=== PATIENT | female | born 1945 | race Caucasian/White ===

== ENCOUNTER → 2016-11-14 | Outpatient (CLI) | payer MEDICARE, OTHER ==
--- NOTE | 2016-11-14 12:54 | MR ---
EXAMINATION TYPE: MR cervical spine wo con DATE OF EXAM: 11/14/2016 12:01 PM COMPARISON: 05/07/2012 HISTORY: Cervical Spondylosis, pain TECHNIQUE: Multiplanar, multisequence images of the cervical spine were acquired. C2-C3: No evidence for degenerative disc disease. No disc bulge/herniation or protrusion. No Canal stenosis. Foramina are patent bilaterally. C3-C4: No focal disc herniation or significant disc bulge is evident. There is disc space narrowing. No spinal canal stenosis present. Bilateral mild foraminal narrowing is present C4-C5: Mild foraminal narrowing is present. Some endplate changes are present. There is narrowing of the disc space. No spinal canal stenosis present. C5-C6: Disc base narrowing is present. Mild narrowing of the bilateral foramen is present. No AP spin al canal stenosis present. Cord contact is not identified. C6-C7: No focal disc herniation or significant disc bulge is evident. No spinal canal stenosis or nicolas ral foraminal stenosis present. There is loss of disc height at this level. C7-T1: Bilateral severe foraminal narrowing from uncovertebral joint hypertrophy is present. Endplate mild spurring is anterior thecal sac flattening. This comes in close approximation with spinal cord. No cord contact stenosis is evident. There is loss of disc height at this level. There is a slight exaggeration of the cervical lordosis at C5-C6. Anterolisthesis of C6 on C7 which a ppears to be a grade 1 is present. Disc uncovering at C6-7 is present. Findings appear stable from th e comparison study. IMPRESSION: 1. Multilevel degenerative disc changes. 2. Multilevel foraminal narrowing, greatest and severe at bilateral C7-T1. 3. Grade 1 spondylolisthesis of C6 anteriorly on C7.
--- NOTE | 2016-11-14 14:49 | XR ---
EXAMINATION TYPE: XR cervical spine limited DATE OF EXAM: 11/14/2016 12:22 PM COMPARISON: NONE HISTORY: Pain TECHNIQUE: 3 views are submitted. Lateral, extension lateral and flexion lateral views submitted. FINDINGS: The odontoid is intact. There are no compression deformities. The prevertebral soft tissue structur es are within normal limits. There is diffuse severe osteopenia. There are severe degenerative disc disease at levels C3-T1. There is a 4 mm anterolisthesis of C6 on C7 and 2 mm retrolisthesis of C4 on C5 and C5 and C6. Facet arthropathy at all levels. Flexion view demonstrates anterolisthesis remaining 4 mm. Extension view is limited assessment due to technique and soft tissue overlap. IMPRESSION: 1. Severe multilevel degenerative disc disease with anterolisthesis of C6 on C7 of 4 mm which appears stable on flexion. Extension view limited.
== END | disposition home or self-care (01) ==
LOC: RADMRIMAIN 11:13
DX: M50.30 Other cervical disc degeneration, unspecified cervical region (principal); M43.12 Spondylolisthesis, cervical region; M48.03 Spinal stenosis, cervicothoracic region; M47.22 Other spondylosis with radiculopathy, cervical region; M47.21 Other spondylosis with radiculopathy, occipito-atlanto-axial region
CPT/HCPCS: 72040; 72141

== ENCOUNTER → 2017-01-10 | Outpatient (CLI) | payer MEDICARE, OTHER ==
--- NOTE | 2017-01-10 16:51 | XR ---
EXAMINATION TYPE: XR cervical spine limited DATE OF EXAM: 01/10/2017 4:38 PM COMPARISON: 11/14/2016 HISTORY: Fusion surgery TECHNIQUE: 4 views FINDINGS: There are rods and screws fusing posteriorly the occipital bone with the upper cervical spi ne to C4 level. There is 8mm anterior subluxation of C6 in relation to C7. There is multilevel spondy losis. IMPRESSION: Posterior fusion surgery. There is a degenerative second-degree C6-7 spondylolisthesis th at is stable compared to last exam.
== END | disposition home or self-care (01) ==
LOC: RADXRMAIN 16:05
DX: M43.12 Spondylolisthesis, cervical region (principal); Z98.1 Arthrodesis status
CPT/HCPCS: 72040

== ENCOUNTER → 2017-04-14 | Outpatient (CLI) | payer MEDICARE, OTHER ==
--- NOTE | 2017-04-14 12:12 | XR ---
Cervical spine HISTORY: Cervical spondylosis, M 47.22 2 views of the cervical spine correlated prior exam 01/10/2017 Posterior fusion changes in the skull base through C5 again noted. Bone mineralization is reduced. Al ignment is stable. Loss of disc height greatest at C3-4, C4-5 and C5-6 with associated spondylosis as on prior exam. Anterolisthesis grade 1 to grade 2 present at C6-7 as on prior exam. The dens is poor ly localized, difficult to exclude a fracture at the base of the dens, previously identified erosions poorly defined.. C7-T1 shows loss of disc height and spondylosis. There is multilevel facet arthrop athy. Vascular calcifications noted incidentally. Lung apices are unchanged. Prevertebral soft tissue s are stable. Postop change noted to the right shoulder on prior exam. IMPRESSION: No interval change is evident. Limitations as described.
== END | disposition home or self-care (01) ==
LOC: RADXRMAIN 09:21
DX: M48.02 Spinal stenosis, cervical region (principal)
CPT/HCPCS: 72040

== ENCOUNTER → 2017-07-28 | Outpatient (CLI) | payer MEDICARE, OTHER ==
--- NOTE | 2017-07-28 15:43 | XR ---
EXAMINATION TYPE: XR cervical spine limited DATE OF EXAM: 07/28/2017 COMPARISON: 04/14/2017 HISTORY: Postop TECHNIQUE: 3 views submitted FINDINGS: Postsurgical changes suggestive of posterior fusion are stable. Severe multilevel degenerat dao disc disease again noted with diffuse osteopenia. posterior spondylosis at the postsurgical levels noted with retrolisthesis of C4 on C5 which appears stable. Calcifications in the soft tissues are likely related carotid artery. There is a stable anterolisthesis of C6 on C7 measuring approximately 4 mm. Severe degenerative disc disease C7-T1. Overall alignment appears stable from the previous exam. IMPRESSION: 1. Stable postsurgical changes with anterolisthesis of C6 on C7 and multilevel degenerative disc dise ase
== END | disposition home or self-care (01) ==
LOC: RADXRMAIN 13:37
DX: M43.12 Spondylolisthesis, cervical region (principal); M50.13 Cervical disc disorder with radiculopathy, cervicothoracic region; Z98.890 Other specified postprocedural states
CPT/HCPCS: 72040

== ENCOUNTER 2017-09-15 10:16 | Inpatient (IN) | payer MEDICARE, OTHER ==
--- NOTE | 2017-09-15 11:37 | ED ---
General Adult HPI - General Chief complaint: Shortness of Breath Stated complaint: DANIEL Time Seen by Provider: 09/15/17 10:30 Source: patient, RN notes reviewed Mode of arrival: wheelchair Limitations: no limitations - History of Present Illness Initial comments: This is a 72-year-old female presents emergency department stating that she has slight valgus and her shortness of breath has been getting worse over the last 3 weeks but today she found it very difficult to walk from her apartment to her car. Patient states she has no chest pain or palpitations. Patient states she had a transesophageal echo within the last week but has not got the results yet. Patient denies any fever chills but she is complaining of an occasional cough. Patient denies any abdominal pain patient denies nausea vomiting diarrhea. Patient denies any lightheadedness dizziness or near syncopal episode. Patient denies any calf pain or leg swelling - Related Data Home Medications Medication Instructions Recorded Confirmed ALPRAZolam [Xanax] 0.25 mg PO Q8H PRN 01/22/14 09/15/17 Ascorbic Acid [Vitamin C] 500 mg PO DAILY 01/22/14 09/15/17 Cholecalciferol [Vitamin D3] 2,000 units PO DAILY 01/22/14 09/15/17 Furosemide [Lasix] 20 mg PO DAILY 06/18/16 09/15/17 Naproxen [Naprosyn] 500 mg PO Q12HR PRN 07/15/16 09/15/17 Albuterol Sulfate [Proair Hfa] 1 - 2 puff INHALATION RT-Q6H PRN 09/15/17 Fluticasone/Salmeterol [Advair Hfa 1 - 2 puff INHALATION RT-BID 09/15/17 230-21 Mcg Inhaler] HYDROcodone/APAP 10-325MG [[place] 1 tab PO Q6H PRN 09/15/17 09/15/17 10-325] Levothyroxine Sodium [Synthroid] 175 mcg PO DAILY 09/15/17 09/15/17 Allergies Allergy/AdvReac Type Severity Reaction Status Date / Time lisinopril Allergy Unknown Verified 09/15/17 11:06 Review of Systems ROS Statement: Those systems with pertinent positive or pertinent negative responses have been documented in the HPI. ROS Other: All systems not noted in ROS Statement are negative. Past Medical History Past Medical History: COPD, Osteoarthritis (OA), Thyroid Disorder Additional Past Medical History / Comment(s): kidney stones, heart murmur ,hx. diverticulitis. History of Any Multi-Drug Resistant Organisms: None Reported Past Surgical History: Hysterectomy, Joint Replacement, Orthopedic Surgery Additional Past Surgical History / Comment(s): ti knees and lt hip replacements , goiter removed 1963, partial thyroidectomy, cataracts removed, REVERSE TOTAL RIGHT SHOULDER; Rotator cuff R shoulder neck sure Past Anesthesia/Blood Transfusion Reactions: No Reported Reaction Past Psychological History: Anxiety Smoking Status: Former smoker Past Alcohol Use History: Occasional Past Drug Use History: None Reported - Past Family History Father Additional Family Medical History / Comment(s): in his 80's of a mi Mother Additional Family Medical History / Comment(s): age 88 in jail pt not sure what she from. hx smoking. General Exam - General Exam Comments Initial Comments: GENERAL: Patient is well-developed and well-nourished. Patient is nontoxic and well- hydrated and is in mild distress. ENT: Neck is soft and supple. No significant lymphadenopathy is noted. Oropharynx is clear. Moist mucous membranes. Neck has full range of motion without eliciting any pain. EYES: The sclera were anicteric and conjunctiva were pink and moist. Extraocular movements were intact and pupils were equal round and reactive to light. Eyelids were unremarkable. PULMONARY: Unlabored respirations. Good breath sounds bilaterally. No audible rales rhonchi or wheezing was noted. CARDIOVASCULAR: There is a regular rate and rhythm patient has a 3/6 murmur ABDOMEN: Soft and nontender with normal bowel sounds. No palpable organomegaly was noted. There is no palpable pulsatile mass. SKIN: Skin is clear with no lesions or rashes and otherwise unremarkable. NEUROLOGIC: Patient is alert and oriented x3. Cranial nerves II through XII are grossly intact. Motor and sensory are also intact. Normal speech, volume and content. Symmetrical smile MUSCULOSKELETAL: Normal extremities with adequate strength and full range of motion. No lower extremity swelling or edema. No calf tenderness. LYMPHATICS: No significant lymphadenopathy is noted PSYCHIATRIC: Normal psychiatric evaluation. Normal interpersonal interactions appears functionally intact in deals appropriately with others. No signs of depression. No signs of anxiety. Limitations: no limitations Course Vital Signs 09/15/17 09/15/17 09/15/17 10:29 11:30 11:54 Temperature 97.2 F L Pulse Rate 106 H 98 Respiratory 18 16 18 Rate Blood Pressure 133/91 109/60 O2 Sat by Pulse 95 100 Oximetry 09/15/17 12:49 Temperature Pulse Rate 98 Respiratory 20 Rate Blood Pressure 114/58 O2 Sat by Pulse 98 Oximetry Medical Decision Making - Medical Decision Making EKG shows sinus tachycardia with occasional PVC at 102 bpm HI interval is 176 QRS is 86 QT interval 394 QTC is 413. Patient's EKG shows no ST segment elevation or depression or T-wave abnormalities noted Chest x-ray showed pulmonary edema. Gave the patient Lasix and Nitropaste. I spoke with Dr. Olson he agreed to admit the patient admitted the patient I wrote admitting orders. I continue the Lasix Nitropaste on the floor. I consult to cardiology. - Lab Data Result diagrams: 09/15/17 11:40 09/15/17 11:40 Lab Results 09/15/17 09/15/17 09/15/17 Range/Units 11:40 11:40 11:40 WBC 9.8 (3.8-10.6) k/uL RBC 3.77 L (3.80-5.40) m/uL Hgb 10.1 L (11.4-16.0) gm/dL Hct 33.0 L (34.0-46.0) % MCV 87.5 (80.0-100.0) fL MCH 26.8 (25.0-35.0) pg MCHC 30.6 L (31.0-37.0) g/dL RDW 15.9 H (11.5-15.5) % Plt Count 283 (150-450) k/uL Neutrophils % 80 % Lymphocytes % 12 % Monocytes % 4 % Eosinophils % 1 % Basophils % 1 % Neutrophils # 7.8 H (1.3-7.7) k/uL Lymphocytes # 1.2 (1.0-4.8) k/uL Monocytes # 0.4 (0-1.0) k/uL Eosinophils # 0.1 (0-0.7) k/uL Basophils # 0.1 (0-0.2) k/uL Hypochromasia Moderate PT (9.0-12.0) sec INR (<1.2) APTT (22.0-30.0) sec Sodium 140 (137-145) mmol/L Potassium 4.3 (3.5-5.1) mmol/L Chloride 104 (98-107) mmol/L Carbon Dioxide 25 (22-30) mmol/L Anion Gap 11 mmol/L BUN 15 (7-17) mg/dL Creatinine 0.52 (0.52-1.04) mg/dL Est GFR (MDRD) Af Amer >60 (>60 ml/min/1.73 sqM) Est GFR (MDRD) Non-Af >60 (>60 ml/min/1.73 sqM) Glucose 121 H (74-99) mg/dL Calcium 8.9 (8.4-10.2) mg/dL Magnesium 2.0 (1.6-2.3) mg/dL Total Bilirubin 0.6 (0.2-1.3) mg/dL AST 52 H (14-36) U/L ALT 59 H (9-52) U/L Alkaline Phosphatase 99 (38-126) U/L Total Creatine Kinase 57 (30-135) U/L CK-MB (CK-2) 1.4 (0.0-2.4) ng/mL CK-MB (CK-2) Rel Index 2.5 Troponin I 0.033 (0.000-0.034) ng/mL Total Protein 6.4 (6.3-8.2) g/dL Albumin 3.5 (3.5-5.0) g/dL 09/15/17 Range/Units 11:40 WBC (3.8-10.6) k/uL RBC (3.80-5.40) m/uL Hgb (11.4-16.0) gm/dL Hct (34.0-46.0) % MCV (80.0-100.0) fL MCH (25.0-35.0) pg MCHC (31.0-37.0) g/dL RDW (11.5-15.5) % Plt Count (150-450) k/uL Neutrophils % % Lymphocytes % % Monocytes % % Eosinophils % % Basophils % % Neutrophils # (1.3-7.7) k/uL Lymphocytes # (1.0-4.8) k/uL Monocytes # (0-1.0) k/uL Eosinophils # (0-0.7) k/uL Basophils # (0-0.2) k/uL Hypochromasia PT 10.5 (9.0-12.0) sec INR 1.1 (<1.2) APTT 22.6 (22.0-30.0) sec Sodium (137-145) mmol/L Potassium (3.5-5.1) mmol/L Chloride (98-107) mmol/L Carbon Dioxide (22-30) mmol/L Anion Gap mmol/L BUN (7-17) mg/dL Creatinine (0.52-1.04) mg/dL Est GFR (MDRD) Af Amer (>60 ml/min/1.73 sqM) Est GFR (MDRD) Non-Af (>60 ml/min/1.73 sqM) Glucose (74-99) mg/dL Calcium (8.4-10.2) mg/dL Magnesium (1.6-2.3) mg/dL Total Bilirubin (0.2-1.3) mg/dL AST (14-36) U/L ALT (9-52) U/L Alkaline Phosphatase (38-126) U/L Total Creatine Kinase (30-135) U/L CK-MB (CK-2) (0.0-2.4) ng/mL CK-MB (CK-2) Rel Index Troponin I (0.000-0.034) ng/mL Total Protein (6.3-8.2) g/dL Albumin (3.5-5.0) g/dL Critical Care Time Critical Care Time: Yes Total Critical Care Time: 35 Disposition Clinical Impression: Acute pulmonary edema Disposition: ADMITTED IP TO THIS HOSP Referrals: Olya Olson MD [Primary Care Provider] - 1-2 days Time of Disposition: 12:52
[2017-09-15 11:51] LABS: Basophils # (A) 0.1 k/uL (0-0.2); Basophils % (A) 1 %; Eosinophils # (A) 0.1 k/uL (0-0.7); Eosinophils % (A) 1 %; HGB 10.1 gm/dL (11.4-16.0); Hypochromasia Moderate; Lymphocytes # (A) 1.2 k/uL (1.0-4.8); Lymphocytes % (A) 12 %; MCH 26.8 pg (25.0-35.0); MCHC 30.6 g/dL (31.0-37.0); MCV 87.5 fL (80.0-100.0); Mean Platelet Volume 7.8; Monocytes # (A) 0.4 k/uL (0-1.0); Monocytes % (A) 4 %; Neutrophils # (A) 7.8 k/uL (1.3-7.7); Neutrophils % (A) 80 %; Platelet Count 283 k/uL (150-450); RBC 3.77 m/uL (3.80-5.40); RDW 15.9 % (11.5-15.5); WBC 9.8 k/uL (3.8-10.6)
[2017-09-15 12:03] LABS: ALT 59 U/L (9-52); AST 52 U/L (14-36); Albumin 3.5 g/dL (3.5-5.0); Alkaline Phosphatase 99 U/L (38-126); Anion Gap 11 mmol/L; Blood Urea Nitrogen 15 mg/dL (7-17); Calcium 8.9 mg/dL (8.4-10.2); Carbon Dioxide 25 mmol/L (22-30); Chloride 104 mmol/L (98-107); Glucose 121 mg/dL (74-99); Potassium 4.3 mmol/L (3.5-5.1); Sodium 140 mmol/L (137-145); Total Bilirubin 0.6 mg/dL (0.2-1.3); Total Protein 6.4 g/dL (6.3-8.2)
--- NOTE | 2017-09-15 12:14 | XR ---
EXAMINATION TYPE: XR chest 2V DATE OF EXAM: 09/15/2017 COMPARISON: 11/24/2014 HISTORY: Shortness of breath TECHNIQUE: Frontal and lateral views of the chest are obtained. FINDINGS: Scattered senescent parenchymal changes noted. Hyperinflation compatible with COPD. There is pulmonary venous congestion with cardiomegaly. Small pleural effusions noted. Mild scattered interstitial edema. Mediastinal structures are stable and grossly unremarkable. No evidence for hilar prominence. Degenerative changes dorsal spine. IMPRESSION: 1. Findings felt to reflect mild congestive failure.
[2017-09-15 12:25] LABS: INR 1.1 (<1.2); Partial Thromboplastin Time 22.6 sec (22.0-30.0); Prothrombin Time 10.5 sec (9.0-12.0)
[2017-09-15 12:33] LABS: Creatine Kinase MB 1.4 ng/mL (0.0-2.4); Troponin I 0.033 ng/mL (0.000-0.034)
[2017-09-15] MEDS ORDERED: FUROSEMIDE 10 MG/ML 2 ML VIAL IV STA (12:40)
[2017-09-15] MEDS ORDERED: NITROGLYCERIN OINT 1 INCH/GM PACKET TOPICAL STA (13:02)
[2017-09-15] MEDS ORDERED: NAPROXEN 250 MG TAB PO PRN (15:15)
[2017-09-15] MEDS ORDERED: ALPRAZolam 0.25 MG TAB PO PRN (15:15)
[2017-09-15] MEDS ORDERED: ALBUTEROL NEBULIZED 2.5 MG/3 ML INHALATION PRN (15:15)
--- NOTE | 2017-09-15 15:27 | P.HPIM ---
History of Present Illness H&P Date: 09/15/17 Chief Complaint: Worsening shortness of breath This is a 72-year-old female with a known past medical history of rheumatoid arthritis, COPD, hypothyroidism, diverticulosis and leaky heart valves. Patient presents to the emergency room with worsening shortness of breath. Patient reports having shortness of breath for the past 3 weeks and then with the last 2 days the shortness of breath has continued to worsen. She reports for walking from her house to her car she became severely short of breath dizzy and lightheaded said down in the car. Had to call her from the car to help her. Patient reports missing 2 days of her Lasix because of a busy schedule. Also she recently had a MATTHEW done out of [facility] by Dr. Vaughn this past and is unaware of the results. She was told that she has leaky heart valves and that was widely MATTHEW was done. Her brought her into the emergency room for further evaluation. Chest x-ray completed with findings that felt to reflect mild congestive heart failure. BNP was elevated in the 0. Patient started on Lasix 20 mg IV every 8 hours. EKG had shown sinus tachycardia with occasional PVCs heart rate of 102. Cardiology has been consulted. Patient reports a dry cough. She denies any chest pain, nausea or vomiting, fever, sweats, bowel movement changes or urinary symptoms. The patient does report occasional chills. Patient is requiring 2 L nasal cannula. She does not usually use oxygen at home. Patient was seen and examined in the emergency room Review of Systems Please refer to HPI otherwise unremarkable Past Medical History Past Medical History: COPD, Renal Disease, Rheumatoid Arthritis (RA), Thyroid Disorder Additional Past Medical History / Comment(s): Nephrolithiasis, rheumatoid arthritis several joints, cardiac murmur-recent MATTHEW and is to f/u with Dr. Vaughn on 09/17/17 for results, diverticular dx, recent UTI/completed ABX. History of Any Multi-Drug Resistant Organisms: None Reported Past Surgical History: Hysterectomy, Joint Replacement, Orthopedic Surgery Additional Past Surgical History / Comment(s): Recent MATTHEW, ti total knees arthroplasty,lt hip arthroplasty, goiter removed 1962, partial thyroidectomy, cataracts removed with lens implants, REVERSE TOTAL RIGHT SHOULDER; Rotator cuff R shoulder, cervical fusion/injections, colonoscopy. Past Anesthesia/Blood Transfusion Reactions: No Reported Reaction Smoking Status: Former smoker - Past Family History Father Additional Family Medical History / Comment(s): in his 80's of a mi Mother Additional Family Medical History / Comment(s): age 88 in detention pt not sure what she from. hx smoking. Medications and Allergies Home Medications Medication Instructions Recorded Confirmed Type ALPRAZolam [Xanax] 0.25 mg PO Q8H PRN 01/22/14 09/15/17 History Ascorbic Acid [Vitamin C] 500 mg PO DAILY 01/22/14 09/15/17 History Cholecalciferol [Vitamin D3] 2,000 units PO DAILY 01/22/14 09/15/17 History Furosemide [Lasix] 20 mg PO DAILY 06/18/16 09/15/17 History Naproxen [Naprosyn] 500 mg PO Q12HR PRN 07/15/16 09/15/17 History Albuterol Sulfate [Proair Hfa] 1 - 2 puff INHALATION RT-Q6H PRN 09/15/17 History Fluticasone/Salmeterol [Advair Hfa 1 - 2 puff INHALATION RT-BID 09/15/17 History 230-21 Mcg Inhaler] HYDROcodone/APAP 10-325MG [[place] 1 tab PO Q6H PRN 09/15/17 09/15/17 History 10-325] Levothyroxine Sodium [Synthroid] 175 mcg PO DAILY 09/15/17 09/15/17 History Allergies Allergy/AdvReac Type Severity Reaction Status Date / Time lisinopril Allergy Unknown Verified 09/15/17 11:06 Physical Exam Vitals: Vital Signs Temp Pulse Resp BP Pulse Ox 09/15/17 15:14 98.1 F 93 16 114/54 98 09/15/17 14:14 96 20 115/63 100 09/15/17 13:54 98 112/53 09/15/17 12:49 98 20 114/58 98 09/15/17 11:54 18 09/15/17 11:30 98 16 109/60 100 09/15/17 10:29 97.2 F L 106 H 18 133/91 95 Intake and Output 09/15/17 09/15/17 09/15/17 06:59 14:59 22:59 Other: Weight 61.235 kg Patient Weight 09/16/17 06:59 Weight 61.235 kg Head normocephalic Neck supple Lungs crackles at bases bilaterally Heart murmur present regular rate and rhythm S1-S2, no rub or gallop Abdomen is soft nontender nondistended positive bowel sounds no hepatosplenomegaly Extremities edema present bilaterally of the lower extremities Neuro alert and orientated to 3 Results CBC & Chem 7: 09/15/17 11:40 09/15/17 11:40 Labs: Abnormal Lab Results - Last 24 Hours (Table) 09/15/17 09/15/17 Range/Units 11:40 11:40 RBC 3.77 L (3.80-5.40) m/uL Hgb 10.1 L (11.4-16.0) gm/dL Hct 33.0 L (34.0-46.0) % MCHC 30.6 L (31.0-37.0) g/dL RDW 15.9 H (11.5-15.5) % Neutrophils # 7.8 H (1.3-7.7) k/uL Glucose 121 H (74-99) mg/dL AST 52 H (14-36) U/L ALT 59 H (9-52) U/L Thrombosis Risk Factor Assmnt - Choose All That Apply Any of the Below Risk Factors Present?: Yes Each Factor Represents 1 point: Abnormal pulmonary function (COPD), Obesity ( BMI >25) Other Risk Factors: Yes Each Risk Factor Represents 2 Points: Age 61-74 years Other congenital or acquired thrombophilia - If yes, enter type in comment: No Thrombosis Risk Factor Assessment Total Risk Factor Score: 4 Thrombosis Risk Factor Assessment Level: Moderate Risk Assessment and Plan Assessment: 1. Acute CHF exacerbation: Patient started on Lasix 20 mg IV every 8 hours. Cardiology consulted. Elevated BNP and chest x-ray showing mild congestive heart failure 2. Cardiac murmur followed by Dr. Vaughn out of [facility]. Patient had a recent MATTHEW on 3. COPD: Stable continue inhalers. No evidence of exacerbation 4. History of rheumatoid arthritis 5. Hypothyroidism continue Synthroid GI prophylaxis Pepcid and DVT prophylaxis subcu heparin Time with Patient: Greater than 30 (Greater than 50% of the total time spent in counseling and coordination of care.I performed an examination of the patient and discussed their management with the physician Visual Journalist. I have reviewed the Physician Visual Journalist's notes and agree with the documented findings and plan of care)
[2017-09-15] MEDS: NITROGLYCERIN OINT 1 INCH/GM PACKET TOPICAL SCH ×2 (18:00→23:39)
[2017-09-15] MEDS: HYDROcodone/APAP 10-325MG 1 EACH TAB PO PRN (18:48)
[2017-09-15] MEDS: SYMBICORT 160-4.5 MCG INHALER INHALATION SCH (20:25)
[2017-09-15] MEDS: FUROSEMIDE 10 MG/ML 4 ML VIAL IV SCH (21:06)
[2017-09-15] MEDS: HEPARIN SODIUM,PORCINE 5,000 UNIT/ML 1 ML VIAL SQ SCH (21:06)
[2017-09-16] MEDS: HYDROcodone/APAP 10-325MG 1 EACH TAB PO PRN ×4 (03:49→23:41)
[2017-09-16] MEDS: FUROSEMIDE 10 MG/ML 4 ML VIAL IV SCH (05:46)
[2017-09-16] MEDS: LEVOTHYROXINE 100 MCG TAB PO SCH (05:47)
[2017-09-16] MEDS: LEVOTHYROXINE 75 MCG TAB PO SCH (05:47)
[2017-09-16 06:13] LABS: Anisocytosis Slight; Basophils % (A) 1 %; Eosinophils # (A) 0.3 k/uL (0-0.7); Eosinophils % (A) 5 %; HCT 33.1 % (34.0-46.0); HGB 9.9 gm/dL (11.4-16.0); Hypochromasia Moderate; Lymphocytes # (A) 1.7 k/uL (1.0-4.8); Lymphocytes % (A) 25 %; MCH 26.4 pg (25.0-35.0); MCV 87.8 fL (80.0-100.0); Mean Platelet Volume 8.4; Monocytes # (A) 0.4 k/uL (0-1.0); Monocytes % (A) 6 %; Neutrophils # (A) 4.1 k/uL (1.3-7.7); Neutrophils % (A) 60 %; Platelet Count 268 k/uL (150-450); RBC 3.76 m/uL (3.80-5.40); RDW 17.3 % (11.5-15.5); WBC 6.8 k/uL (3.8-10.6)
[2017-09-16 06:39] LABS: ALT 53 U/L (9-52); AST 29 U/L (14-36); Albumin 3.2 g/dL (3.5-5.0); Alkaline Phosphatase 88 U/L (38-126); Anion Gap 9 mmol/L; Blood Urea Nitrogen 18 mg/dL (7-17); Calcium 8.8 mg/dL (8.4-10.2); Carbon Dioxide 29 mmol/L (22-30); Chloride 103 mmol/L (98-107); Glucose 103 mg/dL (74-99); Potassium 3.8 mmol/L (3.5-5.1); Sodium 141 mmol/L (137-145); Total Bilirubin 0.5 mg/dL (0.2-1.3)
[2017-09-16] MEDS: SYMBICORT 160-4.5 MCG INHALER INHALATION SCH ×2 (07:58→21:23)
--- NOTE | 2017-09-16 08:14 | P.CRDCN ---
History of Present Illness Consult date: 09/16/17 Requesting physician: Olya Olson Consult reason: congestive heart failure Chief complaint: Shortness of breath History of present illness: This is a pleasant 72-year-old female with history of COPD, asthma, rheumatoid arthritis, valvular heart disease, she follows with Dr. Vaughn in [place]. She states that on September 02 she had an echocardiogram performed , and on of last week she underwent a transesophageal echocardiographic study by Dr. Vaughn at [facility]. According to the patient she has been getting progressively more and more short of breath, she notices it mostly with exertion. She did have mild increase in peripheral edema recently as well. Patient also states that she has not been taking her Lasix as prescribed at home. She presents to the hospital She states her breathing got so bad she felt like she was going to pass out. At pressure on arrival here 133/90, heart rate 106, 95% on room air. EKG shows a sinus tachycardia with occasional PVC. Chest x-ray reflects mild congestive heart failure. Laboratory data was reviewed, hemoglobin on arrival 10.1, 9.9 this morning. White blood cell count 6.8. Platelet count is 268, sodium 141, potassium 3.8, BUN 18, creatinine 0.6. AST 52 on arrival, 29 this morning, ALT on arrival 59, 53 this morning. Troponin 0.033. BNP 4410. Patient was initiated on IV Lasix in the emergency room, weight it is down 2 kg today. At the time of my examination this morning, patient is sitting up in bed, states that her breathing is stable however just getting up to the commode she is quite short of breath. Past Medical History Past Medical History: COPD, Renal Disease, Rheumatoid Arthritis (RA), Thyroid Disorder Additional Past Medical History / Comment(s): Nephrolithiasis, rheumatoid arthritis several joints, cardiac murmur-recent MATTHEW and is to f/u with Dr. Vaughn on 09/17/17 for results, diverticular dx, recent UTI/completed ABX. History of Any Multi-Drug Resistant Organisms: None Reported Past Surgical History: Hysterectomy, Joint Replacement, Orthopedic Surgery Additional Past Surgical History / Comment(s): Recent MATTHEW, ti total knees arthroplasty,lt hip arthroplasty, goiter removed 1962, partial thyroidectomy, cataracts removed with lens implants, REVERSE TOTAL RIGHT SHOULDER; Rotator cuff R shoulder, cervical fusion/injections, colonoscopy. Past Anesthesia/Blood Transfusion Reactions: No Reported Reaction Smoking Status: Former smoker - Past Family History Father Additional Family Medical History / Comment(s): in his 80's of a mi Mother Additional Family Medical History / Comment(s): age 88 in correction pt not sure what she from. hx smoking. Medications and Allergies Home Medications Medication Instructions Recorded Confirmed Type ALPRAZolam [Xanax] 0.25 mg PO Q8H PRN 01/22/14 09/15/17 History Ascorbic Acid [Vitamin C] 500 mg PO DAILY 01/22/14 09/15/17 History Cholecalciferol [Vitamin D3] 2,000 units PO DAILY 01/22/14 09/15/17 History Furosemide [Lasix] 20 mg PO DAILY 06/18/16 09/15/17 History Naproxen [Naprosyn] 500 mg PO Q12HR PRN 07/15/16 09/15/17 History Albuterol Sulfate [Proair Hfa] 1 - 2 puff INHALATION RT-Q6H PRN 09/15/17 History Fluticasone/Salmeterol [Advair Hfa 1 - 2 puff INHALATION RT-BID 09/15/17 History 230-21 Mcg Inhaler] HYDROcodone/APAP 10-325MG [[place] 1 tab PO Q6H PRN 09/15/17 09/15/17 History 10-325] Levothyroxine Sodium [Synthroid] 175 mcg PO DAILY 09/15/17 09/15/17 History Allergies Allergy/AdvReac Type Severity Reaction Status Date / Time lisinopril Allergy Unknown Verified 09/15/17 11:06 Physical Exam Vitals: Vital Signs Temp Pulse Pulse Resp BP BP Pulse Ox 09/16/17 03:54 97.4 F L 93 16 117/56 98 09/16/17 00:00 94 18 86/54 96 09/15/17 20:00 98.7 F 94 18 102/58 96 09/15/17 18:19 97.1 F L 97 18 122/57 96 09/15/17 17:56 98.6 F 98 18 117/55 98 09/15/17 16:43 103 H 98/52 96 09/15/17 15:14 98.1 F 93 16 114/54 98 09/15/17 14:14 96 20 115/63 100 09/15/17 13:54 98 112/53 09/15/17 12:49 98 20 114/58 98 09/15/17 11:54 18 09/15/17 11:30 98 16 109/60 100 09/15/17 10:29 97.2 F L 106 H 18 133/91 95 Intake and Output 09/15/17 09/16/17 09/16/17 22:59 06:59 14:59 Other: # Voids 0 3 Weight 59.3 kg PHYSICAL EXAMINATION: HEENT: Head is atraumatic, normocephalic. Pupils equal, round. Neck is supple. There is no elevated jugular venous pressure. HEART EXAMINATION: Heart S1 S2 1 systolic ejection murmur is heard. CHEST EXAMINATION: Circumflex clear with mild diminished air entry to bilateral bases. ABDOMEN: Soft, nontender. Bowel sounds are heard. No organomegaly noted. EXTREMITIES:[ 2+ peripheral pulses with trace evidence of peripheral edema NEUROLOGIC patient is awake, alert and oriented -3. . Results 09/16/17 05:44 09/16/17 05:44 Cardiac Enzymes 09/15/17 09/15/17 09/16/17 Range/Units 11:40 11:40 05:44 AST 52 H 29 (14-36) U/L CK-MB (CK-2) 1.4 (0.0-2.4) ng/mL Troponin I 0.033 (0.000-0.034) ng/mL Coagulation 09/15/17 Range/Units 11:40 PT 10.5 (9.0-12.0) sec APTT 22.6 (22.0-30.0) sec CBC 09/15/17 09/16/17 Range/Units 11:40 05:44 WBC 9.8 6.8 (3.8-10.6) k/uL RBC 3.77 L 3.76 L (3.80-5.40) m/uL Hgb 10.1 L 9.9 L (11.4-16.0) gm/dL Hct 33.0 L 33.1 L (34.0-46.0) % Plt Count 283 268 (150-450) k/uL Comprehensive Metabolic Panel 09/15/17 09/16/17 Range/Units 11:40 05:44 Sodium 140 141 (137-145) mmol/L Potassium 4.3 3.8 (3.5-5.1) mmol/L Chloride 104 103 (98-107) mmol/L Carbon Dioxide 25 29 (22-30) mmol/L BUN 15 18 H (7-17) mg/dL Creatinine 0.52 0.60 (0.52-1.04) mg/dL Glucose 121 H 103 H (74-99) mg/dL Calcium 8.9 8.8 (8.4-10.2) mg/dL AST 52 H 29 (14-36) U/L ALT 59 H 53 H (9-52) U/L Alkaline Phosphatase 99 88 (38-126) U/L Total Protein 6.4 6.0 L (6.3-8.2) g/dL Albumin 3.5 3.2 L (3.5-5.0) g/dL Current Medications Generic Name Dose Route Start Last Admin Trade Name Freq PRN Reason Stop Dose Admin Hydrocodone Bitart/Acetaminophen 1 each 09/15/17 15:15 09/16/17 03:49 [place] 10 PO 1 each Q6H PRN Administration Moderate Pain Albuterol Sulfate 2.5 mg 09/15/17 15:15 Ventolin Nebulized INHALATION RT-Q6H PRN Shortness Of Breath Alprazolam 0.25 mg 09/15/17 15:15 Xanax PO Q8H PRN Anxiety Ascorbic Acid 500 mg 09/16/17 09:00 Vitamin C PO DAILY [facility] Budesonide/Formoterol Fumarate 2 puff 09/15/17 20:00 09/16/17 07:58 Symbicort 160-4.5 Mcg Inhaler INHALATION 2 puff RT-BID CARLOS Administration Cholecalciferol 2,000 unit 09/16/17 09:00 Vitamin D3 PO DAILY CARLOS Famotidine 20 mg 09/16/17 09:00 Pepcid PO DAILY CARLOS Furosemide 20 mg 09/15/17 21:00 09/16/17 05:46 Lasix IV 20 mg Q8H CARLOS Administration Heparin Sodium (Porcine) 5,000 unit 09/15/17 21:00 09/15/17 21:06 Heparin SQ 5,000 unit Q12HR CARLOS Administration Levothyroxine Sodium 100 mcg 09/16/17 06:30 09/16/17 05:47 Synthroid PO 100 mcg DAILY@0630 CARLOS Administration Levothyroxine Sodium 75 mcg 09/16/17 06:30 09/16/17 05:47 Synthroid PO 75 mcg DAILY@0630 CARLOS Administration Naproxen 500 mg 09/15/17 15:15 Naprosyn PO Q12HR PRN Mild Pain Nitroglycerin 1 inch 09/15/17 18:00 09/15/17 23:39 Nitro-Bid Oint TOPICAL Not Given QID CARLOS Intake and Output 09/15/17 09/16/17 09/16/17 22:59 06:59 14:59 Other: # Voids 0 3 Weight 59.3 kg 09/16/17 05:44 09/16/17 05:44 EKG Interpretations (text) EKG shows a sinus tachycardia with occasional PVC. Assessment and Plan Plan: Assessment and plan #1 Congestive heart failure, LV function unknown. Patient is currently on IV Lasix. #2 valvular heart disease, patient follows with Dr. Vaughn in [place]. She did have an echocardiogram with Doppler study performed on September 02, patient also states she underwent a MATTHEW on of last week, we will obtain records of both of these. #3 asthma #4 COPD #5 rheumatoid arthritis #6 hypothyroidism status post thyroidectomy Plan We will obtain copy of echocardiogram and MATTHEW which were recently performed by the patient's viscosity inspector at [facility]. Continue current dose of IV Lasix. Further recommendations to follow. DNP note has been reviewed, I agree with a documented findings and plan of care. Patient was seen and examined.
[2017-09-16] MEDS: NITROGLYCERIN OINT 1 INCH/GM PACKET TOPICAL SCH (08:48)
[2017-09-16] MEDS: CHOLECALCIFEROL 1,000 UNIT TAB PO SCH (08:48)
[2017-09-16] MEDS: ASCORBIC ACID 500 MG TAB PO SCH (08:48)
[2017-09-16] MEDS: FAMOTIDINE 20 MG TAB PO SCH (08:48)
[2017-09-16] MEDS: HEPARIN SODIUM,PORCINE 5,000 UNIT/ML 1 ML VIAL SQ SCH ×2 (08:48→20:29)
--- NOTE | 2017-09-16 09:35 | P.PN ---
Progress Note - Text This is an addendum to the dictated cardiology consultation. The patient has a known history of valvular disease who presents with symptoms progressive dyspnea. She underwent a transesophageal echocardiogram recently but the results are pending. She has no history of CAD and has underwent cardiac catheterization about [address] Vaughn and that was unremarkable. Yesterday she became quite dyspneic with minimal activity with dizziness. She has been under a lot of stress recently. Her physical examination showed few crackles in the lungs and she has a diastolic murmur at the aortic site with a holosystolic murmur in the apex and no evidence of peripheral edema. The patient will receive intravenous diuresis for 24 hours, I would add to her regimen a low dose losartan. I will try to obtain the results were prior workup , of note that she has been told in the past that she had a weak muscle of the heart. Depending on her progress further recommendations will be made. Thank you for this consult we will follow with you.
[2017-09-16] MEDS: LOSARTAN 25 MG TAB PO SCH (10:06)
[2017-09-16 10:26] VITALS: BMI 25.5
--- NOTE | 2017-09-16 10:41 | P.PN ---
Subjective Progress Note Date: 09/16/17 This is a 72-year-old female with a known past medical history of rheumatoid arthritis, COPD, hypothyroidism, diverticulosis and leaky heart valves. Patient presents to the emergency room with worsening shortness of breath. Patient reports having shortness of breath for the past 3 weeks and then with the last 2 days the shortness of breath has continued to worsen. She reports for walking from her house to her car she became severely short of breath dizzy and lightheaded said down in the car. Had to call her from the car to help her. Patient reports missing 2 days of her Lasix because of a busy schedule. Also she recently had a MATTHEW done out of [facility] by Dr. Vaughn this past and is unaware of the results. She was told that she has leaky heart valves and that was widely MATTHEW was done. Her brought her into the emergency room for further evaluation. Chest x-ray completed with findings that felt to reflect mild congestive heart failure. BNP was elevated in the 4410. Patient started on Lasix 20 mg IV every 8 hours. EKG had shown sinus tachycardia with occasional PVCs heart rate of 102. Cardiology has been consulted. Patient reports a dry cough. She denies any chest pain, nausea or vomiting, fever, sweats, bowel movement changes or urinary symptoms. The patient does report occasional chills. Patient is requiring 2 L nasal cannula. She does not usually use oxygen at home. Patient was seen and examined in the emergency room 09/16/2017 patient still having some shortness of breath with activity. Reported some improvement with the IV Lasix. She has been seen by cardiology. They're trying to obtain records from [facility]. Patient recently had MATTHEW and echo completed. She denies any chest pain, nausea or vomiting, bowel movement changes or any with urination Objective - Vital Signs Vital signs: Vital Signs Temp 98.2 F 09/16/17 08:00 Pulse 91 09/16/17 08:00 Resp 16 09/16/17 08:00 BP 105/47 09/16/17 08:00 Pulse Ox 98 09/16/17 08:01 Intake & Output 09/15/17 09/16/17 09/16/17 18:59 06:59 18:59 Intake Total 358 Output Total 600 Balance -242 Weight 61.235 kg 59.3 kg 59.3 kg Intake: Oral 358 Output: Urine 600 Other: # Voids 0 3 - Exam Head normocephalic Neck supple Lungs crackles at bases Heart regular rate and rhythm S1-S2, no rub or gallop Abdomen is soft nontender nondistended positive bowel sounds no hepatosplenomegaly Extremities no edema Neuro alert and orientated to 3 - Labs CBC & Chem 7: 09/16/17 05:44 09/16/17 05:44 Labs: Abnormal Lab Results - Last 24 Hours (Table) 09/15/17 09/15/17 09/16/17 Range/Units 11:40 11:40 05:44 RBC 3.77 L 3.76 L (3.80-5.40) m/uL Hgb 10.1 L 9.9 L (11.4-16.0) gm/dL Hct 33.0 L 33.1 L (34.0-46.0) % MCHC 30.6 L 30.0 L (31.0-37.0) g/dL RDW 15.9 H 17.3 H (11.5-15.5) % Neutrophils # 7.8 H (1.3-7.7) k/uL BUN (7-17) mg/dL Glucose 121 H (74-99) mg/dL AST 52 H (14-36) U/L ALT 59 H (9-52) U/L Total Protein (6.3-8.2) g/dL Albumin (3.5-5.0) g/dL 09/16/17 Range/Units 05:44 RBC (3.80-5.40) m/uL Hgb (11.4-16.0) gm/dL Hct (34.0-46.0) % MCHC (31.0-37.0) g/dL RDW (11.5-15.5) % Neutrophils # (1.3-7.7) k/uL BUN 18 H (7-17) mg/dL Glucose 103 H (74-99) mg/dL AST (14-36) U/L ALT 53 H (9-52) U/L Total Protein 6.0 L (6.3-8.2) g/dL Albumin 3.2 L (3.5-5.0) g/dL Assessment and Plan Assessment: 1. Acute CHF exacerbation: Radiology has decreased Lasix 20 mg IV every 12 hours. And they've also added losartan. Patient has an PATRICIO inhibitor ALLERGY. Elevated BNP and chest x-ray showing mild congestive heart failure 2. Valvular heart disease followed by Dr. Vaughn out of [facility]. Awaiting records from [facility] regarding her MATTHEW and echo 3. COPD: Stable continue inhalers. No evidence of exacerbation 4. History of rheumatoid arthritis 5. Hypothyroidism continue Synthroid GI prophylaxis Pepcid and DVT prophylaxis subcu heparin I performed an examination of the patient and discussed their management with the physician Director Metabolism. I have reviewed the Physician Director Metabolism's notes and agree with the documented findings and plan of care
--- NOTE | 2017-09-16 12:10 | P.CNPUL ---
History of Present Illness Consult date: 09/16/17 Requesting physician: Olya Olson Reason for consult: dyspnea Chief complaint: Worsening shortness of breath with exertion History of present illness: This is a very pleasant 72-year-old female patient is a history of osteoarthritis, hypothyroid, diverticulitis, anxiety. 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 She had recently undergone a MATTHEW last week and was due to follow-up with him for the results. She also has a history of chronic obstructive pulmonary disease and follows with Dr. Doyle in our office. Maintained on Advair and pro-air. He is on it here to the emergency room yesterday morning after developing worsening shortness of breath and significant dyspnea on minimal exertion. X- ray revealed evidence of mild congestive heart failure. ProBNP 4410. The negative 1. Hemoglobin 10.1. No leukocytosis. His been afebrile. Maintaining good O2 saturations in the high 90s on 2 L/m per nasal cannula. Hemodynamically stable. She is seen today on the selective care unit in consultation. She is awake and alert in no acute distress. She is breathing easier today as compared to yesterday. Received Lasix 20 mg IV push every 12 hours. She is currently in a negative balance. She is down 2 kg. Review of Systems 14 point review of system was conducted. All negative other than as mentioned in HPI. Past Medical History Past Medical History: COPD, Renal Disease, Rheumatoid Arthritis (RA), Thyroid Disorder Additional Past Medical History / Comment(s): Nephrolithiasis, rheumatoid arthritis several joints, cardiac murmur-recent MATTHEW and is to f/u with Dr. Vaughn on 09/17/17 for results, diverticular dx, recent UTI/completed ABX. History of Any Multi-Drug Resistant Organisms: None Reported Past Surgical History: Hysterectomy, Joint Replacement, Orthopedic Surgery Additional Past Surgical History / Comment(s): Recent MATTHEW, ti total knees arthroplasty,lt hip arthroplasty, goiter removed 1962, partial thyroidectomy, cataracts removed with lens implants, REVERSE TOTAL RIGHT SHOULDER; Rotator cuff R shoulder, cervical fusion/injections, colonoscopy. Past Anesthesia/Blood Transfusion Reactions: No Reported Reaction Smoking Status: Former smoker - Past Family History Father Additional Family Medical History / Comment(s): in his 80's of a mi Mother Additional Family Medical History / Comment(s): age 88 in senior living pt not sure what she from. hx smoking. Medications and Allergies Home Medications Medication Instructions Recorded Confirmed Type ALPRAZolam [Xanax] 0.25 mg PO Q8H PRN 01/22/14 09/15/17 History Ascorbic Acid [Vitamin C] 500 mg PO DAILY 01/22/14 09/15/17 History Cholecalciferol [Vitamin D3] 2,000 units PO DAILY 01/22/14 09/15/17 History Furosemide [Lasix] 20 mg PO DAILY 06/18/16 09/15/17 History Naproxen [Naprosyn] 500 mg PO Q12HR PRN 07/15/16 09/15/17 History Albuterol Sulfate [Proair Hfa] 1 - 2 puff INHALATION RT-Q6H PRN 09/15/17 History Fluticasone/Salmeterol [Advair Hfa 1 - 2 puff INHALATION RT-BID 09/15/17 History 230-21 Mcg Inhaler] HYDROcodone/APAP 10-325MG [[place] 1 tab PO Q6H PRN 09/15/17 09/15/17 History 10-325] Levothyroxine Sodium [Synthroid] 175 mcg PO DAILY 09/15/17 09/15/17 History Allergies Allergy/AdvReac Type Severity Reaction Status Date / Time lisinopril Allergy Unknown Verified 09/15/17 11:06 Physical Exam Vitals: Vital Signs Temp Pulse Pulse Resp BP BP Pulse Ox 09/16/17 08:01 98 09/16/17 08:00 98.2 F 91 16 105/47 98 09/16/17 03:54 97.4 F L 93 16 117/56 98 09/16/17 00:00 94 18 86/54 96 09/15/17 20:00 98.7 F 94 18 102/58 96 09/15/17 18:19 97.1 F L 97 18 122/57 96 09/15/17 17:56 98.6 F 98 18 117/55 98 09/15/17 16:43 103 H 98/52 96 09/15/17 15:14 98.1 F 93 16 114/54 98 09/15/17 14:14 96 20 115/63 100 09/15/17 13:54 98 112/53 09/15/17 12:49 98 20 114/58 98 09/15/17 11:54 18 Intake and Output 09/15/17 09/16/17 09/16/17 22:59 06:59 14:59 Intake Total 358 Output Total 600 Balance -242 Intake: Oral 358 Output: Urine 600 Other: # Voids 0 3 Weight 59.3 kg 59.3 kg Patient Weight 09/17/17 06:59 Weight 59.3 kg GENERAL EXAM: Alert, active, comfortable in no apparent distress. HEAD: Normocephalic. EYES: Normal reaction of pupils, equal size. NOSE: Clear with pink turbinates. THROAT: No erythema or exudates. NECK: No masses, no JVD. CHEST: No chest wall deformity. LUNGS: Equal air entry with faint crackles in the posterior bases. CVS: S1 and S2 normal with an audible murmur, regular rhythm. ABDOMEN: No hepatosplenomegaly, normal bowel sounds, no guarding or rigidity. SPINE: No scoliosis or deformity SKIN: No rashes CENTRAL NERVOUS SYSTEM: No focal deficits, tone is normal in all 4 extremities. EXTREMITIES: There is no peripheral edema. No clubbing, no cyanosis. Peripheral pulses are intact. Results - Laboratory Findings CBC and BMP: 09/16/17 05:44 09/16/17 05:44 PT/INR, D-dimer PT 10.5 sec (9.0-12.0) 09/15/17 11:40 INR 1.1 (<1.2) 09/15/17 11:40 Abnormal lab findings: Abnormal Labs 09/15/17 09/15/17 09/16/17 11:40 11:40 05:44 RBC 3.77 L 3.76 L Hgb 10.1 L 9.9 L Hct 33.0 L 33.1 L MCHC 30.6 L 30.0 L RDW 15.9 H 17.3 H Neutrophils # 7.8 H BUN Glucose 121 H AST 52 H ALT 59 H Total Protein Albumin 09/16/17 05:44 RBC Hgb Hct MCHC RDW Neutrophils # BUN 18 H Glucose 103 H AST ALT 53 H Total Protein 6.0 L Albumin 3.2 L - Diagnostic Findings Chest x-ray: image reviewed Assessment and Plan Assessment: Impression: #1 Acute exacerbation of diastolic congestive heart failure. #2 Acute hypoxic respiratory failure secondary to above. #3 Valvular heart disease. #4 Chronic obstructive pulmonary disease, currently inactive and stable. #5 Hypothyroidism with previous partial thyroidectomy. #6 Arthritis. #7 Anxiety. Plan: The patient was seen and evaluated by Dr. Doyle. Her chest x-ray and labs were reviewed. We'll continue with diuretics. We'll continue with her usual pulmonary medications including Symbicort and albuterol inhalations. Heparin for DVT prophylaxis. Pepcid for GI prophylaxis. We will increase her activity as tolerated. Recent MATTHEW results are being obtained from Dr. Vaughn's office. We'll continue to follow and make further recommendations based on her clinical status. I, the cosigning physician, performed a history & physical examination of the patient. Lungs sounds are faint crackles in the bilateral posterior bases. Maintaining good O2 saturations in the 90s on 2 L/m per nasal cannula. I discussed the assessment and plan of care with my nurse practitioner, Laverne Caal. I attest to the above consultation as dictated by her. Time with Patient: Greater than 30
[2017-09-16] MEDS ORDERED: POTASSIUM CHLORIDE ER 20 MEQ TAB.ER PO SCH (15:00)
[2017-09-16 16:32] LABS: Iron Saturation 7.35 (12.00-45.00)
[2017-09-16] MEDS: FUROSEMIDE 10 MG/ML 2 ML VIAL IV SCH (20:30)
[2017-09-17 06:22] LABS: HCT 31.7 % (34.0-46.0); HGB 9.8 gm/dL (11.4-16.0); Hypochromasia Moderate; MCH 27.2 pg (25.0-35.0); MCHC 30.9 g/dL (31.0-37.0); Mean Platelet Volume 7.5; Platelet Count 284 k/uL (150-450); RDW 15.9 % (11.5-15.5); WBC 5.9 k/uL (3.8-10.6)
[2017-09-17] MEDS: LEVOTHYROXINE 75 MCG TAB PO SCH (06:26)
[2017-09-17] MEDS: LEVOTHYROXINE 100 MCG TAB PO SCH (06:26)
[2017-09-17 06:34] LABS: ALT 46 U/L (9-52); AST 22 U/L (14-36); Albumin 3.2 g/dL (3.5-5.0); Alkaline Phosphatase 81 U/L (38-126); Anion Gap 8 mmol/L; Blood Urea Nitrogen 28 mg/dL (7-17); Calcium 8.9 mg/dL (8.4-10.2); Carbon Dioxide 29 mmol/L (22-30); Chloride 104 mmol/L (98-107); Glucose 97 mg/dL (74-99); Potassium 4.4 mmol/L (3.5-5.1); Sodium 141 mmol/L (137-145); Total Bilirubin 0.4 mg/dL (0.2-1.3)
[2017-09-17] MEDS: SYMBICORT 160-4.5 MCG INHALER INHALATION SCH ×2 (07:38→20:13)
[2017-09-17 08:12] LABS: Basophils # (M) 0.06 k/uL (0-0.2); Eosinophils # (M) 0.35 k/uL (0-0.7); Lymphocytes # (M) 2.12 k/uL (1.0-4.8); Monocytes # (M) 0.71 k/uL (0-1.0); Neutrophils # (M) 2.66 k/uL (1.3-7.7); Neutrophils % (M) 45 %; Nucleated Red Blood Cells 0 /100 WBC (0-0); Total Cells Counted 100
[2017-09-17] MEDS: ASCORBIC ACID 500 MG TAB PO SCH (08:21)
[2017-09-17] MEDS: CHOLECALCIFEROL 1,000 UNIT TAB PO SCH (08:21)
[2017-09-17] MEDS: FAMOTIDINE 20 MG TAB PO SCH (08:22)
[2017-09-17] MEDS: LOSARTAN 25 MG TAB PO SCH (08:22)
[2017-09-17] MEDS: HYDROcodone/APAP 10-325MG 1 EACH TAB PO PRN ×2 (08:22→23:32)
[2017-09-17] MEDS: FUROSEMIDE 10 MG/ML 2 ML VIAL IV SCH (08:23)
[2017-09-17] MEDS: HEPARIN SODIUM,PORCINE 5,000 UNIT/ML 1 ML VIAL SQ SCH ×2 (08:23→20:31)
--- NOTE | 2017-09-17 10:49 | P.PN ---
Subjective Progress Note Date: 09/17/17 This is a 72-year-old female with a known past medical history of rheumatoid arthritis, COPD, hypothyroidism, diverticulosis and leaky heart valves. Patient presents to the emergency room with worsening shortness of breath. Patient reports having shortness of breath for the past 3 weeks and then with the last 2 days the shortness of breath has continued to worsen. She reports for walking from her house to her car she became severely short of breath dizzy and lightheaded said down in the car. Had to call her from the car to help her. Patient reports missing 2 days of her Lasix because of a busy schedule. Also she recently had a MATTHEW done out of [facility] by Dr. Vaughn this past and is unaware of the results. She was told that she has leaky heart valves and that was widely MATTHEW was done. Her brought her into the emergency room for further evaluation. Chest x-ray completed with findings that felt to reflect mild congestive heart failure. BNP was elevated in the 4410. Patient started on Lasix 20 mg IV every 8 hours. EKG had shown sinus tachycardia with occasional PVCs heart rate of 102. Cardiology has been consulted. Patient reports a dry cough. She denies any chest pain, nausea or vomiting, fever, sweats, bowel movement changes or urinary symptoms. The patient does report occasional chills. Patient is requiring 2 L nasal cannula. She does not usually use oxygen at home. Patient was seen and examined in the emergency room 09/16/2017 patient still having some shortness of breath with activity. Reported some improvement with the IV Lasix. She has been seen by cardiology. They're trying to obtain records from [facility]. Patient recently had MATTHEW and echo completed. She denies any chest pain, nausea or vomiting, bowel movement changes or any with urination On 09/17/2017 patient is alert and oriented still complaining of shortness of breath with activity she denies any chest pain no palpitation no shortness of breath at rest no cough no nausea or vomiting no abdominal pain no diarrhea or constipation and no urinary symptoms Objective - Vital Signs Vital signs: Vital Signs Temp 97.7 F 09/17/17 08:00 Pulse 99 09/17/17 08:00 Resp 18 09/17/17 08:00 BP 103/61 09/17/17 08:00 Pulse Ox 94 L 09/17/17 08:00 Intake & Output 09/16/17 09/17/17 09/17/17 18:59 06:59 18:59 Intake Total 538 Output Total 600 Balance -62 Weight 59.3 kg 59.4 kg Intake: Oral 538 Output: Urine 600 Other: # Voids 1 - Exam In general patient is alert and oriented 3 no apparent distress HEENT head normocephalic and atraumatic Neck is supple no JVD no goiter no lymphadenopathy Chest exam reveals a few scattered crackles no wheezing Cardiac exam reveals regular heart sounds no gallops with 2/6 pansystolic murmur best heard in the left sternal border Abdomen is soft nontender no organomegaly Extremity exam reveals minimal edema - Labs CBC & Chem 7: 09/17/17 05:56 09/17/17 05:56 Labs: Abnormal Lab Results - Last 24 Hours (Table) 09/16/17 09/17/17 09/17/17 Range/Units 05:44 05:56 05:56 RBC 3.60 L (3.80-5.40) m/uL Hgb 9.8 L (11.4-16.0) gm/dL Hct 31.7 L (34.0-46.0) % MCHC 30.9 L (31.0-37.0) g/dL RDW 15.9 H (11.5-15.5) % BUN 28 H (7-17) mg/dL Iron 25 L (50-170) ug/dL Iron Saturation 7.35 L (12.00-45.00) Total Protein 6.0 L (6.3-8.2) g/dL Albumin 3.2 L (3.5-5.0) g/dL Microbiology - Last 24 Hours (Table) 09/15/17 11:40 Blood Culture - Preliminary Blood No Growth after 24 hours Assessment and Plan Plan: 1. Acute CHF exacerbation: cardiology has decreased Lasix 20 mg IV every 12 hours. And they've also added losartan. Patient has an PATRICIO inhibitor ALLERGY. Elevated BNP and chest x-ray showing mild congestive heart failure 2. Valvular heart disease followed by Dr. Vaughn out of [facility]. records from [facility] regarding her MATTHEW and echo, are available in chart at this time patient has moderate aortic regurgitation, and moderate to severe mitral regurgitation 3. COPD: Stable continue inhalers. No evidence of exacerbation 4. History of rheumatoid arthritis 5. Hypothyroidism continue Synthroid GI prophylaxis Pepcid and DVT prophylaxis subcu heparin
--- NOTE | 2017-09-17 11:35 | P.PN ---
Subjective Progress Note Date: 09/17/17 Principal diagnosis: This is a very pleasant 72-year-old female patient is a history of osteoarthritis, hypothyroid, diverticulitis, anxiety. Says a history of valvular heart disease and follows with Dr. Rafael Vaughn as her digital specialist. She had recently undergone a MATTHEW last week and was due to follow-up with him for the results. She also has a history of chronic obstructive pulmonary disease and follows with Dr. Doyle in our office. Maintained on Advair and pro-air. He is on it here to the emergency room yesterday morning after developing worsening shortness of breath and significant dyspnea on minimal exertion. X- ray revealed evidence of mild congestive heart failure. ProBNP 4410. The negative 1. Hemoglobin 10.1. No leukocytosis. His been afebrile. Maintaining good O2 saturations in the high 90s on 2 L/m per nasal cannula. Hemodynamically stable. She is seen today on the selective care unit in consultation. She is awake and alert in no acute distress. She is breathing easier today as compared to yesterday. Received Lasix 20 mg IV push every 12 hours. She is currently in a negative balance. She is down 2 kg. Patient is seen again today 09/17/2017 in follow-up on the selective care unit. She is awake and alert in no acute distress. She is breathing quite a bit easier today as compared to yesterday. No significant cough or congestion. No chills or night sweats. She's been up ambulating in the echols without any respiratory distress. He is maintaining O2 saturations in the mid 90s on room air. She's been afebrile. Hemodynamically stable. Blood culture reveals no growth. No leukocytosis. Hemoglobin 9.8. Creatinine 0.72. She continues on Lasix 20 mg IV push every 12 hours. She is diuresing well. Objective - Vital Signs Vital signs: Vital Signs Temp 97.7 F 09/17/17 08:00 Pulse 99 09/17/17 08:00 Resp 18 09/17/17 08:00 BP 103/61 09/17/17 08:00 Pulse Ox 94 L 09/17/17 08:00 Intake & Output 09/16/17 09/17/17 09/17/17 18:59 06:59 18:59 Intake Total 538 180 Output Total 600 Balance -62 180 Weight 59.3 kg 59.4 kg Intake: Oral 538 180 Output: Urine 600 Other: # Voids 1 - Exam GENERAL EXAM: Alert, active, comfortable in no apparent distress. HEAD: Normocephalic. EYES: Normal reaction of pupils, equal size. NOSE: Clear with pink turbinates. THROAT: No erythema or exudates. NECK: No masses, no JVD. CHEST: No chest wall deformity. LUNGS: Equal air entry with faint crackles in the posterior bases. CVS: S1 and S2 normal with an audible murmur, regular rhythm. ABDOMEN: No hepatosplenomegaly, normal bowel sounds, no guarding or rigidity. SPINE: No scoliosis or deformity SKIN: No rashes CENTRAL NERVOUS SYSTEM: No focal deficits, tone is normal in all 4 extremities. EXTREMITIES: There is no peripheral edema. No clubbing, no cyanosis. Peripheral pulses are intact. - Labs CBC & Chem 7: 09/17/17 05:56 09/17/17 05:56 Labs: Abnormal Lab Results - Last 24 Hours (Table) 09/16/17 09/17/17 09/17/17 Range/Units 05:44 05:56 05:56 RBC 3.60 L (3.80-5.40) m/uL Hgb 9.8 L (11.4-16.0) gm/dL Hct 31.7 L (34.0-46.0) % MCHC 30.9 L (31.0-37.0) g/dL RDW 15.9 H (11.5-15.5) % BUN 28 H (7-17) mg/dL Iron 25 L (50-170) ug/dL Iron Saturation 7.35 L (12.00-45.00) Total Protein 6.0 L (6.3-8.2) g/dL Albumin 3.2 L (3.5-5.0) g/dL Microbiology - Last 24 Hours (Table) 09/15/17 11:40 Blood Culture - Preliminary Blood No Growth after 24 hours Assessment and Plan Assessment: Impression: #1 Acute exacerbation of diastolic congestive heart failure. #2 Acute hypoxic respiratory failure secondary to above. #3 Valvular heart disease. #4 Chronic obstructive pulmonary disease, currently inactive and stable. #5 Hypothyroidism with previous partial thyroidectomy. #6 Arthritis. #7 Anxiety. Plan: The patient was seen and evaluated by Dr. Doyle. Patient is stable from the pulmonary standpoint. We'll continue with diuretics. We'll continue with her usual pulmonary medications including Symbicort and albuterol inhalations. Heparin for DVT prophylaxis. Pepcid for GI prophylaxis. We will increase her activity as tolerated. We'll continue to follow and make further recommendations based on her clinical status. I, the cosigning physician, performed a history & physical examination of the patient. Lungs sounds are faint crackles in the bilateral posterior bases. Maintaining good O2 saturations in the 90s on room air. I discussed the assessment and plan of care with my nurse practitioner, Laverne Caal. I attest to the above consultation as dictated by her.
--- NOTE | 2017-09-17 15:19 | P.PN ---
Subjective Progress Note Date: 09/17/17 This is a pleasant 72-year-old female with history of COPD, asthma, rheumatoid arthritis, valvular heart disease, she follows with Dr. Vaughn in [place]. She states that on September 02 she had an echocardiogram performed , and on of last week she underwent a transesophageal echocardiographic study by Dr. Vaughn at [facility]. According to the patient she has been getting progressively more and more short of breath, she notices it mostly with exertion. She did have mild increase in peripheral edema recently as well. Patient also states that she has not been taking her Lasix as prescribed at home. She presents to the hospital She states her breathing got so bad she felt like she was going to pass out. At pressure on arrival here 133/90, heart rate 106, 95% on room air. EKG shows a sinus tachycardia with occasional PVC. Chest x-ray reflects mild congestive heart failure. Laboratory data was reviewed, hemoglobin on arrival 10.1, 9.9 this morning. White blood cell count 6.8. Platelet count is 268, sodium 141, potassium 3.8, BUN 18, creatinine 0.6. AST 52 on arrival, 29 this morning, ALT on arrival 59, 53 this morning. Troponin 0.033. BNP 4410. Patient was initiated on IV Lasix in the emergency room, weight it is down 2 kg today. At the time of my examination this morning, patient is sitting up in bed, states that her breathing is stable however just getting up to the commode she is quite short of breath. 09/17/2017 Patient seen and examined this morning, overall feeling significantly better today. Echocardiogram and transesophageal echocardiographic study were reviewed , patient does have severe AI as well as mitral regurgitation. Hemodynamically stable today. From cardiology's perspective, she may be able to be discharged once cleared by her primary care doctor. She has been advised to follow-up with her environmental protection forester post discharge. Objective - Vital Signs Vital signs: Vital Signs Temp 97.6 F 09/17/17 12:00 Pulse 74 09/17/17 12:00 Resp 16 09/17/17 12:00 BP 101/59 09/17/17 12:00 Pulse Ox 99 09/17/17 12:00 Intake & Output 09/16/17 09/17/17 09/17/17 18:59 06:59 18:59 Intake Total 538 360 Output Total 600 1200 Balance -62 -840 Weight 59.3 kg 59.4 kg Intake: Oral 538 360 Output: Urine 600 1200 Other: # Voids 1 - Exam PHYSICAL EXAMINATION: HEENT: Head is atraumatic, normocephalic. Pupils equal, round. Neck is supple. There is no elevated jugular venous pressure. HEART EXAMINATION: Heart S1 S2 holosystolic murmur is heard. CHEST EXAMINATION: Lungs are clear with mild diminished air entry to bilateral bases. ABDOMEN: Soft, nontender. Bowel sounds are heard. No organomegaly noted. EXTREMITIES: 2+ peripheral pulses with trace evidence of peripheral edema NEUROLOGIC patient is awake, alert and oriented -3. - Labs CBC & Chem 7: 09/17/17 05:56 09/17/17 05:56 Labs: Abnormal Lab Results - Last 24 Hours (Table) 09/16/17 09/17/17 09/17/17 Range/Units 05:44 05:56 05:56 RBC 3.60 L (3.80-5.40) m/uL Hgb 9.8 L (11.4-16.0) gm/dL Hct 31.7 L (34.0-46.0) % MCHC 30.9 L (31.0-37.0) g/dL RDW 15.9 H (11.5-15.5) % BUN 28 H (7-17) mg/dL Iron 25 L (50-170) ug/dL Iron Saturation 7.35 L (12.00-45.00) Total Protein 6.0 L (6.3-8.2) g/dL Albumin 3.2 L (3.5-5.0) g/dL Microbiology - Last 24 Hours (Table) 09/15/17 11:40 Blood Culture - Preliminary Blood No Growth after 48 hours Assessment and Plan Plan: Assessment and plan #1 Congestive heart failure, LV function unknown. Patient is currently on IV Lasix. #2 valvular heart disease, patient follows with Dr. Vaughn in [place]. She did have an echocardiogram with Doppler study performed on September 02, patient also states she underwent a MATTHEW on of last week which reveal sever AI, and MR #3 asthma #4 COPD #5 rheumatoid arthritis #6 hypothyroidism status post thyroidectomy Plan From cardiology's perspective she may be able to be discharged home once cleared by the primary. She's been instructed to follow-up with her environmental protection forester post discharge. DNP note has been reviewed, I agree with a documented findings and plan of care. Patient was seen and examined.
[2017-09-17] MEDS: METOPROLOL TARTRATE 25 MG TAB PO SCH (18:32)
[2017-09-18 04:09] VITALS: TEMP 97
[2017-09-18] MEDS: LEVOTHYROXINE 100 MCG TAB PO SCH (06:00)
[2017-09-18] MEDS: LEVOTHYROXINE 75 MCG TAB PO SCH (06:00)
[2017-09-18 06:28] LABS: ALT 42 U/L (9-52); AST 18 U/L (14-36); Albumin 3.2 g/dL (3.5-5.0); Alkaline Phosphatase 77 U/L (38-126); Anion Gap 8 mmol/L; Blood Urea Nitrogen 15 mg/dL (7-17); Carbon Dioxide 31 mmol/L (22-30); Chloride 102 mmol/L (98-107); Glucose 109 mg/dL (74-99); Potassium 4.3 mmol/L (3.5-5.1); Sodium 141 mmol/L (137-145); Total Bilirubin 0.4 mg/dL (0.2-1.3)
[2017-09-18 06:49] LABS: Anisocytosis Slight; Basophils % (A) 1 %; Eosinophils # (A) 0.4 k/uL (0-0.7); Eosinophils % (A) 6 %; HCT 32.8 % (34.0-46.0); HGB 9.9 gm/dL (11.4-16.0); Hypochromasia Marked; Lymphocytes # (A) 1.6 k/uL (1.0-4.8); Lymphocytes % (A) 28 %; MCH 26.2 pg (25.0-35.0); MCHC 30.2 g/dL (31.0-37.0); MCV 86.7 fL (80.0-100.0); Mean Platelet Volume 8.3; Monocytes # (A) 0.4 k/uL (0-1.0); Monocytes % (A) 6 %; Neutrophils # (A) 3.1 k/uL (1.3-7.7); Neutrophils % (A) 55 %; Platelet Count 279 k/uL (150-450); RBC 3.79 m/uL (3.80-5.40); RDW 16.8 % (11.5-15.5); WBC 5.7 k/uL (3.8-10.6)
[2017-09-18] MEDS: SYMBICORT 160-4.5 MCG INHALER INHALATION SCH (07:33)
[2017-09-18] MEDS ORDERED: LOSARTAN 25 MG TAB PO SCH (09:00)
[2017-09-18] MEDS ORDERED: FUROSEMIDE 20 MG TAB PO SCH (09:00)
[2017-09-18] MEDS ORDERED: FERROUS SULFATE 325 MG TAB PO SCH (09:00)
--- NOTE | 2017-09-18 10:03 | P.PN ---
Subjective Progress Note Date: 09/18/17 Principal diagnosis: Acute exacerbation of diastolic congestive heart failure. This is a very pleasant 72-year-old female patient is a history of osteoarthritis, hypothyroid, diverticulitis, anxiety. Says a history of valvular heart disease and follows with Dr. Rafael Vaughn as her tilt tray driver. She had recently undergone a MATTHEW last week and was due to follow-up with him for the results. She also has a history of chronic obstructive pulmonary disease and follows with Dr. Doyle in our office. Maintained on Advair and pro-air. He is on it here to the emergency room yesterday morning after developing worsening shortness of breath and significant dyspnea on minimal exertion. X- ray revealed evidence of mild congestive heart failure. ProBNP 4410. The negative 1. Hemoglobin 10.1. No leukocytosis. His been afebrile. Maintaining good O2 saturations in the high 90s on 2 L/m per nasal cannula. Hemodynamically stable. She is seen today on the selective care unit in consultation. She is awake and alert in no acute distress. She is breathing easier today as compared to yesterday. Received Lasix 20 mg IV push every 12 hours. She is currently in a negative balance. She is down 2 kg. Patient is seen again today 09/17/2017 in follow-up on the selective care unit. She is awake and alert in no acute distress. She is breathing quite a bit easier today as compared to yesterday. No significant cough or congestion. No chills or night sweats. She's been up ambulating in the echols without any respiratory distress. He is maintaining O2 saturations in the mid 90s on room air. She's been afebrile. Hemodynamically stable. Blood culture reveals no growth. No leukocytosis. Hemoglobin 9.8. Creatinine 0.72. She continues on Lasix 20 mg IV push every 12 hours. She is diuresing well. The patient is seen again today 09/18/2017 in follow-up on the selective care unit. She is up ambulating in the hallway. She denies any shortness of breath , cough or congestion. No worsening shortness of breath. She is maintaining good O2 saturations in the 90s on room air. She did have an episode of ventricular tachycardia this morning. Cardiology is on the case as well. No chest pain, palpitations lightheadedness or dizziness. Objective - Vital Signs Vital signs: Vital Signs Temp 97.0 F L 09/18/17 03:40 Pulse 74 09/18/17 03:40 Resp 18 09/18/17 03:40 BP 106/50 09/18/17 03:40 Pulse Ox 98 09/18/17 07:35 Intake & Output 09/17/17 09/18/17 09/18/17 18:59 06:59 18:59 Intake Total 360 300 Output Total 1200 Balance -840 300 Weight 59.3 kg Intake: Oral 360 300 Output: Urine 1200 Other: Voiding Method Toilet # Voids 2 - Exam GENERAL EXAM: Alert, active, comfortable in no apparent distress. HEAD: Normocephalic. EYES: Normal reaction of pupils, equal size. NOSE: Clear with pink turbinates. THROAT: No erythema or exudates. NECK: No masses, no JVD. CHEST: No chest wall deformity. LUNGS: Equal air entry with faint crackles in the posterior bases. CVS: S1 and S2 normal with an audible murmur, regular rhythm. ABDOMEN: No hepatosplenomegaly, normal bowel sounds, no guarding or rigidity. SPINE: No scoliosis or deformity SKIN: No rashes CENTRAL NERVOUS SYSTEM: No focal deficits, tone is normal in all 4 extremities. EXTREMITIES: There is no peripheral edema. No clubbing, no cyanosis. Peripheral pulses are intact. - Labs CBC & Chem 7: 09/18/17 05:48 09/18/17 05:48 Labs: Abnormal Lab Results - Last 24 Hours (Table) 09/18/17 09/18/17 Range/Units 05:48 05:48 RBC 3.79 L (3.80-5.40) m/uL Hgb 9.9 L (11.4-16.0) gm/dL Hct 32.8 L (34.0-46.0) % MCHC 30.2 L (31.0-37.0) g/dL RDW 16.8 H (11.5-15.5) % Carbon Dioxide 31 H (22-30) mmol/L Glucose 109 H (74-99) mg/dL Total Protein 6.0 L (6.3-8.2) g/dL Albumin 3.2 L (3.5-5.0) g/dL Microbiology - Last 24 Hours (Table) 09/15/17 11:40 Blood Culture - Preliminary Blood No Growth after 48 hours Assessment and Plan Assessment: Impression: #1 Acute exacerbation of diastolic congestive heart failure. #2 Acute hypoxic respiratory failure secondary to above. #3 Valvular heart disease. #4 Chronic obstructive pulmonary disease, currently inactive and stable. #5 Hypothyroidism with previous partial thyroidectomy. #6 Arthritis. #7 Anxiety. Plan: The patient was seen and evaluated by Dr. Doyle. Patient is stable from the pulmonary standpoint. She can be discharged once cleared by cardiology. We'll continue with diuretics. We'll continue with her usual pulmonary medications including Symbicort and albuterol inhalations. Heparin for DVT prophylaxis. Pepcid for GI prophylaxis. We will increase her activity as tolerated. We'll continue to follow and make further recommendations based on her clinical status. I, the cosigning physician, performed a history & physical examination of the patient. Lungs sounds are faint crackles in the bilateral posterior bases. Maintaining good O2 saturations in the 90s on room air. I discussed the assessment and plan of care with my nurse practitioner, Laverne Caal. I attest to the above consultation as dictated by her.
[2017-09-18] MEDS: ASCORBIC ACID 500 MG TAB PO SCH (10:05)
[2017-09-18] MEDS: CHOLECALCIFEROL 1,000 UNIT TAB PO SCH (10:05)
[2017-09-18] MEDS: HEPARIN SODIUM,PORCINE 5,000 UNIT/ML 1 ML VIAL SQ SCH (10:06)
[2017-09-18] MEDS: FAMOTIDINE 20 MG TAB PO SCH (10:06)
[2017-09-18] MEDS: METOPROLOL TARTRATE 25 MG TAB PO SCH (10:07)
--- NOTE | 2017-09-18 10:37 | P.PN ---
Subjective Progress Note Date: 09/18/17 This is a pleasant 72-year-old female with history of COPD, asthma, rheumatoid arthritis, valvular heart disease, she follows with Dr. Vaughn in [place]. She states that on September 02 she had an echocardiogram performed , and on of last week she underwent a transesophageal echocardiographic study by Dr. Vaughn at [facility]. According to the patient she has been getting progressively more and more short of breath, she notices it mostly with exertion. She did have mild increase in peripheral edema recently as well. Patient also states that she has not been taking her Lasix as prescribed at home. She presents to the hospital She states her breathing got so bad she felt like she was going to pass out. At pressure on arrival here 133/90, heart rate 106, 95% on room air. EKG shows a sinus tachycardia with occasional PVC. Chest x-ray reflects mild congestive heart failure. Laboratory data was reviewed, hemoglobin on arrival 10.1, 9.9 this morning. White blood cell count 6.8. Platelet count is 268, sodium 141, potassium 3.8, BUN 18, creatinine 0.6. AST 52 on arrival, 29 this morning, ALT on arrival 59, 53 this morning. Troponin 0.033. BNP 4410. Patient was initiated on IV Lasix in the emergency room, weight it is down 2 kg today. At the time of my examination this morning, patient is sitting up in bed, states that her breathing is stable however just getting up to the commode she is quite short of breath. 09/17/2017 Patient seen and examined this morning, overall feeling significantly better today. Echocardiogram and transesophageal echocardiographic study were reviewed , patient does have severe AI as well as mitral regurgitation. Hemodynamically stable today. From cardiology's perspective, she may be able to be discharged once cleared by her primary care doctor. She has been advised to follow-up with her primary school teacher post discharge. 09/18/2017 Seen and examined this morning, feeling well, denies any chest pain, no difficulty in breathing, no palpitations. Up ambulating without any difficulty Objective - Vital Signs Vital signs: Vital Signs Temp 97.0 F L 09/18/17 03:40 Pulse 74 09/18/17 03:40 Resp 18 09/18/17 03:40 BP 106/50 09/18/17 03:40 Pulse Ox 98 09/18/17 07:35 Intake & Output 09/17/17 09/18/17 09/18/17 18:59 06:59 18:59 Intake Total 360 300 Output Total 1200 Balance -840 300 Weight 59.3 kg Intake: Oral 360 300 Output: Urine 1200 Other: Voiding Method Toilet # Voids 2 - Exam PHYSICAL EXAMINATION: HEENT: Head is atraumatic, normocephalic. Pupils equal, round. Neck is supple. There is no elevated jugular venous pressure. HEART EXAMINATION: Heart S1 S2 holosystolic murmur is heard. CHEST EXAMINATION: Lungs are clear with mild diminished air entry to bilateral bases. ABDOMEN: Soft, nontender. Bowel sounds are heard. No organomegaly noted. EXTREMITIES: 2+ peripheral pulses with trace evidence of peripheral edema NEUROLOGIC patient is awake, alert and oriented -3. - Labs CBC & Chem 7: 09/18/17 05:48 09/18/17 05:48 Labs: Abnormal Lab Results - Last 24 Hours (Table) 09/18/17 09/18/17 Range/Units 05:48 05:48 RBC 3.79 L (3.80-5.40) m/uL Hgb 9.9 L (11.4-16.0) gm/dL Hct 32.8 L (34.0-46.0) % MCHC 30.2 L (31.0-37.0) g/dL RDW 16.8 H (11.5-15.5) % Carbon Dioxide 31 H (22-30) mmol/L Glucose 109 H (74-99) mg/dL Total Protein 6.0 L (6.3-8.2) g/dL Albumin 3.2 L (3.5-5.0) g/dL Microbiology - Last 24 Hours (Table) 09/15/17 11:40 Blood Culture - Preliminary Blood No Growth after 48 hours Assessment and Plan Plan: Assessment and plan #1 Congestive heart failure, LV function unknown. Patient is currently on IV Lasix. #2 valvular heart disease, patient follows with Dr. Vaughn in [place]. She did have an echocardiogram with Doppler study performed on September 02, patient also states she underwent a MATTHEW on of last week which reveal sever AI, and MR #3 asthma #4 COPD #5 rheumatoid arthritis #6 hypothyroidism status post thyroidectomy #7 nonsustained ventricular tachycardia Plan From cardiology's perspective she may be able to be discharged home once cleared by the primary. She's been instructed to follow-up with her primary school teacher, Dr Vaughn post discharge. DNP note has been reviewed, I agree with a documented findings and plan of care. Patient was seen and examined.
[2017-09-18 10:50] VITALS: BP 108/57; PULSE 90; RESP 20
--- NOTE | 2017-09-18 12:04 | P.DS ---
Providers Date of admission: 09/15/17 12:53 Expected date of discharge: 09/18/17 Attending physician: Olya Olson Consults: 09/15/17 12:53 Consult Physician Routine Consulting Provider: [facility] Consult Reason/Comments: Acute pulmonary edema Do you want consulting provider notified?: Yes Primary care physician: Olya [facility] Course: Discharge diagnosis 1. Acute systolic CHF exacerbation: IV Lasix discontinued by cardiology. Restarted on oral Lasix 20 mg daily. And they've also added losartan during this admission. Patient has an PATRICIO inhibitor ALLERGY. Elevated BNP and chest x -ray showing mild congestive heart failure. Echo from [facility] showed an EF of 40-45% 2. Valvular heart disease followed by Dr. Vaughn out of [facility]. records from [facility] regarding her MATTHEW and echo, are available in chart at this time patient has moderate aortic regurgitation, and moderate to severe mitral regurgitation 3. COPD: Stable continue inhalers. No evidence of exacerbation 4. History of rheumatoid arthritis 5. Hypothyroidism continue Synthroid 6. Nonsustained ventricle tachycardia. Cardiology added metoprolol 25 mg daily. 7. Iron deficiency anemia: start ferrous sulfate 325 mg twice a day Hospital course This is a 72-year-old female with a known past medical history of rheumatoid arthritis, COPD, hypothyroidism, diverticulosis and leaky heart valves. Patient presents to the emergency room with worsening shortness of breath. Patient reports having shortness of breath for the past 3 weeks and then with the last 2 days the shortness of breath has continued to worsen. She reports for walking from her house to her car she became severely short of breath dizzy and lightheaded said down in the car. Had to call her from the car to help her. Patient reports missing 2 days of her Lasix because of a busy schedule. Also she recently had a MATTHEW done out of [facility] by Dr. Vaughn this past and is unaware of the results. She was told that she has leaky heart valves and that was widely MATTHEW was done. Her brought her into the emergency room for further evaluation. Chest x-ray completed with findings that felt to reflect mild congestive heart failure. BNP was elevated in the 4410. Patient started on Lasix 20 mg IV every 8 hours. EKG had shown sinus tachycardia with occasional PVCs heart rate of 102. Cardiology has been consulted. Patient reports a dry cough. She denies any chest pain, nausea or vomiting, fever, sweats, bowel movement changes or urinary symptoms. The patient does report occasional chills. Patient is requiring 2 L nasal cannula. She does not usually use oxygen at home. Patient was seen and examined in the emergency room. Patient's shortness of breath has improved with the IV Lasix. Cardiology discontinued the IV Lasix yesterday. Her oral Lasix 20 mg daily was restarted today. Patient has been off of the nasal cannula. She has been up and ambulating without shortness of breath. Cardiology and pulmonary services have cleared her for discharge. Patient was treated for an acute systolic CHF exacerbation. Cardiology did add losartan but cut the dose down to 12.5 mg daily to avoid hypotension due to the addition of the metoprolol. Could not add PATRICIO inhibitor due to ALLERGY. Patient was also placed on metoprolol 25 mg daily for one episode of nonsustained ventricle tachycardia. Cardiology is cleared patient for discharge. Patient needs to follow-up with Dr. Vaughn out of [facility]. Also note that patient had evidence of iron deficiency anemia. Hemoglobin 9.9 at discharge. Iron level low at 25. She'll be placed on ferrous sulfate 325 mg twice a day Patient is medically stable for discharge. Please refer to chart for any further details I performed an examination of the patient and discussed their management with the physician Insurance Adjuster. I have reviewed the Physician Insurance Adjuster's notes and agree with the documented findings and plan of care Patient Condition at Discharge: Stable Plan - Discharge Summary Discharge Rx Participant: No New Discharge Prescriptions: New Ferrous Sulfate [Iron (65 MG Elemental)] 325 mg PO BID #60 tab Losartan [Cozaar] 12.5 mg PO DAILY #30 tab Metoprolol Tartrate [Lopressor] 25 mg PO DAILY #30 tab Continue Cholecalciferol [Vitamin D3] 2,000 units PO DAILY Ascorbic Acid [Vitamin C] 500 mg PO DAILY ALPRAZolam [Xanax] 0.25 mg PO Q8H PRN PRN Reason: Anxiety Furosemide [Lasix] 20 mg PO DAILY Naproxen [Naprosyn] 500 mg PO Q12HR PRN PRN Reason: Pain Fluticasone/Salmeterol [Advair Hfa 230-21 Mcg Inhaler] 1 - 2 puff INHALATION RT-BID Albuterol Sulfate [Proair Hfa] 1 - 2 puff INHALATION RT-Q6H PRN PRN Reason: Shortness Of Breath Levothyroxine Sodium [Synthroid] 175 mcg PO DAILY HYDROcodone/APAP 10-325MG [Macon 10-325] 1 tab PO Q6H PRN PRN Reason: Pain Discharge Medication List ALPRAZolam [Xanax] 0.25 mg PO Q8H PRN 01/22/14 [History] Ascorbic Acid [Vitamin C] 500 mg PO DAILY 01/22/14 [History] Cholecalciferol [Vitamin D3] 2,000 units PO DAILY 01/22/14 [History] Furosemide [Lasix] 20 mg PO DAILY 06/18/16 [History] Naproxen [Naprosyn] 500 mg PO Q12HR PRN 07/15/16 [History] Albuterol Sulfate [Proair Hfa] 1 - 2 puff INHALATION RT-Q6H PRN 09/15/17 [ History] Fluticasone/Salmeterol [Advair Hfa 230-21 Mcg Inhaler] 1 - 2 puff INHALATION RT- BID 09/15/17 [History] HYDROcodone/APAP 10-325MG [Macon 10-325] 1 tab PO Q6H PRN 09/15/17 [History] Levothyroxine Sodium [Synthroid] 175 mcg PO DAILY 09/15/17 [History] Ferrous Sulfate [Iron (65 MG Elemental)] 325 mg PO BID #60 tab 09/18/17 [Rx] Losartan [Cozaar] 12.5 mg PO DAILY #30 tab 09/18/17 [Rx] Metoprolol Tartrate [Lopressor] 25 mg PO DAILY #30 tab 09/18/17 [Rx] Follow up Appointment(s)/Referral(s): Olya Olson MD [Primary Care Provider] - 09/25/17 2:30 pm () Omid Vaughn MD [REFERRING] - 10/08/17 10:15 am (previous scheduled appointment) Patient Instructions/Handouts: Transesophageal Echocardiogram (DC), Pulmonary Edema (DC) Activity/Diet/Wound Care/Special Instructions: Diet: cardiac Activity: as tolerated check CBC in [address] Olson's office Discharge Disposition: HOME SELF-CARE
== END 2017-09-18 13:52 | disposition home or self-care (01) | DRG 291 ==
LOC: EC 10:16 → 6SEL 12:53
PROVIDERS: ADMIT Internal Medicine; ATTEND Internal Medicine
DX: I50.43 Acute on chronic combined systolic (congestive) and diastolic (congestive) heart failure (principal); J96.01 Acute respiratory failure with hypoxia; I47.2 Ventricular tachycardia; J44.9 Chronic obstructive pulmonary disease, unspecified; D50.9 Iron deficiency anemia, unspecified; E89.0 Postprocedural hypothyroidism; F41.9 Anxiety disorder, unspecified; I08.0 Rheumatic disorders of both mitral and aortic valves; I49.3 Ventricular premature depolarization; M06.9 Rheumatoid arthritis, unspecified; M19.90 Unspecified osteoarthritis, unspecified site; K57.90 Diverticulosis of intestine, part unspecified, without perforation or abscess without bleeding; Z79.899 Other long term (current) drug therapy; Z88.8 Allergy status to other drugs, medicaments and biological substances; Z87.442 Personal history of urinary calculi; Z87.891 Personal history of nicotine dependence; Z90.710 Acquired absence of both cervix and uterus; Z96.642 Presence of left artificial hip joint; Z96.653 Presence of artificial knee joint, bilateral
CPT/HCPCS: 36415; 71046; 80053; 82550; 82553; 82728; 83540; 83550; 83735; 83880; 84132; 84443; 84484; 85025; 85610; 85730; 87040; 93005; 94640; 94760; 96374; 99291

== ENCOUNTER 2017-10-07 09:41 | Day surgery (SDC) | payer MEDICARE, OTHER ==
[~2017-10-07 09:41] MED LIST: ALPRAZolam 0.25 MG TAB PO PRN; ALPRAZolam 0.5 MG TAB PO PRN; ASPIRIN 325 MG TAB PO STA; NITROGLYCERIN SL TABS 0.4 MG TAB SUBLINGUAL PRN; SODIUM CHLORIDE 0.9% 1,000 ML in EMPTY BAG 1 BAG IV ONE
[2017-10-07 10:20] VITALS: PULSE 85; RESP 20; TEMP 98.8
[2017-10-07] MEDS ORDERED: fentaNYL (PF) 50 MCG/ML 2 ML AMP ONE (10:25)
[2017-10-07] MEDS ORDERED: HEPARIN SODIUM 1,000 UN/ML (10ML VL) ONE (10:25)
[2017-10-07] MEDS ORDERED: VERAPAMIL 2.5 MG/ML 2 ML AMP ONE (10:25)
[2017-10-07] MEDS ORDERED: LIDOCAINE 2% INJ 20 MG/ML (20 ML MDV) ONE (10:25)
[2017-10-07] MEDS ORDERED: diphenhydrAMINE 50 MG/ML 1 ML VIAL ONE (10:25)
[2017-10-07] MEDS ORDERED: diphenhydrAMINE 50 MG/ML 1 ML VIAL IVP ONE (10:49)
[2017-10-07] MEDS ORDERED: fentaNYL (PF) 50 MCG/ML 2 ML AMP IV ONE (10:50)
[2017-10-07] MEDS ORDERED: IV FLUID CONTINUATION 900 ML IV ONE (10:50)
[2017-10-07] MEDS ORDERED: LIDOCAINE 2% INJ 20 MG/ML SQ ONE (10:54)
[2017-10-07] MEDS ORDERED: VERAPAMIL SYRINGE (5 MG/10 ML) INTRAARTER ONE (10:55)
[2017-10-07] MEDS ORDERED: HEPARIN SODIUM 1,000 UN/ML (10ML VL) IV ONE (10:56)
[2017-10-07] MEDS ORDERED: IOHEXOL 350 MG/ML 125ML BOTTLE INJ ONE (11:06)
[2017-10-07] MEDS ORDERED: RX INFO: IV CONTRAST WAS GIVEN 1 EACH MISC MISCELLANE PRN (11:24)
[2017-10-07] MEDS ORDERED: HYDROcodone/APAP 10-325MG 1 EACH TAB PO PRN (11:25)
[2017-10-07] MEDS ORDERED: ALPRAZolam 0.25 MG TAB PO PRN (11:25)
[2017-10-07] MEDS ORDERED: SODIUM CHLORIDE 0.9% 1,000 ML IV SCH (11:30)
--- NOTE | 2017-10-07 11:50 | CC ---
CARDIAC CATHETERIZATION REPORT Mrs. San is a 72-year-old female who has been followed in the past by Dr. Vaughn at [facility] and has a history of progressive mitral regurgitation and is scheduled to undergo surgical intervention by Dr. Rodriguez. Recommendation was made regarding cardiac catheterization preoperatively. The procedure as well as the risks and complications were discussed with the patient who is in full understanding and agreement. PROCEDURE: Patient was brought to the labor expediter in a fasting, semi sedated state after receiving fentanyl and Benadryl and achieving moderate conscious sedated state. Using Xylocaine anesthesia in the Seldinger technique, a 6-Uzbek sheath was introduced in the right radial artery. Selective right and left coronary angiography performed using of a 5- Uzbek 3.5 bend right and left Hamida catheter. Multiple views of the coronary artery including hemiaxial views were obtained. Following that 5-Uzbek tight pigtail catheter introduced in the left ventricle and a 30-degree NEAL view of the left ventricle was obtained. Following that, catheter and sheath were removed. Hemostasis was obtained with deployment of a TR band. There was no immediate complication. Patient is returned to room in stable condition. Of note, the patient received 3000 units of intravenous heparin as well as intra-arterial verapamil. FINDINGS: FLUOROSCOPY: There was calcification of the mitral anulus. LEFT MAIN: This is a large-sized vessel bifurcating in the left circumflex and left anterior descending artery. Left main coronary artery without any obstructive coronary artery disease. LEFT ANTERIOR DESCENDING ARTERY: This is a large-sized vessel reaching to the apex with a wraparound apex segment giving rise to 2 diagonal branch. The left anterior descending artery as well as branches have no evidence of obstructive coronary artery disease. LEFT CIRCUMFLEX: This is a large nondominant vessel giving rise to a large very proximal obtuse marginal branch. The left circumflex as well as branches have no evidence of obstructive coronary disease. RIGHT CORONARY ARTERY: This is a dominant size vessel moderate in caliber bifurcating to the PDA and PLV. The right coronary artery as well as branches have no evidence of obstructive coronary artery disease. LEFT VENTRICULOGRAM: Left ventriculogram is performed in 30-degree NEAL view and revealed a dilated left ventricle with severe global hypokinesis. Ejection fraction is 25% to 30%. There was 4+ mitral regurgitation. HEMODYNAMICS: There was no gradient across the aortic valve. The ventricular end- diastolic pressure was 24 mmHg. CONCLUSION: 1. Normal coronary arteries. 2. Severely impaired left ventricular systolic function with severe mitral regurgitation. RECOMMENDATION: I have reviewed the findings with the patient and her family. She will be evaluated by Dr. Rodriguez for surgical intervention. Those findings and recommendation were discussed with the patient and her family and are in full understanding and agreement. Duration procedure is 17 minutes. MMVIOLETL / YUMIKON: [id number] /
--- NOTE | 2017-10-07 11:57 | LTR ---
October 07, 2017 Re: Mirella San Dear Dr. Olson: I had the opportunity to perform cardiac catheterization on Mrs. San at [facility] on the 07 of October and a full copy of the procedure note will be forwarded to you. In brief, she was found to have no evidence of significant obstructive coronary artery disease with a severely impaired left ventricular systolic function and evidence of severe mitral regurgitation. She will be further evaluated by Dr. Rodriguez for mitral valve surgery. Thank you again for allowing me the opportunity to participate in her care. Please feel free to call for any questions. Sincerely yours, MD MASTER FisherL / YUMIKON: [id number] /
[2017-10-07] MEDS ORDERED: NON-FORMULARY DRUG (Ipratropium/Albuterol Sulfate [Combivent Respimat Inhaler] 1 PUFF) INHALATION SCH (12:00)
[2017-10-07 17:21] VITALS: BP 115/58
[2017-10-07] MEDS ORDERED: FERROUS SULFATE 325 MG TAB PO SCH (21:00)
[2017-10-08] MEDS ORDERED: ASCORBIC ACID 500 MG TAB PO SCH (09:00)
[2017-10-08] MEDS ORDERED: FUROSEMIDE 20 MG TAB PO SCH (09:00)
[2017-10-08] MEDS ORDERED: NON-FORMULARY DRUG (Levothyroxine Sodium [Synthroid] 150 MCG) PO SCH (09:00)
[2017-10-08] MEDS ORDERED: LOSARTAN 25 MG TAB PO SCH (09:00)
[2017-10-08] MEDS ORDERED: CHOLECALCIFEROL 1,000 UNIT TAB PO SCH (09:00)
[2017-10-08] MEDS ORDERED: METOPROLOL TARTRATE 25 MG TAB PO SCH (09:00)
[2017-10-08] MEDS ORDERED: ASPIRIN 81 MG PO SCH (09:00)
--- NOTE | 2017-10-11 09:14 | P.PN ---
Progress Note - Text Progress Note Date: 10/09/17 5 meter walk test completed: 1. 6.04 sec 2. 7.10 sec 3. 6.89 sec
== END 2017-10-07 16:45 | disposition home or self-care (01) ==
LOC: CATHCVL 09:41
PROVIDERS: ATTEND Internal Medicine Interventional Cardiology
DX: I05.9 Rheumatic mitral valve disease, unspecified (principal); I42.9 Cardiomyopathy, unspecified; I11.0 Hypertensive heart disease with heart failure; I50.9 Heart failure, unspecified; J44.9 Chronic obstructive pulmonary disease, unspecified; Z87.891 Personal history of nicotine dependence; N28.9 Disorder of kidney and ureter, unspecified; M06.9 Rheumatoid arthritis, unspecified; E89.0 Postprocedural hypothyroidism; R01.1 Cardiac murmur, unspecified; Z79.51 Long term (current) use of inhaled steroids; Z79.899 Other long term (current) drug therapy; Z88.8 Allergy status to other drugs, medicaments and biological substances
CPT/HCPCS: 93458; C1894; C1769; J2001; J1200; J3010; J1644; Q9967

== ENCOUNTER → 2017-10-09 | Outpatient (CLI) | payer MEDICARE, OTHER | END | disposition home or self-care (01) | LOC: LABPAT 16:55 | PROVIDERS: ATTEND Thoracic Surgery (Cardiothoracic Vascular Surgery) | DX: Z01.812 Encounter for preprocedural laboratory examination (principal) | CPT/HCPCS: 36415; 80053; 85025; 86850; 86900; 86901; 86920; 93970 ==

== ENCOUNTER 2017-10-13 06:00 | Inpatient (IN) | payer MEDICARE, OTHER ==
[2017-10-09 17:55] LABS: ALT 28 U/L (9-52); AST 19 U/L (14-36); Albumin 3.8 g/dL (3.5-5.0); Alkaline Phosphatase 101 U/L (38-126); Anion Gap 10 mmol/L; Blood Urea Nitrogen 17 mg/dL (7-17); Calcium 9.1 mg/dL (8.4-10.2); Carbon Dioxide 28 mmol/L (22-30); Chloride 102 mmol/L (98-107); Glucose 98 mg/dL (74-99); Potassium 3.9 mmol/L (3.5-5.1); Sodium 140 mmol/L (137-145); Total Bilirubin 0.5 mg/dL (0.2-1.3); Total Protein 6.8 g/dL (6.3-8.2)
[2017-10-09 18:43] LABS: Basophils % (A) 1 %; Eosinophils # (A) 0.3 k/uL (0-0.7); Eosinophils % (A) 4 %; HCT 36.8 % (34.0-46.0); HGB 11.1 gm/dL (11.4-16.0); Hypochromasia Marked; Lymphocytes # (A) 1.7 k/uL (1.0-4.8); Lymphocytes % (A) 25 %; MCH 26.5 pg (25.0-35.0); MCHC 30.2 g/dL (31.0-37.0); MCV 87.7 fL (80.0-100.0); Mean Platelet Volume 7.9; Monocytes # (A) 0.5 k/uL (0-1.0); Monocytes % (A) 7 %; Neutrophils # (A) 3.9 k/uL (1.3-7.7); Neutrophils % (A) 59 %; Platelet Count 256 k/uL (150-450); RDW 15.4 % (11.5-15.5); WBC 6.6 k/uL (3.8-10.6)
[~2017-10-13 06:00] MED LIST changes: +ALBUMIN HUMAN 25% 50 ML IV ONE; +ALBUMIN HUMAN 5% 500 ML IVPB ONE; -ALPRAZolam 0.25 MG TAB PO PRN; -ALPRAZolam 0.5 MG TAB PO PRN; +ASPIRIN 325 MG TAB PO ONE; -ASPIRIN 325 MG TAB PO STA; +ATORVASTATIN 10 MG TAB PO ONE; +CALCIUM CHLORIDE 100 MG/ML 10 ML SYRINGE IV ONE; +CHLORHEXIDINE GLUCONATE 15 ML CUP MUCOUS MEM ONE; +CLEVIDIPINE BUTYRATE 25 MG in EMPTY BAG 1 BAG IV ONE; +DEXTROSE 5% IN WATER 1,000 ML with POTASSIUM CHLORIDE 110 MEQ, MAGNESIUM SULFATE 16 MEQ... IV ONE; +DEXTROSE 5% IN WATER 1,000 ML with POTASSIUM CHLORIDE 25 MEQ, SODIUM CHLORIDE 4MEQ/ML V... IV ONE; +HEPARIN SODIUM 1,000 UN/ML (10ML VL) IV ONE; +HEPARIN SODIUM,PORCINE 5,000 UNIT in SODIUM CHLORIDE 0.9% 500 ML IV ONE; +INSULIN REGULAR 100 UNIT in SODIUM CHLORIDE 0.9% 100 ML IV ONE; +LACTATED RINGERS 1,000 ML IV ONE; +MAGNESIUM SULFATE MG 500 MG/ML VIAL IV ONE; +MANNITOL 25% 12.5 GM/50 ML VIAL IV ONE; +METOPROLOL TARTRATE 12.5 MG TAB PO ONE; +MUPIROCIN 2% OINT 22 GM TUBE NASAL ONE; +NITROGLYCERIN SL TABS 0.4 MG TAB SUBLINGUAL ONE; -NITROGLYCERIN SL TABS 0.4 MG TAB SUBLINGUAL PRN; +NITROGLYCERIN-D5W PMX 25 MG/250 ML BTL IV ONE; +NITROGLYCERIN-D5W PMX 50 MG in DEXTROSE/WATER 1 250ML.BAG IV ONE; +NOREPINEPHRIN 4 MG-0.9% NS PMX 4 MG/250 ML ML IV ONE; +PHENYLEPHRINE 40 MG in SODIUM CHLORIDE 0.9% 250 ML IV ONE; +PHENYLEPHRINE-0.9% NACL SYG 1 MG/10 ML SYRINGE IV ONE; +PROPOFOL 1,000 MG/100 ML VIAL IV ONE; +PROTAMINE SULFATE 10 MG/ML 25 ML VIAL IV ONE; +PROTAMINE SULFATE 250 MG in EMPTY BAG 1 BAG IV ONE; +SODIUM BICARB 8.4% 50 ML SYR (1 MEQ/ML) IV ONE; +SODIUM CHLORIDE 0.9% 1,000 ML IV ONE; -SODIUM CHLORIDE 0.9% 1,000 ML in EMPTY BAG 1 BAG IV ONE; +TRANEXAMIC ACID 2,000 MG in SODIUM CHLORIDE 0.9% 180 ML IV ONE; +ceFAZolin 1,000 MG in SODIUM CHLORIDE 0.9% IRRIGATIO 1,000 ML IRRIGATION ONE; +ceFAZolin 2,000 MG in SODIUM CHLORIDE 0.9% 30 ML IVPB ONE
[2017-10-13] MEDS ORDERED: HEPARIN SODIUM,PORCINE 10,000 UNIT/ML 1 ML VIAL ONE (09:11)
[2017-10-13] MEDS ORDERED: AMIODARONE 50 MG/ML 3 ML VIAL IV ONE (09:11)
[2017-10-13] MEDS ORDERED: SODIUM CHLORIDE 0.9% IRRIG 1,000 ML BTL IRRIGATION ONE (09:11)
[2017-10-13] MEDS ORDERED: SODIUM CHLORIDE 0.9% 250 ML BAG ONE (09:11)
[2017-10-13] MEDS ORDERED: LIDOCAINE 2% SYG (PF) 100 MG/5 ML ONE (09:11)
[2017-10-13] MEDS ORDERED: fentaNYL (PF) 50 MCG/ML 50 ML VIAL ONE (09:11)
[2017-10-13] MEDS ORDERED: TRANEXAMIC ACID 1,000 MG/10 ML VIAL ONE (09:11)
[2017-10-13] MEDS ORDERED: MAGNESIUM SULFATE 4 MEQ/ML 2 ML VIAL ONE (09:11)
[2017-10-13] MEDS ORDERED: fentaNYL (PF) 50 MCG/ML 2 ML AMP ONE (09:11)
[2017-10-13] MEDS ORDERED: ELECTROLYTE-R (PH 7.4) 1,000 ML IV.SOLN IV ONE (09:11)
[2017-10-13] MEDS ORDERED: ALBUMIN HUMAN 5% 500 ML VIAL IVPB ONE (09:11)
[2017-10-13] MEDS ORDERED: VECURONIUM 10 MG VIAL IV ONE (09:11)
[2017-10-13] MEDS ORDERED: MIDAZOLAM 2 MG/2 ML VIAL ONE (09:11)
[2017-10-13] MEDS ORDERED: NOREPINEPHRIN 4 MG-0.9% NS PMX 4 MG/250 ML ML IV SCH (15:30)
[2017-10-13] MEDS ORDERED: CALCIUM GLUCONATE 2,000 MG in SODIUM CHLORIDE 0.9% 100 ML IVPB PRN (15:35)
[2017-10-13] MEDS ORDERED: METOCLOPRAMIDE 5 MG/ML 2 ML VIAL IVP PRN (15:35)
[2017-10-13] MEDS ORDERED: NITROGLYCERIN-D5W PMX 50 MG in DEXTROSE/WATER 1 250ML.BAG IV SCH (15:35)
[2017-10-13] MEDS ORDERED: Phosphorus Replacement Protoco 1 EACH MISC MISCELLANE PRN (15:35)
[2017-10-13] MEDS ORDERED: Potassium Replacement Protocol 1 EACH MISC MISCELLANE PRN (15:35)
[2017-10-13] MEDS ORDERED: Magnesium Replacement Protocol 1 EACH MISC MISCELLANE PRN (15:35)
[2017-10-13] MEDS ORDERED: BENZOCAINE/MENTHOL LOZENG 1 EACH LOZENGE MUCOUS MEM PRN (15:35)
--- NOTE | 2017-10-13 15:37 | OP ---
OPERATIVE REPORT DATE OF THE OPERATION: 10/13/2017 ATTENDING SURGEON: Dr. Moise Rodriguez. COUNT TEAM MEMBER: Dr. Nehemiah Romero. PREOPERATIVE DIAGNOSES: 1. Severe aortic insufficiency. 2. Severe mitral regurgitation. POSTOPERATIVE DIAGNOSES: 1. Severe aortic insufficiency. 2. Severe mitral regurgitation. PROCEDURE: Aortic valve replacement with a #21 mm Magna Ease bioprosthetic aortic valve, mitral valve repair with a #28 mm Carbo [employer]ics annular flex band, clip ligation of left atrial appendage with a #35 mm AtriClip AND intraoperative MATTHEW. ANESTHESIA: General. BLOOD LOSS: 500 mL. SUMMARY: 1. Patient was taken to the operative room and placed in supine position. Following administration of general endotracheal anesthetic, placed in a [place] Elise catheter and an adequate IV access, Villegas catheter, patient carefully prepped and draped in a sterile fashion using Betadine paint and sterile towels. A midline incision in the chest made. Sternum divided. Pericardium was opened. Heart size was normal in caliber. The aorta was soft. Patient was heparinized . The aorta and 2 single stage venous cannulas were placed. Antegrade and retrograde cardioplegic catheters positioned in the ascending aorta and the coronary sinus. Patient is placed on bypass grafts. Cross-clamp placed. Heart arrested with one intervention with a 500 mL retrograde cardioplegia. Retrograde cardioplegia was delivered 300 to 500 mL at the end of each 20 minute interval. First, the base of the left atrial appendage was measured, it measured to a 35 mm AtriClip. The clip was brought into the field, opened, secured at the base, officially obliterating the left atrial appendage. Next, the transverse aortotomy incision was made 2 cm distal to the takeoff of the right coronary artery. A handheld retractor was placed. The aortic valve was trileaflet. The valve leaflets were carefully excised. The anulus debrided and was irrigated out copiously with a liter of cold saline. Next, at this point, the left atrium was entered at the junction of the right superior pulmonary vein. A handheld retractor was placed. The subvalvular apparatus of the mitral valve appeared to be within normal limits. There was extreme calcification on the left-sided trigone and about 30% down under the anulus of the anterolateral trigone. With this point, it was determined that a repair might be somewhat a little bit difficult as this area would not be able to be cinched closer. However, replacing her mitral valve was not a good option, therefore 2-0 Tycron non-pledgeted sutures were placed from trigone to trigone along the posterior annulus. As we get to the anterolateral trigone, the suture was passed around to the piece of the calcifications as well as the first 2 sutures along the anulus were just outside the actual annulus and were not cinching sutures. The remainder of the 5 sutures were all intended to cinch the anulus and the trigone as we got to the posteromedial region. The 28 mm band was brought into the field. All sutures were passed through the band and the sutures were secured and ligated using the core knot ligature system. It tested well, as well as could be tested without the aortic valve in place and the left atrium was then closed using a double-layer, pledgeted 4 Prolene vertical mattress followed by an over-and- over stitch from both sides. At this point, the aortic valve anulus sized to a 21 mm Magna Ease bioprosthetic aortic valve. The valve was prepared in the usual fashion; 2-0 Tycron pledgeted sutures were placed ventricularly based circumferentially. These were then passed through the sewing cuff of the valve, which was brought into the field and seated well. All sutures were then secured using the current ligature system. It also was irrigated out copiously and then the aortotomy incision also closed in a double layered pledgeted 4-0 Prolene, vertical mattress followed by an [id number] stitch on both sides. Patient was placed head down, complete deairing maneuvers were performed 3 times. One L of warm blood retrograde cardioplegia was run. Cross-clamp was then removed. Patient was reperfused for a period of time. Atrial ventricular pacing wires were placed. Patient was paced DDD at 80, ventilated and brought off bypass. Came off bypass uneventfully with good hemodynamics, support being delivered. Patient decannulated. Pacer wires had already been placed. Mediastinal and left pleural chest tubes were placed. At this point, the sternum was closed with seven #6 sternal wires. Skin, subcutaneous tissue, fascia are closed in 3 layers. No complications. Patient tolerated the procedure well. Postoperative MATTHEW showed excellent aortic valve function with no AI and trace mild central mitral regurgitation looked good and the patient was transported to the ICU on a little bid of Primacor and Levophed. MMNEEL / YUMIKON: [id number] /
[2017-10-13] MEDS: MILRINONE-D5W PMX 20 MG in DEXTROSE/WATER 1 100ML.BAG IV SCH (16:00)
[2017-10-13] MEDS: PROPOFOL 1,000 MG in EMPTY BAG 1 BAG IV SCH ×2 (16:00→22:07)
[2017-10-13 16:25] LABS: ABG Base Excess -2.9 mmol/L; ABG HCO3 24 mmol/L (21-25); ABG Oxygen Saturation 99.1 % (94-97); ABG PCO2 55 mmHg (35-45); ABG PH 7.25 (7.35-7.45); ABG PO2 312 mmHg (83-108); ABG TCO2 26 mmol/L (19-24)
[2017-10-13 16:27] LABS: Basophils % (A) 0 %; Eosinophils % (A) 0 %; Hypochromasia Marked; Lymphocytes # (A) 0.9 k/uL (1.0-4.8); Lymphocytes % (A) 6 %; MCH 27.6 pg (25.0-35.0); MCHC 30.9 g/dL (31.0-37.0); MCV 89.4 fL (80.0-100.0); Mean Platelet Volume 8.5; Monocytes # (A) 0.6 k/uL (0-1.0); Monocytes % (A) 4 %; Neutrophils # (A) 14.3 k/uL (1.3-7.7); Neutrophils % (A) 89 %; Poikilocytosis Slight; RBC 3.02 m/uL (3.80-5.40); RDW 15.6 % (11.5-15.5); WBC 16.1 k/uL (3.8-10.6)
[2017-10-13 16:30] LABS: INR 1.4 (<1.2); Partial Thromboplastin Time 30.5 sec (22.0-30.0); Prothrombin Time 13.1 sec (9.0-12.0)
[2017-10-13] MEDS: IPRATROPIUM-ALBUTEROL 3 ML NEB INHALATION SCH ×3 (16:33→22:58)
[2017-10-13 16:35] LABS: HGB 8.3 gm/dL (11.4-16.0)
[2017-10-13 16:36] LABS: Platelet Count 111 k/uL (150-450)
--- NOTE | 2017-10-13 16:40 | XR ---
EXAMINATION TYPE: XR chest 1V portable DATE OF EXAM: 10/13/2017 COMPARISON: 09/29/2017 INDICATION: Post cardiac surgery TECHNIQUE: Single frontal view of the chest is obtained. FINDINGS: The heart size is enlarged. Sternotomy wires are present from the cardiac valve surgery. The pulmonary vasculature is normal. Platelike atelectasis is in the right midlung. There is thickening along the right pleural margin. A small pleural effusion may be present. A chest tube is present on the left. No pneumothorax is eviden t. Right central venous catheter is present. [place]-Elise catheter tip is in the right main pulmonary ar heber. No pneumothorax is evident. Endotracheal tube is present with the tip near the stephie. This cou ld be pulled back approximately 3 cm. Nasogastric tube transverses the thorax. Mediastinal tubes are present. IMPRESSION: 1. Endotracheal tube tip appears to be low lying at nearly the stephie. This could be pulled back appr oximately 3 cm. Report was called to the ICU by Dr. Davila by telephone 1635 hours 10/13/2017 2. Cardiomegaly. 3. Additional lines and catheters discussed above.
[2017-10-13 16:41] LABS: ALT 27 U/L (9-52); AST 60 U/L (14-36); Albumin 3.4 g/dL (3.5-5.0); Alkaline Phosphatase 44 U/L (38-126); Anion Gap 11 mmol/L; Blood Urea Nitrogen 14 mg/dL (7-17); Calcium 8.4 mg/dL (8.4-10.2); Carbon Dioxide 25 mmol/L (22-30); Chloride 106 mmol/L (98-107); Glucose 158 mg/dL (74-99); Magnesium 2.7 mg/dL (1.6-2.3); Potassium 4.4 mmol/L (3.5-5.1); Sodium 142 mmol/L (137-145); Total Bilirubin 1.8 mg/dL (0.2-1.3); Total Protein 5.3 g/dL (6.3-8.2)
[2017-10-13 16:43] LABS: Glucose,Whole Blood 163 mg/dL (75-99)
[2017-10-13 16:43] LABS: Glucose,Whole Blood 172 mg/dL (75-99)
[2017-10-13] MEDS: LACTATED RINGERS 1,000 ML IV SCH (17:09)
[2017-10-13 17:10] LABS: Glucose,Whole Blood 170 mg/dL (75-99)
[2017-10-13] MEDS: ceFAZolin IN SWFI 2 GM/20 ML SYRINGE IVP SCH (17:10)
[2017-10-13] MEDS: ACETAMINOPHEN IV (For NPO) 1,000 MG in EMPTY BAG 1 BAG IVPB SCH (17:11)
[2017-10-13] MEDS: CLEVIDIPINE BUTYRATE 25 MG in EMPTY BAG 1 BAG IV SCH ×2 (17:13→21:30)
[2017-10-13] MEDS: INSULIN REGULAR 100 UNIT in SODIUM CHLORIDE 0.9% 100 ML IV SCH (17:26)
[2017-10-13 18:04] LABS: Glucose,Whole Blood 176 mg/dL (75-99)
[2017-10-13] MEDS: ALBUMIN HUMAN 5% 250 ML in EMPTY BAG 1 BAG IVPB PRN ×2 (18:53→19:02)
[2017-10-13 19:01] LABS: Glucose,Whole Blood 150 mg/dL (75-99)
[2017-10-13 19:25] LABS: Basophils % (A) 0 %; Eosinophils % (A) 0 %; HCT 22.4 % (34.0-46.0); Hypochromasia Marked; Lymphocytes # (A) 0.4 k/uL (1.0-4.8); Lymphocytes % (A) 4 %; MCH 27.7 pg (25.0-35.0); MCHC 31.3 g/dL (31.0-37.0); MCV 88.4 fL (80.0-100.0); Monocytes # (A) 0.4 k/uL (0-1.0); Monocytes % (A) 3 %; Neutrophils # (A) 9.5 k/uL (1.3-7.7); Neutrophils % (A) 92 %; Poikilocytosis Moderate; RBC 2.53 m/uL (3.80-5.40); RDW 15.4 % (11.5-15.5); WBC 10.4 k/uL (3.8-10.6)
[2017-10-13 20:03] LABS: Platelet Count 90 k/uL (150-450)
[2017-10-13 20:06] LABS: Glucose,Whole Blood 123 mg/dL (75-99)
[2017-10-13 21:13] LABS: Glucose,Whole Blood 122 mg/dL (75-99)
[2017-10-13 22:08] LABS: Glucose,Whole Blood 190 mg/dL (75-99)
[2017-10-13] MEDS: MUPIROCIN 2% OINT 22 GM TUBE NASAL SCH (22:30)
[2017-10-13 23:00] LABS: Anisocytosis Slight; Basophils % (A) 0 %; Eosinophils % (A) 0 %; Hypochromasia Marked; Lymphocytes # (A) 0.9 k/uL (1.0-4.8); Lymphocytes % (A) 7 %; MCHC 29.6 g/dL (31.0-37.0); Mean Platelet Volume 8.8; Monocytes # (A) 0.5 k/uL (0-1.0); Monocytes % (A) 4 %; Neutrophils # (A) 11.8 k/uL (1.3-7.7); Neutrophils % (A) 88 %; Platelet Count 91 k/uL (150-450); Poikilocytosis Slight; RBC 2.53 m/uL (3.80-5.40); RDW 16.1 % (11.5-15.5); WBC 13.5 k/uL (3.8-10.6)
[2017-10-13 23:07] LABS: HGB 6.8 gm/dL (11.4-16.0)
[2017-10-13 23:19] LABS: Anion Gap 10 mmol/L; Blood Urea Nitrogen 16 mg/dL (7-17); Calcium 8.3 mg/dL (8.4-10.2); Carbon Dioxide 24 mmol/L (22-30); Chloride 108 mmol/L (98-107); Glucose 162 mg/dL (74-99); Magnesium 2.5 mg/dL (1.6-2.3); Potassium 3.9 mmol/L (3.5-5.1); Sodium 142 mmol/L (137-145)
[2017-10-13 23:21] LABS: Glucose,Whole Blood 148 mg/dL (75-99)
[2017-10-14 00:21] LABS: Glucose,Whole Blood 141 mg/dL (75-99)
[2017-10-14] MEDS: MORPHINE SULFATE 4 MG/ML SYRINGE IVP PRN ×3 (00:36→14:31)
[2017-10-14 01:08] LABS: Glucose,Whole Blood 132 mg/dL (75-99)
[2017-10-14] MEDS: HEPARIN SODIUM,PORCINE 5,000 UNIT/ML 1 ML VIAL SQ SCH ×3 (01:39→15:42)
[2017-10-14] MEDS: ACETAMINOPHEN IV (For NPO) 1,000 MG in EMPTY BAG 1 BAG IVPB SCH ×4 (01:44→17:12)
[2017-10-14 02:12] LABS: Glucose,Whole Blood 115 mg/dL (75-99)
[2017-10-14] MEDS: ceFAZolin IN SWFI 2 GM/20 ML SYRINGE IVP SCH ×2 (02:25→08:33)
[2017-10-14] MEDS: IPRATROPIUM-ALBUTEROL 3 ML NEB INHALATION SCH ×8 (02:53→20:49)
[2017-10-14 03:05] LABS: Glucose,Whole Blood 118 mg/dL (75-99)
[2017-10-14 04:09] LABS: Glucose,Whole Blood 153 mg/dL (75-99)
[2017-10-14 04:52] LABS: ABG Base Excess -2.8 mmol/L; ABG HCO3 22 mmol/L (21-25); ABG Oxygen Saturation 99.2 % (94-97); ABG PCO2 37 mmHg (35-45); ABG PH 7.39 (7.35-7.45); ABG PO2 123 mmHg (83-108); ABG TCO2 23 mmol/L (19-24)
[2017-10-14 05:07] LABS: INR 1.3 (<1.2); Prothrombin Time 12.2 sec (9.0-12.0)
[2017-10-14 05:08] LABS: Partial Thromboplastin Time 37.9 sec (22.0-30.0)
[2017-10-14 05:13] LABS: Basophils % (A) 0 %; Eosinophils % (A) 0 %; Hypochromasia Marked; Ionized Calcium 4.8 mg/dL (4.5-5.3); Lymphocytes # (A) 0.6 k/uL (1.0-4.8); Lymphocytes % (A) 7 %; MCHC 30.1 g/dL (31.0-37.0); MCV 89.6 fL (80.0-100.0); Mean Platelet Volume 8.8; Monocytes # (A) 0.3 k/uL (0-1.0); Monocytes % (A) 3 %; Neutrophils # (A) 7.6 k/uL (1.3-7.7); Neutrophils % (A) 87 %; Poikilocytosis Moderate; RBC 2.23 m/uL (3.80-5.40); RDW 15.7 % (11.5-15.5); WBC 8.7 k/uL (3.8-10.6)
[2017-10-14 05:17] LABS: Platelet Count 79 k/uL (150-450)
[2017-10-14 05:21] LABS: ALT 32 U/L (9-52); AST 69 U/L (14-36); Albumin 2.9 g/dL (3.5-5.0); Alkaline Phosphatase 40 U/L (38-126); Anion Gap 10 mmol/L; Blood Urea Nitrogen 17 mg/dL (7-17); Calcium 8.3 mg/dL (8.4-10.2); Carbon Dioxide 23 mmol/L (22-30); Chloride 108 mmol/L (98-107); Glucose 140 mg/dL (74-99); Magnesium 2.2 mg/dL (1.6-2.3); Potassium 4.1 mmol/L (3.5-5.1); Sodium 141 mmol/L (137-145); Total Bilirubin 2.1 mg/dL (0.2-1.3); Total Protein 4.6 g/dL (6.3-8.2)
[2017-10-14 05:22] LABS: Glucose,Whole Blood 140 mg/dL (75-99)
[2017-10-14] MEDS: PROPOFOL 1,000 MG in EMPTY BAG 1 BAG IV SCH (06:08)
[2017-10-14] MEDS: MILRINONE-D5W PMX 20 MG in DEXTROSE/WATER 1 100ML.BAG IV SCH ×3 (07:24→15:41)
[2017-10-14 07:29] LABS: Glucose,Whole Blood 121 mg/dL (75-99)
[2017-10-14] MEDS: MUPIROCIN 2% OINT 22 GM TUBE NASAL SCH ×2 (07:56→20:42)
[2017-10-14] MEDS: ATORVASTATIN 40 MG TAB PO SCH (07:56)
[2017-10-14] MEDS: METOPROLOL TARTRATE 12.5 MG TAB PO SCH ×2 (07:56→20:43)
[2017-10-14] MEDS: ASPIRIN 81 MG PO SCH (07:58)
[2017-10-14 08:23] LABS: Glucose,Whole Blood 107 mg/dL (75-99)
--- NOTE | 2017-10-14 08:28 | XR ---
EXAMINATION TYPE: XR chest 1V portable DATE OF EXAM: 10/14/2017 COMPARISON: Prior chest x-ray 10/13/2017 HISTORY: Status post cardiac surgery TECHNIQUE: Single frontal view of the chest is obtained. FINDINGS: Patient is rotated. Patient is post median sternotomy and aortic valve replacement. Median sternal drains, endotracheal tube, NG tube, left chest tube, right jugular central venous she and co axial [place]-Elise catheter catheter are again noted, interval repositioning of the endotracheal tube wh ich is overlying appropriate position. Patchy bibasilar increased density persists. Heart is enlarged . No evident pneumothorax. Pleural thickening along the right lateral chest margin is improved. The a mara is dense. Postop change the right shoulder is stable. IMPRESSION: Postop findings, basilar atelectasis, correlate to exclude pneumonia versus edema. Inter delicia endotracheal tube reposition. There may be improving right effusion.
[2017-10-14] MEDS ORDERED: DEXTROSE 5% IN WATER 100 ML with AMIODARONE 150 MG IV ONE (08:44)
[2017-10-14] MEDS ORDERED: FUROSEMIDE 10 MG/ML 2 ML VIAL IV ONE (08:44)
[2017-10-14] MEDS ORDERED: ASPIRIN 325 MG TAB PO SCH (09:00)
[2017-10-14] MEDS ORDERED: PANTOPRAZOLE 40 MG/10 ML VIAL IVP SCH (09:00)
--- NOTE | 2017-10-14 09:05 | P.PN ---
Subjective Progress Note Date: 10/14/17 Principal diagnosis: Severe aortic insufficiency. Severe mitral regurgitation. History of systolic heart failure, COPD, rheumatoid arthritis, hypothyroidism, diverticulitis, recent urinary tract infection, and previous tobacco dependence. POD #1 aortic valve replacement with a #21 mm Magna Ease bioprosthetic aortic valve, mitral valve repair with a #28 mm CarboMedics annular flex band, clip ligation of left atrial appendage with a #35 mm AtriClip and intraoperative transesophageal echocardiogram Postoperative acute blood loss anemia, expected outcome of surgery. Patient is currently lying in bed, sedated on mechanical ventilation. Weaning trial was tried last night, per nursing patient within into A. fib RVR with oxygen desaturation, decision made to return patient to full ventilator support. Remains on Primacor, insulin, and propofol. Hemoglobin was 6.0 this morning, received 1 unit packed red blood cells. Objective - Vital Signs Vital signs: Vital Signs Temp 99.3 F 10/14/17 07:09 Pulse 84 10/14/17 07:35 Resp 24 10/14/17 07:09 BP 123/45 10/14/17 07:09 Pulse Ox 100 10/14/17 06:30 Intake & Output 10/13/17 10/14/17 10/14/17 18:59 06:59 18:59 Intake Total 526.723 5453.450 464 Output Total 1990 1417 Balance -1583.946 -8.550 464 Weight 58.967 kg Intake: IV 151 1133.5 154 0.9 NaCl pressure bag 108 9 CO/CI injectate 360 30 Lactated Ringers 1,000 ml 150 600 50 @ 20 mls/hr IV .Q24H [facility] Rx#:[id number] Milrinone-D5w Pmx 20 mg 45.5 65 In Dextrose/Water 1 100ml .bag @ 0.3 MCG/KG/MIN 5.3 mls/hr IV .[id number] CARLOS Rx#:[id number] ceFAZolin 2,000 mg In 20 Sodium Chloride 0.9% 30 ml @ Per Protocol IVPB ONCE ONE Rx#:[id number] Intake, IV Titration 33.054 274.950 Amount Clevidipine Butyrate 25 5.734 mg In Empty Bag 1 bag @ 1 MG/HR 2 mls/hr IV .Q24H CARLOS Rx#:[id number] Insulin Regular 100 unit 1.708 25.483 In Sodium Chloride 0.9% 100 ml @ Per Protocol IV .Q0M [facility]OS Rx#:[id number] Milrinone-D5w Pmx 20 mg 86.19 In Dextrose/Water 1 100ml .bag @ 0.3 MCG/KG/MIN 5.3 mls/hr IV .[id number] [facility]OS Rx#:[id number] Norepinephrin 4 mg-0.9% 18.746 Ns Pmx 4 mg In 250 ml @ Titrate IV .Q0M [facility] Rx#: [id number] Propofol 1,000 mg In 12.6 157.543 Empty Bag 1 bag @ Titrate IV .Q0M [facility] Rx#: [id number] Blood Product 223 0 310 Ffp 24 Cpda Unit 0 [id number] Ffp 24 Cpda Unit 223 [id number] Platelet Pheresis Acda2 0 Unit [id number] Rc As-1 Unit 0 310 [id number] Rc As-3 Unit 0 [id number] Output: Chest Tube Drainage 286 913 Chest Tube Mediastinal 192 702 Left Pleural 94 211 Urine 705 504 Estimated Blood Loss 1000 Other: Voiding Method Indwelling Catheter Indwelling Catheter # Bowel Movements 0 0 ABP, PAP, CO, CI - Last Documented Arterial Blood Pressure 121/38 Pulmonary Artery Pressure 35/18 Cardiac Output 5.2 Cardiac Index 3.3 - Constitutional General appearance: Present: cooperative, no acute distress - Respiratory Details: Lungs sounds coarse bilaterally. Respirations even, nonlabored on mechanical ventilation. Current settings SIMV mode, FiO2 50%, tidal 350, respiratory rate 20, PEEP 5. Mediastinal chest tubes present to -20 cm wall suction, 410 mL dark red drainage overnight, 1050 mL since surgery. Left pleural chest tube to -20 cm wall suction, 145 mL thin serosanguineous drainage overnight, 250 mL since surgery, no air leak present. - Cardiovascular Details: S1, S2 present. Regular rate and rhythm, sinus rhythm on telemetry. A/V epicardial pacemaker wires present, grounded. Sternum stable. Palpable peripheral pulses bilaterally. No edema present. Right internal jugular Cordis /Hadley, right radial arterial line present. Most recent CO/CI 5.2/3.3 on 0.375 mics of Primacor. Heart hugger, SCDs present. - Gastrointestinal Gastrointestinal Comment(s): Abdomen soft, nontender, nondistended. Hypoactive bowel sounds present 4 quadrants. OG tube present to low intermittent suction with trace amounts of brownish fluid. - Genitourinary Genitourinary Comment(s): Villegas present draining clear, yellow urine. Output 25-40 mL/h overnight. - Integumentary Integumentary Comment(s): Skin is warm and dry with evidence of good perfusion. Anterior chest incision well approximated and covered with dry intact dressing. Arash wraps present to bilateral lower extremities. - Neurologic Neurologic Comment(s): Withdraws to painful stimuli. - Psychiatric Psychiatric Comment(s): Sedated on mechanical ventilation. - Labs CBC & Chem 7: 10/14/17 04:08 10/14/17 04:08 Labs: Abnormal Lab Results - Last 24 Hours (Table) 10/09/17 10/13/17 10/13/17 Range/Units 17:05 16:08 16:18 WBC 16.1 H (3.8-10.6) k/uL RBC 3.02 L (3.80-5.40) m/uL Hgb 8.3 L D (11.4-16.0) gm/dL Hct 27.0 L (34.0-46.0) % MCHC 30.9 L (31.0-37.0) g/dL RDW 15.6 H (11.5-15.5) % Plt Count 111 L D (150-450) k/uL Neutrophils # 14.3 H (1.3-7.7) k/uL Lymphocytes # 0.9 L (1.0-4.8) k/uL PT (9.0-12.0) sec INR (<1.2) APTT (22.0-30.0) sec ABG pH (7.35-7.45) ABG pCO2 (35-45) mmHg ABG pO2 (83-108) mmHg ABG Total CO2 (19-24) mmol/L ABG O2 Saturation (94-97) % Chloride (98-107) mmol/L Creatinine (0.52-1.04) mg/dL Glucose (74-99) mg/dL POC Glucose (mg/dL) 172 H (75-99) mg/dL Calcium (8.4-10.2) mg/dL Magnesium (1.6-2.3) mg/dL Total Bilirubin (0.2-1.3) mg/dL AST (14-36) U/L Total Protein (6.3-8.2) g/dL Albumin (3.5-5.0) g/dL Crossmatch See Detail 10/13/17 10/13/17 10/13/17 Range/Units 16:18 16:18 16:23 WBC (3.8-10.6) k/uL RBC (3.80-5.40) m/uL Hgb (11.4-16.0) gm/dL Hct (34.0-46.0) % MCHC (31.0-37.0) g/dL RDW (11.5-15.5) % Plt Count (150-450) k/uL Neutrophils # (1.3-7.7) k/uL Lymphocytes # (1.0-4.8) k/uL PT 13.1 H (9.0-12.0) sec INR 1.4 H (<1.2) APTT 30.5 H (22.0-30.0) sec ABG pH 7.25 L (7.35-7.45) ABG pCO2 55 H (35-45) mmHg ABG pO2 312 H (83-108) mmHg ABG Total CO2 26 H (19-24) mmol/L ABG O2 Saturation 99.1 H (94-97) % Chloride (98-107) mmol/L Creatinine 0.49 L (0.52-1.04) mg/dL Glucose 158 H (74-99) mg/dL POC Glucose (mg/dL) (75-99) mg/dL Calcium (8.4-10.2) mg/dL Magnesium 2.7 H (1.6-2.3) mg/dL Total Bilirubin 1.8 H (0.2-1.3) mg/dL AST 60 H (14-36) U/L Total Protein 5.3 L (6.3-8.2) g/dL Albumin 3.4 L (3.5-5.0) g/dL Crossmatch 10/13/17 10/13/17 10/13/17 Range/Units 16:40 17:07 18:01 WBC (3.8-10.6) k/uL RBC (3.80-5.40) m/uL Hgb (11.4-16.0) gm/dL Hct (34.0-46.0) % MCHC (31.0-37.0) g/dL RDW (11.5-15.5) % Plt Count (150-450) k/uL Neutrophils # (1.3-7.7) k/uL Lymphocytes # (1.0-4.8) k/uL PT (9.0-12.0) sec INR (<1.2) APTT (22.0-30.0) sec ABG pH (7.35-7.45) ABG pCO2 (35-45) mmHg ABG pO2 (83-108) mmHg ABG Total CO2 (19-24) mmol/L ABG O2 Saturation (94-97) % Chloride (98-107) mmol/L Creatinine (0.52-1.04) mg/dL Glucose (74-99) mg/dL POC Glucose (mg/dL) 163 H 170 H 176 H (75-99) mg/dL Calcium (8.4-10.2) mg/dL Magnesium (1.6-2.3) mg/dL Total Bilirubin (0.2-1.3) mg/dL AST (14-36) U/L Total Protein (6.3-8.2) g/dL Albumin (3.5-5.0) g/dL Crossmatch 10/13/17 10/13/17 10/13/17 Range/Units 18:58 19:00 20:03 WBC (3.8-10.6) k/uL RBC 2.53 L (3.80-5.40) m/uL Hgb 7.0 L* (11.4-16.0) gm/dL Hct 22.4 L (34.0-46.0) % MCHC (31.0-37.0) g/dL RDW (11.5-15.5) % Plt Count 90 L (150-450) k/uL Neutrophils # 9.5 H (1.3-7.7) k/uL Lymphocytes # 0.4 L (1.0-4.8) k/uL PT (9.0-12.0) sec INR (<1.2) APTT (22.0-30.0) sec ABG pH (7.35-7.45) ABG pCO2 (35-45) mmHg ABG pO2 (83-108) mmHg ABG Total CO2 (19-24) mmol/L ABG O2 Saturation (94-97) % Chloride (98-107) mmol/L Creatinine (0.52-1.04) mg/dL Glucose (74-99) mg/dL POC Glucose (mg/dL) 150 H 123 H (75-99) mg/dL Calcium (8.4-10.2) mg/dL Magnesium (1.6-2.3) mg/dL Total Bilirubin (0.2-1.3) mg/dL AST (14-36) U/L Total Protein (6.3-8.2) g/dL Albumin (3.5-5.0) g/dL Crossmatch 10/13/17 10/13/17 10/13/17 Range/Units 21:00 21:50 21:50 WBC 13.5 H (3.8-10.6) k/uL RBC 2.53 L (3.80-5.40) m/uL Hgb 6.8 L* (11.4-16.0) gm/dL Hct 23.0 L (34.0-46.0) % MCHC 29.6 L (31.0-37.0) g/dL RDW 16.1 H (11.5-15.5) % Plt Count 91 L (150-450) k/uL Neutrophils # 11.8 H (1.3-7.7) k/uL Lymphocytes # 0.9 L (1.0-4.8) k/uL PT (9.0-12.0) sec INR (<1.2) APTT (22.0-30.0) sec ABG pH (7.35-7.45) ABG pCO2 (35-45) mmHg ABG pO2 (83-108) mmHg ABG Total CO2 (19-24) mmol/L ABG O2 Saturation (94-97) % Chloride 108 H (98-107) mmol/L Creatinine 0.50 L (0.52-1.04) mg/dL Glucose 162 H (74-99) mg/dL POC Glucose (mg/dL) 122 H (75-99) mg/dL Calcium 8.3 L (8.4-10.2) mg/dL Magnesium 2.5 H (1.6-2.3) mg/dL Total Bilirubin (0.2-1.3) mg/dL AST (14-36) U/L Total Protein (6.3-8.2) g/dL Albumin (3.5-5.0) g/dL Crossmatch 10/13/17 10/13/17 10/14/17 Range/Units 22:05 23:04 00:18 WBC (3.8-10.6) k/uL RBC (3.80-5.40) m/uL Hgb (11.4-16.0) gm/dL Hct (34.0-46.0) % MCHC (31.0-37.0) g/dL RDW (11.5-15.5) % Plt Count (150-450) k/uL Neutrophils # (1.3-7.7) k/uL Lymphocytes # (1.0-4.8) k/uL PT (9.0-12.0) sec INR (<1.2) APTT (22.0-30.0) sec ABG pH (7.35-7.45) ABG pCO2 (35-45) mmHg ABG pO2 (83-108) mmHg ABG Total CO2 (19-24) mmol/L ABG O2 Saturation (94-97) % Chloride (98-107) mmol/L Creatinine (0.52-1.04) mg/dL Glucose (74-99) mg/dL POC Glucose (mg/dL) 190 H 148 H 141 H (75-99) mg/dL Calcium (8.4-10.2) mg/dL Magnesium (1.6-2.3) mg/dL Total Bilirubin (0.2-1.3) mg/dL AST (14-36) U/L Total Protein (6.3-8.2) g/dL Albumin (3.5-5.0) g/dL Crossmatch 10/14/17 10/14/17 10/14/17 Range/Units 01:05 02:10 03:02 WBC (3.8-10.6) k/uL RBC (3.80-5.40) m/uL Hgb (11.4-16.0) gm/dL Hct (34.0-46.0) % MCHC (31.0-37.0) g/dL RDW (11.5-15.5) % Plt Count (150-450) k/uL Neutrophils # (1.3-7.7) k/uL Lymphocytes # (1.0-4.8) k/uL PT (9.0-12.0) sec INR (<1.2) APTT (22.0-30.0) sec ABG pH (7.35-7.45) ABG pCO2 (35-45) mmHg ABG pO2 (83-108) mmHg ABG Total CO2 (19-24) mmol/L ABG O2 Saturation (94-97) % Chloride (98-107) mmol/L Creatinine (0.52-1.04) mg/dL Glucose (74-99) mg/dL POC Glucose (mg/dL) 132 H 115 H 118 H (75-99) mg/dL Calcium (8.4-10.2) mg/dL Magnesium (1.6-2.3) mg/dL Total Bilirubin (0.2-1.3) mg/dL AST (14-36) U/L Total Protein (6.3-8.2) g/dL Albumin (3.5-5.0) g/dL Crossmatch 10/14/17 10/14/17 10/14/17 Range/Units 04:06 04:08 04:08 WBC (3.8-10.6) k/uL RBC 2.23 L (3.80-5.40) m/uL Hgb 6.0 L* (11.4-16.0) gm/dL Hct 20.0 L* (34.0-46.0) % MCHC 30.1 L (31.0-37.0) g/dL RDW 15.7 H (11.5-15.5) % Plt Count 79 L (150-450) k/uL Neutrophils # (1.3-7.7) k/uL Lymphocytes # 0.6 L (1.0-4.8) k/uL PT (9.0-12.0) sec INR (<1.2) APTT (22.0-30.0) sec ABG pH (7.35-7.45) ABG pCO2 (35-45) mmHg ABG pO2 (83-108) mmHg ABG Total CO2 (19-24) mmol/L ABG O2 Saturation (94-97) % Chloride 108 H (98-107) mmol/L Creatinine (0.52-1.04) mg/dL Glucose 140 H (74-99) mg/dL POC Glucose (mg/dL) 153 H (75-99) mg/dL Calcium 8.3 L (8.4-10.2) mg/dL Magnesium (1.6-2.3) mg/dL Total Bilirubin 2.1 H (0.2-1.3) mg/dL AST 69 H (14-36) U/L Total Protein 4.6 L (6.3-8.2) g/dL Albumin 2.9 L (3.5-5.0) g/dL Crossmatch 10/14/17 10/14/17 10/14/17 Range/Units 04:08 04:46 05:15 WBC (3.8-10.6) k/uL RBC (3.80-5.40) m/uL Hgb (11.4-16.0) gm/dL Hct (34.0-46.0) % MCHC (31.0-37.0) g/dL RDW (11.5-15.5) % Plt Count (150-450) k/uL Neutrophils # (1.3-7.7) k/uL Lymphocytes # (1.0-4.8) k/uL PT 12.2 H (9.0-12.0) sec INR 1.3 H (<1.2) APTT 37.9 H (22.0-30.0) sec ABG pH (7.35-7.45) ABG pCO2 (35-45) mmHg ABG pO2 123 H (83-108) mmHg ABG Total CO2 (19-24) mmol/L ABG O2 Saturation 99.2 H (94-97) % Chloride (98-107) mmol/L Creatinine (0.52-1.04) mg/dL Glucose (74-99) mg/dL POC Glucose (mg/dL) 140 H (75-99) mg/dL Calcium (8.4-10.2) mg/dL Magnesium (1.6-2.3) mg/dL Total Bilirubin (0.2-1.3) mg/dL AST (14-36) U/L Total Protein (6.3-8.2) g/dL Albumin (3.5-5.0) g/dL Crossmatch 10/14/17 Range/Units 07:28 WBC (3.8-10.6) k/uL RBC (3.80-5.40) m/uL Hgb (11.4-16.0) gm/dL Hct (34.0-46.0) % MCHC (31.0-37.0) g/dL RDW (11.5-15.5) % Plt Count (150-450) k/uL Neutrophils # (1.3-7.7) k/uL Lymphocytes # (1.0-4.8) k/uL PT (9.0-12.0) sec INR (<1.2) APTT (22.0-30.0) sec ABG pH (7.35-7.45) ABG pCO2 (35-45) mmHg ABG pO2 (83-108) mmHg ABG Total CO2 (19-24) mmol/L ABG O2 Saturation (94-97) % Chloride (98-107) mmol/L Creatinine (0.52-1.04) mg/dL Glucose (74-99) mg/dL POC Glucose (mg/dL) 121 H (75-99) mg/dL Calcium (8.4-10.2) mg/dL Magnesium (1.6-2.3) mg/dL Total Bilirubin (0.2-1.3) mg/dL AST (14-36) U/L Total Protein (6.3-8.2) g/dL Albumin (3.5-5.0) g/dL Crossmatch - Imaging and Cardiology Chest x-ray: report reviewed, image reviewed Assessment and Plan (1) Tobacco dependence in remission Current Visit: No Status: Resolved Code(s): F17.201 - NICOTINE DEPENDENCE, UNSPECIFIED, IN REMISSION SNOMED Code(s): 801861995 (2) Acute blood loss anemia Current Visit: Yes Status: Acute Code(s): D62 - ACUTE POSTHEMORRHAGIC ANEMIA SNOMED Code(s): 899109389 (3) COPD (chronic obstructive pulmonary disease) Current Visit: Yes Status: Chronic Code(s): J44.9 - CHRONIC OBSTRUCTIVE PULMONARY DISEASE, UNSPECIFIED SNOMED Code(s): 11179679 (4) Systolic heart failure Current Visit: Yes Status: Chronic Code(s): I50.20 - UNSPECIFIED SYSTOLIC ( CONGESTIVE) HEART FAILURE SNOMED Code(s): 072435555 (5) Aortic insufficiency Current Visit: Yes Status: Chronic Code(s): I35.1 - NONRHEUMATIC AORTIC ( VALVE) INSUFFICIENCY SNOMED Code(s): 17730528 (6) Hypothyroid Current Visit: Yes Status: Chronic Code(s): E03.9 - HYPOTHYROIDISM, UNSPECIFIED SNOMED Code(s): 63274691 (7) Mitral regurgitation Current Visit: Yes Status: Chronic Code(s): I34.0 - NONRHEUMATIC MITRAL ( VALVE) INSUFFICIENCY SNOMED Code(s): 33213042 (8) Rheumatoid arthritis Current Visit: Yes Status: Chronic Code(s): M06.9 - RHEUMATOID ARTHRITIS, UNSPECIFIED SNOMED Code(s): 87937014 Plan: 1. Continue low-dose aspirin, statin, heparin subcu, beta dion. Will increase beta dion therapy as tolerated. 2. Wean from mechanical ventilation, extubate when able. Pulmonary management per Dr. Doyle. 3. One unit packed red blood cells transfuse, will give 20 mg IV Lasix after unit is finished. 4. Will wean off Primacor and discontinue Hadley once patient is extubated. 5. Once extubated will need aggressive pulmonary management, encourage incentive spirometry 10 times every hour. 6. Will give amiodarone and IV bolus and start oral amiodarone for A. fib prophylaxis. 7. Will order physical and occupational therapy to increase activity once extubated. 8. Insulin/diabetic management per primary care service. 9. Will monitor daily labs and x-rays. 10. GI/DVT prophylaxis. 11. More recommendations to follow. Time with Patient: Greater than 30
[2017-10-14 09:11] LABS: Glucose,Whole Blood 108 mg/dL (75-99)
[2017-10-14] MEDS: AMIODARONE 200 MG TAB PO SCH ×2 (09:13→20:43)
--- NOTE | 2017-10-14 09:36 | P.CNPUL ---
History of Present Illness Consult date: 10/14/17 Reason for consult: other Chief complaint: Status post aortic valve replacement and mitral valve repair History of present illness: Consult dated 10/14/2017 This is a 72-year-old female with a history of kidney stones rheumatoid arthritis COPD aortic stenosis UTI heart failure and hypothyroidism. She sees Dr. Rafael Vaughn at [facility]. He is her awning hanger. The patient was recently evaluated by the surgeons here and she is postop day #1 status post aortic valve replacement and mitral valve repair. The surgery was done by one of the cardiothoracic surgeons here and I did a preop evaluation. Currently, the patient is getting lactated Ringer's at 50 mL now her Primacor, propofol at 45 mics per kilogram per minute and insulin infusion at 3 units an hour. Last night, and attempt to wean her, she developed atrial fibrillation with some mild heart failure and nephrology blood-tinged sputum. She did have weaning parameters. The NIF was -25 rapid shallow breathing index was 77 respiratory was 25 tidal volume 331 vital capacity was 500 and minute volume of 7.1 L/m. The patient's vent settings are the SIMV mode rate of 20 tidal volume 350 FiO2 50% and PEEP of 5. The patient is receiving 2 units of PRBCs. Hopefully, later today she can be weaned. Review of Systems ROS unobtainable: due to endotracheal tube Past Medical History Past Medical History: COPD, GERD/Reflux, Renal Disease, Rheumatoid Arthritis (RA ), Thyroid Disorder Additional Past Medical History / Comment(s): Nephrolithiasis, rheumatoid arthritis several joints, cardiac murmur. diverticular dx, recent UTI/ completed ABX. Episode of nonsustained ventricle tachycardia, SOB w/exertion History of Any Multi-Drug Resistant Organisms: None Reported Past Surgical History: Heart Catheterization, Hysterectomy, Joint Replacement, Orthopedic Surgery Additional Past Surgical History / Comment(s): Recent MATTHEW, ti total knees arthroplasty,lt hip arthroplasty, goiter removed 1962, partial thyroidectomy, cataracts removed with lens implants, REVERSE TOTAL RIGHT SHOULDER; Rotator cuff R shoulder, cervical fusion/injections, colonoscopy. Past Anesthesia/Blood Transfusion Reactions: No Reported Reaction Smoking Status: Former smoker - Past Family History Father Additional Family Medical History / Comment(s): in his 80's of a mi Mother Additional Family Medical History / Comment(s): age 88 in correction pt not sure what she from. hx smoking. Medications and Allergies Home Medications Medication Instructions Recorded Confirmed Type ALPRAZolam [Xanax] 0.25 mg PO Q8H PRN 01/22/14 10/13/17 History Ascorbic Acid [Vitamin C] 500 mg PO DAILY 01/22/14 10/13/17 History Cholecalciferol [Vitamin D3] 2,000 units PO DAILY 01/22/14 10/13/17 History Furosemide [Lasix] 20 mg PO DAILY 06/18/16 10/13/17 History Naproxen [Naprosyn] 500 mg PO Q12HR PRN 07/15/16 10/13/17 History Albuterol Sulfate [Proair Hfa] 1 - 2 puff INHALATION RT-Q6H PRN 09/15/17 History Fluticasone/Salmeterol [Advair Hfa 1 - 2 puff INHALATION RT-BID 09/15/17 History 230-21 Mcg Inhaler] HYDROcodone/APAP 10-325MG [[place] 1 tab PO Q6H PRN 09/15/17 10/13/17 History 10-325] Metoprolol Tartrate [Lopressor] 25 mg PO DAILY #30 tab 09/18/17 10/13/17 Rx Ipratropium/Albuterol Sulfate 1 puff INHALATION RT-QID PRN 09/29/17 10/13/17 History [Combivent Respimat Inhaler] Levothyroxine Sodium [Synthroid] 150 mcg PO DAILY 09/29/17 10/13/17 History Losartan [Cozaar] 12.5 mg PO DAILY 09/29/17 10/13/17 History Ferrous Sulfate [Iron (65 MG 325 mg PO DAILY 10/10/17 10/13/17 History Elemental)] Pantoprazole [Protonix] 40 mg PO DAILY PRN 10/10/17 10/13/17 History Aspirin 324 mg PO ONCE 10/13/17 10/13/17 History Allergies Allergy/AdvReac Type Severity Reaction Status Date / Time lisinopril Allergy Unknown Verified 10/13/17 06:23 Physical Exam Osteopathic Statement: *. No significant issues noted on an osteopathic structural exam other than those noted in the History and Physical/Consult. Vitals: Vital Signs Temp Pulse Pulse Resp BP Pulse Ox 10/14/17 09:00 85 23 100 10/14/17 08:00 85 20 100 10/14/17 07:56 84 10/14/17 07:35 84 10/14/17 07:09 99.3 F 82 24 123/45 10/14/17 07:00 84 20 100 10/14/17 06:59 99.5 F 83 24 127/43 10/14/17 06:30 83 26 H 100 10/14/17 06:00 84 25 H 100 10/14/17 05:30 86 24 100 10/14/17 05:00 90 24 100 10/14/17 04:30 95 32 H 100 10/14/17 04:15 86 21 100 10/14/17 04:00 84 23 100 10/14/17 03:45 85 23 100 10/14/17 03:30 86 24 100 10/14/17 03:15 84 21 100 10/14/17 03:07 77 10/14/17 03:00 75 23 100 10/14/17 02:53 86 10/14/17 02:45 75 22 100 10/14/17 02:30 75 23 100 10/14/17 02:15 75 22 100 10/14/17 02:00 74 24 100 10/14/17 01:45 79 23 100 10/14/17 01:30 77 26 H 100 10/14/17 01:15 77 25 H 100 10/14/17 01:00 78 24 100 10/14/17 00:45 78 26 H 100 10/14/17 00:30 78 24 100 10/14/17 00:15 79 26 H 100 10/14/17 00:00 80 22 100 10/13/17 23:45 82 22 100 10/13/17 23:30 83 20 100 10/13/17 23:15 84 20 100 10/13/17 23:08 83 10/13/17 23:00 81 20 100 10/13/17 22:58 82 10/13/17 22:45 82 18 100 10/13/17 22:30 73 18 100 10/13/17 22:15 81 17 100 10/13/17 22:00 77 38 H 87 L 10/13/17 21:45 85 31 H 90 L 10/13/17 21:30 85 19 100 10/13/17 21:15 85 44 H 100 10/13/17 21:00 81 19 100 10/13/17 20:45 82 19 100 10/13/17 20:30 83 22 100 10/13/17 20:15 82 20 100 10/13/17 20:00 82 108 H 22 100 10/13/17 19:45 82 20 100 10/13/17 19:30 81 20 100 10/13/17 19:24 80 10/13/17 19:16 79 10/13/17 19:15 79 18 100 10/13/17 19:00 80 25 H 100 10/13/17 18:45 81 23 100 10/13/17 18:30 83 18 100 10/13/17 18:15 81 11 L 100 10/13/17 18:00 89 9 L 100 10/13/17 17:45 89 14 100 10/13/17 17:30 89 12 100 10/13/17 17:15 89 12 100 10/13/17 17:00 89 11 L 81/37 100 10/13/17 16:45 89 18 102/46 100 10/13/17 16:44 98 10/13/17 16:34 101 H 10/13/17 16:30 89 20 102/46 100 10/13/17 16:15 89 16 102/46 100 10/13/17 16:02 100 Intake and Output 10/13/17 10/14/17 10/14/17 22:59 06:59 14:59 Intake Total 621.336 970.168 642 Output Total 2516 892 145 Balance -1894.664 78.168 497 Intake: IV 506 777.5 332 0.9 NaCl pressure bag 36 72 27 CO/CI injectate 120 240 90 Lactated Ringers 1,000 ml 350 400 150 @ 20 mls/hr IV .Q24H [facility] Rx#:[id number] Milrinone-D5w Pmx 20 mg 45.5 65 In Dextrose/Water 1 100ml .bag @ 0.3 MCG/KG/MIN 5.3 mls/hr IV .[id number] [facility] Rx#:[id number] ceFAZolin 2,000 mg In 20 Sodium Chloride 0.9% 30 ml @ Per Protocol IVPB ONCE ONE Rx#:[id number] Intake, IV Titration 115.336 192.668 Amount Clevidipine Butyrate 25 5.734 mg In Empty Bag 1 bag @ 1 MG/HR 2 mls/hr IV .Q24H [facility] Rx#:[id number] Insulin Regular 100 unit 14.816 12.375 In Sodium Chloride 0.9% 100 ml @ Per Protocol IV .Q0M [facility] Rx#:[id number] Milrinone-D5w Pmx 20 mg 86.19 In Dextrose/Water 1 100ml .bag @ 0.3 MCG/KG/MIN 5.3 mls/hr IV .[id number] [facility] Rx#:[id number] Norepinephrin 4 mg-0.9% 18.746 Ns Pmx 4 mg In 250 ml @ Titrate IV .Q0M [facility] Rx#: [id number] Propofol 1,000 mg In 76.040 94.103 Empty Bag 1 bag @ Titrate IV .Q0M [facility] Rx#: [id number] Blood Product 0 0 310 Rc As-1 Unit 0 310 [id number] Rc As-3 Unit 0 [id number] Output: Chest Tube Drainage 601 598 80 Chest Tube Mediastinal 460 434 60 Left Pleural 141 164 20 Urine 915 294 65 Estimated Blood Loss 1000 Other: Voiding Method Indwelling Catheter Indwelling Catheter Indwelling Catheter # Bowel Movements 0 0 0 Weight 62.7 kg ABP, PAP, CO, CI - Last 8 Hours Arterial Blood Pressure 114/42 Arterial Blood Pressure 122/48 Arterial Blood Pressure 125/42 Arterial Blood Pressure 121/38 Arterial Blood Pressure 135/37 Arterial Blood Pressure 125/35 Arterial Blood Pressure 122/36 Arterial Blood Pressure 129/42 Arterial Blood Pressure 128/38 Arterial Blood Pressure 122/33 Arterial Blood Pressure 132/39 Arterial Blood Pressure 128/44 Arterial Blood Pressure 120/37 Arterial Blood Pressure 134/40 Arterial Blood Pressure 122/34 Arterial Blood Pressure 117/34 Arterial Blood Pressure 110/39 Arterial Blood Pressure 111/35 Arterial Blood Pressure 126/38 Arterial Blood Pressure 126/41 Pulmonary Artery Pressure 41/21 Pulmonary Artery Pressure 40/22 Pulmonary Artery Pressure 36/19 Pulmonary Artery Pressure 35/18 Pulmonary Artery Pressure 35/15 Pulmonary Artery Pressure 34/16 Pulmonary Artery Pressure 35/16 Pulmonary Artery Pressure 43/21 Pulmonary Artery Pressure 40/18 Pulmonary Artery Pressure 36/18 Pulmonary Artery Pressure 41/20 Pulmonary Artery Pressure 44/20 Pulmonary Artery Pressure 41/19 Pulmonary Artery Pressure 35/18 Pulmonary Artery Pressure 36/17 Pulmonary Artery Pressure 35/18 Pulmonary Artery Pressure 35/17 Pulmonary Artery Pressure 34/17 Pulmonary Artery Pressure 36/18 Pulmonary Artery Pressure 36/17 Cardiac Output 4 Cardiac Output 4 Cardiac Output 5.2 Cardiac Output 5.2 Cardiac Output 6.2 Cardiac Output 6.5 Cardiac Output 4.9 Cardiac Output 4.3 Cardiac Output 4.3 Cardiac Index 2.6 Cardiac Index 3.3 Cardiac Index 4 Cardiac Index 4.2 Cardiac Index 3.2 Cardiac Index 2.8 No acute distress, Sedated, with endotracheal tube and NG tube in place. HEENT examination is grossly unremarkable. Mucous membranes are moist. No oral lesions. Neck supple. Full range of motion. No adenopathy thyromegaly or neck vein distention. Cardiovascular examination reveals regular rhythm rate. S1-S2 normal. No S3 or S4. No discernible murmur noted. Lungs reveal clear breath sounds. Her sounds are equal bilaterally. No adventitious lung sounds including wheezes rhonchi or crackles. Abdomen soft bowel sounds are heard. No masses or tenderness. Extremities are intact. No cyanosis clubbing or edema. Skin is without rash or lesion. Neurologic examination cannot be adequately assessed. Results - Laboratory Findings CBC and BMP: 10/14/17 04:08 10/14/17 04:08 ABG ABG pH 7.39 (7.35-7.45) 10/14/17 04:46 ABG pCO2 37 mmHg (35-45) 10/14/17 04:46 ABG pO2 123 mmHg (83-108) H 10/14/17 04:46 ABG O2 Saturation 99.2 % (94-97) H 10/14/17 04:46 PT/INR, D-dimer PT 12.2 sec (9.0-12.0) H 10/14/17 04:08 INR 1.3 (<1.2) H 10/14/17 04:08 Abnormal lab findings: Abnormal Labs 10/09/17 10/09/17 10/13/17 17:05 17:05 16:08 WBC RBC Hgb 11.1 L Hct MCHC 30.2 L RDW Plt Count Neutrophils # Lymphocytes # PT INR APTT ABG pH ABG pCO2 ABG pO2 ABG Total CO2 ABG O2 Saturation Chloride Creatinine Glucose POC Glucose (mg/dL) 172 H Calcium Magnesium Total Bilirubin AST Total Protein Albumin Crossmatch See Detail 10/13/17 10/13/17 10/13/17 16:18 16:18 16:18 WBC 16.1 H RBC 3.02 L Hgb 8.3 L D Hct 27.0 L MCHC 30.9 L RDW 15.6 H Plt Count 111 L D Neutrophils # 14.3 H Lymphocytes # 0.9 L PT 13.1 H INR 1.4 H APTT 30.5 H ABG pH ABG pCO2 ABG pO2 ABG Total CO2 ABG O2 Saturation Chloride Creatinine 0.49 L Glucose 158 H POC Glucose (mg/dL) Calcium Magnesium 2.7 H Total Bilirubin 1.8 H AST 60 H Total Protein 5.3 L Albumin 3.4 L Crossmatch 10/13/17 10/13/17 10/13/17 16:23 16:40 17:07 WBC RBC Hgb Hct MCHC RDW Plt Count Neutrophils # Lymphocytes # PT INR APTT ABG pH 7.25 L ABG pCO2 55 H ABG pO2 312 H ABG Total CO2 26 H ABG O2 Saturation 99.1 H Chloride Creatinine Glucose POC Glucose (mg/dL) 163 H 170 H Calcium Magnesium Total Bilirubin AST Total Protein Albumin Crossmatch 10/13/17 10/13/17 10/13/17 18:01 18:58 19:00 WBC RBC 2.53 L Hgb 7.0 L* Hct 22.4 L MCHC RDW Plt Count 90 L Neutrophils # 9.5 H Lymphocytes # 0.4 L PT INR APTT ABG pH ABG pCO2 ABG pO2 ABG Total CO2 ABG O2 Saturation Chloride Creatinine Glucose POC Glucose (mg/dL) 176 H 150 H Calcium Magnesium Total Bilirubin AST Total Protein Albumin Crossmatch 10/13/17 10/13/17 10/13/17 20:03 21:00 21:50 WBC 13.5 H RBC 2.53 L Hgb 6.8 L* Hct 23.0 L MCHC 29.6 L RDW 16.1 H Plt Count 91 L Neutrophils # 11.8 H Lymphocytes # 0.9 L PT INR APTT ABG pH ABG pCO2 ABG pO2 ABG Total CO2 ABG O2 Saturation Chloride Creatinine Glucose POC Glucose (mg/dL) 123 H 122 H Calcium Magnesium Total Bilirubin AST Total Protein Albumin Crossmatch 10/13/17 10/13/17 10/13/17 21:50 22:05 23:04 WBC RBC Hgb Hct MCHC RDW Plt Count Neutrophils # Lymphocytes # PT INR APTT ABG pH ABG pCO2 ABG pO2 ABG Total CO2 ABG O2 Saturation Chloride 108 H Creatinine 0.50 L Glucose 162 H POC Glucose (mg/dL) 190 H 148 H Calcium 8.3 L Magnesium 2.5 H Total Bilirubin AST Total Protein Albumin Crossmatch 10/14/17 10/14/17 10/14/17 00:18 01:05 02:10 WBC RBC Hgb Hct MCHC RDW Plt Count Neutrophils # Lymphocytes # PT INR APTT ABG pH ABG pCO2 ABG pO2 ABG Total CO2 ABG O2 Saturation Chloride Creatinine Glucose POC Glucose (mg/dL) 141 H 132 H 115 H Calcium Magnesium Total Bilirubin AST Total Protein Albumin Crossmatch 10/14/17 10/14/17 10/14/17 03:02 04:06 04:08 WBC RBC 2.23 L Hgb 6.0 L* Hct 20.0 L* MCHC 30.1 L RDW 15.7 H Plt Count 79 L Neutrophils # Lymphocytes # 0.6 L PT INR APTT ABG pH ABG pCO2 ABG pO2 ABG Total CO2 ABG O2 Saturation Chloride Creatinine Glucose POC Glucose (mg/dL) 118 H 153 H Calcium Magnesium Total Bilirubin AST Total Protein Albumin Crossmatch 10/14/17 10/14/17 10/14/17 04:08 04:08 04:46 WBC RBC Hgb Hct MCHC RDW Plt Count Neutrophils # Lymphocytes # PT 12.2 H INR 1.3 H APTT 37.9 H ABG pH ABG pCO2 ABG pO2 123 H ABG Total CO2 ABG O2 Saturation 99.2 H Chloride 108 H Creatinine Glucose 140 H POC Glucose (mg/dL) Calcium 8.3 L Magnesium Total Bilirubin 2.1 H AST 69 H Total Protein 4.6 L Albumin 2.9 L Crossmatch 10/14/17 10/14/17 10/14/17 05:15 07:28 08:21 WBC RBC Hgb Hct MCHC RDW Plt Count Neutrophils # Lymphocytes # PT INR APTT ABG pH ABG pCO2 ABG pO2 ABG Total CO2 ABG O2 Saturation Chloride Creatinine Glucose POC Glucose (mg/dL) 140 H 121 H 107 H Calcium Magnesium Total Bilirubin AST Total Protein Albumin Crossmatch 10/14/17 09:08 WBC RBC Hgb Hct MCHC RDW Plt Count Neutrophils # Lymphocytes # PT INR APTT ABG pH ABG pCO2 ABG pO2 ABG Total CO2 ABG O2 Saturation Chloride Creatinine Glucose POC Glucose (mg/dL) 108 H Calcium Magnesium Total Bilirubin AST Total Protein Albumin Crossmatch - Diagnostic Findings Chest x-ray: image reviewed (Labs x-rays a medications are reviewed) Assessment and Plan Assessment: Assessment Postop day #1 status post aortic valve replacement for aortic stenosis and mitral valve repair Postoperative respiratory failure History of rheumatoid arthritis History of CHF History of COPD Hypothyroidism History of diverticular disease History of urinary tract infection Plan: Plan dated 10/14/2017 The patient will hopefully be woken up and weaned later today. I'm waiting for the second unit of PRBCs to be administered. We'll go ahead and if appropriate to pressure support and CPAP when she is fully awake off the propofol. The patient will then have weaning parameters and a cuff leak test. We likely would do a blood gas. Additional recommendations and suggestions are forthcoming. Time with Patient: Greater than 30
[2017-10-14 09:40] LABS: Anisocytosis Slight; HCT 23.3 % (34.0-46.0); HGB 7.1 gm/dL (11.4-16.0); Hypochromasia Marked; MCH 27.7 pg (25.0-35.0); MCHC 30.6 g/dL (31.0-37.0); MCV 90.4 fL (80.0-100.0); Mean Platelet Volume 9.1; Poikilocytosis Slight; RBC 2.57 m/uL (3.80-5.40); RDW 16.1 % (11.5-15.5); WBC 8.8 k/uL (3.8-10.6)
[2017-10-14 09:43] LABS: Platelet Count 68 k/uL (150-450)
[2017-10-14 11:01] LABS: Glucose,Whole Blood 149 mg/dL (75-99)
--- NOTE | 2017-10-14 11:16 | P.CONS ---
History of Present Illness - Reason for Consult Consult date: 10/14/17 Medical management Requesting physician: Moise Rodriguez - Chief Complaint Status post aortic valve replacement and mitral valve repair - History of Present Illness This is a 72-year-old female with a known history aortic of severe aortic valve insufficiency and severe mitral regurgitation, congestive heart failure, rheumatoid arthritis, hypothyroidism, diverticulosis, and COPD. Initially patient underwent aortic valve replacement and mitral valve repair. She is currently intubated. Yesterday during a weaning trial she went into atrial fibrillation with rapid ventricular response. She also had an episode post operatively of A. fib and required cardioversion. Cardiothoracic surgeon has added amiodarone. Cardiology has been consulted. Patient's hemoglobin is 6.0 and platelets are 79. She did receive 1 unit of blood and is scheduled for a second unit today. She is also receiving fresh frozen plasma. Patient remains intubated and sedated. The planning to try another weaning trial today. We've been consulted for medical management. Currently on insulin drip for tight control of blood sugars postoperatively. Patient has no history of diabetes. Review of Systems Unable to obtain patient is intubated and sedated Past Medical History Past Medical History: COPD, GERD/Reflux, Renal Disease, Rheumatoid Arthritis (RA ), Thyroid Disorder Additional Past Medical History / Comment(s): Nephrolithiasis, rheumatoid arthritis several joints, cardiac murmur. diverticular dx, recent UTI/ completed ABX. Episode of nonsustained ventricle tachycardia, SOB w/exertion History of Any Multi-Drug Resistant Organisms: None Reported Past Surgical History: Heart Catheterization, Hysterectomy, Joint Replacement, Orthopedic Surgery Additional Past Surgical History / Comment(s): Recent MATTHEW, ti total knees arthroplasty,lt hip arthroplasty, goiter removed 1962, partial thyroidectomy, cataracts removed with lens implants, REVERSE TOTAL RIGHT SHOULDER; Rotator cuff R shoulder, cervical fusion/injections, colonoscopy. Past Anesthesia/Blood Transfusion Reactions: No Reported Reaction Smoking Status: Former smoker - Past Family History Father Additional Family Medical History / Comment(s): in his 80's of a mi Mother Additional Family Medical History / Comment(s): age 88 in [facility] [place] not sure what she from. hx smoking. Medications and Allergies Home Medications Medication Instructions Recorded Confirmed Type ALPRAZolam [Xanax] 0.25 mg PO Q8H PRN 01/22/14 10/13/17 History Ascorbic Acid [Vitamin C] 500 mg PO DAILY 01/22/14 10/13/17 History Cholecalciferol [Vitamin D3] 2,000 units PO DAILY 01/22/14 10/13/17 History Furosemide [Lasix] 20 mg PO DAILY 06/18/16 10/13/17 History Naproxen [Naprosyn] 500 mg PO Q12HR PRN 07/15/16 10/13/17 History Albuterol Sulfate [Proair Hfa] 1 - 2 puff INHALATION RT-Q6H PRN 09/15/17 History Fluticasone/Salmeterol [Advair Hfa 1 - 2 puff INHALATION RT-BID 09/15/17 History 230-21 Mcg Inhaler] HYDROcodone/APAP 10-325MG [[place] 1 tab PO Q6H PRN 09/15/17 10/13/17 History 10-325] Metoprolol Tartrate [Lopressor] 25 mg PO DAILY #30 tab 09/18/17 10/13/17 Rx Ipratropium/Albuterol Sulfate 1 puff INHALATION RT-QID PRN 09/29/17 10/13/17 History [Combivent Respimat Inhaler] Levothyroxine Sodium [Synthroid] 150 mcg PO DAILY 09/29/17 10/13/17 History Losartan [Cozaar] 12.5 mg PO DAILY 09/29/17 10/13/17 History Ferrous Sulfate [Iron (65 MG 325 mg PO DAILY 10/10/17 10/13/17 History Elemental)] Pantoprazole [Protonix] 40 mg PO DAILY PRN 10/10/17 10/13/17 History Aspirin 324 mg PO ONCE 10/13/17 10/13/17 History Allergies Allergy/AdvReac Type Severity Reaction Status Date / Time lisinopril Allergy Unknown Verified 10/13/17 06:23 Physical Exam Vitals: Vital Signs Temp Pulse Pulse Resp BP Pulse Ox 10/14/17 10:00 74 26 H 100 10/14/17 09:00 85 23 100 10/14/17 08:00 85 20 100 10/14/17 07:56 84 10/14/17 07:35 84 10/14/17 07:09 99.3 F 82 24 123/45 10/14/17 07:00 84 20 100 10/14/17 06:59 99.5 F 83 24 127/43 10/14/17 06:30 83 26 H 100 10/14/17 06:00 84 25 H 100 10/14/17 05:30 86 24 100 10/14/17 05:00 90 24 100 10/14/17 04:30 95 32 H 100 10/14/17 04:15 86 21 100 10/14/17 04:00 84 23 100 10/14/17 03:45 85 23 100 10/14/17 03:30 86 24 100 10/14/17 03:15 84 21 100 10/14/17 03:07 77 10/14/17 03:00 75 23 100 10/14/17 02:53 86 10/14/17 02:45 75 22 100 10/14/17 02:30 75 23 100 10/14/17 02:15 75 22 100 10/14/17 02:00 74 24 100 10/14/17 01:45 79 23 100 10/14/17 01:30 77 26 H 100 10/14/17 01:15 77 25 H 100 10/14/17 01:00 78 24 100 10/14/17 00:45 78 26 H 100 10/14/17 00:30 78 24 100 10/14/17 00:15 79 26 H 100 10/14/17 00:00 80 22 100 10/13/17 23:45 82 22 100 10/13/17 23:30 83 20 100 10/13/17 23:15 84 20 100 10/13/17 23:08 83 10/13/17 23:00 81 20 100 10/13/17 22:58 82 10/13/17 22:45 82 18 100 10/13/17 22:30 73 18 100 10/13/17 22:15 81 17 100 10/13/17 22:00 77 38 H 87 L 10/13/17 21:45 85 31 H 90 L 10/13/17 21:30 85 19 100 10/13/17 21:15 85 44 H 100 10/13/17 21:00 81 19 100 10/13/17 20:45 82 19 100 10/13/17 20:30 83 22 100 10/13/17 20:15 82 20 100 02/12/18 20:00 82 108 H 22 100 02/12/18 19:45 82 20 100 10/13/17 19:30 81 20 100 10/13/17 19:24 80 10/13/17 19:16 79 10/13/17 19:15 79 18 100 10/13/17 19:00 80 25 H 100 10/13/17 18:45 81 23 100 10/13/17 18:30 83 18 100 10/13/17 18:15 81 11 L 100 10/13/17 18:00 89 9 L 100 10/13/17 17:45 89 14 100 10/13/17 17:30 89 12 100 10/13/17 17:15 89 12 100 10/13/17 17:00 89 11 L 81/37 100 10/13/17 16:45 89 18 102/46 100 10/13/17 16:44 98 10/13/17 16:34 101 H 10/13/17 16:30 89 20 102/46 100 10/13/17 16:15 89 16 102/46 100 10/13/17 16:02 100 Intake and Output 10/13/17 10/14/17 10/14/17 22:59 06:59 14:59 Intake Total 621.336 970.168 852.88 Output Total 2516 892 265 Balance -1894.664 78.168 587.88 Intake: IV 506 777.5 421 0.9 NaCl pressure bag 36 72 36 CO/CI injectate 120 240 120 Lactated Ringers 1,000 ml 350 400 200 @ 20 mls/hr IV .Q24H [facility] Rx#:[id number] Milrinone-D5w Pmx 20 mg 45.5 65 In Dextrose/Water 1 100ml .bag @ 0.3 MCG/KG/MIN 5.3 mls/hr IV .[id number] [facility] Rx#:[id number] ceFAZolin 2,000 mg In 20 Sodium Chloride 0.9% 30 ml @ Per Protocol IVPB ONCE ONE Rx#:[id number] Intake, IV Titration 115.336 192.668 121.88 Amount Clevidipine Butyrate 25 5.734 mg In Empty Bag 1 bag @ 1 MG/HR 2 mls/hr IV .Q24H [facility] Rx#:[id number] Insulin Regular 100 unit 14.816 12.375 20.75 In Sodium Chloride 0.9% 100 ml @ Per Protocol IV .Q0M [facility] Rx#:[id number] Milrinone-D5w Pmx 20 mg 86.19 24.2 In Dextrose/Water 1 100ml .bag @ 0.3 MCG/KG/MIN 5.3 mls/hr IV .[id number] [facility] Rx#:[id number] Norepinephrin 4 mg-0.9% 18.746 Ns Pmx 4 mg In 250 ml @ Titrate IV .Q0M [facility] Rx#: [id number] Propofol 1,000 mg In 76.040 94.103 76.93 Empty Bag 1 bag @ Titrate IV .Q0M [facility] Rx#: [id number] Blood Product 0 0 310 Rc As-1 Unit 0 310 [id number] Rc As-3 Unit 0 [id number] Output: Chest Tube Drainage 601 598 140 Chest Tube Mediastinal 460 434 100 Left Pleural 141 164 40 Urine 915 294 125 Estimated Blood Loss 1000 Other: Voiding Method Indwelling Catheter Indwelling Catheter Indwelling Catheter # Bowel Movements 0 0 0 Weight 62.7 kg ABP, PAP, CO, CI - Last 8 Hours Arterial Blood Pressure 98/41 Arterial Blood Pressure 114/42 Arterial Blood Pressure 122/48 Arterial Blood Pressure 125/42 Arterial Blood Pressure 121/38 Arterial Blood Pressure 135/37 Arterial Blood Pressure 125/35 Arterial Blood Pressure 122/36 Arterial Blood Pressure 129/42 Arterial Blood Pressure 128/38 Arterial Blood Pressure 122/33 Arterial Blood Pressure 132/39 Arterial Blood Pressure 128/44 Arterial Blood Pressure 120/37 Pulmonary Artery Pressure 37/15 Pulmonary Artery Pressure 41/21 Pulmonary Artery Pressure 40/22 Pulmonary Artery Pressure 36/19 Pulmonary Artery Pressure 35/18 Pulmonary Artery Pressure 35/15 Pulmonary Artery Pressure 34/16 Pulmonary Artery Pressure 35/16 Pulmonary Artery Pressure 43/21 Pulmonary Artery Pressure 40/18 Pulmonary Artery Pressure 36/18 Pulmonary Artery Pressure 41/20 Pulmonary Artery Pressure 44/20 Pulmonary Artery Pressure 41/19 Cardiac Output 2.7 Cardiac Output 4 Cardiac Output 4 Cardiac Output 5.2 Cardiac Output 5.2 Cardiac Output 6.2 Cardiac Output 6.5 Cardiac Index 1.7 Cardiac Index 2.6 Cardiac Index 3.3 Cardiac Index 4 Cardiac Index 4.2 Head normocephalic Neck supple Lungs wheezing noted bilaterally. [address] Heart regular rate and rhythm S1-S2, no rub or gallop Abdomen is soft nontender nondistended positive bowel sounds no hepatosplenomegaly Extremities no edema Neuro intubated and sedated Results CBC & Chem 7: 10/14/17 09:10 10/14/17 04:08 Labs: Abnormal Lab Results - Last 24 Hours (Table) 10/09/17 10/13/17 10/13/17 Range/Units 17:05 16:08 16:18 WBC 16.1 H (3.8-10.6) k/uL RBC 3.02 L (3.80-5.40) m/uL Hgb 8.3 L D (11.4-16.0) gm/dL Hct 27.0 L (34.0-46.0) % MCHC 30.9 L (31.0-37.0) g/dL RDW 15.6 H (11.5-15.5) % Plt Count 111 L D (150-450) k/uL Neutrophils # 14.3 H (1.3-7.7) k/uL Lymphocytes # 0.9 L (1.0-4.8) k/uL PT (9.0-12.0) sec INR (<1.2) APTT (22.0-30.0) sec ABG pH (7.35-7.45) ABG pCO2 (35-45) mmHg ABG pO2 (83-108) mmHg ABG Total CO2 (19-24) mmol/L ABG O2 Saturation (94-97) % Chloride (98-107) mmol/L Creatinine (0.52-1.04) mg/dL Glucose (74-99) mg/dL POC Glucose (mg/dL) 172 H (75-99) mg/dL Calcium (8.4-10.2) mg/dL Magnesium (1.6-2.3) mg/dL Total Bilirubin (0.2-1.3) mg/dL AST (14-36) U/L Total Protein (6.3-8.2) g/dL Albumin (3.5-5.0) g/dL Crossmatch See Detail 10/13/17 10/13/17 10/13/17 Range/Units 16:18 16:18 16:23 WBC (3.8-10.6) k/uL RBC (3.80-5.40) m/uL Hgb (11.4-16.0) gm/dL Hct (34.0-46.0) % MCHC (31.0-37.0) g/dL RDW (11.5-15.5) % Plt Count (150-450) k/uL Neutrophils # (1.3-7.7) k/uL Lymphocytes # (1.0-4.8) k/uL PT 13.1 H (9.0-12.0) sec INR 1.4 H (<1.2) APTT 30.5 H (22.0-30.0) sec ABG pH 7.25 L (7.35-7.45) ABG pCO2 55 H (35-45) mmHg ABG pO2 312 H (83-108) mmHg ABG Total CO2 26 H (19-24) mmol/L ABG O2 Saturation 99.1 H (94-97) % Chloride (98-107) mmol/L Creatinine 0.49 L (0.52-1.04) mg/dL Glucose 158 H (74-99) mg/dL POC Glucose (mg/dL) (75-99) mg/dL Calcium (8.4-10.2) mg/dL Magnesium 2.7 H (1.6-2.3) mg/dL Total Bilirubin 1.8 H (0.2-1.3) mg/dL AST 60 H (14-36) U/L Total Protein 5.3 L (6.3-8.2) g/dL Albumin 3.4 L (3.5-5.0) g/dL Crossmatch 10/13/17 10/13/17 10/13/17 Range/Units 16:40 17:07 18:01 WBC (3.8-10.6) k/uL RBC (3.80-5.40) m/uL Hgb (11.4-16.0) gm/dL Hct (34.0-46.0) % MCHC (31.0-37.0) g/dL RDW (11.5-15.5) % Plt Count (150-450) k/uL Neutrophils # (1.3-7.7) k/uL Lymphocytes # (1.0-4.8) k/uL PT (9.0-12.0) sec INR (<1.2) APTT (22.0-30.0) sec ABG pH (7.35-7.45) ABG pCO2 (35-45) mmHg ABG pO2 (83-108) mmHg ABG Total CO2 (19-24) mmol/L ABG O2 Saturation (94-97) % Chloride (98-107) mmol/L Creatinine (0.52-1.04) mg/dL Glucose (74-99) mg/dL POC Glucose (mg/dL) 163 H 170 H 176 H (75-99) mg/dL Calcium (8.4-10.2) mg/dL Magnesium (1.6-2.3) mg/dL Total Bilirubin (0.2-1.3) mg/dL AST (14-36) U/L Total Protein (6.3-8.2) g/dL Albumin (3.5-5.0) g/dL Crossmatch 10/13/17 10/13/17 10/13/17 Range/Units 18:58 19:00 20:03 WBC (3.8-10.6) k/uL RBC 2.53 L (3.80-5.40) m/uL Hgb 7.0 L* (11.4-16.0) gm/dL Hct 22.4 L (34.0-46.0) % MCHC (31.0-37.0) g/dL RDW (11.5-15.5) % Plt Count 90 L (150-450) k/uL Neutrophils # 9.5 H (1.3-7.7) k/uL Lymphocytes # 0.4 L (1.0-4.8) k/uL PT (9.0-12.0) sec INR (<1.2) APTT (22.0-30.0) sec ABG pH (7.35-7.45) ABG pCO2 (35-45) mmHg ABG pO2 (83-108) mmHg ABG Total CO2 (19-24) mmol/L ABG O2 Saturation (94-97) % Chloride (98-107) mmol/L Creatinine (0.52-1.04) mg/dL Glucose (74-99) mg/dL POC Glucose (mg/dL) 150 H 123 H (75-99) mg/dL Calcium (8.4-10.2) mg/dL Magnesium (1.6-2.3) mg/dL Total Bilirubin (0.2-1.3) mg/dL AST (14-36) U/L Total Protein (6.3-8.2) g/dL Albumin (3.5-5.0) g/dL Crossmatch 10/13/17 10/13/17 10/13/17 Range/Units 21:00 21:50 21:50 WBC 13.5 H (3.8-10.6) k/uL RBC 2.53 L (3.80-5.40) m/uL Hgb 6.8 L* (11.4-16.0) gm/dL Hct 23.0 L (34.0-46.0) % MCHC 29.6 L (31.0-37.0) g/dL RDW 16.1 H (11.5-15.5) % Plt Count 91 L (150-450) k/uL Neutrophils # 11.8 H (1.3-7.7) k/uL Lymphocytes # 0.9 L (1.0-4.8) k/uL PT (9.0-12.0) sec INR (<1.2) APTT (22.0-30.0) sec ABG pH (7.35-7.45) ABG pCO2 (35-45) mmHg ABG pO2 (83-108) mmHg ABG Total CO2 (19-24) mmol/L ABG O2 Saturation (94-97) % Chloride 108 H (98-107) mmol/L Creatinine 0.50 L (0.52-1.04) mg/dL Glucose 162 H (74-99) mg/dL POC Glucose (mg/dL) 122 H (75-99) mg/dL Calcium 8.3 L (8.4-10.2) mg/dL Magnesium 2.5 H (1.6-2.3) mg/dL Total Bilirubin (0.2-1.3) mg/dL AST (14-36) U/L Total Protein (6.3-8.2) g/dL Albumin (3.5-5.0) g/dL Crossmatch 10/13/17 10/13/17 10/14/17 Range/Units 22:05 23:04 00:18 WBC (3.8-10.6) k/uL RBC (3.80-5.40) m/uL Hgb (11.4-16.0) gm/dL Hct (34.0-46.0) % MCHC (31.0-37.0) g/dL RDW (11.5-15.5) % Plt Count (150-450) k/uL Neutrophils # (1.3-7.7) k/uL Lymphocytes # (1.0-4.8) k/uL PT (9.0-12.0) sec INR (<1.2) APTT (22.0-30.0) sec ABG pH (7.35-7.45) ABG pCO2 (35-45) mmHg ABG pO2 (83-108) mmHg ABG Total CO2 (19-24) mmol/L ABG O2 Saturation (94-97) % Chloride (98-107) mmol/L Creatinine (0.52-1.04) mg/dL Glucose (74-99) mg/dL POC Glucose (mg/dL) 190 H 148 H 141 H (75-99) mg/dL Calcium (8.4-10.2) mg/dL Magnesium (1.6-2.3) mg/dL Total Bilirubin (0.2-1.3) mg/dL AST (14-36) U/L Total Protein (6.3-8.2) g/dL Albumin (3.5-5.0) g/dL Crossmatch 10/14/17 10/14/17 10/14/17 Range/Units 01:05 02:10 03:02 WBC (3.8-10.6) k/uL RBC (3.80-5.40) m/uL Hgb (11.4-16.0) gm/dL Hct (34.0-46.0) % MCHC (31.0-37.0) g/dL RDW (11.5-15.5) % Plt Count (150-450) k/uL Neutrophils # (1.3-7.7) k/uL Lymphocytes # (1.0-4.8) k/uL PT (9.0-12.0) sec INR (<1.2) APTT (22.0-30.0) sec ABG pH (7.35-7.45) ABG pCO2 (35-45) mmHg ABG pO2 (83-108) mmHg ABG Total CO2 (19-24) mmol/L ABG O2 Saturation (94-97) % Chloride (98-107) mmol/L Creatinine (0.52-1.04) mg/dL Glucose (74-99) mg/dL POC Glucose (mg/dL) 132 H 115 H 118 H (75-99) mg/dL Calcium (8.4-10.2) mg/dL Magnesium (1.6-2.3) mg/dL Total Bilirubin (0.2-1.3) mg/dL AST (14-36) U/L Total Protein (6.3-8.2) g/dL Albumin (3.5-5.0) g/dL Crossmatch 10/14/17 10/14/17 10/14/17 Range/Units 04:06 04:08 04:08 WBC (3.8-10.6) k/uL RBC 2.23 L (3.80-5.40) m/uL Hgb 6.0 L* (11.4-16.0) gm/dL Hct 20.0 L* (34.0-46.0) % MCHC 30.1 L (31.0-37.0) g/dL RDW 15.7 H (11.5-15.5) % Plt Count 79 L (150-450) k/uL Neutrophils # (1.3-7.7) k/uL Lymphocytes # 0.6 L (1.0-4.8) k/uL PT (9.0-12.0) sec INR (<1.2) APTT (22.0-30.0) sec ABG pH (7.35-7.45) ABG pCO2 (35-45) mmHg ABG pO2 (83-108) mmHg ABG Total CO2 (19-24) mmol/L ABG O2 Saturation (94-97) % Chloride 108 H (98-107) mmol/L Creatinine (0.52-1.04) mg/dL Glucose 140 H (74-99) mg/dL POC Glucose (mg/dL) 153 H (75-99) mg/dL Calcium 8.3 L (8.4-10.2) mg/dL Magnesium (1.6-2.3) mg/dL Total Bilirubin 2.1 H (0.2-1.3) mg/dL AST 69 H (14-36) U/L Total Protein 4.6 L (6.3-8.2) g/dL Albumin 2.9 L (3.5-5.0) g/dL Crossmatch 10/14/17 10/14/17 10/14/17 Range/Units 04:08 04:46 05:15 WBC (3.8-10.6) k/uL RBC (3.80-5.40) m/uL Hgb (11.4-16.0) gm/dL Hct (34.0-46.0) % MCHC (31.0-37.0) g/dL RDW (11.5-15.5) % Plt Count (150-450) k/uL Neutrophils # (1.3-7.7) k/uL Lymphocytes # (1.0-4.8) k/uL PT 12.2 H (9.0-12.0) sec INR 1.3 H (<1.2) APTT 37.9 H (22.0-30.0) sec ABG pH (7.35-7.45) ABG pCO2 (35-45) mmHg ABG pO2 123 H (83-108) mmHg ABG Total CO2 (19-24) mmol/L ABG O2 Saturation 99.2 H (94-97) % Chloride (98-107) mmol/L Creatinine (0.52-1.04) mg/dL Glucose (74-99) mg/dL POC Glucose (mg/dL) 140 H (75-99) mg/dL Calcium (8.4-10.2) mg/dL Magnesium (1.6-2.3) mg/dL Total Bilirubin (0.2-1.3) mg/dL AST (14-36) U/L Total Protein (6.3-8.2) g/dL Albumin (3.5-5.0) g/dL Crossmatch 10/14/17 10/14/17 10/14/17 Range/Units 07:28 08:21 09:08 WBC (3.8-10.6) k/uL RBC (3.80-5.40) m/uL Hgb (11.4-16.0) gm/dL Hct (34.0-46.0) % MCHC (31.0-37.0) g/dL RDW (11.5-15.5) % Plt Count (150-450) k/uL Neutrophils # (1.3-7.7) k/uL Lymphocytes # (1.0-4.8) k/uL PT (9.0-12.0) sec INR (<1.2) APTT (22.0-30.0) sec ABG pH (7.35-7.45) ABG pCO2 (35-45) mmHg ABG pO2 (83-108) mmHg ABG Total CO2 (19-24) mmol/L ABG O2 Saturation (94-97) % Chloride (98-107) mmol/L Creatinine (0.52-1.04) mg/dL Glucose (74-99) mg/dL POC Glucose (mg/dL) 121 H 107 H 108 H (75-99) mg/dL Calcium (8.4-10.2) mg/dL Magnesium (1.6-2.3) mg/dL Total Bilirubin (0.2-1.3) mg/dL AST (14-36) U/L Total Protein (6.3-8.2) g/dL Albumin (3.5-5.0) g/dL Crossmatch 10/14/17 10/14/17 Range/Units 09:10 10:58 WBC (3.8-10.6) k/uL RBC 2.57 L (3.80-5.40) m/uL Hgb 7.1 L (11.4-16.0) gm/dL Hct 23.3 L (34.0-46.0) % MCHC 30.6 L (31.0-37.0) g/dL RDW 16.1 H (11.5-15.5) % Plt Count 68 L (150-450) k/uL Neutrophils # (1.3-7.7) k/uL Lymphocytes # (1.0-4.8) k/uL PT (9.0-12.0) sec INR (<1.2) APTT (22.0-30.0) sec ABG pH (7.35-7.45) ABG pCO2 (35-45) mmHg ABG pO2 (83-108) mmHg ABG Total CO2 (19-24) mmol/L ABG O2 Saturation (94-97) % Chloride (98-107) mmol/L Creatinine (0.52-1.04) mg/dL Glucose (74-99) mg/dL POC Glucose (mg/dL) 149 H (75-99) mg/dL Calcium (8.4-10.2) mg/dL Magnesium (1.6-2.3) mg/dL Total Bilirubin (0.2-1.3) mg/dL AST (14-36) U/L Total Protein (6.3-8.2) g/dL Albumin (3.5-5.0) g/dL Crossmatch Assessment and Plan Assessment: 1. Postop day #1 status post aortic valve replacement and mitral valve repair for severe aortic valve insufficiency and severe mitral valve stenosis 2. Episodes of paroxysmal atrial fibrillation: Currently in sinus rhythm. Amiodarone started by cardiothoracic surgeon 3. Expected acute blood loss anemia secondary to surgery. Patient receiving 2 units of blood. Hemoglobin is 6.0 4. Thrombocytopenia: Monitor closely while on heparin. Patient receiving fresh frozen plasma 5. Postop respiratory failure requiring mechanical ventilation 6. History of COPD 7. Hypothyroidism 8. Chronic systolic congestive heart failure with an EF of 40-45% 9. Rheumatoid arthritis Thank you for this consultation. We will continue to follow along with you during patient's hospitalization. Time with Patient: Greater than 30 (Greater than 50% of the total time spent in counseling and coordination of care.I performed an examination of the patient and discussed their management with the physician Lacing Presser. I have reviewed the Physician Lacing Presser's notes and agree with the documented findings and plan of care)
--- NOTE | 2017-10-14 11:21 | P.CRDCN ---
History of Present Illness Consult date: 10/14/17 History of present illness: This is a 72-year-old female with history of rheumatoid arthritis, COPD, aortic stenosis and also previous CHF.. Patient underwent aortic valve replacement and mitral valve repair. She was being followed by Dr. Vaughn at [facility]. She had a cardiac catheterization and echocardiogram done at [place]. Patient had issues with cardiac arrhythmia and atrial fibrillation. Patient had a cardioversion yesterday. She received IV amiodarone this morning and became slightly hypotensive requiring vasopressors. Currently she is maintaining sinus rhythm with APCs and first-degree heart block. Her cardiac index is fluctuating between 2.7-1.7. Urine output has been fair. She did receive some Lasix this morning. She required blood transfusion for anemia. Possible weaning efforts will be made later today. He patient does move and respond to touch and painful stimuli. Past Medical History Past Medical History: COPD, GERD/Reflux, Renal Disease, Rheumatoid Arthritis (RA ), Thyroid Disorder Additional Past Medical History / Comment(s): Nephrolithiasis, rheumatoid arthritis several joints, cardiac murmur. diverticular dx, recent UTI/ completed ABX. Episode of nonsustained ventricle tachycardia, SOB w/exertion History of Any Multi-Drug Resistant Organisms: None Reported Past Surgical History: Heart Catheterization, Hysterectomy, Joint Replacement, Orthopedic Surgery Additional Past Surgical History / Comment(s): Recent MATTHEW, ti total knees arthroplasty,lt hip arthroplasty, goiter removed 1962, partial thyroidectomy, cataracts removed with lens implants, REVERSE TOTAL RIGHT SHOULDER; Rotator cuff R shoulder, cervical fusion/injections, colonoscopy. Past Anesthesia/Blood Transfusion Reactions: No Reported Reaction Smoking Status: Former smoker - Past Family History Father Additional Family Medical History / Comment(s): in his 80's of a mi Mother Additional Family Medical History / Comment(s): age 88 in [place] not sure what she from. hx smoking. Medications and Allergies Home Medications Medication Instructions Recorded Confirmed Type ALPRAZolam [Xanax] 0.25 mg PO Q8H PRN 01/22/14 10/13/17 History Ascorbic Acid [Vitamin C] 500 mg PO DAILY 01/22/14 10/13/17 History Cholecalciferol [Vitamin D3] 2,000 units PO DAILY 01/22/14 10/13/17 History Furosemide [Lasix] 20 mg PO DAILY 06/18/16 10/13/17 History Naproxen [Naprosyn] 500 mg PO Q12HR PRN 07/15/16 10/13/17 History Albuterol Sulfate [Proair Hfa] 1 - 2 puff INHALATION RT-Q6H PRN 09/15/17 History Fluticasone/Salmeterol [Advair Hfa 1 - 2 puff INHALATION RT-BID 09/15/17 History 230-21 Mcg Inhaler] HYDROcodone/APAP 10-325MG [[place] 1 tab PO Q6H PRN 09/15/17 10/13/17 History 10-325] Metoprolol Tartrate [Lopressor] 25 mg PO DAILY #30 tab 09/18/17 10/13/17 Rx Ipratropium/Albuterol Sulfate 1 puff INHALATION RT-QID PRN 09/29/17 10/13/17 History [Combivent Respimat Inhaler] Levothyroxine Sodium [Synthroid] 150 mcg PO DAILY 09/29/17 10/13/17 History Losartan [Cozaar] 12.5 mg PO DAILY 09/29/17 10/13/17 History Ferrous Sulfate [Iron (65 MG 325 mg PO DAILY 10/10/17 10/13/17 History Elemental)] Pantoprazole [Protonix] 40 mg PO DAILY PRN 10/10/17 10/13/17 History Aspirin 324 mg PO ONCE 10/13/17 10/13/17 History Allergies Allergy/AdvReac Type Severity Reaction Status Date / Time lisinopril Allergy Unknown Verified 10/13/17 06:23 Physical Exam Vitals: Vital Signs Temp Pulse Pulse Resp BP Pulse Ox 10/14/17 10:00 74 26 H 100 10/14/17 09:00 85 23 100 10/14/17 08:00 85 20 100 10/14/17 07:56 84 10/14/17 07:35 84 10/14/17 07:09 99.3 F 82 24 123/45 10/14/17 07:00 84 20 100 10/14/17 06:59 99.5 F 83 24 127/43 10/14/17 06:30 83 26 H 100 10/14/17 06:00 84 25 H 100 10/14/17 05:30 86 24 100 10/14/17 05:00 90 24 100 10/14/17 04:30 95 32 H 100 10/14/17 04:15 86 21 100 10/14/17 04:00 84 23 100 10/14/17 03:45 85 23 100 10/14/17 03:30 86 24 100 10/14/17 03:15 84 21 100 10/14/17 03:07 77 10/14/17 03:00 75 23 100 10/14/17 02:53 86 10/14/17 02:45 75 22 100 10/14/17 02:30 75 23 100 10/14/17 02:15 75 22 100 10/14/17 02:00 74 24 100 10/14/17 01:45 79 23 100 10/14/17 01:30 77 26 H 100 10/14/17 01:15 77 25 H 100 10/14/17 01:00 78 24 100 10/14/17 00:45 78 26 H 100 10/14/17 00:30 78 24 100 10/14/17 00:15 79 26 H 100 10/14/17 00:00 80 22 100 10/13/17 23:45 82 22 100 10/13/17 23:30 83 20 100 10/13/17 23:15 84 20 100 10/13/17 23:08 83 10/13/17 23:00 81 20 100 10/13/17 22:58 82 10/13/17 22:45 82 18 100 10/13/17 22:30 73 18 100 10/13/17 22:15 81 17 100 10/13/17 22:00 77 38 H 87 L 10/13/17 21:45 85 31 H 90 L 10/13/17 21:30 85 19 100 10/13/17 21:15 85 44 H 100 10/13/17 21:00 81 19 100 10/13/17 20:45 82 19 100 10/13/17 20:30 83 22 100 10/13/17 20:15 82 20 100 10/13/17 20:00 82 108 H 22 100 10/13/17 19:45 82 20 100 10/13/17 19:30 81 20 100 10/13/17 19:24 80 02 19:16 79 10/13/17 19:15 79 18 100 10/13/17 19:00 80 25 H 100 10/13/17 18:45 81 23 100 10/13/17 18:30 83 18 100 10/13/17 18:15 81 11 L 100 10/13/17 18:00 89 9 L 100 10/13/17 17:45 89 14 100 10/13/17 17:30 89 12 100 10/13/17 17:15 89 12 100 10/13/17 17:00 89 11 L 81/37 100 10/13/17 16:45 89 18 102/46 100 10/13/17 16:44 98 10/13/17 16:34 101 H 10/13/17 16:30 89 20 102/46 100 10/13/17 16:15 89 16 102/46 100 10/13/17 16:02 100 Intake and Output 10/13/17 10/14/17 10/14/17 22:59 06:59 14:59 Intake Total 621.336 970.168 852.88 Output Total 2516 892 265 Balance -1894.664 78.168 587.88 Intake: IV 506 777.5 421 0.9 NaCl pressure bag 36 72 36 CO/CI injectate 120 240 120 Lactated Ringers 1,000 ml 350 400 200 @ 20 mls/hr IV .Q24H [facility] Rx#:[id number] Milrinone-D5w Pmx 20 mg 45.5 65 In Dextrose/Water 1 100ml .bag @ 0.3 MCG/KG/MIN 5.3 mls/hr IV .[id number] [facility] Rx#:[id number] ceFAZolin 2,000 mg In 20 Sodium Chloride 0.9% 30 ml @ Per Protocol IVPB ONCE ONE Rx#:[id number] Intake, IV Titration 115.336 192.668 121.88 Amount Clevidipine Butyrate 25 5.734 mg In Empty Bag 1 bag @ 1 MG/HR 2 mls/hr IV .Q24H [facility] Rx#:[id number] Insulin Regular 100 unit 14.816 12.375 20.75 In Sodium Chloride 0.9% 100 ml @ Per Protocol IV .Q0M [facility] Rx#:[id number] Milrinone-D5w Pmx 20 mg 86.19 24.2 In Dextrose/Water 1 100ml .bag @ 0.3 MCG/KG/MIN 5.3 mls/hr IV .[id number] [facility] Rx#:[id number] Norepinephrin 4 mg-0.9% 18.746 Ns Pmx 4 mg In 250 ml @ Titrate IV .Q0M [facility] Rx#: [id number] Propofol 1,000 mg In 76.040 94.103 76.93 Empty Bag 1 bag @ Titrate IV .Q0M [facility] Rx#: [id number] Blood Product 0 0 310 Rc As-1 Unit 0 310 [id number] Rc As-3 Unit 0 [id number] Output: Chest Tube Drainage 601 598 140 Chest Tube Mediastinal 460 434 100 Left Pleural 141 164 40 Urine 915 294 125 Estimated Blood Loss 1000 Other: Voiding Method Indwelling Catheter Indwelling Catheter Indwelling Catheter # Bowel Movements 0 0 0 Weight 62.7 kg ABP, PAP, CO, CI - Last 8 Hours Arterial Blood Pressure 98/41 Arterial Blood Pressure 114/42 Arterial Blood Pressure 122/48 Arterial Blood Pressure 125/42 Arterial Blood Pressure 121/38 Arterial Blood Pressure 135/37 Arterial Blood Pressure 125/35 Arterial Blood Pressure 122/36 Arterial Blood Pressure 129/42 Arterial Blood Pressure 128/38 Arterial Blood Pressure 122/33 Arterial Blood Pressure 132/39 Arterial Blood Pressure 128/44 Pulmonary Artery Pressure 37/15 Pulmonary Artery Pressure 41/21 Pulmonary Artery Pressure 40/22 Pulmonary Artery Pressure 36/19 Pulmonary Artery Pressure 35/18 Pulmonary Artery Pressure 35/15 Pulmonary Artery Pressure 34/16 Pulmonary Artery Pressure 35/16 Pulmonary Artery Pressure 43/21 Pulmonary Artery Pressure 40/18 Pulmonary Artery Pressure 36/18 Pulmonary Artery Pressure 41/20 Pulmonary Artery Pressure 44/20 Cardiac Output 2.7 Cardiac Output 4 Cardiac Output 4 Cardiac Output 5.2 Cardiac Output 5.2 Cardiac Output 6.2 Cardiac Output 6.5 Cardiac Index 1.7 Cardiac Index 2.6 Cardiac Index 3.3 Cardiac Index 4 Cardiac Index 4.2 GENERAL EXAM: Patient is sleepy but easily arousable HEENT: Normocephalic. NECK: No masses, no nuchal rigidity. CHEST: No chest wall deformity. LUNGS: Reduced breath sounds at bases at bases HEART: S1 and S2 normal ABDOMEN: No hepatosplenomegaly, normal bowel sounds, no guarding or rigidity. SKIN: No rashes CENTRAL NERVOUS SYSTEM: Deferred EXTREMITIES: No cyanosis, clubbing or edema. Results 10/14/17 09:10 10/14/17 04:08 Cardiac Enzymes 10/13/17 10/14/17 Range/Units 16:18 04:08 AST 60 H 69 H (14-36) U/L Coagulation 10/13/17 10/14/17 Range/Units 16:18 04:08 PT 13.1 H 12.2 H (9.0-12.0) sec APTT 30.5 H 37.9 H (22.0-30.0) sec CBC 10/13/17 10/13/17 10/13/17 Range/Units 16:18 19:00 21:50 WBC 16.1 H 10.4 13.5 H (3.8-10.6) k/uL RBC 3.02 L 2.53 L 2.53 L (3.80-5.40) m/uL Hgb 8.3 L D 7.0 L* 6.8 L* (11.4-16.0) gm/dL Hct 27.0 L 22.4 L 23.0 L (34.0-46.0) % Plt Count 111 L D 90 L 91 L (150-450) k/uL 10/14/17 10/14/17 Range/Units 04:08 09:10 WBC 8.7 8.8 (3.8-10.6) k/uL RBC 2.23 L 2.57 L (3.80-5.40) m/uL Hgb 6.0 L* 7.1 L (11.4-16.0) gm/dL Hct 20.0 L* 23.3 L (34.0-46.0) % Plt Count 79 L 68 L (150-450) k/uL Comprehensive Metabolic Panel 10/13/17 10/13/17 10/14/17 Range/Units :18 21:50 04:08 Sodium 142 142 141 (137-145) mmol/L Potassium 4.4 3.9 4.1 (3.5-5.1) mmol/L Chloride 106 108 H 108 H (98-107) mmol/L Carbon Dioxide 25 24 23 (22-30) mmol/L BUN 14 16 17 (7-17) mg/dL Creatinine 0.49 L 0.50 L 0.55 (0.52-1.04) mg/dL Glucose 158 H 162 H 140 H (74-99) mg/dL Calcium 8.4 8.3 L 8.3 L (8.4-10.2) mg/dL AST 60 H 69 H (14-36) U/L ALT 27 32 (9-52) U/L Alkaline Phosphatase 44 40 (38-126) U/L Total Protein 5.3 L 4.6 L (6.3-8.2) g/dL Albumin 3.4 L 2.9 L (3.5-5.0) g/dL Current Medications Generic Name Dose Route Start Last Admin Trade Name Freq PRN Reason Stop Dose Admin Hydrocodone Bitart/Acetaminophen 2 each 10/14/17 23:59 [place] 5-325 PO Q4HR PRN Severe Pain Hydrocodone Bitart/Acetaminophen 1 each 10/14/17 23:59 [place] 5-325 PO Q4HR PRN Moderate Pain Albuterol/Ipratropium 3 ml 10/13/17 16:00 10/14/17 07:28 Duoneb 0.5 Mg-3 Mg/3 Ml Soln INHALATION 3 ml RT-Q4H [facility] Administration Albuterol/Ipratropium 3 ml 10/14/17 14:35 Duoneb 0.5 Mg-3 Mg/3 Ml Soln INHALATION RT-Q2H PRN Shortness Of Breath Or Wheezing Albuterol/Ipratropium 3 ml 10/14/17 14:35 Duoneb 0.5 Mg-3 Mg/3 Ml Soln INHALATION RT-QID [facility] Amiodarone HCl 400 mg 10/14/17 09:00 10/14/17 09:13 Cordarone PO 400 mg BID [facility] Administration Aspirin 81 mg 10/14/17 09:00 10/14/17 07:58 Aspirin PO 81 mg DAILY [facility] Administration Atorvastatin Calcium 40 mg 10/14/17 09:00 10/14/17 07:56 Lipitor PO 40 mg DAILY [facility] Administration Benzocaine/Menthol 1 each 10/13/17 15:35 Cepacol Lozenge MUCOUS MEM Q2H PRN Sore Throat Bisacodyl 10 mg 10/14/17 14:35 Dulcolax RECTAL DAILY PRN Constipation Heparin Sodium (Porcine) 5,000 unit 10/13/17 22:35 10/14/17 07:56 Heparin SQ 5,000 unit Q8HR [facility] Administration Milrinone Lactate/Dextrose 20 100 mls @ 5.3 mls/hr 10/13/17 15:30 10/14/17 11 :03 mg/ IV Solution IV 0.3 mcg/kg/min .[id number] [facility] 5.3 mls/hr 0.3 MCG/KG/MIN Administration Norepinephrine Bitartrate 4 mg in 250 mls @ 0 mls/hr 10/13/17 15:30 10/13/17 17:00 Levophed-0.9% Nacl 4 Mg/250ml Pmx IV 0 mcg/min .Q0M [facility] 0 mls/hr Protocol Titration Titrate Acetaminophen 1,000 mg/ IV 100 mls @ 400 mls/hr 10/13/17 18:00 10/14/17 11:04 Solution IVPB 10/14/17 18:01 400 mls/hr Q6HR [facility] Administration Albumin Human 250 ml/ IV 250 mls @ 250 mls/hr 10/13/17 15:35 10/13/17 19:02 Solution IVPB 10/15/17 15:36 250 mls/hr Q1HR PRN Administration For Volume Calcium Gluconate 2,000 mg/ 120 mls @ 100 mls/hr 10/13/17 15:35 Sodium Chloride IVPB 10/14/17 15:36 ONCE PRN Ionized Calcium less than 4.4 Clevidipine 25 mg/ IV Solution 50 mls @ 2 mls/hr 10/13/17 15:35 10/13/17 22: 00 IV 0 mg/hr .Q24H [facility] 0 mls/hr Protocol Titration 1 MG/HR Insulin Human Regular 100 unit 101 mls @ 0 mls/hr 10/13/17 15:35 10/14/17 11: 00 / Sodium Chloride IV 2.5 mls/hr .Q0M [facility] 2.5 mls/hr Protocol Titration Per Protocol Lactated Ringer's 1,000 mls @ 20 mls/hr 10/13/17 15:35 10/13/17 17:09 Lactated Ringers IV 50 mls/hr .Q24H [facility] Administration Propofol 1,000 mg/ IV Solution 100 mls @ 0 mls/hr 10/13/17 15:35 10/14/17 11: 02 IV 25 mcg/kg/min .Q0M [facility] 0 mls/hr Protocol Titration Titrate Magnesium Hydroxide 2,400 mg 10/14/17 14:35 Milk Of Magnesia PO BID PRN Constipation Metoclopramide HCl 10 mg 10/13/17 15:35 Reglan IVP Q4H PRN Nausea And Vomiting Metoprolol Tartrate 12.5 mg 10/14/17 09:00 10/14/17 07:56 Lopressor PO 12.5 mg BID [facility] Administration Miscellaneous Information 1 each 10/13/17 15:35 Magnesium Per Protocol MISCELLANE DAILY PRN Per Protocol Protocol Miscellaneous Information 1 each 10/13/17 15:35 Phosphorus Per Protocol MISCELLANE DAILY PRN Per Protocol Protocol Miscellaneous Information 1 each 10/13/17 15:35 Potassium Per Protocol MISCELLANE DAILY PRN Per Protocol Protocol Morphine Sulfate 2 mg 10/13/17 15:35 10/14/17 04:32 Morphine Sulfate (Inj) IVP 2 mg Q2H PRN Administration Severe Pain Mupirocin 1 applic 10/13/17 21:00 10/14/17 07:56 Bactroban Oint NASAL 10/16/17 21:01 1 applic BID [facility] Administration Ondansetron HCl 4 mg 10/13/17 15:35 Zofran IVP Q6HR PRN Nausea And Vomiting Oxycodone HCl 10 mg 10/13/17 15:35 Oxyir PO 10/14/17 23:59 Q4H PRN Severe Pain Oxycodone HCl 5 mg 10/13/17 15:35 Oxyir PO 10/14/17 23:59 Q4H PRN Moderate Pain Pantoprazole Sodium 40 mg 10/14/17 09:00 10/14/17 07:55 Protonix IVP 40 mg DAILY [facility] Administration Senna/Docusate Sodium 2 each 10/14/17 21:00 Senokot-S PO HS [facility] Sodium Chloride 10 ml 10/13/17 21:00 10/14/17 07:57 Saline Flush IV 10 ml BID [facility] Administration Intake and Output 10/13/17 10/14/17 10/14/17 22:59 06:59 14:59 Intake Total 621.336 970.168 852.88 Output Total 4186 892 265 Balance -1894.664 78.168 587.88 Intake: IV 506 777.5 421 0.9 NaCl pressure bag 36 72 36 CO/CI injectate 120 240 120 Lactated Ringers 1,000 ml 350 400 200 @ 20 mls/hr IV .Q24H [facility] Rx#:[id number] Milrinone-D5w Pmx 20 mg 45.5 65 In Dextrose/Water 1 100ml .bag @ 0.3 MCG/KG/MIN 5.3 mls/hr IV .[id number] [facility] Rx#:[id number] ceFAZolin 2,000 mg In 20 Sodium Chloride 0.9% 30 ml @ Per Protocol IVPB ONCE ONE Rx#:[id number] Intake, IV Titration 115.336 192.668 121.88 Amount Clevidipine Butyrate 25 5.734 mg In Empty Bag 1 bag @ 1 MG/HR 2 mls/hr IV .Q24H [facility] Rx#:[id number] Insulin Regular 100 unit 14.816 12.375 20.75 In Sodium Chloride 0.9% 100 ml @ Per Protocol IV .Q0M [facility] Rx#:[id number] Milrinone-D5w Pmx 20 mg 86.19 24.2 In Dextrose/Water 1 100ml .bag @ 0.3 MCG/KG/MIN 5.3 mls/hr IV .[id number] [facility] Rx#:[id number] Norepinephrin 4 mg-0.9% 18.746 Ns Pmx 4 mg In 250 ml @ Titrate IV .Q0M [facility] Rx#: [id number] Propofol 1,000 mg In 76.040 94.103 76.93 Empty Bag 1 bag @ Titrate IV .Q0M [facility] Rx#: [id number] Blood Product 0 0 310 Rc As-1 Unit 0 310 [id number] Rc As-3 Unit 0 [id number] Output: Chest Tube Drainage 601 598 140 Chest Tube Mediastinal 460 434 100 Left Pleural 141 164 40 Urine 915 294 125 Estimated Blood Loss 1000 Other: Voiding Method Indwelling Catheter Indwelling Catheter Indwelling Catheter # Bowel Movements 0 0 0 Weight 62.7 kg 10/14/17 09:10 10/14/17 04:08 Assessment and Plan (1) Aortic insufficiency Current Visit: Yes Status: Chronic Code(s): I35.1 - NONRHEUMATIC AORTIC ( VALVE) INSUFFICIENCY SNOMED Code(s): 62344510 (2) COPD (chronic obstructive pulmonary disease) Current Visit: Yes Status: Chronic Code(s): J44.9 - CHRONIC OBSTRUCTIVE PULMONARY DISEASE, UNSPECIFIED SNOMED Code(s): 47296234 (3) Mitral regurgitation Current Visit: Yes Status: Chronic Code(s): I34.0 - NONRHEUMATIC MITRAL ( VALVE) INSUFFICIENCY SNOMED Code(s): 00781771 (4) Rheumatoid arthritis Current Visit: Yes Status: Chronic Code(s): M06.9 - RHEUMATOID ARTHRITIS, UNSPECIFIED SNOMED Code(s): 26485762 (5) Systolic heart failure Current Visit: Yes Status: Chronic Code(s): I50.20 - UNSPECIFIED SYSTOLIC ( CONGESTIVE) HEART FAILURE SNOMED Code(s): 870199403 Plan: Continue current management with the blood transfusion as needed and vasopressors. Ventilator being managed with pulmonary. We'll follow her along with you.
[2017-10-14 12:31] LABS: Glucose,Whole Blood 159 mg/dL (75-99)
[2017-10-14 13:50] LABS: ABG Base Excess -0.6 mmol/L; ABG HCO3 23 mmol/L (21-25); ABG Oxygen Saturation 97.9 % (94-97); ABG PCO2 31 mmHg (35-45); ABG PH 7.48 (7.35-7.45); ABG PO2 87 mmHg (83-108); ABG TCO2 24 mmol/L (19-24)
[2017-10-14] MEDS ORDERED: MAGNESIUM HYDROXIDE 2,400 MG/10 ML CUP PO PRN (14:35)
[2017-10-14] MEDS ORDERED: BISACODYL 10 MG SUPP RECTAL PRN (14:35)
[2017-10-14] MEDS ORDERED: CALCIUM GLUCONATE 1,000 MG in SODIUM CHLORIDE 0.9% 100 ML IVPB ONE (14:45)
[2017-10-14 15:02] LABS: Glucose,Whole Blood 115 mg/dL (75-99)
--- NOTE | 2017-10-14 15:03 | CDI ---
Last Revision, August 2017 Documentation Clarification Form Date: 10/14/2017 2:45:00 PM From: Leonarda Sutton Admit Date: 10/13/2017 6:00:00 AM Patient Name: Mirella San Visit Number: [id number] Discharge Date: ATTENTION: The Clinical Documentation Specialists (CDI) and [facility] Coding Staff appreciate your assistance in clarifying documentation. Please respond to the clarification below the line at the bottom and electronically sign. The CDI & [facility] Coding staff will review the response and follow-up if needed. Please note: Queries are made part of the Legal Health Record. If you have any questions, please contact the author of this message via ITS. Dr. Milton Doyle: Postop respiratory failure is documented in the 10/14 pulmonary/critical care consultation. Patients Admitting Diagnosis: Severe aortic insufficiency & Severe mitral valve stenosis Post-Operative Diagnosis: Same Procedure performed: AVR w/bioprosthetic aortic valve, Mitral valve repair, Clip ligation of left atrial appendage & intraoperative MATTHEW under general anesthesia. History/Risk Factors: COPD, Chronic Systolic CHF and Former smoker, Clinical Indicators: "Last night, attempt to wean her, she developed atrial fibrillation with some mild heart failure & blood tinged sputum. Did have weaning parameters." Required cardioverson for paroxysmal atrial fibrillation. VS: Resp rate 31-44, BP 86/32, PO 87 Treatment: Continued on vent postoperatively until 10/14 @ 1403. IV Heparin, IV Insulin, IV Mag Sulf, IV Nitro, IV Cefazolin, IV NaBicarb. Received transfusion of FFP, Platelets & PRBCs. In order to accurately reflect this patients severity of illness, please clarify if the post-operative diagnosis, postoperative respiratory failure is: An expected post-procedural or post-surgical condition; Integral to the procedure; Inherent to the procedure; An unexpected post-procedural or post-surgical condition related to surgical care Other, please specify other cause Unable to determine Please continue to document in your progress notes and discharge summary in order to capture severity of illness and risk of mortality. Include clinical findings that support your diagnosis. MTDD
[2017-10-14] MEDS: LACTATED RINGERS 1,000 ML IV SCH (15:41)
[2017-10-14 17:18] LABS: Glucose,Whole Blood 113 mg/dL (75-99)
[2017-10-14 18:21] LABS: Glucose,Whole Blood 120 mg/dL (75-99)
[2017-10-14 20:04] LABS: Glucose,Whole Blood 122 mg/dL (75-99)
[2017-10-14] MEDS: SENNOSIDES-DOCUSATE SODIUM 1 EACH TAB PO SCH (20:42)
[2017-10-14 21:08] LABS: Glucose,Whole Blood 121 mg/dL (75-99)
[2017-10-14] MEDS: ONDANSETRON 4 MG/2 ML VIAL IVP PRN (22:00)
[2017-10-14 22:06] LABS: Glucose,Whole Blood 112 mg/dL (75-99)
[2017-10-14 23:11] LABS: Glucose,Whole Blood 141 mg/dL (75-99)
[2017-10-15 00:07] LABS: Glucose,Whole Blood 127 mg/dL (75-99)
[2017-10-15] MEDS: HEPARIN SODIUM,PORCINE 5,000 UNIT/ML 1 ML VIAL SQ SCH ×2 (00:53→08:08)
[2017-10-15 01:14] LABS: Glucose,Whole Blood 132 mg/dL (75-99)
[2017-10-15 02:08] LABS: Glucose,Whole Blood 119 mg/dL (75-99)
[2017-10-15] MEDS: HYDROcodone/APAP 5-325MG 1 EACH TAB PO PRN ×4 (02:13→21:36)
[2017-10-15] MEDS: INSULIN REGULAR 100 UNIT in SODIUM CHLORIDE 0.9% 100 ML IV SCH (02:14)
[2017-10-15 03:09] LABS: Glucose,Whole Blood 111 mg/dL (75-99)
[2017-10-15 04:13] LABS: Glucose,Whole Blood 118 mg/dL (75-99)
[2017-10-15 05:16] LABS: Glucose,Whole Blood 132 mg/dL (75-99)
[2017-10-15 05:59] LABS: Glucose,Whole Blood 120 mg/dL (75-99)
[2017-10-15 07:06] LABS: Glucose,Whole Blood 126 mg/dL (75-99)
[2017-10-15 07:08] LABS: Anisocytosis Slight; Basophils % (A) 0 %; Eosinophils % (A) 0 %; HCT 21.6 % (34.0-46.0); Hypochromasia Moderate; Lymphocytes # (A) 0.7 k/uL (1.0-4.8); Lymphocytes % (A) 8 %; MCH 27.7 pg (25.0-35.0); MCHC 31.7 g/dL (31.0-37.0); MCV 87.3 fL (80.0-100.0); Mean Platelet Volume 10.2; Monocytes # (A) 0.3 k/uL (0-1.0); Monocytes % (A) 4 %; Neutrophils # (A) 7.3 k/uL (1.3-7.7); Neutrophils % (A) 87 %; Platelet Count 69 k/uL (150-450); Poikilocytosis Moderate; RBC 2.47 m/uL (3.80-5.40); RDW 16.2 % (11.5-15.5); WBC 8.4 k/uL (3.8-10.6)
[2017-10-15 07:33] LABS: HGB 6.8 gm/dL (11.4-16.0)
[2017-10-15 07:49] LABS: Ionized Calcium 4.9 mg/dL (4.5-5.3)
[2017-10-15 08:03] LABS: ALT 48 U/L (9-52); AST 99 U/L (14-36); Albumin 2.7 g/dL (3.5-5.0); Alkaline Phosphatase 47 U/L (38-126); Anion Gap 11 mmol/L; Blood Urea Nitrogen 28 mg/dL (7-17); Calcium 8.5 mg/dL (8.4-10.2); Carbon Dioxide 23 mmol/L (22-30); Chloride 107 mmol/L (98-107); Glucose 119 mg/dL (74-99); Magnesium 2.3 mg/dL (1.6-2.3); Sodium 141 mmol/L (137-145); Total Bilirubin 1.8 mg/dL (0.2-1.3); Total Protein 4.8 g/dL (6.3-8.2)
[2017-10-15] MEDS: IPRATROPIUM-ALBUTEROL 3 ML NEB INHALATION SCH ×4 (08:07→19:24)
[2017-10-15] MEDS: ASPIRIN 81 MG PO SCH (08:08)
[2017-10-15] MEDS: ATORVASTATIN 40 MG TAB PO SCH (08:08)
[2017-10-15] MEDS: AMIODARONE 200 MG TAB PO SCH ×2 (08:08→21:30)
[2017-10-15] MEDS: METOPROLOL TARTRATE 12.5 MG TAB PO SCH ×2 (08:08→21:31)
[2017-10-15] MEDS: MUPIROCIN 2% OINT 22 GM TUBE NASAL SCH ×2 (08:09→21:31)
[2017-10-15 08:21] LABS: Glucose,Whole Blood 120 mg/dL (75-99)
--- NOTE | 2017-10-15 09:05 | P.PN ---
Subjective Progress Note Date: 10/15/17 Principal diagnosis: Severe aortic insufficiency. Severe mitral regurgitation. History of systolic heart failure, COPD, rheumatoid arthritis, hypothyroidism, diverticulitis, recent urinary tract infection, and previous tobacco dependence. POD #2 aortic valve replacement with a #21 mm Magna Ease bioprosthetic aortic valve, mitral valve repair with a #28 mm CarboMedics annular flex band, clip ligation of left atrial appendage with a #35 mm AtriClip and intraoperative transesophageal echocardiogram Postoperative acute blood loss anemia, expected outcome of surgery. Patient is currently sitting up in a recliner in no acute distress. He was successfully extubated yesterday afternoon at 14:03. Does state that it is painful to cough. She did receive 1 unit PRBCs yesterday with increase in hemoglobin from 6.0 to 7.1. Hemoglobin this morning 6.8, will give another unit today. Objective - Vital Signs Vital signs: Vital Signs Temp 100.4 F H 10/15/17 04:00 Pulse 85 10/15/17 08:00 Resp 25 H 10/15/17 08:00 BP 123/45 10/14/17 07:09 Pulse Ox 96 10/15/17 08:00 Intake & Output 10/14/17 10/15/17 10/15/17 18:59 06:59 18:59 Intake Total 1277.770 390.075 61.084 Output Total 1055 505 135 Balance 222.770 -114.925 -73.916 Weight 62.7 kg 62.7 kg Intake: IV 802 379 58 0.9 NaCl pressure bag 117 99 18 CO/CI injectate 210 60 Lactated Ringers 1,000 ml 410 220 40 @ 20 mls/hr IV .Q24H [facility] Rx#:[id number] Milrinone-D5w Pmx 20 mg 65 In Dextrose/Water 1 100ml .bag @ 0.1 MCG/KG/MIN 1. 76 mls/hr IV .Q24H [facility] Rx #:[id number] Intake, IV Titration 165.770 11.075 3.084 Amount Insulin Regular 100 unit 40.083 11.075 3.084 In Sodium Chloride 0.9% 100 ml @ Per Protocol IV .Q0M [facility] Rx#:[id number] Milrinone-D5w Pmx 20 mg 48.757 In Dextrose/Water 1 100ml .bag @ 0.1 MCG/KG/MIN 1. 76 mls/hr IV .Q24H [facility] Rx #:[id number] Propofol 1,000 mg In 76.93 Empty Bag 1 bag @ Titrate IV .Q0M [facility] Rx#: [id number] Blood Product 310 Rc As-1 Unit 310 [id number] Output: Chest Tube Drainage 330 220 50 Chest Tube Mediastinal 220 160 30 Left Pleural 110 60 20 Urine 725 285 85 Other: Voiding Method Indwelling Catheter Indwelling Catheter # Bowel Movements 0 0 ABP, PAP, CO, CI - Last Documented Arterial Blood Pressure 98/36 Pulmonary Artery Pressure 31/12 Cardiac Output 4.8 Cardiac Index 3.1 - Constitutional General appearance: Present: cooperative, no acute distress - Respiratory Details: Lungs sounds diminished bilaterally with coarse breath sounds in the bases. Respirations even and nonlabored. Currently on 4 L nasal cannula oxygen saturation 99%. Only able to achieve 250 on her incentive spirometry. Weak cough. Mediastinal chest tube to -20 cm wall suction, 100 mL serosanguineous drainage overnight, 450 mL last 24 hours. Left pleural chest tube to -20 cm wall suction, 30 mL serosanguineous drainage overnight, 250 mL last 24 hours. No air leak present. - Cardiovascular Details: S1, S2 present. Regular rate and rhythm, sinus rhythm on telemetry. Sternum stable. A/V epicardial pacemaker wires present, grounded. Palpable peripheral pulses bilaterally. Trace edema to bilateral upper extremities and lower extremities. No calf pain or tenderness noted. Right internal jugular Cordis/ Windsor, right radial arterial line present. Last CO/CI this morning 4.8/3.1 on 0.1 mics of Primacor. Heart hugger in place with patient demonstrating appropriate use, antiembolism stockings, SCDs present. - Gastrointestinal Gastrointestinal Comment(s): Abdomen soft, nontender, nondistended. Hypoactive bowel sounds present 4 quadrants. Tolerating minimal diet. - Genitourinary Genitourinary Comment(s): Villegas present draining clear, yellow urine. Output 25-30 mL/h. - Integumentary Integumentary Comment(s): Skin is warm and dry with evidence of good perfusion. Anterior chest incision well approximated and covered with dry intact dressing. - Neurologic Neurologic: Present: CNII-XII intact - Musculoskeletal Musculoskeletal: Present: strength equal bilaterally - Psychiatric Psychiatric: Present: A&O x's 3, appropriate affect, intact judgment & insight - Allied health notes Allied health notes reviewed: nursing - Labs CBC & Chem 7: 10/15/17 06:50 10/15/17 06:50 Labs: Abnormal Lab Results - Last 24 Hours (Table) 10/09/17 10/14/17 10/14/17 Range/Units 17:05 09:08 09:10 RBC 2.57 L (3.80-5.40) m/uL Hgb 7.1 L (11.4-16.0) gm/dL Hct 23.3 L (34.0-46.0) % MCHC 30.6 L (31.0-37.0) g/dL RDW 16.1 H (11.5-15.5) % Plt Count 68 L (150-450) k/uL Lymphocytes # (1.0-4.8) k/uL ABG pH (7.35-7.45) ABG pCO2 (35-45) mmHg ABG O2 Saturation (94-97) % BUN (7-17) mg/dL Glucose (74-99) mg/dL POC Glucose (mg/dL) 108 H (75-99) mg/dL Total Bilirubin (0.2-1.3) mg/dL AST (14-36) U/L Total Protein (6.3-8.2) g/dL Albumin (3.5-5.0) g/dL Crossmatch See Detail 10/14/17 10/14/17 10/14/17 Range/Units 10:58 12:28 13:47 RBC (3.80-5.40) m/uL Hgb (11.4-16.0) gm/dL Hct (34.0-46.0) % MCHC (31.0-37.0) g/dL RDW (11.5-15.5) % Plt Count (150-450) k/uL Lymphocytes # (1.0-4.8) k/uL ABG pH 7.48 H (7.35-7.45) ABG pCO2 31 L (35-45) mmHg ABG O2 Saturation 97.9 H (94-97) % BUN (7-17) mg/dL Glucose (74-99) mg/dL POC Glucose (mg/dL) 149 H 159 H (75-99) mg/dL Total Bilirubin (0.2-1.3) mg/dL AST (14-36) U/L Total Protein (6.3-8.2) g/dL Albumin (3.5-5.0) g/dL Crossmatch 10/14/17 10/14/17 10/14/17 Range/Units 14:54 17:16 18:19 RBC (3.80-5.40) m/uL Hgb (11.4-16.0) gm/dL Hct (34.0-46.0) % MCHC (31.0-37.0) g/dL RDW (11.5-15.5) % Plt Count (150-450) k/uL Lymphocytes # (1.0-4.8) k/uL ABG pH (7.35-7.45) ABG pCO2 (35-45) mmHg ABG O2 Saturation (94-97) % BUN (7-17) mg/dL Glucose (74-99) mg/dL POC Glucose (mg/dL) 115 H 113 H 120 H (75-99) mg/dL Total Bilirubin (0.2-1.3) mg/dL AST (14-36) U/L Total Protein (6.3-8.2) g/dL Albumin (3.5-5.0) g/dL Crossmatch 10/14/17 10/14/17 10/14/17 Range/Units 20:02 21:06 22:04 RBC (3.80-5.40) m/uL Hgb (11.4-16.0) gm/dL Hct (34.0-46.0) % MCHC (31.0-37.0) g/dL RDW (11.5-15.5) % Plt Count (150-450) k/uL Lymphocytes # (1.0-4.8) k/uL ABG pH (7.35-7.45) ABG pCO2 (35-45) mmHg ABG O2 Saturation (94-97) % BUN (7-17) mg/dL Glucose (74-99) mg/dL POC Glucose (mg/dL) 122 H 121 H 112 H (75-99) mg/dL Total Bilirubin (0.2-1.3) mg/dL AST (14-36) U/L Total Protein (6.3-8.2) g/dL Albumin (3.5-5.0) g/dL Crossmatch 10/14/17 10/15/17 10/15/17 Range/Units 23:08 00:06 01:12 RBC (3.80-5.40) m/uL Hgb (11.4-16.0) gm/dL Hct (34.0-46.0) % MCHC (31.0-37.0) g/dL RDW (11.5-15.5) % Plt Count (150-450) k/uL Lymphocytes # (1.0-4.8) k/uL ABG pH (7.35-7.45) ABG pCO2 (35-45) mmHg ABG O2 Saturation (94-97) % BUN (7-17) mg/dL Glucose (74-99) mg/dL POC Glucose (mg/dL) 141 H 127 H 132 H (75-99) mg/dL Total Bilirubin (0.2-1.3) mg/dL AST (14-36) U/L Total Protein (6.3-8.2) g/dL Albumin (3.5-5.0) g/dL Crossmatch 10/15/17 10/15/17 10/15/17 Range/Units 02:06 03:08 04:10 RBC (3.80-5.40) m/uL Hgb (11.4-16.0) gm/dL Hct (34.0-46.0) % MCHC (31.0-37.0) g/dL RDW (11.5-15.5) % Plt Count (150-450) k/uL Lymphocytes # (1.0-4.8) k/uL ABG pH (7.35-7.45) ABG pCO2 (35-45) mmHg ABG O2 Saturation (94-97) % BUN (7-17) mg/dL Glucose (74-99) mg/dL POC Glucose (mg/dL) 119 H 111 H 118 H (75-99) mg/dL Total Bilirubin (0.2-1.3) mg/dL AST (14-36) U/L Total Protein (6.3-8.2) g/dL Albumin (3.5-5.0) g/dL Crossmatch 10/15/17 10/15/17 10/15/17 Range/Units 05:14 05:58 06:50 RBC (3.80-5.40) m/uL Hgb (11.4-16.0) gm/dL Hct (34.0-46.0) % MCHC (31.0-37.0) g/dL RDW (11.5-15.5) % Plt Count (150-450) k/uL Lymphocytes # (1.0-4.8) k/uL ABG pH (7.35-7.45) ABG pCO2 (35-45) mmHg ABG O2 Saturation (94-97) % BUN 28 H (7-17) mg/dL Glucose 119 H (74-99) mg/dL POC Glucose (mg/dL) 132 H 120 H (75-99) mg/dL Total Bilirubin 1.8 H (0.2-1.3) mg/dL AST 99 H (14-36) U/L Total Protein 4.8 L (6.3-8.2) g/dL Albumin 2.7 L (3.5-5.0) g/dL Crossmatch 10/15/17 10/15/17 10/15/17 Range/Units 06:50 07:05 08:20 RBC 2.47 L (3.80-5.40) m/uL Hgb 6.8 L* (11.4-16.0) gm/dL Hct 21.6 L (34.0-46.0) % MCHC (31.0-37.0) g/dL RDW 16.2 H (11.5-15.5) % Plt Count 69 L (150-450) k/uL Lymphocytes # 0.7 L (1.0-4.8) k/uL ABG pH (7.35-7.45) ABG pCO2 (35-45) mmHg ABG O2 Saturation (94-97) % BUN (7-17) mg/dL Glucose (74-99) mg/dL POC Glucose (mg/dL) 126 H 120 H (75-99) mg/dL Total Bilirubin (0.2-1.3) mg/dL AST (14-36) U/L Total Protein (6.3-8.2) g/dL Albumin (3.5-5.0) g/dL Crossmatch - Imaging and Cardiology Chest x-ray: report reviewed, image reviewed Assessment and Plan (1) Tobacco dependence in remission Current Visit: No Status: Resolved Code(s): F17.201 - NICOTINE DEPENDENCE, UNSPECIFIED, IN REMISSION SNOMED Code(s): 750442220 (2) Acute blood loss anemia Current Visit: Yes Status: Acute Code(s): D62 - ACUTE POSTHEMORRHAGIC ANEMIA SNOMED Code(s): 904517404 (3) COPD (chronic obstructive pulmonary disease) Current Visit: Yes Status: Chronic Code(s): J44.9 - CHRONIC OBSTRUCTIVE PULMONARY DISEASE, UNSPECIFIED SNOMED Code(s): 77145105 (4) Systolic heart failure Current Visit: Yes Status: Chronic Code(s): I50.20 - UNSPECIFIED SYSTOLIC ( CONGESTIVE) HEART FAILURE SNOMED Code(s): 912736334 (5) Aortic insufficiency Current Visit: Yes Status: Chronic Code(s): I35.1 - NONRHEUMATIC AORTIC ( VALVE) INSUFFICIENCY SNOMED Code(s): 23911824 (6) Hypothyroid Current Visit: Yes Status: Chronic Code(s): E03.9 - HYPOTHYROIDISM, UNSPECIFIED SNOMED Code(s): 73565536 (7) Mitral regurgitation Current Visit: Yes Status: Chronic Code(s): I34.0 - NONRHEUMATIC MITRAL ( VALVE) INSUFFICIENCY SNOMED Code(s): 74444507 (8) Rheumatoid arthritis Current Visit: Yes Status: Chronic Code(s): M06.9 - RHEUMATOID ARTHRITIS, UNSPECIFIED SNOMED Code(s): 89705626 Plan: 1. Continue low-dose aspirin, statin, heparin subcu, beta dion. Will increase beta dion therapy as tolerated. 2. Continue amiodarone for A. fib prophylaxis. 3. Transfuse one unit packed red blood cells. 4. Discontinue Primacor. Discontinue Windsor, place Cordis to continuous CVP monitoring. 5. Wean O2 as tolerated, encourage incentive spirometry 10 times every hour. 6. Increase activity, ambulate as able. PT/OT/cardiac rehab following. 7. Will keep chest tubes for 1 more day. 8. Insulin/diabetic management per primary care service. 9. Will monitor daily labs and x-rays. 10. GI/DVT prophylaxis. 11. More recommendations to follow. Time with Patient: Greater than 30
--- NOTE | 2017-10-15 09:26 | XR ---
EXAMINATION TYPE: XR chest 1V portable DATE OF EXAM: 10/15/2017 COMPARISON: Prior chest x-ray 10/14/2017 HISTORY: Post cardiac surgery, chest tube TECHNIQUE: Single frontal view of the chest is obtained. FINDINGS: Endotracheal and NG tube have been removed. Median sternal drains, left chest tube, right jugular central venous sheath with coaxial Austin-Elise catheter remain in place and are overlying appro priate positions. Patient is post median sternotomy and aortic valve placement. Pleural parenchymal c hanges show a similar appearance accounting for differences in rotation. Postop change in the right s houlder is stable. No sizable pneumothorax. Difficult to exclude small effusions. Heart is likely enl arged. Left atrial appendage clipping is noted. IMPRESSION: Interval extubation. Findings are otherwise similar in appearance. There may be basilar atelectasis, small effusion, edema versus pneumonia. Follow-up recommended.
--- NOTE | 2017-10-15 09:59 | P.PN ---
Subjective Progress Note Date: 10/15/17 This is 72-year-old female with history of aortic insufficiency and also mitral insufficiency. Patient had aortic valve replacement and mitral valve repair. Patient operatively patient developed anemia requiring blood transfusion. Her blood pressure has been also running low at times. She had a bout of atrial fibrillation but converted back to sinus rhythm. She is currently being maintained on IV amiodarone. She also received one unit of blood this morning. Chest x-ray showed mild atelectatic changes. Her rhythm has been sinus. Patient is getting somewhat volume through blood pressure support. Her PA pressures of the low side. Patient may need further blood transfusion Objective - Vital Signs Vital signs: Vital Signs Temp 99.9 F H 10/15/17 09:23 Pulse 80 10/15/17 09:23 Resp 20 10/15/17 09:23 BP 99/42 10/15/17 09:23 Pulse Ox 96 10/15/17 09:23 Intake & Output 10/14/17 10/15/17 10/15/17 18:59 06:59 18:59 Intake Total 1277.770 390.075 61.084 Output Total 1055 505 135 Balance 222.770 -114.925 -73.916 Weight 62.7 kg 62.7 kg Intake: IV 802 379 58 0.9 NaCl pressure bag 117 99 18 CO/CI injectate 210 60 Lactated Ringers 1,000 ml 410 220 40 @ 20 mls/hr IV .Q24H [facility] Rx#:[id number] Milrinone-D5w Pmx 20 mg 65 In Dextrose/Water 1 100ml .bag @ 0.1 MCG/KG/MIN 1. 76 mls/hr IV .Q24H [facility] Rx #:[id number] Intake, IV Titration 165.770 11.075 3.084 Amount Insulin Regular 100 unit 40.083 11.075 3.084 In Sodium Chloride 0.9% 100 ml @ Per Protocol IV .Q0M [facility] Rx#:[id number] Milrinone-D5w Pmx 20 mg 48.757 In Dextrose/Water 1 100ml .bag @ 0.1 MCG/KG/MIN 1. 76 mls/hr IV .Q24H [facility] Rx #:[id number] Propofol 1,000 mg In 76.93 Empty Bag 1 bag @ Titrate IV .Q0M [facility] Rx#: [id number] Blood Product 310 0 Rc As-1 Unit 310 [id number] Rc Pheresis As-3 Unit 0 [id number] Output: Chest Tube Drainage 330 220 50 Chest Tube Mediastinal 220 160 30 Left Pleural 110 60 20 Urine 725 285 85 Other: Voiding Method Indwelling Catheter Indwelling Catheter Indwelling Catheter # Bowel Movements 0 0 ABP, PAP, CO, CI - Last Documented Arterial Blood Pressure 98/36 Pulmonary Artery Pressure 31/12 Cardiac Output 4.8 Cardiac Index 3.1 - Exam GENERAL EXAM: Patient is alert and oriented and appears to be in mild to moderate distress and mildly tachypneic HEENT: Normocephalic. NECK: No masses, no nuchal rigidity. CHEST: No chest wall deformity. LUNGS: Diminished air exchange HEART: S1 and S2 normal with no audible mumurs o ABDOMEN: No hepatosplenomegaly, normal bowel sounds, no guarding or rigidity. SKIN: No rashes CENTRAL NERVOUS SYSTEM: No focal deficits. EXTREMITIES: No cyanosis, clubbing or edema. - Labs CBC & Chem 7: 10/15/17 06:50 10/15/17 06:50 Labs: Abnormal Lab Results - Last 24 Hours (Table) 10/09/17 10/14/17 10/14/17 Range/Units 17:05 10:58 12:28 RBC (3.80-5.40) m/uL Hgb (11.4-16.0) gm/dL Hct (34.0-46.0) % RDW (11.5-15.5) % Plt Count (150-450) k/uL Lymphocytes # (1.0-4.8) k/uL ABG pH (7.35-7.45) ABG pCO2 (35-45) mmHg ABG O2 Saturation (94-97) % BUN (7-17) mg/dL Glucose (74-99) mg/dL POC Glucose (mg/dL) 149 H 159 H (75-99) mg/dL Total Bilirubin (0.2-1.3) mg/dL AST (14-36) U/L Total Protein (6.3-8.2) g/dL Albumin (3.5-5.0) g/dL Crossmatch See Detail 10/14/17 10/14/17 10/14/17 Range/Units 13:47 14:54 17:16 RBC (3.80-5.40) m/uL Hgb (11.4-16.0) gm/dL Hct (34.0-46.0) % RDW (11.5-15.5) % Plt Count (150-450) k/uL Lymphocytes # (1.0-4.8) k/uL ABG pH 7.48 H (7.35-7.45) ABG pCO2 31 L (35-45) mmHg ABG O2 Saturation 97.9 H (94-97) % BUN (7-17) mg/dL Glucose (74-99) mg/dL POC Glucose (mg/dL) 115 H 113 H (75-99) mg/dL Total Bilirubin (0.2-1.3) mg/dL AST (14-36) U/L Total Protein (6.3-8.2) g/dL Albumin (3.5-5.0) g/dL Crossmatch 10/14/17 10/14/17 10/14/17 Range/Units 18:19 20:02 21:06 RBC (3.80-5.40) m/uL Hgb (11.4-16.0) gm/dL Hct (34.0-46.0) % RDW (11.5-15.5) % Plt Count (150-450) k/uL Lymphocytes # (1.0-4.8) k/uL ABG pH (7.35-7.45) ABG pCO2 (35-45) mmHg ABG O2 Saturation (94-97) % BUN (7-17) mg/dL Glucose (74-99) mg/dL POC Glucose (mg/dL) 120 H 122 H 121 H (75-99) mg/dL Total Bilirubin (0.2-1.3) mg/dL AST (14-36) U/L Total Protein (6.3-8.2) g/dL Albumin (3.5-5.0) g/dL Crossmatch 10/14/17 10/14/17 10/15/17 Range/Units 22:04 23:08 00:06 RBC (3.80-5.40) m/uL Hgb (11.4-16.0) gm/dL Hct (34.0-46.0) % RDW (11.5-15.5) % Plt Count (150-450) k/uL Lymphocytes # (1.0-4.8) k/uL ABG pH (7.35-7.45) ABG pCO2 (35-45) mmHg ABG O2 Saturation (94-97) % BUN (7-17) mg/dL Glucose (74-99) mg/dL POC Glucose (mg/dL) 112 H 141 H 127 H (75-99) mg/dL Total Bilirubin (0.2-1.3) mg/dL AST (14-36) U/L Total Protein (6.3-8.2) g/dL Albumin (3.5-5.0) g/dL Crossmatch 10/15/17 10/15/17 10/15/17 Range/Units 01:12 02:06 03:08 RBC (3.80-5.40) m/uL Hgb (11.4-16.0) gm/dL Hct (34.0-46.0) % RDW (11.5-15.5) % Plt Count (150-450) k/uL Lymphocytes # (1.0-4.8) k/uL ABG pH (7.35-7.45) ABG pCO2 (35-45) mmHg ABG O2 Saturation (94-97) % BUN (7-17) mg/dL Glucose (74-99) mg/dL POC Glucose (mg/dL) 132 H 119 H 111 H (75-99) mg/dL Total Bilirubin (0.2-1.3) mg/dL AST (14-36) U/L Total Protein (6.3-8.2) g/dL Albumin (3.5-5.0) g/dL Crossmatch 10/15/17 10/15/17 10/15/17 Range/Units 04:10 05:14 05:58 RBC (3.80-5.40) m/uL Hgb (11.4-16.0) gm/dL Hct (34.0-46.0) % RDW (11.5-15.5) % Plt Count (150-450) k/uL Lymphocytes # (1.0-4.8) k/uL ABG pH (7.35-7.45) ABG pCO2 (35-45) mmHg ABG O2 Saturation (94-97) % BUN (7-17) mg/dL Glucose (74-99) mg/dL POC Glucose (mg/dL) 118 H 132 H 120 H (75-99) mg/dL Total Bilirubin (0.2-1.3) mg/dL AST (14-36) U/L Total Protein (6.3-8.2) g/dL Albumin (3.5-5.0) g/dL Crossmatch 10/15/17 10/15/17 10/15/17 Range/Units 06:50 06:50 07:05 RBC 2.47 L (3.80-5.40) m/uL Hgb 6.8 L* (11.4-16.0) gm/dL Hct 21.6 L (34.0-46.0) % RDW 16.2 H (11.5-15.5) % Plt Count 69 L (150-450) k/uL Lymphocytes # 0.7 L (1.0-4.8) k/uL ABG pH (7.35-7.45) ABG pCO2 (35-45) mmHg ABG O2 Saturation (94-97) % BUN 28 H (7-17) mg/dL Glucose 119 H (74-99) mg/dL POC Glucose (mg/dL) 126 H (75-99) mg/dL Total Bilirubin 1.8 H (0.2-1.3) mg/dL AST 99 H (14-36) U/L Total Protein 4.8 L (6.3-8.2) g/dL Albumin 2.7 L (3.5-5.0) g/dL Crossmatch 10/15/17 Range/Units 08:20 RBC (3.80-5.40) m/uL Hgb (11.4-16.0) gm/dL Hct (34.0-46.0) % RDW (11.5-15.5) % Plt Count (150-450) k/uL Lymphocytes # (1.0-4.8) k/uL ABG pH (7.35-7.45) ABG pCO2 (35-45) mmHg ABG O2 Saturation (94-97) % BUN (7-17) mg/dL Glucose (74-99) mg/dL POC Glucose (mg/dL) 120 H (75-99) mg/dL Total Bilirubin (0.2-1.3) mg/dL AST (14-36) U/L Total Protein (6.3-8.2) g/dL Albumin (3.5-5.0) g/dL Crossmatch Assessment and Plan (1) Aortic insufficiency Current Visit: Yes Status: Chronic Code(s): I35.1 - NONRHEUMATIC AORTIC ( VALVE) INSUFFICIENCY SNOMED Code(s): 52295454 (2) COPD (chronic obstructive pulmonary disease) Current Visit: Yes Status: Chronic Code(s): J44.9 - CHRONIC OBSTRUCTIVE PULMONARY DISEASE, UNSPECIFIED SNOMED Code(s): 78539291 (3) Mitral regurgitation Current Visit: Yes Status: Chronic Code(s): I34.0 - NONRHEUMATIC MITRAL ( VALVE) INSUFFICIENCY SNOMED Code(s): 63895392 (4) Rheumatoid arthritis Current Visit: Yes Status: Chronic Code(s): M06.9 - RHEUMATOID ARTHRITIS, UNSPECIFIED SNOMED Code(s): 22256828 (5) Systolic heart failure Current Visit: Yes Status: Chronic Code(s): I50.20 - UNSPECIFIED SYSTOLIC ( CONGESTIVE) HEART FAILURE SNOMED Code(s): 848369671 Plan: Status post aortic valve replacement and mitral valve repair. Patient is anemic , requiring transfusion. Family status is relatively stable. Maintaining sinus rhythm. Her BUN has gone up. Further recommendations will depend upon clinical course
[2017-10-15] MEDS: IPRATROPIUM-ALBUTEROL 3 ML NEB INHALATION PRN (10:05)
[2017-10-15 10:07] LABS: Glucose,Whole Blood 136 mg/dL (75-99)
[2017-10-15 10:23] VITALS: BMI 26.9
[2017-10-15] MEDS: ALBUMIN HUMAN 5% 250 ML in EMPTY BAG 1 BAG IVPB PRN ×2 (10:24→10:26)
[2017-10-15] MEDS: LEVOTHYROXINE 100 MCG TAB PO SCH (10:27)
[2017-10-15] MEDS: ASCORBIC ACID 500 MG TAB PO SCH (10:27)
--- NOTE | 2017-10-15 10:28 | P.PN ---
Subjective Progress Note Date: 10/15/17 Principal diagnosis: Severe aortic insufficiency, severe mitral regurgitation. This is a 72-year-old female with a history of kidney stones rheumatoid arthritis COPD aortic stenosis UTI heart failure and hypothyroidism. She sees Dr. Rafael Vaughn at [place] [facility]. He is her business office technology instructor. The patient was recently evaluated by the surgeons here and she is postop day #1 status post aortic valve replacement and mitral valve repair. The surgery was done by one of the cardiothoracic surgeons here and I did a preop evaluation. Currently, the patient is getting lactated Ringer's at 50 mL now her Primacor, propofol at 45 mics per kilogram per minute and insulin infusion at 3 units an hour. Last night, and attempt to wean her, she developed atrial fibrillation with some mild heart failure and nephrology blood-tinged sputum. She did have weaning parameters. The NIF was -25 rapid shallow breathing index was 77 respiratory was 25 tidal volume 331 vital capacity was 500 and minute volume of 7.1 L/m. The patient's vent settings are the SIMV mode rate of 20 tidal volume 350 FiO2 50% and PEEP of 5. The patient is receiving 2 units of PRBCs. Hopefully, later today she can be weaned. The patient is seen again today in follow-up 10/15/2017 in the intensive care unit. She was successfully extubated. This is postoperative day #2 following aortic valve replacement and a mitral valve repair. She is currently sitting up in a chair at the bedside. She is maintaining O2 saturations in the 90s on 4 L/m per nasal cannula. She is working well with the incentive spirometer. Chest x-ray is revealing a sore atelectasis with small effusions. Stable in comparison. Chest tubes remain in place. She has an IV of lactated Ringer's at 20 miles per hour. She is on insulin drip at 0.5 units per hour. Her hemoglobin was 6.8. She is receiving a unit of packed red blood cells. Current temperature 99.8. No tachycardia, no tachypnea. Hemodynamically stable. White count 8.4. Hemoglobin 6.8. Platelet count 69,000. Creatinine 0.73. Objective - Vital Signs Vital signs: Vital Signs Temp 99.9 F H 10/15/17 09:23 Pulse 69 10/15/17 10:09 Resp 20 10/15/17 09:23 BP 99/42 10/15/17 09:23 Pulse Ox 96 10/15/17 09:23 Intake & Output 10/14/17 10/15/17 10/15/17 18:59 06:59 18:59 Intake Total 1277.770 390.075 61.084 Output Total 1055 505 135 Balance 222.770 -114.925 -73.916 Weight 62.7 kg 62.7 kg Intake: IV 802 379 58 0.9 NaCl pressure bag 117 99 18 CO/CI injectate 210 60 Lactated Ringers 1,000 ml 410 220 40 @ 20 mls/hr IV .Q24H [facility] Rx#:[id number] Milrinone-D5w Pmx 20 mg 65 In Dextrose/Water 1 100ml .bag @ 0.1 MCG/KG/MIN 1. 76 mls/hr IV .Q24H [facility] Rx #:[id number] Intake, IV Titration 165.770 11.075 3.084 Amount Insulin Regular 100 unit 40.083 11.075 3.084 In Sodium Chloride 0.9% 100 ml @ Per Protocol IV .Q0M [facility] Rx#:[id number] Milrinone-D5w Pmx 20 mg 48.757 In Dextrose/Water 1 100ml .bag @ 0.1 MCG/KG/MIN 1. 76 mls/hr IV .Q24H [facility] Rx #:[id number] Propofol 1,000 mg In 76.93 Empty Bag 1 bag @ Titrate IV .Q0M [facility] Rx#: [id number] Blood Product 310 0 Rc As-1 Unit 310 [id number] Rc Pheresis As-3 Unit 0 [id number] Output: Chest Tube Drainage 330 220 50 Chest Tube Mediastinal 220 160 30 Left Pleural 110 60 20 Urine 725 285 85 Other: Voiding Method Indwelling Catheter Indwelling Catheter Indwelling Catheter # Bowel Movements 0 0 ABP, PAP, CO, CI - Last Documented Arterial Blood Pressure 98/36 Pulmonary Artery Pressure 31/12 Cardiac Output 4.8 Cardiac Index 3.1 - Exam GENERAL EXAM: Alert, fairly comfortable in no apparent distress. HEAD: Normocephalic. EYES: Normal reaction of pupils, equal size. NOSE: Clear with pink turbinates. THROAT: No erythema or exudates. NECK: No masses, no JVD. Winthrop-Elise catheter in place. CHEST: Surgical dressing dry and intact. Heart Hugger in place.. LUNGS: Equal air entry with crackles in the posterior bases.. CVS: S1 and S2 normal with no audible murmur, regular rhythm. ABDOMEN: No hepatosplenomegaly, normal bowel sounds, no guarding or rigidity. SPINE: No scoliosis or deformity SKIN: No rashes CENTRAL NERVOUS SYSTEM: No focal deficits, tone is normal in all 4 extremities. EXTREMITIES: Sequential compression devices in place. There is trace peripheral edema. No clubbing, no cyanosis. Peripheral pulses are intact. - Labs CBC & Chem 7: 10/15/17 06:50 10/15/17 06:50 Labs: Abnormal Lab Results - Last 24 Hours (Table) 10/09/17 10/14/17 10/14/17 Range/Units 17:05 10:58 12:28 RBC (3.80-5.40) m/uL Hgb (11.4-16.0) gm/dL Hct (34.0-46.0) % RDW (11.5-15.5) % Plt Count (150-450) k/uL Lymphocytes # (1.0-4.8) k/uL ABG pH (7.35-7.45) ABG pCO2 (35-45) mmHg ABG O2 Saturation (94-97) % BUN (7-17) mg/dL Glucose (74-99) mg/dL POC Glucose (mg/dL) 149 H 159 H (75-99) mg/dL Total Bilirubin (0.2-1.3) mg/dL AST (14-36) U/L Total Protein (6.3-8.2) g/dL Albumin (3.5-5.0) g/dL Crossmatch See Detail 10/14/17 10/14/17 10/14/17 Range/Units 13:47 14:54 17:16 RBC (3.80-5.40) m/uL Hgb (11.4-16.0) gm/dL Hct (34.0-46.0) % RDW (11.5-15.5) % Plt Count (150-450) k/uL Lymphocytes # (1.0-4.8) k/uL ABG pH 7.48 H (7.35-7.45) ABG pCO2 31 L (35-45) mmHg ABG O2 Saturation 97.9 H (94-97) % BUN (7-17) mg/dL Glucose (74-99) mg/dL POC Glucose (mg/dL) 115 H 113 H (75-99) mg/dL Total Bilirubin (0.2-1.3) mg/dL AST (14-36) U/L Total Protein (6.3-8.2) g/dL Albumin (3.5-5.0) g/dL Crossmatch 10/14/17 10/14/17 10/14/17 Range/Units 18:19 20:02 21:06 RBC (3.80-5.40) m/uL Hgb (11.4-16.0) gm/dL Hct (34.0-46.0) % RDW (11.5-15.5) % Plt Count (150-450) k/uL Lymphocytes # (1.0-4.8) k/uL ABG pH (7.35-7.45) ABG pCO2 (35-45) mmHg ABG O2 Saturation (94-97) % BUN (7-17) mg/dL Glucose (74-99) mg/dL POC Glucose (mg/dL) 120 H 122 H 121 H (75-99) mg/dL Total Bilirubin (0.2-1.3) mg/dL AST (14-36) U/L Total Protein (6.3-8.2) g/dL Albumin (3.5-5.0) g/dL Crossmatch 10/14/17 10/14/17 10/15/17 Range/Units 22:04 23:08 00:06 RBC (3.80-5.40) m/uL Hgb (11.4-16.0) gm/dL Hct (34.0-46.0) % RDW (11.5-15.5) % Plt Count (150-450) k/uL Lymphocytes # (1.0-4.8) k/uL ABG pH (7.35-7.45) ABG pCO2 (35-45) mmHg ABG O2 Saturation (94-97) % BUN (7-17) mg/dL Glucose (74-99) mg/dL POC Glucose (mg/dL) 112 H 141 H 127 H (75-99) mg/dL Total Bilirubin (0.2-1.3) mg/dL AST (14-36) U/L Total Protein (6.3-8.2) g/dL Albumin (3.5-5.0) g/dL Crossmatch 10/15/17 10/15/17 10/15/17 Range/Units 01:12 02:06 03:08 RBC (3.80-5.40) m/uL Hgb (11.4-16.0) gm/dL Hct (34.0-46.0) % RDW (11.5-15.5) % Plt Count (150-450) k/uL Lymphocytes # (1.0-4.8) k/uL ABG pH (7.35-7.45) ABG pCO2 (35-45) mmHg ABG O2 Saturation (94-97) % BUN (7-17) mg/dL Glucose (74-99) mg/dL POC Glucose (mg/dL) 132 H 119 H 111 H (75-99) mg/dL Total Bilirubin (0.2-1.3) mg/dL AST (14-36) U/L Total Protein (6.3-8.2) g/dL Albumin (3.5-5.0) g/dL Crossmatch 10/15/17 10/15/17 10/15/17 Range/Units 04:10 05:14 05:58 RBC (3.80-5.40) m/uL Hgb (11.4-16.0) gm/dL Hct (34.0-46.0) % RDW (11.5-15.5) % Plt Count (150-450) k/uL Lymphocytes # (1.0-4.8) k/uL ABG pH (7.35-7.45) ABG pCO2 (35-45) mmHg ABG O2 Saturation (94-97) % BUN (7-17) mg/dL Glucose (74-99) mg/dL POC Glucose (mg/dL) 118 H 132 H 120 H (75-99) mg/dL Total Bilirubin (0.2-1.3) mg/dL AST (14-36) U/L Total Protein (6.3-8.2) g/dL Albumin (3.5-5.0) g/dL Crossmatch 10/15/17 10/15/17 10/15/17 Range/Units 06:50 06:50 07:05 RBC 2.47 L (3.80-5.40) m/uL Hgb 6.8 L* (11.4-16.0) gm/dL Hct 21.6 L (34.0-46.0) % RDW 16.2 H (11.5-15.5) % Plt Count 69 L (150-450) k/uL Lymphocytes # 0.7 L (1.0-4.8) k/uL ABG pH (7.35-7.45) ABG pCO2 (35-45) mmHg ABG O2 Saturation (94-97) % BUN 28 H (7-17) mg/dL Glucose 119 H (74-99) mg/dL POC Glucose (mg/dL) 126 H (75-99) mg/dL Total Bilirubin 1.8 H (0.2-1.3) mg/dL AST 99 H (14-36) U/L Total Protein 4.8 L (6.3-8.2) g/dL Albumin 2.7 L (3.5-5.0) g/dL Crossmatch 10/15/17 10/15/17 Range/Units 08:20 10:04 RBC (3.80-5.40) m/uL Hgb (11.4-16.0) gm/dL Hct (34.0-46.0) % RDW (11.5-15.5) % Plt Count (150-450) k/uL Lymphocytes # (1.0-4.8) k/uL ABG pH (7.35-7.45) ABG pCO2 (35-45) mmHg ABG O2 Saturation (94-97) % BUN (7-17) mg/dL Glucose (74-99) mg/dL POC Glucose (mg/dL) 120 H 136 H (75-99) mg/dL Total Bilirubin (0.2-1.3) mg/dL AST (14-36) U/L Total Protein (6.3-8.2) g/dL Albumin (3.5-5.0) g/dL Crossmatch Assessment and Plan Assessment: Assessment Postop day #2 status post aortic valve replacement for aortic insufficiency and mitral valve repair Postoperative respiratory failure as an expected outcome of postsurgical condition, recovered. History of rheumatoid arthritis History of CHF History of COPD Hypothyroidism History of diverticular disease History of urinary tract infection Anemia requiring a second unit of packed red blood cells. Plan: The patient was seen and evaluated by Dr. Doyle. Her chest x-ray and labs were reviewed. She is again encouraged regarding the increased use of the incentive spirometer. Continue bronchodilators 4 times a day and when necessary. She is receiving another unit of packed red blood cells. Continue to monitor hemoglobin. She is on heparin for DVT prophylaxis. Protonix for GI prophylaxis. We will repeat her chest x-ray and labs in the a.m. Will increase her activity as tolerated. We'll continue to follow. Critical care time 36 minutes. I, the cosigning physician, performed a history & physical examination of the patient. Lungs sounds crackles in the bilateral posterior bases. Maintaining good O2 saturations in the 90s on 4 L/m per nasal cannula. I discussed the assessment and plan of care with my nurse practitioner, Laverne Caal. I attest to the above note as dictated by her.
[2017-10-15] MEDS: MAGNESIUM SULFATE-D5W PMX 1 GM in DEXTROSE/WATER 1 100ML.BAG IVPB SCH ×2 (10:47→12:19)
[2017-10-15] MEDS: PANTOPRAZOLE 40 MG TABLET PO SCH (10:47)
[2017-10-15 11:20] LABS: Hypochromasia Moderate; Lymphocytes % (A) 9 %; MCV 87.4 fL (80.0-100.0); Monocytes # (A) 0.3 k/uL (0-1.0); Monocytes % (A) 3 %; Poikilocytosis Moderate; RBC 2.83 m/uL (3.80-5.40)
[2017-10-15 11:28] LABS: Basophils % (A) 0 %; Eosinophils % (A) 0 %; HCT 24.7 % (34.0-46.0); Lymphocytes # (A) 0.9 k/uL (1.0-4.8); Mean Platelet Volume 9.9; Neutrophils # (A) 8.4 k/uL (1.3-7.7); Neutrophils % (A) 86 %; RDW 15.8 % (11.5-15.5); WBC 9.7 k/uL (3.8-10.6)
[2017-10-15 11:30] LABS: HGB 7.9 gm/dL (11.4-16.0)
[2017-10-15 11:55] LABS: Platelet Count 52 k/uL (150-450)
[2017-10-15 12:27] LABS: Glucose,Whole Blood 229 mg/dL (75-99)
[2017-10-15 13:58] LABS: Glucose,Whole Blood 191 mg/dL (75-99)
[2017-10-15] MEDS: LACTATED RINGERS 1,000 ML IV SCH (16:19)
[2017-10-15] MEDS: CLEVIDIPINE BUTYRATE 25 MG in EMPTY BAG 1 BAG IV SCH (16:19)
[2017-10-15 16:21] LABS: Glucose,Whole Blood 123 mg/dL (75-99)
[2017-10-15] MEDS: ONDANSETRON 4 MG/2 ML VIAL IVP PRN (17:17)
--- NOTE | 2017-10-15 17:45 | P.PN ---
Subjective Progress Note Date: 10/15/17 This is a 72-year-old female with a known history aortic of severe aortic valve insufficiency and severe mitral regurgitation, congestive heart failure, rheumatoid arthritis, hypothyroidism, diverticulosis, and COPD. Initially patient underwent aortic valve replacement and mitral valve repair. She is currently intubated. Yesterday during a weaning trial she went into atrial fibrillation with rapid ventricular response. She also had an episode post operatively of A. fib and required cardioversion. Cardiothoracic surgeon has added amiodarone. Cardiology has been consulted. Patient's hemoglobin is 6.0 and platelets are 79. She did receive 1 unit of blood and is scheduled for a second unit today. She is also receiving fresh frozen plasma. Patient remains intubated and sedated. The planning to try another weaning trial today. We've been consulted for medical management. Currently on insulin drip for tight control of blood sugars postoperatively. Patient has no history of diabetes. On 10/15/2017 patient was seen and examined in the intensive care unit. She was extubated. This is postoperative day #2 following aortic valve replacement and a mitral valve repair. Patient is maintained on O2 4 L nasal cannula, Chest x-ray reveals evidence of atelectasis with small effusions. Chest tubes in place. She is on insulin drip at 0.5 units per hour. She received a unit of packed red blood cells. She denies any chest pain or shortness of breath no fever or chills no cough she had 1 episode of vomiting no abdominal pain and no urinary symptoms Objective - Vital Signs Vital signs: Vital Signs Temp 98.9 F 10/15/17 16:00 Pulse 81 10/15/17 17:00 Resp 26 H 10/15/17 17:00 BP 114/42 10/15/17 10:36 Pulse Ox 97 10/15/17 17:27 Intake & Output 10/14/17 10/15/17 10/15/17 18:59 06:59 18:59 Intake Total 1277.770 390.075 960.284 Output Total 1055 505 425 Balance 222.770 -114.925 535.284 Weight 62.7 kg 62.7 kg Intake: IV 802 379 311 0.9 NaCl pressure bag 117 99 81 CO/CI injectate 210 60 30 Lactated Ringers 1,000 ml 410 220 200 @ 20 mls/hr IV .Q24H [facility] Rx#:[id number] Milrinone-D5w Pmx 20 mg 65 In Dextrose/Water 1 100ml .bag @ 0.1 MCG/KG/MIN 1. 76 mls/hr IV .Q24H [facility] Rx #:[id number] Intake, IV Titration 165.770 11.075 219.284 Amount Insulin Regular 100 unit 40.083 11.075 19.284 In Sodium Chloride 0.9% 100 ml @ Per Protocol IV .Q0M [facility] Rx#:[id number] Magnesium Sulfate-D5w Pmx 200 1 gm In Dextrose/Water 1 100ml.bag @ 100 mls/hr IVPB Q1H [facility] Rx#: [id number] Milrinone-D5w Pmx 20 mg 48.757 In Dextrose/Water 1 100ml .bag @ 0.1 MCG/KG/MIN 1. 76 mls/hr IV .Q24H [facility] Rx #:[id number] Propofol 1,000 mg In 76.93 Empty Bag 1 bag @ Titrate IV .Q0M [facility] Rx#: [id number] Oral 120 Blood Product 310 310 Rc As-1 Unit 310 [id number] Rc Pheresis As-3 Unit 310 [id number] Output: Chest Tube Drainage 330 220 160 Chest Tube Mediastinal 220 160 130 Left Pleural 110 60 30 Urine 725 285 265 Other: Voiding Method Indwelling Catheter Indwelling Catheter Indwelling Catheter # Bowel Movements 0 0 ABP, PAP, CO, CI - Last Documented Arterial Blood Pressure 150/55 Pulmonary Artery Pressure 29/9 Cardiac Output 4.5 Cardiac Index 3.1 - Exam Head normocephalic and atraumatic Neck supple no JVD no goiter no lymphadenopathy Lungs wheezing noted bilaterally. [address] Heart regular rate and rhythm S1-S2, no rub or gallop Abdomen is soft nontender nondistended positive bowel sounds no hepatosplenomegaly Extremities no edema no cyanosis or clubbing Neuro intubated and sedated - Labs CBC & Chem 7: 10/15/17 11:11 10/15/17 06:50 Labs: Abnormal Lab Results - Last 24 Hours (Table) 10/09/17 10/14/17 10/14/17 Range/Units 17:05 18:19 20:02 RBC (3.80-5.40) m/uL Hgb (11.4-16.0) gm/dL Hct (34.0-46.0) % RDW (11.5-15.5) % Plt Count (150-450) k/uL Neutrophils # (1.3-7.7) k/uL Lymphocytes # (1.0-4.8) k/uL BUN (7-17) mg/dL Glucose (74-99) mg/dL POC Glucose (mg/dL) 120 H 122 H (75-99) mg/dL Total Bilirubin (0.2-1.3) mg/dL AST (14-36) U/L Total Protein (6.3-8.2) g/dL Albumin (3.5-5.0) g/dL Crossmatch See Detail 10/14/17 10/14/17 10/14/17 Range/Units 21:06 22:04 23:08 RBC (3.80-5.40) m/uL Hgb (11.4-16.0) gm/dL Hct (34.0-46.0) % RDW (11.5-15.5) % Plt Count (150-450) k/uL Neutrophils # (1.3-7.7) k/uL Lymphocytes # (1.0-4.8) k/uL BUN (7-17) mg/dL Glucose (74-99) mg/dL POC Glucose (mg/dL) 121 H 112 H 141 H (75-99) mg/dL Total Bilirubin (0.2-1.3) mg/dL AST (14-36) U/L Total Protein (6.3-8.2) g/dL Albumin (3.5-5.0) g/dL Crossmatch 10/15/17 10/15/17 10/15/17 Range/Units 00:06 01:12 02:06 RBC (3.80-5.40) m/uL Hgb (11.4-16.0) gm/dL Hct (34.0-46.0) % RDW (11.5-15.5) % Plt Count (150-450) k/uL Neutrophils # (1.3-7.7) k/uL Lymphocytes # (1.0-4.8) k/uL BUN (7-17) mg/dL Glucose (74-99) mg/dL POC Glucose (mg/dL) 127 H 132 H 119 H (75-99) mg/dL Total Bilirubin (0.2-1.3) mg/dL AST (14-36) U/L Total Protein (6.3-8.2) g/dL Albumin (3.5-5.0) g/dL Crossmatch 10/15/17 10/15/17 10/15/17 Range/Units 03:08 04:10 05:14 RBC (3.80-5.40) m/uL Hgb (11.4-16.0) gm/dL Hct (34.0-46.0) % RDW (11.5-15.5) % Plt Count (150-450) k/uL Neutrophils # (1.3-7.7) k/uL Lymphocytes # (1.0-4.8) k/uL BUN (7-17) mg/dL Glucose (74-99) mg/dL POC Glucose (mg/dL) 111 H 118 H 132 H (75-99) mg/dL Total Bilirubin (0.2-1.3) mg/dL AST (14-36) U/L Total Protein (6.3-8.2) g/dL Albumin (3.5-5.0) g/dL Crossmatch 10/15/17 10/15/17 10/15/17 Range/Units 05:58 06:50 06:50 RBC 2.47 L (3.80-5.40) m/uL Hgb 6.8 L* (11.4-16.0) gm/dL Hct 21.6 L (34.0-46.0) % RDW 16.2 H (11.5-15.5) % Plt Count 69 L (150-450) k/uL Neutrophils # (1.3-7.7) k/uL Lymphocytes # 0.7 L (1.0-4.8) k/uL BUN 28 H (7-17) mg/dL Glucose 119 H (74-99) mg/dL POC Glucose (mg/dL) 120 H (75-99) mg/dL Total Bilirubin 1.8 H (0.2-1.3) mg/dL AST 99 H (14-36) U/L Total Protein 4.8 L (6.3-8.2) g/dL Albumin 2.7 L (3.5-5.0) g/dL Crossmatch 10/15/17 10/15/17 10/15/17 Range/Units 07:05 08:20 10:04 RBC (3.80-5.40) m/uL Hgb (11.4-16.0) gm/dL Hct (34.0-46.0) % RDW (11.5-15.5) % Plt Count (150-450) k/uL Neutrophils # (1.3-7.7) k/uL Lymphocytes # (1.0-4.8) k/uL BUN (7-17) mg/dL Glucose (74-99) mg/dL POC Glucose (mg/dL) 126 H 120 H 136 H (75-99) mg/dL Total Bilirubin (0.2-1.3) mg/dL AST (14-36) U/L Total Protein (6.3-8.2) g/dL Albumin (3.5-5.0) g/dL Crossmatch 10/15/17 10/15/17 10/15/17 Range/Units 11:11 12:25 13:56 RBC 2.83 L (3.80-5.40) m/uL Hgb 7.9 L (11.4-16.0) gm/dL Hct 24.7 L (34.0-46.0) % RDW 15.8 H (11.5-15.5) % Plt Count 52 L (150-450) k/uL Neutrophils # 8.4 H (1.3-7.7) k/uL Lymphocytes # 0.9 L (1.0-4.8) k/uL BUN (7-17) mg/dL Glucose (74-99) mg/dL POC Glucose (mg/dL) 229 H 191 H (75-99) mg/dL Total Bilirubin (0.2-1.3) mg/dL AST (14-36) U/L Total Protein (6.3-8.2) g/dL Albumin (3.5-5.0) g/dL Crossmatch 10/15/17 Range/Units 16:18 RBC (3.80-5.40) m/uL Hgb (11.4-16.0) gm/dL Hct (34.0-46.0) % RDW (11.5-15.5) % Plt Count (150-450) k/uL Neutrophils # (1.3-7.7) k/uL Lymphocytes # (1.0-4.8) k/uL BUN (7-17) mg/dL Glucose (74-99) mg/dL POC Glucose (mg/dL) 123 H (75-99) mg/dL Total Bilirubin (0.2-1.3) mg/dL AST (14-36) U/L Total Protein (6.3-8.2) g/dL Albumin (3.5-5.0) g/dL Crossmatch Assessment and Plan Plan: 1. Postop day #2 status post aortic valve replacement and mitral valve repair for severe aortic valve insufficiency and severe mitral valve stenosis 2. Episodes of paroxysmal atrial fibrillation: Currently in sinus rhythm. Amiodarone started by cardiothoracic surgeon 3. Expected acute blood loss anemia secondary to surgery. Patient receiving 2 units of blood. Hemoglobin is 6.0 4. Thrombocytopenia: Monitor closely while on heparin. Patient receiving fresh frozen plasma 5. Postop respiratory failure requiring mechanical ventilation 6. History of COPD 7. Hypothyroidism 8. Chronic systolic congestive heart failure with an EF of 40-45% 9. Underlying history of Rheumatoid arthritis 10. Prediabetes, at this time patient is maintained on insulin drip, we can discontinue and switch to NovoLog sliding scale Otherwise patient is stable will continue was current management she is progressing well post surgery
[2017-10-15] MEDS: FERROUS SULFATE 325 MG TAB PO SCH (19:00)
[2017-10-15 21:00] LABS: Glucose,Whole Blood 145 mg/dL (75-99)
[2017-10-15] MEDS: INSULIN ASPART 100 UNIT/ML 1 ML 10 ML VIAL SQ SCH (21:30)
[2017-10-15] MEDS: SENNOSIDES-DOCUSATE SODIUM 1 EACH TAB PO SCH (21:31)
[2017-10-15] MEDS ORDERED: ALBUMIN HUMAN 5% 500 ML in EMPTY BAG 1 BAG IVPB ONE (22:28)
[2017-10-15] MEDS ORDERED: DEXTROSE 5% IN WATER 100 ML with AMIODARONE 150 MG IV ONE (22:29)
[2017-10-16] MEDS: AMIODARONE 450 MG in DEXTROSE 5% IN WATER 250 ML IV SCH ×6 (00:02→16:07)
[2017-10-16] MEDS: HYDROcodone/APAP 5-325MG 1 EACH TAB PO PRN ×3 (03:13→20:50)
[2017-10-16 04:53] LABS: Anisocytosis Slight; HCT 28.6 % (34.0-46.0); HGB 8.8 gm/dL (11.4-16.0); Hypochromasia Marked; MCH 27.8 pg (25.0-35.0); MCHC 30.8 g/dL (31.0-37.0); MCV 90.2 fL (80.0-100.0); Mean Platelet Volume 10.1; Poikilocytosis Moderate; RBC 3.17 m/uL (3.80-5.40); RDW 16.4 % (11.5-15.5); WBC 11.6 k/uL (3.8-10.6)
[2017-10-16 04:56] LABS: Platelet Count 77 k/uL (150-450)
[2017-10-16 05:02] LABS: Ionized Calcium 4.7 mg/dL (4.5-5.3)
[2017-10-16 05:07] LABS: ALT 359 U/L (9-52); AST 547 U/L (14-36); Albumin 3.2 g/dL (3.5-5.0); Alkaline Phosphatase 78 U/L (38-126); Anion Gap 12 mmol/L; Blood Urea Nitrogen 42 mg/dL (7-17); Calcium 8.4 mg/dL (8.4-10.2); Carbon Dioxide 21 mmol/L (22-30); Chloride 105 mmol/L (98-107); Glucose 152 mg/dL (74-99); Magnesium 2.8 mg/dL (1.6-2.3); Phosphorus 4.1 mg/dL (2.5-4.5); Potassium 5.1 mmol/L (3.5-5.1); Sodium 138 mmol/L (137-145); Total Bilirubin 3.5 mg/dL (0.2-1.3); Total Protein 5.1 g/dL (6.3-8.2)
[2017-10-16] MEDS: LEVOTHYROXINE 100 MCG TAB PO SCH (05:45)
[2017-10-16] MEDS ORDERED: ALBUMIN HUMAN 5% 500 ML in EMPTY BAG 1 BAG IVPB ONE (06:51)
[2017-10-16] MEDS ORDERED: FUROSEMIDE 10 MG/ML 4 ML VIAL IV STA (06:52)
[2017-10-16 07:07] LABS: Glucose,Whole Blood 148 mg/dL (75-99)
[2017-10-16] MEDS: INSULIN ASPART 100 UNIT/ML 1 ML 10 ML VIAL SQ SCH ×4 (07:09→20:41)
[2017-10-16] MEDS: IPRATROPIUM-ALBUTEROL 3 ML NEB INHALATION SCH ×4 (07:24→21:32)
[2017-10-16] MEDS: DEXTROSE/WATER 1 500ML.BAG with DOPamine DRIP 800 MG IV SCH (07:40)
[2017-10-16] MEDS: PANTOPRAZOLE 40 MG TABLET PO SCH (07:42)
[2017-10-16] MEDS: FERROUS SULFATE 325 MG TAB PO SCH ×2 (07:42→16:09)
[2017-10-16] MEDS: ONDANSETRON 4 MG/2 ML VIAL IVP PRN ×2 (07:56→16:11)
[2017-10-16] MEDS: METOPROLOL TARTRATE 12.5 MG TAB PO SCH (08:27)
[2017-10-16] MEDS: FONDAPARINUX 2.5 MG/0.5 ML SYRINGE SQ SCH (08:28)
[2017-10-16] MEDS: MUPIROCIN 2% OINT 22 GM TUBE NASAL SCH ×2 (08:35→20:49)
[2017-10-16] MEDS: ASPIRIN 81 MG PO SCH (08:35)
--- NOTE | 2017-10-16 09:07 | P.PN ---
Subjective Progress Note Date: 10/16/17 Principal diagnosis: Severe aortic insufficiency. Severe mitral regurgitation. History of systolic heart failure, COPD, rheumatoid arthritis, hypothyroidism, diverticulitis, recent urinary tract infection, and previous tobacco dependence. POD #3 aortic valve replacement with a #21 mm Magna Ease bioprosthetic aortic valve, mitral valve repair with a #28 mm CarboMedics annular flex band, clip ligation of left atrial appendage with a #35 mm AtriClip and intraoperative transesophageal echocardiogram Postoperative acute blood loss anemia, expected outcome of surgery. Postoperative paroxysmal atrial fibrillation, an expected outcome of surgery. Patient is currently sitting up in a recliner in no acute distress. Does state that it is painful to cough. She did receive 1 unit PRBCs yesterday with increase in hemoglobin from 6.8 to 8.8. Experienced hypotension and low urine output overnight, was given albumin and Lasix, started on dopamine. Objective - Vital Signs Vital signs: Vital Signs Temp 98.3 F 10/16/17 00:00 Pulse 63 10/16/17 07:34 Resp 18 10/16/17 07:00 BP 94/53 10/16/17 07:00 Pulse Ox 96 10/16/17 07:00 Intake & Output 10/15/17 10/16/17 10/16/17 18:59 06:59 18:59 Intake Total 1038.284 904 278.331 Output Total 530 420 Balance 508.284 484 278.331 Weight 62.7 kg 65.1 kg Intake: IV 389 904 0.9 NaCl pressure bag 99 54 Albumin Human 5% 500 ml 500 In Empty Bag 1 bag @ 250 mls/hr IVPB ONCE ONE Rx#: [id number] CO/CI injectate 30 Dextrose 5% in Water 100 100 ml @ 618 mls/hr IV .Q10M ONE with Amiodarone 150 mg Rx#:[id number] Lactated Ringers 1,000 ml 260 250 @ 20 mls/hr IV .Q24H [facility] Rx#:[id number] Intake, IV Titration 219.284 278.331 Amount Amiodarone 450 mg In 278.331 Dextrose 5% in Water 250 ml @ 1 MG/MIN 33.33 mls/ hr IV .Q7H31M [facility] Rx#: [id number] Insulin Regular 100 unit 19.284 In Sodium Chloride 0.9% 100 ml @ Per Protocol IV .Q0M [facility] Rx#:[id number] Magnesium Sulfate-D5w Pmx 200 1 gm In Dextrose/Water 1 100ml.bag @ 100 mls/hr IVPB Q1H [facility] Rx#: [id number] Oral 120 Blood Product 310 Rc Pheresis As-3 Unit 310 [id number] Output: Chest Tube Drainage 160 80 Chest Tube Mediastinal 130 70 Left Pleural 30 10 Urine 370 340 Other: Voiding Method Indwelling Catheter Indwelling Catheter # Bowel Movements 0 ABP, PAP, CO, CI - Last Documented Arterial Blood Pressure 102/53 Pulmonary Artery Pressure 29/9 Cardiac Output 4.5 Cardiac Index 3.1 - Constitutional General appearance: Present: cooperative, no acute distress - Respiratory Details: Lungs sounds diminished bilaterally with coarse breath sounds in the bases. Respirations even, nonlabored. Currently on 8 L high flow nasal cannula with oxygen saturation 94%. Only able to achieve 250-500 mL on her incentive spirometry. Effective cough. Mediastinal chest tube to -20 cm wall suction, 70 mL thin serosanguineous drainage overnight, 250 mL in the last 24 hours. Left pleural chest tube to -20 cm wall suction, 10 mL thin serosanguineous drainage overnight, 50 mL in the last 24 hours. No air leaks present. - Cardiovascular Details: S1, S2 present. Regular rate and rhythm, sinus rhythm on telemetry. Sternum stable. A/P epicardial pacemaker wires present, grounded. Palpable peripheral pulses bilaterally. No edema present. No calf pain or tenderness noted. Right internal jugular Cordis present. Currently on IV dopamine. Heart hugger , antiembolism stockings, SCDs present. - Gastrointestinal Gastrointestinal Comment(s): Abdomen soft, nontender, nondistended. Active bowel sounds 4 quadrants. Tolerating clear liquids. Positive flatus. - Genitourinary Genitourinary Comment(s): Villegas present draining clear, yellow urine. Output 15-40 mL/h overnight. - Integumentary Integumentary Comment(s): Skin is warm and dry with evidence of good perfusion. Anterior chest incision well approximated and covered with dry intact dressing. - Neurologic Neurologic: Present: CNII-XII intact - Musculoskeletal Musculoskeletal: Present: strength equal bilaterally - Psychiatric Psychiatric: Present: A&O x's 3, appropriate affect, intact judgment & insight - Allied health notes Allied health notes reviewed: nursing - Labs CBC & Chem 7: 10/16/17 04:36 10/16/17 04:36 Labs: Abnormal Lab Results - Last 24 Hours (Table) 10/09/17 10/15/17 10/15/17 Range/Units 17:05 10:04 11:11 WBC (3.8-10.6) k/uL RBC 2.83 L (3.80-5.40) m/uL Hgb 7.9 L (11.4-16.0) gm/dL Hct 24.7 L (34.0-46.0) % MCHC (31.0-37.0) g/dL RDW 15.8 H (11.5-15.5) % Plt Count 52 L (150-450) k/uL Neutrophils # 8.4 H (1.3-7.7) k/uL Lymphocytes # 0.9 L (1.0-4.8) k/uL Carbon Dioxide (22-30) mmol/L BUN (7-17) mg/dL Glucose (74-99) mg/dL POC Glucose (mg/dL) 136 H (75-99) mg/dL Magnesium (1.6-2.3) mg/dL Total Bilirubin (0.2-1.3) mg/dL AST (14-36) U/L ALT (9-52) U/L Total Protein (6.3-8.2) g/dL Albumin (3.5-5.0) g/dL Crossmatch See Detail 10/15/17 10/15/17 10/15/17 Range/Units 12:25 13:56 16:18 WBC (3.8-10.6) k/uL RBC (3.80-5.40) m/uL Hgb (11.4-16.0) gm/dL Hct (34.0-46.0) % MCHC (31.0-37.0) g/dL RDW (11.5-15.5) % Plt Count (150-450) k/uL Neutrophils # (1.3-7.7) k/uL Lymphocytes # (1.0-4.8) k/uL Carbon Dioxide (22-30) mmol/L BUN (7-17) mg/dL Glucose (74-99) mg/dL POC Glucose (mg/dL) 229 H 191 H 123 H (75-99) mg/dL Magnesium (1.6-2.3) mg/dL Total Bilirubin (0.2-1.3) mg/dL AST (14-36) U/L ALT (9-52) U/L Total Protein (6.3-8.2) g/dL Albumin (3.5-5.0) g/dL Crossmatch 10/15/17 10/16/17 10/16/17 Range/Units 20:58 04:36 04:36 WBC 11.6 H (3.8-10.6) k/uL RBC 3.17 L (3.80-5.40) m/uL Hgb 8.8 L (11.4-16.0) gm/dL Hct 28.6 L (34.0-46.0) % MCHC 30.8 L (31.0-37.0) g/dL RDW 16.4 H (11.5-15.5) % Plt Count 77 L (150-450) k/uL Neutrophils # (1.3-7.7) k/uL Lymphocytes # (1.0-4.8) k/uL Carbon Dioxide 21 L (22-30) mmol/L BUN 42 H (7-17) mg/dL Glucose 152 H (74-99) mg/dL POC Glucose (mg/dL) 145 H (75-99) mg/dL Magnesium 2.8 H (1.6-2.3) mg/dL Total Bilirubin 3.5 H (0.2-1.3) mg/dL AST 547 H (14-36) U/L ALT 359 H (9-52) U/L Total Protein 5.1 L (6.3-8.2) g/dL Albumin 3.2 L (3.5-5.0) g/dL Crossmatch 10/16/17 Range/Units 07:05 WBC (3.8-10.6) k/uL RBC (3.80-5.40) m/uL Hgb (11.4-16.0) gm/dL Hct (34.0-46.0) % MCHC (31.0-37.0) g/dL RDW (11.5-15.5) % Plt Count (150-450) k/uL Neutrophils # (1.3-7.7) k/uL Lymphocytes # (1.0-4.8) k/uL Carbon Dioxide (22-30) mmol/L BUN (7-17) mg/dL Glucose (74-99) mg/dL POC Glucose (mg/dL) 148 H (75-99) mg/dL Magnesium (1.6-2.3) mg/dL Total Bilirubin (0.2-1.3) mg/dL AST (14-36) U/L ALT (9-52) U/L Total Protein (6.3-8.2) g/dL Albumin (3.5-5.0) g/dL Crossmatch - Imaging and Cardiology Chest x-ray: image reviewed Assessment and Plan (1) Tobacco dependence in remission Current Visit: No Status: Resolved Code(s): F17.201 - NICOTINE DEPENDENCE, UNSPECIFIED, IN REMISSION SNOMED Code(s): 211586180 (2) Acute blood loss anemia Current Visit: Yes Status: Acute Code(s): D62 - ACUTE POSTHEMORRHAGIC ANEMIA SNOMED Code(s): 596861250 (3) COPD (chronic obstructive pulmonary disease) Current Visit: Yes Status: Chronic Code(s): J44.9 - CHRONIC OBSTRUCTIVE PULMONARY DISEASE, UNSPECIFIED SNOMED Code(s): 33294353 (4) Systolic heart failure Current Visit: Yes Status: Chronic Code(s): I50.20 - UNSPECIFIED SYSTOLIC ( CONGESTIVE) HEART FAILURE SNOMED Code(s): 514491375 (5) Aortic insufficiency Current Visit: Yes Status: Chronic Code(s): I35.1 - NONRHEUMATIC AORTIC ( VALVE) INSUFFICIENCY SNOMED Code(s): 33736146 (6) Hypothyroid Current Visit: Yes Status: Chronic Code(s): E03.9 - HYPOTHYROIDISM, UNSPECIFIED SNOMED Code(s): 36908080 (7) Mitral regurgitation Current Visit: Yes Status: Chronic Code(s): I34.0 - NONRHEUMATIC MITRAL ( VALVE) INSUFFICIENCY SNOMED Code(s): 80461370 (8) Rheumatoid arthritis Current Visit: Yes Status: Chronic Code(s): M06.9 - RHEUMATOID ARTHRITIS, UNSPECIFIED SNOMED Code(s): 18236178 Plan: 1. Continue low-dose aspirin, Arixtra. Beta dion therapy discontinued as patient becomes hypotensive shortly after each dose given. Statin therapy on hold secondary to elevated liver enzymes 2. Continue amiodarone for A. fib prophylaxis. Transition to oral amiodarone. 3. Wean O2 as tolerated, encourage incentive spirometry 10 times every hour. 4. Keep Villegas for 1 more day for strict accurate I and O. 5. Will send HIT panel. 6. Increase activity, ambulate as able. PT/OT/cardiac rehab following. 7. Will keep chest tubes for 1 more day. 8. Insulin/diabetic management per primary care service. 9. Will monitor daily labs and x-rays. 10. GI/DVT prophylaxis. 11. More recommendations to follow. Time with Patient: Greater than 30
--- NOTE | 2017-10-16 09:13 | XR ---
EXAMINATION TYPE: XR chest 1V portable DATE OF EXAM: 10/16/2017 COMPARISON: 10/15/2017 HISTORY: Post cardiac surgery TECHNIQUE: Single frontal view of the chest is obtained. FINDINGS: Postsurgical changes noted involving the right shoulder and mediastinum. Mediastinal drain and left-sided chest tube noted. Prosthetic heart valve. No sizable pneumothorax. Diffuse interstiti al pattern, bilateral infiltrate and small effusion noted. Arthropathy of the shoulders. Degenerative change of the spine. IMPRESSION: 1. Bilateral infiltrate and pleural effusion with findings suggestive of mild central venous congesti on stable. 2. Postoperative changes.
--- NOTE | 2017-10-16 10:17 | P.PN ---
Subjective Progress Note Date: 10/16/17 This is 72-year-old female with history of aortic insufficiency and also mitral insufficiency. Patient had aortic valve replacement and mitral valve repair. Patient operatively patient developed anemia requiring blood transfusion. Her blood pressure has been also running low at times. She had a bout of atrial fibrillation but converted back to sinus rhythm. She is currently being maintained on IV amiodarone. She also received one unit of blood this morning. Chest x-ray showed mild atelectatic changes. Her rhythm has been sinus. Patient is getting somewhat volume through blood pressure support. Her PA pressures of the low side. Patient may need further blood transfusion. Progress note for 10/16/2017: This patient is a sitting in the chair. Patient has episodes of hypotension after beta dion. She was taken of the beta dion. She is on amiodarone for a A. fib prophylaxis. Patient's hemoglobin improved after another unit of blood transfusion yesterday. Her liver enzymes are elevated. Could be from liver congestion or hypotension. Status upheld because of abnormal liver enzymes. Patient is also on dopamine. Renal functions are stable. Maintaining sinus rhythm Objective - Vital Signs Vital signs: Vital Signs Temp 98.4 F 10/16/17 08:00 Pulse 101 H 10/16/17 09:00 Resp 18 10/16/17 09:00 BP 118/53 10/16/17 09:00 Pulse Ox 95 10/16/17 09:00 Intake & Output 10/15/17 10/16/17 10/16/17 18:59 06:59 18:59 Intake Total 1038.284 904 384.331 Output Total 530 420 685 Balance 508.284 484 -300.669 Weight 62.7 kg 65.1 kg 65.1 kg Intake: IV 389 904 46 0.9 NaCl pressure bag 99 54 6 Albumin Human 5% 500 ml 500 In Empty Bag 1 bag @ 250 mls/hr IVPB ONCE ONE Rx#: [id number] CO/CI injectate 30 Dextrose 5% in Water 100 100 ml @ 618 mls/hr IV .Q10M ONE with Amiodarone 150 mg Rx#:[id number] Lactated Ringers 1,000 ml 260 250 40 @ 20 mls/hr IV .Q24H [facility] Rx#:[id number] Intake, IV Titration 219.284 278.331 Amount Amiodarone 450 mg In 278.331 Dextrose 5% in Water 250 ml @ 1 MG/MIN 33.33 mls/ hr IV .Q7H31M [facility] Rx#: [id number] Insulin Regular 100 unit 19.284 In Sodium Chloride 0.9% 100 ml @ Per Protocol IV .Q0M [facility] Rx#:[id number] Magnesium Sulfate-D5w Pmx 200 1 gm In Dextrose/Water 1 100ml.bag @ 100 mls/hr IVPB Q1H [facility] Rx#: [id number] Oral 120 60 Blood Product 310 Rc Pheresis As-3 Unit 310 [id number] Output: Chest Tube Drainage 160 80 30 Chest Tube Mediastinal 130 70 30 Left Pleural 30 10 0 Urine 370 340 655 Other: Voiding Method Indwelling Catheter Indwelling Catheter Indwelling Catheter # Bowel Movements 0 0 ABP, PAP, CO, CI - Last Documented Arterial Blood Pressure 102/53 Pulmonary Artery Pressure 29/9 Cardiac Output 4.5 Cardiac Index 3.1 - Exam GENERAL EXAM: Patient is alert and oriented and appears to be in mild to moderate distress and mildly tachypneic HEENT: Normocephalic. NECK: No masses, no nuchal rigidity. CHEST: No chest wall deformity. LUNGS: Diminished air exchange HEART: S1 and S2 normal with no audible mumurs o ABDOMEN: No hepatosplenomegaly, normal bowel sounds, no guarding or rigidity. SKIN: No rashes CENTRAL NERVOUS SYSTEM: No focal deficits. EXTREMITIES: No cyanosis, clubbing or edema. - Labs CBC & Chem 7: 10/16/17 04:36 10/16/17 04:36 Labs: Abnormal Lab Results - Last 24 Hours (Table) 10/09/17 10/15/17 10/15/17 Range/Units 17:05 11:11 12:25 WBC (3.8-10.6) k/uL RBC 2.83 L (3.80-5.40) m/uL Hgb 7.9 L (11.4-16.0) gm/dL Hct 24.7 L (34.0-46.0) % MCHC (31.0-37.0) g/dL RDW 15.8 H (11.5-15.5) % Plt Count 52 L (150-450) k/uL Neutrophils # 8.4 H (1.3-7.7) k/uL Lymphocytes # 0.9 L (1.0-4.8) k/uL Carbon Dioxide (22-30) mmol/L BUN (7-17) mg/dL Glucose (74-99) mg/dL POC Glucose (mg/dL) 229 H (75-99) mg/dL Magnesium (1.6-2.3) mg/dL Total Bilirubin (0.2-1.3) mg/dL AST (14-36) U/L ALT (9-52) U/L Total Protein (6.3-8.2) g/dL Albumin (3.5-5.0) g/dL Crossmatch See Detail 10/15/17 10/15/17 10/15/17 Range/Units 13:56 16:18 20:58 WBC (3.8-10.6) k/uL RBC (3.80-5.40) m/uL Hgb (11.4-16.0) gm/dL Hct (34.0-46.0) % MCHC (31.0-37.0) g/dL RDW (11.5-15.5) % Plt Count (150-450) k/uL Neutrophils # (1.3-7.7) k/uL Lymphocytes # (1.0-4.8) k/uL Carbon Dioxide (22-30) mmol/L BUN (7-17) mg/dL Glucose (74-99) mg/dL POC Glucose (mg/dL) 191 H 123 H 145 H (75-99) mg/dL Magnesium (1.6-2.3) mg/dL Total Bilirubin (0.2-1.3) mg/dL AST (14-36) U/L ALT (9-52) U/L Total Protein (6.3-8.2) g/dL Albumin (3.5-5.0) g/dL Crossmatch 10/16/17 10/16/17 10/16/17 Range/Units 04:36 04:36 07:05 WBC 11.6 H (3.8-10.6) k/uL RBC 3.17 L (3.80-5.40) m/uL Hgb 8.8 L (11.4-16.0) gm/dL Hct 28.6 L (34.0-46.0) % MCHC 30.8 L (31.0-37.0) g/dL RDW 16.4 H (11.5-15.5) % Plt Count 77 L (150-450) k/uL Neutrophils # (1.3-7.7) k/uL Lymphocytes # (1.0-4.8) k/uL Carbon Dioxide 21 L (22-30) mmol/L BUN 42 H (7-17) mg/dL Glucose 152 H (74-99) mg/dL POC Glucose (mg/dL) 148 H (75-99) mg/dL Magnesium 2.8 H (1.6-2.3) mg/dL Total Bilirubin 3.5 H (0.2-1.3) mg/dL AST 547 H (14-36) U/L ALT 359 H (9-52) U/L Total Protein 5.1 L (6.3-8.2) g/dL Albumin 3.2 L (3.5-5.0) g/dL Crossmatch Assessment and Plan (1) Aortic insufficiency Current Visit: Yes Status: Chronic Code(s): I35.1 - NONRHEUMATIC AORTIC ( VALVE) INSUFFICIENCY SNOMED Code(s): 67062540 (2) COPD (chronic obstructive pulmonary disease) Current Visit: Yes Status: Chronic Code(s): J44.9 - CHRONIC OBSTRUCTIVE PULMONARY DISEASE, UNSPECIFIED SNOMED Code(s): 59706179 (3) Mitral regurgitation Current Visit: Yes Status: Chronic Code(s): I34.0 - NONRHEUMATIC MITRAL ( VALVE) INSUFFICIENCY SNOMED Code(s): 78088656 (4) Rheumatoid arthritis Current Visit: Yes Status: Chronic Code(s): M06.9 - RHEUMATOID ARTHRITIS, UNSPECIFIED SNOMED Code(s): 75957122 (5) Systolic heart failure Current Visit: Yes Status: Chronic Code(s): I50.20 - UNSPECIFIED SYSTOLIC ( CONGESTIVE) HEART FAILURE SNOMED Code(s): 902653713 Plan: Patient is relatively stable. Maintaining sinus rhythm. Liver enzymes are elevated. Required vasopressors for blood pressure support. We'll continue current management. We'll follow her
--- NOTE | 2017-10-16 11:51 | P.PN ---
Subjective Progress Note Date: 10/16/17 Principal diagnosis: Status post aortic valve replacement and mitral valve repair, postoperative day #3 The patient is seen again today in follow-up 10/15/2017 in the intensive care unit. She was successfully extubated. This is postoperative day #2 following aortic valve replacement and a mitral valve repair. She is currently sitting up in a chair at the bedside. She is maintaining O2 saturations in the 90s on 4 L/m per nasal cannula. She is working well with the incentive spirometer. Chest x-ray is revealing a sore atelectasis with small effusions. Stable in comparison. Chest tubes remain in place. She has an IV of lactated Ringer's at 20 miles per hour. She is on insulin drip at 0.5 units per hour. Her hemoglobin was 6.8. She is receiving a unit of packed red blood cells. Current temperature 99.8. No tachycardia, no tachypnea. Hemodynamically stable. White count 8.4. Hemoglobin 6.8. Platelet count 69,000. Creatinine 0.73. Patient was reevaluated today on 10/16/2017, remains off mechanical ventilation, she is postoperative day #3, on nasal cannula, in no distress. Patient is sitting in a bedside chair. Chest x-ray was reviewed and her CBC showed WBC count of 11.6 hemoglobin is 8.8 electrolytes are normal BUN is 42 creatinine is 1.0. Liver enzymes are noted to be elevated with AST of 547 ALT of 359, statin therapy is presently on hold because of elevated liver enzymes, the amiodarone may have to be switched to another form of ventilatory the medications because of the liver enzymes. That will be decided upon by cardiology on the case. Chest x-ray is showing small bilateral pleural effusions, and mild central venous congestion with atelectasis. Objective - Vital Signs Vital signs: Vital Signs Temp 98.4 F 10/16/17 08:00 Pulse 101 H 10/16/17 09:00 Resp 18 10/16/17 09:00 BP 118/53 10/16/17 09:00 Pulse Ox 95 10/16/17 09:00 Intake & Output 10/15/17 10/16/17 10/16/17 18:59 06:59 18:59 Intake Total 1038.284 904 384.331 Output Total 530 420 685 Balance 508.284 484 -300.669 Weight 62.7 kg 65.1 kg 65.1 kg Intake: IV 389 904 46 0.9 NaCl pressure bag 99 54 6 Albumin Human 5% 500 ml 500 In Empty Bag 1 bag @ 250 mls/hr IVPB ONCE ONE Rx#: [id number] CO/CI injectate 30 Dextrose 5% in Water 100 100 ml @ 618 mls/hr IV .Q10M ONE with Amiodarone 150 mg Rx#:[id number] Lactated Ringers 1,000 ml 260 250 40 @ 20 mls/hr IV .Q24H [facility] Rx#:[id number] Intake, IV Titration 219.284 278.331 Amount Amiodarone 450 mg In 278.331 Dextrose 5% in Water 250 ml @ 1 MG/MIN 33.33 mls/ hr IV .Q7H31M [facility] Rx#: [id number] Insulin Regular 100 unit 19.284 In Sodium Chloride 0.9% 100 ml @ Per Protocol IV .Q0M [facility] Rx#:[id number] Magnesium Sulfate-D5w Pmx 200 1 gm In Dextrose/Water 1 100ml.bag @ 100 mls/hr IVPB Q1H [facility] Rx#: [id number] Oral 120 60 Blood Product 310 Rc Pheresis As-3 Unit 310 [id number] Output: Chest Tube Drainage 160 80 30 Chest Tube Mediastinal 130 70 30 Left Pleural 30 10 0 Urine 370 340 655 Other: Voiding Method Indwelling Catheter Indwelling Catheter Indwelling Catheter # Bowel Movements 0 0 ABP, PAP, CO, CI - Last Documented Arterial Blood Pressure 102/53 Pulmonary Artery Pressure 29/9 Cardiac Output 4.5 Cardiac Index 3.1 - Exam GENERAL EXAM: Alert, fairly comfortable in no apparent distress. HEAD: Normocephalic. EYES: Normal reaction of pupils, equal size. NOSE: Clear with pink turbinates. THROAT: No erythema or exudates. NECK: No masses, no JVD. Renfrew-Elise catheter in place. CHEST: Surgical dressing dry and intact. Heart Hugger in place.. LUNGS: Equal air entry with crackles in the posterior bases.. CVS: S1 and S2 normal with no audible murmur, regular rhythm. ABDOMEN: No hepatosplenomegaly, normal bowel sounds, no guarding or rigidity. SPINE: No scoliosis or deformity SKIN: No rashes CENTRAL NERVOUS SYSTEM: No focal deficits, tone is normal in all 4 extremities. EXTREMITIES: Sequential compression devices in place. There is trace peripheral edema. No clubbing, no cyanosis. Peripheral pulses are intact. - Labs CBC & Chem 7: 10/16/17 04:36 10/16/17 04:36 Labs: Abnormal Lab Results - Last 24 Hours (Table) 10/15/17 10/15/17 10/15/17 Range/Units 11:11 12:25 13:56 WBC (3.8-10.6) k/uL RBC 2.83 L (3.80-5.40) m/uL Hgb 7.9 L (11.4-16.0) gm/dL Hct 24.7 L (34.0-46.0) % MCHC (31.0-37.0) g/dL RDW 15.8 H (11.5-15.5) % Plt Count 52 L (150-450) k/uL Neutrophils # 8.4 H (1.3-7.7) k/uL Lymphocytes # 0.9 L (1.0-4.8) k/uL Carbon Dioxide (22-30) mmol/L BUN (7-17) mg/dL Glucose (74-99) mg/dL POC Glucose (mg/dL) 229 H 191 H (75-99) mg/dL Magnesium (1.6-2.3) mg/dL Total Bilirubin (0.2-1.3) mg/dL AST (14-36) U/L ALT (9-52) U/L Total Protein (6.3-8.2) g/dL Albumin (3.5-5.0) g/dL 10/15/17 10/15/17 10/16/17 Range/Units 16:18 20:58 04:36 WBC (3.8-10.6) k/uL RBC (3.80-5.40) m/uL Hgb (11.4-16.0) gm/dL Hct (34.0-46.0) % MCHC (31.0-37.0) g/dL RDW (11.5-15.5) % Plt Count (150-450) k/uL Neutrophils # (1.3-7.7) k/uL Lymphocytes # (1.0-4.8) k/uL Carbon Dioxide 21 L (22-30) mmol/L BUN 42 H (7-17) mg/dL Glucose 152 H (74-99) mg/dL POC Glucose (mg/dL) 123 H 145 H (75-99) mg/dL Magnesium 2.8 H (1.6-2.3) mg/dL Total Bilirubin 3.5 H (0.2-1.3) mg/dL AST 547 H (14-36) U/L ALT 359 H (9-52) U/L Total Protein 5.1 L (6.3-8.2) g/dL Albumin 3.2 L (3.5-5.0) g/dL 10/16/17 10/16/17 Range/Units 04:36 07:05 WBC 11.6 H (3.8-10.6) k/uL RBC 3.17 L (3.80-5.40) m/uL Hgb 8.8 L (11.4-16.0) gm/dL Hct 28.6 L (34.0-46.0) % MCHC 30.8 L (31.0-37.0) g/dL RDW 16.4 H (11.5-15.5) % Plt Count 77 L (150-450) k/uL Neutrophils # (1.3-7.7) k/uL Lymphocytes # (1.0-4.8) k/uL Carbon Dioxide (22-30) mmol/L BUN (7-17) mg/dL Glucose (74-99) mg/dL POC Glucose (mg/dL) 148 H (75-99) mg/dL Magnesium (1.6-2.3) mg/dL Total Bilirubin (0.2-1.3) mg/dL AST (14-36) U/L ALT (9-52) U/L Total Protein (6.3-8.2) g/dL Albumin (3.5-5.0) g/dL Assessment and Plan Assessment: Postop day #3 status post aortic valve replacement for aortic insufficiency and mitral valve repair Postoperative respiratory failure as an expected outcome of postsurgical condition, recovered. History of rheumatoid arthritis History of CHF History of COPD Hypothyroidism History of diverticular disease History of urinary tract infection Anemia requiring a second unit of packed red blood cells. Acute drug-induced hepatitis, could be related to simvastatin could also be related to amiodarone or related to both. Presently the statin is placed on hold, may have to consider changing amiodarone, but that will be decided upon by cardiology on the case. Recommendation: Continue present treatment plan, patient's clinical status is marginal at best, we'll continue to monitor in the ICU. Time with Patient: Less than 30
[2017-10-16] MEDS ORDERED: DEXTROSE 5% IN WATER 100 ML with AMIODARONE 150 MG IV ONE (11:57)
[2017-10-16 12:08] LABS: Glucose,Whole Blood 148 mg/dL (75-99)
--- NOTE | 2017-10-16 12:21 | P.PN ---
Subjective Progress Note Date: 10/16/17 This is a 72-year-old female with a known history aortic of severe aortic valve insufficiency and severe mitral regurgitation, congestive heart failure, rheumatoid arthritis, hypothyroidism, diverticulosis, and COPD. Initially patient underwent aortic valve replacement and mitral valve repair. She is currently intubated. Yesterday during a weaning trial she went into atrial fibrillation with rapid ventricular response. She also had an episode post operatively of A. fib and required cardioversion. Cardiothoracic surgeon has added amiodarone. Cardiology has been consulted. Patient's hemoglobin is 6.0 and platelets are 79. She did receive 1 unit of blood and is scheduled for a second unit today. She is also receiving fresh frozen plasma. Patient remains intubated and sedated. The planning to try another weaning trial today. We've been consulted for medical management. Currently on insulin drip for tight control of blood sugars postoperatively. Patient has no history of diabetes. 10/16/2017 patient sitting up in bedside chair. She is very weak and kind of hunched over. She had low urine outputs and was hypotensive dopamine added. Also was given Lasix and albumin. Urine output has improved. LFTs were noted to be elevated. Statin was discontinued and it also could be related to hypotension. Objective - Vital Signs Vital signs: Vital Signs Temp 98.4 F 10/16/17 08:00 Pulse 101 H 10/16/17 09:00 Resp 18 10/16/17 09:00 BP 118/53 10/16/17 09:00 Pulse Ox 95 10/16/17 09:00 Intake & Output 10/15/17 10/16/17 10/16/17 18:59 06:59 18:59 Intake Total 1038.284 904 384.331 Output Total 530 420 685 Balance 508.284 484 -300.669 Weight 62.7 kg 65.1 kg 65.1 kg Intake: IV 389 904 46 0.9 NaCl pressure bag 99 54 6 Albumin Human 5% 500 ml 500 In Empty Bag 1 bag @ 250 mls/hr IVPB ONCE ONE Rx#: [id number] CO/CI injectate 30 Dextrose 5% in Water 100 100 ml @ 618 mls/hr IV .Q10M ONE with Amiodarone 150 mg Rx#:[id number] Lactated Ringers 1,000 ml 260 250 40 @ 20 mls/hr IV .Q24H CARLOS Rx#:[id number] Intake, IV Titration 219.284 278.331 Amount Amiodarone 450 mg In 278.331 Dextrose 5% in Water 250 ml @ 1 MG/MIN 33.33 mls/ hr IV .Q7H31M CARLOS Rx#: [id number] Insulin Regular 100 unit 19.284 In Sodium Chloride 0.9% 100 ml @ Per Protocol IV .Q0M CARLOS Rx#:[id number] Magnesium Sulfate-D5w Pmx 200 1 gm In Dextrose/Water 1 100ml.bag @ 100 mls/hr IVPB Q1H CARLOS Rx#: [id number] Oral 120 60 Blood Product 310 Rc Pheresis As-3 Unit 310 [id number] Output: Chest Tube Drainage 160 80 30 Chest Tube Mediastinal 130 70 30 Left Pleural 30 10 0 Urine 370 340 655 Other: Voiding Method Indwelling Catheter Indwelling Catheter Indwelling Catheter # Bowel Movements 0 0 ABP, PAP, CO, CI - Last Documented Arterial Blood Pressure 102/53 Pulmonary Artery Pressure 29/9 Cardiac Output 4.5 Cardiac Index 3.1 - Exam Head normocephalic Neck supple Lungs clear to auscultation bilaterally no wheezing or crackles Heart regular rate and rhythm S1-S2, no rub or gallop Abdomen is soft nontender nondistended positive bowel sounds no hepatosplenomegaly Extremities no edema Neuro sleepy but able to answer questions - Labs CBC & Chem 7: 10/16/17 04:36 10/16/17 04:36 Labs: Abnormal Lab Results - Last 24 Hours (Table) 10/15/17 10/15/17 10/15/17 Range/Units 12:25 13:56 16:18 WBC (3.8-10.6) k/uL RBC (3.80-5.40) m/uL Hgb (11.4-16.0) gm/dL Hct (34.0-46.0) % MCHC (31.0-37.0) g/dL RDW (11.5-15.5) % Plt Count (150-450) k/uL Carbon Dioxide (22-30) mmol/L BUN (7-17) mg/dL Glucose (74-99) mg/dL POC Glucose (mg/dL) 229 H 191 H 123 H (75-99) mg/dL Magnesium (1.6-2.3) mg/dL Total Bilirubin (0.2-1.3) mg/dL AST (14-36) U/L ALT (9-52) U/L Total Protein (6.3-8.2) g/dL Albumin (3.5-5.0) g/dL 10/15/17 10/16/17 10/16/17 Range/Units 20:58 04:36 04:36 WBC 11.6 H (3.8-10.6) k/uL RBC 3.17 L (3.80-5.40) m/uL Hgb 8.8 L (11.4-16.0) gm/dL Hct 28.6 L (34.0-46.0) % MCHC 30.8 L (31.0-37.0) g/dL RDW 16.4 H (11.5-15.5) % Plt Count 77 L (150-450) k/uL Carbon Dioxide 21 L (22-30) mmol/L BUN 42 H (7-17) mg/dL Glucose 152 H (74-99) mg/dL POC Glucose (mg/dL) 145 H (75-99) mg/dL Magnesium 2.8 H (1.6-2.3) mg/dL Total Bilirubin 3.5 H (0.2-1.3) mg/dL AST 547 H (14-36) U/L ALT 359 H (9-52) U/L Total Protein 5.1 L (6.3-8.2) g/dL Albumin 3.2 L (3.5-5.0) g/dL 10/16/17 10/16/17 Range/Units 07:05 12:05 WBC (3.8-10.6) k/uL RBC (3.80-5.40) m/uL Hgb (11.4-16.0) gm/dL Hct (34.0-46.0) % MCHC (31.0-37.0) g/dL RDW (11.5-15.5) % Plt Count (150-450) k/uL Carbon Dioxide (22-30) mmol/L BUN (7-17) mg/dL Glucose (74-99) mg/dL POC Glucose (mg/dL) 148 H 148 H (75-99) mg/dL Magnesium (1.6-2.3) mg/dL Total Bilirubin (0.2-1.3) mg/dL AST (14-36) U/L ALT (9-52) U/L Total Protein (6.3-8.2) g/dL Albumin (3.5-5.0) g/dL Assessment and Plan Assessment: 1. status post aortic valve replacement and mitral valve repair for severe aortic valve insufficiency and severe mitral valve stenosis 2. Episodes of paroxysmal atrial fibrillation: Currently on amiodarone 400 mg by mouth every 8 hours 3. Expected acute blood loss anemia secondary to surgery. Patient has received blood transfusions. Hemoglobin is up to 8.8 4. Thrombocytopenia: Patient receiving fresh frozen plasma 5. Postop respiratory failure requiring mechanical ventilation with successful extubation 6. History of COPD 7. Hypothyroidism 8. Chronic systolic congestive heart failure with an EF of 40-45% 9. Rheumatoid arthritis 10. Prediabetic: Off of insulin drip and on Accu-Cheks 11. Low urine output and hypotension patient currently on dopamine drip did receive IV Lasix and albumin with improvement in her urine output 12. Elevated LFTs possibly medication induced or related to hypotension. Statin discontinued. Repeat labs ordered in a.m. DVT prophylaxis Balaxtra I performed an examination of the patient and discussed their management with the physician Lumber Puller. I have reviewed the Physician Lumber Puller's notes and agree with the documented findings and plan of care
[2017-10-16] MEDS: ASCORBIC ACID 500 MG TAB PO SCH (12:40)
[2017-10-16] MEDS: AMIODARONE 200 MG TAB PO SCH (16:09)
[2017-10-16 17:33] LABS: Glucose,Whole Blood 151 mg/dL (75-99)
[2017-10-16] MEDS: LACTATED RINGERS 1,000 ML IV SCH (17:59)
[2017-10-16 20:33] LABS: Glucose,Whole Blood 121 mg/dL (75-99)
[2017-10-16] MEDS: SENNOSIDES-DOCUSATE SODIUM 1 EACH TAB PO SCH (20:50)
[2017-10-16] MEDS: ALPRAZolam 0.25 MG TAB PO PRN (23:11)
[2017-10-17] MEDS: AMIODARONE 450 MG in DEXTROSE 5% IN WATER 250 ML IV SCH ×2 (00:23)
[2017-10-17] MEDS: AMIODARONE 200 MG TAB PO SCH ×4 (00:24→23:43)
[2017-10-17 05:15] LABS: Anisocytosis Slight; HCT 26.3 % (34.0-46.0); HGB 8.1 gm/dL (11.4-16.0); Hypochromasia Slight; MCH 27.7 pg (25.0-35.0); MCHC 30.9 g/dL (31.0-37.0); MCV 89.6 fL (80.0-100.0); Mean Platelet Volume 10.2; Poikilocytosis Slight; RBC 2.94 m/uL (3.80-5.40); RDW 16.7 % (11.5-15.5); WBC 10.4 k/uL (3.8-10.6)
[2017-10-17 05:19] LABS: Platelet Count 57 k/uL (150-450)
[2017-10-17 05:20] LABS: Ionized Calcium 4.6 mg/dL (4.5-5.3)
[2017-10-17 05:27] LABS: Albumin 3.4 g/dL (3.5-5.0); Alkaline Phosphatase 83 U/L (38-126); Anion Gap 9 mmol/L; Blood Urea Nitrogen 41 mg/dL (7-17); Calcium 8.3 mg/dL (8.4-10.2); Carbon Dioxide 28 mmol/L (22-30); Chloride 101 mmol/L (98-107); Glucose 94 mg/dL (74-99); Magnesium 2.5 mg/dL (1.6-2.3); Phosphorus 2.6 mg/dL (2.5-4.5); Sodium 138 mmol/L (137-145); Total Bilirubin 3.2 mg/dL (0.2-1.3); Total Protein 5.4 g/dL (6.3-8.2)
[2017-10-17 05:59] LABS: ALT 1259 U/L (9-52); AST 1811 U/L (14-36)
[2017-10-17] MEDS: LEVOTHYROXINE 100 MCG TAB PO SCH (06:10)
[2017-10-17 07:18] LABS: Glucose,Whole Blood 106 mg/dL (75-99)
--- NOTE | 2017-10-17 07:59 | XR ---
EXAMINATION TYPE: XR chest 1V portable DATE OF EXAM: 10/17/2017 COMPARISON: Prior chest x-ray 10/16/2017 HISTORY: Status post cardiac surgery, chest tube TECHNIQUE: Single frontal view of the chest is obtained. FINDINGS: Patient is rotated and post median sternotomy. Left chest tube remains in place. The heart remains enlarged. Aortic valve replacement is noted. There is been interval development of perihilar airspace disease perhaps greater on the right. No sizable pneumothorax or pleural effusion is eviden t. Median sternal drains have been removed. IMPRESSION: Interval development of airspace disease, correlate for pulmonary edema versus pneumonia
[2017-10-17] MEDS: IPRATROPIUM-ALBUTEROL 3 ML NEB INHALATION SCH ×4 (08:15→20:46)
[2017-10-17] MEDS ORDERED: DIGOXIN 250 MCG/ML 2 ML AMP IVP STA (08:25)
[2017-10-17] MEDS: ALPRAZolam 0.25 MG TAB PO PRN ×2 (08:30→21:37)
[2017-10-17] MEDS: HYDROcodone/APAP 5-325MG 1 EACH TAB PO PRN ×2 (08:30→12:43)
[2017-10-17] MEDS ORDERED: FUROSEMIDE 10 MG/ML 4 ML VIAL IV STA (08:31)
[2017-10-17] MEDS: DEXTROSE/WATER 1 500ML.BAG with DOPamine DRIP 800 MG IV SCH (08:36)
[2017-10-17 09:06] LABS: Amylase 45 U/L (30-110); Lipase 155 U/L (23-300)
[2017-10-17] MEDS: INSULIN ASPART 100 UNIT/ML 1 ML 10 ML VIAL SQ SCH ×4 (09:37→21:35)
[2017-10-17] MEDS: FERROUS SULFATE 325 MG TAB PO SCH ×2 (09:37→18:17)
[2017-10-17] MEDS: PANTOPRAZOLE 40 MG TABLET PO SCH (09:38)
[2017-10-17] MEDS: FONDAPARINUX 2.5 MG/0.5 ML SYRINGE SQ SCH (09:42)
[2017-10-17] MEDS: ASPIRIN 81 MG PO SCH (09:42)
--- NOTE | 2017-10-17 09:51 | P.CONS ---
History of Present Illness - Reason for Consult Consult date: 10/17/17 Elevated liver enzymes Requesting physician: Abel Man - History of Present Illness 72-year-old female with a history of severe aortic insufficiency and mitral regurgitation postoperative day #4 aortic valve replacement with bioprosthetic aortic valve, mitral valve repair and clip ligation of left atrial appendage. Consultation requested for elevated liver enzymes. Patient's blood pressures have been labile and low postoperatively systolically 70-90s. Intravenous amiodarone was discontinued this morning. She's received boluses of albumin, fluids, as well as diuretics. Preoperative liver enzymes within normal limits, hepatitis screen nonreactive. Afebrile. Denies abdominal pain. Postoperatively her total bilirubin 1.8-3.2. AST 60-1811. ALT 28-1259. Alkaline phosphatase 83-101. No history of hepatitis or known liver disorders. No history of alcoholism. Hemoglobin 8.1. White count 10.4. Platelet 57,000; preoperatively within normal limits. BUN creatinine preoperatively within normal limits presently BUN is 41. Creatinine 0.8. Old CT abdomen and pelvis from 2014 reported a liver consistent with diffuse fatty infiltration. Review of Systems Constitutional: Denies fever, chills, sweats, weight gain, or loss. HEENT: Negative for migraines, blurred vision or loss, earaches, drainage, tinnitus, oral mucosal lesions, dysphagia, or odynophagia. CARDIAC: Negative for chest pain, arrhythmias, or palpitation. RESPIRATORY: COPD. Negative for shortness of breath, hemoptysis, cough, or sputum production. GI: See HPI for pertinent findings. : Negative for hematuria, urgency, frequency, polyuria, or dysuria. GYNc: Denies possibility of . Negative vaginal discharge. MUSCULOSKELETAL: History of rheumatoid arthritis. Negative for muscle aches, swelling, arthritis, and arthralgias. NEUROLOGIC: Negative for stroke or TIA. ENDOCRINE: History of partial thyroidectomy. SKIN: Negative for rash or itching. PSYCHIATRIC: Negative history for depression and anxiety Past Medical History Past Medical History: COPD, GERD/Reflux, Renal Disease, Rheumatoid Arthritis (RA ), Thyroid Disorder Additional Past Medical History / Comment(s): Nephrolithiasis, rheumatoid arthritis several joints, cardiac murmur. diverticular dx, recent UTI/ completed ABX. Episode of nonsustained ventricle tachycardia, SOB w/exertion History of Any Multi-Drug Resistant Organisms: None Reported Past Surgical History: Heart Catheterization, Hysterectomy, Joint Replacement, Orthopedic Surgery Additional Past Surgical History / Comment(s): Recent MATTHEW, ti total knees arthroplasty,lt hip arthroplasty, goiter removed 1962, partial thyroidectomy, cataracts removed with lens implants, REVERSE TOTAL RIGHT SHOULDER; Rotator cuff R shoulder, cervical fusion/injections, colonoscopy. Past Anesthesia/Blood Transfusion Reactions: No Reported Reaction Smoking Status: Former smoker - Past Family History Father Additional Family Medical History / Comment(s): in his 80's of a mi Mother Additional Family Medical History / Comment(s): age 88 in [address] pt not sure what she from. hx smoking. Medications and Allergies Home Medications Medication Instructions Recorded Confirmed Type ALPRAZolam [Xanax] 0.25 mg PO Q8H PRN 01/22/14 10/13/17 History Ascorbic Acid [Vitamin C] 500 mg PO DAILY 01/22/14 10/13/17 History Cholecalciferol [Vitamin D3] 2,000 units PO DAILY 01/22/14 10/13/17 History Furosemide [Lasix] 20 mg PO DAILY 06/18/16 10/13/17 History Naproxen [Naprosyn] 500 mg PO Q12HR PRN 07/15/16 10/13/17 History Albuterol Sulfate [Proair Hfa] 1 - 2 puff INHALATION RT-Q6H PRN 09/15/17 History Fluticasone/Salmeterol [Advair Hfa 1 - 2 puff INHALATION RT-BID 09/15/17 History 230-21 Mcg Inhaler] HYDROcodone/APAP 10-325MG [[place] 1 tab PO Q6H PRN 09/15/17 10/13/17 History 10-325] Metoprolol Tartrate [Lopressor] 25 mg PO DAILY #30 tab 09/18/17 10/13/17 Rx Ipratropium/Albuterol Sulfate 1 puff INHALATION RT-QID PRN 09/29/17 10/13/17 History [Combivent Respimat Inhaler] Levothyroxine Sodium [Synthroid] 150 mcg PO DAILY 09/29/17 10/13/17 History Losartan [Cozaar] 12.5 mg PO DAILY 09/29/17 10/13/17 History Ferrous Sulfate [Iron (65 MG 325 mg PO DAILY 10/10/17 10/13/17 History Elemental)] Pantoprazole [Protonix] 40 mg PO DAILY PRN 10/10/17 10/13/17 History Aspirin 324 mg PO ONCE 10/13/17 10/13/17 History Allergies Allergy/AdvReac Type Severity Reaction Status Date / Time lisinopril Allergy Unknown Verified 10/13/17 06:23 Physical Exam Vitals: Vital Signs Temp Pulse Resp BP Pulse Ox 10/17/17 08:34 131 H 10/17/17 08:19 133 H 97 10/17/17 08:00 98.7 F 121 H 19 97/48 97 10/17/17 07:00 124 H 17 88/47 100 10/17/17 06:00 119 H 16 109/62 100 10/17/17 05:00 120 H 15 80/58 98 10/17/17 04:00 99.1 F 102 H 14 93/66 100 10/17/17 03:00 115 H 15 115/62 98 10/17/17 02:24 98 10/17/17 02:00 118 H 14 90/48 100 10/17/17 01:00 102 H 15 95/62 100 10/17/17 00:00 98.1 F 114 H 16 102/56 98 10/16/17 23:14 98 19 114/64 96 10/16/17 23:00 107 H 13 104/58 99 10/16/17 22:00 115 H 15 87/56 99 10/16/17 21:00 110 H 16 88/50 98 10/16/17 20:00 98.4 F 103 H 16 92/49 100 10/16/17 19:00 113 H 15 99/57 99 10/16/17 18:00 105 H 15 79/50 99 10/16/17 17:00 119 H 21 118/55 99 10/16/17 16:00 97.0 F L 112 H 17 99/63 99 10/16/17 15:00 91 17 99/45 99 10/16/17 14:16 97 10/16/17 14:00 105 H 19 114/48 94 L 10/16/17 13:00 114 H 22 127/72 94 L 10/16/17 12:00 98.8 F 130 H 33 H 119/58 94 L 10/16/17 11:00 102 H 21 102/55 95 10/16/17 10:00 93 18 99/47 98 Intake and Output 10/16/17 10/17/17 10/17/17 22:59 06:59 14:59 Intake Total 161 184 46 Output Total 300 365 125 Balance -139 -181 -79 Intake: IV 161 184 46 0.9 NaCl pressure bag 21 24 6 Lactated Ringers 1,000 ml 140 160 40 @ 20 mls/hr IV .Q24H CARLOS Rx#:[id number] Output: Chest Tube Drainage 0 70 60 Chest Tube Mediastinal 0 Left Pleural 0 70 60 Urine 300 295 65 Other: Voiding Method Indwelling Catheter Indwelling Catheter # Bowel Movements 0 Weight 65.1 kg 65.3 kg General appearance: The patient is alert, oriented, in no acute distress. HET: Head is normocephalic and atraumatic. Pupils are equal and reactive. Oropharynx is clear without lesions. Neck: Supple without lymphadenopathy. Trachea midline. Heart: S1 S2. Lungs: Diminished in bases bilaterally. No crackles or wheezes are heard. Abdomen: Soft, nontender, nondistended with bowel sounds. No peritoneal signs. No palpable organomegaly or masses. Extremities: Normal skin color and turgor. No cyanosis, rash, ulceration, clubbing, or edema. Radial and pedal pulses are 2/4 bilaterally.Villegas with clear yellow urine. Neurological: No focal deficits. Strength and sensation are grossly intact. Results CBC & Chem 7: 10/17/17 04:33 10/17/17 04:33 Labs: Abnormal Lab Results - Last 24 Hours (Table) 10/16/17 10/16/17 10/16/17 Range/Units 12:05 17:32 20:30 RBC (3.80-5.40) m/uL Hgb (11.4-16.0) gm/dL Hct (34.0-46.0) % MCHC (31.0-37.0) g/dL RDW (11.5-15.5) % Plt Count (150-450) k/uL BUN (7-17) mg/dL POC Glucose (mg/dL) 148 H 151 H 121 H (75-99) mg/dL Calcium (8.4-10.2) mg/dL Magnesium (1.6-2.3) mg/dL Total Bilirubin (0.2-1.3) mg/dL AST (14-36) U/L ALT (9-52) U/L Total Protein (6.3-8.2) g/dL Albumin (3.5-5.0) g/dL 10/17/17 10/17/17 10/17/17 Range/Units 04:33 04:33 07:17 RBC 2.94 L (3.80-5.40) m/uL Hgb 8.1 L (11.4-16.0) gm/dL Hct 26.3 L (34.0-46.0) % MCHC 30.9 L (31.0-37.0) g/dL RDW 16.7 H (11.5-15.5) % Plt Count 57 L (150-450) k/uL BUN 41 H (7-17) mg/dL POC Glucose (mg/dL) 106 H (75-99) mg/dL Calcium 8.3 L (8.4-10.2) mg/dL Magnesium 2.5 H (1.6-2.3) mg/dL Total Bilirubin 3.2 H (0.2-1.3) mg/dL AST 1811 H (14-36) U/L ALT 1259 H (9-52) U/L Total Protein 5.4 L (6.3-8.2) g/dL Albumin 3.4 L (3.5-5.0) g/dL Assessment and Plan (1) Ischemic hepatitis Narrative/Plan: 72-year-old female history of severe aortic mitral valve insufficiency postop day 4 bioprosthetic aVR with mitral valve repair with postoperative labile hypotensive blood pressures with new onset of elevated BUN and liver enzymes consistent with acute ischemic hepatitis with suspected superimposed drug- induced liver injury secondary to amiodarone. Current Visit: Yes Status: Acute Code(s): K75.9 - INFLAMMATORY LIVER DISEASE , UNSPECIFIED SNOMED Code(s): 222908231 Plan: 1. Daily CMP; amiodarone discontinued. Suspect improvement in LFTs once blood pressures become more regulated. 2. Continue to avoid hepatotoxic medications. 3. Will follow closely with you. Thank you for this kind referral and the opportunity to participate in the care of your patient. This consultation was discussed with Dr. Marcial. The impression and plan of care have been directed as dictated.
--- NOTE | 2017-10-17 10:44 | P.PN ---
Subjective Progress Note Date: 10/17/17 This is a 72-year-old female with a known history aortic of severe aortic valve insufficiency and severe mitral regurgitation, congestive heart failure, rheumatoid arthritis, hypothyroidism, diverticulosis, and COPD. Initially patient underwent aortic valve replacement and mitral valve repair. She is currently intubated. Yesterday during a weaning trial she went into atrial fibrillation with rapid ventricular response. She also had an episode post operatively of A. fib and required cardioversion. Cardiothoracic surgeon has added amiodarone. Cardiology has been consulted. Patient's hemoglobin is 6.0 and platelets are 79. She did receive 1 unit of blood and is scheduled for a second unit today. She is also receiving fresh frozen plasma. Patient remains intubated and sedated. The planning to try another weaning trial today. We've been consulted for medical management. Currently on insulin drip for tight control of blood sugars postoperatively. Patient has no history of diabetes. 10/16/2017 patient sitting up in bedside chair. She is very weak and kind of hunched over. She had low urine outputs and was hypotensive dopamine added. Also was given Lasix and albumin. Urine output has improved. LFTs were noted to be elevated. Statin was discontinued and it also could be related to hypotension. 10/17/2017 patient has some elevation in her LFTs AST 1811 ALT 1259. Total bilirubin 3.5. She has been seen by GI service. They felt related to an ischemic hepatitis due to hypotension and amiodarone. The recommending to discontinue the amiodarone. Case discussed with GI service. Patient statin also discontinued. Patient sitting in bedside chair. Has one chest tube. On high flow 5 L satting at 100%. Hemoglobin 8.1 and platelets 56. Chest x-ray showing interval development of airspace disease correlate for pulmonary edema versus pneumonia. Patient was given 1 dose of IV Lasix per Dr. Man. Patient dopamine was discontinued today. She's been having atrial flutter. Cardiology ordered digoxin. Patient denies any chest pain shortness of breath. Objective - Vital Signs Vital signs: Vital Signs Temp 98.7 F 10/17/17 08:00 Pulse 122 H 10/17/17 09:00 Resp 20 10/17/17 09:00 BP 100/43 10/17/17 09:00 Pulse Ox 97 10/17/17 09:00 Intake & Output 10/16/17 10/17/17 10/17/17 18:59 06:59 18:59 Intake Total 651.331 253 69 Output Total 2060 500 170 Balance -1408.669 -247 -101 Weight 65.1 kg 65.3 kg Intake: IV 253 253 69 0.9 NaCl pressure bag 33 33 9 Lactated Ringers 1,000 ml 220 220 60 @ 20 mls/hr IV .Q24H CARLOS Rx#:[id number] Intake, IV Titration 278.331 Amount Amiodarone 450 mg In 278.331 Dextrose 5% in Water 250 ml @ 1 MG/MIN 33.33 mls/ hr IV .Q7H31M CARLOS Rx#: [id number] Oral 120 Output: Chest Tube Drainage 130 70 70 Chest Tube Mediastinal 80 Left Pleural 50 70 70 Urine 1930 430 100 Other: Voiding Method Indwelling Catheter Indwelling Catheter # Bowel Movements 0 ABP, PAP, CO, CI - Last Documented Arterial Blood Pressure 102/53 Pulmonary Artery Pressure 29/9 Cardiac Output 4.5 Cardiac Index 3.1 - Exam Head normocephalic Neck supple Lungs crackles at bases Heart regular rate and rhythm S1-S2, no rub or gallop Abdomen is soft nontender nondistended positive bowel sounds no hepatosplenomegaly Extremities no edema Neuro sleepy but able to answer questions - Labs CBC & Chem 7: 10/17/17 04:33 10/17/17 04:33 Labs: Abnormal Lab Results - Last 24 Hours (Table) 10/16/17 10/16/17 10/16/17 Range/Units 12:05 17:32 20:30 RBC (3.80-5.40) m/uL Hgb (11.4-16.0) gm/dL Hct (34.0-46.0) % MCHC (31.0-37.0) g/dL RDW (11.5-15.5) % Plt Count (150-450) k/uL BUN (7-17) mg/dL POC Glucose (mg/dL) 148 H 151 H 121 H (75-99) mg/dL Calcium (8.4-10.2) mg/dL Magnesium (1.6-2.3) mg/dL Total Bilirubin (0.2-1.3) mg/dL AST (14-36) U/L ALT (9-52) U/L Total Protein (6.3-8.2) g/dL Albumin (3.5-5.0) g/dL 10/17/17 10/17/17 10/17/17 Range/Units 04:33 04:33 07:17 RBC 2.94 L (3.80-5.40) m/uL Hgb 8.1 L (11.4-16.0) gm/dL Hct 26.3 L (34.0-46.0) % MCHC 30.9 L (31.0-37.0) g/dL RDW 16.7 H (11.5-15.5) % Plt Count 57 L (150-450) k/uL BUN 41 H (7-17) mg/dL POC Glucose (mg/dL) 106 H (75-99) mg/dL Calcium 8.3 L (8.4-10.2) mg/dL Magnesium 2.5 H (1.6-2.3) mg/dL Total Bilirubin 3.2 H (0.2-1.3) mg/dL AST 1811 H (14-36) U/L ALT 1259 H (9-52) U/L Total Protein 5.4 L (6.3-8.2) g/dL Albumin 3.4 L (3.5-5.0) g/dL Assessment and Plan Assessment: 1. status post aortic valve replacement and mitral valve repair for severe aortic valve insufficiency and severe mitral valve stenosis 2. Episodes of paroxysmal atrial fibrillation with rapid ventricular response: Amiodarone hold this morning due to elevated LFTs. Cardiology has ordered digoxin 3. Expected acute blood loss anemia secondary to surgery. Patient has received blood transfusions. Hemoglobin is 8.1 4. Thrombocytopenia: Continue to monitor. Patient did receive FFP during this admission 5. Postop respiratory failure requiring mechanical ventilation with successful extubation 6. History of COPD 7. Hypothyroidism 8. Chronic systolic congestive heart failure with an EF of 40-45% 9. Rheumatoid arthritis 10. Prediabetic: Off of insulin drip and on Accu-Cheks 11. Fluid overload: Patient receiving IV Lasix 12. Ischemic hepatitis: Likely related to hypotension and medications. Statin discontinued. Amiodarone currently on hold. Evaluated by GI service. DVT prophylaxis Ant I performed an examination of the patient and discussed their management with the physician Booth Operator. I have reviewed the Physician Booth Operator's notes and agree with the documented findings and plan of care
--- NOTE | 2017-10-17 10:50 | P.PN ---
Subjective Progress Note Date: 10/17/17 This is 72-year-old female with history of aortic insufficiency and also mitral insufficiency. Patient had aortic valve replacement and mitral valve repair. Patient operatively patient developed anemia requiring blood transfusion. Her blood pressure has been also running low at times. She had a bout of atrial fibrillation but converted back to sinus rhythm. She is currently being maintained on IV amiodarone. She also received one unit of blood this morning. Chest x-ray showed mild atelectatic changes. Her rhythm has been sinus. Patient is getting somewhat volume through blood pressure support. Her PA pressures of the low side. Patient may need further blood transfusion. Progress note for 10/16/2017: This patient is a sitting in the chair. Patient has episodes of hypotension after beta dion. She was taken of the beta dion. She is on amiodarone for a A. fib prophylaxis. Patient's hemoglobin improved after another unit of blood transfusion yesterday. Her liver enzymes are elevated. Could be from liver congestion or hypotension. Status upheld because of abnormal liver enzymes. Patient is also on dopamine. Renal functions are stable. Maintaining sinus rhythm . Progress note for 10/17/2017: This patient is a status post aortic valve replacement and mitral valve repair. Patient is complaining of shortness of breath. A chest x-ray shows some evidence of CHF. She is getting IV Lasix. She is in atrial tachycardia/atrial flutter with 2 to one conduction. She is received IV Lanoxin. Patient may need IV Cardizem necessary. Patient is recovering slowly. Objective - Vital Signs Vital signs: Vital Signs Temp 98.7 F 10/17/17 08:00 Pulse 122 H 10/17/17 09:00 Resp 20 10/17/17 09:00 BP 100/43 10/17/17 09:00 Pulse Ox 97 10/17/17 09:00 Intake & Output 10/16/17 10/17/17 10/17/17 18:59 06:59 18:59 Intake Total 651.331 253 69 Output Total 2060 500 170 Balance -1408.669 -247 -101 Weight 65.1 kg 65.3 kg Intake: IV 253 253 69 0.9 NaCl pressure bag 33 33 9 Lactated Ringers 1,000 ml 220 220 60 @ 20 mls/hr IV .Q24H [facility] Rx#:[id number] Intake, IV Titration 278.331 Amount Amiodarone 450 mg In 278.331 Dextrose 5% in Water 250 ml @ 1 MG/MIN 33.33 mls/ hr IV .Q7H31M [facility] Rx#: [id number] Oral 120 Output: Chest Tube Drainage 130 70 70 Chest Tube Mediastinal 80 Left Pleural 50 70 70 Urine 1930 430 100 Other: Voiding Method Indwelling Catheter Indwelling Catheter # Bowel Movements 0 ABP, PAP, CO, CI - Last Documented Arterial Blood Pressure 102/53 Pulmonary Artery Pressure 29/9 Cardiac Output 4.5 Cardiac Index 3.1 - Exam GENERAL EXAM: Patient is alert and oriented and appears to be in mild to moderate distress and mildly tachypneic HEENT: Normocephalic. NECK: No masses, no nuchal rigidity. CHEST: No chest wall deformity. LUNGS: Diminished air exchange HEART: S1 and S2 normal with no audible mumurs o ABDOMEN: No hepatosplenomegaly, normal bowel sounds, no guarding or rigidity. SKIN: No rashes CENTRAL NERVOUS SYSTEM: No focal deficits. EXTREMITIES: No cyanosis, clubbing or edema. - Labs CBC & Chem 7: 10/17/17 04:33 10/17/17 04:33 Labs: Abnormal Lab Results - Last 24 Hours (Table) 10/16/17 10/16/17 10/16/17 Range/Units 12:05 17:32 20:30 RBC (3.80-5.40) m/uL Hgb (11.4-16.0) gm/dL Hct (34.0-46.0) % MCHC (31.0-37.0) g/dL RDW (11.5-15.5) % Plt Count (150-450) k/uL BUN (7-17) mg/dL POC Glucose (mg/dL) 148 H 151 H 121 H (75-99) mg/dL Calcium (8.4-10.2) mg/dL Magnesium (1.6-2.3) mg/dL Total Bilirubin (0.2-1.3) mg/dL AST (14-36) U/L ALT (9-52) U/L Total Protein (6.3-8.2) g/dL Albumin (3.5-5.0) g/dL 10/17/17 10/17/17 10/17/17 Range/Units 04:33 04:33 07:17 RBC 2.94 L (3.80-5.40) m/uL Hgb 8.1 L (11.4-16.0) gm/dL Hct 26.3 L (34.0-46.0) % MCHC 30.9 L (31.0-37.0) g/dL RDW 16.7 H (11.5-15.5) % Plt Count 57 L (150-450) k/uL BUN 41 H (7-17) mg/dL POC Glucose (mg/dL) 106 H (75-99) mg/dL Calcium 8.3 L (8.4-10.2) mg/dL Magnesium 2.5 H (1.6-2.3) mg/dL Total Bilirubin 3.2 H (0.2-1.3) mg/dL AST 1811 H (14-36) U/L ALT 1259 H (9-52) U/L Total Protein 5.4 L (6.3-8.2) g/dL Albumin 3.4 L (3.5-5.0) g/dL Assessment and Plan (1) Aortic insufficiency Current Visit: Yes Status: Chronic Code(s): I35.1 - NONRHEUMATIC AORTIC ( VALVE) INSUFFICIENCY SNOMED Code(s): 46228945 (2) COPD (chronic obstructive pulmonary disease) Current Visit: Yes Status: Chronic Code(s): J44.9 - CHRONIC OBSTRUCTIVE PULMONARY DISEASE, UNSPECIFIED SNOMED Code(s): 99067186 (3) Mitral regurgitation Current Visit: Yes Status: Chronic Code(s): I34.0 - NONRHEUMATIC MITRAL ( VALVE) INSUFFICIENCY SNOMED Code(s): 58892158 (4) Rheumatoid arthritis Current Visit: Yes Status: Chronic Code(s): M06.9 - RHEUMATOID ARTHRITIS, UNSPECIFIED SNOMED Code(s): 96434638 (5) Systolic heart failure Current Visit: Yes Status: Chronic Code(s): I50.20 - UNSPECIFIED SYSTOLIC ( CONGESTIVE) HEART FAILURE SNOMED Code(s): 032717369 Plan: Patient is in atrial flutter/atrial tachycardia with 2 to 1 conduction. Has received IV digoxin. Complaints of shortness of breath. Chest x-ray shows findings of CHF. She is getting IV Lasix. Patient is making slow progress
[2017-10-17 12:01] LABS: Glucose,Whole Blood 106 mg/dL (75-99)
--- NOTE | 2017-10-17 12:01 | P.PN ---
Subjective Progress Note Date: 10/17/17 Principal diagnosis: Status post aortic valve replacement and mitral valve repair, postoperative day #4 The patient is seen again today in follow-up 10/15/2017 in the intensive care unit. She was successfully extubated. This is postoperative day #2 following aortic valve replacement and a mitral valve repair. She is currently sitting up in a chair at the bedside. She is maintaining O2 saturations in the 90s on 4 L/m per nasal cannula. She is working well with the incentive spirometer. Chest x-ray is revealing a sore atelectasis with small effusions. Stable in comparison. Chest tubes remain in place. She has an IV of lactated Ringer's at 20 miles per hour. She is on insulin drip at 0.5 units per hour. Her hemoglobin was 6.8. She is receiving a unit of packed red blood cells. Current temperature 99.8. No tachycardia, no tachypnea. Hemodynamically stable. White count 8.4. Hemoglobin 6.8. Platelet count 69,000. Creatinine 0.73. Patient was reevaluated today on 10/16/2017, remains off mechanical ventilation, she is postoperative day #3, on nasal cannula, in no distress. Patient is sitting in a bedside chair. Chest x-ray was reviewed and her CBC showed WBC count of 11.6 hemoglobin is 8.8 electrolytes are normal BUN is 42 creatinine is 1.0. Liver enzymes are noted to be elevated with AST of 547 ALT of 359, statin therapy is presently on hold because of elevated liver enzymes, the amiodarone may have to be switched to another form of ventilatory the medications because of the liver enzymes. That will be decided upon by cardiology on the case. Chest x-ray is showing small bilateral pleural effusions, and mild central venous congestion with atelectasis. Patient was reevaluated today on 10/17/2017, patient is now postoperative day # 4. Remains on nasal cannula, however the patient seems to be generally weak, frail, and doing very poorly with incentive spirometry. Her chest x-ray is showing some worsening atelectasis in the right lower lobe, and possibly some component of fluid overload. Her liver enzymes seem to be on the rise, most likely secondary to amiodarone, could also be related to intermittent episodes of hypotension. Or probably both. I think amiodarone is presently on hold by cardiology, the atrial fibrillation could be managed with digoxin and possibly Cardizem. Objective - Vital Signs Vital signs: Vital Signs Temp 98.7 F 10/17/17 08:00 Pulse 95 10/17/17 11:00 Resp 21 10/17/17 11:00 BP 113/61 10/17/17 11:00 Pulse Ox 94 L 10/17/17 11:00 Intake & Output 10/16/17 10/17/17 10/17/17 18:59 06:59 18:59 Intake Total 651.331 253 115 Output Total 2060 500 255 Balance -1408.669 -247 -140 Weight 65.1 kg 65.3 kg Intake: IV 253 253 115 0.9 NaCl pressure bag 33 33 15 Lactated Ringers 1,000 ml 220 220 100 @ 20 mls/hr IV .Q24H [facility] Rx#:[id number] Intake, IV Titration 278.331 Amount Amiodarone 450 mg In 278.331 Dextrose 5% in Water 250 ml @ 1 MG/MIN 33.33 mls/ hr IV .Q7H31M [facility] Rx#: [id number] Oral 120 Output: Chest Tube Drainage 130 70 100 Chest Tube Mediastinal 80 Left Pleural 50 70 100 Urine 1930 430 155 Other: Voiding Method Indwelling Catheter Indwelling Catheter # Bowel Movements 0 ABP, PAP, CO, CI - Last Documented Arterial Blood Pressure 102/53 Pulmonary Artery Pressure 29/9 Cardiac Output 4.5 Cardiac Index 3.1 - Exam GENERAL EXAM: Alert, fairly comfortable in no apparent distress. HEAD: Normocephalic. EYES: Normal reaction of pupils, equal size. NOSE: Clear with pink turbinates. THROAT: No erythema or exudates. NECK: No masses, no JVD. [place]ise catheter in place. CHEST: Surgical dressing dry and intact. Heart Hugger in place.. LUNGS: Equal air entry with crackles in the posterior bases.. CVS: S1 and S2 normal with no audible murmur, regular rhythm. ABDOMEN: No hepatosplenomegaly, normal bowel sounds, no guarding or rigidity. SPINE: No scoliosis or deformity SKIN: No rashes CENTRAL NERVOUS SYSTEM: No focal deficits, tone is normal in all 4 extremities. EXTREMITIES: Sequential compression devices in place. There is trace peripheral edema. No clubbing, no cyanosis. Peripheral pulses are intact. - Labs CBC & Chem 7: 10/17/17 04:33 10/17/17 04:33 Labs: Abnormal Lab Results - Last 24 Hours (Table) 10/16/17 10/16/17 10/16/17 Range/Units 12:05 17:32 20:30 RBC (3.80-5.40) m/uL Hgb (11.4-16.0) gm/dL Hct (34.0-46.0) % MCHC (31.0-37.0) g/dL RDW (11.5-15.5) % Plt Count (150-450) k/uL BUN (7-17) mg/dL POC Glucose (mg/dL) 148 H 151 H 121 H (75-99) mg/dL Calcium (8.4-10.2) mg/dL Magnesium (1.6-2.3) mg/dL Total Bilirubin (0.2-1.3) mg/dL AST (14-36) U/L ALT (9-52) U/L Total Protein (6.3-8.2) g/dL Albumin (3.5-5.0) g/dL 10/17/17 10/17/17 10/17/17 Range/Units 04:33 04:33 07:17 RBC 2.94 L (3.80-5.40) m/uL Hgb 8.1 L (11.4-16.0) gm/dL Hct 26.3 L (34.0-46.0) % MCHC 30.9 L (31.0-37.0) g/dL RDW 16.7 H (11.5-15.5) % Plt Count 57 L (150-450) k/uL BUN 41 H (7-17) mg/dL POC Glucose (mg/dL) 106 H (75-99) mg/dL Calcium 8.3 L (8.4-10.2) mg/dL Magnesium 2.5 H (1.6-2.3) mg/dL Total Bilirubin 3.2 H (0.2-1.3) mg/dL AST 1811 H (14-36) U/L ALT 1259 H (9-52) U/L Total Protein 5.4 L (6.3-8.2) g/dL Albumin 3.4 L (3.5-5.0) g/dL Assessment and Plan Assessment: Postop day #4 status post aortic valve replacement for aortic insufficiency and mitral valve repair Postoperative respiratory failure as an expected outcome of postsurgical condition, recovered. History of rheumatoid arthritis History of CHF History of COPD Hypothyroidism History of diverticular disease History of urinary tract infection Anemia requiring a second unit of packed red blood cells. Acute drug-induced hepatitis, could be related to simvastatin could also be related to amiodarone or related to both. Presently both will be placed on hold , avoid hepatotoxic drugs, continue to monitor hepatic status on a daily basis. Recommendation: Continue present treatment plan, patient's clinical status is marginal at best, we'll continue to monitor in the ICU. Time with Patient: Less than 30
--- NOTE | 2017-10-17 12:17 | P.PN ---
Subjective Progress Note Date: 10/17/17 Principal diagnosis: Severe aortic insufficiency. Severe mitral regurgitation. History of systolic heart failure, COPD, rheumatoid arthritis, hypothyroidism, diverticulitis, recent urinary tract infection, and previous tobacco dependence. POD #4 aortic valve replacement with a #21 mm Magna Ease bioprosthetic aortic valve, mitral valve repair with a #28 mm CarboMedics annular flex band, clip ligation of left atrial appendage with a #35 mm AtriClip and intraoperative transesophageal echocardiogram Postoperative acute blood loss anemia, expected outcome of surgery. Postoperative paroxysmal atrial fibrillation, an expected outcome of surgery. Elevated liver enzymes, likely shock liver as a result of hypotension, and unexpected but potential outcome of surgery. Patient is currently sitting up in a recliner in no acute distress. Does state that it is painful to cough. Patient remains in uncontrolled atrial fibrillation despite bolus doses of amiodarone plus IV continuous. Blood pressure has been waxing and waning, typically systolic pressures in the 90s occasionally low 100s when awake, dropping down into the high 70s systolic when sleeping. Objective - Vital Signs Vital signs: Vital Signs Temp 98.7 F 10/17/17 08:00 Pulse 131 H 10/17/17 08:34 Resp 19 10/17/17 08:00 BP 97/48 10/17/17 08:00 Pulse Ox 97 10/17/17 08:19 Intake & Output 10/16/17 10/17/17 10/17/17 18:59 06:59 18:59 Intake Total 651.331 253 46 Output Total 2060 500 125 Balance -1408.669 -247 -79 Weight 65.1 kg 65.3 kg Intake: IV 253 253 46 0.9 NaCl pressure bag 33 33 6 Lactated Ringers 1,000 ml 220 220 40 @ 20 mls/hr IV .Q24H [facility] Rx#:[id number] Intake, IV Titration 278.331 Amount Amiodarone 450 mg In 278.331 Dextrose 5% in Water 250 ml @ 1 MG/MIN 33.33 mls/ hr IV .Q7H31M [facility] Rx#: [id number] Oral 120 Output: Chest Tube Drainage 130 70 60 Chest Tube Mediastinal 80 Left Pleural 50 70 60 Urine 1930 430 65 Other: Voiding Method Indwelling Catheter Indwelling Catheter # Bowel Movements 0 ABP, PAP, CO, CI - Last Documented Arterial Blood Pressure 102/53 Pulmonary Artery Pressure 29/9 Cardiac Output 4.5 Cardiac Index 3.1 - Constitutional General appearance: Present: cooperative, no acute distress - Respiratory Details: Lungs sounds diminished bilaterally with coarse breath sounds in bases. Respirations even, nonlabored. Currently on 5 L nasal cannula oxygen saturation 97%. Only able to achieve 250 mL on her incentive spirometer. Effective cough. Left pleural chest tube to -20 cm wall suction, 70 mL thin serosanguineous drainage overnight, 200 mL the last 24 hours. No air leak present. - Cardiovascular Details: S1, S2 present. Irregular, tachycardia rate and rhythm, uncontrolled atrial fibrillation on telemetry. Sternum stable. A/V epicardial pacemaker wires present, grounded. Palpable peripheral pulses bilaterally. No edema present. No calf pain or tenderness noted. Right internal jugular Cordis present. Heart hugger in place with patient demonstrating appropriate use. Antiembolism stockings, SCDs present. - Gastrointestinal Gastrointestinal Comment(s): Abdomen soft, nontender, nondistended. Active bowel sounds 4 quadrants. Tolerating clear liquids. Positive flatus, negative bowel movement. - Genitourinary Genitourinary Comment(s): Villegas present draining clear, yellow urine. Output 35-40 mL/h overnight. - Integumentary Integumentary Comment(s): Skin warm and dry with evidence of good perfusion. Anterior chest incision well approximated and covered with dry intact dressing. - Neurologic Neurologic: Present: CNII-XII intact - Musculoskeletal Musculoskeletal: Present: generalized weakness, strength equal bilaterally - Psychiatric Psychiatric: Present: A&O x's 3, appropriate affect, intact judgment & insight - Allied health notes Allied health notes reviewed: nursing - Labs CBC & Chem 7: 10/17/17 04:33 10/17/17 04:33 Labs: Abnormal Lab Results - Last 24 Hours (Table) 10/16/17 10/16/17 10/16/17 Range/Units 12:05 17:32 20:30 RBC (3.80-5.40) m/uL Hgb (11.4-16.0) gm/dL Hct (34.0-46.0) % MCHC (31.0-37.0) g/dL RDW (11.5-15.5) % Plt Count (150-450) k/uL BUN (7-17) mg/dL POC Glucose (mg/dL) 148 H 151 H 121 H (75-99) mg/dL Calcium (8.4-10.2) mg/dL Magnesium (1.6-2.3) mg/dL Total Bilirubin (0.2-1.3) mg/dL AST (14-36) U/L ALT (9-52) U/L Total Protein (6.3-8.2) g/dL Albumin (3.5-5.0) g/dL 10/17/17 10/17/17 10/17/17 Range/Units 04:33 04:33 07:17 RBC 2.94 L (3.80-5.40) m/uL Hgb 8.1 L (11.4-16.0) gm/dL Hct 26.3 L (34.0-46.0) % MCHC 30.9 L (31.0-37.0) g/dL RDW 16.7 H (11.5-15.5) % Plt Count 57 L (150-450) k/uL BUN 41 H (7-17) mg/dL POC Glucose (mg/dL) 106 H (75-99) mg/dL Calcium 8.3 L (8.4-10.2) mg/dL Magnesium 2.5 H (1.6-2.3) mg/dL Total Bilirubin 3.2 H (0.2-1.3) mg/dL AST 1811 H (14-36) U/L ALT 1259 H (9-52) U/L Total Protein 5.4 L (6.3-8.2) g/dL Albumin 3.4 L (3.5-5.0) g/dL - Imaging and Cardiology Chest x-ray: report reviewed, image reviewed Assessment and Plan (1) Tobacco dependence in remission Current Visit: No Status: Resolved Code(s): F17.201 - NICOTINE DEPENDENCE, UNSPECIFIED, IN REMISSION SNOMED Code(s): 951206171 (2) Acute blood loss anemia Current Visit: Yes Status: Acute Code(s): D62 - ACUTE POSTHEMORRHAGIC ANEMIA SNOMED Code(s): 290055989 (3) COPD (chronic obstructive pulmonary disease) Current Visit: Yes Status: Chronic Code(s): J44.9 - CHRONIC OBSTRUCTIVE PULMONARY DISEASE, UNSPECIFIED SNOMED Code(s): 80256329 (4) Systolic heart failure Current Visit: Yes Status: Chronic Code(s): I50.20 - UNSPECIFIED SYSTOLIC ( CONGESTIVE) HEART FAILURE SNOMED Code(s): 979241694 (5) Aortic insufficiency Current Visit: Yes Status: Chronic Code(s): I35.1 - NONRHEUMATIC AORTIC ( VALVE) INSUFFICIENCY SNOMED Code(s): 38731747 (6) Hypothyroid Current Visit: Yes Status: Chronic Code(s): E03.9 - HYPOTHYROIDISM, UNSPECIFIED SNOMED Code(s): 32278197 (7) Mitral regurgitation Current Visit: Yes Status: Chronic Code(s): I34.0 - NONRHEUMATIC MITRAL ( VALVE) INSUFFICIENCY SNOMED Code(s): 28163297 (8) Rheumatoid arthritis Current Visit: Yes Status: Chronic Code(s): M06.9 - RHEUMATOID ARTHRITIS, UNSPECIFIED SNOMED Code(s): 81653811 Plan: 1. Continue low-dose aspirin, Arixtra. Beta dion therapy discontinued as patient becomes hypotensive shortly after each dose given. Statin therapy on hold secondary to elevated liver enzymes 2. Continue amiodarone for A. fib prophylaxis. 3. Digoxin 500 g IV push ordered. Discontinue dopamine. If tachycardia continues will start Cardizem. 4. Lasix IV push ordered per pulmonology. Monitor blood pressure and urine output closely. 5. Wean O2 as tolerated, encourage incentive spirometry 10 times every hour. 6. Keep Villegas for 1 more day for strict accurate I and O. 7. HIT panel sent, results pending. 8. Increase activity, ambulate as able. PT/OT/cardiac rehab following. 9. Will keep chest tubes for 1 more day. 10. Insulin/diabetic management per primary care service. 11. Will monitor daily labs and x-rays. 12. GI/DVT prophylaxis. 13. More recommendations to follow. Time with Patient: Greater than 30
[2017-10-17] MEDS: ASCORBIC ACID 500 MG TAB PO SCH (12:42)
[2017-10-17] MEDS ORDERED: DIGOXIN 250 MCG/ML 2 ML AMP IVP ONE (15:11)
[2017-10-17] MEDS: LACTATED RINGERS 1,000 ML IV SCH (16:46)
[2017-10-17 17:07] LABS: Glucose,Whole Blood 104 mg/dL (75-99)
[2017-10-17 20:02] LABS: Glucose,Whole Blood 120 mg/dL (75-99)
[2017-10-17] MEDS: SENNOSIDES-DOCUSATE SODIUM 1 EACH TAB PO SCH (21:37)
[2017-10-18] MEDS: HYDROcodone/APAP 5-325MG 1 EACH TAB PO PRN ×2 (02:55→23:48)
[2017-10-18 04:58] LABS: Anisocytosis Slight; Basophils % (A) 0 %; Eosinophils # (A) 0.1 k/uL (0-0.7); Eosinophils % (A) 1 %; HCT 24.9 % (34.0-46.0); HGB 7.8 gm/dL (11.4-16.0); Hypochromasia Moderate; Lymphocytes # (A) 1.5 k/uL (1.0-4.8); Lymphocytes % (A) 20 %; MCH 27.8 pg (25.0-35.0); MCHC 31.1 g/dL (31.0-37.0); MCV 89.4 fL (80.0-100.0); Mean Platelet Volume 10.5; Monocytes # (A) 0.4 k/uL (0-1.0); Monocytes % (A) 5 %; Neutrophils # (A) 5.3 k/uL (1.3-7.7); Neutrophils % (A) 71 %; Platelet Count 60 k/uL (150-450); Poikilocytosis Slight; RBC 2.78 m/uL (3.80-5.40); WBC 7.5 k/uL (3.8-10.6)
[2017-10-18 05:13] LABS: Ionized Calcium 4.5 mg/dL (4.5-5.3)
[2017-10-18 05:19] LABS: Albumin 2.8 g/dL (3.5-5.0); Alkaline Phosphatase 93 U/L (38-126); Anion Gap 7 mmol/L; Blood Urea Nitrogen 30 mg/dL (7-17); Calcium 8.1 mg/dL (8.4-10.2); Carbon Dioxide 30 mmol/L (22-30); Chloride 102 mmol/L (98-107); Glucose 104 mg/dL (74-99); Magnesium 2.4 mg/dL (1.6-2.3); Potassium 3.5 mmol/L (3.5-5.1); Sodium 139 mmol/L (137-145); Total Bilirubin 2.6 mg/dL (0.2-1.3); Total Protein 5.1 g/dL (6.3-8.2)
[2017-10-18 05:49] LABS: ALT 1085 U/L (9-52); AST 1176 U/L (14-36)
[2017-10-18] MEDS ORDERED: POTASSIUM CHLORIDE ER 20 MEQ TAB.ER PO SCH (07:00)
[2017-10-18] MEDS: ALPRAZolam 0.25 MG TAB PO PRN ×3 (07:05→23:48)
[2017-10-18] MEDS: LEVOTHYROXINE 100 MCG TAB PO SCH (07:06)
--- NOTE | 2017-10-18 07:10 | XR ---
EXAMINATION TYPE: XR chest 1V portable DATE OF EXAM: 10/18/2017 HISTORY: post cardiac surgery. REFERENCE: Previous study dated 10/17/2017. FINDINGS: There is a right shoulder arthroplasty in place. There has been a midline sternotomy. The heart is enlarged. There is improved aeration of the right lung. There continues to be some left basilar airspace disease. There is blunting of both CP angles. I could not exclude small effusions. IMPRESSION: 1. CARDIOMEGALY. 2. IMPROVED AERATION, RIGHT LUNG BASE. 3. SMALL, BILATERAL EFFUSIONS.
[2017-10-18] MEDS: ASCORBIC ACID 500 MG TAB PO SCH (08:16)
[2017-10-18] MEDS: FONDAPARINUX 2.5 MG/0.5 ML SYRINGE SQ SCH (08:16)
[2017-10-18] MEDS: FERROUS SULFATE 325 MG TAB PO SCH ×2 (08:16→18:01)
[2017-10-18] MEDS: AMIODARONE 200 MG TAB PO SCH ×2 (08:16→20:21)
[2017-10-18] MEDS: PANTOPRAZOLE 40 MG TABLET PO SCH (08:17)
[2017-10-18] MEDS: ASPIRIN 81 MG PO SCH (08:17)
[2017-10-18 08:23] LABS: Glucose,Whole Blood 147 mg/dL (75-99)
[2017-10-18] MEDS: INSULIN ASPART 100 UNIT/ML 1 ML 10 ML VIAL SQ SCH ×4 (08:23→22:03)
[2017-10-18] MEDS: IPRATROPIUM-ALBUTEROL 3 ML NEB INHALATION SCH ×4 (09:29→20:13)
[2017-10-18] MEDS: IPRATROPIUM-ALBUTEROL 3 ML NEB INHALATION PRN (09:31)
[2017-10-18] MEDS ORDERED: FUROSEMIDE 10 MG/ML 2 ML VIAL IV ONE (10:32)
--- NOTE | 2017-10-18 10:53 | P.PN ---
Subjective Progress Note Date: 10/18/17 Principal diagnosis: Severe aortic insufficiency. Severe mitral regurgitation. History of systolic heart failure, COPD, rheumatoid arthritis, hypothyroidism, diverticulitis, recent urinary tract infection, and previous tobacco dependence. POD #5 aortic valve replacement with a #21 mm Magna Ease bioprosthetic aortic valve, mitral valve repair with a #28 mm CarboMedics annular flex band, clip ligation of left atrial appendage with a #35 mm AtriClip and intraoperative transesophageal echocardiogram Postoperative acute blood loss anemia, expected outcome of surgery. Postoperative paroxysmal atrial fibrillation, an expected outcome of surgery. Elevated liver enzymes, likely shock liver as a result of hypotension, and unexpected but potential outcome of surgery. Patient is currently sitting up in a recliner in no acute distress. Does state that it is painful to cough. Patient remains in controlled atrial flutter. Patient requires much encouragement to cough, deep breathe,move. Very resistant to necessary care. Objective - Vital Signs Vital signs: Vital Signs Temp 98.4 F 10/18/17 08:00 Pulse 75 10/18/17 10:00 Resp 18 10/18/17 10:00 BP 99/51 10/18/17 10:00 Pulse Ox 97 10/18/17 10:00 Intake & Output 10/17/17 10/18/17 10/18/17 18:59 06:59 18:59 Intake Total 276 299 189 Output Total 1180 540 100 Balance -904 -241 89 Weight 63.7 kg Intake: IV 276 299 69 0.9 NaCl pressure bag 36 39 9 Lactated Ringers 1,000 ml 240 260 60 @ 20 mls/hr IV .Q24H [facility] Rx#:[id number] Oral 120 Output: Chest Tube Drainage 120 Left Pleural 120 Urine 1060 540 100 Other: Voiding Method Indwelling Catheter Indwelling Catheter Indwelling Catheter ABP, PAP, CO, CI - Last Documented Arterial Blood Pressure 102/53 Pulmonary Artery Pressure 29/9 Cardiac Output 4.5 Cardiac Index 3.1 - Constitutional General appearance: Present: no acute distress - Respiratory Details: Lungs sounds diminished with coarse breath sounds in the bases, faint expiratory wheezes present. Respirations even, nonlabored. Was 92% on room air , patient requesting to keep her oxygen, 95% on 1 L nasal cannula. Only able to achieve 250 mL on her incentive spirometry. Effective cough. - Cardiovascular Details: S1, S2 present. Regular rate and rhythm, atrial flutter on telemetry. Sternum stable. A/V epicardial pacemaker wires present, grounded. Palpable peripheral pulses bilaterally. No edema present. No calf pain or tenderness noted. Right internal jugular Cordis present. Heart hugger in place with patient not using appropriately. SCDs present. - Gastrointestinal Gastrointestinal Comment(s): Abdomen soft, nontender, nondistended. Active bowel sounds 4 quadrants. Tolerating full liquids. - Genitourinary Genitourinary Comment(s): Villegas present draining clear, yellow urine. Output 30-45 mL per hour overnight. - Integumentary Integumentary Comment(s): Skin is warm and dry with evidence of good perfusion. Anterior chest incision well approximated and covered with dry intact dressing. - Neurologic Neurologic: Present: CNII-XII intact - Musculoskeletal Musculoskeletal: Present: generalized weakness, strength equal bilaterally - Psychiatric Psychiatric: Present: A&O x's 3, appropriate affect, intact judgment & insight - Allied health notes Allied health notes reviewed: nursing - Labs CBC & Chem 7: 10/18/17 04:46 10/18/17 04:46 Labs: Abnormal Lab Results - Last 24 Hours (Table) 10/17/17 10/17/17 10/17/17 Range/Units 11:58 17:04 20:00 RBC (3.80-5.40) m/uL Hgb (11.4-16.0) gm/dL Hct (34.0-46.0) % RDW (11.5-15.5) % Plt Count (150-450) k/uL BUN (7-17) mg/dL Creatinine (0.52-1.04) mg/dL Glucose (74-99) mg/dL POC Glucose (mg/dL) 106 H 104 H 120 H (75-99) mg/dL Calcium (8.4-10.2) mg/dL Magnesium (1.6-2.3) mg/dL Total Bilirubin (0.2-1.3) mg/dL AST (14-36) U/L ALT (9-52) U/L Total Protein (6.3-8.2) g/dL Albumin (3.5-5.0) g/dL 02/17/18 02/17/18 02/17/18 Range/Units 04:46 04:46 08:21 RBC 2.78 L (3.80-5.40) m/uL Hgb 7.8 L (11.4-16.0) gm/dL Hct 24.9 L (34.0-46.0) % RDW 17.0 H (11.5-15.5) % Plt Count 60 L (150-450) k/uL BUN 30 H (7-17) mg/dL Creatinine 0.50 L (0.52-1.04) mg/dL Glucose 104 H (74-99) mg/dL POC Glucose (mg/dL) 147 H (75-99) mg/dL Calcium 8.1 L (8.4-10.2) mg/dL Magnesium 2.4 H (1.6-2.3) mg/dL Total Bilirubin 2.6 H (0.2-1.3) mg/dL AST 1176 H (14-36) U/L ALT 1085 H (9-52) U/L Total Protein 5.1 L (6.3-8.2) g/dL Albumin 2.8 L (3.5-5.0) g/dL - Imaging and Cardiology Chest x-ray: report reviewed, image reviewed Assessment and Plan (1) Tobacco dependence in remission Current Visit: No Status: Resolved Code(s): F17.201 - NICOTINE DEPENDENCE, UNSPECIFIED, IN REMISSION SNOMED Code(s): 908210628 (2) Acute blood loss anemia Current Visit: Yes Status: Acute Code(s): D62 - ACUTE POSTHEMORRHAGIC ANEMIA SNOMED Code(s): 845738465 (3) COPD (chronic obstructive pulmonary disease) Current Visit: Yes Status: Chronic Code(s): J44.9 - CHRONIC OBSTRUCTIVE PULMONARY DISEASE, UNSPECIFIED SNOMED Code(s): 95959283 (4) Systolic heart failure Current Visit: Yes Status: Chronic Code(s): I50.20 - UNSPECIFIED SYSTOLIC ( CONGESTIVE) HEART FAILURE SNOMED Code(s): 169565355 (5) Aortic insufficiency Current Visit: Yes Status: Chronic Code(s): I35.1 - NONRHEUMATIC AORTIC ( VALVE) INSUFFICIENCY SNOMED Code(s): 04387276 (6) Hypothyroid Current Visit: Yes Status: Chronic Code(s): E03.9 - HYPOTHYROIDISM, UNSPECIFIED SNOMED Code(s): 14412234 (7) Mitral regurgitation Current Visit: Yes Status: Chronic Code(s): I34.0 - NONRHEUMATIC MITRAL ( VALVE) INSUFFICIENCY SNOMED Code(s): 79134811 (8) Rheumatoid arthritis Current Visit: Yes Status: Chronic Code(s): M06.9 - RHEUMATOID ARTHRITIS, UNSPECIFIED SNOMED Code(s): 07990781 Plan: 1. Continue low-dose aspirin, Arixtra. Beta dion therapy discontinued secondary to hypotension. Statin therapy on hold secondary to elevated liver enzymes. 2. Continue amiodarone for A. fib prophylaxis. Decrease dose to 400 mg by mouth twice a day. 3. Lasix 20 mg IV push ordered. 4. Wean O2 as tolerated, encourage incentive spirometry 10 times every hour. 5. Likely will discontinue Villegas catheter today. 6. HIT panel sent, negative. 7. Increase activity, ambulate as able. PT/OT/cardiac rehab following. 8. Blood sugar management per primary care service. 9. Will monitor daily labs and x-rays. 10. GI/DVT prophylaxis. 11. Likely will transfer to [facility] care later today. More recommendations to follow. Time with Patient: Greater than 30
[2017-10-18 12:24] LABS: Glucose,Whole Blood 183 mg/dL (75-99)
[2017-10-18] MEDS ORDERED: POTASSIUM BICARBONATE/CIT AC 20 MEQ TABLET.EFF PO ONE ×2 (12:24→13:30)
--- NOTE | 2017-10-18 12:39 | P.PN ---
Subjective Progress Note Date: 10/18/17 Principal diagnosis: Status post aortic valve replacement and mitral valve repair, postoperative day #5 The patient is seen again today in follow-up 10/15/2017 in the intensive care unit. She was successfully extubated. This is postoperative day #2 following aortic valve replacement and a mitral valve repair. She is currently sitting up in a chair at the bedside. She is maintaining O2 saturations in the 90s on 4 L/m per nasal cannula. She is working well with the incentive spirometer. Chest x-ray is revealing a sore atelectasis with small effusions. Stable in comparison. Chest tubes remain in place. She has an IV of lactated Ringer's at 20 miles per hour. She is on insulin drip at 0.5 units per hour. Her hemoglobin was 6.8. She is receiving a unit of packed red blood cells. Current temperature 99.8. No tachycardia, no tachypnea. Hemodynamically stable. White count 8.4. Hemoglobin 6.8. Platelet count 69,000. Creatinine 0.73. Patient was reevaluated today on 10/16/2017, remains off mechanical ventilation, she is postoperative day #3, on nasal cannula, in no distress. Patient is sitting in a bedside chair. Chest x-ray was reviewed and her CBC showed WBC count of 11.6 hemoglobin is 8.8 electrolytes are normal BUN is 42 creatinine is 1.0. Liver enzymes are noted to be elevated with AST of 547 ALT of 359, statin therapy is presently on hold because of elevated liver enzymes, the amiodarone may have to be switched to another form of ventilatory the medications because of the liver enzymes. That will be decided upon by cardiology on the case. Chest x-ray is showing small bilateral pleural effusions, and mild central venous congestion with atelectasis. Patient was reevaluated today on 10/17/2017, patient is now postoperative day # 4. Remains on nasal cannula, however the patient seems to be generally weak, frail, and doing very poorly with incentive spirometry. Her chest x-ray is showing some worsening atelectasis in the right lower lobe, and possibly some component of fluid overload. Her liver enzymes seem to be on the rise, most likely secondary to amiodarone, could also be related to intermittent episodes of hypotension. Or probably both. I think amiodarone is presently on hold by cardiology, the atrial fibrillation could be managed with digoxin and possibly Cardizem. Reevaluated today on 08/17/2018, patient is postoperative day #5. Remains on nasal cannula, remained generally weak, patient is extremely frail and fragile. Unable to do much of anything on her own. Her incentive spirometer he is extremely poor. Patient does not even cough unless requested, claims that it is too painful to cough. Patient is in atrial flutter, remains on amiodarone liver enzymes are still elevated but lower. Objective - Vital Signs Vital signs: Vital Signs Temp 98.4 F 10/18/17 08:00 Pulse 84 10/18/17 12:22 Resp 17 10/18/17 11:00 BP 105/42 10/18/17 11:00 Pulse Ox 97 10/18/17 11:00 Intake & Output 10/17/17 10/18/17 10/18/17 18:59 06:59 18:59 Intake Total 276 299 189 Output Total 1180 540 100 Balance -904 -241 89 Weight 63.7 kg Intake: IV 276 299 69 0.9 NaCl pressure bag 36 39 9 Lactated Ringers 1,000 ml 240 260 60 @ 20 mls/hr IV .Q24H [facility] Rx#:[id number] Oral 120 Output: Chest Tube Drainage 120 Left Pleural 120 Urine 1060 540 100 Other: Voiding Method Indwelling Catheter Indwelling Catheter Indwelling Catheter ABP, PAP, CO, CI - Last Documented Arterial Blood Pressure 102/53 Pulmonary Artery Pressure 29/9 Cardiac Output 4.5 Cardiac Index 3.1 - Exam GENERAL EXAM: Alert, fairly comfortable in no apparent distress. HEAD: Normocephalic. EYES: Normal reaction of pupils, equal size. NOSE: Clear with pink turbinates. THROAT: No erythema or exudates. NECK: No masses, no JVD. Hagaman-Elise catheter in place. CHEST: Surgical dressing dry and intact. Heart Hugger in place.. LUNGS: Equal air entry with crackles in the posterior bases.. CVS: S1 and S2 normal with no audible murmur, regular rhythm. ABDOMEN: No hepatosplenomegaly, normal bowel sounds, no guarding or rigidity. SPINE: No scoliosis or deformity SKIN: No rashes CENTRAL NERVOUS SYSTEM: No focal deficits, tone is normal in all 4 extremities. EXTREMITIES: Sequential compression devices in place. There is trace peripheral edema. No clubbing, no cyanosis. Peripheral pulses are intact. - Labs CBC & Chem 7: 10/18/17 04:46 10/18/17 11:16 Labs: Abnormal Lab Results - Last 24 Hours (Table) 10/17/17 10/17/17 10/18/17 Range/Units 17:04 20:00 04:46 RBC 2.78 L (3.80-5.40) m/uL Hgb 7.8 L (11.4-16.0) gm/dL Hct 24.9 L (34.0-46.0) % RDW 17.0 H (11.5-15.5) % Plt Count 60 L (150-450) k/uL BUN (7-17) mg/dL Creatinine (0.52-1.04) mg/dL Glucose (74-99) mg/dL POC Glucose (mg/dL) 104 H 120 H (75-99) mg/dL Calcium (8.4-10.2) mg/dL Magnesium (1.6-2.3) mg/dL Total Bilirubin (0.2-1.3) mg/dL AST (14-36) U/L ALT (9-52) U/L Total Protein (6.3-8.2) g/dL Albumin (3.5-5.0) g/dL 10/18/17 10/18/17 10/18/17 Range/Units 04:46 08:21 12:21 RBC (3.80-5.40) m/uL Hgb (11.4-16.0) gm/dL Hct (34.0-46.0) % RDW (11.5-15.5) % Plt Count (150-450) k/uL BUN 30 H (7-17) mg/dL Creatinine 0.50 L (0.52-1.04) mg/dL Glucose 104 H (74-99) mg/dL POC Glucose (mg/dL) 147 H 183 H (75-99) mg/dL Calcium 8.1 L (8.4-10.2) mg/dL Magnesium 2.4 H (1.6-2.3) mg/dL Total Bilirubin 2.6 H (0.2-1.3) mg/dL AST 1176 H (14-36) U/L ALT 1085 H (9-52) U/L Total Protein 5.1 L (6.3-8.2) g/dL Albumin 2.8 L (3.5-5.0) g/dL Assessment and Plan Assessment: Postop day #5 status post aortic valve replacement for aortic insufficiency and mitral valve repair Postoperative respiratory failure as an expected outcome of postsurgical condition, recovered. History of rheumatoid arthritis History of CHF History of COPD Hypothyroidism History of diverticular disease History of urinary tract infection Anemia requiring a second unit of packed red blood cells. Acute drug-induced hepatitis, could be related to simvastatin could also be related to amiodarone or related to both. Presently both will be placed on hold , avoid hepatotoxic drugs, continue to monitor hepatic status on a daily basis. Recommendation: Continue present treatment plan, patient's clinical status is marginal at best, we'll continue to monitor in the ICU. Time with Patient: Less than 30
--- NOTE | 2017-10-18 15:11 | PN ---
PROGRESS NOTE This is a lady who underwent aortic valve replacement and mitral valve repair performed by Dr. Rodriguez. She is 63 kg. She is on a high dose of amiodarone. Liver functions are abnormal. I am recommending that we decrease the amiodarone from 400 b.i.d. to 200 b.i.d. and add a small dose of Lopressor 25 mg b.i.d. She is hemodynamically stable. She is sitting up, trying to work with incentive spirometry. She remains in atrial flutter at a rate of about 100 beats per minute. JVD is 1 cm. S1, S2 heard normally. A short systolic murmur is audible. Lungs reveal diminished air entry. Abdomen and lower extremity exam is stable. Plan is to continue current medical regimen but decrease amiodarone in view of significant liver function abnormalities, and also add a small dose of beta dion and continue with incentive spirometry and pulmonary toilet. Prognosis remains good. MMODL / IJN: [id number] /
[2017-10-18] MEDS: METOPROLOL TARTRATE 25 MG TAB PO SCH (16:16)
[2017-10-18 17:24] LABS: Glucose,Whole Blood 188 mg/dL (75-99)
[2017-10-18] MEDS: SENNOSIDES-DOCUSATE SODIUM 1 EACH TAB PO SCH (20:21)
[2017-10-18] MEDS ORDERED: AMIODARONE 200 MG TAB PO SCH (21:00)
[2017-10-18 21:07] LABS: Glucose,Whole Blood 290 mg/dL (75-99)
[2017-10-19 02:19] LABS: Glucose,Whole Blood 103 mg/dL (75-99)
[2017-10-19 06:18] LABS: Glucose,Whole Blood 75 mg/dL (75-99)
[2017-10-19 06:53] LABS: Anisocytosis Slight; HCT 26.5 % (34.0-46.0); HGB 8.1 gm/dL (11.4-16.0); Hypochromasia Marked; MCH 27.8 pg (25.0-35.0); MCHC 30.3 g/dL (31.0-37.0); MCV 91.7 fL (80.0-100.0); Mean Platelet Volume 9.7; Poikilocytosis Slight; RBC 2.89 m/uL (3.80-5.40); RDW 16.9 % (11.5-15.5); WBC 9.8 k/uL (3.8-10.6)
[2017-10-19 06:55] LABS: Platelet Count 101 k/uL (150-450)
[2017-10-19] MEDS: FERROUS SULFATE 325 MG TAB PO SCH ×2 (07:01→16:46)
[2017-10-19] MEDS: PANTOPRAZOLE 40 MG TABLET PO SCH (07:01)
[2017-10-19] MEDS: INSULIN ASPART 100 UNIT/ML 1 ML 10 ML VIAL SQ SCH ×4 (07:01→21:03)
[2017-10-19] MEDS: LEVOTHYROXINE 100 MCG TAB PO SCH (07:01)
[2017-10-19 07:03] LABS: Albumin 2.9 g/dL (3.5-5.0); Alkaline Phosphatase 104 U/L (38-126); Blood Urea Nitrogen 27 mg/dL (7-17); Calcium 8.2 mg/dL (8.4-10.2); Carbon Dioxide 28 mmol/L (22-30); Glucose 74 mg/dL (74-99); Magnesium 2.2 mg/dL (1.6-2.3); Potassium 4.4 mmol/L (3.5-5.1); Sodium 140 mmol/L (137-145); Total Bilirubin 2.8 mg/dL (0.2-1.3); Total Protein 5.4 g/dL (6.3-8.2)
[2017-10-19 07:15] LABS: ALT 1092 U/L (9-52); AST 825 U/L (14-36); Anion Gap 11 mmol/L; Chloride 101 mmol/L (98-107)
--- NOTE | 2017-10-19 07:48 | XR ---
EXAMINATION TYPE: XR chest 2V DATE OF EXAM: 10/19/2017 HISTORY: post cardiac surgery. REFERENCE: Previous study dated 10/18/2017. FINDINGS: There is a right shoulder arthroplasty in place. There has been a midline sternotomy. The heart is enlarged. There continues to be atelectatic change in the right midlung. There is also r ight basilar atelectasis. I suspect small, bilateral effusions. IMPRESSION: SLIGHT IMPROVEMENT IN THE AERATION OF THE RIGHT LUNG.
[2017-10-19] MEDS: AMIODARONE 200 MG TAB PO SCH ×2 (08:25→21:08)
[2017-10-19] MEDS: METOPROLOL TARTRATE 25 MG TAB PO SCH ×2 (08:25→21:08)
[2017-10-19] MEDS: ASPIRIN 81 MG PO SCH (08:25)
[2017-10-19] MEDS: FONDAPARINUX 2.5 MG/0.5 ML SYRINGE SQ SCH (08:25)
[2017-10-19] MEDS: HYDROcodone/APAP 5-325MG 1 EACH TAB PO PRN (08:26)
[2017-10-19] MEDS: IPRATROPIUM-ALBUTEROL 3 ML NEB INHALATION SCH ×4 (08:34→19:53)
--- NOTE | 2017-10-19 10:00 | P.PN ---
Subjective Progress Note Date: 10/19/17 Principal diagnosis: Severe aortic insufficiency. Severe mitral regurgitation. History of systolic heart failure, COPD, rheumatoid arthritis, hypothyroidism, diverticulitis, recent urinary tract infection, and previous tobacco dependence. POD #6 aortic valve replacement with a #21 mm Magna Ease bioprosthetic aortic valve, mitral valve repair with a #28 mm CarboMedics annular flex band, clip ligation of left atrial appendage with a #35 mm AtriClip and intraoperative transesophageal echocardiogram Postoperative acute blood loss anemia, expected outcome of surgery. Postoperative paroxysmal atrial fibrillation, an expected outcome of surgery. Elevated liver enzymes, likely shock liver as a result of hypotension, and unexpected but potential outcome of surgery. Patient is currently sitting up in a recliner in no acute distress. Denies pain except when coughing. Requires much encouragement to cough, deep breathe, ambulate. Was transferred out of ICU to [address] [place] [address] last night. Has ambulated to and from the bathroom only. Objective - Vital Signs Vital signs: Vital Signs Temp 98.4 F 10/19/17 08:27 Pulse 80 10/19/17 08:27 Resp 16 10/19/17 08:27 BP 101/69 10/19/17 08:27 Pulse Ox 96 10/19/17 08:27 Intake & Output 10/18/17 10/19/17 10/19/17 18:59 06:59 18:59 Intake Total 401 600 Output Total 490 Balance -89 600 Weight 66.5 kg Intake: IV 161 0.9 NaCl pressure bag 21 Lactated Ringers 1,000 ml 140 @ 20 mls/hr IV .Q24H [facility] Rx#:[id number] Oral 240 600 Output: Urine 490 Other: Voiding Method Indwelling Catheter ABP, PAP, CO, CI - Last Documented Arterial Blood Pressure 102/53 Pulmonary Artery Pressure 29/9 Cardiac Output 4.5 Cardiac Index 3.1 - Constitutional General appearance: Present: cooperative, no acute distress - Respiratory Details: Lungs sounds diminished with coarse breath sounds in bilateral bases. Respirations even, nonlabored. Currently on room air with oxygen saturation 96% . Only able to achieve 250 mL on her incentive spirometry. Strong cough. - Cardiovascular Details: S1, S2 present. Irregular rate and rhythm, controlled atrial flutter on telemetry. Sternum stable. A/V epicardial pacemaker wires present, grounded. Palpable peripheral pulses bilaterally. Trace bilateral lower extremity edema present. No calf pain or tenderness noted. Heart hugger in place with patient demonstrating appropriate use. Antiembolism stockings, SCDs present. - Gastrointestinal Gastrointestinal Comment(s): Abdomen soft, nontender, nondistended. Active bowel sounds 4 quadrants. Tolerating diet. States she had a bowel movement this morning. - Genitourinary Genitourinary Comment(s): Villegas catheter discontinued yesterday. States she has voided. - Integumentary Integumentary Comment(s): Skin warm and dry with evidence of good perfusion. Anterior chest incision well approximated and covered with dry intact dressing. - Neurologic Neurologic: Present: CNII-XII intact - Musculoskeletal Musculoskeletal: Present: generalized weakness, strength equal bilaterally - Psychiatric Psychiatric: Present: A&O x's 3, appropriate affect, intact judgment & insight - Allied health notes Allied health notes reviewed: nursing - Labs CBC & Chem 7: 10/19/17 06:18 10/19/17 06:18 Labs: Abnormal Lab Results - Last 24 Hours (Table) 10/18/17 10/18/17 10/18/17 Range/Units 12:21 17:21 21:06 RBC (3.80-5.40) m/uL Hgb (11.4-16.0) gm/dL Hct (34.0-46.0) % MCHC (31.0-37.0) g/dL RDW (11.5-15.5) % Plt Count (150-450) k/uL BUN (7-17) mg/dL POC Glucose (mg/dL) 183 H 188 H 290 H (75-99) mg/dL Calcium (8.4-10.2) mg/dL Total Bilirubin (0.2-1.3) mg/dL AST (14-36) U/L ALT (9-52) U/L Total Protein (6.3-8.2) g/dL Albumin (3.5-5.0) g/dL 10/19/17 10/19/17 10/19/17 Range/Units 02:07 06:18 06:18 RBC 2.89 L (3.80-5.40) m/uL Hgb 8.1 L (11.4-16.0) gm/dL Hct 26.5 L (34.0-46.0) % MCHC 30.3 L (31.0-37.0) g/dL RDW 16.9 H (11.5-15.5) % Plt Count 101 L D (150-450) k/uL BUN 27 H (7-17) mg/dL POC Glucose (mg/dL) 103 H (75-99) mg/dL Calcium 8.2 L (8.4-10.2) mg/dL Total Bilirubin 2.8 H (0.2-1.3) mg/dL AST 825 H (14-36) U/L ALT 1092 H (9-52) U/L Total Protein 5.4 L (6.3-8.2) g/dL Albumin 2.9 L (3.5-5.0) g/dL - Imaging and Cardiology Chest x-ray: report reviewed, image reviewed Assessment and Plan (1) Tobacco dependence in remission Current Visit: No Status: Resolved Code(s): F17.201 - NICOTINE DEPENDENCE, UNSPECIFIED, IN REMISSION SNOMED Code(s): 544750158 (2) Acute blood loss anemia Current Visit: Yes Status: Acute Code(s): D62 - ACUTE POSTHEMORRHAGIC ANEMIA SNOMED Code(s): 374292998 (3) COPD (chronic obstructive pulmonary disease) Current Visit: Yes Status: Chronic Code(s): J44.9 - CHRONIC OBSTRUCTIVE PULMONARY DISEASE, UNSPECIFIED SNOMED Code(s): 66966853 (4) Systolic heart failure Current Visit: Yes Status: Chronic Code(s): I50.20 - UNSPECIFIED SYSTOLIC ( CONGESTIVE) HEART FAILURE SNOMED Code(s): 526368739 (5) Aortic insufficiency Current Visit: Yes Status: Chronic Code(s): I35.1 - NONRHEUMATIC AORTIC ( VALVE) INSUFFICIENCY SNOMED Code(s): 31488415 (6) Hypothyroid Current Visit: Yes Status: Chronic Code(s): E03.9 - HYPOTHYROIDISM, UNSPECIFIED SNOMED Code(s): 66569638 (7) Mitral regurgitation Current Visit: Yes Status: Chronic Code(s): I34.0 - NONRHEUMATIC MITRAL ( VALVE) INSUFFICIENCY SNOMED Code(s): 48009658 (8) Rheumatoid arthritis Current Visit: Yes Status: Chronic Code(s): M06.9 - RHEUMATOID ARTHRITIS, UNSPECIFIED SNOMED Code(s): 25132194 Plan: 1. Continue low-dose aspirin, Arixtra. Beta dion therapy discontinued secondary to hypotension. Statin therapy on hold secondary to elevated liver enzymes. 2. Continue amiodarone for A. fib prophylaxis. Decrease dose to 200 mg by mouth twice a day. 3. Encourage incentive spirometry 10 times every hour. 4. Likely will give IV Lasix today. 5. HIT panel sent, negative. 6. Increase activity, ambulate as able. PT/OT/cardiac rehab following. 7. Blood sugar management per primary care service. 8. Will monitor daily labs and x-rays. 9. GI/DVT prophylaxis. 10. More recommendations to follow. Patient will need subacute rehab at discharge. Time with Patient: Greater than 30
[2017-10-19] MEDS ORDERED: FUROSEMIDE 10 MG/ML 2 ML VIAL IV ONE (11:49)
[2017-10-19 12:14] LABS: Glucose,Whole Blood 203 mg/dL (75-99)
[2017-10-19] MEDS: ASCORBIC ACID 500 MG TAB PO SCH (12:14)
--- NOTE | 2017-10-19 13:35 | P.PN ---
Subjective Progress Note Date: 10/19/17 Principal diagnosis: Status post aortic valve replacement and mitral valve repair, postoperative day #5 The patient is seen again today in follow-up 10/15/2017 in the intensive care unit. She was successfully extubated. This is postoperative day #2 following aortic valve replacement and a mitral valve repair. She is currently sitting up in a chair at the bedside. She is maintaining O2 saturations in the 90s on 4 L/m per nasal cannula. She is working well with the incentive spirometer. Chest x-ray is revealing a sore atelectasis with small effusions. Stable in comparison. Chest tubes remain in place. She has an IV of lactated Ringer's at 20 miles per hour. She is on insulin drip at 0.5 units per hour. Her hemoglobin was 6.8. She is receiving a unit of packed red blood cells. Current temperature 99.8. No tachycardia, no tachypnea. Hemodynamically stable. White count 8.4. Hemoglobin 6.8. Platelet count 69,000. Creatinine 0.73. Patient was reevaluated today on 10/16/2017, remains off mechanical ventilation, she is postoperative day #3, on nasal cannula, in no distress. Patient is sitting in a bedside chair. Chest x-ray was reviewed and her CBC showed WBC count of 11.6 hemoglobin is 8.8 electrolytes are normal BUN is 42 creatinine is 1.0. Liver enzymes are noted to be elevated with AST of 547 ALT of 359, statin therapy is presently on hold because of elevated liver enzymes, the amiodarone may have to be switched to another form of ventilatory the medications because of the liver enzymes. That will be decided upon by cardiology on the case. Chest x-ray is showing small bilateral pleural effusions, and mild central venous congestion with atelectasis. Patient was reevaluated today on 10/17/2017, patient is now postoperative day # 4. Remains on nasal cannula, however the patient seems to be generally weak, frail, and doing very poorly with incentive spirometry. Her chest x-ray is showing some worsening atelectasis in the right lower lobe, and possibly some component of fluid overload. Her liver enzymes seem to be on the rise, most likely secondary to amiodarone, could also be related to intermittent episodes of hypotension. Or probably both. I think amiodarone is presently on hold by cardiology, the atrial fibrillation could be managed with digoxin and possibly Cardizem. Reevaluated today on 08/17/2018, patient is postoperative day #5. Remains on nasal cannula, remained generally weak, patient is extremely frail and fragile. Unable to do much of anything on her own. Her incentive spirometer he is extremely poor. Patient does not even cough unless requested, claims that it is too painful to cough. Patient is in atrial flutter, remains on amiodarone liver enzymes are still elevated but lower. Reevaluated today on 08/18/2018, patient is postoperative day #6, remains on nasal cannula, remains frail looking weak, exhausted, but not in respiratory distress. Lab work was reviewed hemoglobin is 8.1 basic metabolic profile is normal renal profile is normal liver enzymes seem to be improving slowly but steadily. Objective - Vital Signs Vital signs: Vital Signs Temp 98.4 F 10/19/17 08:27 Pulse 94 10/19/17 11:45 Resp 16 10/19/17 08:27 BP 101/69 10/19/17 08:27 Pulse Ox 96 10/19/17 08:27 Intake & Output 10/18/17 10/19/17 10/19/17 18:59 06:59 18:59 Intake Total 401 600 Output Total 490 Balance -89 600 Weight 66.5 kg Intake: IV 161 0.9 NaCl pressure bag 21 Lactated Ringers 1,000 ml 140 @ 20 mls/hr IV .Q24H [facility] Rx#:[id number] Oral 240 600 Output: Urine 490 Other: Voiding Method Indwelling Catheter ABP, PAP, CO, CI - Last Documented Arterial Blood Pressure 102/53 Pulmonary Artery Pressure 29/9 Cardiac Output 4.5 Cardiac Index 3.1 - Exam GENERAL EXAM: Alert, fairly comfortable in no apparent distress. HEAD: Normocephalic. EYES: Normal reaction of pupils, equal size. NOSE: Clear with pink turbinates. THROAT: No erythema or exudates. NECK: No masses, no JVD. [place]-Elise catheter in place. CHEST: Surgical dressing dry and intact. Heart Hugger in place.. LUNGS: Equal air entry with crackles in the posterior bases.. CVS: S1 and S2 normal with no audible murmur, regular rhythm. ABDOMEN: No hepatosplenomegaly, normal bowel sounds, no guarding or rigidity. SPINE: No scoliosis or deformity SKIN: No rashes CENTRAL NERVOUS SYSTEM: No focal deficits, tone is normal in all 4 extremities. EXTREMITIES: Sequential compression devices in place. There is trace peripheral edema. No clubbing, no cyanosis. Peripheral pulses are intact. - Labs CBC & Chem 7: 10/19/17 06:18 10/19/17 06:18 Labs: Abnormal Lab Results - Last 24 Hours (Table) 10/18/17 10/18/17 10/19/17 Range/Units 17:21 21:06 02:07 RBC (3.80-5.40) m/uL Hgb (11.4-16.0) gm/dL Hct (34.0-46.0) % MCHC (31.0-37.0) g/dL RDW (11.5-15.5) % Plt Count (150-450) k/uL BUN (7-17) mg/dL POC Glucose (mg/dL) 188 H 290 H 103 H (75-99) mg/dL Calcium (8.4-10.2) mg/dL Total Bilirubin (0.2-1.3) mg/dL AST (14-36) U/L ALT (9-52) U/L Total Protein (6.3-8.2) g/dL Albumin (3.5-5.0) g/dL 10/19/17 10/19/17 10/19/17 Range/Units 06:18 06:18 12:11 RBC 2.89 L (3.80-5.40) m/uL Hgb 8.1 L (11.4-16.0) gm/dL Hct 26.5 L (34.0-46.0) % MCHC 30.3 L (31.0-37.0) g/dL RDW 16.9 H (11.5-15.5) % Plt Count 101 L D (150-450) k/uL BUN 27 H (7-17) mg/dL POC Glucose (mg/dL) 203 H (75-99) mg/dL Calcium 8.2 L (8.4-10.2) mg/dL Total Bilirubin 2.8 H (0.2-1.3) mg/dL AST 825 H (14-36) U/L ALT 1092 H (9-52) U/L Total Protein 5.4 L (6.3-8.2) g/dL Albumin 2.9 L (3.5-5.0) g/dL Assessment and Plan Assessment: Postop day #6 status post aortic valve replacement for aortic insufficiency and mitral valve repair Postoperative respiratory failure as an expected outcome of postsurgical condition, recovered. History of rheumatoid arthritis History of CHF History of COPD Hypothyroidism History of diverticular disease History of urinary tract infection Anemia requiring a second unit of packed red blood cells. Acute drug-induced hepatitis, could be related to simvastatin could also be related to amiodarone or related to both. Presently both will be placed on hold , avoid hepatotoxic drugs, continue to monitor hepatic status on a daily basis. Recommendation: Continue present treatment plan, patient's clinical status is marginal at best, we'll continue to follow. Time with Patient: Less than 30
--- NOTE | 2017-10-19 16:52 | PN ---
PROGRESS NOTE This lady is status post aortic valve replacement and mitral valve repair, was in atrial flutter with a rapid rate. The rate is much better today. She is comfortable today. Resting and breathing easier, although she is not as motivated to do incentive spirometry. Her liver functions are also somewhat better. Vital signs stable, S1-S2 are heard normally, short systolic murmur noted. Lungs reveal improved air entry. Abdomen and lower exam unchanged. Plan is to continue incentive spirometry, pulmonary toilet today. MMODL / IJN: [id number] /
[2017-10-19 17:00] LABS: Glucose,Whole Blood 138 mg/dL (75-99)
[2017-10-19 20:48] LABS: Glucose,Whole Blood 161 mg/dL (75-99)
[2017-10-19] MEDS: ALPRAZolam 0.25 MG TAB PO PRN (21:05)
[2017-10-19] MEDS: ACETAMINOPHEN TAB 325 MG TAB PO PRN (21:05)
[2017-10-19] MEDS: SENNOSIDES-DOCUSATE SODIUM 1 EACH TAB PO SCH (21:17)
[2017-10-20 01:50] LABS: Glucose,Whole Blood 114 mg/dL (75-99)
[2017-10-20] MEDS: ACETAMINOPHEN TAB 325 MG TAB PO PRN ×2 (05:38→22:04)
[2017-10-20 05:54] LABS: Glucose,Whole Blood 115 mg/dL (75-99)
[2017-10-20 06:30] LABS: Anisocytosis Slight; HCT 26.7 % (34.0-46.0); Hypochromasia Marked; MCH 27.8 pg (25.0-35.0); MCV 92.8 fL (80.0-100.0); Mean Platelet Volume 9.2; Platelet Count 150 k/uL (150-450); Poikilocytosis Slight; RBC 2.87 m/uL (3.80-5.40); RDW 17.4 % (11.5-15.5); WBC 10.2 k/uL (3.8-10.6)
[2017-10-20 06:36] LABS: ALT 716 U/L (9-52); AST 257 U/L (14-36); Albumin 2.8 g/dL (3.5-5.0); Alkaline Phosphatase 93 U/L (38-126); Anion Gap 7 mmol/L; Blood Urea Nitrogen 26 mg/dL (7-17); Carbon Dioxide 32 mmol/L (22-30); Chloride 98 mmol/L (98-107); Glucose 95 mg/dL (74-99); Magnesium 2.2 mg/dL (1.6-2.3); Potassium 4.1 mmol/L (3.5-5.1); Sodium 137 mmol/L (137-145); Total Bilirubin 2.5 mg/dL (0.2-1.3); Total Protein 5.6 g/dL (6.3-8.2)
[2017-10-20] MEDS: LEVOTHYROXINE 100 MCG TAB PO SCH (06:41)
[2017-10-20] MEDS: FERROUS SULFATE 325 MG TAB PO SCH ×2 (06:41→16:53)
[2017-10-20] MEDS: INSULIN ASPART 100 UNIT/ML 1 ML 10 ML VIAL SQ SCH ×4 (06:42→21:50)
[2017-10-20] MEDS: PANTOPRAZOLE 40 MG TABLET PO SCH (06:42)
[2017-10-20] MEDS ORDERED: FUROSEMIDE 10 MG/ML 2 ML VIAL IV ONE (08:36)
--- NOTE | 2017-10-20 08:52 | P.PN ---
Subjective Progress Note Date: 10/20/17 Principal diagnosis: Severe aortic insufficiency. Severe mitral regurgitation. History of systolic heart failure, COPD, rheumatoid arthritis, hypothyroidism, diverticulitis, recent urinary tract infection, and previous tobacco dependence. POD #7 aortic valve replacement with a #21 mm Magna Ease bioprosthetic aortic valve, mitral valve repair with a #28 mm CarboMedics annular flex band, clip ligation of left atrial appendage with a #35 mm AtriClip and intraoperative transesophageal echocardiogram Postoperative acute blood loss anemia, expected outcome of surgery. Postoperative paroxysmal atrial fibrillation, an expected outcome of surgery. Elevated liver enzymes, likely shock liver as a result of hypotension, and unexpected but potential outcome of surgery. Patient is currently sitting up in bed in no acute distress. Denies pain except when coughing. Requires much encouragement to cough, deep breathe, ambulate. States she would prefer to go home versus rehab, however she is only able to ambulate to and from the bathroom at this point in time. Objective - Vital Signs Vital signs: Vital Signs Temp 97.2 F L 10/20/17 00:00 Pulse 69 10/20/17 04:00 Resp 10 L 10/20/17 04:00 BP 99/50 10/20/17 04:00 Pulse Ox 95 10/20/17 04:00 Intake & Output 10/19/17 10/20/17 10/20/17 18:59 06:59 18:59 Intake Total 236 Output Total 403 3 Balance -167 -3 Weight 66.5 kg Intake: Oral 236 Output: Urine 400 Stool 3 3 Other: Voiding Method Indwelling Catheter Indwelling Catheter # Voids 1 ABP, PAP, CO, CI - Last Documented Arterial Blood Pressure 102/53 Pulmonary Artery Pressure 29/9 Cardiac Output 4.5 Cardiac Index 3.1 - Constitutional General appearance: Present: cooperative, no acute distress - Respiratory Details: Lungs sounds diminished bilaterally. Respirations even, nonlabored. Currently on room air with oxygen saturation 95%. Only able to reach 250 mL on her incentive spirometry. Weak cough. - Cardiovascular Details: S1, S2 present. Regular rate and rhythm, sinus rhythm on telemetry. Sternum stable. A/V epicardial pacemaker wires present, grounded. Palpable peripheral pulses bilaterally. No edema present. No calf pain or tenderness noted. Heart hugger in place with patient occasionally demonstrating appropriate use. Antiembolism stockings, SCDs present. - Gastrointestinal Gastrointestinal Comment(s): Abdomen soft, nontender, nondistended. Active bowel sounds 4 quadrants. Tolerating diet. Positive bowel movement. - Genitourinary Genitourinary Comment(s): Continues to void clear, yellow urine. - Integumentary Integumentary Comment(s): Skin is warm and dry with evidence of good perfusion. Anterior chest incision well approximated and covered with dry intact dressing. - Neurologic Neurologic: Present: CNII-XII intact - Musculoskeletal Musculoskeletal: Present: generalized weakness - Psychiatric Psychiatric: Present: A&O x's 3, appropriate affect, intact judgment & insight - Allied health notes Allied health notes reviewed: nursing - Labs CBC & Chem 7: 10/20/17 05:59 10/20/17 05:59 Labs: Abnormal Lab Results - Last 24 Hours (Table) 10/19/17 10/19/17 10/19/17 Range/Units 12:11 16:57 20:45 RBC (3.80-5.40) m/uL Hgb (11.4-16.0) gm/dL Hct (34.0-46.0) % MCHC (31.0-37.0) g/dL RDW (11.5-15.5) % Carbon Dioxide (22-30) mmol/L BUN (7-17) mg/dL POC Glucose (mg/dL) 203 H 138 H 161 H (75-99) mg/dL Calcium (8.4-10.2) mg/dL Total Bilirubin (0.2-1.3) mg/dL AST (14-36) U/L ALT (9-52) U/L Total Protein (6.3-8.2) g/dL Albumin (3.5-5.0) g/dL 10/20/17 10/20/17 10/20/17 Range/Units 01:49 05:52 05:59 RBC 2.87 L (3.80-5.40) m/uL Hgb 8.0 L (11.4-16.0) gm/dL Hct 26.7 L (34.0-46.0) % MCHC 30.0 L (31.0-37.0) g/dL RDW 17.4 H (11.5-15.5) % Carbon Dioxide (22-30) mmol/L BUN (7-17) mg/dL POC Glucose (mg/dL) 114 H 115 H (75-99) mg/dL Calcium (8.4-10.2) mg/dL Total Bilirubin (0.2-1.3) mg/dL AST (14-36) U/L ALT (9-52) U/L Total Protein (6.3-8.2) g/dL Albumin (3.5-5.0) g/dL 10/20/17 Range/Units 05:59 RBC (3.80-5.40) m/uL Hgb (11.4-16.0) gm/dL Hct (34.0-46.0) % MCHC (31.0-37.0) g/dL RDW (11.5-15.5) % Carbon Dioxide 32 H (22-30) mmol/L BUN 26 H (7-17) mg/dL POC Glucose (mg/dL) (75-99) mg/dL Calcium 8.0 L (8.4-10.2) mg/dL Total Bilirubin 2.5 H (0.2-1.3) mg/dL AST 257 H (14-36) U/L ALT 716 H (9-52) U/L Total Protein 5.6 L (6.3-8.2) g/dL Albumin 2.8 L (3.5-5.0) g/dL - Imaging and Cardiology Chest x-ray: image reviewed Assessment and Plan (1) Tobacco dependence in remission Current Visit: No Status: Resolved Code(s): F17.201 - NICOTINE DEPENDENCE, UNSPECIFIED, IN REMISSION SNOMED Code(s): 093795559 (2) Acute blood loss anemia Current Visit: Yes Status: Acute Code(s): D62 - ACUTE POSTHEMORRHAGIC ANEMIA SNOMED Code(s): 719194306 (3) COPD (chronic obstructive pulmonary disease) Current Visit: Yes Status: Chronic Code(s): J44.9 - CHRONIC OBSTRUCTIVE PULMONARY DISEASE, UNSPECIFIED SNOMED Code(s): 16052987 (4) Systolic heart failure Current Visit: Yes Status: Chronic Code(s): I50.20 - UNSPECIFIED SYSTOLIC ( CONGESTIVE) HEART FAILURE SNOMED Code(s): 764454962 (5) Aortic insufficiency Current Visit: Yes Status: Chronic Code(s): I35.1 - NONRHEUMATIC AORTIC ( VALVE) INSUFFICIENCY SNOMED Code(s): 66655786 (6) Hypothyroid Current Visit: Yes Status: Chronic Code(s): E03.9 - HYPOTHYROIDISM, UNSPECIFIED SNOMED Code(s): 92339103 (7) Mitral regurgitation Current Visit: Yes Status: Chronic Code(s): I34.0 - NONRHEUMATIC MITRAL ( VALVE) INSUFFICIENCY SNOMED Code(s): 96226052 (8) Rheumatoid arthritis Current Visit: Yes Status: Chronic Code(s): M06.9 - RHEUMATOID ARTHRITIS, UNSPECIFIED SNOMED Code(s): 06252579 Plan: 1. Continue low-dose aspirin, Arixtra. Beta dion therapy discontinued secondary to hypotension. Statin therapy on hold secondary to elevated liver enzymes. 2. Continue amiodarone for A. fib prophylaxis. 3. Encourage incentive spirometry 10 times every hour. 4. Will give 20 mg IV Lasix today. 5. HIT panel sent, negative. 6. Increase activity, ambulate as able. PT/OT/cardiac rehab following. 7. Blood sugar management per primary care service. 8. Will monitor daily labs and x-rays. 9. GI/DVT prophylaxis. 10. Will discontinue pacemaker wires today. 10. Will start anticoagulation at discharge. 11. More recommendations to follow. Patient will need subacute rehab at discharge. Anticipate discharge in the next 24-48 hours. Time with Patient: Greater than 30
[2017-10-20] MEDS: IPRATROPIUM-ALBUTEROL 3 ML NEB INHALATION SCH ×4 (09:02→21:50)
--- NOTE | 2017-10-20 09:03 | XR ---
EXAMINATION TYPE: XR chest 2V DATE OF EXAM: 10/20/2017 COMPARISON: 10/19/2017 HISTORY: Post cardiac surgery FINDINGS: There are bilateral pleural effusions with cardiomegaly and bibasilar infiltrate. There is a diffuse interstitial pattern. Postoperative changes are seen. Calcified granuloma suspected. Arthropathy of the shoulders and previ ous right shoulder surgery noted. IMPRESSION: 1. Persistent prominent interstitial changes with bilateral infiltrate and small effusion correlate f or mild venous congestion. Underlying pneumonia not excluded.
[2017-10-20] MEDS: AMIODARONE 200 MG TAB PO SCH ×2 (10:53→21:51)
[2017-10-20] MEDS: FONDAPARINUX 2.5 MG/0.5 ML SYRINGE SQ SCH (10:53)
[2017-10-20] MEDS: METOPROLOL TARTRATE 25 MG TAB PO SCH ×2 (10:53→21:51)
[2017-10-20] MEDS: ASPIRIN 81 MG PO SCH (10:54)
[2017-10-20] MEDS: ASCORBIC ACID 500 MG TAB PO SCH (10:54)
--- NOTE | 2017-10-20 11:25 | P.PN ---
Subjective Progress Note Date: 10/20/17 This is a 72-year-old female with a known history aortic of severe aortic valve insufficiency and severe mitral regurgitation, congestive heart failure, rheumatoid arthritis, hypothyroidism, diverticulosis, and COPD. Initially patient underwent aortic valve replacement and mitral valve repair. She is currently intubated. Yesterday during a weaning trial she went into atrial fibrillation with rapid ventricular response. She also had an episode post operatively of A. fib and required cardioversion. Cardiothoracic surgeon has added amiodarone. Cardiology has been consulted. Patient's hemoglobin is 6.0 and platelets are 79. She did receive 1 unit of blood and is scheduled for a second unit today. She is also receiving fresh frozen plasma. Patient remains intubated and sedated. The planning to try another weaning trial today. We've been consulted for medical management. Currently on insulin drip for tight control of blood sugars postoperatively. Patient has no history of diabetes. 10/16/2017 patient sitting up in bedside chair. She is very weak and kind of hunched over. She had low urine outputs and was hypotensive dopamine added. Also was given Lasix and albumin. Urine output has improved. LFTs were noted to be elevated. Statin was discontinued and it also could be related to hypotension. 10/17/2017 patient has some elevation in her LFTs AST 1811 ALT 1259. Total bilirubin 3.5. She has been seen by GI service. They felt related to an ischemic hepatitis due to hypotension and amiodarone. The recommending to discontinue the amiodarone. Case discussed with GI service. Patient statin also discontinued. Patient sitting in bedside chair. Has one chest tube. On high flow 5 L satting at 100%. Hemoglobin 8.1 and platelets 56. Chest x-ray showing interval development of airspace disease correlate for pulmonary edema versus pneumonia. Patient was given 1 dose of IV Lasix per Dr. Man. Patient dopamine was discontinued today. She's been having atrial flutter. Cardiology ordered digoxin. Patient denies any chest pain shortness of breath. 10/20/2017 patient was transferred out of the ICU over the weekend. She sitting at bedside chair. She is weak. Reports that her pain is controlled. Denies any nausea or vomiting. Reports having bowel movements. Denies any difficulty urinating. She reports no previous history of diabetes. She is currently in sinus rhythm. Objective - Vital Signs Vital signs: Vital Signs Temp 96.9 F L 10/20/17 08:00 Pulse 82 10/20/17 09:20 Resp 18 10/20/17 08:00 BP 96/75 10/20/17 08:00 Pulse Ox 94 L 10/20/17 09:05 Intake & Output 10/19/17 10/20/17 10/20/17 18:59 06:59 18:59 Intake Total 236 200 Output Total 403 3 Balance -167 197 Weight 66.5 kg Intake: Oral 236 200 Output: Urine 400 Stool 3 3 Other: Voiding Method Indwelling Catheter Indwelling Catheter # Voids 1 ABP, PAP, CO, CI - Last Documented Arterial Blood Pressure 102/53 Pulmonary Artery Pressure 29/9 Cardiac Output 4.5 Cardiac Index 3.1 - Exam Head normocephalic Neck supple Lungs crackles at bases Heart regular rate and rhythm S1-S2, no rub or gallop Abdomen is soft nontender nondistended positive bowel sounds no hepatosplenomegaly Extremities no edema Neuro sleepy but able to answer questions - Labs CBC & Chem 7: 10/20/17 05:59 10/20/17 05:59 Labs: Abnormal Lab Results - Last 24 Hours (Table) 10/19/17 10/19/17 10/19/17 Range/Units 12:11 16:57 20:45 RBC (3.80-5.40) m/uL Hgb (11.4-16.0) gm/dL Hct (34.0-46.0) % MCHC (31.0-37.0) g/dL RDW (11.5-15.5) % Carbon Dioxide (22-30) mmol/L BUN (7-17) mg/dL POC Glucose (mg/dL) 203 H 138 H 161 H (75-99) mg/dL Calcium (8.4-10.2) mg/dL Total Bilirubin (0.2-1.3) mg/dL AST (14-36) U/L ALT (9-52) U/L Total Protein (6.3-8.2) g/dL Albumin (3.5-5.0) g/dL 10/20/17 10/20/17 10/20/17 Range/Units 01:49 05:52 05:59 RBC 2.87 L (3.80-5.40) m/uL Hgb 8.0 L (11.4-16.0) gm/dL Hct 26.7 L (34.0-46.0) % MCHC 30.0 L (31.0-37.0) g/dL RDW 17.4 H (11.5-15.5) % Carbon Dioxide (22-30) mmol/L BUN (7-17) mg/dL POC Glucose (mg/dL) 114 H 115 H (75-99) mg/dL Calcium (8.4-10.2) mg/dL Total Bilirubin (0.2-1.3) mg/dL AST (14-36) U/L ALT (9-52) U/L Total Protein (6.3-8.2) g/dL Albumin (3.5-5.0) g/dL 10/20/17 Range/Units 05:59 RBC (3.80-5.40) m/uL Hgb (11.4-16.0) gm/dL Hct (34.0-46.0) % MCHC (31.0-37.0) g/dL RDW (11.5-15.5) % Carbon Dioxide 32 H (22-30) mmol/L BUN 26 H (7-17) mg/dL POC Glucose (mg/dL) (75-99) mg/dL Calcium 8.0 L (8.4-10.2) mg/dL Total Bilirubin 2.5 H (0.2-1.3) mg/dL AST 257 H (14-36) U/L ALT 716 H (9-52) U/L Total Protein 5.6 L (6.3-8.2) g/dL Albumin 2.8 L (3.5-5.0) g/dL Assessment and Plan Assessment: 1. status post aortic valve replacement and mitral valve repair for severe aortic valve insufficiency and severe mitral valve stenosis 2. Episodes of paroxysmal atrial fibrillation with rapid ventricular response: Patient is currently in normal sinus rhythm. Cardiology following. 3. Expected acute blood loss anemia secondary to surgery. Patient has received blood transfusions. Hemoglobin is 8.1 4. Thrombocytopenia: Resolved. Hit screen was negative 5. Postop respiratory failure requiring mechanical ventilation with successful extubation 6. History of COPD 7. Hypothyroidism 8. Chronic systolic congestive heart failure with an EF of 40-45% 9. Rheumatoid arthritis 10. Hyperglycemia after surgery: Off of insulin drip and on Accu-Cheks. Check hemoglobin A1c 11. Acute on chronic systolic CHF exacerbation. Patient receiving another dose of IV Lasix today 12. Ischemic hepatitis: Likely related to hypotension and medications. Statin discontinued. Amiodarone dose was decreased. Evaluated by GI service. LFTs trending down DVT prophylaxis Arixtra Anticipating discharge to ECF for the next 24-48 hours I performed an examination of the patient and discussed their management with the physician [employer]. I have reviewed the Physician [employer] Advisor's notes and agree with the documented findings and plan of care
--- NOTE | 2017-10-20 11:32 | PN ---
PROGRESS NOTE Mrs San is status post aortic valve replacement and mitral valve repair. She has converted to sinus rhythm. She is looking better, but she seems unmotivated. Advised to do more with incentive spirometry with which she is only bringing up to 400 to 500 mL. Advised to work with incentive spirometry, pulmonary toilet. We will continue current medical regimen. S1-S2 heard normally. Short systolic murmur noted. Lungs reveal improved air entry. Abdomen lower exam unchanged. MMODL / IJN: [id number] /
[2017-10-20 11:34] LABS: Glucose,Whole Blood 173 mg/dL (75-99)
--- NOTE | 2017-10-20 12:00 | P.PN ---
Subjective Progress Note Date: 10/20/17 Principal diagnosis: Status post aortic valve replacement and mitral valve repair, postoperative day # 7 The patient is seen again today in follow-up 10/15/2017 in the intensive care unit. She was successfully extubated. This is postoperative day #2 following aortic valve replacement and a mitral valve repair. She is currently sitting up in a chair at the bedside. She is maintaining O2 saturations in the 90s on 4 L/m per nasal cannula. She is working well with the incentive spirometer. Chest x-ray is revealing a sore atelectasis with small effusions. Stable in comparison. Chest tubes remain in place. She has an IV of lactated Ringer's at 20 miles per hour. She is on insulin drip at 0.5 units per hour. Her hemoglobin was 6.8. She is receiving a unit of packed red blood cells. Current temperature 99.8. No tachycardia, no tachypnea. Hemodynamically stable. White count 8.4. Hemoglobin 6.8. Platelet count 69,000. Creatinine 0.73. Patient was reevaluated today on 10/16/2017, remains off mechanical ventilation, she is postoperative day #3, on nasal cannula, in no distress. Patient is sitting in a bedside chair. Chest x-ray was reviewed and her CBC showed WBC count of 11.6 hemoglobin is 8.8 electrolytes are normal BUN is 42 creatinine is 1.0. Liver enzymes are noted to be elevated with AST of 547 ALT of 359, statin therapy is presently on hold because of elevated liver enzymes, the amiodarone may have to be switched to another form of ventilatory the medications because of the liver enzymes. That will be decided upon by cardiology on the case. Chest x-ray is showing small bilateral pleural effusions, and mild central venous congestion with atelectasis. Patient was reevaluated today on 10/17/2017, patient is now postoperative day # 4. Remains on nasal cannula, however the patient seems to be generally weak, frail, and doing very poorly with incentive spirometry. Her chest x-ray is showing some worsening atelectasis in the right lower lobe, and possibly some component of fluid overload. Her liver enzymes seem to be on the rise, most likely secondary to amiodarone, could also be related to intermittent episodes of hypotension. Or probably both. I think amiodarone is presently on hold by cardiology, the atrial fibrillation could be managed with digoxin and possibly Cardizem. Reevaluated today on 08/17/2018, patient is postoperative day #5. Remains on nasal cannula, remained generally weak, patient is extremely frail and fragile. Unable to do much of anything on her own. Her incentive spirometer he is extremely poor. Patient does not even cough unless requested, claims that it is too painful to cough. Patient is in atrial flutter, remains on amiodarone liver enzymes are still elevated but lower. Reevaluated today on 08/18/2018, patient is postoperative day #6, remains on nasal cannula, remains frail looking weak, exhausted, but not in respiratory distress. Lab work was reviewed hemoglobin is 8.1 basic metabolic profile is normal renal profile is normal liver enzymes seem to be improving slowly but steadily. Patient was reevaluated today on 08/19/2018, she is postoperative day #7. Patient remains about the same, generally weak, frail looking, unable to do much on her own. Even noted to do poorly with incentive spirometry less than 200 on the spirometer. Denies any aches and pains, feels generally better today compared to how she felt over the last few days. Has to be encouraged to cough and has to be encouraged to use the incentive spirometer. Chest x-ray showed basilar atelectasis, and slight venous congestion. Objective - Vital Signs Vital signs: Vital Signs Temp 96.9 F L 10/20/17 08:00 Pulse 82 10/20/17 09:20 Resp 18 10/20/17 08:00 BP 96/75 10/20/17 08:00 Pulse Ox 94 L 10/20/17 09:05 Intake & Output 10/19/17 10/20/17 10/20/17 18:59 06:59 18:59 Intake Total 236 200 Output Total 403 3 Balance -167 197 Weight 66.5 kg Intake: Oral 236 200 Output: Urine 400 Stool 3 3 Other: Voiding Method Indwelling Catheter Indwelling Catheter # Voids 1 ABP, PAP, CO, CI - Last Documented Arterial Blood Pressure 102/53 Pulmonary Artery Pressure 29/9 Cardiac Output 4.5 Cardiac Index 3.1 - Exam GENERAL EXAM: Alert, fairly comfortable in no apparent distress. Presently on room air HEAD: Atraumatic, normocephalic. EYES: Normal reaction of pupils, equal size. NOSE: Clear with pink turbinates. THROAT: No erythema or exudates. NECK: No masses, no JVD. Forreston-Elise catheter in place. CHEST: Surgical dressing dry and intact. Heart Hugger in place.. LUNGS: Equal air entry with crackles in the posterior bases.. CVS: S1 and S2 normal with no audible murmur, regular rhythm. ABDOMEN: No hepatosplenomegaly, normal bowel sounds, no guarding or rigidity. SPINE: No scoliosis or deformity SKIN: No rashes CENTRAL NERVOUS SYSTEM: No focal deficits, tone is normal in all 4 extremities. EXTREMITIES: Sequential compression devices in place. There is trace peripheral edema. No clubbing, no cyanosis. Peripheral pulses are intact. - Labs CBC & Chem 7: 10/20/17 05:59 10/20/17 05:59 Labs: Abnormal Lab Results - Last 24 Hours (Table) 10/19/17 10/19/17 10/19/17 Range/Units 12:11 16:57 20:45 RBC (3.80-5.40) m/uL Hgb (11.4-16.0) gm/dL Hct (34.0-46.0) % MCHC (31.0-37.0) g/dL RDW (11.5-15.5) % Carbon Dioxide (22-30) mmol/L BUN (7-17) mg/dL POC Glucose (mg/dL) 203 H 138 H 161 H (75-99) mg/dL Calcium (8.4-10.2) mg/dL Total Bilirubin (0.2-1.3) mg/dL AST (14-36) U/L ALT (9-52) U/L Total Protein (6.3-8.2) g/dL Albumin (3.5-5.0) g/dL 10/20/17 10/20/17 10/20/17 Range/Units 01:49 05:52 05:59 RBC 2.87 L (3.80-5.40) m/uL Hgb 8.0 L (11.4-16.0) gm/dL Hct 26.7 L (34.0-46.0) % MCHC 30.0 L (31.0-37.0) g/dL RDW 17.4 H (11.5-15.5) % Carbon Dioxide (22-30) mmol/L BUN (7-17) mg/dL POC Glucose (mg/dL) 114 H 115 H (75-99) mg/dL Calcium (8.4-10.2) mg/dL Total Bilirubin (0.2-1.3) mg/dL AST (14-36) U/L ALT (9-52) U/L Total Protein (6.3-8.2) g/dL Albumin (3.5-5.0) g/dL 10/20/17 10/20/17 Range/Units 05:59 11:30 RBC (3.80-5.40) m/uL Hgb (11.4-16.0) gm/dL Hct (34.0-46.0) % MCHC (31.0-37.0) g/dL RDW (11.5-15.5) % Carbon Dioxide 32 H (22-30) mmol/L BUN 26 H (7-17) mg/dL POC Glucose (mg/dL) 173 H (75-99) mg/dL Calcium 8.0 L (8.4-10.2) mg/dL Total Bilirubin 2.5 H (0.2-1.3) mg/dL AST 257 H (14-36) U/L ALT 716 H (9-52) U/L Total Protein 5.6 L (6.3-8.2) g/dL Albumin 2.8 L (3.5-5.0) g/dL Assessment and Plan Assessment: Postop day #7 status post aortic valve replacement for aortic insufficiency and mitral valve repair Postoperative respiratory failure as an expected outcome of postsurgical condition, recovered. History of rheumatoid arthritis History of CHF History of COPD Hypothyroidism History of diverticular disease History of urinary tract infection Anemia requiring a second unit of packed red blood cells. Acute drug-induced hepatitis, improving, liver enzymes are significantly improved but remained quite elevated. could be related to simvastatin could also be related to amiodarone or related to both. Presently both will be placed on hold, avoid hepatotoxic drugs, continue to monitor hepatic status on a daily basis. Recommendation: Continue present treatment plan, consider rehab referral, I have a feeling the patient will not do well at home on her own, although she is insisting to go home rather than going to a rehab facility. Time with Patient: Less than 30
[2017-10-20 16:34] LABS: Glucose,Whole Blood 102 mg/dL (75-99)
[2017-10-20 17:32] LABS: Hemoglobin A1C 5.6 % (4.0-6.0)
[2017-10-20 21:30] LABS: Glucose,Whole Blood 116 mg/dL (75-99)
[2017-10-20] MEDS: SENNOSIDES-DOCUSATE SODIUM 1 EACH TAB PO SCH (21:51)
[2017-10-21 02:29] LABS: Glucose,Whole Blood 109 mg/dL (75-99)
[2017-10-21 06:05] LABS: Glucose,Whole Blood 116 mg/dL (75-99)
[2017-10-21 06:19] LABS: Anisocytosis Slight; HCT 27.1 % (34.0-46.0); Hypochromasia Marked; MCH 27.3 pg (25.0-35.0); MCHC 29.4 g/dL (31.0-37.0); MCV 92.8 fL (80.0-100.0); Mean Platelet Volume 8.6; Platelet Count 179 k/uL (150-450); Poikilocytosis Slight; RBC 2.92 m/uL (3.80-5.40); RDW 17.4 % (11.5-15.5); WBC 10.3 k/uL (3.8-10.6)
--- NOTE | 2017-10-21 06:26 | P.CONS ---
History of Present Illness - Chief Complaint Cardiac debility - History of Present Illness I had the opportunity to see patient for inpatient rehab consultation with regard to cardiac debility. She was admitted October 13 for aortic valve replacement and mitral valve repair. Seen in ICU by Dr. Doyle andZeb. Chest x-rays followed for persistent infiltrates and small effusion. PT reports minimal assistance for bed mobility and transfers. OT reports maximal assistance for upper/lower dressing, bathing, toileting. Previous functional history as elicited from patient: 72-year-old right-handed white female who is lives in a first-floor apartment with . Retired. generally does the cooking laundry and driving. Patient independent with sitdown shower and gait without device. History of smoking in the remote past. Occasional glass of wine. Dr. schaffer jar his regular doctor. Family history father with of MD. Review of Systems Review of systems: ENT: Denies sneezes or discharge. Eyes: Denies discharge or photophobia. Cardiac: Denies chest pain or palpitation. Pulmonary: Denies cough or shortness of breath. Breast: Denies discharge or lumps. Gastrointestinal: Denies nausea, emesis, constipation, diarrhea. Genitourinary: Denies discharge or frequency. Musculoskeletal: generalized aches and pains. Neurologic: At least mild generalized weakness. Endocrine: Denies shakes or sweats. Oncology: Denies cancers. Dermatologic: Denies rash, itching, pruritus. ALLERGY/immunology: Denies sneezes, rashes. Past Medical History Past Medical History: COPD, GERD/Reflux, Renal Disease, Rheumatoid Arthritis (RA ), Thyroid Disorder Additional Past Medical History / Comment(s): Nephrolithiasis, rheumatoid arthritis several joints, cardiac murmur. diverticular dx, recent UTI/ completed ABX. Episode of nonsustained ventricle tachycardia, SOB w/exertion History of Any Multi-Drug Resistant Organisms: None Reported Past Surgical History: Heart Catheterization, Hysterectomy, Joint Replacement, Orthopedic Surgery Additional Past Surgical History / Comment(s): Recent MATTHEW, ti total knees arthroplasty,lt hip arthroplasty, goiter removed 1962, partial thyroidectomy, cataracts removed with lens implants, REVERSE TOTAL RIGHT SHOULDER; Rotator cuff R shoulder, cervical fusion/injections, colonoscopy. Past Anesthesia/Blood Transfusion Reactions: No Reported Reaction Smoking Status: Former smoker - Past Family History Father Additional Family Medical History / Comment(s): in his 80's of a mi Mother Additional Family Medical History / Comment(s): age 88 in [facility] pt not sure what she from. hx smoking. Medications and Allergies Home Medications Medication Instructions Recorded Confirmed Type ALPRAZolam [Xanax] 0.25 mg PO Q8H PRN 01/22/14 10/13/17 History Ascorbic Acid [Vitamin C] 500 mg PO DAILY 01/22/14 10/13/17 History Cholecalciferol [Vitamin D3] 2,000 units PO DAILY 01/22/14 10/13/17 History Furosemide [Lasix] 20 mg PO DAILY 06/18/16 10/13/17 History Naproxen [Naprosyn] 500 mg PO Q12HR PRN 07/15/16 10/13/17 History Albuterol Sulfate [Proair Hfa] 1 - 2 puff INHALATION RT-Q6H PRN 09/15/17 History Fluticasone/Salmeterol [Advair Hfa 1 - 2 puff INHALATION RT-BID 09/15/17 History 230-21 Mcg Inhaler] HYDROcodone/APAP 10-325MG [[place] 1 tab PO Q6H PRN 09/15/17 10/13/17 History 10-325] Metoprolol Tartrate [Lopressor] 25 mg PO DAILY #30 tab 09/18/17 10/13/17 Rx Ipratropium/Albuterol Sulfate 1 puff INHALATION RT-QID PRN 09/29/17 10/13/17 History [Combivent Respimat Inhaler] Levothyroxine Sodium [Synthroid] 150 mcg PO DAILY 09/29/17 10/13/17 History Losartan [Cozaar] 12.5 mg PO DAILY 09/29/17 10/13/17 History Ferrous Sulfate [Iron (65 MG 325 mg PO DAILY 10/10/17 10/13/17 History Elemental)] Pantoprazole [Protonix] 40 mg PO DAILY PRN 10/10/17 10/13/17 History Aspirin 324 mg PO ONCE 10/13/17 10/13/17 History Allergies Allergy/AdvReac Type Severity Reaction Status Date / Time lisinopril Allergy Unknown Verified 10/13/17 06:23 Physical Exam Vitals: Vital Signs Temp Pulse Pulse Resp BP Pulse Ox 10/21/17 04:00 96.5 F L 72 16 99/55 93 L 10/21/17 00:00 97.9 F 68 16 90/51 94 L 10/20/17 20:00 98.4 F 68 16 108/57 95 10/20/17 15:39 97.9 F 73 18 96/47 95 10/20/17 13:10 80 10/20/17 12:59 74 10/20/17 11:00 98.1 F 81 18 100/52 96 10/20/17 09:20 82 10/20/17 09:05 76 94 L 10/20/17 08:00 96.9 F L 78 18 96/75 97 Intake and Output 10/20/17 10/20/17 10/21/17 14:59 22:59 06:59 Intake Total 50 118 Output Total 1 300 Balance 50 117 -300 Intake: Oral 50 118 Output: Urine 300 Stool 1 Other: Voiding Method Bedside Commode Bedpan # Voids 1 Skin: Atrophic, intact. General: Medium build and comfortable appearance. Head: Normocephalic, atraumatic. Eyes: Symmetric. Pupils equal round. Ears: Symmetric. Hearing within normal limits. Mouth: Clear. Neck: Supple. Carotid without bruit. Cardiac: Regular rate and rhythm. Clean and dressed. Wearing harness. Lungs: Clear anteriorly and posteriorly. Abdomen: Soft active nontender. Extremities: Normal tone. Neurological: Mental status: Alert, cooperative, pleasant. Cranial nerves: Symmetric facial tone and trapezius. Motor: Normal strength and isolation all 4 limbs. Sensation: Intact throughout. DTRs: Symmetric and equal throughout. Mobility: Sits with maximal assistance. Results CBC & Chem 7: 10/20/17 05:59 10/20/17 05:59 Labs: Abnormal Lab Results - Last 24 Hours (Table) 10/20/17 10/20/17 10/20/17 Range/Units 05:59 05:59 11:30 RBC 2.87 L (3.80-5.40) m/uL Hgb 8.0 L (11.4-16.0) gm/dL Hct 26.7 L (34.0-46.0) % MCHC 30.0 L (31.0-37.0) g/dL RDW 17.4 H (11.5-15.5) % Carbon Dioxide 32 H (22-30) mmol/L BUN 26 H (7-17) mg/dL POC Glucose (mg/dL) 173 H (75-99) mg/dL Calcium 8.0 L (8.4-10.2) mg/dL Total Bilirubin 2.5 H (0.2-1.3) mg/dL AST 257 H (14-36) U/L ALT 716 H (9-52) U/L Total Protein 5.6 L (6.3-8.2) g/dL Albumin 2.8 L (3.5-5.0) g/dL 10/20/17 10/20/17 10/21/17 Range/Units 16:30 21:28 02:27 RBC (3.80-5.40) m/uL Hgb (11.4-16.0) gm/dL Hct (34.0-46.0) % MCHC (31.0-37.0) g/dL RDW (11.5-15.5) % Carbon Dioxide (22-30) mmol/L BUN (7-17) mg/dL POC Glucose (mg/dL) 102 H 116 H 109 H (75-99) mg/dL Calcium (8.4-10.2) mg/dL Total Bilirubin (0.2-1.3) mg/dL AST (14-36) U/L ALT (9-52) U/L Total Protein (6.3-8.2) g/dL Albumin (3.5-5.0) g/dL 10/21/17 Range/Units 05:59 RBC (3.80-5.40) m/uL Hgb (11.4-16.0) gm/dL Hct (34.0-46.0) % MCHC (31.0-37.0) g/dL RDW (11.5-15.5) % Carbon Dioxide (22-30) mmol/L BUN (7-17) mg/dL POC Glucose (mg/dL) 116 H (75-99) mg/dL Calcium (8.4-10.2) mg/dL Total Bilirubin (0.2-1.3) mg/dL AST (14-36) U/L ALT (9-52) U/L Total Protein (6.3-8.2) g/dL Albumin (3.5-5.0) g/dL Chest x-ray: report reviewed (Chest x-rays followed for persistent infiltrate and small effusion.) Assessment and Plan (1) Mitral regurgitation Current Visit: Yes Status: Chronic Code(s): I34.0 - NONRHEUMATIC MITRAL ( VALVE) INSUFFICIENCY SNOMED Code(s): 60911082 Plan: Impression: 1. Cardiac debility. 2. Status post aortic valve replacement for mitral valve repair. 3. Systolic heart failure. 4. COPD. 5. Chronic kidney disease. 6. Rheumatoid arthritis. Comments and plan: At this time PT and OT are ongoing. Endurance issues noted. Unsure patient can handle full 3 hour program for inpatient rehab. Should begin to consider alternative discharge planning. Patient is hopefully at home but will require definite physical assistance on return to home.
[2017-10-21 06:31] LABS: ALT 470 U/L (9-52); AST 99 U/L (14-36); Albumin 2.8 g/dL (3.5-5.0); Alkaline Phosphatase 92 U/L (38-126); Anion Gap 7 mmol/L; Blood Urea Nitrogen 18 mg/dL (7-17); Calcium 8.2 mg/dL (8.4-10.2); Carbon Dioxide 32 mmol/L (22-30); Chloride 100 mmol/L (98-107); Glucose 96 mg/dL (74-99); Magnesium 2.2 mg/dL (1.6-2.3); Potassium 3.7 mmol/L (3.5-5.1); Sodium 139 mmol/L (137-145); Total Bilirubin 2.2 mg/dL (0.2-1.3); Total Protein 5.4 g/dL (6.3-8.2)
[2017-10-21] MEDS: LEVOTHYROXINE 100 MCG TAB PO SCH (06:53)
[2017-10-21] MEDS: PANTOPRAZOLE 40 MG TABLET PO SCH (06:53)
[2017-10-21] MEDS: FERROUS SULFATE 325 MG TAB PO SCH ×2 (06:53→17:12)
[2017-10-21] MEDS: INSULIN ASPART 100 UNIT/ML 1 ML 10 ML VIAL SQ SCH ×4 (06:54→21:27)
--- NOTE | 2017-10-21 08:37 | XR ---
EXAMINATION TYPE: XR chest 2V DATE OF EXAM: 10/21/2017 COMPARISON: Prior chest x-ray 10/20/2017 HISTORY: Post cardiac surgery TECHNIQUE: Frontal and lateral views of the chest are obtained. FINDINGS: Patient is post median sternotomy. The heart remains enlarged. Left atrial appendage clippi ng is noted. Interstitium remains somewhat increased however aeration is thought to be improved. No p neumothorax or sizable effusion. There are overlying cardiac leads. Minimal patchy basilar density pe rsists. IMPRESSION: Some improvement in aeration, volume status is thought likely.
[2017-10-21] MEDS: AMIODARONE 200 MG TAB PO SCH ×2 (08:39→21:27)
[2017-10-21] MEDS: ASPIRIN 81 MG PO SCH (08:40)
[2017-10-21] MEDS: METOPROLOL TARTRATE 25 MG TAB PO SCH ×2 (08:40→20:42)
[2017-10-21] MEDS: FONDAPARINUX 2.5 MG/0.5 ML SYRINGE SQ SCH (08:40)
[2017-10-21 09:20] LABS: ABG Base Excess 1.2 mmol/L; ABG HCO3 28 mmol/L (21-25); ABG PCO2 52 mmHg (35-45); ABG PH 7.34 (7.35-7.45); ABG PO2 249 mmHg (83-108); ABG Potassium Whole Blood 3.6 mmol/L (3.4-4.5); ABG Sodium Whole Blood 138 mmol/L (135-146); ABG TCO2 29 mmol/L (19-24)
[2017-10-21 09:21] LABS: ABG Base Excess 0.9 mmol/L; ABG HCO3 27 mmol/L (21-25); ABG Oxygen Saturation 99.9 % (94-97); ABG PCO2 52 mmHg (35-45); ABG PH 7.33 (7.35-7.45); ABG PO2 245 mmHg (83-108); ABG Potassium Whole Blood 3.6 mmol/L (3.4-4.5); ABG Sodium Whole Blood 138 mmol/L (135-146); ABG TCO2 29 mmol/L (19-24)
[2017-10-21 09:21] LABS: ABG Base Excess -1.4 mmol/L; ABG HCO3 24 mmol/L (21-25); ABG PCO2 40 mmHg (35-45); ABG PH 7.38 (7.35-7.45); ABG Potassium Whole Blood 3.3 mmol/L (3.4-4.5); ABG Sodium Whole Blood 133 mmol/L (135-146); ABG TCO2 25 mmol/L (19-24)
[2017-10-21 09:21] LABS: ABG Base Excess 1.8 mmol/L; ABG HCO3 26 mmol/L (21-25); ABG Oxygen Saturation 98.3 % (94-97); ABG PCO2 37 mmHg (35-45); ABG PH 7.45 (7.35-7.45); ABG PO2 94 mmHg (83-108); ABG Potassium Whole Blood 3.4 mmol/L (3.4-4.5); ABG Sodium Whole Blood 138 mmol/L (135-146); ABG TCO2 27 mmol/L (19-24)
[2017-10-21 09:22] LABS: ABG Base Excess -1.4 mmol/L; ABG HCO3 25 mmol/L (21-25); ABG PCO2 55 mmHg (35-45); ABG PH 7.28 (7.35-7.45); ABG PO2 307 mmHg (83-108); ABG Potassium Whole Blood 4.9 mmol/L (3.4-4.5); ABG Sodium Whole Blood 134 mmol/L (135-146); ABG TCO2 27 mmol/L (19-24)
[2017-10-21 09:22] LABS: ABG Base Excess -5.4 mmol/L; ABG HCO3 21 mmol/L (21-25); ABG Oxygen Saturation 99.9 % (94-97); ABG PCO2 44 mmHg (35-45); ABG PH 7.28 (7.35-7.45); ABG PO2 271 mmHg (83-108); ABG Potassium Whole Blood 4.6 mmol/L (3.4-4.5); ABG Sodium Whole Blood 136 mmol/L (135-146); ABG TCO2 22 mmol/L (19-24)
[2017-10-21 09:22] LABS: ABG Base Excess -1.4 mmol/L; ABG HCO3 24 mmol/L (21-25); ABG PCO2 44 mmHg (35-45); ABG PH 7.35 (7.35-7.45); ABG PO2 302 mmHg (83-108); ABG Potassium Whole Blood 4.7 mmol/L (3.4-4.5); ABG Sodium Whole Blood 135 mmol/L (135-146); ABG TCO2 26 mmol/L (19-24)
[2017-10-21 09:22] LABS: ABG Base Excess -1.1 mmol/L; ABG HCO3 26 mmol/L (21-25); ABG PCO2 52 mmHg (35-45); ABG PO2 322 mmHg (83-108); ABG Potassium Whole Blood 4.3 mmol/L (3.4-4.5); ABG Sodium Whole Blood 134 mmol/L (135-146); ABG TCO2 27 mmol/L (19-24)
[2017-10-21 09:23] LABS: ABG Base Excess -5.6 mmol/L; ABG HCO3 21 mmol/L (21-25); ABG Oxygen Saturation 99.9 % (94-97); ABG PCO2 44 mmHg (35-45); ABG PH 7.28 (7.35-7.45); ABG PO2 255 mmHg (83-108); ABG Potassium Whole Blood 4.6 mmol/L (3.4-4.5); ABG Sodium Whole Blood 137 mmol/L (135-146); ABG TCO2 22 mmol/L (19-24)
[2017-10-21 09:23] LABS: ABG Base Excess -2.3 mmol/L; ABG HCO3 23 mmol/L (21-25); ABG Oxygen Saturation 99.9 % (94-97); ABG PCO2 43 mmHg (35-45); ABG PH 7.34 (7.35-7.45); ABG PO2 197 mmHg (83-108); ABG Sodium Whole Blood 141 mmol/L (135-146); ABG TCO2 25 mmol/L (19-24)
[2017-10-21] MEDS: IPRATROPIUM-ALBUTEROL 3 ML NEB INHALATION SCH ×4 (09:28→18:47)
--- NOTE | 2017-10-21 09:39 | P.PN ---
Subjective Progress Note Date: 10/21/17 This is a 72-year-old female with a known history aortic of severe aortic valve insufficiency and severe mitral regurgitation, congestive heart failure, rheumatoid arthritis, hypothyroidism, diverticulosis, and COPD. Initially patient underwent aortic valve replacement and mitral valve repair. She is currently intubated. Yesterday during a weaning trial she went into atrial fibrillation with rapid ventricular response. She also had an episode post operatively of A. fib and required cardioversion. Cardiothoracic surgeon has added amiodarone. Cardiology has been consulted. Patient's hemoglobin is 6.0 and platelets are 79. She did receive 1 unit of blood and is scheduled for a second unit today. She is also receiving fresh frozen plasma. Patient remains intubated and sedated. The planning to try another weaning trial today. We've been consulted for medical management. Currently on insulin drip for tight control of blood sugars postoperatively. Patient has no history of diabetes. 10/16/2017 patient sitting up in bedside chair. She is very weak and kind of hunched over. She had low urine outputs and was hypotensive dopamine added. Also was given Lasix and albumin. Urine output has improved. LFTs were noted to be elevated. Statin was discontinued and it also could be related to hypotension. 10/17/2017 patient has some elevation in her LFTs AST 1811 ALT 1259. Total bilirubin 3.5. She has been seen by GI service. They felt related to an ischemic hepatitis due to hypotension and amiodarone. The recommending to discontinue the amiodarone. Case discussed with GI service. Patient statin also discontinued. Patient sitting in bedside chair. Has one chest tube. On high flow 5 L satting at 100%. Hemoglobin 8.1 and platelets 56. Chest x-ray showing interval development of airspace disease correlate for pulmonary edema versus pneumonia. Patient was given 1 dose of IV Lasix per Dr. Man. Patient dopamine was discontinued today. She's been having atrial flutter. Cardiology ordered digoxin. Patient denies any chest pain shortness of breath. 10/20/2017 patient was transferred out of the ICU over the weekend. She sitting at bedside chair. She is weak. Reports that her pain is controlled. Denies any nausea or vomiting. Reports having bowel movements. Denies any difficulty urinating. She reports no previous history of diabetes. She is currently in sinus rhythm. 10/21/2017 patient wants to go home. She does not want to go to rehab. Patient is been educated thoroughly that she is very weak and would benefit from rehabilitation. She was evaluated by Dr. Holden and is not candidate for inpatient rehab. Patient reports that her pain is controlled. She was able to ambulate in the echols in her room. Denies any chest pain or shortness of breath. Denies any nausea or vomiting. Reports having bowel movements. Denies any difficulty urinating. Objective - Vital Signs Vital signs: Vital Signs Temp 97 F L 10/21/17 08:00 Pulse 84 10/21/17 09:31 Resp 17 10/21/17 08:00 BP 112/50 10/21/17 08:00 Pulse Ox 94 L 10/21/17 08:00 Intake & Output 10/20/17 10/21/17 10/21/17 18:59 06:59 18:59 Intake Total 168 240 Output Total 301 Balance 168 -301 240 Weight 66 kg Intake: Oral 168 240 Output: Urine 300 Stool 1 Other: Voiding Method Bedpan # Voids 1 2 # Bowel Movements 1 ABP, PAP, CO, CI - Last Documented Arterial Blood Pressure 102/53 Pulmonary Artery Pressure 29/9 Cardiac Output 4.5 Cardiac Index 3.1 - Exam Head normocephalic Neck supple Lungs crackles at bases Heart regular rate and rhythm S1-S2, no rub or gallop Abdomen is soft nontender nondistended positive bowel sounds no hepatosplenomegaly Extremities no edema Neuro alert and orientated to 3. Sitting at bedside chair - Labs CBC & Chem 7: 10/21/17 05:56 10/21/17 05:56 Labs: Abnormal Lab Results - Last 24 Hours (Table) 10/13/17 10/20/17 10/20/17 Range/Units 09:55 11:30 16:30 RBC (3.80-5.40) m/uL Hgb (11.4-16.0) gm/dL Hct (34.0-46.0) % MCHC (31.0-37.0) g/dL RDW (11.5-15.5) % ABG pH 7.34 L (7.35-7.45) ABG pCO2 52 H (35-45) mmHg ABG pO2 249 H (83-108) mmHg ABG HCO3 28 H (21-25) mmol/L ABG Total CO2 29 H (19-24) mmol/L ABG O2 Saturation 100.0 H (94-97) % ABG Hematocrit 30 L (34.0-46.0) % ABG Glucose 126 H (75-99) mg/dL Hemoglobin 9.8 L (11.4-16.0) gm/dL Carbon Dioxide (22-30) mmol/L BUN (7-17) mg/dL POC Glucose (mg/dL) 173 H 102 H (75-99) mg/dL Calcium (8.4-10.2) mg/dL Total Bilirubin (0.2-1.3) mg/dL AST (14-36) U/L ALT (9-52) U/L Total Protein (6.3-8.2) g/dL Albumin (3.5-5.0) g/dL Arterial Blood Glucose 126 H (75-99) mg/dL 10/20/17 10/21/17 10/21/17 Range/Units 21:28 02:27 05:56 RBC 2.92 L (3.80-5.40) m/uL Hgb 8.0 L (11.4-16.0) gm/dL Hct 27.1 L (34.0-46.0) % MCHC 29.4 L (31.0-37.0) g/dL RDW 17.4 H (11.5-15.5) % ABG pH (7.35-7.45) ABG pCO2 (35-45) mmHg ABG pO2 (83-108) mmHg ABG HCO3 (21-25) mmol/L ABG Total CO2 (19-24) mmol/L ABG O2 Saturation (94-97) % ABG Hematocrit (34.0-46.0) % ABG Glucose (75-99) mg/dL Hemoglobin (11.4-16.0) gm/dL Carbon Dioxide (22-30) mmol/L BUN (7-17) mg/dL POC Glucose (mg/dL) 116 H 109 H (75-99) mg/dL Calcium (8.4-10.2) mg/dL Total Bilirubin (0.2-1.3) mg/dL AST (14-36) U/L ALT (9-52) U/L Total Protein (6.3-8.2) g/dL Albumin (3.5-5.0) g/dL Arterial Blood Glucose (75-99) mg/dL 10/21/17 10/21/17 Range/Units 05:56 05:59 RBC (3.80-5.40) m/uL Hgb (11.4-16.0) gm/dL Hct (34.0-46.0) % MCHC (31.0-37.0) g/dL RDW (11.5-15.5) % ABG pH (7.35-7.45) ABG pCO2 (35-45) mmHg ABG pO2 (83-108) mmHg ABG HCO3 (21-25) mmol/L ABG Total CO2 (19-24) mmol/L ABG O2 Saturation (94-97) % ABG Hematocrit (34.0-46.0) % ABG Glucose (75-99) mg/dL Hemoglobin (11.4-16.0) gm/dL Carbon Dioxide 32 H (22-30) mmol/L BUN 18 H (7-17) mg/dL POC Glucose (mg/dL) 116 H (75-99) mg/dL Calcium 8.2 L (8.4-10.2) mg/dL Total Bilirubin 2.2 H (0.2-1.3) mg/dL AST 99 H (14-36) U/L ALT 470 H (9-52) U/L Total Protein 5.4 L (6.3-8.2) g/dL Albumin 2.8 L (3.5-5.0) g/dL Arterial Blood Glucose (75-99) mg/dL Assessment and Plan Assessment: 1. status post aortic valve replacement and mitral valve repair for severe aortic valve insufficiency and severe mitral valve stenosis 2. Episodes of paroxysmal atrial fibrillation with rapid ventricular response: Patient is currently in normal sinus rhythm. Cardiology following. 3. Expected acute blood loss anemia secondary to surgery. Patient has received blood transfusions. Hemoglobin is 8.0 4. Thrombocytopenia: Resolved. Hit screen was negative 5. Postop respiratory failure requiring mechanical ventilation with successful extubation 6. History of COPD 7. Hypothyroidism 8. Chronic systolic congestive heart failure with an EF of 40-45% 9. Rheumatoid arthritis 10. Hyperglycemia after surgery: Off of insulin drip and on Accu-Cheks. Check hemoglobin A1c 11. Acute on chronic systolic CHF exacerbation. Improved with IV Lasix 12. Medication induced hepatitis: Statin discontinued. Amiodarone dose was decreased. Also episodes of hypotension could be contributing to elevated LFTs. Evaluated by GI service. LFTs trending down DVT prophylaxis [employer] Encouraged patient to go to [facility] for rehab. Patient is pretty adamant on going home after discharge. I performed an examination of the patient and discussed their management with the physician [employer]. I have reviewed the Physician [employer]'s notes and agree with the documented findings and plan of care
[2017-10-21 09:57] LABS: ABG PO2 >420 mmHg (83-108)
[2017-10-21] MEDS ORDERED: FUROSEMIDE 10 MG/ML 2 ML VIAL IV ONE (10:08)
[2017-10-21 11:34] LABS: Glucose,Whole Blood 147 mg/dL (75-99)
[2017-10-21 11:42] VITALS: RESP 16
[2017-10-21] MEDS: ASCORBIC ACID 500 MG TAB PO SCH (11:43)
[2017-10-21] MEDS: POTASSIUM CHLORIDE 10 MEQ in SODIUM CHLORIDE 0.9% 100 ML IVPB SCH ×2 (11:43→13:29)
--- NOTE | 2017-10-21 11:48 | P.PN ---
Subjective Progress Note Date: 10/21/17 Principal diagnosis: Severe aortic insufficiency, severe mitral regurgitation. Status post aortic valve replacement with a 21 mm magna ease bioprosthetic aortic valve, mitral valve repair with a #28 [employer] band. This is a 72-year-old female with a history of kidney stones rheumatoid arthritis COPD aortic stenosis UTI heart failure and hypothyroidism. She sees Dr. Rafael Vaughn at [facility]. He is her butcher all round. The patient was recently evaluated by the surgeons here and she is postop day #1 status post aortic valve replacement and mitral valve repair. The surgery was done by one of the cardiothoracic surgeons here and I did a preop evaluation. Currently, the patient is getting lactated Ringer's at 50 mL now her Primacor, propofol at 45 mics per kilogram per minute and insulin infusion at 3 units an hour. Last night, and attempt to wean her, she developed atrial fibrillation with some mild heart failure and nephrology blood-tinged sputum. She did have weaning parameters. The NIF was -25 rapid shallow breathing index was 77 respiratory was 25 tidal volume 331 vital capacity was 500 and minute volume of 7.1 L/m. The patient's vent settings are the SIMV mode rate of 20 tidal volume 350 FiO2 50% and PEEP of 5. The patient is receiving 2 units of PRBCs. Hopefully, later today she can be weaned. The patient is seen again today in follow-up 10/15/2017 in the intensive care unit. She was successfully extubated. This is postoperative day #2 following aortic valve replacement and a mitral valve repair. She is currently sitting up in a chair at the bedside. She is maintaining O2 saturations in the 90s on 4 L/m per nasal cannula. She is working well with the incentive spirometer. Chest x-ray is revealing a sore atelectasis with small effusions. Stable in comparison. Chest tubes remain in place. She has an IV of lactated Ringer's at 20 miles per hour. She is on insulin drip at 0.5 units per hour. Her hemoglobin was 6.8. She is receiving a unit of packed red blood cells. Current temperature 99.8. No tachycardia, no tachypnea. Hemodynamically stable. White count 8.4. Hemoglobin 6.8. Platelet count 69,000. Creatinine 0.73. Patient was reevaluated today on 10/16/2017, remains off mechanical ventilation, she is postoperative day #3, on nasal cannula, in no distress. Patient is sitting in a bedside chair. Chest x-ray was reviewed and her CBC showed WBC count of 11.6 hemoglobin is 8.8 electrolytes are normal BUN is 42 creatinine is 1.0. Liver enzymes are noted to be elevated with AST of 547 ALT of 359, statin therapy is presently on hold because of elevated liver enzymes, the amiodarone may have to be switched to another form of ventilatory the medications because of the liver enzymes. That will be decided upon by cardiology on the case. Chest x-ray is showing small bilateral pleural effusions, and mild central venous congestion with atelectasis. Patient was reevaluated today on 10/17/2017, patient is now postoperative day # 4. Remains on nasal cannula, however the patient seems to be generally weak, frail, and doing very poorly with incentive spirometry. Her chest x-ray is showing some worsening atelectasis in the right lower lobe, and possibly some component of fluid overload. Her liver enzymes seem to be on the rise, most likely secondary to amiodarone, could also be related to intermittent episodes of hypotension. Or probably both. I think amiodarone is presently on hold by cardiology, the atrial fibrillation could be managed with digoxin and possibly Cardizem. Reevaluated today on 10/18/2017, patient is postoperative day #5. Remains on nasal cannula, remained generally weak, patient is extremely frail and fragile. Unable to do much of anything on her own. Her incentive spirometer he is extremely poor. Patient does not even cough unless requested, claims that it is too painful to cough. Patient is in atrial flutter, remains on amiodarone liver enzymes are still elevated but lower. Reevaluated today on 10/19/2017, patient is postoperative day #6, remains on nasal cannula, remains frail looking weak, exhausted, but not in respiratory distress. Lab work was reviewed hemoglobin is 8.1 basic metabolic profile is normal renal profile is normal liver enzymes seem to be improving slowly but steadily. Patient was reevaluated today on 10/20/2017, she is postoperative day #7. Patient remains about the same, generally weak, frail looking, unable to do much on her own. Even noted to do poorly with incentive spirometry less than 200 on the spirometer. Denies any aches and pains, feels generally better today compared to how she felt over the last few days. Has to be encouraged to cough and has to be encouraged to use the incentive spirometer. Chest x-ray showed basilar atelectasis, and slight venous congestion. The patient is seen again today 10/21/2017 in follow-up on the selective care unit. This is postoperative day #8. She is currently sitting up in a chair at the bedside. She is awake and alert in no acute distress. She denies any worsening shortness of breath, cough or congestion. Chest x-ray reveals minimal basilar densities. Improved aeration. She is maintaining O2 saturations in the 90s on room air. No tachycardia, no tachypnea. She is afebrile. White count 10.3. Hemoglobin 8.0. Creatinine 0.54. AST 99, ALT 470. Improved. Objective - Vital Signs Vital signs: Vital Signs Temp 97 F L 10/21/17 08:00 Pulse 82 10/21/17 09:39 Resp 17 10/21/17 08:00 BP 112/50 10/21/17 08:00 Pulse Ox 94 L 10/21/17 08:00 Intake & Output 10/20/17 10/21/17 10/21/17 18:59 06:59 18:59 Intake Total 168 240 Output Total 301 Balance 168 -301 240 Weight 66 kg Intake: Oral 168 240 Output: Urine 300 Stool 1 Other: Voiding Method Bedpan # Voids 1 2 # Bowel Movements 1 ABP, PAP, CO, CI - Last Documented Arterial Blood Pressure 102/53 Pulmonary Artery Pressure 29/9 Cardiac Output 4.5 Cardiac Index 3.1 - Exam GENERAL EXAM: Alert, fairly comfortable in no apparent distress. HEAD: Normocephalic. EYES: Normal reaction of pupils, equal size. NOSE: Clear with pink turbinates. THROAT: No erythema or exudates. NECK: No masses, no JVD. CHEST: Surgical dressing dry and intact. Heart Hugger in place.. LUNGS: Equal air entry with crackles in the posterior bases.. CVS: S1 and S2 normal with no audible murmur, regular rhythm. ABDOMEN: No hepatosplenomegaly, normal bowel sounds, no guarding or rigidity. SPINE: No scoliosis or deformity SKIN: No rashes CENTRAL NERVOUS SYSTEM: No focal deficits, tone is normal in all 4 extremities. EXTREMITIES: Sequential compression devices in place. There is trace peripheral edema. No clubbing, no cyanosis. Peripheral pulses are intact. - Labs CBC & Chem 7: 10/21/17 05:56 10/21/17 05:56 Labs: Abnormal Lab Results - Last 24 Hours (Table) 10/13/17 10/13/17 10/13/17 Range/Units 09:55 09:57 10:34 RBC (3.80-5.40) m/uL Hgb (11.4-16.0) gm/dL Hct (34.0-46.0) % MCHC (31.0-37.0) g/dL RDW (11.5-15.5) % ABG pH 7.34 L 7.33 L (7.35-7.45) ABG pCO2 52 H 52 H (35-45) mmHg ABG pO2 249 H 245 H (83-108) mmHg ABG HCO3 28 H 27 H 26 H (21-25) mmol/L ABG Total CO2 29 H 29 H 27 H (19-24) mmol/L ABG O2 Saturation 100.0 H 99.9 H 98.3 H (94-97) % ABG Hematocrit 30 L 30 L 30 L (34.0-46.0) % ABG Sodium (135-146) mmol/L ABG Potassium (3.4-4.5) mmol/L ABG Ionized Calcium (4.5-5.3) mg/dL ABG Glucose 126 H 125 H 134 H (75-99) mg/dL ABG Lactic Acid (0.5-1.6) mmol/L Hemoglobin 9.8 L 9.8 L 9.7 L (11.4-16.0) gm/dL Carbon Dioxide (22-30) mmol/L BUN (7-17) mg/dL POC Glucose (mg/dL) (75-99) mg/dL Calcium (8.4-10.2) mg/dL Total Bilirubin (0.2-1.3) mg/dL AST (14-36) U/L ALT (9-52) U/L Total Protein (6.3-8.2) g/dL Albumin (3.5-5.0) g/dL Arterial Blood Potassium (3.4-4.5) mmol/L Arterial Blood Glucose 126 H 125 H 134 H (75-99) mg/dL 10/13/17 10/13/17 10/13/17 Range/Units 11:03 11:29 12:30 RBC (3.80-5.40) m/uL Hgb (11.4-16.0) gm/dL Hct (34.0-46.0) % MCHC (31.0-37.0) g/dL RDW (11.5-15.5) % ABG pH 7.30 L 7.28 L (7.35-7.45) ABG pCO2 52 H 55 H (35-45) mmHg ABG pO2 >420 H 322 H 307 H (83-108) mmHg ABG HCO3 26 H (21-25) mmol/L ABG Total CO2 25 H 27 H 27 H (19-24) mmol/L ABG O2 Saturation 100.0 H 100.0 H 100.0 H (94-97) % ABG Hematocrit 22 L 22 L 21 L (34.0-46.0) % ABG Sodium 133 L 134 L 134 L (135-146) mmol/L ABG Potassium 3.3 L 4.9 H (3.4-4.5) mmol/L ABG Ionized Calcium 4.1 L 4.3 L (4.5-5.3) mg/dL ABG Glucose 123 H 231 H 248 H (75-99) mg/dL ABG Lactic Acid (0.5-1.6) mmol/L Hemoglobin 7.2 L 7.2 L 6.9 L* (11.4-16.0) gm/dL Carbon Dioxide (22-30) mmol/L BUN (7-17) mg/dL POC Glucose (mg/dL) (75-99) mg/dL Calcium (8.4-10.2) mg/dL Total Bilirubin (0.2-1.3) mg/dL AST (14-36) U/L ALT (9-52) U/L Total Protein (6.3-8.2) g/dL Albumin (3.5-5.0) g/dL Arterial Blood Potassium 3.3 L 4.9 H (3.4-4.5) mmol/L Arterial Blood Glucose 123 H 231 H 248 H (75-99) mg/dL 10/13/17 10/13/1718 Range/Units 12:53 13:35 13:40 RBC (3.80-5.40) m/uL Hgb (11.4-16.0) gm/dL Hct (34.0-46.0) % MCHC (31.0-37.0) g/dL RDW (11.5-15.5) % ABG pH 7.28 L 7.28 L (7.35-7.45) ABG pCO2 (35-45) mmHg ABG pO2 302 H 271 H 255 H (83-108) mmHg ABG HCO3 (21-25) mmol/L ABG Total CO2 26 H (19-24) mmol/L ABG O2 Saturation 100.0 H 99.9 H 99.9 H (94-97) % ABG Hematocrit 23 L 23 L 23 L (34.0-46.0) % ABG Sodium (135-146) mmol/L ABG Potassium 4.7 H 4.6 H 4.6 H (3.4-4.5) mmol/L ABG Ionized Calcium 4.4 L 4.3 L 4.3 L (4.5-5.3) mg/dL ABG Glucose 216 H 207 H 208 H (75-99) mg/dL ABG Lactic Acid 2.9 H* 3.0 H* (0.5-1.6) mmol/L Hemoglobin 7.4 L 7.6 L 7.6 L (11.4-16.0) gm/dL Carbon Dioxide (22-30) mmol/L BUN (7-17) mg/dL POC Glucose (mg/dL) (75-99) mg/dL Calcium (8.4-10.2) mg/dL Total Bilirubin (0.2-1.3) mg/dL AST (14-36) U/L ALT (9-52) U/L Total Protein (6.3-8.2) g/dL Albumin (3.5-5.0) g/dL Arterial Blood Potassium 4.7 H 4.6 H 4.6 H (3.4-4.5) mmol/L Arterial Blood Glucose 216 H 207 H 208 H (75-99) mg/dL 10/13/17 10/20/17 10/20/17 Range/Units 15:05 16:30 21:28 RBC (3.80-5.40) m/uL Hgb (11.4-16.0) gm/dL Hct (34.0-46.0) % MCHC (31.0-37.0) g/dL RDW (11.5-15.5) % ABG pH 7.34 L (7.35-7.45) ABG pCO2 (35-45) mmHg ABG pO2 197 H (83-108) mmHg ABG HCO3 (21-25) mmol/L ABG Total CO2 25 H (19-24) mmol/L ABG O2 Saturation 99.9 H (94-97) % ABG Hematocrit 21 L (34.0-46.0) % ABG Sodium (135-146) mmol/L ABG Potassium (3.4-4.5) mmol/L ABG Ionized Calcium 3.8 L (4.5-5.3) mg/dL ABG Glucose 181 H (75-99) mg/dL ABG Lactic Acid (0.5-1.6) mmol/L Hemoglobin 6.9 L* (11.4-16.0) gm/dL Carbon Dioxide (22-30) mmol/L BUN (7-17) mg/dL POC Glucose (mg/dL) 102 H 116 H (75-99) mg/dL Calcium (8.4-10.2) mg/dL Total Bilirubin (0.2-1.3) mg/dL AST (14-36) U/L ALT (9-52) U/L Total Protein (6.3-8.2) g/dL Albumin (3.5-5.0) g/dL Arterial Blood Potassium (3.4-4.5) mmol/L Arterial Blood Glucose 181 H (75-99) mg/dL 10/21/17 10/21/17 10/21/17 Range/Units 02:27 05:56 05:56 RBC 2.92 L (3.80-5.40) m/uL Hgb 8.0 L (11.4-16.0) gm/dL Hct 27.1 L (34.0-46.0) % MCHC 29.4 L (31.0-37.0) g/dL RDW 17.4 H (11.5-15.5) % ABG pH (7.35-7.45) ABG pCO2 (35-45) mmHg ABG pO2 (83-108) mmHg ABG HCO3 (21-25) mmol/L ABG Total CO2 (19-24) mmol/L ABG O2 Saturation (94-97) % ABG Hematocrit (34.0-46.0) % ABG Sodium (135-146) mmol/L ABG Potassium (3.4-4.5) mmol/L ABG Ionized Calcium (4.5-5.3) mg/dL ABG Glucose (75-99) mg/dL ABG Lactic Acid (0.5-1.6) mmol/L Hemoglobin (11.4-16.0) gm/dL Carbon Dioxide 32 H (22-30) mmol/L BUN 18 H (7-17) mg/dL POC Glucose (mg/dL) 109 H (75-99) mg/dL Calcium 8.2 L (8.4-10.2) mg/dL Total Bilirubin 2.2 H (0.2-1.3) mg/dL AST 99 H (14-36) U/L ALT 470 H (9-52) U/L Total Protein 5.4 L (6.3-8.2) g/dL Albumin 2.8 L (3.5-5.0) g/dL Arterial Blood Potassium (3.4-4.5) mmol/L Arterial Blood Glucose (75-99) mg/dL 10/21/17 10/21/17 Range/Units 05:59 11:30 RBC (3.80-5.40) m/uL Hgb (11.4-16.0) gm/dL Hct (34.0-46.0) % MCHC (31.0-37.0) g/dL RDW (11.5-15.5) % ABG pH (7.35-7.45) ABG pCO2 (35-45) mmHg ABG pO2 (83-108) mmHg ABG HCO3 (21-25) mmol/L ABG Total CO2 (19-24) mmol/L ABG O2 Saturation (94-97) % ABG Hematocrit (34.0-46.0) % ABG Sodium (135-146) mmol/L ABG Potassium (3.4-4.5) mmol/L ABG Ionized Calcium (4.5-5.3) mg/dL ABG Glucose (75-99) mg/dL ABG Lactic Acid (0.5-1.6) mmol/L Hemoglobin (11.4-16.0) gm/dL Carbon Dioxide (22-30) mmol/L BUN (7-17) mg/dL POC Glucose (mg/dL) 116 H 147 H (75-99) mg/dL Calcium (8.4-10.2) mg/dL Total Bilirubin (0.2-1.3) mg/dL AST (14-36) U/L ALT (9-52) U/L Total Protein (6.3-8.2) g/dL Albumin (3.5-5.0) g/dL Arterial Blood Potassium (3.4-4.5) mmol/L Arterial Blood Glucose (75-99) mg/dL Assessment and Plan Assessment: Assessment Postop day #8 status post aortic valve replacement and mitral valve repair Postoperative respiratory failure as an expected outcome of postsurgical condition, recovered. History of rheumatoid arthritis History of CHF History of COPD Hypothyroidism History of diverticular disease History of urinary tract infection Anemia requiring a second unit of packed red blood cells. Plan: The patient was seen and evaluated by Dr. Man. Her chest x-ray and labs were reviewed. She is again encouraged regarding the increased use of the incentive spirometer. Continue bronchodilators 4 times a day and when necessary. Will increase her activity as tolerated. She has been slow to progress. We'll continue to follow. I, the cosigning physician, performed a history & physical examination of the patient. Lungs sounds crackles in the bilateral posterior bases. Maintaining good O2 saturations in the 90s on room air. I discussed the assessment and plan of care with my nurse practitioner, Laverne Caal. I attest to the above note as dictated by her.
--- NOTE | 2017-10-21 11:56 | P.PN ---
Subjective Progress Note Date: 10/21/17 This is 72-year-old female with history of rheumatoid arthritis, aortic insufficiency severe mitral regurgitation for which she underwent aortic valve replacement and mitral valve repair. In the intensive care unit patient was having atrial flutter and atrial fibrillation, currently not on anticoagulation. She was seen and examined this morning, sitting up in the chair, feeling much better overall. Let pressure 100/50, heart rate in the 70s. Liver function tests continue to improve. We will decrease her dose of amiodarone to 200 mg daily today. Objective - Vital Signs Vital signs: Vital Signs Temp 97 F L 10/21/17 08:00 Pulse 72 10/21/17 11:42 Resp 16 10/21/17 11:42 BP 100/54 10/21/17 11:42 Pulse Ox 94 L 10/21/17 11:42 Intake & Output 10/20/17 10/21/17 10/21/17 18:59 06:59 18:59 Intake Total 168 240 Output Total 301 Balance 168 -301 240 Weight 66 kg Intake: Oral 168 240 Output: Urine 300 Stool 1 Other: Voiding Method Bedpan # Voids 1 2 # Bowel Movements 1 ABP, PAP, CO, CI - Last Documented Arterial Blood Pressure 102/53 Pulmonary Artery Pressure 29/9 Cardiac Output 4.5 Cardiac Index 3.1 - Exam GENERAL EXAM: Alert, fairly comfortable in no apparent distress. HEAD: Normocephalic. EYES: Normal reaction of pupils, equal size. NOSE: Clear with pink turbinates. THROAT: No erythema or exudates. NECK: No masses, no JVD. CHEST: Surgical dressing dry and intact. Heart Hugger in place.. LUNGS: Equal air entry with crackles in the posterior bases.. CVS: S1 and S2 normal with no audible murmur, regular rhythm. ABDOMEN: No hepatosplenomegaly, normal bowel sounds, no guarding or rigidity. SPINE: No scoliosis or deformity SKIN: No rashes CENTRAL NERVOUS SYSTEM: No focal deficits, tone is normal in all 4 extremities. EXTREMITIES: Sequential compression devices in place. There is trace peripheral edema. No clubbing, no cyanosis. Peripheral pulses are intact. - Labs CBC & Chem 7: 10/21/17 05:56 10/21/17 05:56 Labs: Abnormal Lab Results - Last 24 Hours (Table) 10/13/17 10/13/17 10/13/17 Range/Units 09:55 09:57 10:34 RBC (3.80-5.40) m/uL Hgb (11.4-16.0) gm/dL Hct (34.0-46.0) % MCHC (31.0-37.0) g/dL RDW (11.5-15.5) % ABG pH 7.34 L 7.33 L (7.35-7.45) ABG pCO2 52 H 52 H (35-45) mmHg ABG pO2 249 H 245 H (83-108) mmHg ABG HCO3 28 H 27 H 26 H (21-25) mmol/L ABG Total CO2 29 H 29 H 27 H (19-24) mmol/L ABG O2 Saturation 100.0 H 99.9 H 98.3 H (94-97) % ABG Hematocrit 30 L 30 L 30 L (34.0-46.0) % ABG Sodium (135-146) mmol/L ABG Potassium (3.4-4.5) mmol/L ABG Ionized Calcium (4.5-5.3) mg/dL ABG Glucose 126 H 125 H 134 H (75-99) mg/dL ABG Lactic Acid (0.5-1.6) mmol/L Hemoglobin 9.8 L 9.8 L 9.7 L (11.4-16.0) gm/dL Carbon Dioxide (22-30) mmol/L BUN (7-17) mg/dL POC Glucose (mg/dL) (75-99) mg/dL Calcium (8.4-10.2) mg/dL Total Bilirubin (0.2-1.3) mg/dL AST (14-36) U/L ALT (9-52) U/L Total Protein (6.3-8.2) g/dL Albumin (3.5-5.0) g/dL Arterial Blood Potassium (3.4-4.5) mmol/L Arterial Blood Glucose 126 H 125 H 134 H (75-99) mg/dL 10/13/17 10/13/17 10/13/17 Range/Units 11:03 11:29 12:30 RBC (3.80-5.40) m/uL Hgb (11.4-16.0) gm/dL Hct (34.0-46.0) % MCHC (31.0-37.0) g/dL RDW (11.5-15.5) % ABG pH 7.30 L 7.28 L (7.35-7.45) ABG pCO2 52 H 55 H (35-45) mmHg ABG pO2 >420 H 322 H 307 H (83-108) mmHg ABG HCO3 26 H (21-25) mmol/L ABG Total CO2 25 H 27 H 27 H (19-24) mmol/L ABG O2 Saturation 100.0 H 100.0 H 100.0 H (94-97) % ABG Hematocrit 22 L 22 L 21 L (34.0-46.0) % ABG Sodium 133 L 134 L 134 L (135-146) mmol/L ABG Potassium 3.3 L 4.9 H (3.4-4.5) mmol/L ABG Ionized Calcium 4.1 L 4.3 L (4.5-5.3) mg/dL ABG Glucose 123 H 231 H 248 H (75-99) mg/dL ABG Lactic Acid (0.5-1.6) mmol/L Hemoglobin 7.2 L 7.2 L 6.9 L* (11.4-16.0) gm/dL Carbon Dioxide (22-30) mmol/L BUN (7-17) mg/dL POC Glucose (mg/dL) (75-99) mg/dL Calcium (8.4-10.2) mg/dL Total Bilirubin (0.2-1.3) mg/dL AST (14-36) U/L ALT (9-52) U/L Total Protein (6.3-8.2) g/dL Albumin (3.5-5.0) g/dL Arterial Blood Potassium 3.3 L 4.9 H (3.4-4.5) mmol/L Arterial Blood Glucose 123 H 231 H 248 H (75-99) mg/dL 10/13/17 10/13/17 10/13/17 Range/Units 12:53 13:35 13:40 RBC (3.80-5.40) m/uL Hgb (11.4-16.0) gm/dL Hct (34.0-46.0) % MCHC (31.0-37.0) g/dL RDW (11.5-15.5) % ABG pH 7.28 L 7.28 L (7.35-7.45) ABG pCO2 (35-45) mmHg ABG pO2 302 H 271 H 255 H (83-108) mmHg ABG HCO3 (21-25) mmol/L ABG Total CO2 26 H (19-24) mmol/L ABG O2 Saturation 100.0 H 99.9 H 99.9 H (94-97) % ABG Hematocrit 23 L 23 L 23 L (34.0-46.0) % ABG Sodium (135-146) mmol/L ABG Potassium 4.7 H 4.6 H 4.6 H (3.4-4.5) mmol/L ABG Ionized Calcium 4.4 L 4.3 L 4.3 L (4.5-5.3) mg/dL ABG Glucose 216 H 207 H 208 H (75-99) mg/dL ABG Lactic Acid 2.9 H* 3.0 H* (0.5-1.6) mmol/L Hemoglobin 7.4 L 7.6 L 7.6 L (11.4-16.0) gm/dL Carbon Dioxide (22-30) mmol/L BUN (7-17) mg/dL POC Glucose (mg/dL) (75-99) mg/dL Calcium (8.4-10.2) mg/dL Total Bilirubin (0.2-1.3) mg/dL AST (14-36) U/L ALT (9-52) U/L Total Protein (6.3-8.2) g/dL Albumin (3.5-5.0) g/dL Arterial Blood Potassium 4.7 H 4.6 H 4.6 H (3.4-4.5) mmol/L Arterial Blood Glucose 216 H 207 H 208 H (75-99) mg/dL 10/13/17 10/20/17 10/20/17 Range/Units 15:05 16:30 21:28 RBC (3.80-5.40) m/uL Hgb (11.4-16.0) gm/dL Hct (34.0-46.0) % MCHC (31.0-37.0) g/dL RDW (11.5-15.5) % ABG pH 7.34 L (7.35-7.45) ABG pCO2 (35-45) mmHg ABG pO2 197 H (83-108) mmHg ABG HCO3 (21-25) mmol/L ABG Total CO2 25 H (19-24) mmol/L ABG O2 Saturation 99.9 H (94-97) % ABG Hematocrit 21 L (34.0-46.0) % ABG Sodium (135-146) mmol/L ABG Potassium (3.4-4.5) mmol/L ABG Ionized Calcium 3.8 L (4.5-5.3) mg/dL ABG Glucose 181 H (75-99) mg/dL ABG Lactic Acid (0.5-1.6) mmol/L Hemoglobin 6.9 L* (11.4-16.0) gm/dL Carbon Dioxide (22-30) mmol/L BUN (7-17) mg/dL POC Glucose (mg/dL) 102 H 116 H (75-99) mg/dL Calcium (8.4-10.2) mg/dL Total Bilirubin (0.2-1.3) mg/dL AST (14-36) U/L ALT (9-52) U/L Total Protein (6.3-8.2) g/dL Albumin (3.5-5.0) g/dL Arterial Blood Potassium (3.4-4.5) mmol/L Arterial Blood Glucose 181 H (75-99) mg/dL 10/21/17 10/21/17 10/21/17 Range/Units 02:27 05:56 05:56 RBC 2.92 L (3.80-5.40) m/uL Hgb 8.0 L (11.4-16.0) gm/dL Hct 27.1 L (34.0-46.0) % MCHC 29.4 L (31.0-37.0) g/dL RDW 17.4 H (11.5-15.5) % ABG pH (7.35-7.45) ABG pCO2 (35-45) mmHg ABG pO2 (83-108) mmHg ABG HCO3 (21-25) mmol/L ABG Total CO2 (19-24) mmol/L ABG O2 Saturation (94-97) % ABG Hematocrit (34.0-46.0) % ABG Sodium (135-146) mmol/L ABG Potassium (3.4-4.5) mmol/L ABG Ionized Calcium (4.5-5.3) mg/dL ABG Glucose (75-99) mg/dL ABG Lactic Acid (0.5-1.6) mmol/L Hemoglobin (11.4-16.0) gm/dL Carbon Dioxide 32 H (22-30) mmol/L BUN 18 H (7-17) mg/dL POC Glucose (mg/dL) 109 H (75-99) mg/dL Calcium 8.2 L (8.4-10.2) mg/dL Total Bilirubin 2.2 H (0.2-1.3) mg/dL AST 99 H (14-36) U/L ALT 470 H (9-52) U/L Total Protein 5.4 L (6.3-8.2) g/dL Albumin 2.8 L (3.5-5.0) g/dL Arterial Blood Potassium (3.4-4.5) mmol/L Arterial Blood Glucose (75-99) mg/dL 10/21/17 10/21/17 Range/Units 05:59 11:30 RBC (3.80-5.40) m/uL Hgb (11.4-16.0) gm/dL Hct (34.0-46.0) % MCHC (31.0-37.0) g/dL RDW (11.5-15.5) % ABG pH (7.35-7.45) ABG pCO2 (35-45) mmHg ABG pO2 (83-108) mmHg ABG HCO3 (21-25) mmol/L ABG Total CO2 (19-24) mmol/L ABG O2 Saturation (94-97) % ABG Hematocrit (34.0-46.0) % ABG Sodium (135-146) mmol/L ABG Potassium (3.4-4.5) mmol/L ABG Ionized Calcium (4.5-5.3) mg/dL ABG Glucose (75-99) mg/dL ABG Lactic Acid (0.5-1.6) mmol/L Hemoglobin (11.4-16.0) gm/dL Carbon Dioxide (22-30) mmol/L BUN (7-17) mg/dL POC Glucose (mg/dL) 116 H 147 H (75-99) mg/dL Calcium (8.4-10.2) mg/dL Total Bilirubin (0.2-1.3) mg/dL AST (14-36) U/L ALT (9-52) U/L Total Protein (6.3-8.2) g/dL Albumin (3.5-5.0) g/dL Arterial Blood Potassium (3.4-4.5) mmol/L Arterial Blood Glucose (75-99) mg/dL Assessment and Plan Plan: Assessment and plan #1 status post aortic valve replacement and mitral valve repair #2 Postoperative respiratory failure as an expected outcome of postsurgical condition, recovered. #3 History of rheumatoid arthritis #4 History of COPD #5 Hypothyroidism #6 elevated liver enzymes, improving Plan We will decrease the dose of amiodarone to 200 mg daily. Continue other medications. We also spoke with cardiothoracic surgery regarding initiating anticoagulation because of the atrial fibrillation. She is remaining currently in normal sinus rhythm. DNP note has been reviewed, I agree with a documented findings and plan of care. Patient was seen and examined.
--- NOTE | 2017-10-21 12:24 | P.PN ---
<Robson Kumari - Last Filed: 10/21/17 12:12> Subjective Progress Note Date: 10/21/17 Principal diagnosis: Severe aortic valve insufficiency. Severe mitral valve regurgitation. History of systolic heart failure, COPD, rheumatoid arthritis, hypothyroidism, GERD, hypertension, anxiety, diverticulitis, recent urinary tract infection, and previous tobacco dependence. POD #8 aortic valve replacement using a #21 mm Magna Ease bioprosthetic aortic valve, a mitral valve repair using a #28 mm CarboMedics annular flex band, clip ligation of left atrial appendage with a #35 mm AtriClip and intraoperative transesophageal echocardiogram Postoperative acute blood loss anemia, expected outcome of surgery. Postoperative paroxysmal atrial fibrillation, an expected outcome of surgery. Elevated liver enzymes, likely shock liver as a result of hypotension, and unexpected but potential outcome of surgery. Patient is sitting up to the bedside chair. She is in no acute distress. The patient is requesting to go home as her daughter is in [facility]. She denies any complaints of pain or shortness of breath at this time. Her oxygen saturations are 92% on room air, she is achieving 250 mL on her incentive spirometry with much encouragement. Objective - Vital Signs Vital signs: Vital Signs Temp 97 F L 10/21/17 08:00 Pulse 72 10/21/17 11:42 Resp 16 10/21/17 11:42 BP 100/54 10/21/17 11:42 Pulse Ox 94 L 10/21/17 11:42 Intake & Output 10/20/17 10/21/17 10/21/17 18:59 06:59 18:59 Intake Total 168 240 Output Total 301 Balance 168 -301 240 Weight 66 kg Intake: Oral 168 240 Output: Urine 300 Stool 1 Other: Voiding Method Bedpan # Voids 1 2 # Bowel Movements 1 ABP, PAP, CO, CI - Last Documented Arterial Blood Pressure 102/53 Pulmonary Artery Pressure 29/9 Cardiac Output 4.5 Cardiac Index 3.1 - Constitutional General appearance: Present: cooperative, no acute distress - EENT ENT: Present: hearing grossly normal - Neck Details: Neck is supple, no JVD or lymphadenopathy. - Respiratory Details: Lung sounds with few scattered crackles throughout, diminished bilateral bases. Respirations are symmetrical and nonlabored. Oxygen saturation are 92% on room air. She is achieving 250 mL on her incentive spirometry with much encouragement. - Cardiovascular Details: Regular rhythm and rate. S1 and S2 present, negative for S3, gallop or murmur. Sternum is stable. Remote telemetry showing normal sinus rhythm heart rate 79. Trace edema to her bilateral lower extremities. Knee-high VIVIANA hose and sequential compression devices in place to bilateral lower extremity Arash. Heart hugger is in place and she is demonstrating appropriate use. - Gastrointestinal Gastrointestinal Comment(s): Abdomen is soft, nontender nondistended. Hypoactive bowel sounds all 4 abdominal quadrants. She is tolerating oral intake. Bowel movement this a.m. 10/21/2017. - Genitourinary Genitourinary Comment(s): Urine output adequate, clear tom urine. - Integumentary Integumentary Comment(s): Midline sternal incision clean dry and well approximated. No drainage or redness. Dermabond dressing clean and dry. Skin is warm, dry and pink. - Neurologic Neurologic: Present: CNII-XII intact - Musculoskeletal Musculoskeletal: Present: generalized weakness, strength equal bilaterally - Psychiatric Psychiatric: Present: A&O x's 3, appropriate affect, intact judgment & insight - Allied health notes Allied health notes reviewed: nursing - Labs CBC & Chem 7: 10/21/17 05:56 10/21/17 05:56 Labs: Abnormal Lab Results - Last 24 Hours (Table) 10/13/17 10/13/17 10/13/17 Range/Units 09:55 09:57 10:34 RBC (3.80-5.40) m/uL Hgb (11.4-16.0) gm/dL Hct (34.0-46.0) % MCHC (31.0-37.0) g/dL RDW (11.5-15.5) % ABG pH 7.34 L 7.33 L (7.35-7.45) ABG pCO2 52 H 52 H (35-45) mmHg ABG pO2 249 H 245 H (83-108) mmHg ABG HCO3 28 H 27 H 26 H (21-25) mmol/L ABG Total CO2 29 H 29 H 27 H (19-24) mmol/L ABG O2 Saturation 100.0 H 99.9 H 98.3 H (94-97) % ABG Hematocrit 30 L 30 L 30 L (34.0-46.0) % ABG Sodium (135-146) mmol/L ABG Potassium (3.4-4.5) mmol/L ABG Ionized Calcium (4.5-5.3) mg/dL ABG Glucose 126 H 125 H 134 H (75-99) mg/dL ABG Lactic Acid (0.5-1.6) mmol/L Hemoglobin 9.8 L 9.8 L 9.7 L (11.4-16.0) gm/dL Carbon Dioxide (22-30) mmol/L BUN (7-17) mg/dL POC Glucose (mg/dL) (75-99) mg/dL Calcium (8.4-10.2) mg/dL Total Bilirubin (0.2-1.3) mg/dL AST (14-36) U/L ALT (9-52) U/L Total Protein (6.3-8.2) g/dL Albumin (3.5-5.0) g/dL Arterial Blood Potassium (3.4-4.5) mmol/L Arterial Blood Glucose 126 H 125 H 134 H (75-99) mg/dL 10/13/17 10/13/17 10/13/17 Range/Units 11:03 11:29 12:30 RBC (3.80-5.40) m/uL Hgb (11.4-16.0) gm/dL Hct (34.0-46.0) % MCHC (31.0-37.0) g/dL RDW (11.5-15.5) % ABG pH 7.30 L 7.28 L (7.35-7.45) ABG pCO2 52 H 55 H (35-45) mmHg ABG pO2 >420 H 322 H 307 H (83-108) mmHg ABG HCO3 26 H (21-25) mmol/L ABG Total CO2 25 H 27 H 27 H (19-24) mmol/L ABG O2 Saturation 100.0 H 100.0 H 100.0 H (94-97) % ABG Hematocrit 22 L 22 L 21 L (34.0-46.0) % ABG Sodium 133 L 134 L 134 L (135-146) mmol/L ABG Potassium 3.3 L 4.9 H (3.4-4.5) mmol/L ABG Ionized Calcium 4.1 L 4.3 L (4.5-5.3) mg/dL ABG Glucose 123 H 231 H 248 H (75-99) mg/dL ABG Lactic Acid (0.5-1.6) mmol/L Hemoglobin 7.2 L 7.2 L 6.9 L* (11.4-16.0) gm/dL Carbon Dioxide (22-30) mmol/L BUN (7-17) mg/dL POC Glucose (mg/dL) (75-99) mg/dL Calcium (8.4-10.2) mg/dL Total Bilirubin (0.2-1.3) mg/dL AST (14-36) U/L ALT (9-52) U/L Total Protein (6.3-8.2) g/dL Albumin (3.5-5.0) g/dL Arterial Blood Potassium 3.3 L 4.9 H (3.4-4.5) mmol/L Arterial Blood Glucose 123 H 231 H 248 H (75-99) mg/dL 10/13/17 10/13/17 10/13/17 Range/Units 12:53 13:35 13:40 RBC (3.80-5.40) m/uL Hgb (11.4-16.0) gm/dL Hct (34.0-46.0) % MCHC (31.0-37.0) g/dL RDW (11.5-15.5) % ABG pH 7.28 L 7.28 L (7.35-7.45) ABG pCO2 (35-45) mmHg ABG pO2 302 H 271 H 255 H (83-108) mmHg ABG HCO3 (21-25) mmol/L ABG Total CO2 26 H (19-24) mmol/L ABG O2 Saturation 100.0 H 99.9 H 99.9 H (94-97) % ABG Hematocrit 23 L 23 L 23 L (34.0-46.0) % ABG Sodium (135-146) mmol/L ABG Potassium 4.7 H 4.6 H 4.6 H (3.4-4.5) mmol/L ABG Ionized Calcium 4.4 L 4.3 L 4.3 L (4.5-5.3) mg/dL ABG Glucose 216 H 207 H 208 H (75-99) mg/dL ABG Lactic Acid 2.9 H* 3.0 H* (0.5-1.6) mmol/L Hemoglobin 7.4 L 7.6 L 7.6 L (11.4-16.0) gm/dL Carbon Dioxide (22-30) mmol/L BUN (7-17) mg/dL POC Glucose (mg/dL) (75-99) mg/dL Calcium (8.4-10.2) mg/dL Total Bilirubin (0.2-1.3) mg/dL AST (14-36) U/L ALT (9-52) U/L Total Protein (6.3-8.2) g/dL Albumin (3.5-5.0) g/dL Arterial Blood Potassium 4.7 H 4.6 H 4.6 H (3.4-4.5) mmol/L Arterial Blood Glucose 216 H 207 H 208 H (75-99) mg/dL 10/13/17 10/20/17 10/20/17 Range/Units 15:05 16:30 21:28 RBC (3.80-5.40) m/uL Hgb (11.4-16.0) gm/dL Hct (34.0-46.0) % MCHC (31.0-37.0) g/dL RDW (11.5-15.5) % ABG pH 7.34 L (7.35-7.45) ABG pCO2 (35-45) mmHg ABG pO2 197 H (83-108) mmHg ABG HCO3 (21-25) mmol/L ABG Total CO2 25 H (19-24) mmol/L ABG O2 Saturation 99.9 H (94-97) % ABG Hematocrit 21 L (34.0-46.0) % ABG Sodium (135-146) mmol/L ABG Potassium (3.4-4.5) mmol/L ABG Ionized Calcium 3.8 L (4.5-5.3) mg/dL ABG Glucose 181 H (75-99) mg/dL ABG Lactic Acid (0.5-1.6) mmol/L Hemoglobin 6.9 L* (11.4-16.0) gm/dL Carbon Dioxide (22-30) mmol/L BUN (7-17) mg/dL POC Glucose (mg/dL) 102 H 116 H (75-99) mg/dL Calcium (8.4-10.2) mg/dL Total Bilirubin (0.2-1.3) mg/dL AST (14-36) U/L ALT (9-52) U/L Total Protein (6.3-8.2) g/dL Albumin (3.5-5.0) g/dL Arterial Blood Potassium (3.4-4.5) mmol/L Arterial Blood Glucose 181 H (75-99) mg/dL 10/21/17 10/21/17 10/21/17 Range/Units 02:27 05:56 05:56 RBC 2.92 L (3.80-5.40) m/uL Hgb 8.0 L (11.4-16.0) gm/dL Hct 27.1 L (34.0-46.0) % MCHC 29.4 L (31.0-37.0) g/dL RDW 17.4 H (11.5-15.5) % ABG pH (7.35-7.45) ABG pCO2 (35-45) mmHg ABG pO2 (83-108) mmHg ABG HCO3 (21-25) mmol/L ABG Total CO2 (19-24) mmol/L ABG O2 Saturation (94-97) % ABG Hematocrit (34.0-46.0) % ABG Sodium (135-146) mmol/L ABG Potassium (3.4-4.5) mmol/L ABG Ionized Calcium (4.5-5.3) mg/dL ABG Glucose (75-99) mg/dL ABG Lactic Acid (0.5-1.6) mmol/L Hemoglobin (11.4-16.0) gm/dL Carbon Dioxide 32 H (22-30) mmol/L BUN 18 H (7-17) mg/dL POC Glucose (mg/dL) 109 H (75-99) mg/dL Calcium 8.2 L (8.4-10.2) mg/dL Total Bilirubin 2.2 H (0.2-1.3) mg/dL AST 99 H (14-36) U/L ALT 470 H (9-52) U/L Total Protein 5.4 L (6.3-8.2) g/dL Albumin 2.8 L (3.5-5.0) g/dL Arterial Blood Potassium (3.4-4.5) mmol/L Arterial Blood Glucose (75-99) mg/dL 10/21/17 10/21/17 Range/Units 05:59 11:30 RBC (3.80-5.40) m/uL Hgb (11.4-16.0) gm/dL Hct (34.0-46.0) % MCHC (31.0-37.0) g/dL RDW (11.5-15.5) % ABG pH (7.35-7.45) ABG pCO2 (35-45) mmHg ABG pO2 (83-108) mmHg ABG HCO3 (21-25) mmol/L ABG Total CO2 (19-24) mmol/L ABG O2 Saturation (94-97) % ABG Hematocrit (34.0-46.0) % ABG Sodium (135-146) mmol/L ABG Potassium (3.4-4.5) mmol/L ABG Ionized Calcium (4.5-5.3) mg/dL ABG Glucose (75-99) mg/dL ABG Lactic Acid (0.5-1.6) mmol/L Hemoglobin (11.4-16.0) gm/dL Carbon Dioxide (22-30) mmol/L BUN (7-17) mg/dL POC Glucose (mg/dL) 116 H 147 H (75-99) mg/dL Calcium (8.4-10.2) mg/dL Total Bilirubin (0.2-1.3) mg/dL AST (14-36) U/L ALT (9-52) U/L Total Protein (6.3-8.2) g/dL Albumin (3.5-5.0) g/dL Arterial Blood Potassium (3.4-4.5) mmol/L Arterial Blood Glucose (75-99) mg/dL - Imaging and Cardiology Chest x-ray: report reviewed, image reviewed Assessment and Plan (1) Postoperative anemia due to acute blood loss Current Visit: Yes Status: Acute Code(s): D62 - ACUTE POSTHEMORRHAGIC ANEMIA SNOMED Code(s): 69186448634693378 (2) COPD (chronic obstructive pulmonary disease) Current Visit: Yes Status: Chronic Code(s): J44.9 - CHRONIC OBSTRUCTIVE PULMONARY DISEASE, UNSPECIFIED SNOMED Code(s): 07894991 (3) Hypothyroid Current Visit: Yes Status: Chronic Code(s): E03.9 - HYPOTHYROIDISM, UNSPECIFIED SNOMED Code(s): 15617107 (4) Rheumatoid arthritis Current Visit: Yes Status: Chronic Code(s): M06.9 - RHEUMATOID ARTHRITIS, UNSPECIFIED SNOMED Code(s): 82326303 (5) Systolic heart failure Current Visit: Yes Status: Chronic Code(s): I50.20 - UNSPECIFIED SYSTOLIC ( CONGESTIVE) HEART FAILURE SNOMED Code(s): 864809500 (6) Elevated transaminase level Current Visit: No Status: Acute Code(s): R74.0 - NONSPEC ELEV OF LEVELS OF TRANSAMNS & LACTIC ACID DEHYDRGNSE SNOMED Code(s): 542585227 (7) Mitral and aortic valve regurgitation Current Visit: No Status: Acute Code(s): I08.0 - RHEUMATIC DISORDERS OF BOTH MITRAL AND AORTIC VALVES SNOMED Code(s): 315984466 (8) Osteoarthritis Current Visit: No Status: Acute Code(s): M19.90 - UNSPECIFIED OSTEOARTHRITIS , UNSPECIFIED SITE SNOMED Code(s): 264477827 (9) Anxiety Current Visit: No Status: Chronic Code(s): F41.9 - ANXIETY DISORDER, UNSPECIFIED SNOMED Code(s): 39229105 Plan: 1. Continue low-dose aspirin, Arixtra and beta dion. Statin therapy on hold secondary to elevated liver enzymes, we will reassess on a daily basis. 2. Continue amiodarone for A. fib prophylaxis. 3. Encourage incentive spirometry 10 times every hour. 4. Lasix 20 mg IV 1 today. 5. Replace potassium per protocol. 6. Increase activity, ambulate as able. PT/OT/cardiac rehab following. 7. Blood sugar management per primary care service. 8. Will monitor daily labs and x-rays. 9. GI/DVT prophylaxis. 10. Will start anticoagulation at discharge. 11. More recommendations to follow. Patient will need subacute rehab at discharge. Anticipate discharge in the next 24 hours. Time with Patient: Greater than 30 <Nehemiah Romero - Last Filed: 10/21/17 15:28> Objective - Vital Signs Vital signs: Vital Signs Temp 97 F L 10/21/17 08:00 Pulse 80 10/21/17 12:15 Resp 16 10/21/17 11:42 BP 100/54 10/21/17 11:42 Pulse Ox 94 L 10/21/17 11:42 Intake & Output 10/20/17 10/21/17 10/21/17 18:59 06:59 18:59 Intake Total 168 462 Output Total 301 Balance 168 -301 462 Weight 66 kg Intake: Oral 168 462 Output: Urine 300 Stool 1 Other: Voiding Method Bedpan # Voids 1 2 # Bowel Movements 1 ABP, PAP, CO, CI - Last Documented Arterial Blood Pressure 102/53 Pulmonary Artery Pressure 29/9 Cardiac Output 4.5 Cardiac Index 3.1 - Labs CBC & Chem 7: 10/21/17 05:56 10/21/17 05:56 Labs: Abnormal Lab Results - Last 24 Hours (Table) 10/13/17 10/13/17 10/13/17 Range/Units 09:55 09:57 10:34 RBC (3.80-5.40) m/uL Hgb (11.4-16.0) gm/dL Hct (34.0-46.0) % MCHC (31.0-37.0) g/dL RDW (11.5-15.5) % ABG pH 7.34 L 7.33 L (7.35-7.45) ABG pCO2 52 H 52 H (35-45) mmHg ABG pO2 249 H 245 H (83-108) mmHg ABG HCO3 28 H 27 H 26 H (21-25) mmol/L ABG Total CO2 29 H 29 H 27 H (19-24) mmol/L ABG O2 Saturation 100.0 H 99.9 H 98.3 H (94-97) % ABG Hematocrit 30 L 30 L 30 L (34.0-46.0) % ABG Sodium (135-146) mmol/L ABG Potassium (3.4-4.5) mmol/L ABG Ionized Calcium (4.5-5.3) mg/dL ABG Glucose 126 H 125 H 134 H (75-99) mg/dL ABG Lactic Acid (0.5-1.6) mmol/L Hemoglobin 9.8 L 9.8 L 9.7 L (11.4-16.0) gm/dL Carbon Dioxide (22-30) mmol/L BUN (7-17) mg/dL POC Glucose (mg/dL) (75-99) mg/dL Calcium (8.4-10.2) mg/dL Total Bilirubin (0.2-1.3) mg/dL AST (14-36) U/L ALT (9-52) U/L Total Protein (6.3-8.2) g/dL Albumin (3.5-5.0) g/dL Arterial Blood Potassium (3.4-4.5) mmol/L Arterial Blood Glucose 126 H 125 H 134 H (75-99) mg/dL 10/13/17 10/13/17 10/13/17 Range/Units 11:03 11:29 12:30 RBC (3.80-5.40) m/uL Hgb (11.4-16.0) gm/dL Hct (34.0-46.0) % MCHC (31.0-37.0) g/dL RDW (11.5-15.5) % ABG pH 7.30 L 7.28 L (7.35-7.45) ABG pCO2 52 H 55 H (35-45) mmHg ABG pO2 >420 H 322 H 307 H (83-108) mmHg ABG HCO3 26 H (21-25) mmol/L ABG Total CO2 25 H 27 H 27 H (19-24) mmol/L ABG O2 Saturation 100.0 H 100.0 H 100.0 H (94-97) % ABG Hematocrit 22 L 22 L 21 L (34.0-46.0) % ABG Sodium 133 L 134 L 134 L (135-146) mmol/L ABG Potassium 3.3 L 4.9 H (3.4-4.5) mmol/L ABG Ionized Calcium 4.1 L 4.3 L (4.5-5.3) mg/dL ABG Glucose 123 H 231 H 248 H (75-99) mg/dL ABG Lactic Acid (0.5-1.6) mmol/L Hemoglobin 7.2 L 7.2 L 6.9 L* (11.4-16.0) gm/dL Carbon Dioxide (22-30) mmol/L BUN (7-17) mg/dL POC Glucose (mg/dL) (75-99) mg/dL Calcium (8.4-10.2) mg/dL Total Bilirubin (0.2-1.3) mg/dL AST (14-36) U/L ALT (9-52) U/L Total Protein (6.3-8.2) g/dL Albumin (3.5-5.0) g/dL Arterial Blood Potassium 3.3 L 4.9 H (3.4-4.5) mmol/L Arterial Blood Glucose 123 H 231 H 248 H (75-99) mg/dL 10/13/17 10/13/17 10/13/17 Range/Units 12:53 13:35 13:40 RBC (3.80-5.40) m/uL Hgb (11.4-16.0) gm/dL Hct (34.0-46.0) % MCHC (31.0-37.0) g/dL RDW (11.5-15.5) % ABG pH 7.28 L 7.28 L (7.35-7.45) ABG pCO2 (35-45) mmHg ABG pO2 302 H 271 H 255 H (83-108) mmHg ABG HCO3 (21-25) mmol/L ABG Total CO2 26 H (19-24) mmol/L ABG O2 Saturation 100.0 H 99.9 H 99.9 H (94-97) % ABG Hematocrit 23 L 23 L 23 L (34.0-46.0) % ABG Sodium (135-146) mmol/L ABG Potassium 4.7 H 4.6 H 4.6 H (3.4-4.5) mmol/L ABG Ionized Calcium 4.4 L 4.3 L 4.3 L (4.5-5.3) mg/dL ABG Glucose 216 H 207 H 208 H (75-99) mg/dL ABG Lactic Acid 2.9 H* 3.0 H* (0.5-1.6) mmol/L Hemoglobin 7.4 L 7.6 L 7.6 L (11.4-16.0) gm/dL Carbon Dioxide (22-30) mmol/L BUN (7-17) mg/dL POC Glucose (mg/dL) (75-99) mg/dL Calcium (8.4-10.2) mg/dL Total Bilirubin (0.2-1.3) mg/dL AST (14-36) U/L ALT (9-52) U/L Total Protein (6.3-8.2) g/dL Albumin (3.5-5.0) g/dL Arterial Blood Potassium 4.7 H 4.6 H 4.6 H (3.4-4.5) mmol/L Arterial Blood Glucose 216 H 207 H 208 H (75-99) mg/dL 10/13/17 10/20/17 10/20/17 Range/Units 15:05 16:30 21:28 RBC (3.80-5.40) m/uL Hgb (11.4-16.0) gm/dL Hct (34.0-46.0) % MCHC (31.0-37.0) g/dL RDW (11.5-15.5) % ABG pH 7.34 L (7.35-7.45) ABG pCO2 (35-45) mmHg ABG pO2 197 H (83-108) mmHg ABG HCO3 (21-25) mmol/L ABG Total CO2 25 H (19-24) mmol/L ABG O2 Saturation 99.9 H (94-97) % ABG Hematocrit 21 L (34.0-46.0) % ABG Sodium (135-146) mmol/L ABG Potassium (3.4-4.5) mmol/L ABG Ionized Calcium 3.8 L (4.5-5.3) mg/dL ABG Glucose 181 H (75-99) mg/dL ABG Lactic Acid (0.5-1.6) mmol/L Hemoglobin 6.9 L* (11.4-16.0) gm/dL Carbon Dioxide (22-30) mmol/L BUN (7-17) mg/dL POC Glucose (mg/dL) 102 H 116 H (75-99) mg/dL Calcium (8.4-10.2) mg/dL Total Bilirubin (0.2-1.3) mg/dL AST (14-36) U/L ALT (9-52) U/L Total Protein (6.3-8.2) g/dL Albumin (3.5-5.0) g/dL Arterial Blood Potassium (3.4-4.5) mmol/L Arterial Blood Glucose 181 H (75-99) mg/dL 10/21/17 10/21/17 10/21/17 Range/Units 02:27 05:56 05:56 RBC 2.92 L (3.80-5.40) m/uL Hgb 8.0 L (11.4-16.0) gm/dL Hct 27.1 L (34.0-46.0) % MCHC 29.4 L (31.0-37.0) g/dL RDW 17.4 H (11.5-15.5) % ABG pH (7.35-7.45) ABG pCO2 (35-45) mmHg ABG pO2 (83-108) mmHg ABG HCO3 (21-25) mmol/L ABG Total CO2 (19-24) mmol/L ABG O2 Saturation (94-97) % ABG Hematocrit (34.0-46.0) % ABG Sodium (135-146) mmol/L ABG Potassium (3.4-4.5) mmol/L ABG Ionized Calcium (4.5-5.3) mg/dL ABG Glucose (75-99) mg/dL ABG Lactic Acid (0.5-1.6) mmol/L Hemoglobin (11.4-16.0) gm/dL Carbon Dioxide 32 H (22-30) mmol/L BUN 18 H (7-17) mg/dL POC Glucose (mg/dL) 109 H (75-99) mg/dL Calcium 8.2 L (8.4-10.2) mg/dL Total Bilirubin 2.2 H (0.2-1.3) mg/dL AST 99 H (14-36) U/L ALT 470 H (9-52) U/L Total Protein 5.4 L (6.3-8.2) g/dL Albumin 2.8 L (3.5-5.0) g/dL Arterial Blood Potassium (3.4-4.5) mmol/L Arterial Blood Glucose (75-99) mg/dL 10/21/17 10/21/17 Range/Units 05:59 11:30 RBC (3.80-5.40) m/uL Hgb (11.4-16.0) gm/dL Hct (34.0-46.0) % MCHC (31.0-37.0) g/dL RDW (11.5-15.5) % ABG pH (7.35-7.45) ABG pCO2 (35-45) mmHg ABG pO2 (83-108) mmHg ABG HCO3 (21-25) mmol/L ABG Total CO2 (19-24) mmol/L ABG O2 Saturation (94-97) % ABG Hematocrit (34.0-46.0) % ABG Sodium (135-146) mmol/L ABG Potassium (3.4-4.5) mmol/L ABG Ionized Calcium (4.5-5.3) mg/dL ABG Glucose (75-99) mg/dL ABG Lactic Acid (0.5-1.6) mmol/L Hemoglobin (11.4-16.0) gm/dL Carbon Dioxide (22-30) mmol/L BUN (7-17) mg/dL POC Glucose (mg/dL) 116 H 147 H (75-99) mg/dL Calcium (8.4-10.2) mg/dL Total Bilirubin (0.2-1.3) mg/dL AST (14-36) U/L ALT (9-52) U/L Total Protein (6.3-8.2) g/dL Albumin (3.5-5.0) g/dL Arterial Blood Potassium (3.4-4.5) mmol/L Arterial Blood Glucose (75-99) mg/dL Assessment and Plan Plan: The patient was seen and examined. I agree with the above assessment and plan. The patient has been encouraged to ambulate more frequently. She currently has no appetite and I have recommended ensure shakes to help supplement her diet. Her statin is on hold secondary to elevated liver enzymes which are trending down. Her chest x-ray was reviewed. We have given her dose of Lasix. She will likely be discharged to subacute rehab within the next 24 hours.
[2017-10-21 16:27] LABS: Glucose,Whole Blood 147 mg/dL (75-99)
[2017-10-21 21:14] LABS: Glucose,Whole Blood 141 mg/dL (75-99)
[2017-10-21] MEDS: SENNOSIDES-DOCUSATE SODIUM 1 EACH TAB PO SCH (21:27)
[2017-10-21] MEDS: ACETAMINOPHEN TAB 325 MG TAB PO PRN (22:50)
[2017-10-22 02:02] LABS: Glucose,Whole Blood 111 mg/dL (75-99)
[2017-10-22 06:00] LABS: Glucose,Whole Blood 97 mg/dL (75-99)
[2017-10-22] MEDS: INSULIN ASPART 100 UNIT/ML 1 ML 10 ML VIAL SQ SCH ×3 (06:18→16:38)
[2017-10-22] MEDS: LEVOTHYROXINE 100 MCG TAB PO SCH (06:25)
[2017-10-22] MEDS: PANTOPRAZOLE 40 MG TABLET PO SCH (06:25)
[2017-10-22] MEDS: FERROUS SULFATE 325 MG TAB PO SCH ×2 (06:25→16:38)
[2017-10-22 06:59] LABS: Anisocytosis Slight; Basophils % (A) 1 %; Eosinophils # (A) 0.3 k/uL (0-0.7); Eosinophils % (A) 3 %; HCT 27.1 % (34.0-46.0); HGB 8.1 gm/dL (11.4-16.0); Hypochromasia Marked; Lymphocytes # (A) 1.6 k/uL (1.0-4.8); Lymphocytes % (A) 19 %; MCHC 29.9 g/dL (31.0-37.0); MCV 90.2 fL (80.0-100.0); Mean Platelet Volume 8.4; Monocytes # (A) 0.6 k/uL (0-1.0); Monocytes % (A) 7 %; Neutrophils # (A) 5.6 k/uL (1.3-7.7); Neutrophils % (A) 67 %; Platelet Count 220 k/uL (150-450); Poikilocytosis Slight; RBC 3.01 m/uL (3.80-5.40); RDW 17.4 % (11.5-15.5); WBC 8.4 k/uL (3.8-10.6)
[2017-10-22 07:14] LABS: ALT 318 U/L (9-52); AST 56 U/L (14-36); Albumin 2.6 g/dL (3.5-5.0); Alkaline Phosphatase 80 U/L (38-126); Anion Gap 6 mmol/L; Blood Urea Nitrogen 13 mg/dL (7-17); Calcium 8.1 mg/dL (8.4-10.2); Carbon Dioxide 32 mmol/L (22-30); Chloride 99 mmol/L (98-107); Glucose 87 mg/dL (74-99); Magnesium 2.2 mg/dL (1.6-2.3); Potassium 3.6 mmol/L (3.5-5.1); Sodium 137 mmol/L (137-145); Total Protein 5.5 g/dL (6.3-8.2)
[2017-10-22] MEDS: IPRATROPIUM-ALBUTEROL 3 ML NEB INHALATION SCH ×3 (07:19→14:56)
[2017-10-22] MEDS ORDERED: POTASSIUM CHLORIDE ER 20 MEQ TAB.ER PO SCH (08:00)
[2017-10-22] MEDS ORDERED: POTASSIUM CHLORIDE 10 MEQ in SODIUM CHLORIDE 0.9% 100 ML IVPB SCH (08:00)
[2017-10-22] MEDS: AMIODARONE 200 MG TAB PO SCH (08:44)
[2017-10-22] MEDS: METOPROLOL TARTRATE 25 MG TAB PO SCH (08:44)
[2017-10-22] MEDS: ASPIRIN 81 MG PO SCH (08:44)
[2017-10-22] MEDS: FONDAPARINUX 2.5 MG/0.5 ML SYRINGE SQ SCH (08:45)
--- NOTE | 2017-10-22 10:24 | P.PN ---
Subjective Progress Note Date: 10/22/17 This is a 72-year-old female with a known history aortic of severe aortic valve insufficiency and severe mitral regurgitation, congestive heart failure, rheumatoid arthritis, hypothyroidism, diverticulosis, and COPD. Initially patient underwent aortic valve replacement and mitral valve repair. She is currently intubated. Yesterday during a weaning trial she went into atrial fibrillation with rapid ventricular response. She also had an episode post operatively of A. fib and required cardioversion. Cardiothoracic surgeon has added amiodarone. Cardiology has been consulted. Patient's hemoglobin is 6.0 and platelets are 79. She did receive 1 unit of blood and is scheduled for a second unit today. She is also receiving fresh frozen plasma. Patient remains intubated and sedated. The planning to try another weaning trial today. We've been consulted for medical management. Currently on insulin drip for tight control of blood sugars postoperatively. Patient has no history of diabetes. On 10/15/2017 patient was seen and examined in the intensive care unit. She was extubated. This is postoperative day #2 following aortic valve replacement and a mitral valve repair. Patient is maintained on O2 4 L nasal cannula, Chest x-ray reveals evidence of atelectasis with small effusions. Chest tubes in place. She is on insulin drip at 0.5 units per hour. She received a unit of packed red blood cells. She denies any chest pain or shortness of breath no fever or chills no cough she had 1 episode of vomiting no abdominal pain and no urinary symptoms 10/16/2017 patient sitting up in bedside chair. She is very weak and kind of hunched over. She had low urine outputs and was hypotensive dopamine added. Also was given Lasix and albumin. Urine output has improved. LFTs were noted to be elevated. Statin was discontinued and it also could be related to hypotension. 10/17/2017 patient has some elevation in her LFTs AST 1811 ALT 1259. Total bilirubin 3.5. She has been seen by GI service. They felt related to an ischemic hepatitis due to hypotension and amiodarone. The recommending to discontinue the amiodarone. Case discussed with GI service. Patient statin also discontinued. Patient sitting in bedside chair. Has one chest tube. On high flow 5 L satting at 100%. Hemoglobin 8.1 and platelets 56. Chest x-ray showing interval development of airspace disease correlate for pulmonary edema versus pneumonia. Patient was given 1 dose of IV Lasix per Dr. Man. Patient dopamine was discontinued today. She's been having atrial flutter. Cardiology ordered digoxin. Patient denies any chest pain shortness of breath. 10/20/2017 patient was transferred out of the ICU over the weekend. She sitting at bedside chair. She is weak. Reports that her pain is controlled. Denies any nausea or vomiting. Reports having bowel movements. Denies any difficulty urinating. She reports no previous history of diabetes. She is currently in sinus rhythm. 10/21/2017 patient wants to go home. She does not want to go to rehab. Patient is been educated thoroughly that she is very weak and would benefit from rehabilitation. She was evaluated by Dr. Holden and is not candidate for inpatient rehab. Patient reports that her pain is controlled. She was able to ambulate in the echols in her room. Denies any chest pain or shortness of breath. Denies any nausea or vomiting. Reports having bowel movements. Denies any difficulty urinating. On 10/22/2017 patient was evaluated by Dr. Holden and is not candidate for inpatient rehab. Plan is for rehab at [facility]. Patient states that her pain is wellcontrolled. She was able to ambulate in the echols in her room. Denies any chest pain or shortness of breath. Denies any nausea or vomiting, no diarrhea and no abdominal pain. Reports having bowel movements. And no urinary symptoms. Objective - Vital Signs Vital signs: Vital Signs Temp 97.4 F L 10/22/17 08:00 Pulse 64 10/22/17 08:00 Resp 16 10/22/17 08:00 BP 103/55 10/22/17 08:00 Pulse Ox 92 L 10/22/17 08:00 Intake & Output 10/21/17 10/22/17 10/22/17 18:59 06:59 18:59 Intake Total 902 20 360 Balance 902 20 360 Weight 62.5 kg 62.5 kg Intake: IV 20 0.9 20 Intake, IV Titration 200 Amount Potassium Chloride 10 meq 200 In Sodium Chloride 0.9% 100 ml @ 100 mls/hr IVPB Q1H [facility] Rx#:[id number] Oral 702 360 Other: Voiding Method Bedside Commode # Voids 2 # Bowel Movements 1 ABP, PAP, CO, CI - Last Documented Arterial Blood Pressure 102/53 Pulmonary Artery Pressure 29/9 Cardiac Output 4.5 Cardiac Index 3.1 - Exam Head normocephalic and atraumatic Neck supple no JVD no goiter no lymphadenopathy Lungs wheezing noted bilaterally. [address] Heart regular rate and rhythm S1-S2, no rub or gallop Abdomen is soft nontender nondistended positive bowel sounds no hepatosplenomegaly Extremities no edema no cyanosis or clubbing Neuro intubated and sedated - Labs CBC & Chem 7: 10/22/17 06:18 10/22/17 06:18 Labs: Abnormal Lab Results - Last 24 Hours (Table) 10/21/17 10/21/17 10/21/17 Range/Units 11:30 16:25 21:12 RBC (3.80-5.40) m/uL Hgb (11.4-16.0) gm/dL Hct (34.0-46.0) % MCHC (31.0-37.0) g/dL RDW (11.5-15.5) % Carbon Dioxide (22-30) mmol/L POC Glucose (mg/dL) 147 H 147 H 141 H (75-99) mg/dL Calcium (8.4-10.2) mg/dL Total Bilirubin (0.2-1.3) mg/dL AST (14-36) U/L ALT (9-52) U/L Total Protein (6.3-8.2) g/dL Albumin (3.5-5.0) g/dL 10/22/17 10/22/17 10/22/17 Range/Units 02:00 06:18 06:18 RBC 3.01 L (3.80-5.40) m/uL Hgb 8.1 L (11.4-16.0) gm/dL Hct 27.1 L (34.0-46.0) % MCHC 29.9 L (31.0-37.0) g/dL RDW 17.4 H (11.5-15.5) % Carbon Dioxide 32 H (22-30) mmol/L POC Glucose (mg/dL) 111 H (75-99) mg/dL Calcium 8.1 L (8.4-10.2) mg/dL Total Bilirubin 2.0 H (0.2-1.3) mg/dL AST 56 H (14-36) U/L ALT 318 H (9-52) U/L Total Protein 5.5 L (6.3-8.2) g/dL Albumin 2.6 L (3.5-5.0) g/dL Assessment and Plan Plan: 1. status post aortic valve replacement and mitral valve repair for severe aortic valve insufficiency and severe mitral valve stenosis 2. Episodes of paroxysmal atrial fibrillation with rapid ventricular response: Patient is currently in normal sinus rhythm. Cardiology following. 3. Expected acute blood loss anemia secondary to surgery. Patient has received blood transfusions. Hemoglobin is 8.1 today. 4. Thrombocytopenia: Resolved. Hit screen was negative 5. Postop respiratory failure requiring mechanical ventilation with successful extubation 6. History of COPD 7. Hypothyroidism 8. Chronic systolic congestive heart failure with an EF of 40-45% 9. underlying history of Rheumatoid arthritis 10. Hyperglycemia after surgery: Off of insulin drip and on Accu-Cheks. Check hemoglobin A1c 11. Acute on chronic systolic CHF exacerbation. Improved with IV Lasix 12. Medication induced hepatitis: Statin discontinued. Amiodarone dose was decreased. Also episodes of hypotension could be contributing to elevated LFTs. Evaluated by GI service. LFTs trending down DVT prophylaxis Arixtra Encouraged patient to go to [facility] for rehab.
[2017-10-22] MEDS ORDERED: FUROSEMIDE 10 MG/ML 2 ML VIAL IV ONE (11:08)
[2017-10-22 11:31] LABS: Glucose,Whole Blood 136 mg/dL (75-99)
[2017-10-22] MEDS: ASCORBIC ACID 500 MG TAB PO SCH (11:56)
--- NOTE | 2017-10-22 12:14 | P.PN ---
Subjective Progress Note Date: 10/22/17 Principal diagnosis: Severe aortic insufficiency, severe mitral regurgitation. Status post aortic valve replacement with a 21 mm magna ease bioprosthetic aortic valve, mitral valve repair with a #28 [employer] band. This is a 72-year-old female with a history of kidney stones rheumatoid arthritis COPD aortic stenosis UTI heart failure and hypothyroidism. She sees Dr. Rafael Vaughn at [facility]. He is her acquisition analyst. The patient was recently evaluated by the surgeons here and she is postop day #1 status post aortic valve replacement and mitral valve repair. The surgery was done by one of the cardiothoracic surgeons here and I did a preop evaluation. Currently, the patient is getting lactated Ringer's at 50 mL now her Primacor, propofol at 45 mics per kilogram per minute and insulin infusion at 3 units an hour. Last night, and attempt to wean her, she developed atrial fibrillation with some mild heart failure and nephrology blood-tinged sputum. She did have weaning parameters. The NIF was -25 rapid shallow breathing index was 77 respiratory was 25 tidal volume 331 vital capacity was 500 and minute volume of 7.1 L/m. The patient's vent settings are the SIMV mode rate of 20 tidal volume 350 FiO2 50% and PEEP of 5. The patient is receiving 2 units of PRBCs. Hopefully, later today she can be weaned. The patient is seen again today in follow-up 10/15/2017 in the intensive care unit. She was successfully extubated. This is postoperative day #2 following aortic valve replacement and a mitral valve repair. She is currently sitting up in a chair at the bedside. She is maintaining O2 saturations in the 90s on 4 L/m per nasal cannula. She is working well with the incentive spirometer. Chest x-ray is revealing a sore atelectasis with small effusions. Stable in comparison. Chest tubes remain in place. She has an IV of lactated Ringer's at 20 miles per hour. She is on insulin drip at 0.5 units per hour. Her hemoglobin was 6.8. She is receiving a unit of packed red blood cells. Current temperature 99.8. No tachycardia, no tachypnea. Hemodynamically stable. White count 8.4. Hemoglobin 6.8. Platelet count 69,000. Creatinine 0.73. Patient was reevaluated today on 10/16/2017, remains off mechanical ventilation, she is postoperative day #3, on nasal cannula, in no distress. Patient is sitting in a bedside chair. Chest x-ray was reviewed and her CBC showed WBC count of 11.6 hemoglobin is 8.8 electrolytes are normal BUN is 42 creatinine is 1.0. Liver enzymes are noted to be elevated with AST of 547 ALT of 359, statin therapy is presently on hold because of elevated liver enzymes, the amiodarone may have to be switched to another form of ventilatory the medications because of the liver enzymes. That will be decided upon by cardiology on the case. Chest x-ray is showing small bilateral pleural effusions, and mild central venous congestion with atelectasis. Patient was reevaluated today on 10/17/2017, patient is now postoperative day # 4. Remains on nasal cannula, however the patient seems to be generally weak, frail, and doing very poorly with incentive spirometry. Her chest x-ray is showing some worsening atelectasis in the right lower lobe, and possibly some component of fluid overload. Her liver enzymes seem to be on the rise, most likely secondary to amiodarone, could also be related to intermittent episodes of hypotension. Or probably both. I think amiodarone is presently on hold by cardiology, the atrial fibrillation could be managed with digoxin and possibly Cardizem. Reevaluated today on 10/18/2017, patient is postoperative day #5. Remains on nasal cannula, remained generally weak, patient is extremely frail and fragile. Unable to do much of anything on her own. Her incentive spirometer he is extremely poor. Patient does not even cough unless requested, claims that it is too painful to cough. Patient is in atrial flutter, remains on amiodarone liver enzymes are still elevated but lower. Reevaluated today on 10/19/2017, patient is postoperative day #6, remains on nasal cannula, remains frail looking weak, exhausted, but not in respiratory distress. Lab work was reviewed hemoglobin is 8.1 basic metabolic profile is normal renal profile is normal liver enzymes seem to be improving slowly but steadily. Patient was reevaluated today on 10/20/2017, she is postoperative day #7. Patient remains about the same, generally weak, frail looking, unable to do much on her own. Even noted to do poorly with incentive spirometry less than 200 on the spirometer. Denies any aches and pains, feels generally better today compared to how she felt over the last few days. Has to be encouraged to cough and has to be encouraged to use the incentive spirometer. Chest x-ray showed basilar atelectasis, and slight venous congestion. The patient is seen again today 10/21/2017 in follow-up on the selective care unit. This is postoperative day #8. She is currently sitting up in a chair at the bedside. She is awake and alert in no acute distress. She denies any worsening shortness of breath, cough or congestion. Chest x-ray reveals minimal basilar densities. Improved aeration. She is maintaining O2 saturations in the 90s on room air. No tachycardia, no tachypnea. She is afebrile. White count 10.3. Hemoglobin 8.0. Creatinine 0.54. AST 99, ALT 470. Improved. The patient is seen again today 10/22/2017 in follow-up in the selective care unit. This is postoperative day #9. She is currently sitting up in the chair at the bedside. She is more awake and alert today as compared to yesterday. She denies any worsening shortness of breath, cough or congestion. She is maintaining good O2 saturations in the 90s on room air. White count 8.4. Hemoglobin 8.1. Creatinine 0.60. AST 56, ALT 318. Objective - Vital Signs Vital signs: Vital Signs Temp 97.4 F L 10/22/17 08:00 Pulse 76 10/22/17 11:08 Resp 16 10/22/17 08:00 BP 103/55 10/22/17 08:00 Pulse Ox 92 L 10/22/17 08:00 Intake & Output 10/21/17 10/22/17 10/22/17 18:59 06:59 18:59 Intake Total 902 20 360 Balance 902 20 360 Weight 62.5 kg 62.5 kg Intake: IV 20 0.9 20 Intake, IV Titration 200 Amount Potassium Chloride 10 meq 200 In Sodium Chloride 0.9% 100 ml @ 100 mls/hr IVPB Q1H [facility] Rx#:[id number] Oral 702 360 Other: Voiding Method Bedside Commode # Voids 2 # Bowel Movements 1 ABP, PAP, CO, CI - Last Documented Arterial Blood Pressure 102/53 Pulmonary Artery Pressure 29/9 Cardiac Output 4.5 Cardiac Index 3.1 - Exam GENERAL EXAM: Alert, fairly comfortable in no apparent distress. HEAD: Normocephalic. EYES: Normal reaction of pupils, equal size. NOSE: Clear with pink turbinates. THROAT: No erythema or exudates. NECK: No masses, no JVD. CHEST: Surgical dressing dry and intact. Heart Hugger in place.. LUNGS: Equal air entry with crackles in the posterior bases.. CVS: S1 and S2 normal with no audible murmur, regular rhythm. ABDOMEN: No hepatosplenomegaly, normal bowel sounds, no guarding or rigidity. SPINE: No scoliosis or deformity SKIN: No rashes CENTRAL NERVOUS SYSTEM: No focal deficits, tone is normal in all 4 extremities. EXTREMITIES: Sequential compression devices in place. There is trace peripheral edema. No clubbing, no cyanosis. Peripheral pulses are intact. - Labs CBC & Chem 7: 10/22/17 06:18 10/22/17 06:18 Labs: Abnormal Lab Results - Last 24 Hours (Table) 10/21/17 10/21/17 10/22/17 Range/Units 16:25 21:12 02:00 RBC (3.80-5.40) m/uL Hgb (11.4-16.0) gm/dL Hct (34.0-46.0) % MCHC (31.0-37.0) g/dL RDW (11.5-15.5) % Carbon Dioxide (22-30) mmol/L POC Glucose (mg/dL) 147 H 141 H 111 H (75-99) mg/dL Calcium (8.4-10.2) mg/dL Total Bilirubin (0.2-1.3) mg/dL AST (14-36) U/L ALT (9-52) U/L Total Protein (6.3-8.2) g/dL Albumin (3.5-5.0) g/dL 10/22/17 10/22/17 10/22/17 Range/Units 06:18 06:18 11:28 RBC 3.01 L (3.80-5.40) m/uL Hgb 8.1 L (11.4-16.0) gm/dL Hct 27.1 L (34.0-46.0) % MCHC 29.9 L (31.0-37.0) g/dL RDW 17.4 H (11.5-15.5) % Carbon Dioxide 32 H (22-30) mmol/L POC Glucose (mg/dL) 136 H (75-99) mg/dL Calcium 8.1 L (8.4-10.2) mg/dL Total Bilirubin 2.0 H (0.2-1.3) mg/dL AST 56 H (14-36) U/L ALT 318 H (9-52) U/L Total Protein 5.5 L (6.3-8.2) g/dL Albumin 2.6 L (3.5-5.0) g/dL Assessment and Plan Assessment: Assessment Postop day #9 status post aortic valve replacement and mitral valve repair Postoperative respiratory failure as an expected outcome of postsurgical condition, recovered. History of rheumatoid arthritis History of CHF History of COPD Hypothyroidism History of diverticular disease History of urinary tract infection Anemia requiring a second unit of packed red blood cells. Plan: The patient was seen and evaluated by Dr. Man. She is currently stable from the pulmonary standpoint. She is again encouraged regarding the increased use of the incentive spirometer. Continue bronchodilators 4 times a day and when necessary. Will increase her activity as tolerated. She has been slow to progress. We'll continue to follow. The plan is for probable inpatient rehabilitation and extended care facility. I, the cosigning physician, performed a history & physical examination of the patient. Lungs sounds crackles in the bilateral posterior bases. Maintaining good O2 saturations in the 90s on room air. I discussed the assessment and plan of care with my nurse practitioner, Laverne Caal. I attest to the above note as dictated by her.
[2017-10-22] MEDS ORDERED: DEXTROSE 5% IN WATER 100 ML with AMIODARONE 150 MG IV ONE (12:15)
--- NOTE | 2017-10-22 12:27 | P.DS ---
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 Do you want consulting provider notified?: Yes Consult Physician Routine Consulting Provider: Olya Olson Consult Reason/Comments: medical management Do you want consulting provider notified?: Yes Consult Physician Routine Consulting Provider: Alexx Flores Consult Reason/Comments: Production [employer] Consult: post cardiac surgery Do you want consulting provider notified?: Yes 10/20/17 15:17 Consult Physician Routine Consulting Provider: John Serna Consult Reason/Comments: eval for inpatient rehab Do you want consulting provider notified?: Yes Primary care physician: Stated None - Discharge Diagnosis(es) (1) Postoperative anemia due to acute blood loss Current Visit: Yes Status: Acute (2) COPD (chronic obstructive pulmonary disease) Current Visit: Yes Status: Chronic (3) Hypothyroid Current Visit: Yes Status: Chronic (4) Rheumatoid arthritis Current Visit: Yes Status: Chronic (5) Systolic heart failure Current Visit: Yes Status: Chronic (6) Elevated transaminase level Current Visit: No Status: Acute (7) Mitral and aortic valve regurgitation Current Visit: No Status: Acute (8) Osteoarthritis Current Visit: No Status: Acute (9) Anxiety Current Visit: No Status: Chronic Hospital Course: FINAL DIAGNOSIS: 1. Severe aortic valve insufficiency 2. Severe mitral valve regurgitation 3. History of systolic heart failure with a documented ejection fraction of 25- 30%. 4. Chronic obstructive pulmonary disease 5. Rheumatoid arthritis 6. Hypothyroidism 7. GERD 8. Hypertension 9. Anxiety 10. Diverticulitis 11. Previous tobacco dependence 12. History of recent urinary tract infection 13. Postoperative paroxysmal atrial fibrillation, an expected outcome of surgery 14. Postoperative acute blood loss anemia, an expected outcome of surgery 15. Elevated liver enzymes, likely shock liver as a result of hypotension, an unexpected by potential, surgery. PRINCIPAL PROCEDURE: 1. Aortic valve replacement using a #21 Magna Ease bioprosthetic aortic valve, mitral valve repair using a #28 mm Carbomedics annular flex band. 2. Clip ligation of the left atrial appendage with a #35 mm Atriclip. 3. Intraoperative transesophageal echocardiogram. HISTORY OF PRESENT ILLNESS: This is a 72-year-old female patient who is followed by Dr. Olya Olson on an outpatient basis. The patient is also been followed by Dr. Vaughn from cardiology out of [facility]. Patient has a past medical history which includes severe aortic valve insufficiency, severe mitral valve regurgitation, history of systolic heart failure with a documented ejection fraction of 25-30%, COPD, rheumatoid arthritis, hypothyroidism, GERD, hypertension, anxiety, diverticulitis, and previous tobacco dependence. Recently, the patient has had complaints of progressive shortness of breath with exertion. She has had two recent emergency department visits with complaints of shortness of breath. The patient reports that her shortness of breath as really limited her activities of daily living including ambulating to the bathroom. On 09/11/2017 the patient underwent a transesophageal echocardiogram at [facility] which demonstrated moderate to severe aortic insufficiency, moderate to severe mitral regurgitation , and an ejection fraction of 40-45%. Subsequently for further evaluation the patient underwent a cardiac catheterization on 10/07/2017 which demonstrated normal coronary arteries with a severely impaired left ventricular systolic function with severe mitral regurgitation. During heart catheterization a left ventriculogram was also completed which showed her to have an ejection fraction of 25-30%. Due to her complaints of progressive shortness of breath, MATTHEW results and cardiac catheterization results a consult was placed to Dr. Rodriguez from cardiothoracic surgery. Dr. Rodriguez did meet with the patient on an outpatient basis and discussed the findings of the above-mentioned studies with the patient and her and an elective aortic valve replacement and mitral valve repair/replacement was recommended. HOSPITAL COURSE: The patient was admitted to the hospital and after obtaining consent she was taken to the operating room where Dr. Rodriguez performed an elective aortic valve replacement using a #21 Magna Ease bioprosthetic aortic valve, mitral valve repair using a #28 mm Carbomedics annular flex band, clip ligation of the left atrial appendage with a #35 mm Atriclip and in intraoperative transesophageal echocardiogram. Patient was subsequently transferred to the cardiovascular intensive care unit where she was recovered, monitored hemodynamically and where she progressed cardiac rehabilitation phase 1. The patient was extubated, all lines, tubes and drips were discontinued and she was transferred to [address] [place] [address] for further monitoring and rehabilitation. She was weaned off her oxygen and she continued to work with physical therapy and cardiac rehab and was ready for discharge to [facility] for further rehabilitation needs on postoperative day #9. Postoperatively the patient did have some paroxysmal atrial fibrillation which was treated accordingly. The patient has received written and verbal instructions regarding her medications, lab work, activity restrictions, signs and symptoms requiring physician notification and follow-up appointments. COMPLICATIONS: Her postoperative period was complicated by some paroxysmal atrial fibrillation which was treated accordingly. CONSULTATIONS: 1. Dr. Flores for cardiology management 2. Dr. Olson for medical management 3. Dr. Doyle for pulmonary and ventilator management 4. Dr. Perez for elevated liver enzymes management 5. Dr. Serna for rehab management DISCHARGE INSTRUCTIONS: 1. No driving for 4 weeks, or until physician gives their ok. 2. Daily PT and INRs, with daily Coumadin dosing per INR results until therapeutic. 3. The patient will be discharged to [facility] today for further rehabilitation, and PATRICIO inhibitor/ARB will be held at this time due to some episodes of hypotension but will be reevaluated on an outpatient basis. 4. VIVIANA hose are to be worn for 30 days or until physician discontinues. 5. Heart hugger is to be worn 100% of the time until physician discontinues.( except when showering) 6. No lifting, pushing, or pulling more than 10 pounds for 12 weeks. The physician will advise of any restriction changes. 7. The patient is expected to continue the prescribed walking program. 8. Continue pain control per as needed orders. 9. Continue with incentive spirometry and splinting/heart hugger until otherwise directed by the physician. 10. Must shower daily using liquid antibacterial soap and a separate white washcloth for each individual incision. 11. Routine sternal incision care, no ointments, lotions or powders on the incisions. 12. Please notify surgeon/nurse practitioner for temperature greater than 101F or purulent drainage from incisions 13. Prescriptions for first 30 days given per cardiac surgery service. After 30 days, all prescription refills obtained through cardiology/primary care physician. 14. A red arm and has been placed on this patient it should be worn for 30 days post surgery and will be removed by the cardiothoracic surgeons. If an ER visit is necessary, please make sure the number on the red arm band is called. [facility] TO PROVIDE: RN SKILLED HOME CARE SERVICES FOR POST-OP SURGICAL PATIENTS WITH THE FOLLOWING: Coronary Artery Bypass Surgery (CABG), Mitral Valve Replacement/ Repair ( MVR), Aortic Valve Replacement/Repair (AVR) RN TO CONTINUE EDUCATION FROM ``ROAD TO A HEALTH HEART PATIENT EDUCATION MANUAL" (GIVEN TO PATIENT IN THE HOSPITAL) MEDICATION RECONCILIATION WITH EDUCATION NEEDED ON FIRST HOME VISIT EMPHASIZE IMPORTANCE OF WEARING BREAST SUPPORT/HEART HUGGER ENCOURAGE USE OF INCENTIVE SPIROMETER 10 X EVERY HOUR WHILE AWAKE ENCOURAGE UTILIZATION OF LOWER EXTREMITY COMPRESSION STOCKINGS/VIVIANA HOSE and ELEVATE LEGS ABOVE LEVEL OF HEART WHILE AT REST. ENCOURAGE AMBULATION 3-5x/day INCREASING TOLERATES, WHILE AVOID EXTREMES IN TEMPERATURE LABORATORY: CBC, CMP TO BE DRAWN ON THE THIRD DAY HOME, Friday10/25/2017 (RAN STAT ) FAX RESULTS TO [phone]. Continue to monitor liver enzymes. Daily PT and INRs starting on 10/23/2017 until Coumadin is therapeutic. TELEHEALTH PARAMETERS: WEIGHT: NOTIFY MD OF WEIGHT GAIN OF 2 LBS IN 24 HOURS OR 5 LBS IN ONE WEEK HR: NOTIFY MD OF HR <55 BPM OR HR>100 BPM BP: NOTIFY MD IF BP <90/55 OR BP>140/100 O2 SAT: NOTIFY MD IF PO2<93% ON ROOM AIR SEND TELEHEALTH REPORT TO [facility] AND CARDIOVASCULAR SURGEON THE FIRST WEEK OF CARE AND THEN BI-WEEKLY. PLEASE ADDITIONALLY COMMUNICATE ANY ABNORMALS AND NEW FINDINGS TO THE SURGEONS OFFICE. Plan - Discharge Summary Discharge Rx Participant: Yes New Discharge Prescriptions: New Acetaminophen Tab [Tylenol] 650 mg PO Q6HR PRN tab PRN Reason: Fever And/ Or Pain Amiodarone [Cordarone] 200 mg PO BID tab Bisacodyl [Dulcolax] 10 mg RECTAL DAILY PRN supp PRN Reason: Constipation Levothyroxine Sodium [Synthroid] 100 mcg PO DAILY@0630 tab Magnesium Hydroxide [Milk of Magnesia Concentrate] 2,400 mg PO BID PRN ml PRN Reason: Constipation Metoprolol Tartrate [Lopressor] 25 mg PO BID tab Sennosides-Docusate Sodium [Senokot-S] 2 each PO HS tab ALPRAZolam [Xanax] 0.25 mg PO TID PRN #90 tab PRN Reason: Anxiety Aspirin 81 mg PO DAILY chew Warfarin Sodium [Coumadin] 5 mg PO DIRECTED #30 tablet Continue Cholecalciferol [Vitamin D3] 2,000 units PO DAILY Ascorbic Acid [Vitamin C] 500 mg PO DAILY ALPRAZolam [Xanax] 0.25 mg PO Q8H PRN PRN Reason: Anxiety Furosemide [Lasix] 20 mg PO DAILY Fluticasone/Salmeterol [Advair Hfa 230-21 Mcg Inhaler] 1 - 2 puff INHALATION RT-BID Albuterol Sulfate [Proair Hfa] 1 - 2 puff INHALATION RT-Q6H PRN PRN Reason: Shortness Of Breath Ipratropium/Albuterol Sulfate [Combivent Respimat Inhaler] 1 puff INHALATION RT-QID PRN PRN Reason: Dyspnea Ferrous Sulfate [Iron (65 MG Elemental)] 325 mg PO DAILY Pantoprazole [Protonix] 40 mg PO DAILY PRN PRN Reason: Heartburn Discontinued Naproxen [Naprosyn] 500 mg PO Q12HR PRN PRN Reason: Pain HYDROcodone/APAP 10-325MG [[place] 10-325] 1 tab PO Q6H PRN PRN Reason: Pain Metoprolol Tartrate [Lopressor] 25 mg PO DAILY #30 tab Losartan [Cozaar] 12.5 mg PO DAILY Levothyroxine Sodium [Synthroid] 150 mcg PO DAILY Aspirin 324 mg PO ONCE Discharge Medication List ALPRAZolam [Xanax] 0.25 mg PO Q8H PRN 01/22/14 [History] Ascorbic Acid [Vitamin C] 500 mg PO DAILY 01/22/14 [History] Cholecalciferol [Vitamin D3] 2,000 units PO DAILY 01/22/14 [History] Furosemide [Lasix] 20 mg PO DAILY 06/18/16 [History] Albuterol Sulfate [Proair Hfa] 1 - 2 puff INHALATION RT-Q6H PRN 09/15/17 [ History] Fluticasone/Salmeterol [Advair Hfa 230-21 Mcg Inhaler] 1 - 2 puff INHALATION RT- BID 09/15/17 [History] Ipratropium/Albuterol Sulfate [Combivent Respimat Inhaler] 1 puff INHALATION RT- QID PRN 09/29/17 [History] Ferrous Sulfate [Iron (65 MG Elemental)] 325 mg PO DAILY 10/10/17 [History] Pantoprazole [Protonix] 40 mg PO DAILY PRN 10/10/17 [History] ALPRAZolam [Xanax] 0.25 mg PO TID PRN #90 tab 10/22/17 [Rx] Acetaminophen Tab [Tylenol] 650 mg PO Q6HR PRN tab 10/22/17 [Rx] Amiodarone [Cordarone] 200 mg PO BID tab 10/22/17 [Rx] Aspirin 81 mg PO DAILY chew 10/22/17 [Rx] Bisacodyl [Dulcolax] 10 mg RECTAL DAILY PRN supp 10/22/17 [Rx] Levothyroxine Sodium [Synthroid] 100 mcg PO DAILY@0630 tab 10/22/17 [Rx] Magnesium Hydroxide [Milk of Magnesia Concentrate] 2,400 mg PO BID PRN ml 10/22 [Rx] Metoprolol Tartrate [Lopressor] 25 mg PO BID tab 10/22/17 [Rx] Sennosides-Docusate Sodium [Senokot-S] 2 each PO HS tab 10/22/17 [Rx] Warfarin Sodium [Coumadin] 5 mg PO DIRECTED #30 tablet 10/22/17 [Rx] Follow up Appointment(s)/Referral(s): Milton Doyle DO [Doctor of Osteopathic Medicine] - 11/06/17 10:45 am Olya Olson MD [STAFF PHYSICIAN] - 11/04/17 3:15 pm Moise Rodriguez MD [STAFF PHYSICIAN] - 11/26/17 3:00 pm Cristóbal Riggins MD [STAFF PHYSICIAN] - 11/05/17 3:15 pm Ambulatory/Diagnostic Orders: Complete Blood Count w/diff [LAB.AMB] Time Frame: 3 Days, Facility: [facility], Location: Laboratory [facility] Comprehensive Metabolic Panel [LAB.AMB] Time Frame: 3 Days, Facility: [facility], Location: Laboratory [facility] Prothrombin Time INR [LAB.AMB] Time Frame: 10/23/17, Facility: [facility], Location: Laboratory [facility] Discharge Disposition: TRANSFER TO SNF/ECF
[2017-10-22 12:42] LABS: INR 1.3 (<1.2); Prothrombin Time 12.6 sec (9.0-12.0)
[2017-10-22 13:38] VITALS: BP 110/51; TEMP 98.7
[2017-10-22 15:07] VITALS: PULSE 74
[2017-10-22 16:34] LABS: Glucose,Whole Blood 258 mg/dL (75-99)
[2017-10-22] MEDS ORDERED: WARFARIN 5 MG TAB PO ONE (18:00)
--- NOTE | 2017-10-22 18:55 | PN ---
PROGRESS NOTE Mrs. San is in sinus rhythm today. She is doing fairly well. She is not very motivated to do incentive spirometry. However, there is some progress compared to yesterday. Vital signs are good. S1, S2 heard normally. Short systolic murmur noted. Lungs are clear. Abdomen and lower exam is unchanged. PLAN: Continue current medical regimen, incentive spirometry and pulmonary toilet. MMODL / IJN: [id number] /
== END 2017-10-22 17:19 | DRG 219 ==
LOC: 2ORMAIN 06:00 → 6ICU 15:39 → 6SEL 10-18 18:09
PROVIDERS: ADMIT Thoracic Surgery (Cardiothoracic Vascular Surgery); ATTEND Thoracic Surgery (Cardiothoracic Vascular Surgery)
PROC: 5A1221Z Performance of Cardiac Output, Continuous (ICD-10-PCS; 2017-10-13)
PROC: B24BZZ4 Ultrasonography of Heart with Aorta, Transesophageal (ICD-10-PCS; 2017-10-13)
PROC: 302 Administration, Circulatory, Transfusion (ICD-10-PCS; 2017-10-13)
PROC: 30240N1 Transfusion of Nonautologous Red Blood Cells into Central Vein, Open Approach (ICD-10-PCS; 2017-10-13)
PROC: 30240R1 Transfusion of Nonautologous Platelets into Central Vein, Open Approach (ICD-10-PCS; 2017-10-13)
PROC: 02RF08Z Replacement of Aortic Valve with Zooplastic Tissue, Open Approach (ICD-10-PCS; principal; 2017-10-13 08:00)
PROC: 02UG0JZ Supplement Mitral Valve with Synthetic Substitute, Open Approach (ICD-10-PCS; 2017-10-13 08:00)
PROC: 02L70CK Occlusion of Left Atrial Appendage with Extraluminal Device, Open Approach (ICD-10-PCS; 2017-10-13 08:00)
DX: I08.0 Rheumatic disorders of both mitral and aortic valves (principal); I50.23 Acute on chronic systolic (congestive) heart failure; K72.00 Acute and subacute hepatic failure without coma; J96.90 Respiratory failure, unspecified, unspecified whether with hypoxia or hypercapnia; I47.1 Supraventricular tachycardia; I48.92 Unspecified atrial flutter; D69.6 Thrombocytopenia, unspecified; I48.0 Paroxysmal atrial fibrillation; D62 Acute posthemorrhagic anemia; J98.11 Atelectasis; I95.2 Hypotension due to drugs; I11.0 Hypertensive heart disease with heart failure; J44.9 Chronic obstructive pulmonary disease, unspecified; K75.89 Other specified inflammatory liver diseases; M06.9 Rheumatoid arthritis, unspecified; K76.0 Fatty (change of) liver, not elsewhere classified; T44.7X5A Adverse effect of beta-adrenoreceptor antagonists, initial encounter; T46.2X5A Adverse effect of other antidysrhythmic drugs, initial encounter; E03.9 Hypothyroidism, unspecified; F17.201 Nicotine dependence, unspecified, in remission; K21.9 Gastro-esophageal reflux disease without esophagitis; F41.9 Anxiety disorder, unspecified; M19.91 Primary osteoarthritis, unspecified site; K57.90 Diverticulosis of intestine, part unspecified, without perforation or abscess without bleeding; R73.03 Prediabetes; Z79.82 Long term (current) use of aspirin; Z79.51 Long term (current) use of inhaled steroids; Z79.899 Other long term (current) drug therapy; Z90.710 Acquired absence of both cervix and uterus; Z96.653 Presence of artificial knee joint, bilateral; Z96.642 Presence of left artificial hip joint; Z98.42 Cataract extraction status, left eye; Z98.41 Cataract extraction status, right eye; Z96.1 Presence of intraocular lens; Z87.440 Personal history of urinary (tract) infections; Z87.442 Personal history of urinary calculi; Z96.611 Presence of right artificial shoulder joint; Z88.8 Allergy status to other drugs, medicaments and biological substances; Z82.49 Family history of ischemic heart disease and other diseases of the circulatory system
CPT/HCPCS: 36415; 71045; 71046; 80048; 80053; 82150; 82330; 82805; 83036; 83690; 83735; 84100; 84132; 85025; 85027; 85520; 85610; 85730; 86022; 86850; 86891; 86900; 86901; 86920; 88305; 94002; 94003; 94640; 94760

== ENCOUNTER 2017-11-27 21:27 | Inpatient (IN) | payer MEDICARE, OTHER ==
--- NOTE | 2017-11-27 22:01 | ED ---
General Adult HPI - General Chief complaint: Shortness of Breath Stated complaint: SOB Time Seen by Provider: 11/27/17 21:32 Source: patient, EMS, RN notes reviewed, old records reviewed Mode of arrival: EMS Limitations: no limitations - History of Present Illness Initial comments: 72-year-old female presents with 2 days of worsening dyspnea. Patient is 6 weeks postop open-heart surgery for valve repair and replacement. She has been taking her medications as prescribed which includes 20 or 40 mg of Lasix daily. She has had worsening exertional dyspnea. Denies chest pain. Denies cough. Denies fever. Patient has had worsening lower extremity edema over the past several days as well although she has had chronic edema in the bilateral lower extremities. She denies cough or URI symptoms. Denies abdominal pain. Denies nausea vomiting or diarrhea. - Related Data Home Medications Medication Instructions Recorded Confirmed Ascorbic Acid [Vitamin C] 500 mg PO DAILY 01/22/14 11/27/17 Cholecalciferol [Vitamin D3] 2,000 units PO DAILY 01/22/14 11/27/17 Furosemide [Lasix] 20 mg PO DAILY 06/18/16 11/27/17 Albuterol Sulfate [Proair Hfa] 1 - 2 puff INHALATION RT-Q6H PRN 09/15/17 Fluticasone/Salmeterol [Advair Hfa 1 - 2 puff INHALATION RT-BID 09/15/17 230-21 Mcg Inhaler] Ipratropium/Albuterol Sulfate 1 puff INHALATION RT-QID PRN 09/29/17 11/27/17 [Combivent Respimat Inhaler] Ferrous Sulfate [Iron (65 MG 325 mg PO DAILY 10/10/17 11/27/17 Elemental)] ALPRAZolam [Xanax] 0.25 mg PO BID PRN 11/27/17 11/27/17 Amiodarone [Cordarone] 200 mg PO DAILY 11/27/17 11/27/17 HYDROcodone/APAP 10-325MG [[place] 1 tab PO Q6H PRN 11/27/17 11/27/17 10-325] Levothyroxine Sodium [Synthroid] 150 mcg PO DAILY 11/27/17 11/27/17 Metoprolol Tartrate [Lopressor] 25 mg PO DAILY 11/27/17 11/27/17 Warfarin Sodium [Coumadin] 5 mg PO MOWEFRSA 11/27/17 11/27/17 Allergies Allergy/AdvReac Type Severity Reaction Status Date / Time lisinopril Allergy Unknown Verified 11/27/17 22:02 Review of Systems ROS Statement: Those systems with pertinent positive or pertinent negative responses have been documented in the HPI. ROS Other: All systems not noted in ROS Statement are negative. Past Medical History Past Medical History: COPD, GERD/Reflux, Renal Disease, Rheumatoid Arthritis (RA ), Thyroid Disorder Additional Past Medical History / Comment(s): Nephrolithiasis, rheumatoid arthritis several joints, cardiac murmur. diverticular dx, recent UTI/ completed ABX. Episode of nonsustained ventricle tachycardia, SOB w/exertion History of Any Multi-Drug Resistant Organisms: None Reported Past Surgical History: Coronary Bypass/CABG, Heart Catheterization, Hysterectomy , Joint Replacement, Orthopedic Surgery Additional Past Surgical History / Comment(s): Recent MATTHEW, ti total knees arthroplasty,lt hip arthroplasty, goiter removed 1963, partial thyroidectomy, cataracts removed with lens implants, REVERSE TOTAL RIGHT SHOULDER; Rotator cuff R shoulder, cervical fusion/injections, colonoscopy. Past Anesthesia/Blood Transfusion Reactions: No Reported Reaction Past Psychological History: No Psychological Hx Reported Smoking Status: Former smoker Past Alcohol Use History: None Reported Past Drug Use History: None Reported - Past Family History Father Additional Family Medical History / Comment(s): in his 80's of a mi Mother Additional Family Medical History / Comment(s): age 88 in [place] [facility] pt not sure what she from. hx smoking. General Exam Limitations: no limitations General appearance: alert, in no apparent distress Head exam: Present: atraumatic, normocephalic Eye exam: Present: normal appearance, PERRL ENT exam: Present: normal exam Neck exam: Present: normal inspection. Absent: tenderness, meningismus Respiratory exam: Present: rales (Bilateral lower rales), decreased breath sounds (Decreased breath sounds, right lung base). Absent: wheezes Cardiovascular Exam: Present: regular rate, normal rhythm, systolic murmur GI/Abdominal exam: Present: soft. Absent: distended, tenderness Extremities exam: Present: normal capillary refill, pedal edema (2+ pitting edema) Neurological exam: Present: alert, oriented X3, CN II-XII intact. Absent: motor sensory deficit Psychiatric exam: Present: normal affect, normal mood Skin exam: Present: warm, dry, intact. Absent: cyanosis, diaphoretic Course Vital Signs 11/27/17 11/27/17 11/27/17 21:37 21:39 22:30 Temperature 98.3 F Pulse Rate 99 92 Respiratory 24 24 22 Rate Blood Pressure 136/63 105/55 O2 Sat by Pulse 97 96 Oximetry EKG Findings - EKG Comments: EKG Findings:: EKG, sinus rhythm with first-degree AV block, occasional PVC, T- wave abnormality in the lateral precordium, ventricular rate 100, TX interval 248, QRS duration 90, QTC 438 Medical Decision Making - Medical Decision Making 72-year-old female presenting with 2 days worsening dyspnea. On exam patient has decreased lung sounds at the bases with Rales, and significant peripheral edema. Laboratory studies reveal normal white blood skull, hemoglobin is 7.3 and patient had recent blood work which showed hemoglobin of 8.6. INR is supratherapeutic at greater than 10. Chest x-ray shows pleural effusion and pulmonary edema. Troponin negative, BNP is elevated at 4400. Hemoccult is negative, no signs of hemorrhage. INR will be treated with 2.5 mg of oral vitamin K. She is given IV push Lasix and will be continued on this. Repeat laboratory studies will be obtained in the morning. I did discuss case with Dr. Olson will accept admission. - Lab Data Result diagrams: 11/27/17 22:15 11/27/17 22:15 Lab Results 11/27/17 11/27/17 11/27/17 Range/Units 22:15 22:15 22:15 WBC 7.0 (3.8-10.6) k/uL RBC 2.91 L (3.80-5.40) m/uL Hgb 7.3 L (11.4-16.0) gm/dL Hct 23.5 L (34.0-46.0) % MCV 80.9 D (80.0-100.0) fL MCH 25.2 (25.0-35.0) pg MCHC 31.1 (31.0-37.0) g/dL RDW 16.4 H (11.5-15.5) % Plt Count 248 (150-450) k/uL Neutrophils % 71 % Lymphocytes % 18 % Monocytes % 6 % Eosinophils % 2 % Basophils % 0 % Neutrophils # 5.0 (1.3-7.7) k/uL Lymphocytes # 1.3 (1.0-4.8) k/uL Monocytes # 0.4 (0-1.0) k/uL Eosinophils # 0.1 (0-0.7) k/uL Basophils # 0.0 (0-0.2) k/uL Hypochromasia Marked Poikilocytosis Moderate Anisocytosis Slight PT (9.0-12.0) sec INR (<1.2) APTT (22.0-30.0) sec Sodium 139 (137-145) mmol/L Potassium 3.5 (3.5-5.1) mmol/L Chloride 97 L (98-107) mmol/L Carbon Dioxide 30 (22-30) mmol/L Anion Gap 12 mmol/L BUN 19 H (7-17) mg/dL Creatinine 0.58 (0.52-1.04) mg/dL Est GFR (CKD-EPI)AfAm >90 (>60 ml/min/1.73 sqM) Est GFR (CKD-EPI)NonAf >90 (>60 ml/min/1.73 sqM) Glucose 146 H (74-99) mg/dL Calcium 8.9 (8.4-10.2) mg/dL Magnesium 2.0 (1.6-2.3) mg/dL Total Bilirubin 0.8 (0.2-1.3) mg/dL AST 24 (14-36) U/L ALT 21 (9-52) U/L Alkaline Phosphatase 111 (38-126) U/L Total Creatine Kinase 39 (30-135) U/L CK-MB (CK-2) 0.9 (0.0-2.4) ng/mL CK-MB (CK-2) Rel Index 2.3 Troponin I <0.012 (0.000-0.034) ng/mL NT-Pro-B Natriuret Pep pg/mL Total Protein 6.6 (6.3-8.2) g/dL Albumin 3.3 L (3.5-5.0) g/dL Stool Occult Blood (Negative) 11/27/17 11/27/17 11/27/17 Range/Units 22:15 22:15 23:15 WBC (3.8-10.6) k/uL RBC (3.80-5.40) m/uL Hgb (11.4-16.0) gm/dL Hct (34.0-46.0) % MCV (80.0-100.0) fL MCH (25.0-35.0) pg MCHC (31.0-37.0) g/dL RDW (11.5-15.5) % Plt Count (150-450) k/uL Neutrophils % % Lymphocytes % % Monocytes % % Eosinophils % % Basophils % % Neutrophils # (1.3-7.7) k/uL Lymphocytes # (1.0-4.8) k/uL Monocytes # (0-1.0) k/uL Eosinophils # (0-0.7) k/uL Basophils # (0-0.2) k/uL Hypochromasia Poikilocytosis Anisocytosis PT 113.0 H (9.0-12.0) sec INR >10.0 H* (<1.2) APTT 65.3 H (22.0-30.0) sec Sodium (137-145) mmol/L Potassium (3.5-5.1) mmol/L Chloride (98-107) mmol/L Carbon Dioxide (22-30) mmol/L Anion Gap mmol/L BUN (7-17) mg/dL Creatinine (0.52-1.04) mg/dL Est GFR (CKD-EPI)AfAm (>60 ml/min/1.73 sqM) Est GFR (CKD-EPI)NonAf (>60 ml/min/1.73 sqM) Glucose (74-99) mg/dL Calcium (8.4-10.2) mg/dL Magnesium (1.6-2.3) mg/dL Total Bilirubin (0.2-1.3) mg/dL AST (14-36) U/L ALT (9-52) U/L Alkaline Phosphatase (38-126) U/L Total Creatine Kinase (30-135) U/L CK-MB (CK-2) (0.0-2.4) ng/mL CK-MB (CK-2) Rel Index Troponin I (0.000-0.034) ng/mL NT-Pro-B Natriuret Pep 4460 pg/mL Total Protein (6.3-8.2) g/dL Albumin (3.5-5.0) g/dL Stool Occult Blood Negative (Negative) Critical Care Time Critical Care Time: Yes Total Critical Care Time: 35 Disposition Clinical Impression: Congestive heart failure, Supratherapeutic INR Disposition: ADMITTED IP TO THIS [facility] Condition: Serious Referrals: Olya Olson MD [Primary Care Provider] - 1-2 days Decision to Admit Reason: Admit from EC Decision Date: 11/28/17 Decision Time: 00:04
[2017-11-27 22:28] LABS: Anisocytosis Slight; Basophils % (A) 0 %; Eosinophils # (A) 0.1 k/uL (0-0.7); Eosinophils % (A) 2 %; HCT 23.5 % (34.0-46.0); HGB 7.3 gm/dL (11.4-16.0); Hypochromasia Marked; Lymphocytes # (A) 1.3 k/uL (1.0-4.8); Lymphocytes % (A) 18 %; MCH 25.2 pg (25.0-35.0); MCHC 31.1 g/dL (31.0-37.0); Mean Platelet Volume 8.1; Monocytes # (A) 0.4 k/uL (0-1.0); Monocytes % (A) 6 %; Neutrophils % (A) 71 %; Platelet Count 248 k/uL (150-450); Poikilocytosis Moderate; RBC 2.91 m/uL (3.80-5.40); RDW 16.4 % (11.5-15.5)
[2017-11-27 22:31] LABS: MCV 80.9 fL (80.0-100.0)
[2017-11-27 22:43] LABS: INR >10.0 (<1.2)
[2017-11-27 22:46] LABS: Creatine Kinase 39 U/L (30-135)
[2017-11-27 22:47] LABS: Partial Thromboplastin Time 65.3 sec (22.0-30.0)
[2017-11-27 22:49] LABS: Albumin 3.3 g/dL (3.5-5.0); Blood Urea Nitrogen 19 mg/dL (7-17); Carbon Dioxide 30 mmol/L (22-30); Chloride 97 mmol/L (98-107); Glucose 146 mg/dL (74-99); Total Bilirubin 0.8 mg/dL (0.2-1.3); Total Protein 6.6 g/dL (6.3-8.2)
--- NOTE | 2017-11-27 22:52 | XR ---
EXAMINATION: XR chest 2V DATE AND TIME: 11/27/2017 10:21 PM ORDERING PROVIDER: Milton Jeff MD CLINICAL INDICATION: difficulty breathing TECHNIQUE: PA and lateral COMPARISON: 11/14/2017 DESCRIPTION: Sternal sutures and mediastinal clips and valve prosthesis and EKG leads evident. The previously seen prominent left pleural effusion appears highly increased since the prior study. There continues to be silhouetting of the pulmonary vasculature by a fine reticular pattern of increa sed density bilaterally consistent with interstitial phase pulmonary edema, mild in degree and likely cardiogenic etiology given the moderately enlarged cardiac silhouette. No abnormal gas collections. IMPRESSION: Mildly increased left pleural effusion when compared the prior study. Otherwise, similar abnormal findings.
[2017-11-27 22:59] LABS: Creatine Kinase MB 0.9 ng/mL (0.0-2.4); Troponin I <0.012 ng/mL (0.000-0.034)
[2017-11-27 23:06] LABS: ALT 21 U/L (9-52); AST 24 U/L (14-36); Alkaline Phosphatase 111 U/L (38-126); Anion Gap 12 mmol/L; Calcium 8.9 mg/dL (8.4-10.2); Potassium 3.5 mmol/L (3.5-5.1); Sodium 139 mmol/L (137-145)
[2017-11-27] MEDS ORDERED: FUROSEMIDE 10 MG/ML 4 ML VIAL IV STA (23:21)
[2017-11-27] MEDS ORDERED: NALOXONE 0.4 MG/ML 1 ML VIAL IV PRN (23:52)
[2017-11-27] MEDS ORDERED: PHYTONADIONE ORAL 5 MG/5 ML ORAL.SYRG PO STA (23:58)
[2017-11-28] MEDS: LEVOTHYROXINE 75 MCG TAB PO SCH (06:12)
[2017-11-28 07:01] LABS: Prothrombin Time 81.4 sec (9.0-12.0)
[2017-11-28 07:02] LABS: ALT 21 U/L (9-52); AST 16 U/L (14-36); Albumin 2.9 g/dL (3.5-5.0); Alkaline Phosphatase 94 U/L (38-126); Anion Gap 8 mmol/L; Blood Urea Nitrogen 13 mg/dL (7-17); Calcium 8.4 mg/dL (8.4-10.2); Carbon Dioxide 29 mmol/L (22-30); Chloride 101 mmol/L (98-107); Glucose 105 mg/dL (74-99); Potassium 3.3 mmol/L (3.5-5.1); Sodium 138 mmol/L (137-145); Total Bilirubin 0.8 mg/dL (0.2-1.3)
[2017-11-28 07:04] LABS: INR 8.8 (<1.2)
[2017-11-28 07:07] LABS: Anisocytosis Slight; Basophils % (A) 1 %; Eosinophils # (A) 0.1 k/uL (0-0.7); Eosinophils % (A) 2 %; HCT 21.7 % (34.0-46.0); Hypochromasia Marked; Lymphocytes # (A) 1.5 k/uL (1.0-4.8); Lymphocytes % (A) 25 %; MCH 24.1 pg (25.0-35.0); MCHC 29.7 g/dL (31.0-37.0); Monocytes # (A) 0.5 k/uL (0-1.0); Monocytes % (A) 9 %; Neutrophils # (A) 3.5 k/uL (1.3-7.7); Neutrophils % (A) 60 %; Platelet Count 219 k/uL (150-450); Poikilocytosis Slight; RBC 2.68 m/uL (3.80-5.40); RDW 16.9 % (11.5-15.5); WBC 5.9 k/uL (3.8-10.6)
[2017-11-28 07:10] LABS: HGB 6.5 gm/dL (11.4-16.0)
[2017-11-28] MEDS ORDERED: ALPRAZolam 0.25 MG TAB PO PRN (08:19)
[2017-11-28] MEDS ORDERED: ALBUTEROL NEBULIZED 2.5 MG/3 ML INHALATION PRN (08:19)
[2017-11-28] MEDS ORDERED: PHYTONADIONE ORAL 5 MG/5 ML ORAL.SYRG PO STA (08:50)
[2017-11-28] MEDS ORDERED: POTASSIUM CHLORIDE ER 20 MEQ TAB.ER PO STA (08:50)
[2017-11-28] MEDS ORDERED: AMIODARONE 200 MG TAB PO SCH (09:00)
--- NOTE | 2017-11-28 09:52 | CONS ---
MAGDALENA Vu is a 72-year-old lady with history of rheumatoid arthritis, COPD, aortic stenosis, status post aortic valve replacement, mitral regurgitation, status post mitral valve repair and chronic atrial fibrillation. Comes to hospital with progressively worsening shortness of breath and leg edema. Cardiology had been consulted for the same. She denies chest pain. She was severely anemic on her initial presentation and is currently undergoing blood transfusion. Hemoglobin is 6.5. Her INR was more than 10 when she first came, received vitamin K, it has come down to 8.8. She is not actively bleeding from anywhere, does not have melanotic stools and patient has had problems with anemia, even at her last admission in October of 2017. Patient has atrial fibrillation and has had cardioversion. PAST MEDICAL HISTORY: Significant for COPD, rheumatoid arthritis, nephrolithiasis, hysterectomy, joint replacement, status post aortic valve replacement and status post mitral valve repair. MEDICATIONS: Patient is currently on Coumadin, Lopressor 25 mg daily, Synthroid, Combivent, [place], Lasix, Advair, amiodarone, and ProAir. ALLERGIES: Allergic to LISINOPRIL. FAMILY HISTORY: Negative for premature coronary artery disease. SOCIAL HISTORY: Negative for current smoking, EtOH abuse, or drug abuse. REVIEW OF SYSTEMS: HEENT is unremarkable. CARDIAC: As described above. RESPIRATORY: Short of breath. GI: Negative. GENITOURINARY: Negative. ALLERGY/IMMUNOLOGY: Negative. SKIN: Negative. MUSCULOSKELETAL: Negative. ENDOCRINE: Negative. DERM: Negative. CONSTITUTIONAL: Negative. ONCOLOGICAL: Negative. Rest of the system review is not relevant. PHYSICAL EXAM: Patient is comfortable at rest. Afebrile. Vital signs are stable. There is no jugular venous distention. Carotid upstroke is normal. There is no bruit. Chest exam reveals good air entry bilaterally. Heart exam reveals first and second heart sounds. A grade 4 x 6 systolic murmur at the apex. Abdomen is soft. Exam of extremities reveals bilateral pitting edema. LABS: Show a hemoglobin of 6.5, INR is 8.8, potassium is 3.3, creatinine is 0.5. Stool occult blood is negative. EKG shows sinus rhythm, PACs and nonspecific ST-T wave changes. ASSESSMENT: 1. Shortness of breath due to a combination of problems including congestive heart failure, valvular heart disease, and anemia. 2. Severe symptomatic anemia. 3. Coagulopathy. 4. Status post aortic valve replacement and status post mitral valve repair. 5. Chronic atrial fibrillation, status post cardioversion. PLAN: I am going to stop the amiodarone that she is on given the coagulopathy. Continue the Lopressor. Hold the Coumadin. Agree with the blood transfusion. If necessary, we can give another dose of vitamin K. Patient had an echo. I will review the results once they are available. MMVIOLETL / IJN: [id number] /
[2017-11-28] MEDS: FUROSEMIDE 10 MG/ML 4 ML VIAL IV SCH ×2 (09:58→21:10)
[2017-11-28] MEDS: ASCORBIC ACID 500 MG TAB PO SCH (09:58)
[2017-11-28] MEDS: FERROUS SULFATE 325 MG TAB PO SCH (09:58)
[2017-11-28] MEDS: CHOLECALCIFEROL 1,000 UNIT TAB PO SCH (09:59)
[2017-11-28] MEDS: METOPROLOL TARTRATE 25 MG TAB PO SCH (09:59)
--- NOTE | 2017-11-28 11:47 | P.HPIM ---
History of Present Illness H&P Date: 11/28/17 Chief Complaint: Shortness of breath and lower extremity edema This is a 72-year-old female with past medical history of aortic valve replacement and mitral valve repair in 10/13/2017. She also has a history of rheumatoid arthritis, COPD, hypothyroidism, iron deficiency anemia, congestive heart failure, diverticulosis and paroxysmal atrial fibrillation. Patient presents to the hospital with complaining of worsening shortness of breath and bilateral leg edema. She's found have evidence of congestive heart failure with chest x-ray showing mildly increased left pleural effusion. BNP elevated at 4460. Patient started on IV Lasix in the emergency room. Cardiology consulted. Patient reporting improvement in her lower extremity edema. Patient also had significant anemia with a hemoglobin of 7.3 down to 6.5. She' s receiving a unit of blood. Stool for occult blood was negative. INR sniffy elevated at greater than 10. She received a dose of vitamin K 2.5 mg. And then repeated INR is 8.8. She's receiving another dose of vitamin K 2.5 mg by mouth now. Patient denies any blood in her stools. Occasionally she'll have a black stool due to being on iron. But she reports that there is no new changes in her stools. Patient denies chest pain. Denies any nausea or vomiting. Denies any abdominal pain or bowel movement changes. Denies any urinary symptoms. Patient reports her last colonoscopy was about 5 years ago she was told no significant abnormality. She does not think she ever had a EGD. Patient takes Coumadin for her atrial fibrillation. Review of Systems Please refer to HPI otherwise unremarkable Past Medical History Past Medical History: Coronary Artery Disease (CAD), COPD, GERD/Reflux, Osteoarthritis (OA), Renal Disease, Rheumatoid Arthritis (RA), Supraventricular Tachycardia (SVT), Thyroid Disorder Additional Past Medical History / Comment(s): Nephrolithiasis, rheumatoid arthritis several joints, cardiac murmur. diverticular dx, recent UTI/ completed ABX. Episode of nonsustained ventricle tachycardia, SOB w/exertion History of Any Multi-Drug Resistant Organisms: None Reported Past Surgical History: Coronary Bypass/CABG, Heart Catheterization, Hysterectomy , Joint Replacement, Orthopedic Surgery Additional Past Surgical History / Comment(s): Recent MATTHEW, ti total knees arthroplasty,lt hip arthroplasty, goiter removed 1962, partial thyroidectomy, cataracts removed with lens implants, REVERSE TOTAL RIGHT SHOULDER; Rotator cuff R shoulder, cervical fusion/injections, colonoscopy. CABAG at [facility] 10/13/17 Prosthetic Aortic valve and mitral valve repair. Past Anesthesia/Blood Transfusion Reactions: No Reported Reaction Past Psychological History: No Psychological Hx Reported Additional Psychological History / Comment(s): Pt resides with her spouse in an apartment with no stairs. She drives. She uses no assistive devices.HAS A WALKER(IF NEEDED) Smoking Status: Former smoker Past Alcohol Use History: None Reported Additional Past Alcohol Use History / Comment(s): Drinks 2 glasses of wine per week, quit smoking @age of 43, smoked 1ppd for 30 yrs. Past Drug Use History: None Reported - Past Family History Father Additional Family Medical History / Comment(s): in his 80's of a mi Mother Additional Family Medical History / Comment(s): age 88 in long term pt not sure what she from. hx smoking. Medications and Allergies Home Medications Medication Instructions Recorded Confirmed Type Ascorbic Acid [Vitamin C] 500 mg PO DAILY 01/22/14 11/27/17 History Cholecalciferol [Vitamin D3] 2,000 units PO DAILY 01/22/14 11/27/17 History Furosemide [Lasix] 20 mg PO DAILY 06/18/16 11/27/17 History Albuterol Sulfate [Proair Hfa] 1 - 2 puff INHALATION RT-Q6H PRN 09/15/17 History Fluticasone/Salmeterol [Advair Hfa 1 - 2 puff INHALATION RT-BID 09/15/17 History 230-21 Mcg Inhaler] Ipratropium/Albuterol Sulfate 1 puff INHALATION RT-QID PRN 09/29/17 11/27/17 History [Combivent Respimat Inhaler] Ferrous Sulfate [Iron (65 MG 325 mg PO DAILY 10/10/17 11/27/17 History Elemental)] ALPRAZolam [Xanax] 0.25 mg PO BID PRN 11/27/17 11/27/17 History Amiodarone [Cordarone] 200 mg PO DAILY 11/27/17 11/27/17 History HYDROcodone/APAP 10-325MG [[place] 1 tab PO Q6H PRN 11/27/17 11/27/17 History 10-325] Levothyroxine Sodium [Synthroid] 150 mcg PO DAILY 11/27/17 11/27/17 History Metoprolol Tartrate [Lopressor] 25 mg PO DAILY 11/27/17 11/27/17 History Warfarin Sodium [Coumadin] 5 mg PO MOWEFRSA 11/27/17 11/27/17 History Allergies Allergy/AdvReac Type Severity Reaction Status Date / Time lisinopril Allergy Unknown Verified 11/27/17 22:02 Physical Exam Vitals: Vital Signs Temp Pulse Pulse Resp BP BP Pulse Ox 11/28/17 09:26 98.4 F 88 18 112/67 100 11/28/17 03:31 98.6 F 90 18 105/61 97 11/28/17 03:20 90 20 11/28/17 00:56 98.6 F 98 18 105/61 97 11/28/17 00:23 98.3 F 94 18 97/53 100 11/27/17 23:00 92 20 116/55 100 11/27/17 22:30 92 22 105/55 96 11/27/17 21:39 24 11/27/17 21:37 98.3 F 99 24 136/63 97 Intake and Output 11/27/17 11/28/17 11/28/17 22:59 06:59 14:59 Intake Total 125 Output Total 275 Balance -150 Intake: Oral 125 Output: Urine 275 Other: Voiding Method Bedside Commode Weight 57.606 kg 57.1 kg Head normocephalic Neck supple Lungs crackles at the bases bilaterally Heart regular rate and rhythm S1-S2, no rub or gallop positive murmur Abdomen is soft nontender nondistended positive bowel sounds no hepatosplenomegaly Extremities bilateral lower extremity +1 pitting edema Neuro alert and orientated to 3 Results CBC & Chem 7: 11/28/17 06:14 11/28/17 06:14 Labs: Abnormal Lab Results - Last 24 Hours (Table) 11/27/17 11/27/17 11/27/17 Range/Units 22:15 22:15 22:15 RBC 2.91 L (3.80-5.40) m/uL Hgb 7.3 L (11.4-16.0) gm/dL Hct 23.5 L (34.0-46.0) % MCH (25.0-35.0) pg MCHC (31.0-37.0) g/dL RDW 16.4 H (11.5-15.5) % PT 113.0 H (9.0-12.0) sec INR >10.0 H* (<1.2) APTT 65.3 H (22.0-30.0) sec Potassium (3.5-5.1) mmol/L Chloride 97 L (98-107) mmol/L BUN 19 H (7-17) mg/dL Glucose 146 H (74-99) mg/dL Total Protein (6.3-8.2) g/dL Albumin 3.3 L (3.5-5.0) g/dL Crossmatch 11/27/17 11/28/17 11/28/17 Range/Units 22:15 06:14 06:14 RBC 2.68 L (3.80-5.40) m/uL Hgb 6.5 L* (11.4-16.0) gm/dL Hct 21.7 L (34.0-46.0) % MCH 24.1 L (25.0-35.0) pg MCHC 29.7 L (31.0-37.0) g/dL RDW 16.9 H (11.5-15.5) % PT 81.4 H (9.0-12.0) sec INR 8.8 H* (<1.2) APTT (22.0-30.0) sec Potassium (3.5-5.1) mmol/L Chloride (98-107) mmol/L BUN (7-17) mg/dL Glucose (74-99) mg/dL Total Protein (6.3-8.2) g/dL Albumin (3.5-5.0) g/dL Crossmatch See Detail 11/28/17 Range/Units 06:14 RBC (3.80-5.40) m/uL Hgb (11.4-16.0) gm/dL Hct (34.0-46.0) % MCH (25.0-35.0) pg MCHC (31.0-37.0) g/dL RDW (11.5-15.5) % PT (9.0-12.0) sec INR (<1.2) APTT (22.0-30.0) sec Potassium 3.3 L (3.5-5.1) mmol/L Chloride (98-107) mmol/L BUN (7-17) mg/dL Glucose 105 H (74-99) mg/dL Total Protein 6.0 L (6.3-8.2) g/dL Albumin 2.9 L (3.5-5.0) g/dL Crossmatch Thrombosis Risk Factor Assmnt - Choose All That Apply Each Factor Represents 1 point: Swollen legs (current) Other Risk Factors: Yes Each Risk Factor Represents 2 Points: Age 61-74 years Thrombosis Risk Factor Assessment Total Risk Factor Score: 3 Thrombosis Risk Factor Assessment Level: Moderate Risk Assessment and Plan Assessment: 1. Acute on chronic systolic congestive heart failure exacerbation: Continue with IV Lasix. Echo pending. Previous EF was 35-40% in June 2014. Cardiology following. Patient had elevated BNP on admission and chest x-ray showing mildly increased left pleural effusion 2. Dyspnea multifactorial likely related to her CHF exacerbation and anemia 3. Symptomatic anemia with coagulopathy: Hemoglobin down to 6.5. Stool for occult blood negative. Patient is receiving 1 unit of blood. Repeat CBC in a.m. Patient has a known history of iron deficiency anemia. She also had anemia at the time of discharge from her last hospitalization in October with expected postop anemia after her valve replaced 4. Coagulopathy: INR greater than 10 on admission. Patient has received 2.5 mg by mouth of vitamin K in ER. INR still elevated at 8.8 we'll give another dose of vitamin K 2.5 5. Hypokalemia. Will give patient potassium supplement. 6. Status post aortic valve replacement and mitral valve repair 10/13/2017 7. Chronic atrial fibrillation status post cardioversion had been on Coumadin for anticoagulation. Cardiology is discontinuing the amiodarone. Continue metoprolol. Coumadin on hold. 8. History of iron deficiency anemia. Resume her iron supplement. Check iron studies 9. Hypothyroidism continue Synthroid 10. History of COPD stable continue her Symbicort and DuoNeb's GI prophylaxis Protonix Time with Patient: Greater than 30 (Greater than 50% of the total time spent in counseling and coordination of care.I performed an examination of the patient and discussed their management with the physician Doping Supervisor. I have reviewed the Physician Doping Supervisor's notes and agree with the documented findings and plan of care)
[2017-11-28] MEDS: IPRATROPIUM-ALBUTEROL 3 ML NEB INHALATION PRN ×3 (11:55→19:53)
--- NOTE | 2017-11-28 12:02 | ECHOF ---
Referral Reason:chf MEASUREMENTS -------- HEIGHT: 152.4 cm WEIGHT: 56.7 kg BP: 105/61 RVIDd: 3.2 cm (< 3.3) IVSd: 1.3 cm (0.6 - 1.1) LVIDd: 3.7 cm (3.9 - 5.3) LVPWd: 1.2 cm (0.6 - 1.1) IVSs: 1.5 cm LVIDs: 3.4 cm LVPWs: 1.5 cm LAESV Index (A-L): 51.93 ml/m Ao Diam: 2.5 cm (2.0 - 3.7) AV Cusp: 1.3 cm (1.5 - 2.6) LA Diam: 4.1 cm (2.7 - 3.8) MV EXCURSION: 15.271 mm (> 18.000) MV EF SLOPE: 47 mm/s (70 - 150) EPSS: 0.5 cm MV E Nicholas: 1.76 m/s MV DecT: 219 ms MV A Nicholas: 0.37 m/s MV E/A Ratio: 4.77 AV maxP.94 mmHg AV meanP.10 mmHg RAP: 5.00 mmHg RVSP: 33.48 mmHg FINDINGS -------- Sinus rhythm. This was a technically good study. Pt had bioprosthetic aortic valve and mitral valve repair done on 10/14/2017 The left ventricular size is normal. There is mild concentric left ventricular hypertrophy. Overa ll left ventricular systolic function is mild-moderately impaired with, an EF between 40 - 45 %. Th ere is paradoxical/dysynergic septal motion consistent with post-operative status. Inferior basal H ypokinesis The right ventricle is normal in size and function. LA is severely dilated >40 ml/m2 The right atrium is normal in size. Peak/mean gradient across the Aortic Valve is 27.94mmHg / 17.10mmHg. Normally functioning bioprosth etic valve. There is trace mitral regurgitation. MV Repair. Mild tricuspid regurgitation present. The right ventricular systolic pressure, as measured by Doppl er, is 33.48mmHg. Pulmonic valve appears structurally normal. The aortic root size is normal. Normal inferior vena cava with normal inspiratory collapse consistent with estimated right atrial pre ssure of 5 mmHg. Large Pleural Effusion. CONCLUSIONS -------- 1. Sinus rhythm. 2. This was a technically good study. Pt had bioprosthetic aortic valve and mitral valve repair done on 10/14/2017 3. The left ventricular size is normal. 4. There is mild concentric left ventricular hypertrophy. 5. Overall left ventricular systolic function is mild-moderately impaired with, an EF between 40 - 45 %. 6. There is paradoxical/dysynergic septal motion consistent with post-operative status. 7. Inferior basal Hypokinesis 8. The right ventricle is normal in size and function. 9. LA is severely dilated >40 ml/m2 10. The right atrium is normal in size. 11. Peak/mean gradient across the Aortic Valve is 27.94mmHg / 17.10mmHg. 12. Normally functioning bioprosthetic valve. 13. There is trace mitral regurgitation. 14. MV Repair. 15. Mild tricuspid regurgitation present. 16. The right ventricular systolic pressure, as measured by Doppler, is 33.48mmHg. 17. Pulmonic valve appears structurally normal. 18. The aortic root size is normal. 19. Normal inferior vena cava with normal inspiratory collapse consistent with estimated right atrial pressure of 5 mmHg. 20. Large Pleural Effusion. SOLID WASTE DISPOSAL MANAGER: Lorin Bo RDCS
[2017-11-28 14:42] VITALS: BMI 24.5
[2017-11-28 15:38] LABS: Iron Saturation 5.4 (12.00-45.00)
[2017-11-28] MEDS: PANTOPRAZOLE 40 MG TABLET PO SCH (18:23)
[2017-11-28] MEDS: SYMBICORT 160-4.5 MCG INHALER INHALATION SCH (19:53)
[2017-11-28] MEDS: HYDROcodone/APAP 10-325MG 1 EACH TAB PO PRN (21:20)
[2017-11-29] MEDS: HYDROcodone/APAP 10-325MG 1 EACH TAB PO PRN ×3 (03:04→21:52)
[2017-11-29 06:14] LABS: Anisocytosis Slight; Basophils % (A) 0 %; Eosinophils # (A) 0.1 k/uL (0-0.7); Eosinophils % (A) 2 %; HCT 25.2 % (34.0-46.0); HGB 7.7 gm/dL (11.4-16.0); Hypochromasia Marked; Lymphocytes # (A) 1.4 k/uL (1.0-4.8); Lymphocytes % (A) 21 %; MCH 24.8 pg (25.0-35.0); MCHC 30.6 g/dL (31.0-37.0); MCV 81.2 fL (80.0-100.0); Mean Platelet Volume 7.8; Monocytes # (A) 0.4 k/uL (0-1.0); Monocytes % (A) 7 %; Neutrophils # (A) 4.1 k/uL (1.3-7.7); Neutrophils % (A) 65 %; Platelet Count 223 k/uL (150-450); Poikilocytosis Moderate; RBC 3.11 m/uL (3.80-5.40); RDW 17.2 % (11.5-15.5); WBC 6.4 k/uL (3.8-10.6)
[2017-11-29 06:20] LABS: INR 2.1 (<1.2); Prothrombin Time 19.1 sec (9.0-12.0)
[2017-11-29 06:32] LABS: ALT 33 U/L (9-52); AST 18 U/L (14-36); Alkaline Phosphatase 103 U/L (38-126); Anion Gap 11 mmol/L; Blood Urea Nitrogen 11 mg/dL (7-17); Carbon Dioxide 30 mmol/L (22-30); Chloride 99 mmol/L (98-107); Glucose 102 mg/dL (74-99); Potassium 3.5 mmol/L (3.5-5.1); Sodium 140 mmol/L (137-145); Total Bilirubin 1.5 mg/dL (0.2-1.3); Total Protein 6.2 g/dL (6.3-8.2)
[2017-11-29] MEDS: PANTOPRAZOLE 40 MG TABLET PO SCH ×2 (06:33→06:35)
[2017-11-29 06:36] LABS: Calcium 8.5 mg/dL (8.4-10.2)
[2017-11-29] MEDS: SYMBICORT 160-4.5 MCG INHALER INHALATION SCH ×2 (07:16→20:29)
[2017-11-29] MEDS: IPRATROPIUM-ALBUTEROL 3 ML NEB INHALATION PRN ×4 (07:17→20:29)
[2017-11-29] MEDS: FUROSEMIDE 10 MG/ML 4 ML VIAL IV SCH (08:47)
[2017-11-29] MEDS: METOPROLOL TARTRATE 25 MG TAB PO SCH (08:47)
[2017-11-29] MEDS: CHOLECALCIFEROL 1,000 UNIT TAB PO SCH (08:47)
[2017-11-29] MEDS: ASCORBIC ACID 500 MG TAB PO SCH (08:47)
[2017-11-29] MEDS: FERROUS SULFATE 325 MG TAB PO SCH ×2 (08:47→08:58)
[2017-11-29] MEDS: LEVOTHYROXINE 75 MCG TAB PO SCH (08:47)
--- NOTE | 2017-11-29 10:35 | P.PN ---
Subjective Progress Note Date: 11/29/17 Principal diagnosis: Coagulopathy Is a 72-year-old female with history of rheumatoid arthritis, COPD, aortic stenosis status post aortic valve replacement, mitral regurg status post mitral valve repair, chronic persistent atrial fibrillation who presented to the hospital with symptoms of worsening shortness of breath and bilateral edema. Cardiology consult was requested and patient was seen in consult yesterday by Dr. Buckner. Patient also had a significantly elevated INR on admission, and was found to be anemic. She did receive vitamin K as well as a blood transfusion. She was seen and examined this morning sitting up at the bedside. No shortness of breath at the time of my examination, she did state she got short of breath going from the bed to the commode however. Blood pressure 106/56, heart rate 90s, respirations 18, 92% on room air. White blood cell count 6.4, hemoglobin 7.7, platelet count 223. PT 19.1, INR 2.1, sodium 140, potassium 3.5, BUN 11, creatinine 0.5. Patient was initiated on IV Lasix for weight is down 1 kg today. Stool for occult blood was negative. Objective - Vital Signs Vital signs: Vital Signs Temp 97.2 F L 11/29/17 08:40 Pulse 103 H 11/29/17 08:40 Resp 18 11/29/17 08:40 BP 105/55 11/29/17 08:40 Pulse Ox 92 L 11/29/17 08:40 Intake & Output 11/28/17 11/29/17 11/29/17 18:59 06:59 18:59 Intake Total 1270 0 Output Total 400 Balance 870 0 Weight 57.1 kg 56.3 kg Intake: Oral 960 0 Blood Product 310 Rc As-1 Unit 310 [id number] Output: Urine 400 Other: Voiding Method Bedside Commode Bedside Commode # Bowel Movements 1 - Exam PHYSICAL EXAMINATION: HEENT: Head is atraumatic, normocephalic. Pupils equal, round. Neck is supple. There is no elevated jugular venous pressure. HEART EXAMINATION: Heart S1 and S2 systolic murmur is heard. CHEST EXAMINATION: Lungs are clear with diminished air entry to the bases ABDOMEN: Soft, nontender. Bowel sounds are heard. No organomegaly noted. EXTREMITIES: 2+ peripheral pulses with trace evidence of peripheral edema and no calf tenderness noted. NEUROLOGIC patient is awake, alert and oriented -3. . - Labs CBC & Chem 7: 11/29/17 05:47 11/29/17 05:47 Labs: Abnormal Lab Results - Last 24 Hours (Table) 11/27/17 11/28/17 11/29/17 Range/Units 22:15 06:14 05:47 RBC 3.11 L (3.80-5.40) m/uL Hgb 7.7 L (11.4-16.0) gm/dL Hct 25.2 L (34.0-46.0) % MCH 24.8 L (25.0-35.0) pg MCHC 30.6 L (31.0-37.0) g/dL RDW 17.2 H (11.5-15.5) % PT (9.0-12.0) sec INR (<1.2) Glucose (74-99) mg/dL Iron 17 L (50-170) ug/dL Iron Saturation 5.40 L (12.00-45.00) Total Bilirubin (0.2-1.3) mg/dL Total Protein (6.3-8.2) g/dL Albumin (3.5-5.0) g/dL Crossmatch See Detail 11/29/17 11/29/17 Range/Units 05:47 05:47 RBC (3.80-5.40) m/uL Hgb (11.4-16.0) gm/dL Hct (34.0-46.0) % MCH (25.0-35.0) pg MCHC (31.0-37.0) g/dL RDW (11.5-15.5) % PT 19.1 H (9.0-12.0) sec INR 2.1 H (<1.2) Glucose 102 H (74-99) mg/dL Iron (50-170) ug/dL Iron Saturation (12.00-45.00) Total Bilirubin 1.5 H (0.2-1.3) mg/dL Total Protein 6.2 L (6.3-8.2) g/dL Albumin 3.0 L (3.5-5.0) g/dL Crossmatch Microbiology - Last 24 Hours (Table) 11/27/17 22:15 Blood Culture - Preliminary Blood No Growth after 24 hours Assessment and Plan Plan: Assessment and plan #1 dyspnea, likely multifactorial, secondary to anemia and mild congestive heart failure #2 systolic congestive heart failure acute on chronic #3 symptomatic anemia with associated coagulopathy #4 status post aortic valve replacement and mitral valve repair in October of this year # 5 chronic persistent atrial fibrillation Coumadin currently on hold patient was also on amiodarone which was discontinued. #6 hypothyroidism #7 COPD Plan We will give the patient 2-1/2 mg of Coumadin today. Check daily PT/INR. Discontinue IV Lasix and change person to oral diuretics today. Check PT/INR, CBC , lytes BUN and creatinine in the morning. DNP note has been reviewed, I agree with a documented findings and plan of care. Patient was seen and examined.
--- NOTE | 2017-11-29 15:17 | P.PN ---
Subjective Patient is doing fairly well today. She denies any significant shortness of breath. Objective - Vital Signs Vital signs: Vital Signs Temp 97.2 F L 11/29/17 08:40 Pulse 92 11/29/17 12:25 Resp 16 11/29/17 12:25 BP 103/50 11/29/17 12:25 Pulse Ox 95 11/29/17 12:25 Intake & Output 11/28/17 11/29/17 11/29/17 18:59 06:59 18:59 Intake Total 1270 0 Output Total 400 Balance 870 0 Weight 57.1 kg 56.3 kg Intake: Oral 960 0 Blood Product 310 Rc As-1 Unit 310 [id number] Output: Urine 400 Other: Voiding Method Bedside Commode Bedside Commode Bedside Commode # Voids 5 # Bowel Movements 1 - Exam General: The patient is awake and alert, in no distress Eye: there is normal conjunctiva bilaterally. Neck: The neck is supple, there is no JVD. Cardiovascular: Normal S1-S2, no S3-S4, no murmurs. Respiratory: Lungs clear to auscultation bilaterally Gastrointestinal: Abdomen is soft, nontender Musculoskeletal: There is no pedal edema. Neurological:. Speech is normal. Skin: Skin is warm and dry - Labs CBC & Chem 7: 11/29/17 05:47 11/29/17 05:47 Labs: Abnormal Lab Results - Last 24 Hours (Table) 11/27/17 11/28/17 11/29/17 Range/Units 22:15 06:14 05:47 RBC 3.11 L (3.80-5.40) m/uL Hgb 7.7 L (11.4-16.0) gm/dL Hct 25.2 L (34.0-46.0) % MCH 24.8 L (25.0-35.0) pg MCHC 30.6 L (31.0-37.0) g/dL RDW 17.2 H (11.5-15.5) % PT (9.0-12.0) sec INR (<1.2) Glucose (74-99) mg/dL Iron 17 L (50-170) ug/dL Iron Saturation 5.40 L (12.00-45.00) Total Bilirubin (0.2-1.3) mg/dL Total Protein (6.3-8.2) g/dL Albumin (3.5-5.0) g/dL Crossmatch See Detail 11/29/17 11/29/17 Range/Units 05:47 05:47 RBC (3.80-5.40) m/uL Hgb (11.4-16.0) gm/dL Hct (34.0-46.0) % MCH (25.0-35.0) pg MCHC (31.0-37.0) g/dL RDW (11.5-15.5) % PT 19.1 H (9.0-12.0) sec INR 2.1 H (<1.2) Glucose 102 H (74-99) mg/dL Iron (50-170) ug/dL Iron Saturation (12.00-45.00) Total Bilirubin 1.5 H (0.2-1.3) mg/dL Total Protein 6.2 L (6.3-8.2) g/dL Albumin 3.0 L (3.5-5.0) g/dL Crossmatch Microbiology - Last 24 Hours (Table) 11/27/17 22:15 Blood Culture - Preliminary Blood No Growth after 24 hours Assessment and Plan Assessment: 1. Acute on chronic systolic congestive heart failure exacerbation: EF was 35- 40% on echocardiogram. Cardiology following. Lasix push back to oral today. 2. Dyspnea multifactorial likely related to her CHF exacerbation and anemia 3. Symptomatic anemia with coagulopathy: Status post 1 unit of PRBC. Hemoglobin down to 6.5. Stool for occult blood negative. Patient has a known history of iron deficiency anemia. She also had anemia at the time of discharge from her last hospitalization in October with expected postop anemia after her valve replaced 4. Coagulopathy: INR greater than 10 on admission. Patient has received 2.5 mg by mouth of vitamin K in ER. 5. Hypokalemia. Will give patient potassium supplement per protocol. 6. Status post aortic valve replacement and mitral valve repair 10/13/2017 7. Chronic atrial fibrillation status post cardioversion had been on Coumadin for anticoagulation. Cardiology is discontinuing the amiodarone. Continue metoprolol. Coumadin on hold. 8. History of iron deficiency anemia. Resume her iron supplement. Check iron studies 9. Hypothyroidism continue Synthroid 10. History of COPD stable continue her Symbicort and DuoNeb's
[2017-11-29] MEDS ORDERED: WARFARIN 2.5 MG TAB PO ONE (18:00)
[2017-11-29] MEDS: FUROSEMIDE 20 MG TAB PO SCH (18:08)
[2017-11-30 06:34] LABS: Anisocytosis Slight; Basophils % (A) 0 %; Eosinophils # (A) 0.2 k/uL (0-0.7); Eosinophils % (A) 3 %; HCT 26.3 % (34.0-46.0); Hypochromasia Marked; Lymphocytes # (A) 1.7 k/uL (1.0-4.8); Lymphocytes % (A) 26 %; MCH 24.8 pg (25.0-35.0); MCHC 30.5 g/dL (31.0-37.0); MCV 81.5 fL (80.0-100.0); Mean Platelet Volume 8.6; Monocytes # (A) 0.4 k/uL (0-1.0); Monocytes % (A) 7 %; Neutrophils # (A) 3.9 k/uL (1.3-7.7); Neutrophils % (A) 60 %; Platelet Count 233 k/uL (150-450); Poikilocytosis Slight; RBC 3.23 m/uL (3.80-5.40); RDW 17.1 % (11.5-15.5); WBC 6.6 k/uL (3.8-10.6)
[2017-11-30 06:38] LABS: INR 1.6 (<1.2); Prothrombin Time 14.9 sec (9.0-12.0)
[2017-11-30 06:54] LABS: ALT 20 U/L (9-52); AST 16 U/L (14-36); Alkaline Phosphatase 97 U/L (38-126); Anion Gap 9 mmol/L; Blood Urea Nitrogen 12 mg/dL (7-17); Calcium 8.7 mg/dL (8.4-10.2); Carbon Dioxide 32 mmol/L (22-30); Chloride 98 mmol/L (98-107); Glucose 91 mg/dL (74-99); Sodium 139 mmol/L (137-145); Total Bilirubin 1.2 mg/dL (0.2-1.3); Total Protein 6.3 g/dL (6.3-8.2)
[2017-11-30] MEDS: PANTOPRAZOLE 40 MG TABLET PO SCH (06:54)
[2017-11-30] MEDS: LEVOTHYROXINE 75 MCG TAB PO SCH (06:54)
[2017-11-30] MEDS: HYDROcodone/APAP 10-325MG 1 EACH TAB PO PRN (06:54)
[2017-11-30] MEDS: ASCORBIC ACID 500 MG TAB PO SCH (08:25)
[2017-11-30] MEDS: FERROUS SULFATE 325 MG TAB PO SCH (08:26)
[2017-11-30] MEDS: CHOLECALCIFEROL 1,000 UNIT TAB PO SCH (08:26)
[2017-11-30] MEDS: METOPROLOL TARTRATE 25 MG TAB PO SCH ×2 (08:26→21:29)
[2017-11-30] MEDS: FUROSEMIDE 20 MG TAB PO SCH ×2 (08:26→16:28)
[2017-11-30] MEDS: SYMBICORT 160-4.5 MCG INHALER INHALATION SCH ×2 (08:31→19:03)
[2017-11-30] MEDS: IPRATROPIUM-ALBUTEROL 3 ML NEB INHALATION PRN ×4 (08:31→19:03)
--- NOTE | 2017-11-30 09:42 | P.PN ---
Subjective Progress Note Date: 11/30/17 Principal diagnosis: CHF/A. fib this is a pleasant 72-year-old female patient was admitted to the hospital with dyspnea. She was found to be in congestive heart failure exacerbation secondary to systolic dysfunction as well as in severe anemia. The shortness of breath seems to be slightly better. She is on oral diuretics. She is in A. fib with slightly uncontrolled heart rate I am going to increase the dose of metoprolol for better heart rate control. INR is supple therapeutic and I would give the patient 3 mg of Coumadin today and check INR tomorrow morning. The hemoglobin is around 8. Objective - Vital Signs Vital signs: Vital Signs Temp 98.9 F 11/30/17 08:00 Pulse 100 11/30/17 08:45 Resp 18 11/30/17 08:00 BP 107/53 11/30/17 08:00 Pulse Ox 96 11/30/17 08:00 Intake & Output 11/29/17 11/30/17 11/30/17 18:59 06:59 18:59 Other: Voiding Method Bedside Commode Bedside Commode # Voids 2 2 - Constitutional General appearance: Present: no acute distress - Respiratory Respiratory: bilateral: diminished - Cardiovascular Rhythm: irregularly irregular Heart sounds: normal: S1, S2 - Labs CBC & Chem 7: 11/30/17 06:12 11/30/17 06:12 Labs: Abnormal Lab Results - Last 24 Hours (Table) 11/30/17 11/30/17 11/30/17 Range/Units 06:12 06:12 06:12 RBC 3.23 L (3.80-5.40) m/uL Hgb 8.0 L (11.4-16.0) gm/dL Hct 26.3 L (34.0-46.0) % MCH 24.8 L (25.0-35.0) pg MCHC 30.5 L (31.0-37.0) g/dL RDW 17.1 H (11.5-15.5) % PT 14.9 H (9.0-12.0) sec INR 1.6 H (<1.2) Carbon Dioxide 32 H (22-30) mmol/L Albumin 3.0 L (3.5-5.0) g/dL Microbiology - Last 24 Hours (Table) 11/27/17 22:15 Blood Culture - Preliminary Blood No Growth after 48 hours Assessment and Plan Assessment: assessment #1 congestive heart failure exacerbation, systolic, acute on chronic seems to be better #2 atrial fibrillation with uncontrolled heart rate #3 valvular heart disease #4 anemia Plan #1 increase the dose of metoprolol for better heart rate control #2 give the patient Coumadin and check INR tomorrow #3 follow-up with the patient.
--- NOTE | 2017-11-30 14:05 | P.PN ---
Subjective Patient is doing fairly well today. She denies any significant shortness of breath. Objective - Vital Signs Vital signs: Vital Signs Temp 98.6 F 11/30/17 10:59 Pulse 88 11/30/17 11:34 Resp 16 11/30/17 11:33 BP 91/46 11/30/17 10:59 Pulse Ox 95 11/30/17 10:59 Intake & Output 11/29/17 11/30/17 11/30/17 18:59 06:59 18:59 Intake Total 410 Output Total 400 Balance 10 Intake: Oral 410 Output: Urine 400 Other: Voiding Method Bedside Commode Bedside Commode # Voids 2 2 1 - Exam General: The patient is awake and alert, in no distress Eye: there is normal conjunctiva bilaterally. Neck: The neck is supple, there is no JVD. Cardiovascular: Normal S1-S2, no S3-S4, no murmurs. Respiratory: Lungs clear to auscultation bilaterally Gastrointestinal: Abdomen is soft, nontender Musculoskeletal: There is no pedal edema. Neurological:. Speech is normal. Skin: Skin is warm and dry - Labs CBC & Chem 7: 11/30/17 06:12 11/30/17 06:12 Labs: Abnormal Lab Results - Last 24 Hours (Table) 11/30/17 11/30/17 11/30/17 Range/Units 06:12 06:12 06:12 RBC 3.23 L (3.80-5.40) m/uL Hgb 8.0 L (11.4-16.0) gm/dL Hct 26.3 L (34.0-46.0) % MCH 24.8 L (25.0-35.0) pg MCHC 30.5 L (31.0-37.0) g/dL RDW 17.1 H (11.5-15.5) % PT 14.9 H (9.0-12.0) sec INR 1.6 H (<1.2) Carbon Dioxide 32 H (22-30) mmol/L Albumin 3.0 L (3.5-5.0) g/dL Microbiology - Last 24 Hours (Table) 11/27/17 22:15 Blood Culture - Preliminary Blood No Growth after 48 hours Assessment and Plan Assessment: 1. Acute on chronic systolic congestive heart failure exacerbation: EF was 35- 40% on echocardiogram. Cardiology following. Lasix back to oral today. 2. Dyspnea multifactorial likely related to her CHF exacerbation and anemia 3. Symptomatic anemia with coagulopathy: Status post 1 unit of PRBC. Hemoglobin down to 6.5. Stool for occult blood negative. Patient has a known history of iron deficiency anemia. She also had anemia at the time of discharge from her last hospitalization in October with expected postop anemia after her valve replaced 4. Coagulopathy: INR greater than 10 on admission. Patient has received 2.5 mg by mouth of vitamin K in ER. 5. Hypokalemia. Will give patient potassium supplement per protocol. 6. Status post aortic valve replacement and mitral valve repair 10/13/2017 7. Chronic atrial fibrillation status post cardioversion had been on Coumadin for anticoagulation. Cardiology is discontinuing the amiodarone. Continue metoprolol. Coumadin on hold. 8. History of iron deficiency anemia. Resume her iron supplement. Check iron studies 9. Hypothyroidism continue Synthroid 10. History of COPD stable continue her Symbicort and DuoNeb's
[2017-11-30] MEDS ORDERED: WARFARIN 3 MG TAB PO ONE (18:00)
[2017-11-30 21:51] VITALS: RESP 18
[2017-12-01] MEDS: LEVOTHYROXINE 75 MCG TAB PO SCH (05:22)
[2017-12-01 07:18] LABS: Anisocytosis Slight; Basophils % (A) 0 %; Eosinophils # (A) 0.2 k/uL (0-0.7); Eosinophils % (A) 3 %; HCT 26.8 % (34.0-46.0); Hypochromasia Marked; Lymphocytes # (A) 1.2 k/uL (1.0-4.8); Lymphocytes % (A) 18 %; MCH 24.5 pg (25.0-35.0); MCHC 29.8 g/dL (31.0-37.0); MCV 82.1 fL (80.0-100.0); Monocytes # (A) 0.4 k/uL (0-1.0); Monocytes % (A) 6 %; Neutrophils # (A) 4.6 k/uL (1.3-7.7); Neutrophils % (A) 69 %; Platelet Count 240 k/uL (150-450); Poikilocytosis Slight; RBC 3.26 m/uL (3.80-5.40); RDW 17.3 % (11.5-15.5); WBC 6.7 k/uL (3.8-10.6)
[2017-12-01 07:19] LABS: INR 2.1 (<1.2); Prothrombin Time 18.7 sec (9.0-12.0)
[2017-12-01] MEDS: IPRATROPIUM-ALBUTEROL 3 ML NEB INHALATION PRN (07:33)
[2017-12-01] MEDS: SYMBICORT 160-4.5 MCG INHALER INHALATION SCH (07:33)
[2017-12-01 07:43] LABS: ALT 23 U/L (9-52); AST 18 U/L (14-36); Alkaline Phosphatase 111 U/L (38-126); Anion Gap 7 mmol/L; Blood Urea Nitrogen 13 mg/dL (7-17); Calcium 8.5 mg/dL (8.4-10.2); Carbon Dioxide 29 mmol/L (22-30); Chloride 99 mmol/L (98-107); Glucose 114 mg/dL (74-99); Sodium 135 mmol/L (137-145); Total Bilirubin 1.2 mg/dL (0.2-1.3); Total Protein 6.4 g/dL (6.3-8.2)
[2017-12-01] MEDS: HYDROcodone/APAP 10-325MG 1 EACH TAB PO PRN ×2 (08:03→15:05)
[2017-12-01] MEDS: METOPROLOL TARTRATE 25 MG TAB PO SCH (08:04)
[2017-12-01] MEDS: FUROSEMIDE 20 MG TAB PO SCH (08:04)
[2017-12-01] MEDS: PANTOPRAZOLE 40 MG TABLET PO SCH (08:05)
[2017-12-01] MEDS: FERROUS SULFATE 325 MG TAB PO SCH (08:05)
[2017-12-01] MEDS: CHOLECALCIFEROL 1,000 UNIT TAB PO SCH (08:05)
[2017-12-01] MEDS: ASCORBIC ACID 500 MG TAB PO SCH (08:05)
--- NOTE | 2017-12-01 09:15 | PN ---
PROGRESS NOTE This is a 72-year-old female admitted to the hospital shortness of breath. She was found to be severely anemic, with CHF exacerbation. She also has underlying systolic dysfunction. Her hemoglobin is 8.0. Yesterday, she was given Coumadin 3 mg. Today, her INR is 3.1. Her heart rates are reasonably well controlled. Her blood pressure is in the high 80s. She denies any chest discomfort. No dizziness or lightheadedness. Breath sounds are reduced bilaterally with crackles at both bases. She has a mild hepatojugular reflux. No lower extremity edema. Heart sounds are soft. She appeared to be irregular today. Abdomen is soft, nontender. Labs are reviewed. Medications are reviewed. IMPRESSION: 1. Chronic congestive heart failure with systolic dysfunction, acute on chronic at this time, worsened by anemia. Hemoglobin is 8.0. 2. Paroxysmal atrial fibrillation, currently in sinus. 3. Valvular heart disease. 4. Anemia. Hemoglobin is now 8. It was close to 6 before. SUGGEST: Continue current medications without any changes. Continue diuretics. Continue low- dose beta blockers and Coumadin management now per the primary care physician. MMODL / IJN: [id number] /
[2017-12-01 11:04] VITALS: TEMP 98.4
--- NOTE | 2017-12-01 13:51 | P.DS ---
Providers Date of admission: 11/27/17 23:52 Expected date of discharge: 12/01/17 Attending physician: Olya Olson Consults: 11/27/17 23:54 Consult Physician Routine Consulting Provider: Cristóbal Riggins Consult Reason/Comments: CHF Do you want consulting provider notified?: Yes, Notify in am Primary care physician: Olya Olson [facility] Course: Discharge diagnosis 1. Acute on chronic systolic congestive heart failure exacerbation: EF was 40- 45% on echocardiogram. Continue Lasix 20 mg by mouth twice a day 2. Dyspnea multifactorial likely related to her CHF exacerbation and anemia 3. Symptomatic anemia with coagulopathy: Status post 1 unit of PRBC. Hemoglobin down to 6.5. Stool for occult blood negative. Patient has a known history of iron deficiency anemia. She also had anemia at the time of discharge from her last hospitalization in October with expected postop anemia after her valve replaced hemoglobin at discharge is 8 4. Coagulopathy: INR greater than 10 on admission. Treated with vitamin K 5. Hypokalemia. Resolved 6. Status post aortic valve replacement and mitral valve repair 10/13/2017 7. Chronic atrial fibrillation status post cardioversion had been on Coumadin for anticoagulation. Cardiology is discontinuing the amiodarone. Continue metoprolol. Metoprolol dose increased to 25 mg twice a day by cardiology. Coumadin dose adjusted 2.5 mg daily. Check PT/INR on Friday. INR at discharge 2.1 8. History of iron deficiency anemia. Iron level low at 17 iron saturation low at 5.40. Increase ferrous sulfate to 325 mg twice a day 9. Hypothyroidism continue Synthroid 10. History of COPD stable continue her Symbicort and DuoNeb's Hospital course This is a 72-year-old female with past medical history of aortic valve replacement and mitral valve repair in 10/13/2017. She also has a history of rheumatoid arthritis, COPD, hypothyroidism, iron deficiency anemia, congestive heart failure, diverticulosis and paroxysmal atrial fibrillation. Patient presents to the hospital with complaining of worsening shortness of breath and bilateral leg edema. She's found have evidence of congestive heart failure with chest x-ray showing mildly increased left pleural effusion. BNP elevated at 4460. Patient started on IV Lasix in the emergency room. Cardiology consulted. Patient reporting improvement in her lower extremity edema. Patient also had significant anemia with a hemoglobin of 7.3 down to 6.5. She' s receiving a unit of blood. Stool for occult blood was negative. INR sniffy elevated at greater than 10. She received a dose of vitamin K 2.5 mg. And then repeated INR is 8.8. She's receiving another dose of vitamin K 2.5 mg by mouth now. Patient denies any blood in her stools. Occasionally she'll have a black stool due to being on iron. But she reports that there is no new changes in her stools. Patient denies chest pain. Denies any nausea or vomiting. Denies any abdominal pain or bowel movement changes. Denies any urinary symptoms. Patient reports her last colonoscopy was about 5 years ago she was told no significant abnormality. She does not think she ever had a EGD. Patient takes Coumadin for her atrial fibrillation. Patient was seen and evaluated by cardiology. Symptoms did improve with IV Lasix. Her echo from November 28 did show an EF of 40-45%. She was able to be switched over to Lasix 20 mg twice a day. Cardiology has cleared her for discharge. They are aware of her blood pressure ranging in the high 80s and last blood pressure systolic blood pressure was 112. The recommend that she continues with her current regimen of medications that she's receiving in the hospital. Which did include a Lasix 20 mg twice a day and metoprolol 25 twice a day. Coumadin dose has been adjusted since she presented with coagulopathy. Patient's anemia has improved. It's likely combination of coagulopathy, iron deficiency anemia and recent postop anemia. Patient's symptoms have improved she is medically stable for discharge. She'll follow up with Dr. Olson in 1 week. Also needs to have a repeat PT/INR in 1 week. We'll follow-up with cardiology in 1 week. I performed an examination of the patient and discussed their management with the physician Surgical Garment Inspector. I have reviewed the Physician Surgical Garment Inspector's notes and agree with the documented findings and plan of care Patient Condition at Discharge: Stable Plan - Discharge Summary Discharge Rx Participant: No New Discharge Prescriptions: New Furosemide [Lasix] 20 mg PO BID@0900,1600 #60 tab Metoprolol Tartrate [Lopressor] 25 mg PO BID #60 tab Warfarin Sodium [Coumadin] 2.5 mg PO DAILY #30 tablet Continue Cholecalciferol [Vitamin D3] 2,000 units PO DAILY Ascorbic Acid [Vitamin C] 500 mg PO DAILY Fluticasone/Salmeterol [Advair Hfa 230-21 Mcg Inhaler] 1 - 2 puff INHALATION RT-BID Albuterol Sulfate [Proair Hfa] 1 - 2 puff INHALATION RT-Q6H PRN PRN Reason: Shortness Of Breath Ipratropium/Albuterol Sulfate [Combivent Respimat Inhaler] 1 puff INHALATION RT-QID PRN PRN Reason: Dyspnea HYDROcodone/APAP 10-325MG [[place] 10-325] 1 tab PO Q6H PRN PRN Reason: Pain Levothyroxine Sodium [Synthroid] 150 mcg PO DAILY ALPRAZolam [Xanax] 0.25 mg PO BID PRN PRN Reason: Anxiety Changed Ferrous Sulfate [Iron (65 MG Elemental)] 325 mg PO BID #0 Discontinued Furosemide [Lasix] 20 mg PO DAILY Warfarin Sodium [Coumadin] 5 mg PO MOWEFRSA Metoprolol Tartrate [Lopressor] 25 mg PO DAILY Amiodarone [Cordarone] 200 mg PO DAILY Discharge Medication List Ascorbic Acid [Vitamin C] 500 mg PO DAILY 01/22/14 [History] Cholecalciferol [Vitamin D3] 2,000 units PO DAILY 01/22/14 [History] Albuterol Sulfate [Proair Hfa] 1 - 2 puff INHALATION RT-Q6H PRN 09/15/17 [ History] Fluticasone/Salmeterol [Advair Hfa 230-21 Mcg Inhaler] 1 - 2 puff INHALATION RT- BID 09/15/17 [History] Ipratropium/Albuterol Sulfate [Combivent Respimat Inhaler] 1 puff INHALATION RT- QID PRN 09/29/17 [History] ALPRAZolam [Xanax] 0.25 mg PO BID PRN 11/27/17 [History] HYDROcodone/APAP 10-325MG [[place] 10-325] 1 tab PO Q6H PRN 11/27/17 [History] Levothyroxine Sodium [Synthroid] 150 mcg PO DAILY 11/27/17 [History] Ferrous Sulfate [Iron (65 MG Elemental)] 325 mg PO BID #0 12/01/17 [Rx] Furosemide [Lasix] 20 mg PO BID@0900,1600 #60 tab 12/01/17 [Rx] Metoprolol Tartrate [Lopressor] 25 mg PO BID #60 tab 12/01/17 [Rx] Warfarin Sodium [Coumadin] 2.5 mg PO DAILY #30 tablet 12/01/17 [Rx] Follow up Appointment(s)/Referral(s): Olya Olson MD [Primary Care Provider] - 1 Week [facility] Visiting Nurse, [NON-STAFF] - Ambulatory/Diagnostic Orders: Prothrombin Time INR [LAB.AMB] Time Frame: 1 Week, Location: Determined By Patient Activity/Diet/Wound Care/Special Instructions: Diet: cardiac Activity: as tolerated check PT/INR in [address] Olson's office Discharge Disposition: HOME WITH HOME HEALTH SERVICES
[2017-12-01 15:13] VITALS: BP 98/50; PULSE 94
== END 2017-12-01 15:35 | disposition home health service (06) | DRG 292 ==
LOC: EC 21:27 → 6SEL 23:52 → 5MS5E 11-30 15:32
PROVIDERS: ADMIT Internal Medicine; ATTEND Internal Medicine
PROC: 30233N1 Transfusion of Nonautologous Red Blood Cells into Peripheral Vein, Percutaneous Approach (ICD-10-PCS; principal; 2017-11-27)
DX: I50.23 Acute on chronic systolic (congestive) heart failure (principal); I48.1 Persistent atrial fibrillation; I48.0 Paroxysmal atrial fibrillation; J44.9 Chronic obstructive pulmonary disease, unspecified; D50.9 Iron deficiency anemia, unspecified; R79.1 Abnormal coagulation profile; E87.6 Hypokalemia; I25.10 Atherosclerotic heart disease of native coronary artery without angina pectoris; I48.2 Chronic atrial fibrillation; K21.9 Gastro-esophageal reflux disease without esophagitis; M06.9 Rheumatoid arthritis, unspecified; Z79.01 Long term (current) use of anticoagulants; Z87.442 Personal history of urinary calculi; Z87.891 Personal history of nicotine dependence; Z90.710 Acquired absence of both cervix and uterus; Z95.1 Presence of aortocoronary bypass graft; Z95.2 Presence of prosthetic heart valve; Z98.42 Cataract extraction status, left eye; Z98.41 Cataract extraction status, right eye; Z96.1 Presence of intraocular lens; Z96.653 Presence of artificial knee joint, bilateral; Z96.642 Presence of left artificial hip joint; E89.0 Postprocedural hypothyroidism; Z96.611 Presence of right artificial shoulder joint; Z98.1 Arthrodesis status; Z79.899 Other long term (current) drug therapy; Z79.890 Hormone replacement therapy; Z79.891 Long term (current) use of opiate analgesic
CPT/HCPCS: 36415; 71046; 80053; 82272; 82550; 82553; 82728; 83540; 83550; 83735; 83880; 84484; 85025; 85610; 85730; 86850; 86900; 86901; 86920; 87040; 93005; 93306; 94640; 99291

== ENCOUNTER 2018-01-27 05:26 | Inpatient (IN) | payer MEDICARE, OTHER ==
[2018-01-27 06:58] LABS: Anisocytosis Slight; Basophils % (A) 1 %; Eosinophils # (A) 0.2 k/uL (0-0.7); Eosinophils % (A) 3 %; HCT 31.1 % (34.0-46.0); HGB 9.3 gm/dL (11.4-16.0); Hypochromasia Marked; Lymphocytes # (A) 1.2 k/uL (1.0-4.8); Lymphocytes % (A) 17 %; MCH 23.4 pg (25.0-35.0); MCV 78.1 fL (80.0-100.0); Microcytosis Slight; Monocytes # (A) 0.4 k/uL (0-1.0); Monocytes % (A) 6 %; Neutrophils # (A) 4.7 k/uL (1.3-7.7); Neutrophils % (A) 69 %; Platelet Count 256 k/uL (150-450); RBC 3.98 m/uL (3.80-5.40); RDW 16.8 % (11.5-15.5); WBC 6.8 k/uL (3.8-10.6)
[2018-01-27 07:11] LABS: ALT 37 U/L (9-52); AST 30 U/L (14-36); Albumin 3.3 g/dL (3.5-5.0); Alkaline Phosphatase 150 U/L (38-126); Anion Gap 12 mmol/L; Blood Urea Nitrogen 19 mg/dL (7-17); Calcium 8.8 mg/dL (8.4-10.2); Carbon Dioxide 28 mmol/L (22-30); Chloride 98 mmol/L (98-107); Glucose 96 mg/dL (74-99); Sodium 138 mmol/L (137-145); Total Bilirubin 0.6 mg/dL (0.2-1.3); Total Protein 6.6 g/dL (6.3-8.2)
--- NOTE | 2018-01-27 07:15 | ED ---
General Adult HPI - General Chief complaint: Shortness of Breath Stated complaint: DANIEL Time Seen by Provider: 01/27/18 07:03 Source: patient, EMS, RN notes reviewed, old records reviewed Mode of arrival: EMS Limitations: no limitations - History of Present Illness Initial comments: 72-year-old female presenting with worsening dyspnea. Patient has history of recent valve replacement approximately 4 months ago. She has been dealing with some intermittent lower extremity swelling and dyspnea since that time. She is currently on 60 mg total daily of by mouth Lasix. She takes 40mg in the morning and 20mg at noon. Over the past 3 days she is more short of breath with exertion. She denies any chest pain. Denies fever or chills. She's had a mild cough. She has also noted persistent bilateral lower extremity swelling. No abdominal pain. No nausea vomiting or diarrhea. Patient is currently on 2 L of home O2. - Related Data Home Medications Medication Instructions Recorded Confirmed Ascorbic Acid [Vitamin C] 500 mg PO DAILY 01/22/14 01/27/18 Cholecalciferol [Vitamin D3] 2,000 units PO DAILY 01/22/14 01/27/18 Fluticasone/Salmeterol [Advair Hfa 3 puff INHALATION RT-TID 09/15/17 01/27/18 230-21 Mcg Inhaler] ALPRAZolam [Xanax] 0.25 mg PO BID PRN 11/27/17 01/27/18 HYDROcodone/APAP 10-325MG [[place] 1 tab PO Q6H PRN 11/27/17 01/27/18 10-325] Levothyroxine Sodium [Synthroid] 150 mcg PO DAILY 11/27/17 01/27/18 Metoprolol Tartrate [Lopressor] 25 mg PO HS 01/27/18 01/27/18 Previous Rx's Medication Instructions Recorded Furosemide [Lasix] 20 mg PO BID@0900,1600 #60 tab 12/01/17 Warfarin Sodium [Coumadin] 2.5 mg PO DAILY #30 tablet 12/01/17 Allergies Allergy/AdvReac Type Severity Reaction Status Date / Time lisinopril Allergy Unknown Verified 01/27/18 07:42 Review of Systems ROS Statement: Those systems with pertinent positive or pertinent negative responses have been documented in the HPI. ROS Other: All systems not noted in ROS Statement are negative. Past Medical History Past Medical History: Coronary Artery Disease (CAD), COPD, GERD/Reflux, Osteoarthritis (OA), Renal Disease, Rheumatoid Arthritis (RA), Supraventricular Tachycardia (SVT), Thyroid Disorder Additional Past Medical History / Comment(s): Nephrolithiasis, rheumatoid arthritis several joints, cardiac murmur. diverticular dx, recent UTI/ completed ABX. Episode of nonsustained ventricle tachycardia, SOB w/exertion History of Any Multi-Drug Resistant Organisms: None Reported Past Surgical History: Coronary Bypass/CABG, Heart Catheterization, Hysterectomy , Joint Replacement, Orthopedic Surgery Additional Past Surgical History / Comment(s): Recent MATTHEW, ti total knees arthroplasty,lt hip arthroplasty, goiter removed 1963, partial thyroidectomy, cataracts removed with lens implants, REVERSE TOTAL RIGHT SHOULDER; Rotator cuff R shoulder, cervical fusion/injections, colonoscopy. CABAG at [facility] 10/13/17 Prosthetic Aortic valve and mitral valve repair. Past Anesthesia/Blood Transfusion Reactions: No Reported Reaction Past Psychological History: No Psychological Hx Reported Smoking Status: Former smoker Past Alcohol Use History: None Reported Past Drug Use History: None Reported - Past Family History Father Additional Family Medical History / Comment(s): in his 80's of a mi Mother Additional Family Medical History / Comment(s): age 88 in skilled nursing pt not sure what she from. hx smoking. General Exam Limitations: no limitations General appearance: alert, in no apparent distress Head exam: Present: atraumatic, normocephalic Eye exam: Present: normal appearance, PERRL, EOMI ENT exam: Present: normal exam Neck exam: Present: normal inspection. Absent: tenderness, meningismus Respiratory exam: Present: rales, decreased breath sounds. Absent: respiratory distress Cardiovascular Exam: Present: regular rate, normal rhythm, systolic murmur GI/Abdominal exam: Present: soft. Absent: distended, tenderness, guarding Extremities exam: Present: normal inspection, normal capillary refill. Absent: pedal edema Neurological exam: Present: alert, oriented X3, CN II-XII intact. Absent: motor sensory deficit Psychiatric exam: Present: normal affect, normal mood Skin exam: Present: warm, dry, intact. Absent: cyanosis, diaphoretic Course Vital Signs 01/27/18 01/27/18 01/27/18 05:27 06:27 07:00 Temperature 98.9 F Pulse Rate 98 76 Respiratory 18 22 20 Rate Blood Pressure 103/75 102/58 O2 Sat by Pulse 97 97 Oximetry 01/27/18 08:48 Temperature 97.8 F Pulse Rate 80 Respiratory 20 Rate Blood Pressure 101/56 O2 Sat by Pulse 100 Oximetry EKG Findings - EKG Comments: EKG Findings:: EKG shows atrial flutter with [address] segment elevation, rate of 69, QRS duration 76, QTC 473 Medical Decision Making - Medical Decision Making 72-year-old with history of congestive heart failure and valvular disease status post placement presenting with dyspnea. On examination patient does have bilateral Rales, chest x-ray shows pulmonary hypertension with edema. INR is therapeutic. Hemoglobin is 9.3 which is improved from previous. White lites within normal limits. Troponin is negative, BNP is elevated at 4700. EKG shows atrial flutter with 41 AV conduction, patient does have history of atrial fibrillation. She is given IV Lasix. She will be admitted for further IV diuresis. Dr. Olson will accept admission - Lab Data Result diagrams: 01/27/18 06:11 01/27/18 06:11 Lab Results 01/27/18 01/27/18 01/27/18 Range/Units 06:11 06:11 06:11 WBC 6.8 (3.8-10.6) k/uL RBC 3.98 (3.80-5.40) m/uL Hgb 9.3 L (11.4-16.0) gm/dL Hct 31.1 L (34.0-46.0) % MCV 78.1 L (80.0-100.0) fL MCH 23.4 L (25.0-35.0) pg MCHC 30.0 L (31.0-37.0) g/dL RDW 16.8 H (11.5-15.5) % Plt Count 256 (150-450) k/uL Neutrophils % 69 % Lymphocytes % 17 % Monocytes % 6 % Eosinophils % 3 % Basophils % 1 % Neutrophils # 4.7 (1.3-7.7) k/uL Lymphocytes # 1.2 (1.0-4.8) k/uL Monocytes # 0.4 (0-1.0) k/uL Eosinophils # 0.2 (0-0.7) k/uL Basophils # 0.0 (0-0.2) k/uL Hypochromasia Marked Anisocytosis Slight Microcytosis Slight PT (9.0-12.0) sec INR (<1.2) APTT (22.0-30.0) sec Sodium 138 (137-145) mmol/L Potassium 4.0 (3.5-5.1) mmol/L Chloride 98 (98-107) mmol/L Carbon Dioxide 28 (22-30) mmol/L Anion Gap 12 mmol/L BUN 19 H (7-17) mg/dL Creatinine 0.74 (0.52-1.04) mg/dL Est GFR (CKD-EPI)AfAm >90 (>60 ml/min/1.73 sqM) Est GFR (CKD-EPI)NonAf 81 (>60 ml/min/1.73 sqM) Glucose 96 (74-99) mg/dL Calcium 8.8 (8.4-10.2) mg/dL Magnesium 2.0 (1.6-2.3) mg/dL Total Bilirubin 0.6 (0.2-1.3) mg/dL AST 30 (14-36) U/L ALT 37 (9-52) U/L Alkaline Phosphatase 150 H (38-126) U/L Total Creatine Kinase 39 (30-135) U/L CK-MB (CK-2) 0.8 (0.0-2.4) ng/mL CK-MB (CK-2) Rel Index 2.1 Troponin I <0.012 (0.000-0.034) ng/mL NT-Pro-B Natriuret Pep pg/mL Total Protein 6.6 (6.3-8.2) g/dL Albumin 3.3 L (3.5-5.0) g/dL 01/27/18 01/27/18 Range/Units 06:11 07:20 WBC (3.8-10.6) k/uL RBC (3.80-5.40) m/uL Hgb (11.4-16.0) gm/dL Hct (34.0-46.0) % MCV (80.0-100.0) fL MCH (25.0-35.0) pg MCHC (31.0-37.0) g/dL RDW (11.5-15.5) % Plt Count (150-450) k/uL Neutrophils % % Lymphocytes % % Monocytes % % Eosinophils % % Basophils % % Neutrophils # (1.3-7.7) k/uL Lymphocytes # (1.0-4.8) k/uL Monocytes # (0-1.0) k/uL Eosinophils # (0-0.7) k/uL Basophils # (0-0.2) k/uL Hypochromasia Anisocytosis Microcytosis PT 25.6 H (9.0-12.0) sec INR 2.9 H (<1.2) APTT 30.7 H (22.0-30.0) sec Sodium (137-145) mmol/L Potassium (3.5-5.1) mmol/L Chloride (98-107) mmol/L Carbon Dioxide (22-30) mmol/L Anion Gap mmol/L BUN (7-17) mg/dL Creatinine (0.52-1.04) mg/dL Est GFR (CKD-EPI)AfAm (>60 ml/min/1.73 sqM) Est GFR (CKD-EPI)NonAf (>60 ml/min/1.73 sqM) Glucose (74-99) mg/dL Calcium (8.4-10.2) mg/dL Magnesium (1.6-2.3) mg/dL Total Bilirubin (0.2-1.3) mg/dL AST (14-36) U/L ALT (9-52) U/L Alkaline Phosphatase (38-126) U/L Total Creatine Kinase (30-135) U/L CK-MB (CK-2) (0.0-2.4) ng/mL CK-MB (CK-2) Rel Index Troponin I (0.000-0.034) ng/mL NT-Pro-B Natriuret Pep 4770 pg/mL Total Protein (6.3-8.2) g/dL Albumin (3.5-5.0) g/dL Disposition Clinical Impression: Congestive heart failure Dis[facility] Condition: Stable Is patient prescribed a controlled substance at d/c from ED?: No Referrals: Olya Olson MD [Primary Care Provider] - 1-2 days Decision to Admit Reason: Admit from EC Decision Date: 01/27/18 Decision Time: 10:06
[2018-01-27 07:32] LABS: Creatine Kinase 39 U/L (30-135)
[2018-01-27 07:39] LABS: INR 2.9 (<1.2); Partial Thromboplastin Time 30.7 sec (22.0-30.0); Prothrombin Time 25.6 sec (9.0-12.0)
[2018-01-27 07:45] LABS: Creatine Kinase MB 0.8 ng/mL (0.0-2.4); Troponin I <0.012 ng/mL (0.000-0.034)
--- NOTE | 2018-01-27 08:09 | XR ---
EXAMINATION TYPE: XR chest 2V DATE OF EXAM: 01/27/2018 COMPARISON: Prior chest 11/27/2017 HISTORY: Chest pain TECHNIQUE: Frontal and lateral views of the chest are obtained. FINDINGS: Patient is post median sternotomy, aortic valve replacement, atrial appendage clipping. Pa tient is post right shoulder arthroplasty and there are overlying cardiac leads. The heart is enlarge d. Interstitium is increased, central vascularity is prominent. No evident pneumothorax. There is sta ble thickening along the left lateral chest wall with blunting of the costophrenic angle. Pulmonary a rtery appears prominently, there may be underlying pulmonary artery hypertension. IMPRESSION: Correlate for pulmonary venous hypertension and interstitial edema. Additional findings above.
[2018-01-27] MEDS ORDERED: FUROSEMIDE 10 MG/ML 4 ML VIAL IV STA (08:19)
[2018-01-27] MEDS ORDERED: ACETAMINOPHEN TAB 325 MG TAB PO PRN (10:04)
[2018-01-27] MEDS ORDERED: NALOXONE 0.4 MG/ML 1 ML VIAL IV PRN (10:04)
[2018-01-27] MEDS ORDERED: ALPRAZolam 0.25 MG TAB PO PRN (12:56)
--- NOTE | 2018-01-27 13:16 | P.HPIM ---
History of Present Illness H&P Date: 01/27/18 Chief Complaint: Worsening shortness of breath and lower extremity edema for the past 3 days This is a 72-year-old female with a known history of congestive heart failure with an EF of 40-45%, COPD, iron deficiency anemia, hypothyroidism, mitral valve pair and aortic valve replacement in October 2007, paroxysmal atrial fibrillation, rheumatoid arthritis, chronic respiratory failure with home oxygen 2 L, history of coronary artery disease with previous CABG. Patient presents to the emergency room with worsening shortness of breath especially with activity and some lower extremity edema over the last 3 days. She is on Lasix at home. Patient reports that she has been taking it as scheduled. She is also anticoagulated with Coumadin for her physical atrial fibrillation as well as the aortic valve replacement. INR therapeutic at 2.9 on admission. Patient was started on IV Lasix for her congestive heart failure. She did have an elevated BNP 4770. Chest x-ray had shown correlate for pulmonary venous hypertension and interstitial edema. Cardiology will be consulted. She did have a EKG showing atrial flutter with a heart rate of 69. Patient denies any chest pain. Denies any fever or chills or sweats. Did admit to having some cough. Denies any nausea or vomiting. Denies any bowel movement changes or urinary symptoms. Review of Systems Please refer to HPI otherwise unremarkable Past Medical History Past Medical History: Atrial Fibrillation, Heart Failure, COPD, GERD/Reflux, Osteoarthritis (OA), Renal Disease, Rheumatoid Arthritis (RA), Supraventricular Tachycardia (SVT), Thyroid Disorder Additional Past Medical History / Comment(s): Paroxysmal Afib, SVT, nonsustained VT, SOB with exertion, home O2 at 2L/NC usually prn but lately ATC , arthritis, RA several joints, current L elbow pain/swelling-had "injection", nephrolithiasis, hypothyroid, diverticular dx, UTI, iron deficiency anemia. History of Any Multi-Drug Resistant Organisms: None Reported Past Surgical History: Coronary Bypass/CABG, Heart Catheterization, Hysterectomy , Joint Replacement, Orthopedic Surgery Additional Past Surgical History / Comment(s): Geoff total knees arthroplasty,lt hip arthroplasty, goiter removed 1962, partial thyroidectomy, cataracts removed with lens implants, REVERSE TOTAL RIGHT SHOULDER; Rotator cuff R shoulder, cervical fusion/injections, colonoscopy, MATTHEW, valve surgery at [facility] 10/13/17 Prosthetic Aortic valve and mitral valve repair. Past Anesthesia/Blood Transfusion Reactions: No Reported Reaction Past Psychological History: No Psychological Hx Reported Additional Psychological History / Comment(s): Pt resides with her spouse in an apartment with no stairs. She used to drive but not since valve surgery. Her spouse is helpful and able to drive her to appts. She has home oxygen. She uses a walker to ambulate and has a cane. She also has a scale and B/P monitor. She has used VMA in the recent past. Smoking Status: Former smoker Additional Past Alcohol Use History / Comment(s): She used to drink 2 glasses of wine per week but hasn't for months, quit smoking @age of 43, smoked 1ppd for 30 yrs. Past Drug Use History: None Reported - Past Family History Father Additional Family Medical History / Comment(s): in his 80's of a mi Mother Additional Family Medical History / Comment(s): age 88 in retirement pt not sure what she from. hx smoking. Medications and Allergies Home Medications Medication Instructions Recorded Confirmed Type Ascorbic Acid [Vitamin C] 500 mg PO DAILY 01/22/14 01/27/18 History Cholecalciferol [Vitamin D3] 2,000 units PO DAILY 01/22/14 01/27/18 History Fluticasone/Salmeterol [Advair Hfa 3 puff INHALATION RT-TID 09/15/17 01/27/18 History 230-21 Mcg Inhaler] ALPRAZolam [Xanax] 0.25 mg PO BID PRN 11/27/17 01/27/18 History HYDROcodone/APAP 10-325MG [[place] 1 tab PO Q6H PRN 11/27/17 01/27/18 History 10-325] Levothyroxine Sodium [Synthroid] 150 mcg PO DAILY 11/27/17 01/27/18 History Furosemide [Lasix] 20 mg PO BID@0900,1600 #60 tab 12/01/17 01/27/18 Rx Warfarin Sodium [Coumadin] 2.5 mg PO DAILY #30 tablet 12/01/17 01/27/18 Rx Metoprolol Tartrate [Lopressor] 25 mg PO HS 01/27/18 01/27/18 History Allergies Allergy/AdvReac Type Severity Reaction Status Date / Time lisinopril Allergy Unknown Verified 01/27/18 07:42 Physical Exam Vitals: Vital Signs Temp Pulse Resp BP Pulse Ox 01/27/18 12:55 97.8 F 76 18 96/62 97 01/27/18 10:17 97.7 F 89 18 91/59 100 01/27/18 08:48 97.8 F 80 20 101/56 100 01/27/18 07:00 76 20 102/58 97 01/27/18 06:27 22 01/27/18 05:27 98.9 F 98 18 103/75 97 Intake and Output 01/26/18 01/27/18 01/27/18 22:59 06:59 14:59 Other: Weight 55.792 kg Head normocephalic Neck supple Lungs crackles bilaterally right greater than left Heart irregular with murmur at aortic valve Abdomen is soft nontender nondistended positive bowel sounds no hepatosplenomegaly Extremities legs are tight and swollen about a +1 edema bilaterally no tenderness with palpation of the calf Neuro alert and orientated to 3 Results CBC & Chem 7: 01/27/18 06:11 01/27/18 06:11 Labs: Abnormal Lab Results - Last 24 Hours (Table) 01/27/18 01/27/18 01/27/18 Range/Units 06:11 06:11 07:20 Hgb 9.3 L (11.4-16.0) gm/dL Hct 31.1 L (34.0-46.0) % MCV 78.1 L (80.0-100.0) fL MCH 23.4 L (25.0-35.0) pg MCHC 30.0 L (31.0-37.0) g/dL RDW 16.8 H (11.5-15.5) % PT 25.6 H (9.0-12.0) sec INR 2.9 H (<1.2) APTT 30.7 H (22.0-30.0) sec BUN 19 H (7-17) mg/dL Alkaline Phosphatase 150 H (38-126) U/L Albumin 3.3 L (3.5-5.0) g/dL Thrombosis Risk Factor Assmnt - Choose All That Apply Any of the Below Risk Factors Present?: Yes Each Factor Represents 1 point: Abnormal pulmonary function (COPD), Heart failure (<1month) Other Risk Factors: Yes Each Risk Factor Represents 2 Points: Age 61-74 years Other congenital or acquired thrombophilia - If yes, enter type in comment: No Thrombosis Risk Factor Assessment Total Risk Factor Score: 4 Thrombosis Risk Factor Assessment Level: Moderate Risk Assessment and Plan Assessment: 1. Acute on chronic systolic congestive heart failure exacerbation: Patient has been started on IV Lasix 20 mg every 8 hours in the ER. Cardiology will be consulted. BNP elevated on admission. Chest x-ray showing evidence of interstitial edema. Last echo October 2017 shows an EF of 40-45% 2. History of paroxysmal atrial fibrillation with EKG showing evidence of atrial flutter: Continue the metoprolol for rate control and Coumadin for anticoagulation 3. Recent aortic valve replacement and mitral valve repair in October 2017. INR therapeutic at 2.9. Continue current Coumadin dose 4. History of iron deficiency anemia. Hemoglobin 9.3. Check iron studies. Restart ferrous sulfate 325 mg twice a day. Unclear if patient has been taking this at home 5. History of COPD no evidence of exacerbation 6. History of rheumatoid arthritis 7. History of coronary artery disease with previous CABG 8. Hypothyroidism: Secondary to thyroidectomy .Continue Synthroid Prophylaxis Pepcid and DVT prophylaxis Coumadin Time with Patient: Greater than 30 (Greater than 60% of the total time spent in counseling and coordination of care.I performed an examination of the patient and discussed their management with the physician Children'S Service Supervisor. I have reviewed the Physician Children'S Service Supervisor's notes and agree with the documented findings and plan of care)
[2018-01-27 13:20] LABS: Glucose,Whole Blood 96 mg/dL (75-99)
[2018-01-27] MEDS: FERROUS SULFATE 325 MG TAB PO SCH ×2 (16:10→20:30)
[2018-01-27] MEDS: DILTIAZEM 50 MG in SODIUM CHLORIDE 0.9% 40 ML IV SCH (18:45)
[2018-01-27] MEDS: SYMBICORT 160-4.5 MCG INHALER INHALATION SCH (19:24)
[2018-01-27] MEDS: FUROSEMIDE 10 MG/ML 2 ML VIAL IV SCH (20:25)
[2018-01-27 20:36] LABS: Iron Saturation 4.35 (12.00-45.00)
[2018-01-27] MEDS ORDERED: METOPROLOL TARTRATE 25 MG TAB PO SCH (21:00)
[2018-01-28] MEDS: FUROSEMIDE 10 MG/ML 2 ML VIAL IV SCH ×4 (01:35→23:00)
[2018-01-28] MEDS: DILTIAZEM 50 MG in SODIUM CHLORIDE 0.9% 40 ML IV SCH ×2 (01:39→15:36)
[2018-01-28 04:15] LABS: Anisocytosis Slight; Basophils % (A) 1 %; Eosinophils # (A) 0.2 k/uL (0-0.7); Eosinophils % (A) 3 %; HCT 32.8 % (34.0-46.0); HGB 9.8 gm/dL (11.4-16.0); Hypochromasia Marked; Lymphocytes # (A) 1.3 k/uL (1.0-4.8); Lymphocytes % (A) 20 %; MCH 23.3 pg (25.0-35.0); MCHC 29.8 g/dL (31.0-37.0); MCV 78.1 fL (80.0-100.0); Mean Platelet Volume 7.5; Microcytosis Slight; Monocytes # (A) 0.4 k/uL (0-1.0); Monocytes % (A) 6 %; Neutrophils # (A) 4.2 k/uL (1.3-7.7); Neutrophils % (A) 67 %; Platelet Count 276 k/uL (150-450); RDW 16.9 % (11.5-15.5); WBC 6.3 k/uL (3.8-10.6)
[2018-01-28 04:22] LABS: INR 2.3 (<1.2); Prothrombin Time 21.1 sec (9.0-12.0)
[2018-01-28 04:35] LABS: ALT 30 U/L (9-52); AST 27 U/L (14-36); Albumin 3.6 g/dL (3.5-5.0); Alkaline Phosphatase 142 U/L (38-126); Anion Gap 16 mmol/L; Blood Urea Nitrogen 19 mg/dL (7-17); Calcium 8.8 mg/dL (8.4-10.2); Carbon Dioxide 28 mmol/L (22-30); Chloride 97 mmol/L (98-107); Glucose 163 mg/dL (74-99); Potassium 3.2 mmol/L (3.5-5.1); Sodium 141 mmol/L (137-145); Total Bilirubin 0.8 mg/dL (0.2-1.3); Total Protein 6.9 g/dL (6.3-8.2)
[2018-01-28] MEDS: LEVOTHYROXINE 75 MCG TAB PO SCH (05:53)
[2018-01-28] MEDS ORDERED: Potassium Replacement Protocol 1 EACH MISC MISCELLANE PRN (06:39)
--- NOTE | 2018-01-28 08:46 | P.CRDCN ---
History of Present Illness Consult date: 01/28/18 Requesting physician: Olya Olson Consult reason: atrial flutter, shortness of breath Chief complaint: Shortness of breath History of present illness: This is a pleasant 72-year-old female with history of aortic valve replacement with bioprosthetic aortic valve as well as mitral valve repair in October of this year, paroxysmal atrial fibrillation, atrial flutter, typical, iron deficiency anemia, rheumatoid arthritis, nonischemic cardiomyopathy, who presents to the hospital with symptoms of progressively worsening shortness of breath. EKG on arrival here showed atrial flutter with a controlled ventricular response. Chest x-ray showed pulmonary venous hypertension and interstitial edema. Let pressure on arrival 102/76, heart rate in the 90s, 97% on 2 L of oxygen. White blood cell count 6.3, hemoglobin 9.8, platelet count 276. INR 2.3. Sodium 141, potassium 3.2 which is being replaced, BUN 19, creatinine 0.6. Magnesium 2.0, iron 15 TIBC 345, iron saturation 4.3, ferritin 69. AST and ALT are normal. Alk phos 142. Troponin 0.012 and BNP level 4770. Echocardiogram with Doppler study performed in October of this year revealed an ejection fraction of 40-45% normally functioning bioprosthetic valve trace of MR. Patient did have a cardiac catheterization prior to her valve surgery which revealed normal coronary arteries. The patient was initiated on IV Lasix in the emergency room she has been diuresing through the night although her weight is not documented to be down. The patient is currently on a Cardizem drip at 10 mg per hour heart rate in the 60s to 70s, atrial flutter. At the time of my examination, patient does state that her breathing is significantly improved. She did have mild swelling in her lower extremities on presentation here which has also improved significantly. Past Medical History Past Medical History: Atrial Fibrillation, Heart Failure, COPD, GERD/Reflux, Osteoarthritis (OA), Renal Disease, Rheumatoid Arthritis (RA), Supraventricular Tachycardia (SVT), Thyroid Disorder Additional Past Medical History / Comment(s): Paroxysmal Afib, SVT, nonsustained VT, SOB with exertion, home O2 at 2L/NC usually prn but lately ATC , arthritis, RA several joints, current L elbow pain/swelling-had "injection", nephrolithiasis, hypothyroid, diverticular dx, UTI, iron deficiency anemia. History of Any Multi-Drug Resistant Organisms: None Reported Past Surgical History: Coronary Bypass/CABG, Heart Catheterization, Hysterectomy , Joint Replacement, Orthopedic Surgery Additional Past Surgical History / Comment(s): Geoff total knees arthroplasty,lt hip arthroplasty, goiter removed 1963, partial thyroidectomy, cataracts removed with lens implants, REVERSE TOTAL RIGHT SHOULDER; Rotator cuff R shoulder, cervical fusion/injections, colonoscopy, MATTHEW, valve surgery at [facility] 10/13/17 Prosthetic Aortic valve and mitral valve repair. Past Anesthesia/Blood Transfusion Reactions: No Reported Reaction Past Psychological History: No Psychological Hx Reported Additional Psychological History / Comment(s): Pt resides with her spouse in an apartment with no stairs. She used to drive but not since valve surgery. Her spouse is helpful and able to drive her to appts. She has home oxygen. She uses a walker to ambulate and has a cane. She also has a scale and B/P monitor. She has used VMA in the recent past. Smoking Status: Former smoker Additional Past Alcohol Use History / Comment(s): She used to drink 2 glasses of wine per week but hasn't for months, quit smoking @age of 43, smoked 1ppd for 30 yrs. Past Drug Use History: None Reported - Past Family History Father Additional Family Medical History / Comment(s): in his 80's of a mi Mother Additional Family Medical History / Comment(s): age 88 in [facility] pt not sure what she from. hx smoking. Medications and Allergies Home Medications Medication Instructions Recorded Confirmed Type Ascorbic Acid [Vitamin C] 500 mg PO DAILY 01/22/14 01/27/18 History Cholecalciferol [Vitamin D3] 2,000 units PO DAILY 01/22/14 01/27/18 History Fluticasone/Salmeterol [Advair Hfa 3 puff INHALATION RT-TID 09/15/17 01/27/18 History 230-21 Mcg Inhaler] ALPRAZolam [Xanax] 0.25 mg PO BID PRN 11/27/17 01/27/18 History HYDROcodone/APAP 10-325MG [[place] 1 tab PO Q6H PRN 11/27/17 01/27/18 History 10-325] Levothyroxine Sodium [Synthroid] 150 mcg PO DAILY 11/27/17 01/27/18 History Furosemide [Lasix] 20 mg PO BID@0900,1600 #60 tab 12/01/17 01/27/18 Rx Warfarin Sodium [Coumadin] 2.5 mg PO DAILY #30 tablet 12/01/17 01/27/18 Rx Metoprolol Tartrate [Lopressor] 25 mg PO HS 01/27/18 01/27/18 History Allergies Allergy/AdvReac Type Severity Reaction Status Date / Time lisinopril Allergy Unknown Verified 01/27/18 07:42 Physical Exam Vitals: Vital Signs Temp Pulse Pulse Pulse Resp BP BP 01/28/18 04:00 97.8 F 69 15 91/63 01/28/18 01:00 76 21 94/53 01/28/18 00:00 98.1 F 88 20 94/53 01/27/18 22:00 108 H 24 89/56 01/27/18 21:10 144 H 99/51 01/27/18 21:00 150 H 25 H 107/66 01/27/18 20:32 121 H 24 97/65 01/27/18 20:00 98.4 F 111 H 121 H 16 99/52 111/71 01/27/18 18:00 150 H 21 103/56 01/27/18 16:00 98.7 F 131 H 19 102/60 01/27/18 14:00 83 19 107/62 01/27/18 13:23 01/27/18 13:12 97 23 01/27/18 12:55 97.8 F 76 18 96/62 01/27/18 10:17 97.7 F 89 18 91/59 01/27/18 08:48 97.8 F 80 20 101/56 Pulse Ox 01/28/18 04:00 97 01/28/18 01:00 99 01/28/18 00:00 98 01/27/18 22:00 97 01/27/18 21:10 01/27/18 21:00 96 01/27/18 20:32 97 01/27/18 20:00 96 01/27/18 18:00 98 01/27/18 16:00 98 01/27/18 14:00 99 01/27/18 13:23 94 L 01/27/18 13:12 01/27/18 12:55 97 01/27/18 10:17 100 01/27/18 08:48 100 Intake and Output 01/27/18 01/28/18 01/28/18 22:59 06:59 14:59 Intake Total 518.417 277.083 Balance 518.417 277.083 Intake: Intake, IV Titration 18.417 37.083 Amount Diltiazem 50 mg In Sodium 18.417 37.083 Chloride 0.9% 40 ml @ 5 MG/HR 5 mls/hr IV .Q10H [facility] Rx#:[id number] Oral 500 240 Other: Voiding Method Bedside Commode Bedside Commode Bedpan Bedpan # Voids 2 3 Weight 56.8 kg PHYSICAL EXAMINATION: GENERAL: This is a pleasant 72-year-old female in no apparent distress at the time of my examination HEENT: Head is atraumatic, normocephalic. Pupils equal, round. Sclera anicteric. Conjunctiva are clear. Mucous membranes of the mouth are moist. Neck is supple. There is elevated jugular venous pressure.] bruit is heard. HEART EXAMINATION: Heart S1, S2 grade II/IV systolic murmur heard CHEST EXAMINATION: Lungs are diminished bilaterally to the bases, left greater than right ABDOMEN: Soft, nontender. Bowel sounds are heard. No organomegaly noted. EXTREMITIES: 2+ peripheral pulses with trace evidence of peripheral edema and no calf tenderness noted. NEUROLOGIC patient is awake, alert and oriented -3. . Results 01/28/18 03:36 01/28/18 03:36 Cardiac Enzymes 01/28/18 Range/Units 03:36 AST 27 (14-36) U/L Coagulation 01/28/18 Range/Units 03:36 PT 21.1 H (9.0-12.0) sec CBC 01/28/18 Range/Units 03:36 WBC 6.3 (3.8-10.6) k/uL RBC 4.20 (3.80-5.40) m/uL Hgb 9.8 L (11.4-16.0) gm/dL Hct 32.8 L (34.0-46.0) % Plt Count 276 (150-450) k/uL Comprehensive Metabolic Panel 01/28/18 Range/Units 03:36 Sodium 141 (137-145) mmol/L Potassium 3.2 L (3.5-5.1) mmol/L Chloride 97 L (98-107) mmol/L Carbon Dioxide 28 (22-30) mmol/L BUN 19 H (7-17) mg/dL Creatinine 0.65 (0.52-1.04) mg/dL Glucose 163 H (74-99) mg/dL Calcium 8.8 (8.4-10.2) mg/dL AST 27 (14-36) U/L ALT 30 (9-52) U/L Alkaline Phosphatase 142 H (38-126) U/L Total Protein 6.9 (6.3-8.2) g/dL Albumin 3.6 (3.5-5.0) g/dL Current Medications Generic Name Dose Route Start Last Admin Trade Name Freq PRN Reason Stop Dose Admin Acetaminophen 650 mg 01/27/18 10:04 Tylenol Tab PO Q6HR PRN Mild Pain or Fever > 100.5 Hydrocodone Bitart/Acetaminophen 1 each 01/27/18 12:56 [place] 10 PO Q6H PRN MODERATE Pain Alprazolam 0.25 mg 01/27/18 12:56 Xanax PO BID PRN Anxiety Ascorbic Acid 500 mg 01/28/18 09:00 Vitamin C PO DAILY [facility] Budesonide/Formoterol Fumarate 2 puff 01/27/18 20:00 01/27/18 19:24 Symbicort 160-4.5 Mcg Inhaler INHALATION 2 puff RT-BID CARLOS Administration Cholecalciferol 2,000 unit 01/28/18 09:00 Vitamin D3 PO DAILY CARLOS Famotidine 20 mg 01/28/18 09:00 Pepcid PO DAILY [facility] Ferrous Sulfate 325 mg 01/27/18 13:33 01/27/18 20:30 Feosol PO 325 mg BID CARLOS Administration Furosemide 20 mg 01/27/18 16:00 01/28/18 01:35 Lasix IV 20 mg Q8HR CARLOS Administration Diltiazem HCl 50 mg/ Sodium 50 mls @ 5 mls/hr 01/27/18 18:30 01/28/18 05:15 Chloride IV 0 mg/hr .Q10H CARLOS 0 mls/hr Protocol Titration 5 MG/HR Levothyroxine Sodium 150 mcg 01/28/18 06:30 01/28/18 05:53 Synthroid PO 150 mcg DAILY@0630 CARLOS Administration Metoprolol Tartrate 25 mg 01/27/18 21:00 01/27/18 23:29 Lopressor PO 25 mg HS CARLOS Administration Miscellaneous Information 1 each 01/28/18 06:39 Potassium Per Protocol MISCELLANE DAILY PRN Per Protocol Protocol Naloxone HCl 0.2 mg 01/27/18 10:04 Narcan IV Q2M PRN Opioid Reversal Warfarin Sodium 2.5 mg 01/28/18 18:00 Coumadin PO DAILY@1800 CARLOS Intake and Output 01/27/18 01/28/18 01/28/18 22:59 06:59 14:59 Intake Total 518.417 277.083 Balance 518.417 277.083 Intake: Intake, IV Titration 18.417 37.083 Amount Diltiazem 50 mg In Sodium 18.417 37.083 Chloride 0.9% 40 ml @ 5 MG/HR 5 mls/hr IV .Q10H CARLOS Rx#:[id number] Oral 500 240 Other: Voiding Method Bedside Commode Bedside Commode Bedpan Bedpan # Voids 2 3 Weight 56.8 kg 01/28/18 03:36 01/28/18 03:36 EKG Interpretations (text) EKG shows atrial flutter with a controlled ventricular response Assessment and Plan Plan: Assessment and plan #1 systolic congestive heart failure acute on chronic #2 paroxysmal atrial fibrillation #3 paroxsysmal atrial flutter, typical #4 recent aortic valve replacement and mitral valve repair #5 iron deficiency anemia #6 COPD #7 rheumatoid arthritis #8 hypothyroidism Plan We will repeat an echocardiogram with Doppler study to assess the valves and LV function. Continue Coumadin. Replace potassium. Continue IV Lasix. Consider the addition of an antiarrhythmic, patient had been on amiodarone during the admission of her surgery, this was discontinued because of abnormal liver functions. Further recommendations to follow. DNP note has been reviewed, I agree with a documented findings and plan of care. Patient was seen and examined.
[2018-01-28] MEDS: SYMBICORT 160-4.5 MCG INHALER INHALATION SCH ×2 (09:12→20:21)
[2018-01-28] MEDS: CHOLECALCIFEROL 1,000 UNIT TAB PO SCH (09:17)
[2018-01-28] MEDS: ASCORBIC ACID 500 MG TAB PO SCH (09:17)
[2018-01-28] MEDS: FERROUS SULFATE 325 MG TAB PO SCH ×2 (09:18→21:11)
--- NOTE | 2018-01-28 10:05 | ECHOF ---
Referral Reason:recent AVR and mitral valve repair MEASUREMENTS -------- HEIGHT: 152.4 cm WEIGHT: 56.7 kg BP: 91/63 RVIDd: 2.8 cm (< 3.3) IVSd: 1.2 cm (0.6 - 1.1) LVIDd: 3.6 cm (3.9 - 5.3) LVPWd: 1.1 cm (0.6 - 1.1) IVSs: 1.6 cm LVIDs: 3.2 cm LVPWs: 1.4 cm LAESV Index (A-L): 47.16 ml/m Ao Diam: 2.9 cm (2.0 - 3.7) AV Cusp: 1.0 cm (1.5 - 2.6) LA Diam: 5.3 cm (2.7 - 3.8) MV E Nicholas: 2.19 m/s MV DecT: 288 ms MV A Nicholas: 1.48 m/s MV E/A Ratio: 1.47 AV maxP.54 mmHg AV meanP.95 mmHg RAP: 15.00 mmHg RVSP: 49.88 mmHg FINDINGS -------- Atrial fibrillation. This was a technically adequate study. Patient has history of aortic valve replacement and mitral v alve repair, October 2017. The left ventricular size is normal. There is mild concentric left ventricular hypertrophy. There is mild global hypokinesis of LV . Overall left ventricular systolic function is mildly impaired w ith, an EF between 45 - 50 %. The right ventricle is normal in size and function. LA is severely dilated >40 ml/m2 RA appears enlarged. Peak/mean gradient across the Aortic Valve is 37.54mmHg / 19.95mmHg. Normally functioning bioprosth etic valve. There is trace to mild mitral regurgitation. Mitral ring annulloplasty is in place. Mild tricuspid regurgitation present. There is mild pulmonary hypertension. The right ventricular systolic pressure, as measured by Doppler, is 49.88mmHg. The pulmonic valve was not well visualized. Trace/mild (physiologic) pulmonic regurgitation. The aortic root size is normal. The inferior vena cava is dilated with poor inspiratory collapse which is consistent with estimated r ight atrial pressure of 20 mmHg. There is no pericardial effusion. Large Pleural Effusion. CONCLUSIONS -------- 1. Atrial fibrillation. 2. This was a technically adequate study. 3. Patient has history of aortic valve replacement and mitral valve repair, October 2017. 4. The left ventricular size is normal. 5. There is mild concentric left ventricular hypertrophy. 6. There is mild global hypokinesis of LV . 7. Overall left ventricular systolic function is mildly impaired with, an EF between 45 - 50 %. 8. LA is severely dilated >40 ml/m2 9. RA appears enlarged. 10. Peak/mean gradient across the Aortic Valve is 37.54mmHg / 19.95mmHg. 11. Normally functioning bioprosthetic valve. 12. There is trace to mild mitral regurgitation. 13. Mitral ring annulloplasty is in place. 14. Mild tricuspid regurgitation present. 15. There is mild pulmonary hypertension. 16. Trace/mild (physiologic) pulmonic regurgitation. 17. The aortic root size is normal. 18. The inferior vena cava is dilated with poor inspiratory collapse which is consistent with estimat ed right atrial pressure of 20 mmHg. 19. There is no pericardial effusion. 20. Large Pleural Effusion. IOS ARCHITECT: Bang Guajardo RDCS
[2018-01-28] MEDS: POTASSIUM CHLORIDE ER 20 MEQ TAB.ER PO SCH ×2 (10:28→10:44)
[2018-01-28] MEDS: FAMOTIDINE 20 MG TAB PO SCH (10:28)
--- NOTE | 2018-01-28 11:16 | P.PN ---
Subjective Progress Note Date: 01/28/18 This is a 72-year-old female with a known history of congestive heart failure with an EF of 40-45%, COPD, iron deficiency anemia, hypothyroidism, mitral valve pair and aortic valve replacement in October 2007, paroxysmal atrial fibrillation, rheumatoid arthritis, chronic respiratory failure with home oxygen 2 L, history of coronary artery disease with previous CABG. Patient presents to the emergency room with worsening shortness of breath especially with activity and some lower extremity edema over the last 3 days. She is on Lasix at home. Patient reports that she has been taking it as scheduled. She is also anticoagulated with Coumadin for her physical atrial fibrillation as well as the aortic valve replacement. INR therapeutic at 2.9 on admission. Patient was started on IV Lasix for her congestive heart failure. She did have an elevated BNP 4770. Chest x-ray had shown correlate for pulmonary venous hypertension and interstitial edema. Cardiology will be consulted. She did have a EKG showing atrial flutter with a heart rate of 69. Patient denies any chest pain. Denies any fever or chills or sweats. Did admit to having some cough. Denies any nausea or vomiting. Denies any bowel movement changes or urinary symptoms. On 01/28/2018 patient is alert and oriented 3 shortness of breath has improved she denies any other complaints there is no chest pain no palpitation no fever or chills no headache or dizziness she has occasional cough no nausea or vomiting no abdominal pain no diarrhea and no urinary symptoms. She is still in atrial fibrillation heart rate is better controlled around 100. Objective - Vital Signs Vital signs: Vital Signs Temp 98.2 F 01/28/18 08:00 Pulse 88 01/28/18 08:00 Resp 24 01/28/18 08:00 BP 94/53 01/28/18 08:00 Pulse Ox 98 01/28/18 08:00 Intake & Output 01/27/18 01/28/18 01/28/18 18:59 06:59 18:59 Intake Total 600 795.500 Balance 600 795.500 Weight 55.792 kg 56.8 kg 56.8 kg Intake: Intake, IV Titration 55.500 Amount Diltiazem 50 mg In Sodium 55.500 Chloride 0.9% 40 ml @ 5 MG/HR 5 mls/hr IV .Q10H [facility] Rx#:[id number] Oral 600 740 Other: Voiding Method Bedside Commode Bedside Commode Bedside Commode Bedpan Bedpan # Voids 1 3 - Exam Head normocephalic and atraumatic Neck supple no JVD Lungs few scattered crackles bilaterally Heart irregular with murmur at aortic valve Abdomen is soft nontender nondistended positive bowel sounds no hepatosplenomegaly Extremities mild edema improved since yesterday Neuro alert and orientated to 3 - Labs CBC & Chem 7: 01/28/18 03:36 01/28/18 03:36 Labs: Abnormal Lab Results - Last 24 Hours (Table) 01/27/18 01/28/18 01/28/18 Range/Units 06:11 03:36 03:36 Hgb 9.8 L (11.4-16.0) gm/dL Hct 32.8 L (34.0-46.0) % MCV 78.1 L (80.0-100.0) fL MCH 23.3 L (25.0-35.0) pg MCHC 29.8 L (31.0-37.0) g/dL RDW 16.9 H (11.5-15.5) % PT 21.1 H (9.0-12.0) sec INR 2.3 H (<1.2) Potassium (3.5-5.1) mmol/L Chloride (98-107) mmol/L BUN (7-17) mg/dL Glucose (74-99) mg/dL Iron 15 L (50-170) ug/dL Iron Saturation 4.35 L (12.00-45.00) Alkaline Phosphatase (38-126) U/L 01/28/18 Range/Units 03:36 Hgb (11.4-16.0) gm/dL Hct (34.0-46.0) % MCV (80.0-100.0) fL MCH (25.0-35.0) pg MCHC (31.0-37.0) g/dL RDW (11.5-15.5) % PT (9.0-12.0) sec INR (<1.2) Potassium 3.2 L (3.5-5.1) mmol/L Chloride 97 L (98-107) mmol/L BUN 19 H (7-17) mg/dL Glucose 163 H (74-99) mg/dL Iron (50-170) ug/dL Iron Saturation (12.00-45.00) Alkaline Phosphatase 142 H (38-126) U/L Assessment and Plan Plan: 1. Acute on chronic systolic congestive heart failure exacerbation: Patient has been started on IV Lasix 20 mg every 8 hours in the ER. Cardiology will be consulted. BNP elevated on admission. Chest x-ray showing evidence of interstitial edema. Last echo October 2017 shows an EF of 40-45% She improved since yesterday 2. History of paroxysmal atrial fibrillation with EKG showing evidence of atrial flutter: Continue the metoprolol for rate control and Coumadin for anticoagulation 3. Recent aortic valve replacement and mitral valve repair in October 2017. INR therapeutic at 2.9. Continue current Coumadin dose 4. History of iron deficiency anemia. Hemoglobin 9.3. Check iron studies. Restart ferrous sulfate 325 mg twice a day. Unclear if patient has been taking this at home 5. History of COPD no evidence of exacerbation 6. History of rheumatoid arthritis 7. History of coronary artery disease with previous CABG 8. Hypothyroidism: Secondary to thyroidectomy .Continue Synthroid Patient improving possible transfer out of ICU today
[2018-01-28] MEDS: METOPROLOL TARTRATE 25 MG TAB PO SCH (15:40)
[2018-01-28] MEDS ORDERED: WARFARIN 3 MG TAB PO ONE (18:00)
[2018-01-28] MEDS ORDERED: WARFARIN 2.5 MG TAB PO SCH (18:00)
[2018-01-28] MEDS: SOTALOL 80 MG TAB PO SCH (21:13)
[2018-01-29] MEDS: LEVOTHYROXINE 75 MCG TAB PO SCH (05:59)
[2018-01-29 06:18] LABS: Anisocytosis Slight; HCT 29.9 % (34.0-46.0); HGB 9.1 gm/dL (11.4-16.0); Hypochromasia Marked; MCH 23.8 pg (25.0-35.0); MCHC 30.5 g/dL (31.0-37.0); MCV 78.2 fL (80.0-100.0); Mean Platelet Volume 7.3; Microcytosis Slight; Platelet Count 245 k/uL (150-450); RBC 3.83 m/uL (3.80-5.40); RDW 16.7 % (11.5-15.5); WBC 5.5 k/uL (3.8-10.6)
[2018-01-29 06:21] LABS: INR 1.7 (<1.2); Prothrombin Time 15.8 sec (9.0-12.0)
[2018-01-29 06:31] LABS: ALT 30 U/L (9-52); AST 23 U/L (14-36); Albumin 3.1 g/dL (3.5-5.0); Alkaline Phosphatase 119 U/L (38-126); Anion Gap 11 mmol/L; Blood Urea Nitrogen 22 mg/dL (7-17); Calcium 8.8 mg/dL (8.4-10.2); Carbon Dioxide 31 mmol/L (22-30); Chloride 99 mmol/L (98-107); Glucose 98 mg/dL (74-99); Sodium 141 mmol/L (137-145); Total Bilirubin 0.6 mg/dL (0.2-1.3); Total Protein 6.3 g/dL (6.3-8.2)
[2018-01-29] MEDS: FERROUS SULFATE 325 MG TAB PO SCH ×2 (08:14→19:46)
[2018-01-29] MEDS: CHOLECALCIFEROL 1,000 UNIT TAB PO SCH (08:14)
[2018-01-29] MEDS: ASCORBIC ACID 500 MG TAB PO SCH (08:14)
[2018-01-29] MEDS: FUROSEMIDE 10 MG/ML 2 ML VIAL IV SCH ×3 (08:14→23:02)
[2018-01-29] MEDS: FAMOTIDINE 20 MG TAB PO SCH (08:14)
[2018-01-29] MEDS: SOTALOL 80 MG TAB PO SCH ×2 (08:15→19:46)
[2018-01-29 08:20] LABS: Eosinophils # (M) 0.22 k/uL (0-0.7); Lymphocytes # (M) 1.32 k/uL (1.0-4.8); Monocytes # (M) 0.83 k/uL (0-1.0); Neutrophils # (M) 3.14 k/uL (1.3-7.7); Neutrophils % (M) 57 %; Nucleated Red Blood Cells 0 /100 WBC (0-0); Total Cells Counted 100
[2018-01-29 08:21] LABS: Poikilocytosis (M) Present
[2018-01-29] MEDS: SYMBICORT 160-4.5 MCG INHALER INHALATION SCH ×2 (08:31→20:20)
[2018-01-29 09:38] VITALS: BMI 23.5
--- NOTE | 2018-01-29 11:00 | P.PN ---
Subjective Progress Note Date: 01/29/18 This is a 72-year-old female with a known history of congestive heart failure with an EF of 40-45%, COPD, iron deficiency anemia, hypothyroidism, mitral valve pair and aortic valve replacement in October 2007, paroxysmal atrial fibrillation, rheumatoid arthritis, chronic respiratory failure with home oxygen 2 L, history of coronary artery disease with previous CABG. Patient presents to the emergency room with worsening shortness of breath especially with activity and some lower extremity edema over the last 3 days. She is on Lasix at home. Patient reports that she has been taking it as scheduled. She is also anticoagulated with Coumadin for her physical atrial fibrillation as well as the aortic valve replacement. INR therapeutic at 2.9 on admission. Patient was started on IV Lasix for her congestive heart failure. She did have an elevated BNP 4770. Chest x-ray had shown correlate for pulmonary venous hypertension and interstitial edema. Cardiology will be consulted. She did have a EKG showing atrial flutter with a heart rate of 69. Patient denies any chest pain. Denies any fever or chills or sweats. Did admit to having some cough. Denies any nausea or vomiting. Denies any bowel movement changes or urinary symptoms. On 01/28/2018 patient is alert and oriented 3 shortness of breath has improved she denies any other complaints there is no chest pain no palpitation no fever or chills no headache or dizziness she has occasional cough no nausea or vomiting no abdominal pain no diarrhea and no urinary symptoms. She is still in atrial fibrillation heart rate is better controlled around 100. 01/29/2018 shortness of breath is improving. Denies any chest pain. Reports having bowel movements. Denies any difficulty urinating. Heart rate is controlled. Atrial flutter on monitor. INR subtherapeutic at 1.7. She'll be placed on Lovenox until INR is therapeutic. Echo shows an EF of 45-50% with mild pulmonary hypertension mild global hypokinesis of the LV and large pleural effusion Objective - Vital Signs Vital signs: Vital Signs Temp 99.3 F 01/29/18 08:00 Pulse 93 01/29/18 08:00 Resp 18 01/29/18 08:00 BP 112/59 01/29/18 08:00 Pulse Ox 93 L 01/29/18 08:33 Intake & Output 01/28/18 01/29/18 01/29/18 18:59 06:59 18:59 Intake Total 692 360 436 Output Total 100 Balance 592 360 436 Weight 56.8 kg 54.7 kg 54.7 kg Intake: Oral 692 360 436 Output: Urine 100 Other: Voiding Method Bedside Commode Bedside Commode Bedside Commode Bedpan Bedpan Bedpan # Voids 1 2 - Exam Head normocephalic Neck supple Lungs diminished bilaterally more on the left Heart regular rate and rhythm S1-S2, no rub or gallop Abdomen is soft nontender nondistended positive bowel sounds no hepatosplenomegaly Extremities edema bilaterally but improving. Legs are softer Neuro alert and orientated to 3 - Labs CBC & Chem 7: 01/29/18 05:50 01/29/18 05:50 Labs: Abnormal Lab Results - Last 24 Hours (Table) 01/29/18 01/29/18 01/29/18 Range/Units 05:50 05:50 05:50 Hgb 9.1 L (11.4-16.0) gm/dL Hct 29.9 L (34.0-46.0) % MCV 78.2 L (80.0-100.0) fL MCH 23.8 L (25.0-35.0) pg MCHC 30.5 L (31.0-37.0) g/dL RDW 16.7 H (11.5-15.5) % PT 15.8 H (9.0-12.0) sec INR 1.7 H (<1.2) Carbon Dioxide 31 H (22-30) mmol/L BUN 22 H (7-17) mg/dL Albumin 3.1 L (3.5-5.0) g/dL Assessment and Plan Assessment: 1. Acute on chronic systolic congestive heart failure exacerbation: Patient has been started on IV Lasix 20 mg every 8 hours in the ER. Cardiology will be consulted. BNP elevated on admission. Chest x-ray showing evidence of interstitial edema. We'll repeat chest x-ray. Cardiology following 2. History of paroxysmal atrial fibrillation with EKG showing evidence of atrial flutter: Heart rate has improved with the addition of the Betapace 80 mg twice a day. Continue metoprolol 25 daily. 3. Recent aortic valve replacement and mitral valve repair in October 2017. Patient's INR is subtherapeutic at 1.7. She'll give Coumadin 7.5 mg tonight. Start Lovenox 60 mg subcu every 12 hours until INR is therapeutic 4. History of iron deficiency anemia. Continue iron supplement. Iron low at 15 5. History of COPD no evidence of exacerbation 6. History of rheumatoid arthritis 7. Hypothyroidism: Secondary to thyroidectomy .Continue Synthroid Prophylaxis Pepcid and DVT prophylaxis Coumadin and Lovenox I performed an examination of the patient and discussed their management with the physician Physical Therapy Nurse. I have reviewed the Physician Physical Therapy Nurse's notes and agree with the documented findings and plan of care
[2018-01-29] MEDS ORDERED: SODIUM CHLORIDE 0.9% 1,000 ML IV SCH (11:15)
[2018-01-29] MEDS: ENOXAPARIN 60 MG/0.6 ML SYRINGE SQ SCH ×2 (11:41→19:45)
[2018-01-29] MEDS ORDERED: WARFARIN 5 MG TAB PO ONE (12:00)
--- NOTE | 2018-01-29 14:56 | P.PN ---
Subjective Progress Note Date: 01/29/18 This is a pleasant 72-year-old female with history of aortic valve replacement with bioprosthetic aortic valve as well as mitral valve repair in October of this year, paroxysmal atrial fibrillation, atrial flutter, typical, iron deficiency anemia, rheumatoid arthritis, nonischemic cardiomyopathy, who presents to the hospital with symptoms of progressively worsening shortness of breath. EKG on arrival here showed atrial flutter with a controlled ventricular response. Chest x-ray showed pulmonary venous hypertension and interstitial edema. Let pressure on arrival 102/76, heart rate in the 90s, 97% on 2 L of oxygen. White blood cell count 6.3, hemoglobin 9.8, platelet count 276. INR 2.3. Sodium 141, potassium 3.2 which is being replaced, BUN 19, creatinine 0.6. Magnesium 2.0, iron 15 TIBC 345, iron saturation 4.3, ferritin 69. AST and ALT are normal. Alk phos 142. Troponin 0.012 and BNP level 4770. Echocardiogram with Doppler study performed in October of this year revealed an ejection fraction of 40-45% normally functioning bioprosthetic valve trace of MR. Patient did have a cardiac catheterization prior to her valve surgery which revealed normal coronary arteries. The patient was initiated on IV Lasix in the emergency room she has been diuresing through the night although her weight is not documented to be down. The patient is currently on a Cardizem drip at 10 mg per hour heart rate in the 60s to 70s, atrial flutter. At the time of my examination, patient does state that her breathing is significantly improved. She did have mild swelling in her lower extremities on presentation here which has also improved significantly. 01/29/2018 Patient was seen and examined this morning, continues to be in atrial flutter with a controlled ventricular response. At pressure 102/40, heart rate in the 50s, 94% on room air. Hemoglobin 9.1, platelet count 245. INR today 1.7, sodium 141, potassium 4.0, BUN 22, creatinine 0.6. TSH level 2.01. Alberto Esquivel did have a discussion with the patient, the plan is to proceed with cardioversion tomorrow. The be performed by Dr. Flores. We will give the patient 5 mg of Coumadin now. Check PT/INR tool design draftsperson tomorrow. Objective - Vital Signs Vital signs: Vital Signs Temp 99.3 F 01/29/18 14:43 Pulse 58 L 01/29/18 14:46 Resp 16 01/29/18 14:46 BP 102/46 01/29/18 14:43 Pulse Ox 94 L 01/29/18 14:43 Intake & Output 01/28/18 01/29/18 01/29/18 18:59 06:59 18:59 Intake Total 692 360 754 Output Total 100 Balance 592 360 754 Weight 56.8 kg 54.7 kg 54.9 kg Intake: Intake, IV Titration 0 Amount Sodium Chloride 0.9% 1, 0 000 ml @ 20 mls/hr IV . Q24H [facility] Rx#:[id number] Oral 692 360 754 Output: Urine 100 Other: Voiding Method Bedside Commode Bedside Commode Bedside Commode Bedpan Bedpan Bedpan # Voids 1 2 - Exam GENERAL: This is a pleasant 72-year-old female in no apparent distress at the time of my examination HEENT: Head is atraumatic, normocephalic. Pupils equal, round. Sclera anicteric. Conjunctiva are clear. Mucous membranes of the mouth are moist. Neck is supple. There is elevated jugular venous pressure.] bruit is heard. HEART EXAMINATION: Heart S1, S2 irregularly irregular grade II/IV systolic murmur heard CHEST EXAMINATION: Lungs are diminished bilaterally to the bases, left greater than right ABDOMEN: Soft, nontender. Bowel sounds are heard. No organomegaly noted. EXTREMITIES: 2+ peripheral pulses with trace evidence of peripheral edema and no calf tenderness noted. NEUROLOGIC patient is awake, alert and oriented -3. - Labs CBC & Chem 7: 01/29/18 05:50 01/29/18 05:50 Labs: Abnormal Lab Results - Last 24 Hours (Table) 01/29/18 01/29/18 01/29/18 Range/Units 05:50 05:50 05:50 Hgb 9.1 L (11.4-16.0) gm/dL Hct 29.9 L (34.0-46.0) % MCV 78.2 L (80.0-100.0) fL MCH 23.8 L (25.0-35.0) pg MCHC 30.5 L (31.0-37.0) g/dL RDW 16.7 H (11.5-15.5) % PT 15.8 H (9.0-12.0) sec INR 1.7 H (<1.2) Carbon Dioxide 31 H (22-30) mmol/L BUN 22 H (7-17) mg/dL Albumin 3.1 L (3.5-5.0) g/dL Assessment and Plan Plan: Assessment and plan #1 systolic congestive heart failure acute on chronic #2 paroxysmal atrial fibrillation #3 paroxsysmal atrial flutter, typical #4 recent aortic valve replacement and mitral valve repair #5 iron deficiency anemia #6 COPD #7 rheumatoid arthritis #8 hypothyroidism Plan Repeat echocardiogram with Doppler study revealed an ejection fraction of 45-50% . Normally functioning bioprosthetic valve. Mitral ring annuloplasty is in place. Patient continues to be in atrial flutter, she will be given 5 mg of Coumadin today, scheduled for MATTHEW and cardioversion tomorrow with Dr. Flores. DNP note has been reviewed, I agree with a documented findings and plan of care. Patient was seen and examined.
--- NOTE | 2018-01-29 14:58 | XR ---
EXAMINATION TYPE: XR chest 2V DATE OF EXAM: 01/29/2018 COMPARISON: Prior chest 01/27/2018 HISTORY: Congestive heart failure TECHNIQUE: Frontal and lateral views of the chest are obtained. FINDINGS: Patient is post median sternotomy, atrial appendage clipping, aortic valve replacement. Pl eural parenchymal changes are similar. Postop change noted to the right shoulder. No evident pneumoth orax. Interstitium is mildly increased. There are overlying cardiac leads. Thickening along the left lateral chest wall, costophrenic angle is noted may represent effusion, there may be chronic pleural reaction. Pulmonary artery appears prominently, there may be underlying pulmonary artery hypertension . IMPRESSION: Correlate for volume overload, pulmonary venous hypertension and interstitial edema. Cor relate for pulmonary artery hypertension.
[2018-01-29] MEDS ORDERED: WARFARIN 7.5 MG TAB PO ONE (18:00)
[2018-01-29] MEDS: HYDROcodone/APAP 10-325MG 1 EACH TAB PO PRN (23:02)
[2018-01-30] MEDS: LEVOTHYROXINE 75 MCG TAB PO SCH (05:27)
[2018-01-30] MEDS ORDERED: BENZOCAINE SPRAY 1 CAN MUCOUS MEM ONE (07:08)
[2018-01-30] MEDS ORDERED: LACTATED RINGERS 1,000 ML IV ONE (07:10)
[2018-01-30] MEDS ORDERED: LIDOCAINE 1% INJ 10MG/ML (20 ML MDV) ONE (07:10)
[2018-01-30] MEDS ORDERED: PROPOFOL 10 MG/ML 20 ML VIAL IV ONE (07:10)
[2018-01-30] MEDS ORDERED: SODIUM CHLORIDE 0.9% 1,000 ML IV SCH (07:45)
--- NOTE | 2018-01-30 07:48 | ECHOT ---
TRANSESOPHAGEAL ECHOCARDIOGRAM INDICATION: Evaluation of left ventricular systolic function and left atrium. PROCEDURE: After explaining the procedure to the patient, its risks and the complications. Blood pressure, heart rate , O2 saturation was monitored. She received sedation per the anesthesia department. The probe was introduced into the esophagus without difficulty. Images were obtained. Following that, the probe was removed. There was no immediate complication. FINDING: Biatrial enlargement was noted. The left atrial appendage was closed. The left ventricular size was normal. There was evidence of global hypokinesis. Estimated ejection fraction 40%. The aortic valve is a bioprosthetic valve with normal appearance. Mitral annuloplasty was noted. The tricuspid valve is normal. Descending thoracic aorta appears to be normal. No pericardial effusion was noted. Contrast bubble study revealed no shunting across the interatrial septum. Doppler pulse wave and color obtained and revealed mild mitral regurgitation and moderate tricuspid regurgitation. There was no evidence of significant pulmonary hypertension. No shunting was noted by color Doppler study. CONCLUSION: 1. Biatrial enlargement. 2. Sutured left atrial appendage. 3. Normal left ventricular size with moderate global hypokinesis. 4. Bioprosthetic aortic valve with normal functioning. 5. Mitral annuloplasty with mitral valve repair and mild mitral regurgitation. 6. Moderate tricuspid regurgitation with no evidence of pulmonary hypertension. 7. No evidence of shunting across the interatrial septum. MMODL / IJN: [id number] /
--- NOTE | 2018-01-30 08:15 | CE ---
CARDIAC ELECTROPHYSIOLOGY REPORT CARDIOVERSION PROCEDURE NOTE INDICATION: Atrial flutter. PROCEDURE: After explaining the procedure to the patient, its risks and the complications and after performing transesophageal echocardiogram and obtaining a sedated state by the anesthesia department, a synchronized biphasic cardioversion using 200 joules was performed with sikh of normal sinus rhythm. There was no immediate complication. KODI / YUMIKON: [id number] /
[2018-01-30] MEDS: HYDROcodone/APAP 10-325MG 1 EACH TAB PO PRN ×2 (08:49→16:00)
[2018-01-30] MEDS: FAMOTIDINE 20 MG TAB PO SCH (08:51)
[2018-01-30] MEDS: METOPROLOL TARTRATE 25 MG TAB PO SCH (08:51)
[2018-01-30] MEDS: CHOLECALCIFEROL 1,000 UNIT TAB PO SCH (08:51)
[2018-01-30] MEDS: ENOXAPARIN 60 MG/0.6 ML SYRINGE SQ SCH (08:51)
[2018-01-30] MEDS: ASCORBIC ACID 500 MG TAB PO SCH (08:51)
[2018-01-30] MEDS: FUROSEMIDE 10 MG/ML 2 ML VIAL IV SCH (08:51)
[2018-01-30] MEDS: FERROUS SULFATE 325 MG TAB PO SCH (08:51)
[2018-01-30] MEDS: SOTALOL 80 MG TAB PO SCH (08:51)
[2018-01-30] MEDS: SYMBICORT 160-4.5 MCG INHALER INHALATION SCH (08:52)
[2018-01-30 10:51] VITALS: BP 95/62; PULSE 83; RESP 16; TEMP 98
[2018-01-30 11:10] LABS: Anisocytosis Slight; Basophils % (A) 1 %; Eosinophils # (A) 0.2 k/uL (0-0.7); Eosinophils % (A) 3 %; HCT 32.7 % (34.0-46.0); HGB 9.7 gm/dL (11.4-16.0); Hypochromasia Marked; Lymphocytes # (A) 1.4 k/uL (1.0-4.8); Lymphocytes % (A) 23 %; MCH 23.2 pg (25.0-35.0); MCHC 29.7 g/dL (31.0-37.0); MCV 77.9 fL (80.0-100.0); Mean Platelet Volume 7.6; Microcytosis Slight; Monocytes # (A) 0.3 k/uL (0-1.0); Monocytes % (A) 6 %; Neutrophils # (A) 3.9 k/uL (1.3-7.7); Neutrophils % (A) 64 %; Platelet Count 263 k/uL (150-450); RBC 4.19 m/uL (3.80-5.40); RDW 17.1 % (11.5-15.5); WBC 6.1 k/uL (3.8-10.6)
[2018-01-30 11:16] LABS: INR 1.9 (<1.2)
[2018-01-30 11:27] LABS: ALT 31 U/L (9-52); AST 23 U/L (14-36); Albumin 3.4 g/dL (3.5-5.0); Alkaline Phosphatase 120 U/L (38-126); Anion Gap 13 mmol/L; Blood Urea Nitrogen 20 mg/dL (7-17); Calcium 8.8 mg/dL (8.4-10.2); Carbon Dioxide 29 mmol/L (22-30); Chloride 97 mmol/L (98-107); Glucose 99 mg/dL (74-99); Potassium 4.1 mmol/L (3.5-5.1); Sodium 139 mmol/L (137-145); Total Bilirubin 0.8 mg/dL (0.2-1.3); Total Protein 6.6 g/dL (6.3-8.2)
[2018-01-30] MEDS ORDERED: WARFARIN 3 MG TAB PO ONE (12:00)
--- NOTE | 2018-01-30 13:35 | P.PN ---
Subjective Progress Note Date: 01/30/18 This is a 72-year-old female with a known history of congestive heart failure with an EF of 40-45%, COPD, iron deficiency anemia, hypothyroidism, mitral valve pair and aortic valve replacement in October 2007, paroxysmal atrial fibrillation, rheumatoid arthritis, chronic respiratory failure with home oxygen 2 L, history of coronary artery disease with previous CABG. Patient presents to the emergency room with worsening shortness of breath especially with activity and some lower extremity edema over the last 3 days. She is on Lasix at home. Patient reports that she has been taking it as scheduled. She is also anticoagulated with Coumadin for her physical atrial fibrillation as well as the aortic valve replacement. INR therapeutic at 2.9 on admission. Patient was started on IV Lasix for her congestive heart failure. She did have an elevated BNP 4770. Chest x-ray had shown correlate for pulmonary venous hypertension and interstitial edema. Cardiology will be consulted. She did have a EKG showing atrial flutter with a heart rate of 69. Patient denies any chest pain. Denies any fever or chills or sweats. Did admit to having some cough. Denies any nausea or vomiting. Denies any bowel movement changes or urinary symptoms. On 01/28/2018 patient is alert and oriented 3 shortness of breath has improved she denies any other complaints there is no chest pain no palpitation no fever or chills no headache or dizziness she has occasional cough no nausea or vomiting no abdominal pain no diarrhea and no urinary symptoms. She is still in atrial fibrillation heart rate is better controlled around 100. 01/29/2018 shortness of breath is improving. Denies any chest pain. Reports having bowel movements. Denies any difficulty urinating. Heart rate is controlled. Atrial flutter on monitor. INR subtherapeutic at 1.7. She'll be placed on Lovenox until INR is therapeutic. Echo shows an EF of 45-50% with mild pulmonary hypertension mild global hypokinesis of the LV and large pleural effusion On 01/30/2018 patient is alert and oriented 3 in no apparent distress her shortness of breath has improved she denies any chest pain there is no fever or chills no headache or dizziness no nausea or vomiting no abdominal pain and no urinary symptoms INR is still slightly subtherapeutic at 1.9 Objective - Vital Signs Vital signs: Vital Signs Temp 98 F 01/30/18 08:46 Pulse 83 01/30/18 08:46 Resp 16 01/30/18 11:18 BP 95/62 01/30/18 08:46 Pulse Ox 99 01/30/18 08:46 Intake & Output 01/29/18 01/30/18 01/30/18 18:59 06:59 18:59 Intake Total 994 180 240 Output Total 1550 425 Balance 994 -1370 -185 Weight 54.9 kg 55.3 kg Intake: Intake, IV Titration 0 Amount Sodium Chloride 0.9% 1, 0 000 ml @ 20 mls/hr IV . Q24H [facility] Rx#:[id number] Oral 994 180 240 Output: Urine 1550 425 Other: Voiding Method Bedside Commode Bedside Commode Bedside Commode Bedpan # Voids 2 - Exam Head normocephalic and atraumatic Neck supple no JVD Lungs few scattered crackles bilaterally Heart irregular with murmur at aortic valve Abdomen is soft nontender nondistended positive bowel sounds no hepatosplenomegaly Extremities mild edema improved since yesterday Neuro alert and orientated to 3 - Labs CBC & Chem 7: 01/30/18 10:42 01/30/18 10:42 Labs: Abnormal Lab Results - Last 24 Hours (Table) 01/30/18 01/30/18 01/30/18 Range/Units 10:42 10:42 10:42 Hgb 9.7 L (11.4-16.0) gm/dL Hct 32.7 L (34.0-46.0) % MCV 77.9 L (80.0-100.0) fL MCH 23.2 L (25.0-35.0) pg MCHC 29.7 L (31.0-37.0) g/dL RDW 17.1 H (11.5-15.5) % PT 17.0 H (9.0-12.0) sec INR 1.9 H (<1.2) Chloride 97 L (98-107) mmol/L BUN 20 H (7-17) mg/dL Albumin 3.4 L (3.5-5.0) g/dL Assessment and Plan Plan: 1. Acute on chronic systolic congestive heart failure exacerbation: Patient has been started on IV Lasix 20 mg every 8 hours in the ER. Cardiology will be consulted. BNP elevated on admission. Chest x-ray showing evidence of interstitial edema. Last echo October 2017 shows an EF of 40-45% She improved since yesterday 2. History of paroxysmal atrial fibrillation with EKG showing evidence of atrial flutter: Continue the metoprolol for rate control and Coumadin for anticoagulation 3. Recent aortic valve replacement and mitral valve repair in October 2017. INR therapeutic at 2.9. Continue current Coumadin dose 4. History of iron deficiency anemia. Hemoglobin 9.3. Check iron studies. Restart ferrous sulfate 325 mg twice a day. Unclear if patient has been taking this at home 5. History of COPD no evidence of exacerbation 6. History of rheumatoid arthritis 7. History of coronary artery disease with previous CABG 8. Hypothyroidism: Secondary to thyroidectomy .Continue Synthroid Patient improving, she was transferred out of ICU Patient underwent MATTHEW and cardioversion this morning Medication and labs were reviewed, continue current management
--- NOTE | 2018-01-30 15:18 | PN ---
PROGRESS NOTE Mrs. San underwent emergent MATTHEW and electrical cardioversion by Dr. Flores. She is in sinus rhythm. I had used sotalol before, but she is not happy with this medication. I will switch her to Rythmol 150 mg t.i.d. after waiting about 48 hours or more. I discussed this with the patient. She can go home later this evening or preferably tomorrow, but patient seems to insist on going home today. Vital signs are stable. S1-S2 heard normally. INR is 1.6. We will give her 3 mg of Coumadin and then she will take 2.5 mg every day and she will be seen in the office in a week, but will have a pro-time and INR in 48 hours to 72 hours. S1, S2 heard normally. Short systolic murmur noted. Lungs are clear. Abdomen and lower extremity exam unchanged. Mrs. San underwent mitral valve repair a few months ago and she is now back in sinus rhythm, doing well. MMODL / IJN: [id number] /
[2018-01-30] MEDS ORDERED: PROPAFENONE 150 MG TAB PO SCH (16:00)
--- NOTE | 2018-01-30 16:09 | P.DS ---
Providers Date of admission: 01/27/18 10:04 Expected date of discharge: 01/30/18 Attending physician: Olya Olson Consults: 01/27/18 13:00 Consult Physician Routine Consulting Provider: Cristóbal Riggins Consult Reason/Comments: CHF exacerbation Do you want consulting provider notified?: Yes Primary care physician: Olya [facility] Hospital Course: Diagnoses on discharge: 1. Acute on chronic systolic congestive heart failure exacerbation: Patient has been started on IV Lasix 20 mg every 8 hours in the ER. Cardiology will be consulted. BNP elevated on admission. Chest x-ray showing evidence of interstitial edema. Last echo October 2017 shows an EF of 40-45% She improved since yesterday 2. History of paroxysmal atrial fibrillation with EKG showing evidence of atrial flutter: Continue the metoprolol for rate control and Coumadin for anticoagulation Patient underwent MATTHEW and cardioversion this morning 3. Recent aortic valve replacement and mitral valve repair in October 2017. INR therapeutic at 2.9. Continue current Coumadin dose 4. History of iron deficiency anemia. Hemoglobin 9.3. Check iron studies. Restart ferrous sulfate 325 mg twice a day. Unclear if patient has been taking this at home 5. History of COPD no evidence of exacerbation 6. History of rheumatoid arthritis 7. History of coronary artery disease with previous CABG 8. Hypothyroidism: Secondary to thyroidectomy .Continue Synthroid Hospital course: This is a 72-year-old female with a known history of congestive heart failure with an EF of 40-45%, COPD, iron deficiency anemia, hypothyroidism, mitral valve pair and aortic valve replacement in October 2007, paroxysmal atrial fibrillation, rheumatoid arthritis, chronic respiratory failure with home oxygen 2 L, history of coronary artery disease with previous CABG. Patient presents to the emergency room with worsening shortness of breath especially with activity and some lower extremity edema over the last 3 days. She is on Lasix at home. Patient reports that she has been taking it as scheduled. She is also anticoagulated with Coumadin for her physical atrial fibrillation as well as the aortic valve replacement. INR therapeutic at 2.9 on admission. Patient was started on IV Lasix for her congestive heart failure. She did have an elevated BNP 4770. Chest x-ray had shown correlate for pulmonary venous hypertension and interstitial edema. Cardiology will be consulted. She did have a EKG showing atrial flutter with a heart rate of 69. Patient denies any chest pain. Denies any fever or chills or sweats. Did admit to having some cough. Denies any nausea or vomiting. Denies any bowel movement changes or urinary symptoms. On 01/28/2018 patient is alert and oriented 3 shortness of breath has improved she denies any other complaints there is no chest pain no palpitation no fever or chills no headache or dizziness she has occasional cough no nausea or vomiting no abdominal pain no diarrhea and no urinary symptoms. She is still in atrial fibrillation heart rate is better controlled around 100. 01/29/2018 shortness of breath is improving. Denies any chest pain. Reports having bowel movements. Denies any difficulty urinating. Heart rate is controlled. Atrial flutter on monitor. INR subtherapeutic at 1.7. She'll be placed on Lovenox until INR is therapeutic. Echo shows an EF of 45-50% with mild pulmonary hypertension mild global hypokinesis of the LV and large pleural effusion On 01/30/2018 patient is alert and oriented 3 in no apparent distress her shortness of breath has improved she denies any chest pain there is no fever or chills no headache or dizziness no nausea or vomiting no abdominal pain and no urinary symptoms INR is still slightly subtherapeutic at 1.9 Patient did well throughout this admission she insisted on going home on Friday , 01/30/2018 she will be followed by cardiology in 2-3 days she will also be followed in our office within 1 week Patient Condition at Discharge: Stable Plan - Discharge Summary Discharge Rx Participant: Yes New Discharge Prescriptions: New Ferrous Sulfate [Iron (65 MG Elemental)] 325 mg PO BID tab Continue Cholecalciferol [Vitamin D3] 2,000 units PO DAILY Ascorbic Acid [Vitamin C] 500 mg PO DAILY Fluticasone/Salmeterol [Advair Hfa 230-21 Mcg Inhaler] 3 puff INHALATION RT- TID HYDROcodone/APAP 10-325MG [Homer 10-325] 1 tab PO Q6H PRN PRN Reason: Pain Levothyroxine Sodium [Synthroid] 150 mcg PO DAILY ALPRAZolam [Xanax] 0.25 mg PO BID PRN PRN Reason: Anxiety Furosemide [Lasix] 20 mg PO BID@0900,1600 #60 tab Warfarin Sodium [Coumadin] 2.5 mg PO DAILY #30 tablet Metoprolol Tartrate [Lopressor] 25 mg PO HS Discharge Medication List Ascorbic Acid [Vitamin C] 500 mg PO DAILY 01/22/14 [History] Cholecalciferol [Vitamin D3] 2,000 units PO DAILY 01/22/14 [History] Fluticasone/Salmeterol [Advair Hfa 230-21 Mcg Inhaler] 3 puff INHALATION RT-TID 09/15/17 [History] ALPRAZolam [Xanax] 0.25 mg PO BID PRN 11/27/17 [History] HYDROcodone/APAP 10-325MG [Homer 10-325] 1 tab PO Q6H PRN 11/27/17 [History] Levothyroxine Sodium [Synthroid] 150 mcg PO DAILY 11/27/17 [History] Furosemide [Lasix] 20 mg PO BID@0900,1600 #60 tab 12/01/17 [Rx] Warfarin Sodium [Coumadin] 2.5 mg PO DAILY #30 tablet 12/01/17 [Rx] Metoprolol Tartrate [Lopressor] 25 mg PO HS 01/27/18 [History] Ferrous Sulfate [Iron (65 MG Elemental)] 325 mg PO BID tab 01/30/18 [Rx] Follow up Appointment(s)/Referral(s): Olya Olson MD [Primary Care Provider] - 1-2 days [facility] Visiting Nurse, [NON-STAFF] -
== END 2018-01-30 17:23 | disposition home health service (06) | DRG 292 ==
LOC: EC 05:26 → 6SEL 10:04 → 6ICU 12:52 → 6SEL 01-28 12:03
PROVIDERS: ADMIT Internal Medicine; ATTEND Internal Medicine
PROC: 5A2204Z Restoration of Cardiac Rhythm, Single (ICD-10-PCS; principal; 2018-01-30 07:00)
DX: I50.23 Acute on chronic systolic (congestive) heart failure (principal); I42.9 Cardiomyopathy, unspecified; I48.3 Typical atrial flutter; J96.10 Chronic respiratory failure, unspecified whether with hypoxia or hypercapnia; E89.0 Postprocedural hypothyroidism; I25.10 Atherosclerotic heart disease of native coronary artery without angina pectoris; I27.20 Pulmonary hypertension, unspecified; I48.0 Paroxysmal atrial fibrillation; J44.9 Chronic obstructive pulmonary disease, unspecified; K21.9 Gastro-esophageal reflux disease without esophagitis; M06.9 Rheumatoid arthritis, unspecified; D50.9 Iron deficiency anemia, unspecified; M19.90 Unspecified osteoarthritis, unspecified site; Z79.01 Long term (current) use of anticoagulants; Z79.899 Other long term (current) drug therapy; Z79.890 Hormone replacement therapy; Z88.8 Allergy status to other drugs, medicaments and biological substances; Z99.81 Dependence on supplemental oxygen; Z95.3 Presence of xenogenic heart valve; Z90.710 Acquired absence of both cervix and uterus; Z87.891 Personal history of nicotine dependence; Z87.442 Personal history of urinary calculi; Z87.440 Personal history of urinary (tract) infections; Z98.42 Cataract extraction status, left eye; Z98.41 Cataract extraction status, right eye; Z96.1 Presence of intraocular lens; Z96.653 Presence of artificial knee joint, bilateral; Z98.1 Arthrodesis status
CPT/HCPCS: 36415; 71046; 80053; 82550; 82553; 82728; 83540; 83550; 83735; 83880; 84443; 84484; 85025; 85610; 85730; 92960; 93005; 93306; 93312; 93320; 93325; 94640; 94760; 96374; 99285

== ENCOUNTER → 2018-05-06 | Outpatient (CLI) | payer MEDICARE, OTHER ==
--- NOTE | 2018-05-07 11:38 | XR ---
Limited cervical spine HISTORY: Neck pain, spondylosis 3 views of the cervical spine. Previous dated 07/28/2017 Patient unable to completely cooperate with the exam. Patient is post median sternotomy, prior shoulder arthroplasty. Postop changes status post posterior fusion of the cervical spine extending to the posterior cranium again noted. Alignment is stable, min imal anterolisthesis grade 1 C2-3, C3-C4, retrolisthesis grade 1 C4-5, C5-6. Anterolisthesis grade 1 C6-7. Loss of disc height present at the intervertebral levels C3-4, C4-5, C5-6 and C6-7, C7-T1 with associated spondylosis. Bone mineralization is reduced as on prior. 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 There is multilevel facet arthropathy. IMPRESSION: Stable neurosurgical follow-up.
== END | disposition home or self-care (01) ==
LOC: RADXRMAIN 16:13
DX: M47.22 Other spondylosis with radiculopathy, cervical region (principal); Z98.1 Arthrodesis status
CPT/HCPCS: 72040

== ENCOUNTER → 2018-07-31 | Outpatient (CLI) | payer MEDICARE, OTHER ==
--- NOTE | 2018-07-31 13:42 | US ---
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 SIDE PERFORMED: Right TECHNIQUE: The lower extremity deep venous system is examined utilizing real time linear array sonog [place] with graded compression, doppler sonography and color-flow sonography. VESSELS IMAGED: External Iliac Vein (EIV) Common Femoral Vein Deep Femoral Vein Greater Saphenous Vein * Femoral Vein Popliteal Vein Small Saphenous Vein * Proximal Calf Veins (* superficial vessels) Right Leg: Negative for DVT Grayscale, color doppler, spectral doppler imaging performed of the deep veins of the bilateral lower extremities. There is normal flow, compressibility, vascular waveforms. IMPRESSION: NO EVIDENCE FOR ACUTE DVT IN THE RIGHT LOWER EXTREMITY.
== END | disposition home or self-care (01) ==
LOC: RADUSWWP 13:05
PROVIDERS: ATTEND Internal Medicine
DX: M79.661 Pain in right lower leg (principal); R22.41 Localized swelling, mass and lump, right lower limb

== ENCOUNTER → 2018-08-03 | Outpatient (CLI) | payer MEDICARE, OTHER ==
--- NOTE | 2018-08-03 15:24 | XR ---
Right hip HISTORY: Pain 2 views of the right hip There is joint space loss, subchondral sclerosis and geode formation, marginal spurring and flattenin g the femoral head developed in the interval. Alignment is maintained. Subchondral lucency noted to t he femoral head. Bone mineralization is reduced in the remaining bones. No dislocation. IMPRESSION: Marked osteoarthritis, difficult to exclude osteonecrosis with femoral head collapse.
== END ==
LOC: RADXRMAIN 12:01
PROVIDERS: ATTEND Internal Medicine
DX: M16.11 Unilateral primary osteoarthritis, right hip (principal)
CPT/HCPCS: 73502

== ENCOUNTER → 2019-02-08 | Outpatient (CLI) | payer MEDICARE, OTHER ==
--- NOTE | 2019-02-08 15:06 | CT ---
EXAMINATION TYPE: CT cervical spine wo con DATE OF EXAM: 02/08/2019 COMPARISON: 01/26/2016 HISTORY: 73-year-old female Neck pain. Prior Surgery in 2017 TECHNIQUE: Contiguous axial scanning of the cervical spine without IV contrast. Coronal and sagittal reconstructions performed. CT DLP: 317.6 mGycm Automated exposure control for dose reduction was used. FINDINGS: Suboccipital and posterior cervical fusion extending from the occiput through C5 is new from 6. Laminectomy change has been performed at C1 and C2 levels. Residual chronic erosive change involvi ng the posterior margin of the C2 vertebral body now with bony ankylosis of C1-C2. Fixed grade 1 anterolisthesis at C3-C4. Stable grade 1, nearly grade 2 anterolisthesis at C6-C7 and grade 1 anterolisthesis at T2-T3. Moderate degenerative disc disease is present throughout along with hypertrophic facet and uncoverteb ral joint arthropathy likely contributing to variable mild narrowing of the spinal canal from C3 thro ugh C7 levels. At C3-C4, there is mild bilateral neuroforaminal stenosis. At C4-C5, there is moderate bilateral neural foraminal stenosis. At C5-C6, there is mild bilateral neuroforaminal stenosis. IMPRESSION: 1. INTERVAL SUBOCCIPITAL AND POSTERIOR CERVICAL FUSION EXTENDING FROM THE OCCIPUT DOWN TO C5 AND LAMI NECTOMIES AT C1 AND C2. THERE IS MATURE OSSEOUS FUSION AT C1 AND C2. 2. MODERATE MULTILEVEL DEGENERATIVE DISC DISEASE WITH UNCHANGED GRADE 1, NEARLY GRADE 2 ANTEROLISTHES IS AT C6-C7 AND GRADE 1 ANTEROLISTHESIS AT T2-T3. 3. SUSPECT VARIABLE MILD SPINAL CANAL NARROWING FROM C3-C7 LEVELS. 4. VARIABLE MILD TO MODERATE BILATERAL NEUROFORAMINAL STENOSES OUTLINED ABOVE.
== END | disposition home or self-care (01) ==
LOC: RADXRMAIN 12:32
DX: M48.02 Spinal stenosis, cervical region (principal); M43.13 Spondylolisthesis, cervicothoracic region; M50.33 Other cervical disc degeneration, cervicothoracic region; Z98.890 Other specified postprocedural states; Z98.1 Arthrodesis status
CPT/HCPCS: 72125

== ENCOUNTER 2019-07-28 14:51 | Inpatient (IN) | payer MEDICARE, OTHER ==
[2019-07-28] MEDS ORDERED: SODIUM CHLORIDE 0.9% 500 ML 500 ML IV ONE (15:13)
--- NOTE | 2019-07-28 15:29 | ED ---
General Adult HPI - General Chief complaint: Fever Stated complaint: Fever, infection Time Seen by Provider: 07/28/19 15:00 Source: patient, RN notes reviewed, old records reviewed Mode of arrival: ambulatory Limitations: no limitations - History of Present Illness Initial comments: 74 yo female presenting for evaluation of fever. Patient has multiple chronic illnesses. Patient has no specific complaints. She does appear dyspneic on exam. She denies cough. She reports mild sore throat. Denies abdominal pain. No vomiting. History is somewhat limited. Denies skin rash. No chest pain, no diarrhea. No known sick contacts. - Related Data Home Medications Medication Instructions Recorded Confirmed Fluticasone/Salmeterol [Advair Hfa 1 puff INHALATION RT-BID 09/15/17 07/28/19 230-21 Mcg Inhaler] ALPRAZolam [Xanax] 0.25 mg PO BID PRN 11/27/17 07/28/19 HYDROcodone/APAP 10-325MG [[place]ina 1 tab PO Q6H PRN 11/27/17 07/28/19 10-325] Metoprolol Tartrate [Lopressor] 25 mg PO BID 01/27/18 07/28/19 Albuterol Sulfate [Proair Hfa] 2 puff INHALATION RT-Q4H PRN 07/28/19 07/28/19 Furosemide [Lasix] 20 mg PO DAILY@1600 07/28/19 07/28/19 Furosemide [Lasix] 40 mg PO DAILY@0900 07/28/19 07/28/19 Levothyroxine Sodium [Levoxyl] 200 mcg PO DAILY 07/28/19 07/28/19 Previous Rx's Medication Instructions Recorded Warfarin Sodium [Coumadin] 2.5 mg PO DAILY #30 tablet 12/01/17 Ferrous Sulfate [Feosol] 325 mg PO DAILY #30 tab 01/30/18 Propafenone [Rythmol] 150 mg PO TID #90 tablet 01/30/18 Allergies Allergy/AdvReac Type Severity Reaction Status Date / Time lisinopril Allergy Unknown Verified 07/28/19 16:09 Review of Systems ROS Statement: Those systems with pertinent positive or pertinent negative responses have been documented in the HPI. ROS Other: All systems not noted in ROS Statement are negative. Past Medical History Past Medical History: Atrial Fibrillation, Heart Failure, COPD, GERD/Reflux, Osteoarthritis (OA), Renal Disease, Rheumatoid Arthritis (RA), Supraventricular Tachycardia (SVT), Thyroid Disorder Additional Past Medical History / Comment(s): Paroxysmal Afib, SVT, nonsustained VT, SOB with exertion, home O2 at 2L/NC usually prn but lately ATC, arthritis, RA several joints, current L elbow pain/swelling-had "injection", nephrolithiasis, hypothyroid, diverticular dx, UTI, iron deficiency anemia. History of Any Multi-Drug Resistant Organisms: None Reported Past Surgical History: Coronary Bypass/CABG, Heart Catheterization, Hysterectomy, Joint Replacement, Orthopedic Surgery Additional Past Surgical History / Comment(s): Geoff total knees arthroplasty,lt hip arthroplasty, goiter removed 1963, partial thyroidectomy, cataracts removed with lens implants, REVERSE TOTAL RIGHT SHOULDER; Rotator cuff R shoulder, cervical fusion/injections, colonoscopy, MATTHEW, valve surgery at [facility] 10/13/17 Prosthetic Aortic valve and mitral valve repair. Past Anesthesia/Blood Transfusion Reactions: No Reported Reaction Past Psychological History: No Psychological Hx Reported Smoking Status: Former smoker Past Alcohol Use History: None Reported Past Drug Use History: None Reported - Past Family History Father Additional Family Medical History / Comment(s): in his 80's of a mi Mother Additional Family Medical History / Comment(s): age 88 in [place] [facility] pt not sure what she from. hx smoking. General Exam Limitations: no limitations General appearance: alert Head exam: Present: atraumatic, normocephalic Eye exam: Present: normal appearance, PERRL ENT exam: Present: mucous membranes dry, other (Posterior oropharynx is erythem atous with thrush) Respiratory exam: Present: respiratory distress, rhonchi, decreased breath sounds Cardiovascular Exam: Present: regular rate, normal rhythm GI/Abdominal exam: Present: soft. Absent: distended, tenderness, guarding, rebound Extremities exam: Present: normal inspection, normal capillary refill. Absent: pedal edema Neurological exam: Present: alert Skin exam: Present: warm, dry. Absent: cyanosis, diaphoretic Course Vital Signs 07/28/19 07/28/19 07/28/19 14:58 16:15 16:28 Temperature 99.9 F H 100.9 F H Pulse Rate 101 H 102 H 103 H Respiratory 18 18 16 Rate Blood Pressure 120/66 127/76 O2 Sat by Pulse 92 L 91 L Oximetry 07/28/19 16:35 Temperature Pulse Rate 105 H Respiratory 16 Rate Blood Pressure O2 Sat by Pulse Oximetry EKG Findings - EKG Comments: EKG Findings:: EKG sinus tachycardia rate of 106 with first-degree AV block PVCs, left atrial enlargement, T-wave abnormality in the lateral precordium, MN interval 228, QRS duration 82, QTC 438. Medical Decision Making - Medical Decision Making 74 yo female presenting with fever from primary care office. Fever was 102. Patient has really no specific complaints. She appears moderately dyspneic on initial evaluation. She's got bilateral rhonchi and diminished breath sounds. Fever workup is initiated emergency department included chest x-ray, urinalysis, CBC, and blood culture. She has no abdominal pain. She has no skin rashes. She has no dysuria. No significant cough. X-rays performed, consistent with fluid overload, do suspect a concurrent pneumonia. She is a mildly elevated white blood cell count 11.4, normal lactic acid, urinalysis showing 42 red cells with no leukocytosis. She is initiated on antibiotics ceftriaxone and azithromycin emergency department. She will be For treatment of CHF as well as fever with suspected pneumonia. Case is discussed with primary care physician Dr. Olson - Lab Data Result diagrams: 07/28/19 15:39 07/28/19 15:39 Lab Results 07/28/19 07/28/19 07/28/19 Range/Units 15:39 15:39 15:39 WBC 11.4 H (3.8-10.6) k/uL RBC 5.10 (3.80-5.40) m/uL Hgb 13.6 (11.4-16.0) gm/dL Hct 42.6 (34.0-46.0) % MCV 83.6 (80.0-100.0) fL MCH 26.6 (25.0-35.0) pg MCHC 31.8 (31.0-37.0) g/dL RDW 18.1 H (11.5-15.5) % Plt Count 233 (150-450) k/uL Neutrophils % 84 % Lymphocytes % 8 % Monocytes % 4 % Eosinophils % 2 % Basophils % 0 % Neutrophils # 9.6 H (1.3-7.7) k/uL Lymphocytes # 0.9 L (1.0-4.8) k/uL Monocytes # 0.5 (0-1.0) k/uL Eosinophils # 0.2 (0-0.7) k/uL Basophils # 0.0 (0-0.2) k/uL Hypochromasia Slight Anisocytosis Slight PT 24.1 H (9.0-12.0) sec INR 2.5 H (<1.2) APTT 27.9 (22.0-30.0) sec Sodium 137 (137-145) mmol/L Potassium 4.0 (3.5-5.1) mmol/L Chloride 102 (98-107) mmol/L Carbon Dioxide 25 (22-30) mmol/L Anion Gap 10 mmol/L BUN 13 (7-17) mg/dL Creatinine 0.56 (0.52-1.04) mg/dL Est GFR (CKD-EPI)AfAm >90 (>60 ml/min/1.73 sqM) Est GFR (CKD-EPI)NonAf >90 (>60 ml/min/1.73 sqM) Glucose 111 H (74-99) mg/dL Calcium 9.4 (8.4-10.2) mg/dL Total Bilirubin 1.2 (0.2-1.3) mg/dL AST 34 (14-36) U/L ALT 36 (9-52) U/L Alkaline Phosphatase 143 H (38-126) U/L NT-Pro-B Natriuret Pep pg/mL Total Protein 8.1 (6.3-8.2) g/dL Albumin 4.3 (3.5-5.0) g/dL Urine Color Urine Appearance (Clear) Urine pH (5.0-8.0) Ur Specific [place] (1.001-1.035) Urine Protein (Negative) Urine Glucose (UA) (Negative) Urine Ketones (Negative) Urine Blood (Negative) Urine Nitrite (Negative) Urine Bilirubin (Negative) Urine Urobilinogen (<2.0) mg/dL Ur Leukocyte Esterase (Negative) Urine RBC (0-5) /hpf Urine WBC (0-5) /hpf Ur Squamous Epith Cells (0-4) /hpf Urine Mucus (None) /hpf Influenza Type A RNA (Not Detectd) Influenza Type B (PCR) (Not Detectd) 07/28/19 07/28/1919 Range/Units 15:39 15:40 16:08 WBC (3.8-10.6) k/uL RBC (3.80-5.40) m/uL Hgb (11.4-16.0) gm/dL Hct (34.0-46.0) % MCV (80.0-100.0) fL MCH (25.0-35.0) pg MCHC (31.0-37.0) g/dL RDW (11.5-15.5) % Plt Count (150-450) k/uL Neutrophils % % Lymphocytes % % Monocytes % % Eosinophils % % Basophils % % Neutrophils # (1.3-7.7) k/uL Lymphocytes # (1.0-4.8) k/uL Monocytes # (0-1.0) k/uL Eosinophils # (0-0.7) k/uL Basophils # (0-0.2) k/uL Hypochromasia Anisocytosis PT (9.0-12.0) sec INR (<1.2) APTT (22.0-30.0) sec Sodium (137-145) mmol/L Potassium (3.5-5.1) mmol/L Chloride (98-107) mmol/L Carbon Dioxide (22-30) mmol/L Anion Gap mmol/L BUN (7-17) mg/dL Creatinine (0.52-1.04) mg/dL Est GFR (CKD-EPI)AfAm (>60 ml/min/1.73 sqM) Est GFR (CKD-EPI)NonAf (>60 ml/min/1.73 sqM) Glucose (74-99) mg/dL Calcium (8.4-10.2) mg/dL Total Bilirubin (0.2-1.3) mg/dL AST (14-36) U/L ALT (9-52) U/L Alkaline Phosphatase (38-126) U/L NT-Pro-B Natriuret Pep 4730 pg/mL Total Protein (6.3-8.2) g/dL Albumin (3.5-5.0) g/dL Urine Color Yellow Urine Appearance Clear (Clear) Urine pH 7.5 (5.0-8.0) Ur Specific [place] 1.013 (1.001-1.035) Urine Protein Negative (Negative) Urine Glucose (UA) Negative (Negative) Urine Ketones Negative (Negative) Urine Blood Small H (Negative) Urine Nitrite Negative (Negative) Urine Bilirubin Negative (Negative) Urine Urobilinogen <2.0 (<2.0) mg/dL Ur Leukocyte Esterase Negative (Negative) Urine RBC 42 H (0-5) /hpf Urine WBC 1 (0-5) /hpf Ur Squamous Epith Cells 2 (0-4) /hpf Urine Mucus Rare H (None) /hpf Influenza Type A RNA Not Detected (Not Detectd) Influenza Type B (PCR) Not Detected (Not Detectd) Disposition Clinical Impression: Acute on chronic systolic (congestive) heart failure, COPD (chronic obstructive pulmonary disease), Pneumonia Disposition: ADMITTED IP TO THIS HOSP Condition: Stable Is patient prescribed a controlled substance at d/c from ED?: No Referrals: Olya Olson MD [Primary Care Provider] - 1-2 days Decision to Admit Reason: Admit from EC Decision Date: 07/28/19 Decision Time: 16:55
[2019-07-28] MEDS ORDERED: cefTRIAXone IN SWFI 1,000 MG/10 ML SYRINGE IVP STA (15:35)
[2019-07-28] MEDS ORDERED: IPRATROPIUM-ALBUTEROL 3 ML NEB INHALATION STA (15:38)
[2019-07-28 16:02] LABS: Anisocytosis Slight; Basophils % (A) 0 %; Eosinophils # (A) 0.2 k/uL (0-0.7); Eosinophils % (A) 2 %; HCT 42.6 % (34.0-46.0); HGB 13.6 gm/dL (11.4-16.0); Hypochromasia Slight; Lymphocytes # (A) 0.9 k/uL (1.0-4.8); Lymphocytes % (A) 8 %; MCH 26.6 pg (25.0-35.0); MCHC 31.8 g/dL (31.0-37.0); MCV 83.6 fL (80.0-100.0); Mean Platelet Volume 6.2; Monocytes # (A) 0.5 k/uL (0-1.0); Monocytes % (A) 4 %; Neutrophils # (A) 9.6 k/uL (1.3-7.7); Neutrophils % (A) 84 %; Platelet Count 233 k/uL (150-450); RDW 18.1 % (11.5-15.5); WBC 11.4 k/uL (3.8-10.6)
[2019-07-28 16:09] LABS: ALT 36 U/L (9-52); AST 34 U/L (14-36); African American GFR (CKD) >90 (>60 ml/min/1.73 sqM); Albumin 4.3 g/dL (3.5-5.0); Alkaline Phosphatase 143 U/L (38-126); Anion Gap 10 mmol/L; Blood Urea Nitrogen 13 mg/dL (7-17); Calcium 9.4 mg/dL (8.4-10.2); Carbon Dioxide 25 mmol/L (22-30); Chloride 102 mmol/L (98-107); Glucose 111 mg/dL (74-99); Non-African American GFR(CKD) >90 (>60 ml/min/1.73 sqM); Sodium 137 mmol/L (137-145); Total Bilirubin 1.2 mg/dL (0.2-1.3); Total Protein 8.1 g/dL (6.3-8.2)
[2019-07-28 16:14] LABS: INR 2.5 (<1.2); Partial Thromboplastin Time 27.9 sec (22.0-30.0); Prothrombin Time 24.1 sec (9.0-12.0)
[2019-07-28 16:25] LABS: Appearance,Urine Clear (Clear); Bilirubin,Urine Negative (Negative); Blood,Urine Small (Negative); Color,Urine Yellow; Glucose,Urine (UA) Negative (Negative); Ketones,Urine Negative (Negative); Leukocyte Esterase,Urine Negative (Negative); Mucus,Urine Rare /hpf; Nitrite,Urine Negative (Negative); PH, Urine 7.5 (5.0-8.0); Protein,Urine Negative (Negative); RBC,Urine 42 /hpf (0-5); Specific Gravity,Urine 1.013 (1.001-1.035); Squamous Epithelial Cell,Urine 2 /hpf (0-4); Urobilinogen,Urine <2.0 mg/dL (<2.0)
--- NOTE | 2019-07-28 16:41 | XR ---
EXAMINATION TYPE: XR chest 2V DATE OF EXAM: 07/28/2019 COMPARISON: 01/29/2018 HISTORY: Fever TECHNIQUE: Frontal and lateral views of the chest are obtained. FINDINGS: Heart is enlarged. There is mild pulmonary vascular congestion. There is slight blunting o f the costophrenic angles. There is some pulmonary interstitial edema. There is cardiac surgery. Ther e is right shoulder prosthesis. IMPRESSION: Congestive heart failure. There is improvement in left pleural effusion compared to old exam. Pulmonary congestion slightly worse than old exam.
[2019-07-28] MEDS ORDERED: FUROSEMIDE 10 MG/ML 4 ML VIAL IV STA (16:45)
[2019-07-28] MEDS ORDERED: AZITHROMYCIN 500 MG in SODIUM CHLORIDE 0.9% 250 ML IVPB STA (16:50)
[2019-07-28] MEDS ORDERED: IPRATROPIUM-ALBUTEROL 3 ML NEB INHALATION PRN (16:56)
[2019-07-28] MEDS: methylPREDNISolone SOD SUCCI 125 MG/2 ML VIAL IV SCH ×2 (17:37→23:22)
[2019-07-28] MEDS ORDERED: ACETAMINOPHEN TAB 325 MG TAB PO PRN (17:59)
[2019-07-28] MEDS: IPRATROPIUM-ALBUTEROL 3 ML NEB INHALATION SCH (19:15)
[2019-07-28] MEDS ORDERED: ALBUTEROL NEBULIZED 2.5 MG/3 ML INHALATION PRN (20:36)
[2019-07-28] MEDS ORDERED: ALPRAZolam 0.25 MG TAB PO PRN (20:36)
[2019-07-28] MEDS ORDERED: HYDROcodone/APAP 10-325MG 1 EACH TAB PO PRN (20:36)
[2019-07-28] MEDS: FUROSEMIDE 10 MG/ML 4 ML VIAL IV SCH (22:20)
[2019-07-28] MEDS: METOPROLOL TARTRATE 25 MG TAB PO SCH (22:20)
[2019-07-28] MEDS: PROPAFENONE 150 MG TAB PO SCH (22:32)
[2019-07-28] MEDS ORDERED: WARFARIN 2.5 MG TAB PO SCH (22:45)
[2019-07-29] MEDS: LEVOTHYROXINE 100 MCG TAB PO SCH (05:55)
[2019-07-29] MEDS: methylPREDNISolone SOD SUCCI 125 MG/2 ML VIAL IV SCH ×2 (05:55→12:22)
[2019-07-29] MEDS: SYMBICORT 160-4.5 MCG INHALER INHALATION SCH ×2 (07:21→19:54)
[2019-07-29] MEDS: IPRATROPIUM-ALBUTEROL 3 ML NEB INHALATION SCH ×4 (07:21→19:54)
[2019-07-29 07:33] LABS: Anisocytosis Slight; Basophils % (A) 0 %; Eosinophils % (A) 0 %; HCT 40.3 % (34.0-46.0); HGB 12.8 gm/dL (11.4-16.0); Lymphocytes # (A) 0.8 k/uL (1.0-4.8); Lymphocytes % (A) 7 %; MCH 26.3 pg (25.0-35.0); MCHC 31.8 g/dL (31.0-37.0); MCV 82.5 fL (80.0-100.0); Mean Platelet Volume 6.9; Microcytosis Slight; Monocytes # (A) 0.2 k/uL (0-1.0); Monocytes % (A) 2 %; Neutrophils # (A) 11.5 k/uL (1.3-7.7); Neutrophils % (A) 91 %; Platelet Count 226 k/uL (150-450); RBC 4.89 m/uL (3.80-5.40); RDW 18.8 % (11.5-15.5); WBC 12.6 k/uL (3.8-10.6)
[2019-07-29 07:35] LABS: INR 2.9 (<1.2); Prothrombin Time 28.4 sec (9.0-12.0)
[2019-07-29 07:57] LABS: ALT 33 U/L (9-52); AST 28 U/L (14-36); African American GFR (CKD) >90 (>60 ml/min/1.73 sqM); Albumin 3.7 g/dL (3.5-5.0); Alkaline Phosphatase 116 U/L (38-126); Anion Gap 11 mmol/L; Blood Urea Nitrogen 18 mg/dL (7-17); Calcium 9.1 mg/dL (8.4-10.2); Carbon Dioxide 28 mmol/L (22-30); Chloride 103 mmol/L (98-107); Glucose 185 mg/dL (74-99); Non-African American GFR(CKD) >90 (>60 ml/min/1.73 sqM); Sodium 142 mmol/L (137-145)
[2019-07-29] MEDS: PROPAFENONE 150 MG TAB PO SCH ×3 (08:54→23:58)
[2019-07-29] MEDS: FERROUS SULFATE 325 MG TAB PO SCH (08:54)
[2019-07-29] MEDS: FUROSEMIDE 10 MG/ML 4 ML VIAL IV SCH ×2 (08:54→22:03)
[2019-07-29] MEDS: METOPROLOL TARTRATE 25 MG TAB PO SCH ×3 (09:12→23:44)
[2019-07-29] MEDS: AZITHROMYCIN 500 MG in SODIUM CHLORIDE 0.9% 250 ML IVPB SCH (10:20)
[2019-07-29 10:25] VITALS: BMI 22.7
--- NOTE | 2019-07-29 12:18 | P.CNPUL ---
History of Present Illness Consult date: 07/29/19 Reason for consult: dyspnea History of present illness: This is a pleasant 74-year-old female with history of aortic valve replacement with bioprosthetic aortic valve as well as mitral valve repair in October 2017 , paroxysmal atrial fibrillation, atrial flutter, typical, iron deficiency anemia, rheumatoid arthritis, nonischemic cardiomyopathy and Echocardiogram with Doppler study performed in October 2017 revealed an ejection fraction of 40-45% normally functioning bioprosthetic valve trace of MR. Walker nt did have a cardiac catheterization prior to her valve surgery which revealed normal coronary arteries. The patient also has previous history of SVT, hypothyroidism, diverticular disease, kidney stones. She presented to the hospital yesterday because of fever and on examination she appears to be quite short of breath. He had increase in lower extremity edema also. She denied having any cough. She had no chest pain. She had mild sore throat and her blood work showed a white cell count of 12.6. With a proBNP level of 4730. Her renal function was stable and normal with a creatinine of 0.5. Electrodes were all within normal limits. Was a screen was negative. UA showed some RBCs with out any significant white cells. The chest x-ray showed cardiomegaly. Changes consistent with post thoracotomy. There was pulmonary vessel congestion and a left-sided pleural effusion. The findings were slightly worse when compared to the older chest x-rays from 2018. Was admitted to the hospital. She was started on Rocephin and Zithromax. She was started on IV Lasix 40 mg every 12 hours. She is also on IV Solu-Medrol. Coumadin was resumed as the patient is on long-term articulation with warfarin. INR is at 2.9. Her cardiac rhythm is sinus for now with a first-degree AV block. She is on a combination of metoprolol and Rythmol. Review of Systems Constitutional: Reports fatigue, Reports weakness Eyes: denies as per HPI, denies blurred vision, denies bulging eye, denies decreased vision, denies diplopia, denies discharge, denies dry eye, denies irritation, denies itching, denies pain, denies photophobia, denies loss of peripheral vision, denies loss of vision, denies tunnel vision/blind spots Ears: deny: decreased hearing, ear discharge, earache, tinnitus Ears, nose, mouth and throat: Denies headache, Denies sore throat Breasts: absent: as per HPI, change in shape, gynecomastia, masses, nipple discharge, pain, skin changes, swelling Cardiovascular: Reports decreased exercise tolerance, Reports dyspnea on exertion, Reports leg edema, Reports shortness of breath Respiratory: Reports cough, Reports dyspnea Gastrointestinal: Reports as per HPI Genitourinary: Reports as per HPI Menstruation: Reports as per HPI Musculoskeletal: Reports as per HPI Musculoskeletal: bilateral: ankle swelling, absent: ankle pain, ankle stiffness Integumentary: Reports as per HPI Neurological: Reports as per HPI Psychiatric: Reports as per HPI Endocrine: Reports as per HPI Hematologic/Lymphatic: Reports as per HPI Allergic/Immunologic: Reports as per HPI Past Medical History Past Medical History: Atrial Fibrillation, Heart Failure, COPD, GERD/Reflux, Osteoarthritis (OA), Renal Disease, Rheumatoid Arthritis (RA), Supraventricular Tachycardia (SVT), Thyroid Disorder Additional Past Medical History / Comment(s): Valvular heart disease with previous aortic valve replacement and a mitral valve repair, congestion heart failure Paroxysmal Afib, history of SVT, history of nonsustained VT, SOB with exertion, home O2 at 2L/NC usually prn but lately ATC, arthritis, RA several joints, current L elbow pain/swelling-had "injection", nephrolithiasis, hypothyroid, diverticular dx, UTI, iron deficiency anemia. Obesity History of Any Multi-Drug Resistant Organisms: None Reported Past Surgical History: Coronary Bypass/CABG, Heart Catheterization, Hysterectomy, Joint Replacement, Orthopedic Surgery Additional Past Surgical History / Comment(s): Geoff total knees arthroplasty,lt hip arthroplasty, goiter removed 1963, partial thyroidectomy, cataracts removed with lens implants, REVERSE TOTAL RIGHT SHOULDER; Rotator cuff R shoulder, cervical fusion/injections, colonoscopy, MATTHEW, valve surgery at [facility] 10/13/17 Prosthetic Aortic valve and mitral valve repair. Past Anesthesia/Blood Transfusion Reactions: No Reported Reaction Past Psychological History: No Psychological Hx Reported Additional Psychological History / Comment(s): Pt resides with her spouse in an apartment with no stairs. She used to drive but not since valve surgery. Her spouse is helpful and able to drive her to appts. She has home oxygen. She uses a walker to ambulate and has a cane. She also has a scale and B/P monitor. She has used VMA in the recent past. Smoking Status: Former smoker Past Alcohol Use History: None Reported Additional Past Alcohol Use History / Comment(s): She used to drink 2 glasses of wine per week but hasn't for months, quit smoking @age of 43, smoked 1ppd for 30 yrs. Past Drug Use History: None Reported - Past Family History Father Family Medical History: Myocardial Infarction ([place]) Additional Family Medical History / Comment(s): in his 80's of a mi Mother Additional Family Medical History / Comment(s): age 86 [place] [facility] pt not sure what she from. hx smoking. Medications and Allergies Home Medications Medication Instructions Recorded Confirmed Type Fluticasone/Salmeterol [Advair Hfa 1 puff INHALATION RT-BID 09/15/17 07/28/19 History 230-21 Mcg Inhaler] ALPRAZolam [Xanax] 0.25 mg PO BID PRN 11/27/17 07/28/19 History HYDROcodone/APAP 10-325MG [[place] 1 tab PO Q6H PRN 11/27/17 07/28/19 History 10-325] Warfarin Sodium [Coumadin] 2.5 mg PO DAILY #30 tablet 12/01/17 07/28/19 Rx Metoprolol Tartrate [Lopressor] 25 mg PO BID 01/27/18 07/28/19 History Ferrous Sulfate [Feosol] 325 mg PO DAILY #30 tab 01/30/18 07/28/19 Rx Propafenone [Rythmol] 150 mg PO TID #90 tablet 01/30/18 07/28/19 Rx Albuterol Sulfate [Proair Hfa] 2 puff INHALATION RT-Q4H PRN 07/28/19 07/28/19 History Furosemide [Lasix] 20 mg PO DAILY@1600 07/28/19 07/28/19 History Furosemide [Lasix] 40 mg PO DAILY@0900 07/28/19 07/28/19 History Levothyroxine Sodium [Levoxyl] 200 mcg PO DAILY 07/28/19 07/28/19 History Allergies Allergy/AdvReac Type Severity Reaction Status Date / Time lisinopril Allergy Unknown Verified 07/28/19 20:09 Physical Exam Vitals: Vital Signs Temp Pulse Pulse Resp BP BP BP 07/29/19 11:07 96 07/29/19 10:57 94 07/29/19 08:13 97.9 F 100 16 104/58 07/29/19 07:31 92 07/29/19 07:21 92 07/29/19 05:59 97.9 F 78 16 107/66 07/29/19 05:53 97.9 F 78 15 97/55 07/28/19 22:15 79 109/50 07/28/19 20:12 98.1 F 80 20 95/54 88/51 07/28/19 18:57 100.1 F H 84 18 101/57 07/28/19 17:50 101.4 F H 79 18 119/62 07/28/19 16:35 105 H 16 07/28/19 16:28 103 H 16 07/28/19 16:15 100.9 F H 102 H 18 127/76 07/28/19 14:58 99.9 F H 101 H 18 120/66 Pulse Ox 07/29/19 11:07 07/29/19 10:57 07/29/19 08:13 96 07/29/19 07:31 07/29/19 07:21 07/29/19 05:59 98 07/29/19 05:53 99 07/28/19 22:15 99 07/28/19 20:12 97 07/28/19 18:57 98 07/28/19 17:50 97 07/28/19 16:35 07/28/19 16:28 07/28/19 16:15 91 L 07/28/19 14:58 92 L Intake and Output 07/28/19 07/29/19 07/29/19 22:59 06:59 14:59 Intake Total 300 300 Balance 300 300 Intake: Oral 300 300 Other: Voiding Method Bedside Commode Bedside Commode Diaper Diaper Incontinent Incontinent # Voids 4 4 # Bowel Movements 2 2 Weight 52.844 kg 52.844 kg In appearance, comfortable thin and frail elderly female patient nonacute distress Head exam was generally normal. There was no scleral icterus or corneal arcus. Mucous membranes were moist. Neck was supple and without jugular venous distension, thyromegaly, or carotid bruits. Carotids were easily palpable bilaterally. There was no adenopathy. Lungs sounds are diminished in the bilateral crackles in lung bases bilaterally. Breath sounds are diminished in the left lung base along with some dullness to percussion. Cardiac exam revealed the PMI to be normally situated and sized. The rhythm was regular and no extrasystoles were noted during several minutes of auscultation. The first and second heart sounds were normal and physiologic splitting of the second heart sound was noted. There is a systolic ejection murmur grade 3/60 throughout the precordium is mainly in the left lateral sternal border and apex. The sternal wound is dry clean and intact Abdominal exam revealed normal bowel sounds. The abdomen was soft, non-tender, and without masses, organomegaly, or appreciable enlargement of the abdominal aorta. Extremities show deformity related to rheumatoid arthritis. There is some edema in lower extremity is bilaterally, trace and there is no cyanosis or clubbing. Neurologically awake and alert 3 and there is no focal neurological deficit. Examination of the skin revealed no evidence of significant rashes, suspicious appearing nevi or other concerning lesions. Results - Laboratory Findings CBC and BMP: 07/29/19 06:43 07/29/19 06:43 PT/INR, D-dimer PT 28.4 sec (9.0-12.0) H 07/29/19 06:43 INR 2.9 (<1.2) H 07/29/19 06:43 Abnormal lab findings: Abnormal Labs 07/28/19 07/28/19 07/28/19 15:39 15:39 15:39 WBC 11.4 H RDW 18.1 H Neutrophils # 9.6 H Lymphocytes # 0.9 L PT 24.1 H INR 2.5 H Potassium BUN Glucose 111 H Alkaline Phosphatase 143 H Urine Blood Urine RBC Urine Mucus 07/28/19 07/29/19 07/29/19 16:08 06:43 06:43 WBC 12.6 H RDW 18.8 H Neutrophils # 11.5 H Lymphocytes # 0.8 L PT 28.4 H INR 2.9 H Potassium BUN Glucose Alkaline Phosphatase Urine Blood Small H Urine RBC 42 H Urine Mucus Rare H 07/29/19 06:43 WBC RDW Neutrophils # Lymphocytes # PT INR Potassium 3.0 L BUN 18 H Glucose 185 H Alkaline Phosphatase Urine Blood Urine RBC Urine Mucus - Diagnostic Findings Chest x-ray: image reviewed Assessment and Plan Plan: 1 chronic dyspnea with some acute decompensation of her breathing and worsening shortness of breath. Consider acute CHF versus an acute bronchitis putting this patient into worsening heart failure. Nevertheless, the chest x-ray shows chronic findings including cardiomegaly and some possible effusion on the left. We'll obtain a computed tomography scan of the chest without contrast to further characterize the parenchymal lung abnormalities. 2 history of valvular heart disease with previous aortic valve replacement and mitral valve repair, the patient has a bioprosthetic aortic valve 3 CHF with mild systolic heart failure and ejection fraction of 45% 4 paroxysmal atrial fibrillation/flutter current rhythm is sinus maintained on long-term articulation with warfarin with a therapeutic PT/INR 5 COPD maintained on Advair and Proventil rescue inhaler less than basis 6 hypothyroidism 7 hypothyroidism 8 diverticular disease EZE Agree on the current treatment. Obtain a noncontrast CAT scan of the chest to characterized the lung abnormalities seen on the chest x-ray. Continue diuresis. Continue diuretics. Continue bronchodilators. Continue antibiotics per monitor fever pattern. We'll continue to follow. As therapeutic. May consider repeating the the heart if not done within the past 6 months.
--- NOTE | 2019-07-29 13:17 | P.HPIM ---
History of Present Illness H&P Date: 07/29/19 Chief Complaint: Fever and weakness Mirella San, he is a 74-year-old female well known to my practice who presented to the office on 07/28/2019 complaining of fever and severe weakness, patient was complaining of mild sore throat and cough, urine analysis in the office was negative for any sign of infection, temperature in the office was 102.5 no clear source of infection, pneumonia was suspected and patient was sent to [facility] emergency room. She was evaluated in the emergency room, chest x-ray revealed evidence of pulmonary congestion and left sided pleural effusion without clear evidence of pneumonia, blood culture and urine culture were obtained, she was started on IV antibiotic Rocephin and Zithromax, and was admitted to medical floor pulmonary consultation was requested. White blood count was elevated at 11.4 and lactic acid was elevated at 2.6 influenza testing was negative. INR was in therapeutic range. Patient has a known history of valvular heart disease with history of aortic valve replacement with bioprosthetic aortic valve in October 2017 she also underwent mitral valve repair at that time. She has known history of atrial fibrillation and history of rheumatoid arthritis. Patient has also history of nonischemic cardiomyopathy. Past Medical History Past Medical History: Atrial Fibrillation, Heart Failure, COPD, GERD/Reflux, Osteoarthritis (OA), Renal Disease, Rheumatoid Arthritis (RA), Supraventricular Tachycardia (SVT), Thyroid Disorder Additional Past Medical History / Comment(s): Valvular heart disease with previous aortic valve replacement and a mitral valve repair, congestion heart failure Paroxysmal Afib, history of SVT, history of nonsustained VT, SOB with exertion, home O2 at 2L/NC usually prn but lately ATC, arthritis, RA several joints, current L elbow pain/swelling-had "injection", nephrolithiasis, hypothyroid, diverticular dx, UTI, iron deficiency anemia. Obesity History of Any Multi-Drug Resistant Organisms: None Reported Past Surgical History: Coronary Bypass/CABG, Heart Catheterization, Hysterectomy, Joint Replacement, Orthopedic Surgery Additional Past Surgical History / Comment(s): Geoff total knees arthroplasty,lt hip arthroplasty, goiter removed 1962, partial thyroidectomy, cataracts removed with lens implants, REVERSE TOTAL RIGHT SHOULDER; Rotator cuff R shoulder, cervical fusion/injections, colonoscopy, MATTHEW, valve surgery at [facility] 10/13/17 Prosthetic Aortic valve and mitral valve repair. Past Anesthesia/Blood Transfusion Reactions: No Reported Reaction Past Psychological History: No Psychological Hx Reported Additional Psychological History / Comment(s): Pt resides with her spouse in an apartment with no stairs. She used to drive but not since valve surgery. Her spouse is helpful and able to drive her to appts. She has home oxygen. She uses a walker to ambulate and has a cane. She also has a scale and B/P monitor. She has used VMA in the recent past. Smoking Status: Former smoker Past Alcohol Use History: None Reported Additional Past Alcohol Use History / Comment(s): She used to drink 2 glasses of wine per week but hasn't for months, quit smoking @age of 43, smoked 1ppd for 30 yrs. Past Drug Use History: None Reported - Past Family History Father Family Medical History: Myocardial Infarction ([place]) Additional Family Medical History / Comment(s): in his 80's of a mi Mother Additional Family Medical History / Comment(s): age 88 in [facility] pt not sure what she from. hx smoking. Medications and Allergies Home Medications Medication Instructions Recorded Confirmed Type Fluticasone/Salmeterol [Advair Hfa 1 puff INHALATION RT-BID 09/15/17 07/28/19 History 230-21 Mcg Inhaler] ALPRAZolam [Xanax] 0.25 mg PO BID PRN 11/27/17 07/28/19 History HYDROcodone/APAP 10-325MG [[place] 1 tab PO Q6H PRN 11/27/17 07/28/19 History 10-325] Warfarin Sodium [Coumadin] 2.5 mg PO DAILY #30 tablet 12/01/17 07/28/19 Rx Metoprolol Tartrate [Lopressor] 25 mg PO BID 01/27/18 07/28/19 History Ferrous Sulfate [Feosol] 325 mg PO DAILY #30 tab 01/30/18 07/28/19 Rx Propafenone [Rythmol] 150 mg PO TID #90 tablet 01/30/18 07/28/19 Rx Albuterol Sulfate [Proair Hfa] 2 puff INHALATION RT-Q4H PRN 07/28/19 07/28/19 History Furosemide [Lasix] 20 mg PO DAILY@1600 07/28/19 07/28/19 History Furosemide [Lasix] 40 mg PO DAILY@0900 07/28/19 07/28/19 History Levothyroxine Sodium [Levoxyl] 200 mcg PO DAILY 07/28/19 07/28/19 History Allergies Allergy/AdvReac Type Severity Reaction Status Date / Time lisinopril Allergy Unknown Verified 07/28/19 20:09 Physical Exam Vitals: Vital Signs Temp Pulse Pulse Resp BP BP BP 07/29/19 11:46 98.6 F 95 19 110/68 07/29/19 11:07 96 07/29/19 10:57 94 07/29/19 08:13 97.9 F 100 16 104/58 07/29/19 07:31 92 07/29/19 07:21 92 07/29/19 05:59 97.9 F 78 16 107/66 07/29/19 05:53 97.9 F 78 15 97/55 07/28/19 22:15 79 109/50 07/28/19 20:12 98.1 F 80 20 95/54 88/51 07/28/19 18:57 100.1 F H 84 18 101/57 07/28/19 17:50 101.4 F H 79 18 119/62 07/28/19 16:35 105 H 16 07/28/19 16:28 103 H 16 07/28/19 16:15 100.9 F H 102 H 18 127/76 07/28/19 14:58 99.9 F H 101 H 18 120/66 Pulse Ox 07/29/19 11:46 99 07/29/19 11:07 07/29/19 10:57 07/29/19 08:13 96 07/29/19 07:31 07/29/19 07:21 07/29/19 05:59 98 07/29/19 05:53 99 07/28/19 22:15 99 07/28/19 20:12 97 07/28/19 18:57 98 07/28/19 17:50 97 07/28/19 16:35 07/28/19 16:28 07/28/19 16:15 91 L 07/28/19 14:58 92 L Intake and Output 07/28/19 07/29/19 07/29/19 22:59 06:59 14:59 Intake Total 300 300 Balance 300 300 Intake: Oral 300 300 Other: Voiding Method Bedside Commode Bedside Commode Diaper Diaper Incontinent Incontinent # Voids 4 4 # Bowel Movements 2 2 Weight 52.844 kg 52.844 kg In general patient is alert and oriented 3 in no apparent distress HEENT head normocephalic and atraumatic Neck is supple no JVD no goiter no lymphadenopathy no carotid bruit Chest exam reveals a few scattered crackles bilaterally no wheezing Cardiac exam reveals irregular heart sounds S1 and S2 no gallops no murmurs Abdomen is soft nontender no organomegaly with normal bowel sounds Extremity exam reveals no edema no cyanosis or clubbing Neurological examination reveals no gross focal deficit Results CBC & Chem 7: 07/29/19 06:43 07/29/19 06:43 Labs: Abnormal Lab Results - Last 24 Hours (Table) 07/28/19 07/28/19 07/28/19 Range/Units 15:39 15:39 15:39 WBC 11.4 H (3.8-10.6) k/uL RDW 18.1 H (11.5-15.5) % Neutrophils # 9.6 H (1.3-7.7) k/uL Lymphocytes # 0.9 L (1.0-4.8) k/uL PT 24.1 H (9.0-12.0) sec INR 2.5 H (<1.2) Potassium (3.5-5.1) mmol/L BUN (7-17) mg/dL Glucose 111 H (74-99) mg/dL Plasma Lactic Acid Wilfred (0.7-2.0) mmol/L Alkaline Phosphatase 143 H (38-126) U/L Urine Blood (Negative) Urine RBC (0-5) /hpf Urine Mucus (None) /hpf 07/28/19 07/29/19 07/29/19 Range/Units 16:08 06:43 06:43 WBC 12.6 H (3.8-10.6) k/uL RDW 18.8 H (11.5-15.5) % Neutrophils # 11.5 H (1.3-7.7) k/uL Lymphocytes # 0.8 L (1.0-4.8) k/uL PT 28.4 H (9.0-12.0) sec INR 2.9 H (<1.2) Potassium (3.5-5.1) mmol/L BUN (7-17) mg/dL Glucose (74-99) mg/dL Plasma Lactic Acid Wilfred (0.7-2.0) mmol/L Alkaline Phosphatase (38-126) U/L Urine Blood Small H (Negative) Urine RBC 42 H (0-5) /hpf Urine Mucus Rare H (None) /hpf 07/29/19 07/29/19 Range/Units 06:43 12:14 WBC (3.8-10.6) k/uL RDW (11.5-15.5) % Neutrophils # (1.3-7.7) k/uL Lymphocytes # (1.0-4.8) k/uL PT (9.0-12.0) sec INR (<1.2) Potassium 3.0 L (3.5-5.1) mmol/L BUN 18 H (7-17) mg/dL Glucose 185 H (74-99) mg/dL Plasma Lactic Acid Wilfred 2.6 H* (0.7-2.0) mmol/L Alkaline Phosphatase (38-126) U/L Urine Blood (Negative) Urine RBC (0-5) /hpf Urine Mucus (None) /hpf Microbiology - Last 24 Hours (Table) 07/28/19 16:08 Urine Culture - Preliminary Urine,Clean Catch Thrombosis Risk Factor Assmnt - Choose All That Apply Each Factor Represents 1 point: Abnormal pulmonary function (COPD), Serious lung disease incl. pneumonia (< 1month), Swollen legs (current) Each Risk Factor Represents 3 Points: Age 75 years or older Other congenital or acquired thrombophilia - If yes, enter type in comment: No Thrombosis Risk Factor Assessment Total Risk Factor Score: 6 Thrombosis Risk Factor Assessment Level: High Risk Assessment and Plan Plan: #1 febrile illness with possible pneumonia patient was started on IV Rocephin and IV Zithromax, pulmonary consultation was requested, no clear infiltrate on chest x-ray. #2 sepsis as evidenced by leukocytosis, tachycardia, elevated temperature, and elevated lactic acid at 2.6 #3 acute on chronic systolic congestive heart failure, with elevated BNP at 4730, and evidence of pulmonary congestion on chest x-ray, and left sided pleural effusion #4 underlying history of atrial fibrillation maintained on Coumadin INR therapeutic #5 underlying history of valvular heart disease with history of aortic valve r eplacement with bioprosthetic valve and history of mitral valve repair in October 2017 #6 underlying history of rheumatoid arthritis #7 underlying history of nonischemic cardiomyopathy ejection fraction 40-45%, cardiac catheterization revealed normal coronary artery disease in October 2017 At this time will continue with current care with IV antibiotics, IV diuretics Consultation for pulmonary and infectious disease was initiated Awaiting culture results Computed tomography scan of the chest was ordered by pulmonary Will follow closely
--- NOTE | 2019-07-29 14:44 | CT ---
EXAMINATION TYPE: CT chest wo con DATE OF EXAM: 07/29/2019 COMPARISON: Prior CTA chest September 29, 2017 HISTORY: CHF. Difficulty breathing. CT DLP: 125.2 mGycm. Automated Exposure Control for Dose Reduction was Utilized. TECHNIQUE: CT scan of the thorax is performed without IV contrast. FINDINGS: LUNGS: There is persistent right lower lung linear scarring and/or atelectasis. There is new curvilin ear small left pleural fluid collection or effusion which does not completely layer dependently. Ther e is associated left lower lung atelectasis and/or infiltrate. MEDIASTINUM: Lack of IV contrast is noted to limit evaluation for mediastinal and especially hilar ad enopathy. There are no definitive greater than 1 cm hilar or mediastinal lymph nodes. No pericardia l effusion is seen. Overlying sternal wires and mediastinal clips are seen. Enlarged pulmonary arteri es are redemonstrated. There is surgical change at level of mitral and aortic valves. There is superi or closure device just below origin of the left pulmonary artery on current study. OTHER: Osseous structures are demineralized. Exaggerated curvature is seen with fairly moderate multi level spurring, there is multilevel areas of disc space narrowing most prominent lower thoracic level s. Rim calcified hepatic dome lesion axial image 40 unchanged from prior. Presumed Benign. IMPRESSION: Cardiomegaly and underlying pulmonary hypertension with stable right basilar scarring and /or atelectasis, there is new small left nonsimple pleural fluid collection or fusion with associated left lower lung infiltrate and/or atelectasis.
[2019-07-29] MEDS: methylPREDNISolone SOD SUCCI 40 MG/ML 1 ML VIAL IV SCH ×2 (17:22→23:58)
[2019-07-29] MEDS ORDERED: Potassium Replacement Protocol 1 EACH MISC MISCELLANE PRN ×2 (17:56→21:31)
[2019-07-29] MEDS ORDERED: WARFARIN 1 MG TAB PO ONE (18:00)
[2019-07-29] MEDS ORDERED: WARFARIN 2.5 MG TAB PO SCH (18:00)
[2019-07-29] MEDS: POTASSIUM CHLORIDE ER 20 MEQ TAB.ER PO SCH ×4 (18:01→23:44)
[2019-07-29] MEDS ORDERED: VANCOMYCIN IV PER PHARMACY 1 EACH MISC MISCELLANE PRN (18:09)
[2019-07-29] MEDS ORDERED: SODIUM CHLORIDE 0.9% 1,000 ML IV SCH (18:15)
[2019-07-29] MEDS: VANCOMYCIN 1,000 MG in SODIUM CHLORIDE 0.9% 250 ML IVPB SCH (19:30)
[2019-07-30] MEDS: LEVOTHYROXINE 100 MCG TAB PO SCH (05:46)
[2019-07-30 06:14] LABS: Anisocytosis Slight; Basophils % (A) 0 %; Eosinophils % (A) 0 %; HCT 36.3 % (34.0-46.0); HGB 11.7 gm/dL (11.4-16.0); Lymphocytes % (A) 7 %; MCH 26.7 pg (25.0-35.0); MCHC 32.1 g/dL (31.0-37.0); Microcytosis Slight; Monocytes # (A) 0.5 k/uL (0-1.0); Monocytes % (A) 3 %; Neutrophils # (A) 12.5 k/uL (1.3-7.7); Neutrophils % (A) 89 %; Platelet Count 230 k/uL (150-450); RBC 4.37 m/uL (3.80-5.40); RDW 18.5 % (11.5-15.5); WBC 14.1 k/uL (3.8-10.6)
[2019-07-30 06:22] LABS: ALT 35 U/L (9-52); AST 23 U/L (14-36); African American GFR (CKD) >90 (>60 ml/min/1.73 sqM); Albumin 3.3 g/dL (3.5-5.0); Alkaline Phosphatase 101 U/L (38-126); Anion Gap 8 mmol/L; Blood Urea Nitrogen 28 mg/dL (7-17); Calcium 9.1 mg/dL (8.4-10.2); Carbon Dioxide 28 mmol/L (22-30); Chloride 104 mmol/L (98-107); Glucose 156 mg/dL (74-99); Non-African American GFR(CKD) 86 (>60 ml/min/1.73 sqM); Potassium 3.7 mmol/L (3.5-5.1); Sodium 140 mmol/L (137-145); Total Bilirubin 0.6 mg/dL (0.2-1.3); Total Protein 6.4 g/dL (6.3-8.2)
[2019-07-30 06:26] LABS: Prothrombin Time 61.2 sec (9.0-12.0)
[2019-07-30 06:58] LABS: INR 6.3 (<1.2)
[2019-07-30] MEDS: IPRATROPIUM-ALBUTEROL 3 ML NEB INHALATION SCH ×4 (07:45→19:30)
[2019-07-30] MEDS: SYMBICORT 160-4.5 MCG INHALER INHALATION SCH ×3 (07:45→19:46)
[2019-07-30 07:52] LABS: INR 6.1 (<1.2)
[2019-07-30] MEDS ORDERED: PHYTONADIONE ORAL 5 MG/5 ML ORAL.SYRG PO STA (08:26)
[2019-07-30] MEDS: VANCOMYCIN 1,000 MG in SODIUM CHLORIDE 0.9% 250 ML IVPB SCH ×2 (08:54→18:52)
[2019-07-30] MEDS: METOPROLOL TARTRATE 25 MG TAB PO SCH ×2 (08:56→21:24)
[2019-07-30] MEDS: FUROSEMIDE 10 MG/ML 4 ML VIAL IV SCH ×2 (08:57→21:24)
[2019-07-30] MEDS: FERROUS SULFATE 325 MG TAB PO SCH (08:57)
[2019-07-30] MEDS: methylPREDNISolone SOD SUCCI 40 MG/ML 1 ML VIAL IV SCH ×2 (08:57→15:58)
[2019-07-30] MEDS: PROPAFENONE 150 MG TAB PO SCH ×3 (08:59→21:24)
--- NOTE | 2019-07-30 10:46 | P.PN ---
Subjective Progress Note Date: 07/30/19 Mirella San, he is a 74-year-old female well known to my practice who presented to the office on 07/28/2019 complaining of fever and severe weakness, patient was complaining of mild sore throat and cough, urine analysis in the office was negative for any sign of infection, temperature in the office was 102.5 no clear source of infection, pneumonia was suspected and patient was sent to [facility] emergency room. She was evaluated in the emergency room, chest x-ray revealed evidence of pulmonary congestion and left sided pleural effusion without clear evidence of pneumonia, blood culture and urine culture were obtained, she was started on IV antibiotic Rocephin and Zithromax, and was admitted to medical floor pulmonary consultation was requested. White blood count was elevated at 11.4 and lactic acid was elevated at 2.6 influenza testing was negative. INR was in therapeutic range. Patient has a known history of valvular heart disease with history of aortic valve replacement with bioprosthetic aortic valve in October 2017 she also underwent mitral valve repair at that time. She has known history of atrial fibrillation and history of rheumatoid arthritis. Patient has also history of nonischemic cardiomyopathy. On 07/30/2019 patient is alert and oriented 3. Patient's INR elevated this a.m. 6.1. Vitamin K has been ordered. Lactic acid improving. Patient remains on Rocephin and azithromycin. Pulmonary cardiology and infectious disease following. At this time patient denies chest pain. Patient still having some cough and shortness breath. Patient denies nausea vomiting or diarrhea. Patient denies any urinary burning or frequency. Objective - Vital Signs Vital signs: Vital Signs Temp 97.1 F L 07/30/19 05:00 Pulse 82 07/30/19 07:56 Resp 18 07/30/19 05:00 BP 102/57 07/30/19 05:00 Pulse Ox 95 07/30/19 05:00 Intake & Output 07/29/19 07/30/19 07/30/19 18:59 06:59 18:59 Intake Total 700 Balance 700 Weight 52.844 kg 48.9 kg Intake: Intake, IV Titration 700 Amount Sodium Chloride 0.9% 1, 450 000 ml @ 50 mls/hr IV . Q20H [facility] Rx#:[id number] Vancomycin 1,000 mg In 250 Sodium Chloride 0.9% 250 ml @ 125 mls/hr IVPB Q12H [facility] Rx#:[id number] Other: Voiding Method Bedside Commode Bedside Commode Diaper Diaper Incontinent Incontinent # Voids 4 1 # Bowel Movements 2 - Exam In general patient is alert and oriented 3 in no apparent distress HEENT head normocephalic and atraumatic Neck is supple no JVD no goiter no lymphadenopathy no carotid bruit Chest exam reveals a few scattered crackles bilaterally no wheezing Cardiac exam reveals irregular heart sounds S1 and S2 no gallops no murmurs Abdomen is soft nontender no organomegaly with normal bowel sounds Extremity exam reveals no edema no cyanosis or clubbing Neurological examination reveals no gross focal deficit - Labs CBC & Chem 7: 07/30/19 05:42 07/30/19 05:42 Labs: Abnormal Lab Results - Last 24 Hours (Table) 07/29/19 07/29/19 07/29/19 Range/Units 12:14 16:12 20:38 WBC (3.8-10.6) k/uL RDW (11.5-15.5) % Neutrophils # (1.3-7.7) k/uL PT (9.0-12.0) sec INR (<1.2) BUN (7-17) mg/dL Glucose (74-99) mg/dL Plasma Lactic Acid Wilfred 2.6 H* 4.3 H* 3.4 H* (0.7-2.0) mmol/L Albumin (3.5-5.0) g/dL 07/30/19 07/30/19 07/30/19 Range/Units 01:01 05:42 05:42 WBC 14.1 H (3.8-10.6) k/uL RDW 18.5 H (11.5-15.5) % Neutrophils # 12.5 H (1.3-7.7) k/uL PT 61.2 H (9.0-12.0) sec INR 6.3 H* (<1.2) BUN (7-17) mg/dL Glucose (74-99) mg/dL Plasma Lactic Acid Wilfred 2.7 H* (0.7-2.0) mmol/L Albumin (3.5-5.0) g/dL 07/30/19 07/30/19 Range/Units 05:42 07:20 WBC (3.8-10.6) k/uL RDW (11.5-15.5) % Neutrophils # (1.3-7.7) k/uL PT 59.0 H (9.0-12.0) sec INR 6.1 H* (<1.2) BUN 28 H (7-17) mg/dL Glucose 156 H (74-99) mg/dL Plasma Lactic Acid Wilfred (0.7-2.0) mmol/L Albumin 3.3 L (3.5-5.0) g/dL Microbiology - Last 24 Hours (Table) 07/28/19 16:08 Urine Culture - Preliminary Urine,Clean Catch Gram Neg Bacilli 07/28/19 15:39 Blood Culture - Preliminary Blood No Growth after 24 hours Assessment and Plan Assessment: #1 febrile illness with possible pneumonia patient was started on IV Rocephin and IV Zithromax, pulmonary consultation was requested, no clear infiltrate on chest x-ray. Chest CT completed showing cardiomegaly and underlying pulmonary hypertension with stable right basilar scarring and/or atelectasis there is a small left non-simple pleural fluidflexion effusion with associated left lower lobe infiltrate and or atelectasis #2 sepsis as evidenced by leukocytosis, tachycardia, elevated temperature, and elevated lactic acid at 2.6. Lactic acid improving to 1.9 #3 acute on chronic systolic congestive heart failure, with elevated BNP at 4730, and evidence of pulmonary congestion on chest x-ray, and left sided pleural effusion. Cardiology services have been consulted. Patient maintained on IV Lasix #4. COPD exacerbation. Pulmonary services are following. Patient started on Solu-Medrol. #5 underlying history of atrial fibrillation maintained on Coumadin INR therapeutic. Coumadin currently on hold due to elevated INR #6 underlying history of valvular heart disease with history of aortic valve replacement with bioprosthetic valve and history of mitral valve repair in October 2017 #7 underlying history of rheumatoid arthritis #8 underlying history of nonischemic cardiomyopathy ejection fraction 40-45%, cardiac catheterization revealed normal coronary artery disease in October 2017 #9 Supratherapeutic INR. INR 6.1. Vitamin K has been ordered Coumadin on hold DVT prophylaxis Coumadin. GI prophylaxis Pepcid Cardiology, pulmonary and infectious disease consulted Blood and urine cultures ordered Patient maintained on IV antibiotics, IV steroids and IV Lasix I performed an examination of the patient and discussed their management with the Nurse Practitioner. I have reviewed the Nurse Practitioner's notes and agree with the documented findings and plan of care
--- NOTE | 2019-07-30 11:29 | CDI ---
Documentation Clarification Form Date: 07/30/2019 10:45:00 AM From: Mercedes Soto RN, CCDS Admit Date: 07/28/2019 4:57:00 PM Patient Name: Mirella San Visit Number: [id number] Discharge Date: ATTENTION: The Clinical Documentation Specialists (CDI) and [facility] Coding Staff appreciate your assistance in clarifying documentation. Please respond to the clarification below the line at the bottom and electronically sign. The CDI & [facility] Coding staff will review the response and follow-up if needed. Please note: Queries are made part of the Legal Health Record. If you have any questions, please contact the author of this message via ITS. Dr. Liv Peralta The patient presented with the following respiratory symptoms: Dyspnea History/Risk Factors: COPD, Congestive heart failure, Paroxysmal Atrial Fibrillation Tobacco use: Former smoker Home oxygen: 2/L [place] Clinical Indicators: 74-year-old female who present for evaluation of fever. She appear dyspneic on exam. Respiratory exam: Present: respiratory distress, rhonchi, decreased breath sounds. Vital signs: 127/76 102 18 100.9 91% RA, 97% 3/l NC Chest x-ray: consistent with fluid overload, do suspect a concurrent pneumonia. Treatment: Breathing tx: Ventolin Nebulized/ Bronchodilators Azithromycin IV, Rocephin IV, Vancomycin IV Lasix IV Q12 Solu-medrol IV Monitor Pulse ox (titrate) In your professional opinion, can you please clarify if these findings signify one of the following conditions? Acute on Chronic Respiratory Failure Chronic Respiratory Failure Other Diagnosis, please specify Unable to determine Specificity: If known, further specify (if known): With hypercapnia? (pCO2 >50 and pH <7.35) With hypoxia? (pO2 <60 mm Hg or SpO2 <91% on room air) (Last Query Form Revision: May 2019) Acute on Chronic Respiratory Failure, With hypoxia? (pO2 <60 mm Hg or SpO2 <91% on room air) MTDD
[2019-07-30] MEDS: AZITHROMYCIN 500 MG in SODIUM CHLORIDE 0.9% 250 ML IVPB SCH (11:32)
--- NOTE | 2019-07-30 12:53 | P.PN ---
Subjective Progress Note Date: 07/30/19 This is a pleasant 74-year-old female with history of aortic valve rep lacement with bioprosthetic aortic valve as well as mitral valve repair in October 2017 , paroxysmal atrial fibrillation, atrial flutter, typical, iron deficiency anemia, rheumatoid arthritis, nonischemic cardiomyopathy and Echocardiogram with Doppler study performed in October 2017 revealed an ejection fraction of 40-45% normally functioning bioprosthetic valve trace of MR. Patient did have a cardiac catheterization prior to her valve surgery which revealed normal coronary arteries. The patient also has previous history of SVT, hypothyroidism, diverticular disease, kidney stones. She presented to the hospital yesterday because of fever and on examination she appears to be quite short of breath. He had increase in lower extremity edema also. She denied having any cough. She had no chest pain. She had mild sore throat and her blood work showed a white cell count of 12.6. With a proBNP level of 4730. Her renal function was stable and normal with a creatinine of 0.5. Electrodes were all within normal limits. Was a screen was negative. UA showed some RBCs without any significant white cells. The chest x-ray showed cardiomegaly. Changes consistent with post thoracotomy. There was pulmonary vessel congestion and a left-sided pleural effusion. The findings were slightly worse when compared to the older chest x-rays from 2018. Was admitted to the hospital. She was started on Rocephin and Zithromax. She was started on IV Lasix 40 mg every 12 hours. She is also on IV Solu-Medrol. Coumadin was resumed as the patient is on long-term articulation with warfarin. INR is at 2.9. Her cardiac rhythm is sinus for now with a first-degree AV block. She is on a combination of metoprolol and Rythmol. On today's evaluation of 07/30/2019, I'm seeing this patient for a follow-up. The patient is being treated for CHF exacerbation. Note that a CAT scan of the chest was done that showed cardiomegaly and there are changes to suggest underlying pulmonary arterial hypertension. There was a stable right basilar scar/atelectasis and a small left-sided pleural effusion fluid collection on the left which is somewhat loculated. The patient has a large pulmonary arteries. Currently, the patient is on a combination of DuoNeb nebulized treatments around the clock. She is on Lasix 40 mg IV every 12 hours. She is on Symbicort. Antibiotic coverage is on Zithromax and Omnicef. She is also on IV Solu Medrol 40 mg every 8 hours. INR is up to 6.1. The lactic acid level is down to 1.9. Objective - Vital Signs Vital signs: Vital Signs Temp 97.1 F L 07/30/19 05:00 Pulse 82 07/30/19 11:44 Resp 18 07/30/19 07:35 BP 102/57 07/30/19 05:00 Pulse Ox 95 07/30/19 05:00 Intake & Output 07/29/19 07/30/19 07/30/19 18:59 06:59 18:59 Intake Total 700 Balance 700 Weight 52.844 kg 48.9 kg Intake: Intake, IV Titration 700 Amount Sodium Chloride 0.9% 1, 450 000 ml @ 50 mls/hr IV . Q20H [facility] Rx#:[id number] Vancomycin 1,000 mg In 250 Sodium Chloride 0.9% 250 ml @ 125 mls/hr IVPB Q12H [facility] Rx#:[id number] Other: Voiding Method Bedside Commode Bedside Commode Bedside Commode Diaper Diaper Diaper Incontinent Incontinent Incontinent # Voids 4 1 1 # Bowel Movements 2 - Exam In appearance, comfortable thin and frail elderly female patient nonacute distress Head exam was generally normal. There was no scleral icterus or corneal arcus. Mucous membranes were moist. Neck was supple and without jugular venous distension, thyromegaly, or carotid bruits. Carotids were easily palpable bilaterally. There was no adenopathy. Lungs sounds are diminished in the bilateral crackles in lung bases bilaterally. Breath sounds are diminished in the left lung base along with some dullness to percussion. Cardiac exam revealed the PMI to be normally situated and sized. The rhythm was regular and no extrasystoles were noted during several minutes of auscultation. The first and second heart sounds were normal and physiologic splitting of the second heart sound was noted. There is a systolic ejection murmur grade 3/60 throughout the precordium is mainly in the left lateral sternal border and apex. The sternal wound is dry clean and intact Abdominal exam revealed normal bowel sounds. The abdomen was soft, non-tender, and without masses, organomegaly, or appreciable enlargement of the abdominal aorta. Extremities show deformity related to rheumatoid arthritis. There is some edema in lower extremity is bilaterally, trace and there is no cyanosis or clubbing. Neurologically awake and alert 3 and there is no focal neurological deficit. Examination of the skin revealed no evidence of significant rashes, suspicious appearing nevi or other concerning lesions. - Labs CBC & Chem 7: 07/30/19 05:42 07/30/19 05:42 Labs: Abnormal Lab Results - Last 24 Hours (Table) 07/29/19 07/29/19 07/29/19 Range/Units 12:14 16:12 20:38 WBC (3.8-10.6) k/uL RDW (11.5-15.5) % Neutrophils # (1.3-7.7) k/uL PT (9.0-12.0) sec INR (<1.2) BUN (7-17) mg/dL Glucose (74-99) mg/dL Plasma Lactic Acid Wilfred 2.6 H* 4.3 H* 3.4 H* (0.7-2.0) mmol/L Albumin (3.5-5.0) g/dL 07/30/19 07/30/19 07/30/19 Range/Units 01:01 05:42 05:42 WBC 14.1 H (3.8-10.6) k/uL RDW 18.5 H (11.5-15.5) % Neutrophils # 12.5 H (1.3-7.7) k/uL PT 61.2 H (9.0-12.0) sec INR 6.3 H* (<1.2) BUN (7-17) mg/dL Glucose (74-99) mg/dL Plasma Lactic Acid Wilfred 2.7 H* (0.7-2.0) mmol/L Albumin (3.5-5.0) g/dL 07/30/19 07/30/19 Range/Units 05:42 07:20 WBC (3.8-10.6) k/uL RDW (11.5-15.5) % Neutrophils # (1.3-7.7) k/uL PT 59.0 H (9.0-12.0) sec INR 6.1 H* (<1.2) BUN 28 H (7-17) mg/dL Glucose 156 H (74-99) mg/dL Plasma Lactic Acid Wilfred (0.7-2.0) mmol/L Albumin 3.3 L (3.5-5.0) g/dL Microbiology - Last 24 Hours (Table) 07/28/19 16:08 Urine Culture - Preliminary Urine,Clean Catch Gram Neg Bacilli 07/28/19 15:39 Blood Culture - Preliminary Blood No Growth after 24 hours Assessment and Plan Plan: 1 chronic dyspnea with some acute decompensation of her breathing and worsening shortness of breath. Consider acute CHF versus an acute bronchitis putting this patient into worsening heart failure. Nevertheless, the chest x-ray shows chronic findings including cardiomegaly and some possible effusion on the left. The computed tomography scan of the chest showed a loculated left-sided pleural effusion, small along with cardiomegaly and pulmonary arterial hypertension. 2 history of valvular heart disease with previous aortic valve replacement and mitral valve repair, the patient has a bioprosthetic aortic valve 3 CHF with mild systolic heart failure and ejection fraction of 45% 4 paroxysmal atrial fibrillation/flutter current rhythm is sinus maintained on long-term articulation with warfarin with a therapeutic PT/INR 5 COPD maintained on Advair and Proventil rescue inhaler less than basis 6 hypothyroidism 7 hypothyroidism 8 diverticular disease PLAN The patient is looking better. Continue same treatment. Continue diuretics. Continue bronchodilators. Continue current antibiotic coverage. Steroids have been tapered. Hold Coumadin and monitor the PT/INR. Monitor the INR level. Lactic acid level is improved. We'll continue to follow.
--- NOTE | 2019-07-30 14:12 | P.CRDCN ---
History of Present Illness Consult date: 07/30/19 History of present illness: This is a very pleasant 74-year-old female patient who sees Dr. Flores in the office on regular basis with a past medical history significant for valvular heart disease where the patient underwent in the past aortic valve replacement using bioprosthetic aortic valve as well as mitral valve repair, paroxysmal atrial fibrillation, chronic obstructive pulmonary disease, as well as hypertension and dyslipidemia, was admitted to the hospital with possible pneumonia. The patient was not feeling well for the last few days where she was experiencing generalized weakness as well as fever. She was seen by her primary care physician where she was noticed to have a temperature. At that point pneumonia was suspected and the patient was sent to the hospital. The patient somewhat is a poor historian but she denies any symptoms of increasing shortness of breath. Denies any increasing in the lower extremities edema. Denies any symptoms of chest pain or chest discomfort. No dizziness or lightheadedness or syncope. The chest x-ray showed left pleural effusion. The computed tomography scan of the chest showed loculated left pleural effusion. The BNP came in to be at 3700. The WBC was slightly elevated. Currently the patient is on antibiotic for possible underlying pneumonia and also she is on Lasix IV for possible component of congestive heart failure. When the patient was seen and examined this morning, she does not seems to be fluid overloaded although I was able to hear bilateral rhonchi in both lung bases. No lower extremities edema noted whatsoever at this point. She is on Coumadin for anticoagulation for the atrial fibrillation and currently the Coumadin is on hold because INR was supratherapeutic. Past Medical History Past Medical History: Atrial Fibrillation, Heart Failure, COPD, GERD/Reflux, Osteoarthritis (OA), Renal Disease, Rheumatoid Arthritis (RA), Supraventricular Tachycardia (SVT), Thyroid Disorder Additional Past Medical History / Comment(s): Valvular heart disease with previous aortic valve replacement and a mitral valve repair, congestion heart failure Paroxysmal Afib, history of SVT, history of nonsustained VT, SOB with exertion, home O2 at 2L/NC usually prn but lately ATC, arthritis, RA several joints, current L elbow pain/swelling-had "injection", nephrolithiasis, hypothyroid, diverticular dx, UTI, iron deficiency anemia. Obesity History of Any Multi-Drug Resistant Organisms: None Reported Past Surgical History: Coronary Bypass/CABG, Heart Catheterization, Hysterec latoya, Joint Replacement, Orthopedic Surgery Additional Past Surgical History / Comment(s): Geoff total knees arthroplasty,lt hip arthroplasty, goiter removed 1963, partial thyroidectomy, cataracts removed with lens implants, REVERSE TOTAL RIGHT SHOULDER; Rotator cuff R shoulder, cervical fusion/injections, colonoscopy, MATTHEW, valve surgery at [facility] 10/13/17 Prosthetic Aortic valve and mitral valve repair. Past Anesthesia/Blood Transfusion Reactions: No Reported Reaction Past Psychological History: No Psychological Hx Reported Additional Psychological History / Comment(s): Pt resides with her spouse in an apartment with no stairs. She used to drive but not since valve surgery. Her spouse is helpful and able to drive her to appts. She has home oxygen. She uses a walker to ambulate and has a cane. She also has a scale and B/P monitor. She has used VMA in the recent past. Smoking Status: Former smoker Past Alcohol Use History: None Reported Additional Past Alcohol Use History / Comment(s): She used to drink 2 glasses of wine per week but hasn't for months, quit smoking @age of 43, smoked 1ppd for 30 yrs. Past Drug Use History: None Reported - Past Family History Father Family Medical History: Myocardial Infarction (NH) Additional Family Medical History / Comment(s): in his 80's of a mi Mother Additional Family Medical History / Comment(s): age 88 in custodial pt not sure what she from. hx smoking. Medications and Allergies Home Medications Medication Instructions Recorded Confirmed Type Fluticasone/Salmeterol [Advair Hfa 1 puff INHALATION RT-BID 09/15/17 07/28/19 History 230-21 Mcg Inhaler] ALPRAZolam [Xanax] 0.25 mg PO BID PRN 11/27/17 07/28/19 History HYDROcodone/APAP 10-325MG [[place] 1 tab PO Q6H PRN 11/27/17 07/28/19 History 10-325] Warfarin Sodium [Coumadin] 2.5 mg PO DAILY #30 tablet 12/01/17 07/28/19 Rx Metoprolol Tartrate [Lopressor] 25 mg PO BID 01/27/18 07/28/19 History Ferrous Sulfate [Feosol] 325 mg PO DAILY #30 tab 01/30/18 07/28/19 Rx Propafenone [Rythmol] 150 mg PO TID #90 tablet 01/30/18 07/28/19 Rx Albuterol Sulfate [Proair Hfa] 2 puff INHALATION RT-Q4H PRN 07/28/19 07/28/19 History Furosemide [Lasix] 20 mg PO DAILY@1600 07/28/19 07/28/19 History Furosemide [Lasix] 40 mg PO DAILY@0900 07/28/19 07/28/19 History Levothyroxine Sodium [Levoxyl] 200 mcg PO DAILY 07/28/19 07/28/19 History Allergies Allergy/AdvReac Type Severity Reaction Status Date / Time lisinopril Allergy Unknown Verified 07/28/19 20:09 Physical Exam Vitals: Vital Signs Temp Pulse Pulse Pulse Pulse Resp BP 07/30/19 12:53 98.7 F 89 19 102/65 07/30/19 11:44 82 07/30/19 11:34 82 07/30/19 07:56 82 07/30/19 07:45 80 07/30/19 07:35 18 07/30/19 05:00 97.1 F L 90 18 102/57 07/29/19 23:42 98 109/58 07/29/19 20:59 97.7 F 91 18 109/68 07/29/19 20:06 84 07/29/19 19:55 84 07/29/19 15:22 89 07/29/19 15:12 88 07/29/19 14:48 118 H 119/57 Pulse Ox 07/30/19 12:53 97 07/30/19 11:44 07/30/19 11:34 07/30/19 07:56 07/30/19 07:45 07/30/19 07:35 07/30/19 05:00 95 07/29/19 23:42 97 07/29/19 20:59 95 07/29/19 20:06 07/29/19 19:55 07/29/19 15:22 07/29/19 15:12 07/29/19 14:48 Intake and Output 07/29/19 07/30/19 07/30/19 22:59 06:59 14:59 Intake Total 300 400 Balance 300 400 Intake: Intake, IV Titration 300 400 Amount Sodium Chloride 0.9% 1, 50 400 000 ml @ 50 mls/hr IV . Q20H [facility] Rx#:[id number] Vancomycin 1,000 mg In 250 Sodium Chloride 0.9% 250 ml @ 125 mls/hr IVPB Q12H [facility] Rx#:[id number] Other: Voiding Method Bedside Commode Bedside Commode Diaper Diaper Incontinent Incontinent # Voids 1 1 # Bowel Movements 2 Weight 48.9 kg - Constitutional General appearance: no acute distress - Respiratory Respiratory: bilateral: rales - Cardiovascular Rhythm: regular Heart sounds: normal: S1, S2 Abnormal Heart Sounds: systolic murmur Results 07/30/19 05:42 07/30/19 05:42 Cardiac Enzymes 07/30/19 Range/Units 05:42 AST 23 (14-36) U/L Coagulation 07/30/19 07/30/19 Range/Units 05:42 07:20 PT 61.2 H 59.0 H (9.0-12.0) sec CBC 07/30/19 Range/Units 05:42 WBC 14.1 H (3.8-10.6) k/uL RBC 4.37 (3.80-5.40) m/uL Hgb 11.7 (11.4-16.0) gm/dL Hct 36.3 (34.0-46.0) % Plt Count 230 (150-450) k/uL Comprehensive Metabolic Panel 07/29/19 07/30/19 Range/Units 20:38 05:42 Sodium 140 (137-145) mmol/L Potassium 3.5 3.7 (3.5-5.1) mmol/L Chloride 104 (98-107) mmol/L Carbon Dioxide 28 (22-30) mmol/L BUN 28 H (7-17) mg/dL Creatinine 0.66 (0.52-1.04) mg/dL Glucose 156 H (74-99) mg/dL Calcium 9.1 (8.4-10.2) mg/dL AST 23 (14-36) U/L ALT 35 (9-52) U/L Alkaline Phosphatase 101 (38-126) U/L Total Protein 6.4 (6.3-8.2) g/dL Albumin 3.3 L (3.5-5.0) g/dL Current Medications Generic Name Dose Route Start Last Admin Trade Name Freq PRN Reason Stop Dose Admin Acetaminophen 650 mg 07/28/19 17:59 07/28/19 18:17 Tylenol Tab PO 650 mg Q6HR PRN Administration Fever and/ or Mild Pain Hydrocodone Bitart/Acetaminophen 1 each 07/28/19 20:36 [place] 10 PO Q6H PRN Pain Albuterol Sulfate 2.5 mg 07/28/19 20:36 Ventolin Nebulized INHALATION RT-Q4H PRN Shortness Of Breath Albuterol/Ipratropium 3 ml 07/28/19 20:00 07/30/19 11:34 Duoneb 0.5 Mg-3 Mg/3 Ml Soln INHALATION 3 ml RT-QID CARLOS Administration Alprazolam 0.25 mg 07/28/19 20:36 Xanax PO BID PRN Anxiety Azithromycin 500 mg 07/31/19 09:00 Zithromax PO DAILY CARLOS Budesonide/Formoterol Fumarate 2 puff 07/29/19 08:00 07/30/19 07:45 Symbicort 160-4.5 Mcg Inhaler INHALATION 2 puff RT-BID CARLOS Administration Cefdinir 300 mg 07/31/19 09:00 Omnicef PO BID CARLOS Famotidine 20 mg 07/31/19 09:00 Pepcid PO DAILY CARLOS Ferrous Sulfate 325 mg 07/29/19 09:00 07/30/19 08:57 Feosol PO 325 mg DAILY CARLOS Administration Furosemide 40 mg 07/28/19 21:00 07/30/19 08:57 Lasix IV 40 mg Q12HR CARLOS Administration Vancomycin HCl 1,000 mg/ 250 mls @ 125 mls/hr 07/29/19 19:00 07/30/19 08:54 Sodium Chloride IVPB 125 mls/hr Q12H CARLOS Administration Levothyroxine Sodium 200 mcg 07/29/19 06:30 07/30/19 05:46 Synthroid PO 200 mcg DAILY@0630 CARLOS Administration Methylprednisolone Sodium Succinate 40 mg 07/29/19 16:00 07/30/19 08:57 Solu-Medrol IV 40 mg Q8HR CARLOS Administration Metoprolol Tartrate 25 mg 07/28/19 21:00 07/30/19 08:56 Lopressor PO 25 mg BID CARLOS Administration Miscellaneous Information 0 each 07/28/19 20:48 Coumadin Per Pharmacy MISCELLANE DIRECTED PRN PHARMACY DOSING WARFARIN Miscellaneous Information 1 each 07/29/19 17:56 Potassium Per Protocol MISCELLANE DAILY PRN Per Protocol Protocol Miscellaneous Information 1 each 07/29/19 21:31 Potassium Per Protocol MISCELLANE DAILY PRN Per Protocol Protocol Miscellaneous Information 0 each 07/31/19 18:00 Vancomycin Trough Due MISCELLANE 07/31/19 18:01 DIRECTED ONE Propafenone HCl 150 mg 07/28/19 22:00 07/30/19 08:59 Rythmol PO 150 mg TID CARLOS Administration Warfarin Sodium 0 mg 07/30/19 18:00 07/30/19 08:59 Coumadin PO 07/30/19 18:01 Not Given ONCE@1800 ONE Intake and Output 07/29/19 07/30/19 07/30/19 22:59 06:59 14:59 Intake Total 300 400 Balance 300 400 Intake: Intake, IV Titration 300 400 Amount Sodium Chloride 0.9% 1, 50 400 000 ml @ 50 mls/hr IV . Q20H [facility] Rx#:[id number] Vancomycin 1,000 mg In 250 Sodium Chloride 0.9% 250 ml @ 125 mls/hr IVPB Q12H [facility] Rx#:[id number] Other: Voiding Method Bedside Commode Bedside Commode Diaper Diaper Incontinent Incontinent # Voids 1 1 # Bowel Movements 2 Weight 48.9 kg 07/30/19 05:42 07/30/19 05:42 Assessment and Plan Assessment: Assessment #1 dyspnea of multi-factorial likely related to pneumonia more than heart failure #2 probably mild component of congestive heart failure exacerbation related to systolic dysfunction. The last echocardiogram in 2018 revealed an ejection fraction between 40-45%. #3 paroxysmal atrial fibrillation #4 status post aortic valve replacement and mitral valve repair #5 supratherapeutic INR Plan #1 currently the patient is on antibiotic for the pneumonia #2 I agree to keep the patient on the current dose of Lasix IV for additional 24 hours #3 continue monitor her kidney function and electrolytes #4 repeat the echocardiogram. The last echo was in 2018 #5 hold the Coumadin today. She was given vitamin K already #6 monitor the INR Thank you for allowing us participate in the care of the patient.
[2019-07-30] MEDS ORDERED: WARFARIN 2.5 MG TAB PO SCH (18:00)
[2019-07-30] MEDS ORDERED: WARFARIN 0.5 MG TAB PO ONE (18:00)
--- NOTE | 2019-07-30 20:36 | P.CONS ---
History of Present Illness - Reason for Consult Consult date: 07/30/19 - Chief Complaint fever - History of Present Illness 74 year old woman presents to hospital from physicians office where she presented because she felt ill with chills and cough and some shortness of breath, at arrival to the officers evidence of temperature greater than 102 because she was directed to hospital for admission. Temperature 101.4 was noted and there was evidence of imaging studies with the possibility of the left lower lobe infiltrate and consequently she's been admitted and placed on antibiotic therapy. Her fever is improving and she is feeling slightly better. She is less short of breath, she's been seen by cardiology and although she does have significant underlying cardiovascular disease is not thought to be in overt congestive heart failure. She does have the significant history of cardiovascular disease as well as an aortic valve replacement which is bioprosthetic and repair of her mitral valve. She does have underlying COPD and stopped smoking now several years ago. She does use home oxygen and home nebulizer treatments. There are no evidence of a positive blood cultures at this time but she did have a fever further evaluation was requested. Review of Systems HEENT:Denies headache or acute visual change. Denies sinus or mouth discomforts. Denies neck stiffness or pain. Denies significant oral cavity pain. Denies difficulty on swallowing. Lungs: Chronic shortness of breath that was somewhat worse at the time of adm ission, she does not have hemoptysis or significant change in her sputum production Cardiovascular: She does not have chest pain or orthopnea but she did have dyspnea exertion and cough with some worsening of her baseline shortness of breath Gastrointestinal:Denies nausea, vomiting, diarrhea, constipation, hematemesis, melena, hematochezia. No no significant change of bowel habit noticed. Musculoskeletal: denies significant myalgias or arthralgias. No new joint swelling. Denies new back pain. Skin: Denies new rash or lesions. No new ulcers or wounds are related.. Neuro: Denies headache or visual change. Denies any new onset weakness or difficulty with ambulation. Denies falls or seizures. Psychiatric:Denies anxiety or depression. Endocrine: Denies significant fatigue, denies significant weight loss or weight gain. Past Medical History Past Medical History: Atrial Fibrillation, Heart Failure, COPD, GERD/Reflux, Osteoarthritis (OA), Renal Disease, Rheumatoid Arthritis (RA), Supraventricular Tachycardia (SVT), Thyroid Disorder Additional Past Medical History / Comment(s): Valvular heart disease with prev ious aortic valve replacement and a mitral valve repair, congestion heart failure Paroxysmal Afib, history of SVT, history of nonsustained VT, SOB with exertion, home O2 at 2L/NC usually prn but lately ATC, arthritis, RA several joints, current L elbow pain/swelling-had "injection", nephrolithiasis, hypothyroid, diverticular dx, UTI, iron deficiency anemia. Obesity History of Any Multi-Drug Resistant Organisms: None Reported Past Surgical History: Coronary Bypass/CABG, Heart Catheterization, Hysterectomy, Joint Replacement, Orthopedic Surgery Additional Past Surgical History / Comment(s): Geoff total knees arthroplasty,lt hip arthroplasty, goiter removed 1963, partial thyroidectomy, cataracts removed with lens implants, REVERSE TOTAL RIGHT SHOULDER; Rotator cuff R shoulder, cervical fusion/injections, colonoscopy, MATTHEW, valve surgery at [facility] 10/13/17 Prosthetic Aortic valve and mitral valve repair. Past Anesthesia/Blood Transfusion Reactions: No Reported Reaction Past Psychological History: No Psychological Hx Reported Additional Psychological History / Comment(s): Pt resides with her spouse in an apartment with no stairs. She used to drive but not since valve surgery. Her spouse is helpful and able to drive her to appts. She has home oxygen. She uses a walker to ambulate and has a cane. She also has a scale and B/P monitor. She has used VMA in the recent past. Smoking Status: Former smoker Past Alcohol Use History: None Reported Additional Past Alcohol Use History / Comment(s): She used to drink 2 glasses of wine per week but hasn't for months, quit smoking @age of 43, smoked 1ppd for 30 yrs. Past Drug Use History: None Reported - Past Family History Father Family Medical History: Myocardial Infarction ([place]) Additional Family Medical History / Comment(s): in his 80's of a mi Mother Additional Family Medical History / Comment(s): age 88 in detention pt not sure what she from. hx smoking. Medications and Allergies Home Medications and Allergies Comment(s): Current Medications Acetaminophen (Tylenol Tab) 650 mg PO Q6HR PRN PRN Reason: Fever and/ or Mild Pain Last Admin: 07/28/19 18:17 Dose: 650 mg Documented by: Hydrocodone Bitart/Acetaminophen ([place] 10) 1 each PO Q6H PRN PRN Reason: Pain Albuterol Sulfate (Ventolin Nebulized) 2.5 mg INHALATION RT-Q4H PRN PRN Reason: Shortness Of Breath Albuterol/Ipratropium (Duoneb 0.5 Mg-3 Mg/3 Ml Soln) 3 ml INHALATION RT-QID [facility] Last Admin: 07/30/19 19:30 Dose: 3 ml Documented by: Alprazolam (Xanax) 0.25 mg PO BID PRN PRN Reason: Anxiety Azithromycin (Zithromax) 500 mg PO DAILY [facility] Budesonide/Formoterol Fumarate (Symbicort 160-4.5 Mcg Inhaler) 2 puff INHALATION RT-BID [facility] Last Admin: 07/30/19 19:46 Dose: 2 puff Documented by: Cefdinir (Omnicef) 300 mg PO BID [facility] Famotidine (Pepcid) 20 mg PO DAILY [facility] Ferrous Sulfate (Feosol) 325 mg PO DAILY [facility] Last Admin: 07/30/19 08:57 Dose: 325 mg Documented by: Furosemide (Lasix) 40 mg IV Q12HR [facility] Last Admin: 07/30/19 08:57 Dose: 40 mg Documented by: Vancomycin HCl 1,000 mg/ (Sodium Chloride) 250 mls @ 125 mls/hr IVPB Q12H [facility] Last Admin: 07/30/19 18:52 Dose: 125 mls/hr Documented by: Levothyroxine Sodium (Synthroid) 200 mcg PO DAILY@0630 [facility] Last Admin: 07/30/19 05:46 Dose: 200 mcg Documented by: Methylprednisolone Sodium Succinate (Solu-Medrol) 40 mg IV Q8HR [facility] Last Admin: 07/30/19 15:58 Dose: 40 mg Documented by: Metoprolol Tartrate (Lopressor) 25 mg PO BID [facility] Last Admin: 07/30/19 08:56 Dose: 25 mg Documented by: Miscellaneous Information (Coumadin Per Pharmacy) 0 each MISCELLANE DIRECTED PRN PRN Reason: PHARMACY DOSING WARFARIN Miscellaneous Information (Potassium Per Protocol) 1 each MISCELLANE DAILY PRN; Protocol PRN Reason: Per Protocol Miscellaneous Information (Potassium Per Protocol) 1 each MISCELLANE DAILY PRN; Protocol PRN Reason: Per Protocol Miscellaneous Information (Vancomycin Trough Due) 0 each MISCELLANE DIRECTED ONE Stop: 07/31/19 18:01 Propafenone HCl (Rythmol) 150 mg PO TID [facility] Last Admin: 07/30/19 15:58 Dose: 150 mg Documented by: Home Medications Medication Instructions Recorded Confirmed Type Fluticasone/Salmeterol [Advair Hfa 1 puff INHALATION RT-BID 09/15/17 07/28/19 History 230-21 Mcg Inhaler] ALPRAZolam [Xanax] 0.25 mg PO BID PRN 11/27/17 07/28/19 History HYDROcodone/APAP 10-325MG [[place] 1 tab PO Q6H PRN 11/27/17 07/28/19 History 10-325] Warfarin Sodium [Coumadin] 2.5 mg PO DAILY #30 tablet 12/01/17 07/28/19 Rx Metoprolol Tartrate [Lopressor] 25 mg PO BID 01/27/18 07/28/19 History Ferrous Sulfate [Feosol] 325 mg PO DAILY #30 tab 01/30/18 07/28/19 Rx Propafenone [Rythmol] 150 mg PO TID #90 tablet 01/30/18 07/28/19 Rx Albuterol Sulfate [Proair Hfa] 2 puff INHALATION RT-Q4H PRN 07/28/19 07/28/19 History Furosemide [Lasix] 20 mg PO DAILY@1600 07/28/19 07/28/19 History Furosemide [Lasix] 40 mg PO DAILY@0900 07/28/19 07/28/19 History Levothyroxine Sodium [Levoxyl] 200 mcg PO DAILY 07/28/19 07/28/19 History Allergies Allergy/AdvReac Type Severity Reaction Status Date / Time lisinopril Allergy Unknown Verified 07/28/19 20:09 Physical Exam Vitals: Vital Signs Temp Pulse Pulse Pulse Pulse Resp BP 07/30/19 19:47 92 07/30/19 19:32 94 07/30/19 16:38 19 07/30/19 15:42 77 07/30/19 15:32 76 07/30/19 12:53 98.7 F 89 19 102/65 07/30/19 11:44 82 07/30/19 11:34 82 07/30/19 07:56 82 07/30/19 07:45 80 07/30/19 07:35 18 07/30/19 05:00 97.1 F L 90 18 102/57 07/29/19 23:42 98 109/58 07/29/19 20:59 97.7 F 91 18 109/68 Pulse Ox 07/30/19 19:47 07/30/19 19:32 94 L 07/30/19 16:38 07/30/19 15:42 07/30/19 15:32 07/30/19 12:53 97 07/30/19 11:44 07/30/19 11:34 07/30/19 07:56 07/30/19 07:45 07/30/19 07:35 07/30/19 05:00 95 07/29/19 23:42 97 07/29/19 20:59 95 Intake and Output 07/30/19 07/30/19 07/30/19 06:59 14:59 22:59 Intake Total 400 1350 Balance 400 1350 Intake: Intake, IV Titration 400 900 Amount Azithromycin 500 mg In 250 Sodium Chloride 0.9% 250 ml @ 250 mls/hr IVPB DAILY [facility] Rx#:[id number] Sodium Chloride 0.9% 1, 400 300 000 ml @ 50 mls/hr IV . Q20H [facility] Rx#:[id number] Vancomycin 1,000 mg In 250 Sodium Chloride 0.9% 250 ml @ 125 mls/hr IVPB Q12H [facility] Rx#:[id number] cefTRIAXone 1 gm In 100 Sodium Chloride 0.9% 50 ml @ 100 mls/hr IVPB Q24HR [facility] Rx#:[id number] Oral 450 Other: Voiding Method Bedside Commode Bedside Commode Bedside Commode Diaper Diaper Diaper Incontinent Incontinent Incontinent # Voids 3 # Bowel Movements 1 Weight 48.9 kg HEENT: Anicteric conjunctiva are pink and moist nasal mucosa grossly intact without significant lesions, there is no thrush. Neck: The neck is supple without significant lymphadenopathy or thyromegaly. Lungs: There is symmetrical air entry, there is evidence of few crackles at the bilateral bases, some scattered wheezes are heard but no distinct bronchial sounds are noted, there was no dullness or egophony Heart: Regular rate and rhythm with an audible S1-S2, no S3 no S4. There is no significant murmur click or rub, PMI was nondisplaced. Abdomen: Positive bowel sounds soft and nontender without palpable masses or organomegaly. There was no guarding or rebound. Extremities: The upper extremities have excellent pulses they are symmetric, no significant petechiae or telangiectasia. No splinter hemorrhages were noted. The lower extremities are free from significant edema. The peripheral pulses were 2+ and symmetric. Neuro: Awake alert oriented to person place and time. There are no acute new gross focal sensory motor deficits. Results CBC & Chem 7: 07/30/19 05:42 07/30/19 05:42 Labs: Abnormal Lab Results - Last 24 Hours (Table) 07/29/19 07/30/19 07/30/19 Range/Units 20:38 01:01 05:42 WBC (3.8-10.6) k/uL RDW (11.5-15.5) % Neutrophils # (1.3-7.7) k/uL PT 61.2 H (9.0-12.0) sec INR 6.3 H* (<1.2) BUN (7-17) mg/dL Glucose (74-99) mg/dL Plasma Lactic Acid Wilfred 3.4 H* 2.7 H* (0.7-2.0) mmol/L Albumin (3.5-5.0) g/dL 07/30/19 07/30/19 07/30/19 Range/Units 05:42 05:42 07:20 WBC 14.1 H (3.8-10.6) k/uL RDW 18.5 H (11.5-15.5) % Neutrophils # 12.5 H (1.3-7.7) k/uL PT 59.0 H (9.0-12.0) sec INR 6.1 H* (<1.2) BUN 28 H (7-17) mg/dL Glucose 156 H (74-99) mg/dL Plasma Lactic Acid Wilfred (0.7-2.0) mmol/L Albumin 3.3 L (3.5-5.0) g/dL Microbiology - Last 24 Hours (Table) 07/28/19 15:39 Blood Culture - Preliminary Blood No Growth after 48 hours 07/28/19 16:08 Urine Culture - Preliminary Urine,Clean Catch Gram Neg Bacilli Laboratory Results WBC 14.1 k/uL (3.8-10.6) H 07/30/19 05:42 RBC 4.37 m/uL (3.80-5.40) 07/30/19 05:42 Hgb 11.7 gm/dL (11.4-16.0) 07/30/19 05:42 Hct 36.3 % (34.0-46.0) 07/30/19 05:42 MCV 83.0 fL (80.0-100.0) 07/30/19 05:42 MCH 26.7 pg (25.0-35.0) 07/30/19 05:42 MCHC 32.1 g/dL (31.0-37.0) 07/30/19 05:42 RDW 18.5 % (11.5-15.5) H 07/30/19 05:42 Plt Count 230 k/uL (150-450) 07/30/19 05:42 Neutrophils % 89 % 07/30/19 05:42 Lymphocytes % 7 % 07/30/19 05:42 Monocytes % 3 % 07/30/19 05:42 Eosinophils % 0 % 07/30/19 05:42 Basophils % 0 % 07/30/19 05:42 Neutrophils # 12.5 k/uL (1.3-7.7) H 07/30/19 05:42 Lymphocytes # 1.0 k/uL (1.0-4.8) 07/30/19 05:42 Monocytes # 0.5 k/uL (0-1.0) 07/30/19 05:42 Eosinophils # 0.0 k/uL (0-0.7) 07/30/19 05:42 Basophils # 0.0 k/uL (0-0.2) 07/30/19 05:42 Hypochromasia Slight 07/28/19 15:39 Anisocytosis Slight 07/30/19 05:42 Microcytosis Slight 07/30/19 05:42 PT 59.0 sec (9.0-12.0) H 07/30/19 07:20 INR 6.1 (<1.2) H* 07/30/19 07:20 APTT 27.9 sec (22.0-30.0) 07/28/19 15:39 Sodium 140 mmol/L (137-145) 07/30/19 05:42 Potassium 3.7 mmol/L (3.5-5.1) 07/30/19 05:42 Chloride 104 mmol/L (98-107) 07/30/19 05:42 Carbon Dioxide 28 mmol/L (22-30) 07/30/19 05:42 Anion Gap 8 mmol/L 07/30/19 05:42 BUN 28 mg/dL (7-17) H 07/30/19 05:42 Creatinine 0.66 mg/dL (0.52-1.04) 07/30/19 05:42 Est GFR (CKD-EPI)AfAm >90 (>60 ml/min/1.73 sqM) 07/30/19 05:42 Est GFR (CKD-EPI)NonAf 86 (>60 ml/min/1.73 sqM) 07/30/19 05:42 Glucose 156 mg/dL (74-99) H 07/30/19 05:42 Lactic Ac Sepsis Rflx Y 07/30/19 02:30 Plasma Lactic Acid Wilfred 1.9 mmol/L (0.7-2.0) 07/30/19 05:42 Calcium 9.1 mg/dL (8.4-10.2) 07/30/19 05:42 Total Bilirubin 0.6 mg/dL (0.2-1.3) 07/30/19 05:42 AST 23 U/L (14-36) 07/30/19 05:42 ALT 35 U/L (9-52) 07/30/19 05:42 Alkaline Phosphatase 101 U/L (38-126) 07/30/19 05:42 NT-Pro-B Natriuret Pep 4730 pg/mL 07/28/19 15:39 Total Protein 6.4 g/dL (6.3-8.2) 07/30/19 05:42 Albumin 3.3 g/dL (3.5-5.0) L 07/30/19 05:42 Urine Color Yellow 07/28/19 16:08 Urine Appearance Clear (Clear) 07/28/19 16:08 Urine pH 7.5 (5.0-8.0) 07/28/19 16:08 Ur Specific [place] 1.013 (1.001-1.035) 07/28/19 16:08 Urine Protein Negative (Negative) 07/28/19 16:08 Urine Glucose (UA) Negative (Negative) 07/28/19 16:08 Urine Ketones Negative (Negative) 07/28/19 16:08 Urine Blood Small (Negative) H 07/28/19 16:08 Urine Nitrite Negative (Negative) 07/28/19 16:08 Urine Bilirubin Negative (Negative) 07/28/19 16:08 Urine Urobilinogen <2.0 mg/dL (<2.0) 07/28/19 16:08 Ur Leukocyte Esterase Negative (Negative) 07/28/19 16:08 Urine RBC 42 /hpf (0-5) H 07/28/19 16:08 Urine WBC 1 /hpf (0-5) 07/28/19 16:08 Ur Squamous Epith Cells 2 /hpf (0-4) 07/28/19 16:08 Urine Mucus Rare /hpf (None) H 07/28/19 16:08 Influenza Type A RNA Not Detected (Not Detectd) 07/28/19 15:40 Influenza Type B (PCR) Not Detected (Not Detectd) 07/28/19 15:40 Microbiology 07/28/19 15:39 Blood Blood Culture - Preliminary No Growth after 48 hours 07/28/19 16:08 Urine,Clean Catch Urine Culture - Preliminary Gram Neg Bacilli Assessment and Plan (1) Fever Narrative/Plan: 74-year-old woman presents to her physician office She was not feeling well and upon arrival was noted to have a significant fever it was directed to hospital. The patient has evidence of temperature 101.4 admission in counseling workup was initiated. Blood cultures are negative so far urinalysis is mildly abnormal urine culture was some gram-negative bacilli and chest x-ray shows evidence of a likely mild left lower lobe infiltration. She's been treated with antibiotic therapy and is now on Omnicef and azithromycin seems to be tolerating it very well. Her fevers resolved. Her respiratory status is improved but she has been receiving some steroids. This is likely the reason for her current leukocytosis but she certainly clinically has improved. She is afebrile and her breathing is now relieved. When she is ready for discharge home with complete the course of the Omnicef and azithromycin, this however could change pending the urine culture results. Current Visit: Yes Status: Acute Code(s): R50.9 - FEVER, UNSPECIFIED SNOMED Code(s): 644453354 (2) Pneumonia Current Visit: Yes Status: Acute Code(s): J18.9 - PNEUMONIA, UNSPECIFIED ORGANISM SNOMED Code(s): 869215651 (3) Acute exacerbation of chronic obstructive airways disease Current Visit: No Status: Acute Code(s): J44.1 - CHRONIC OBSTRUCTIVE PULMONARY DISEASE W (ACUTE) EXACERBATION SNOMED Code(s): 497124558
[2019-07-31] MEDS: methylPREDNISolone SOD SUCCI 40 MG/ML 1 ML VIAL IV SCH ×4 (00:19→23:16)
[2019-07-31] MEDS: LEVOTHYROXINE 100 MCG TAB PO SCH (05:52)
[2019-07-31] MEDS: FERROUS SULFATE 325 MG TAB PO SCH (07:25)
[2019-07-31] MEDS: AZITHROMYCIN 500 MG TAB PO SCH (07:25)
[2019-07-31] MEDS: CEFDINIR 300 MG CAP PO SCH ×2 (07:25→21:13)
[2019-07-31] MEDS: FAMOTIDINE 20 MG TAB PO SCH (07:25)
[2019-07-31] MEDS: PROPAFENONE 150 MG TAB PO SCH ×3 (07:25→21:13)
[2019-07-31] MEDS: METOPROLOL TARTRATE 25 MG TAB PO SCH ×2 (07:26→21:13)
[2019-07-31] MEDS: FUROSEMIDE 10 MG/ML 4 ML VIAL IV SCH ×2 (07:26→16:41)
[2019-07-31] MEDS: VANCOMYCIN 1,000 MG in SODIUM CHLORIDE 0.9% 250 ML IVPB SCH ×2 (07:26→19:57)
[2019-07-31 07:31] LABS: Anisocytosis Slight; Basophils % (A) 0 %; Eosinophils % (A) 0 %; HCT 36.3 % (34.0-46.0); HGB 11.4 gm/dL (11.4-16.0); Lymphocytes # (A) 0.7 k/uL (1.0-4.8); Lymphocytes % (A) 6 %; MCH 26.1 pg (25.0-35.0); MCHC 31.3 g/dL (31.0-37.0); MCV 83.2 fL (80.0-100.0); Monocytes # (A) 0.4 k/uL (0-1.0); Monocytes % (A) 3 %; Neutrophils # (A) 9.9 k/uL (1.3-7.7); Neutrophils % (A) 89 %; Platelet Count 260 k/uL (150-450); RBC 4.36 m/uL (3.80-5.40); RDW 18.4 % (11.5-15.5); WBC 11.2 k/uL (3.8-10.6)
[2019-07-31 07:33] LABS: INR 1.7 (<1.2); Prothrombin Time 16.5 sec (9.0-12.0)
[2019-07-31 07:51] LABS: ALT 65 U/L (9-52); AST 49 U/L (14-36); African American GFR (CKD) >90 (>60 ml/min/1.73 sqM); Albumin 3.3 g/dL (3.5-5.0); Alkaline Phosphatase 105 U/L (38-126); Anion Gap 8 mmol/L; Blood Urea Nitrogen 26 mg/dL (7-17); Calcium 9.2 mg/dL (8.4-10.2); Carbon Dioxide 32 mmol/L (22-30); Chloride 101 mmol/L (98-107); Glucose 158 mg/dL (74-99); Non-African American GFR(CKD) 88 (>60 ml/min/1.73 sqM); Potassium 3.3 mmol/L (3.5-5.1); Sodium 141 mmol/L (137-145); Total Bilirubin 0.7 mg/dL (0.2-1.3); Total Protein 6.6 g/dL (6.3-8.2)
[2019-07-31] MEDS ORDERED: Potassium Replacement Protocol 1 EACH MISC MISCELLANE PRN (08:27)
[2019-07-31] MEDS: POTASSIUM CHLORIDE ER 20 MEQ TAB.ER PO SCH ×3 (09:12→14:21)
[2019-07-31] MEDS: IPRATROPIUM-ALBUTEROL 3 ML NEB INHALATION SCH ×4 (09:18→19:49)
--- NOTE | 2019-07-31 10:39 | P.PN ---
Subjective Progress Note Date: 07/31/19 Principal diagnosis: Sepsis, pneumonia, chronic congestive heart failure acute on chronic systolic heart failure, COPD exacerbation, atrial fibrillation, rheumatoid arthritis, ejection fraction of 40% with non-ischemic cardiomyopathy 07/31/2019, patient sitting upright on the bed breathing is still heavily still evident intermittent cough and shortness of breath patient has been on broad- spectrum antibiotics, white cell count is coming down, her lactic acid is normalized, potassium is low has been on potassium replacement protocol Objective - Vital Signs Vital signs: Vital Signs Temp 98.2 F 07/31/19 04:36 Pulse 92 07/31/19 09:30 Resp 18 07/31/19 08:00 BP 100/52 07/31/19 04:36 Pulse Ox 95 07/31/19 04:36 Intake & Output 07/30/19 07/31/19 07/31/19 18:59 06:59 18:59 Intake Total 1350 490 Balance 1350 490 Weight 52.844 kg Intake: Intake, IV Titration 900 490 Amount Azithromycin 500 mg In 250 Sodium Chloride 0.9% 250 ml @ 250 mls/hr IVPB DAILY [facility] Rx#:[id number] Sodium Chloride 0.9% 1, 300 240 000 ml @ 50 mls/hr IV . Q20H [facility] Rx#:[id number] Vancomycin 1,000 mg In 250 250 Sodium Chloride 0.9% 250 ml @ 125 mls/hr IVPB Q12H [facility] Rx#:[id number] cefTRIAXone 1 gm In 100 Sodium Chloride 0.9% 50 ml @ 100 mls/hr IVPB Q24HR [facility] Rx#:[id number] Oral 450 Other: Voiding Method Bedside Commode Bedside Commode Bedside Commode Diaper Incontinent Incontinent Incontinent # Voids 3 2 # Bowel Movements 1 - Exam In general patient is alert and oriented 3 in no apparent distress HEENT head normocephalic and atraumatic Neck is supple no JVD no goiter no lymphadenopathy no carotid bruit Chest exam reveals a few scattered crackles bilaterally no wheezing Cardiac exam reveals irregular heart sounds S1 and S2 no gallops no murmurs Abdomen is soft nontender no organomegaly with normal bowel sounds Extremity exam reveals no edema no cyanosis or clubbing Neurological examination reveals no gross focal deficit - Labs CBC & Chem 7: 07/31/19 06:57 07/31/19 06:57 Labs: Abnormal Lab Results - Last 24 Hours (Table) 07/31/19 07/31/19 07/31/19 Range/Units 06:57 06:57 06:57 WBC 11.2 H (3.8-10.6) k/uL RDW 18.4 H (11.5-15.5) % Neutrophils # 9.9 H (1.3-7.7) k/uL Lymphocytes # 0.7 L (1.0-4.8) k/uL PT 16.5 H (9.0-12.0) sec INR 1.7 H (<1.2) Potassium 3.3 L (3.5-5.1) mmol/L Carbon Dioxide 32 H (22-30) mmol/L BUN 26 H (7-17) mg/dL Glucose 158 H (74-99) mg/dL AST 49 H (14-36) U/L ALT 65 H (9-52) U/L Albumin 3.3 L (3.5-5.0) g/dL Microbiology - Last 24 Hours (Table) 07/28/19 16:08 Urine Culture - Final Urine,Clean Catch Morganella morganii 07/28/19 15:39 Blood Culture - Preliminary Blood No Growth after 48 hours Assessment and Plan Assessment: Sepsis Pneumonia possibly right lower lobe Acute on chronic systolic heart failure nonischemic cardiomyopathy baseline ejection fraction 40% Acute COPD exacerbation Atrial fibrillation Advanced rheumatoid arthritis Plan: Replace potassium Gentle rehydration T new broad-spectrum antibiotics Continue breathing treatments Super therapeutic INR Coumadin is on hold Time with Patient: Greater than 30
--- NOTE | 2019-07-31 13:29 | P.PN ---
Subjective Progress Note Date: 07/31/19 This is a pleasant 74-year-old female with history of aortic valve rep lacement with bioprosthetic aortic valve as well as mitral valve repair in October 2017 , paroxysmal atrial fibrillation, atrial flutter, typical, iron deficiency anemia, rheumatoid arthritis, nonischemic cardiomyopathy and Echocardiogram with Doppler study performed in October 2017 revealed an ejection fraction of 40-45% normally functioning bioprosthetic valve trace of MR. Patient did have a cardiac catheterization prior to her valve surgery which revealed normal coronary arteries. The patient also has previous history of SVT, hypothyroidism, diverticular disease, kidney stones. She presented to the hospital yesterday because of fever and on examination she appears to be quite short of breath. He had increase in lower extremity edema also. She denied having any cough. She had no chest pain. She had mild sore throat and her blood work showed a white cell count of 12.6. With a proBNP level of 4730. Her renal function was stable and normal with a creatinine of 0.5. Electrodes were all within normal limits. Was a screen was negative. UA showed some RBCs without any significant white cells. The chest x-ray showed cardiomegaly. Changes consistent with post thoracotomy. There was pulmonary vessel congestion and a left-sided pleural effusion. The findings were slightly worse when compared to the older chest x-rays from 2018. Was admitted to the hospital. She was started on Rocephin and Zithromax. She was started on IV Lasix 40 mg every 12 hours. She is also on IV Solu-Medrol. Coumadin was resumed as the patient is on long-term articulation with warfarin. INR is at 2.9. Her cardiac rhythm is sinus for now with a first-degree AV block. She is on a combination of metoprolol and Rythmol. On today's evaluation of 07/30/2019, I'm seeing this patient for a follow-up. The patient is being treated for CHF exacerbation. Note that a CAT scan of the chest was done that showed cardiomegaly and there are changes to suggest underlying pulmonary arterial hypertension. There was a stable right basilar scar/atelectasis and a small left-sided pleural effusion fluid collection on the left which is somewhat loculated. The patient has a large pulmonary arteries. Currently, the patient is on a combination of DuoNeb nebulized treatments around the clock. She is on Lasix 40 mg IV every 12 hours. She is on Symbicort. Antibiotic coverage is on Zithromax and Omnicef. She is also on IV Solu Medrol 40 mg every 8 hours. INR is up to 6.1. The lactic acid level is down to 1.9. On 07/31/2019 the patient is feeling well. No specific complaints. No fever chills or night sweats. Urine culture came back positive for Morganella morganii. ID is on the case and making appropriate adjustments. Currently on IV Lasix 40 mg every 12 hours. No chest pain. Nausea significant shortness of breath. White cell count is 11.2. INR is 1.7 Objective - Vital Signs Vital signs: Vital Signs Temp 97.0 F L 07/31/19 13:00 Pulse 91 07/31/19 13:00 Resp 17 07/31/19 13:00 BP 121/59 07/31/19 13:00 Pulse Ox 96 07/31/19 13:00 Intake & Output 07/30/19 07/31/19 07/31/19 18:59 06:59 18:59 Intake Total 1350 490 Balance 1350 490 Weight 52.844 kg Intake: Intake, IV Titration 900 490 Amount Azithromycin 500 mg In 250 Sodium Chloride 0.9% 250 ml @ 250 mls/hr IVPB DAILY [facility] Rx#:[id number] Sodium Chloride 0.9% 1, 300 240 000 ml @ 50 mls/hr IV . Q20H [facility] Rx#:[id number] Vancomycin 1,000 mg In 250 250 Sodium Chloride 0.9% 250 ml @ 125 mls/hr IVPB Q12H [facility] Rx#:[id number] cefTRIAXone 1 gm In 100 Sodium Chloride 0.9% 50 ml @ 100 mls/hr IVPB Q24HR [facility] Rx#:[id number] Oral 450 Other: Voiding Method Bedside Commode Bedside Commode Bedside Commode Diaper Incontinent Incontinent Incontinent # Voids 3 2 # Bowel Movements 1 - Exam In appearance, comfortable thin and frail elderly female patient nonacute distress Head exam was generally normal. There was no scleral icterus or corneal arcus. Mucous membranes were moist. Neck was supple and without jugular venous distension, thyromegaly, or carotid bruits. Carotids were easily palpable bilaterally. There was no adenopathy. Lungs sounds are diminished in the bilateral crackles in lung bases bilaterally. Breath sounds are diminished in the left lung base along with some dullness to percussion. Cardiac exam revealed the PMI to be normally situated and sized. The rhythm was regular and no extrasystoles were noted during several minutes of auscultation. The first and second heart sounds were normal and physiologic splitting of the second heart sound was noted. There is a systolic ejection murmur grade 3/60 throughout the precordium is mainly in the left lateral sternal border and apex. The sternal wound is dry clean and intact Abdominal exam revealed normal bowel sounds. The abdomen was soft, non-tender, and without masses, organomegaly, or appreciable enlargement of the abdominal aorta. Extremities show deformity related to rheumatoid arthritis. There is some edema in lower extremity is bilaterally, trace and there is no cyanosis or clubbing. Neurologically awake and alert 3 and there is no focal neurological deficit. Examination of the skin revealed no evidence of significant rashes, suspicious appearing nevi or other concerning lesions. - Labs CBC & Chem 7: 07/31/19 06:57 07/31/19 06:57 Labs: Abnormal Lab Results - Last 24 Hours (Table) 07/31/19 07/31/19 07/31/19 Range/Units 06:57 06:57 06:57 WBC 11.2 H (3.8-10.6) k/uL RDW 18.4 H (11.5-15.5) % Neutrophils # 9.9 H (1.3-7.7) k/uL Lymphocytes # 0.7 L (1.0-4.8) k/uL PT 16.5 H (9.0-12.0) sec INR 1.7 H (<1.2) Potassium 3.3 L (3.5-5.1) mmol/L Carbon Dioxide 32 H (22-30) mmol/L BUN 26 H (7-17) mg/dL Glucose 158 H (74-99) mg/dL AST 49 H (14-36) U/L ALT 65 H (9-52) U/L Albumin 3.3 L (3.5-5.0) g/dL Microbiology - Last 24 Hours (Table) 07/28/19 16:08 Urine Culture - Final Urine,Clean Catch Morganella morganii 07/28/19 15:39 Blood Culture - Preliminary Blood No Growth after 48 hours Assessment and Plan Plan: 1 chronic dyspnea with some acute decompensation of her breathing and worsening shortness of breath. Consider acute CHF versus an acute bronchitis putting this patient into worsening heart failure. Nevertheless, the chest x-ray shows chronic findings including cardiomegaly and some possible effusion on the left. The computed tomography scan of the chest showed a loculated left-sided pleural effusion, small along with cardiomegaly and pulmonary arterial hypertension. 2 history of valvular heart disease with previous aortic valve replacement and mitral valve repair, the patient has a bioprosthetic aortic valve 3 CHF with mild systolic heart failure and ejection fraction of 45% 4 paroxysmal atrial fibrillation/flutter current rhythm is sinus maintained on long-term articulation with warfarin with a therapeutic PT/INR 5 COPD maintained on Advair and Proventil rescue inhaler less than basis 6 hypothyroidism 7 hypothyroidism 8 diverticular disease PLAN The patient is looking better. Continue diuretics and antibiotics. Pulmonary and critical care services we'll sign off the case and we'll leave the rest of the management up to medicine. Patient is currently on anticoagulation with warfarin dose being adjusted by medicine.
--- NOTE | 2019-07-31 14:09 | P.PN ---
Subjective Progress Note Date: 07/31/19 Principal diagnosis: Shortness of breath This is a very pleasant 74-year-old female patient who sees Dr. Flores in the office on regular basis with a past medical history significant for valvular heart disease where the patient underwent in the past aortic valve replacement using bioprosthetic aortic valve as well as mitral valve repair, paroxysmal atrial fibrillation, chronic obstructive pulmonary disease, as well as hypertension and dyslipidemia, was admitted to the hospital with possible pneumonia. The patient was not feeling well for the last few days where she was experiencing generalized weakness as well as fever. She was seen by her primary care physician where she was noticed to have a temperature. At that point pneumonia was suspected and the patient was sent to the hospital. The patient somewhat is a poor historian but she denies any symptoms of increasing shortness of breath. Denies any increasing in the lower extremities edema. Denies any symptoms of chest pain or chest discomfort. No dizziness or lightheadedness or syncope. The chest x-ray showed left pleural effusion. The computed tomography scan of the chest showed loculated left pleural effusion. The BNP came in to be at 3700. The WBC was slightly elevated. Currently the patient is on antibiotic for possible underlying pneumonia and also she is on Lasix IV for component of congestive heart failure. The patient was seen today, July [id number]. She is feeling overall better. She stated that the shortness of breath is better. No symptoms of chest pain or chest discomfort. On examination she still have few bilateral rhonchi in both lung bases and no lower extremities edema noted. Currently she is on Lasix IV. The creatinine continues to be stable. I would suggest giving the patient on IV Lasix for additional 24 hours and continue monitor the kidney function and electrolytes. Objective - Vital Signs Vital signs: Vital Signs Temp 97.0 F L 07/31/19 13:00 Pulse 91 07/31/19 13:00 Resp 17 07/31/19 13:00 BP 121/59 07/31/19 13:00 Pulse Ox 96 07/31/19 13:00 Intake & Output 07/30/19 07/31/19 07/31/19 18:59 06:59 18:59 Intake Total 1350 490 Balance 1350 490 Weight 52.844 kg Intake: Intake, IV Titration 900 490 Amount Azithromycin 500 mg In 250 Sodium Chloride 0.9% 250 ml @ 250 mls/hr IVPB DAILY [facility] Rx#:[id number] Sodium Chloride 0.9% 1, 300 240 000 ml @ 50 mls/hr IV . Q20H [facility] Rx#:[id number] Vancomycin 1,000 mg In 250 250 Sodium Chloride 0.9% 250 ml @ 125 mls/hr IVPB Q12H [facility] Rx#:[id number] cefTRIAXone 1 gm In 100 Sodium Chloride 0.9% 50 ml @ 100 mls/hr IVPB Q24HR [facility] Rx#:[id number] Oral 450 Other: Voiding Method Bedside Commode Bedside Commode Bedside Commode Diaper Incontinent Incontinent Incontinent # Voids 3 2 # Bowel Movements 1 - Constitutional General appearance: Present: no acute distress - Respiratory Respiratory: bilateral: rales - Cardiovascular Rhythm: regular Heart sounds: normal: S1, S2 Abnormal Heart Sounds: Present: systolic murmur - Labs CBC & Chem 7: 07/31/19 06:57 07/31/19 06:57 Labs: Abnormal Lab Results - Last 24 Hours (Table) 07/31/19 07/31/19 07/31/19 Range/Units 06:57 06:57 06:57 WBC 11.2 H (3.8-10.6) k/uL RDW 18.4 H (11.5-15.5) % Neutrophils # 9.9 H (1.3-7.7) k/uL Lymphocytes # 0.7 L (1.0-4.8) k/uL PT 16.5 H (9.0-12.0) sec INR 1.7 H (<1.2) Potassium 3.3 L (3.5-5.1) mmol/L Carbon Dioxide 32 H (22-30) mmol/L BUN 26 H (7-17) mg/dL Glucose 158 H (74-99) mg/dL AST 49 H (14-36) U/L ALT 65 H (9-52) U/L Albumin 3.3 L (3.5-5.0) g/dL Microbiology - Last 24 Hours (Table) 07/28/19 16:08 Urine Culture - Final Urine,Clean Catch Morganella morganii 07/28/19 15:39 Blood Culture - Preliminary Blood No Growth after 48 hours Assessment and Plan Assessment: Assessment #1 dyspnea multifocal for renal and related to pneumonia as well as heart failure #2 probably mild component of congestive heart failure exacerbation related to systolic dysfunction. The last echocardiogram in 2018 revealed an ejection fraction between 40-45%. #3 paroxysmal atrial fibrillation #4 status post aortic valve replacement and mitral valve repair Plan #1 currently the patient is on antibiotic for the pneumonia #2 continue the current dose of Lasix IV #3 continue monitoring the kidney function and electrolytes #4 follow-up with the patient Thank you for allowing us participate in the care of the patient.
[2019-07-31] MEDS ORDERED: WARFARIN 2.5 MG TAB PO ONE (18:00)
[2019-07-31] MEDS ORDERED: VANCOMYCIN TROUGH DUE 1 EACH MISC MISCELLANE ONE (18:00)
[2019-07-31] MEDS: SYMBICORT 160-4.5 MCG INHALER INHALATION SCH (19:50)
[2019-08-01] MEDS: LEVOTHYROXINE 100 MCG TAB PO SCH (06:13)
[2019-08-01] MEDS: VANCOMYCIN 1,250 MG in SODIUM CHLORIDE 0.9% 250 ML IVPB SCH ×2 (06:16→19:27)
[2019-08-01] MEDS: IPRATROPIUM-ALBUTEROL 3 ML NEB INHALATION SCH ×4 (07:15→20:09)
[2019-08-01] MEDS: SYMBICORT 160-4.5 MCG INHALER INHALATION SCH ×2 (07:15→20:09)
[2019-08-01] MEDS: AZITHROMYCIN 500 MG TAB PO SCH (07:27)
[2019-08-01] MEDS: FERROUS SULFATE 325 MG TAB PO SCH (07:27)
[2019-08-01] MEDS: PROPAFENONE 150 MG TAB PO SCH ×3 (07:27→21:46)
[2019-08-01] MEDS: FAMOTIDINE 20 MG TAB PO SCH (07:27)
[2019-08-01] MEDS: CEFDINIR 300 MG CAP PO SCH ×2 (07:27→21:46)
[2019-08-01] MEDS: FUROSEMIDE 10 MG/ML 4 ML VIAL IV SCH (07:28)
[2019-08-01] MEDS: methylPREDNISolone SOD SUCCI 40 MG/ML 1 ML VIAL IV SCH ×2 (07:28→15:22)
[2019-08-01] MEDS: METOPROLOL TARTRATE 25 MG TAB PO SCH ×2 (07:28→21:47)
[2019-08-01 07:47] LABS: INR 1.3 (<1.2); Prothrombin Time 13.1 sec (9.0-12.0)
[2019-08-01 07:58] LABS: Albumin 3.6 g/dL (3.5-5.0); Calcium 9.1 mg/dL (8.4-10.2); Potassium 4.4 mmol/L (3.5-5.1); Total Protein 6.8 g/dL (6.3-8.2)
[2019-08-01 08:04] LABS: Anisocytosis Slight; Basophils % (A) 0 %; Eosinophils % (A) 0 %; HCT 38.4 % (34.0-46.0); HGB 12.4 gm/dL (11.4-16.0); Hypochromasia Slight; Lymphocytes # (A) 0.8 k/uL (1.0-4.8); Lymphocytes % (A) 8 %; MCHC 32.2 g/dL (31.0-37.0); MCV 83.7 fL (80.0-100.0); Mean Platelet Volume 6.3; Monocytes # (A) 0.4 k/uL (0-1.0); Monocytes % (A) 4 %; Neutrophils # (A) 8.3 k/uL (1.3-7.7); Neutrophils % (A) 86 %; Platelet Count 287 k/uL (150-450); RBC 4.59 m/uL (3.80-5.40); RDW 17.9 % (11.5-15.5); WBC 9.7 k/uL (3.8-10.6)
--- NOTE | 2019-08-01 10:34 | P.PN ---
Subjective Progress Note Date: 08/01/19 Principal diagnosis: Sepsis, pneumonia, chronic congestive heart failure acute on chronic systolic heart failure, COPD exacerbation, atrial fibrillation, rheumatoid arthritis, ejection fraction of 40% with non-ischemic cardiomyopathy 08/01/2019, patient seen eval examined during the rounds labs reviewed medications reviewed shortness of breath continued to improve denies any cough or chest pain but remains on antibiotics, if remains stable possibly discharge in next 24 hours 07/31/2019, patient sitting upright on the bed breathing is still heavily still evident intermittent cough and shortness of breath patient has been on broad- spectrum antibiotics, white cell count is coming down, her lactic acid is normalized, potassium is low has been on potassium replacement protocol Objective - Vital Signs Vital signs: Vital Signs Temp 97.6 F 08/01/19 05:00 Pulse 82 08/01/19 07:25 Resp 18 08/01/19 08:00 BP 117/63 08/01/19 05:00 Pulse Ox 95 08/01/19 05:00 Intake & Output 07/31/19 08/01/19 08/01/19 18:59 06:59 18:59 Intake Total 1400 250 Balance 1400 250 Weight 64.552 kg Intake: Intake, IV Titration 250 250 Amount Vancomycin 1,000 mg In 250 250 Sodium Chloride 0.9% 250 ml @ 125 mls/hr IVPB Q12H [facility] Rx#:[id number] Oral 1150 Other: Voiding Method Bedside Commode Bedside Commode Bedside Commode Incontinent Incontinent Diaper # Voids 4 2 # Bowel Movements 1 - Exam In general patient is alert and oriented 3 in no apparent distress HEENT head normocephalic and atraumatic Neck is supple no JVD no goiter no lymphadenopathy no carotid bruit Chest exam reveals a few scattered crackles bilaterally no wheezing Cardiac exam reveals irregular heart sounds S1 and S2 no gallops no murmurs Abdomen is soft nontender no organomegaly with normal bowel sounds Extremity exam reveals no edema no cyanosis or clubbing Neurological examination reveals no gross focal deficit - Labs CBC & Chem 7: 08/01/19 07:00 08/01/19 07:00 Labs: Abnormal Lab Results - Last 24 Hours (Table) 08/01/19 08/01/19 08/01/19 Range/Units 07:00 07:00 07:00 RDW 17.9 H (11.5-15.5) % Neutrophils # 8.3 H (1.3-7.7) k/uL Lymphocytes # 0.8 L (1.0-4.8) k/uL PT 13.1 H (9.0-12.0) sec INR 1.3 H (<1.2) BUN 31 H (7-17) mg/dL Glucose 147 H (74-99) mg/dL AST 56 H (14-36) U/L ALT 92 H (9-52) U/L Microbiology - Last 24 Hours (Table) 07/28/19 15:39 Blood Culture - Preliminary Blood No Growth after 72 hours Assessment and Plan Assessment: Sepsis Pneumonia possibly right lower lobe Acute on chronic systolic heart failure nonischemic cardiomyopathy baseline ejection fraction 40% Acute COPD exacerbation Atrial fibrillation Advanced rheumatoid arthritis Plan: Replace potassium Gentle rehydration T new broad-spectrum antibiotics Continue breathing treatments Super therapeutic INR Coumadin is on hold, patient can be resumed on Coumadin, a nd can be changed to prednisone at the time of discharge Time with Patient: Greater than 30
--- NOTE | 2019-08-01 13:02 | P.PN ---
Subjective Progress Note Date: 08/01/19 Principal diagnosis: Shortness of breath This is a very pleasant 74-year-old female patient who sees Dr. Flores in the office on regular basis with a past medical history significant for valvular heart disease where the patient underwent in the past aortic valve replacement using bioprosthetic aortic valve as well as mitral valve repair, paroxysmal atrial fibrillation, chronic obstructive pulmonary disease, as well as hypertension and dyslipidemia, was admitted to the hospital with possible pneumonia. The patient was not feeling well for the last few days where she was experiencing generalized weakness as well as fever. She was seen by her primary care physician where she was noticed to have a temperature. At that point pneumonia was suspected and the patient was sent to the hospital. The patient somewhat is a poor historian but she denies any symptoms of increasing shortness of breath. Denies any increasing in the lower extremities edema. Denies any symptoms of chest pain or chest discomfort. No dizziness or lightheadedness or syncope. The chest x-ray showed left pleural effusion. The computed tomography scan of the chest showed loculated left pleural effusion. The BNP came in to be at 3700. The WBC was slightly elevated. Currently the patient is on antibiotic for possible underlying pneumonia and also she is on Lasix IV for component of congestive heart failure. The patient was seen today, August 01. She is feeling overall better. She stated that the shortness of breath is better. No symptoms of chest pain or chest discomfort. On examination she still have few bilateral rhonchi in both lung bases and no lower extremities edema noted. Currently she is on Lasix IV. The creatinine continues to be stable. She wants to go home. I will stop the Lasix IV and start Lasix PO. Objective - Vital Signs Vital signs: Vital Signs Temp 97.0 F L 08/01/19 11:10 Pulse 88 08/01/19 11:32 Resp 16 08/01/19 11:10 BP 96/51 08/01/19 11:10 Pulse Ox 93 L 08/01/19 11:10 Intake & Output 07/31/19 08/01/19 08/01/19 18:59 06:59 18:59 Intake Total 1400 250 Balance 1400 250 Weight 64.552 kg Intake: Intake, IV Titration 250 250 Amount Vancomycin 1,000 mg In 250 250 Sodium Chloride 0.9% 250 ml @ 125 mls/hr IVPB Q12H [facility] Rx#:[id number] Oral 1150 Other: Voiding Method Bedside Commode Bedside Commode Bedside Commode Incontinent Incontinent Diaper # Voids 4 2 4 # Bowel Movements 1 - Constitutional General appearance: Present: no acute distress - Respiratory Respiratory: bilateral: rales - Cardiovascular Rhythm: regular Heart sounds: normal: S1, S2 Abnormal Heart Sounds: Present: systolic murmur - Labs CBC & Chem 7: 08/01/19 07:00 08/01/19 07:00 Labs: Abnormal Lab Results - Last 24 Hours (Table) 08/01/19 08/01/19 08/01/19 Range/Units 07:00 07:00 07:00 RDW 17.9 H (11.5-15.5) % Neutrophils # 8.3 H (1.3-7.7) k/uL Lymphocytes # 0.8 L (1.0-4.8) k/uL PT 13.1 H (9.0-12.0) sec INR 1.3 H (<1.2) BUN 31 H (7-17) mg/dL Glucose 147 H (74-99) mg/dL AST 56 H (14-36) U/L ALT 92 H (9-52) U/L Microbiology - Last 24 Hours (Table) 07/28/19 15:39 Blood Culture - Preliminary Blood No Growth after 72 hours Assessment and Plan Assessment: Assessment #1 dyspnea multifocal for renal and related to pneumonia as well as heart failure #2 probably mild component of congestive heart failure exacerbation related to systolic dysfunction. The last echocardiogram in 2018 revealed an ejection fraction between 40-45%. #3 paroxysmal atrial fibrillation #4 status post aortic valve replacement and mitral valve repair Plan #1 currently the patient is on antibiotic for the pneumonia #2 stop Lasix IV and start Lasix PO #3 continue monitoring the kidney function and electrolytes #4 She can be d/c home. Thank you for allowing us participate in the care of the patient.
[2019-08-01] MEDS: FUROSEMIDE 40 MG TAB PO SCH (15:22)
[2019-08-01] MEDS ORDERED: WARFARIN 2.5 MG TAB PO SCH (18:00)
[2019-08-01] MEDS ORDERED: WARFARIN 3 MG TAB PO ONE (18:00)
[2019-08-01 21:21] VITALS: RESP 18
[2019-08-02] MEDS: methylPREDNISolone SOD SUCCI 40 MG/ML 1 ML VIAL IV SCH ×2 (00:37→08:06)
[2019-08-02 05:13] VITALS: BP 120/64; TEMP 98.2
[2019-08-02] MEDS: LEVOTHYROXINE 100 MCG TAB PO SCH (06:18)
[2019-08-02] MEDS: VANCOMYCIN 1,250 MG in SODIUM CHLORIDE 0.9% 250 ML IVPB SCH (06:19)
[2019-08-02 07:40] LABS: INR 1.9 (<1.2); Prothrombin Time 19.1 sec (9.0-12.0)
[2019-08-02] MEDS: SYMBICORT 160-4.5 MCG INHALER INHALATION SCH (07:41)
[2019-08-02] MEDS: IPRATROPIUM-ALBUTEROL 3 ML NEB INHALATION SCH ×2 (07:41→11:26)
[2019-08-02 07:45] LABS: ALT 88 U/L (9-52); AST 44 U/L (14-36); African American GFR (CKD) >90 (>60 ml/min/1.73 sqM); Albumin 3.5 g/dL (3.5-5.0); Alkaline Phosphatase 105 U/L (38-126); Anion Gap 11 mmol/L; Blood Urea Nitrogen 30 mg/dL (7-17); Carbon Dioxide 28 mmol/L (22-30); Chloride 100 mmol/L (98-107); Glucose 148 mg/dL (74-99); Non-African American GFR(CKD) 87 (>60 ml/min/1.73 sqM); Potassium 3.9 mmol/L (3.5-5.1); Sodium 139 mmol/L (137-145); Total Bilirubin 0.9 mg/dL (0.2-1.3); Total Protein 6.7 g/dL (6.3-8.2)
[2019-08-02] MEDS: FUROSEMIDE 40 MG TAB PO SCH (08:07)
[2019-08-02] MEDS: METOPROLOL TARTRATE 25 MG TAB PO SCH (08:07)
[2019-08-02] MEDS: CEFDINIR 300 MG CAP PO SCH (08:07)
[2019-08-02] MEDS: FERROUS SULFATE 325 MG TAB PO SCH (08:07)
[2019-08-02] MEDS: FAMOTIDINE 20 MG TAB PO SCH (08:07)
[2019-08-02] MEDS: PROPAFENONE 150 MG TAB PO SCH (08:07)
[2019-08-02] MEDS: AZITHROMYCIN 500 MG TAB PO SCH (08:07)
[2019-08-02 09:36] LABS: Anisocytosis Slight; Basophils % (A) 0 %; Eosinophils % (A) 0 %; HCT 39.4 % (34.0-46.0); HGB 12.1 gm/dL (11.4-16.0); Hypochromasia Slight; Lymphocytes # (A) 0.5 k/uL (1.0-4.8); Lymphocytes % (A) 6 %; MCH 26.2 pg (25.0-35.0); MCHC 30.7 g/dL (31.0-37.0); MCV 85.4 fL (80.0-100.0); Mean Platelet Volume 6.9; Monocytes # (A) 0.4 k/uL (0-1.0); Monocytes % (A) 4 %; Neutrophils # (A) 7.2 k/uL (1.3-7.7); Neutrophils % (A) 88 %; Platelet Count 245 k/uL (150-450); RBC 4.61 m/uL (3.80-5.40); RDW 18.2 % (11.5-15.5); WBC 8.2 k/uL (3.8-10.6)
--- NOTE | 2019-08-02 10:17 | ECHOF ---
Referral Reason:CHF MEASUREMENTS -------- HEIGHT: 152.4 cm WEIGHT: 52.6 kg BP: 100/52 RVIDd: 4.0 cm (< 3.3) IVSd: 1.1 cm (0.6 - 1.1) LVIDd: 4.1 cm (3.9 - 5.3) LVPWd: 1.0 cm (0.6 - 1.1) IVSs: 1.3 cm LVIDs: 3.0 cm LVPWs: 1.3 cm LAESV Index (A-L): 54.40 ml/m Ao Diam: 1.9 cm (2.0 - 3.7) AV Cusp: 1.5 cm (1.5 - 2.6) AV maxP.04 mmHg AV meanP.03 mmHg RAP: 5.00 mmHg RVSP: 47.57 mmHg FINDINGS -------- Sinus rhythm. This was a technically adequate study. The left ventricular size is normal. There is borderline concentric left ventricular hypertrophy. Overall left ventricular systolic function is low-normal with, an EF between 50 - 55 %. Increased Lap Grade II Diastolic Dysfunction. Septal wall motion is delayed and consistent with prior cardiac surgery. The right ventricle is moderately enlarged. LA is severely dilated >40 ml/m2 The right atrium is mildly enlarged. Interatrial and interventricular septum intact. Peak/mean gradient across the Aortic Valve is 27.04mmHg / 17.03mmHg. Normally functioning bioprosth etic valve. Mild mitral annular calcification present. [id number] mitral regurgitation is present. Mild mitral stenosis , with a MVA of 2.6cm (by PHT) Mitral ring annulloplasty is in place. Moderate tricuspid regurgitation present. There is moderate pulmonary hypertension. The right dhruv tricular systolic pressure, as measured by Doppler, is 47.57mmHg. Trace/mild (physiologic) pulmonic regurgitation. The aortic root size is normal. Normal inferior vena cava with normal inspiratory collapse consistent with estimated right atrial pre ssure of 5 mmHg. There is no pericardial effusion. CONCLUSIONS -------- 1. Sinus rhythm. 2. This was a technically adequate study. 3. The left ventricular size is normal. 4. There is borderline concentric left ventricular hypertrophy. 5. Overall left ventricular systolic function is low-normal with, an EF between 50 - 55 %. 6. Increased Lap Grade II Diastolic Dysfunction. 7. Septal wall motion is delayed and consistent with prior cardiac surgery. 8. The right ventricle is moderately enlarged. 9. LA is severely dilated >40 ml/m2 10. The right atrium is mildly enlarged. 11. Interatrial and interventricular septum intact. 12. Peak/mean gradient across the Aortic Valve is 27.04mmHg / 17.03mmHg. 13. Normally functioning bioprosthetic valve. 14. Mild mitral annular calcification present. 15. [id number] mitral regurgitation is present. 16. Mild mitral stenosis. 17. , with a MVA of 2.6cm (by PHT) 18. Mitral ring annulloplasty is in place. 19. Moderate tricuspid regurgitation present. 20. There is moderate pulmonary hypertension. 21. The right ventricular systolic pressure, as measured by Doppler, is 47.57mmHg. 22. Trace/mild (physiologic) pulmonic regurgitation. 23. The aortic root size is normal. 24. Normal inferior vena cava with normal inspiratory collapse consistent with estimated right atrial pressure of 5 mmHg. 25. There is no pericardial effusion. [employer]: Maren Meade RDCS
[2019-08-02 11:29] VITALS: PULSE 84
--- NOTE | 2019-08-02 15:22 | P.DS ---
Providers Date of admission: 07/28/19 16:57 Expected date of discharge: 08/02/19 Attending physician: Olya Olson Consults: 07/29/19 11:29 Consult Physician Routine Consulting Provider: Alexx Flores Consult Reason/Comments: CHF Do you want consulting provider notified?: Yes Consult Physician Routine Consulting Provider: Liv Peralta Consult Reason/Comments: febrile illness possible pneumonia Do you want consulting provider notified?: Yes 07/29/19 13:17 Consult Physician Routine Consulting Provider: Bailey Raygoza Consult Reason/Comments: fever Do you want consulting provider notified?: Yes Primary care physician: Olya Whitney [facility] Course: Discharge diagnosis #1 febrile illness with possible pneumonia patient was started on IV Rocephin and IV Zithromax, pulmonary consultation was requested, no clear infiltrate on chest x-ray. Chest CT completed showing cardiomegaly and underlying pulmonary hypertension with stable right basilar scarring and/or atelectasis there is a small left non-simple pleural fluid flexion effusion with associated left lower lobe infiltrate and or atelectasis. Patient has been cleared by pulmonary se rvices for discharge. Patient will be discharged on Omnicef and azithromycin per ID recommendation. #2 sepsis as evidenced by leukocytosis, tachycardia, elevated temperature, and elevated lactic acid at 2.6. Lactic acid improving to 1.9. Blood culture negative. Urine culture growing Morganella Morganii. Infectious disease aware patient discharged on Omnicef and azithromycin #3 acute on chronic systolic congestive heart failure, with elevated BNP at 4730, and evidence of pulmonary congestion on chest x-ray, and left sided pleural effusion. Cardiology services have been consulted. Patient maintained on IV Lasix #4. COPD exacerbation. Pulmonary services are following. Patient started on Solu-Medrol. Patient will be DC'd on prednisone taper #5 underlying history of atrial fibrillation maintained on Coumadin INR therapeutic. Coumadin currently on hold due to elevated INR. INR 1.9 resume home Coumadin dose #6 underlying history of valvular heart disease with history of aortic valve replacement with bioprosthetic valve and history of mitral valve repair in October 2017 #7 underlying history of rheumatoid arthritis #8 underlying history of nonischemic cardiomyopathy ejection fraction 40-45%, cardiac catheterization revealed normal coronary artery disease in October 2017 #9 Supratherapeutic INR. INR 6.1. Vitamin K has been ordered Coumadin on hold. Resolved. Patient will be DC'd on home Coumadin dose Hospital course Mirella San, he is a 74-year-old female well known to my practice who presented to the office on 07/28/2019 complaining of fever and severe weakness, patient was complaining of mild sore throat and cough, urine analysis in the office was negative for any sign of infection, temperature in the office was 102.5 no clear source of infection, pneumonia was suspected and patient was sent to [facility] emergency room. She was evaluated in the emergency room, chest x-ray revealed evidence of pulmonary congestion and left sided pleural effusion without clear evidence of pneumonia, blood culture and urine culture were obtained, she was started on IV antibiotic Rocephin and Zithromax, and was admitted to medical floor pulmonary consultation was requested. White blood count was elevated at 11.4 and lactic acid was elevated at 2.6 influenza testing was negative. INR was in therapeutic range. Patient has a known history of valvular heart disease with history of aortic valve replacement with bioprosthetic aortic valve in October 2017 she also underwent mitral valve repair at that time. She has known history of atrial fibrillation and history of rheumatoid arthritis. Patient has also history of nonischemic cardiomyopathy. On 07/30/2019 patient is alert and oriented 3. Patient's INR elevated this a.m. 6.1. Vitamin K has been ordered. Lactic acid improving. Patient remains on Rocephin and azithromycin. Pulmonary cardiology and infectious disease following. At this time patient denies chest pain. Patient still having some cough and shortness breath. Patient denies nausea vomiting or diarrhea. Patient denies any urinary burning or frequency. 07/31/2019, patient sitting upright on the bed breathing is still heavily still evident intermittent cough and shortness of breath patient has been on broad- spectrum antibiotics, white cell count is coming down, her lactic acid is normalized, potassium is low has been on potassium replacement protocol 08/01/2019, patient seen eval examined during the rounds labs reviewed medications reviewed shortness of breath continued to improve denies any cough or chest pain but remains on antibiotics, if remains stable possibly discharge in next 24 hours On 08/02/2019 patient is alert and oriented 3. Patient is very to go home. Patient has been cleared by both cardiology and pulmonary services. Antibiotics per infectious disease Omnicef and azithromycin. Patient denies chest pain or shortness breath. Patient denies nausea vomiting or diarrhea. Patient denies any urinary burning or frequency. INR 1.9. Patient will be resumed on home Coumadin dose I performed an examination of the patient and discussed their management with the Nurse Practitioner. I have reviewed the Nurse Practitioner's notes and agree with the documented findings and plan of care Patient Condition at Discharge: Stable Plan - Discharge Summary Discharge Rx Participant: No New Discharge Prescriptions: New Cefdinir [Omnicef] 300 mg PO BID #10 cap Azithromycin [Zithromax] 500 mg PO DAILY #5 tab predniSONE 10 mg PO DIRECTED 12 Days #30 tab Continue Fluticasone/Salmeterol [Advair Hfa 230-21 Mcg Inhaler] 1 puff INHALATION RT- BID HYDROcodone/APAP 10-325MG [[place] 10-325] 1 tab PO Q6H PRN PRN Reason: Pain ALPRAZolam [Xanax] 0.25 mg PO BID PRN PRN Reason: Anxiety Warfarin Sodium [Coumadin] 2.5 mg PO DAILY #30 tablet Metoprolol Tartrate [Lopressor] 25 mg PO BID Propafenone [Rythmol] 150 mg PO TID #90 tablet Ferrous Sulfate [Feosol] 325 mg PO DAILY #30 tab Levothyroxine Sodium [Levoxyl] 200 mcg PO DAILY Albuterol Sulfate [Proair Hfa] 2 puff INHALATION RT-Q4H PRN PRN Reason: Shortness Of Breath Furosemide [Lasix] 20 mg PO DAILY@1600 Furosemide [Lasix] 40 mg PO DAILY@0900 Discharge Medication List Fluticasone/Salmeterol [Advair Hfa 230-21 Mcg Inhaler] 1 puff INHALATION RT-BID 09/15/17 [History] ALPRAZolam [Xanax] 0.25 mg PO BID PRN 11/27/17 [History] HYDROcodone/APAP 10-325MG [[place] 10-325] 1 tab PO Q6H PRN 11/27/17 [History] Warfarin Sodium [Coumadin] 2.5 mg PO DAILY #30 tablet 12/01/17 [Rx] Metoprolol Tartrate [Lopressor] 25 mg PO BID 01/27/18 [History] Ferrous Sulfate [Feosol] 325 mg PO DAILY #30 tab 01/30/18 [Rx] Propafenone [Rythmol] 150 mg PO TID #90 tablet 01/30/18 [Rx] Albuterol Sulfate [Proair Hfa] 2 puff INHALATION RT-Q4H PRN 07/28/19 [History] Furosemide [Lasix] 20 mg PO DAILY@1600 07/28/19 [History] Furosemide [Lasix] 40 mg PO DAILY@0900 07/28/19 [History] Levothyroxine Sodium [Levoxyl] 200 mcg PO DAILY 07/28/19 [History] Azithromycin [Zithromax] 500 mg PO DAILY #5 tab 08/02/19 [Rx] Cefdinir [Omnicef] 300 mg PO BID #10 cap 08/02/19 [Rx] predniSONE 10 mg PO DIRECTED 12 Days #30 tab 08/02/19 [Rx] Follow up Appointment(s)/Referral(s): Olya Olson MD [Primary Care Provider] - 1-2 days Activity/Diet/Wound Care/Special Instructions: Activity as tolerated Diet heart healthy Discharge Disposition: HOME SELF-CARE
[2019-08-02] MEDS ORDERED: WARFARIN 2.5 MG TAB PO ONE (18:00)
[2019-08-03] MEDS ORDERED: VANCOMYCIN TROUGH DUE 1 EACH MISC MISCELLANE ONE (06:00)
== END 2019-08-02 16:00 | disposition home or self-care (01) | DRG 871 ==
LOC: EC 14:51 → 3NMEDONC 16:57
PROVIDERS: ADMIT Internal Medicine; ATTEND Internal Medicine
DX: A41.9 Sepsis, unspecified organism (principal); I50.23 Acute on chronic systolic (congestive) heart failure; J18.9 Pneumonia, unspecified organism; J96.21 Acute and chronic respiratory failure with hypoxia; J44.0 Chronic obstructive pulmonary disease with (acute) lower respiratory infection; I42.8 Other cardiomyopathies; J44.1 Chronic obstructive pulmonary disease with (acute) exacerbation; J98.11 Atelectasis; E78.5 Hyperlipidemia, unspecified; I11.0 Hypertensive heart disease with heart failure; I25.10 Atherosclerotic heart disease of native coronary artery without angina pectoris; M06.9 Rheumatoid arthritis, unspecified; K21.9 Gastro-esophageal reflux disease without esophagitis; M19.90 Unspecified osteoarthritis, unspecified site; I48.0 Paroxysmal atrial fibrillation; R82.71 Bacteriuria; I27.21 Secondary pulmonary arterial hypertension; Z96.642 Presence of left artificial hip joint; K57.90 Diverticulosis of intestine, part unspecified, without perforation or abscess without bleeding; Z96.1 Presence of intraocular lens; Z96.653 Presence of artificial knee joint, bilateral; I44.0 Atrioventricular block, first degree; R79.1 Abnormal coagulation profile; E89.0 Postprocedural hypothyroidism; Z98.49 Cataract extraction status, unspecified eye; Z98.890 Other specified postprocedural states; Z98.1 Arthrodesis status; Z87.891 Personal history of nicotine dependence; Z95.3 Presence of xenogenic heart valve; Z82.49 Family history of ischemic heart disease and other diseases of the circulatory system; Z79.01 Long term (current) use of anticoagulants; Z79.51 Long term (current) use of inhaled steroids; Z79.899 Other long term (current) drug therapy; Z79.890 Hormone replacement therapy; Z88.8 Allergy status to other drugs, medicaments and biological substances; Z99.81 Dependence on supplemental oxygen; Z87.442 Personal history of urinary calculi; Z87.440 Personal history of urinary (tract) infections; Z87.19 Personal history of other diseases of the digestive system; Z86.2 Personal history of diseases of the blood and blood-forming organs and certain disorders involving the immune mechanism; Z95.1 Presence of aortocoronary bypass graft; Z90.710 Acquired absence of both cervix and uterus
CPT/HCPCS: 36415; 71046; 71250; 80053; 80202; 81001; 83605; 83880; 84132; 85025; 85610; 85730; 87040; 87077; 87086; 87186; 87502; 93005; 93306; 94640; 94760; 96361; 96374; 96375; 99285

== ENCOUNTER → 2020-02-28 | Outpatient (CLI) | payer MEDICARE, OTHER ==
--- NOTE | 2020-02-28 14:58 | US ---
EXAMINATION TYPE: US kidneys/renal and bladder DATE OF EXAM: 02/28/2020 COMPARISON: NONE CLINICAL HISTORY: 74-year-old female R10.9 Left flank pain. TECHNIQUE: Multiple sonographic images of the kidneys and bladder are obtained. FINDINGS: EXAM MEASUREMENTS: Right Kidney: 10.3 x 4.4 x 4.1 cm Left Kidney: 10.6 x 3.6 x 4.1 cm No hydronephrosis on either side. Bladder: Partial distention of the bladder limits its evaluation. Bilateral Jets not seen IMPRESSION: No hydronephrosis.
== END | disposition home or self-care (01) ==
LOC: RADUSWWP 13:37
PROVIDERS: ATTEND Internal Medicine
DX: R10.9 Unspecified abdominal pain (principal)
CPT/HCPCS: 76770

== ENCOUNTER → 2020-02-28 | Outpatient (CLI) | payer MEDICARE, OTHER ==
--- NOTE | 2020-02-28 14:57 | XR ---
EXAMINATION TYPE: XR chest 2V DATE OF EXAM: 02/28/2020 COMPARISON: 07/28/1990 TECHNIQUE: PA and lateral views submitted. HISTORY: Pain FINDINGS: Postsurgical change right shoulder arthropathy left shoulder with diffuse osteopenia. The heart is en larged. Postoperative change. Bibasilar consolidation with small left effusion. No pneumothorax or ov ert failure. Hypertrophic and degenerative change of the spine. IMPRESSION: 1. Bilateral consolidation and small left effusion. 2. Cardiomegaly
== END | disposition home or self-care (01) ==
LOC: RADXRMAIN 14:03
PROVIDERS: ATTEND Internal Medicine
DX: I51.7 Cardiomegaly (principal)
CPT/HCPCS: 71046

== ENCOUNTER → 2021-05-08 | Outpatient (CLI) | payer MEDICARE, OTHER ==
[2021-05-08 13:48] VITALS: BP 109/59; PULSE 76; RESP 18; TEMP 98.8
--- NOTE | 2021-05-08 17:45 | P.HPOB ---
History of Present Illness H&P Date: 05/08/21 Chief Complaint: Bilateral vulvar itching for about 4 months. This is a 75-year-old menopausal female who is status post TONY in the for benign reasons. The patient is here to establish with this office. She states that about 4 months ago she developed some vulvar itching. She believes there has been very slight whitish discharge with a slight odor. Because of the vulvar discomfort, she states that at times it is difficult to urinate. She denies dysuria. She has had yeast infections before and it does feel like she may have a yeast infection. Review of Systems The patient has lost 20 pounds over the last 1-1/2 years. Weight loss has been intentional. She denies respiratory, cardiac, or G.I. problems. Past Medical History Past Medical History: Atrial Fibrillation, Heart Failure, COPD, GERD/Reflux, Osteoarthritis (OA), Renal Disease, Rheumatoid Arthritis (RA), Supraventricular Tachycardia (SVT), Thyroid Disorder Additional Past Medical History / Comment(s): Valvular heart disease with previous aortic valve replacement and a mitral valve repair, congestion heart failure, Paroxysmal Afib, history of SVT, history of nonsustained VT, SOB with exertion, home O2 at 2L/NC usually prn but lately ATC, arthritis, RA several joints, current L elbow pain/swelling-had "injection", nephrolithiasis, hypothyroid, diverticular dx, UTI, iron deficiency anemia. PAST [employer] HISTORY: She has no history of STDs. History of Any Multi-Drug Resistant Organisms: None Reported Past Surgical History: Coronary Bypass/CABG, Heart Catheterization, Hysterectomy, Joint Replacement, Orthopedic Surgery Additional Past Surgical History / Comment(s): Geoff total knees arthroplasty,lt hip arthroplasty, goiter removed 1962, partial thyroidectomy, cataracts removed with lens implants, REVERSE TOTAL RIGHT SHOULDER; Rotator cuff R shoulder, cervical fusion/injections, colonoscopy 2017(next after 5yr), MATTHEW, valve surgery at [facility] 10/13/17 Prosthetic Aortic valve and mitral valve repair. Total abdominal hysterectomy in the . Past Anesthesia/Blood Transfusion Reactions: No Reported Reaction Past Psychological History: No Psychological Hx Reported Additional Psychological History / Comment(s): Pt resides with her spouse in an apartment with no stairs. She used to drive but not since valve surgery. Her spouse is helpful and able to drive her to appts. She has home oxygen. She uses a walker to ambulate and has a cane. She also has a scale and B/P monitor. She has used VMA in the recent past. Smoking Status: Former smoker Past Alcohol Use History: Occasional (3 per week) Additional Past Alcohol Use History / Comment(s): She used to drink 2 glasses of wine per week but hasn't for months, quit smoking @age of 43, smoked 1ppd for 30 yrs. Past Drug Use History: None Reported Additional History: She has been since 2005 and this is her second marriage. She is retired. - Past Family History Father Family Medical History: Cancer, Myocardial Infarction ([place]) Additional Family Medical History / Comment(s): in his 80's of a mi. Colon cancer. Mother Family Medical History: No Reported History Additional Family Medical History / Comment(s): age 88 in [facility] pt not sure what she from. hx smoking. Daughter(s) Family Medical History: Cancer Additional Family Medical History / Comment(s): from vulvar cancer. Medications and Allergies Home Medications Medication Instructions Recorded Confirmed Type Fluticasone/Salmeterol [Advair Hfa 1 puff INHALATION RT-BID 09/15/17 05/08/21 History 230-21 Mcg Inhaler] ALPRAZolam [Xanax] 0.25 mg PO BID PRN 11/27/17 05/08/21 History HYDROcodone/APAP 10-325MG [[place] 1 tab PO Q6H PRN 11/27/17 05/08/21 History 10-325] Warfarin Sodium [Coumadin] 2.5 mg PO DAILY #30 tablet 12/01/17 05/08/21 Rx Propafenone [Rythmol] 150 mg PO TID #90 tablet 01/30/18 05/08/21 Rx Albuterol Sulfate [Proair Hfa] 2 puff INHALATION RT-Q4H PRN 07/28/19 05/08/21 History Furosemide [Lasix] 20 mg PO DAILY@1600 07/28/19 05/08/21 History Levothyroxine Sodium [Levoxyl] 200 mcg PO DAILY 07/28/19 05/08/21 History Ascorbic Acid [Vitamin C] 500 mg PO DAILY 05/08/21 05/08/21 History Cholecalciferol [Vitamin D3 (25 25 mcg PO DAILY 05/08/21 05/08/21 History Mcg = 1000 Iu)] Ipratropium [place] [Atrovent Hfa] 2 puff INHALATION QID 05/08/21 05/08/21 History Allergies Allergy/AdvReac Type Severity Reaction Status Date / Time lisinopril Allergy Unknown Verified 05/08/21 13:22 Exam Vital Signs Temp Pulse Resp BP Pulse Ox 05/08/21 13:46 98.8 F 76 18 109/59 94 L Intake and Output 05/08/21 05/08/21 05/08/21 06:59 14:59 22:59 Other: Weight 49.895 kg Height 4 feet 8-1/2 inches, weight 110 pounds, BMI 24.2. This is a short statured, well-nourished white female. The patient is alert and oriented 3 in no acute distress. Abdomen: Soft, nontender, without palpable masses. External genitalia: There is moderate genital atrophy. Upon spreading the labia majora, generalized mild pallor is noted in the bilateral vulva, perineum and perianal areas. This is well demarcated with slight erythema as well. There are no focal lesions. There is no ulceration or excoriation. Vagina: There is mild to moderate atrophy with a minimal amount of slightly thicker grayish discharge without odor. The vagina does not appear inflamed. There is no evidence of vaginal prolapse. There are no vaginal lesions. Impression: 1. 75-year-old menopausal female who is status post TONY for benign reasons, with four-month history of vulvar pruritus with findings consistent with lichen sclerosus of the vulva, perineum and perianal areas. Differential diagnosis will also include Melinda vaginitis with vulvitis, atrophic vulvitis, and less likely bacterial vaginosis. 2. Multiple medical problems. Plan: 1. Affirm vaginitis panel was obtained from the vagina. 2. Temovate 0.1% ointment twice a day 2 weeks, then as needed. The electronic prescription will be sent to [facility] on . 3. She is overdue for screening mammogram and the order slip was given to the patient for this. 4. We have had a long discussion regarding lichen sclerosus of the vulva. The ACOG FAQ handout on vulvar irritation was given to the patient. A handout on lichen sclerosus of the vulva was also given to the patient. 5. She was instructed to avoid over washing with soap and avoid scratching. 6. She will return in 1 month for reevaluation. If symptoms are not significantly improving, we will consider vulvar biopsy to confirm the diagnosis. She was also advised to call if she is having any focal symptoms or lesions. 7. She will also return in one year for her well woman examination. Total time spent with the patient.
--- NOTE | 2021-05-15 17:55 | P.PN ---
Progress Note - Text Progress Note Date: 05/15/21 OUTPATIENT FOLLOW-UP NOTE TEST(S)/RESULTS: Affirm vaginitis panel done on 05/08/2021 was negative for karolyn, Gardnerella, and Trichomonas. METHOD OF NOTIFICATION: The patient was notified by phone. PATIENT COMMENTS: She just picked up the Temovate ointment and has not used it yet. DIAGNOSIS: Lichen sclerosus of the vulva with negative affirm vaginitis testing. DISCUSSION: The patient will use the Temovate ointment as directed. She will return in 1 month for recheck. She will call if questions or problems. PLAN: As above.
== END | disposition home or self-care (01) ==
LOC: WWCWWP 13:06
PROVIDERS: ATTEND Obstetrics & Gynecology
DX: Z53.9 Procedure and treatment not carried out, unspecified reason (principal)

== ENCOUNTER → 2021-06-19 | Outpatient (CLI) | payer MEDICARE, OTHER ==
[2021-06-19 16:24] VITALS: BP 120/86; RESP 18; TEMP 97.8
--- NOTE | 2021-06-19 16:54 | P.PN ---
Progress Note - Text Progress Note Date: 06/19/21 Chief Complaint: Recheck on vulvar lichen sclerosis. HPI: This is a 75-year-old 003 with an LMP in the 1980s. She is status post [facility] for benign reasons. The patient was seen on 05/08/2021 for bilateral vulvar pruritus which started 4 months prior to that visit. Her findings were consistent with vulvar lichen sclerosis. The affirm testing was negative for Melinda, Gardnerella, and Trichomonas. She was prescribed Temovate 0.05% ointment which she has been using twice daily. She says it has been helpful for the pruritus and does feel that it is improved. PE: Blood pressure: 120/86, Height: 4 feet 9 inches, Weight: 114 pounds, Temperature: 97.8, Pulse: 80. Pulse oximeter 100%. This is a short statured, well nourished, White female who is alert and orientedx3, in no acute distress. External genitalia: There is moderate genital atrophy. There is generalized mild pallor with mild erythema in a well demarcated area with a hour glass type distribution involving the vulva and perianal areas. There are no focal lesions and no ulceration or excoriation. Impression: 1. 75-year-old menopausal female with lichen sclerosus of the vulva symptomatically improved with Temovate ointment. Plan: 1. She was instructed to decrease the Temovate to every day at bedtime. She will use it once daily for 1 month, then go to once a week and as needed. 2. She was instructed to call for another appointment if she feels that her symptoms are worsening, if focal lesions, or problems. 3. If all is going well, she will return in 6 months for re-evaluation. Time spent with the patient: 20 minutes
== END | disposition home or self-care (01) ==
LOC: WWCWWP 15:47
PROVIDERS: ATTEND Obstetrics & Gynecology
DX: Z53.9 Procedure and treatment not carried out, unspecified reason (principal)

== ENCOUNTER 2021-11-30 20:19 | Emergency (ER) | payer MEDICARE, OTHER ==
[2021-11-30] MEDS ORDERED: ONDANSETRON 4 MG/2 ML VIAL IVP STA (21:58)
[2021-11-30] MEDS ORDERED: SODIUM CHLORIDE 0.9% 500 ML 500 ML IV STA (21:58)
--- NOTE | 2021-11-30 22:04 | ED ---
General Adult HPI - General Source: patient Mode of arrival: wheelchair <Damion Luna - Last Filed: 11/30/21 22:02> - History of Present Illness Onset/Timin -: days(s) Severity scale (1-10): 0 Consistency: constant Improves with: none Worsens with: none Associated Symptoms: cough, fever/chills, loss of appetite Treatments Prior to Arrival: none <Bradley Hartman - Last Filed: 12/01/21 09:20> - General Chief complaint: Nausea/Vomiting/Diarrhea Stated complaint: Diarrhea,Nausea - History of Present Illness Initial comments: Focused HPI physical examination: Patient presents with generalized weakness, nausea, and diarrhea for one day. Low-grade fever. Chest pain or shortness of breath. Focused physical examination: HEENT is unremarkable. Cardiopulmonary examination is benign, regular rate and rhythm, lungs are clear Abdomensoft Neurological, patient is alert and oriented, cranial nerves II through XII grossly intact Gen. appearancenontoxic Vital signs reviewed Planseptic workup and reevaluation in the main ED (Damion Luna) - Related Data Home Medications Medication Instructions Recorded Confirmed Fluticasone/Salmeterol [Advair Hfa 1 puff INHALATION RT-BID 09/15/17 06/19/21 230-21 Mcg Inhaler] ALPRAZolam [Xanax] 0.25 mg PO BID PRN 11/27/17 06/19/21 HYDROcodone/APAP 10-325MG [[place] 1 tab PO Q6H PRN 11/27/17 06/19/21 10-325] Albuterol Sulfate [Proair Hfa] 2 puff INHALATION RT-Q4H PRN 07/28/19 06/19/21 Furosemide [Lasix] 20 mg PO DAILY@1600 07/28/19 06/19/21 Levothyroxine Sodium [Levoxyl] 200 mcg PO DAILY 07/28/19 06/19/21 Ascorbic Acid [Vitamin C] 500 mg PO DAILY 05/08/21 06/19/21 Cholecalciferol [Vitamin D3 (25 25 mcg PO DAILY 05/08/21 06/19/21 Mcg = 1000 Iu)] Ipratropium [place] [Atrovent Hfa] 2 puff INHALATION QID 05/08/21 06/19/21 Warfarin Sodium 2 mg PO DAILY 06/19/21 06/19/21 Previous Rx's Medication Instructions Recorded Propafenone [Rythmol] 150 mg PO TID #90 tablet 01/30/18 Clobetasol Propionate [Temovate 1 applic TOPICAL HS #30 gm 06/19/21 0.05% Oint] Sulfamethox-Tmp 800-160Mg [Bactrim 1 each PO Q12HR #6 tab 12/01/21 Ds] Allergies Allergy/AdvReac Type Severity Reaction Status Date / Time lisinopril Allergy Unknown Verified 11/30/21 21:57 Review of Systems ROS Other: All systems not noted in ROS Statement are negative. <Damion Luna - Last Filed: 11/30/21 22:02> ROS Other: All systems not noted in ROS Statement are negative. Constitutional: Reports: fever, chills, weakness Respiratory: Reports: cough. Denies: dyspnea, wheezes Cardiovascular: Denies: chest pain, palpitations, edema Gastrointestinal: Reports: nausea, diarrhea. Denies: abdominal pain, vomiting, constipation, melena, hematochezia Genitourinary: Denies: dysuria, hematuria Musculoskeletal: Denies: back pain Skin: Denies: rash Neurological: Denies: headache, weakness <Bradley Hartman - Last Filed: 12/01/21 09:20> ROS Statement: Those systems with pertinent positive or pertinent negative responses have been documented in the HPI. Past Medical History Past Medical History: Atrial Fibrillation, Heart Failure, COPD, GERD/Reflux, Osteoarthritis (OA), Renal Disease, Rheumatoid Arthritis (RA), Supraventricular Tachycardia (SVT), Thyroid Disorder Additional Past Medical History / Comment(s): Valvular heart disease with previous aortic valve replacement and a mitral valve repair, congestion heart failure, Paroxysmal Afib, history of SVT, history of nonsustained VT, SOB with exertion, home O2 at 2L/NC usually prn but lately ATC, arthritis, RA several joints, current L elbow pain/swelling-had "injection", nephrolithiasis, hypothyroid, diverticular dx, UTI, iron deficiency anemia. 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 History of Any Multi-Drug Resistant Organisms: None Reported Past Surgical History: Coronary Bypass/CABG, Heart Catheterization, Hysterectomy, Joint Replacement, Orthopedic Surgery Additional Past Surgical History / Comment(s): Geoff total knees arthroplasty,lt hip arthroplasty, goiter removed 1962, partial thyroidectomy, cataracts removed with lens implants, REVERSE TOTAL RIGHT SHOULDER; Rotator cuff R shoulder, cervical fusion/injections, colonoscopy 2017(next after 5yr), MATTHEW, valve surgery at [facility] 10/13/17 Prosthetic Aortic valve and mitral valve repair. Total abdominal hysterectomy in the 1980s. Past Anesthesia/Blood Transfusion Reactions: No Reported Reaction Past Psychological History: No Psychological Hx Reported Smoking Status: Former smoker Past Alcohol Use History: Occasional Past Drug Use History: None Reported - Past Family History Father Family Medical History: Cancer, Myocardial Infarction ([place]) Additional Family Medical History / Comment(s): in his 80's of a mi. Colon cancer. Mother Family Medical History: No Reported History Additional Family Medical History / Comment(s): age 88 in care home pt not sure what she from. hx smoking. Daughter(s) Family Medical History: Cancer Additional Family Medical History / Comment(s): from vulvar cancer. <Damion Luna - Last Filed: 11/30/21 22:02> General Exam General appearance: alert, in no apparent distress Head exam: Present: atraumatic, normocephalic Eye exam: Present: normal appearance ENT exam: Present: mucous membranes dry Neck exam: Present: normal inspection Respiratory exam: Present: normal lung sounds bilaterally. Absent: respiratory distress, wheezes, rales, rhonchi, stridor Cardiovascular Exam: Present: irregular rhythm, systolic murmur. Absent: diastolic murmur, rubs, gallop GI/Abdominal exam: Present: soft. Absent: distended, tenderness, guarding, rebound, rigid, mass Extremities exam: Present: normal inspection, normal capillary refill. Absent: pedal edema, calf tenderness Back exam: Present: normal inspection Neurological exam: Present: alert Skin exam: Present: warm, dry, intact, normal color. Absent: rash <Bradley Hartman - Last Filed: 12/01/21 09:20> Course Vital Signs 11/30/21 12/01/21 12/01/21 21:52 05:16 07:27 Temperature 100.9 F H 99.0 F 98.3 F Pulse Rate 100 88 Respiratory 18 14 16 Rate Blood Pressure 111/52 97/66 94/49 O2 Sat by Pulse 96 96 Oximetry 12/01/21 09:12 Temperature 98.3 F Pulse Rate 92 Respiratory 18 Rate Blood Pressure 90/55 O2 Sat by Pulse 96 Oximetry Medical Decision Making - Lab Data Result diagrams: 12/01/21 05:11 12/01/21 05:11 <Bradley Hartman - Last Filed: 12/01/21 09:20> - Medical Decision Making I saw this patient in conjunction with the physician assistant center manager. I performed independent history and physical exam. Agree with case management. Patient feeling better on reevaluation. She is still receiving IV fluid and antibiotics. She does states she feels like she will be able to go home and would like to go home rather than be admitted. We discussed appropriate further care and follow-up as well as return parameters. (Bradley Hartman) - Lab Data Lab Results 12/01/21 12/01/21 12/01/21 Range/Units 01:47 05:11 05:11 WBC 6.5 (3.8-10.6) k/uL RBC 4.65 (3.80-5.40) m/uL Hgb 12.0 (11.4-16.0) gm/dL Hct 38.8 (34.0-46.0) % MCV 83.5 (80.0-100.0) fL MCH 25.8 (25.0-35.0) pg MCHC 30.9 L (31.0-37.0) g/dL RDW 16.2 H (11.5-15.5) % Plt Count 260 (150-450) k/uL MPV 7.7 Neutrophils % 80 % Lymphocytes % 12 % Monocytes % 4 % Eosinophils % 0 % Basophils % 0 % Neutrophils # 5.1 (1.3-7.7) k/uL Lymphocytes # 0.8 L (1.0-4.8) k/uL Monocytes # 0.3 (0-1.0) k/uL Eosinophils # 0.0 (0-0.7) k/uL Basophils # 0.0 (0-0.2) k/uL Hypochromasia Slight Anisocytosis Slight PT (9.0-12.0) sec INR (<1.2) Sodium (137-145) mmol/L Potassium (3.5-5.1) mmol/L Chloride (98-107) mmol/L Carbon Dioxide (22-30) mmol/L Anion Gap mmol/L BUN (7-17) mg/dL Creatinine (0.52-1.04) mg/dL Est GFR (CKD-EPI)AfAm (>60 ml/min/1.73 sqM) Est GFR (CKD-EPI)NonAf (>60 ml/min/1.73 sqM) Glucose (74-99) mg/dL Plasma Lactic Acid Wilfred (0.7-2.0) mmol/L Calcium (8.4-10.2) mg/dL Total Bilirubin (0.2-1.3) mg/dL AST (14-36) U/L ALT (4-34) U/L Alkaline Phosphatase (38-126) U/L Troponin I (0.000-0.034) ng/mL Total Protein (6.3-8.2) g/dL Albumin (3.5-5.0) g/dL Lipase (23-300) U/L Urine Color Yellow Urine Appearance Clear (Clear) Urine pH 6.0 (5.0-8.0) Ur Specific [place] 1.021 (1.001-1.035) Urine Protein Trace H (Negative) Urine Glucose (UA) Negative (Negative) Urine Ketones Negative (Negative) Urine Blood Small H (Negative) Urine Nitrite Negative (Negative) Urine Bilirubin Negative (Negative) Urine Urobilinogen <2.0 (<2.0) mg/dL Ur Leukocyte Esterase Moderate H (Negative) Urine RBC 38 H (0-5) /hpf Urine WBC 24 H (0-5) /hpf Ur Squamous Epith Cells 2 (0-4) /hpf Urine Bacteria Rare H (None) /hpf Urine Mucus Moderate H (None) /hpf Influenza Type A (PCR) Not Detected (Not Detectd) Influenza Type B (PCR) Not Detected (Not Detectd) RSV (PCR) Not Detected (Not Detectd) SARS-CoV-2 (PCR) Not Detected (Not Detectd) 12/01/21 12/01/21 12/01/21 Range/Units 05:11 05:11 05:11 WBC (3.8-10.6) k/uL RBC (3.80-5.40) m/uL Hgb (11.4-16.0) gm/dL Hct (34.0-46.0) % MCV (80.0-100.0) fL MCH (25.0-35.0) pg MCHC (31.0-37.0) g/dL RDW (11.5-15.5) % Plt Count (150-450) k/uL MPV Neutrophils % % Lymphocytes % % Monocytes % % Eosinophils % % Basophils % % Neutrophils # (1.3-7.7) k/uL Lymphocytes # (1.0-4.8) k/uL Monocytes # (0-1.0) k/uL Eosinophils # (0-0.7) k/uL Basophils # (0-0.2) k/uL Hypochromasia Anisocytosis PT (9.0-12.0) sec INR (<1.2) Sodium 137 (137-145) mmol/L Potassium 3.7 (3.5-5.1) mmol/L Chloride 103 (98-107) mmol/L Carbon Dioxide 23 (22-30) mmol/L Anion Gap 11 mmol/L BUN 18 H (7-17) mg/dL Creatinine 0.68 (0.52-1.04) mg/dL Est GFR (CKD-EPI)AfAm >90 (>60 ml/min/1.73 sqM) Est GFR (CKD-EPI)NonAf 84 (>60 ml/min/1.73 sqM) Glucose 106 H (74-99) mg/dL Plasma Lactic Acid [place] 1.1 (0.7-2.0) mmol/L Calcium 8.6 (8.4-10.2) mg/dL Total Bilirubin 1.0 (0.2-1.3) mg/dL AST 25 (14-36) U/L ALT 14 (4-34) U/L Alkaline Phosphatase 94 (38-126) U/L Troponin I <0.012 (0.000-0.034) ng/mL Total Protein 7.4 (6.3-8.2) g/dL Albumin 3.6 (3.5-5.0) g/dL Lipase 23 (23-300) U/L Urine Color Urine Appearance (Clear) Urine pH (5.0-8.0) Ur Specific [place] (1.001-1.035) Urine Protein (Negative) Urine Glucose (UA) (Negative) Urine Ketones (Negative) Urine Blood (Negative) Urine Nitrite (Negative) Urine Bilirubin (Negative) Urine Urobilinogen (<2.0) mg/dL Ur Leukocyte Esterase (Negative) Urine RBC (0-5) /hpf Urine WBC (0-5) /hpf Ur Squamous Epith Cells (0-4) /hpf Urine Bacteria (None) /hpf Urine Mucus (None) /hpf Influenza Type A (PCR) (Not Detectd) Influenza Type B (PCR) (Not Detectd) RSV (PCR) (Not Detectd) SARS-CoV-2 (PCR) (Not Detectd) 12/01/21 Range/Units 05:11 WBC (3.8-10.6) k/uL RBC (3.80-5.40) m/uL Hgb (11.4-16.0) gm/dL Hct (34.0-46.0) % MCV (80.0-100.0) fL MCH (25.0-35.0) pg MCHC (31.0-37.0) g/dL RDW (11.5-15.5) % Plt Count (150-450) k/uL MPV Neutrophils % % Lymphocytes % % Monocytes % % Eosinophils % % Basophils % % Neutrophils # (1.3-7.7) k/uL Lymphocytes # (1.0-4.8) k/uL Monocytes # (0-1.0) k/uL Eosinophils # (0-0.7) k/uL Basophils # (0-0.2) k/uL Hypochromasia Anisocytosis PT 20.0 H (9.0-12.0) sec INR 2.0 H (<1.2) Sodium (137-145) mmol/L Potassium (3.5-5.1) mmol/L Chloride (98-107) mmol/L Carbon Dioxide (22-30) mmol/L Anion Gap mmol/L BUN (7-17) mg/dL Creatinine (0.52-1.04) mg/dL Est GFR (CKD-EPI)AfAm (>60 ml/min/1.73 sqM) Est GFR (CKD-EPI)NonAf (>60 ml/min/1.73 sqM) Glucose (74-99) mg/dL Plasma Lactic Acid Wilfred (0.7-2.0) mmol/L Calcium (8.4-10.2) mg/dL Total Bilirubin (0.2-1.3) mg/dL AST (14-36) U/L ALT (4-34) U/L Alkaline Phosphatase (38-126) U/L Troponin I (0.000-0.034) ng/mL Total Protein (6.3-8.2) g/dL Albumin (3.5-5.0) g/dL Lipase (23-300) U/L Urine Color Urine Appearance (Clear) Urine pH (5.0-8.0) Ur Specific [place] (1.001-1.035) Urine Protein (Negative) Urine Glucose (UA) (Negative) Urine Ketones (Negative) Urine Blood (Negative) Urine Nitrite (Negative) Urine Bilirubin (Negative) Urine Urobilinogen (<2.0) mg/dL Ur Leukocyte Esterase (Negative) Urine RBC (0-5) /hpf Urine WBC (0-5) /hpf Ur Squamous Epith Cells (0-4) /hpf Urine Bacteria (None) /hpf Urine Mucus (None) /hpf Influenza Type A (PCR) (Not Detectd) Influenza Type B (PCR) (Not Detectd) RSV (PCR) (Not Detectd) SARS-CoV-2 (PCR) (Not Detectd) Disposition <Damion Luna - Last Filed: 11/30/21 22:02> Is patient prescribed a controlled substance at d/c from ED?: No <Bradley Hartman - Last Filed: 12/01/21 09:20> Clinical Impression: Urinary tract infection, Nausea & vomiting Disposition: HOME SELF-CARE Condition: Good Instructions (If sedation given, give patient instructions): Urinary Tract Infection in Men (ED), Acute Nausea and Vomiting (ED) Prescriptions: Sulfamethox-Tmp 800-160Mg [Bactrim Ds] 1 each PO Q12HR #6 tab Referrals: Olya Olson MD [Primary Care Provider] - 1-2 days
--- NOTE | 2021-11-30 22:47 | XR ---
EXAMINATION TYPE: XR chest 1V portable DATE OF EXAM: 11/30/2021 COMPARISON: 02/28/2020 HISTORY: Pain TECHNIQUE: 2 views FINDINGS: Heart is enlarged. There is mild pulmonary congestion. There are sternal wires. There are s light increased interstitial density in the lower lung rios. There is right shoulder prosthesis. Th ere is slight blunting left posterior phrenic angle. IMPRESSION: Cardiomegaly. Mild pulmonary congestion. Small left pleural effusion or pleural reaction. Minimal heart failure is possible.
[2021-12-01 05:33] LABS: Anisocytosis Slight; Basophils % (A) 0 %; Eosinophils % (A) 0 %; HCT 38.8 % (34.0-46.0); Hypochromasia Slight; Lymphocytes # (A) 0.8 k/uL (1.0-4.8); Lymphocytes % (A) 12 %; MCH 25.8 pg (25.0-35.0); MCHC 30.9 g/dL (31.0-37.0); MCV 83.5 fL (80.0-100.0); Mean Platelet Volume 7.7; Monocytes # (A) 0.3 k/uL (0-1.0); Monocytes % (A) 4 %; Neutrophils # (A) 5.1 k/uL (1.3-7.7); Neutrophils % (A) 80 %; Platelet Count 260 k/uL (150-450); RBC 4.65 m/uL (3.80-5.40); RDW 16.2 % (11.5-15.5); WBC 6.5 k/uL (3.8-10.6)
[2021-12-01 06:16] LABS: ALT 14 U/L (4-34); AST 25 U/L (14-36); African American GFR (CKD) >90 (>60 ml/min/1.73 sqM); Albumin 3.6 g/dL (3.5-5.0); Alkaline Phosphatase 94 U/L (38-126); Anion Gap 11 mmol/L; Blood Urea Nitrogen 18 mg/dL (7-17); Calcium 8.6 mg/dL (8.4-10.2); Carbon Dioxide 23 mmol/L (22-30); Chloride 103 mmol/L (98-107); Glucose 106 mg/dL (74-99); Lipase 23 U/L (23-300); Non-African American GFR(CKD) 84 (>60 ml/min/1.73 sqM); Potassium 3.7 mmol/L (3.5-5.1); Sodium 137 mmol/L (137-145); Total Protein 7.4 g/dL (6.3-8.2)
[2021-12-01 07:28] VITALS: TEMP 98.3
[2021-12-01 08:30] LABS: Appearance,Urine Clear (Clear); Bacteria,Urine Rare /hpf; Bilirubin,Urine Negative (Negative); Blood,Urine Small (Negative); Color,Urine Yellow; Glucose,Urine (UA) Negative (Negative); Ketones,Urine Negative (Negative); Leukocyte Esterase,Urine Moderate (Negative); Mucus,Urine Moderate /hpf; Nitrite,Urine Negative (Negative); Protein,Urine Trace (Negative); RBC,Urine 38 /hpf (0-5); Specific Gravity,Urine 1.021 (1.001-1.035); Squamous Epithelial Cell,Urine 2 /hpf (0-4); Urobilinogen,Urine <2.0 mg/dL (<2.0); WBC,Urine 24 /hpf (0-5)
[2021-12-01] MEDS ORDERED: SODIUM CHLORIDE 0.9% 500 ML 500 ML IV STA (08:38)
[2021-12-01 09:14] VITALS: BP 90/55; PULSE 92; RESP 18
== END 2021-12-01 11:12 | disposition home or self-care (01) ==
LOC: EC 20:19
DX: N39.0 Urinary tract infection, site not specified (principal); I50.9 Heart failure, unspecified; J44.9 Chronic obstructive pulmonary disease, unspecified; E03.9 Hypothyroidism, unspecified; I48.91 Unspecified atrial fibrillation; Z88.8 Allergy status to other drugs, medicaments and biological substances; Z20.822 Contact with and (suspected) exposure to COVID-19; Z87.891 Personal history of nicotine dependence; Z79.899 Other long term (current) drug therapy; Z79.890 Hormone replacement therapy; Z79.01 Long term (current) use of anticoagulants; Z79.51 Long term (current) use of inhaled steroids
CPT/HCPCS: 36415; 80053; 83605; 83690; 84484; 85025; 85610; 81001; 87040; 87086; 87636; 71045; 99284; 96365; 96366; 96375; J2405; J0696

== ENCOUNTER → 2021-12-11 | Outpatient (CLI) | payer MEDICARE, OTHER ==
--- NOTE | 2021-12-12 03:10 | MR ---
EXAMINATION TYPE: MR cervical spine wo con DATE OF EXAM: 12/11/2021 COMPARISON: 11/04/2016 HISTORY: Neck pain into ti upper extremities Multiplanar multiecho imaging of the cervical spine without contrast. There is a mild anterior subluxation of C6 in relation to C7 with slight kyphotic curvature. There is compensatory lordosis at C5-6. The cervical cord shows normal signal pattern. No edema. The brainste m appears intact. There is degenerative disc space narrowing throughout the cervical spine. There is no significant spinal stenosis. The spinal canal measures 8.5 mm at the C5-6 level which is the [place]. The prevertebral soft tissues are intact. I see no focal bone destruction. There is some metal artifact from posterior fusion surgery from C2 to C5 level. IMPRESSION: Multilevel spondylotic changes. No spinal stenosis. No evidence of any significant cervical disc chel iation. No adverse change compared to old exam. There is new posterior fusion surgery compared to old exam.
== END | disposition home or self-care (01) ==
LOC: RADMRIMAIN 12:51
PROVIDERS: ATTEND Internal Medicine
DX: M54.2 Cervicalgia (principal)
CPT/HCPCS: 72141

== ENCOUNTER 2022-04-06 10:48 | Emergency (ER) | payer MEDICARE, OTHER ==
[2022-04-06 11:14] VITALS: TEMP 98.6
[2022-04-06] MEDS ORDERED: SODIUM CHLORIDE 0.9% 1,000 ML IV STA (11:29)
[2022-04-06] MEDS ORDERED: ORPHENADRINE 30 MG/ML 2 ML VIAL IM STA (11:30)
[2022-04-06] MEDS ORDERED: KETOROLAC 15 MG/ML 1 ML VIAL IVP STA (11:31)
--- NOTE | 2022-04-06 11:41 | ED ---
Back Pain HPI - General Chief Complaint: Back Pain/Injury Stated Complaint: back pain Time Seen by Provider: 04/06/22 11:18 Source: patient Limitations: no limitations - History of Present Illness Initial Comments: Patient is a 76-year-old female who presents to the emergency department with a chief complaint of low back pain. Patient states she woke up with the pain this morning. Denies injury. Pain is in the lower back without radiation. Pain is worse with standing and walking. Patient states she took a [place] for pain which did help her symptoms. Denies leg weakness. Denies numbness and tingling in the groin/buttock region. Denies urinary or bowel retention and incontinence.. Denies history of cancer. Patient does mention that she was diagnosed with a urinary tract infection a couple weeks ago. Patient states she was prescribed cefuroxime axetil however stopped taking in the prescription after one day. Patient denies burning with urination, increased urinary frequency, increased urinary urgency, blood in the urine. Denies fever, chills, weight loss, shortness of breath, chest pain, abdominal pain, nausea, and vomiting. - Related Data Home Medications Medication Instructions Recorded Confirmed Fluticasone Propion/Salmeterol 1 puff INHALATION RT-BID 09/15/17 06/19/21 [Advair Hfa 230-21 Mcg Inhaler] ALPRAZolam [Xanax] 0.25 mg PO BID PRN 11/27/17 06/19/21 HYDROcodone/APAP 10-325MG [[place] 1 tab PO Q6H PRN 11/27/17 06/19/21 10-325] Albuterol Sulfate [Proair Hfa] 2 puff INHALATION RT-Q4H PRN 07/28/19 06/19/21 Furosemide [Lasix] 20 mg PO DAILY@1600 07/28/19 06/19/21 Levothyroxine Sodium [Levoxyl] 200 mcg PO DAILY 07/28/19 06/19/21 Ascorbic Acid [Vitamin C] 500 mg PO DAILY 05/08/21 06/19/21 Cholecalciferol [Vitamin D3 (25 25 mcg PO DAILY 05/08/21 06/19/21 Mcg = 1000 Iu)] Ipratropium [place] [Atrovent Hfa] 2 puff INHALATION QID 05/08/21 06/19/21 Warfarin Sodium 2 mg PO DAILY 06/19/21 06/19/21 Previous Rx's Medication Instructions Recorded Propafenone [Rythmol] 150 mg PO TID #90 tablet 01/30/18 Clobetasol Propionate [Temovate 1 applic TOPICAL HS #30 gm 06/19/21 0.05% Oint] Sulfamethox-Tmp 800-160Mg [Bactrim 1 each PO Q12HR #6 tab 12/01/21 Ds] Cyclobenzaprine [Flexeril] 5 mg PO BID PRN #10 tablet 04/06/22 Ibuprofen [Motrin] 800 mg PO Q8H PRN #15 tab 04/06/22 Lidocaine 5% Patch [Lidoderm 5% 1 patch TOPICAL DAILY PRN #5 patch 04/06/22 Patch] Allergies Allergy/AdvReac Type Severity Reaction Status Date / Time lisinopril Allergy Unknown Verified 04/06/22 11:14 Review of Systems ROS Statement: Those systems with pertinent positive or pertinent negative responses have been documented in the HPI. ROS Other: All systems not noted in ROS Statement are negative. Past Medical History Past Medical History: Atrial Fibrillation, Heart Failure, COPD, GERD/Reflux, Osteoarthritis (OA), Renal Disease, Rheumatoid Arthritis (RA), Supraventricular Tachycardia (SVT), Thyroid Disorder Additional Past Medical History / Comment(s): Valvular heart disease with previous aortic valve replacement and a mitral valve repair, congestion heart failure, Paroxysmal Afib, history of SVT, history of nonsustained VT, SOB with exertion, home O2 at 2L/NC usually prn but lately ATC, arthritis, RA several joints, current L elbow pain/swelling-had "injection", nephrolithiasis, hypothyroid, diverticular dx, UTI, iron deficiency anemia. 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 History of Any Multi-Drug Resistant Organisms: None Reported Past Surgical History: Coronary Bypass/CABG, Heart Catheterization, Hyster ectomy, Joint Replacement, Orthopedic Surgery Additional Past Surgical History / Comment(s): Geoff total knees arthroplasty,lt hip arthroplasty, goiter removed 1962, partial thyroidectomy, cataracts removed with lens implants, REVERSE TOTAL RIGHT SHOULDER; Rotator cuff R shoulder, cervical fusion/injections, colonoscopy 2017(next after 5yr), MATTHEW, valve surgery at [facility] 10/13/17 Prosthetic Aortic valve and mitral valve repair. Total abdominal hysterectomy in the 1980s. Past Anesthesia/Blood Transfusion Reactions: No Reported Reaction Past Psychological History: No Psychological Hx Reported Smoking Status: Former smoker Past Alcohol Use History: Occasional Past Drug Use History: None Reported - Past Family History Father Family Medical History: Cancer, Myocardial Infarction ([place]) Additional Family Medical History / Comment(s): in his 80's of a mi. Colon cancer. Mother Family Medical History: No Reported History Additional Family Medical History / Comment(s): age 88 in snf pt not sure what she from. hx smoking. Daughter(s) Family Medical History: Cancer Additional Family Medical History / Comment(s): from vulvar cancer. General Exam Limitations: no limitations General appearance: alert, in no apparent distress Head exam: Present: atraumatic, normocephalic, normal inspection Eye exam: Present: normal appearance, PERRL, EOMI. Absent: scleral icterus, conjunctival injection, periorbital swelling Respiratory exam: Present: normal lung sounds bilaterally. Absent: respiratory distress, wheezes, rales, rhonchi, stridor Cardiovascular Exam: Present: regular rate, normal rhythm, normal heart sounds. Absent: systolic murmur, diastolic murmur, rubs, gallop, clicks GI/Abdominal exam: Present: soft, normal bowel sounds. Absent: distended, tenderness, guarding, rebound, rigid Back exam: Present: normal inspection, full ROM, paraspinal tenderness (lumbar bilateral ). Absent: CVA tenderness (R), CVA tenderness (L), vertebral tenderness Neurological exam: Present: alert, oriented X3, CN II-XII intact Psychiatric exam: Present: normal affect, normal mood Skin exam: Present: warm, dry, intact, normal color. Absent: rash Course Vital Signs 04/06/22 04/06/22 11:10 13:10 Temperature 98.6 F Pulse Rate 87 88 Respiratory 18 16 Rate Blood Pressure 94/55 110/64 O2 Sat by Pulse 94 L 100 Oximetry Medical Decision Making - Medical Decision Making This is a 76-year-old female who presents with lower back pain that began this morning when waking up. Thorough history and examination were performed. Immanuel toth is well-appearing. No red flag symptoms. No focal deficit. There is tenderness with palpation of the bilateral lumbar paravertebral muscles. There is no bony tenderness to warrant imaging at this time. No CVA tenderness however given patient's recent untreated urinary tract infection I will obtain laboratory studies. Laboratory studies are unremarkable. Patient has normal white blood cell count at 9.8. Urinalysis is not indicative of infection. Patient will be discharge with symptomatic management for musculoskeletal back pain. She is to follow-up with her primary care provider. Dr. Muniz is my attending. - Lab Data Result diagrams: 04/06/22 11:57 04/06/22 11:57 Lab Results 04/06/22 04/06/22 04/06/22 Range/Units 11:57 11:57 11:57 WBC 9.8 (3.8-10.6) k/uL RBC 4.28 (3.80-5.40) m/uL Hgb 11.7 (11.4-16.0) gm/dL Hct 36.9 (34.0-46.0) % MCV 86.3 (80.0-100.0) fL MCH 27.4 (25.0-35.0) pg MCHC 31.7 (31.0-37.0) g/dL RDW 15.8 H (11.5-15.5) % Plt Count 269 (150-450) k/uL MPV 8.3 Neutrophils % 70 % Lymphocytes % 17 % Monocytes % 5 % Eosinophils % 4 % Basophils % 1 % Neutrophils # 6.8 (1.3-7.7) k/uL Lymphocytes # 1.6 (1.0-4.8) k/uL Monocytes # 0.5 (0-1.0) k/uL Eosinophils # 0.3 (0-0.7) k/uL Basophils # 0.1 (0-0.2) k/uL Hypochromasia Slight Sodium 137 (137-145) mmol/L Potassium 4.0 (3.5-5.1) mmol/L Chloride 104 (98-107) mmol/L Carbon Dioxide 26 (22-30) mmol/L Anion Gap 7 mmol/L BUN 16 (7-17) mg/dL Creatinine 0.73 (0.52-1.04) mg/dL Est GFR (CKD-EPI)AfAm >90 (>60 ml/min/1.73 sqM) Est GFR (CKD-EPI)NonAf 79 (>60 ml/min/1.73 sqM) Glucose 105 H (74-99) mg/dL Calcium 9.0 (8.4-10.2) mg/dL Total Bilirubin 0.7 (0.2-1.3) mg/dL AST 29 (14-36) U/L ALT 13 (4-34) U/L Alkaline Phosphatase 120 (38-126) U/L Total Protein 7.8 (6.3-8.2) g/dL Albumin 4.1 (3.5-5.0) g/dL Lipase 35 (23-300) U/L Urine Color Light Yellow Urine Appearance Clear (Clear) Urine pH 6.0 (5.0-8.0) Ur Specific [place] 1.008 (1.001-1.035) Urine Protein Negative (Negative) Urine Glucose (UA) Negative (Negative) Urine Ketones Negative (Negative) Urine Blood Small H (Negative) Urine Nitrite Negative (Negative) Urine Bilirubin Negative (Negative) Urine Urobilinogen <2.0 (<2.0) mg/dL Ur Leukocyte Esterase Negative (Negative) Urine RBC 5 (0-5) /hpf Urine WBC <1 (0-5) /hpf Ur Squamous Epith Cells 1 (0-4) /hpf Urine Mucus Rare H (None) /hpf Disposition Clinical Impression: Mechanical back pain Disposition: HOME SELF-CARE Condition: Good Instructions (If sedation given, give patient instructions): Acute Low Back Pain (ED) Additional Instructions: Please take medication as directed. Do not drink alcohol or operate machinery while taking Flexeril as it can make you sleepy. Use of warm compress on your back will help symptoms as well. Follow-up with primary care provider in one to 2 days. Return to the emergency department if you experience new, concerning, or worsening symptoms. Prescriptions: Cyclobenzaprine [Flexeril] 5 mg PO BID PRN #10 tablet PRN Reason: Muscle Spasm Lidocaine 5% Patch [Lidoderm 5% Patch] 1 patch TOPICAL DAILY PRN #5 patch PRN Reason: Pain Ibuprofen [Motrin] 800 mg PO Q8H PRN #15 tab PRN Reason: Pain Is patient prescribed a controlled substance at d/c from ED?: No Referrals: Olya Olson MD [Primary Care Provider] - 1-2 days Time of Disposition: 12:53
[2022-04-06] MEDS ORDERED: LIDOCAINE 5% PATCH TOPICAL SCH (11:45)
[2022-04-06 12:05] LABS: Basophils # (A) 0.1 k/uL (0-0.2); Basophils % (A) 1 %; Eosinophils # (A) 0.3 k/uL (0-0.7); Eosinophils % (A) 4 %; HCT 36.9 % (34.0-46.0); HGB 11.7 gm/dL (11.4-16.0); Hypochromasia Slight; Lymphocytes # (A) 1.6 k/uL (1.0-4.8); Lymphocytes % (A) 17 %; MCH 27.4 pg (25.0-35.0); MCHC 31.7 g/dL (31.0-37.0); MCV 86.3 fL (80.0-100.0); Mean Platelet Volume 8.3; Monocytes # (A) 0.5 k/uL (0-1.0); Monocytes % (A) 5 %; Neutrophils # (A) 6.8 k/uL (1.3-7.7); Neutrophils % (A) 70 %; Platelet Count 269 k/uL (150-450); RBC 4.28 m/uL (3.80-5.40); RDW 15.8 % (11.5-15.5); WBC 9.8 k/uL (3.8-10.6)
[2022-04-06 12:30] LABS: Appearance,Urine Clear (Clear); Bilirubin,Urine Negative (Negative); Blood,Urine Small (Negative); Color,Urine Light Yellow; Glucose,Urine (UA) Negative (Negative); Ketones,Urine Negative (Negative); Leukocyte Esterase,Urine Negative (Negative); Mucus,Urine Rare /hpf; Nitrite,Urine Negative (Negative); Protein,Urine Negative (Negative); RBC,Urine 5 /hpf (0-5); Specific Gravity,Urine 1.008 (1.001-1.035); Squamous Epithelial Cell,Urine 1 /hpf (0-4); Urobilinogen,Urine <2.0 mg/dL (<2.0); WBC,Urine <1 /hpf (0-5)
[2022-04-06 12:31] LABS: ALT 13 U/L (4-34); AST 29 U/L (14-36); African American GFR (CKD) >90 (>60 ml/min/1.73 sqM); Albumin 4.1 g/dL (3.5-5.0); Alkaline Phosphatase 120 U/L (38-126); Anion Gap 7 mmol/L; Blood Urea Nitrogen 16 mg/dL (7-17); Carbon Dioxide 26 mmol/L (22-30); Chloride 104 mmol/L (98-107); Glucose 105 mg/dL (74-99); Lipase 35 U/L (23-300); Non-African American GFR(CKD) 79 (>60 ml/min/1.73 sqM); Sodium 137 mmol/L (137-145); Total Bilirubin 0.7 mg/dL (0.2-1.3); Total Protein 7.8 g/dL (6.3-8.2)
[2022-04-06 13:11] VITALS: BP 110/64; PULSE 88; RESP 16
== END 2022-04-06 13:12 | disposition home or self-care (01) ==
LOC: EC 10:48
DX: M54.50 Low back pain, unspecified (principal); E07.9 Disorder of thyroid, unspecified; Z79.899 Other long term (current) drug therapy; Z87.891 Personal history of nicotine dependence; Z82.49 Family history of ischemic heart disease and other diseases of the circulatory system; Z88.8 Allergy status to other drugs, medicaments and biological substances
CPT/HCPCS: 36415; 80053; 83690; 85025; 81001; 99284; J2360; J1885

== ENCOUNTER 2022-05-05 11:37 | Emergency (ER) | payer MEDICARE, OTHER ==
[2022-05-05 11:45] VITALS: BP 113/64; PULSE 81; RESP 18; TEMP 98.2
[2022-05-05] MEDS ORDERED: FLUORESCEIN STRIPS 1 MG STRIP RIGHT EYE ONE (11:59)
[2022-05-05] MEDS ORDERED: PROPARACAINE 0.5% OPHTH DROPS 15 ML BTL RIGHT EYE STA (11:59)
--- NOTE | 2022-05-05 12:56 | ED ---
Eye Problem HPI - General Chief complaint: Eye Problems Stated complaint: rt eye pain Time Seen by Provider: 05/05/22 11:54 Source: patient Mode of arrival: ambulatory Limitations: no limitations - History of Present Illness Initial comments: Patient is a 76-year-old female presenting with chief complaint of right eye pain. Patient states she has had eye pain on and off for the last 2 months. He shouldn't states she was seen at her "eye doctor" about a month ago and told that there were no issues, unclear if this was an corset maker or optometri st. Patient denies any vision changes. No discharge, pain with eye movements, headaches, fever, chills, neck pain, flashes, floaters, double vision. - Related Data Home Medications Medication Instructions Recorded Confirmed Fluticasone Propion/Salmeterol 1 puff INHALATION RT-BID 09/15/17 06/19/21 [Advair Hfa 230-21 Mcg Inhaler] ALPRAZolam [Xanax] 0.25 mg PO BID PRN 11/27/17 06/19/21 HYDROcodone/APAP 10-325MG [[place] 1 tab PO Q6H PRN 11/27/17 06/19/21 10-325] Albuterol Sulfate [Proair Hfa] 2 puff INHALATION RT-Q4H PRN 07/28/19 06/19/21 Furosemide [Lasix] 20 mg PO DAILY@1600 07/28/19 06/19/21 Levothyroxine Sodium [Levoxyl] 200 mcg PO DAILY 07/28/19 06/19/21 Ascorbic Acid [Vitamin C] 500 mg PO DAILY 05/08/21 06/19/21 Cholecalciferol [Vitamin D3 (25 25 mcg PO DAILY 05/08/21 06/19/21 Mcg = 1000 Iu)] Ipratropium [place] [Atrovent Hfa] 2 puff INHALATION QID 05/08/21 06/19/21 Warfarin Sodium 2 mg PO DAILY 06/19/21 06/19/21 Previous Rx's Medication Instructions Recorded Propafenone [Rythmol] 150 mg PO TID #90 tablet 01/30/18 Clobetasol Propionate [Temovate 1 applic TOPICAL HS #30 gm 06/19/21 0.05% Oint] Sulfamethox-Tmp 800-160Mg [Bactrim 1 each PO Q12HR #6 tab 12/01/21 Ds] Cyclobenzaprine [Flexeril] 5 mg PO BID PRN #10 tablet 04/06/22 Ibuprofen [Motrin] 800 mg PO Q8H PRN #15 tab 04/06/22 Lidocaine 5% Patch [Lidoderm 5% 1 patch TOPICAL DAILY PRN #5 patch 04/06/22 Patch] Erythromycin Ophth Oint [Romycin 1 applic RIGHT EYE QID 5 Days #3.5 05/05/22 Ophth Oint] gm Allergies Allergy/AdvReac Type Severity Reaction Status Date / Time lisinopril Allergy Unknown Verified 05/05/22 11:45 Review of Systems ROS Statement: Those systems with pertinent positive or pertinent negative responses have been documented in the HPI. ROS Other: All systems not noted in ROS Statement are negative. Past Medical History Past Medical History: Atrial Fibrillation, Heart Failure, COPD, GERD/Reflux, Osteoarthritis (OA), Renal Disease, Rheumatoid Arthritis (RA), Supraventricular Tachycardia (SVT), Thyroid Disorder Additional Past Medical History / Comment(s): Valvular heart disease with previous aortic valve replacement and a mitral valve repair, congestion heart failure, Paroxysmal Afib, history of SVT, history of nonsustained VT, SOB with exertion, home O2 at 2L/NC usually prn but lately ATC, arthritis, RA several joints, current L elbow pain/swelling-had "injection", nephrolithiasis, hypothyroid, diverticular dx, UTI, iron deficiency anemia. 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 History of Any Multi-Drug Resistant Organisms: None Reported Past Surgical History: Coronary Bypass/CABG, Heart Catheterization, Hysterectomy, Joint Replacement, Orthopedic Surgery Additional Past Surgical History / Comment(s): Geoff total knees arthroplasty,lt hip arthroplasty, goiter removed 1962, partial thyroidectomy, cataracts removed with lens implants, REVERSE TOTAL RIGHT SHOULDER; Rotator cuff R shoulder, cervical fusion/injections, colonoscopy 2016(next after 5yr), MATTHEW, valve surgery at [facility] 10/13/17 Prosthetic Aortic valve and mitral valve repair. Total abdominal hysterectomy in the 1980s. Past Anesthesia/Blood Transfusion Reactions: No Reported Reaction Past Psychological History: No Psychological Hx Reported Smoking Status: Former smoker Past Alcohol Use History: Occasional Past Drug Use History: None Reported - Past Family History Father Family Medical History: Cancer, Myocardial Infarction ([place]) Additional Family Medical History / Comment(s): in his 80's of a mi. Colon cancer. Mother Family Medical History: No Reported History Additional Family Medical History / Comment(s): age 88 in assisted pt not sure what she from. hx smoking. Daughter(s) Family Medical History: Cancer Additional Family Medical History / Comment(s): from vulvar cancer. General Exam Limitations: no limitations General appearance: alert, in no apparent distress Head exam: Present: atraumatic, normocephalic, normal inspection Eye exam: Present: normal appearance, PERRL, EOMI. Absent: scleral icterus, conjunctival injection, periorbital swelling, periorbital tenderness Pupils: Present: normal accommodation Neck exam: Present: normal inspection, full ROM. Absent: tenderness Neurological exam: Present: alert, oriented X3, CN II-XII intact Psychiatric exam: Present: normal affect, normal mood Skin exam: Present: warm, dry, intact, normal color. Absent: rash Course Vital Signs 05/05/22 11:41 Temperature 98.2 F Pulse Rate 81 Respiratory 18 Rate Blood Pressure 113/64 O2 Sat by Pulse 94 L Oximetry Medical Decision Making - Medical Decision Making Patient is a 76-year-old female presenting with chief complaint of right eye pain. Patient states she has had eye pain on and off for the last 2 months. He shouldn't states she was seen at her "eye doctor" about a month ago and told that there were no issues, unclear if this was an corset maker or associate merchandiser. Patient denies any vision changes. No discharge, pain with eye movements, headaches, fever, chills, neck pain, flashes, floaters, double vision. Visual acuity was found to be 20/70 in the affected eye, 20/40 in the left eye and 20/40 overall. Fluorescein staining showed no sign of abrasion or ulcer. Extraocular motions are intact, normal peripheral vision, PERRLA. Patient was educated on potential for dry eye and instructed to utilize eye drops for moisture. Given prescription for erythromycin eye ointment prophylactically. Instructed to follow-up with PCP and ophthalmology. Report back to ER with any new or worsening symptoms. Discussed return parameters and answered all questions. Patient conveyed verbal understanding and agreed to the plan. I discussed this case in detail with my attending Dr. Abilio Disposition Clinical Impression: Dry eyes Disposition: HOME SELF-CARE Condition: Good Instructions (If sedation given, give patient instructions): Eye Lubricant (Into the eye) Additional Instructions: Follow-up with PCP and corset maker. Report back to ER with any new or worsening symptoms. Take medication as prescribed. Use [id number] eyedrops to help moisten the eye. Prescriptions: Erythromycin Ophth Oint [Romycin Ophth Oint] 1 applic RIGHT EYE QID 5 Days #3.5 gm Is patient prescribed a controlled substance at d/c from ED?: No Referrals: Olya Olson MD [Primary Care Provider] - 1-2 days Nas Gee MD [STAFF PHYSICIAN] - 1-2 days Time of Disposition: 13:18
== END 2022-05-05 13:21 | disposition home or self-care (01) ==
LOC: EC 11:37
DX: H04.123 Dry eye syndrome of bilateral lacrimal glands (principal); J44.9 Chronic obstructive pulmonary disease, unspecified; M19.90 Unspecified osteoarthritis, unspecified site; E03.9 Hypothyroidism, unspecified; Z86.79 Personal history of other diseases of the circulatory system; Z87.891 Personal history of nicotine dependence; Z79.51 Long term (current) use of inhaled steroids; Z79.890 Hormone replacement therapy; Z79.01 Long term (current) use of anticoagulants; Z88.8 Allergy status to other drugs, medicaments and biological substances
CPT/HCPCS: 99283

== ENCOUNTER 2022-06-06 16:52 | Inpatient (IN) | payer MEDICARE, OTHER ==
[2022-06-06] MEDS ORDERED: DILTIAZEM DRIP BOLUS FROM BAG 1 MG SOLN IV ONE (18:01)
--- NOTE | 2022-06-06 18:04 | ED ---
General Adult HPI - General Chief complaint: Dizziness Stated complaint: abn ecg Time Seen by Provider: 06/06/22 17:52 Source: patient, RN notes reviewed Mode of arrival: ambulatory Limitations: no limitations - History of Present Illness Initial comments: Patient is a pleasant 76-year-old female presenting to the emergency department with concerns for atrial flutter. Patient does have history of this and is on medication of blood thinners. Patient went to the office today and was concerned with her doctor regarding increased heart rate. Patient states she was unaware of this however when she puts her hand on her chest she can feel it. Otherwise no chest pain or dyspnea. - Related Data Home Medications Medication Instructions Recorded Confirmed Fluticasone Propion/Salmeterol 1 puff INHALATION RT-BID 09/15/17 06/19/21 [Advair Hfa 230-21 Mcg Inhaler] ALPRAZolam [Xanax] 0.25 mg PO BID PRN 11/27/17 06/19/21 HYDROcodone/APAP 10-325MG [[place] 1 tab PO Q6H PRN 11/27/17 06/19/21 10-325] Albuterol Sulfate [Proair Hfa] 2 puff INHALATION RT-Q4H PRN 07/28/19 06/19/21 Furosemide [Lasix] 20 mg PO DAILY@1600 07/28/19 06/19/21 Levothyroxine Sodium [Levoxyl] 200 mcg PO DAILY 07/28/19 06/19/21 Ascorbic Acid [Vitamin C] 500 mg PO DAILY 05/08/21 06/19/21 Cholecalciferol [Vitamin D3 (25 25 mcg PO DAILY 05/08/21 06/19/21 Mcg = 1000 Iu)] Ipratropium [place] [Atrovent Hfa] 2 puff INHALATION QID 05/08/21 06/19/21 Warfarin Sodium 2 mg PO DAILY 06/19/21 06/19/21 Previous Rx's Medication Instructions Recorded Propafenone [Rythmol] 150 mg PO TID #90 tablet 01/30/18 Clobetasol Propionate [Temovate 1 applic TOPICAL HS #30 gm 06/19/21 0.05% Oint] Sulfamethox-Tmp 800-160Mg [Bactrim 1 each PO Q12HR #6 tab 12/01/21 Ds] Cyclobenzaprine [Flexeril] 5 mg PO BID PRN #10 tablet 04/06/22 Ibuprofen [Motrin] 800 mg PO Q8H PRN #15 tab 04/06/22 Lidocaine 5% Patch [Lidoderm 5% 1 patch TOPICAL DAILY PRN #5 patch 04/06/22 Patch] Erythromycin Ophth Oint [Romycin 1 applic RIGHT EYE QID 5 Days #3.5 05/05/22 Ophth Oint] gm Allergies Allergy/AdvReac Type Severity Reaction Status Date / Time lisinopril Allergy Unknown Verified 06/06/22 17:22 Review of Systems ROS Statement: Those systems with pertinent positive or pertinent negative responses have been documented in the HPI. ROS Other: All systems not noted in ROS Statement are negative. Constitutional: Denies: fever Eyes: Denies: eye pain ENT: Denies: ear pain Respiratory: Denies: cough, dyspnea Cardiovascular: Reports: as per HPI. Denies: chest pain Endocrine: Denies: fatigue Gastrointestinal: Denies: abdominal pain Genitourinary: Denies: dysuria Musculoskeletal: Denies: back pain Skin: Denies: rash Neurological: Denies: weakness Past Medical History Past Medical History: Atrial Fibrillation, Heart Failure, COPD, GERD/Reflux, Osteoarthritis (OA), Renal Disease, Rheumatoid Arthritis (RA), Supraventricular Tachycardia (SVT), Thyroid Disorder Additional Past Medical History / Comment(s): Valvular heart disease with previous aortic valve replacement and a mitral valve repair, congestion heart failure, Paroxysmal Afib, history of SVT, history of nonsustained VT, SOB with exertion, home O2 at 2L/NC usually prn but lately ATC, arthritis, RA several joints, current L elbow pain/swelling-had "injection", nephrolithiasis, hypothyroid, diverticular dx, UTI, iron deficiency anemia. 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 History of Any Multi-Drug Resistant Organisms: None Reported Past Surgical History: Coronary Bypass/CABG, Heart Catheterization, Hysterectomy, Joint Replacement, Orthopedic Surgery Additional Past Surgical History / Comment(s): Geoff total knees arthroplasty,lt hip arthroplasty, goiter removed 1962, partial thyroidectomy, cataracts removed with lens implants, REVERSE TOTAL RIGHT SHOULDER; Rotator cuff R shoulder, cervical fusion/injections, colonoscopy 2017(next after 5yr), MATTHEW, valve surgery at [facility] 10/13/17 Prosthetic Aortic valve and mitral valve repair. Total abdominal hysterectomy in the 1980s. Past Anesthesia/Blood Transfusion Reactions: No Reported Reaction Past Psychological History: No Psychological Hx Reported Smoking Status: Former smoker Past Alcohol Use History: Occasional Past Drug Use History: None Reported - Past Family History Father Family Medical History: Cancer, Myocardial Infarction ([place]) Additional Family Medical History / Comment(s): in his 80's of a mi. Colon cancer. Mother Family Medical History: No Reported History Additional Family Medical History / Comment(s): age 88 in care home pt not sure what she from. hx smoking. Daughter(s) Family Medical History: Cancer Additional Family Medical History / Comment(s): from vulvar cancer. General Exam Limitations: no limitations General appearance: alert, in no apparent distress Head exam: Present: normocephalic Eye exam: Present: normal appearance Neck exam: Present: normal inspection Respiratory exam: Present: normal lung sounds bilaterally Cardiovascular Exam: Present: tachycardia GI/Abdominal exam: Present: soft. Absent: tenderness Extremities exam: Present: normal inspection. Absent: pedal edema, calf tenderness Neurological exam: Present: alert Psychiatric exam: Present: normal affect, normal mood Skin exam: Present: normal color Course Vital Signs 06/06/22 06/06/22 17:19 18:26 Temperature 98.5 F Pulse Rate 122 H 125 H Respiratory 20 16 Rate Blood Pressure 101/56 113/74 O2 Sat by Pulse 95 98 Oximetry EKG Findings - EKG Comments: EKG Findings:: Atrial flutter with rate of 126. QRS 96. QT 220. QTc to 29. Right axis. Incomplete right bundle-branch block. Nonspecific ST-T. Medical Decision Making - Medical Decision Making Chest x-ray concerning for CHF, BNP added. Patient revised and updated. Heart rate between 113 and 120 despite Cardizem. Case discussed with Dr. Olson, who will admit his patient. - Lab Data Result diagrams: 06/06/22 17:29 06/06/22 17:29 Lab Results 06/06/22 06/06/22 06/06/22 Range/Units 17:29 17:29 17:29 WBC 6.5 (3.8-10.6) k/uL RBC 4.07 (3.80-5.40) m/uL Hgb 10.6 L (11.4-16.0) gm/dL Hct 34.5 (34.0-46.0) % MCV 84.8 (80.0-100.0) fL MCH 26.1 (25.0-35.0) pg MCHC 30.7 L (31.0-37.0) g/dL RDW 15.6 H (11.5-15.5) % Plt Count 236 (150-450) k/uL MPV 8.5 Neutrophils % (Manual) 64 % Lymphocytes % (Manual) 25 % Monocytes % (Manual) 6 % Eosinophils % (Manual) 5 % Neutrophils # (Manual) 4.16 (1.3-7.7) k/uL Lymphocytes # (Manual) 1.63 (1.0-4.8) k/uL Monocytes # (Manual) 0.39 (0-1.0) k/uL Eosinophils # (Manual) 0.33 (0-0.7) k/uL Nucleated RBCs 0 (0-0) /100 WBC Manual Slide Review Performed Hypochromasia Moderate PT 19.9 H (9.0-12.0) sec INR 2.0 H (<1.2) Sodium 139 (137-145) mmol/L Potassium 3.6 (3.5-5.1) mmol/L Chloride 101 (98-107) mmol/L Carbon Dioxide 24 (22-30) mmol/L Anion Gap 14 mmol/L BUN 15 (7-17) mg/dL Creatinine 0.66 (0.52-1.04) mg/dL Est GFR (CKD-EPI)AfAm >90 (>60 ml/min/1.73 sqM) Est GFR (CKD-EPI)NonAf 85 (>60 ml/min/1.73 sqM) Glucose 107 H (74-99) mg/dL Calcium 9.0 (8.4-10.2) mg/dL Total Bilirubin 0.7 (0.2-1.3) mg/dL AST 25 (14-36) U/L ALT 20 (4-34) U/L Alkaline Phosphatase 121 (38-126) U/L Troponin I (0.000-0.034) ng/mL Total Protein 6.9 (6.3-8.2) g/dL Albumin 4.0 (3.5-5.0) g/dL 10/06/22 Range/Units 17:29 WBC (3.8-10.6) k/uL RBC (3.80-5.40) m/uL Hgb (11.4-16.0) gm/dL Hct (34.0-46.0) % MCV (80.0-100.0) fL MCH (25.0-35.0) pg MCHC (31.0-37.0) g/dL RDW (11.5-15.5) % Plt Count (150-450) k/uL MPV Neutrophils % (Manual) % Lymphocytes % (Manual) % Monocytes % (Manual) % Eosinophils % (Manual) % Neutrophils # (Manual) (1.3-7.7) k/uL Lymphocytes # (Manual) (1.0-4.8) k/uL Monocytes # (Manual) (0-1.0) k/uL Eosinophils # (Manual) (0-0.7) k/uL Nucleated RBCs (0-0) /100 WBC Manual Slide Review Hypochromasia PT (9.0-12.0) sec INR (<1.2) Sodium (137-145) mmol/L Potassium (3.5-5.1) mmol/L Chloride (98-107) mmol/L Carbon Dioxide (22-30) mmol/L Anion Gap mmol/L BUN (7-17) mg/dL Creatinine (0.52-1.04) mg/dL Est GFR (CKD-EPI)AfAm (>60 ml/min/1.73 sqM) Est GFR (CKD-EPI)NonAf (>60 ml/min/1.73 sqM) Glucose (74-99) mg/dL Calcium (8.4-10.2) mg/dL Total Bilirubin (0.2-1.3) mg/dL AST (14-36) U/L ALT (4-34) U/L Alkaline Phosphatase (38-126) U/L Troponin I <0.012 (0.000-0.034) ng/mL Total Protein (6.3-8.2) g/dL Albumin (3.5-5.0) g/dL - Radiology Data Radiology results: image reviewed (Chest x-ray does show some pulmonary congestion) Critical Care Time Critical Care Time: Yes Total Critical Care Time: 32 Disposition Clinical Impression: Atrial flutter with rapid ventricular response Disposition: ADMITTED IP TO THIS HOSP Is patient prescribed a controlled substance at d/c from ED?: No Referrals: Olya Olson MD [Primary Care Provider] - 1-2 days Time of Disposition: 19:03
[2022-06-06 18:15] LABS: Prothrombin Time 19.9 sec (9.0-12.0)
[2022-06-06] MEDS ORDERED: DILTIAZEM 125 MG in SODIUM CHLORIDE 0.9% 100 ML IV SCH (18:15)
[2022-06-06 18:17] LABS: ALT 20 U/L (4-34); AST 25 U/L (14-36); African American GFR (CKD) >90 (>60 ml/min/1.73 sqM); Alkaline Phosphatase 121 U/L (38-126); Anion Gap 14 mmol/L; Blood Urea Nitrogen 15 mg/dL (7-17); Carbon Dioxide 24 mmol/L (22-30); Chloride 101 mmol/L (98-107); Glucose 107 mg/dL (74-99); Non-African American GFR(CKD) 85 (>60 ml/min/1.73 sqM); Potassium 3.6 mmol/L (3.5-5.1); Sodium 139 mmol/L (137-145); Total Bilirubin 0.7 mg/dL (0.2-1.3); Total Protein 6.9 g/dL (6.3-8.2)
[2022-06-06 18:18] LABS: HCT 34.5 % (34.0-46.0); HGB 10.6 gm/dL (11.4-16.0); Hypochromasia Moderate; MCH 26.1 pg (25.0-35.0); MCHC 30.7 g/dL (31.0-37.0); MCV 84.8 fL (80.0-100.0); Mean Platelet Volume 8.5; Platelet Count 236 k/uL (150-450); RBC 4.07 m/uL (3.80-5.40); RDW 15.6 % (11.5-15.5); WBC 6.5 k/uL (3.8-10.6)
--- NOTE | 2022-06-06 18:35 | XR ---
EXAMINATION TYPE: XR chest 2V DATE OF EXAM: 06/06/2022 COMPARISON: 11/30/2021 HISTORY: Dysrhythmia TECHNIQUE: FINDINGS: Heart is enlarged. There is mild pulmonary congestion. There are sternal wires. There is ri ght shoulder prosthesis. There is very slight blunting of the costophrenic angles. IMPRESSION: There is likely mild congestive heart failure. Pulmonary congestion increased compared to old exam.
[2022-06-06 18:46] LABS: Eosinophils # (M) 0.33 k/uL (0-0.7); Lymphocytes # (M) 1.63 k/uL (1.0-4.8); Monocytes # (M) 0.39 k/uL (0-1.0); Neutrophils # (M) 4.16 k/uL (1.3-7.7); Neutrophils % (M) 64 %; Nucleated Red Blood Cells 0 /100 WBC (0-0); Total Cells Counted 100
[2022-06-06] MEDS ORDERED: NALOXONE 0.4 MG/ML 1 ML VIAL IV PRN (19:03)
[2022-06-07] MEDS ORDERED: ALBUTEROL NEBULIZED 2.5 MG/3 ML INHALATION PRN (05:40)
[2022-06-07] MEDS ORDERED: HYDROcodone/APAP 10-325MG 1 EACH TAB PO PRN (05:40)
[2022-06-07] MEDS: LEVOTHYROXINE 75 MCG TAB PO SCH (06:36)
[2022-06-07] MEDS: IPRATROPIUM-ALBUTEROL 3 ML NEB INHALATION SCH ×2 (08:27→19:44)
[2022-06-07] MEDS: CHOLECALCIFEROL 125 MCG (5000 IU) TABLET PO SCH (08:43)
[2022-06-07] MEDS: PROPAFENONE 150 MG TAB PO SCH ×3 (08:43→21:41)
[2022-06-07] MEDS: ASCORBIC ACID 500 MG TAB PO SCH ×2 (08:43→21:41)
[2022-06-07] MEDS: POTASSIUM CHLORIDE ER 10 MEQ TAB.ER.PRT PO SCH (08:43)
[2022-06-07] MEDS: FUROSEMIDE 20 MG TAB PO SCH (08:43)
[2022-06-07 08:58] LABS: INR 2.1 (<1.2); Prothrombin Time 20.9 sec (9.0-12.0)
[2022-06-07] MEDS ORDERED: METOPROLOL TARTRATE 12.5 MG TAB PO SCH (09:00)
[2022-06-07] MEDS ORDERED: PROPAFENONE 225 MG TAB PO STA (09:31)
[2022-06-07] MEDS ORDERED: PROPAFENONE 150 MG TAB PO STA (09:33)
--- NOTE | 2022-06-07 09:37 | P.HPIM ---
History of Present Illness H&P Date: 06/07/22 Chief Complaint: Flutter with RVR This is a 68-year-old female patient who presented to the ER after concerns from PCP about elevated heart rate. Patient reports that she has been feeling off for the past few days with increased shortness of breath and weakness. Patient does have a past medical history of atrial fibrillation in which she is maintained on Coumadin. Patient denies any recent illness or infection. Additional medical history includes CHF, COPD, GERD, osteoarthritis, rheumatoid arthritis, thyroid disorder, coronary artery bypass graft surgery, SVT and iron deficiency anemia. Chest x-ray obtained in ER showing likely mild congestive heart failure. Pulmonary congestion increased compared to old exam. BNP elevated at 3450. Troponins negative 3. Patient was given IV Cardizem. Heart rate improved. 2-D echo and cardiology consult ordered. INR therapeutic at 2.0 pharmacy to dose Coumadin. Repeat labs ordered daily INR ordered. This time patient denies chest pain or shortness breath. Patient denies nausea vomiting or diarrhea. Patient denies any urinary burning or frequency Review of Systems please refer to HPI otherwise unremarkable Past Medical History Past Medical History: Atrial Fibrillation, Heart Failure, COPD, GERD/Reflux, Osteoarthritis (OA), Renal Disease, Rheumatoid Arthritis (RA), Supraventricular Tachycardia (SVT), Thyroid Disorder Additional Past Medical History / Comment(s): Valvular heart disease with previous aortic valve replacement and a mitral valve repair, congestion heart failure, Paroxysmal Afib, history of SVT, history of nonsustained VT, SOB with exertion, home O2 at 2L/NC usually prn but lately ATC, arthritis, RA several joints, current L elbow pain/swelling-had "injection", nephrolithiasis, hypothyroid, diverticular dx, UTI, iron deficiency anemia. 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 History of Any Multi-Drug Resistant Organisms: None Reported Past Surgical History: Coronary Bypass/CABG, Heart Catheterization, Hysterectomy, Joint Replacement, Orthopedic Surgery Additional Past Surgical History / Comment(s): Geoff total knees arthroplasty,lt hip arthroplasty, goiter removed 1962, partial thyroidectomy, cataracts removed with lens implants, REVERSE TOTAL RIGHT SHOULDER; Rotator cuff R shoulder, cervical fusion/injections, colonoscopy 2016(next after 5yr), MATTHEW, valve surgery at [facility] 10/13/17 Prosthetic Aortic valve and mitral valve repair. Total abdominal hysterectomy in the 1980s. Past Anesthesia/Blood Transfusion Reactions: Postoperative Nausea & Vomiting (PONV) Past Psychological History: No Psychological Hx Reported Additional Psychological History / Comment(s): Pt resides with her spouse in an apartment with no stairs. She used to drive but not since valve surgery. Her spouse is helpful and able to drive her to appts. She has home oxygen. She uses a walker to ambulate and has a cane. She also has a scale and B/P monitor. She has used VMA in the recent past. Smoking Status: Former smoker Past Alcohol Use History: Occasional Additional Past Alcohol Use History / Comment(s): She used to drink 2 glasses of wine per week but hasn't for months, quit smoking @age of 43, smoked 1ppd for 30 yrs. Past Drug Use History: None Reported - Past Family History Father Family Medical History: Cancer, Myocardial Infarction ([place]) Additional Family Medical History / Comment(s): in his 80's of a mi. Colon cancer. Mother Family Medical History: No Reported History Additional Family Medical History / Comment(s): age 88 in assisted pt not sure what she from. hx smoking. Daughter(s) Family Medical History: Cancer Additional Family Medical History / Comment(s): from vulvar cancer. Medications and Allergies Home Medications Medication Instructions Recorded Confirmed Type HYDROcodone/APAP 10-325MG [[place] 0.5 tab PO Q8H PRN 11/27/17 06/06/22 History 10-325] Propafenone [Rythmol] 150 mg PO TID #90 tablet 01/30/18 06/06/22 Rx Albuterol Sulfate [Proair Hfa] 2 puff INHALATION RT-Q4H PRN 07/28/19 06/06/22 History Furosemide [Lasix] 20 mg PO DAILY 07/28/19 06/06/22 History Ascorbic Acid [Vitamin C] 500 mg PO BID 05/08/21 06/06/22 History Warfarin Sodium 2 mg PO PC-SUPPER 06/19/21 06/06/22 History Cholecalciferol (Vitamin D3) 125 mcg PO DAILY 06/06/22 06/06/22 History [Vitamin D3 (125 MCG = 5,000 IU)] Furosemide [Lasix] 20 mg PO DAILY@1600 PRN 06/06/22 06/06/22 History Ipratropium-Albuterol Nebulize 3 ml INHALATION RT-BID 06/06/22 06/06/22 History [Duoneb 0.5 mg-3 mg/3 ml Soln] Levothyroxine Sodium 150 mcg PO AC-BRKFST 06/06/22 06/06/22 History Potassium Chloride [Potassium 10 meq PO DAILY 06/06/22 06/06/22 History Chloride ER] Allergies Allergy/AdvReac Type Severity Reaction Status Date / Time lisinopril Allergy Unknown Verified 06/06/22 19:43 Physical Exam Vitals: Vital Signs Temp Pulse Pulse Resp BP BP Pulse Ox 06/07/22 08:40 96 06/07/22 08:28 96 06/07/22 08:00 98.4 F 86 17 108/54 94 L 06/07/22 04:00 63 18 104/61 93 L 06/07/22 02:00 65 18 06/07/22 00:00 97.5 F L 65 18 100/53 93 L 06/06/22 22:20 98.0 F 60 18 113/62 94 L 06/06/22 21:00 97.8 F 96 20 112/68 96 06/06/22 20:00 97.6 F 94 18 115/69 97 06/06/22 19:18 98.0 F 117 H 20 101/61 98 06/06/22 18:26 125 H 16 113/74 98 06/06/22 17:55 126 H 06/06/22 17:19 98.5 F 122 H 20 101/56 95 Intake and Output 06/06/22 06/07/22 06/07/22 22:59 06:59 14:59 Other: Voiding Method Toilet # Voids 1 1 Weight 48.988 kg Head normocephalic Neck supple Lungs clear to auscultation bilaterally no wheezing or crackles Heart irregular heart rate Abdomen is soft nontender nondistended positive bowel sounds no hepatosplenomegaly Extremities no edema Neuro alert and orientated to 3 Results CBC & Chem 7: 06/06/22 17:29 06/06/22 17:29 Labs: Abnormal Lab Results - Last 24 Hours (Table) 06/06/22 06/06/22 06/06/22 Range/Units 17:29 17:29 17:29 Hgb 10.6 L (11.4-16.0) gm/dL MCHC 30.7 L (31.0-37.0) g/dL RDW 15.6 H (11.5-15.5) % PT 19.9 H (9.0-12.0) sec INR 2.0 H (<1.2) Glucose 107 H (74-99) mg/dL 06/07/22 Range/Units 07:58 Hgb (11.4-16.0) gm/dL MCHC (31.0-37.0) g/dL RDW (11.5-15.5) % PT 20.9 H (9.0-12.0) sec INR 2.1 H (<1.2) Glucose (74-99) mg/dL Thrombosis Risk Factor Assmnt - Choose All That Apply Any of the Below Risk Factors Present?: Yes Each Factor Represents 1 point: Abnormal pulmonary function (COPD), Heart failure (<1month) Other Risk Factors: Yes Each Risk Factor Represents 3 Points: Age 75 years or older Thrombosis Risk Factor Assessment Total Risk Factor Score: 5 Thrombosis Risk Factor Assessment Level: High Risk Assessment and Plan Assessment: 1. Atrial flutter with rapid ventricular response 2. Acute on chronic systolic CHF exacerbation 3. History of atrial fibrillation maintained on Coumadin 4. History of COPD 5. History of valvular heart disease with history of aortic valve replacement with bioprosthetic valve and history of mitral valve repair in October 2017 6. History of rheumatoid arthritis 7. History of nonischemic cardiomyopathy DVT prophylaxis Coumadin. GI prophylaxis Pepcid Cardiology service is consulted 2-D echo ordered Repeat labs ordered Time with Patient: Greater than 30 (Greater than 60% of the total time spent in counseling and coordination of care)
--- NOTE | 2022-06-07 10:52 | P.CRDCN ---
History of Present Illness Consult date: 06/07/22 History of present illness: HISTORY OF PRESENT ILLNESS: This is a 76 year old female with a past medical history significant for atrial fibrillation, aortic valve replacement and MV repair in 2018, and nonischemic cardiomyopathy with improving EF. Patient follows in the office with Dr. Flores. We have been asked to see the patient in consultation for aflutter. Patient examined at the bedside. Patient presented to the hospital with a chief com plaint of dizziness and fatigue. Denies chest pain or pressure. Denies SOB. Denies palpitations. Patient was found to be in aflutter with RVR. She is currently in atrial flutter with controlled ventricular rates. She is on IV Cardizem. * EKG reveals atrial flutter with RVR. * Chest xray there is likely mild congestive heart failure. Pulmonary congestion increased compared to exam. * Laboratory data: The WBC 6.5. Hemoglobin 10.6. Platelet count 236. INR 2.1. Sodium 139. Potassium 3.6. BUN 15. Creatinine 0.66. Troponin negative 3. ProBNP 3450. * Current home cardiac medications include warfarin 2 mg with dinner, Rythmol 150 mg 3 times a day, Lasix 20 mg daily * Most recent echocardiogram obtained in January 2021 revealed ejection fraction 52%, moderate TR, mild MR, prosthetic aortic valve, repair of mitral valve * Cardiac catheterization history: 2018 revealing normal coronary arteries REVIEW OF SYSTEMS: At the time of my exam: CONSTITUTIONAL: Denies fever or chills. HEENT: Denies blurred vision, vision changes, or eye pain. Denies hemoptysis CARDIOVASCULAR: Denies chest pain. Denies orthopnea. Denies PND. Denies palpitations RESPIRATORY: Denies shortness of breath. GASTROINTESTINAL: Denies abdominal pain. Denies nausea or vomiting. HEMATOLOGIC: Denies bleeding disorders. GENITOURINARY: Denies any blood in urine. SKIN: Denies pruitis. Denies rash. PHYSICAL EXAM: VITAL SIGNS: Reviewed. GENERAL: Well-developed in no acute distress. HEENT: Head is normocephalic. Pupils are equal, round. Sclerae anicteric. Mucous membranes of the mouth are moist. Neck supple. No JVD or thyromegaly LUNGS: Respirations even and unlabored. Lungs essentially clear to auscultation bilaterally. HEART: Regular rate and rhythm. S1 and S2 heard. ABDOMEN: Soft. Nondistended. Nontender. EXTREMITIES: Normal range of motion. No clubbing or cyanosis. Peripheral pulses intact. No lower extremity edema NEUROLOGIC: Awake and alert. Oriented x 3. ASSESSMENT: Dizziness Typical atrial flutter with RVR History of paroxysmal atrial fibrillation History of cardioversion in 2018 for atrial flutter History of aortic valve replacement History of mitral valve repair History of nonischemic cardiomyopathy with improving ejection fraction Chronic heart failure with preserved ejection fraction, currently euvolemic PLAN: Obtain 2-D echo to assess cardiac structure and function Check TSH Continue Coumadin. Monitor INR Discontinue IV Cardizem Continue Rythmol. Give an additional dose of 300 mg 1 now Continue telemetry monitoring May consider cardioversion Monitor for bradycardia. If no bradycardia noted, may begin beta dion tomorrow Further recommendations pending patient's course Nurse practitioner note has been reviewed by physician. Signing provider agrees with the documented findings, assessment, and plan of care. Past Medical History Past Medical History: Atrial Fibrillation, Heart Failure, COPD, GERD/Reflux, Osteoarthritis (OA), Renal Disease, Rheumatoid Arthritis (RA), Supraventricular Tachycardia (SVT), Thyroid Disorder Additional Past Medical History / Comment(s): Valvular heart disease with previous aortic valve replacement and a mitral valve repair, congestion heart failure, Paroxysmal Afib, history of SVT, history of nonsustained VT, SOB with exertion, home O2 at 2L/NC usually prn but lately ATC, arthritis, RA several joints, current L elbow pain/swelling-had "injection", nephrolithiasis, hypothyroid, diverticular dx, UTI, iron deficiency anemia. PAST [employer] HISTORY: She has no history of STDs. History of Any Multi-Drug Resistant Organisms: None Reported Past Surgical History: Coronary Bypass/CABG, Heart Catheterization, Hysterectomy, Joint Replacement, Orthopedic Surgery Additional Past Surgical History / Comment(s): Geoff total knees arthroplasty,lt hip arthroplasty, goiter removed 1962, partial thyroidectomy, cataracts removed with lens implants, REVERSE TOTAL RIGHT SHOULDER; Rotator cuff R shoulder, cervical fusion/injections, colonoscopy 2016(next after 5yr), MTATHEW, valve surger y at [facility] 10/13/17 Prosthetic Aortic valve and mitral valve repair. Total abdominal hysterectomy in the 1980s. Past Anesthesia/Blood Transfusion Reactions: Postoperative Nausea & Vomiting (PONV) Past Psychological History: No Psychological Hx Reported Additional Psychological History / Comment(s): Pt resides with her spouse in an apartment with no stairs. She used to drive but not since valve surgery. Her spouse is helpful and able to drive her to appts. She has home oxygen. She uses a walker to ambulate and has a cane. She also has a scale and B/P monitor. She has used VMA in the recent past. Smoking Status: Former smoker Past Alcohol Use History: Occasional Additional Past Alcohol Use History / Comment(s): She used to drink 2 glasses of wine per week but hasn't for months, quit smoking @age of 43, smoked 1ppd for 30 yrs. Past Drug Use History: None Reported - Past Family History Father Family Medical History: Cancer, Myocardial Infarction (SD) Additional Family Medical History / Comment(s): in his 80's of a mi. Colon cancer. Mother Family Medical History: No Reported History Additional Family Medical History / Comment(s): age 88 in shelter pt not sure what she from. hx smoking. Daughter(s) Family Medical History: Cancer Additional Family Medical History / Comment(s): from vulvar cancer. Medications and Allergies Home Medications Medication Instructions Recorded Confirmed Type HYDROcodone/APAP 10-325MG [[place] 0.5 tab PO Q8H PRN 11/27/17 06/06/22 History 10-325] Propafenone [Rythmol] 150 mg PO TID #90 tablet 01/30/18 06/06/22 Rx Albuterol Sulfate [Proair Hfa] 2 puff INHALATION RT-Q4H PRN 07/28/19 06/06/22 History Furosemide [Lasix] 20 mg PO DAILY 07/28/19 06/06/22 History Ascorbic Acid [Vitamin C] 500 mg PO BID 05/08/21 06/06/22 History Warfarin Sodium 2 mg PO PC-SUPPER 06/19/21 06/06/22 History Cholecalciferol (Vitamin D3) 125 mcg PO DAILY 06/06/22 06/06/22 History [Vitamin D3 (125 MCG = 5,000 IU)] Furosemide [Lasix] 20 mg PO DAILY@1600 PRN 06/06/22 06/06/22 History Ipratropium-Albuterol Nebulize 3 ml INHALATION RT-BID 06/06/22 06/06/22 History [Duoneb 0.5 mg-3 mg/3 ml Soln] Levothyroxine Sodium 150 mcg PO AC-BRKFST 06/06/22 06/06/22 History Potassium Chloride [Potassium 10 meq PO DAILY 06/06/22 06/06/22 History Chloride ER] Allergies Allergy/AdvReac Type Severity Reaction Status Date / Time lisinopril Allergy Unknown Verified 06/06/22 19:43 Physical Exam Vitals: Vital Signs Temp Pulse Pulse Resp BP BP Pulse Ox 06/07/22 08:40 96 06/07/22 08:28 96 06/07/22 08:00 98.4 F 86 17 108/54 94 L 06/07/22 04:00 63 18 104/61 93 L 06/07/22 02:00 65 18 06/07/22 00:00 97.5 F L 65 18 100/53 93 L 06/06/22 22:20 98.0 F 60 18 113/62 94 L 06/06/22 21:00 97.8 F 96 20 112/68 96 06/06/22 20:00 97.6 F 94 18 115/69 97 06/06/22 19:18 98.0 F 117 H 20 101/61 98 06/06/22 18:26 125 H 16 113/74 98 06/06/22 17:55 126 H 06/06/22 17:19 98.5 F 122 H 20 101/56 95 Intake and Output 06/06/22 06/07/22 06/07/22 22:59 06:59 14:59 Intake Total 240 Balance 240 Intake: Oral 240 Other: Voiding Method Toilet # Voids 1 1 Weight 48.988 kg Results 06/06/22 17:29 06/06/22 17:29 Cardiac Enzymes 06/06/22 06/06/22 06/06/22 Range/Units 17:29 17:29 20:47 AST 25 (14-36) U/L Troponin I <0.012 <0.012 (0.000-0.034) ng/mL 06/06/22 Range/Units 23:33 AST (14-36) U/L Troponin I <0.012 (0.000-0.034) ng/mL Coagulation 06/06/22 06/07/22 Range/Units 17:29 07:58 PT 19.9 H 20.9 H (9.0-12.0) sec CBC 06/06/22 Range/Units 17:29 WBC 6.5 (3.8-10.6) k/uL RBC 4.07 (3.80-5.40) m/uL Hgb 10.6 L (11.4-16.0) gm/dL Hct 34.5 (34.0-46.0) % Plt Count 236 (150-450) k/uL Comprehensive Metabolic Panel 06/06/22 Range/Units 17:29 Sodium 139 (137-145) mmol/L Potassium 3.6 (3.5-5.1) mmol/L Chloride 101 (98-107) mmol/L Carbon Dioxide 24 (22-30) mmol/L BUN 15 (7-17) mg/dL Creatinine 0.66 (0.52-1.04) mg/dL Glucose 107 H (74-99) mg/dL Calcium 9.0 (8.4-10.2) mg/dL AST 25 (14-36) U/L ALT 20 (4-34) U/L Alkaline Phosphatase 121 (38-126) U/L Total Protein 6.9 (6.3-8.2) g/dL Albumin 4.0 (3.5-5.0) g/dL Current Medications Generic Name Dose Route Start Last Admin Trade Name Freq PRN Reason Stop Dose Admin Hydrocodone Bitart/Acetaminophen 0.5 each 06/07/22 05:40 06/07/22 06:29 Hydrocodone/Apap 10-325mg 1 Each Tab PO 0.5 each Q8H PRN Administration Pain Albuterol Sulfate 2.5 mg 06/07/22 05:40 Albuterol Nebulized 2.5 Mg/3 Ml INHALATION RT-Q4H PRN Shortness Of Breath Albuterol/Ipratropium 3 ml 06/07/22 08:00 06/07/22 08:27 Ipratropium-Albuterol 3 Ml Neb INHALATION 3 ml RT-BID CARLOS Administration Ascorbic Acid 500 mg 06/07/22 09:00 06/07/22 08:43 Ascorbic Acid 500 Mg Tab PO 500 mg BID CARLOS Administration Cholecalciferol 125 mcg 06/07/22 09:00 06/07/22 08:43 Cholecalciferol 125 Mcg (5000 Iu) Tablet PO 125 mcg DAILY CARLOS Administration Famotidine 20 mg 06/08/22 09:00 Famotidine 20 Mg Tab PO DAILY CARLOS Furosemide 20 mg 06/07/22 16:00 Furosemide 20 Mg Tab PO DAILY@1600 PRN swelling Furosemide 20 mg 06/07/22 09:00 06/07/22 08:43 Furosemide 20 Mg Tab PO 20 mg DAILY CARLOS Administration Levothyroxine Sodium 150 mcg 06/07/22 06:30 06/07/22 06:36 Levothyroxine 75 Mcg Tab PO 150 mcg DAILY@0630 CARLOS Administration Miscellaneous Information 0 each 06/07/22 05:49 Warfarin Per Pharmacy MISCELLANE DIRECTED PRN PER PROTOCOL Naloxone HCl 0.2 mg 06/06/22 19:03 Naloxone 0.4 Mg/Ml 1 Ml Vial IV Q2M PRN Opioid Reversal Potassium Chloride 10 meq 06/07/22 09:00 06/07/22 08:43 Potassium Chloride Er 10 Meq Tab.Er.Prt PO 10 meq DAILY CARLOS Administration Propafenone HCl 150 mg 06/07/22 09:00 06/07/22 08:43 Propafenone 150 Mg Tab PO 150 mg TID CARLOS Administration Warfarin Sodium 2 mg 06/07/22 18:00 Warfarin 2 Mg Tab PO 06/07/22 18:01 ONCE@1800 ONE Intake and Output 06/06/22 06/07/22 06/07/22 22:59 06:59 14:59 Intake Total 240 Balance 240 Intake: Oral 240 Other: Voiding Method Toilet # Voids 1 1 Weight 48.988 kg 06/06/22 17:29 06/06/22 17:29
[2022-06-07 12:26] LABS: T4, Free (Free Thyroxine) 2.86 ng/dL (0.78-2.19)
[2022-06-07] MEDS ORDERED: FUROSEMIDE 20 MG TAB PO PRN (16:00)
[2022-06-07] MEDS ORDERED: WARFARIN 2 MG TAB PO ONE (18:00)
[2022-06-07] MEDS ORDERED: WARFARIN 2 MG TAB PO SCH (18:30)
--- NOTE | 2022-06-08 06:03 | P.PN ---
Subjective Progress Note Date: 06/08/22 Principal diagnosis: Atypical atrial flutter The patient is a pleasant 77-year-old female patient with valvular heart disease and history of aortic valve replacement and mitral valve repair as well as history of paroxysmal atrial fibrillation as well as multiple comorbid conditi ons was admitted to the hospital with atrial flutter which was typical with RVR. Subsequently she was started on Rythmol. Currently she is on anticoagulation was Coumadin. The patient was seen this morning. She continues to be in atrial fibrillation with overall controlled heart rate and heart rate and 180s per minutes. She is asymptomatic at this point. She is hemodynamically stable was marginally low blood pressure. She is in process of having an echocardiogram. From a cardiovascular standpoint of view, the patient potentially can be discharged home and follow-up with her orthotic fitter and continue oral anticoagulation. Cardioversion might be considered as an outpatient. Objective - Vital Signs Vital signs: Vital Signs Temp 97.9 F 06/08/22 04:00 Pulse 98 06/08/22 04:00 Resp 15 06/08/22 04:00 BP 102/68 06/08/22 04:00 Pulse Ox 93 L 06/08/22 04:00 FiO2 Intake & Output 06/07/22 06/07/22 06/08/22 06:59 18:59 06:59 Intake Total 1170 Balance 1170 Weight 48.988 kg Intake: Intake, IV Titration 10 Amount Diltiazem 125 mg In 10 Sodium Chloride 0.9% 100 ml @ 5 MG/HR 5 mls/hr IV .Q24H [facility] Rx#:[id number] Oral 1160 Other: Voiding Method Toilet Toilet Toilet # Voids 1 2 - Constitutional General appearance: Present: no acute distress - Respiratory Respiratory: bilateral: CTA - Cardiovascular Rhythm: irregularly irregular Abnormal Heart Sounds: Present: systolic murmur - Labs CBC & Chem 7: 06/06/22 17:29 06/06/22 17:29 Labs: Abnormal Lab Results - Last 24 Hours (Table) 06/07/22 06/07/22 Range/Units 07:58 07:58 PT 20.9 H (9.0-12.0) sec INR 2.1 H (<1.2) TSH 0.365 L (0.465-4.680) mIU/L Free T4 2.86 H (0.78-2.19) ng/dL Assessment and Plan Assessment: Assessment Atypical atrial flutter was controlled heart rate History of paroxysmal atrial fibrillation Valvular heart disease as described above Multiple comorbid conditions Plan Continue the current medical regimen including the current dose of Rythmol Consider cardioversion as an outpatient The patient potentially can be discharged home Follow-up with the echo
[2022-06-08] MEDS: LEVOTHYROXINE 75 MCG TAB PO SCH (07:04)
[2022-06-08] MEDS: IPRATROPIUM-ALBUTEROL 3 ML NEB INHALATION SCH (08:22)
[2022-06-08] MEDS: POTASSIUM CHLORIDE ER 10 MEQ TAB.ER.PRT PO SCH (08:52)
[2022-06-08] MEDS: ASCORBIC ACID 500 MG TAB PO SCH (08:52)
[2022-06-08] MEDS: CHOLECALCIFEROL 125 MCG (5000 IU) TABLET PO SCH (08:52)
[2022-06-08] MEDS: PROPAFENONE 150 MG TAB PO SCH (08:52)
[2022-06-08] MEDS: FUROSEMIDE 20 MG TAB PO SCH (08:52)
[2022-06-08] MEDS ORDERED: FAMOTIDINE 20 MG TAB PO SCH (09:00)
[2022-06-08 10:09] LABS: Basophils % (A) 1 %; Eosinophils # (A) 0.2 k/uL (0-0.7); Eosinophils % (A) 3 %; HCT 36.2 % (34.0-46.0); HGB 10.9 gm/dL (11.4-16.0); Hypochromasia Marked; Lymphocytes # (A) 1.6 k/uL (1.0-4.8); Lymphocytes % (A) 26 %; MCH 26.5 pg (25.0-35.0); MCHC 30.2 g/dL (31.0-37.0); MCV 87.7 fL (80.0-100.0); Mean Platelet Volume 8.4; Monocytes # (A) 0.4 k/uL (0-1.0); Monocytes % (A) 6 %; Neutrophils # (A) 3.6 k/uL (1.3-7.7); Neutrophils % (A) 61 %; Platelet Count 240 k/uL (150-450); RBC 4.13 m/uL (3.80-5.40); RDW 15.4 % (11.5-15.5); WBC 5.9 k/uL (3.8-10.6)
[2022-06-08 10:15] LABS: INR 1.9 (<1.2); Prothrombin Time 19.6 sec (9.0-12.0)
[2022-06-08 10:26] LABS: ALT 20 U/L (4-34); AST 25 U/L (14-36); African American GFR (CKD) >90 (>60 ml/min/1.73 sqM); Albumin 3.8 g/dL (3.5-5.0); Alkaline Phosphatase 117 U/L (38-126); Anion Gap 12 mmol/L; Blood Urea Nitrogen 15 mg/dL (7-17); Carbon Dioxide 25 mmol/L (22-30); Chloride 103 mmol/L (98-107); Glucose 93 mg/dL (74-99); Non-African American GFR(CKD) 83 (>60 ml/min/1.73 sqM); Potassium 3.9 mmol/L (3.5-5.1); Sodium 140 mmol/L (137-145); Total Protein 6.8 g/dL (6.3-8.2)
[2022-06-08 14:16] VITALS: PULSE 99; RESP 14
[2022-06-08 14:18] VITALS: BP 98/60; TEMP 97.6
--- NOTE | 2022-06-08 14:42 | P.DS ---
Providers Date of admission: 06/06/22 19:03 Expected date of discharge: 06/08/22 Attending physician: Olya Olson Consults: 06/06/22 19:03 Consult Physician Urgent Consulting Provider: Klaus Dove Consult Reason/Comments: A flutter with RVR, evaluate for CHF Do you want consulting provider notified?: Yes Primary care physician: Olya Olson [place] [facility] Course: Diagnosis on discharge: 1. Atrial flutter with rapid ventricular response 2. Acute on chronic systolic CHF exacerbation 3. History of atrial fibrillation maintained on Coumadin 4. History of COPD 5. History of valvular heart disease with history of aortic valve replacement with bioprosthetic valve and history of mitral valve repair in October 2017 6. History of rheumatoid arthritis 7. History of nonischemic cardiomyopathy Hospital course: This is a 68-year-old female patient who presented to the ER after concerns from PCP about elevated heart rate. Patient reports that she has been feeling off for the past few days with increased shortness of breath and weakness. Patient does have a past medical history of atrial fibrillation in which she is maintained on Coumadin. Patient denies any recent illness or infection. Additional medical history includes CHF, COPD, GERD, osteoarthritis, rheumatoid arthritis, thyroid disorder, coronary artery bypass graft surgery, SVT and iron deficiency anemia. Chest x-ray obtained in ER showing likely mild congestive heart failure. Pulmonary congestion increased compared to old exam. BNP elevated at 3450. Troponins negative 3. Patient was given IV Cardizem. Heart rate improved. 2-D echo and cardiology consult ordered. INR therapeutic at 2.0 pharmacy to dose Coumadin. Repeat labs ordered daily INR ordered. This time patient denies chest pain or shortness breath. Patient denies nausea vomiting or diarrhea. Patient denies any urinary burning or frequency On 06/08/2022 patient was seen and examined on the medical floor she is alert and oriented 3 in no apparent distress there is no fever or chills no headache or dizziness no chest pain no shortness of breath no cough no nausea or vomiting no abdominal pain no diarrhea no blood in the stools no burning with urination no frequency or urgency no hematuria, there is no weakness or numbness in any of the extremities no change in vision speech or gait. Patient was evaluated early this morning by cardiology and was cleared for discharge, she received extra doses of Rythmol during this admission and her heart rate is well-controlled at this time. During this admission TSH was low, and Synthroid dose was decreased from 150-137 g daily. Also INR with slow and Coumadin dose was increased from 20 mg to 2.5 mg daily. Will follow in the office in 2-3 days for further evaluation and treatment. Plan - Discharge Summary Discharge Rx Participant: No New Discharge Prescriptions: New Warfarin [Coumadin] 2.5 mg PO DAILY 30 Days #30 tab Levothyroxine Sodium [Synthroid] 137 mcg PO DAILY 30 Days #30 tab Continue HYDROcodone/APAP 10-325MG [[place] 10-325] 0.5 tab PO Q8H PRN PRN Reason: Pain Propafenone [Rythmol] 150 mg PO TID #90 tablet Albuterol Sulfate [Proair Hfa] 2 puff INHALATION RT-Q4H PRN PRN Reason: Shortness Of Breath Furosemide [Lasix] 20 mg PO DAILY Ascorbic Acid [Vitamin C] 500 mg PO BID Cholecalciferol (Vitamin D3) [Vitamin D3 (125 MCG = 5,000 IU)] 125 mcg PO DAILY Furosemide [Lasix] 20 mg PO DAILY@1600 PRN PRN Reason: swelling Ipratropium-Albuterol Nebulize [Duoneb 0.5 mg-3 mg/3 ml Soln] 3 ml INHALATION RT-BID Potassium Chloride [Potassium Chloride ER] 10 meq PO DAILY Discontinued Warfarin Sodium 2 mg PO PC-SUPPER Levothyroxine Sodium 150 mcg PO AC-BRKFST Discharge Medication List HYDROcodone/APAP 10-325MG [[place] 10-325] 0.5 tab PO Q8H PRN 11/27/17 [History] Propafenone [Rythmol] 150 mg PO TID #90 tablet 01/30/18 [Rx] Albuterol Sulfate [Proair Hfa] 2 puff INHALATION RT-Q4H PRN 07/28/19 [History] Furosemide [Lasix] 20 mg PO DAILY 07/28/19 [History] Ascorbic Acid [Vitamin C] 500 mg PO BID 05/08/21 [History] Cholecalciferol (Vitamin D3) [Vitamin D3 (125 MCG = 5,000 IU)] 125 mcg PO DAILY 06/06/22 [History] Furosemide [Lasix] 20 mg PO DAILY@1600 PRN 06/06/22 [History] Ipratropium-Albuterol Nebulize [Duoneb 0.5 mg-3 mg/3 ml Soln] 3 ml INHALATION RT-BID 06/06/22 [History] Potassium Chloride [Potassium Chloride ER] 10 meq PO DAILY 06/06/22 [History] Levothyroxine Sodium [Synthroid] 137 mcg PO DAILY 30 Days #30 tab 06/08/22 [Rx] Warfarin [Coumadin] 2.5 mg PO DAILY 30 Days #30 tab 06/08/22 [Rx] Follow up Appointment(s)/Referral(s): Olya Olson MD [Primary Care Provider] - 1-2 days
--- NOTE | 2022-06-08 16:04 | CA ---
Transthoracic Echo Report Name: Mirella San Age: 76 Gender: F : 1945 Exam Date: 06/07/2022 11:11 Exam Location: [facility] Ht (in): 60 Wt (lb): 108 Ordering Physician: Perla Zuniga Attending/Referring Phys: [id number], Nadia Meat Cutter Ana Neely, TERESSA Procedure CPT: Indications: LV function Cardiac Hx: Technical Quality: Good Contrast 1: Total Dose (mL): Contrast 2: Total Dose (mL): MEASUREMENTS (Male / Female) Normal Values 2D ECHO LV Diastolic Diameter PLAX 3.5 cm 4.2 - 5.9 / 3.9 - 5.3 cm LV Systolic Diameter PLAX 2.9 cm IVS Diastolic Thickness 1.3 cm 0.6 - 1.0 / 0.6 - 0.9 cm LVPW Diastolic Thickness 1.1 cm 0.6 - 1.0 / 0.6 - 0.9 cm LV Relative Wall Thickness 0.7 RV Internal Dim ED PLAX 4.1 cm LA Systolic Diameter LX 4.1 cm 3.0 - 4.0 / 2.7 - 3.8 cm LA Volume 72.0 cm??? 18 - 58 / 22 - 52 cm??? M-MODE Aortic Root Diameter MM 3.1 cm MV E Point Septal Separation 1.1 cm AV Cusp Separation MM 1.3 cm DOPPLER AV Peak Velocity 173.0 cm/s AV Peak Gradient 12.0 mmHg AV Mean Velocity 128.2 cm/s AV Mean Gradient 7.5 mmHg AV Velocity Time Integral 34.9 cm MV Area PHT 3.5 cm??? MV Deceleration Time 200.5 ms TR Peak Velocity 272.7 cm/s TR Peak Gradient 29.8 mmHg Right Ventricular Systolic Press 43.7 mmHg FINDINGS Left Ventricle Left ventricular ejection fraction is estimated at 35-40 %. Left ventricular cavity size normal. Mild concentric left ventricular hypertrophy. Moderately reduced global left ventricular systolic function. Right Ventricle Severe right ventricular dilatation. Mild pulmonary hypertension. Right Atrium Normal right atrial size. Left Atrium Mildly increased left atrial diameter. Moderately increased left atrial volume. Mildly increased left atrial area. No evidence for an atrial septal defect. Mitral Valve Moderate Mitral valve thickened. Moderate mitral annular calcification. Mild mitral regurgitation. MV repair Aortic Valve Trileaflet aortic valve. No aortic valve stenosis or regurgitation. Normal bioprostetic AOV Tricuspid Valve [id number] tricuspid regurgitation. Pulmonic Valve [id number] pulmonic regurgitation. Pericardium Normal pericardium. No pericardial effusion. Aorta Normal size aortic root and proximal ascending aorta. CONCLUSIONS Impaired LV function was EF around 40%. Mild LVH Severely dilated right ventricle. Mild pulmonary hypertension Bioprosthetic aortic valve Moderate to severe TR Previewed by: Dr. Klaus Dove MD (Electronically Signed) Final Date: 08 June 2022 16:04
[2022-06-08] MEDS ORDERED: WARFARIN 2.5 MG TAB PO ONE (18:00)
== END 2022-06-08 14:15 | disposition home or self-care (01) | DRG 308 ==
LOC: EC 16:52 → 3SCARD 19:03
PROVIDERS: ADMIT Internal Medicine; ATTEND Internal Medicine
DX: I48.4 Atypical atrial flutter (principal); I50.23 Acute on chronic systolic (congestive) heart failure; I42.8 Other cardiomyopathies; M06.9 Rheumatoid arthritis, unspecified; I45.10 Unspecified right bundle-branch block; I07.1 Rheumatic tricuspid insufficiency; I48.0 Paroxysmal atrial fibrillation; J44.9 Chronic obstructive pulmonary disease, unspecified; K21.9 Gastro-esophageal reflux disease without esophagitis; M19.90 Unspecified osteoarthritis, unspecified site; R22.32 Localized swelling, mass and lump, left upper limb; D50.9 Iron deficiency anemia, unspecified; R03.1 Nonspecific low blood-pressure reading; Z96.1 Presence of intraocular lens; Z99.81 Dependence on supplemental oxygen; Z95.2 Presence of prosthetic heart valve; E89.0 Postprocedural hypothyroidism; Z95.1 Presence of aortocoronary bypass graft; Z96.653 Presence of artificial knee joint, bilateral; Z96.611 Presence of right artificial shoulder joint; Z79.01 Long term (current) use of anticoagulants; Z98.42 Cataract extraction status, left eye; Z96.642 Presence of left artificial hip joint; Z98.41 Cataract extraction status, right eye; Z79.899 Other long term (current) drug therapy; Z79.890 Hormone replacement therapy; Z88.8 Allergy status to other drugs, medicaments and biological substances; Z87.891 Personal history of nicotine dependence; Z87.442 Personal history of urinary calculi; Z82.49 Family history of ischemic heart disease and other diseases of the circulatory system
CPT/HCPCS: 36415; 71046; 80053; 83880; 84439; 84443; 84484; 85025; 85610; 93005; 93306; 94640; 96365; 96366; 99285

== ENCOUNTER 2022-07-05 07:22 | Day surgery (SDC) | payer MEDICARE, OTHER ==
[~2022-07-05 07:22] MED LIST changes: -ALBUMIN HUMAN 25% 50 ML IV ONE; -ALBUMIN HUMAN 5% 500 ML IVPB ONE; -ASPIRIN 325 MG TAB PO ONE; -ATORVASTATIN 10 MG TAB PO ONE; -CALCIUM CHLORIDE 100 MG/ML 10 ML SYRINGE IV ONE; -CHLORHEXIDINE GLUCONATE 15 ML CUP MUCOUS MEM ONE; -CLEVIDIPINE BUTYRATE 25 MG in EMPTY BAG 1 BAG IV ONE; -DEXTROSE 5% IN WATER 1,000 ML with POTASSIUM CHLORIDE 110 MEQ, MAGNESIUM SULFATE 16 MEQ... IV ONE; -DEXTROSE 5% IN WATER 1,000 ML with POTASSIUM CHLORIDE 25 MEQ, SODIUM CHLORIDE 4MEQ/ML V... IV ONE; -HEPARIN SODIUM 1,000 UN/ML (10ML VL) IV ONE; -HEPARIN SODIUM,PORCINE 5,000 UNIT in SODIUM CHLORIDE 0.9% 500 ML IV ONE; -INSULIN REGULAR 100 UNIT in SODIUM CHLORIDE 0.9% 100 ML IV ONE; -LACTATED RINGERS 1,000 ML IV ONE; -MAGNESIUM SULFATE MG 500 MG/ML VIAL IV ONE; -MANNITOL 25% 12.5 GM/50 ML VIAL IV ONE; -METOPROLOL TARTRATE 12.5 MG TAB PO ONE; -MUPIROCIN 2% OINT 22 GM TUBE NASAL ONE; -NITROGLYCERIN SL TABS 0.4 MG TAB SUBLINGUAL ONE; -NITROGLYCERIN-D5W PMX 25 MG/250 ML BTL IV ONE; -NITROGLYCERIN-D5W PMX 50 MG in DEXTROSE/WATER 1 250ML.BAG IV ONE; -NOREPINEPHRIN 4 MG-0.9% NS PMX 4 MG/250 ML ML IV ONE; -PHENYLEPHRINE 40 MG in SODIUM CHLORIDE 0.9% 250 ML IV ONE; -PHENYLEPHRINE-0.9% NACL SYG 1 MG/10 ML SYRINGE IV ONE; -PROPOFOL 1,000 MG/100 ML VIAL IV ONE; -PROTAMINE SULFATE 10 MG/ML 25 ML VIAL IV ONE; -PROTAMINE SULFATE 250 MG in EMPTY BAG 1 BAG IV ONE; -SODIUM BICARB 8.4% 50 ML SYR (1 MEQ/ML) IV ONE; -SODIUM CHLORIDE 0.9% 1,000 ML IV ONE; +SODIUM CHLORIDE 0.9% 1,000 ML IV SCH; -TRANEXAMIC ACID 2,000 MG in SODIUM CHLORIDE 0.9% 180 ML IV ONE; -ceFAZolin 1,000 MG in SODIUM CHLORIDE 0.9% IRRIGATIO 1,000 ML IRRIGATION ONE; -ceFAZolin 2,000 MG in SODIUM CHLORIDE 0.9% 30 ML IVPB ONE
[2022-07-05] MEDS ORDERED: SODIUM CHLORIDE 0.9% 500 ML 500 ML IV ONE (07:42)
[2022-07-05 07:57] LABS: INR 2.7 (<1.2); Prothrombin Time 26.5 sec (9.0-12.0)
[2022-07-05 08:11] VITALS: RESP 16
[2022-07-05] MEDS ORDERED: LIDOCAINE 2% INJ 20 MG/ML (2 ML VIAL) ONE (08:16)
[2022-07-05] MEDS ORDERED: PROPOFOL 10 MG/ML 20 ML VIAL IV ONE (08:16)
[2022-07-05] MEDS ORDERED: SODIUM CHLORIDE 0.9% 1,000 ML IV SCH (09:00)
[2022-07-05] MEDS ORDERED: WARFARIN 2.5 MG TAB PO SCH (09:00)
[2022-07-05] MEDS ORDERED: POTASSIUM CHLORIDE 10 MEQ PO SCH (09:00)
[2022-07-05] MEDS ORDERED: PROPAFENONE 150 MG TAB PO SCH (09:00)
[2022-07-05] MEDS ORDERED: IV FLUID CONTINUATION 500 ML IV ONE ×2 (09:00)
--- NOTE | 2022-07-05 09:03 | P.PCN ---
Date of Procedure: 07/05/22 Description of Procedure: Indication: Atrial flutter Procedure Description: After explaining the procedure to the patient, it's risk and complications, blood pressure, heart rate and O2 saturation were monitored. The throat was sprayed with Cetacaine. Patient received sedation per anesthesia department. The probe was introduced into the esophagus without difficulty. Images were obtained. Following that, the probe was removed. There was no immediate complication. Findings: Left atrial size is mildly dilated, left atrial appendage is normal. Left ventricle size is normal. Global hypokinesis with ejection fraction of 40-45% was noted. A bioprosthetic aortic valve was noted with thickening of the leaflets. Mitral valve repair was noted. Tricuspid valve appears to be normal. Right atrium is dilated. Contrast bubble study revealed no shunting across the intra-atrial septum. No pericardial effusion was noted. Mild atherosclerotic changes of the descending thoracic aorta was noted. Doppler: Pulse wave and color Doppler were obtained, mild mitral with moderate tricuspid regurgitation and mild pulmonary hypertension. There was no shunting by color Doppler Conclusion: 1. Mildly dilated left atrium with normal appearance of the left atrial appendage 2. Moderately impaired left ventricle systolic function 3. Bioprosthetic aortic valve with no regurgitation and evidence of thickening of the leaflets 4. Mitral valve annuloplasty was mild regurgitation 5. Moderate tricuspid regurgitation with mild pulmonary hypertension 6. No shunting across the intra-atrial septum
--- NOTE | 2022-07-05 09:07 | P.PCN ---
Date of Procedure: 07/05/22 Description of Procedure: Procedure: Cardioversion Indication: Atrial flutter The procedure as well as the risks and the complications were discussed with the patient. Her blood pressure, heart rate and O2 saturation were monitored. After obtaining MATTHEW and obtaining sedated state by anesthesia department synchronized biphasic cardioversion using 150 J was performed with lutheran of sinus mechanism. There was no immediate complications.
[2022-07-05 09:13] VITALS: TEMP 97
[2022-07-05 11:02] VITALS: BP 104/56; PULSE 82
[2022-07-06] MEDS ORDERED: LEVOTHYROXINE 137 MCG TAB PO SCH (06:30)
== END 2022-07-05 10:59 | disposition home or self-care (01) ==
LOC: CATHCVL 07:22
PROVIDERS: ATTEND Internal Medicine Interventional Cardiology
DX: I48.3 Typical atrial flutter (principal); I27.20 Pulmonary hypertension, unspecified; I48.92 Unspecified atrial flutter; Z95.3 Presence of xenogenic heart valve
CPT/HCPCS: 93312; 93320; 93325; 92960; 85610; J2704; J2001

== ENCOUNTER 2022-09-06 13:01 | Emergency (ER) | payer MEDICARE, OTHER ==
[2022-09-06 13:22] VITALS: TEMP 97.9
--- NOTE | 2022-09-06 14:16 | ED ---
Extremity Problem HPI - General Source: patient, family, RN notes reviewed Mode of arrival: wheelchair Limitations: no limitations <Robert Knowles - Last Filed: 09/06/22 14:15> <Parth Weinberg - Last Filed: 09/06/22 20:13> <Farrah Woo - Last Filed: 09/07/22 01:52> - General Chief complaint: Extremity Problem,Nontraumatic Stated complaint: L. Leg Pain Time Seen by Provider: 09/06/22 14:15 - History of Present Illness Initial comments: 77-year-old female presents emergency Department chief complaint left leg pain. Patient states has been bothersome or last few days. Patient states she had no trauma. Patient states initially better just arthritis. She states it worse and had him placed normally ambulatory with a cane. Patient states she is on warfarin secondary to prior cardiac valve replacement. Patient denies any history DVT. Patient states she feels her leg is swollen. Patient denies any r ashes patient offers no complaints. (Robert Knowles) Patient is a 77-year-old female presenting with chief complaint of left leg pain. Pain is located in the upper thigh. Patient admits to pain with ambulation. No swelling. No injury or trauma. No history of DVT. Patient also admits to some slight shortness of breath. Patient states that she is out of breath easily when walking short distances. She also needs to sit up at night as she had shortness of breath with lying flat. No chest pain, palpitations, weakness, fever, chills, cough, congestion, sore throat, numbness, tingling, weakness, lower extremity swelling. (Parth Weinberg) - Related Data Home Medications Medication Instructions Recorded Confirmed HYDROcodone/APAP 10-325MG [[place] 1 tab PO Q8H PRN 11/27/17 09/06/22 10-325] Albuterol Sulfate [Proair Hfa] 2 puff INHALATION RT-Q4H PRN 07/28/19 09/06/22 Ascorbic Acid [Vitamin C] 500 mg PO BID 05/08/21 09/06/22 Cholecalciferol (Vitamin D3) 125 mcg PO DAILY 06/06/22 09/06/22 [Vitamin D3 (125 MCG = 5,000 IU)] Furosemide [Lasix] 20 mg PO BID PRN 06/06/22 09/06/22 Ipratropium-Albuterol Nebulize 3 ml INHALATION RT-HS 06/06/22 09/06/22 [Duoneb 0.5 mg-3 mg/3 ml Soln] Potassium Chloride [Potassium 10 meq PO DAILY 06/06/22 09/06/22 Chloride ER] Metoprolol Tartrate [Lopressor] 25 mg PO BID 09/06/22 09/06/22 Warfarin [Coumadin] 2 mg PO HS 09/06/22 09/06/22 Previous Rx's Medication Instructions Recorded Propafenone [Rythmol] 150 mg PO TID #90 tablet 01/30/18 Levothyroxine Sodium [Synthroid] 137 mcg PO DAILY 30 Days #30 tab 06/08/22 Allergies Allergy/AdvReac Type Severity Reaction Status Date / Time lisinopril Allergy Unknown Verified 09/06/22 17:04 Review of Systems ROS Other: All systems not noted in ROS Statement are negative. <Robert Knowles - Last Filed: 09/06/22 14:15> ROS Other: All systems not noted in ROS Statement are negative. <Parth Weinberg - Last Filed: 09/06/22 20:13> ROS Other: All systems not noted in ROS Statement are negative. <Farrah Woo - Last Filed: 09/07/22 01:52> ROS Statement: Those systems with pertinent positive or pertinent negative responses have been documented in the HPI. Past Medical History Past Medical History: Atrial Fibrillation, Heart Failure, COPD, GERD/Reflux, Osteoarthritis (OA), Renal Disease, Rheumatoid Arthritis (RA), Supraventricular Tachycardia (SVT), Thyroid Disorder Additional Past Medical History / Comment(s): Valvular heart disease with previous aortic valve replacement and a mitral valve repair, congestion heart failure, Paroxysmal Afib, history of SVT, history of nonsustained VT, SOB with exertion, home O2 at 2L/NC usually prn but lately ATC, arthritis, RA several joints, current L elbow pain/swelling-had "injection", nephrolithiasis, hypothyroid, diverticular dx, UTI, iron deficiency anemia. 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 History of Any Multi-Drug Resistant Organisms: None Reported Past Surgical History: Coronary Bypass/CABG, Heart Catheterization, Hysterectomy, Joint Replacement, Orthopedic Surgery Additional Past Surgical History / Comment(s): Geoff total knees arthroplasty,lt h ip arthroplasty, goiter removed 1962, partial thyroidectomy, cataracts removed with lens implants, REVERSE TOTAL RIGHT SHOULDER; Rotator cuff R shoulder, cervical fusion/injections, colonoscopy 2017(next after 5yr), MATTHEW, valve surgery at [facility] 10/13/17 Prosthetic Aortic valve and mitral valve repair. Total abdominal hysterectomy in the 1980s. Past Anesthesia/Blood Transfusion Reactions: Postoperative Nausea & Vomiting (PONV) Past Psychological History: No Psychological Hx Reported Smoking Status: Former smoker Past Alcohol Use History: Occasional Past Drug Use History: None Reported - Past Family History Father Family Medical History: Cancer, Myocardial Infarction (OK) Additional Family Medical History / Comment(s): in his 80's of a mi. Colon cancer. Mother Family Medical History: No Reported History Additional Family Medical History / Comment(s): age 88 in shelter pt not sure what she from. hx smoking. Daughter(s) Family Medical History: Cancer Additional Family Medical History / Comment(s): from vulvar cancer. <Robert Knowles - Last Filed: 09/06/22 14:15> General Exam Limitations: no limitations <Robert Knowles - Last Filed: 09/06/22 14:15> General appearance: alert, in no apparent distress Head exam: Present: atraumatic, normocephalic, normal inspection Eye exam: Present: normal appearance Neck exam: Present: normal inspection Respiratory exam: Present: normal lung sounds bilaterally. Absent: respiratory distress, wheezes, rales, rhonchi, stridor Cardiovascular Exam: Present: regular rate, normal rhythm, normal heart sounds. Absent: systolic murmur, diastolic murmur, rubs, gallop, clicks Extremities exam: Present: normal inspection. Absent: pedal edema, joint swelling Neurological exam: Present: alert, oriented X3, CN II-XII intact Psychiatric exam: Present: normal affect, normal mood Skin exam: Present: warm, dry, intact, normal color. Absent: rash <Parth Weinberg - Last Filed: 09/06/22 20:13> Course <Parth Weinberg - Last Filed: 09/06/22 20:13> Vital Signs 09/06/22 09/06/22 13:20 22:55 Temperature 97.9 F Pulse Rate 83 82 Respiratory 20 18 Rate Blood Pressure 101/60 111/73 O2 Sat by Pulse 94 L 95 Oximetry - Reevaluation(s) Reevaluation #1: Patient is signed out to Farrah Smyth PA-C, labs are pending 09/06/22 20:13 (Parth Weinberg) Medical Decision Making - Lab Data Result diagrams: 09/06/22 19:56 09/06/22 19:56 - Radiology Data Radiology results: report reviewed, image reviewed <Farrah Woo - Last Filed: 09/07/22 01:52> - Medical Decision Making This is a 77-year-old female who presents to the emergency department for left leg pain and shortness of breath. Was pt. sent in by a medical professional or institution? @ -No Did you speak to anyone other than the patient for history? @ -Her Did you review nursing and triage notes? @ -Agree, accurate with regards to the patient's symptoms. Were old charts reviewed? @ -No Differential Diagnosis? @ -Differential leg pain: DVT, CHF exacerbation, cellulitis, arterial insufficiency, osteoarthritis, this is not meant to be an all-inclusive list. Differential Dyspnea: Coronary syndrome, arrhythmia, tamponade, asthma, COPD, pulmonary embolism, pneumonia, pneumothorax, pulmonary effusion, anaphylaxis, diabetic ketoacidosis, flailed chest, pulmonary contusion, diaphragmatic rupture, anemia, neuromuscular, this is not meant to be an all-inclusive list. EKG interpreted by me (3pts min.)? @ -Junctional tachycardia. Ventricular rate 138 BPM, KS interval 121 ms, QRS duration 23 ms, QTC 297 ms. X-rays interpreted by me (1pt min.)? @ -My interpretation of the chest x-ray reveals cardiomegaly and pulmonary edema. What testing was considered but not performed? (CT, X-rays, U/S, labs)? Why? @ -We were going to proceed with a CTA of the chest due to the shortness of breath with an elevated d-dimer, however the patient declined at this time. What meds were considered but not given? Why? @ -None Did you discuss the management of the patient with other professionals? @ -No Did you reconcile home meds? @ -No Was smoking cessation discussed for >3mins.? @ -No Was critical care preformed (if so, how long)? @ -No Were there social determinants of health that impacted care today? How? (Homelessness, low income, unemployed, alcoholism, drug addiction, transp ortation, low edu. Level, literacy, decrease access to med. care, snf, rehab)? @ -No Was there de-escalation of care discussed even if they declined? (Discuss DNR or withdrawal of care, Hospice)? @ -No What co-morbidities impacted this encounter? (DM, HTN, Smoking, COPD, CAD, Cancer, CVA, Hep., AIDS, mental health diagnosis, sleep apnea, morbid obesity)? @ -Congestive heart failure, atrial fibrillation, rheumatoid arthritis, COPD, osteoarthritis, SVT. Was patient admitted / discharged? @ -Discharged. The patient was initially evaluated and treated by Parth Weinberg PA-C. The patient had been complaining of left leg pain and an ultrasound of the left lower extremity and x-ray of the hips and pelvis were obtained with no actionable findings such as a DVT or acute fractures. The patient was going to be discharged, and then she subsequently voiced concern of shortness of breath over the last few days. The case was then signed out to me at shift change. Prior to being signed out, lab work and a chest x-ray had been ordered. My interpretation of the chest x-ray is listed above and consistent with CHF. Lab work reveals an elevated BNP, however it is consistent with prior values. Her d-dimer is also mildly elevated. This was discussed with the patient, however when this was discussed, she had already been here for several hours and declined to proceed with a CTA of the chest to evaluate for possible PE. She is already taking warfarin. Strict return parameters were discussed and she was advised of the risks of a potential pulmonary embolus and potential consequences, including , if she were to be discharged without optimal management. Patient expresses understanding and requests discharge home. Drug Therapy requiring intensive monitoring for toxicity (Heparin, Nitro, Insulin, Cardizem)? @ -None Were any procedures done? @ -None Diagnosis/symptom? @ -Left leg pain Acute, or Chronic, or Acute on Chronic? @ -Acute Uncomplicated (without systemic symptoms) or Complicated (systemic symptoms)? @ -Uncomplicated Side effects of treatment? @ -No treatment administered Exacerbation, Progression, or Severe Exacerbation] @ -Not applicable Poses a threat to life or bodily function? @ -May impact bodily function depending on the severity of her symptoms. Diagnosis/symptom? @ -Dyspnea Acute, or Chronic, or Acute on Chronic? @ -Acute on chronic Uncomplicated (without systemic symptoms) or Complicated (systemic symptoms)? @ -Uncomplicated Side effects of treatment? @ -No treatment administered here Exacerbation, Progression, or Severe Exacerbation] @ -Mild exacerbation Poses a threat to life or bodily function? @ -May impact bodily function depending on the severity of her symptoms. Return precautions reviewed in depth, the patient is instructed to return to the emergency department with any new, worsening, or concerning symptoms. Patient verbalized understanding. This case was discussed in detail with the attending ED physician. Presentation, findings, and treatment plan discussed in detail as well. (Farrah Woo) - Lab Data Lab Results 09/06/22 09/06/22 09/06/22 Range/Units 19:56 19:56 19:56 WBC 7.0 (3.8-10.6) k/uL RBC 4.29 (3.80-5.40) m/uL Hgb 11.3 L (11.4-16.0) gm/dL Hct 35.7 (34.0-46.0) % MCV 83.1 (80.0-100.0) fL MCH 26.2 (25.0-35.0) pg MCHC 31.6 (31.0-37.0) g/dL RDW 16.4 H (11.5-15.5) % Plt Count 196 (150-450) k/uL MPV 9.0 Neutrophils % 59 % Lymphocytes % 26 % Monocytes % 6 % Eosinophils % 5 % Basophils % 1 % Neutrophils # 4.1 (1.3-7.7) k/uL Lymphocytes # 1.8 (1.0-4.8) k/uL Monocytes # 0.4 (0-1.0) k/uL Eosinophils # 0.3 (0-0.7) k/uL Basophils # 0.1 (0-0.2) k/uL Hypochromasia Marked Anisocytosis Slight PT 25.5 H (9.0-12.0) sec INR 2.6 H (<1.2) APTT 32.6 H (22.0-30.0) sec D-Dimer (<0.60) mg/L FEU Sodium 136 L (137-145) mmol/L Potassium 4.6 (3.5-5.1) mmol/L Chloride 107 (98-107) mmol/L Carbon Dioxide 25 (22-30) mmol/L Anion Gap 4 mmol/L BUN 21 H (7-17) mg/dL Creatinine 0.63 (0.52-1.04) mg/dL Est GFR (CKD-EPI)AfAm >90 (>60 ml/min/1.73 sqM) Est GFR (CKD-EPI)NonAf 86 (>60 ml/min/1.73 sqM) Glucose 88 (74-99) mg/dL Plasma Lactic Acid Wilfred (0.7-2.0) mmol/L Calcium 8.6 (8.4-10.2) mg/dL Total Bilirubin 1.1 (0.2-1.3) mg/dL AST 31 (14-36) U/L ALT 22 (4-34) U/L Alkaline Phosphatase 132 H (38-126) U/L Troponin I (0.000-0.034) ng/mL NT-Pro-B Natriuret Pep pg/mL Total Protein 6.7 (6.3-8.2) g/dL Albumin 3.6 (3.5-5.0) g/dL Influenza Type A (PCR) (Not Detectd) Influenza Type B (PCR) (Not Detectd) RSV (PCR) (Not Detectd) SARS-CoV-2 (PCR) (Not Detectd) 09/06/22 09/06/22 09/06/22 Range/Units 19:56 19:56 19:56 WBC (3.8-10.6) k/uL RBC (3.80-5.40) m/uL Hgb (11.4-16.0) gm/dL Hct (34.0-46.0) % MCV (80.0-100.0) fL MCH (25.0-35.0) pg MCHC (31.0-37.0) g/dL RDW (11.5-15.5) % Plt Count (150-450) k/uL MPV Neutrophils % % Lymphocytes % % Monocytes % % Eosinophils % % Basophils % % Neutrophils # (1.3-7.7) k/uL Lymphocytes # (1.0-4.8) k/uL Monocytes # (0-1.0) k/uL Eosinophils # (0-0.7) k/uL Basophils # (0-0.2) k/uL Hypochromasia Anisocytosis PT (9.0-12.0) sec INR (<1.2) APTT (22.0-30.0) sec D-Dimer (<0.60) mg/L FEU Sodium (137-145) mmol/L Potassium (3.5-5.1) mmol/L Chloride (98-107) mmol/L Carbon Dioxide (22-30) mmol/L Anion Gap mmol/L BUN (7-17) mg/dL Creatinine (0.52-1.04) mg/dL Est GFR (CKD-EPI)AfAm (>60 ml/min/1.73 sqM) Est GFR (CKD-EPI)NonAf (>60 ml/min/1.73 sqM) Glucose (74-99) mg/dL Plasma Lactic Acid Wilfred 1.2 (0.7-2.0) mmol/L Calcium (8.4-10.2) mg/dL Total Bilirubin (0.2-1.3) mg/dL AST (14-36) U/L ALT (4-34) U/L Alkaline Phosphatase (38-126) U/L Troponin I <0.012 (0.000-0.034) ng/mL NT-Pro-B Natriuret Pep 3660 pg/mL Total Protein (6.3-8.2) g/dL Albumin (3.5-5.0) g/dL Influenza Type A (PCR) (Not Detectd) Influenza Type B (PCR) (Not Detectd) RSV (PCR) (Not Detectd) SARS-CoV-2 (PCR) (Not Detectd) 09/06/22 09/06/22 Range/Units 19:56 21:02 WBC (3.8-10.6) k/uL RBC (3.80-5.40) m/uL Hgb (11.4-16.0) gm/dL Hct (34.0-46.0) % MCV (80.0-100.0) fL MCH (25.0-35.0) pg MCHC (31.0-37.0) g/dL RDW (11.5-15.5) % Plt Count (150-450) k/uL MPV Neutrophils % % Lymphocytes % % Monocytes % % Eosinophils % % Basophils % % Neutrophils # (1.3-7.7) k/uL Lymphocytes # (1.0-4.8) k/uL Monocytes # (0-1.0) k/uL Eosinophils # (0-0.7) k/uL Basophils # (0-0.2) k/uL Hypochromasia Anisocytosis PT (9.0-12.0) sec INR (<1.2) APTT (22.0-30.0) sec D-Dimer 1.50 H (<0.60) mg/L FEU Sodium (137-145) mmol/L Potassium (3.5-5.1) mmol/L Chloride (98-107) mmol/L Carbon Dioxide (22-30) mmol/L Anion Gap mmol/L BUN (7-17) mg/dL Creatinine (0.52-1.04) mg/dL Est GFR (CKD-EPI)AfAm (>60 ml/min/1.73 sqM) Est GFR (CKD-EPI)NonAf (>60 ml/min/1.73 sqM) Glucose (74-99) mg/dL Plasma Lactic Acid Wilfred (0.7-2.0) mmol/L Calcium (8.4-10.2) mg/dL Total Bilirubin (0.2-1.3) mg/dL AST (14-36) U/L ALT (4-34) U/L Alkaline Phosphatase (38-126) U/L Troponin I (0.000-0.034) ng/mL NT-Pro-B Natriuret Pep pg/mL Total Protein (6.3-8.2) g/dL Albumin (3.5-5.0) g/dL Influenza Type A (PCR) Not Detected (Not Detectd) Influenza Type B (PCR) Not Detected (Not Detectd) RSV (PCR) Not Detected (Not Detectd) SARS-CoV-2 (PCR) Not Detected (Not Detectd) Disposition <Robert Knowles - Last Filed: 09/06/22 14:15> <Parth Weinberg - Last Filed: 09/06/22 20:13> Is patient prescribed a controlled substance at d/c from ED?: No <BonniejaylenFarrah - Last Filed: 09/07/22 01:52> Clinical Impression: Dyspnea, Leg pain Disposition: HOME SELF-CARE Instructions (If sedation given, give patient instructions): Dyspnea (ED), Leg Pain (ED) Additional Instructions: Return to the emergency department with any new, worsening, or concerning symp toms. Please follow-up with Dr. Olson and your linux administrator regarding your symptoms. Referrals: Olya Olson MD [Primary Care Provider] - 1-2 days
--- NOTE | 2022-09-06 15:43 | XR ---
EXAMINATION TYPE: XR Hip LT and AP Pelvis DATE OF EXAM: 09/06/2022 3:19 PM INDICATION: Patient age:Female; 77 years old; Reason for study: pain; PHH. COMPARISON: Right hip radiograph 08/03/2018 TECHNIQUE: The left hip was examined in the frontal and lateral projections and a AP pelvis. FINDINGS: The bones are diffusely demineralized which limits evaluation. Postsurgical changes of both hip from arthroplasty. Hardware appears intact with appropriate alignment. No periprosthetic lucency . No acute fracture or dislocation. Multilevel degenerative changes of visualized spine. No soft tiss ue edema. IMPRESSION: 1. No acute osseous pathology. 2. Postsurgical arthroplasty changes of both hips. Hardware appears intact with appropriate alignmen t.
--- NOTE | 2022-09-06 16:01 | US ---
EXAMINATION TYPE: US venous doppler duplex LE LT DATE OF EXAM: 09/06/2022 3:54 PM COMPARISON: NONE CLINICAL HISTORY: pain. pain SIDE PERFORMED: Left TECHNIQUE: The lower extremity deep venous system is examined utilizing real time linear array sonog [place] with graded compression, doppler sonography and color-flow sonography. VESSELS IMAGED: Common Femoral Vein Deep Femoral Vein Greater Saphenous Vein * Femoral Vein Popliteal Vein Small Saphenous Vein * Proximal Calf Veins (* superficial vessels) Left Leg: Negative for DVT IMPRESSION: Grayscale, color doppler, spectral doppler imaging performed of the deep veins of the lo wer extremities. There is normal flow, compressibility, vascular waveforms.
[2022-09-06] MEDS ORDERED: LIDOCAINE 5% PATCH TOPICAL SCH (17:00)
--- NOTE | 2022-09-06 19:07 | XR ---
EXAMINATION TYPE: XR chest 2V DATE OF EXAM: 09/06/2022 COMPARISON: 06/06/2022 HISTORY: Difficulty breathing TECHNIQUE: FINDINGS: Heart is enlarged. There is pulmonary interstitial and airspace edema. There are sternal wi res. There is aortic valve surgery. There is mild blunting of the costophrenic angles. Thoracic spine is intact. IMPRESSION: There is congestive heart failure with increased pulmonary congestion compared to old ex am.
[2022-09-06 20:19] LABS: Anisocytosis Slight; Basophils # (A) 0.1 k/uL (0-0.2); Basophils % (A) 1 %; Eosinophils # (A) 0.3 k/uL (0-0.7); Eosinophils % (A) 5 %; HCT 35.7 % (34.0-46.0); HGB 11.3 gm/dL (11.4-16.0); Hypochromasia Marked; Lymphocytes # (A) 1.8 k/uL (1.0-4.8); Lymphocytes % (A) 26 %; MCH 26.2 pg (25.0-35.0); MCHC 31.6 g/dL (31.0-37.0); MCV 83.1 fL (80.0-100.0); Monocytes # (A) 0.4 k/uL (0-1.0); Monocytes % (A) 6 %; Neutrophils # (A) 4.1 k/uL (1.3-7.7); Neutrophils % (A) 59 %; Platelet Count 196 k/uL (150-450); RBC 4.29 m/uL (3.80-5.40); RDW 16.4 % (11.5-15.5)
[2022-09-06 20:29] LABS: INR 2.6 (<1.2); Partial Thromboplastin Time 32.6 sec (22.0-30.0); Prothrombin Time 25.5 sec (9.0-12.0)
[2022-09-06 20:33] LABS: ALT 22 U/L (4-34); AST 31 U/L (14-36); African American GFR (CKD) >90 (>60 ml/min/1.73 sqM); Albumin 3.6 g/dL (3.5-5.0); Alkaline Phosphatase 132 U/L (38-126); Anion Gap 4 mmol/L; Blood Urea Nitrogen 21 mg/dL (7-17); Calcium 8.6 mg/dL (8.4-10.2); Carbon Dioxide 25 mmol/L (22-30); Chloride 107 mmol/L (98-107); Glucose 88 mg/dL (74-99); Non-African American GFR(CKD) 86 (>60 ml/min/1.73 sqM); Potassium 4.6 mmol/L (3.5-5.1); Sodium 136 mmol/L (137-145); Total Bilirubin 1.1 mg/dL (0.2-1.3); Total Protein 6.7 g/dL (6.3-8.2)
[2022-09-06 22:56] VITALS: BP 111/73; PULSE 82; RESP 18
== END 2022-09-06 22:55 | disposition home or self-care (01) ==
LOC: EC 13:01
DX: M79.602 Pain in left arm (principal); R06.00 Dyspnea, unspecified; I48.91 Unspecified atrial fibrillation; I50.9 Heart failure, unspecified; J44.9 Chronic obstructive pulmonary disease, unspecified; M19.90 Unspecified osteoarthritis, unspecified site; Z87.891 Personal history of nicotine dependence; Z79.899 Other long term (current) drug therapy; Z88.8 Allergy status to other drugs, medicaments and biological substances; Z20.822 Contact with and (suspected) exposure to COVID-19
CPT/HCPCS: 36415; 71046; 73502; 80053; 83605; 83880; 84484; 85025; 85379; 85610; 85730; 87636; 93005; 99284

== ENCOUNTER 2022-12-03 16:41 | Observation (INO) | payer MEDICARE, OTHER ==
--- NOTE | 2022-12-03 18:06 | ED ---
General Adult HPI - General Source: patient, family Mode of arrival: wheelchair Limitations: no limitations <Eleonora Mccurdy - Last Filed: 12/03/22 18:10> <Parth Weinberg - Last Filed: 12/04/22 16:26> - General Chief complaint: Shortness of Breath Stated complaint: SOB Time Seen by Provider: 12/03/22 17:41 - History of Present Illness Initial comments: Patient is a 77-year-old female who presents to the emergency department for chest pain. Patient has had intermittent episodes of chest pain that lasts a couple minutes for the past 2-3 days. She describes it as a sharp pain in the center of her chest. It does non radiational, nonexertional. No numbness or tingling. Patient does report shortness of breath which is unchanged from her baseline. No extremity pain or swelling. She denies fever, chills, cough, cold-like symptoms. No abdominal pain, nausea, or vomiting. Patient has history of atrial fibrillation, atrial flutter, aortic valve replacement and MV repair in 2018, nonischemic cardiomyopathy, heart failure. She follows with Dr. Flores. She is on Coumadin. (Eleonora Mccurdy) - Related Data Home Medications Medication Instructions Recorded Confirmed HYDROcodone/APAP 10-325MG [[place] 1 tab PO Q8H PRN 11/27/17 12/03/22 10-325] Albuterol Sulfate [Proair Hfa] 2 puff INHALATION RT-Q6H PRN 07/28/19 12/03/22 Ascorbic Acid [Vitamin C] 500 mg PO DAILY 05/08/21 12/03/22 Cholecalciferol (Vitamin D3) 125 mcg PO DAILY 06/06/22 12/03/22 [Vitamin D3 (125 MCG = 5,000 IU)] Ipratropium-Albuterol Nebulize 3 ml INHALATION RT-Q6H PRN 06/06/22 12/03/22 [Duoneb 0.5 mg-3 mg/3 ml Soln] Metoprolol Tartrate [Lopressor] 25 mg PO BID 09/06/22 12/03/22 Previous Rx's Medication Instructions Recorded Levothyroxine Sodium [Synthroid] 137 mcg PO DAILY 30 Days #30 tab 06/08/22 Fluticasone Propion/Salmeterol 1 inhalation PO BID #1 each 12/04/22 [Advair 100-50 Diskus] Furosemide [Lasix] 40 mg PO DAILY #30 tab 12/04/22 Warfarin [Coumadin] 1.5 mg PO HS #30 dose 12/04/22 Allergies Allergy/AdvReac Type Severity Reaction Status Date / Time lisinopril Allergy Unknown Verified 12/03/22 20:22 Review of Systems ROS Other: All systems not noted in ROS Statement are negative. <Eleonora Mccurdy - Last Filed: 12/03/22 18:10> ROS Other: All systems not noted in ROS Statement are negative. <Parth Weinberg - Last Filed: 12/04/22 16:26> ROS Statement: Those systems with pertinent positive or pertinent negative responses have been documented in the HPI. Past Medical History Past Medical History: Atrial Fibrillation, Heart Failure, COPD, GERD/Reflux, Osteoarthritis (OA), Renal Disease, Rheumatoid Arthritis (RA), Supraventricular Tachycardia (SVT), Thyroid Disorder Additional Past Medical History / Comment(s): Valvular heart disease with previous aortic valve replacement and a mitral valve repair, congestion heart failure, Paroxysmal Afib, history of SVT, history of nonsustained VT, SOB with exertion, home O2 at 2L/NC usually prn but lately ATC, arthritis, RA several joints, current L elbow pain/swelling-had "injection", nephrolithiasis, hypothyroid, diverticular dx, UTI, iron deficiency anemia. 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 History of Any Multi-Drug Resistant Organisms: None Reported Past Surgical History: Coronary Bypass/CABG, Heart Catheterization, Hysterectomy, Joint Replacement, Orthopedic Surgery Additional Past Surgical History / Comment(s): Geoff total knees arthroplasty,lt hip arthroplasty, goiter removed 1962, partial thyroidectomy, cataracts removed with lens implants, REVERSE TOTAL RIGHT SHOULDER; Rotator cuff R shoulder, cervical fusion/injections, colonoscopy 2016(next after 5yr), [place], valve surgery at [facility] 10/13/17 Prosthetic Aortic valve and mitral valve repair. Total abdominal hysterectomy in the 1980s. Past Anesthesia/Blood Transfusion Reactions: Postoperative Nausea & Vomiting (PONV) Past Psychological History: No Psychological Hx Reported Smoking Status: Never smoker Past Alcohol Use History: Occasional Past Drug Use History: None Reported - Past Family History Father Family Medical History: Cancer, Myocardial Infarction (DC) Additional Family Medical History / Comment(s): in his 80's of a mi. Colon cancer. Mother Family Medical History: No Reported History Additional Family Medical History / Comment(s): age 88 . hx smoking. Daughter(s) Family Medical History: Cancer Additional Family Medical History / Comment(s): from vulvar cancer. <Eleonora Mccurdy - Last Filed: 12/03/22 18:10> General Exam Limitations: no limitations <Eleonora Mccurdy - Last Filed: 12/03/22 18:10> Limitations: no limitations General appearance: alert, in no apparent distress Head exam: Present: atraumatic, normocephalic, normal inspection Eye exam: Present: normal appearance Neck exam: Present: normal inspection Respiratory exam: Present: normal lung sounds bilaterally. Absent: respiratory distress, wheezes, rales, rhonchi, stridor Cardiovascular Exam: Present: regular rate, normal rhythm, normal heart sounds. Absent: systolic murmur, diastolic murmur, rubs, gallop, clicks Neurological exam: Present: alert, oriented X3, CN II-XII intact Psychiatric exam: Present: normal affect, normal mood Skin exam: Present: warm, dry, intact, normal color. Absent: rash <Parth Weinberg - Last Filed: 12/04/22 16:26> - General Exam Comments Initial Comments: Visual Physical Exam Vital signs reviewed General: Well-appearing, nontoxic, no acute distress. Head: Normocephalic, atraumatic Eyes: PERRLA, EOMI ENT: Airway patent Chest: Nonlabored breathing Skin: No visual rash, normal skin tone Neuro: Alert and oriented 3 Musculoskeletal: No gross abnormalities (Eleonora Mccurdy) Course Vital Signs 12/03/22 12/03/22 17:08 20:27 Temperature 98.4 F 98.1 F Pulse Rate 84 92 Respiratory 20 18 Rate Blood Pressure 93/58 101/77 O2 Sat by Pulse 95 96 Oximetry EKG Findings - EKG Comments: EKG Findings:: Atrial fibrillation ventricular rate 81. QRS 103. QT 392. QTC 429. Borderline right axis deviation. Incomplete right bundle branch block. <Parth Weinberg - Last Filed: 12/04/22 16:26> Medical Decision Making - Lab Data Result diagrams: 12/03/22 20:06 12/03/22 20:06 <Parth Weinberg - Last Filed: 12/04/22 16:26> - Medical Decision Making Was pt. sent in by a medical professional or institution (, PA, RECREATION FACILITY ATTENDANT, urgent care, hospital, or shelter...) When possible be specific @ -No Did you speak to anyone other than the patient for history (EMS, parent, family, police, friend...)? What history was obtained from this source @ -No Did you review nursing and triage notes (agree or disagree)? Why? @ -I reviewed and agree with nursing and triage notes Were old charts reviewed (outside hosp., previous admission, EMS record, old EKG, old radiological studies, urgent care reports/EKG's, shelter records)? Report findings @ -No old charts were reviewed Differential Diagnosis (chest pain, altered mental status, abdominal pain women, abdominal pain men, vaginal bleeding, weakness, fever, dyspnea, syncope, headache, dizziness, GI bleed, back pain, seizure, CVA, palpatations, mental health, musculoskeletal)? @ -MDM Differential Chest Pain: Stable Angina, Unstable Angina, STEMI, NSTEMI Aortic Dissection, Pneumothorax, Musculoskeletal, Esophageal Spasm GERD, Cholecystitis, Pancreatitis, Zoster This is not meant to be an all-inclusive list. EKG interpreted by me (3pts min.). @ -As above X-rays interpreted by me (1pt min.). @ -Chest x-ray shows no acute cardiopulmonary disease process, there is some cardiomegaly CT interpreted by me (1pt min.). @ -None done U/S interpreted by me (1pt. min.). @ -None done What testing was considered but not performed or refused? (CT, X-rays, U/S, labs)? Why? @ -None What meds were considered but not given or refused? Why? @ -None Did you discuss the management of the patient with other professionals (professionals i.e. , DOC, RECREATION FACILITY ATTENDANT, lab, RT, psych nurse, director social service, fish and game warden, teacher, field artillery officer, case consultant)? Give summary @ -No Was smoking cessation discussed for >3mins.? @ -No Was critical care preformed (if so, how long)? @ -No Were there social determinants of health that impacted care today? How? (Homelessness, low income, unemployed, alcoholism, drug addiction, transportation, low edu. Level, literacy, decrease access to med. care, detention, rehab)? @ -No Was there de-escalation of care discussed even if they declined (Discuss DNR or withdrawal of care, Hospice)? DNR status @ -No What co-morbidities impacted this encounter? (DM, HTN, Smoking, COPD, CAD, Cancer, CVA, ARF, Chemo, Hep., AIDS, mental health diagnosis, sleep apnea, morbid obesity)? @ -Atrial fibrillation, heart failure, COPD, valvular disease Was patient admitted / discharged? Hospital course, mention meds given and route, prescriptions, significant lab abnormalities, going to OR and other pertinent info. @ -Patient is a 77-year-old female presenting with chief complaint of chest pain and shortness of breath. Symptoms have been intermittent over the last 2-3 days. On physical examination heart and lungs are clear to auscultation, no acute signs of distress. Lab work shows no leukocytosis or anemia. Troponin is negative. BNP is mildly elevated at 2650, patient has had higher values in the past. Chest x-ray shows no acute process. She is negative for Covid. Patient would benefit from observation and cardiology evaluation morning. I spoke with the KEITH from [facility] hospitalist group who accepted admission. Patient is agreeable with this plan. I discussed this case with my attending Dr. Carmona Undiagnosed new problem with uncertain prognosis? @ -No Drug Therapy requiring intensive monitoring for toxicity (Heparin, Nitro, Insulin, Cardizem)? @ -No Were any procedures done? @ -No Diagnosis/symptom? @ -Chest pain Acute, or Chronic, or Acute on Chronic? @ -Acute Uncomplicated (without systemic symptoms) or Complicated (systemic symptoms)? @ -Complicated Side effects of treatment? @ -No Exacerbation, Progression, or Severe Exacerbation? @ -No Poses a threat to life or bodily function? How? (Chest pain, USA, DC, pneumonia, PE, COPD, DKA, ARF, appy, cholecystitis, CVA, Diverticulitis, Homicidal, Suicidal, threat to staff... and all critical care pts) @ -yes (Parth Weinberg) - Lab Data Lab Results 12/03/22 12/03/22 12/03/22 Range/Units 20:06 20:06 20:06 WBC 7.3 (3.8-10.6) k/uL RBC 4.38 (3.80-5.40) m/uL Hgb 11.5 (11.4-16.0) gm/dL Hct 37.4 (34.0-46.0) % MCV 85.5 (80.0-100.0) fL MCH 26.3 (25.0-35.0) pg MCHC 30.8 L (31.0-37.0) g/dL RDW 18.7 H (11.5-15.5) % Plt Count 181 (150-450) k/uL MPV 8.5 Neutrophils % 65 % Lymphocytes % 22 % Monocytes % 5 % Eosinophils % 3 % Basophils % 1 % Neutrophils # 4.7 (1.3-7.7) k/uL Lymphocytes # 1.6 (1.0-4.8) k/uL Monocytes # 0.4 (0-1.0) k/uL Eosinophils # 0.2 (0-0.7) k/uL Basophils # 0.0 (0-0.2) k/uL Hypochromasia Slight Anisocytosis Slight PT 45.6 H (9.0-12.0) sec INR 4.6 H (<1.2) APTT 40.0 H (22.0-30.0) sec Sodium 139 (137-145) mmol/L Potassium 4.1 (3.5-5.1) mmol/L Chloride 102 (98-107) mmol/L Carbon Dioxide 28 (22-30) mmol/L Anion Gap 9 mmol/L BUN 23 H (7-17) mg/dL Creatinine 0.80 (0.52-1.04) mg/dL Est GFR (CKD-EPI)AfAm 81 (>60 ml/min/1.73 sqM) Est GFR (CKD-EPI)NonAf 71 (>60 ml/min/1.73 sqM) Glucose 113 H (74-99) mg/dL Calcium 8.9 (8.4-10.2) mg/dL Total Bilirubin 1.2 (0.2-1.3) mg/dL AST 29 (14-36) U/L ALT 22 (4-34) U/L Alkaline Phosphatase 155 H (38-126) U/L Troponin I (0.000-0.034) ng/mL NT-Pro-B Natriuret Pep pg/mL Total Protein 7.1 (6.3-8.2) g/dL Albumin 3.9 (3.5-5.0) g/dL Urine Color Urine Appearance (Clear) Urine pH (5.0-8.0) Ur Specific [place] (1.001-1.035) Urine Protein (Negative) Urine Glucose (UA) (Negative) Urine Ketones (Negative) Urine Blood (Negative) Urine Nitrite (Negative) Urine Bilirubin (Negative) Urine Urobilinogen (<2.0) mg/dL Ur Leukocyte Esterase (Negative) Urine RBC (0-5) /hpf Urine WBC (0-5) /hpf Ur Squamous Epith Cells (0-4) /hpf Urine Bacteria (None) /hpf Urine Mucus (None) /hpf Coronavirus (PCR) (Not Detectd) 12/03/22 12/03/22 12/03/22 Range/Units 20:06 20:06 20:18 WBC (3.8-10.6) k/uL RBC (3.80-5.40) m/uL Hgb (11.4-16.0) gm/dL Hct (34.0-46.0) % MCV (80.0-100.0) fL MCH (25.0-35.0) pg MCHC (31.0-37.0) g/dL RDW (11.5-15.5) % Plt Count (150-450) k/uL MPV Neutrophils % % Lymphocytes % % Monocytes % % Eosinophils % % Basophils % % Neutrophils # (1.3-7.7) k/uL Lymphocytes # (1.0-4.8) k/uL Monocytes # (0-1.0) k/uL Eosinophils # (0-0.7) k/uL Basophils # (0-0.2) k/uL Hypochromasia Anisocytosis PT (9.0-12.0) sec INR (<1.2) APTT (22.0-30.0) sec Sodium (137-145) mmol/L Potassium (3.5-5.1) mmol/L Chloride (98-107) mmol/L Carbon Dioxide (22-30) mmol/L Anion Gap mmol/L BUN (7-17) mg/dL Creatinine (0.52-1.04) mg/dL Est GFR (CKD-EPI)AfAm (>60 ml/min/1.73 sqM) Est GFR (CKD-EPI)NonAf (>60 ml/min/1.73 sqM) Glucose (74-99) mg/dL Calcium (8.4-10.2) mg/dL Total Bilirubin (0.2-1.3) mg/dL AST (14-36) U/L ALT (4-34) U/L Alkaline Phosphatase (38-126) U/L Troponin I <0.012 (0.000-0.034) ng/mL NT-Pro-B Natriuret Pep 2650 pg/mL Total Protein (6.3-8.2) g/dL Albumin (3.5-5.0) g/dL Urine Color Urine Appearance (Clear) Urine pH (5.0-8.0) Ur Specific [place] (1.001-1.035) Urine Protein (Negative) Urine Glucose (UA) (Negative) Urine Ketones (Negative) Urine Blood (Negative) Urine Nitrite (Negative) Urine Bilirubin (Negative) Urine Urobilinogen (<2.0) mg/dL Ur Leukocyte Esterase (Negative) Urine RBC (0-5) /hpf Urine WBC (0-5) /hpf Ur Squamous Epith Cells (0-4) /hpf Urine Bacteria (None) /hpf Urine Mucus (None) /hpf Coronavirus (PCR) Not Detected (Not Detectd) 12/03/22 Range/Units 22:43 WBC (3.8-10.6) k/uL RBC (3.80-5.40) m/uL Hgb (11.4-16.0) gm/dL Hct (34.0-46.0) % MCV (80.0-100.0) fL MCH (25.0-35.0) pg MCHC (31.0-37.0) g/dL RDW (11.5-15.5) % Plt Count (150-450) k/uL MPV Neutrophils % % Lymphocytes % % Monocytes % % Eosinophils % % Basophils % % Neutrophils # (1.3-7.7) k/uL Lymphocytes # (1.0-4.8) k/uL Monocytes # (0-1.0) k/uL Eosinophils # (0-0.7) k/uL Basophils # (0-0.2) k/uL Hypochromasia Anisocytosis PT (9.0-12.0) sec INR (<1.2) APTT (22.0-30.0) sec Sodium (137-145) mmol/L Potassium (3.5-5.1) mmol/L Chloride (98-107) mmol/L Carbon Dioxide (22-30) mmol/L Anion Gap mmol/L BUN (7-17) mg/dL Creatinine (0.52-1.04) mg/dL Est GFR (CKD-EPI)AfAm (>60 ml/min/1.73 sqM) Est GFR (CKD-EPI)NonAf (>60 ml/min/1.73 sqM) Glucose (74-99) mg/dL Calcium (8.4-10.2) mg/dL Total Bilirubin (0.2-1.3) mg/dL AST (14-36) U/L ALT (4-34) U/L Alkaline Phosphatase (38-126) U/L Troponin I (0.000-0.034) ng/mL NT-Pro-B Natriuret Pep pg/mL Total Protein (6.3-8.2) g/dL Albumin (3.5-5.0) g/dL Urine Color Yellow Urine Appearance Clear (Clear) Urine pH 7.0 (5.0-8.0) Ur Specific [place] 1.012 (1.001-1.035) Urine Protein Negative (Negative) Urine Glucose (UA) Negative (Negative) Urine Ketones Negative (Negative) Urine Blood Trace H (Negative) Urine Nitrite Negative (Negative) Urine Bilirubin Negative (Negative) Urine Urobilinogen <2.0 (<2.0) mg/dL Ur Leukocyte Esterase Negative (Negative) Urine RBC 3 (0-5) /hpf Urine WBC 2 (0-5) /hpf Ur Squamous Epith Cells <1 (0-4) /hpf Urine Bacteria Rare H (None) /hpf Urine Mucus Rare H (None) /hpf Coronavirus (PCR) (Not Detectd) Disposition <Eleonora Mccurdy - Last Filed: 12/03/22 18:10> Time of Disposition: 22:46 <Parth Weinberg - Last Filed: 12/04/22 16:26> Clinical Impression: Chest pain Disposition: ADMITTED IP TO THIS [facility] Condition: Stable
--- NOTE | 2022-12-03 18:29 | XR ---
EXAMINATION TYPE: XR chest 2V DATE OF EXAM: 12/03/2022 6:00 PM COMPARISON: Chest radiographs from 09/06/2022 TECHNIQUE: XR chest 2V Frontal and lateral views of the chest. CLINICAL INDICATION:Female, 77 years old with history of chest pain; FINDINGS: Lungs/Pleura: There is no evidence of pleural effusion, focal consolidation, or pneumothorax. Pulmonary vascularity: Unremarkable. Heart/mediastinum: Cardiomediastinal silhouette is enlarged and stable. Post aortic valve repair patrica nges. Left atrial appendage occlusion device is present. Musculoskeletal: No acute osseous pathology. Right shoulder arthroplasty changes. IMPRESSION: 1. No acute cardiopulmonary disease/process. 2. Cardiomegaly
[2022-12-03] MEDS ORDERED: SODIUM CHLORIDE 0.9% 500 ML 500 ML IV ONE (19:49)
[2022-12-03 20:34] LABS: INR 4.6 (<1.2); Prothrombin Time 45.6 sec (9.0-12.0)
[2022-12-03 20:37] LABS: Albumin 3.9 g/dL (3.5-5.0); Calcium 8.9 mg/dL (8.4-10.2); Potassium 4.1 mmol/L (3.5-5.1); Total Bilirubin 1.2 mg/dL (0.2-1.3); Total Protein 7.1 g/dL (6.3-8.2)
[2022-12-03 20:39] LABS: Anisocytosis Slight; Basophils % (A) 1 %; Eosinophils # (A) 0.2 k/uL (0-0.7); Eosinophils % (A) 3 %; HCT 37.4 % (34.0-46.0); HGB 11.5 gm/dL (11.4-16.0); Hypochromasia Slight; Lymphocytes # (A) 1.6 k/uL (1.0-4.8); Lymphocytes % (A) 22 %; MCH 26.3 pg (25.0-35.0); MCHC 30.8 g/dL (31.0-37.0); MCV 85.5 fL (80.0-100.0); Mean Platelet Volume 8.5; Monocytes # (A) 0.4 k/uL (0-1.0); Monocytes % (A) 5 %; Neutrophils # (A) 4.7 k/uL (1.3-7.7); Neutrophils % (A) 65 %; Platelet Count 181 k/uL (150-450); RBC 4.38 m/uL (3.80-5.40); RDW 18.7 % (11.5-15.5); WBC 7.3 k/uL (3.8-10.6)
[2022-12-03] MEDS ORDERED: NALOXONE 0.4 MG/ML 1 ML VIAL IV PRN (22:43)
[2022-12-03] MEDS ORDERED: SODIUM CHLORIDE 0.9% 1,000 ML IV SCH (22:45)
[2022-12-03 23:27] LABS: Appearance,Urine Clear (Clear); Bacteria,Urine Rare /hpf; Bilirubin,Urine Negative (Negative); Blood,Urine Trace (Negative); Color,Urine Yellow; Glucose,Urine (UA) Negative (Negative); Ketones,Urine Negative (Negative); Leukocyte Esterase,Urine Negative (Negative); Mucus,Urine Rare /hpf; Nitrite,Urine Negative (Negative); Protein,Urine Negative (Negative); RBC,Urine 3 /hpf (0-5); Specific Gravity,Urine 1.012 (1.001-1.035); Squamous Epithelial Cell,Urine <1 /hpf (0-4); Urobilinogen,Urine <2.0 mg/dL (<2.0); WBC,Urine 2 /hpf (0-5)
[2022-12-04] MEDS ORDERED: ALBUTEROL NEBULIZED 2.5 MG/3 ML INHALATION PRN (07:22)
[2022-12-04] MEDS ORDERED: HYDROcodone/APAP 10-325MG 1 EACH TAB PO PRN (07:22)
[2022-12-04] MEDS ORDERED: IPRATROPIUM-ALBUTEROL 3 ML NEB INHALATION PRN (07:22)
[2022-12-04] MEDS ORDERED: ACETAMINOPHEN TAB 325 MG TAB PO PRN (07:23)
[2022-12-04] MEDS ORDERED: ONDANSETRON 4 MG/2 ML VIAL IVP PRN (07:23)
[2022-12-04] MEDS ORDERED: IPRATROPIUM 0.5 MG/2.5 ML NEBU INHALATION PRN (07:37)
[2022-12-04 08:11] VITALS: BP 98/64; PULSE 85; RESP 16; TEMP 97.5
--- NOTE | 2022-12-04 08:59 | P.CRDCN ---
History of Present Illness Consult date: 12/04/22 Consult reason: chest pain History of present illness: HISTORY OF PRESENT ILLNESS: This is a 77-year-old female with a past medical history significant for atrial fibrillation/A flutter, aortic valve replacement and MV repair in 2018, and non ischemic cardiomyopathy with improving EF. Patient follows in the office with Dr. Flores. We have been asked to see the patient in consultation for chest pain. Patient was last seen in the office on 11/15 and at that time was in atrial flutter with controlled rate, plan was to obtain echocardiogram, 24-hour Holter monitor lab work prior to next visit. Patient was instructed to increase furosemide to twice daily for 1 week and propafenone was discontinued. Patient presented to the hospital due to chest pain that was intermittent as well as shortness of breath. Patient does have chronic shortness of breath seemed to be more so than her usual. No lower extremity edema. No fever or chills. No cough. Pain was in the center of her chest comes and goes * EKG reveals atrial fibrillation with controlled rate. * Chest xray no acute process. Cardiomegaly. * Laboratory data: WBC 7.3, hemoglobin 11.5, platelet count 181. INR is 4.6. Sodium 139, potassium 4.1, BUN 9, creatinine 0.23. Blood sugar 113. Alkaline phosphatase 155 otherwise liver function tests are normal. Troponin negative 3. ProBNP 2650. Menendez virus not detected. * Current home cardiac medications include Lasix 20 mg daily, levothyroxine 137 g daily, Lopressor 25 mg twice daily, Coumadin 2 mg at bedtime * Most recent echocardiogram obtained in June 2022 revealed ejection fraction 40%, mild LVH. Severely dilated right ventricle. Mild pulmonary hypertension. Bioprosthetic aortic valve. Moderate to severe TR. * Cardiac catheterization history: 2018 revealing normal coronary arteries REVIEW OF SYSTEMS: At the time of my exam: CONSTITUTIONAL: Denies fever or chills. HEENT: Denies blurred vision, vision changes, or eye pain. Denies hemoptysis CARDIOVASCULAR: Denies chest pain. Denies orthopnea. Denies PND. Denies palpitations RESPIRATORY: Reports dyspnea on exertion. GASTROINTESTINAL: Denies abdominal pain. Denies nausea or vomiting. HEMATOLOGIC: Denies bleeding disorders. GENITOURINARY: Denies any blood in urine. SKIN: Denies pruitis. Denies rash. PHYSICAL EXAM: VITAL SIGNS: Reviewed. GENERAL: Well-developed in no acute distress. HEENT: Head is normocephalic. Pupils are equal, round. Sclerae anicteric. Mucous membranes of the mouth are moist. Neck supple. No JVD or thyromegaly LUNGS: Respirations even and unlabored. Lungs essentially clear to auscultation bilaterally. HEART: Regular rate and rhythm. S1 and S2 heard. 3/6 systolic ejection murmur at the base, 2/6 holosystolic murmur at the apex. ABDOMEN: Soft. Nondistended. Nontender. EXTREMITIES: Normal range of motion. No clubbing or cyanosis. Peripheral pulses intact. No lower extremity edema NEUROLOGIC: Awake and alert. Oriented x 3. ASSESSMENT: Exertional shortness of breath most likely secondary to valvular heart disease Chest pain, acute coronary syndrome ruled out Persistent atrial fibrillation Typical atrial flutter with controlled rate Paroxysmal atrial fibrillation History of cardioversion in 2018 for atrial flutter History of aortic valve replacement History of mitral valve repair History of nonischemic cardiomyopathy Chronic systolic heart failure, currently euvolemic PLAN: Resume patient's home cardiac medications Discontinue Rythmol as this was discontinued in the office on 11/15 Increase Lasix to 40 mg daily Patient is cleared for discharge home. No further cardiac worrkup. Patient to follow up with Dr. Flores in 2 weeks. Further recommendations pending patient's course Nurse practitioner note has been reviewed by physician. Signing provider agrees with the documented findings, assessment, and plan of care. Past Medical History Past Medical History: Atrial Fibrillation, Heart Failure, COPD, GERD/Reflux, Osteoarthritis (OA), Renal Disease, Rheumatoid Arthritis (RA), Supraventricular Tachycardia (SVT), Thyroid Disorder Additional Past Medical History / Comment(s): Valvular heart disease with previous aortic valve replacement and a mitral valve repair, congestion heart failure, Paroxysmal Afib, history of SVT, history of nonsustained VT, SOB with exertion, home O2 at 2L/NC usually prn but lately ATC, arthritis, RA several joints, current L elbow pain/swelling-had "injection", nephrolithiasis, hypothyroid, diverticular dx, UTI, iron deficiency anemia. 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 History of Any Multi-Drug Resistant Organisms: None Reported Past Surgical History: Coronary Bypass/CABG, Heart Catheterization, Hyste rectomy, Joint Replacement, Orthopedic Surgery Additional Past Surgical History / Comment(s): Geoff total knees arthroplasty,lt hip arthroplasty, goiter removed 1962, partial thyroidectomy, cataracts removed with lens implants, REVERSE TOTAL RIGHT SHOULDER; Rotator cuff R shoulder, cervical fusion/injections, colonoscopy 2017(next after 5yr), MATTHEW, valve surgery at [facility] 10/13/17 Prosthetic Aortic valve and mitral valve repair. Total abdominal hysterectomy in the 1980s. Past Anesthesia/Blood Transfusion Reactions: Postoperative Nausea & Vomiting ( PONV) Past Psychological History: No Psychological Hx Reported Additional Psychological History / Comment(s): Pt resides with her spouse in an apartment with no stairs. She used to drive but not since valve surgery. Her spouse is helpful and able to drive her to appts. She has home oxygen. She uses a walker to ambulate and has a cane. She also has a scale and B/P monitor. She has used VMA in the recent past. Smoking Status: Never smoker Past Alcohol Use History: Occasional Additional Past Alcohol Use History / Comment(s): She used to drink 2 glasses of wine per week but hasn't for months, quit smoking @age of 43, smoked 1ppd for 30 yrs. Past Drug Use History: None Reported - Past Family History Father Family Medical History: Cancer, Myocardial Infarction ([place]) Additional Family Medical History / Comment(s): in his 80's of a mi. Colon cancer. Mother Family Medical History: No Reported History Additional Family Medical History / Comment(s): age 88 . hx smoking. Daughter(s) Family Medical History: Cancer Additional Family Medical History / Comment(s): from vulvar cancer. Medications and Allergies Home Medications Medication Instructions Recorded Confirmed Type HYDROcodone/APAP 10-325MG [[place] 1 tab PO Q8H PRN 11/27/17 12/03/22 History 10-325] Propafenone [Rythmol] 150 mg PO TID #90 tablet 01/30/18 12/03/22 Rx Albuterol Sulfate [Proair Hfa] 2 puff INHALATION RT-Q6H PRN 07/28/19 12/03/22 History Ascorbic Acid [Vitamin C] 500 mg PO DAILY 05/08/21 12/03/22 History Cholecalciferol (Vitamin D3) 125 mcg PO DAILY 06/06/22 12/03/22 History [Vitamin D3 (125 MCG = 5,000 IU)] Furosemide [Lasix] 20 mg PO DAILY 06/06/22 12/03/22 History Ipratropium-Albuterol Nebulize 3 ml INHALATION RT-Q6H PRN 06/06/22 12/03/22 History [Duoneb 0.5 mg-3 mg/3 ml Soln] Levothyroxine Sodium [Synthroid] 137 mcg PO DAILY 30 Days #30 tab 06/08/22 12/03/22 Rx Metoprolol Tartrate [Lopressor] 25 mg PO BID 09/06/22 12/03/22 History Warfarin [Coumadin] 2 mg PO HS 09/06/22 12/03/22 History Allergies Allergy/AdvReac Type Severity Reaction Status Date / Time lisinopril Allergy Unknown Verified 12/03/22 20:22 Physical Exam Vitals: Vital Signs Temp Pulse Pulse Resp BP BP Pulse Ox 12/04/22 01:52 97.9 F 74 18 101/65 96 12/04/22 01:43 20 12/03/22 20:27 98.1 F 92 18 101/77 96 12/03/22 17:08 98.4 F 84 20 93/58 95 Intake and Output 12/03/22 12/04/22 12/04/22 22:59 06:59 14:59 Other: Voiding Method Toilet # Voids 2 Weight 52.163 kg 52.163 kg Results 12/03/22 20:06 12/03/22 20:06 Cardiac Enzymes 12/03/22 12/03/22 12/03/22 Range/Units 20:06 20:06 23:34 AST 29 (14-36) U/L Troponin I <0.012 <0.012 (0.000-0.034) ng/mL 12/04/22 Range/Units 03:17 AST (14-36) U/L Troponin I <0.012 (0.000-0.034) ng/mL Coagulation 12/03/22 Range/Units 20:06 PT 45.6 H (9.0-12.0) sec APTT 40.0 H (22.0-30.0) sec CBC 12/03/22 Range/Units 20:06 WBC 7.3 (3.8-10.6) k/uL RBC 4.38 (3.80-5.40) m/uL Hgb 11.5 (11.4-16.0) gm/dL Hct 37.4 (34.0-46.0) % Plt Count 181 (150-450) k/uL Comprehensive Metabolic Panel 12/03/22 Range/Units 20:06 Sodium 139 (137-145) mmol/L Potassium 4.1 (3.5-5.1) mmol/L Chloride 102 (98-107) mmol/L Carbon Dioxide 28 (22-30) mmol/L BUN 23 H (7-17) mg/dL Creatinine 0.80 (0.52-1.04) mg/dL Glucose 113 H (74-99) mg/dL Calcium 8.9 (8.4-10.2) mg/dL AST 29 (14-36) U/L ALT 22 (4-34) U/L Alkaline Phosphatase 155 H (38-126) U/L Total Protein 7.1 (6.3-8.2) g/dL Albumin 3.9 (3.5-5.0) g/dL Current Medications Generic Name Dose Route Start Last Admin Trade Name Freq PRN Reason Stop Dose Admin Acetaminophen 650 mg 12/04/22 07:23 Acetaminophen Tab 325 Mg Tab PO Q6HR PRN Fever and/ or Mild Pain Hydrocodone Bitart/Acetaminophen 1 each 12/04/22 07:22 Hydrocodone/Apap 10-325mg 1 Each Tab PO Q8H PRN Pain Albuterol Sulfate 2.5 mg 12/04/22 07:22 Albuterol Nebulized 2.5 Mg/3 Ml INHALATION RT-Q6H PRN Shortness Of Breath Ascorbic Acid 500 mg 12/04/22 09:00 Ascorbic Acid 500 Mg Tab PO DAILY CARLOS Cholecalciferol 125 mcg 12/04/22 09:00 Cholecalciferol 125 Mcg (5000 Iu) Tablet PO DAILY CARLOS Furosemide 20 mg 12/04/22 09:00 Furosemide 20 Mg Tab PO DAILY CARLOS Sodium Chloride 1,000 mls @ 50 mls/hr 12/03/22 22:45 12/04/22 02:22 Saline 0.9% IV 50 mls/hr .Q20H CARLOS Administration Ipratropium [place] 0.5 mg 12/04/22 07:37 Ipratropium 0.5 Mg/2.5 Ml Nebu INHALATION RT-Q6H PRN Shortness Of Breath Levothyroxine Sodium 137 mcg 12/04/22 09:00 Levothyroxine 137 Mcg Tab PO DAILY@0630 [facility] Metoprolol Tartrate 25 mg 12/04/22 09:00 Metoprolol Tartrate 25 Mg Tab PO BID [facility] Naloxone HCl 0.2 mg 12/03/22 22:43 Naloxone 0.4 Mg/Ml 1 Ml Vial IV Q2M PRN Opioid Reversal Ondansetron HCl 4 mg 12/04/22 07:23 Ondansetron 4 Mg/2 Ml Vial IVP Q6HR PRN Nausea And Vomiting Propafenone HCl 150 mg 12/04/22 09:00 Propafenone 150 Mg Tab PO TID [facility] Intake and Output 12/03/22 12/04/22 12/04/22 22:59 06:59 14:59 Other: Voiding Method Toilet # Voids 2 Weight 52.163 kg 52.163 kg 12/03/22 20:06 12/03/22 20:06
[2022-12-04] MEDS ORDERED: METOPROLOL TARTRATE 25 MG TAB PO SCH (09:00)
[2022-12-04] MEDS ORDERED: LEVOTHYROXINE 137 MCG TAB PO SCH (09:00)
[2022-12-04] MEDS ORDERED: FUROSEMIDE 40 MG TAB PO SCH (09:00)
[2022-12-04] MEDS ORDERED: PROPAFENONE 150 MG TAB PO SCH (09:00)
[2022-12-04] MEDS ORDERED: CHOLECALCIFEROL 125 MCG (5000 IU) TABLET PO SCH (09:00)
[2022-12-04] MEDS ORDERED: FUROSEMIDE 20 MG TAB PO SCH (09:00)
[2022-12-04] MEDS: ASCORBIC ACID 500 MG TAB PO SCH ×2 (09:10→09:22)
--- NOTE | 2022-12-04 12:03 | P.HPIM ---
History of Present Illness H&P Date: 12/04/22 This is a 77 year old female who follows with Dr. Olson with medical history of atrial fibrillation/atrial flutter anticoagulated with warfarin, heart failure, COPD, GERD, SVT, renal disease, valvular heart disease with aortic valve replacement and mitral valve repair. Patient was recently evaluated at cardiology and underwent medication changes. 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 Doyle who started her on a new inhaler. She wears 2L of oxygen chronically, states she has not had to increase her oxygen. She does report feeling short of breath more so than usual, her primary provider is out of the office currently. Patient reports her being concerned with her shortness of breath and brought patient in to be evaluated. She has no cough, no fever or chills. No lower extremity edema. No wheezing noted. No recent illness. Initial work up reveals no acute changes on chest xray, EKG showing sinus arryhthmia. Troponin is negative x 3, proBNP is mildly elevated at 2650, INR of 4.6. Urinalysis is negative. Covid is negative. Cardiology has evaluated the patient and cleared for discharge has discontinued the rhythmol and increased oral lasix. REVIEW OF SYSTEMS: CONSTITUTIONAL: No fever, no malaise, no fatigue. HEENT: No recent visual problems or hearing problems. Denied any sore throat. CARDIOVASCULAR: No chest pain, orthopnea, PND, no palpitations, no syncope. PULMONARY: Reports shortness of breath, no cough, no hemoptysis. GASTROINTESTINAL: No diarrhea, no nausea, no vomiting, no abdominal pain. NEUROLOGICAL: No headaches, no weakness, no numbness. HEMATOLOGICAL: Denies any bleeding or petechiae. GENITOURINARY: Denies any burning micturition, frequency, or urgency. MUSCULOSKELETAL/RHEUMATOLOGICAL: Denies any joint pain, swelling, or any muscle pain. ENDOCRINE: Denies any polyuria or polydipsia. The rest of the 14-point review of systems is negative. PHYSICAL EXAMINATION: GENERAL: The patient is alert and oriented x3, not in any acute distress. Well developed, well nourished. HEENT: Pupils are round and equally reacting to light. EOMI. No scleral icterus. No conjunctival pallor. Normocephalic, atraumatic. No pharyngeal erythema. No thyromegaly. CARDIOVASCULAR: S1 and S2 present. No murmurs, rubs, or gallops. PULMONARY: Chest is clear to auscultation, no wheezing or crackles. Lungs are diminished ABDOMEN: Soft, nontender, nondistended, normoactive bowel sounds. No palpable organomegaly. MUSCULOSKELETAL: No joint swelling or deformity. EXTREMITIES: No cyanosis, clubbing, or pedal edema. NEUROLOGICAL: Gross neurological examination did not reveal any focal deficits. SKIN: No rashes. Assessment and Plan Assessment Exertional dyspnea secondary to valvular heart disease Chronic systolic heart failure no acute exacerbation at this time Chest pain cardiology evaluation has ruled out acute coronary syndrome Chronic hypoxic respiratory failure Paroxysmal atrial fibrillation/atrial flutter with controlled rate Valvular heart disease with history of aortic valve replacement and mitral valve repair History of nonischemic cardiomyopathy History of COPD History of nicotine dependence in the past History of rheumatoid arthritis GI prophylaxis DVT prophylaxis Plan Recommend to discontinue rhythmol and increase lasix to 40 mg daily per cardiology recommendations Unsure which inhaler pulmonary has recommended, patient is started on LABA/ICS and to continue with albuterol inhaler as needed. Continue on same home oxygen at 2 L Recommend to hold warfarin dose for today and decrease to 1.5 mg at HS Repeat INR in 3 days this can be done at the cardiology office Patient will be discharge. The impression and plan of care has been dictated by Diana Wolf Nurse Practitioner as directed. Dr. Lisa MD I have performed a history and physical examination and medical decision making of this patient, discussed the same with the dictator, and agree with the dictators assessment and plan as written, documented as a scribe. Based on total visit time, I have performed more than 50% of this visit. Past Medical History Past Medical History: Atrial Fibrillation, Heart Failure, COPD, GERD/Reflux, Osteoarthritis (OA), Renal Disease, Rheumatoid Arthritis (RA), Supraventricular Tachycardia (SVT), Thyroid Disorder Additional Past Medical History / Comment(s): Valvular heart disease with previous aortic valve replacement and a mitral valve repair, congestion heart fa ilure, Paroxysmal Afib, history of SVT, history of nonsustained VT, SOB with exertion, home O2 at 2L/NC usually prn but lately ATC, arthritis, RA several joints, current L elbow pain/swelling-had "injection", nephrolithiasis, hypothyroid, diverticular dx, UTI, iron deficiency anemia. 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 History of Any Multi-Drug Resistant Organisms: None Reported Past Surgical History: Coronary Bypass/CABG, Heart Catheterization, Hysterectomy, Joint Replacement, Orthopedic Surgery Additional Past Surgical History / Comment(s): Geoff total knees arthroplasty,lt hip arthroplasty, goiter removed 1962, partial thyroidectomy, cataracts removed with lens implants, REVERSE TOTAL RIGHT SHOULDER; Rotator cuff R shoulder, cervical fusion/injections, colonoscopy 2017(next after 5yr), MATTHEW, valve surg bill at [facility] 10/13/17 Prosthetic Aortic valve and mitral valve repair. Total abdominal hysterectomy in the 1980s. Past Anesthesia/Blood Transfusion Reactions: Postoperative Nausea & Vomiting (PONV) Past Psychological History: No Psychological Hx Reported Additional Psychological History / Comment(s): Pt resides with her spouse in an apartment with no stairs. She used to drive but not since valve surgery. Her spouse is helpful and able to drive her to appts. She has home oxygen. She uses a walker to ambulate and has a cane. She also has a scale and B/P monitor. She has used VMA in the recent past. Smoking Status: Never smoker Past Alcohol Use History: Occasional Additional Past Alcohol Use History / Comment(s): She used to drink 2 glasses of wine per week but hasn't for months, quit smoking @age of 43, smoked 1ppd for 30 yrs. Past Drug Use History: None Reported - Past Family History Father Family Medical History: Cancer, Myocardial Infarction ([place]) Additional Family Medical History / Comment(s): in his 80's of a mi. Colon cancer. Mother Family Medical History: No Reported History Additional Family Medical History / Comment(s): age 88 . hx smoking. Daughter(s) Family Medical History: Cancer Additional Family Medical History / Comment(s): from vulvar cancer. Medications and Allergies Home Medications Medication Instructions Recorded Confirmed Type HYDROcodone/APAP 10-325MG [[place] 1 tab PO Q8H PRN 11/27/17 12/03/22 History 10-325] Albuterol Sulfate [Proair Hfa] 2 puff INHALATION RT-Q6H PRN 07/28/19 12/03/22 History Ascorbic Acid [Vitamin C] 500 mg PO DAILY 05/08/21 12/03/22 History Cholecalciferol (Vitamin D3) 125 mcg PO DAILY 06/06/22 12/03/22 History [Vitamin D3 (125 MCG = 5,000 IU)] Ipratropium-Albuterol Nebulize 3 ml INHALATION RT-Q6H PRN 06/06/22 12/03/22 History [Duoneb 0.5 mg-3 mg/3 ml Soln] Levothyroxine Sodium [Synthroid] 137 mcg PO DAILY 30 Days #30 tab 06/08/22 12/03/22 Rx Metoprolol Tartrate [Lopressor] 25 mg PO BID 09/06/22 12/03/22 History Fluticasone Propion/Salmeterol 1 inhalation PO BID #1 each 12/04/22 Rx [Advair 100-50 Diskus] Furosemide [Lasix] 40 mg PO DAILY #30 tab 12/04/22 Rx Warfarin [Coumadin] 1.5 mg PO HS #30 dose 12/04/22 Rx Allergies Allergy/AdvReac Type Severity Reaction Status Date / Time lisinopril Allergy Unknown Verified 12/03/22 20:22 Physical Exam Vitals: Vital Signs Temp Pulse Pulse Resp BP BP Pulse Ox 12/04/22 07:00 97.5 F L 85 16 98/64 98 12/04/22 01:52 97.9 F 74 18 101/65 96 12/04/22 01:43 20 12/03/22 20:27 98.1 F 92 18 101/77 96 12/03/22 17:08 98.4 F 84 20 93/58 95 Intake and Output 12/03/22 12/04/22 12/04/22 22:59 06:59 14:59 Intake Total 120 Balance 120 Intake: Oral 120 Other: Voiding Method Toilet # Voids 2 0 Weight 52.163 kg 52.163 kg Results CBC & Chem 7: 12/03/22 20:06 12/03/22 20:06 Labs: Abnormal Lab Results - Last 24 Hours (Table) 12/03/22 12/03/22 12/03/22 Range/Units 20:06 20:06 20:06 MCHC 30.8 L (31.0-37.0) g/dL RDW 18.7 H (11.5-15.5) % PT 45.6 H (9.0-12.0) sec INR 4.6 H (<1.2) APTT 40.0 H (22.0-30.0) sec BUN 23 H (7-17) mg/dL Glucose 113 H (74-99) mg/dL Alkaline Phosphatase 155 H (38-126) U/L Urine Blood (Negative) Urine Bacteria (None) /hpf Urine Mucus (None) /hpf 12/03/22 Range/Units 22:43 MCHC (31.0-37.0) g/dL RDW (11.5-15.5) % PT (9.0-12.0) sec INR (<1.2) APTT (22.0-30.0) sec BUN (7-17) mg/dL Glucose (74-99) mg/dL Alkaline Phosphatase (38-126) U/L Urine Blood Trace H (Negative) Urine Bacteria Rare H (None) /hpf Urine Mucus Rare H (None) /hpf Assessment and Plan Time with Patient: Less than 30
--- NOTE | 2022-12-04 15:15 | P.DS ---
Providers Date of admission: 12/03/22 22:45 Attending physician: Miguel Conte Consults: 12/03/22 22:43 Consult Physician Urgent Consulting Provider: [facility] Consult Reason/Comments: chest pain Do you want consulting provider notified?: Yes Primary care physician: Olya Olson Hospital Course: Final Diagnosis Exertional dyspnea secondary to valvular heart disease Chronic systolic heart failure no acute exacerbation at this time Chest pain cardiology evaluation has ruled out acute coronary syndrome Chronic hypoxic respiratory failure Paroxysmal atrial fibrillation/atrial flutter with controlled rate 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 Recommend to continue on 2L nasal cannula. Discharged on Advair BID in addition to as needed albuterol. Rhythmol discontinued and lasix increased to 40 mg daily. Patient instructed to skip coumadin dose today and resume tomorrow at 1.5 mg HS. F/U INR in 3 days. 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 Hospital Course This is a 77 year old female who follows with Dr. Olson with medical history of atrial fibrillation/atrial flutter anticoagulated with warfarin, heart failure, COPD, GERD, SVT, renal disease, valvular heart disease with aortic valve replacement and mitral valve repair. Patient was recently evaluated at cardiology and underwent medication changes. 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 Doyle who started her on a new inhaler. She wears 2L of oxygen chronically, states she has not had to increase her oxygen. She does report feeling short of breath more so than usual, her primary provider is out of the office currently. Patient reports her being concerned with her shortness of breath and brought patient in to be evaluated. She has no cough, no fever or chills. No lower extremity edema. No wheezing noted. No recent illness. Initial work up reveals no acute changes on chest xray, EKG showing sinus arryhthmia. Troponin is negative x 3, proBNP is mildly elevated at 2650, INR of 4.6. Urinalysis is negative. Covid is negative. Cardiology has evaluated the patient and cleared for discharge has discontinued the rhythmol and increased oral lasix to 40 mg daily. Advair has been added. Patients symptoms have improved. Cleared for discharge. Lungs are clear. Please see medication reconciliation for a list of current medication. Thank you for allowing us to participate in the care of this patient. The impression and plan of care has been dictated by Diana Wolf, Nurse Practitioner as directed. Dr. Lisa MD I have performed a history and physical examination and medical decision making of this patient, discussed the same with the dictator, and agree with the dictators assessment and plan as written, documented as a scribe. Based on total visit time, I have performed more than 50% of this visit. Patient Condition at Discharge: Stable Plan - Discharge Summary New Discharge Prescriptions: New Warfarin [Coumadin] 1.5 mg PO HS #30 dose Fluticasone Propion/Salmeterol [Advair 100-50 Diskus] 1 inhalation PO BID #1 each Furosemide [Lasix] 40 mg PO DAILY #30 tab Continue HYDROcodone/APAP 10-325MG [Reform 10-325] 1 tab PO Q8H PRN PRN Reason: Pain Albuterol Sulfate [Proair Hfa] 2 puff INHALATION RT-Q6H PRN PRN Reason: Shortness Of Breath Ascorbic Acid [Vitamin C] 500 mg PO DAILY Cholecalciferol (Vitamin D3) [Vitamin D3 (125 MCG = 5,000 IU)] 125 mcg PO DAILY Ipratropium-Albuterol Nebulize [Duoneb 0.5 mg-3 mg/3 ml Soln] 3 ml INHALATION RT-Q6H PRN PRN Reason: Shortness Of Breath Metoprolol Tartrate [Lopressor] 25 mg PO BID Levothyroxine Sodium [Synthroid] 137 mcg PO DAILY 30 Days #30 tab Discontinued Propafenone [Rythmol] 150 mg PO TID #90 tablet Furosemide [Lasix] 20 mg PO DAILY Warfarin [Coumadin] 2 mg PO HS Discharge Medication List HYDROcodone/APAP 10-325MG [Reform 10-325] 1 tab PO Q8H PRN 11/27/17 [History] Albuterol Sulfate [Proair Hfa] 2 puff INHALATION RT-Q6H PRN 07/28/19 [History] Ascorbic Acid [Vitamin C] 500 mg PO DAILY 05/08/21 [History] Cholecalciferol (Vitamin D3) [Vitamin D3 (125 MCG = 5,000 IU)] 125 mcg PO DAILY 06/06/22 [History] Ipratropium-Albuterol Nebulize [Duoneb 0.5 mg-3 mg/3 ml Soln] 3 ml INHALATION RT-Q6H PRN 06/06/22 [History] Levothyroxine Sodium [Synthroid] 137 mcg PO DAILY 30 Days #30 tab 06/08/22 [Rx] Metoprolol Tartrate [Lopressor] 25 mg PO BID 09/06/22 [History] Fluticasone Propion/Salmeterol [Advair 100-50 Diskus] 1 inhalation PO BID #1 each 12/04/22 [Rx] Furosemide [Lasix] 40 mg PO DAILY #30 tab 12/04/22 [Rx] Warfarin [Coumadin] 1.5 mg PO HS #30 dose 12/04/22 [Rx] Follow up Appointment(s)/Referral(s): Alexx Flores MD [STAFF PHYSICIAN] - 12/11/22 1:45 pm Milton Doyle DO [Doctor of Osteopathic Medicine] - 2 Weeks Olya Olson MD [Primary Care Provider] - 1 Week Ambulatory/Diagnostic Orders: Prothrombin Time INR [LAB.AMB] Time Frame: 3 Days, Location: None Selected Activity/Diet/Wound Care/Special Instructions: Follow up With Dr. Olson Follow up with cardiology and Dr. Doyle on discharge Continue same home oxygen dosing Hold warfarin dose today and resume tomorrow at 1.5 mg HS and check INR in 3 days Can check INR at cardiology office since [facility] office is closed. Discharge Disposition: HOME SELF-CARE
== END 2022-12-04 12:32 | disposition home or self-care (01) ==
LOC: EC 16:41 → 6NMEDSUR 22:45
PROVIDERS: ADMIT Hospitalist; ATTEND Hospitalist
DX: R07.89 Other chest pain (principal); J96.11 Chronic respiratory failure with hypoxia; I50.22 Chronic systolic (congestive) heart failure; J44.9 Chronic obstructive pulmonary disease, unspecified; I42.8 Other cardiomyopathies; I48.19 Other persistent atrial fibrillation; I45.10 Unspecified right bundle-branch block; N28.9 Disorder of kidney and ureter, unspecified; K21.9 Gastro-esophageal reflux disease without esophagitis; E89.0 Postprocedural hypothyroidism; I48.3 Typical atrial flutter; K57.90 Diverticulosis of intestine, part unspecified, without perforation or abscess without bleeding; I47.1 Supraventricular tachycardia; M19.90 Unspecified osteoarthritis, unspecified site; M06.9 Rheumatoid arthritis, unspecified; D50.9 Iron deficiency anemia, unspecified; Z20.822 Contact with and (suspected) exposure to COVID-19; Z79.01 Long term (current) use of anticoagulants; Z79.890 Hormone replacement therapy; Z79.899 Other long term (current) drug therapy; Z88.8 Allergy status to other drugs, medicaments and biological substances; Z95.2 Presence of prosthetic heart valve; Z87.891 Personal history of nicotine dependence; Z87.442 Personal history of urinary calculi; Z87.440 Personal history of urinary (tract) infections; Z90.710 Acquired absence of both cervix and uterus; Z95.1 Presence of aortocoronary bypass graft; Z96.642 Presence of left artificial hip joint; Z96.1 Presence of intraocular lens; Z98.49 Cataract extraction status, unspecified eye; Z96.653 Presence of artificial knee joint, bilateral; Z98.1 Arthrodesis status; Z98.890 Other specified postprocedural states; Z96.611 Presence of right artificial shoulder joint; Z82.49 Family history of ischemic heart disease and other diseases of the circulatory system; Z80.0 Family history of malignant neoplasm of digestive organs; Z80.49 Family history of malignant neoplasm of other genital organs; Z81.2 Family history of tobacco abuse and dependence
CPT/HCPCS: 96360; 96361; 99285; 36415; 93005; 83880; 80053; 84484 ×2; 85025; 85610; 85730; 81001; 87635; 71046; G0378

== ENCOUNTER 2023-06-07 16:38 | Emergency (ER) | payer MEDICARE, OTHER ==
[2023-06-07 17:13] VITALS: RESP 18; TEMP 97.3
[2023-06-07] MEDS ORDERED: MECLIZINE 12.5 MG TAB PO STA (17:47)
[2023-06-07] MEDS ORDERED: SODIUM CHLORIDE 0.9% 500 ML 500 ML IV STA (17:47)
[2023-06-07 18:32] LABS: Anisocytosis Slight; Basophils % (A) 1 %; Eosinophils # (A) 0.3 k/uL (0-0.7); Eosinophils % (A) 4 %; HCT 38.6 % (34.0-46.0); HGB 12.2 gm/dL (11.4-16.0); Hypochromasia Slight; INR 1.2 (<1.2); Lymphocytes # (A) 1.7 k/uL (1.0-4.8); Lymphocytes % (A) 23 %; MCH 28.7 pg (25.0-35.0); MCHC 31.7 g/dL (31.0-37.0); MCV 90.5 fL (80.0-100.0); Mean Platelet Volume 8.5; Monocytes # (A) 0.4 k/uL (0-1.0); Monocytes % (A) 6 %; Neutrophils # (A) 4.7 k/uL (1.3-7.7); Neutrophils % (A) 64 %; Platelet Count 218 k/uL (150-450); Prothrombin Time 12.6 sec (9.0-12.0); RBC 4.26 m/uL (3.80-5.40); RDW 16.5 % (11.5-15.5); WBC 7.3 k/uL (3.8-10.6)
[2023-06-07 18:34] LABS: ALT 15 U/L (4-34); AST 31 U/L (14-36); African American GFR (CKD) >90 (>60 ml/min/1.73 sqM); Alkaline Phosphatase 110 U/L (38-126); Anion Gap 12 mmol/L; Blood Urea Nitrogen 13 mg/dL (7-17); Calcium 9.3 mg/dL (8.4-10.2); Carbon Dioxide 23 mmol/L (22-30); Chloride 103 mmol/L (98-107); Glucose 95 mg/dL (74-99); Non-African American GFR(CKD) >90 (>60 ml/min/1.73 sqM); Potassium 4.3 mmol/L (3.5-5.1); Sodium 138 mmol/L (137-145); Total Bilirubin 1.2 mg/dL (0.2-1.3); Total Protein 7.7 g/dL (6.3-8.2)
--- NOTE | 2023-06-07 18:39 | CT ---
EXAMINATION TYPE: CT brain wo con CT DLP: 1189.5 mGycm, Automated exposure control for dose reduction was used. DATE OF EXAM: 06/07/2023 6:22 PM COMPARISON: 06/29/2013. CLINICAL INDICATION:Female, 77 years old with history of dizziness, dizziness TECHNIQUE: Brain: Axial CT images of the brain were obtained with coronal and sagittal reformats created and rev iewed. Contrast used: None. Oral contrast used: None. FINDINGS: Brain: Extra-axial spaces: No abnormal extra-axial fluid collections. Ventricular system: Dilatation in proportion to cerebral atrophy. Cerebral parenchyma: Cerebral atrophy. No acute intraparenchymal hemorrhage or mass effect. The abrams -white junction is well differentiated. Scattered hypoattenuating areas are seen within the white mat ter. Cerebellum: Unremarkable. Mass effect: No evidence of midline shift. Intracranial vasculature: Atherosclerotic calcifications of the intracranial vessels. Soft tissues: Normal. Calvarium/osseous structures: No depressed skull fracture. Post surgical changes of posterior skull. Paranasal sinuses and mastoid air cells: Mild scattered paranasal sinus disease. Visualized orbits: Orbital contents are intact. IMPRESSION: 1. No acute intracranial process. 2. Nonspecific white matter changes, likely secondary to chronic small vessel ischemic disease. 3. Postsurgical changes of posterior skull in the upper spine. Hardware appears intact.
--- NOTE | 2023-06-07 19:19 | XR ---
EXAMINATION TYPE: XR chest 2V DATE OF EXAM: 06/07/2023 6:58 PM CLINICAL INDICATION:Female, 77 years old with history of dizzy, tachy; COMPARISON: Chest radiographs from 12/03/2022 TECHNIQUE: XR chest 2V Frontal and lateral views of the chest. FINDINGS: Lungs/Pleura: Low lung volumes are present. There is no evidence of pleural effusion, focal consolida tion, or pneumothorax. Pulmonary vascularity: Pulmonary vascular congestion. Heart/mediastinum: Cardiomediastinal silhouette is enlarged and stable. Post aortic valve repair patrica nges. Left atrial appendage occlusion device is present. Musculoskeletal: Degenerative changes of the left shoulder. There is total right shoulder arthroplast y with hardware in place.. IMPRESSION: 1. Low lung volumes with a generalized hazy appearance which could represent atelectasis versus pulm onary edema correlate with serum BNP. 2. Similar cardiomegaly.
--- NOTE | 2023-06-07 19:56 | ED ---
Dizziness HPI - General Chief Complaint: Dizziness Stated Complaint: Dizziness Time Seen by Provider: 06/07/23 17:41 Source: patient Mode of arrival: ambulatory Limitations: no limitations - History of Present Illness Initial Comments: 77-year-old female presenting with chief complaint of dizziness. Patient states symptoms started this morning. She states that she feels lightheaded. No alleviating or aggravating factors. She denies any falls or syncopal episodes. No chest pain, difficulty breathing, nausea, vomiting, headache, vision or he aring changes, numbness, tingling, weakness. - Related Data Home Medications Medication Instructions Recorded Confirmed Albuterol Sulfate [Proair Hfa] 2 puff INHALATION RT-Q6H PRN 07/28/19 06/07/23 Ascorbic Acid [Vitamin C] 500 mg PO DAILY 05/08/21 06/07/23 Cholecalciferol (Vitamin D3) 125 mcg PO DAILY 06/06/22 06/07/23 [Vitamin D3 (125 MCG = 5,000 IU)] Ipratropium-Albuterol Nebulize 3 ml INHALATION RT-Q6H PRN 06/06/22 06/07/23 [Duoneb 0.5 mg-3 mg/3 ml Soln] Metoprolol Tartrate [Lopressor] 25 mg PO DAILY 09/06/22 06/07/23 Fluticasone Propion/Salmeterol 1 puff INHALATION RT-BID 06/07/23 06/07/23 [Advair 100-50 Diskus] Propafenone HCl 150 mg PO BID 06/07/23 06/07/23 Warfarin [Coumadin] 2 mg PO HS 06/07/23 06/07/23 Previous Rx's Medication Instructions Recorded Levothyroxine Sodium [Synthroid] 137 mcg PO DAILY 30 Days #30 tab 06/08/22 Cephalexin [Keflex] 500 mg PO Q12HR 7 Days #14 cap 06/07/23 Meclizine [Antivert] 25 mg PO BID PRN #10 tab 06/07/23 Allergies Allergy/AdvReac Type Severity Reaction Status Date / Time lisinopril Allergy Unknown Verified 06/07/23 20:55 Review of Systems ROS Statement: Those systems with pertinent positive or pertinent negative responses have been documented in the HPI. ROS Other: All systems not noted in ROS Statement are negative. Past Medical History Past Medical History: Atrial Fibrillation, Heart Failure, COPD, GERD/Reflux, Osteoarthritis (OA), Renal Disease, Rheumatoid Arthritis (RA), Supraventricular Tachycardia (SVT), Thyroid Disorder Additional Past Medical History / Comment(s): Valvular heart disease with previous aortic valve replacement and a mitral valve repair, congestion heart failure, Paroxysmal Afib, history of SVT, history of nonsustained VT, SOB with exertion, home O2 at 2L/NC usually prn but lately ATC, arthritis, RA several joints, current L elbow pain/swelling-had "injection", nephrolithiasis, hypothyroid, diverticular dx, UTI, iron deficiency anemia. 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 History of Any Multi-Drug Resistant Organisms: None Reported Past Surgical History: Coronary Bypass/CABG, Heart Catheterization, Hysterectomy, Joint Replacement, Orthopedic Surgery Additional Past Surgical History / Comment(s): Geoff total knees arthroplasty,lt hip arthroplasty, goiter removed 1962, partial thyroidectomy, cataracts removed with lens implants, REVERSE TOTAL RIGHT SHOULDER; Rotator cuff R shoulder, cervical fusion/injections, colonoscopy 2016(next after 5yr), MATTHEW, valve surgery at [facility] 10/13/17 Prosthetic Aortic valve and mitral valve repair. Total abdominal hysterectomy in the 1980s. Past Anesthesia/Blood Transfusion Reactions: Postoperative Nausea & Vomiting (PONV) Past Psychological History: No Psychological Hx Reported Smoking Status: Never smoker Past Alcohol Use History: Occasional Past Drug Use History: None Reported - Past Family History Father Family Medical History: Cancer, Myocardial Infarction ([place]) Additional Family Medical History / Comment(s): in his 80's of a mi. Colon cancer. Mother Family Medical History: No Reported History Additional Family Medical History / Comment(s): age 88 . hx smoking. Daughter(s) Family Medical History: Cancer Additional Family Medical History / Comment(s): from vulvar cancer. General Exam Limitations: no limitations General appearance: alert, in no apparent distress Head exam: Present: atraumatic, normocephalic, normal inspection Eye exam: Present: normal appearance, EOMI Neck exam: Present: normal inspection, full ROM Respiratory exam: Present: normal lung sounds bilaterally. Absent: respiratory distress, wheezes, rales, rhonchi, stridor Cardiovascular Exam: Present: regular rate, normal rhythm, normal heart sounds. Absent: systolic murmur, diastolic murmur, rubs, gallop, clicks Neurological exam: Present: alert, oriented X3 Expanded Speech: Present: fluid speech Cranial nerves: EOM's Intact: Normal Cerebellar function: Finger to Nose: Normal Motor strength exam: RUE: 5, LUE: 5, RLE: 5, LLE: 5 Eye Response: (4) open spontaneously Motor Response: (6) obeys commands Verbal Response: (5) oriented Chas Total: 15 Psychiatric exam: Present: normal affect, normal mood Skin exam: Present: warm, dry, intact, normal color. Absent: rash Course Vital Signs 06/07/23 06/07/23 06/07/23 17:06 20:21 21:00 Temperature 97.3 F L Pulse Rate 72 92 88 Respiratory 18 18 18 Rate Blood Pressure 102/60 127/93 122/90 O2 Sat by Pulse 97 100 98 Oximetry EKG Findings - EKG Comments: EKG Findings:: Atrial fibrillation ventricular rate is approximately 100. MN interval indeterminable. QRS 21. QT 143. QTC 235. Medical Decision Making - Medical Decision Making Was pt. sent in by a medical professional or institution (, PA, TAPER OPERATOR, urgent care, hospital, or senior care...) When possible be specific @ -No Did you speak to anyone other than the patient for history (EMS, parent, family, police, friend...)? What history was obtained from this source @ -No Did you review nursing and triage notes (agree or disagree)? Why? @ -I reviewed and agree with nursing and triage notes Were old charts reviewed (outside hosp., previous admission, EMS record, old EKG, old radiological studies, urgent care reports/EKG's, senior care records)? Report findings @ -No old charts were reviewed Differential Diagnosis (chest pain, altered mental status, abdominal pain women, abdominal pain men, vaginal bleeding, weakness, fever, dyspnea, syncope, headache, dizziness, GI bleed, back pain, seizure, CVA, palpatations, mental health, musculoskeletal)? @ -MDM Differential Dizziness: Benign paroxysmal positional Vertigo, Meniere’s disease, otitis media, acoustic neuroma, vertebrobasilar insufficiency, cerebellar stroke, encephalitis, hypovolemic, arrhythmia, coronary artery syndrome, anemia… this is not meant to be an all-inclusive list EKG interpreted by me (3pts min.). @ -As above X-rays interpreted by me (1pt min.). @ -Low lung volumes with a generalized hazy appearance which could represent atelectasis versus pulmonary edema correlate with serum BNP CT interpreted by me (1pt min.). @ -CT shows no acute intracranial process. U/S interpreted by me (1pt. min.). @ -None done What testing was considered but not performed or refused? (CT, X-rays, U/S, labs)? Why? @ -None What meds were considered but not given or refused? Why? @ -None Did you discuss the management of the patient with other professionals (professionals i.e. , PA, TAPER OPERATOR, lab, RT, psych nurse, social media marketing analyst, vegetable washer, teacher, chief quality officer, watch case polisher)? Give summary @ -No Was smoking cessation discussed for >3mins.? @ -No Was critical care preformed (if so, how long)? @ -No Were there social determinants of health that impacted care today? How? (Homelessness, low income, unemployed, alcoholism, drug addiction, transportation, low edu. Level, literacy, decrease access to med. care, prison, rehab)? @ -No Was there de-escalation of care discussed even if they declined (Discuss DNR or withdrawal of care, Hospice)? DNR status @ -No What co-morbidities impacted this encounter? (DM, HTN, Smoking, COPD, CAD, Cancer, CVA, ARF, Chemo, Hep., AIDS, mental health diagnosis, sleep apnea, morbid obesity)? @ -None Was patient admitted / discharged? Hospital course, mention meds given and route, prescriptions, significant lab abnormalities, going to OR and other pertinent info. @ -77-year-old female presenting with chief complaint of dizziness that started today. Physical exam is conducted, no focal neurological deficits. No leukocytosis or anemia. Negative troponin. BNP is consistent with baseline and actually on the lower end of the patient's baseline values. Urine is positive for UTI. Negative CT of the brain. Patient reports improvement after meclizine. Patient will be sent home with a prescription for meclizine and Kef axel for UTI. Follow-up with PCP. Report back to ER with any new or worsening symptoms. Discussed return parameters and answered all questions. Patient conveyed verbal understanding and agreed to the plan. I discussed this case in detail with my attending Dr. Castro Undiagnosed new problem with uncertain prognosis? @ -No Drug Therapy requiring intensive monitoring for toxicity (Heparin, Nitro, Insulin, Cardizem)? @ -No Were any procedures done? @ -No Diagnosis/symptom? @ -Dizziness, UTI Acute, or Chronic, or Acute on Chronic? @ -Acute Uncomplicated (without systemic symptoms) or Complicated (systemic symptoms)? @ -Uncomplicated Side effects of treatment? @ -No Exacerbation, Progression, or Severe Exacerbation? @ -No Poses a threat to life or bodily function? How? (Chest pain, [place], [place], pneumonia, PE, COPD, DKA, ARF, appy, cholecystitis, CVA, Diverticulitis, Homicidal, Suicidal, threat to staff... and all critical care pts) @ -No - Lab Data Result diagrams: 06/07/23 18:09 06/07/23 18:09 Lab Results 06/07/23 06/07/23 06/07/23 Range/Units 18:09 18:09 18:09 WBC 7.3 (3.8-10.6) k/uL RBC 4.26 (3.80-5.40) m/uL Hgb 12.2 (11.4-16.0) gm/dL Hct 38.6 (34.0-46.0) % MCV 90.5 (80.0-100.0) fL MCH 28.7 (25.0-35.0) pg MCHC 31.7 (31.0-37.0) g/dL RDW 16.5 H (11.5-15.5) % Plt Count 218 (150-450) k/uL MPV 8.5 Neutrophils % 64 % Lymphocytes % 23 % Monocytes % 6 % Eosinophils % 4 % Basophils % 1 % Neutrophils # 4.7 (1.3-7.7) k/uL Lymphocytes # 1.7 (1.0-4.8) k/uL Monocytes # 0.4 (0-1.0) k/uL Eosinophils # 0.3 (0-0.7) k/uL Basophils # 0.0 (0-0.2) k/uL Hypochromasia Slight Anisocytosis Slight PT 12.6 H (9.0-12.0) sec INR 1.2 H (<1.2) Sodium (137-145) mmol/L Potassium (3.5-5.1) mmol/L Chloride (98-107) mmol/L Carbon Dioxide (22-30) mmol/L Anion Gap mmol/L BUN (7-17) mg/dL Creatinine (0.52-1.04) mg/dL Est GFR (CKD-EPI)AfAm (>60 ml/min/1.73 sqM) Est GFR (CKD-EPI)NonAf (>60 ml/min/1.73 sqM) Glucose (74-99) mg/dL Plasma Lactic Acid Wilfred (0.7-2.0) mmol/L Calcium (8.4-10.2) mg/dL Total Bilirubin (0.2-1.3) mg/dL AST (14-36) U/L ALT (4-34) U/L Alkaline Phosphatase (38-126) U/L Troponin I (0.000-0.034) ng/mL NT-Pro-B Natriuret Pep pg/mL Total Protein (6.3-8.2) g/dL Albumin (3.5-5.0) g/dL Urine Color Yellow Urine Appearance Cloudy H (Clear) Urine pH 7.0 (5.0-8.0) Ur Specific [place] 1.019 (1.001-1.035) Urine Protein Trace H (Negative) Urine Glucose (UA) Negative (Negative) Urine Ketones Negative (Negative) Urine Blood Negative (Negative) Urine Nitrite Positive H (Negative) Urine Bilirubin Negative (Negative) Urine Urobilinogen <2.0 (<2.0) mg/dL Ur Leukocyte Esterase Small H (Negative) Urine WBC 32 H (0-5) /hpf Ur Squamous Epith Cells 7 H (0-4) /hpf Amorphous Sediment Moderate H (None) /hpf Urine Bacteria Moderate H (None) /hpf Hyaline Casts 7 H (0-2) /lpf Urine Mucus Few H (None) /hpf 06/07/23 06/07/23 06/07/23 Range/Units 18:09 18:09 18:09 WBC (3.8-10.6) k/uL RBC (3.80-5.40) m/uL Hgb (11.4-16.0) gm/dL Hct (34.0-46.0) % MCV (80.0-100.0) fL MCH (25.0-35.0) pg MCHC (31.0-37.0) g/dL RDW (11.5-15.5) % Plt Count (150-450) k/uL MPV Neutrophils % % Lymphocytes % % Monocytes % % Eosinophils % % Basophils % % Neutrophils # (1.3-7.7) k/uL Lymphocytes # (1.0-4.8) k/uL Monocytes # (0-1.0) k/uL Eosinophils # (0-0.7) k/uL Basophils # (0-0.2) k/uL Hypochromasia Anisocytosis PT (9.0-12.0) sec INR (<1.2) Sodium 138 (137-145) mmol/L Potassium 4.3 (3.5-5.1) mmol/L Chloride 103 (98-107) mmol/L Carbon Dioxide 23 (22-30) mmol/L Anion Gap 12 mmol/L BUN 13 (7-17) mg/dL Creatinine 0.51 L (0.52-1.04) mg/dL Est GFR (CKD-EPI)AfAm >90 (>60 ml/min/1.73 sqM) Est GFR (CKD-EPI)NonAf >90 (>60 ml/min/1.73 sqM) Glucose 95 (74-99) mg/dL Plasma Lactic Acid Wilfred 1.4 (0.7-2.0) mmol/L Calcium 9.3 (8.4-10.2) mg/dL Total Bilirubin 1.2 (0.2-1.3) mg/dL AST 31 (14-36) U/L ALT 15 (4-34) U/L Alkaline Phosphatase 110 (38-126) U/L Troponin I <0.012 (0.000-0.034) ng/mL NT-Pro-B Natriuret Pep pg/mL Total Protein 7.7 (6.3-8.2) g/dL Albumin 4.0 (3.5-5.0) g/dL Urine Color Urine Appearance (Clear) Urine pH (5.0-8.0) Ur Specific [place] (1.001-1.035) Urine Protein (Negative) Urine Glucose (UA) (Negative) Urine Ketones (Negative) Urine Blood (Negative) Urine Nitrite (Negative) Urine Bilirubin (Negative) Urine Urobilinogen (<2.0) mg/dL Ur Leukocyte Esterase (Negative) Urine WBC (0-5) /hpf Ur Squamous Epith Cells (0-4) /hpf Amorphous Sediment (None) /hpf Urine Bacteria (None) /hpf Hyaline Casts (0-2) /lpf Urine Mucus (None) /hpf 06/07/23 Range/Units 18:46 WBC (3.8-10.6) k/uL RBC (3.80-5.40) m/uL Hgb (11.4-16.0) gm/dL Hct (34.0-46.0) % MCV (80.0-100.0) fL MCH (25.0-35.0) pg MCHC (31.0-37.0) g/dL RDW (11.5-15.5) % Plt Count (150-450) k/uL MPV Neutrophils % % Lymphocytes % % Monocytes % % Eosinophils % % Basophils % % Neutrophils # (1.3-7.7) k/uL Lymphocytes # (1.0-4.8) k/uL Monocytes # (0-1.0) k/uL Eosinophils # (0-0.7) k/uL Basophils # (0-0.2) k/uL Hypochromasia Anisocytosis PT (9.0-12.0) sec INR (<1.2) Sodium (137-145) mmol/L Potassium (3.5-5.1) mmol/L Chloride (98-107) mmol/L Carbon Dioxide (22-30) mmol/L Anion Gap mmol/L BUN (7-17) mg/dL Creatinine (0.52-1.04) mg/dL Est GFR (CKD-EPI)AfAm (>60 ml/min/1.73 sqM) Est GFR (CKD-EPI)NonAf (>60 ml/min/1.73 sqM) Glucose (74-99) mg/dL Plasma Lactic Acid Wilfred (0.7-2.0) mmol/L Calcium (8.4-10.2) mg/dL Total Bilirubin (0.2-1.3) mg/dL AST (14-36) U/L ALT (4-34) U/L Alkaline Phosphatase (38-126) U/L Troponin I (0.000-0.034) ng/mL NT-Pro-B Natriuret Pep 2610 pg/mL Total Protein (6.3-8.2) g/dL Albumin (3.5-5.0) g/dL Urine Color Urine Appearance (Clear) Urine pH (5.0-8.0) Ur Specific [place] (1.001-1.035) Urine Protein (Negative) Urine Glucose (UA) (Negative) Urine Ketones (Negative) Urine Blood (Negative) Urine Nitrite (Negative) Urine Bilirubin (Negative) Urine Urobilinogen (<2.0) mg/dL Ur Leukocyte Esterase (Negative) Urine WBC (0-5) /hpf Ur Squamous Epith Cells (0-4) /hpf Amorphous Sediment (None) /hpf Urine Bacteria (None) /hpf Hyaline Casts (0-2) /lpf Urine Mucus (None) /hpf Disposition Clinical Impression: UTI (urinary tract infection) Disposition: HOME SELF-CARE Condition: Good Instructions (If sedation given, give patient instructions): Dizziness (ED), Urinary Tract Infection in Older Adults (ED) Additional Instructions: Follow-up with PCP. Report back to ER with any new or worsening symptoms. Take medication as prescribed Prescriptions: Meclizine [Antivert] 25 mg PO BID PRN #10 tab PRN Reason: Vertigo Cephalexin [Keflex] 500 mg PO Q12HR 7 Days #14 cap Is patient prescribed a controlled substance at d/c from ED?: No Referrals: Olya Olson MD [Primary Care Provider] - 1-2 days Time of Disposition: 20:47
[2023-06-07 20:35] LABS: Amorphous Sediment,Urine Moderate /hpf; Appearance,Urine Cloudy (Clear); Bacteria,Urine Moderate /hpf; Bilirubin,Urine Negative (Negative); Blood,Urine Negative (Negative); Color,Urine Yellow; Glucose,Urine (UA) Negative (Negative); Hyaline Casts,Urine 7 /lpf (0-2); Ketones,Urine Negative (Negative); Leukocyte Esterase,Urine Small (Negative); Mucus,Urine Few /hpf; Nitrite,Urine Positive (Negative); Protein,Urine Trace (Negative); Specific Gravity,Urine 1.019 (1.001-1.035); Squamous Epithelial Cell,Urine 7 /hpf (0-4); Urobilinogen,Urine <2.0 mg/dL (<2.0); WBC,Urine 32 /hpf (0-5)
[2023-06-07 21:06] VITALS: BP 122/90; PULSE 88
== END 2023-06-07 21:00 | disposition home or self-care (01) ==
LOC: EC 16:38
DX: N39.0 Urinary tract infection, site not specified (principal); K21.9 Gastro-esophageal reflux disease without esophagitis; J44.9 Chronic obstructive pulmonary disease, unspecified; M06.9 Rheumatoid arthritis, unspecified; I48.0 Paroxysmal atrial fibrillation; I50.9 Heart failure, unspecified; Z88.8 Allergy status to other drugs, medicaments and biological substances; Z79.51 Long term (current) use of inhaled steroids; Z79.01 Long term (current) use of anticoagulants; Z79.899 Other long term (current) drug therapy
CPT/HCPCS: 36415; 70450; 71046; 80053; 81001; 83605; 83880; 84484; 85025; 85610; 93005; 99285

== ENCOUNTER 2023-06-28 06:50 | Inpatient (IN) | payer MEDICARE, OTHER ==
[2023-06-28] MEDS ORDERED: IPRATROPIUM-ALBUTEROL 3 ML NEB INHALATION STA (07:27)
--- NOTE | 2023-06-28 07:44 | ED ---
General Adult HPI - General Chief complaint: Shortness of Breath Stated complaint: Difficulty Breathing Time Seen by Provider: 06/28/23 07:18 Source: patient, EMS, RN notes reviewed, old records reviewed Mode of arrival: EMS - History of Present Illness Initial comments: Patient is an 78-year-old female presents emergency Department complaining of shortness of breath. The history of COPD, CHF, A. fib on Coumadin, renal disease, thyroid disease. His history of previous aortic valve replacement as well as mitral valve repair. States shortness of breath has been progressively worsening over the last 7-10 days. Endorses worsening orthopnea, lower extremity edema. Does not take her Lasix every single day. Endorses mild cough. Denies any PND. Endorses exertional dyspnea. Is on oxygen at home as needed. Denies chest pain, abdominal pain, nausea, vomiting. No fevers or chills. No other acute complaints. Presents over concern for her worsening shortness of breath. - Related Data Home Medications Medication Instructions Recorded Confirmed Albuterol Sulfate [Proair Hfa] 2 puff INHALATION RT-Q6H PRN 07/28/19 06/07/23 Ascorbic Acid [Vitamin C] 500 mg PO DAILY 05/08/21 06/07/23 Cholecalciferol (Vitamin D3) 125 mcg PO DAILY 06/06/22 06/07/23 [Vitamin D3 (125 MCG = 5,000 IU)] Ipratropium-Albuterol Nebulize 3 ml INHALATION RT-Q6H PRN 06/06/22 06/07/23 [Duoneb 0.5 mg-3 mg/3 ml Soln] Metoprolol Tartrate [Lopressor] 25 mg PO DAILY 09/06/22 06/07/23 Fluticasone Propion/Salmeterol 1 puff INHALATION RT-BID 06/07/23 06/07/23 [Advair 100-50 Diskus] Propafenone HCl 150 mg PO BID 06/07/23 06/07/23 Warfarin [Coumadin] 2 mg PO HS 06/07/23 06/07/23 Previous Rx's Medication Instructions Recorded Levothyroxine Sodium [Synthroid] 137 mcg PO DAILY 30 Days #30 tab 06/08/22 Cephalexin [Keflex] 500 mg PO Q12HR 7 Days #14 cap 06/07/23 Meclizine [Antivert] 25 mg PO BID PRN #10 tab 06/07/23 Allergies Allergy/AdvReac Type Severity Reaction Status Date / Time lisinopril Allergy Unknown Verified 06/28/23 06:56 Review of Systems ROS Statement: Those systems with pertinent positive or pertinent negative responses have been documented in the HPI. Review of Systems: CONST: Denies fever EYES: Denies blurry vision ENT: Denies nasal congestion C/V: Denies Chest pain RESP: Endorses Shortness of breath GI: Denies abdominal pain : Denies dysuria SKIN: Denies rash. MSK: Denies joint pain. NEURO: Denies headache ROS Other: All systems not noted in ROS Statement are negative. Past Medical History Past Medical History: Atrial Fibrillation, Heart Failure, COPD, GERD/Reflux, Osteoarthritis (OA), Renal Disease, Rheumatoid Arthritis (RA), Supraventricular Tachycardia (SVT), Thyroid Disorder Additional Past Medical History / Comment(s): Valvular heart disease with previous aortic valve replacement and a mitral valve repair, congestion heart failure, Paroxysmal Afib, history of SVT, history of nonsustained VT, SOB with exertion, home O2 at 2L/NC usually prn but lately ATC, arthritis, RA several joints, current L elbow pain/swelling-had "injection", nephrolithiasis, hypothyroid, diverticular dx, UTI, iron deficiency anemia. 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 History of Any Multi-Drug Resistant Organisms: None Reported Past Surgical History: Coronary Bypass/CABG, Heart Catheterization, Hysterectomy, Joint Replacement, Orthopedic Surgery Additional Past Surgical History / Comment(s): Geoff total knees arthroplasty,lt hip arthroplasty, goiter removed 1962, partial thyroidectomy, cataracts removed with lens implants, REVERSE TOTAL RIGHT SHOULDER; Rotator cuff R shoulder, cervical fusion/injections, colonoscopy 2016(next after 5yr), MATTHEW, valve surgery at [facility] 10/13/17 Prosthetic Aortic valve and mitral valve repair. Total abdominal hysterectomy in the 1980s. Past Anesthesia/Blood Transfusion Reactions: Postoperative Nausea & Vomiting (PONV) Past Psychological History: No Psychological Hx Reported Smoking Status: Never smoker Past Alcohol Use History: Occasional Past Drug Use History: None Reported - Past Family History Father Family Medical History: Cancer, Myocardial Infarction (DE) Additional Family Medical History / Comment(s): in his 80's of a mi. Colon cancer. Mother Family Medical History: No Reported History Additional Family Medical History / Comment(s): age 88 . hx smoking. Daughter(s) Family Medical History: Cancer Additional Family Medical History / Comment(s): from vulvar cancer. General Exam - General Exam Comments Initial Comments: General: Appears in no acute distress. HEAD: Normal with no signs of head trauma. EYES: PERRLA, EOMI, conjunctiva normal, no discharge. ENT: Hearing grossly intact, normal oropharynx. RESPIRATORY: Coarse breath sounds at bilateral lung bases. No significant hypoxia. No increased work of breathing. C/V: Tachycardic with a regular rhythm.. S1 and S2 auscultated, patient does have bilateral symmetrical edema., peripheral pulses 2+ and intact throughout ABD: Abd is soft, nontender, nondistended EXT: Normal range of motion, no obvious deformity SKIN: No rashes or lesions observed on exposed skin. NEURO: Alert and oriented 4. Course Vital Signs 06/28/23 06/28/23 06/28/23 06:54 08:16 08:24 Temperature 98.1 F Pulse Rate 116 H 109 H 123 H Respiratory 20 16 16 Rate Blood Pressure 117/89 O2 Sat by Pulse 97 Oximetry Medical Decision Making - Medical Decision Making Was pt. sent in by a medical professional or institution (, PA, CLIENT SOLUTIONS DIRECTOR, urgent care, hospital, or group home...) When possible be specific @ -No Did you speak to anyone other than the patient for history (EMS, parent, family, police, friend...)? What history was obtained from this source @ -No Did you review nursing and triage notes (agree or disagree)? Why? @ -I reviewed and agree with nursing and triage notes Were old charts reviewed (outside hosp., previous admission, EMS record, old EKG, old radiological studies, urgent care reports/EKG's, group home records)? Report findings @ -Old charts reviewed Differential Diagnosis (chest pain, altered mental status, abdominal pain women, abdominal pain men, vaginal bleeding, weakness, fever, dyspnea, syncope, headache, dizziness, GI bleed, back pain, seizure, CVA, palpatations, mental health, musculoskeletal)? @ -Differential Dyspnea: Coronary syndrome, arrhythmia, tamponade, asthma, COPD, pulmonary embolism, pneumonia, pneumothorax, pulmonary effusion, anaphylaxis, diabetic ketoacidosis, flailed chest, pulmonary contusion, diaphragmatic rupture, anemia, neuromuscular, this is not meant to be an all-inclusive list. EKG interpreted by me (3pts min.). @ -As above X-rays interpreted by me (1pt min.). @ -Chest x-ray shows significant bilateral pulmonary vascular congestion with cardiomegaly CT interpreted by me (1pt min.). @ -None done U/S interpreted by me (1pt. min.). @ -None done What testing was considered but not performed or refused? (CT, X-rays, U/S, la bs)? Why? @ -None What meds were considered but not given or refused? Why? @ -None Did you discuss the management of the patient with other professionals (professionals i.e. , PA, CLIENT SOLUTIONS DIRECTOR, lab, RT, psych nurse, social media assistant, flume tender, teacher, search and rescue officer, touring production manager)? Give summary @ -I spoke with Dr. tate was in agreement with the plan and accepted the admission Was smoking cessation discussed for >3mins.? @ -No Was critical care preformed (if so, how long)? @ -yes, 36 min Were there social determinants of health that impacted care today? How? (Homelessness, low income, unemployed, alcoholism, drug addiction, transportation, low edu. Level, literacy, decrease access to med. care, fci, rehab)? @ -No Was there de-escalation of care discussed even if they declined (Discuss DNR or withdrawal of care, Hospice)? DNR status @ -No What co-morbidities impacted this encounter? (DM, HTN, Smoking, COPD, CAD, Cancer, CVA, ARF, Chemo, Hep., AIDS, mental health diagnosis, sleep apnea, morbid obesity)? @ -CHF, COPD Was patient admitted / discharged? Hospital course, mention meds given and route, prescriptions, significant lab abnormalities, going to OR and other pertinent info. @ -Based on Patient's presentation and physical exam, presents for shortness of breath. I'm concerned for cardiopulmonary etiology. Likely CHF exacerbation but possibly COPD. No significant wheezing. We will obtain a pulmonary labs as well as chest x-ray, EKG. She did not take her morning medications she'll be given these. Patient was in agreement this plan. Vital signs other than tachycardia are within acceptable limits. Patient initially placed on oxygen however patient is saturating 92-94% with oxygen off. This is our goal, and we will adjust as necessary. EKG shows no signs of acute ischemia. Unchanged from prior EKGs. Laboratory studies are remarkable for a subtherapeutic INR at 1.7. BNP is 9500. This is elevated above patient's baseline. Chest x-ray remarkable for pulmonary vascular congestion. On reevaluation, patient does intermittently become hypoxic to 88% on multiple re-evaluations and therefore was placed on 2 L nasal cannula. She seems to respond well to this. Patient will be admitted to the hospital for CHF exacerbation and acute on chronic hypoxic respiratory failure. Patient was in agreement this plan. I spoke with Dr. tate was in agreement with the plan. Patient started on IV Lasix and received a dose in the ER. Echo ordered. C ardiology consulted. Undiagnosed new problem with uncertain prognosis? @ -No Drug Therapy requiring intensive monitoring for toxicity (Heparin, Nitro, Insulin, Cardizem)? @ -No Were any procedures done? @ -No Diagnosis/symptom? @ -CHF Acute, or Chronic, or Acute on Chronic? @ -Acute on chronic Uncomplicated (without systemic symptoms) or Complicated (systemic symptoms)? @ -Complicated Side effects of treatment? @ -none Exacerbation, Progression, or Severe Exacerbation] @ -Exacerbation Poses a threat to life or bodily function? @ -Yes secondary to hypoxia Diagnosis/symptom? @ -Hypoxic respiratory failure Acute, or Chronic, or Acute on Chronic? @ -Acute on chronic Uncomplicated (without systemic symptoms) or Complicated (systemic symptoms)? @ -Complicated Side effects of treatment? @ -none Exacerbation, Progression, or Severe Exacerbation] @ -no Poses a threat to life or bodily function? @ -yes Diagnosis/symptom? @ -Subtherapeutic INR Acute, or Chronic, or Acute on Chronic? @ -Acute Uncomplicated (without systemic symptoms) or Complicated (systemic symptoms)? @ -Uncomplicated Side effects of treatment? @ -none Exacerbation, Progression, or Severe Exacerbation] @ -no Poses a threat to life or bodily function? @ -Yes - Lab Data Result diagrams: 06/28/23 07:52 06/28/23 07:52 Lab Results 06/28/23 06/28/23 06/28/23 Range/Units 07:52 07:52 07:52 WBC 8.0 (3.8-10.6) k/uL RBC 3.95 (3.80-5.40) m/uL Hgb 11.7 (11.4-16.0) gm/dL Hct 36.2 (34.0-46.0) % MCV 91.5 (80.0-100.0) fL MCH 29.7 (25.0-35.0) pg MCHC 32.4 (31.0-37.0) g/dL RDW 17.5 H (11.5-15.5) % Plt Count 192 (150-450) k/uL MPV 8.9 Neutrophils % 73 % Lymphocytes % 17 % Monocytes % 6 % Eosinophils % 2 % Basophils % 1 % Neutrophils # 5.8 (1.3-7.7) k/uL Lymphocytes # 1.4 (1.0-4.8) k/uL Monocytes # 0.5 (0-1.0) k/uL Eosinophils # 0.1 (0-0.7) k/uL Basophils # 0.0 (0-0.2) k/uL Hypochromasia Slight Anisocytosis Slight PT 17.2 H (10.0-12.5) sec INR 1.7 H (<1.2) APTT 26.1 (22.0-30.0) sec Sodium 140 (137-145) mmol/L Potassium 4.4 (3.5-5.1) mmol/L Chloride 106 (98-107) mmol/L Carbon Dioxide 19 L (22-30) mmol/L Anion Gap 15 mmol/L BUN 19 H (7-17) mg/dL Creatinine 0.60 (0.52-1.04) mg/dL Est GFR (CKD-EPI)AfAm >90 (>60 ml/min/1.73 sqM) Est GFR (CKD-EPI)NonAf 87 (>60 ml/min/1.73 sqM) Glucose 101 H (74-99) mg/dL Calcium 9.3 (8.4-10.2) mg/dL Magnesium 1.9 (1.6-2.3) mg/dL Total Bilirubin 2.1 H (0.2-1.3) mg/dL AST 76 H (14-36) U/L ALT 44 H (4-34) U/L Alkaline Phosphatase 182 H (38-126) U/L Troponin I (0.000-0.034) ng/mL NT-Pro-B Natriuret Pep 9580 pg/mL Total Protein 7.4 (6.3-8.2) g/dL Albumin 3.9 (3.5-5.0) g/dL Influenza Type A (PCR) (Not Detectd) Influenza Type B (PCR) (Not Detectd) RSV (PCR) (Not Detectd) SARS-CoV-2 (PCR) (Not Detectd) 06/28/23 06/28/23 Range/Units 07:52 07:52 WBC (3.8-10.6) k/uL RBC (3.80-5.40) m/uL Hgb (11.4-16.0) gm/dL Hct (34.0-46.0) % MCV (80.0-100.0) fL MCH (25.0-35.0) pg MCHC (31.0-37.0) g/dL RDW (11.5-15.5) % Plt Count (150-450) k/uL MPV Neutrophils % % Lymphocytes % % Monocytes % % Eosinophils % % Basophils % % Neutrophils # (1.3-7.7) k/uL Lymphocytes # (1.0-4.8) k/uL Monocytes # (0-1.0) k/uL Eosinophils # (0-0.7) k/uL Basophils # (0-0.2) k/uL Hypochromasia Anisocytosis PT (10.0-12.5) sec INR (<1.2) APTT (22.0-30.0) sec Sodium (137-145) mmol/L Potassium (3.5-5.1) mmol/L Chloride (98-107) mmol/L Carbon Dioxide (22-30) mmol/L Anion Gap mmol/L BUN (7-17) mg/dL Creatinine (0.52-1.04) mg/dL Est GFR (CKD-EPI)AfAm (>60 ml/min/1.73 sqM) Est GFR (CKD-EPI)NonAf (>60 ml/min/1.73 sqM) Glucose (74-99) mg/dL Calcium (8.4-10.2) mg/dL Magnesium (1.6-2.3) mg/dL Total Bilirubin (0.2-1.3) mg/dL AST (14-36) U/L ALT (4-34) U/L Alkaline Phosphatase (38-126) U/L Troponin I <0.012 (0.000-0.034) ng/mL NT-Pro-B Natriuret Pep pg/mL Total Protein (6.3-8.2) g/dL Albumin (3.5-5.0) g/dL Influenza Type A (PCR) Not Detected (Not Detectd) Influenza Type B (PCR) Not Detected (Not Detectd) RSV (PCR) Not Detected (Not Detectd) SARS-CoV-2 (PCR) Not Detected (Not Detectd) - EKG Data -: EKG Interpreted by Me EKG Comments: 12-lead Electrocardiogram Interpretation Note EKG was reviewed and interpreted by myself. 12-lead ECG performed at 0836 is interpreted by me as revealing atrial fibrillation/flutter at a rate of 103 beats per minute. Right axis deviation. QRS duration is 85 ms, QTc is 416 ms.. There were no acute ST or T wave abnormalities to suggest myocardial ischemia or injury. R wave progression across the precordium was satisfactory. By my interpretation this EKG is non-diagnostic for acute ischemia. Critical Care Time Critical Care Time: Yes Total Critical Care Time: 36 Disposition Clinical Impression: CHF exacerbation, Acute on chronic hypoxic respiratory failure, Subtherapeutic international normalized ratio (INR) Disposition: ADMITTED IP TO THIS HOSP Condition: Stable Time of Disposition: 08:42
[2023-06-28] MEDS ORDERED: METOPROLOL TARTRATE 25 MG TAB PO STA (07:48)
[2023-06-28 08:05] LABS: Anisocytosis Slight; Basophils % (A) 1 %; Eosinophils # (A) 0.1 k/uL (0-0.7); Eosinophils % (A) 2 %; HCT 36.2 % (34.0-46.0); HGB 11.7 gm/dL (11.4-16.0); Hypochromasia Slight; Lymphocytes # (A) 1.4 k/uL (1.0-4.8); Lymphocytes % (A) 17 %; MCH 29.7 pg (25.0-35.0); MCHC 32.4 g/dL (31.0-37.0); MCV 91.5 fL (80.0-100.0); Mean Platelet Volume 8.9; Monocytes # (A) 0.5 k/uL (0-1.0); Monocytes % (A) 6 %; Neutrophils # (A) 5.8 k/uL (1.3-7.7); Neutrophils % (A) 73 %; Platelet Count 192 k/uL (150-450); RBC 3.95 m/uL (3.80-5.40); RDW 17.5 % (11.5-15.5)
[2023-06-28 08:20] LABS: INR 1.7 (<1.2); Partial Thromboplastin Time 26.1 sec (22.0-30.0); Prothrombin Time 17.2 sec (10.0-12.5)
[2023-06-28 08:24] LABS: ALT 44 U/L (4-34); AST 76 U/L (14-36); African American GFR (CKD) >90 (>60 ml/min/1.73 sqM); Albumin 3.9 g/dL (3.5-5.0); Alkaline Phosphatase 182 U/L (38-126); Anion Gap 15 mmol/L; Blood Urea Nitrogen 19 mg/dL (7-17); Calcium 9.3 mg/dL (8.4-10.2); Carbon Dioxide 19 mmol/L (22-30); Chloride 106 mmol/L (98-107); Glucose 101 mg/dL (74-99); Magnesium 1.9 mg/dL (1.6-2.3); Non-African American GFR(CKD) 87 (>60 ml/min/1.73 sqM); Potassium 4.4 mmol/L (3.5-5.1); Sodium 140 mmol/L (137-145); Total Bilirubin 2.1 mg/dL (0.2-1.3); Total Protein 7.4 g/dL (6.3-8.2)
[2023-06-28 08:30] LABS: NT-Pro-B-Type Natriuretic Pept 9580 pg/mL
[2023-06-28] MEDS ORDERED: FUROSEMIDE 10 MG/ML 4 ML VIAL IV STA (08:35)
[2023-06-28] MEDS ORDERED: NALOXONE 0.4 MG/ML 1 ML VIAL IV PRN (08:44)
[2023-06-28] MEDS ORDERED: ONDANSETRON 4 MG/2 ML VIAL IVP PRN (08:44)
[2023-06-28] MEDS: FUROSEMIDE 10 MG/ML 4 ML VIAL IV SCH ×2 (08:53→20:51)
--- NOTE | 2023-06-28 09:51 | XR ---
EXAMINATION TYPE: XR chest 2V DATE OF EXAM: 06/28/2023 8:10 AM CLINICAL INDICATION:Female, 78 years old with history of difficulty breathing; [facility] COMPARISON: 06/07/2023 and before TECHNIQUE: XR chest 2V Frontal and lateral views of the chest. FINDINGS: Lines/Tubes: EKG leads overlie the chest. No indwelling lines are seen. Lungs/Pleura: Apparently chronic lung changes are redemonstrated including scarring in the left mid t o lower lung zones. Difficult to evaluate the left lung base, but no large effusion, acute consolidat ion, or pneumothorax is seen. Generalized haziness of the lung rios again noted. Pulmonary vascularity: Question mild vascular congestion. Heart/mediastinum: Stable cardiomediastinal silhouette. The heart is enlarged. Prosthetic heart valv e and left atrial occlusion device again noted. Musculoskeletal: No acute osseous pathology. Osteopenia and degenerative changes. Right glenohumeral reverse arthroplasty. Other findings: None IMPRESSION: Cardiomegaly and postoperative changes. Likely chronic lung changes. Generalized haziness of the lung rios may represent chronic changes, a telectasis, and/or pulmonary edema.
[2023-06-28 11:19] LABS: Appearance,Urine Clear (Clear); Bacteria,Urine Occasional /hpf; Bilirubin,Urine Negative (Negative); Blood,Urine Negative (Negative); Color,Urine Colorless; Glucose,Urine (UA) Negative (Negative); Ketones,Urine Negative (Negative); Leukocyte Esterase,Urine Negative (Negative); Mucus,Urine Rare /hpf; Nitrite,Urine Positive (Negative); Protein,Urine Negative (Negative); RBC,Urine 1 /hpf (0-5); Specific Gravity,Urine 1.006 (1.001-1.035); Squamous Epithelial Cell,Urine <1 /hpf (0-4); Urobilinogen,Urine <2.0 mg/dL (<2.0); WBC,Urine 1 /hpf (0-5)
[2023-06-28] MEDS ORDERED: ALBUTEROL NEBULIZED 2.5 MG/3 ML INHALATION PRN (12:47)
[2023-06-28] MEDS ORDERED: IPRATROPIUM-ALBUTEROL 3 ML NEB INHALATION PRN (12:47)
[2023-06-28] MEDS ORDERED: MECLIZINE 25 MG TAB PO PRN (12:47)
[2023-06-28] MEDS ORDERED: HYDROcodone/APAP 10-325MG 1 EACH TAB PO PRN (12:47)
--- NOTE | 2023-06-28 15:11 | CA ---
Transthoracic Echo Report Name: Mirella San Age: 78 Gender: F : 1945 Exam Date: 06/28/2023 11:28 Exam Location: [place] [facility] Ht (in): 60 Wt (lb): 116 Ordering Physician: Bebeto Castro MD Attending/Referring Phys: Vp Site Kaylin BAEZ Procedure CPT: Indications: chf Cardiac Hx: Technical Quality: Technically difficult study Contrast 1: Total Dose (mL): Contrast 2: Total Dose (mL): MEASUREMENTS (Male / Female) Normal Values 2D ECHO LV Diastolic Diameter PLAX 4.0 cm 4.2 - 5.9 / 3.9 - 5.3 cm LV Systolic Diameter PLAX 3.5 cm IVS Diastolic Thickness 0.7 cm 0.6 - 1.0 / 0.6 - 0.9 cm LVPW Diastolic Thickness 0.8 cm 0.6 - 1.0 / 0.6 - 0.9 cm LV Relative Wall Thickness 0.4 LVOT Diameter 2.0 cm LV Diastolic Volume MOD BP 53.9 cm??? 67 - 155 / 56 - 104 cm??? LV Systolic Volume MOD BP 38.7 cm??? 22 - 58 / 19 - 49 cm??? LV Ejection Fraction MOD BP 28.1 % >= 55 % LV Cardiac Index MOD BP 1051.9 cm???/min???m??? LV Diastolic Volume MOD 4C 48.2 cm??? LV Systolic Volume MOD 4C 33.9 cm??? LV Ejection Fraction MOD 4C 29.6 % LV Cardiac Index MOD 4C 990.0 cm???/min???m??? LV Diastolic Length 4C 6.8 cm LV Systolic Length 4C 6.2 cm LV Diastolic Volume MOD 2C 60.9 cm??? LV Systolic Volume MOD 2C 43.5 cm??? LV Ejection Fraction MOD 2C 28.6 % LV Cardiac Index MOD 2C 1209.8 cm???/min???m??? LV Diastolic Length 2C 6.9 cm LV Systolic Length 2C 6.4 cm LA Volume 106.1 cm??? 18 - 58 / 22 - 52 cm??? LA Volume Index 70.8 cm???/m??? 16 - 28 cm???/m??? Ascending Aorta Diameter 3.6 cm M-MODE Aortic Root Diameter MM 2.0 cm LA Systolic Diameter MM 4.9 cm LA Ao Ratio MM 2.5 AV Cusp Separation MM 0.7 cm DOPPLER AV Peak Velocity 141.5 cm/s AV Peak Gradient 8.0 mmHg AV Mean Velocity 102.8 cm/s AV Mean Gradient 4.8 mmHg AV Velocity Time Integral 22.0 cm LVOT Peak Velocity 86.4 cm/s LVOT Peak Gradient 3.0 mmHg LVOT Velocity Time Integral 14.1 cm LVOT Stroke Volume 43.7 cm??? LVOT Stroke Volume Index 29.5 ml/m??? LVOT Cardiac Index 3027.9 cm???/min???m??? AV Area Cont Eq vti 2.0 cm??? AV Area Cont Eq pk 1.9 cm??? MV Peak Velocity 142.6 cm/s MV Peak Gradient 8.1 mmHg MV Mean Velocity 94.9 cm/s MV Mean Gradient 3.9 mmHg MV Velocity Time Integral 24.6 cm MV Area PHT 3.8 cm??? TR Peak Velocity 299.3 cm/s TR Peak Gradient 35.8 mmHg Right Atrial Pressure 15.0 mmHg Pulmonary Artery Systolic Pressu 50.8 mmHg Right Ventricular Systolic Press 50.8 mmHg FINDINGS Left Ventricle Left ventricular wall thickness normal. Left ventricular cavity size normal. Moderately-severely reduced global left ventricular systolic function. Left ventricular ejection fraction is estimated at 30-35%. Right Ventricle Severe right ventricular dilatation. Severe pulmonary hypertension. Right Atrium Severe right atrial dilatation. Left Atrium Severely increased left atrial volume. Mildly increased left atrial area. Mitral Valve S/P MV repair. Moderate mitral annular calcification and thickening. Mild mitral regurgitation. Aortic Valve Bioprosthetic aortic valve. No aortic regurgitation. Tricuspid Valve Torrential tricuspid regurgitation. Pulmonic Valve Structurally normal pulmonic valve. Moderate pulmonic regurgitation. Pericardium No pericardial effusion. Aorta Normal size aortic root and proximal ascending aorta. CONCLUSIONS Left ventricular ejection fraction 30-35% Severe right ventricular dilation RVSP 50 however may be underestimated secondary to low output state Severe right atrial dilation Severe left atrial dilation Status post mitral valve repair with moderate mitral calcification, mild mitral regurgitation Bioprosthetic aortic valve with no significant aortic regurgitation Severe, torrential tricuspid regurgitation No pericardial effusion Previewed by: Dr. Jesus Jordan DO (Electronically Signed) Final Date: 28 June 2023 15:10
--- NOTE | 2023-06-28 15:48 | P.CRDCN ---
History of Present Illness History of present illness: HISTORY OF PRESENT ILLNESS: This is a 78-year-old female with a past medical history significant for atrial fibrillation/A flutter, aortic valve replacement and MV repair in 2018, and non ischemic cardiomyopathy with improved EF. Patient follows in the office with Dr. Flores. We have been asked to see the patient in consultation for SOB. Patient states that shortness breath has been fairly progressive over the last few days. She denies any edema however does have trace to 1+ lower extremity edema. She denies any change in medications. Denies any chest pain or pressure. White b lood cell count 8.0, hemoglobin 11.7, INR 1.7, creatinine 0.6, total bilirubin 2.1, AST 76, ALP 44, alk phos 182, proBNP 9580, troponin negative 3. EKG showing atrial flutter with RVR, right axis deviation, minimal ST depressions V4 through V6. Echocardiogram repeated today which shows ejection fraction 30-35%, severe right ventricular dilation, RVSP 50, severe torrential tricuspid regurgitation. * Echocardiogram obtained in June 2022 revealed ejection fraction 40%, mild LVH. Severely dilated right ventricle. Mild pulmonary hypertension. Bioprosthetic aortic valve. Moderate to severe TR. * Cardiac catheterization history: 2018 revealing normal coronary arteries REVIEW OF SYSTEMS: At the time of my exam: CONSTITUTIONAL: Denies fever or chills. HEENT: Denies blurred vision, vision changes, or eye pain. Denies hemoptysis CARDIOVASCULAR: Denies chest pain. Denies orthopnea. Denies PND. Denies palpitations RESPIRATORY: Reports dyspnea on exertion. GASTROINTESTINAL: Denies abdominal pain. Denies nausea or vomiting. HEMATOLOGIC: Denies bleeding disorders. GENITOURINARY: Denies any blood in urine. SKIN: Denies pruitis. Denies rash. PHYSICAL EXAM: VITAL SIGNS: Reviewed. GENERAL: Well-developed in no acute distress. HEENT: Head is normocephalic. Pupils are equal, round. Sclerae anicteric. Mucous membranes of the mouth are moist. Neck supple. No JVD or thyromegaly LUNGS: Respirations even and unlabored. Lungs essentially clear to auscultation bilaterally. HEART: Regular rate and rhythm. S1 and S2 heard. 3/6 systolic ejection murmur at the base, 2/6 holosystolic murmur at the apex. ABDOMEN: Soft. Nondistended. Nontender. EXTREMITIES: Normal range of motion. No clubbing or cyanosis. Peripheral pulses intact. No lower extremity edema NEUROLOGIC: Awake and alert. Oriented x 3. 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 Discontinue Rythmol as this was discontinued in the office on 11/15 and rhythm control has not been effective with rythmol. Lasix 40mg IV daily Monitor response Further recs to follow. Past Medical History Past Medical History: Atrial Fibrillation, Heart Failure, COPD, GERD/Reflux, Osteoarthritis (OA), Renal Disease, Rheumatoid Arthritis (RA), Supraventricular Tachycardia (SVT), Thyroid Disorder Additional Past Medical History / Comment(s): Valvular heart disease with previous aortic valve replacement and a mitral valve repair, congestion heart failure, Paroxysmal Afib, history of SVT, history of nonsustained VT, SOB with exertion, home O2 at 2L/NC usually prn but lately ATC, arthritis, RA several joints, current L elbow pain/swelling-had "injection", nephrolithiasis, hypothyroid, diverticular dx, UTI, iron deficiency anemia. 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 History of Any Multi-Drug Resistant Organisms: None Reported Past Surgical History: Coronary Bypass/CABG, Heart Catheterization, Hysterectomy, Joint Replacement, Orthopedic Surgery Additional Past Surgical History / Comment(s): Geoff total knees arthroplasty,lt hip arthroplasty, goiter removed 1962, partial thyroidectomy, cataracts removed with lens implants, REVERSE TOTAL RIGHT SHOULDER; Rotator cuff R shoulder, cervical fusion/injections, colonoscopy 2016(next after 5yr), MATTHEW, valve surgery at [facility] 10/13/17 Prosthetic Aortic valve and mitral valve repair. Total abdominal hysterectomy in the . Past Anesthesia/Blood Transfusion Reactions: Postoperative Nausea & Vomiting (PONV) Past Psychological History: No Psychological Hx Reported Smoking Status: Never smoker Past Alcohol Use History: Occasional Past Drug Use History: None Reported - Past Family History Father Family Medical History: Cancer, Myocardial Infarction ([place]) Additional Family Medical History / Comment(s): in his 80's of a mi. Colon cancer. Mother Family Medical History: No Reported History Additional Family Medical History / Comment(s): age 88 . hx smoking. Daughter(s) Family Medical History: Cancer Additional Family Medical History / Comment(s): from vulvar cancer. Medications and Allergies Home Medications Medication Instructions Recorded Confirmed Type Albuterol Sulfate [Proair Hfa] 2 puff INHALATION RT-Q6H PRN 07/28/19 06/28/23 History Ascorbic Acid [Vitamin C] 500 mg PO DAILY 05/08/21 06/28/23 History Cholecalciferol (Vitamin D3) 125 mcg PO DAILY 06/06/22 06/28/23 History [Vitamin D3 (125 MCG = 5,000 IU)] Ipratropium-Albuterol Nebulize 3 ml INHALATION RT-Q6H PRN 06/06/22 06/28/23 History [Duoneb 0.5 mg-3 mg/3 ml Soln] Levothyroxine Sodium [Synthroid] 137 mcg PO DAILY 30 Days #30 tab 06/08/22 06/28/23 Rx Metoprolol Tartrate [Lopressor] 25 mg PO DAILY 09/06/22 06/28/23 History Fluticasone Propion/Salmeterol 1 puff INHALATION RT-BID 06/07/23 06/28/23 History [Advair 100-50 Diskus] Meclizine [Antivert] 25 mg PO BID PRN #10 tab 06/07/23 06/28/23 Rx Propafenone HCl 150 mg PO BID 06/07/23 06/28/23 History Warfarin [Coumadin] 2 mg PO HS 06/07/23 06/28/23 History HYDROcodone/APAP 10-325MG [[place] 1 tab PO Q8H PRN 06/28/23 06/28/23 History 10-325] Allergies Allergy/AdvReac Type Severity Reaction Status Date / Time lisinopril Allergy Unknown Verified 06/28/23 11:44 Physical Exam Vitals: Vital Signs Temp Pulse Resp BP Pulse Ox 06/28/23 11:43 96 18 116/72 94 L 06/28/23 08:24 123 H 16 06/28/23 08:16 109 H 16 06/28/23 06:54 98.1 F 116 H 20 117/89 97 Intake and Output 06/28/23 06/28/23 06/28/23 06:59 14:59 22:59 Other: Weight 52.617 kg Results 06/28/23 07:52 06/28/23 07:52 Cardiac Enzymes 06/28/23 06/28/23 06/28/23 Range/Units 07:52 07:52 10:24 AST 76 H (14-36) U/L Troponin I <0.012 <0.012 (0.000-0.034) ng/mL 06/28/23 Range/Units 13:06 AST (14-36) U/L Troponin I <0.012 (0.000-0.034) ng/mL Coagulation 06/28/23 Range/Units 07:52 PT 17.2 H (10.0-12.5) sec APTT 26.1 (22.0-30.0) sec CBC 06/28/23 Range/Units 07:52 WBC 8.0 (3.8-10.6) k/uL RBC 3.95 (3.80-5.40) m/uL Hgb 11.7 (11.4-16.0) gm/dL Hct 36.2 (34.0-46.0) % Plt Count 192 (150-450) k/uL Comprehensive Metabolic Panel 06/28/23 Range/Units 07:52 Sodium 140 (137-145) mmol/L Potassium 4.4 (3.5-5.1) mmol/L Chloride 106 (98-107) mmol/L Carbon Dioxide 19 L (22-30) mmol/L BUN 19 H (7-17) mg/dL Creatinine 0.60 (0.52-1.04) mg/dL Glucose 101 H (74-99) mg/dL Calcium 9.3 (8.4-10.2) mg/dL AST 76 H (14-36) U/L ALT 44 H (4-34) U/L Alkaline Phosphatase 182 H (38-126) U/L Total Protein 7.4 (6.3-8.2) g/dL Albumin 3.9 (3.5-5.0) g/dL Current Medications Generic Name Dose Route Start Last Admin Trade Name Freq PRN Reason Stop Dose Admin Hydrocodone Bitart/Acetaminophen 1 each 06/28/23 12:47 Hydrocodone/Apap 10-325mg 1 Each Tab PO Q8H PRN Pain Albuterol Sulfate 2.5 mg 06/28/23 12:47 Albuterol Nebulized 2.5 Mg/3 Ml INHALATION RT-Q6H PRN Shortness Of Breath Albuterol/Ipratropium 3 ml 06/28/23 12:47 Ipratropium-Albuterol 3 Ml Neb INHALATION RT-Q6H PRN Shortness Of Breath Budesonide/Formoterol Fumarate 2 puff 06/28/23 20:00 Symbicort 80-4.5 Mcg Inhaler INHALATION RT-BID CARLOS Furosemide 40 mg 06/28/23 09:00 06/28/23 08:53 Furosemide 10 Mg/Ml 4 Ml Vial IV 40 mg Q12HR CARLOS Administration Levothyroxine Sodium 137 mcg 06/29/23 06:30 Levothyroxine 137 [place] [address]30 CARLOS Meclizine HCl 25 mg 06/28/23 12:47 Meclizine 25 Mg Tab PO BID PRN Vertigo Metoprolol Tartrate 25 mg 06/29/23 09:00 Metoprolol Tartrate 25 Mg Tab PO DAILY [facility] Miscellaneous Information 0 each 06/28/23 13:49 Warfarin Per Pharmacy MISCELLANE DIRECTED PRN INR Naloxone HCl 0.2 mg 06/28/23 08:44 Naloxone 0.4 Mg/Ml 1 Ml Vial IV Q2M PRN Opioid Reversal Ondansetron HCl 4 mg 06/28/23 08:44 Ondansetron 4 Mg/2 Ml Vial IVP Q8HR PRN Nausea And Vomiting Propafenone HCl 150 mg 06/28/23 21:00 Propafenone 150 Mg Tab PO BID [facility] Warfarin Sodium 2.5 mg 06/28/23 18:00 Warfarin 2.5 Mg Tab PO 06/28/23 18:01 ONCE@1800 ONE Protocol Intake and Output 06/28/23 06/28/23 06/28/23 06:59 14:59 22:59 Other: Weight 52.617 kg 06/28/23 07:52 06/28/23 07:52
--- NOTE | 2023-06-28 16:47 | P.HPIM ---
History of Present Illness H&P Date: 06/28/23 Mirella San, is an 78-year-old female who presented to [facility] emergency room with a chief complaint of worsening shortness of breath She was evaluated in the emergency room vital examination on presentation revealed a temperature of 98.1 pulse 116 respiration 20 blood pressure 117/89 pulse ox 97% on room air Laboratory data revealed a white blood count of 8.0 hemoglobin 11.7 platelet count 192 INR 1.7 sodium 140 potassium 4.4 chloride 106 CO2 19 BUN 19 creatinine 0.6 Testing in the emergency room revealed chest x-ray done in the emergency room revealed cardiomegaly and generalized haziness of the lung rios Patient was admitted to medical floor for further evaluation and treatment Past Medical History Past Medical History: Atrial Fibrillation, Heart Failure, COPD, GERD/Reflux, Osteoarthritis (OA), Renal Disease, Rheumatoid Arthritis (RA), Supraventricular Tachycardia (SVT), Thyroid Disorder Additional Past Medical History / Comment(s): Valvular heart disease with previous aortic valve replacement and a mitral valve repair, congestion heart failure, Paroxysmal Afib, history of SVT, history of nonsustained VT, SOB with exertion, home O2 at 2L/NC usually prn but lately ATC, arthritis, RA several joints, current L elbow pain/swelling-had "injection", nephrolithiasis, hypothyroid, diverticular dx, UTI, iron deficiency anemia. 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 History of Any Multi-Drug Resistant Organisms: None Reported Past Surgical History: Coronary Bypass/CABG, Heart Catheterization, Hysterectomy, Joint Replacement, Orthopedic Surgery Additional Past Surgical History / Comment(s): Geoff total knees arthroplasty,lt hip arthroplasty, goiter removed 1962, partial thyroidectomy, cataracts removed with lens implants, REVERSE TOTAL RIGHT SHOULDER; Rotator cuff R shoulder, cervical fusion/injections, colonoscopy 2016(next after 5yr), MATTHEW, valve surgery at [facility] 10/13/17 Prosthetic Aortic valve and mitral valve repair. Total abdominal hysterectomy in the 1980s. Past Anesthesia/Blood Transfusion Reactions: Postoperative Nausea & Vomiting (PONV) Past Psychological History: No Psychological Hx Reported Smoking Status: Never smoker Past Alcohol Use History: Occasional Past Drug Use History: None Reported - Past Family History Father Family Medical History: Cancer, Myocardial Infarction ([place]) Additional Family Medical History / Comment(s): in his 80's of a mi. Colon cancer. Mother Family Medical History: No Reported History Additional Family Medical History / Comment(s): age 88 . hx smoking. Daughter(s) Family Medical History: Cancer Additional Family Medical History / Comment(s): from vulvar cancer. Medications and Allergies Home Medications Medication Instructions Recorded Confirmed Type Albuterol Sulfate [Proair Hfa] 2 puff INHALATION RT-Q6H PRN 07/28/19 06/28/23 History Ascorbic Acid [Vitamin C] 500 mg PO DAILY 05/08/21 06/28/23 History Cholecalciferol (Vitamin D3) 125 mcg PO DAILY 06/06/22 06/28/23 History [Vitamin D3 (125 MCG = 5,000 IU)] Ipratropium-Albuterol Nebulize 3 ml INHALATION RT-Q6H PRN 06/06/22 06/28/23 History [Duoneb 0.5 mg-3 mg/3 ml Soln] Levothyroxine Sodium [Synthroid] 137 mcg PO DAILY 30 Days #30 tab 06/08/22 06/28/23 Rx Metoprolol Tartrate [Lopressor] 25 mg PO DAILY 09/06/22 06/28/23 History Fluticasone Propion/Salmeterol 1 puff INHALATION RT-BID 06/07/23 06/28/23 History [Advair 100-50 Diskus] Meclizine [Antivert] 25 mg PO BID PRN #10 tab 06/07/23 06/28/23 Rx Propafenone HCl 150 mg PO BID 06/07/23 06/28/23 History Warfarin [Coumadin] 2 mg PO HS 06/07/23 06/28/23 History HYDROcodone/APAP 10-325MG [[place] 1 tab PO Q8H PRN 06/28/23 06/28/23 History 10-325] Allergies Allergy/AdvReac Type Severity Reaction Status Date / Time lisinopril Allergy Unknown Verified 06/28/23 11:44 Physical Exam Vitals: Vital Signs Temp Pulse Resp BP Pulse Ox 06/28/23 08:24 123 H 16 06/28/23 08:16 109 H 16 06/28/23 06:54 98.1 F 116 H 20 117/89 97 Intake and Output 06/27/23 06/28/23 06/28/23 22:59 06:59 14:59 Other: Weight 52.617 kg In general patient is alert and oriented x 3 in no distress HEENT head normocephalic and atraumatic Neck is supple no JVD no goiter no lymphadenopathy no carotid bruit Chest examination reveals a scattered crackles bilaterally no wheezing Cardiac exam reveals regular heart sounds S1 and S2 no gallops no murmurs Abdomen is soft nontender no organomegaly with normal bowel sounds Extremity exam reveals 2 + edema Neurological examination reveals no gross focal deficits Results CBC & Chem 7: 06/28/23 07:52 06/28/23 07:52 Labs: Abnormal Lab Results - Last 24 Hours (Table) 06/28/23 06/28/23 06/28/23 Range/Units 07:52 07:52 07:52 RDW 17.5 H (11.5-15.5) % PT 17.2 H (10.0-12.5) sec INR 1.7 H (<1.2) Carbon Dioxide 19 L (22-30) mmol/L BUN 19 H (7-17) mg/dL Glucose 101 H (74-99) mg/dL Total Bilirubin 2.1 H (0.2-1.3) mg/dL AST 76 H (14-36) U/L ALT 44 H (4-34) U/L Alkaline Phosphatase 182 H (38-126) U/L Assessment and Plan Plan: Acute exacerbation of congestive heart failure Acute on chronic systolic heart failure Atrial flutter with rapid ventricular response Underlying history of paroxysmal atrial fibrillation History of aortic valve replacement History of mitral valve repair History of pulmonary hypertension Admit to telemetry floor, started on IV Lasix in the emergency room Home medications reviewed and reordered Cardiology consult requested For DVT prophylaxis patient is on oral Coumadin, INR is subtherapeutic, will adjust dose Will follow in a.m. Prognosis is guarded
[2023-06-28] MEDS ORDERED: WARFARIN 2.5 MG TAB PO ONE (18:00)
[2023-06-28] MEDS: SILDENAFIL 20 MG TAB PO SCH ×2 (18:34→21:14)
[2023-06-28] MEDS: SYMBICORT 80-4.5 MCG INHALER INHALATION SCH (19:30)
[2023-06-28] MEDS: METOPROLOL TARTRATE 25 MG TAB PO SCH (20:52)
[2023-06-28] MEDS ORDERED: PROPAFENONE 150 MG TAB PO SCH (21:00)
[2023-06-29] MEDS: LEVOTHYROXINE 137 MCG TAB PO SCH (06:39)
[2023-06-29 07:30] LABS: INR 1.7 (<1.2); Prothrombin Time 17.6 sec (10.0-12.5)
[2023-06-29] MEDS: SYMBICORT 80-4.5 MCG INHALER INHALATION SCH ×2 (08:09→21:06)
[2023-06-29] MEDS: FUROSEMIDE 10 MG/ML 4 ML VIAL IV SCH ×2 (08:17→20:28)
[2023-06-29] MEDS: SILDENAFIL 20 MG TAB PO SCH ×3 (08:18→20:35)
[2023-06-29] MEDS: METOPROLOL TARTRATE 25 MG TAB PO SCH ×2 (08:18→20:35)
[2023-06-29] MEDS ORDERED: METOPROLOL TARTRATE 25 MG TAB PO SCH (09:00)
[2023-06-29 09:45] LABS: ALT 40 U/L (8-44); AST 50 U/L (13-35); Albumin 3.5 d/dL (3.8-4.9); Albumin/Globulin Ratio 1.25 Ratio (1.60-3.17); Alkaline Phosphatase 162 U/L (41-126); Blood Urea Nitrogen 18.7 mg/dL (9.0-27.0); Calcium 9.2 mg/dL (8.7-10.3); Carbon Dioxide 28.8 mmol/L (21.6-31.8); Chloride 99 mmol/L (96-109); Globulin 2.8 d/dL (1.6-3.3); Glucose 124 mg/dL (70-110); Potassium 3.3 mmol/L (3.5-5.5); Sodium 142 mmol/L (135-145); Total Bilirubin 1.4 mg/dL (0.3-1.2); Total Protein 6.3 d/dL (6.2-8.2)
[2023-06-29 09:47] LABS: Basophils # (A) 0.07 X 10*3/uL (0.00-0.10); Basophils % (A) 0.8 %; Eosinophils # (A) 0.19 X 10*3/uL (0.04-0.35); Eosinophils % (A) 2.1 %; HCT 37.9 % (37.2-46.3); HGB 11.5 d/dL (12.0-15.0); Lymphocytes # (A) 1.89 X 10*3/uL (0.90-5.00); Lymphocytes % (A) 21.2 %; MCH 28.2 pg (27.0-32.0); MCHC 30.3 d/dL (32.0-37.0); MCV 92.9 FL (80.0-97.0); Mean Platelet Volume 10.6 FL (9.5-12.2); Monocytes # (A) 0.68 X 10*3/uL (0.20-1.00); Monocytes % (A) 7.6 %; NRBC Per 100 WBC 0.03 X 10*3/uL (0.00-0.01); Neutrophils # (A) 5.94 X 10*3/uL (1.80-7.70); Neutrophils % (A) 66.8 %; Platelet Count 230 X 10*3/uL (140-440); RBC 4.08 X 10*6/uL (4.10-5.20); RDW 18.7 % (11.5-14.5)
--- NOTE | 2023-06-29 10:48 | P.PN ---
Subjective Progress Note Date: 06/29/23 Mirella San, is an 78-year-old female who presented to [facility] emergency room with a chief complaint of worsening shortness of breath She was evaluated in the emergency room vital examination on presentation revealed a temperature of 98.1 pulse 116 respiration 20 blood pressure 117/89 pulse ox 97% on room air Laboratory data revealed a white blood count of 8.0 hemoglobin 11.7 platelet count 192 INR 1.7 sodium 140 potassium 4.4 chloride 106 CO2 19 BUN 19 creatinine 0.6 Testing in the emergency room revealed chest x-ray done in the emergency room revealed cardiomegaly and generalized haziness of the lung rios Patient was admitted to medical floor for further evaluation and treatment On 06/29/2023 patient alert and oriented 3. Patient still reporting some shortness of breath. Patient remains on IV Lasix. Cardiology services following. 2-D echo completed showing an EF of 30-35%. Her vital signs temp 97.7, heart rate 66, respiratory rate 17, blood pressure 111/64 with a pulse ox of 97% on 2 L Objective - Vital Signs Vital signs: Vital Signs Temp 97.7 F 06/29/23 04:20 Pulse 66 06/29/23 04:20 Resp 17 06/29/23 04:20 BP 111/64 06/29/23 04:20 Pulse Ox 95 06/29/23 08:10 FiO2 Intake & Output 06/28/23 06/29/23 06/29/23 18:59 06:59 18:59 Weight 52.617 kg Other: Voiding Method External Catheter # Voids 0 - Exam In general patient is alert and oriented x 3 in no distress HEENT head normocephalic and atraumatic Neck is supple no JVD no goiter no lymphadenopathy no carotid bruit Chest examination reveals a scattered crackles bilaterally no wheezing Cardiac exam reveals regular heart sounds S1 and S2 no gallops no murmurs Abdomen is soft nontender no organomegaly with normal bowel sounds Extremity exam reveals 2 + edema Neurological examination reveals no gross focal deficits - Labs CBC & Chem 7: 06/29/23 06:21 06/29/23 06:21 Labs: Abnormal Lab Results - Last 24 Hours (Table) 06/28/23 06/29/23 06/29/23 Range/Units 07:52 06:21 06:21 RBC (4.10-5.20) X 10*6/uL Hgb (12.0-15.0) d/dL MCHC (32.0-37.0) d/dL RDW (11.5-14.5) % NRBC/100 WBC Diff (0.00-0.01) X 10*3/uL PT 17.6 H (10.0-12.5) sec INR 1.7 H (<1.2) Potassium 3.3 L (3.5-5.5) mmol/L Anion Gap 14.20 H (4.00-12.00) mmol/L Est GFR (CKD-EPI) 57 L (>=60) Glucose 124 H (70-110) mg/dL Total Bilirubin 1.4 H (0.3-1.2) mg/dL AST 50 H (13-35) U/L Alkaline Phosphatase 162 H (41-126) U/L Albumin 3.5 L (3.8-4.9) d/dL Albumin/Globulin Ratio 1.25 L (1.60-3.17) Ratio Urine Nitrite Positive H (Negative) Urine Bacteria Occasional H (None) /hpf Urine Mucus Rare H (None) /hpf 06/29/23 Range/Units 06:21 RBC 4.08 L (4.10-5.20) X 10*6/uL Hgb 11.5 L (12.0-15.0) d/dL MCHC 30.3 L (32.0-37.0) d/dL RDW 18.7 H (11.5-14.5) % NRBC/100 WBC Diff 0.03 H (0.00-0.01) X 10*3/uL PT (10.0-12.5) sec INR (<1.2) Potassium (3.5-5.5) mmol/L Anion Gap (4.00-12.00) mmol/L Est GFR (CKD-EPI) (>=60) Glucose (70-110) mg/dL Total Bilirubin (0.3-1.2) mg/dL AST (13-35) U/L Alkaline Phosphatase (41-126) U/L Albumin (3.8-4.9) d/dL Albumin/Globulin Ratio (1.60-3.17) Ratio Urine Nitrite (Negative) Urine Bacteria (None) /hpf Urine Mucus (None) /hpf Assessment and Plan Assessment: Acute exacerbation of congestive heart failure Acute on chronic systolic heart failure Atrial flutter with rapid ventricular response Underlying history of paroxysmal atrial fibrillation History of aortic valve replacement History of mitral valve repair History of pulmonary hypertension Admit to telemetry floor, started on IV Lasix in the emergency room Home medications reviewed and reordered Cardiology consult requested For DVT prophylaxis patient is on oral Coumadin, INR is subtherapeutic, will adjust dose Will follow in a.m. Prognosis is guarded
--- NOTE | 2023-06-29 13:34 | P.PN ---
Subjective Progress Note Date: 06/29/23 HISTORY OF PRESENT ILLNESS: This is a 78-year-old female with a past medical history significant for atrial fibrillation/A flutter, aortic valve replacement and MV repair in 2018, and nonischemic cardiomyopathy with improved EF. Patient follows in the office with Dr. Flores. We have been asked to see the patient in consultation for SOB. Patient states that shortness breath has been fairly progressive over the last few days. She denies any edema however does have trace to 1+ lower extremity edema. She denies any change in medications. Denies any chest pain or pressure. White blood cell count 8.0, hemoglobin 11.7, INR 1.7, creatinine 0.6, total bilirubin 2.1, AST 76, ALP 44, alk phos 182, proBNP 9580, troponin negative 3. EKG showing atrial flutter with RVR, right axis deviation, minimal ST depressions V4 through V6. Echocardiogram repeated today which shows ejection fraction 30-35%, severe right ventricular dilation, RVSP 50, severe torrential tricuspid regurgitation. * Echocardiogram obtained in June 2022 revealed ejection fraction 40%, mild LVH. Severely dilated right ventricle. Mild pulmonary hypertension. Bioprosthetic aortic valve. Moderate to severe TR. * Cardiac catheterization history: 2018 revealing normal coronary arteries 06/29/2023 She reports feeling "lazy" today. Her chest pain is the same. SOB stable, on NC O2. Liver function improving. Creat 1.0. PHYSICAL EXAM: VITAL SIGNS: Reviewed. GENERAL: Well-developed in no acute distress. HEENT: Head is normocephalic. Pupils are equal, round. Sclerae anicteric. Mucous membranes of the mouth are moist. LUNGS: Respirations even and unlabored. Lungs essentially clear to auscultation bilaterally. HEART: Regular rate and rhythm. S1 and S2 heard. 3/6 systolic ejection murmur at the base, 2/6 holosystolic murmur at the apex. ABDOMEN: Soft. Nondistended. Nontender. EXTREMITIES: Normal range of motion. No clubbing or cyanosis. Peripheral pulses intact. No lower extremity edema NEUROLOGIC: Awake and alert. Oriented x 3. 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 She was started on Revatio. Continue Lasix 40mg IV daily, monitor kidney function. Monitor response. Further recs to follow. Objective - Vital Signs Vital signs: Vital Signs Temp 97.3 F L 06/29/23 07:35 Pulse 91 06/29/23 07:35 Resp 17 06/29/23 07:35 BP 87/52 06/29/23 07:35 Pulse Ox 95 06/29/23 08:10 FiO2 Intake & Output 06/28/23 06/29/23 06/29/23 18:59 06:59 18:59 Weight 52.617 kg Other: Voiding Method External Catheter External Catheter # Voids 0 - Labs CBC & Chem 7: 06/29/23 06:21 06/29/23 06:21 Labs: Abnormal Lab Results - Last 24 Hours (Table) 06/29/23 06/29/23 06/29/23 Range/Units 06:21 06:21 06:21 RBC 4.08 L (4.10-5.20) X 10*6/uL Hgb 11.5 L (12.0-15.0) d/dL MCHC 30.3 L (32.0-37.0) d/dL RDW 18.7 H (11.5-14.5) % NRBC/100 WBC Diff 0.03 H (0.00-0.01) X 10*3/uL PT 17.6 H (10.0-12.5) sec INR 1.7 H (<1.2) Potassium 3.3 L (3.5-5.5) mmol/L Anion Gap 14.20 H (4.00-12.00) mmol/L Est GFR (CKD-EPI) 57 L (>=60) Glucose 124 H (70-110) mg/dL Total Bilirubin 1.4 H (0.3-1.2) mg/dL AST 50 H (13-35) U/L Alkaline Phosphatase 162 H (41-126) U/L Albumin 3.5 L (3.8-4.9) d/dL Albumin/Globulin Ratio 1.25 L (1.60-3.17) Ratio
[2023-06-29] MEDS ORDERED: WARFARIN 2.5 MG TAB PO ONE (18:00)
[2023-06-30 04:53] LABS: INR 1.5 (<1.2); Prothrombin Time 15.9 sec (10.0-12.5)
[2023-06-30] MEDS: LEVOTHYROXINE 137 MCG TAB PO SCH (06:05)
[2023-06-30] MEDS: FUROSEMIDE 10 MG/ML 4 ML VIAL IV SCH ×2 (07:51→20:33)
[2023-06-30] MEDS: METOPROLOL TARTRATE 25 MG TAB PO SCH ×2 (07:52→20:33)
[2023-06-30] MEDS: SILDENAFIL 20 MG TAB PO SCH ×3 (07:53→20:37)
[2023-06-30 09:01] LABS: ALT 37 U/L (8-44); AST 39 U/L (13-35); Albumin 3.4 d/dL (3.8-4.9); Albumin/Globulin Ratio 1.26 Ratio (1.60-3.17); Alkaline Phosphatase 156 U/L (41-126); BUN/Creat Ratio 20.33 Ratio (12.00-20.00); Blood Urea Nitrogen 18.3 mg/dL (9.0-27.0); Calcium 8.8 mg/dL (8.7-10.3); Carbon Dioxide 30.9 mmol/L (21.6-31.8); Chloride 99 mmol/L (96-109); Globulin 2.7 d/dL (1.6-3.3); Glucose 85 mg/dL (70-110); Potassium 3.4 mmol/L (3.5-5.5); Sodium 141 mmol/L (135-145); Total Bilirubin 1.3 mg/dL (0.3-1.2); Total Protein 6.1 d/dL (6.2-8.2)
[2023-06-30 09:13] LABS: Basophils # (A) 0.06 X 10*3/uL (0.00-0.10); Basophils % (A) 0.8 %; Eosinophils # (A) 0.36 X 10*3/uL (0.04-0.35); Eosinophils % (A) 4.5 %; HCT 35.4 % (37.2-46.3); HGB 10.9 d/dL (12.0-15.0); Lymphocytes # (A) 2.51 X 10*3/uL (0.90-5.00); Lymphocytes % (A) 31.6 %; MCH 28.7 pg (27.0-32.0); MCHC 30.8 d/dL (32.0-37.0); MCV 93.2 FL (80.0-97.0); Mean Platelet Volume 10.1 FL (9.5-12.2); Monocytes # (A) 0.86 X 10*3/uL (0.20-1.00); Monocytes % (A) 10.8 %; NRBC Per 100 WBC 0 X 10*3/uL (0.00-0.01); Neutrophils # (A) 3.95 X 10*3/uL (1.80-7.70); Neutrophils % (A) 49.7 %; Platelet Count 197 X 10*3/uL (140-440); RDW 18.6 % (11.5-14.5); WBC 7.95 X 10*3/uL (4.50-10.00)
[2023-06-30] MEDS: SYMBICORT 80-4.5 MCG INHALER INHALATION SCH ×2 (09:27→21:36)
[2023-06-30] MEDS ORDERED: POTASSIUM CHLORIDE ER 20 MEQ TAB.ER PO STA (11:40)
--- NOTE | 2023-06-30 11:43 | P.PN ---
Subjective Progress Note Date: 06/30/23 HISTORY OF PRESENT ILLNESS: This is a 78-year-old female with a past medical history significant for atrial fibrillation/A flutter, aortic valve replacement and MV repair in 2018, and nonischemic cardiomyopathy with improved EF. Patient follows in the office with Dr. Flores. We have been asked to see the patient in consultation for SOB. Patient states that shortness breath has been fairly progressive over the last few days. She denies any edema however does have trace to 1+ lower extremity edema. She denies any change in medications. Denies any chest pain or pressure. White blood cell count 8.0, hemoglobin 11.7, INR 1.7, creatinine 0.6, total bilirubin 2.1, AST 76, ALP 44, alk phos 182, proBNP 9580, troponin negative 3. EKG showing atrial flutter with RVR, right axis deviation, minimal ST depressions V4 through V6. Echocardiogram repeated today which shows ejection fraction 30-35%, severe right ventricular dilation, RVSP 50, severe torrential tricuspid regurgitation. * Echocardiogram obtained in June 2022 revealed ejection fraction 40%, mild LVH. Severely dilated right ventricle. Mild pulmonary hypertension. Bioprosthetic aortic valve. Moderate to severe TR. * Cardiac catheterization history: 2018 revealing normal coronary arteries 06/29/2023 She reports feeling "lazy" today. Her chest pain is the same. SOB stable, on NC O2. Liver function improving. Creat 1.0. 06/30 Patient is seen today in follow-up. She denies having any cough or chest pain. No palpitations. She states her difficulty in breathing started about 3 days ago with wheezing. She feels a little bit better today but still having some wheezing. Blood pressure 91/59, heart rate in the 60s to 90s, pulse ox 99% on 2 L nasal cannula. WBC 7.9, hemoglobin 10.9. INR 1.5. Creatinine 0.9 and po tassium 3.4. Patient is maintained on IV Lasix 40 mg every 12 hours. PHYSICAL EXAM: VITAL SIGNS: Reviewed. GENERAL: Well-developed in no acute distress. HEENT: Head is normocephalic. Pupils are equal, round. Sclerae anicteric. Mucous membranes of the mouth are moist. LUNGS: Respirations even and unlabored. Mild bilat wheezing. HEART: Irregular rate and rhythm. S1 and S2 heard. 3/6 systolic ejection murmur at the base, 2/6 holosystolic murmur at the apex. ABDOMEN: Soft. Nondistended. Nontender. EXTREMITIES: Normal range of motion. No clubbing or cyanosis. Peripheral pulses intact. No lower extremity edema NEUROLOGIC: Awake and alert. Oriented x 3. 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 She was started on Revatio. Continue Lasix 40mg IV daily Monitor electrolytes, renal function, I&O and daily weights Add potassium supplement Nurse practitioner note has been reviewed, I agree with the documented findings and plan of care. Patient was seen and examined. Objective - Vital Signs Vital signs: Vital Signs Temp 98.4 F 06/30/23 06:56 Pulse 99 06/30/23 06:56 Resp 16 06/30/23 06:56 BP 91/59 06/30/23 06:56 Pulse Ox 99 06/30/23 06:56 FiO2 Intake & Output 06/29/23 06/30/23 06/30/23 18:59 06:59 18:59 Output Total 1400 1030 Balance -1400 -1030 Output: Urine 1400 1030 Other: Voiding Method External Catheter External Catheter # Voids 1 # Bowel Movements 1 - Labs CBC & Chem 7: 06/30/23 04:19 06/30/23 04:19 Labs: Abnormal Lab Results - Last 24 Hours (Table) 06/29/23 06/29/23 06/30/23 Range/Units 06:21 06:21 04:19 RBC 4.08 L (4.10-5.20) X 10*6/uL Hgb 11.5 L (12.0-15.0) d/dL MCHC 30.3 L (32.0-37.0) d/dL RDW 18.7 H (11.5-14.5) % NRBC/100 WBC Diff 0.03 H (0.00-0.01) X 10*3/uL PT 15.9 H (10.0-12.5) sec INR 1.5 H (<1.2) Potassium 3.3 L (3.5-5.5) mmol/L Anion Gap 14.20 H (4.00-12.00) mmol/L Est GFR (CKD-EPI) 57 L (>=60) Glucose 124 H (70-110) mg/dL Total Bilirubin 1.4 H (0.3-1.2) mg/dL AST 50 H (13-35) U/L Alkaline Phosphatase 162 H (41-126) U/L Albumin 3.5 L (3.8-4.9) d/dL Albumin/Globulin Ratio 1.25 L (1.60-3.17) Ratio
--- NOTE | 2023-06-30 15:48 | P.PN ---
Subjective Progress Note Date: 06/30/23 Mirella San, is an 78-year-old female who presented to [facility] emergency room with a chief complaint of worsening shortness of breath She was evaluated in the emergency room vital examination on presentation revealed a temperature of 98.1 pulse 116 respiration 20 blood pressure 117/89 pulse ox 97% on room air Laboratory data revealed a white blood count of 8.0 hemoglobin 11.7 platelet count 192 INR 1.7 sodium 140 potassium 4.4 chloride 106 CO2 19 BUN 19 creatinine 0.6 Testing in the emergency room revealed chest x-ray done in the emergency room revealed cardiomegaly and generalized haziness of the lung rios Patient was admitted to medical floor for further evaluation and treatment On 06/29/2023 patient alert and oriented 3. Patient still reporting some shortness of breath. Patient remains on IV Lasix. Cardiology services following. 2-D echo completed showing an EF of 30-35%. Her vital signs temp 97.7, heart rate 66, respiratory rate 17, blood pressure 111/64 with a pulse ox of 97% on 2 L On 06/30/2023 patient was seen and examined on the medical floor she is alert and oriented 3 in no apparent distress there is no fever or chills no headache or dizziness no chest pain no shortness of breath at rest, she is still having shortness of breath with activity, there is no nausea or vomiting no abdominal pain no diarrhea no blood in the stools, no burning with urination no frequency or urgency and no hematuria. At this time will add physical therapy and occupational therapy, possible discharge to home in the next 1-2 days. Objective - Vital Signs Vital signs: Vital Signs Temp 98.4 F 06/30/23 06:56 Pulse 99 06/30/23 06:56 Resp 16 06/30/23 06:56 BP 91/59 06/30/23 06:56 Pulse Ox 99 06/30/23 06:56 FiO2 Intake & Output 06/29/23 06/30/23 06/30/23 18:59 06:59 18:59 Output Total 1400 1030 Balance -1400 -1030 Output: Urine 1400 1030 Other: Voiding Method External Catheter External Catheter # Voids 1 # Bowel Movements 1 - Exam In general patient is alert and oriented x 3 in no distress HEENT head normocephalic and atraumatic Neck is supple no JVD no goiter no lymphadenopathy no carotid bruit Chest examination reveals a scattered crackles bilaterally no wheezing Cardiac exam reveals regular heart sounds S1 and S2 no gallops no murmurs Abdomen is soft nontender no organomegaly with normal bowel sounds Extremity exam reveals 2 + edema Neurological examination reveals no gross focal deficits - Labs CBC & Chem 7: 06/30/23 04:19 06/30/23 04:19 Labs: Abnormal Lab Results - Last 24 Hours (Table) 06/29/23 06/29/23 06/30/23 Range/Units 06:21 06:21 04:19 RBC 4.08 L (4.10-5.20) X 10*6/uL Hgb 11.5 L (12.0-15.0) d/dL Hct (37.2-46.3) % MCHC 30.3 L (32.0-37.0) d/dL RDW 18.7 H (11.5-14.5) % Eosinophils # (0.04-0.35) X 10*3/uL NRBC/100 WBC Diff 0.03 H (0.00-0.01) X 10*3/uL PT 15.9 H (10.0-12.5) sec INR 1.5 H (<1.2) Potassium 3.3 L (3.5-5.5) mmol/L Anion Gap 14.20 H (4.00-12.00) mmol/L Est GFR (CKD-EPI) 57 L (>=60) BUN/Creatinine Ratio (12.00-20.00) Ratio Glucose 124 H (70-110) mg/dL Total Bilirubin 1.4 H (0.3-1.2) mg/dL AST 50 H (13-35) U/L Alkaline Phosphatase 162 H (41-126) U/L Total Protein (6.2-8.2) d/dL Albumin 3.5 L (3.8-4.9) d/dL Albumin/Globulin Ratio 1.25 L (1.60-3.17) Ratio 06/30/23 06/30/23 Range/Units 04:19 04:19 RBC 3.80 L (4.10-5.20) X 10*6/uL Hgb 10.9 L (12.0-15.0) d/dL Hct 35.4 L (37.2-46.3) % MCHC 30.8 L (32.0-37.0) d/dL RDW 18.6 H (11.5-14.5) % Eosinophils # 0.36 H (0.04-0.35) X 10*3/uL NRBC/100 WBC Diff (0.00-0.01) X 10*3/uL PT (10.0-12.5) sec INR (<1.2) Potassium 3.4 L (3.5-5.5) mmol/L Anion Gap (4.00-12.00) mmol/L Est GFR (CKD-EPI) (>=60) BUN/Creatinine Ratio 20.33 H (12.00-20.00) Ratio Glucose (70-110) mg/dL Total Bilirubin 1.3 H (0.3-1.2) mg/dL AST 39 H (13-35) U/L Alkaline Phosphatase 156 H (41-126) U/L Total Protein 6.1 L (6.2-8.2) d/dL Albumin 3.4 L (3.8-4.9) d/dL Albumin/Globulin Ratio 1.26 L (1.60-3.17) Ratio Assessment and Plan Plan: Acute exacerbation of congestive heart failure Acute on chronic systolic heart failure Atrial flutter with rapid ventricular response Underlying history of paroxysmal atrial fibrillation History of aortic valve replacement History of mitral valve repair History of pulmonary hypertension Admit to telemetry floor, started on IV Lasix in the emergency room Home medications reviewed and reordered Cardiology consult requested For DVT prophylaxis patient is on oral Coumadin, INR is subtherapeutic, will adjust dose Will follow in a.m. Prognosis is guarded
[2023-06-30] MEDS ORDERED: WARFARIN 3 MG TAB PO ONE (18:00)
[2023-06-30] MEDS: POTASSIUM CHLORIDE ER 20 MEQ TAB.ER PO SCH (20:33)
[2023-07-01] MEDS: LEVOTHYROXINE 137 MCG TAB PO SCH (06:40)
[2023-07-01 07:07] LABS: ALT 34 U/L (4-34); AST 36 U/L (14-36); African American GFR (CKD) >90 (>60 ml/min/1.73 sqM); Albumin 3.4 g/dL (3.5-5.0); Alkaline Phosphatase 153 U/L (38-126); Anion Gap 9 mmol/L; Blood Urea Nitrogen 21 mg/dL (7-17); Calcium 8.6 mg/dL (8.4-10.2); Carbon Dioxide 33 mmol/L (22-30); Chloride 97 mmol/L (98-107); Globulin 3.3 g/dL; Glucose 93 mg/dL (74-99); Non-African American GFR(CKD) 81 (>60 ml/min/1.73 sqM); Potassium 3.6 mmol/L (3.5-5.1); Sodium 139 mmol/L (137-145); Total Bilirubin 1.2 mg/dL (0.2-1.3); Total Protein 6.7 g/dL (6.3-8.2)
[2023-07-01 07:21] LABS: INR 1.4 (<1.2); Prothrombin Time 14.3 sec (10.0-12.5)
--- NOTE | 2023-07-01 08:57 | P.PN ---
Subjective Progress Note Date: 07/01/23 Mirella San, is an 78-year-old female who presented to [facility] emergency room with a chief complaint of worsening shortness of breath She was evaluated in the emergency room vital examination on presentation revealed a temperature of 98.1 pulse 116 respiration 20 blood pressure 117/89 pulse ox 97% on room air Laboratory data revealed a white blood count of 8.0 hemoglobin 11.7 platelet count 192 INR 1.7 sodium 140 potassium 4.4 chloride 106 CO2 19 BUN 19 creatinine 0.6 Testing in the emergency room revealed chest x-ray done in the emergency room revealed cardiomegaly and generalized haziness of the lung rios Patient was admitted to medical floor for further evaluation and treatment On 06/29/2023 patient alert and oriented 3. Patient still reporting some shortness of breath. Patient remains on IV Lasix. Cardiology services following. 2-D echo completed showing an EF of 30-35%. Her vital signs temp 97.7, heart rate 66, respiratory rate 17, blood pressure 111/64 with a pulse ox of 97% on 2 L On 06/30/2023 patient was seen and examined on the medical floor she is alert and oriented 3 in no apparent distress there is no fever or chills no headache or dizziness no chest pain no shortness of breath at rest, she is still having shortness of breath with activity, there is no nausea or vomiting no abdominal pain no diarrhea no blood in the stools, no burning with urination no frequency or urgency and no hematuria. At this time will add physical therapy and occupational therapy, possible discharge to home in the next 1-2 days. on 07/01/23 patient is alert and oriented 3. patient reports some improvement with shortness of breath. Patient remains on IV Lasix. Patient denies chest pain. Patient denies nausea vomiting or diarrhea. Patient denies any urinary burning or frequency. discharge in the next 24-48 hours Objective - Vital Signs Vital signs: Vital Signs Temp 98.4 F 07/01/23 07:27 Pulse 60 07/01/23 07:35 Resp 19 07/01/23 07:35 BP 100/60 07/01/23 07:27 Pulse Ox 98 07/01/23 07:27 FiO2 Intake & Output 06/30/23 07/01/23 07/01/23 18:59 06:59 18:59 Output Total 1000 600 600 Balance -1000 -600 -600 Output: Urine 1000 600 600 Other: Voiding Method External Catheter External Catheter # Voids 1 # Bowel Movements 1 - Exam In general patient is alert and oriented x 3 in no distress HEENT head normocephalic and atraumatic Neck is supple no JVD no goiter no lymphadenopathy no carotid bruit Chest examination reveals a scattered crackles bilaterally no wheezing Cardiac exam reveals regular heart sounds S1 and S2 no gallops no murmurs Abdomen is soft nontender no organomegaly with normal bowel sounds Extremity exam reveals 2 + edema Neurological examination reveals no gross focal deficits - Labs CBC & Chem 7: 06/30/23 04:19 07/01/23 06:21 Labs: Abnormal Lab Results - Last 24 Hours (Table) 06/30/23 06/30/23 07/01/23 Range/Units 04:19 04:19 06:21 RBC 3.80 L (4.10-5.20) X 10*6/uL Hgb 10.9 L (12.0-15.0) d/dL Hct 35.4 L (37.2-46.3) % MCHC 30.8 L (32.0-37.0) d/dL RDW 18.6 H (11.5-14.5) % Eosinophils # 0.36 H (0.04-0.35) X 10*3/uL PT 14.3 H (10.0-12.5) sec INR 1.4 H (<1.2) Potassium 3.4 L (3.5-5.5) mmol/L Chloride (98-107) mmol/L Carbon Dioxide (22-30) mmol/L BUN (7-17) mg/dL BUN/Creatinine Ratio 20.33 H (12.00-20.00) Ratio Total Bilirubin 1.3 H (0.3-1.2) mg/dL AST 39 H (13-35) U/L Alkaline Phosphatase 156 H (41-126) U/L Total Protein 6.1 L (6.2-8.2) d/dL Albumin 3.4 L (3.8-4.9) d/dL Albumin/Globulin Ratio 1.26 L (1.60-3.17) Ratio 07/01/23 Range/Units 06:21 RBC (4.10-5.20) X 10*6/uL Hgb (12.0-15.0) d/dL Hct (37.2-46.3) % MCHC (32.0-37.0) d/dL RDW (11.5-14.5) % Eosinophils # (0.04-0.35) X 10*3/uL PT (10.0-12.5) sec INR (<1.2) Potassium (3.5-5.5) mmol/L Chloride 97 L (98-107) mmol/L Carbon Dioxide 33 H (22-30) mmol/L BUN 21 H (7-17) mg/dL BUN/Creatinine Ratio (12.00-20.00) Ratio Total Bilirubin (0.3-1.2) mg/dL AST (13-35) U/L Alkaline Phosphatase 153 H (41-126) U/L Total Protein (6.2-8.2) d/dL Albumin 3.4 L (3.8-4.9) d/dL Albumin/Globulin Ratio (1.60-3.17) Ratio Assessment and Plan Assessment: Acute exacerbation of congestive heart failure Acute on chronic systolic heart failure Atrial flutter with rapid ventricular response Underlying history of paroxysmal atrial fibrillation History of aortic valve replacement History of mitral valve repair History of pulmonary hypertension Admit to telemetry floor, started on IV Lasix in the emergency room Home medications reviewed and reordered Cardiology consult requested For DVT prophylaxis patient is on oral Coumadin, INR is subtherapeutic, will adjust dose Will follow in a.m. Prognosis is guarded
[2023-07-01] MEDS: SYMBICORT 80-4.5 MCG INHALER INHALATION SCH ×2 (09:03→20:54)
[2023-07-01] MEDS ORDERED: ENOXAPARIN 40 MG/0.4 ML SYRINGE SQ ONE (09:08)
[2023-07-01] MEDS: METOPROLOL TARTRATE 25 MG TAB PO SCH ×2 (10:32→22:08)
[2023-07-01] MEDS: POTASSIUM CHLORIDE ER 20 MEQ TAB.ER PO SCH ×2 (10:34→22:08)
[2023-07-01] MEDS: FUROSEMIDE 10 MG/ML 4 ML VIAL IV SCH (10:36)
--- NOTE | 2023-07-01 11:16 | P.PN ---
Subjective Progress Note Date: 07/01/23 HISTORY OF PRESENT ILLNESS: This is a 78-year-old female with a past medical history significant for atrial fibrillation/A flutter, aortic valve replacement and MV repair in 2018, and nonischemic cardiomyopathy with improved EF. Patient follows in the office with Dr. Flores. We have been asked to see the patient in consultation for SOB. Patient states that shortness breath has been fairly progressive over the last few days. She denies any edema however does have trace to 1+ lower extremity edema. She denies any change in medications. Denies any chest pain or pressure. White blood cell count 8.0, hemoglobin 11.7, INR 1.7, creatinine 0.6, total bilirubin 2.1, AST 76, ALP 44, alk phos 182, proBNP 9580, troponin negative 3. EKG showing atrial flutter with RVR, right axis deviation, minimal ST depressions V4 through V6. Echocardiogram repeated today which shows ejection fraction 30-35%, severe right ventricular dilation, RVSP 50, severe torrential tricuspid regurgitation. * Echocardiogram obtained in June 2022 revealed ejection fraction 40%, mild LVH. Severely dilated right ventricle. Mild pulmonary hypertension. Bioprosthetic aortic valve. Moderate to severe TR. * Cardiac catheterization history: 2018 revealing normal coronary arteries 06/29/2023 She reports feeling "lazy" today. Her chest pain is the same. SOB stable, on [place] O2. Liver function improving. Creat 1.0. 06/30 Patient is seen today in follow-up. She denies having any cough or chest pain. No palpitations. She states her difficulty in breathing started about 3 days ago with wheezing. She feels a little bit better today but still having some wheezing. Blood pressure 91/59, heart rate in the 60s to 90s, pulse ox 99% on 2 L nasal cannula. WBC 7.9, hemoglobin 10.9. INR 1.5. Creatinine 0.9 and po tassium 3.4. Patient is maintained on IV Lasix 40 mg every 12 hours. 07/01 The patient had lower blood pressures during the evening. She occasionally has tachycardia but otherwise running in the 60s. She thinks her breathing is a little bit better today and in general feels a little bit better. She remains on oxygen with pulse ox of 98% on 2 L. She states she is occasionally dizzy. She is currently on Lasix 40 mg IV twice daily. Repeat blood work reveals INR 1.4, potassium 3.6, BUN 21 creatinine 0.7. PHYSICAL EXAM: VITAL SIGNS: Reviewed. GENERAL: Well-developed in no acute distress. HEENT: Head is normocephalic. Pupils are equal, round. Sclerae anicteric. Mucous membranes of the mouth are moist. LUNGS: Respirations even and unlabored. Mild bilat wheezing. HEART: Irregular rate and rhythm. S1 and S2 heard. 3/6 systolic ejection murmur at the base, 2/6 holosystolic murmur at the apex. ABDOMEN: Soft. Nondistended. Nontender. EXTREMITIES: Normal range of motion. No clubbing or cyanosis. Peripheral pulses intact. No lower extremity edema NEUROLOGIC: Awake and alert. Oriented x 3. 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 She was started on Revatio. transition IV Lasix to oral 40 mg daily, patient may go home on this dose Monitor electrolytes, renal function, I&O and daily weights Add potassium supplement Nurse practitioner note has been reviewed, I agree with the documented findings and plan of care. Patient was seen and examined. Objective - Vital Signs Vital signs: Vital Signs Temp 98.0 F 07/01/23 01:12 Pulse 60 07/01/23 01:12 Resp 19 07/01/23 01:12 BP 89/57 07/01/23 03:27 Pulse Ox 100 07/01/23 01:12 FiO2 Intake & Output 06/30/23 07/01/23 07/01/23 18:59 06:59 18:59 Output Total 1000 600 Balance -1000 -600 Output: Urine 1000 600 Other: Voiding Method External Catheter - Labs CBC & Chem 7: 06/30/23 04:19 07/01/23 06:21 Labs: Abnormal Lab Results - Last 24 Hours (Table) 06/30/23 06/30/23 07/01/23 Range/Units 04:19 04:19 06:21 RBC 3.80 L (4.10-5.20) X 10*6/uL Hgb 10.9 L (12.0-15.0) d/dL Hct 35.4 L (37.2-46.3) % MCHC 30.8 L (32.0-37.0) d/dL RDW 18.6 H (11.5-14.5) % Eosinophils # 0.36 H (0.04-0.35) X 10*3/uL PT 14.3 H (10.0-12.5) sec INR 1.4 H (<1.2) Potassium 3.4 L (3.5-5.5) mmol/L Chloride (98-107) mmol/L Carbon Dioxide (22-30) mmol/L BUN (7-17) mg/dL BUN/Creatinine Ratio 20.33 H (12.00-20.00) Ratio Total Bilirubin 1.3 H (0.3-1.2) mg/dL AST 39 H (13-35) U/L Alkaline Phosphatase 156 H (41-126) U/L Total Protein 6.1 L (6.2-8.2) d/dL Albumin 3.4 L (3.8-4.9) d/dL Albumin/Globulin Ratio 1.26 L (1.60-3.17) Ratio 07/01/23 Range/Units 06:21 RBC (4.10-5.20) X 10*6/uL Hgb (12.0-15.0) d/dL Hct (37.2-46.3) % MCHC (32.0-37.0) d/dL RDW (11.5-14.5) % Eosinophils # (0.04-0.35) X 10*3/uL PT (10.0-12.5) sec INR (<1.2) Potassium (3.5-5.5) mmol/L Chloride 97 L (98-107) mmol/L Carbon Dioxide 33 H (22-30) mmol/L BUN 21 H (7-17) mg/dL BUN/Creatinine Ratio (12.00-20.00) Ratio Total Bilirubin (0.3-1.2) mg/dL AST (13-35) U/L Alkaline Phosphatase 153 H (41-126) U/L Total Protein (6.2-8.2) d/dL Albumin 3.4 L (3.8-4.9) d/dL Albumin/Globulin Ratio (1.60-3.17) Ratio
[2023-07-01 11:21] LABS: Basophils # (A) 0.09 X 10*3/uL (0.00-0.10); Eosinophils # (A) 0.34 X 10*3/uL (0.04-0.35); Eosinophils % (A) 3.9 %; HCT 36.9 % (37.2-46.3); Lymphocytes # (A) 2.17 X 10*3/uL (0.90-5.00); Lymphocytes % (A) 24.7 %; MCH 28.1 pg (27.0-32.0); MCHC 29.8 d/dL (32.0-37.0); MCV 94.1 FL (80.0-97.0); Mean Platelet Volume 10.8 FL (9.5-12.2); Monocytes # (A) 0.95 X 10*3/uL (0.20-1.00); Monocytes % (A) 10.8 %; NRBC Per 100 WBC 0 X 10*3/uL (0.00-0.01); Neutrophils % (A) 57.1 %; Platelet Count 184 X 10*3/uL (140-440); RBC 3.92 X 10*6/uL (4.10-5.20); RDW 18.4 % (11.5-14.5); WBC 8.77 X 10*3/uL (4.50-10.00)
[2023-07-01] MEDS: SILDENAFIL 20 MG TAB PO SCH ×4 (13:02→22:08)
[2023-07-01] MEDS ORDERED: WARFARIN 3 MG TAB PO ONE (18:00)
[2023-07-02] MEDS: LEVOTHYROXINE 137 MCG TAB PO SCH (06:52)
[2023-07-02 07:18] LABS: INR 1.5 (<1.2)
[2023-07-02] MEDS: METOPROLOL TARTRATE 25 MG TAB PO SCH ×2 (08:03→08:58)
[2023-07-02] MEDS: SILDENAFIL 20 MG TAB PO SCH (08:07)
[2023-07-02] MEDS: POTASSIUM CHLORIDE ER 20 MEQ TAB.ER PO SCH (08:07)
[2023-07-02] MEDS ORDERED: FUROSEMIDE 40 MG TAB PO SCH (09:00)
[2023-07-02] MEDS: SYMBICORT 80-4.5 MCG INHALER INHALATION SCH (09:11)
[2023-07-02 09:13] LABS: Basophils # (A) 0.07 X 10*3/uL (0.00-0.10); Basophils % (A) 0.8 %; Eosinophils # (A) 0.28 X 10*3/uL (0.04-0.35); Eosinophils % (A) 3.3 %; HCT 37.6 % (37.2-46.3); HGB 11.5 d/dL (12.0-15.0); Lymphocytes # (A) 1.76 X 10*3/uL (0.90-5.00); Lymphocytes % (A) 20.8 %; MCH 28.3 pg (27.0-32.0); MCHC 30.6 d/dL (32.0-37.0); MCV 92.4 FL (80.0-97.0); Mean Platelet Volume 10.6 FL (9.5-12.2); Monocytes # (A) 0.92 X 10*3/uL (0.20-1.00); Monocytes % (A) 10.9 %; NRBC Per 100 WBC 0 X 10*3/uL (0.00-0.01); Neutrophils # (A) 5.28 X 10*3/uL (1.80-7.70); Neutrophils % (A) 62.4 %; Platelet Count 192 X 10*3/uL (140-440); RBC 4.07 X 10*6/uL (4.10-5.20); RDW 18.4 % (11.5-14.5); WBC 8.46 X 10*3/uL (4.50-10.00)
--- NOTE | 2023-07-02 11:01 | P.PN ---
Subjective Progress Note Date: 07/02/23 HISTORY OF PRESENT ILLNESS: This is a 78-year-old female with a past medical history significant for atrial fibrillation/A flutter, aortic valve replacement and MV repair in 2018, and nonischemic cardiomyopathy with improved EF. Patient follows in the office with Dr. Flores. We have been asked to see the patient in consultation for SOB. Patient states that shortness breath has been fairly progressive over the last few days. She denies any edema however does have trace to 1+ lower extremity edema. She denies any change in medications. Denies any chest pain or pressure. White blood cell count 8.0, hemoglobin 11.7, INR 1.7, creatinine 0.6, total bilirubin 2.1, AST 76, ALP 44, alk phos 182, proBNP 9580, troponin negative 3. EKG showing atrial flutter with RVR, right axis deviation, minimal ST depressions V4 through V6. Echocardiogram repeated today which shows ejection fraction 30-35%, severe right ventricular dilation, RVSP 50, severe torrential tricuspid regurgitation. * Echocardiogram obtained in June 2022 revealed ejection fraction 40%, mild LVH. Severely dilated right ventricle. Mild pulmonary hypertension. Bioprosthetic aortic valve. Moderate to severe TR. * Cardiac catheterization history: 2018 revealing normal coronary arteries 06/29/2023 She reports feeling "lazy" today. Her chest pain is the same. SOB stable, on NC O2. Liver function improving. Creat 1.0. 06/30 Patient is seen today in follow-up. She denies having any cough or chest pain. No palpitations. She states her difficulty in breathing started about 3 days ago with wheezing. She feels a little bit better today but still having some wheezing. Blood pressure 91/59, heart rate in the 60s to 90s, pulse ox 99% on 2 L nasal cannula. WBC 7.9, hemoglobin 10.9. INR 1.5. Creatinine 0.9 and po tassium 3.4. Patient is maintained on IV Lasix 40 mg every 12 hours. 07/01 The patient had lower blood pressures during the evening. She occasionally has tachycardia but otherwise running in the 60s. She thinks her breathing is a little bit better today and in general feels a little bit better. She remains on oxygen with pulse ox of 98% on 2 L. She states she is occasionally dizzy. She is currently on Lasix 40 mg IV twice daily. Repeat blood work reveals INR 1.4, potassium 3.6, BUN 21 creatinine 0.7. 07/02 Patient states that her night was okay. She states her breathing is a little bit better. She remains in atrial fibrillation with controlled rate. Blood pressure this morning 95/63 and heart rate 84. She is currently on oral Lasix 40 mg daily with potassium supplementation. INR is 1.5. PHYSICAL EXAM: VITAL SIGNS: Reviewed. GENERAL: Well-developed in no acute distress. HEENT: Head is normocephalic. Pupils are equal, round. Sclerae anicteric. Mucous membranes of the mouth are moist. LUNGS: Respirations even and unlabored. Mild bilat wheezing. HEART: Irregular rate and rhythm. S1 and S2 heard. 3/6 systolic ejection murmur at the base, 2/6 holosystolic murmur at the apex. ABDOMEN: Soft. Nondistended. Nontender. EXTREMITIES: Normal range of motion. No clubbing or cyanosis. Peripheral pulses intact. No lower extremity edema NEUROLOGIC: Awake and alert. Oriented x 3. 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 She was started on Revatio. Continue Lasix oral 40 mg daily, patient may go home on this dose Monitor electrolytes, renal function, I&O and daily weights Add potassium supplement Patient is cleared for discharge from cardiology may follow-up in the office in one to 2 weeks. Nurse practitioner note has been reviewed, I agree with the documented findings and plan of care. Patient was seen and examined. Objective - Vital Signs Vital signs: Vital Signs Temp 98.4 F 07/02/23 07:38 Pulse 84 07/02/23 07:57 Resp 17 07/02/23 07:38 BP 95/63 07/02/23 07:57 Pulse Ox 98 07/02/23 07:38 FiO2 Intake & Output 07/01/23 07/02/23 07/02/23 18:59 06:59 18:59 Intake Total 325 118 Output Total 600 200 Balance -275 -82 Weight 47.5 kg Intake: Oral 325 118 Output: Urine 600 200 Other: Voiding Method External Catheter # Voids 2 # Bowel Movements 1 - Labs CBC & Chem 7: 07/02/23 05:45 07/01/23 06:21 Labs: Abnormal Lab Results - Last 24 Hours (Table) 07/01/23 07/02/23 Range/Units 06:21 05:45 RBC 3.92 L (4.10-5.20) X 10*6/uL Hgb 11.0 L (12.0-15.0) d/dL Hct 36.9 L (37.2-46.3) % MCHC 29.8 L (32.0-37.0) d/dL RDW 18.4 H (11.5-14.5) % PT 15.0 H (10.0-12.5) sec INR 1.5 H (<1.2)
[2023-07-02 11:19] LABS: ALT 27 U/L (8-44); AST 26 U/L (13-35); Albumin 3.6 d/dL (3.8-4.9); Albumin/Globulin Ratio 1.33 Ratio (1.60-3.17); Alkaline Phosphatase 154 U/L (41-126); BUN/Creat Ratio 26.56 Ratio (12.00-20.00); Blood Urea Nitrogen 23.9 mg/dL (9.0-27.0); Calcium 9.1 mg/dL (8.7-10.3); Carbon Dioxide 30.7 mmol/L (21.6-31.8); Chloride 98 mmol/L (96-109); Globulin 2.7 d/dL (1.6-3.3); Glucose 88 mg/dL (70-110); Potassium 3.8 mmol/L (3.5-5.5); Sodium 139 mmol/L (135-145); Total Bilirubin 1.1 mg/dL (0.3-1.2); Total Protein 6.3 d/dL (6.2-8.2)
--- NOTE | 2023-07-02 14:03 | P.DS ---
Providers Date of admission: 06/28/23 08:44 Expected date of discharge: 07/02/23 Attending physician: Olya Olson Consults: 06/28/23 08:44 Consult Physician Routine Consulting Provider: [facility] Consult Reason/Comments: chf exacerbation Do you want consulting provider notified?: Yes Primary care physician: Olya Whitney [facility] Course: Diagnosis on discharge: Acute exacerbation of congestive heart failure Acute on chronic systolic heart failure Atrial flutter with rapid ventricular response Underlying history of paroxysmal atrial fibrillation History of aortic valve replacement History of mitral valve repair History of pulmonary hypertension Hospital course: Mirella San, is an 78-year-old female who presented to [facility] emergency room with a chief complaint of worsening shortness of breath She was evaluated in the emergency room vital examination on presentation revealed a temperature of 98.1 pulse 116 respiration 20 blood pressure 117/89 pulse ox 97% on room air Laboratory data revealed a white blood count of 8.0 hemoglobin 11.7 platelet count 192 INR 1.7 sodium 140 potassium 4.4 chloride 106 CO2 19 BUN 19 creatinine 0.6 Testing in the emergency room revealed chest x-ray done in the emergency room revealed cardiomegaly and generalized haziness of the lung rios Patient was admitted to medical floor for further evaluation and treatment On 06/29/2023 patient alert and oriented 3. Patient still reporting some shortness of breath. Patient remains on IV Lasix. Cardiology services following. 2-D echo completed showing an EF of 30-35%. Her vital signs temp 97.7, heart rate 66, respiratory rate 17, blood pressure 111/64 with a pulse ox of 97% on 2 L On 06/30/2023 patient was seen and examined on the medical floor she is alert and oriented 3 in no apparent distress there is no fever or chills no headache or dizziness no chest pain no shortness of breath at rest, she is still having shortness of breath with activity, there is no nausea or vomiting no abdominal pain no diarrhea no blood in the stools, no burning with urination no frequency or urgency and no hematuria. At this time will add physical therapy and occupational therapy, possible discharge to home in the next 1-2 days. on 07/01/23 patient is alert and oriented 3. patient reports some improvement with shortness of breath. Patient remains on IV Lasix. Patient denies chest pain. Patient denies nausea vomiting or diarrhea. Patient denies any urinary burning or frequency. discharge in the next 24-48 hours On 07/02/2023 patient was seen and examined on the medical floor she is alert and oriented 3 in no apparent distress there is no fever or chills no headache or dizziness no chest pain or shortness of breath has improved there is no nausea or vomiting no abdominal pain no diarrhea and no urinary symptoms. She was cleared by cardiology for discharge, dose of Coumadin was adjusted up to 2.5 mg daily, sildenafil 20 mg by mouth 3 times a day was added to medication regimen, Lasix and potassium were added to her medication regimen. She will be followed in our office in 3-4 days. Patient Condition at Discharge: Stable Plan - Discharge Summary Discharge Rx Participant: Yes New Discharge Prescriptions: New Warfarin [Coumadin] 2.5 mg PO DAILY 30 Days #30 tab Potassium Chloride ER [K-Dur 20] 20 meq PO BID 90 Days #180 tab Furosemide [Lasix] 40 mg PO DAILY 90 Days #90 tab Sildenafil [Revatio] 20 mg PO TID 90 Days #30 tab Continue Albuterol Sulfate [Proair Hfa] 2 puff INHALATION RT-Q6H PRN PRN Reason: Shortness Of Breath Ascorbic Acid [Vitamin C] 500 mg PO DAILY Cholecalciferol (Vitamin D3) [Vitamin D3 (125 MCG = 5,000 IU)] 125 mcg PO DAILY Ipratropium-Albuterol Nebulize [Duoneb 0.5 mg-3 mg/3 ml Soln] 3 ml INHALATION RT-Q6H PRN PRN Reason: Shortness Of Breath Metoprolol Tartrate [Lopressor] 25 mg PO DAILY Fluticasone Propion/Salmeterol [Advair 100-50 Diskus] 1 puff INHALATION RT- BID Levothyroxine Sodium [Synthroid] 137 mcg PO DAILY 30 Days #30 tab HYDROcodone/APAP 10-325MG [[place] 10-325] 1 tab PO Q8H PRN PRN Reason: Pain Discontinued Warfarin [Coumadin] 2 mg PO HS Propafenone HCl 150 mg PO BID Meclizine [Antivert] 25 mg PO BID PRN #10 tab PRN Reason: Vertigo Discharge Medication List Albuterol Sulfate [Proair Hfa] 2 puff INHALATION RT-Q6H PRN 07/28/19 [History] Ascorbic Acid [Vitamin C] 500 mg PO DAILY 05/08/21 [History] Cholecalciferol (Vitamin D3) [Vitamin D3 (125 MCG = 5,000 IU)] 125 mcg PO DAILY 06/06/22 [History] Ipratropium-Albuterol Nebulize [Duoneb 0.5 mg-3 mg/3 ml Soln] 3 ml INHALATION RT-Q6H PRN 06/06/22 [History] Levothyroxine Sodium [Synthroid] 137 mcg PO DAILY 30 Days #30 tab 06/08/22 [Rx] Metoprolol Tartrate [Lopressor] 25 mg PO DAILY 09/06/22 [History] Fluticasone Propion/Salmeterol [Advair 100-50 Diskus] 1 puff INHALATION RT-BID 06/07/23 [History] HYDROcodone/APAP 10-325MG [[place] 10-325] 1 tab PO Q8H PRN 06/28/23 [History] Furosemide [Lasix] 40 mg PO DAILY 90 Days #90 tab 07/02/23 [Rx] Potassium Chloride ER [K-Dur 20] 20 meq PO BID 90 Days #180 tab 07/02/23 [Rx] Sildenafil [Revatio] 20 mg PO TID 90 Days #30 tab 07/02/23 [Rx] Warfarin [Coumadin] 2.5 mg PO DAILY 30 Days #30 tab 07/02/23 [Rx] Follow up Appointment(s)/Referral(s): Alexx Flores MD [STAFF PHYSICIAN] - 1 Week Olya Olson MD [Primary Care Provider] - 1-2 days
[2023-07-02 14:27] VITALS: BP 95/55; PULSE 99; RESP 16; TEMP 97.4
[2023-07-02] MEDS ORDERED: WARFARIN 3 MG TAB PO ONE (18:00)
== END 2023-07-02 15:47 | disposition home or self-care (01) | DRG 291 ==
LOC: EC 06:50 → 4SSUR 08:44
PROVIDERS: ADMIT Internal Medicine; ATTEND Internal Medicine
DX: I11.0 Hypertensive heart disease with heart failure (principal); I50.23 Acute on chronic systolic (congestive) heart failure; J96.21 Acute and chronic respiratory failure with hypoxia; I48.3 Typical atrial flutter; R79.1 Abnormal coagulation profile; I48.0 Paroxysmal atrial fibrillation; M06.9 Rheumatoid arthritis, unspecified; J44.9 Chronic obstructive pulmonary disease, unspecified; I42.8 Other cardiomyopathies; I27.20 Pulmonary hypertension, unspecified; I07.1 Rheumatic tricuspid insufficiency; E03.9 Hypothyroidism, unspecified; K57.90 Diverticulosis of intestine, part unspecified, without perforation or abscess without bleeding; D50.9 Iron deficiency anemia, unspecified; K21.9 Gastro-esophageal reflux disease without esophagitis; M19.90 Unspecified osteoarthritis, unspecified site; Z96.642 Presence of left artificial hip joint; Z95.3 Presence of xenogenic heart valve; Z95.1 Presence of aortocoronary bypass graft; Z79.899 Other long term (current) drug therapy; Z79.890 Hormone replacement therapy; Z79.01 Long term (current) use of anticoagulants; Z99.81 Dependence on supplemental oxygen; Z87.440 Personal history of urinary (tract) infections
CPT/HCPCS: 36415; 71046; 80053; 81001; 83735; 83880; 84484; 85025; 85610; 85730; 87636; 93005; 93306; 94640; 94760; 96374; 96376; 99291

== ENCOUNTER 2023-07-27 07:38 | Inpatient (IN) | payer MEDICARE, OTHER ==
--- NOTE | 2023-07-27 08:20 | ED ---
SOB HPI - General Chief Complaint: Shortness of Breath Stated Complaint: SOB Time Seen by Provider: 07/27/23 07:40 Source: patient, EMS Mode of arrival: EMS Limitations: no limitations - History of Present Illness Initial Comments: 78-year-old female with past medical history of atrial flutter on Coumadin, COPD on home O2 as needed, congestive heart failure on Lasix, atrial valve replacement and mitral valve repair who presents to the emergency room reporting shortness of breath. Patient was hospitalized recently with similar complaints. States that she has been taking her Lasix one to 2 times daily. Reports that she forgot her Coumadin last night. She has been wearing her oxygen however she feels as if it is effective and has been attempting to get a hold of the oxygen company however they have been unable to come out and service her. States that she has continued to be short of breath however it has worsened over the past couple of days. She denies any chest pain. She was provided with a DuoNeb breathing treatment prior to arrival. Denies any worsening lower extremity edema. No other alleviating, precipitating or modifying factors - Related Data Home Medications Medication Instructions Recorded Confirmed Albuterol Sulfate [Proair Hfa] 2 puff INHALATION RT-Q6H PRN 07/28/19 07/27/23 Ascorbic Acid [Vitamin C] 500 mg PO DAILY 05/08/21 07/27/23 Cholecalciferol (Vitamin D3) 125 mcg PO DAILY 06/06/22 07/27/23 [Vitamin D3 (125 MCG = 5,000 IU)] Ipratropium-Albuterol Nebulize 3 ml INHALATION RT-Q6H PRN 06/06/22 07/27/23 [Duoneb 0.5 mg-3 mg/3 ml Soln] Metoprolol Tartrate [Lopressor] 25 mg PO DAILY 09/06/22 07/27/23 Fluticasone Propion/Salmeterol 1 puff INHALATION RT-BID 06/07/23 07/27/23 [Advair 100-50 Diskus] HYDROcodone/APAP 10-325MG [[place] 1 tab PO Q8H PRN 06/28/23 07/27/23 10-325] Warfarin [Coumadin] 2.5 mg PO HS 07/27/23 07/27/23 Previous Rx's Medication Instructions Recorded Levothyroxine Sodium [Synthroid] 137 mcg PO DAILY 30 Days #30 tab 06/08/22 Furosemide [Lasix] 40 mg PO DAILY 90 Days #90 tab 07/02/23 Potassium Chloride ER [K-Dur 20] 20 meq PO BID 90 Days #180 tab 07/02/23 Sildenafil [Revatio] 20 mg PO TID 90 Days #30 tab 07/02/23 Allergies Allergy/AdvReac Type Severity Reaction Status Date / Time lisinopril Allergy Unknown Verified 07/27/23 11:07 Review of Systems ROS Statement: Those systems with pertinent positive or pertinent negative responses have been documented in the HPI. ROS Other: All systems not noted in ROS Statement are negative. Past Medical History Past Medical History: Atrial Fibrillation, Heart Failure, COPD, GERD/Reflux, Osteoarthritis (OA), Renal Disease, Rheumatoid Arthritis (RA), Supraventricular Tachycardia (SVT), Thyroid Disorder Additional Past Medical History / Comment(s): Valvular heart disease with previous aortic valve replacement and a mitral valve repair, congestion heart failure, Paroxysmal Afib, history of SVT, history of nonsustained VT, SOB with exertion, home O2 at 2L/NC usually prn but lately ATC, arthritis, RA several joints, current L elbow pain/swelling-had "injection", nephrolithiasis, hypothyroid, diverticular dx, UTI, iron deficiency anemia. 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 History of Any Multi-Drug Resistant Organisms: None Reported Past Surgical History: Coronary Bypass/CABG, Heart Catheterization, Hysterectomy, Joint Replacement, Orthopedic Surgery Additional Past Surgical History / Comment(s): Geoff total knees arthroplasty,lt hip arthroplasty, goiter removed 1962, partial thyroidectomy, cataracts removed with lens implants, REVERSE TOTAL RIGHT SHOULDER; Rotator cuff R shoulder, cervical fusion/injections, colonoscopy 2016(next after 5yr), MATTHEW, valve surgery at [facility] 10/13/17 Prosthetic Aortic valve and mitral valve repair. Total abdominal hysterectomy in the 1980s. Past Anesthesia/Blood Transfusion Reactions: Postoperative Nausea & Vomiting (PONV) Past Psychological History: No Psychological Hx Reported Smoking Status: Former smoker Past Alcohol Use History: Occasional Past Drug Use History: None Reported - Past Family History Father Family Medical History: Cancer, Myocardial Infarction ([place]) Additional Family Medical History / Comment(s): in his 80's of a mi. Colon cancer. Mother Family Medical History: No Reported History Additional Family Medical History / Comment(s): age 88 . hx smoking. Daughter(s) Family Medical History: Cancer Additional Family Medical History / Comment(s): from vulvar cancer. General Exam Limitations: no limitations General appearance: alert, in no apparent distress Head exam: Present: atraumatic, normocephalic, normal inspection Eye exam: Present: normal appearance, PERRL, EOMI. Absent: scleral icterus, conjunctival injection, periorbital swelling ENT exam: Present: normal exam, mucous membranes moist Neck exam: Present: normal inspection. Absent: tenderness, meningismus, lymphadenopathy Respiratory exam: Present: wheezes, rales, decreased breath sounds. Absent: respiratory distress, rhonchi, stridor Cardiovascular Exam: Present: regular rate, normal rhythm, normal heart sounds. Absent: systolic murmur, diastolic murmur, rubs, gallop, clicks GI/Abdominal exam: Present: soft, normal bowel sounds. Absent: distended, tenderness, guarding, rebound, rigid Extremities exam: Present: normal inspection, full ROM, normal capillary refill, pedal edema. Absent: tenderness, joint swelling, calf tenderness Back exam: Present: normal inspection Neurological exam: Present: alert, oriented X3, CN II-XII intact Psychiatric exam: Present: normal affect, normal mood Skin exam: Present: warm, dry, intact, normal color. Absent: rash Course Vital Signs 07/27/23 07/27/23 07/27/23 07:42 07:45 07:49 Temperature 98.1 F Pulse Rate 138 H Pulse Rate [ Access Developer ] Respiratory 26 H 26 H Rate Blood Pressure 129/89 Blood Pressure [Left Arm] O2 Sat by Pulse 100 98 Oximetry 07/27/23 07/27/23 07/27/23 08:00 08:30 09:00 Temperature Pulse Rate 137 H 135 H 137 H Pulse Rate [ Access Developer ] Respiratory 26 H 26 H 24 Rate Blood Pressure 129/89 124/96 115/83 Blood Pressure [Left Arm] O2 Sat by Pulse 88 L 99 98 Oximetry 07/27/23 07/27/23 07/27/23 09:30 09:37 12:09 Temperature Pulse Rate 98 99 100 Pulse Rate [ Access Developer ] Respiratory 24 Rate Blood Pressure 112/85 Blood Pressure [Left Arm] O2 Sat by Pulse Oximetry 07/27/23 07/27/23 07/27/23 12:21 14:55 15:12 Temperature Pulse Rate 96 94 98 Pulse Rate [ Access Developer ] Respiratory Rate Blood Pressure Blood Pressure [Left Arm] O2 Sat by Pulse Oximetry 07/27/23 17:18 Temperature 98.1 F Pulse Rate Pulse Rate [ 111 H Access Developer ] Respiratory 20 Rate Blood Pressure Blood Pressure 108/90 [Left Arm] O2 Sat by Pulse 94 L Oximetry Medical Decision Making - Medical Decision Making Was pt. sent in by a medical professional or institution (, PA, ANIMAL ANATOMY TEACHER, urgent care, hospital, or snf...) When possible be specific @ -No Did you speak to anyone other than the patient for history (EMS, parent, family, police, friend...)? What history was obtained from this source @ -Spoke with EMS and for history Did you review nursing and triage notes (agree or disagree)? Why? @ -I reviewed and agree with nursing and triage notes Were old charts reviewed (outside hosp., previous admission, EMS record, old EKG, old radiological studies, urgent care reports/EKG's, snf records)? Report findings @ I reviewed patient's admission and discharge summary for same complaint Differential Diagnosis (chest pain, altered mental status, abdominal pain women, abdominal pain men, vaginal bleeding, weakness, fever, dyspnea, syncope, he adache, dizziness, GI bleed, back pain, seizure, CVA, palpatations, mental health, musculoskeletal)? @ -Differential Dyspnea: Coronary syndrome, arrhythmia, tamponade, asthma, COPD, pulmonary embolism, pneumonia, pneumothorax, pulmonary effusion, anaphylaxis, diabetic ketoacidosis, flailed chest, pulmonary contusion, diaphragmatic rupture, anemia, neuromuscular, this is not meant to be an all-inclusive list. EKG interpreted by me (3pts min.). @ -Yes and demonstrates atrial flutter with a rate of 136. QRS 90. QTC of 381. No ST segment elevations. Mild ST depression V5 through V6 X-rays interpreted by me (1pt min.). @ -Yes and demonstrates poor perivascular congestion CT interpreted by me (1pt min.). @ -None done U/S interpreted by me (1pt. min.). @ -None done What testing was considered but not performed or refused? (CT, X-rays, U/S, labs)? Why? @ -None What meds were considered but not given or refused? Why? @ -None Did you discuss the management of the patient with other professionals (professionals i.e. , PA, ANIMAL ANATOMY TEACHER, lab, RT, psych nurse, social worker aide, sod farmer, teacher, community services officer, machine adjuster leader case trim)? Give summary @ -spoke with Dr. Olson who accepted admission Was smoking cessation discussed for >3mins.? @ -No Was critical care preformed (if so, how long)? @ -No Were there social determinants of health that impacted care today? How? (Homelessness, low income, unemployed, alcoholism, drug addiction, transportation, low edu. Level, literacy, decrease access to med. care, [place] [facility], rehab)? @ -No Was there de-escalation of care discussed even if they declined (Discuss DNR or withdrawal of care, Hospice)? DNR status @ -No What co-morbidities impacted this encounter? (DM, HTN, Smoking, COPD, CAD, Cancer, CVA, ARF, Chemo, Hep., AIDS, mental health diagnosis, sleep apnea, morbid obesity)? @ -COPD, CHF Was patient admitted / discharged? Hospital course, mention meds given and rou te, prescriptions, significant lab abnormalities, going to OR and other pertinent info. @ -Admitted. Upon arrival patient was placed in room 3. She does have conversational dyspnea. Laboratory studies were conducted. Chest x-ray demonstrates home pulmonary vascular congestion. Patient is subtherapeutic on her INR. I did discuss results with Dr. Olson. Patient will be admitted for diuresis. I did dose her Coumadin. Patient agreeable to admission and is awaiting a bed on the floor Undiagnosed new problem with uncertain prognosis? @ -No Drug Therapy requiring intensive monitoring for toxicity (Heparin, Nitro, Insulin, Cardizem)? @ -No Were any procedures done? @ -No Diagnosis/symptom? @ -Acute respiratory insufficiency on chronic respiratory failure, COPD exacerbation, CHF exacerbation, subtherapeutic INR Acute, or Chronic, or Acute on Chronic? @ -Acute on chronic Uncomplicated (without systemic symptoms) or Complicated (systemic symptoms)? @ -complicated Side effects of treatment? @ -No Exacerbation, Progression, or Severe Exacerbation? @ - yes Poses a threat to life or bodily function? How? (Chest pain, [place], [place], pneumonia, PE, COPD, DKA, ARF, appy, cholecystitis, CVA, Diverticulitis, Homicidal, Suicidal, threat to staff... and all critical care pts) @ -No - Lab Data Result diagrams: 07/27/23 08:41 07/27/23 08:41 Lab Results 07/27/23 07/27/23 07/27/23 Range/Units 08:41 08:41 08:41 WBC 7.2 (3.8-10.6) k/uL RBC 3.91 (3.80-5.40) m/uL Hgb 11.8 (11.4-16.0) gm/dL Hct 36.8 (34.0-46.0) % MCV 94.2 (80.0-100.0) fL MCH 30.1 (25.0-35.0) pg MCHC 31.9 (31.0-37.0) g/dL RDW 16.4 H (11.5-15.5) % Plt Count 236 (150-450) k/uL MPV 8.4 Neutrophils % 71 % Lymphocytes % 19 % Monocytes % 5 % Eosinophils % 2 % Basophils % 0 % Neutrophils # 5.1 (1.3-7.7) k/uL Lymphocytes # 1.4 (1.0-4.8) k/uL Monocytes # 0.3 (0-1.0) k/uL Eosinophils # 0.1 (0-0.7) k/uL Basophils # 0.0 (0-0.2) k/uL Hypochromasia Moderate Anisocytosis Slight PT 12.8 H (10.0-12.5) sec INR 1.2 H (<1.2) APTT 25.1 (22.0-30.0) sec Sodium 140 (137-145) mmol/L Potassium 3.9 (3.5-5.1) mmol/L Chloride 104 (98-107) mmol/L Carbon Dioxide 25 (22-30) mmol/L Anion Gap 11 mmol/L BUN 18 H (7-17) mg/dL Creatinine 0.58 (0.52-1.04) mg/dL Est GFR (CKD-EPI)AfAm >90 (>60 ml/min/1.73 sqM) Est GFR (CKD-EPI)NonAf 88 (>60 ml/min/1.73 sqM) Glucose 116 H (74-99) mg/dL Plasma Lactic Acid Wilfred (0.7-2.0) mmol/L Calcium 9.3 (8.4-10.2) mg/dL Total Bilirubin 1.7 H (0.2-1.3) mg/dL AST 24 (14-36) U/L ALT 17 (4-34) U/L Alkaline Phosphatase 144 H (38-126) U/L Troponin I (0.000-0.034) ng/mL NT-Pro-B Natriuret Pep 5250 pg/mL Total Protein 7.3 (6.3-8.2) g/dL Albumin 3.9 (3.5-5.0) g/dL 07/27/23 07/27/23 Range/Units 08:41 08:41 WBC (3.8-10.6) k/uL RBC (3.80-5.40) m/uL Hgb (11.4-16.0) gm/dL Hct (34.0-46.0) % MCV (80.0-100.0) fL MCH (25.0-35.0) pg MCHC (31.0-37.0) g/dL RDW (11.5-15.5) % Plt Count (150-450) k/uL MPV Neutrophils % % Lymphocytes % % Monocytes % % Eosinophils % % Basophils % % Neutrophils # (1.3-7.7) k/uL Lymphocytes # (1.0-4.8) k/uL Monocytes # (0-1.0) k/uL Eosinophils # (0-0.7) k/uL Basophils # (0-0.2) k/uL Hypochromasia Anisocytosis PT (10.0-12.5) sec INR (<1.2) APTT (22.0-30.0) sec Sodium (137-145) mmol/L Potassium (3.5-5.1) mmol/L Chloride (98-107) mmol/L Carbon Dioxide (22-30) mmol/L Anion Gap mmol/L BUN (7-17) mg/dL Creatinine (0.52-1.04) mg/dL Est GFR (CKD-EPI)AfAm (>60 ml/min/1.73 sqM) Est GFR (CKD-EPI)NonAf (>60 ml/min/1.73 sqM) Glucose (74-99) mg/dL Plasma Lactic Acid Wilfred 1.7 (0.7-2.0) mmol/L Calcium (8.4-10.2) mg/dL Total Bilirubin (0.2-1.3) mg/dL AST (14-36) U/L ALT (4-34) U/L Alkaline Phosphatase (38-126) U/L Troponin I <0.012 (0.000-0.034) ng/mL NT-Pro-B Natriuret Pep pg/mL Total Protein (6.3-8.2) g/dL Albumin (3.5-5.0) g/dL Disposition Clinical Impression: CHF exacerbation, Subtherapeutic international normalized ratio (INR), COPD exacerbation, Atrial flutter with rapid ventricular response Disposition: ADMITTED IP TO THIS HOSP Condition: Serious Is patient prescribed a controlled substance at d/c from ED?: No Time of Disposition: 10:38 Decision to Admit Reason: Admit from EC Decision Date: 07/27/23 Decision Time: 10:38
[2023-07-27 08:49] LABS: Anisocytosis Slight; Basophils % (A) 0 %; Eosinophils # (A) 0.1 k/uL (0-0.7); Eosinophils % (A) 2 %; HCT 36.8 % (34.0-46.0); HGB 11.8 gm/dL (11.4-16.0); Hypochromasia Moderate; Lymphocytes # (A) 1.4 k/uL (1.0-4.8); Lymphocytes % (A) 19 %; MCH 30.1 pg (25.0-35.0); MCHC 31.9 g/dL (31.0-37.0); MCV 94.2 fL (80.0-100.0); Mean Platelet Volume 8.4; Monocytes # (A) 0.3 k/uL (0-1.0); Monocytes % (A) 5 %; Neutrophils # (A) 5.1 k/uL (1.3-7.7); Neutrophils % (A) 71 %; Platelet Count 236 k/uL (150-450); RBC 3.91 m/uL (3.80-5.40); RDW 16.4 % (11.5-15.5); WBC 7.2 k/uL (3.8-10.6)
--- NOTE | 2023-07-27 08:52 | XR ---
EXAMINATION TYPE: XR chest 2V DATE OF EXAM: 07/27/2023 8:45 AM CLINICAL INDICATION:Female, 78 years old with history of difficulty breathing; H COMPARISON: Chest radiographs from 06/20/2023 TECHNIQUE: XR chest 2V Frontal and lateral views of the chest. FINDINGS: Lungs/Pleura: There is no evidence of pleural effusion, focal consolidation, or pneumothorax. Pulmonary vascularity: Unremarkable. Heart/mediastinum: Cardiomediastinal silhouette is enlarged and stable. Aortic valve repair changes. Atherosclerotic calcifications are seen in the aorta. Left atrial appendage occlusion device is prese nt. Musculoskeletal: No acute osseous pathology. Shoulder arthroplasty with hardware intact. IMPRESSION: Low lung volumes with a generalized hazy appearance which could represent atelectasis versus pulmonar y edema correlate with serum BNP.
[2023-07-27 09:03] LABS: ALT 17 U/L (4-34); AST 24 U/L (14-36); African American GFR (CKD) >90 (>60 ml/min/1.73 sqM); Albumin 3.9 g/dL (3.5-5.0); Alkaline Phosphatase 144 U/L (38-126); Anion Gap 11 mmol/L; Blood Urea Nitrogen 18 mg/dL (7-17); Calcium 9.3 mg/dL (8.4-10.2); Carbon Dioxide 25 mmol/L (22-30); Chloride 104 mmol/L (98-107); Glucose 116 mg/dL (74-99); Non-African American GFR(CKD) 88 (>60 ml/min/1.73 sqM); Potassium 3.9 mmol/L (3.5-5.1); Sodium 140 mmol/L (137-145); Total Bilirubin 1.7 mg/dL (0.2-1.3); Total Protein 7.3 g/dL (6.3-8.2)
[2023-07-27 09:05] LABS: INR 1.2 (<1.2); Partial Thromboplastin Time 25.1 sec (22.0-30.0); Prothrombin Time 12.8 sec (10.0-12.5)
[2023-07-27 09:10] LABS: NT-Pro-B-Type Natriuretic Pept 5250 pg/mL
[2023-07-27] MEDS ORDERED: IPRATROPIUM-ALBUTEROL 3 ML NEB INHALATION STA (09:10)
[2023-07-27] MEDS ORDERED: METOPROLOL TARTRATE 5 MG/5 ML VIAL IVP STA (09:11)
[2023-07-27] MEDS ORDERED: METOPROLOL SUCCINATE (ER) 25 MG TAB.ER.24H PO STA (10:36)
[2023-07-27] MEDS ORDERED: NALOXONE 0.4 MG/ML 1 ML VIAL IV PRN (10:42)
[2023-07-27] MEDS ORDERED: FUROSEMIDE 10 MG/ML 10 ML VIAL IV STA (10:45)
[2023-07-27] MEDS ORDERED: methylPREDNISolone SOD SUCCI 125 MG/2 ML VIAL IV STA (10:45)
--- NOTE | 2023-07-27 10:56 | P.HPIM ---
History of Present Illness H&P Date: 07/27/23 Chief Complaint: SOB This is an 78-year-old female patient who presented to the ER with concerns of shortness of breath patient reports this has been increasing over the past few days. Patient was recently treated or CHF exacerbation about a month ago was discharged home. Patient denies any recent illness or fevers. Patient reports bilateral lower extremity edema but does report this is chronic for her. Chest x-ray completed showing low lung volumes a generalized hazy appearance which could represent atelectasis versus pulmonary edema correlate with serum BNP. BNP level 5250. Patient has past medical history of atrial fibrillation, heart failure, COPD, GERD, renal disease, rheumatoid arthritis, thyroid disorder, previous aortic valve replacement, ex-smoker. At this time patient will be admitted cardiology services will be consulted. Patient started on IV Lasix. Patient also given IV Lopressor due to atrial flutter with RVR. At this time patient denies chest pain. Patient denies nausea vomiting or diarrhea. Patient denies any urinary burning or frequency Review of Systems Please refer to HPI otherwise unremarkable Past Medical History Past Medical History: Atrial Fibrillation, Heart Failure, COPD, GERD/Reflux, Osteoarthritis (OA), Renal Disease, Rheumatoid Arthritis (RA), Supraventricular Tachycardia (SVT), Thyroid Disorder Additional Past Medical History / Comment(s): Valvular heart disease with previous aortic valve replacement and a mitral valve repair, congestion heart failure, Paroxysmal Afib, history of SVT, history of nonsustained VT, SOB with exertion, home O2 at 2L/NC usually prn but lately ATC, arthritis, RA several joints, current L elbow pain/swelling-had "injection", nephrolithiasis, hypothyroid, diverticular dx, UTI, iron deficiency anemia. 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 History of Any Multi-Drug Resistant Organisms: None Reported Past Surgical History: Coronary Bypass/CABG, Heart Catheterization, Hysterectomy, Joint Replacement, Orthopedic Surgery Additional Past Surgical History / Comment(s): Geoff total knees arthroplasty,lt hip arthroplasty, goiter removed 1962, partial thyroidectomy, cataracts removed with lens implants, REVERSE TOTAL RIGHT SHOULDER; Rotator cuff R shoulder, cervical fusion/injections, colonoscopy 2016(next after 5yr), MATTHEW, valve surgery at [facility] 10/13/17 Prosthetic Aortic valve and mitral valve repair. Total abdominal hysterectomy in the 1980s. Past Anesthesia/Blood Transfusion Reactions: Postoperative Nausea & Vomiting (PONV) Past Psychological History: No Psychological Hx Reported Smoking Status: Former smoker Past Alcohol Use History: Occasional Past Drug Use History: None Reported - Past Family History Father Family Medical History: Cancer, Myocardial Infarction ([place]) Additional Family Medical History / Comment(s): in his 80's of a mi. Colon cancer. Mother Family Medical History: No Reported History Additional Family Medical History / Comment(s): age 88 . hx smoking. Daughter(s) Family Medical History: Cancer Additional Family Medical History / Comment(s): from vulvar cancer. Medications and Allergies Home Medications Medication Instructions Recorded Confirmed Type Albuterol Sulfate [Proair Hfa] 2 puff INHALATION RT-Q6H PRN 07/28/19 06/28/23 History Ascorbic Acid [Vitamin C] 500 mg PO DAILY 05/08/21 06/28/23 History Cholecalciferol (Vitamin D3) 125 mcg PO DAILY 06/06/22 06/28/23 History [Vitamin D3 (125 MCG = 5,000 IU)] Ipratropium-Albuterol Nebulize 3 ml INHALATION RT-Q6H PRN 06/06/22 06/28/23 History [Duoneb 0.5 mg-3 mg/3 ml Soln] Levothyroxine Sodium [Synthroid] 137 mcg PO DAILY 30 Days #30 tab 06/08/22 06/28/23 Rx Metoprolol Tartrate [Lopressor] 25 mg PO DAILY 09/06/22 06/28/23 History Fluticasone Propion/Salmeterol 1 puff INHALATION RT-BID 06/07/23 06/28/23 Histo ry [Advair 100-50 Diskus] HYDROcodone/APAP 10-325MG [[place] 1 tab PO Q8H PRN 06/28/23 06/28/23 History 10-325] Furosemide [Lasix] 40 mg PO DAILY 90 Days #90 tab 07/02/23 Rx Potassium Chloride ER [K-Dur 20] 20 meq PO BID 90 Days #180 tab 07/02/23 Rx Sildenafil [Revatio] 20 mg PO TID 90 Days #30 tab 07/02/23 Rx Warfarin [Coumadin] 2.5 mg PO DAILY 30 Days #30 tab 07/02/23 Rx Allergies Allergy/AdvReac Type Severity Reaction Status Date / Time lisinopril Allergy Unknown Verified 06/28/23 11:44 Physical Exam Vitals: Vital Signs Temp Pulse Resp BP Pulse Ox 07/27/23 09:37 99 07/27/23 09:30 98 24 112/85 07/27/23 09:00 137 H 24 115/83 98 07/27/23 08:30 135 H 26 H 124/96 99 07/27/23 08:00 137 H 26 H 129/89 88 L 07/27/23 07:49 26 H 07/27/23 07:45 98.1 F 138 H 26 H 129/89 98 07/27/23 07:42 100 Intake and Output 07/26/23 07/27/23 07/27/23 22:59 06:59 14:59 Other: Weight 47.627 kg Head normocephalic Neck supple Lungs clear to auscultation bilaterally no wheezing or crackles Heart regular rate and rhythm S1-S2, no rub or gallop Abdomen is soft nontender nondistended positive bowel sounds no hepatosplenomegaly Extremities no edema Neuro alert and orientated to 3 Results CBC & Chem 7: 07/27/23 08:41 07/27/23 08:41 Labs: Abnormal Lab Results - Last 24 Hours (Table) 07/27/23 07/27/23 07/27/23 Range/Units 08:41 08:41 08:41 RDW 16.4 H (11.5-15.5) % PT 12.8 H (10.0-12.5) sec INR 1.2 H (<1.2) BUN 18 H (7-17) mg/dL Glucose 116 H (74-99) mg/dL Total Bilirubin 1.7 H (0.2-1.3) mg/dL Alkaline Phosphatase 144 H (38-126) U/L Assessment and Plan Assessment: 1. Shortness breath secondary to acute CHF exacerbation 2. Chronic systolic congestive heart failure 3. History of paroxysmal atrial fibrillation. Maintained on Coumadin 4. History of aortic valve replacement 5. History of mitral valve repair 6. History of pulmonary hypertension Pharmacy to dose Coumadin for DVT prophylaxis. GI prophylaxis Protonix Cardiology services consulted Patient started on IV Lasix Repeat labs ordered Time with Patient: Greater than 30 (Greater than 60% of the total time spent in counseling and coordination of care)
[2023-07-27] MEDS: IPRATROPIUM-ALBUTEROL 3 ML NEB INHALATION SCH ×4 (12:09→19:56)
[2023-07-27] MEDS ORDERED: WARFARIN 3 MG TAB PO ONE (18:00)
[2023-07-27] MEDS ORDERED: IPRATROPIUM-ALBUTEROL 3 ML NEB INHALATION PRN (19:48)
[2023-07-27] MEDS: FUROSEMIDE 10 MG/ML 4 ML VIAL IV SCH (21:09)
[2023-07-28] MEDS: PANTOPRAZOLE 40 MG TABLET PO SCH (06:41)
[2023-07-28 06:57] LABS: Anisocytosis Slight; Basophils % (A) 0 %; Eosinophils % (A) 0 %; HCT 31.9 % (34.0-46.0); Hypochromasia Slight; Lymphocytes % (A) 13 %; MCH 29.1 pg (25.0-35.0); MCHC 31.4 g/dL (31.0-37.0); MCV 92.7 fL (80.0-100.0); Mean Platelet Volume 8.4; Monocytes # (A) 0.4 k/uL (0-1.0); Monocytes % (A) 6 %; Neutrophils # (A) 6.1 k/uL (1.3-7.7); Neutrophils % (A) 78 %; Platelet Count 214 k/uL (150-450); RBC 3.44 m/uL (3.80-5.40); RDW 16.3 % (11.5-15.5); WBC 7.9 k/uL (3.8-10.6)
[2023-07-28 07:05] LABS: INR 1.3 (<1.2)
[2023-07-28 07:28] LABS: African American GFR (CKD) >90 (>60 ml/min/1.73 sqM); Anion Gap 12 mmol/L; Blood Urea Nitrogen 25 mg/dL (7-17); Calcium 8.8 mg/dL (8.4-10.2); Carbon Dioxide 26 mmol/L (22-30); Chloride 100 mmol/L (98-107); Glucose 123 mg/dL (74-99); Non-African American GFR(CKD) 83 (>60 ml/min/1.73 sqM); Potassium 3.6 mmol/L (3.5-5.1); Sodium 138 mmol/L (137-145)
[2023-07-28] MEDS: FUROSEMIDE 10 MG/ML 4 ML VIAL IV SCH ×2 (08:15→20:18)
[2023-07-28] MEDS: IPRATROPIUM-ALBUTEROL 3 ML NEB INHALATION SCH ×4 (08:33→20:21)
[2023-07-28] MEDS ORDERED: HEPARIN SODIUM 1,000 UN/ML (10ML VL) IV PRN (10:00)
--- NOTE | 2023-07-28 10:58 | CONS ---
CONSULTATION CHIEF COMPLAINT: Shortness of breath. HISTORY OF PRESENT ILLNESS: Mirella is an 78-year-old lady with history of permanent atrial fibrillation, COPD, coronary artery disease, status post bypass surgery, history of prior aortic valve replacement with mitral valve repair, who is admitted to hospital with worsening bilateral leg edema and shortness of breath over the last several days. The BNP is elevated and diagnosis of acute exacerbation of chronic systolic heart failure had been made. The patient is being treated with IV Lasix with improvement in her symptoms. The patient also received IV Lopressor because of atrial flutter with poorly controlled ventricular rate. Chest x-ray showed evidence of congestive heart failure. INR is 1.3. The patient is on Coumadin. Please maintain the INR around 2.5 to 3. PAST MEDICAL HISTORY: Significant for atrial fibrillation, flutter, aortic valve replacement, mitral valve repair, nonischemic cardiomyopathy. MEDICATIONS: Medications at home included, 1. Coumadin. 2. Sildenafil. 3. K-Dur 20 b.i.d. 4. Lopressor 25 mg daily. 5. Synthroid. 6. DuoNeb. 7. Lasix 40 daily. 8. Advair. 9. Vitamin C. 10.Albuterol. ALLERGIES: The patient is allergic to lisinopril. FAMILY HISTORY: Negative for premature coronary artery disease. SOCIAL HISTORY: Negative for current smoking, EtOH abuse or drug abuse. REVIEW OF SYSTEMS: A 14 out of 14 review of systems has been performed and pertinents are as documented. PHYSICAL EXAMINATION: GENERAL: The patient appears comfortable at rest. VITAL SIGNS: Heart rate is 100 beats per minute. Blood pressure is 100/50, respiratory rate is 18, O2 saturation is 95% on 2 L. NECK: There is no jugular venous distention. Carotid upstroke is normal. There is no bruit. CHEST: Reveals diminished air entry at the bases with occasional crackles. Rhythm is irregular. There is a systolic murmur at the apex. ABDOMEN: Soft. EXTREMITIES: Exam of extremities did not reveal any edema. Peripheral pulses are palpable. DIAGNOSTIC DATA: An EKG showed atrial flutter with rapid ventricular rate. ASSESSMENT: 1. Acute exacerbation of chronic systolic heart failure. 2. Atrial fibrillation with poorly controlled ventricular rate. 3. Subtherapeutic anticoagulation. PLAN: 1. Start the patient on metoprolol 25 b.i.d. for better rate control. 2. Start the patient on IV heparin as INR is subtherapeutic. MMODL / IJN: [id number] /
[2023-07-28] MEDS: HEPARIN SOD,PORK IN 0.45% NACL 25,000 UNIT in 0.45% NACL 1 250ML.BAG IV SCH (11:02)
[2023-07-28 11:18] LABS: Anisocytosis Slight; Basophils % (A) 0 %; Eosinophils % (A) 0 %; HCT 33.4 % (34.0-46.0); HGB 10.5 gm/dL (11.4-16.0); Hypochromasia Slight; Lymphocytes # (A) 1.3 k/uL (1.0-4.8); Lymphocytes % (A) 11 %; MCH 29.3 pg (25.0-35.0); MCHC 31.5 g/dL (31.0-37.0); MCV 93.1 fL (80.0-100.0); Mean Platelet Volume 8.4; Monocytes # (A) 0.7 k/uL (0-1.0); Monocytes % (A) 7 %; Neutrophils # (A) 8.5 k/uL (1.3-7.7); Neutrophils % (A) 78 %; Platelet Count 233 k/uL (150-450); RBC 3.58 m/uL (3.80-5.40); RDW 16.3 % (11.5-15.5)
[2023-07-28 11:28] LABS: INR 1.3 (<1.2); Partial Thromboplastin Time 26.1 sec (22.0-30.0); Prothrombin Time 13.9 sec (10.0-12.5)
[2023-07-28] MEDS ORDERED: WARFARIN 3 MG TAB PO ONE (18:00)
--- NOTE | 2023-07-28 18:11 | P.PN ---
Subjective Progress Note Date: 07/28/23 This is an 78-year-old female patient who presented to the ER with concerns of shortness of breath patient reports this has been increasing over the past few days. Patient was recently treated or CHF exacerbation about a month ago was discharged home. Patient denies any recent illness or fevers. Patient reports bilateral lower extremity edema but does report this is chronic for her. Chest x-ray completed showing low lung volumes a generalized hazy appearance which could represent atelectasis versus pulmonary edema correlate with serum BNP. BNP level 5250. Patient has past medical history of atrial fibrillation, heart failure, COPD, GERD, renal disease, rheumatoid arthritis, thyroid disorder, previous aortic valve replacement, ex-smoker. At this time patient will be admitted cardiology services will be consulted. Patient started on IV Lasix. Patient also given IV Lopressor due to atrial flutter with RVR. At this time patient denies chest pain. Patient denies nausea vomiting or diarrhea. Patient denies any urinary burning or frequency On 07/28/2023 patient was seen and examined on the medical floor she is alert and oriented 3 in no apparent distress she is complaining of cough and shortness of breath otherwise she denies any complaints there is no fever or chills no headache or dizziness no chest pain no palpitation no nausea or vomiting no abdominal pain no diarrhea and no urinary symptoms. At this time will continue with same management, will check chest x-ray PA and lateral in a.m., will check COVID-19 end influenza A and B PCR testing, will follow in a.m. Objective - Vital Signs Vital signs: Vital Signs Temp 97.8 F 07/28/23 11:55 Pulse 100 07/28/23 12:18 Resp 18 07/28/23 11:55 BP 92/46 07/28/23 11:55 Pulse Ox 94 L 07/28/23 11:55 FiO2 Intake & Output 07/27/23 07/28/23 07/28/23 18:59 06:59 18:59 Output Total 1200 Balance -1200 Weight 47.627 kg 49.8 kg Output: Urine 1200 Other: Voiding Method External Catheter External Catheter # Voids 1 - Exam Head normocephalic Neck supple Lungs clear to auscultation bilaterally no wheezing or crackles Heart regular rate and rhythm S1-S2, no rub or gallop Abdomen is soft nontender nondistended positive bowel sounds no hepatosplenomegaly Extremities no edema Neuro alert and orientated to 3 - Labs CBC & Chem 7: 07/28/23 10:47 07/28/23 06:13 Labs: Abnormal Lab Results - Last 24 Hours (Table) 07/28/23 07/28/23 07/28/23 Range/Units 06:13 06:13 06:13 WBC (3.8-10.6) k/uL RBC 3.44 L (3.80-5.40) m/uL Hgb 10.0 L D (11.4-16.0) gm/dL Hct 31.9 L (34.0-46.0) % RDW 16.3 H (11.5-15.5) % Neutrophils # (1.3-7.7) k/uL PT 14.0 H (10.0-12.5) sec INR 1.3 H (<1.2) BUN 25 H (7-17) mg/dL Glucose 123 H (74-99) mg/dL 07/28/23 07/28/23 Range/Units 10:47 10:47 WBC 11.0 H (3.8-10.6) k/uL RBC 3.58 L (3.80-5.40) m/uL Hgb 10.5 L (11.4-16.0) gm/dL Hct 33.4 L (34.0-46.0) % RDW 16.3 H (11.5-15.5) % Neutrophils # 8.5 H (1.3-7.7) k/uL PT 13.9 H (10.0-12.5) sec INR 1.3 H (<1.2) BUN (7-17) mg/dL Glucose (74-99) mg/dL Assessment and Plan Plan: 1. Shortness breath secondary to acute CHF exacerbation 2. Chronic systolic congestive heart failure 3. History of paroxysmal atrial fibrillation. Maintained on Coumadin 4. History of aortic valve replacement 5. History of mitral valve repair 6. History of pulmonary hypertension Pharmacy to dose Coumadin for DVT prophylaxis. GI prophylaxis Protonix Cardiology services consulted Patient started on IV Lasix Repeat labs ordered
[2023-07-28] MEDS: HYDROcodone/APAP 10-325MG 1 EACH TAB PO PRN (21:12)
[2023-07-28] MEDS: METOPROLOL TARTRATE 12.5 MG TAB PO SCH (22:24)
[2023-07-29] MEDS ORDERED: QUEtiapine 25 MG TAB PO STA (01:58)
[2023-07-29 03:05] LABS: Anisocytosis Slight; Basophils % (A) 0 %; Eosinophils # (A) 0.2 k/uL (0-0.7); Eosinophils % (A) 2 %; HCT 32.1 % (34.0-46.0); HGB 10.3 gm/dL (11.4-16.0); Hypochromasia Moderate; Lymphocytes # (A) 1.6 k/uL (1.0-4.8); Lymphocytes % (A) 17 %; MCH 30.1 pg (25.0-35.0); Mean Platelet Volume 8.3; Monocytes # (A) 0.5 k/uL (0-1.0); Monocytes % (A) 6 %; Neutrophils # (A) 6.9 k/uL (1.3-7.7); Neutrophils % (A) 72 %; Platelet Count 216 k/uL (150-450); RBC 3.42 m/uL (3.80-5.40); RDW 16.4 % (11.5-15.5); WBC 9.6 k/uL (3.8-10.6)
[2023-07-29 03:10] LABS: INR 1.4 (<1.2); Prothrombin Time 14.8 sec (10.0-12.5)
[2023-07-29] MEDS: PANTOPRAZOLE 40 MG TABLET PO SCH (06:16)
--- NOTE | 2023-07-29 09:27 | P.PN ---
Subjective Progress Note Date: 07/29/23 This is an 78-year-old female patient who presented to the ER with concerns of shortness of breath patient reports this has been increasing over the past few days. Patient was recently treated or CHF exacerbation about a month ago was discharged home. Patient denies any recent illness or fevers. Patient reports bilateral lower extremity edema but does report this is chronic for her. Chest x-ray completed showing low lung volumes a generalized hazy appearance which could represent atelectasis versus pulmonary edema correlate with serum BNP. BNP level 5250. Patient has past medical history of atrial fibrillation, heart failure, COPD, GERD, renal disease, rheumatoid arthritis, thyroid disorder, previous aortic valve replacement, ex-smoker. At this time patient will be admitted cardiology services will be consulted. Patient started on IV Lasix. Patient also given IV Lopressor due to atrial flutter with RVR. At this time patient denies chest pain. Patient denies nausea vomiting or diarrhea. Patient denies any urinary burning or frequency On 07/28/2023 patient was seen and examined on the medical floor she is alert and oriented 3 in no apparent distress she is complaining of cough and shortness of breath otherwise she denies any complaints there is no fever or chills no headache or dizziness no chest pain no palpitation no nausea or vomiting no abdominal pain no diarrhea and no urinary symptoms. At this time will continue with same management, will check chest x-ray PA and lateral in a.m., will check COVID-19 end influenza A and B PCR testing, will follow in a.m. On 07/29/2023 patient's alert and oriented 3. COVID-19 influenza negative. Repeat chest x-ray ordered. Patient remains on IV Lasix. Coumadin and bridging with IV heparin. Cardiology services following. Current vital signs temp 98.0, heart rate 66, respiratory rate 16, blood pressure 126/86. At this time patient denies chest pain. Patient does report shortness of breath. Patient denies nausea vomiting or diarrhea. Patient denies any urinary burning or frequency Objective - Vital Signs Vital signs: Vital Signs Temp 98.0 F 07/29/23 07:56 Pulse 66 07/29/23 07:56 Resp 16 07/29/23 07:56 BP 86/54 07/29/23 07:56 Pulse Ox 99 07/29/23 07:56 FiO2 Intake & Output 07/28/23 07/29/23 07/29/23 18:59 06:59 18:59 Intake Total 55.577 Output Total 700 350 Balance -700 -294.423 Weight 49.5 kg Intake: Intake, IV Titration 55.577 Amount Heparin Sod,Pork in 0.45% 55.577 NaCl 25,000 unit In 0.45 % NaCl 1 250ml.bag @ 12 UNITS/KG/HR 5.976 mls/hr IV .Q24H [facility] Rx#: [id number] Output: Urine 700 350 Other: Voiding Method External Catheter External Catheter External Catheter # Voids 1 - Exam Head normocephalic Neck supple Lungs clear to auscultation bilaterally no wheezing or crackles Heart regular rate and rhythm S1-S2, no rub or gallop Abdomen is soft nontender nondistended positive bowel sounds no hepatosplenomegaly Extremities no edema Neuro alert and orientated to 3 - Labs CBC & Chem 7: 07/29/23 02:36 07/28/23 06:13 Labs: Abnormal Lab Results - Last 24 Hours (Table) 07/28/23 07/28/23 07/29/23 Range/Units 10:47 10:47 02:36 WBC 11.0 H (3.8-10.6) k/uL RBC 3.58 L 3.42 L (3.80-5.40) m/uL Hgb 10.5 L 10.3 L (11.4-16.0) gm/dL Hct 33.4 L 32.1 L (34.0-46.0) % RDW 16.3 H 16.4 H (11.5-15.5) % Neutrophils # 8.5 H (1.3-7.7) k/uL PT 13.9 H (10.0-12.5) sec INR 1.3 H (<1.2) APTT (22.0-30.0) sec 07/29/23 07/29/23 Range/Units 02:36 02:36 WBC (3.8-10.6) k/uL RBC (3.80-5.40) m/uL Hgb (11.4-16.0) gm/dL Hct (34.0-46.0) % RDW (11.5-15.5) % Neutrophils # (1.3-7.7) k/uL PT 14.8 H (10.0-12.5) sec INR 1.4 H (<1.2) APTT 44.5 H (22.0-30.0) sec Assessment and Plan Plan: 1. Shortness breath secondary to acute CHF exacerbation 2. Chronic systolic congestive heart failure 3. History of paroxysmal atrial fibrillation. Maintained on Coumadin 4. History of aortic valve replacement 5. History of mitral valve repair 6. History of pulmonary hypertension Pharmacy to dose Coumadin for DVT prophylaxis. GI prophylaxis Protonix Cardiology services consulted Patient started on IV Lasix Repeat labs ordered
[2023-07-29] MEDS: IPRATROPIUM-ALBUTEROL 3 ML NEB INHALATION SCH ×4 (09:29→21:38)
[2023-07-29] MEDS: METOPROLOL TARTRATE 12.5 MG TAB PO SCH (09:51)
[2023-07-29] MEDS: FUROSEMIDE 10 MG/ML 4 ML VIAL IV SCH ×2 (09:51→19:37)
[2023-07-29] MEDS: HEPARIN SOD,PORK IN 0.45% NACL 25,000 UNIT in 0.45% NACL 1 250ML.BAG IV SCH ×2 (11:04→18:24)
--- NOTE | 2023-07-29 11:31 | XR ---
EXAMINATION TYPE: XR chest 1V portable DATE OF EXAM: 07/29/2023 COMPARISON: 07/27/2023 HISTORY: Shortness of breath TECHNIQUE: Single frontal view of the chest is obtained. FINDINGS: Postsurgical change right shoulder. There is prosthetic heart valve with median sternotomy changes. Atherosclerotic change aorta. Diffuse interstitial pattern with bilateral consolidation and small effusion. No pneumothorax. Diffuse osteopenia and arthropathy at the shoulders. Limited inspir ation. Underlying COPD. IMPRESSION: Diffuse pleural parenchymal changes stable most typical of CHF atypical interstitial pne umonitis in the differential diagnosis.
[2023-07-29] MEDS ORDERED: WARFARIN 2 MG TAB PO ONE (18:00)
[2023-07-29] MEDS ORDERED: METOPROLOL TARTRATE 25 MG TAB PO SCH (18:00)
--- NOTE | 2023-07-29 18:56 | P.PN ---
Subjective Progress Note Date: 07/29/23 SUBJECTIVE: Patient is seen and examined at bedside the same. She denies any active chest pain chest pressure. Her shortness of breath is improved since the time of admission. She continues to be included control atrial fibrillation. Synopsis: 78-year-old with past medical history of atrial fibrillation, COPD, CAD, CABG, prior aortic valve replacement and mitral valve repair, presented to the hospital with bilateral lower extremity edema and shortness of breath. Admission BNP was elevated. Her INR was 1.3. PHYSICAL EXAMINATION Vital signs reviewed. Head: Normocephalic. Eyes: Sclerae nonicteric. Lungs: Clear to auscultation. Heart: Irregularly irregular, systolic murmur Abdomen: Soft nontender, positive bowel sounds no organomegaly. Extremities: 2+ pitting edema ASSESSMENT Acute hypoxic respiratory failure Acute systolic heart failure exacerbation Chronic atrial fibrillation, rate controlled Subtherapeutic INR Prior aortic valve replacement Prior mitral valve repair CAD status post CABG PLAN Continue metoprolol 25 mg twice a day Continue IV heparin and warfarin Continue Lasix 40 minutes twice a day Objective - Vital Signs Vital signs: Vital Signs Temp 98.2 F 07/29/23 16:00 Pulse 130 H 07/29/23 18:43 Resp 18 07/29/23 17:40 BP 99/66 07/29/23 18:43 Pulse Ox 97 07/29/23 16:00 FiO2 Intake & Output 07/28/23 07/29/23 07/29/23 18:59 06:59 18:59 Intake Total 55.577 404.838 Output Total 700 350 450 Balance -700 -294.423 -45.162 Weight 49.5 kg Intake: Intake, IV Titration 55.577 164.838 Amount Heparin Sod,Pork in 0.45% 55.577 164.838 NaCl 25,000 unit In 0.45 % NaCl 1 250ml.bag @ 12 UNITS/KG/HR 5.976 mls/hr IV .Q24H [facility] Rx#: [id number] Oral 240 Output: Urine 700 350 450 Other: Voiding Method External Catheter External Catheter External Catheter # Voids 1 - Labs CBC & Chem 7: 07/29/23 02:36 07/28/23 06:13 Labs: Abnormal Lab Results - Last 24 Hours (Table) 07/29/23 07/29/23 07/29/23 Range/Units 02:36 02:36 02:36 RBC 3.42 L (3.80-5.40) m/uL Hgb 10.3 L (11.4-16.0) gm/dL Hct 32.1 L (34.0-46.0) % RDW 16.4 H (11.5-15.5) % PT 14.8 H (10.0-12.5) sec INR 1.4 H (<1.2) APTT 44.5 H (22.0-30.0) sec
[2023-07-30] MEDS: PANTOPRAZOLE 40 MG TABLET PO SCH (06:23)
[2023-07-30] MEDS: IPRATROPIUM-ALBUTEROL 3 ML NEB INHALATION SCH ×4 (09:07→20:40)
[2023-07-30 09:45] LABS: ALT 17 U/L (4-34); AST 25 U/L (14-36); African American GFR (CKD) 89 (>60 ml/min/1.73 sqM); Albumin 3.3 g/dL (3.5-5.0); Alkaline Phosphatase 112 U/L (38-126); Anion Gap 8 mmol/L; Blood Urea Nitrogen 28 mg/dL (7-17); Calcium 8.7 mg/dL (8.4-10.2); Carbon Dioxide 32 mmol/L (22-30); Chloride 98 mmol/L (98-107); Glucose 79 mg/dL (74-99); Non-African American GFR(CKD) 77 (>60 ml/min/1.73 sqM); Potassium 3.7 mmol/L (3.5-5.1); Sodium 138 mmol/L (137-145); Total Protein 6.4 g/dL (6.3-8.2)
[2023-07-30 09:48] LABS: INR 1.7 (<1.2); Partial Thromboplastin Time 60.5 sec (22.0-30.0); Prothrombin Time 17.7 sec (10.0-12.5)
[2023-07-30 09:49] LABS: African American GFR (CKD) 87 (>60 ml/min/1.73 sqM); Anion Gap 6 mmol/L; Blood Urea Nitrogen 28 mg/dL (7-17); Calcium 8.6 mg/dL (8.4-10.2); Carbon Dioxide 35 mmol/L (22-30); Chloride 97 mmol/L (98-107); Glucose 81 mg/dL (74-99); Non-African American GFR(CKD) 76 (>60 ml/min/1.73 sqM); Potassium 3.7 mmol/L (3.5-5.1); Sodium 138 mmol/L (137-145)
[2023-07-30 09:59] LABS: Basophils % (A) 1 %; Eosinophils # (A) 0.3 k/uL (0-0.7); Eosinophils % (A) 5 %; HCT 34.9 % (34.0-46.0); HGB 10.4 gm/dL (11.4-16.0); Hypochromasia Marked; Lymphocytes # (A) 1.6 k/uL (1.0-4.8); Lymphocytes % (A) 25 %; MCH 28.3 pg (25.0-35.0); MCHC 29.8 g/dL (31.0-37.0); MCV 95.1 fL (80.0-100.0); Mean Platelet Volume 8.4; Monocytes # (A) 0.4 k/uL (0-1.0); Monocytes % (A) 6 %; Neutrophils # (A) 3.8 k/uL (1.3-7.7); Neutrophils % (A) 60 %; Platelet Count 228 k/uL (150-450); RBC 3.66 m/uL (3.80-5.40); WBC 6.3 k/uL (3.8-10.6)
[2023-07-30] MEDS: METOPROLOL TARTRATE 25 MG TAB PO SCH ×2 (10:04→19:52)
--- NOTE | 2023-07-30 11:47 | P.PN ---
Subjective Progress Note Date: 07/30/23 This is an 78-year-old female patient who presented to the ER with concerns of shortness of breath patient reports this has been increasing over the past few days. Patient was recently treated or CHF exacerbation about a month ago was discharged home. Patient denies any recent illness or fevers. Patient reports bilateral lower extremity edema but does report this is chronic for her. Chest x-ray completed showing low lung volumes a generalized hazy appearance which could represent atelectasis versus pulmonary edema correlate with serum BNP. BNP level 5250. Patient has past medical history of atrial fibrillation, heart failure, COPD, GERD, renal disease, rheumatoid arthritis, thyroid disorder, previous aortic valve replacement, ex-smoker. At this time patient will be admitted cardiology services will be consulted. Patient started on IV Lasix. Patient also given IV Lopressor due to atrial flutter with RVR. At this time patient denies chest pain. Patient denies nausea vomiting or diarrhea. Patient denies any urinary burning or frequency On 07/28/2023 patient was seen and examined on the medical floor she is alert and oriented 3 in no apparent distress she is complaining of cough and shortness of breath otherwise she denies any complaints there is no fever or chills no headache or dizziness no chest pain no palpitation no nausea or vomiting no abdominal pain no diarrhea and no urinary symptoms. At this time will continue with same management, will check chest x-ray PA and lateral in a.m., will check COVID-19 end influenza A and B PCR testing, will follow in a.m. On 07/29/2023 patient's alert and oriented 3. COVID-19 influenza negative. Repeat chest x-ray ordered. Patient remains on IV Lasix. Coumadin and bridging with IV heparin. Cardiology services following. Current vital signs temp 98.0, heart rate 66, respiratory rate 16, blood pressure 126/86. At this time patient denies chest pain. Patient does report shortness of breath. Patient denies nausea vomiting or diarrhea. Patient denies any urinary burning or frequency On 07/30/2023 patient is alert and oriented 3. Patient transitioned from IV Lasix to Bumex. Patient remains on heparin for bridging INR 1.7 pharmacy to dose Coumadin ordered. Patient reports minimum improvement with shortness of breath at this time will consult pulmonary services. Patient denies chest pain. Patient denies nausea vomiting or diarrhea. Patient denies any urinary burning or frequency Objective - Vital Signs Vital signs: Vital Signs Temp 98 F 07/30/23 08:00 Pulse 71 07/30/23 10:00 Resp 20 07/30/23 10:00 BP 93/43 07/30/23 08:00 Pulse Ox 97 07/30/23 09:08 FiO2 Intake & Output 07/29/23 07/30/23 07/30/23 18:59 06:59 18:59 Intake Total 404.838 109.062 Output Total 450 800 Balance -45.162 -800 109.062 Weight 47 kg Intake: Intake, IV Titration 164.838 109.062 Amount Heparin Sod,Pork in 0.45% 164.838 109.062 NaCl 25,000 unit In 0.45 % NaCl 1 250ml.bag @ 12 UNITS/KG/HR 5.976 mls/hr IV .Q24H [facility] Rx#: [id number] Oral 240 Output: Urine 450 800 Other: Voiding Method External Catheter External Catheter External Catheter # Voids 1 - Exam Head normocephalic Neck supple Lungs clear to auscultation bilaterally no wheezing or crackles Heart regular rate and rhythm S1-S2, no rub or gallop Abdomen is soft nontender nondistended positive bowel sounds no hepatosple nomegaly Extremities no edema Neuro alert and orientated to 3 - Labs CBC & Chem 7: 07/30/23 08:30 07/30/23 08:30 Labs: Abnormal Lab Results - Last 24 Hours (Table) 07/30/23 07/30/23 07/30/23 Range/Units 08:30 08:30 08:30 RBC 3.66 L (3.80-5.40) m/uL Hgb 10.4 L (11.4-16.0) gm/dL MCHC 29.8 L (31.0-37.0) g/dL RDW 16.0 H (11.5-15.5) % PT 17.7 H (10.0-12.5) sec INR 1.7 H (<1.2) APTT 60.5 H (22.0-30.0) sec Chloride (98-107) mmol/L Carbon Dioxide 32 H (22-30) mmol/L BUN 28 H (7-17) mg/dL Albumin 3.3 L (3.5-5.0) g/dL 07/30/23 Range/Units 08:30 RBC (3.80-5.40) m/uL Hgb (11.4-16.0) gm/dL MCHC (31.0-37.0) g/dL RDW (11.5-15.5) % PT (10.0-12.5) sec INR (<1.2) APTT (22.0-30.0) sec Chloride 97 L (98-107) mmol/L Carbon Dioxide 35 H (22-30) mmol/L BUN 28 H (7-17) mg/dL Albumin (3.5-5.0) g/dL Assessment and Plan Plan: 1. Shortness breath secondary to acute CHF exacerbation 2. Chronic systolic congestive heart failure 3. History of paroxysmal atrial fibrillation. Maintained on Coumadin 4. History of aortic valve replacement 5. History of mitral valve repair 6. History of pulmonary hypertension Pharmacy to dose Coumadin for DVT prophylaxis. GI prophylaxis Protonix Cardiology services consulted Patient started on IV Lasix Repeat labs ordered
[2023-07-30] MEDS: BUMETANIDE 1 MG TAB PO SCH ×2 (13:16→17:25)
--- NOTE | 2023-07-30 13:27 | P.CRDCN ---
History of Present Illness History of present illness: HISTORY OF PRESENT ILLNESS: Patient is seen and examined at bedside the same. She denies any active chest pain chest pressure. Her shortness of breath is improved since the time of admission. She continues to be included control atrial fibrillation. Synopsis: 78-year-old with past medical history of atrial fibrillation, COPD, prior aortic valve replacement and mitral valve repair, presented to the hospital with bilateral lower extremity edema and shortness of breath. Admission BNP was elevated. Her INR was 1.3. 07/30/2023 Patient examined this morning at the bedside. Patient currently denies chest pain or pressure. She denies shortness of breath. She remains on IV heparin. She is receiving Coumadin. INR remains subtherapeutic at 1.8. Telemetry reveals atrial fibrillation with a heart rate in the 80-90s. Echocardiogram completed in June 2023 revealed ejection fraction 30-35% PHYSICAL EXAM: VITAL SIGNS: Reviewed. GENERAL: Well-developed in no acute distress. NECK: Supple. No JVD or thyromegaly LUNGS: Respirations even and unlabored. Lungs essentially clear to auscultation bilaterally. HEART: Irregular rate and rhythm. S1 and S2 heard. Systolic Murmur noted EXTREMITIES: Normal range of motion. No clubbing or cyanosis. Peripheral pulses intact. No lower extremity edema ASSESSMENT: Acute hypoxic respiratory failure Acute exacerbation of congestive heart failure with reduced EF, 3035% Persistent atrial fibrillation, rate controlled Subtherapeutic INR Prior bioprosthetic aortic valve replacement Prior mitral valve repair History of nonischemic cardiomyopathy Normal coronary arteries, per cardiac catheterization 2018 History of cardioversion, 2018 for atrial flutter PLAN: Continue Coumadin. Continue IV heparin. Monitor INR Discontinue IV diuretics. Begin oral Bumex 1 mg twice a day Add metoprolol 25 mg twice a day for optimal heart rate control Continue additional cardiac medications Further recommendations pending patient's course Nurse practitioner note has been reviewed by physician. Signing provider agrees with the documented findings, assessment, and plan of care. Past Medical History Past Medical History: Atrial Fibrillation, Heart Failure, COPD, GERD/Reflux, Osteoarthritis (OA), Renal Disease, Rheumatoid Arthritis (RA), Supraventricular Tachycardia (SVT), Thyroid Disorder Additional Past Medical History / Comment(s): Valvular heart disease with previous aortic valve replacement and a mitral valve repair, congestion heart failure, Paroxysmal Afib, history of SVT, history of nonsustained VT, SOB with exertion, home O2 at 2L/NC usually prn but lately ATC, arthritis, RA several joints, current L elbow pain/swelling-had "injection", nephrolithiasis, hypothyroid, diverticular dx, UTI, iron deficiency anemia. PAST [employer] HISTORY: She has no history of STDs. History of Any Multi-Drug Resistant Organisms: None Reported Past Surgical History: Coronary Bypass/CABG, Heart Catheterization, Hysterectomy, Joint Replacement, Orthopedic Surgery Additional Past Surgical History / Comment(s): Geoff total knees arthroplasty,lt hip arthroplasty, goiter removed 1962, partial thyroidectomy, cataracts removed with lens implants, REVERSE TOTAL RIGHT SHOULDER; Rotator cuff R shoulder, cervical fusion/injections, colonoscopy 2016(next after 5yr), MATTHEW, valve surgery at [facility] 10/13/17 Prosthetic Aortic valve and mitral valve repair. Total abdominal hysterectomy in the . Past Anesthesia/Blood Transfusion Reactions: Postoperative Nausea & Vomiting (PONV) Past Psychological History: No Psychological Hx Reported Additional Psychological History / Comment(s): Pt resides with her spouse in an apartment with no stairs. She used to drive but not since valve surgery. Her spouse is helpful and able to drive her to appts. She has home oxygen. She uses a walker to ambulate and has a cane. She also has a scale and B/P monitor. She has used VMA in the recent past. Smoking Status: Former smoker Past Alcohol Use History: Occasional Additional Past Alcohol Use History / Comment(s): She used to drink 2 glasses of wine per week but hasn't for months, quit smoking @age of 43, smoked 1ppd for 30 yrs. Past Drug Use History: None Reported - Past Family History Father Family Medical History: Cancer, Myocardial Infarction ([place]) Additional Family Medical History / Comment(s): in his 80's of a mi. Colon cancer. Mother Family Medical History: No Reported History Additional Family Medical History / Comment(s): age 88 . hx smoking. Daughter(s) Family Medical History: Cancer Additional Family Medical History / Comment(s): from vulvar cancer. Medications and Allergies Home Medications Medication Instructions Recorded Confirmed Type Albuterol Sulfate [Proair Hfa] 2 puff INHALATION RT-Q6H PRN 07/28/19 07/27/23 History Ascorbic Acid [Vitamin C] 500 mg PO DAILY 05/08/21 07/27/23 History Cholecalciferol (Vitamin D3) 125 mcg PO DAILY 06/06/22 07/27/23 History [Vitamin D3 (125 MCG = 5,000 IU)] Ipratropium-Albuterol Nebulize 3 ml INHALATION RT-Q6H PRN 06/06/22 07/27/23 History [Duoneb 0.5 mg-3 mg/3 ml Soln] Levothyroxine Sodium [Synthroid] 137 mcg PO DAILY 30 Days #30 tab 06/08/22 Rx Metoprolol Tartrate [Lopressor] 25 mg PO DAILY 09/06/22 07/27/23 History Fluticasone Propion/Salmeterol 1 puff INHALATION RT-BID 06/07/23 07/27/23 History [Advair 100-50 Diskus] HYDROcodone/APAP 10-325MG [[place] 1 tab PO Q8H PRN 06/28/23 07/27/23 History 10-325] Furosemide [Lasix] 40 mg PO DAILY 90 Days #90 tab 07/02/23 07/27/23 Rx Potassium Chloride ER [K-Dur 20] 20 meq PO BID 90 Days #180 tab 07/02/23 07/27/23 Rx Sildenafil [Revatio] 20 mg PO TID 90 Days #30 tab 07/02/23 07/27/23 Rx Warfarin [Coumadin] 2.5 mg PO HS 07/27/23 07/27/23 History Allergies Allergy/AdvReac Type Severity Reaction Status Date / Time lisinopril Allergy Unknown Verified 07/27/23 11:07 Physical Exam Vitals: Vital Signs Temp Pulse Pulse Resp BP Pulse Ox 07/30/23 10:00 71 20 07/30/23 09:21 100 07/30/23 09:08 105 H 97 07/30/23 08:00 98 F 107 H 20 93/43 98 07/30/23 04:00 86 16 92/59 97 07/30/23 00:00 97.8 F 88 17 96/52 98 07/29/23 21:48 76 07/29/23 21:38 75 07/29/23 19:37 98 F 130 H 18 93/66 98 07/29/23 18:43 130 H 99/66 07/29/23 18:14 130 H 80/38 07/29/23 17:40 78 18 07/29/23 17:03 78 18 07/29/23 16:00 98.2 F 126 H 18 92/58 97 Intake and Output 07/29/23 07/30/23 07/30/23 22:59 06:59 14:59 Intake Total 164.838 589.062 Output Total 450 350 Balance -285.162 -350 589.062 Intake: Intake, IV Titration 164.838 109.062 Amount Heparin Sod,Pork in 0.45% 164.838 109.062 NaCl 25,000 unit In 0.45 % NaCl 1 250ml.bag @ 12 UNITS/KG/HR 5.976 mls/hr IV .Q24H [facility] Rx#: [id number] Oral 480 Output: Urine 450 350 Other: Voiding Method External Catheter External Catheter External Catheter # Voids 1 Weight 47 kg Results 07/30/23 08:30 07/30/23 08:30 Cardiac Enzymes 07/30/23 Range/Units 08:30 AST 25 (14-36) U/L Coagulation 07/30/23 Range/Units 08:30 PT 17.7 H (10.0-12.5) sec APTT 60.5 H (22.0-30.0) sec CBC 07/30/23 Range/Units 08:30 WBC 6.3 (3.8-10.6) k/uL RBC 3.66 L (3.80-5.40) m/uL Hgb 10.4 L (11.4-16.0) gm/dL Hct 34.9 (34.0-46.0) % Plt Count 228 (150-450) k/uL Comprehensive Metabolic Panel 07/30/23 07/30/23 Range/Units 08:30 08:30 Sodium 138 138 (137-145) mmol/L Potassium 3.7 3.7 (3.5-5.1) mmol/L Chloride 98 97 L (98-107) mmol/L Carbon Dioxide 32 H 35 H (22-30) mmol/L BUN 28 H 28 H (7-17) mg/dL Creatinine 0.74 0.75 (0.52-1.04) mg/dL Glucose 79 81 (74-99) mg/dL Calcium 8.7 8.6 (8.4-10.2) mg/dL AST 25 (14-36) U/L ALT 17 (4-34) U/L Alkaline Phosphatase 112 (38-126) U/L Total Protein 6.4 (6.3-8.2) g/dL Albumin 3.3 L (3.5-5.0) g/dL Current Medications Generic Name Dose Route Start Last Admin Trade Name Freq PRN Reason Stop Dose Admin Hydrocodone Bitart/Acetaminophen 1 each 07/28/23 20:56 07/28/23 21:12 Hydrocodone/Apap 10-325mg 1 Each Tab PO 1 each Q6HR PRN Administration Pain Albuterol/Ipratropium 3 ml 07/27/23 20:00 07/30/23 12:46 Ipratropium-Albuterol 3 Ml Neb INHALATION Not Given RT-QID CARLOS Albuterol/Ipratropium 3 ml 07/27/23 19:48 Ipratropium-Albuterol 3 Ml Neb INHALATION RT-Q2H PRN Shortness Of Breath Or Wheezing Bumetanide 1 mg 07/30/23 09:00 Bumetanide 1 Mg Tab PO BID@0900,1600 CARLOS Heparin Sodium (Porcine) 0 unit 07/28/23 10:00 07/28/23 20:19 Heparin Sodium 1,000 Un/Ml (10ml Vl) IV 2,490 unit PER PROTOCOL PRN Administration Low PTT Protocol Heparin Sodium/Sodium Chloride 250 mls @ 5.976 mls/hr 07/28/23 10:00 07/30/23 09:00 25,000 unit/ Sodium Chloride IV 15 units/kg/hr .Q24H CARLOS 7.47 mls/hr Titration Protocol 12 UNITS/KG/HR Metoprolol Tartrate 25 mg 07/30/23 09:00 07/30/23 10:04 Metoprolol Tartrate 25 Mg Tab PO 25 mg BID CARLOS Administration Miscellaneous Information 1 each 07/27/23 10:21 Warfarin Per Pharmacy MISCELLANE DIRECTED PRN Per Protocol Protocol Naloxone HCl 0.2 mg 07/27/23 10:42 Naloxone 0.4 Mg/Ml 1 Ml Vial IV Q2M PRN Opioid Reversal Pantoprazole Sodium 40 mg 07/28/23 07:30 07/30/23 06:23 Pantoprazole 40 Mg Tablet PO 40 mg [id number] [facility] Administration Warfarin Sodium 3 mg 07/30/23 18:00 Warfarin 3 Mg Tab PO 07/30/23 18:01 ONCE@1800 ONE Intake and Output 07/29/23 07/30/23 07/30/23 22:59 06:59 14:59 Intake Total 164.838 589.062 Output Total 450 350 Balance -285.162 -350 589.062 Intake: Intake, IV Titration 164.838 109.062 Amount Heparin Sod,Pork in 0.45% 164.838 109.062 NaCl 25,000 unit In 0.45 % NaCl 1 250ml.bag @ 12 UNITS/KG/HR 5.976 mls/hr IV .Q24H [facility] Rx#: [id number] Oral 480 Output: Urine 450 350 Other: Voiding Method External Catheter External Catheter External Catheter # Voids 1 Weight 47 kg 07/30/23 08:30 07/30/23 08:30
--- NOTE | 2023-07-30 13:28 | P.PN ---
Subjective HISTORY OF PRESENT ILLNESS: Patient is seen and examined at bedside the same. She denies any active chest pain chest pressure. Her shortness of breath is improved since the time of admission. She continues to be included control atrial fibrillation. Synopsis: 78-year-old with past medical history of atrial fibrillation, COPD, prior aortic valve replacement and mitral valve repair, presented to the hospital with bilateral lower extremity edema and shortness of breath. Admission BNP was elevated. Her INR was 1.3. 07/30/2023 Patient examined this morning at the bedside. Patient currently denies chest pain or pressure. She denies shortness of breath. She remains on IV heparin. She is receiving Coumadin. INR remains subtherapeutic at 1.8. Telemetry reveals atrial fibrillation with a heart rate in the 80-90s. Echocardiogram completed in June 2023 revealed ejection fraction 30-35% PHYSICAL EXAM: VITAL SIGNS: Reviewed. GENERAL: Well-developed in no acute distress. NECK: Supple. No JVD or thyromegaly LUNGS: Respirations even and unlabored. Lungs essentially clear to auscultation bilaterally. HEART: Irregular rate and rhythm. S1 and S2 heard. Systolic Murmur noted EXTREMITIES: Normal range of motion. No clubbing or cyanosis. Peripheral pulses intact. No lower extremity edema ASSESSMENT: Acute hypoxic respiratory failure Acute exacerbation of congestive heart failure with reduced EF, 3035% Persistent atrial fibrillation, rate controlled Subtherapeutic INR Prior bioprosthetic aortic valve replacement Prior mitral valve repair History of nonischemic cardiomyopathy Normal coronary arteries, per cardiac catheterization 2018 History of cardioversion, 2018 for atrial flutter PLAN: Continue Coumadin. Continue IV heparin. Monitor INR Discontinue IV diuretics. Begin oral Bumex 1 mg twice a day Add metoprolol 25 mg twice a day Continue additional cardiac medications Further recommendations pending patient's course Nurse practitioner note has been reviewed by physician. Signing provider agrees with the documented findings, assessment, and plan of care. Objective - Vital Signs Vital signs: Vital Signs Temp 98 F 07/30/23 08:00 Pulse 71 07/30/23 10:00 Resp 20 07/30/23 10:00 BP 93/43 07/30/23 08:00 Pulse Ox 97 07/30/23 09:08 FiO2 Intake & Output 07/29/23 07/30/23 07/30/23 18:59 06:59 18:59 Intake Total 404.838 589.062 Output Total 450 800 Balance -45.162 -800 589.062 Weight 47 kg Intake: Intake, IV Titration 164.838 109.062 Amount Heparin Sod,Pork in 0.45% 164.838 109.062 NaCl 25,000 unit In 0.45 % NaCl 1 250ml.bag @ 12 UNITS/KG/HR 5.976 mls/hr IV .Q24H [facility] Rx#: [id number] Oral 240 480 Output: Urine 450 800 Other: Voiding Method External Catheter External Catheter External Catheter # Voids 1 - Labs CBC & Chem 7: 07/30/23 08:30 07/30/23 08:30 Labs: Abnormal Lab Results - Last 24 Hours (Table) 07/30/23 07/30/23 07/30/23 Range/Units 08:30 08:30 08:30 RBC 3.66 L (3.80-5.40) m/uL Hgb 10.4 L (11.4-16.0) gm/dL MCHC 29.8 L (31.0-37.0) g/dL RDW 16.0 H (11.5-15.5) % PT 17.7 H (10.0-12.5) sec INR 1.7 H (<1.2) APTT 60.5 H (22.0-30.0) sec Chloride (98-107) mmol/L Carbon Dioxide 32 H (22-30) mmol/L BUN 28 H (7-17) mg/dL Albumin 3.3 L (3.5-5.0) g/dL 07/30/23 Range/Units 08:30 RBC (3.80-5.40) m/uL Hgb (11.4-16.0) gm/dL MCHC (31.0-37.0) g/dL RDW (11.5-15.5) % PT (10.0-12.5) sec INR (<1.2) APTT (22.0-30.0) sec Chloride 97 L (98-107) mmol/L Carbon Dioxide 35 H (22-30) mmol/L BUN 28 H (7-17) mg/dL Albumin (3.5-5.0) g/dL
[2023-07-30] MEDS ORDERED: WARFARIN 3 MG TAB PO ONE (18:00)
[2023-07-31] MEDS: HEPARIN SOD,PORK IN 0.45% NACL 25,000 UNIT in 0.45% NACL 1 250ML.BAG IV SCH (02:30)
[2023-07-31] MEDS: HYDROcodone/APAP 10-325MG 1 EACH TAB PO PRN (03:59)
--- NOTE | 2023-07-31 04:25 | P.CNPUL ---
History of Present Illness Consult date: 07/31/23 Requesting physician: Olya Olson Reason for consult: dyspnea Chief complaint: Shortness of breath, progressively worse over the last 3 weeks History of present illness: I am seeing this patient in new consultation today 07/31/2023 after she presented 4 days ago with what appeared to be an exacerbation of systolic congestive heart failure and A. fib RVR. We were not consulted until yesterday afternoon. Patient is an 78-year-old female past medical history significant for congestive heart failure, prior aortic valve replacement and mitral valve repair, paroxysmal atrial fibrillation anticoagulated on Coumadin, severe oxygen dependent COPD, among other things. Her primary care provider is Dr. Olson. Patient has followed in the pulmonary office with Dr. Doyle for COPD. 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 Patient had a recent hospital admission last month for similar symptoms and exacerbation of systolic congestive heart failure. She presented again 4 days ago with the chief complaint of ongoing progressively worsening shortness of breath over the last 3 weeks. She does take Lasix on outpatient basis. She does state that her legs may have been swollen. She sleeps with 3 pillows. Denies any chest pain. Admits occasional heart palpitations. Denies any lightheadedness or syncope. Echocardiogram done from last admission showed a left ventricular ejection fraction of 30-35%. She also has pulmonary hypertension with RVSP of 50 and severe tricuspid regurgitation. Functional aortic and mitral valves. She denies any fevers or cough. Does endorse chest tightness and wheezing at home. On my evaluation, she is currently sitting up in bed, on 2 L per minute nasal cannula, in no acute distress. Not really sympt omatic for COPD currently. She is receiving Duo-nebs around the clock. Patient reportedly does not take maintenance inhaler for COPD outpatient. Chest x-ray on arrival demonstrated cardiomegaly with pulmonary vascular congestion consistent with CHF. NT proBNP was elevated at 5250. She still remains in atrial fibrillation, ventricular response is more controlled. Her INR was subtherapeutic, and she was started on IV heparin. Most recent CBC from yesterday shows a WBC count of 6.3, hemoglobin 10.4, hematocrit 34.9, platelets 228. APTT therapeutic. BMP from yesterday shows a sodium 138, potassium 3.7, chloride 97, serum bicarbonate 35, BUN 28, creatinine 0.75, glucose 81. Troponin on arrival was less than 0.012. She was negative for influenza, RSV, COVID-19. Repeat chest x-ray from 2 days ago shows diffuse interstitial infiltrates and likely small effusions consistent with CHF, interstitial pneumonitis was within the differential. Currently being diuresed with Bumex twice a day. Patient states that she is voiding often. Vital signs are stable. Review of Systems REVIEW OF SYSTEMS: CONSTITUTIONAL: Denies any recent significant weight loss or weight gain. EYES: Denies change in vision. EARS, NOSE, MOUTH, THROAT: Denies headaches, denies sore throat. CARDIOVASCULAR: See HPI RESPIRATORY: Denies cough, congestion or hemoptysis. Admits shortness of breath GASTROINTESTINAL: Denies change in appetite, abdominal pain, nausea and vomiting, or diarrhea GENITOURINARY: Denies hematuria, denies infections. MUSKULOSKELETAL: Denies pain, denies swelling. INTEGUMENTARY: Denies rash, denies eczema. NEUROLOGICAL: Denies recent memory loss, no recent seizure activity. PSYCHIATRIC: Denies anxiety, denies depression. HEMATOLOGIC/LYMPHATIC: Denies anemia, denies enlarged lymph node Past Medical History Past Medical History: Atrial Fibrillation, Heart Failure, COPD, GERD/Reflux, O steoarthritis (OA), Renal Disease, Rheumatoid Arthritis (RA), Supraventricular Tachycardia (SVT), Thyroid Disorder Additional Past Medical History / Comment(s): Valvular heart disease with previous aortic valve replacement and a mitral valve repair, congestion heart failure, Paroxysmal Afib, history of SVT, history of nonsustained VT, SOB with exertion, home O2 at 2L/NC usually prn but lately ATC, arthritis, RA several joints, current L elbow pain/swelling-had "injection", nephrolithiasis, hypothyroid, diverticular dx, UTI, iron deficiency anemia. 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 History of Any Multi-Drug Resistant Organisms: None Reported Past Surgical History: Coronary Bypass/CABG, Heart Catheterization, Hysterectomy, Joint Replacement, Orthopedic Surgery Additional Past Surgical History / Comment(s): Geoff total knees arthroplasty,lt hip arthroplasty, goiter removed 1962, partial thyroidectomy, cataracts removed with lens implants, REVERSE TOTAL RIGHT SHOULDER; Rotator cuff R shoulder, cervical fusion/injections, colonoscopy 2016(next after 5yr), MATTHEW, valve surgery at [facility] 10/13/17 Prosthetic Aortic valve and mitral valve repair. Total abdominal hysterectomy in the 1980s. Past Anesthesia/Blood Transfusion Reactions: Postoperative Nausea & Vomiting (PONV) Past Psychological History: No Psychological Hx Reported Additional Psychological History / Comment(s): Pt resides with her spouse in an apartment with no stairs. She used to drive but not since valve surgery. Her spouse is helpful and able to drive her to appts. She has home oxygen. She uses a walker to ambulate and has a cane. She also has a scale and B/P monitor. She has used VMA in the recent past. Smoking Status: Former smoker Past Alcohol Use History: Occasional Additional Past Alcohol Use History / Comment(s): She used to drink 2 glasses of wine per week but hasn't for months, quit smoking @age of 43, smoked 1ppd for 30 yrs. Past Drug Use History: None Reported - Past Family History Father Family Medical History: Cancer, Myocardial Infarction (NH) Additional Family Medical History / Comment(s): in his 80's of a mi. Colon cancer. Mother Family Medical History: No Reported History Additional Family Medical History / Comment(s): age 88 . hx smoking. Daughter(s) Family Medical History: Cancer Additional Family Medical History / Comment(s): from vulvar cancer. Medications and Allergies Home Medications Medication Instructions Recorded Confirmed Type Albuterol Sulfate [Proair Hfa] 2 puff INHALATION RT-Q6H PRN 07/28/19 07/27/23 History Ascorbic Acid [Vitamin C] 500 mg PO DAILY 05/08/21 07/27/23 History Cholecalciferol (Vitamin D3) 125 mcg PO DAILY 06/06/22 07/27/23 History [Vitamin D3 (125 MCG = 5,000 IU)] Ipratropium-Albuterol Nebulize 3 ml INHALATION RT-Q6H PRN 06/06/22 07/27/23 History [Duoneb 0.5 mg-3 mg/3 ml Soln] Levothyroxine Sodium [Synthroid] 137 mcg PO DAILY 30 Days #30 tab 06/08/22 07/27/23 Rx Metoprolol Tartrate [Lopressor] 25 mg PO DAILY 09/06/22 07/27/23 History Fluticasone Propion/Salmeterol 1 puff INHALATION RT-BID 06/07/23 07/27/23 History [Advair 100-50 Diskus] HYDROcodone/APAP 10-325MG [[place] 1 tab PO Q8H PRN 06/28/23 07/27/23 History 10-325] Furosemide [Lasix] 40 mg PO DAILY 90 Days #90 tab 07/02/23 07/27/23 Rx Potassium Chloride ER [K-Dur 20] 20 meq PO BID 90 Days #180 tab 07/02/23 07/27/23 Rx Sildenafil [Revatio] 20 mg PO TID 90 Days #30 tab 07/02/23 07/27/23 Rx Warfarin [Coumadin] 2.5 mg PO HS 07/27/23 07/27/23 History Allergies Allergy/AdvReac Type Severity Reaction Status Date / Time lisinopril Allergy Unknown Verified 07/27/23 11:07 Physical Exam Vitals: Vital Signs Temp Pulse Pulse Resp BP Pulse Ox 07/31/23 00:00 98.1 F 67 17 108/72 96 07/30/23 20:51 98 07/30/23 20:41 98 07/30/23 19:50 98 F 98 18 93/59 96 07/30/23 17:20 92 18 94/58 98 07/30/23 16:42 74 07/30/23 16:29 74 07/30/23 13:15 97.7 F 71 18 112/77 95 07/30/23 10:00 71 20 07/30/23 09:21 100 07/30/23 09:08 105 H 97 07/30/23 08:00 98 F 107 H 20 93/43 98 07/30/23 04:00 86 16 92/59 97 Intake and Output 07/30/23 07/30/23 07/31/23 14:59 22:59 06:59 Intake Total 1309.062 477 130.725 Output Total 1000 Balance 1309.062 -523 130.725 Intake: Intake, IV Titration 109.062 130.725 Amount Heparin Sod,Pork in 0.45% 109.062 130.725 NaCl 25,000 unit In 0.45 % NaCl 1 250ml.bag @ 12 UNITS/KG/HR 5.976 mls/hr IV .Q24H [facility] Rx#: [id number] Oral 1200 477 Output: Urine 1000 Other: Voiding Method External Catheter External Catheter External Catheter GENERAL EXAM: Alert, 78-year-old white female appearing stated age, comfortable in no apparent distress. HEAD: Normocephalic and atraumatic EYES: Normal reaction of pupils, equal size. NOSE: Clear with pink turbinates. THROAT: No erythema or exudates. NECK: No masses, no JVD. CHEST: No chest wall deformity. LUNGS: Equal air entry with bibasilar inspiratory crackles. No wheeze, rhonchi or dullness. On 2 L/m nasal cannula. No conversational dyspnea or accessory muscle use.. CVS: S1 and S2 normal with grade 4 systolic murmur, irregular rhythm. No other extra heart sounds ABDOMEN: No hepatosplenomegaly, active bowel sounds, no guarding or rigidity. SPINE: No scoliosis or deformity SKIN: No rashes CENTRAL NERVOUS SYSTEM: No focal deficits, tone is normal in all 4 extremities. EXTREMITIES: There is no peripheral edema, clubbing, or cyanosis. Peripheral pulses are intact. Results - Laboratory Findings CBC and BMP: 07/30/23 08:30 07/30/23 08:30 PT/INR, D-dimer PT 17.7 sec (10.0-12.5) H 07/30/23 08:30 INR 1.7 (<1.2) H 07/30/23 08:30 Abnormal lab findings: Abnormal Labs 07/27/23 07/27/23 07/27/23 08:41 08:41 08:41 WBC RBC Hgb Hct MCHC RDW 16.4 H Neutrophils # PT 12.8 H INR 1.2 H APTT Chloride Carbon Dioxide BUN 18 H Glucose 116 H Total Bilirubin 1.7 H Alkaline Phosphatase 144 H Albumin 07/28/23 07/28/23 07/28/23 06:13 06:13 06:13 WBC RBC 3.44 L Hgb 10.0 L D Hct 31.9 L MCHC RDW 16.3 H Neutrophils # PT 14.0 H INR 1.3 H APTT Chloride Carbon Dioxide BUN 25 H Glucose 123 H Total Bilirubin Alkaline Phosphatase Albumin 07/28/23 07/28/23 07/29/23 10:47 10:47 02:36 WBC 11.0 H RBC 3.58 L 3.42 L Hgb 10.5 L 10.3 L Hct 33.4 L 32.1 L MCHC RDW 16.3 H 16.4 H Neutrophils # 8.5 H PT 13.9 H INR 1.3 H APTT Chloride Carbon Dioxide BUN Glucose Total Bilirubin Alkaline Phosphatase Albumin 07/29/23 07/29/23 07/30/23 02:36 02:36 08:30 WBC RBC Hgb Hct MCHC RDW Neutrophils # PT 14.8 H 17.7 H INR 1.4 H 1.7 H APTT 44.5 H 60.5 H Chloride Carbon Dioxide BUN Glucose Total Bilirubin Alkaline Phosphatase Albumin 07/30/23 07/30/23 07/30/23 08:30 08:30 08:30 WBC RBC 3.66 L Hgb 10.4 L Hct MCHC 29.8 L RDW 16.0 H Neutrophils # PT INR APTT Chloride 97 L Carbon Dioxide 32 H 35 H BUN 28 H 28 H Glucose Total Bilirubin Alkaline Phosphatase Albumin 3.3 L - Diagnostic Findings Chest x-ray: image reviewed Assessment and Plan Assessment: Acute on chronic hypoxemic respiratory failure, likely related to exacerbation of systolic congestive heart failure Atrial fibrillation with rapid ventricular rate, better controlled, currently anticoagulated on IV heparin Subtherapeutic INR on arrival Severe chronic obstructive pulmonary disease, appears stable on my evaluation Chronic hypoxemic respiratory failure History of nonischemic cardiomyopathy, Echocardiogram done on recent admission showed a left ventricular ejection fraction of 30-35%. She also has pulmonary hypertension with RVSP of 50 and severe tricuspid regurgitation. Functional aortic and mitral valves. Pulmonary hypertension History of bioprosthetic aortic valve replacement and mitral valve repair in 2018 Former Tobacco smoker Plan: Patient's medications, labs, chest x-ray reviewed. I believe that her shortness breath is primarily related to an exacerbation of systolic congestive heart failure. Patient is currently being diuresed with Bumex 1 mg twice a day. Patient states that she is voiding often. Currently on 2 L/m nasal cannula. Heart rhythm remains atrial fibrillation, with a more controlled ventricular response. Anticoagulated on IV heparin. Cardiology is following. Continue DuoNeb's [id number] and add maintenance inhaler for COPD. Negative for influenza, RSV, COVID-19. Check procalcitonin. We will continue to follow, and further recommendations are forthcoming. I have personally seen and examined the patient, performed the documentation and the assessment and plan as written. Number of minutes spent on the visit:20 Time with Patient: Greater than 30
[2023-07-31 04:55] LABS: INR 2.2 (<1.2); Prothrombin Time 22.1 sec (10.0-12.5)
[2023-07-31 05:01] LABS: African American GFR (CKD) >90 (>60 ml/min/1.73 sqM); Anion Gap 7 mmol/L; Blood Urea Nitrogen 21 mg/dL (7-17); Calcium 8.7 mg/dL (8.4-10.2); Carbon Dioxide 36 mmol/L (22-30); Chloride 95 mmol/L (98-107); Glucose 93 mg/dL (74-99); Non-African American GFR(CKD) 80 (>60 ml/min/1.73 sqM); Potassium 3.3 mmol/L (3.5-5.1); Sodium 138 mmol/L (137-145)
[2023-07-31] MEDS: PANTOPRAZOLE 40 MG TABLET PO SCH (06:15)
[2023-07-31] MEDS: SYMBICORT 160-4.5 MCG INHALER INHALATION SCH ×2 (07:44→20:31)
[2023-07-31] MEDS: IPRATROPIUM-ALBUTEROL 3 ML NEB INHALATION SCH ×4 (07:44→20:31)
[2023-07-31] MEDS: AMIODARONE 200 MG TAB PO SCH ×2 (08:41→20:03)
[2023-07-31] MEDS: BUMETANIDE 1 MG TAB PO SCH ×2 (08:41→16:30)
[2023-07-31] MEDS: METOPROLOL TARTRATE 25 MG TAB PO SCH ×2 (08:43→20:03)
[2023-07-31] MEDS ORDERED: Potassium Replacement Protocol 1 EACH MISC MISCELLANE PRN (09:04)
--- NOTE | 2023-07-31 09:17 | P.PN ---
Subjective HISTORY OF PRESENT ILLNESS: Patient is seen and examined at bedside the same. She denies any active chest pain chest pressure. Her shortness of breath is improved since the time of admission. She continues to be included control atrial fibrillation. Synopsis: 78-year-old with past medical history of atrial fibrillation, COPD, prior aortic valve replacement and mitral valve repair, presented to the hospital with bilateral lower extremity edema and shortness of breath. Admission BNP was elevated. Her INR was 1.3. 07/30/2023 Patient examined this morning at the bedside. Patient currently denies chest pain or pressure. She denies shortness of breath. She remains on IV heparin. She is receiving Coumadin. INR remains subtherapeutic at 1.8. Telemetry reveals atrial fibrillation with a heart rate in the 80-90s. Echocardiogram completed in June 2023 revealed ejection fraction 30-35% 07/31/2023 Patient examined this morning at the bedside. Patient denies chest pain or pressure. She currently denies shortness of breath. INR today is 2.2. Telemetry reveals atrial fibrillation with a heart rate in the 90s. PHYSICAL EXAM: VITAL SIGNS: Reviewed. GENERAL: Well-developed in no acute distress. NECK: Supple. No JVD or thyromegaly LUNGS: Respirations even and unlabored. Lungs essentially clear to auscultation bilaterally. HEART: Irregular rate and rhythm. S1 and S2 heard. Systolic Murmur noted EXTREMITIES: Normal range of motion. No clubbing or cyanosis. Peripheral pulses intact. No lower extremity edema ASSESSMENT: Acute hypoxic respiratory failure Acute exacerbation of congestive heart failure with reduced EF, 3035% Persistent atrial fibrillation, rate controlled Subtherapeutic INR Prior bioprosthetic aortic valve replacement Prior mitral valve repair History of nonischemic cardiomyopathy Normal coronary arteries, per cardiac catheterization 2018 History of cardioversion, 2018 for atrial flutter PLAN: Discontinue IV heparin. Continue Coumadin. Monitor INR Continue oral Bumex 1 mg twice a day. Recommend 1 mg Bumex daily at the time of discharge Continue additional cardiac medications Further recommendations pending patient's course Nurse practitioner note has been reviewed by physician. Signing provider agrees with the documented findings, assessment, and plan of care. Objective - Vital Signs Vital signs: Vital Signs Temp 98 F 07/31/23 08:44 Pulse 133 H 07/31/23 08:44 Resp 17 07/31/23 08:44 BP 105/55 07/31/23 08:44 Pulse Ox 96 07/31/23 08:44 FiO2 Intake & Output 07/30/23 07/31/23 07/31/23 18:59 06:59 18:59 Intake Total 1549.062 367.725 46.812 Output Total 1250 Balance 1549.062 -882.275 46.812 Intake: Intake, IV Titration 109.062 130.725 46.812 Amount Heparin Sod,Pork in 0.45% 109.062 130.725 46.812 NaCl 25,000 unit In 0.45 % NaCl 1 250ml.bag @ 12 UNITS/KG/HR 5.976 mls/hr IV .Q24H [facility] Rx#: [id number] Oral 1440 237 Output: Urine 1250 Other: Voiding Method External Catheter External Catheter - Labs CBC & Chem 7: 07/30/23 08:30 07/31/23 04:14 Labs: Abnormal Lab Results - Last 24 Hours (Table) 07/30/23 07/30/23 07/30/23 Range/Units 08:30 08:30 08:30 RBC 3.66 L (3.80-5.40) m/uL Hgb 10.4 L (11.4-16.0) gm/dL MCHC 29.8 L (31.0-37.0) g/dL RDW 16.0 H (11.5-15.5) % PT 17.7 H (10.0-12.5) sec INR 1.7 H (<1.2) APTT 60.5 H (22.0-30.0) sec Potassium (3.5-5.1) mmol/L Chloride (98-107) mmol/L Carbon Dioxide 32 H (22-30) mmol/L BUN 28 H (7-17) mg/dL Albumin 3.3 L (3.5-5.0) g/dL 07/30/23 07/31/23 07/31/23 Range/Units 08:30 04:14 04:14 RBC (3.80-5.40) m/uL Hgb (11.4-16.0) gm/dL MCHC (31.0-37.0) g/dL RDW (11.5-15.5) % PT 22.1 H (10.0-12.5) sec INR 2.2 H (<1.2) APTT (22.0-30.0) sec Potassium 3.3 L (3.5-5.1) mmol/L Chloride 97 L 95 L (98-107) mmol/L Carbon Dioxide 35 H 36 H (22-30) mmol/L BUN 28 H 21 H (7-17) mg/dL Albumin (3.5-5.0) g/dL
--- NOTE | 2023-07-31 09:21 | P.PN ---
Subjective Progress Note Date: 07/31/23 This is an 78-year-old female patient who presented to the ER with concerns of shortness of breath patient reports this has been increasing over the past few days. Patient was recently treated or CHF exacerbation about a month ago was discharged home. Patient denies any recent illness or fevers. Patient reports bilateral lower extremity edema but does report this is chronic for her. Chest x-ray completed showing low lung volumes a generalized hazy appearance which could represent atelectasis versus pulmonary edema correlate with serum BNP. BNP level 5250. Patient has past medical history of atrial fibrillation, heart failure, COPD, GERD, renal disease, rheumatoid arthritis, thyroid disorder, previous aortic valve replacement, ex-smoker. At this time patient will be admitted cardiology services will be consulted. Patient started on IV Lasix. Patient also given IV Lopressor due to atrial flutter with RVR. At this time patient denies chest pain. Patient denies nausea vomiting or diarrhea. Patient denies any urinary burning or frequency On 07/28/2023 patient was seen and examined on the medical floor she is alert and oriented 3 in no apparent distress she is complaining of cough and shortness of breath otherwise she denies any complaints there is no fever or chills no headache or dizziness no chest pain no palpitation no nausea or vomiting no abdominal pain no diarrhea and no urinary symptoms. At this time will continue with same management, will check chest x-ray PA and lateral in a.m., will check COVID-19 end influenza A and B PCR testing, will follow in a.m. On 07/29/2023 patient's alert and oriented 3. COVID-19 influenza negative. Repeat chest x-ray ordered. Patient remains on IV Lasix. Coumadin and bridging with IV heparin. Cardiology services following. Current vital signs temp 98.0, heart rate 66, respiratory rate 16, blood pressure 126/86. At this time patient denies chest pain. Patient does report shortness of breath. Patient denies nausea vomiting or diarrhea. Patient denies any urinary burning or frequency On 07/30/2023 patient is alert and oriented 3. Patient transitioned from IV Lasix to Bumex. Patient remains on heparin for bridging INR 1.7 pharmacy to dose Coumadin ordered. Patient reports minimum improvement with shortness of breath at this time will consult pulmonary services. Patient denies chest pain. Patient denies nausea vomiting or diarrhea. Patient denies any urinary burning or frequency. On 07/31/2023 patient was seen and examined on the medical floor she is alert and oriented 3 in no apparent distress there is no fever or chills no headache or dizziness no chest pain, she reports improvement in her shortness of breath and cough there is no nausea or vomiting no abdominal pain no diarrhea and no urinary symptoms. Today INR is 2.2 IV heparin was discontinued patient will be continued on oral Coumadin and oral Bumex she is maintained on oxygen 2 L via nasal cannula physical therapy and occupational therapy consult requested will assess if patient will need rehab prior to going home. Objective - Vital Signs Vital signs: Vital Signs Temp 98 F 07/31/23 08:44 Pulse 133 H 07/31/23 08:44 Resp 17 07/31/23 08:44 BP 105/55 07/31/23 08:44 Pulse Ox 96 07/31/23 08:44 FiO2 Intake & Output 07/30/23 07/31/23 07/31/23 18:59 06:59 18:59 Intake Total 1549.062 367.725 46.812 Output Total 1250 Balance 1549.062 -882.275 46.812 Intake: Intake, IV Titration 109.062 130.725 46.812 Amount Heparin Sod,Pork in 0.45% 109.062 130.725 46.812 NaCl 25,000 unit In 0.45 % NaCl 1 250ml.bag @ 12 UNITS/KG/HR 5.976 mls/hr IV .Q24H [facility] Rx#: [id number] Oral 1440 237 Output: Urine 1250 Other: Voiding Method External Catheter External Catheter - Exam Head normocephalic Neck supple Lungs clear to auscultation bilaterally no wheezing or crackles Heart regular rate and rhythm S1-S2, no rub or gallop Abdomen is soft nontender nondistended positive bowel sounds no hepatosplenomegaly Extremities no edema Neuro alert and orientated to 3 - Labs CBC & Chem 7: 07/30/23 08:30 07/31/23 04:14 Labs: Abnormal Lab Results - Last 24 Hours (Table) 07/30/23 07/30/23 07/30/23 Range/Units 08:30 08: 08:30 RBC 3.66 L (3.80-5.40) m/uL Hgb 10.4 L (11.4-16.0) gm/dL MCHC 29.8 L (31.0-37.0) g/dL RDW 16.0 H (11.5-15.5) % PT 17.7 H (10.0-12.5) sec INR 1.7 H (<1.2) APTT 60.5 H (22.0-30.0) sec Potassium (3.5-5.1) mmol/L Chloride (98-107) mmol/L Carbon Dioxide 32 H (22-30) mmol/L BUN 28 H (7-17) mg/dL Albumin 3.3 L (3.5-5.0) g/dL 07/30/23 07/31/23 07/31/23 Range/Units 08:30 04:14 04:14 RBC (3.80-5.40) m/uL Hgb (11.4-16.0) gm/dL MCHC (31.0-37.0) g/dL RDW (11.5-15.5) % PT 22.1 H (10.0-12.5) sec INR 2.2 H (<1.2) APTT (22.0-30.0) sec Potassium 3.3 L (3.5-5.1) mmol/L Chloride 97 L 95 L (98-107) mmol/L Carbon Dioxide 35 H 36 H (22-30) mmol/L BUN 28 H 21 H (7-17) mg/dL Albumin (3.5-5.0) g/dL Assessment and Plan Plan: 1. Shortness breath secondary to acute CHF exacerbation 2. Chronic systolic congestive heart failure 3. History of paroxysmal atrial fibrillation. Maintained on Coumadin 4. History of aortic valve replacement 5. History of mitral valve repair 6. History of pulmonary hypertension Pharmacy to dose Coumadin for DVT prophylaxis. GI prophylaxis Protonix Cardiology services consulted Patient started on IV Lasix Repeat labs ordered
[2023-07-31] MEDS ORDERED: POTASSIUM CHLORIDE ER 20 MEQ TAB.ER PO STA (09:28)
[2023-07-31] MEDS ORDERED: WARFARIN 3 MG TAB PO ONE (18:00)
[2023-08-01] MEDS: PANTOPRAZOLE 40 MG TABLET PO SCH (06:40)
[2023-08-01] MEDS: SYMBICORT 160-4.5 MCG INHALER INHALATION SCH (07:42)
[2023-08-01] MEDS: IPRATROPIUM-ALBUTEROL 3 ML NEB INHALATION SCH ×2 (07:42→10:43)
[2023-08-01] MEDS: AMIODARONE 200 MG TAB PO SCH (08:06)
[2023-08-01] MEDS: BUMETANIDE 1 MG TAB PO SCH (08:06)
[2023-08-01] MEDS: METOPROLOL TARTRATE 25 MG TAB PO SCH (08:07)
[2023-08-01 09:08] LABS: Basophils % (A) 0 %; Eosinophils # (A) 0.3 k/uL (0-0.7); Eosinophils % (A) 5 %; HCT 34.4 % (34.0-46.0); HGB 10.8 gm/dL (11.4-16.0); Hypochromasia Moderate; Lymphocytes # (A) 1.2 k/uL (1.0-4.8); Lymphocytes % (A) 20 %; MCH 29.6 pg (25.0-35.0); MCHC 31.5 g/dL (31.0-37.0); MCV 94.1 fL (80.0-100.0); Mean Platelet Volume 8.1; Monocytes # (A) 0.2 k/uL (0-1.0); Monocytes % (A) 4 %; Neutrophils # (A) 4.1 k/uL (1.3-7.7); Neutrophils % (A) 68 %; Platelet Count 222 k/uL (150-450); RBC 3.66 m/uL (3.80-5.40); RDW 15.7 % (11.5-15.5)
[2023-08-01 09:29] LABS: INR 2.1 (<1.2); Prothrombin Time 21.4 sec (10.0-12.5)
[2023-08-01 09:40] LABS: Chloride 96 mmol/L (98-107)
[2023-08-01 09:42] LABS: ALT 18 U/L (4-34); AST 23 U/L (14-36); African American GFR (CKD) 84 (>60 ml/min/1.73 sqM); Albumin 3.4 g/dL (3.5-5.0); Alkaline Phosphatase 116 U/L (38-126); Anion Gap 8 mmol/L; Blood Urea Nitrogen 20 mg/dL (7-17); Calcium 8.8 mg/dL (8.4-10.2); Carbon Dioxide 35 mmol/L (22-30); Glucose 84 mg/dL (74-99); Non-African American GFR(CKD) 73 (>60 ml/min/1.73 sqM); Potassium 3.7 mmol/L (3.5-5.1); Sodium 139 mmol/L (137-145); Total Protein 6.4 g/dL (6.3-8.2)
--- NOTE | 2023-08-01 10:44 | XR ---
EXAMINATION TYPE: XR chest 2V DATE OF EXAM: 08/01/2023 10:39 AM CLINICAL INDICATION:Female, 78 years old with history of LV function; [facility] COMPARISON: Chest radiographs from 07/21/2023. TECHNIQUE: XR chest 2V Frontal and lateral views of the chest. FINDINGS: Lungs/Pleura: No evidence of focal consolidation or pneumothorax. Blunting of the costophrenic angles is present. Pulmonary vascularity: Pulmonary vascular congestion. Heart/mediastinum: Cardiomediastinal silhouette is enlarged and stable. Post aortic valve repair patrica nges. Left atrial appendage occlusion device is present. Musculoskeletal: No acute osseous pathology. Shoulder arthroplasty changes with hardware intact. Other findings: None Lines/Tubes: IMPRESSION: Improved pulmonary vascular congestion and bilateral pleural effusions. Correlate with BNP for conge stive heart failure.
--- NOTE | 2023-08-01 11:12 | P.DS ---
Providers Date of admission: 07/28/23 12:29 Expected date of discharge: 08/01/23 Attending physician: Olya Olson Consults: 07/27/23 10:42 Consult Physician Urgent Consulting Provider: [facility] Consult Reason/Comments: chf exacerbation Do you want consulting provider notified?: Yes 07/30/23 11:45 Consult Physician Routine Consulting Provider: Milton Doyle Reason/Comments: Increased shortness of breath Do you want consulting provider notified?: Yes Primary care physician: Olya Olson Hospital Course: Discharge diagnosis 1. Shortness breath secondary to acute CHF exacerbation 2. Chronic systolic congestive heart failure 3. History of paroxysmal atrial fibrillation. Maintained on Coumadin 4. History of aortic valve replacement 5. History of mitral valve repair 6. History of pulmonary hypertension Hospital course This is an 78-year-old female patient who presented to the ER with concerns of shortness of breath patient reports this has been increasing over the past few days. Patient was recently treated or CHF exacerbation about a month ago was discharged home. Patient denies any recent illness or fevers. Patient reports bilateral lower extremity edema but does report this is chronic for her. Chest x-ray completed showing low lung volumes a generalized hazy appearance which could represent atelectasis versus pulmonary edema correlate with serum BNP. BNP level 5250. Patient has past medical history of atrial fibrillation, heart failure, COPD, GERD, renal disease, rheumatoid arthritis, thyroid disorder, previous aortic valve replacement, ex-smoker. At this time patient will be admitted cardiology services will be consulted. Patient started on IV Lasix. Patient also given IV Lopressor due to atrial flutter with RVR. At this time patient denies chest pain. Patient denies nausea vomiting or diarrhea. Patient denies any urinary burning or frequency On 07/28/2023 patient was seen and examined on the medical floor she is alert and oriented 3 in no apparent distress she is complaining of cough and shortness of breath otherwise she denies any complaints there is no fever or chills no headache or dizziness no chest pain no palpitation no nausea or vomiting no abdominal pain no diarrhea and no urinary symptoms. At this time will continue with same management, will check chest x-ray PA and lateral in a.m., will check COVID-19 end influenza A and B PCR testing, will follow in a.m. On 07/29/2023 patient's alert and oriented 3. COVID-19 influenza negative. Repeat chest x-ray ordered. Patient remains on IV Lasix. Coumadin and bridging with IV heparin. Cardiology services following. Current vital signs temp 98.0, heart rate 66, respiratory rate 16, blood pressure 126/86. At this time patient denies chest pain. Patient does report shortness of breath. Patient denies nausea vomiting or diarrhea. Patient denies any urinary burning or frequency On 07/30/2023 patient is alert and oriented 3. Patient transitioned from IV Lasix to Bumex. Patient remains on heparin for bridging INR 1.7 pharmacy to dose Coumadin ordered. Patient reports minimum improvement with shortness of breath at this time will consult pulmonary services. Patient denies chest pain. Patient denies nausea vomiting or diarrhea. Patient denies any urinary burning or frequency. On 07/31/2023 patient was seen and examined on the medical floor she is alert and oriented 3 in no apparent distress there is no fever or chills no headache or dizziness no chest pain, she reports improvement in her shortness of breath and cough there is no nausea or vomiting no abdominal pain no diarrhea and no urinary symptoms. Today INR is 2.2 IV heparin was discontinued patient will be continued on oral Coumadin and oral Bumex she is maintained on oxygen 2 L via nasal cannula physical therapy and occupational therapy consult requested will assess if patient will need rehab prior to going home. On 08/01/2023 patient's alert and oriented 3. Patient is very eager to be DC'd home. Discussed case with cardiology services patient cleared for discharge patient started on Bumex and amiodarone and increased dose of Lopressor. Patient to take 400 twice a day for 1 week of amiodarone 200 twice a day for 1 week and 200 daily patient follow up with cardiology services for further management. 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 patient on increased dose of Coumadin 3 mg daily Patient Condition at Discharge: Stable Plan - Discharge Summary Discharge Rx Participant: No New Discharge Prescriptions: New Bumetanide [Bumex] 1 mg PO DAILY #90 tablet Amiodarone [Cordarone] 400 mg PO BID 30 Days #90 tab Warfarin [Coumadin] 3 mg PO DAILY 30 Days #30 tab Metoprolol Tartrate [Lopressor] 25 mg PO BID 30 Days #60 tab Continue Albuterol Sulfate [Proair Hfa] 2 puff INHALATION RT-Q6H PRN PRN Reason: Shortness Of Breath Ascorbic Acid [Vitamin C] 500 mg PO DAILY Cholecalciferol (Vitamin D3) [Vitamin D3 (125 MCG = 5,000 IU)] 125 mcg PO DAILY Ipratropium-Albuterol Nebulize [Duoneb 0.5 mg-3 mg/3 ml Soln] 3 ml INHALATION RT-Q6H PRN PRN Reason: Shortness Of Breath Fluticasone Propion/Salmeterol [Advair 100-50 Diskus] 1 puff INHALATION RT-B ID Levothyroxine Sodium [Synthroid] 137 mcg PO DAILY 30 Days #30 tab HYDROcodone/APAP 10-325MG [Bern 10-325] 1 tab PO Q8H PRN PRN Reason: Pain Potassium Chloride ER [K-Dur 20] 20 meq PO BID 90 Days #180 tab Sildenafil [Revatio] 20 mg PO TID 90 Days #30 tab Discontinued Metoprolol Tartrate [Lopressor] 25 mg PO DAILY Furosemide [Lasix] 40 mg PO DAILY 90 Days #90 tab Warfarin [Coumadin] 2.5 mg PO HS Discharge Medication List Albuterol Sulfate [Proair Hfa] 2 puff INHALATION RT-Q6H PRN 07/28/19 [History] Ascorbic Acid [Vitamin C] 500 mg PO DAILY 05/08/21 [History] Cholecalciferol (Vitamin D3) [Vitamin D3 (125 MCG = 5,000 IU)] 125 mcg PO DAILY 06/06/22 [History] Ipratropium-Albuterol Nebulize [Duoneb 0.5 mg-3 mg/3 ml Soln] 3 ml INHALATION RT-Q6H PRN 06/06/22 [History] Levothyroxine Sodium [Synthroid] 137 mcg PO DAILY 30 Days #30 tab 06/08/22 [Rx] Fluticasone Propion/Salmeterol [Advair 100-50 Diskus] 1 puff INHALATION RT-BID 06/07/23 [History] HYDROcodone/APAP 10-325MG [Bern 10-325] 1 tab PO Q8H PRN 06/28/23 [History] Potassium Chloride ER [K-Dur 20] 20 meq PO BID 90 Days #180 tab 07/02/23 [Rx] Sildenafil [Revatio] 20 mg PO TID 90 Days #30 tab 07/02/23 [Rx] Bumetanide [Bumex] 1 mg PO DAILY #90 tablet 07/31/23 [Rx] Amiodarone [Cordarone] 400 mg PO BID 30 Days #90 tab 08/01/23 [Rx] Metoprolol Tartrate [Lopressor] 25 mg PO BID 30 Days #60 tab 08/01/23 [Rx] Warfarin [Coumadin] 3 mg PO DAILY 30 Days #30 tab 08/01/23 [Rx] Follow up Appointment(s)/Referral(s): Alexx Flores MD [STAFF PHYSICIAN] - 1 Week Olya Olson MD [Primary Care Provider] - 1-2 days [facility] Visiting Nurse, [NON-STAFF] - Activity/Diet/Wound Care/Special Instructions: Activity as tolerated Diet heart healthy Discharge Disposition: HOME SELF-CARE
[2023-08-01 13:32] VITALS: BP 95/64; PULSE 80; RESP 16; TEMP 98
--- NOTE | 2023-08-01 13:35 | P.PN ---
Subjective HISTORY OF PRESENT ILLNESS: Patient is seen and examined at bedside the same. She denies any active chest pain chest pressure. Her shortness of breath is improved since the time of admission. She continues to be included control atrial fibrillation. Synopsis: 78-year-old with past medical history of atrial fibrillation, COPD, prior aortic valve replacement and mitral valve repair, presented to the hospital with bilateral lower extremity edema and shortness of breath. Admission BNP was elevated. Her INR was 1.3. 07/30/2023 Patient examined this morning at the bedside. Patient currently denies chest pain or pressure. She denies shortness of breath. She remains on IV heparin. She is receiving Coumadin. INR remains subtherapeutic at 1.8. Telemetry reveals atrial fibrillation with a heart rate in the 80-90s. Echocardiogram completed in June 2023 revealed ejection fraction 30-35% 07/31/2023 Patient examined this morning at the bedside. Patient denies chest pain or pressure. She currently denies shortness of breath. INR today is 2.2. Telemetry reveals atrial fibrillation with a heart rate in the 90s. 08/01/2023 Patient examined this morning. She is sitting up in the chair. She denies chest pain or pressure. She denies shortness of breath. Telemetry reveals atrial flutter with heart rate in the 90s. She remains on oral diuretics. Vital signs are stable. Repeat chest x-ray today reveals improved pulmonary vascular congestion and bilateral pleural effusions. PHYSICAL EXAM: VITAL SIGNS: Reviewed. GENERAL: Well-developed in no acute distress. NECK: Supple. No JVD or thyromegaly LUNGS: Respirations even and unlabored. Lungs essentially clear to auscultation bilaterally. HEART: Irregular rate and rhythm. S1 and S2 heard. Systolic Murmur noted EXTREMITIES: Normal range of motion. No clubbing or cyanosis. Peripheral pulses intact. No lower extremity edema ASSESSMENT: Acute hypoxic respiratory failure Acute exacerbation of congestive heart failure with reduced EF, 3035% Persistent atrial fibrillation/typical atrial flutter, rate controlled Subtherapeutic INR Prior bioprosthetic aortic valve replacement Prior mitral valve repair History of nonischemic cardiomyopathy Normal coronary arteries, per cardiac catheterization 2018 History of cardioversion, 2018 for atrial flutter PLAN: Continue current cardiac medications Patient is currently stable for discharge home today from a cardiac standpoint Patient is to follow up post discharge in the office Nurse practitioner note has been reviewed by physician. Signing provider agrees with the documented findings, assessment, and plan of care. Objective - Vital Signs Vital signs: Vital Signs Temp 98 F 08/01/23 12:00 Pulse 80 08/01/23 12:00 Resp 16 08/01/23 12:00 BP 95/64 08/01/23 12:00 Pulse Ox 98 08/01/23 12:00 FiO2 Intake & Output 07/31/23 08/01/23 08/01/23 18:59 06:59 18:59 Intake Total 406.812 240 180 Output Total 320 400 Balance 86.812 -160 180 Intake: Intake, IV Titration 46.812 Amount Heparin Sod,Pork in 0.45% 46.812 NaCl 25,000 unit In 0.45 % NaCl 1 250ml.bag @ 12 UNITS/KG/HR 5.976 mls/hr IV .Q24H [facility] Rx#: [id number] Oral 360 240 180 Output: Urine 320 400 Other: Voiding Method External Catheter External Catheter External Catheter - Labs CBC & Chem 7: 08/01/23 08:23 08/01/23 08:23 Labs: Abnormal Lab Results - Last 24 Hours (Table) 08/01/23 08/01/23 08/01/23 Range/Units 08:23 08:23 08:23 RBC 3.66 L (3.80-5.40) m/uL Hgb 10.8 L (11.4-16.0) gm/dL RDW 15.7 H (11.5-15.5) % PT 21.4 H (10.0-12.5) sec INR 2.1 H (<1.2) Chloride 96 L (98-107) mmol/L Carbon Dioxide 35 H (22-30) mmol/L BUN 20 H (7-17) mg/dL Albumin 3.4 L (3.5-5.0) g/dL
[2023-08-01] MEDS ORDERED: WARFARIN 2 MG TAB PO ONE (18:00)
--- NOTE | 2023-08-02 09:50 | PN ---
PROGRESS NOTE SUBJECTIVE: This is an 78-year-old female who was seen in consultation. The patient was admitted to the hospital with symptoms of shortness of breath. On evaluation, she was found to have systolic heart failure which was acutely exacerbated. The patient has a history of chronic systolic CHF, atrial fibrillation, severe COPD, and nonischemic cardiomyopathy among other things. The patient is doing reasonably well. The patient is currently on 2 L of oxygen. Saturations are 98%. The patient is hoping to be discharged relatively soon. PHYSICAL EXAMINATION: VITAL SIGNS: Current vital signs are reviewed. Temperature is 98 degrees. Heart rate 80. Respiratory rate 16. Blood pressure 95/64. Mean 74, 2 L saturation 98%. HEENT: Grossly unremarkable. NECK: Supple, full range of motion. No adenopathy. Neck veins are flat. CARDIOVASCULAR: Reveals regular rhythm and rate. S1, S2 normal. There is a loud systolic murmur noted. LUNGS: Reveal some bibasilar crackles. Breath sounds equal. No wheezes or rhonchi. Saturations are 98% on 2 L. ABDOMEN: Soft. Bowel sounds are heard. EXTREMITIES: Intact. No cyanosis, clubbing, or edema. SKIN: Without rash. NEUROLOGIC: Brief, but nonfocal. LABORATORY DATA: Labs reviewed. White count 6, hemoglobin 10.8, hematocrit 34.4, platelet count 222,000. PT 21.4, INR 2.1. Sodium 139, potassium 3.7, chloride 96, CO2 is 35, BUN 20, and creatinine 0.77. Procalcitonin level is normal at 0.06. She tested negative for influenza, RSV, and coronavirus. Chest x-ray today shows an improved pattern of pulmonary vascular congestion. ASSESSMENT: 1. Acute on chronic hypoxemic respiratory failure, secondary to an exacerbation of systolic congestive heart failure. 2. Atrial fibrillation with rapid ventricular response. 3. Subtherapeutic INR on arrival. 4. Severe chronic obstructive pulmonary disease, stable. 5. Chronic hypoxemic respiratory failure. 6. History of nonischemic cardiomyopathy. 7. History of pulmonary hypertension. 8. History of bioprosthetic aortic valve replacement and mitral valve repair, 2018. 9. Former tobacco use. PLAN: The patient is doing well. She continues on 2 L. Saturations are 98%. Labs, x-rays, and medications are reviewed. The patient will follow up with her primary care physician. I have not seen her in the office for a number of years. She does have severe COPD. I have encouraged her to come back to the office when she is feeling up to it. No additional recommendations are made. Prognosis is guarded. MMNEEL / YUMIKON: [id number] /
== END 2023-08-01 13:10 | disposition home or self-care (01) | DRG 291 ==
LOC: EC 07:38 → 3SCARD 10:45 → OBSVTOIN 07-28 12:29
PROVIDERS: ADMIT Internal Medicine; ATTEND Internal Medicine
DX: I11.0 Hypertensive heart disease with heart failure (principal); I50.23 Acute on chronic systolic (congestive) heart failure; J96.21 Acute and chronic respiratory failure with hypoxia; I48.21 Permanent atrial fibrillation; J44.1 Chronic obstructive pulmonary disease with (acute) exacerbation; I48.3 Typical atrial flutter; Z20.822 Contact with and (suspected) exposure to COVID-19; I42.8 Other cardiomyopathies; R79.1 Abnormal coagulation profile; E03.9 Hypothyroidism, unspecified; I07.1 Rheumatic tricuspid insufficiency; I25.10 Atherosclerotic heart disease of native coronary artery without angina pectoris; I27.20 Pulmonary hypertension, unspecified; M06.9 Rheumatoid arthritis, unspecified; Z79.01 Long term (current) use of anticoagulants; Z79.890 Hormone replacement therapy; Z79.899 Other long term (current) drug therapy; Z82.49 Family history of ischemic heart disease and other diseases of the circulatory system; Z90.710 Acquired absence of both cervix and uterus; Z87.442 Personal history of urinary calculi; M19.90 Unspecified osteoarthritis, unspecified site; D50.9 Iron deficiency anemia, unspecified; Z87.440 Personal history of urinary (tract) infections; Z95.1 Presence of aortocoronary bypass graft; Z95.3 Presence of xenogenic heart valve; Z96.1 Presence of intraocular lens; Z96.642 Presence of left artificial hip joint; Z99.81 Dependence on supplemental oxygen; Z98.42 Cataract extraction status, left eye; Z98.41 Cataract extraction status, right eye
CPT/HCPCS: 36415; 71045; 71046; 80048; 80053; 83605; 83880; 84145; 84484; 85025; 85610; 85730; 87636; 93005; 94640; 94760; 96374; 96375; 96376; 99285

== ENCOUNTER 2023-08-23 03:32 | Inpatient (IN) | payer MEDICARE, OTHER ==
[2023-08-23 04:58] LABS: Basophils % (A) 1 %; Eosinophils # (A) 0.1 k/uL (0-0.7); Eosinophils % (A) 2 %; HCT 34.2 % (34.0-46.0); HGB 10.1 gm/dL (11.4-16.0); Hypochromasia Marked; Lymphocytes # (A) 1.1 k/uL (1.0-4.8); Lymphocytes % (A) 13 %; MCH 28.8 pg (25.0-35.0); MCHC 29.4 g/dL (31.0-37.0); MCV 97.7 fL (80.0-100.0); Mean Platelet Volume 8.8; Monocytes # (A) 0.4 k/uL (0-1.0); Monocytes % (A) 5 %; Neutrophils # (A) 6.5 k/uL (1.3-7.7); Neutrophils % (A) 77 %; Platelet Count 164 k/uL (150-450); RDW 15.7 % (11.5-15.5); WBC 8.4 k/uL (3.8-10.6)
[2023-08-23 05:00] LABS: VBG PH 7.36 (7.31-7.41)
[2023-08-23 05:19] LABS: INR 1.9 (<1.2); Partial Thromboplastin Time 28.1 sec (22.0-30.0); Prothrombin Time 18.8 sec (10.0-12.5)
[2023-08-23 05:20] LABS: ALT 29 U/L (4-34); African American GFR (CKD) >90 (>60 ml/min/1.73 sqM); Albumin 3.6 g/dL (3.5-5.0); Anion Gap 11 mmol/L; Blood Urea Nitrogen 27 mg/dL (7-17); Calcium 8.9 mg/dL (8.4-10.2); Carbon Dioxide 22 mmol/L (22-30); Chloride 107 mmol/L (98-107); Glucose 134 mg/dL (74-99); Non-African American GFR(CKD) 85 (>60 ml/min/1.73 sqM); Sodium 140 mmol/L (137-145); Total Protein 6.8 g/dL (6.3-8.2)
[2023-08-23 05:26] LABS: AST 46 U/L (14-36); Alkaline Phosphatase 156 U/L (38-126); Potassium 4.7 mmol/L (3.5-5.1)
[2023-08-23 05:29] LABS: NT-Pro-B-Type Natriuretic Pept 7740 pg/mL
--- NOTE | 2023-08-23 06:58 | XR ---
EXAMINATION TYPE: XR chest 2V DATE OF EXAM: 08/23/2023 4:34 AM CLINICAL INDICATION:Female, 78 years old with history of difficulty breathing; COMPARISON: Chest radiographs from 08/01/2023 TECHNIQUE: XR chest 2V Frontal and lateral views of the chest. FINDINGS: Lungs/Pleura: No evidence of focal consolidation or pneumothorax. Blunting of the costophrenic angles is present. Pulmonary vascularity: Pulmonary vascular congestion. Heart/mediastinum: Cardiomediastinal silhouette is enlarged and stable. Post aortic valve repair patrica nges. Left atrial appendage occlusion device is present. Musculoskeletal: No acute osseous pathology. Midline sternotomy wires are noted. Right shoulder arthr oplasty appears intact. IMPRESSION: Cardiomegaly, pulmonary vascular congestion and bilateral pleural effusions. Correlate with BNP for c ongestive heart failure.
--- NOTE | 2023-08-23 07:25 | CT ---
EXAMINATION TYPE: CT chest angio for PE CT DLP: 226.7 mGycm, Automated exposure control for dose reduction was used. DATE OF EXAM: 08/23/2023 6:22 AM COMPARISON: CT 07/29/2019 CLINICAL INDICATION:Female, 78 years old with history of Dyspnea, possible PE; TECHNIQUE/CONTRAST: CTA scan of the thorax is performed with IV Contrast, patient injected with 100 mL of Isovue 370, MIP images are created and reviewed these are created on a separate workstation.. FINDINGS: Pulmonary Artery: There is no evidence for a filling defect within the pulmonary vasculature to sugge st acute pulmonary embolism. The pulmonary artery is dilated up to 2.9 cm.. Lungs/Pleura: No evidence of focal consolidation, pleural effusion or pneumothorax. Airway: Large airways are patent. Heart: The heart is enlarged for size. There is coronary artery calcifications. Aortic valve repair c hanges. Mitral valve annular calcifications. Atrial appendage occlusion device present. Vasculature: No evidence of aortic aneurysm. Reflux of contrast in the IVC. Mediastinum: No gross evidence of adenopathy. Musculoskeletal: Moderate degenerative disc disease changes are present throughout the thoracolumbar spine. Sternotomy wires are present. Soft Tissues: Unremarkable. Lower neck: No significant findings. Upper Abdomen: No significant findings. IMPRESSION: 1. No evidence of pulmonary embolism. 2. Cardiomegaly, pulmonary vascular congestion and left pleural effusion. Correlate for signs and sym ptoms of congestive heart failure. 3. Calcifications along the left pleura which could be secondary to prior asbestos exposure. Given th e appearance of a split pleural sign on the left in this appearance dating back multiple years a supervisor mattress and boxsprings rhianna infection is more likely the cause. Finding present dating back to 2018.
--- NOTE | 2023-08-23 07:39 | ED ---
SOB HPI - General Chief Complaint: Shortness of Breath Stated Complaint: COPD, Shortness of Breath Time Seen by Provider: 08/23/23 03:41 Source: EMS Mode of arrival: EMS Limitations: no limitations - History of Present Illness Initial Comments: this patient is an 78-year-old woman with history of some underlying COPD and also previous heart valve replacement. She states that going back for about 3 weeks now she has been having some worsening of underlying shortness of breath. Patient states that she had called her physician related to the breathing and had been started on home oxygen but is still continuing to feel short of breath. Patient has not noted fevers. She does have a little bit of sputum with the cough is mainly white. She has noted some swelling of the legs bilaterally. MD Complaint: shortness of breath Onset/Timin -: week(s) Severity scale (1-10): 0 Consistency: constant Improves With: nothing Worsens With: lying flat, exertion Known History Of: COPD, congestive heart failure Associated Symptoms: cough, sputum production, lower extremity pain Treatments Prior to Arrival: oxygen - Related Data Home Oxygen Therapy: Yes Home Oxygen Amount: 3 Liters Home Medications Medication Instructions Recorded Confirmed Albuterol Sulfate [Proair Hfa] 2 puff INHALATION RT-Q6H PRN 07/28/19 09/11/23 Ascorbic Acid [Vitamin C] 500 mg PO DAILY 05/08/21 09/11/23 Cholecalciferol (Vitamin D3) 125 mcg PO DAILY 06/06/22 09/11/23 [Vitamin D3 (125 MCG = 5,000 IU)] Ipratropium-Albuterol Nebulize 3 ml INHALATION RT-Q6H PRN 06/06/22 09/11/23 [Duoneb 0.5 mg-3 mg/3 ml Soln] Fluticasone Propion/Salmeterol 1 puff INHALATION RT-BID 06/07/23 09/11/23 [Advair 100-50 Diskus] HYDROcodone/APAP 10-325MG [[place] 1 tab PO Q8H PRN 06/28/23 09/11/23 10-325] Furosemide [Lasix] 40 mg PO DAILY 09/04/23 09/11/23 Warfarin [Coumadin] 2.5 mg PO HS 09/11/23 09/11/23 Previous Rx's Medication Instructions Recorded Sildenafil [Revatio] 20 mg PO TID 90 Days #30 tab 07/02/23 Levothyroxine Sodium [Synthroid] 150 mcg PO [id number] 30 Days #30 08/27/23 tablet Metoprolol Tartrate [Lopressor] 50 mg PO BID 30 Days #60 tab 08/27/23 Allergies Allergy/AdvReac Type Severity Reaction Status Date / Time lisinopril Allergy Unknown Verified 09/11/23 17:53 Review of Systems ROS Statement: Those systems with pertinent positive or pertinent negative responses have been documented in the HPI. ROS Other: All systems not noted in ROS Statement are negative. Constitutional: Denies: fever, chills, weakness Respiratory: Reports: cough, dyspnea. Denies: hemoptysis Cardiovascular: Reports: dyspnea on exertion, orthopnea, edema Gastrointestinal: Denies: abdominal pain, vomiting, diarrhea Genitourinary: Denies: dysuria, hematuria Musculoskeletal: Denies: back pain Skin: Denies: rash Neurological: Denies: headache, weakness Past Medical History Past Medical History: Atrial Fibrillation, Heart Failure, COPD, GERD/Reflux, Osteoarthritis (OA), Renal Disease, Rheumatoid Arthritis (RA), Supraventricular Tachycardia (SVT), Thyroid Disorder Additional Past Medical History / Comment(s): Valvular heart disease with previous aortic valve replacement and a mitral valve repair, congestion heart failure, Paroxysmal Afib, history of SVT, history of nonsustained VT, SOB with exertion, home O2 at 2L/NC usually prn but lately ATC, arthritis, RA several joints, current L elbow pain/swelling-had "injection", nephrolithiasis, hypothyroid, diverticular dx, UTI, iron deficiency anemia. 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 History of Any Multi-Drug Resistant Organisms: None Reported Past Surgical History: Coronary Bypass/CABG, Heart Catheterization, H ysterectomy, Joint Replacement, Orthopedic Surgery Additional Past Surgical History / Comment(s): Geoff total knees arthroplasty,lt hip arthroplasty, goiter removed 1962, partial thyroidectomy, cataracts removed with lens implants, REVERSE TOTAL RIGHT SHOULDER; Rotator cuff R shoulder, cervical fusion/injections, colonoscopy 2016(next after 5yr), MATTHEW, valve surgery at [facility] 10/13/17 Prosthetic Aortic valve and mitral valve repair. Total abdominal hysterectomy in the 1980s. Past Anesthesia/Blood Transfusion Reactions: Postoperative Nausea & Vomiting (PONV) Past Psychological History: No Psychological Hx Reported Additional Psychological History / Comment(s): Pt resides with her spouse in an apartment with no stairs. She used to drive but not since valve surgery. Her spouse is helpful and able to drive her to appts. She has home oxygen. She uses a walker to ambulate and has a cane. She also has a scale and B/P monitor. She has used VMA in the recent past. Smoking Status: Former smoker Past Alcohol Use History: Occasional Additional Past Alcohol Use History / Comment(s): She used to drink 2 glasses of wine per week but hasn't for months, quit smoking @age of 43, smoked 1ppd for 30 yrs. Past Drug Use History: None Reported - Past Family History Father Family Medical History: Cancer, Myocardial Infarction ([place]) Additional Family Medical History / Comment(s): in his 80's of a mi. Colon cancer. Mother Family Medical History: No Reported History Additional Family Medical History / Comment(s): age 88 . hx smoking. Daughter(s) Family Medical History: Cancer Additional Family Medical History / Comment(s): from vulvar cancer. General Exam General appearance: alert, in no apparent distress Head exam: Present: atraumatic, normocephalic Eye exam: Present: normal appearance. Absent: scleral icterus, conjunctival injection Neck exam: Present: normal inspection Respiratory exam: Present: wheezes, rales. Absent: respiratory distress, rhonchi, stridor, accessory muscle use Cardiovascular Exam: Present: irregular rhythm, systolic murmur. Absent: rubs, gallop GI/Abdominal exam: Present: soft. Absent: distended, tenderness, guarding, rebound, rigid, mass Extremities exam: Present: normal inspection, normal capillary refill, pedal edema. Absent: calf tenderness Back exam: Present: normal inspection. Absent: CVA tenderness (R), CVA tenderness (L) Neurological exam: Present: alert Skin exam: Present: warm, dry, intact, normal color. Absent: rash Course Vital Signs 08/23/23 08/23/23 08/23/23 03:42 06:58 07:40 Temperature 97.6 F 97.9 F Pulse Rate 73 69 Pulse Rate [ Right Pulse Oximetery] Respiratory 18 18 Rate Blood Pressure 116/78 109/70 Blood Pressure [Right Arm] O2 Sat by Pulse 96 99 Oximetry 08/23/23 08/23/23 08/23/23 08:00 08:06 08:22 Temperature 97.9 F 97.5 F L Pulse Rate 81 Pulse Rate [ 73 73 Right Pulse Oximetery] Respiratory 17 16 17 Rate Blood Pressure 138/78 Blood Pressure 127/82 [Right Arm] O2 Sat by Pulse 98 98 Oximetry 08/23/23 08:26 Temperature Pulse Rate Pulse Rate [ Right Pulse Oximetery] Respiratory Rate Blood Pressure Blood Pressure [Right Arm] O2 Sat by Pulse 97 Oximetry Medical Decision Making - Medical Decision Making The patient had chest x-ray which I interpreted to show pulmonary vascular co ngestion, no evident infiltrate or pneumothorax. The patient had CT angiogram of the chest which I interpreted to show degree of congestive heart failure, no pulmonary embolism Was pt. sent in by a medical professional or institution ([facility], [facility], urgent care, hospital, or penitentiary...) When possible be specific @ -[No] Did you speak to anyone other than the patient for history (EMS, parent, family, police, friend...)? What history was obtained from this source @ -[No] Did you review nursing and triage notes (agree or disagree)? Why? @ -[I reviewed and agree with nursing and triage notes] Were old charts reviewed (outside hosp., previous admission, EMS record, old EKG, old radiological studies, urgent care reports/EKG's, penitentiary records)? Report findings @ -[No old charts were reviewed] Differential Diagnosis (chest pain, altered mental status, abdominal pain women, abdominal pain men, vaginal bleeding, weakness, fever, dyspnea, syncope, headache, dizziness, GI bleed, back pain, seizure, CVA, palpatations, mental health, musculoskeletal)? @ -[Differential Dyspnea: Coronary syndrome, arrhythmia, tamponade, asthma, COPD, pulmonary embolism, pneumonia, pneumothorax, pulmonary effusion, anaphylaxis, diabetic ketoacidosis, flailed chest, pulmonary contusion, diaphragmatic rupture, anemia, neuromuscular, this is not meant to be an all-inclusive list. EKG interpreted by me (3pts min.). @ -[I interpreted As above] X-rays interpreted by me (1pt min.). @ -[I interpreted as above CT interpreted by me (1pt min.). @ -[[I interpreted as above U/S interpreted by me (1pt. min.). @ -[None done] What testing was considered but not performed or refused? (CT, X-rays, U/S, labs)? Why? @ -[None] What meds were considered but not given or refused? Why? @ -[None] Did you discuss the management of the patient with other professionals (luigi michel i.e. , PA, [facility], lab, RT, psych nurse, psychosocial rehabilitation counselor, crew member, teacher, protection officer, correctional counselor/case manager)? Give summary @ -[Case discussed with admitting physician and treatment recommendations are incorporated Was smoking cessation discussed for >3mins.? @ -[No] Was critical care preformed (if so, how long)? @ -[No] Were there social determinants of health that impacted care today? How? (Homelessness, low income, unemployed, alcoholism, drug addiction, transportation, low edu. Level, literacy, decrease access to med. care, intermediate, rehab)? @ -[No] Was there de-escalation of care discussed even if they declined (Discuss DNR or withdrawal of care, Hospice)? DNR status @ -[No] What co-morbidities impacted this encounter? (DM, HTN, Smoking, COPD, CAD, Cancer, CVA, ARF, Chemo, Hep., AIDS, mental health diagnosis, sleep apnea, morbid obesity)? @ -[COPD, congestive heart failure, atrial fibrillation Was patient admitted / discharged? Hospital course, mention meds given and route, prescriptions, significant lab abnormalities, going to OR and other pertinent info. @ -[Patient is an 78-year-old woman presenting with dyspnea. There is multifac torial dyspnea including element of COPD and congestive heart failure. Undiagnosed new problem with uncertain prognosis? @ -[No] Drug Therapy requiring intensive monitoring for toxicity (Heparin, Nitro, Insulin, Cardizem)? @ -[No] Were any procedures done? @ -[No] Diagnosis/symptom? @ -[Multifactorial dyspnea CHF exacerbation Atrial flutter Elevated d-dimer Mild anemia Acute, or Chronic, or Acute on Chronic? @ -[Acute dyspnea Acute exacerbation of chronic congestive heart failure Chronic atrial flutter Uncomplicated (without systemic symptoms) or Complicated (systemic symptoms)? @ -[Conditions or complicated by dyspnea Side effects of treatment? @ -[No] Exacerbation, Progression, or Severe Exacerbation? @ -[Exacerbation Poses a threat to life or bodily function? How? (Chest pain, USA, PR, pneumonia, PE, COPD, DKA, ARF, appy, cholecystitis, CVA, Diverticulitis, Homicidal, Suicidal, threat to staff... and all critical care pts) @ -[Yes, untreated congestive heart failure will progress to respiratory failure/that - Lab Data Result diagrams: 08/27/23 05:08 08/27/23 05:08 Lab Results 08/23/23 08/23/23 08/23/23 Range/Units 04:40 04:40 04:40 WBC 8.4 (3.8-10.6) k/uL RBC 3.50 L (3.80-5.40) m/uL Hgb 10.1 L (11.4-16.0) gm/dL Hct 34.2 (34.0-46.0) % MCV 97.7 (80.0-100.0) fL MCH 28.8 (25.0-35.0) pg MCHC 29.4 L (31.0-37.0) g/dL RDW 15.7 H (11.5-15.5) % Plt Count 164 (150-450) k/uL MPV 8.8 Neutrophils % 77 % Lymphocytes % 13 % Monocytes % 5 % Eosinophils % 2 % Basophils % 1 % Neutrophils # 6.5 (1.3-7.7) k/uL Lymphocytes # 1.1 (1.0-4.8) k/uL Monocytes # 0.4 (0-1.0) k/uL Eosinophils # 0.1 (0-0.7) k/uL Basophils # 0.0 (0-0.2) k/uL Hypochromasia Marked PT 18.8 H (10.0-12.5) sec INR 1.9 H (<1.2) APTT 28.1 (22.0-30.0) sec D-Dimer 1.79 H (<0.60) mg/L FEU VBG pH (7.31-7.41) VBG pCO2 (37-51) mmHg VBG HCO3 (24-28) mmol/L Sodium 140 (137-145) mmol/L Potassium 4.7 (3.5-5.1) mmol/L Chloride 107 (98-107) mmol/L Carbon Dioxide 22 (22-30) mmol/L Anion Gap 11 mmol/L BUN 27 H (7-17) mg/dL Creatinine 0.63 (0.52-1.04) mg/dL Est GFR (CKD-EPI)AfAm >90 (>60 ml/min/1.73 sqM) Est GFR (CKD-EPI)NonAf 85 (>60 ml/min/1.73 sqM) Glucose 134 H (74-99) mg/dL Plasma Lactic Acid Wilfred (0.7-2.0) mmol/L Calcium 8.9 (8.4-10.2) mg/dL Total Bilirubin 1.0 (0.2-1.3) mg/dL AST 46 H (14-36) U/L ALT 29 (4-34) U/L Alkaline Phosphatase 156 H (38-126) U/L Troponin I (0.000-0.034) ng/mL NT-Pro-B Natriuret Pep 7740 pg/mL Total Protein 6.8 (6.3-8.2) g/dL Albumin 3.6 (3.5-5.0) g/dL TSH (0.350-5.500) UIU/ML Free (T4) Reflex I (0.80-1.80) ng/dL 08/23/23 08/23/23 08/23/23 Range/Units 04:40 04:40 04:40 WBC (3.8-10.6) k/uL RBC (3.80-5.40) m/uL Hgb (11.4-16.0) gm/dL Hct (34.0-46.0) % MCV (80.0-100.0) fL MCH (25.0-35.0) pg MCHC (31.0-37.0) g/dL RDW (11.5-15.5) % Plt Count (150-450) k/uL MPV Neutrophils % % Lymphocytes % % Monocytes % % Eosinophils % % Basophils % % Neutrophils # (1.3-7.7) k/uL Lymphocytes # (1.0-4.8) k/uL Monocytes # (0-1.0) k/uL Eosinophils # (0-0.7) k/uL Basophils # (0-0.2) k/uL Hypochromasia PT (10.0-12.5) sec INR (<1.2) APTT (22.0-30.0) sec D-Dimer (<0.60) mg/L FEU VBG pH 7.36 (7.31-7.41) VBG pCO2 47 (37-51) mmHg VBG HCO3 27 (24-28) mmol/L Sodium (137-145) mmol/L Potassium (3.5-5.1) mmol/L Chloride (98-107) mmol/L Carbon Dioxide (22-30) mmol/L Anion Gap mmol/L BUN (7-17) mg/dL Creatinine (0.52-1.04) mg/dL Est GFR (CKD-EPI)AfAm (>60 ml/min/1.73 sqM) Est GFR (CKD-EPI)NonAf (>60 ml/min/1.73 sqM) Glucose (74-99) mg/dL Plasma Lactic Acid Wilfred 1.4 (0.7-2.0) mmol/L Calcium (8.4-10.2) mg/dL Total Bilirubin (0.2-1.3) mg/dL AST (14-36) U/L ALT (4-34) U/L Alkaline Phosphatase (38-126) U/L Troponin I <0.012 (0.000-0.034) ng/mL NT-Pro-B Natriuret Pep pg/mL Total Protein (6.3-8.2) g/dL Albumin (3.5-5.0) g/dL TSH (0.350-5.500) UIU/ML Free (T4) Reflex I (0.80-1.80) ng/dL 08/23/23 Range/Units 04:40 WBC (3.8-10.6) k/uL RBC (3.80-5.40) m/uL Hgb (11.4-16.0) gm/dL Hct (34.0-46.0) % MCV (80.0-100.0) fL MCH (25.0-35.0) pg MCHC (31.0-37.0) g/dL RDW (11.5-15.5) % Plt Count (150-450) k/uL MPV Neutrophils % % Lymphocytes % % Monocytes % % Eosinophils % % Basophils % % Neutrophils # (1.3-7.7) k/uL Lymphocytes # (1.0-4.8) k/uL Monocytes # (0-1.0) k/uL Eosinophils # (0-0.7) k/uL Basophils # (0-0.2) k/uL Hypochromasia PT (10.0-12.5) sec INR (<1.2) APTT (22.0-30.0) sec D-Dimer (<0.60) mg/L FEU VBG pH (7.31-7.41) VBG pCO2 (37-51) mmHg VBG HCO3 (24-28) mmol/L Sodium (137-145) mmol/L Potassium (3.5-5.1) mmol/L Chloride (98-107) mmol/L Carbon Dioxide (22-30) mmol/L Anion Gap mmol/L BUN (7-17) mg/dL Creatinine (0.52-1.04) mg/dL Est GFR (CKD-EPI)AfAm (>60 ml/min/1.73 sqM) Est GFR (CKD-EPI)NonAf (>60 ml/min/1.73 sqM) Glucose (74-99) mg/dL Plasma Lactic Acid Wilfred (0.7-2.0) mmol/L Calcium (8.4-10.2) mg/dL Total Bilirubin (0.2-1.3) mg/dL AST (14-36) U/L ALT (4-34) U/L Alkaline Phosphatase (38-126) U/L Troponin I (0.000-0.034) ng/mL NT-Pro-B Natriuret Pep pg/mL Total Protein (6.3-8.2) g/dL Albumin (3.5-5.0) g/dL TSH 21.500 H (0.350-5.500) UIU/ML Free (T4) Reflex I 1.26 (0.80-1.80) ng/dL - EKG Data -: EKG Interpreted by In EKG shows normal: axis (borderline right axis deviation), intervals (Normal) Interpretation: other (underlying rhythm is atrial flutter with a rate of 99 bpm) Disposition Clinical Impression: Congestive heart failure, COPD (chronic obstructive pulmonary disease), Atrial flutter Disposition: ADMITTED IP TO THIS HOSP Condition: Stable Is patient prescribed a controlled substance at d/c from ED?: No
[2023-08-23] MEDS ORDERED: ALBUTEROL NEBULIZED 2.5 MG/3 ML INHALATION PRN (07:47)
[2023-08-23] MEDS: SYMBICORT 80-4.5 MCG INHALER INHALATION SCH ×2 (08:24→21:19)
[2023-08-23] MEDS ORDERED: METOPROLOL TARTRATE 25 MG TAB PO SCH (09:00)
[2023-08-23] MEDS ORDERED: AMIODARONE 200 MG TAB PO SCH (09:00)
[2023-08-23] MEDS ORDERED: BUMETANIDE 1 MG TAB PO SCH (09:00)
[2023-08-23] MEDS: CHOLECALCIFEROL 125 MCG (5000 IU) TABLET PO SCH (09:51)
[2023-08-23] MEDS: LEVOTHYROXINE 137 MCG TAB PO SCH (09:51)
[2023-08-23] MEDS: SILDENAFIL 20 MG TAB PO SCH ×3 (09:51→21:03)
[2023-08-23] MEDS ORDERED: FUROSEMIDE 10 MG/ML 2 ML VIAL IV ONE (11:11)
--- NOTE | 2023-08-23 11:12 | P.HPIM ---
History of Present Illness H&P Date: 08/23/23 Mirella San, is an 78-year-old female who presented to [facility] emergency room with a chief complaint of worsening shortness of breath and cough. She was evaluated in the emergency room vital examination on presentation revealed a temperature of 97.6 pulse 73 respiration 18 blood pressure 116/78 pulse ox 96% on 4 L nasal cannula Laboratory data revealed a white blood count of 8.4 hemoglobin 10.1 platelet count 164 INR 1.9 d-dimer 1.79 sodium 140 potassium 4.7 chloride 107 CO2 22 BUN 27 creatinine 0.63 AST 46 alkaline phosphatase 156 BNP 7740 troponin less than 0.012 influenza A and B RSV and COVID-19 PCR are all negative. Testing in the emergency room revealed chest x-ray done in the emergency room revealed cardiomegaly with pulmonary vascular congestion and bilateral pleural effusion. CT angiogram of the chest done in the emergency room revealed no evidence of pulmonary embolism. Patient was admitted to medical floor for further evaluation and treatment Past medical history is significant for history of chronic systolic congestive heart failure, echocardiogram done on 06/28/2023 revealed left ventricular ejection fraction estimated at 30-35%, patient also had evidence of severe right ventricular diet agitation and severe pulmonary hypertension, patient has a known history of valvular heart disease with history of aortic valve replacement and history of mitral valve repair, she also has known history of paroxysmal atrial fibrillation maintained on Coumadin. On review of systems patient is alert and oriented 3 in no apparent distress, she is complaining of cough and shortness of breath, otherwise she denies any complaints there is no fever or chills no headache or dizziness no chest pain no nausea or vomiting no abdominal pain no diarrhea no blood in the stools no burning with urination no frequency or urgency and no hematuria, there is no weakness or numbness in any of the extremities there is no change in vision speech or gait. Past Medical History Past Medical History: Atrial Fibrillation, Heart Failure, COPD, GERD/Reflux, Osteoarthritis (OA), Renal Disease, Rheumatoid Arthritis (RA), Supraventricular Tachycardia (SVT), Thyroid Disorder Additional Past Medical History / Comment(s): Valvular heart disease with previous aortic valve replacement and a mitral valve repair, congestion heart failure, Paroxysmal Afib, history of SVT, history of nonsustained VT, SOB with exertion, home O2 at 2L/NC usually prn but lately ATC, arthritis, RA several joints, current L elbow pain/swelling-had "injection", nephrolithiasis, hypothyroid, diverticular dx, UTI, iron deficiency anemia. 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 History of Any Multi-Drug Resistant Organisms: None Reported Past Surgical History: Coronary Bypass/CABG, Heart Catheterization, Hysterectomy, Joint Replacement, Orthopedic Surgery Additional Past Surgical History / Comment(s): Geoff total knees arthroplasty,lt hip arthroplasty, goiter removed 1962, partial thyroidectomy, cataracts removed with lens implants, REVERSE TOTAL RIGHT SHOULDER; Rotator cuff R shoulder, cervical fusion/injections, colonoscopy 2016(next after 5yr), MATTHEW, valve surgery at [facility] 10/13/17 Prosthetic Aortic valve and mitral valve repair. Total abdominal hysterectomy in the 1980s. Past Anesthesia/Blood Transfusion Reactions: Postoperative Nausea & Vomiting (PONV) Past Psychological History: No Psychological Hx Reported Additional Psychological History / Comment(s): Pt resides with her spouse in an apartment with no stairs. She used to drive but not since valve surgery. Her spouse is helpful and able to drive her to appts. She has home oxygen. She uses a walker to ambulate and has a cane. She also has a scale and B/P monitor. She has used VMA in the recent past. Smoking Status: Former smoker Past Alcohol Use History: Occasional Additional Past Alcohol Use History / Comment(s): She used to drink 2 glasses of wine per week but hasn't for months, quit smoking @age of 43, smoked 1ppd for 30 yrs. Past Drug Use History: None Reported - Past Family History Father Family Medical History: Cancer, Myocardial Infarction ([place]) Additional Family Medical History / Comment(s): in his 80's of a mi. Colon cancer. Mother Family Medical History: No Reported History Additional Family Medical History / Comment(s): age 88 . hx smoking. Daughter(s) Family Medical History: Cancer Additional Family Medical History / Comment(s): from vulvar cancer. Medications and Allergies Home Medications Medication Instructions Recorded Confirmed Type Albuterol Sulfate [Proair Hfa] 2 puff INHALATION RT-Q6H PRN 07/28/19 07/27/23 History Ascorbic Acid [Vitamin C] 500 mg PO DAILY 05/08/21 07/27/23 History Cholecalciferol (Vitamin D3) 125 mcg PO DAILY 06/06/22 07/27/23 History [Vitamin D3 (125 MCG = 5,000 IU)] Ipratropium-Albuterol Nebulize 3 ml INHALATION RT-Q6H PRN 06/06/22 07/27/23 History [Duoneb 0.5 mg-3 mg/3 ml Soln] Levothyroxine Sodium [Synthroid] 137 mcg PO DAILY 30 Days #30 tab 06/08/2207/03 Rx Fluticasone Propion/Salmeterol 1 puff INHALATION RT-BID 06/07/23 07/27/23 History [Advair 100-50 Diskus] HYDROcodone/APAP 10-325MG [[place] 1 tab PO Q8H PRN 06/28/23 07/27/23 History 10-325] Potassium Chloride ER [K-Dur 20] 20 meq PO BID 90 Days #180 tab 07/02/23 07/27/23 Rx Sildenafil [Revatio] 20 mg PO TID 90 Days #30 tab 07/02/23 07/27/23 Rx Bumetanide [Bumex] 1 mg PO DAILY #90 tablet 07/31/23 Rx Amiodarone [Cordarone] 400 mg PO BID 30 Days #90 tab 08/01/23 Rx Metoprolol Tartrate [Lopressor] 25 mg PO BID 30 Days #60 tab 08/01/23 Rx Warfarin [Coumadin] 3 mg PO DAILY 30 Days #30 tab 08/01/23 Rx Allergies Allergy/AdvReac Type Severity Reaction Status Date / Time lisinopril Allergy Unknown Verified 07/27/23 11:07 Physical Exam Vitals: Vital Signs Temp Pulse Pulse Resp BP BP Pulse Ox 08/23/23 08:26 97 08/23/23 08:22 97.5 F L 73 17 127/82 98 08/23/23 08:06 97.9 F 81 16 138/78 98 08/23/23 07:40 97.9 F 08/23/23 06:58 69 18 109/70 99 08/23/23 03:42 97.6 F 73 18 116/78 96 Intake and Output 08/22/23 08/23/23 08/23/23 22:59 06:59 14:59 Other: Weight 47.627 kg In general patient is alert and oriented x 3 in no distress HEENT head normocephalic and atraumatic Neck is supple no JVD no goiter no lymphadenopathy no carotid bruit Chest examination reveals a scattered crackles in both lung rios no wheezing Cardiac exam reveals irregular heart sounds S1 and S2 no gallops, with 3/6 systolic murmur at the left sternal border Abdomen is soft nontender no organomegaly with normal bowel sounds Extremity exam reveals no edema no cyanosis or clubbing Neurological examination reveals no gross focal deficits Results CBC & Chem 7: 08/23/23 04:40 08/23/23 04:40 Labs: Abnormal Lab Results - Last 24 Hours (Table) 08/23/23 08/23/23 08/23/23 Range/Units 04:40 04:40 04:40 RBC 3.50 L (3.80-5.40) m/uL Hgb 10.1 L (11.4-16.0) gm/dL MCHC 29.4 L (31.0-37.0) g/dL RDW 15.7 H (11.5-15.5) % PT 18.8 H (10.0-12.5) sec INR 1.9 H (<1.2) D-Dimer 1.79 H (<0.60) mg/L FEU BUN 27 H (7-17) mg/dL Glucose 134 H (74-99) mg/dL AST 46 H (14-36) U/L Alkaline Phosphatase 156 H (38-126) U/L Assessment and Plan Plan: Acute exacerbation of congestive heart failure Chronic systolic congestive heart failure Elevated d-dimer, with negative CT angiogram of the chest Underlying history of paroxysmal atrial fibrillation maintained on Coumadin Underlying history of valvular heart disease, with history of aortic valve replacement, and mitral valve repair Underlying history of pulmonary hypertension Underlying history of COPD Underlying history of rheumatoid arthritis Underlying history of hypothyroidism Underlying history of chronic kidney disease At this time patient is admitted to telemetry floor Home medications reviewed and reordered A dose of IV Lasix was ordered Cardiology consultation was requested Will follow closely
[2023-08-23] MEDS ORDERED: FUROSEMIDE 10 MG/ML 4 ML VIAL IV STA (12:37)
--- NOTE | 2023-08-23 16:47 | P.CRDCN ---
History of Present Illness Consult date: 08/23/23 Consult reason: congestive heart failure History of present illness: The patient is an 78-year-old female who follows in the office with Dr. Flores. She presented to the emergency room with increased shortness of breath. Chest x-ray revealed pulmonary vascular congestion and bilateral pleural effusions. Her most recent echocardiogram did show reduced LV function with severe RV dilation and pulmonary hypertension. EKG shows atrial tachycardia/atrial flutter with heart rates in the high 90s. DIAGNOSTICS: EKG shows atrial flutter with heart rate of 99 and occasional PVCs Chest x-ray shows pulmonary vascular congestion and small bilateral pleural effusions Echocardiogram from June 2023 shows reduced LV function at 30-35% with RV dil ation and pulmonary hypertension Labs data: WBC 8.4, hemoglobin 10.1, hematocrit 34.2, platelet 164, d-dimer 1.79, sodium 140, potassium 4.7, BUN 27, creatinine 0.63, AST 46, ALT 2019, troponins negative 3, BNP 7000 REVIEW OF SYSTEMS: No fever or chills. No cough or expectoration. No diaphoresis. Patient denies headache, dizziness, blurred vision, double vision. Patient denies any stomach discomfort. No nausea, vomiting. No hematochezia. No hematemesis. Denies any black stools or blood in his stools. Denies dysuria or hematuria. No muscle weakness or numbness. PHYSICAL EXAMINATION: This is a 78-year-old female in no apparent distress at the time of my examination. Notably anxious. HEENT: Head is atraumatic, normocephalic. Pupils are equal, round. Sclerae anicteric. Conjunctivae are clear. Mucous membranes of the mouth are moist. Neck is supple. There is no jugular venous distention. No carotid bruit is heard. CHEST EXAMINATION: Lungs are diminished to auscultation. No chest wall tenderness is noted on palpation or with deep breathing. Fine crackles noted in the bases. HEART EXAMINATION: irregular rate and rhythm. S1, S2 heard. Systolic murmur. gallops or rub. ABDOMEN: Soft, nontender. Bowel sounds are heard. No organomegaly noted. EXTREMITIES: 2+ peripheral pulses with no evidence of peripheral edema and no calf tenderness noted. NEUROLOGIC EXAMINATION: Patient is awake, alert and oriented x3. FINAL ASSESSMENT AND PLAN: Atrial flutter, persistent Cardiomyopathy, EF 30-35% Congestive heart failure, systolic Pulmonary hypertension, on sildenafil PLAN: 1 time dose of IV Lasix stat Increase dose of Bumex to 2 mg daily Increase Lopressor for rate control Further recommendations based on clinical course I am dictating on behalf of Dr Hoang Styles's history/physical and assessment/plan. Past Medical History Past Medical History: Atrial Fibrillation, Heart Failure, COPD, GERD/Reflux, Osteoarthritis (OA), Renal Disease, Rheumatoid Arthritis (RA), Supraventricular Tachycardia (SVT), Thyroid Disorder Additional Past Medical History / Comment(s): Valvular heart disease with previous aortic valve replacement and a mitral valve repair, congestion heart failure, Paroxysmal Afib, history of SVT, history of nonsustained VT, SOB with exertion, home O2 at 2L/NC usually prn but lately ATC, arthritis, RA several joints, current L elbow pain/swelling-had "injection", nephrolithiasis, hypothyroid, diverticular dx, UTI, iron deficiency anemia. 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 History of Any Multi-Drug Resistant Organisms: None Reported Past Surgical History: Coronary Bypass/CABG, Heart Catheterization, Hysterectomy, Joint Replacement, Orthopedic Surgery Additional Past Surgical History / Comment(s): Geoff total knees arthroplasty,lt hip arthroplasty, goiter removed 1962, partial thyroidectomy, cataracts removed with lens implants, REVERSE TOTAL RIGHT SHOULDER; Rotator cuff R shoulder, cervical fusion/injections, colonoscopy 2016(next after 5yr), MATTHEW, valve surgery at [facility] 10/13/17 Prosthetic Aortic valve and mitral valve repair. Total abdominal hysterectomy in the . Past Anesthesia/Blood Transfusion Reactions: Postoperative Nausea & Vomiting (PONV) Past Psychological History: No Psychological Hx Reported Additional Psychological History / Comment(s): Pt resides with her spouse in an apartment with no stairs. She used to drive but not since valve surgery. Her spouse is helpful and able to drive her to appts. She has home oxygen. She uses a walker to ambulate and has a cane. She also has a scale and B/P monitor. She has used VMA in the recent past. Smoking Status: Former smoker Past Alcohol Use History: Occasional Additional Past Alcohol Use History / Comment(s): She used to drink 2 glasses of wine per week but hasn't for months, quit smoking @age of 43, smoked 1ppd for 30 yrs. Past Drug Use History: None Reported - Past Family History Father Family Medical History: Cancer, Myocardial Infarction (AR) Additional Family Medical History / Comment(s): in his 80's of a mi. Colon cancer. Mother Family Medical History: No Reported History Additional Family Medical History / Comment(s): age 88 . hx smoking. Daughter(s) Family Medical History: Cancer Additional Family Medical History / Comment(s): from vulvar cancer. Medications and Allergies Home Medications Medication Instructions Recorded Confirmed Type Albuterol Sulfate [Proair Hfa] 2 puff INHALATION RT-Q6H PRN 07/28/19 08/23/23 History Ascorbic Acid [Vitamin C] 500 mg PO DAILY 05/08/21 08/23/23 History Cholecalciferol (Vitamin D3) 125 mcg PO DAILY 06/06/22 08/23/23 History [Vitamin D3 (125 MCG = 5,000 IU)] Ipratropium-Albuterol Nebulize 3 ml INHALATION RT-Q6H PRN 06/06/22 08/23/23 History [Duoneb 0.5 mg-3 mg/3 ml Soln] Levothyroxine Sodium [Synthroid] 137 mcg PO DAILY 30 Days #30 tab 06/08/22 08/23/23 Rx Fluticasone Propion/Salmeterol 1 puff INHALATION RT-BID 06/07/23 08/23/23 History [Advair 100-50 Diskus] HYDROcodone/APAP 10-325MG [Casselberry 1 tab PO Q8H PRN 06/28/23 08/23/23 History 10-325] Potassium Chloride ER [K-Dur 20] 20 meq PO BID 90 Days #180 tab 07/02/23 08/23/23 Rx Sildenafil [Revatio] 20 mg PO TID 90 Days #30 tab 07/02/23 08/23/23 Rx Metoprolol Tartrate [Lopressor] 25 mg PO BID 30 Days #60 tab 08/01/23 08/23/23 Rx Amiodarone [Cordarone] 200 mg PO DAILY 08/23/23 08/23/23 History Furosemide [Lasix] 40 mg PO DAILY 08/23/23 08/23/23 History Warfarin [Coumadin] 2.5 mg PO HS 08/23/23 08/23/23 History Allergies Allergy/AdvReac Type Severity Reaction Status Date / Time lisinopril Allergy Unknown Verified 07/27/23 11:07 Physical Exam Vitals: Vital Signs Temp Pulse Pulse Resp BP BP Pulse Ox 08/23/23 14:10 98.2 F 72 18 89/59 95 08/23/23 08:26 97 08/23/23 08:22 97.5 F L 73 17 127/82 98 08/23/23 08:06 97.9 F 81 16 138/78 98 08/23/23 08:00 73 17 08/23/23 07:40 97.9 F 08/23/23 06:58 69 18 109/70 99 08/23/23 03:42 97.6 F 73 18 116/78 96 Intake and Output 08/23/23 08/23/23 08/23/23 06:59 14:59 22:59 Other: Weight 47.627 kg 47.627 kg Results 08/23/23 04:40 08/23/23 04:40 Cardiac Enzymes 08/23/23 08/23/23 08/23/23 Range/Units 04:40 04:40 07:38 AST 46 H (14-36) U/L Troponin I <0.012 <0.012 (0.000-0.034) ng/mL 08/23/23 Range/Units 09:44 AST (14-36) U/L Troponin I <0.012 (0.000-0.034) ng/mL Coagulation 08/23/23 Range/Units 04:40 PT 18.8 H (10.0-12.5) sec APTT 28.1 (22.0-30.0) sec CBC 08/23/23 Range/Units 04:40 WBC 8.4 (3.8-10.6) k/uL RBC 3.50 L (3.80-5.40) m/uL Hgb 10.1 L (11.4-16.0) gm/dL Hct 34.2 (34.0-46.0) % Plt Count 164 (150-450) k/uL Comprehensive Metabolic Panel 08/23/23 Range/Units 04:40 Sodium 140 (137-145) mmol/L Potassium 4.7 (3.5-5.1) mmol/L Chloride 107 (98-107) mmol/L Carbon Dioxide 22 (22-30) mmol/L BUN 27 H (7-17) mg/dL Creatinine 0.63 (0.52-1.04) mg/dL Glucose 134 H (74-99) mg/dL Calcium 8.9 (8.4-10.2) mg/dL AST 46 H (14-36) U/L ALT 29 (4-34) U/L Alkaline Phosphatase 156 H (38-126) U/L Total Protein 6.8 (6.3-8.2) g/dL Albumin 3.6 (3.5-5.0) g/dL Current Medications Generic Name Dose Route Start Last Admin Trade Name Freq PRN Reason Stop Dose Admin Hydrocodone Bitart/Acetaminophen 1 each 08/23/23 07:47 Hydrocodone/Apap 10-325mg 1 Each Tab PO Q8H PRN Pain Albuterol Sulfate 2.5 mg 08/23/23 07:47 Albuterol Nebulized 2.5 Mg/3 Ml INHALATION RT-Q6H PRN Shortness Of Breath Albuterol/Ipratropium 3 ml 08/23/23 07:47 Ipratropium-Albuterol 3 Ml Neb INHALATION RT-Q6H PRN Shortness Of Breath Budesonide/Formoterol Fumarate 2 puff 08/23/23 08:00 08/23/23 08:24 Symbicort 80-4.5 Mcg Inhaler INHALATION 2 puff RT-BID CARLOS Administration Bumetanide 2 mg 08/24/23 09:00 Bumetanide 1 Mg Tab PO DAILY CARLOS Cholecalciferol 125 mcg 08/23/23 09:00 08/23/23 09:51 Cholecalciferol 125 Mcg (5000 Iu) Tablet PO 125 mcg DAILY CARLOS Administration Levothyroxine Sodium 137 mcg 08/23/23 09:00 08/23/23 09:51 Levothyroxine 137 Mcg Tab PO 137 mcg 0630 CARLOS Administration Metoprolol Tartrate 50 mg 08/23/23 21:00 Metoprolol Tartrate 50 Mg Tab PO BID [facility] Miscellaneous Information 0 each 08/23/23 07:55 Warfarin Per Pharmacy MISCELLANE DIRECTED PRN INR Sildenafil Citrate 20 mg 08/23/23 09:00 08/23/23 09:51 Sildenafil 20 Mg Tab PO 20 mg TID CARLOS Administration Warfarin Sodium 2.5 mg 08/23/23 21:00 Warfarin 2.5 Mg Tab PO 08/23/23 21:01 ONCE ONE Protocol Intake and Output 08/23/23 08/23/23 08/23/23 06:59 14:59 22:59 Other: Weight 47.627 kg 47.627 kg Patient Weight 08/24/23 06:59 Weight 47.627 kg 08/23/23 04:40 08/23/23 04:40
[2023-08-23] MEDS ORDERED: WARFARIN 2.5 MG TAB PO ONE (21:00)
[2023-08-23] MEDS: METOPROLOL TARTRATE 50 MG TAB PO SCH (21:03)
[2023-08-23] MEDS: HYDROcodone/APAP 10-325MG 1 EACH TAB PO PRN (21:04)
[2023-08-23] MEDS: IPRATROPIUM-ALBUTEROL 3 ML NEB INHALATION PRN (21:19)
[2023-08-24 04:37] LABS: INR 1.8 (<1.2); Prothrombin Time 18.1 sec (10.0-12.5)
[2023-08-24] MEDS: LEVOTHYROXINE 137 MCG TAB PO SCH (05:51)
[2023-08-24] MEDS: SYMBICORT 80-4.5 MCG INHALER INHALATION SCH ×2 (09:08→18:15)
--- NOTE | 2023-08-24 09:42 | P.PN ---
Subjective Progress Note Date: 08/24/23 Mirella San, is an 78-year-old female who presented to [facility] emergency room with a chief complaint of worsening shortness of breath and cough. She was evaluated in the emergency room vital examination on presentation revealed a temperature of 97.6 pulse 73 respiration 18 blood pressure 116/78 pulse ox 96% on 4 L nasal cannula Laboratory data revealed a white blood count of 8.4 hemoglobin 10.1 platelet count 164 INR 1.9 d-dimer 1.79 sodium 140 potassium 4.7 chloride 107 CO2 22 BUN 27 creatinine 0.63 AST 46 alkaline phosphatase 156 BNP 7740 troponin less than 0.012 influenza A and B RSV and COVID-19 PCR are all negative. Testing in the emergency room revealed chest x-ray done in the emergency room revealed cardiomegaly with pulmonary vascular congestion and bilateral pleural effusion. CT angiogram of the chest done in the emergency room revealed no evidence of pulmonary embolism. Patient was admitted to medical floor for further evaluation and treatment Past medical history is significant for history of chronic systolic congestive heart failure, echocardiogram done on 06/28/2023 revealed left ventricular ejection fraction estimated at 30-35%, patient also had evidence of severe right ventricular diet agitation and severe pulmonary hypertension, patient has a know n history of valvular heart disease with history of aortic valve replacement and history of mitral valve repair, she also has known history of paroxysmal atrial fibrillation maintained on Coumadin. On review of systems patient is alert and oriented 3 in no apparent distress, she is complaining of cough and shortness of breath, otherwise she denies any complaints there is no fever or chills no headache or dizziness no chest pain no nausea or vomiting no abdominal pain no diarrhea no blood in the stools no burning with urination no frequency or urgency and no hematuria, there is no weakness or numbness in any of the extremities there is no change in vision speech or gait. On 08/24/2023 patient is alert and oriented 3. Patient having some increased shortness of breath respiratory services at bedside for breathing treatment. Patient's Bumex dose has been increased per cardiology. Current vital signs of 97.4, heart rate 64, respiratory rate 20, blood pressure 111/72 with pulse ox 94% on 3 L Objective - Vital Signs Vital signs: Vital Signs Temp 97.4 F L 08/24/23 01:47 Pulse 53 L 08/24/23 06:51 Resp 20 08/24/23 06:51 BP 111/72 08/24/23 06:51 Pulse Ox 98 08/24/23 09:10 FiO2 Intake & Output 08/23/23 08/24/23 08/24/23 18:59 06:59 18:59 Intake Total 475 Balance 475 Weight 50.9 kg Intake: Oral 475 Other: Voiding Method Bedside Commode # Voids 4 1 - Exam In general patient is alert and oriented x 3 in no distress HEENT head normocephalic and atraumatic Neck is supple no JVD no goiter no lymphadenopathy no carotid bruit Chest examination reveals a scattered crackles in both lung rios no wheezing Cardiac exam reveals irregular heart sounds S1 and S2 no gallops, with 3/6 systolic murmur at the left sternal border Abdomen is soft nontender no organomegaly with normal bowel sounds Extremity exam reveals no edema no cyanosis or clubbing Neurological examination reveals no gross focal deficits - Labs CBC & Chem 7: 08/23/23 04:40 08/23/23 04:40 Labs: Abnormal Lab Results - Last 24 Hours (Table) 08/23/23 08/24/23 Range/Units 04:40 03:49 PT 18.1 H (10.0-12.5) sec INR 1.8 H (<1.2) TSH 21.500 H (0.350-5.500) UIU/ML Assessment and Plan Plan: Acute exacerbation of congestive heart failure Chronic systolic congestive heart failure Elevated d-dimer, with negative CT angiogram of the chest Underlying history of paroxysmal atrial fibrillation maintained on Coumadin Underlying history of valvular heart disease, with history of aortic valve replacement, and mitral valve repair Underlying history of pulmonary hypertension Underlying history of COPD Underlying history of rheumatoid arthritis Underlying history of hypothyroidism Underlying history of chronic kidney disease At this time patient is admitted to telemetry floor Home medications reviewed and reordered A dose of IV Lasix was ordered Cardiology consultation was requested Will follow closely
[2023-08-24] MEDS: METOPROLOL TARTRATE 50 MG TAB PO SCH ×2 (09:47→21:27)
[2023-08-24] MEDS: BUMETANIDE 1 MG TAB PO SCH (09:50)
[2023-08-24] MEDS: CHOLECALCIFEROL 125 MCG (5000 IU) TABLET PO SCH (09:50)
[2023-08-24] MEDS: SILDENAFIL 20 MG TAB PO SCH ×3 (09:50→21:27)
--- NOTE | 2023-08-24 11:57 | P.PN ---
Subjective Progress Note Date: 08/24/23 The patient is an 78-year-old female who is currently admitted to the hospital with congestive heart failure exacerbation and atrial flutter. Patient was given IV diuresis and oral dosing of Bumex has been increased. Amiodarone was discontinued as she remains in atrial flutter. The patient states her breathing has improved slightly over the last 24 hours. She denies any chest pain or chest pressure. She denies any dizziness or lightheadedness, however the patient has not been ambulating out of the bed. GENERAL: Well-appearing, well-nourished and in no acute distress. NECK: Supple without JVD or thyromegaly. LUNGS: Breath sounds diminished to auscultation bilaterally. Respiration equal and unlabored. No wheezes, rales or rhonchi. HEART: Irregular rate and rhythm. Systolic ejection murmur. S1 and S2 heard. EXTREMITIES: Normal range of motion, no edema. No clubbing or cyanosis. Peripheral pulses intact and strong. TELEMETRY: Rate controlled atrial flutter LABS: TSH 21.5 IMPRESSION: Atrial flutter, persistent Failed amiodarone therapy Cardiomyopathy, EF 30-35% Congestive heart failure, systolic Pulmonary hypertension, on sildenafil Hypothyroidism, management per primary team PLAN: Continue current medical treatment Low-sodium diet Encourage ambulation and pulmonary hygiene I am dictating on behalf of Dr Hoang Styles's history/physical and assessment/plan. Objective - Vital Signs Vital signs: Vital Signs Temp 97.4 F L 08/24/23 01:47 Pulse 52 L 08/24/23 07:40 Resp 20 08/24/23 06:51 BP 111/72 08/24/23 06:51 Pulse Ox 98 08/24/23 09:10 FiO2 Intake & Output 08/23/23 08/24/23 08/24/23 18:59 06:59 18:59 Intake Total 475 Balance 475 Weight 50.9 kg Intake: Oral 475 Other: Voiding Method Bedside Commode Bedside Commode # Voids 4 1 - Labs CBC & Chem 7: 08/23/23 04:40 08/23/23 04:40 Labs: Abnormal Lab Results - Last 24 Hours (Table) 08/23/23 08/24/23 Range/Units 04:40 03:49 PT 18.1 H (10.0-12.5) sec INR 1.8 H (<1.2) TSH 21.500 H (0.350-5.500) UIU/ML
[2023-08-24 16:17] VITALS: BMI 21.9
[2023-08-24] MEDS ORDERED: WARFARIN 3 MG TAB PO ONE (18:00)
[2023-08-24] MEDS: HYDROcodone/APAP 10-325MG 1 EACH TAB PO PRN (21:28)
[2023-08-25] MEDS: IPRATROPIUM-ALBUTEROL 3 ML NEB INHALATION PRN ×3 (04:15→18:09)
[2023-08-25] MEDS: LEVOTHYROXINE 75 MCG TAB PO SCH (05:36)
[2023-08-25 05:43] LABS: INR 1.7 (<1.2); Prothrombin Time 16.9 sec (10.0-12.5)
[2023-08-25] MEDS: METOPROLOL TARTRATE 50 MG TAB PO SCH ×2 (08:20→21:13)
[2023-08-25] MEDS: BUMETANIDE 1 MG TAB PO SCH (08:20)
[2023-08-25] MEDS: CHOLECALCIFEROL 125 MCG (5000 IU) TABLET PO SCH (08:21)
[2023-08-25] MEDS: SILDENAFIL 20 MG TAB PO SCH ×3 (08:21→22:16)
[2023-08-25 08:57] LABS: Basophils # (A) 0.05 X 10*3/uL (0.00-0.10); Basophils % (A) 0.6 %; Eosinophils # (A) 0.34 X 10*3/uL (0.04-0.35); Eosinophils % (A) 4.1 %; HCT 32.4 % (37.2-46.3); HGB 9.6 g/dL (12.0-15.0); Lymphocytes % (A) 25.5 %; MCH 28.7 pg (27.0-32.0); MCHC 29.6 g/dL (32.0-37.0); Mean Platelet Volume 10.5 FL (9.5-12.2); Monocytes # (A) 0.61 X 10*3/uL (0.20-1.00); Monocytes % (A) 7.4 %; NRBC Per 100 WBC 0 X 10*3/uL (0.00-0.01); Neutrophils # (A) 4.98 X 10*3/uL (1.80-7.70); Neutrophils % (A) 60.5 %; Platelet Count 207 X 10*3/uL (140-440); RBC 3.34 X 10*6/uL (4.10-5.20); RDW 15.9 % (11.5-14.5); WBC 8.24 X 10*3/uL (4.50-10.00)
[2023-08-25] MEDS: SYMBICORT 80-4.5 MCG INHALER INHALATION SCH ×2 (09:12→18:09)
[2023-08-25 09:17] LABS: ALT 21 U/L (8-44); AST 18 U/L (13-35); Albumin 3.5 g/dL (3.8-4.9); Albumin/Globulin Ratio 1.35 Ratio (1.60-3.17); Alkaline Phosphatase 120 U/L (41-126); BUN/Creat Ratio 25.45 Ratio (12.00-20.00); Calcium 8.9 mg/dL (8.7-10.3); Chloride 101 mmol/L (96-109); Globulin 2.6 g/dL (1.6-3.3); Glucose 147 mg/dL (70-110); Potassium 3.7 mmol/L (3.5-5.5); Sodium 141 mmol/L (135-145); Total Bilirubin 0.6 mg/dL (0.3-1.2); Total Protein 6.1 g/dL (6.2-8.2)
[2023-08-25] MEDS ORDERED: ENOXAPARIN 40 MG/0.4 ML SYRINGE SQ STA (10:46)
--- NOTE | 2023-08-25 12:08 | P.PN ---
Subjective Progress Note Date: 08/25/23 Mirella San, is an 78-year-old female who presented to [facility] emergency room with a chief complaint of worsening shortness of breath and cough. She was evaluated in the emergency room vital examination on presentation revealed a temperature of 97.6 pulse 73 respiration 18 blood pressure 116/78 pulse ox 96% on 4 L nasal cannula Laboratory data revealed a white blood count of 8.4 hemoglobin 10.1 platelet count 164 INR 1.9 d-dimer 1.79 sodium 140 potassium 4.7 chloride 107 CO2 22 BUN 27 creatinine 0.63 AST 46 alkaline phosphatase 156 BNP 7740 troponin less than 0.012 influenza A and B RSV and COVID-19 PCR are all negative. Testing in the emergency room revealed chest x-ray done in the emergency room revealed cardiomegaly with pulmonary vascular congestion and bilateral pleural effusion. CT angiogram of the chest done in the emergency room revealed no evidence of pulmonary embolism. Patient was admitted to medical floor for further evaluation and treatment Past medical history is significant for history of chronic systolic congestive heart failure, echocardiogram done on 06/28/2023 revealed left ventricular ejection fraction estimated at 30-35%, patient also had evidence of severe right ventricular diet agitation and severe pulmonary hypertension, patient has a know n history of valvular heart disease with history of aortic valve replacement and history of mitral valve repair, she also has known history of paroxysmal atrial fibrillation maintained on Coumadin. On review of systems patient is alert and oriented 3 in no apparent distress, she is complaining of cough and shortness of breath, otherwise she denies any complaints there is no fever or chills no headache or dizziness no chest pain no nausea or vomiting no abdominal pain no diarrhea no blood in the stools no burning with urination no frequency or urgency and no hematuria, there is no weakness or numbness in any of the extremities there is no change in vision speech or gait. On 08/24/2023 patient is alert and oriented 3. Patient having some increased shortness of breath respiratory services at bedside for breathing treatment. Patient's Bumex dose has been increased per cardiology. Current vital signs of 97.4, heart rate 64, respiratory rate 20, blood pressure 111/72 with pulse ox 94% on 3 L On 08/25/2023 patient was seen and examined on the medical floor she is alert and oriented 3 in no apparent distress she is still complaining of shortness of breath with any activity today she is complaining of increasing anxiety, otherwise she denies any complaints there is no fever or chills no headache or dizziness no chest pain no cough no nausea or vomiting no abdominal pain no diar jett and no urinary symptoms Objective - Vital Signs Vital signs: Vital Signs Temp 98.2 F 08/25/23 07:03 Pulse 67 08/25/23 08:24 Resp 17 08/25/23 08:24 BP 86/52 08/25/23 07:03 Pulse Ox 97 08/25/23 09:14 FiO2 Intake & Output 08/24/23 08/25/23 08/25/23 18:59 06:59 18:59 Intake Total 240 Balance 240 Weight 47.5 kg 48 kg Intake: Oral 240 Other: Voiding Method Bedside Commode Bedside Commode Bedside Commode # Voids 4 2 - Exam In general patient is alert and oriented x 3 in no distress HEENT head normocephalic and atraumatic Neck is supple no JVD no goiter no lymphadenopathy no carotid bruit Chest examination reveals a scattered crackles in both lung rios no wheezing Cardiac exam reveals irregular heart sounds S1 and S2 no gallops, with 3/6 systolic murmur at the left sternal border Abdomen is soft nontender no organomegaly with normal bowel sounds Extremity exam reveals no edema no cyanosis or clubbing Neurological examination reveals no gross focal deficits - Labs CBC & Chem 7: 08/25/23 04:51 08/25/23 04:51 Labs: Abnormal Lab Results - Last 24 Hours (Table) 08/25/23 08/25/23 08/25/23 Range/Units 04:51 04:51 04:51 RBC 3.34 L (4.10-5.20) X 10*6/uL Hgb 9.6 L (12.0-15.0) g/dL Hct 32.4 L (37.2-46.3) % MCHC 29.6 L (32.0-37.0) g/dL RDW 15.9 H (11.5-14.5) % Immature Gran # 0.16 H (0.00-0.04) X 10*3/uL PT 16.9 H (10.0-12.5) sec INR 1.7 H (<1.2) Anion Gap 13.00 H (4.00-12.00) mmol/L BUN 28.0 H (9.0-27.0) mg/dL Est GFR (CKD-EPI) 51 L (>=60) BUN/Creatinine Ratio 25.45 H (12.00-20.00) Ratio Glucose 147 H (70-110) mg/dL Total Protein 6.1 L (6.2-8.2) g/dL Albumin 3.5 L (3.8-4.9) g/dL Albumin/Globulin Ratio 1.35 L (1.60-3.17) Ratio Assessment and Plan Plan: Acute exacerbation of congestive heart failure Chronic systolic congestive heart failure Elevated d-dimer, with negative CT angiogram of the chest Underlying history of paroxysmal atrial fibrillation maintained on Coumadin Underlying history of valvular heart disease, with history of aortic valve replacement, and mitral valve repair Underlying history of pulmonary hypertension Underlying history of COPD Underlying history of rheumatoid arthritis Underlying history of hypothyroidism Underlying history of chronic kidney disease At this time patient is admitted to telemetry floor Home medications reviewed and reordered A dose of IV Lasix was ordered Cardiology consultation was requested Will follow closely
--- NOTE | 2023-08-25 14:06 | P.PN ---
Subjective Progress Note Date: 08/25/23 The patient is an 78-year-old female who is currently admitted to the hospital with congestive heart failure exacerbation and atrial flutter. Patient was given IV diuresis and oral dosing of Bumex has been increased. Amiodarone was discontinued as she remains in atrial flutter. Heart rates remained controlled on her current regimen. Overall the patient states her breathing has improved since her admission. She denies any chest pain or chest pressure. GENERAL: Well-appearing, well-nourished and in no acute distress. NECK: Supple without JVD or thyromegaly. LUNGS: Breath sounds diminished to auscultation bilaterally. Respiration equal and unlabored. No wheezes, rales or rhonchi. HEART: Irregular rate and rhythm. Systolic ejection murmur. S1 and S2 heard. EXTREMITIES: Normal range of motion, no edema. No clubbing or cyanosis. Peripheral pulses intact and strong. TELEMETRY: Rate controlled atrial flutter IMPRESSION: Atrial flutter, persistent Failed amiodarone therapy Cardiomyopathy, EF 30-35% Congestive heart failure, systolic Pulmonary hypertension, on sildenafil Hypothyroidism, management per primary team PLAN: One time Lovenox as the patient remains subtherapeutic on warfarin Pharmacy to dose Patient may be discharged when INR is between 2 and 3 Follow-up with primary guest experience manager Dr. Flores I am dictating on behalf of Dr Hoang Styles's history/physical and assessment/p shady. Objective - Vital Signs Vital signs: Vital Signs Temp 98.2 F 08/25/23 07:03 Pulse 67 08/25/23 12:41 Resp 17 08/25/23 08:24 BP 86/52 08/25/23 07:03 Pulse Ox 97 08/25/23 09:14 FiO2 Intake & Output 08/24/23 08/25/23 08/25/23 18:59 06:59 18:59 Intake Total 240 Balance 240 Weight 47.5 kg 48 kg Intake: Oral 240 Other: Voiding Method Bedside Commode Bedside Commode Bedside Commode # Voids 4 2 - Labs CBC & Chem 7: 08/25/23 04:51 08/25/23 04:51 Labs: Abnormal Lab Results - Last 24 Hours (Table) 08/25/23 08/25/23 08/25/23 Range/Units 04:51 04:51 04:51 RBC 3.34 L (4.10-5.20) X 10*6/uL Hgb 9.6 L (12.0-15.0) g/dL Hct 32.4 L (37.2-46.3) % MCHC 29.6 L (32.0-37.0) g/dL RDW 15.9 H (11.5-14.5) % Immature Gran # 0.16 H (0.00-0.04) X 10*3/uL PT 16.9 H (10.0-12.5) sec INR 1.7 H (<1.2) Anion Gap 13.00 H (4.00-12.00) mmol/L BUN 28.0 H (9.0-27.0) mg/dL Est GFR (CKD-EPI) 51 L (>=60) BUN/Creatinine Ratio 25.45 H (12.00-20.00) Ratio Glucose 147 H (70-110) mg/dL Total Protein 6.1 L (6.2-8.2) g/dL Albumin 3.5 L (3.8-4.9) g/dL Albumin/Globulin Ratio 1.35 L (1.60-3.17) Ratio
[2023-08-25] MEDS ORDERED: WARFARIN 3 MG TAB PO ONE (18:00)
[2023-08-26] MEDS: LEVOTHYROXINE 75 MCG TAB PO SCH (06:03)
[2023-08-26 07:11] LABS: INR 1.8 (<1.2); Prothrombin Time 18.1 sec (10.0-12.5)
[2023-08-26] MEDS: SYMBICORT 80-4.5 MCG INHALER INHALATION SCH ×2 (07:59→21:06)
[2023-08-26] MEDS: METOPROLOL TARTRATE 50 MG TAB PO SCH ×2 (08:07→20:01)
[2023-08-26] MEDS: SILDENAFIL 20 MG TAB PO SCH ×3 (08:07→21:19)
[2023-08-26] MEDS: BUMETANIDE 1 MG TAB PO SCH (08:07)
[2023-08-26] MEDS: CHOLECALCIFEROL 125 MCG (5000 IU) TABLET PO SCH (08:07)
--- NOTE | 2023-08-26 10:46 | P.PN ---
Subjective Progress Note Date: 08/26/23 Mirella San, is an 78-year-old female who presented to [facility] emergency room with a chief complaint of worsening shortness of breath and cough. She was evaluated in the emergency room vital examination on presentation revealed a temperature of 97.6 pulse 73 respiration 18 blood pressure 116/78 pulse ox 96% on 4 L nasal cannula Laboratory data revealed a white blood count of 8.4 hemoglobin 10.1 platelet count 164 INR 1.9 d-dimer 1.79 sodium 140 potassium 4.7 chloride 107 CO2 22 BUN 27 creatinine 0.63 AST 46 alkaline phosphatase 156 BNP 7740 troponin less than 0.012 influenza A and B RSV and COVID-19 PCR are all negative. Testing in the emergency room revealed chest x-ray done in the emergency room revealed cardiomegaly with pulmonary vascular congestion and bilateral pleural effusion. CT angiogram of the chest done in the emergency room revealed no evidence of pulmonary embolism. Patient was admitted to medical floor for further evaluation and treatment Past medical history is significant for history of chronic systolic congestive heart failure, echocardiogram done on 06/28/2023 revealed left ventricular ejection fraction estimated at 30-35%, patient also had evidence of severe right ventricular diet agitation and severe pulmonary hypertension, patient has a know n history of valvular heart disease with history of aortic valve replacement and history of mitral valve repair, she also has known history of paroxysmal atrial fibrillation maintained on Coumadin. On review of systems patient is alert and oriented 3 in no apparent distress, she is complaining of cough and shortness of breath, otherwise she denies any complaints there is no fever or chills no headache or dizziness no chest pain no nausea or vomiting no abdominal pain no diarrhea no blood in the stools no burning with urination no frequency or urgency and no hematuria, there is no weakness or numbness in any of the extremities there is no change in vision speech or gait. On 08/24/2023 patient is alert and oriented 3. Patient having some increased shortness of breath respiratory services at bedside for breathing treatment. Patient's Bumex dose has been increased per cardiology. Current vital signs of 97.4, heart rate 64, respiratory rate 20, blood pressure 111/72 with pulse ox 94% on 3 L On 08/25/2023 patient was seen and examined on the medical floor she is alert and oriented 3 in no apparent distress she is still complaining of shortness of breath with any activity today she is complaining of increasing anxiety, otherwise she denies any complaints there is no fever or chills no headache or dizziness no chest pain no cough no nausea or vomiting no abdominal pain no diar jett and no urinary symptoms On 08/26/2023 patient is alert and oriented 3. Patient still having some shortness breath. Remains on increased dose of Bumex. Awaiting therapeutic INR prior to discharge per cardiology. Current vital signs temp 98.1, heart rate 103, respiratory rate 17, blood pressure 111/74 with a pulse ox 100% on 3 L Objective - Vital Signs Vital signs: Vital Signs Temp 98.1 F 08/26/23 08:00 Pulse 103 H 08/26/23 09:22 Resp 17 08/26/23 09:22 BP 111/74 08/26/23 08:00 Pulse Ox 100 08/26/23 08:00 FiO2 Intake & Output 08/25/23 08/26/23 08/26/23 18:59 06:59 18:59 Other: Voiding Method Bedside Commode Bedside Commode Bedside Commode # Voids 1 4 - Exam In general patient is alert and oriented x 3 in no distress HEENT head normocephalic and atraumatic Neck is supple no JVD no goiter no lymphadenopathy no carotid bruit Chest examination reveals a scattered crackles in both lung rios no wheezing Cardiac exam reveals irregular heart sounds S1 and S2 no gallops, with 3/6 systolic murmur at the left sternal border Abdomen is soft nontender no organomegaly with normal bowel sounds Extremity exam reveals no edema no cyanosis or clubbing Neurological examination reveals no gross focal deficits - Labs CBC & Chem 7: 08/25/23 04:51 08/25/23 04:51 Labs: Abnormal Lab Results - Last 24 Hours (Table) 08/26/23 Range/Units 06:41 PT 18.1 H (10.0-12.5) sec INR 1.8 H (<1.2) Assessment and Plan Assessment: Acute exacerbation of congestive heart failure Chronic systolic congestive heart failure Elevated d-dimer, with negative CT angiogram of the chest Underlying history of paroxysmal atrial fibrillation maintained on Coumadin Underlying history of valvular heart disease, with history of aortic valve replacement, and mitral valve repair Underlying history of pulmonary hypertension Underlying history of COPD Underlying history of rheumatoid arthritis Underlying history of hypothyroidism Underlying history of chronic kidney disease At this time patient is admitted to telemetry floor Home medications reviewed and reordered A dose of IV Lasix was ordered Cardiology consultation was requested Will follow closely
--- NOTE | 2023-08-26 16:30 | P.PN ---
Subjective The patient is an 78-year-old female who is currently admitted to the hospital with congestive heart failure exacerbation and atrial flutter. Patient was given IV diuresis and oral dosing of Bumex has been increased. Amiodarone was discontinued as she remains in atrial flutter. Heart rates remained controlled on her current regimen. Overall the patient states her breathing has improved since her admission. She denies any chest pain or chest pressure. 08/26 Patient believe she is slowly getting better. No chest pain. Mild improved SOB. No edema. Not on telemetry however HR's 80- low 100's. Remains on Metoprolol and Amio. INR at 1.8. GENERAL: Well-appearing, well-nourished and in no acute distress. NECK: Supple without JVD or thyromegaly. LUNGS: Breath sounds diminished to auscultation bilaterally. Respiration equal and unlabored. No wheezes, rales or rhonchi. HEART: Irregular rate and rhythm. Systolic ejection murmur. S1 and S2 heard. EXTREMITIES: Normal range of motion, no edema. No clubbing or cyanosis. Peripheral pulses intact and strong. IMPRESSION: Atrial flutter, persistent Failed amiodarone therapy Cardiomyopathy, EF 30-35% Congestive heart failure, systolic Pulmonary hypertension, on sildenafil Hypothyroidism, management per primary team PLAN: Continnue Coumadin with goal INR between 2 and 3 Appears to be tolerating oral Bumex and near euvolemic Consider discontinuation of Amio if not pursuing a rhythm control approach however this may be discussed and determined on an outpt basis with primary fire suppression captain.l Objective - Vital Signs Vital signs: Vital Signs Temp 98.2 F 08/26/23 14:00 Pulse 84 08/26/23 14:00 Resp 18 08/26/23 14:00 BP 103/65 08/26/23 14:00 Pulse Ox 94 L 08/26/23 14:00 FiO2 Intake & Output 08/25/23 08/26/23 08/26/23 18:59 06:59 18:59 Intake Total 200 Balance 200 Intake: Oral 200 Other: Voiding Method Bedside Commode Bedside Commode Bedside Commode # Voids 1 4 2 # Bowel Movements 1 - Labs CBC & Chem 7: 08/25/23 04:51 08/25/23 04:51 Labs: Abnormal Lab Results - Last 24 Hours (Table) 08/26/23 Range/Units 06:41 PT 18.1 H (10.0-12.5) sec INR 1.8 H (<1.2)
[2023-08-26] MEDS ORDERED: WARFARIN 3 MG TAB PO ONE (18:00)
[2023-08-27 05:46] LABS: INR 1.9 (<1.2); Prothrombin Time 19.2 sec (10.0-12.5)
[2023-08-27] MEDS: LEVOTHYROXINE 75 MCG TAB PO SCH (06:04)
[2023-08-27] MEDS: CHOLECALCIFEROL 125 MCG (5000 IU) TABLET PO SCH (07:38)
[2023-08-27] MEDS: SILDENAFIL 20 MG TAB PO SCH (07:38)
[2023-08-27] MEDS: METOPROLOL TARTRATE 50 MG TAB PO SCH (07:38)
[2023-08-27] MEDS: BUMETANIDE 1 MG TAB PO SCH (07:38)
[2023-08-27 08:23] VITALS: BP 96/57; PULSE 66; RESP 20; TEMP 97.8
[2023-08-27 08:38] LABS: HGB 9.7 g/dL (12.0-15.0); MCH 29.2 pg (27.0-32.0); MCHC 30.3 g/dL (32.0-37.0); MCV 96.4 FL (80.0-97.0); Mean Platelet Volume 10.4 FL (9.5-12.2); NRBC Per 100 WBC 0 X 10*3/uL (0.00-0.01); Platelet Count 197 X 10*3/uL (140-440); RBC 3.32 X 10*6/uL (4.10-5.20); RDW 15.4 % (11.5-14.5); WBC 6.45 X 10*3/uL (4.50-10.00)
[2023-08-27 08:39] LABS: Basophils # (A) 0.04 X 10*3/uL (0.00-0.10); Basophils % (A) 0.6 %; Eosinophils # (A) 0.33 X 10*3/uL (0.04-0.35); Eosinophils % (A) 5.1 %; Lymphocytes # (A) 1.35 X 10*3/uL (0.90-5.00); Lymphocytes % (A) 20.9 %; Monocytes % (A) 9.3 %; Neutrophils # (A) 4.02 X 10*3/uL (1.80-7.70); Neutrophils % (A) 62.4 %
[2023-08-27 08:43] LABS: Blood Urea Nitrogen 22.4 mg/dL (9.0-27.0); Chloride 101 mmol/L (96-109); Glucose 93 mg/dL (70-110); Potassium 3.6 mmol/L (3.5-5.5); Sodium 141 mmol/L (135-145)
[2023-08-27 08:44] LABS: ALT 18 U/L (8-44); AST 15 U/L (13-35); Albumin 3.4 g/dL (3.8-4.9); Albumin/Globulin Ratio 1.36 Ratio (1.60-3.17); Alkaline Phosphatase 128 U/L (41-126); Calcium 8.8 mg/dL (8.7-10.3); Carbon Dioxide 30.8 mmol/L (21.6-31.8); Globulin 2.5 g/dL (1.6-3.3); Total Bilirubin 0.6 mg/dL (0.3-1.2); Total Protein 5.9 g/dL (6.2-8.2)
[2023-08-27] MEDS: SYMBICORT 80-4.5 MCG INHALER INHALATION SCH (09:40)
--- NOTE | 2023-08-27 10:58 | P.DS ---
Providers Date of admission: 08/23/23 07:01 Expected date of discharge: 08/27/23 Attending physician: Olya Olson Consults: 08/23/23 06:45 Consult Physician Routine Consulting Provider: Jesus Jordan Consult Reason/Comments: CHF excerbation Do you want consulting provider notified?: Yes Primary care physician: Olya Olson [facility] Course: Discharge diagnosis Acute exacerbation of congestive heart failure Chronic systolic congestive heart failure Elevated d-dimer, with negative CT angiogram of the chest Underlying history of paroxysmal atrial fibrillation maintained on Coumadin Underlying history of valvular heart disease, with history of aortic valve replacement, and mitral valve repair Underlying history of pulmonary hypertension Underlying history of COPD Underlying history of rheumatoid arthritis Underlying history of hypothyroidism Underlying history of chronic kidney disease Hospital course Mirella San, is an 78-year-old female who presented to [facility] emergency room with a chief complaint of worsening shortness of breath and cough. She was evaluated in the emergency room vital examination on presentation revealed a temperature of 97.6 pulse 73 respiration 18 blood pressure 116/78 pulse ox 96% on 4 L nasal cannula Laboratory data revealed a white blood count of 8.4 hemoglobin 10.1 platelet count 164 INR 1.9 d-dimer 1.79 sodium 140 potassium 4.7 chloride 107 CO2 22 BUN 27 creatinine 0.63 AST 46 alkaline phosphatase 156 BNP 7740 troponin less than 0.012 influenza A and B RSV and COVID-19 PCR are all negative. Testing in the emergency room revealed chest x-ray done in the emergency room revealed cardiomegaly with pulmonary vascular congestion and bilateral pleural effusion. CT angiogram of the chest done in the emergency room revealed no evidence of pulmonary embolism. Patient was admitted to medical floor for further evaluation and treatment Past medical history is significant for history of chronic systolic congestive heart failure, echocardiogram done on 06/28/2023 revealed left ventricular ejection fraction estimated at 30-35%, patient also had evidence of severe right ventricular diet agitation and severe pulmonary hypertension, patient has a known history of valvular heart disease with history of aortic valve replacement and history of mitral valve repair, she also has known history of paroxysmal atrial fibrillation maintained on Coumadin. On review of systems patient is alert and oriented 3 in no apparent distress, she is complaining of cough and shortness of breath, otherwise she denies any complaints there is no fever or chills no headache or dizziness no chest pain no nausea or vomiting no abdominal pain no diarrhea no blood in the stools no burning with urination no frequency or urgency and no hematuria, there is no weakness or numbness in any of the extremities there is no change in vision speech or gait. On 08/24/2023 patient is alert and oriented 3. Patient having some increased shortness of breath respiratory services at bedside for breathing treatment. Patient's Bumex dose has been increased per cardiology. Current vital signs of 97.4, heart rate 64, respiratory rate 20, blood pressure 111/72 with pulse ox 94% on 3 L On 08/25/2023 patient was seen and examined on the medical floor she is alert and oriented 3 in no apparent distress she is still complaining of shortness of breath with any activity today she is complaining of increasing anxiety, otherwise she denies any complaints there is no fever or chills no headache or dizziness no chest pain no cough no nausea or vomiting no abdominal pain no diarrhea and no urinary symptoms On 08/26/2023 patient is alert and oriented 3. Patient still having some shortness breath. Remains on increased dose of Bumex. Awaiting therapeutic INR prior to discharge per cardiology. Current vital signs temp 98.1, heart rate 103, respiratory rate 17, blood pressure 111/74 with a pulse ox 100% on 3 L On 08/27/2023 patient is alert and oriented 3 currently sitting up in chair. INR today 1.9 patient will be DC'd discharged on 3 mg of Coumadin. Patient also discharged on new dose of Bumex Lasix DC'd. Medications adjusted per cardiology patient will follow up with cardiology services outpatient. Patient did work with PT OT cleared to return home. Patient denies chest pain or shortness of breath. Patient denies nausea vomiting or diarrhea. Patient denies any urinary burning or frequency Patient Condition at Discharge: Stable Plan - Discharge Summary Discharge Rx Participant: Yes New Discharge Prescriptions: New Levothyroxine Sodium [Synthroid] 150 mcg PO AC-BRKFST 30 Days #30 tablet Bumetanide [BUMEX] 2 mg PO DAILY 30 Days #60 tab Warfarin [Coumadin] 3 mg PO ONCE@1800 30 Days #30 tab Metoprolol Tartrate [Lopressor] 50 mg PO BID 30 Days #60 tab Continue Albuterol Sulfate [Proair Hfa] 2 puff INHALATION RT-Q6H PRN PRN Reason: Shortness Of Breath Ascorbic Acid [Vitamin C] 500 mg PO DAILY Cholecalciferol (Vitamin D3) [Vitamin D3 (125 MCG = 5,000 IU)] 125 mcg PO DAILY Ipratropium-Albuterol Nebulize [Duoneb 0.5 mg-3 mg/3 ml Soln] 3 ml INHALATION RT-Q6H PRN PRN Reason: Shortness Of Breath Fluticasone Propion/Salmeterol [Advair 100-50 Diskus] 1 puff INHALATION RT- BID HYDROcodone/APAP 10-325MG [[place] 10-325] 1 tab PO Q8H PRN PRN Reason: Pain Sildenafil [Revatio] 20 mg PO TID 90 Days #30 tab Discontinued Warfarin [Coumadin] 2.5 mg PO HS Levothyroxine Sodium [Synthroid] 137 mcg PO DAILY 30 Days #30 tab Potassium Chloride ER [K-Dur 20] 20 meq PO BID 90 Days #180 tab Metoprolol Tartrate [Lopressor] 25 mg PO BID 30 Days #60 tab Furosemide [Lasix] 40 mg PO DAILY Amiodarone [Cordarone] 200 mg PO DAILY Discharge Medication List Albuterol Sulfate [Proair Hfa] 2 puff INHALATION RT-Q6H PRN 07/28/19 [History] Ascorbic Acid [Vitamin C] 500 mg PO DAILY 05/08/21 [History] Cholecalciferol (Vitamin D3) [Vitamin D3 (125 MCG = 5,000 IU)] 125 mcg PO DAILY 06/06/22 [History] Ipratropium-Albuterol Nebulize [Duoneb 0.5 mg-3 mg/3 ml Soln] 3 ml INHALATION RT-Q6H PRN 06/06/22 [History] Fluticasone Propion/Salmeterol [Advair 100-50 Diskus] 1 puff INHALATION RT-BID 06/07/23 [History] HYDROcodone/APAP 10-325MG [[place] 10-325] 1 tab PO Q8H PRN 06/28/23 [History] Sildenafil [Revatio] 20 mg PO TID 90 Days #30 tab 07/02/23 [Rx] Bumetanide [BUMEX] 2 mg PO DAILY 30 Days #60 tab 08/27/23 [Rx] Levothyroxine Sodium [Synthroid] 150 mcg PO AC-BRKFST 30 Days #30 tablet 08/27/23 [Rx] Metoprolol Tartrate [Lopressor] 50 mg PO BID 30 Days #60 tab 08/27/23 [Rx] Warfarin [Coumadin] 3 mg PO ONCE@1800 30 Days #30 tab 08/27/23 [Rx] Follow up Appointment(s)/Referral(s): Alexx Flores MD [Family Provider] - 1 Week Olya Olson MD [Primary Care Provider] - 1 Week
--- NOTE | 2023-08-27 13:19 | P.PN ---
Subjective The patient is an 78-year-old female who is currently admitted to the hospital with congestive heart failure exacerbation and atrial flutter. Patient was given IV diuresis and oral dosing of Bumex has been increased. Amiodarone was discontinued as she remains in atrial flutter. Heart rates remained controlled on her current regimen. Overall the patient states her breathing has improved since her admission. She denies any chest pain or chest pressure. 08/26 Patient believe she is slowly getting better. No chest pain. Mild improved SOB. No edema. Not on telemetry however HR's 80- low 100's. Remains on Metoprolol and Amio. INR at 1.8. 08/27 Patient seen and examined. Patient denies any chest pain or pressure. Denies any significant lower extremity edema. INR 1.9 today GENERAL: Well-appearing, well-nourished and in no acute distress. NECK: Supple without JVD or thyromegaly. LUNGS: Breath sounds diminished to auscultation bilaterally. Respiration equal and unlabored. No wheezes, rales or rhonchi. HEART: Irregular rate and rhythm. Systolic ejection murmur. S1 and S2 heard. EXTREMITIES: Normal range of motion, no edema. No clubbing or cyanosis. Peripheral pulses intact and strong. IMPRESSION: Atrial flutter, persistent Failed amiodarone therapy Cardiomyopathy, EF 30-35% Congestive heart failure, systolic Pulmonary hypertension, on sildenafil Hypothyroidism, management per primary team PLAN: Continnue Coumadin with goal INR between 2 and 3 Appears to be tolerating oral Bumex and near euvolemic Consider discontinuation of Amio if not pursuing a rhythm control approach however this may be discussed and determined on an outpt basis with primary political analyst. Appears stable for discharge home with outpatient follow-up in 1 week. Objective - Vital Signs Vital signs: Vital Signs Temp 97.8 F 08/27/23 07:16 Pulse 66 08/27/23 07:16 Resp 20 08/27/23 07:16 BP 96/57 08/27/23 07:16 Pulse Ox 96 08/27/23 07:16 FiO2 Intake & Output 08/26/23 08/27/23 08/27/23 18:59 06:59 18:59 Intake Total 200 Balance 200 Weight 37.5 kg Intake: Oral 200 Other: Voiding Method Bedside Commode # Voids 5 1 # Bowel Movements 4 - Labs CBC & Chem 7: 08/27/23 05:08 08/27/23 05:08 Labs: Abnormal Lab Results - Last 24 Hours (Table) 08/27/23 08/27/23 08/27/23 Range/Units 05:08 05:08 05:08 RBC 3.32 L (4.10-5.20) X 10*6/uL Hgb 9.7 L (12.0-15.0) g/dL Hct 32.0 L (37.2-46.3) % MCHC 30.3 L (32.0-37.0) g/dL RDW 15.4 H (11.5-14.5) % Immature Gran # 0.11 H (0.00-0.04) X 10*3/uL PT 19.2 H (10.0-12.5) sec INR 1.9 H (<1.2) BUN/Creatinine Ratio 28.00 H (12.00-20.00) Ratio Alkaline Phosphatase 128 H (41-126) U/L Total Protein 5.9 L (6.2-8.2) g/dL Albumin 3.4 L (3.8-4.9) g/dL Albumin/Globulin Ratio 1.36 L (1.60-3.17) Ratio
[2023-08-27] MEDS ORDERED: WARFARIN 3 MG TAB PO ONE (18:00)
[2023-08-27] MEDS ORDERED: WARFARIN 0.5 MG TAB PO ONE (18:00)
== END 2023-08-27 14:13 | disposition home health service (06) | DRG 292 ==
LOC: EC 03:32 → 4SSUR 07:01
PROVIDERS: ADMIT Internal Medicine; ATTEND Internal Medicine
DX: I50.23 Acute on chronic systolic (congestive) heart failure (principal); I42.9 Cardiomyopathy, unspecified; I48.92 Unspecified atrial flutter; I47.19 Other supraventricular tachycardia; J44.9 Chronic obstructive pulmonary disease, unspecified; I27.20 Pulmonary hypertension, unspecified; R79.1 Abnormal coagulation profile; E89.0 Postprocedural hypothyroidism; I48.0 Paroxysmal atrial fibrillation; Z79.01 Long term (current) use of anticoagulants; Z99.81 Dependence on supplemental oxygen; F41.9 Anxiety disorder, unspecified; K21.9 Gastro-esophageal reflux disease without esophagitis; M19.90 Unspecified osteoarthritis, unspecified site; I25.10 Atherosclerotic heart disease of native coronary artery without angina pectoris; I49.3 Ventricular premature depolarization; M06.9 Rheumatoid arthritis, unspecified; N18.9 Chronic kidney disease, unspecified; Z95.1 Presence of aortocoronary bypass graft; Z95.2 Presence of prosthetic heart valve; Z79.890 Hormone replacement therapy; Z79.899 Other long term (current) drug therapy; Z82.49 Family history of ischemic heart disease and other diseases of the circulatory system; Z87.442 Personal history of urinary calculi; Z87.891 Personal history of nicotine dependence; Z96.642 Presence of left artificial hip joint; Z96.653 Presence of artificial knee joint, bilateral; Z96.611 Presence of right artificial shoulder joint; Z71.3 Dietary counseling and surveillance; Z87.440 Personal history of urinary (tract) infections; Z28.311 Partially vaccinated for COVID-19
CPT/HCPCS: 36415; 71046; 71275; 80053; 82803; 83605; 83880; 84439; 84443; 84484; 85025; 85379; 85610; 85730; 87636; 93005; 94640; 94760; 99285

== ENCOUNTER 2023-09-04 17:40 | Inpatient (IN) | payer MEDICARE, OTHER ==
[2023-09-04] MEDS ORDERED: DILTIAZEM DRIP BOLUS FROM BAG 1 MG SOLN IV ONE (18:07)
--- NOTE | 2023-09-04 18:22 | ED ---
General Adult HPI - General Chief complaint: Shortness of Breath Stated complaint: SOB Time Seen by Provider: 09/04/23 17:48 Source: patient, EMS, RN notes reviewed, old records reviewed Mode of arrival: EMS Limitations: no limitations - History of Present Illness Initial comments: 78 yo female presenting with increased dyspnea history of CHF and COPD. Patient also reports myalgia and generalized weakness. Symptoms have been present over the past several days. She does report cough but states this is mild. No central chest pain. No measured fever. - Related Data Home Medications Medication Instructions Recorded Confirmed Albuterol Sulfate [Proair Hfa] 2 puff INHALATION RT-Q6H PRN 07/28/19 08/23/23 Ascorbic Acid [Vitamin C] 500 mg PO DAILY 05/08/21 08/23/23 Cholecalciferol (Vitamin D3) 125 mcg PO DAILY 06/06/22 08/23/23 [Vitamin D3 (125 MCG = 5,000 IU)] Ipratropium-Albuterol Nebulize 3 ml INHALATION RT-Q6H PRN 06/06/22 08/23/23 [Duoneb 0.5 mg-3 mg/3 ml Soln] Fluticasone Propion/Salmeterol 1 puff INHALATION RT-BID 06/07/23 08/23/23 [Advair 100-50 Diskus] HYDROcodone/APAP 10-325MG [[place] 1 tab PO Q8H PRN 06/28/23 08/23/23 10-325] Previous Rx's Medication Instructions Recorded Sildenafil [Revatio] 20 mg PO TID 90 Days #30 tab 07/02/23 Bumetanide [BUMEX] 2 mg PO DAILY 30 Days #60 tab 08/27/23 Levothyroxine Sodium [Synthroid] 150 mcg PO AC-BRKFST 30 Days #30 08/27/23 tablet Metoprolol Tartrate [Lopressor] 50 mg PO BID 30 Days #60 tab 08/27/23 Warfarin [Coumadin] 3 mg PO ONCE@1800 30 Days #30 tab 08/27/23 Allergies Allergy/AdvReac Type Severity Reaction Status Date / Time lisinopril Allergy Unknown Verified 09/04/23 17:55 Review of Systems ROS Statement: Those systems with pertinent positive or pertinent negative responses have been documented in the HPI. ROS Other: All systems not noted in ROS Statement are negative. Past Medical History Past Medical History: Atrial Fibrillation, Heart Failure, COPD, GERD/Reflux, Osteoarthritis (OA), Renal Disease, Rheumatoid Arthritis (RA), Supraventricular Tachycardia (SVT), Thyroid Disorder Additional Past Medical History / Comment(s): Valvular heart disease with previous aortic valve replacement and a mitral valve repair, congestion heart failure, Paroxysmal Afib, history of SVT, history of nonsustained VT, SOB with exertion, home O2 at 2L/NC usually prn but lately ATC, arthritis, RA several joints, current L elbow pain/swelling-had "injection", nephrolithiasis, hypothyroid, diverticular dx, UTI, iron deficiency anemia. 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 History of Any Multi-Drug Resistant Organisms: None Reported Past Surgical History: Coronary Bypass/CABG, Heart Catheterization, Hysterectomy, Joint Replacement, Orthopedic Surgery Additional Past Surgical History / Comment(s): Geoff total knees arthroplasty,lt hip arthroplasty, goiter removed 1962, partial thyroidectomy, cataracts removed with lens implants, REVERSE TOTAL RIGHT SHOULDER; Rotator cuff R shoulder, cervical fusion/injections, colonoscopy 2016(next after 5yr), MATTHEW, valve surgery at [facility] 10/13/17 Prosthetic Aortic valve and mitral valve repair. Total abdominal hysterectomy in the 1980s. Past Anesthesia/Blood Transfusion Reactions: Postoperative Nausea & Vomiting (PONV) Past Psychological History: No Psychological Hx Reported Smoking Status: Former smoker Past Alcohol Use History: Occasional Past Drug Use History: None Reported - Past Family History Father Family Medical History: Cancer, Myocardial Infarction ([place]) Additional Family Medical History / Comment(s): in his 80's of a mi. Colon cancer. Mother Family Medical History: No Reported History Additional Family Medical History / Comment(s): age 88 . hx smoking. Daughter(s) Family Medical History: Cancer Additional Family Medical History / Comment(s): from vulvar cancer. General Exam Limitations: no limitations General appearance: alert, in no apparent distress Head exam: Present: atraumatic, normocephalic Eye exam: Present: normal appearance, PERRL ENT exam: Present: normal exam Neck exam: Present: normal inspection. Absent: tenderness, meningismus Respiratory exam: Present: decreased breath sounds. Absent: respiratory distress, wheezes Cardiovascular Exam: Present: normal rhythm, tachycardia GI/Abdominal exam: Present: soft. Absent: distended, tenderness, guarding Extremities exam: Present: pedal edema Neurological exam: Present: alert, oriented X3, CN II-XII intact. Absent: motor sensory deficit Psychiatric exam: Present: normal affect, normal mood Skin exam: Present: warm, dry, intact. Absent: cyanosis, diaphoretic Course Vital Signs 09/04/23 09/04/23 09/04/23 17:42 18:07 20:15 Temperature 97.6 F Pulse Rate 135 H 137 H 138 H Respiratory 22 20 16 Rate Blood Pressure 131/81 120/88 O2 Sat by Pulse 87 L 97 100 Oximetry Medical Decision Making - Medical Decision Making Was pt. sent in by a medical professional or institution (, PA, SEISMIC PROSPECTING OBSERVER, urgent care, hospital, or alf...) When possible be specific @ -No Did you speak to anyone other than the patient for history (EMS, parent, family, police, friend...)? What history was obtained from this source @ -No Did you review nursing and triage notes (agree or disagree)? Why? @ -I reviewed and agree with nursing and triage notes Were old charts reviewed (outside hosp., previous admission, EMS record, old EKG, old radiological studies, urgent care reports/EKG's, alf records)? Report findings @ -No old charts were reviewed Differential Diagnosis (chest pain, altered mental status, abdominal pain women, abdominal pain men, vaginal bleeding, weakness, fever, dyspnea, syncope, headache, dizziness, GI bleed, back pain, seizure, CVA, palpatations, mental health, musculoskeletal)? @ -Differential Palpitations Ventricular arrhythmias, atrial arrhythmias, myocardial infarction, anemia, thyrotoxicosis, electrolyte imbalance, hypokalemia, pulmonary embolism, pulmonary disease, drugs, alcohol, anxiety, stress.... This is not meant to be an all-inclusive list. EKG interpreted by me (3pts min.). @ -[EKG: Atrial flutter with RVR rate of 136, QRS duration 94, QTC 372, no ST segment elevation. X-rays interpreted by me (1pt min.). @ -[Chest x-ray showing acute CHF, cardiomegaly with pulmonary vascular congestion. CT interpreted by me (1pt min.). @ -None done U/S interpreted by me (1pt. min.). @ -None done What testing was considered but not performed or refused? (CT, X-rays, U/S, labs)? Why? @ -None What meds were considered but not given or refused? Why? @ -None Did you discuss the management of the patient with other professionals (professionals i.e. , PA, SEISMIC PROSPECTING OBSERVER, lab, RT, psych nurse, public health social worker, district sales manager, teacher, surveillance dual rate officer, major case detective)? Give summary @ -Dr. Oslon Was smoking cessation discussed for >3mins.? @ -No Was critical care preformed (if so, how long)? @ yes 35 min Were there social determinants of health that impacted care today? How? (Homelessness, low income, unemployed, alcoholism, drug addiction, transportation, low edu. Level, literacy, decrease access to med. care, detention, rehab)? @ -No Was there de-escalation of care discussed even if they declined (Discuss DNR or withdrawal of care, Hospice)? DNR status @ -No What co-morbidities impacted this encounter? (DM, HTN, Smoking, COPD, CAD, Cancer, CVA, ARF, Chemo, Hep., AIDS, mental health diagnosis, sleep apnea, morbid obesity)? @ -[Atrial fibrillation, CHF Was patient admitted / discharged? Hospital course, mention meds given and route, prescriptions, significant lab abnormalities, going to OR and other pertinent info. @ -78-year-old female presenting with increased shortness of breath, bilateral lower leg edema. Patient is found to be in atrial flutter with 2-1 conduction. No central chest pain. Troponin is negative. BNP is elevated at 4700. Chest x-ray consistent with CHF. Patient started on Cardizem and given IV diuresis in the emergency prompt. She will be admitted to a monitored bed with cardiology on consult. Undiagnosed new problem with uncertain prognosis? @ -No Drug Therapy requiring intensive monitoring for toxicity (Heparin, Nitro, Insulin, Cardizem)? @ -No Were any procedures done? @ -No Diagnosis/symptom? @ Atrial flutter with RVR, CHF Acute, or Chronic, or Acute on Chronic? @ -[acute Uncomplicated (without systemic symptoms) or Complicated (systemic symptoms)? @ -complicated Side effects of treatment? @ -No Exacerbation, Progression, or Severe Exacerbation? @ -No Poses a threat to life or bodily function? How? (Chest pain, [place], [place], pneumonia, PE, COPD, DKA, ARF, appy, cholecystitis, CVA, Diverticulitis, Homicidal, Suicidal, threat to staff... and all critical care pts) @ -[yes, CHF - Lab Data Result diagrams: 09/04/23 18:19 09/04/23 18:19 Lab Results 09/04/23 09/04/23 09/04/23 Range/Units 18:19 18:19 18:19 WBC 7.2 (3.8-10.6) k/uL RBC 3.76 L (3.80-5.40) m/uL Hgb 11.3 L (11.4-16.0) gm/dL Hct 35.4 (34.0-46.0) % MCV 94.0 (80.0-100.0) fL MCH 30.1 (25.0-35.0) pg MCHC 32.0 (31.0-37.0) g/dL RDW 15.3 (11.5-15.5) % Plt Count 150 (150-450) k/uL MPV 8.7 Neutrophils % 74 % Lymphocytes % 15 % Monocytes % 5 % Eosinophils % 2 % Basophils % 1 % Neutrophils # 5.3 (1.3-7.7) k/uL Lymphocytes # 1.1 (1.0-4.8) k/uL Monocytes # 0.4 (0-1.0) k/uL Eosinophils # 0.1 (0-0.7) k/uL Basophils # 0.0 (0-0.2) k/uL Hypochromasia Moderate PT 22.4 H (10.0-12.5) sec INR 2.2 H (<1.2) APTT 32.8 H (22.0-30.0) sec Sodium 141 (137-145) mmol/L Potassium 3.6 (3.5-5.1) mmol/L Chloride 105 (98-107) mmol/L Carbon Dioxide 25 (22-30) mmol/L Anion Gap 11 mmol/L BUN 15 (7-17) mg/dL Creatinine 0.49 L (0.52-1.04) mg/dL Est GFR (CKD-EPI)AfAm >90 (>60 ml/min/1.73 sqM) Est GFR (CKD-EPI)NonAf >90 (>60 ml/min/1.73 sqM) Glucose 122 H (74-99) mg/dL Calcium 8.7 (8.4-10.2) mg/dL Magnesium 2.0 (1.6-2.3) mg/dL Total Bilirubin 1.7 H (0.2-1.3) mg/dL AST 27 (14-36) U/L ALT 21 (4-34) U/L Alkaline Phosphatase 165 H (38-126) U/L Troponin I (0.000-0.034) ng/mL NT-Pro-B Natriuret Pep 4740 pg/mL Total Protein 7.4 (6.3-8.2) g/dL Albumin 3.9 (3.5-5.0) g/dL Influenza Type A (PCR) (Not Detectd) Influenza Type B (PCR) (Not Detectd) RSV (PCR) (Not Detectd) SARS-CoV-2 (PCR) (Not Detectd) 09/04/23 09/04/23 Range/Units 18:19 18:19 WBC (3.8-10.6) k/uL RBC (3.80-5.40) m/uL Hgb (11.4-16.0) gm/dL Hct (34.0-46.0) % MCV (80.0-100.0) fL MCH (25.0-35.0) pg MCHC (31.0-37.0) g/dL RDW (11.5-15.5) % Plt Count (150-450) k/uL MPV Neutrophils % % Lymphocytes % % Monocytes % % Eosinophils % % Basophils % % Neutrophils # (1.3-7.7) k/uL Lymphocytes # (1.0-4.8) k/uL Monocytes # (0-1.0) k/uL Eosinophils # (0-0.7) k/uL Basophils # (0-0.2) k/uL Hypochromasia PT (10.0-12.5) sec INR (<1.2) APTT (22.0-30.0) sec Sodium (137-145) mmol/L Potassium (3.5-5.1) mmol/L Chloride (98-107) mmol/L Carbon Dioxide (22-30) mmol/L Anion Gap mmol/L BUN (7-17) mg/dL Creatinine (0.52-1.04) mg/dL Est GFR (CKD-EPI)AfAm (>60 ml/min/1.73 sqM) Est GFR (CKD-EPI)NonAf (>60 ml/min/1.73 sqM) Glucose (74-99) mg/dL Calcium (8.4-10.2) mg/dL Magnesium (1.6-2.3) mg/dL Total Bilirubin (0.2-1.3) mg/dL AST (14-36) U/L ALT (4-34) U/L Alkaline Phosphatase (38-126) U/L Troponin I <0.012 (0.000-0.034) ng/mL NT-Pro-B Natriuret Pep pg/mL Total Protein (6.3-8.2) g/dL Albumin (3.5-5.0) g/dL Influenza Type A (PCR) Not Detected (Not Detectd) Influenza Type B (PCR) Not Detected (Not Detectd) RSV (PCR) Not Detected (Not Detectd) SARS-CoV-2 (PCR) Not Detected (Not Detectd) Critical Care Time Critical Care Time: Yes Total Critical Care Time: 35 Disposition Clinical Impression: CHF exacerbation, Atrial flutter with rapid ventricular response Disposition: ADMITTED IP TO THIS HOSP Condition: Stable Is patient prescribed a controlled substance at d/c from ED?: No Referrals: Olya Olson MD [Primary Care Provider] - 1-2 days Time of Disposition: 20:50
[2023-09-04] MEDS: DILTIAZEM 125 MG in SODIUM CHLORIDE 0.9% 100 ML IV SCH (18:36)
[2023-09-04 19:09] LABS: ALT 21 U/L (4-34); AST 27 U/L (14-36); African American GFR (CKD) >90 (>60 ml/min/1.73 sqM); Albumin 3.9 g/dL (3.5-5.0); Alkaline Phosphatase 165 U/L (38-126); Anion Gap 11 mmol/L; Blood Urea Nitrogen 15 mg/dL (7-17); Calcium 8.7 mg/dL (8.4-10.2); Carbon Dioxide 25 mmol/L (22-30); Chloride 105 mmol/L (98-107); Glucose 122 mg/dL (74-99); Non-African American GFR(CKD) >90 (>60 ml/min/1.73 sqM); Sodium 141 mmol/L (137-145); Total Bilirubin 1.7 mg/dL (0.2-1.3); Total Protein 7.4 g/dL (6.3-8.2)
[2023-09-04 19:11] LABS: Potassium 3.6 mmol/L (3.5-5.1)
[2023-09-04 19:15] LABS: NT-Pro-B-Type Natriuretic Pept 4740 pg/mL
[2023-09-04 19:17] LABS: Basophils % (A) 1 %; Eosinophils # (A) 0.1 k/uL (0-0.7); Eosinophils % (A) 2 %; HCT 35.4 % (34.0-46.0); HGB 11.3 gm/dL (11.4-16.0); Hypochromasia Moderate; Lymphocytes # (A) 1.1 k/uL (1.0-4.8); Lymphocytes % (A) 15 %; MCH 30.1 pg (25.0-35.0); Mean Platelet Volume 8.7; Monocytes # (A) 0.4 k/uL (0-1.0); Monocytes % (A) 5 %; Neutrophils # (A) 5.3 k/uL (1.3-7.7); Neutrophils % (A) 74 %; Platelet Count 150 k/uL (150-450); RBC 3.76 m/uL (3.80-5.40); RDW 15.3 % (11.5-15.5); WBC 7.2 k/uL (3.8-10.6)
--- NOTE | 2023-09-04 19:49 | XR ---
EXAMINATION TYPE: XR chest 2V DATE OF EXAM: 09/04/2023 6:51 PM CLINICAL INDICATION:Female, 78 years old with history of difficulty breathing; [facility] COMPARISON: 08/23/2023. TECHNIQUE: XR chest 2V Frontal and lateral views of the chest. FINDINGS: Lungs/Pleura: There is no evidence of pleural effusion, focal consolidation, or pneumothorax. Pulmonary vascularity: Pulmonary vascular congestion. Heart/mediastinum: Cardiomediastinal silhouette is enlarged and stable. Atherosclerotic calcificatio ns are seen in the aorta. Aortic valve repair changes. Left atrial appendage occlusion device is pres ent. Musculoskeletal: No acute osseous pathology. Midline sternotomy wires are noted.Shoulder arthroplasty appears intact. IMPRESSION: Cardiomegaly and mild pulmonary vascular congestion. Correlate with BNP for congestive heart failure.
[2023-09-04] MEDS ORDERED: FUROSEMIDE 10 MG/ML 4 ML VIAL IV STA (19:57)
[2023-09-04 20:34] LABS: INR 2.2 (<1.2); Partial Thromboplastin Time 32.8 sec (22.0-30.0); Prothrombin Time 22.4 sec (10.0-12.5)
[2023-09-04] MEDS ORDERED: NALOXONE 0.4 MG/ML 1 ML VIAL IV PRN (20:34)
[2023-09-04] MEDS ORDERED: ACETAMINOPHEN TAB 325 MG TAB PO PRN (20:45)
[2023-09-04] MEDS ORDERED: ONDANSETRON 4 MG/2 ML VIAL IVP PRN (20:45)
[2023-09-04] MEDS: FUROSEMIDE 10 MG/ML 4 ML VIAL IV SCH (20:53)
[2023-09-05] MEDS ORDERED: SODIUM CHLORIDE 0.9% 500 ML 500 ML IV STA (03:00)
[2023-09-05 08:59] LABS: INR 2.2 (<1.2); Prothrombin Time 21.5 sec (10.0-12.5)
[2023-09-05] MEDS ORDERED: HYDROcodone/APAP 10-325MG 1 EACH TAB PO PRN (09:19)
[2023-09-05] MEDS ORDERED: IPRATROPIUM-ALBUTEROL 3 ML NEB INHALATION PRN (09:19)
[2023-09-05] MEDS ORDERED: ALBUTEROL NEBULIZED 2.5 MG/3 ML INHALATION PRN (09:19)
[2023-09-05] MEDS: DILTIAZEM 125 MG in SODIUM CHLORIDE 0.9% 100 ML IV SCH (09:24)
[2023-09-05] MEDS: AMIODARONE 200 MG TAB PO SCH ×2 (09:32→21:03)
[2023-09-05] MEDS: SILDENAFIL 20 MG TAB PO SCH ×3 (09:32→21:03)
[2023-09-05] MEDS: METOPROLOL TARTRATE 50 MG TAB PO SCH ×3 (09:32→21:03)
[2023-09-05] MEDS: FUROSEMIDE 10 MG/ML 4 ML VIAL IV SCH ×2 (09:36→21:01)
--- NOTE | 2023-09-05 11:01 | P.HPIM ---
History of Present Illness H&P Date: 09/05/23 This is an 78-year-old female patient presents to the ER with concerns of increased shortness of breath and rapid heart rate along with generalized weakness. Patient has a past medical history chronic systolic congestive heart failure and valvular heart disease along with pulmonary hypertension. A dditional medical history includes COPD, hypothyroidism, rheumatoid arthritis and chronic kidney disease. Upon arrival troponin negative. BNP 4740. Influenza RSV and COVID-19 negative. Chest x-ray completed showing cardiomegaly and mild pulmonary vascular congestion. EKG showing atrial flutter tachycardia with rapid ventricular response. Patient is maintained on Coumadin INR therapeutic at 2.2. Patient was started on IV Cardizem and given IV diuretics in ER. Cardiology services have been consulted. Current vital signs heart rate controlled at 86, respiratory rate 20, blood pressure 99/77 with a pulse ox of 95% on 3 L. Patient reports slight improvement with shortness of breath.denies chest pain. Patient denies nausea vomiting or diarrhea. Patient denies any urinary burning or frequency Review of Systems Please refer to HPI otherwise unremarkable Past Medical History Past Medical History: Atrial Fibrillation, Heart Failure, COPD, GERD/Reflux, Osteoarthritis (OA), Renal Disease, Rheumatoid Arthritis (RA), Supraventricular Tachycardia (SVT), Thyroid Disorder Additional Past Medical History / Comment(s): Valvular heart disease with previous aortic valve replacement and a mitral valve repair, congestion heart failure, Paroxysmal Afib, history of SVT, history of nonsustained VT, SOB with exertion, home O2 at 2L/NC usually prn but lately ATC, arthritis, RA several joints, current L elbow pain/swelling-had "injection", nephrolithiasis, hypothyroid, diverticular dx, UTI, iron deficiency anemia. 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 History of Any Multi-Drug Resistant Organisms: None Reported Past Surgical History: Coronary Bypass/CABG, Heart Catheterization, Hysterectomy, Joint Replacement, Orthopedic Surgery Additional Past Surgical History / Comment(s): Geoff total knees arthroplasty,lt h ip arthroplasty, goiter removed 1962, partial thyroidectomy, cataracts removed with lens implants, REVERSE TOTAL RIGHT SHOULDER; Rotator cuff R shoulder, cervical fusion/injections, colonoscopy 2016(next after 5yr), MATTHEW, valve surgery at [facility] 10/13/17 Prosthetic Aortic valve and mitral valve repair. Total abdominal hysterectomy in the 1980s. Past Anesthesia/Blood Transfusion Reactions: Postoperative Nausea & Vomiting (PONV) Past Psychological History: No Psychological Hx Reported Smoking Status: Former smoker Past Alcohol Use History: Occasional Past Drug Use History: None Reported - Past Family History Father Family Medical History: Cancer, Myocardial Infarction ([place]) Additional Family Medical History / Comment(s): in his 80's of a mi. Colon cancer. Mother Family Medical History: No Reported History Additional Family Medical History / Comment(s): age 88 . hx smoking. Daughter(s) Family Medical History: Cancer Additional Family Medical History / Comment(s): from vulvar cancer. Medications and Allergies Home Medications Medication Instructions Recorded Confirmed Type Albuterol Sulfate [Proair Hfa] 2 puff INHALATION RT-Q6H PRN 07/28/19 09/04/23 History Ascorbic Acid [Vitamin C] 500 mg PO DAILY 05/08/21 09/04/23 History Cholecalciferol (Vitamin D3) 125 mcg PO DAILY 06/06/22 09/04/23 History [Vitamin D3 (125 MCG = 5,000 IU)] Ipratropium-Albuterol Nebulize 3 ml INHALATION RT-Q6H PRN 06/06/22 09/04/23 History [Duoneb 0.5 mg-3 mg/3 ml Soln] Fluticasone Propion/Salmeterol 1 puff INHALATION RT-BID 06/07/23 09/04/23 History [Advair 100-50 Diskus] HYDROcodone/APAP 10-325MG [[place] 1 tab PO Q8H PRN 06/28/23 09/04/23 History 10-325] Sildenafil [Revatio] 20 mg PO TID 90 Days #30 tab 07/02/23 09/04/23 Rx Bumetanide [BUMEX] 2 mg PO DAILY 30 Days #60 tab 08/27/23 09/04/23 Rx Levothyroxine Sodium [Synthroid] 150 mcg PO AC-BRKFST 30 Days #30 08/27/23 09/04/23 Rx tablet Metoprolol Tartrate [Lopressor] 50 mg PO BID 30 Days #60 tab 08/27/23 09/04/23 Rx Furosemide [Lasix] 40 mg PO DAILY 09/04/23 09/04/23 History Warfarin [Coumadin] 3 mg PO DAILY 09/04/23 09/04/23 History Allergies Allergy/AdvReac Type Severity Reaction Status Date / Time lisinopril Allergy Unknown Verified 09/04/23 22:07 Physical Exam Vitals: Vital Signs Temp Pulse Resp BP Pulse Ox 09/05/23 06:26 86 20 99/77 95 09/05/23 04:00 107 H 27 H 93/65 95 09/05/23 03:00 131 H 19 89/66 96 09/05/23 02:53 137 H 16 82/59 96 09/05/23 02:40 135 H 16 76/44 96 09/05/23 02:00 138 H 16 102/67 95 09/05/23 01:00 133 H 27 H 94/65 95 09/05/23 00:00 121 H 23 97/68 100 09/04/23 23:00 154 H 27 H 97/69 100 09/04/23 22:52 101 H 22 97/69 100 09/04/23 20:15 138 H 16 120/88 100 09/04/23 18:07 137 H 20 97 09/04/23 17:42 97.6 F 135 H 22 131/81 87 L Intake and Output 09/04/23 09/05/23 09/05/23 22:59 06:59 14:59 Intake Total 10.25 12.583 Output Total 1100 Balance 10.25 -1087.417 Intake: Intake, IV Titration 10.25 12.583 Amount Diltiazem 125 mg In 10.25 12.583 Sodium Chloride 0.9% 100 ml @ 5 MG/HR 5 mls/hr IV .Q24H [facility] Rx#:[id number] Output: Urine 1100 Other: Weight 47.627 kg Head normocephalic Neck supple Lungs clear to auscultation bilaterally no wheezing or crackles Heart irregular heart rate known atrial fibrillation Abdomen is soft nontender nondistended positive bowel sounds no hepatosplenom egaly Extremities no edema Neuro alert and orientated to 3 Results CBC & Chem 7: 09/04/23 18:19 09/04/23 18:19 Labs: Abnormal Lab Results - Last 24 Hours (Table) 09/04/23 09/04/23 09/04/23 Range/Units 18:19 18:19 18:19 RBC 3.76 L (3.80-5.40) m/uL Hgb 11.3 L (11.4-16.0) gm/dL PT 22.4 H (10.0-12.5) sec INR 2.2 H (<1.2) APTT 32.8 H (22.0-30.0) sec Creatinine 0.49 L (0.52-1.04) mg/dL Glucose 122 H (74-99) mg/dL Total Bilirubin 1.7 H (0.2-1.3) mg/dL Alkaline Phosphatase 165 H (38-126) U/L 09/05/23 Range/Units 08:20 RBC (3.80-5.40) m/uL Hgb (11.4-16.0) gm/dL PT 21.5 H (10.0-12.5) sec INR 2.2 H (<1.2) APTT (22.0-30.0) sec Creatinine (0.52-1.04) mg/dL Glucose (74-99) mg/dL Total Bilirubin (0.2-1.3) mg/dL Alkaline Phosphatase (38-126) U/L Assessment and Plan Assessment: 1. Acute exacerbation of CHF 2. Chronic systolic congestive heart failure 3. Atrial fibrillation with rapid ventricular response 4. Underlying history of proximal atrial fibrillation maintained on Coumadin 5. Underlying history of valvular heart disease with history of aortic valve replacement mitral valve repair 6. Underlying history of pulmonary hypertension 7. Underlying history of COPD 8. Underlying history of hypothyroidism 9. Underlying history of rheumatoid arthritis 10. Underlying history of chronic kidney disease DVT prophylaxis Coumadin. GI prophylaxis Protonix Cardiology service is consulted Patient started on IV Lasix Patient maintained on IV Cardizem Repeat labs ordered PT OT service is consulted Time with Patient: Greater than 30 (Greater than 60% of the total time spent in counseling and coordination of care)
--- NOTE | 2023-09-05 13:50 | P.CRDCN ---
History of Present Illness Consult date: 09/05/23 Consult reason: atrial flutter, congestive heart failure History of present illness: History of present illness: This is an 78-year-old female patient of Dr. Flores with past medical history of persistent atrial fibrillation on Coumadin, known EF of 37%, history of mitral valve repair, nonischemic cardiomyopathy, pulmonary hypertension, hypot hyroidism, patient was recently hospitalized in August for atrial flutter failed amiodarone and congestive heart failure. We have been asked to evaluate the patient for atrial flutter and heart failure. Patient states that she has had difficulty of breathing and pounding in her chest. She is seen today in the emergency center waiting for a bed on the cardiac stepdown unit. Heart rate is currently 99 and blood pressure 111/81. Patient is currently on Cardizem drip at 5 mg per hour EKG atrial flutter at 136 bpm Chest x-ray: Cardiomegaly and mild pulmonary vascular congestion. WBC 7.2, hemoglobin 11.3, platelet count 150. INR 2.2. Electrolytes and renal function normal. Blood sugar 122. Alkaline Phosphatase 165 otherwise AST and ALT normal. Total bilirubin 1.7. Troponin negative 1. ProBNP 4740. TSH 2.67. Influenza A, influenza B, RSV, Covid 19 not detected. Home cardiac medications: Bumex 2 mg daily, Lasix 40 mg daily (patient states she only takes the Lasix) Lopressor 50 mg twice daily, Revatio 20 mg 3 times daily, Coumadin 3 mg daily, also on levothyroxine 150 g daily Echocardiogram performed 06/2022 revealed EF of 37%, mild MR, repair M08, moderate to severe TR, prosthetic AV, mild to moderate IA, mild pulmonary hypertension, severely dilated RV. Exercise tolerance test performed 01/2018 was nondiagnostic, patient walked 4:01 minutes. Review Of Systems: At the time of my exam: CONSTITUTIONAL: Denies fever or chills. CARDIOVASCULAR: Denies chest pain, reports shortness of breath, no orthopnea, no PND or reports palpitations. RESPIRATORY: Denies cough. GASTROINTESTINAL: Denies abdominal pain, diarrhea, constipation, nausea or vomiting. MUSCULOSKELETAL: Denies myalgias. NEUROLOGIC: Denies numbness, tingling or weakness. ENDOCRINE: Denies fatigue, weight change, polydipsia or polyurina. GENITOURINARY: Denies burning, hematuria or urgency with micturation. HEMATOLOGIC: Denies history of anemia or bleeding. Physical examination: Gen: This is an 78-year-old female resting in appears to be in no acute distress. VS: reviewed HEENT: Head is atraumatic, normocephalic. Pupils equal, round. Sclerae is anicteric. NECK: Supple. No JVD. LUNGS: Clear to auscultation. No wheezes or rhonchi. No intercostal retractions. HEART: Irregular rate and rhythm. 2/6 systolic murmur. ABDOMEN: Soft No tenderness. EXTREMITIES: No pedal edema. No calf tenderness. NEUROLOGICAL: Patient is awake, alert and oriented x3. Assessment: Persistent atrial fibrillation presenting with typical atrial flutter with RVR Mitral valve repair Nonischemic cardiomyopathy Pulmonary hypertension Hypothyroidism Plan: Resume patient's home cardiac medications Continue Cardizem drip and increase to 10 mg per hour Increase metoprolol to 50 mg 3 times daily Start patient on amiodarone 200 mg twice daily Repeat INR in the morning and maintain Coumadin at current dosing Obtain 2-D echocardiogram and Doppler study to assess cardiac structure and function Thank you kindly for this consultation. Nurse practitioner note has been reviewed, I agree with documented findings and plan of care. Patient was seen and examined. Past Medical History Past Medical History: Atrial Fibrillation, Heart Failure, COPD, GERD/Reflux, Osteoarthritis (OA), Renal Disease, Rheumatoid Arthritis (RA), Supraventricular Tachycardia (SVT), Thyroid Disorder Additional Past Medical History / Comment(s): Valvular heart disease with previous aortic valve replacement and a mitral valve repair, congestion heart failure, Paroxysmal Afib, history of SVT, history of nonsustained VT, SOB with exertion, home O2 at 2L/NC usually prn but lately ATC, arthritis, RA several joints, current L elbow pain/swelling-had "injection", nephrolithiasis, hypothyroid, diverticular dx, UTI, iron deficiency anemia. 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 History of Any Multi-Drug Resistant Organisms: None Reported Past Surgical History: Coronary Bypass/CABG, Heart Catheterization, Hysterec latoya, Joint Replacement, Orthopedic Surgery Additional Past Surgical History / Comment(s): Geoff total knees arthroplasty,lt hip arthroplasty, goiter removed 1962, partial thyroidectomy, cataracts removed with lens implants, REVERSE TOTAL RIGHT SHOULDER; Rotator cuff R shoulder, cervical fusion/injections, colonoscopy 2017(next after 5yr), MATTHEW, valve surgery at [facility] 10/13/17 Prosthetic Aortic valve and mitral valve repair. Total abdominal hysterectomy in the 1980s. Past Anesthesia/Blood Transfusion Reactions: Postoperative Nausea & Vomiting (PONV) Past Psychological History: No Psychological Hx Reported Smoking Status: Former smoker Past Alcohol Use History: Occasional Past Drug Use History: None Reported - Past Family History Father Family Medical History: Cancer, Myocardial Infarction ([place]) Additional Family Medical History / Comment(s): in his 80's of a mi. Colon cancer. Mother Family Medical History: No Reported History Additional Family Medical History / Comment(s): age 88 . hx smoking. Daughter(s) Family Medical History: Cancer Additional Family Medical History / Comment(s): from vulvar cancer. Medications and Allergies Home Medications Medication Instructions Recorded Confirmed Type Albuterol Sulfate [Proair Hfa] 2 puff INHALATION RT-Q6H PRN 07/28/19 09/04/23 History Ascorbic Acid [Vitamin C] 500 mg PO DAILY 05/08/21 09/04/23 History Cholecalciferol (Vitamin D3) 125 mcg PO DAILY 06/06/22 09/04/23 History [Vitamin D3 (125 MCG = 5,000 IU)] Ipratropium-Albuterol Nebulize 3 ml INHALATION RT-Q6H PRN 06/06/22 09/04/23 History [Duoneb 0.5 mg-3 mg/3 ml Soln] Fluticasone Propion/Salmeterol 1 puff INHALATION RT-BID 06/07/23 09/04/23 History [Advair 100-50 Diskus] HYDROcodone/APAP 10-325MG [[place] 1 tab PO Q8H PRN 06/28/23 09/04/23 History 10-325] Sildenafil [Revatio] 20 mg PO TID 90 Days #30 tab 07/02/23 09/04/23 Rx Bumetanide [BUMEX] 2 mg PO DAILY 30 Days #60 tab 08/27/23 09/04/23 Rx Levothyroxine Sodium [Synthroid] 150 mcg PO AC-BRKFST 30 Days #30 08/27/23 09/04/23 Rx tablet Metoprolol Tartrate [Lopressor] 50 mg PO BID 30 Days #60 tab 08/27/23 09/04/23 Rx Furosemide [Lasix] 40 mg PO DAILY 09/04/23 09/04/23 History Warfarin [Coumadin] 3 mg PO DAILY 09/04/23 09/04/23 History Allergies Allergy/AdvReac Type Severity Reaction Status Date / Time lisinopril Allergy Unknown Verified 09/04/23 22:07 Physical Exam Vitals: Vital Signs Temp Pulse Resp BP Pulse Ox 09/05/23 06:26 86 20 99/77 95 09/05/23 04:00 107 H 27 H 93/65 95 09/05/23 03:00 131 H 19 89/66 96 09/05/23 02:53 137 H 16 82/59 96 09/05/23 02:40 135 H 16 76/44 96 09/05/23 02:00 138 H 16 102/67 95 09/05/23 01:00 133 H 27 H 94/65 95 09/05/23 00:00 121 H 23 97/68 100 09/04/23 23:00 154 H 27 H 97/69 100 09/04/23 22:52 101 H 22 97/69 100 09/04/23 20:15 138 H 16 120/88 100 09/04/23 18:07 137 H 20 97 09/04/23 17:42 97.6 F 135 H 22 131/81 87 L Intake and Output 09/04/23 09/05/23 09/05/23 22:59 06:59 14:59 Intake Total 10.25 12.583 Output Total 1100 Balance 10.25 -1087.417 Intake: Intake, IV Titration 10.25 12.583 Amount Diltiazem 125 mg In 10.25 12.583 Sodium Chloride 0.9% 100 ml @ 5 MG/HR 5 mls/hr IV .Q24H [facility] Rx#:[id number] Output: Urine 1100 Other: Weight 47.627 kg Results 09/04/23 18:19 09/04/23 18:19 Cardiac Enzymes 09/04/23 09/04/23 Range/Units 18:19 18:19 AST 27 (14-36) U/L Troponin I <0.012 (0.000-0.034) ng/mL Coagulation 09/04/23 Range/Units 18:19 PT 22.4 H (10.0-12.5) sec APTT 32.8 H (22.0-30.0) sec CBC 09/04/23 Range/Units 18:19 WBC 7.2 (3.8-10.6) k/uL RBC 3.76 L (3.80-5.40) m/uL Hgb 11.3 L (11.4-16.0) gm/dL Hct 35.4 (34.0-46.0) % Plt Count 150 (150-450) k/uL Comprehensive Metabolic Panel 09/04/23 Range/Units 18:19 Sodium 141 (137-145) mmol/L Potassium 3.6 (3.5-5.1) mmol/L Chloride 105 (98-107) mmol/L Carbon Dioxide 25 (22-30) mmol/L BUN 15 (7-17) mg/dL Creatinine 0.49 L (0.52-1.04) mg/dL Glucose 122 H (74-99) mg/dL Calcium 8.7 (8.4-10.2) mg/dL AST 27 (14-36) U/L ALT 21 (4-34) U/L Alkaline Phosphatase 165 H (38-126) U/L Total Protein 7.4 (6.3-8.2) g/dL Albumin 3.9 (3.5-5.0) g/dL Current Medications Generic Name Dose Route Start Last Admin Trade Name Freq PRN Reason Stop Dose Admin Acetaminophen 650 mg 09/04/23 20:45 Acetaminophen Tab 325 Mg Tab PO Q6HR PRN Mild Pain or Fever > 100.5 Furosemide 40 mg 09/04/23 21:00 09/04/23 20:53 Furosemide 10 Mg/Ml 4 Ml Vial IV Not Given Q12HR CARLOS Diltiazem HCl 125 mg/ Sodium 125 mls @ 5 mls/hr 09/04/23 18:15 09/04/23 23:10 Chloride IV 10 mg/hr .Q24H CARLOS 10 mls/hr Infusion 5 MG/HR Naloxone HCl 0.2 mg 09/04/23 20:34 Naloxone 0.4 Mg/Ml 1 Ml Vial IV Q2M PRN Opioid Reversal Ondansetron HCl 4 mg 09/04/23 20:45 Ondansetron 4 Mg/2 Ml Vial IVP Q8HR PRN Nausea And Vomiting Intake and Output 09/04/23 09/05/23 09/05/23 22:59 06:59 14:59 Intake Total 10. 12.583 Output Total 1100 Balance 10. -1087.417 Intake: Intake, IV Titration 06.25 12.583 Amount Diltiazem 125 mg In 06.25 12.583 Sodium Chloride 0.9% 100 ml @ 5 MG/HR 5 mls/hr IV .Q24H [facility] Rx#:[id number] Output: Urine 1100 Other: Weight 47.627 kg 09/04/23 18:19 09/04/23 18:19
[2023-09-05] MEDS ORDERED: WARFARIN 3 MG TAB PO SCH (18:00)
[2023-09-05] MEDS: SYMBICORT 80-4.5 MCG INHALER INHALATION SCH (20:00)
[2023-09-06] MEDS ORDERED: MELATONIN 3 MG TABLET PO STA (00:01)
[2023-09-06] MEDS ORDERED: MELATONIN 3 MG TABLET PO ONE (00:15)
[2023-09-06] MEDS: PANTOPRAZOLE 40 MG TABLET PO SCH (06:25)
[2023-09-06] MEDS: LEVOTHYROXINE 75 MCG TAB PO SCH (06:25)
[2023-09-06] MEDS: SYMBICORT 80-4.5 MCG INHALER INHALATION SCH ×2 (08:45→19:24)
[2023-09-06 09:05] LABS: Basophils % (A) 0 %; Eosinophils # (A) 0.1 k/uL (0-0.7); Eosinophils % (A) 1 %; HGB 10.9 gm/dL (11.4-16.0); Hypochromasia Marked; Lymphocytes # (A) 2.1 k/uL (1.0-4.8); Lymphocytes % (A) 20 %; MCH 30.6 pg (25.0-35.0); MCHC 32.1 g/dL (31.0-37.0); MCV 95.5 fL (80.0-100.0); Mean Platelet Volume 8.7; Monocytes # (A) 0.6 k/uL (0-1.0); Monocytes % (A) 6 %; Neutrophils % (A) 68 %; Platelet Count 232 k/uL (150-450); RBC 3.56 m/uL (3.80-5.40); RDW 15.1 % (11.5-15.5); WBC 10.2 k/uL (3.8-10.6)
[2023-09-06 09:15] LABS: INR 3.3 (<1.2); Prothrombin Time 32.1 sec (10.0-12.5)
[2023-09-06] MEDS: ASCORBIC ACID 500 MG TAB PO SCH (09:15)
[2023-09-06] MEDS: SILDENAFIL 20 MG TAB PO SCH ×3 (09:15→20:03)
[2023-09-06] MEDS: METOPROLOL TARTRATE 50 MG TAB PO SCH ×2 (09:15→18:04)
[2023-09-06] MEDS: CHOLECALCIFEROL 125 MCG (5000 IU) TABLET PO SCH (09:15)
[2023-09-06] MEDS: AMIODARONE 200 MG TAB PO SCH (09:15)
[2023-09-06] MEDS: FUROSEMIDE 40 MG TAB PO SCH (09:15)
[2023-09-06 09:24] LABS: ALT 224 U/L (4-34); AST 455 U/L (14-36); African American GFR (CKD) 49 (>60 ml/min/1.73 sqM); Albumin 3.5 g/dL (3.5-5.0); Alkaline Phosphatase 145 U/L (38-126); Anion Gap 16 mmol/L; Blood Urea Nitrogen 26 mg/dL (7-17); Carbon Dioxide 24 mmol/L (22-30); Chloride 101 mmol/L (98-107); Glucose 106 mg/dL (74-99); Non-African American GFR(CKD) 43 (>60 ml/min/1.73 sqM); Potassium 4.5 mmol/L (3.5-5.1); Sodium 141 mmol/L (137-145); Total Bilirubin 2.9 mg/dL (0.2-1.3); Total Protein 6.7 g/dL (6.3-8.2)
--- NOTE | 2023-09-06 11:32 | P.PN ---
Subjective Progress Note Date: 09/06/23 Mirella San, is an 78-year-old female patient presents to the ER with concerns of increased shortness of breath and rapid heart rate along with generalized weakness. Patient has a past medical history chronic systolic congestive heart failure and valvular heart disease along with pulmonary hypertension. Additional medical history includes COPD, hypothyroidism, rheumatoid arthritis and chronic kidney disease. Upon arrival troponin negative. BNP 4740. Influenza RSV and COVID-19 negative. Chest x-ray completed showing cardiomegaly and mild pulmonary vascular congestion. EKG showing atrial flutter tachycardia with rapid ventricular response. Patient is maintained on Coumadin INR therapeutic at 2.2. Patient was started on IV Cardizem and given IV diuretics in ER. Cardiology services have been consulted. Current vital signs heart rate controlled at 86, respiratory rate 20, blood pressure 99/77 with a pulse ox of 95% on 3 L. Patient reports slight improvement with shortness of breath.denies chest pain. Patient denies nausea vomiting or diarrhea. Patient denies any urinary burning or frequency On 09/06/2023 patient was seen and examined on the medical floor she is alert and oriented 3 in no apparent distress, she reports some improvement in her shortness of breath, there is no fever or chills no headache or dizziness no chest pain no nausea or vomiting no abdominal pain no diarrhea and no urinary symptoms. Temperature is 97.9 pulse 70 respiration 18 blood pressure 119/66 pulse ox 97% on 3 L nasal cannula white blood count 10.2 hemoglobin 10.9 platelet count 232 INR 3.3 BUN 26 creatinine 1.2 there was significant elevation in liver enzymes since yesterday with ALT 224 AST 455 alkaline phosphatase 145 and total bilirubin 2.9 Objective - Vital Signs Vital signs: Vital Signs Temp 97.9 F 09/06/23 07:42 Pulse 70 09/06/23 08:00 Resp 18 09/06/23 08:00 BP 87/54 09/06/23 07:42 Pulse Ox 97 09/06/23 07:42 FiO2 Intake & Output 09/05/23 09/06/23 09/06/23 18:59 06:59 18:59 Intake Total 102.167 Balance 102.167 Weight 57.5 kg Intake: Intake, IV Titration 102.167 Amount Diltiazem 125 mg In 102.167 Sodium Chloride 0.9% 100 ml @ 5 MG/HR 5 mls/hr IV .Q24H [facility] Rx#:[id number] Other: Voiding Method Diaper Diaper Incontinent Incontinent External Catheter External Catheter # Voids 2 - Exam Head normocephalic Neck supple Lungs clear to auscultation bilaterally no wheezing or crackles Heart irregular heart rate known atrial fibrillation Abdomen is soft nontender nondistended positive bowel sounds no hepatosplenomegaly Extremities no edema Neuro alert and orientated to 3 - Labs CBC & Chem 7: 09/06/23 08:16 09/06/23 08:16 Labs: Abnormal Lab Results - Last 24 Hours (Table) 09/06/23 09/06/23 09/06/23 Range/Units 08:16 08:16 08:16 RBC 3.56 L (3.80-5.40) m/uL Hgb 10.9 L (11.4-16.0) gm/dL PT 32.1 H (10.0-12.5) sec INR 3.3 H (<1.2) BUN 26 H (7-17) mg/dL Creatinine 1.20 H (0.52-1.04) mg/dL Glucose 106 H (74-99) mg/dL Total Bilirubin 2.9 H (0.2-1.3) mg/dL AST 455 H (14-36) U/L ALT 224 H (4-34) U/L Alkaline Phosphatase 145 H (38-126) U/L Assessment and Plan Assessment: 1. Acute exacerbation of CHF 2. Chronic systolic congestive heart failure 3. Atrial fibrillation with rapid ventricular response 4. Underlying history of proximal atrial fibrillation maintained on Coumadin 5. Underlying history of valvular heart disease with history of aortic valve replacement mitral valve repair 6. Underlying history of pulmonary hypertension 7. Underlying history of COPD 8. Underlying history of hypothyroidism 9. Underlying history of rheumatoid arthritis 10. Underlying history of chronic kidney disease 11. Elevated liver enzymes today, will check liver ultrasound, medications were reviewed will discontinue Tylenol at this time. DVT prophylaxis Coumadin. GI prophylaxis Protonix Cardiology service is consulted Patient started on IV Lasix Patient maintained on IV Cardizem Repeat labs ordered PT OT service is consulted
--- NOTE | 2023-09-06 12:45 | US ---
EXAMINATION TYPE: US liver DATE OF EXAM: 09/06/2023 COMPARISON: None CLINICAL INDICATION: Female, 78 years old with history of elevated liver enzymes. TECHNIQUE: Multiple sonographic images of the right upper quadrant are obtained. FINDINGS: EXAM MEASUREMENTS: Liver Length: 15.8 cm Gallbladder Wall: 0.2 cm CBD: 0.3 cm Right Kidney: 9.2 x 3.7 x 4.0 cm SAMPLE ROOM SUPERVISOR NOTES: Immobile, unresponsive pt- difficult to scan Pancreas: wnl, tail obscured by overlying bowel gas Liver: Limited views show no abnormality at this time Gallbladder: Possible small 4 mm polyp posterior wall- pt immobile, unable to roll LLD. No wall thic kening, surrounding fluid, or shadowing stone seen. Evidence for sonographic Méndez's sign: No CBD: wnl Right Kidney: wnl, lower pole obscured by multiple cardiac leads attached to the abdomen. No hydrone phrosis seen. IMPRESSION: Exam limitations as above. No gallstones or biliary ductal dilatation seen. Suspect a small 4 mm gall bladder wall polyp and can be reassessed at a 6 month follow-up.
--- NOTE | 2023-09-06 14:24 | P.PN ---
Subjective Progress Note Date: 09/06/23 This is Solis Javier NP, I'm dictating on behalf of Dr. Styles's H&P and A&P. Patient was interviewed and examined. Patient is a pleasant 78-year-old female who presented to Hospital with A. fib/flutter with RVR. Currently patient's heart rate is been well controlled with combination of metoprolol and IV diltiazem. Patient was started on amiodarone previously, however it's noted today her liver function tests are elevated, as well as her creatinine. Patient's INR is also elevated. We will have to discontinue the amiodarone. This morning the patient reports that she's breathing about the same. She is denying chest pain, shortness of breath, heart palpitations. Her atrial fibrillation is currently controlled on current regimen. Patient is noted to be somewhat hypotensive today. GENERAL: Well-appearing, well-nourished and in no acute distress. NECK: Supple without JVD or thyromegaly. LUNGS: Breath sounds clear to auscultation bilaterally. Respiration equal and unlabored. No wheezes, rales or rhonchi. HEART: Regular rate and rhythm with systolic murmur, no rubs or gallops. S1 and S2 heard. EXTREMITIES: Normal range of motion, no edema. No clubbing or cyanosis. Peripheral pulses intact and strong. VITALS: Temp 97.9, pulse 70, respirations 18, blood pressure 87/54, O2 saturation 97% on 3 L TELEMETRY: Atrial fibrillation with controlled ventricular response LABS: White count 10.2, hemoglobin 10.9, platelets 232, INR 3.3, sodium 141, potassium 4.5, B1 26, creatinine 1.20, AST 455, ALP 224, alkaline phosphatase 145 IMPRESSION: 1. Persistent atrial fibrillation with rapid ventricular response 2. Mitral valve repair 3. Nonischemic cardiomyopathy 4. Pulmonary hypertension 5. Hypothyroidism PLAN: Discontinue amiodarone secondary to elevated liver function tests. Patient's INR is also elevated, this is another reason to discontinue the amiodarone. Continue metoprolol 50 mg 3 times a day. Continue to monitor liver and kidney function. Continue Lasix at this time. We'll reevaluate if creatinine continues to elevate. Further recommendations based on patient's clinical course. Objective - Vital Signs Vital signs: Vital Signs Temp 97.9 F 09/06/23 07:42 Pulse 70 09/06/23 12:57 Resp 18 09/06/23 12:57 BP 87/54 09/06/23 07:42 Pulse Ox 97 09/06/23 07:42 FiO2 Intake & Output 09/05/23 09/06/23 09/06/23 18:59 06:59 18:59 Intake Total 102.167 Output Total 200 Balance 102.167 -200 Weight 57.5 kg Intake: Intake, IV Titration 102.167 Amount Diltiazem 125 mg In 102.167 Sodium Chloride 0.9% 100 ml @ 5 MG/HR 5 mls/hr IV .Q24H [facility] Rx#:[id number] Output: Urine 200 Other: Voiding Method Diaper Diaper Incontinent Incontinent External Catheter External Catheter # Voids 2 - Labs CBC & Chem 7: 09/06/23 08:16 09/06/23 08:16 Labs: Abnormal Lab Results - Last 24 Hours (Table) 09/06/23 09/06/23 09/06/23 Range/Units 08:16 08:16 08:16 RBC 3.56 L (3.80-5.40) m/uL Hgb 10.9 L (11.4-16.0) gm/dL PT 32.1 H (10.0-12.5) sec INR 3.3 H (<1.2) BUN 26 H (7-17) mg/dL Creatinine 1.20 H (0.52-1.04) mg/dL Glucose 106 H (74-99) mg/dL Total Bilirubin 2.9 H (0.2-1.3) mg/dL AST 455 H (14-36) U/L ALT 224 H (4-34) U/L Alkaline Phosphatase 145 H (38-126) U/L
[2023-09-06] MEDS: DILTIAZEM 125 MG in SODIUM CHLORIDE 0.9% 100 ML IV SCH (14:56)
[2023-09-06] MEDS ORDERED: WARFARIN 0.5 MG TAB PO ONE (18:00)
[2023-09-06] MEDS: SODIUM CHLORIDE 0.9% 250 ML IV SCH ×3 (20:10→22:53)
[2023-09-07] MEDS: SODIUM CHLORIDE 0.9% 250 ML IV SCH ×5 (05:59→21:07)
[2023-09-07] MEDS: PANTOPRAZOLE 40 MG TABLET PO SCH (06:43)
[2023-09-07] MEDS: LEVOTHYROXINE 75 MCG TAB PO SCH (06:43)
[2023-09-07] MEDS: SILDENAFIL 20 MG TAB PO SCH ×3 (07:39→22:43)
[2023-09-07] MEDS: FUROSEMIDE 40 MG TAB PO SCH (07:39)
[2023-09-07] MEDS: CHOLECALCIFEROL 125 MCG (5000 IU) TABLET PO SCH (07:39)
[2023-09-07] MEDS: ASCORBIC ACID 500 MG TAB PO SCH (07:39)
[2023-09-07] MEDS: METOPROLOL TARTRATE 50 MG TAB PO SCH ×2 (07:39→22:19)
[2023-09-07] MEDS: SYMBICORT 80-4.5 MCG INHALER INHALATION SCH ×2 (08:45→20:01)
[2023-09-07] MEDS ORDERED: ZINC OXIDE PASTE (Z-GUARD) 1 APPLIC TOPICAL PRN (09:38)
[2023-09-07 09:57] LABS: INR 4.4 (<1.2); Prothrombin Time 43.2 sec (10.0-12.5)
[2023-09-07 09:58] LABS: ALT 299 U/L (4-34); AST 338 U/L (14-36); African American GFR (CKD) 50 (>60 ml/min/1.73 sqM); Albumin 3.2 g/dL (3.5-5.0); Alkaline Phosphatase 127 U/L (38-126); Anion Gap 11 mmol/L; Blood Urea Nitrogen 33 mg/dL (7-17); Calcium 8.4 mg/dL (8.4-10.2); Carbon Dioxide 29 mmol/L (22-30); Chloride 101 mmol/L (98-107); Glucose 115 mg/dL (74-99); Non-African American GFR(CKD) 43 (>60 ml/min/1.73 sqM); Potassium 3.5 mmol/L (3.5-5.1); Sodium 141 mmol/L (137-145); Total Bilirubin 1.4 mg/dL (0.2-1.3); Total Protein 6.3 g/dL (6.3-8.2)
[2023-09-07 10:04] LABS: Basophils % (A) 1 %; Eosinophils # (A) 0.2 k/uL (0-0.7); Eosinophils % (A) 3 %; HCT 34.1 % (34.0-46.0); HGB 10.7 gm/dL (11.4-16.0); Hypochromasia Marked; Lymphocytes # (A) 1.4 k/uL (1.0-4.8); Lymphocytes % (A) 18 %; MCH 30.2 pg (25.0-35.0); MCHC 31.5 g/dL (31.0-37.0); Mean Platelet Volume 9.1; Monocytes # (A) 0.4 k/uL (0-1.0); Monocytes % (A) 5 %; Neutrophils # (A) 5.5 k/uL (1.3-7.7); Neutrophils % (A) 71 %; Platelet Count 225 k/uL (150-450); RBC 3.56 m/uL (3.80-5.40); WBC 7.7 k/uL (3.8-10.6)
--- NOTE | 2023-09-07 11:03 | P.PN ---
Subjective Progress Note Date: 09/07/23 Mirella San, is an 78-year-old female patient presents to the ER with concerns of increased shortness of breath and rapid heart rate along with generalized weakness. Patient has a past medical history chronic systolic congestive heart failure and valvular heart disease along with pulmonary hypertension. Additional medical history includes COPD, hypothyroidism, rheumatoid arthritis and chronic kidney disease. Upon arrival troponin negative. BNP 4740. Influenza RSV and COVID-19 negative. Chest x-ray completed showing cardiomegaly and mild pulmonary vascular congestion. EKG showing atrial flutter tachycardia with rapid ventricular response. Patient is maintained on Coumadin INR therapeutic at 2.2. Patient was started on IV Cardizem and given IV diuretics in ER. Cardiology services have been consulted. Current vital signs heart rate controlled at 86, respiratory rate 20, blood pressure 99/77 with a pulse ox of 95% on 3 L. Patient reports slight improvement with shortness of breath.denies chest pain. Patient denies nausea vomiting or diarrhea. Patient denies any urinary burning or frequency On 09/06/2023 patient was seen and examined on the medical floor she is alert and oriented 3 in no apparent distress, she reports some improvement in her shortness of breath, there is no fever or chills no headache or dizziness no chest pain no nausea or vomiting no abdominal pain no diarrhea and no urinary symptoms. Temperature is 97.9 pulse 70 respiration 18 blood pressure 119/66 pulse ox 97% on 3 L nasal cannula white blood count 10.2 hemoglobin 10.9 platelet count 232 INR 3.3 BUN 26 creatinine 1.2 there was significant elevation in liver enzymes since yesterday with ALT 224 AST 455 alkaline phosphatase 145 and total bilirubin 2.9 On 09/07/2023 for patients alert and oriented 3 currently resting comfortably in bed. Amiodarone was DC'd per cardiology due to elevated liver enzymes and INR level. Heart rate remains controlled vital signs temp 98.1, heart rate 80, respiratory rate 16, blood pressure 102/55 and pulse ox 97% on 3 L. Repeat labs have been ordered Objective - Vital Signs Vital signs: Vital Signs Temp 98.1 F 09/07/23 07:36 Pulse 80 09/07/23 07:36 Resp 16 09/07/23 07:36 BP 102/55 09/07/23 07:36 Pulse Ox 97 01/07/24 07:36 FiO2 Intake & Output 09/06/23 09/07/23 09/07/23 18:59 06:59 18:59 Intake Total 118 540 236 Output Total 200 100 Balance -82 540 136 Intake: Oral 118 540 236 Output: Urine 200 100 Other: Voiding Method Diaper Diaper Diaper Incontinent Incontinent Incontinent External Catheter External Catheter External Catheter # Voids 5 1 - Exam Head normocephalic Neck supple Lungs clear to auscultation bilaterally no wheezing or crackles Heart irregular heart rate known atrial fibrillation Abdomen is soft nontender nondistended positive bowel sounds no hepatosplenomegaly Extremities no edema Neuro alert and orientated to 3 - Labs CBC & Chem 7: 09/07/23 07:55 09/07/23 07:55 Labs: Abnormal Lab Results - Last 24 Hours (Table) 09/07/23 09/07/23 09/07/23 Range/Units 07:55 07:55 07:55 RBC 3.56 L (3.80-5.40) m/uL Hgb 10.7 L (11.4-16.0) gm/dL PT 43.2 H (10.0-12.5) sec INR 4.4 H (<1.2) BUN 33 H (7-17) mg/dL Creatinine 1.19 H (0.52-1.04) mg/dL Glucose 115 H (74-99) mg/dL Total Bilirubin 1.4 H (0.2-1.3) mg/dL AST 338 H (14-36) U/L ALT 299 H (4-34) U/L Alkaline Phosphatase 127 H (38-126) U/L Albumin 3.2 L (3.5-5.0) g/dL Assessment and Plan Assessment: 1. Acute exacerbation of CHF 2. Chronic systolic congestive heart failure 3. Atrial fibrillation with rapid ventricular response 4. Underlying history of proximal atrial fibrillation maintained on Coumadin 5. Underlying history of valvular heart disease with history of aortic valve replacement mitral valve repair 6. Underlying history of pulmonary hypertension 7. Underlying history of COPD 8. Underlying history of hypothyroidism 9. Underlying history of rheumatoid arthritis 10. Underlying history of chronic kidney disease 11. Elevated liver enzymes today, will check liver ultrasound, medications were reviewed will discontinue Tylenol at this time. ' 12. Incidental finding of gallbladder wall polyp. Recommend 6 month follow-up DVT prophylaxis Coumadin. GI prophylaxis Protonix Cardiology service is consulted Repeat labs ordered PT OT service is consulted
--- NOTE | 2023-09-07 13:28 | P.PN ---
Subjective Progress Note Date: 09/07/23 This is Solis Javier NP, I'm dictating on behalf of Dr. Styles's H&P and A&P. Patient was interviewed and examined. Patient is a pleasant 78-year-old female who presented to Hospital with A. fib/flutter with RVR. Currently patient's heart rate is been well controlled with metoprolol, as IV diltiazem has been discontinued. After patient's amiodarone was discontinued, it's noted that her liver function tests are slightly better today. Creatinine is also slightly improved today. INR continues to climb, and is 4.4 today. This is likely secondary to liver issues and not the medications.. This morning the patient reports that she's feeling okay today. She is denying chest pain, shortness of breath, heart palpitations. Her atrial fibrillation is currently controlled on current regimen. Blood pressure appears somewhat better today. GENERAL: Well-appearing, well-nourished and in no acute distress. NECK: Supple without JVD or thyromegaly. LUNGS: Breath sounds clear to auscultation bilaterally. Respiration equal and unlabored. No wheezes, rales or rhonchi. HEART: Regular rate and rhythm without murmurs, rubs or gallops. S1 and S2 heard. EXTREMITIES: Normal range of motion, no edema. No clubbing or cyanosis. Peripheral pulses intact and strong. VITALS: Temp 98.1, pulse 80, respirations 16, blood pressure 102/55, O2 saturation 97% on 3 L TELEMETRY: Atrial fibrillation with controlled ventricular response LABS: White count 7.7, hemoglobin 10.7, platelets 225, sodium 141, potassium 3.5, B1 33, creatinine 1.19, calcium 8.4, bilirubin 1.4, AST 338, ALT 299, alkaline phosphatase 127 IMPRESSION: 1. Persistent atrial fibrillation with rapid ventricular response 2. Mitral valve repair 3. Nonischemic cardiomyopathy 4. Pulmonary hypertension 5. Hypothyroidism PLAN: Continue metoprolol as ordered. No further recommendations from a cardiology standpoint. Thank you for allowing us to participate in the care of this patient. Objective - Vital Signs Vital signs: Vital Signs Temp 97.9 F 09/07/23 12:00 Pulse 71 09/07/23 12:35 Resp 16 09/07/23 12:35 BP 89/61 09/07/23 12:00 Pulse Ox 96 09/07/23 12:00 FiO2 Intake & Output 09/06/23 09/07/23 09/07/23 18:59 06:59 18:59 Intake Total 118 540 236 Output Total 200 100 Balance -82 540 136 Intake: Oral 118 540 236 Output: Urine 200 100 Other: Voiding Method Diaper Diaper Diaper Incontinent Incontinent Incontinent External Catheter External Catheter External Catheter # Voids 5 1 - Labs CBC & Chem 7: 09/07/23 07:55 09/07/23 07:55 Labs: Abnormal Lab Results - Last 24 Hours (Table) 09/07/23 09/07/23 09/07/23 Range/Units 07:55 07:55 07:55 RBC 3.56 L (3.80-5.40) m/uL Hgb 10.7 L (11.4-16.0) gm/dL PT 43.2 H (10.0-12.5) sec INR 4.4 H (<1.2) BUN 33 H (7-17) mg/dL Creatinine 1.19 H (0.52-1.04) mg/dL Glucose 115 H (74-99) mg/dL Total Bilirubin 1.4 H (0.2-1.3) mg/dL AST 338 H (14-36) U/L ALT 299 H (4-34) U/L Alkaline Phosphatase 127 H (38-126) U/L Albumin 3.2 L (3.5-5.0) g/dL
[2023-09-07] MEDS ORDERED: WARFARIN 0.5 MG TAB PO ONE (18:00)
[2023-09-08] MEDS: PANTOPRAZOLE 40 MG TABLET PO SCH (06:35)
[2023-09-08] MEDS: LEVOTHYROXINE 75 MCG TAB PO SCH (06:36)
[2023-09-08] MEDS: METOPROLOL TARTRATE 50 MG TAB PO SCH ×2 (08:55→22:09)
[2023-09-08] MEDS: SILDENAFIL 20 MG TAB PO SCH ×3 (08:55→22:09)
[2023-09-08] MEDS: FUROSEMIDE 40 MG TAB PO SCH (08:55)
[2023-09-08] MEDS: ASCORBIC ACID 500 MG TAB PO SCH (08:55)
[2023-09-08] MEDS: CHOLECALCIFEROL 125 MCG (5000 IU) TABLET PO SCH (08:55)
[2023-09-08] MEDS: SYMBICORT 80-4.5 MCG INHALER INHALATION SCH ×2 (09:08→20:47)
[2023-09-08 09:28] LABS: Basophils # (A) 0.1 k/uL (0-0.2); Basophils % (A) 1 %; Eosinophils # (A) 0.2 k/uL (0-0.7); Eosinophils % (A) 3 %; HCT 33.2 % (34.0-46.0); HGB 10.2 gm/dL (11.4-16.0); Hypochromasia Marked; Lymphocytes # (A) 1.1 k/uL (1.0-4.8); Lymphocytes % (A) 15 %; MCH 29.6 pg (25.0-35.0); MCHC 30.8 g/dL (31.0-37.0); MCV 96.2 fL (80.0-100.0); Mean Platelet Volume 8.7; Monocytes # (A) 0.4 k/uL (0-1.0); Monocytes % (A) 5 %; Neutrophils # (A) 5.4 k/uL (1.3-7.7); Neutrophils % (A) 73 %; Platelet Count 205 k/uL (150-450); RBC 3.45 m/uL (3.80-5.40); RDW 15.1 % (11.5-15.5); WBC 7.4 k/uL (3.8-10.6)
[2023-09-08 09:41] LABS: INR 3.3 (<1.2)
[2023-09-08 10:12] LABS: Potassium 3.3 mmol/L (3.5-5.1)
[2023-09-08 10:13] LABS: ALT 238 U/L (4-34); AST 177 U/L (14-36); African American GFR (CKD) 89 (>60 ml/min/1.73 sqM); Albumin 3.1 g/dL (3.5-5.0); Alkaline Phosphatase 137 U/L (38-126); Anion Gap 8 mmol/L; Blood Urea Nitrogen 24 mg/dL (7-17); Calcium 8.5 mg/dL (8.4-10.2); Carbon Dioxide 30 mmol/L (22-30); Chloride 101 mmol/L (98-107); Glucose 126 mg/dL (74-99); Non-African American GFR(CKD) 77 (>60 ml/min/1.73 sqM); Sodium 139 mmol/L (137-145); Total Bilirubin 1.1 mg/dL (0.2-1.3); Total Protein 6.2 g/dL (6.3-8.2)
--- NOTE | 2023-09-08 17:37 | P.PN ---
Subjective Progress Note Date: 09/08/23 Mirella San, is an 78-year-old female patient presents to the ER with concerns of increased shortness of breath and rapid heart rate along with generalized weakness. Patient has a past medical history chronic systolic congestive heart failure and valvular heart disease along with pulmonary hypertension. Additional medical history includes COPD, hypothyroidism, rheumatoid arthritis and chronic kidney disease. Upon arrival troponin negative. BNP 4740. Influenza RSV and COVID-19 negative. Chest x-ray completed showing cardiomegaly and mild pulmonary vascular congestion. EKG showing atrial flutter tachycardia with rapid ventricular response. Patient is maintained on Coumadin INR therapeutic at 2.2. Patient was started on IV Cardizem and given IV diuretics in ER. Cardiology services have been consulted. Current vital signs heart rate controlled at 86, respiratory rate 20, blood pressure 99/77 with a pulse ox of 95% on 3 L. Patient reports slight improvement with shortness of breath.denies chest pain. Patient denies nausea vomiting or diarrhea. Patient denies any urinary burning or frequency On 09/06/2023 patient was seen and examined on the medical floor she is alert and oriented 3 in no apparent distress, she reports some improvement in her shortness of breath, there is no fever or chills no headache or dizziness no chest pain no nausea or vomiting no abdominal pain no diarrhea and no urinary symptoms. Temperature is 97.9 pulse 70 respiration 18 blood pressure 119/66 pulse ox 97% on 3 L nasal cannula white blood count 10.2 hemoglobin 10.9 platelet count 232 INR 3.3 BUN 26 creatinine 1.2 there was significant elevation in liver enzymes since yesterday with ALT 224 AST 455 alkaline phosphatase 145 and total bilirubin 2.9 On 09/07/2023 for patients alert and oriented 3 currently resting comfortably in bed. Amiodarone was DC'd per cardiology due to elevated liver enzymes and INR level. Heart rate remains controlled vital signs temp 98.1, heart rate 80, respiratory rate 16, blood pressure 102/55 and pulse ox 97% on 3 L. Repeat labs have been ordered On 09/08/2023 patient was seen and examined on the medical floor she is alert and oriented 3 in no apparent distress there is improvement in shortness of breath, there is no fever or chills no headache or dizziness no cough no nausea or vomiting no abdominal pain no diarrhea and no urinary symptoms, there is improvement in liver enzymes AST is down to 177 from 455 and ALT is down to 238 from 299 will continue to follow closely Objective - Vital Signs Vital signs: Vital Signs Temp 98.3 F 09/08/23 11:41 Pulse 72 09/08/23 11:41 Resp 18 09/08/23 11:41 BP 99/61 09/08/23 11:41 Pulse Ox 98 09/08/23 11:41 FiO2 Intake & Output 09/07/23 09/08/23 09/08/23 18:59 06:59 18:59 Intake Total 354 240 Output Total 100 300 400 Balance 254 -300 -160 Weight 52.5 kg Intake: Oral 354 240 Output: Urine 100 300 400 Other: Voiding Method Diaper Diaper Diaper Incontinent Incontinent Incontinent External Catheter External Catheter External Catheter - Exam Head normocephalic Neck supple Lungs clear to auscultation bilaterally no wheezing or crackles Heart irregular heart rate known atrial fibrillation Abdomen is soft nontender nondistended positive bowel sounds no hepatosplenomegaly Extremities no edema Neuro alert and orientated to 3 - Labs CBC & Chem 7: 09/08/23 08:46 09/08/23 08:46 Labs: Abnormal Lab Results - Last 24 Hours (Table) 09/08/23 09/08/23 09/08/23 Range/Units 08:46 08:46 08:46 RBC 3.45 L (3.80-5.40) m/uL Hgb 10.2 L (11.4-16.0) gm/dL Hct 33.2 L (34.0-46.0) % MCHC 30.8 L (31.0-37.0) g/dL PT 32.0 H (10.0-12.5) sec INR 3.3 H (<1.2) Potassium 3.3 L (3.5-5.1) mmol/L BUN 24 H (7-17) mg/dL Glucose 126 H (74-99) mg/dL AST 177 H (14-36) U/L ALT 238 H (4-34) U/L Alkaline Phosphatase 137 H (38-126) U/L Total Protein 6.2 L (6.3-8.2) g/dL Albumin 3.1 L (3.5-5.0) g/dL Assessment and Plan Assessment: 1. Acute exacerbation of CHF 2. Chronic systolic congestive heart failure 3. Atrial fibrillation with rapid ventricular response 4. Underlying history of proximal atrial fibrillation maintained on Coumadin 5. Underlying history of valvular heart disease with history of aortic valve replacement mitral valve repair 6. Underlying history of pulmonary hypertension 7. Underlying history of COPD 8. Underlying history of hypothyroidism 9. Underlying history of rheumatoid arthritis 10. Underlying history of chronic kidney disease 11. Elevated liver enzymes today, will check liver ultrasound, medications were reviewed will discontinue Tylenol at this time. DVT prophylaxis Coumadin. GI prophylaxis Protonix Cardiology service is consulted Patient started on IV Lasix Patient maintained on IV Cardizem Repeat labs ordered PT OT service is consulted
[2023-09-08] MEDS ORDERED: WARFARIN 0.5 MG TAB PO ONE (18:00)
[2023-09-09 04:08] VITALS: RESP 18
[2023-09-09] MEDS: LEVOTHYROXINE 75 MCG TAB PO SCH (06:30)
[2023-09-09] MEDS: PANTOPRAZOLE 40 MG TABLET PO SCH (06:30)
[2023-09-09] MEDS: FUROSEMIDE 40 MG TAB PO SCH (08:40)
[2023-09-09] MEDS: CHOLECALCIFEROL 125 MCG (5000 IU) TABLET PO SCH (08:40)
[2023-09-09] MEDS: SILDENAFIL 20 MG TAB PO SCH (08:40)
[2023-09-09] MEDS: METOPROLOL TARTRATE 50 MG TAB PO SCH (08:40)
[2023-09-09] MEDS: ASCORBIC ACID 500 MG TAB PO SCH (08:40)
[2023-09-09] MEDS: SYMBICORT 80-4.5 MCG INHALER INHALATION SCH (09:39)
[2023-09-09 11:26] VITALS: BMI 22.6
[2023-09-09 11:30] LABS: INR 2.3 (<1.2)
[2023-09-09 11:52] LABS: ALT 210 U/L (4-34); AST 119 U/L (14-36); African American GFR (CKD) >90 (>60 ml/min/1.73 sqM); Albumin 3.1 g/dL (3.5-5.0); Alkaline Phosphatase 141 U/L (38-126); Anion Gap 9 mmol/L; Blood Urea Nitrogen 19 mg/dL (7-17); Calcium 8.4 mg/dL (8.4-10.2); Carbon Dioxide 33 mmol/L (22-30); Chloride 99 mmol/L (98-107); Glucose 117 mg/dL (74-99); Non-African American GFR(CKD) 81 (>60 ml/min/1.73 sqM); Potassium 3.6 mmol/L (3.5-5.1); Sodium 141 mmol/L (137-145); Total Bilirubin 1.1 mg/dL (0.2-1.3); Total Protein 6.2 g/dL (6.3-8.2)
--- NOTE | 2023-09-09 13:13 | P.DS ---
Providers Date of admission: 09/04/23 20:46 Expected date of discharge: 09/09/23 Attending physician: Olya Olson Consults: 09/04/23 20:45 Consult Physician Routine Consulting Provider: Alexx Flores Consult Reason/Comments: A-flutter, chf Do you want consulting provider notified?: Yes Primary care physician: Olya Olson [facility] Course: Diagnosis on discharge: 1. Acute exacerbation of CHF 2. Chronic systolic congestive heart failure 3. Atrial fibrillation with rapid ventricular response 4. Underlying history of proximal atrial fibrillation maintained on Coumadin 5. Underlying history of valvular heart disease with history of aortic valve replacement mitral valve repair 6. Underlying history of pulmonary hypertension 7. Underlying history of COPD 8. Underlying history of hypothyroidism 9. Underlying history of rheumatoid arthritis 10. Underlying history of chronic kidney disease 11. Elevated liver enzymes today, will check liver ultrasound, medications were reviewed will discontinue Tylenol at this time. Hospital course: Mirella San, is an 78-year-old female patient presents to the ER with concerns of increased shortness of breath and rapid heart rate along with generalized weakness. Patient has a past medical history chronic systolic congestive heart failure and valvular heart disease along with pulmonary hypertension. Additional medical history includes COPD, hypothyroidism, rheumatoid arthritis and chronic kidney disease. Upon arrival troponin negative. BNP 4740. Influenza RSV and COVID-19 negative. Chest x-ray completed showing cardiomegaly and mild pulmonary vascular congestion. EKG showing atrial flutter tachycardia with rapid ventricular response. Patient is maintained on Coumadin INR therapeutic at 2.2. Patient was started on IV Cardizem and given IV diuretics in ER. Cardiology services have been consulted. Current vital signs heart rate controlled at 86, respiratory rate 20, blood pressure 99/77 with a pulse ox of 95% on 3 L. Patient reports slight improvement with shortness of breath.denies chest pain. Patient denies nausea vomiting or diarrhea. Patient denies any urinary burning or frequency On 09/06/2023 patient was seen and examined on the medical floor she is alert and oriented 3 in no apparent distress, she reports some improvement in her shortness of breath, there is no fever or chills no headache or dizziness no chest pain no nausea or vomiting no abdominal pain no diarrhea and no urinary symptoms. Temperature is 97.9 pulse 70 respiration 18 blood pressure 119/66 pulse ox 97% on 3 L nasal cannula white blood count 10.2 hemoglobin 10.9 platelet count 232 INR 3.3 BUN 26 creatinine 1.2 there was significant elevation in liver enzymes since yesterday with ALT 224 AST 455 alkaline phosphatase 145 and total bilirubin 2.9 On 09/07/2023 for patients alert and oriented 3 currently resting comfortably in bed. Amiodarone was DC'd per cardiology due to elevated liver enzymes and INR level. Heart rate remains controlled vital signs temp 98.1, heart rate 80, respiratory rate 16, blood pressure 102/55 and pulse ox 97% on 3 L. Repeat labs have been ordered On 09/08/2023 patient was seen and examined on the medical floor she is alert and oriented 3 in no apparent distress there is improvement in shortness of b reath, there is no fever or chills no headache or dizziness no cough no nausea or vomiting no abdominal pain no diarrhea and no urinary symptoms, there is improvement in liver enzymes AST is down to 177 from 455 and ALT is down to 238 from 299 will continue to follow closely On 09/09/2023 patient was seen and examined on the medical floor she is alert and oriented 3 in no apparent distress she is feeling better and asking about discharge home, at this time her heart rate is well-controlled at 80 blood pressure 101/60 pulse ox 97% on 2 L nasal cannula. INR is 2.3. Liver enzymes are still mildly elevated but improved significantly since yesterday. Patient was evaluated by cardiology and was cleared for discharge. She will be followed in our office within 1 week. Patient Condition at Discharge: Stable Plan - Discharge Summary Discharge Rx Participant: Yes New Discharge Prescriptions: New Warfarin [Coumadin] 2.5 mg PO ONCE@1800 30 Days #30 tab Continue Albuterol Sulfate [Proair Hfa] 2 puff INHALATION RT-Q6H PRN PRN Reason: Shortness Of Breath Ascorbic Acid [Vitamin C] 500 mg PO DAILY Cholecalciferol (Vitamin D3) [Vitamin D3 (125 MCG = 5,000 IU)] 125 mcg PO DAILY Ipratropium-Albuterol Nebulize [Duoneb 0.5 mg-3 mg/3 ml Soln] 3 ml INHALATION RT-Q6H PRN PRN Reason: Shortness Of Breath Fluticasone Propion/Salmeterol [Advair 100-50 Diskus] 1 puff INHALATION RT- BID Levothyroxine Sodium [Synthroid] 150 mcg PO AC-BRKFST 30 Days #30 tablet HYDROcodone/APAP 10-325MG [[place] 10-325] 1 tab PO Q8H PRN PRN Reason: Pain Sildenafil [Revatio] 20 mg PO TID 90 Days #30 tab Metoprolol Tartrate [Lopressor] 50 mg PO BID 30 Days #60 tab Furosemide [Lasix] 40 mg PO DAILY Discontinued Bumetanide [BUMEX] 2 mg PO DAILY 30 Days #60 tab Warfarin [Coumadin] 3 mg PO DAILY Discharge Medication List Albuterol Sulfate [Proair Hfa] 2 puff INHALATION RT-Q6H PRN 07/28/19 [History] Ascorbic Acid [Vitamin C] 500 mg PO DAILY 05/08/21 [History] Cholecalciferol (Vitamin D3) [Vitamin D3 (125 MCG = 5,000 IU)] 125 mcg PO DAILY 06/06/22 [History] Ipratropium-Albuterol Nebulize [Duoneb 0.5 mg-3 mg/3 ml Soln] 3 ml INHALATION RT-Q6H PRN 06/06/22 [History] Fluticasone Propion/Salmeterol [Advair 100-50 Diskus] 1 puff INHALATION RT-BID 06/07/23 [History] HYDROcodone/APAP 10-325MG [[place] 10-325] 1 tab PO Q8H PRN 06/28/23 [History] Sildenafil [Revatio] 20 mg PO TID 90 Days #30 tab 07/02/23 [Rx] Levothyroxine Sodium [Synthroid] 150 mcg PO AC-BRKFST 30 Days #30 tablet 08/27/23 [Rx] Metoprolol Tartrate [Lopressor] 50 mg PO BID 30 Days #60 tab 08/27/23 [Rx] Furosemide [Lasix] 40 mg PO DAILY 09/04/23 [History] Warfarin [Coumadin] 2.5 mg PO ONCE@1800 30 Days #30 tab 09/09/23 [Rx] Follow up Appointment(s)/Referral(s): Olya Olson MD [Primary Care Provider] - 1-2 days [facility] Visiting Nurse, [NON-STAFF] - Patient Instructions/Handouts: Heart Failure (DC), Atrial Flutter (DC) Activity/Diet/Wound Care/Special Instructions: heart healthy diet activity limited until follow up
[2023-09-09 13:53] VITALS: BP 93/57; PULSE 72; TEMP 98.1
[2023-09-09] MEDS ORDERED: WARFARIN 2.5 MG TAB PO ONE (18:00)
== END 2023-09-09 14:13 | disposition home or self-care (01) | DRG 292 ==
LOC: EC 17:40 → 3SCARD 20:46
PROVIDERS: ADMIT Internal Medicine; ATTEND Internal Medicine
DX: I50.23 Acute on chronic systolic (congestive) heart failure (principal); I42.8 Other cardiomyopathies; I47.10 Supraventricular tachycardia, unspecified; I48.19 Other persistent atrial fibrillation; I48.3 Typical atrial flutter; D50.9 Iron deficiency anemia, unspecified; J44.9 Chronic obstructive pulmonary disease, unspecified; Z99.81 Dependence on supplemental oxygen; Z87.442 Personal history of urinary calculi; Z87.440 Personal history of urinary (tract) infections; M19.90 Unspecified osteoarthritis, unspecified site; I08.0 Rheumatic disorders of both mitral and aortic valves; I95.9 Hypotension, unspecified; I25.10 Atherosclerotic heart disease of native coronary artery without angina pectoris; Z95.1 Presence of aortocoronary bypass graft; E89.0 Postprocedural hypothyroidism; Z95.2 Presence of prosthetic heart valve; Z79.01 Long term (current) use of anticoagulants; I27.20 Pulmonary hypertension, unspecified; M06.9 Rheumatoid arthritis, unspecified; Z96.642 Presence of left artificial hip joint; N18.9 Chronic kidney disease, unspecified; Z96.653 Presence of artificial knee joint, bilateral; K21.9 Gastro-esophageal reflux disease without esophagitis; Z96.611 Presence of right artificial shoulder joint; Z11.52 Encounter for screening for COVID-19; Z79.890 Hormone replacement therapy; Z79.899 Other long term (current) drug therapy; Z98.1 Arthrodesis status; Z82.49 Family history of ischemic heart disease and other diseases of the circulatory system
CPT/HCPCS: 36415; 51702; 71046; 76705; 80053; 83735; 83880; 84443; 84484; 85025; 85610; 85730; 87636; 93005; 94640; 94760; 96361; 96374; 96375; 96376; 99291

== ENCOUNTER 2023-09-11 15:06 | Inpatient (IN) | payer MEDICARE, OTHER ==
[2023-09-11] MEDS ORDERED: IPRATROPIUM-ALBUTEROL 3 ML NEB INHALATION STA (15:18)
--- NOTE | 2023-09-11 15:20 | ED ---
SOB HPI - General Chief Complaint: Shortness of Breath Stated Complaint: SOB Time Seen by Provider: 09/11/23 15:17 Source: EMS, RN notes reviewed, old records reviewed Mode of arrival: EMS Limitations: no limitations - History of Present Illness Initial Comments: This is an 78-year-old female to the emergency department for severe shortness of breath racing heart and does not fill up. Patient has recent hospital admission for multiple different breathing issues but main culprit the nature fibrillation with RVR which she is presenting with today. Patient feels lightheaded and dizzy, feels like her heart is racing MD Complaint: shortness of breath, cough, chest pain, anxiety Severity: severe Severity scale (1-10): 10 Quality: aching, throbbing Consistency: constant Improves With: nothing Worsens With: nothing Known History Of: COPD, congestive heart failure Context: recent URI Associated Symptoms: chest pain, pain with inspiration, palpitations Treatments Prior to Arrival: none - Related Data Home Medications Medication Instructions Recorded Confirmed Albuterol Sulfate [Proair Hfa] 2 puff INHALATION RT-Q6H PRN 07/28/19 09/18/23 Ascorbic Acid [Vitamin C] 500 mg PO DAILY 05/08/21 09/18/23 Cholecalciferol (Vitamin D3) 125 mcg PO DAILY 06/06/22 09/18/23 [Vitamin D3 (125 MCG = 5,000 IU)] Ipratropium-Albuterol Nebulize 3 ml INHALATION RT-Q6H PRN 06/06/22 09/18/23 [Duoneb 0.5 mg-3 mg/3 ml Soln] Fluticasone Propion/Salmeterol 1 puff INHALATION RT-BID 06/07/23 09/18/23 [Advair 100-50 Diskus] Furosemide [Lasix] 40 mg PO DAILY 09/04/23 09/18/23 Previous Rx's Medication Instructions Recorded Sildenafil [Revatio] 20 mg PO TID 90 Days #30 tab 07/02/23 Levothyroxine Sodium [Synthroid] 150 mcg PO AC-BRKFST 30 Days #30 08/27/23 tablet Metoprolol Tartrate [Lopressor] 50 mg PO BID 30 Days #60 tab 08/27/23 HYDROcodone/APAP 10-325MG [[place] 1 tab PO Q8H PRN 3 Days #12 tab 09/14/23 10-325] Warfarin [Coumadin] 3 mg PO DAILY 30 Days #30 tab 09/14/23 Allergies Allergy/AdvReac Type Severity Reaction Status Date / Time lisinopril Allergy Unknown Verified 09/18/23 21:56 Review of Systems ROS Statement: Those systems with pertinent positive or pertinent negative responses have been documented in the HPI. ROS Other: All systems not noted in ROS Statement are negative. Past Medical History Past Medical History: Atrial Fibrillation, Heart Failure, COPD, GERD/Reflux, Osteoarthritis (OA), Renal Disease, Rheumatoid Arthritis (RA), Supraventricular Tachycardia (SVT), Thyroid Disorder Additional Past Medical History / Comment(s): Valvular heart disease with previous aortic valve replacement and a mitral valve repair, congestion heart failure, Paroxysmal Afib, history of SVT, history of nonsustained VT, SOB with exertion, home O2 at 2L/NC usually prn but lately ATC, arthritis, RA several karla ints, current L elbow pain/swelling-had "injection", nephrolithiasis, hypothyroid, diverticular dx, UTI, iron deficiency anemia. 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 History of Any Multi-Drug Resistant Organisms: None Reported Past Surgical History: Coronary Bypass/CABG, Heart Catheterization, Hysterectomy, Joint Replacement, Orthopedic Surgery Additional Past Surgical History / Comment(s): Geoff total knees arthroplasty,lt hip arthroplasty, goiter removed 1962, partial thyroidectomy, cataracts removed with lens implants, REVERSE TOTAL RIGHT SHOULDER; Rotator cuff R shoulder, cervical fusion/injections, colonoscopy 2016(next after 5yr), MATTHEW, valve surgery at [facility] 10/13/17 Prosthetic Aortic valve and mitral valve repair. Total abdominal hysterectomy in the 1980s. Past Anesthesia/Blood Transfusion Reactions: Postoperative Nausea & Vomiting (PONV) Past Psychological History: No Psychological Hx Reported Smoking Status: Former smoker Past Alcohol Use History: None Reported Past Drug Use History: None Reported - Past Family History Father Family Medical History: Cancer, Myocardial Infarction ([place]) Additional Family Medical History / Comment(s): in his 80's of a mi. Colon cancer. Mother Family Medical History: No Reported History Additional Family Medical History / Comment(s): age 88 . hx smoking. Daughter(s) Family Medical History: Cancer Additional Family Medical History / Comment(s): from vulvar cancer. General Exam Limitations: no limitations General appearance: alert, in no apparent distress, anxious, in distress Head exam: Present: atraumatic, normocephalic, normal inspection Eye exam: Present: normal appearance, PERRL, EOMI. Absent: scleral icterus, conjunctival injection, periorbital swelling ENT exam: Present: normal exam, mucous membranes moist Neck exam: Present: normal inspection. Absent: tenderness, meningismus, lymphadenopathy Respiratory exam: Present: respiratory distress, wheezes, accessory muscle use, decreased breath sounds, prolonged expiratory. Absent: rales, rhonchi, stridor Cardiovascular Exam: Present: tachycardia, irregular rhythm, normal heart sounds. Absent: systolic murmur, diastolic murmur, rubs, gallop, clicks GI/Abdominal exam: Present: soft, normal bowel sounds. Absent: distended, tenderness, guarding, rebound, rigid Extremities exam: Present: normal inspection, full ROM, normal capillary refill. Absent: tenderness, pedal edema, joint swelling, calf tenderness Back exam: Present: normal inspection Neurological exam: Present: alert, oriented X3, CN II-XII intact Psychiatric exam: Present: normal affect, normal mood Skin exam: Present: warm, dry, intact, normal color. Absent: rash Course Vital Signs 09/11/23 09/11/23 09/11/23 15:08 17:50 18:29 Temperature 97.9 F Pulse Rate 134 H 101 H 92 Respiratory 16 18 16 Rate Blood Pressure 156/76 112/62 92/54 O2 Sat by Pulse 97 93 L 98 Oximetry 09/11/23 09/11/23 09/11/23 19:20 20:28 22:00 Temperature 98.8 F Pulse Rate 102 H 111 H 114 H Respiratory 16 16 18 Rate Blood Pressure 92/71 97/69 105/75 O2 Sat by Pulse 95 95 97 Oximetry 09/11/23 09/12/23 09/12/23 23:12 00:00 01:36 Temperature Pulse Rate 105 H 96 104 H Respiratory 20 20 16 Rate Blood Pressure 113/88 96/63 117/73 O2 Sat by Pulse 95 Oximetry 09/12/23 09/12/23 09/12/23 03:02 04:27 05:39 Temperature 98.7 F 98.1 F Pulse Rate 105 H 95 89 Respiratory 16 16 16 Rate Blood Pressure 112/61 110/49 114/83 O2 Sat by Pulse 96 97 96 Oximetry 09/12/23 09/12/23 09/12/23 08:40 10:55 11:00 Temperature Pulse Rate 94 89 Respiratory 20 20 Rate Blood Pressure 107/66 107/66 O2 Sat by Pulse 96 94 L 95 Oximetry 09/12/23 09/12/23 09/12/23 12:00 13:00 14:00 Temperature Pulse Rate 88 112 H 90 Respiratory 20 20 18 Rate Blood Pressure 113/54 120/74 129/98 O2 Sat by Pulse 96 93 L 97 Oximetry 09/12/23 15:43 Temperature 98.0 F Pulse Rate 89 Respiratory 18 Rate Blood Pressure 122/91 O2 Sat by Pulse 98 Oximetry - Reevaluation(s) Reevaluation #1: 09/11/23 21:15 Medical records reviewed Reevaluation #2: 09/11/23 21:15 Patient symptoms are improving Reevaluation #3: 09/11/23 21:15 Patient informed results and questions answered Reevaluation #4: 09/11/23 21:15 Was pt. sent in by a medical professional or institution (, PA, CLINICAL TRIAL HEAD, urgent care, hospital, or prison...) When possible be specific @ -no Did you speak to anyone other than the patient for history (EMS, parent, family, police, friend...)? What history was obtained from this source @ -no Did you review nursing and triage notes (agree or disagree)? Why? @ -agree Are old charts reviewed (outside hosp., previous admission, EMS record, old EKG, old radiological studies, urgent care reports/EKG's, prison records)? Report findings @ -yes Differential Diagnosis (chest pain, altered mental status, abdominal pain women, abdominal pain men, vaginal bleeding, weakness, fever, dyspnea, syncope, headache, dizziness, GI bleed, back pain, seizure, CVA, palpatations, mental health, musculoskeletal)? @ -prior EKG interpreted by me (3pts min.). @ -yes X-rays interpreted by me (1pt min.). @ -yes significant for CHF CT interpreted by me (1pt min.). @ -no U/S interpreted by me (1pt. min.). @ -no What testing was considered but not performed or refused? (CT, X-rays, U/S, labs)? Why? @ -none What meds were considered but not given or refused? Why? @ -none Did you discuss the management of the patient with other professionals (professionals i.e. , PA, CLINICAL TRIAL HEAD, lab, RT, psych nurse, licensed clinical social worker, seat builder, teacher, residential care officer, rn case manager)? Give summary @ -no Was smoking cessation discussed for >3mins.? @ -no Was critical care preformed (if so, how long)? @ -yes31 Were there social determinants of health that impacted care today? How? (Homelessness, low income, unemployed, alcoholism, drug addiction, transportation, low edu. Level, literacy, decrease access to med. care, correction, rehab)? @ -none Was there de-escalation of care discussed even if they declined (Discuss DNR or withdrawal of care, Hospice)? DNR status @ -no What co-morbidities impacted this encounter? (DM, HTN, Smoking, COPD, CAD, Cancer, CVA, ARF, Chemo, Hep., AIDS, mental health diagnosis, sleep apnea, morbid obesity)? @ -none Was patient admitted / discharged? Hospital course, mention meds given and route, prescriptions, significant lab abnormalities, going to OR and other pertinent info. @ - 78 female to the emergency department for evaluation of severe shortness of breath H a fibrillation with RVR, CHF COPD hypoxia. Patient be admitted for supportive care Admitted Undiagnosed new problem with uncertain prognosis? @ -no Drug Therapy requiring intensive monitoring for toxicity (Heparin, Nitro, Insulin, Cardizem)? @ -no Were any procedures done? @ -no Diagnosis/symptom? @ -A. fib with RVR CHF COPD hypoxia, respiratory failure Acute, or Chronic, or Acute on Chronic? @ -Acute Uncomplicated (without systemic symptoms) or Complicated (systemic symptoms)? @ -Complicated Side effects of treatment? @ -no Exacerbation, Progression, or Severe Exacerbation? @ -exacerbation Poses a threat to life or bodily function? How? (Chest pain, [place], [place], pneumonia, PE, COPD, DKA, ARF, appy, cholecystitis, CVA, Diverticulitis, Homicidal, Suicidal, threat to staff... and all critical care pts) @ -yes with multifactorial respiratory failure Reevaluation #5: 09/11/23 21:15 Differential Dyspnea: Coronary syndrome, arrhythmia, tamponade, asthma, COPD, pulmonary embolism, pneumonia, pneumothorax, pulmonary effusion, anaphylaxis, diabetic ketoacidosis, flailed chest, pulmonary contusion, diaphragmatic rupture, anemia, neuromuscular, this is not meant to be an all-inclusive list. - Consultations Consultation #1: Spoke with [facility] we'll admit this patient Medical Decision Making - Medical Decision Making 78 female to the emergency department for evaluation of severe shortness of breath H a fibrillation with RVR, CHF COPD hypoxia. Patient be admitted for supportive care - Lab Data Result diagrams: 09/14/23 11:03 09/14/23 11:03 Lab Results 09/11/23 09/11/23 09/11/23 Range/Units 15:22 15:22 15:22 WBC 7.8 (3.8-10.6) k/uL RBC 3.88 (3.80-5.40) m/uL Hgb 11.3 L (11.4-16.0) gm/dL Hct 36.3 (34.0-46.0) % MCV 93.6 (80.0-100.0) fL MCH 29.3 (25.0-35.0) pg MCHC 31.3 (31.0-37.0) g/dL RDW 14.9 (11.5-15.5) % Plt Count 235 (150-450) k/uL MPV 8.1 Neutrophils % 72 % Lymphocytes % 17 % Monocytes % 4 % Eosinophils % 3 % Basophils % 1 % Neutrophils # 5.6 (1.3-7.7) k/uL Lymphocytes # 1.3 (1.0-4.8) k/uL Monocytes # 0.3 (0-1.0) k/uL Eosinophils # 0.2 (0-0.7) k/uL Basophils # 0.1 (0-0.2) k/uL Hypochromasia Marked PT 13.3 H (10.0-12.5) sec INR 1.3 H (<1.2) APTT 26.3 (22.0-30.0) sec Sodium 143 (137-145) mmol/L Potassium 3.5 (3.5-5.1) mmol/L Chloride 102 (98-107) mmol/L Carbon Dioxide 31 H (22-30) mmol/L Anion Gap 10 mmol/L BUN 18 H (7-17) mg/dL Creatinine 0.53 (0.52-1.04) mg/dL Est GFR (CKD-EPI)AfAm >90 (>60 ml/min/1.73 sqM) Est GFR (CKD-EPI)NonAf >90 (>60 ml/min/1.73 sqM) Glucose 149 H (74-99) mg/dL Lactic Ac Sepsis Rflx Plasma Lactic Acid Wilferd (0.7-2.0) mmol/L Calcium 8.9 (8.4-10.2) mg/dL Phosphorus 2.9 (2.5-4.5) mg/dL Magnesium 1.9 (1.6-2.3) mg/dL Total Bilirubin 1.3 (0.2-1.3) mg/dL AST 45 H (14-36) U/L ALT 126 H (4-34) U/L Alkaline Phosphatase 163 H (38-126) U/L Troponin I (0.000-0.034) ng/mL NT-Pro-B Natriuret Pep 5050 pg/mL Total Protein 7.1 (6.3-8.2) g/dL Albumin 3.7 (3.5-5.0) g/dL TSH 9.500 H (0.465-4.680) mIU/L 09/11/23 09/11/23 09/11/23 Range/Units 15:22 15:22 16:24 WBC (3.8-10.6) k/uL RBC (3.80-5.40) m/uL Hgb (11.4-16.0) gm/dL Hct (34.0-46.0) % MCV (80.0-100.0) fL MCH (25.0-35.0) pg MCHC (31.0-37.0) g/dL RDW (11.5-15.5) % Plt Count (150-450) k/uL MPV Neutrophils % % Lymphocytes % % Monocytes % % Eosinophils % % Basophils % % Neutrophils # (1.3-7.7) k/uL Lymphocytes # (1.0-4.8) k/uL Monocytes # (0-1.0) k/uL Eosinophils # (0-0.7) k/uL Basophils # (0-0.2) k/uL Hypochromasia PT (10.0-12.5) sec INR (<1.2) APTT (22.0-30.0) sec Sodium (137-145) mmol/L Potassium (3.5-5.1) mmol/L Chloride (98-107) mmol/L Carbon Dioxide (22-30) mmol/L Anion Gap mmol/L BUN (7-17) mg/dL Creatinine (0.52-1.04) mg/dL Est GFR (CKD-EPI)AfAm (>60 ml/min/1.73 sqM) Est GFR (CKD-EPI)NonAf (>60 ml/min/1.73 sqM) Glucose (74-99) mg/dL Lactic Ac Sepsis Rflx Y Plasma Lactic Acid Wilfred 2.2 H* (0.7-2.0) mmol/L Calcium (8.4-10.2) mg/dL Phosphorus (2.5-4.5) mg/dL Magnesium (1.6-2.3) mg/dL Total Bilirubin (0.2-1.3) mg/dL AST (14-36) U/L ALT (4-34) U/L Alkaline Phosphatase (38-126) U/L Troponin I <0.012 (0.000-0.034) ng/mL NT-Pro-B Natriuret Pep pg/mL Total Protein (6.3-8.2) g/dL Albumin (3.5-5.0) g/dL TSH (0.465-4.680) mIU/L - EKG Data -: EKG Interpreted by Me (EKG on her 134 QRS 101 QTC 448) - Radiology Data Radiology results: report reviewed (Chest x-rays positive for CHF), image reviewed Critical Care Time Critical Care Time: Yes Total Critical Care Time: 31 Disposition Clinical Impression: COPD (chronic obstructive pulmonary disease), Acute on chronic systolic (congestive) heart failure, Mitral and aortic valve regurgitation, Aortic insufficiency, Systolic heart failure, Hypoxia, Anxiety, Acute exacerbation of chronic obstructive airways disease, CHF exacerbation Disposition: ADMITTED IP TO THIS HOSP Condition: Stable Is patient prescribed a controlled substance at d/c from ED?: No Time of Disposition: 18:00
[2023-09-11] MEDS ORDERED: DILTIAZEM DRIP BOLUS FROM BAG 1 MG SOLN IV ONE (15:39)
[2023-09-11] MEDS ORDERED: DILTIAZEM 125 MG in SODIUM CHLORIDE 0.9% 100 ML IV SCH (15:45)
[2023-09-11 15:57] LABS: Basophils # (A) 0.1 k/uL (0-0.2); Basophils % (A) 1 %; Eosinophils # (A) 0.2 k/uL (0-0.7); Eosinophils % (A) 3 %; HCT 36.3 % (34.0-46.0); HGB 11.3 gm/dL (11.4-16.0); Hypochromasia Marked; Lymphocytes # (A) 1.3 k/uL (1.0-4.8); Lymphocytes % (A) 17 %; MCH 29.3 pg (25.0-35.0); MCHC 31.3 g/dL (31.0-37.0); MCV 93.6 fL (80.0-100.0); Mean Platelet Volume 8.1; Monocytes # (A) 0.3 k/uL (0-1.0); Monocytes % (A) 4 %; Neutrophils # (A) 5.6 k/uL (1.3-7.7); Neutrophils % (A) 72 %; Platelet Count 235 k/uL (150-450); RBC 3.88 m/uL (3.80-5.40); RDW 14.9 % (11.5-15.5); WBC 7.8 k/uL (3.8-10.6)
[2023-09-11 16:12] LABS: ALT 126 U/L (4-34); AST 45 U/L (14-36); African American GFR (CKD) >90 (>60 ml/min/1.73 sqM); Albumin 3.7 g/dL (3.5-5.0); Alkaline Phosphatase 163 U/L (38-126); Anion Gap 10 mmol/L; Blood Urea Nitrogen 18 mg/dL (7-17); Calcium 8.9 mg/dL (8.4-10.2); Carbon Dioxide 31 mmol/L (22-30); Chloride 102 mmol/L (98-107); Glucose 149 mg/dL (74-99); Magnesium 1.9 mg/dL (1.6-2.3); Non-African American GFR(CKD) >90 (>60 ml/min/1.73 sqM); Phosphorus 2.9 mg/dL (2.5-4.5); Potassium 3.5 mmol/L (3.5-5.1); Sodium 143 mmol/L (137-145); Total Bilirubin 1.3 mg/dL (0.2-1.3); Total Protein 7.1 g/dL (6.3-8.2)
--- NOTE | 2023-09-11 16:12 | XR ---
EXAMINATION TYPE: XR chest 1V portable DATE OF EXAM: 09/11/2023 Comparison: 09/04/2023 Clinical History: 78-year-old female sob Findings: Reverse right shoulder arthroplasty. Median sternotomy wires. Prosthetic aortic valve. Dense mitral a nnular calcifications. Heart mildly enlarged with diffuse interstitial densities and small left pleur al effusion. Overall similar appearance. Possibly minimally improving aeration on the right. Impression: Correlate for CHF with patchy interstitial pulmonary edema. Small left effusion with adjacent atelect asis and/or consolidation.
[2023-09-11 16:13] LABS: INR 1.3 (<1.2); Partial Thromboplastin Time 26.3 sec (22.0-30.0); Prothrombin Time 13.3 sec (10.0-12.5)
[2023-09-11 16:20] LABS: NT-Pro-B-Type Natriuretic Pept 5050 pg/mL
[2023-09-11] MEDS ORDERED: ONDANSETRON 4 MG/2 ML VIAL IVP PRN (17:54)
[2023-09-11] MEDS ORDERED: NALOXONE 0.4 MG/ML 1 ML VIAL IV PRN (17:54)
[2023-09-11] MEDS: SODIUM CHLORIDE 0.9% 1,000 ML IV SCH (19:26)
[2023-09-12] MEDS: SODIUM CHLORIDE 0.9% 1,000 ML IV SCH ×4 (00:46→22:56)
[2023-09-12] MEDS ORDERED: ACETAMINOPHEN TAB 325 MG TAB PO PRN (02:13)
[2023-09-12] MEDS ORDERED: HYDROcodone/APAP 10-325MG 1 EACH TAB PO PRN (08:55)
[2023-09-12] MEDS ORDERED: IPRATROPIUM-ALBUTEROL 3 ML NEB INHALATION PRN (08:55)
[2023-09-12] MEDS ORDERED: ALBUTEROL HFA INHALER INHALATION PRN (08:55)
[2023-09-12] MEDS: FUROSEMIDE 40 MG TAB PO SCH (10:49)
[2023-09-12] MEDS: ASCORBIC ACID 500 MG TAB PO SCH (10:50)
[2023-09-12] MEDS: CHOLECALCIFEROL 125 MCG (5000 IU) TABLET PO SCH (10:50)
[2023-09-12 10:53] LABS: INR 1.3 (<1.2); Prothrombin Time 13.5 sec (10.0-12.5)
--- NOTE | 2023-09-12 11:22 | P.HPIM ---
History of Present Illness H&P Date: 09/12/23 This is an 78-year-old female patient was well-known to my services who presented with concerns of shortness of breath and racing heartbeat. Patient was recently hospitalized and was discharged. Patient reports that she does feel lightheaded and dizzy. EKG completed showing atrial flutter tachycardia with rapid ventricular response. Chest x-ray completed showing correlation for CHF with patchy interstitial pulmonary edema. Small left effusion with adjacent atelectasis and or consolidation. Troponin negative. Initial lactic acid 2.3. Patient has past medical history of A. fib maintained on Coumadin, heart failure, COPD, GERD, osteoarthritis, renal disease, rheumatoid arthritis, thyroi d disorder, heart cath, ex-smoker. Patient is maintained on home O2 2 L. Patient is currently on Cardizem drip. Cardiology and pulmonary service is consulted. Current vital signs temp 98.1, heart rate 89, respiratory rate 16, blood pressure 114/83 with pulse ox 96% on 3 L. Patient denies chest pain. Patient denies nausea vomiting or diarrhea. Patient denies any urinary burning or frequency Review of Systems Please refer to HPI otherwise unremarkable Past Medical History Past Medical History: Atrial Fibrillation, Heart Failure, COPD, GERD/Reflux, Osteoarthritis (OA), Renal Disease, Rheumatoid Arthritis (RA), Supraventricular Tachycardia (SVT), Thyroid Disorder Additional Past Medical History / Comment(s): Valvular heart disease with previous aortic valve replacement and a mitral valve repair, congestion heart failure, Paroxysmal Afib, history of SVT, history of nonsustained VT, SOB with e xertion, home O2 at 2L/NC usually prn but lately ATC, arthritis, RA several joints, current L elbow pain/swelling-had "injection", nephrolithiasis, hypothyroid, diverticular dx, UTI, iron deficiency anemia. 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 History of Any Multi-Drug Resistant Organisms: None Reported Past Surgical History: Coronary Bypass/CABG, Heart Catheterization, Hysterectomy, Joint Replacement, Orthopedic Surgery Additional Past Surgical History / Comment(s): Geoff total knees arthroplasty,lt hip arthroplasty, goiter removed 1962, partial thyroidectomy, cataracts removed with lens implants, REVERSE TOTAL RIGHT SHOULDER; Rotator cuff R shoulder, cervical fusion/injections, colonoscopy 2017(next after 5yr), MATTHEW, valve surgery at [facility] 10/13/17 Prosthetic Aortic valve and mitral valve repair. Total abdominal hysterectomy in the 1980s. Past Anesthesia/Blood Transfusion Reactions: Postoperative Nausea & Vomiting (PONV) Past Psychological History: No Psychological Hx Reported Smoking Status: Former smoker Past Alcohol Use History: None Reported Past Drug Use History: None Reported - Past Family History Father Family Medical History: Cancer, Myocardial Infarction ([place]) Additional Family Medical History / Comment(s): in his 80's of a mi. Colon cancer. Mother Family Medical History: No Reported History Additional Family Medical History / Comment(s): age 88 . hx smoking. Daughter(s) Family Medical History: Cancer Additional Family Medical History / Comment(s): from vulvar cancer. Medications and Allergies Home Medications Medication Instructions Recorded Confirmed Type Albuterol Sulfate [Proair Hfa] 2 puff INHALATION RT-Q6H PRN 07/28/19 09/11/23 History Ascorbic Acid [Vitamin C] 500 mg PO DAILY 05/08/21 09/11/23 History Cholecalciferol (Vitamin D3) 125 mcg PO DAILY 06/06/22 09/11/23 History [Vitamin D3 (125 MCG = 5,000 IU)] Ipratropium-Albuterol Nebulize 3 ml INHALATION RT-Q6H PRN 06/06/22 09/11/23 History [Duoneb 0.5 mg-3 mg/3 ml Soln] Fluticasone Propion/Salmeterol 1 puff INHALATION RT-BID 06/07/23 09/11/23 History [Advair 100-50 Diskus] HYDROcodone/APAP 10-325MG [[place] 1 tab PO Q8H PRN 06/28/23 09/11/23 History 10-325] Sildenafil [Revatio] 20 mg PO TID 90 Days #30 tab 07/02/23 09/11/23 Rx Levothyroxine Sodium [Synthroid] 150 mcg PO AC-BRKFST 30 Days #30 08/27/23 09/11/23 Rx tablet Metoprolol Tartrate [Lopressor] 50 mg PO BID 30 Days #60 tab 08/27/23 09/11/23 Rx Furosemide [Lasix] 40 mg PO DAILY 09/04/23 09/11/23 History Warfarin [Coumadin] 2.5 mg PO HS 09/11/23 09/11/23 History Allergies Allergy/AdvReac Type Severity Reaction Status Date / Time lisinopril Allergy Unknown Verified 09/11/23 17:53 Physical Exam Vitals: Vital Signs Temp Pulse Resp BP Pulse Ox 09/12/23 08:40 96 09/12/23 05:39 98.1 F 89 16 114/83 96 09/12/23 04:27 95 16 110/49 97 09/12/23 03:02 98.7 F 105 H 16 112/61 96 09/12/23 01:36 104 H 16 117/73 95 09/12/23 00:00 96 20 96/63 09/11/23 23:12 105 H 20 113/88 09/11/23 22:00 114 H 18 105/75 97 09/11/23 20:28 111 H 16 97/69 95 09/11/23 19:20 98.8 F 102 H 16 92/71 95 09/11/23 18:29 92 16 92/54 98 09/11/23 17:50 101 H 18 112/62 93 L 09/11/23 15:08 97.9 F 134 H 16 156/76 97 Intake and Output 09/11/23 09/12/23 09/12/23 22:59 06:59 14:59 Other: Weight 46.72 kg Head normocephalic Neck supple Lungs clear to auscultation bilaterally no wheezing or crackles Heart irregular heart rate known atrial fibrillation Abdomen is soft nontender nondistended positive bowel sounds no hepatosplenome darrell Extremities no edema Neuro alert and orientated to 3 Results CBC & Chem 7: 09/11/23 15:22 09/11/23 15:22 Labs: Abnormal Lab Results - Last 24 Hours (Table) 09/11/23 09/11/23 09/11/23 Range/Units 15:22 15:22 15:22 Hgb 11.3 L (11.4-16.0) gm/dL PT 13.3 H (10.0-12.5) sec INR 1.3 H (<1.2) Carbon Dioxide 31 H (22-30) mmol/L BUN 18 H (7-17) mg/dL Glucose 149 H (74-99) mg/dL Plasma Lactic Acid Wilfred (0.7-2.0) mmol/L AST 45 H (14-36) U/L ALT 126 H (4-34) U/L Alkaline Phosphatase 163 H (38-126) U/L TSH 9.500 H (0.465-4.680) mIU/L 09/11/23 09/11/23 09/12/23 Range/Units 15:22 18:15 10:17 Hgb (11.4-16.0) gm/dL PT 13.5 H (10.0-12.5) sec INR 1.3 H (<1.2) Carbon Dioxide (22-30) mmol/L BUN (7-17) mg/dL Glucose (74-99) mg/dL Plasma Lactic Acid Wilfred 2.2 H* 2.3 H* (0.7-2.0) mmol/L AST (14-36) U/L ALT (4-34) U/L Alkaline Phosphatase (38-126) U/L TSH (0.465-4.680) mIU/L Assessment and Plan Assessment: 1. A. fib with RVR 2. Acute on chronic systolic congestive heart failure 3. History of paroxysmal atrial fibrillation maintained on Coumadin 4. History of valvular heart disease history of aortic valve replacement and mitral valve repair 5. History of pulmonary hypertension 6. History of COPD 7. History of hypothyroidism. TSH level elevated. Patient's recent level 2.670 on 09/04/2023 dose also recently adjusted in August will continue current dose at this time 8. History of rheumatoid arthritis 9. History of chronic kidney disease DVT prophylaxis Coumadin. GI prophylaxis Protonix Patient started on IV Cardizem Cardiology and pulmonary service is consulted Home meds resumed Repeat labs ordered Time with Patient: Greater than 30 (Greater than 60% of the total time spent in counseling and coordination of care)
[2023-09-12] MEDS: METOPROLOL TARTRATE 50 MG TAB PO SCH ×3 (11:25→20:37)
--- NOTE | 2023-09-12 11:52 | P.CRDCN ---
History of Present Illness History of present illness: HISTORY OF PRESENT ILLNESS: This is a 78-year-old female with a past medical history significant for normal coronary arteries, mitral valve repair and aortic valve replacement in 2018, persistent atrial fibrillation, congestive heart failure, and hypothyroidism. Patient follows in the office with Dr. Flores. We have been asked to see the patient in consultation for A. fib with RVR. Patient examined at the bedside in the emergency room. Patient states she came to the emergency room because her visiting nurse found her to be tachycardic. The patient denies having any palpitations. She denies any shortness of breath or cough. She denies any chest pain or pressure. At the time of examination she remains in atrial fibrillation with a heart rate in the 80s. She is on IV Cardizem at 5 mg an hour. Patient's blood pressures are borderline soft with a systolic around 90. The patient states she has not taken her medications for the past 1-2 days including her metoprolol and her Coumadin. * EKG reveals A. fib with RVR * Chest xray correlate for CHF with patchy interstitial pulmonary edema. Small left effusion with adjacent atelectasis and/or consolidation * Laboratory data: Troponin negative 3. ProBNP 5050. * Most recent echocardiogram obtained in June 2023 revealed ejection fraction 30-35%, severe pulmonary hypertension, bioprosthetic aortic valve, and mitral valve repair with mild MR * Cardiac catheterization history: October 2017 revealing normal coronary arteries REVIEW OF SYSTEMS: At the time of my exam: CONSTITUTIONAL: Denies fever or chills. HEENT: Denies blurred vision, vision changes, or eye pain. Denies hemoptysis CARDIOVASCULAR: Denies chest pain. Denies orthopnea. Denies PND. Denies palpita tions RESPIRATORY: Denies shortness of breath. GASTROINTESTINAL: Denies abdominal pain. Denies nausea or vomiting. HEMATOLOGIC: Denies bleeding disorders. GENITOURINARY: Denies any blood in urine. SKIN: Denies pruitis. Denies rash. PHYSICAL EXAM: VITAL SIGNS: Reviewed. GENERAL: Well-developed in no acute distress. HEENT: Head is normocephalic. Pupils are equal, round. Sclerae anicteric. Mucous membranes of the mouth are moist. Neck supple. No JVD or thyromegaly LUNGS: Respirations even and unlabored. Lungs essentially clear to auscultation bilaterally. HEART: Irregular rate and rhythm. S1 and S2 heard. Systolic murmur noted ABDOMEN: Soft. Nondistended. Nontender. EXTREMITIES: Normal range of motion. No clubbing or cyanosis. Peripheral pulses intact. Trace bilateral lower extremity edema NEUROLOGIC: Awake and alert. Oriented x 3. ASSESSMENT: Persistent atrial fibrillation/typical atrial flutter with mild RVR Subtherapeutic INR History of mitral valve repair and bioprosthetic aortic valve replacement, 2018 Normal coronary arteries Congestive heart failure with reduced EF, 3035%, currently euvolemic Hypothyroidism PLAN: Patient states she has not taken her medications for the past 1-2 days Resume metoprolol. Anticipate improvement in heart rate after receiving metoprolol Discontinue IV Cardizem Continue additional cardiac medications Patient may be discharged home this afternoon from a cardiac standpoint Nurse practitioner note has been reviewed by physician. Signing provider agrees with the documented findings, assessment, and plan of care. Past Medical History Past Medical History: Atrial Fibrillation, Heart Failure, COPD, GERD/Reflux, Osteoarthritis (OA), Renal Disease, Rheumatoid Arthritis (RA), Supraventricular Tachycardia (SVT), Thyroid Disorder Additional Past Medical History / Comment(s): Valvular heart disease with previous aortic valve replacement and a mitral valve repair, congestion heart failure, Paroxysmal Afib, history of SVT, history of nonsustained VT, SOB with exertion, home O2 at 2L/NC usually prn but lately ATC, arthritis, RA several joints, current L elbow pain/swelling-had "injection", nephrolithiasis, hypothyroid, diverticular dx, UTI, iron deficiency anemia. 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 History of Any Multi-Drug Resistant Organisms: None Reported Past Surgical History: Coronary Bypass/CABG, Heart Catheterization, Hysterectomy, Joint Replacement, Orthopedic Surgery Additional Past Surgical History / Comment(s): Geoff total knees arthroplasty,lt hip arthroplasty, goiter removed 1962, partial thyroidectomy, cataracts removed with lens implants, REVERSE TOTAL RIGHT SHOULDER; Rotator cuff R shoulder, cervical fusion/injections, colonoscopy 2016(next after 5yr), MATTHEW, valve surgery at [facility] 10/13/17 Prosthetic Aortic valve and mitral valve repair. Total abdominal hysterectomy in the 1980s. Past Anesthesia/Blood Transfusion Reactions: Postoperative Nausea & Vomiting (PONV) Past Psychological History: No Psychological Hx Reported Smoking Status: Former smoker Past Alcohol Use History: None Reported Past Drug Use History: None Reported - Past Family History Father Family Medical History: Cancer, Myocardial Infarction ([place]) Additional Family Medical History / Comment(s): in his 80's of a mi. Colon cancer. Mother Family Medical History: No Reported History Additional Family Medical History / Comment(s): age 88 . hx smoking. Daughter(s) Family Medical History: Cancer Additional Family Medical History / Comment(s): from vulvar cancer. Medications and Allergies Home Medications Medication Instructions Recorded Confirmed Type Albuterol Sulfate [Proair Hfa] 2 puff INHALATION RT-Q6H PRN 07/28/19 09/11/23 History Ascorbic Acid [Vitamin C] 500 mg PO DAILY 05/08/21 09/11/23 History Cholecalciferol (Vitamin D3) 125 mcg PO DAILY 06/06/22 09/11/23 History [Vitamin D3 (125 MCG = 5,000 IU)] Ipratropium-Albuterol Nebulize 3 ml INHALATION RT-Q6H PRN 06/06/22 09/11/23 History [Duoneb 0.5 mg-3 mg/3 ml Soln] Fluticasone Propion/Salmeterol 1 puff INHALATION RT-BID 06/07/23 09/11/23 History [Advair 100-50 Diskus] HYDROcodone/APAP 10-325MG [[place] 1 tab PO Q8H PRN 06/28/23 09/11/23 History 10-325] Sildenafil [Revatio] 20 mg PO TID 90 Days #30 tab 07/02/23 09/11/23 Rx Levothyroxine Sodium [Synthroid] 150 mcg PO AC-BRKFST 30 Days #30 08/27/23 09/11/23 Rx tablet Metoprolol Tartrate [Lopressor] 50 mg PO BID 30 Days #60 tab 08/27/23 09/11/23 Rx Furosemide [Lasix] 40 mg PO DAILY 09/04/23 09/11/23 History Warfarin [Coumadin] 2.5 mg PO HS 09/11/23 09/11/23 History Allergies Allergy/AdvReac Type Severity Reaction Status Date / Time lisinopril Allergy Unknown Verified 09/11/23 17:53 Physical Exam Vitals: Vital Signs Temp Pulse Resp BP Pulse Ox 09/12/23 08:40 96 09/12/23 05:39 98.1 F 89 16 114/83 96 09/12/23 04:27 95 16 110/49 97 09/12/23 03:02 98.7 F 105 H 16 112/61 96 09/12/23 01:36 104 H 16 117/73 95 09/11/23 22:00 114 H 18 105/75 97 09/11/23 20:28 111 H 16 97/69 95 09/11/23 19:20 98.8 F 102 H 16 92/71 95 09/11/23 18:29 92 16 92/54 98 09/11/23 17:50 101 H 18 112/62 93 L 09/11/23 15:08 97.9 F 134 H 16 156/76 97 Intake and Output 09/11/23 09/12/23 09/12/23 22:59 06:59 14:59 Other: Weight 46.72 kg Results 09/11/23 15:22 09/11/23 15:22 Cardiac Enzymes 09/11/23 09/11/23 09/11/23 Range/Units 15:22 15:22 18:11 AST 45 H (14-36) U/L Troponin I <0.012 <0.012 (0.000-0.034) ng/mL 09/11/23 Range/Units 20:39 AST (14-36) U/L Troponin I <0.012 (0.000-0.034) ng/mL Coagulation 09/11/23 Range/Units 15:22 PT 13.3 H (10.0-12.5) sec APTT 26.3 (22.0-30.0) sec CBC 09/11/23 Range/Units 15:22 WBC 7.8 (3.8-10.6) k/uL RBC 3.88 (3.80-5.40) m/uL Hgb 11.3 L (11.4-16.0) gm/dL Hct 36.3 (34.0-46.0) % Plt Count 235 (150-450) k/uL Comprehensive Metabolic Panel 09/11/23 Range/Units 15:22 Sodium 143 (137-145) mmol/L Potassium 3.5 (3.5-5.1) mmol/L Chloride 102 (98-107) mmol/L Carbon Dioxide 31 H (22-30) mmol/L BUN 18 H (7-17) mg/dL Creatinine 0.53 (0.52-1.04) mg/dL Glucose 149 H (74-99) mg/dL Calcium 8.9 (8.4-10.2) mg/dL AST 45 H (14-36) U/L ALT 126 H (4-34) U/L Alkaline Phosphatase 163 H (38-126) U/L Total Protein 7.1 (6.3-8.2) g/dL Albumin 3.7 (3.5-5.0) g/dL Current Medications Generic Name Dose Route Start Last Admin Trade Name Freq PRN Reason Stop Dose Admin Acetaminophen 650 mg 09/12/23 02:13 09/12/23 03:00 Acetaminophen Tab 325 Mg Tab PO 650 mg Q6HR PRN Administration Fever and/ or Pain Hydrocodone Bitart/Acetaminophen 1 each 09/12/23 08:55 Hydrocodone/Apap 10-325mg 1 Each Tab PO Q8H PRN Pain Albuterol/Ipratropium 3 ml 09/12/23 08:55 Ipratropium-Albuterol 3 Ml Neb INHALATION RT-Q6H PRN Shortness Of Breath Ascorbic Acid 500 mg 09/12/23 09:00 Ascorbic Acid 500 Mg Tab PO DAILY [facility] Budesonide/Formoterol Fumarate 2 puff 09/12/23 20:00 Symbicort 80-4.5 Mcg Inhaler INHALATION RT-BID CARLOS Cholecalciferol 125 mcg 09/12/23 09:00 Cholecalciferol 125 Mcg (5000 Iu) Tablet PO DAILY CARLOS Furosemide 40 mg 09/12/23 09:00 Furosemide 40 Mg Tab PO DAILY [facility] Sodium Chloride 1,000 mls @ 130 mls/hr 09/11/23 18:00 09/12/23 00:46 Saline 0.9% IV Not Given .Q7H42M CARLOS Levothyroxine Sodium 150 mcg 09/13/23 07:30 Levothyroxine 75 Mcg Tab PO AC-BRKFST CARLOS Metoprolol Tartrate 50 mg 09/12/23 09:00 Metoprolol Tartrate 50 Mg Tab PO BID CARLOS Miscellaneous Information 1 each 09/12/23 08:56 Warfarin Per Pharmacy MISCELLANE DIRECTED PRN Per Protocol Protocol Naloxone HCl 0.2 mg 09/11/23 17:54 Naloxone 0.4 Mg/Ml 1 Ml Vial IV Q2M PRN Opioid Reversal Ondansetron HCl 4 mg 09/11/23 17:54 Ondansetron 4 Mg/2 Ml Vial IVP Q8HR PRN Nausea And Vomiting Sildenafil Citrate 20 mg 09/12/23 09:00 Sildenafil 20 Mg Tab PO TID CARLOS Intake and Output 09/11/23 09/12/23 09/12/23 22:59 06:59 14:59 Other: Weight 46.72 kg 09/11/23 15:22 09/11/23 15:22
[2023-09-12] MEDS: SILDENAFIL 20 MG TAB PO SCH ×4 (14:28→20:37)
[2023-09-12] MEDS ORDERED: WARFARIN 3 MG TAB PO ONE (18:00)
[2023-09-12] MEDS: SYMBICORT 80-4.5 MCG INHALER INHALATION SCH (21:31)
[2023-09-13] MEDS: LEVOTHYROXINE 75 MCG TAB PO SCH (06:22)
[2023-09-13] MEDS: PANTOPRAZOLE 40 MG TABLET PO SCH (06:22)
[2023-09-13] MEDS: ASCORBIC ACID 500 MG TAB PO SCH (08:40)
[2023-09-13] MEDS: FUROSEMIDE 40 MG TAB PO SCH (08:43)
[2023-09-13] MEDS: CHOLECALCIFEROL 125 MCG (5000 IU) TABLET PO SCH (08:43)
[2023-09-13] MEDS: SODIUM CHLORIDE 0.9% 1,000 ML IV SCH ×3 (08:44→19:33)
[2023-09-13] MEDS: SYMBICORT 80-4.5 MCG INHALER INHALATION SCH ×2 (08:47→22:04)
[2023-09-13 10:03] LABS: HCT 36.6 % (34.0-46.0); Hypochromasia Marked; MCH 28.7 pg (25.0-35.0); MCV 95.8 fL (80.0-100.0); Mean Platelet Volume 8.8; Platelet Count 202 k/uL (150-450); RBC 3.82 m/uL (3.80-5.40); RDW 15.1 % (11.5-15.5); WBC 6.8 k/uL (3.8-10.6)
[2023-09-13 10:17] LABS: INR 1.2 (<1.2); Prothrombin Time 13.1 sec (10.0-12.5)
[2023-09-13 10:39] LABS: ALT 76 U/L (4-34); AST 37 U/L (14-36); African American GFR (CKD) >90 (>60 ml/min/1.73 sqM); Albumin 3.3 g/dL (3.5-5.0); Alkaline Phosphatase 123 U/L (38-126); Anion Gap 13 mmol/L; Blood Urea Nitrogen 20 mg/dL (7-17); Calcium 8.7 mg/dL (8.4-10.2); Carbon Dioxide 27 mmol/L (22-30); Chloride 98 mmol/L (98-107); Glucose 91 mg/dL (74-99); Non-African American GFR(CKD) 87 (>60 ml/min/1.73 sqM); Sodium 138 mmol/L (137-145); Total Bilirubin 1.8 mg/dL (0.2-1.3); Total Protein 6.7 g/dL (6.3-8.2)
[2023-09-13 10:42] LABS: Potassium 4.3 mmol/L (3.5-5.1)
[2023-09-13 11:59] LABS: Eosinophils # (M) 0.14 k/uL (0-0.7); Lymphocytes # (M) 1.43 k/uL (1.0-4.8); Monocytes # (M) 0.48 k/uL (0-1.0); Neutrophils # (M) 4.76 k/uL (1.3-7.7); Neutrophils % (M) 70 %; Nucleated Red Blood Cells 0 /100 WBC (0-0); Total Cells Counted 100
--- NOTE | 2023-09-13 12:04 | P.PN ---
Subjective HISTORY OF PRESENT ILLNESS: This is a 78-year-old female with a past medical history significant for normal coronary arteries, mitral valve repair and aortic valve replacement in 2018, persistent atrial fibrillation, congestive heart failure, and hypothyroidism. Patient follows in the office with Dr. Flores. We have been asked to see the patient in consultation for A. fib with RVR. Patient examined at the bedside in the emergency room. Patient states she came to the emergency room because her visiting nurse found her to be tachycardic. The patient denies having any palpitations. She denies any shortness of breath or cough. She denies any chest pain or pressure. At the time of examination she remains in atrial fibrillation with a heart rate in the 80s. She is on IV Cardizem at 5 mg an hour. Patient's blood pressures are borderline soft with a systolic around 90. The patient states she has not taken her medications for the past 1-2 days including her metoprolol and her Coumadin. * EKG reveals A. fib with RVR * Chest xray correlate for CHF with patchy interstitial pulmonary edema. Small left effusion with adjacent atelectasis and/or consolidation * Laboratory data: Troponin negative 3. ProBNP 5050. * Most recent echocardiogram obtained in June 2023 revealed ejection fraction 30-35%, severe pulmonary hypertension, bioprosthetic aortic valve, and mitral valve repair with mild MR * Cardiac catheterization history: October 2017 revealing normal coronary arteries 09/13/2023 Patient examined this morning at the bedside. Patient denies chest pain or pressure. She denies shortness of breath. Telemetry reveals atrial fibrillation/flutter with heart rate in the 70s. Patient remains on Coumadin. INR today is 1.2. PHYSICAL EXAM: VITAL SIGNS: Reviewed. GENERAL: Well-developed in no acute distress. HEENT: Head is normocephalic. Pupils are equal, round. Sclerae anicteric. Mucous membranes of the mouth are moist. Neck supple. No JVD or thyromegaly LUNGS: Respirations even and unlabored. Lungs essentially clear to auscultation bilaterally. HEART: Irregular rate and rhythm. S1 and S2 heard. Systolic murmur noted ABDOMEN: Soft. Nondistended. Nontender. EXTREMITIES: Normal range of motion. No clubbing or cyanosis. Peripheral pulses intact. Trace bilateral lower extremity edema NEUROLOGIC: Awake and alert. Oriented x 3. ASSESSMENT: Persistent atrial fibrillation/typical atrial flutter with mild RVR Subtherapeutic INR History of mitral valve repair and bioprosthetic aortic valve replacement, 2018 Normal coronary arteries Congestive heart failure with reduced EF, 3035%, currently euvolemic Hypothyroidism PLAN: Continue current cardiac medications Continue Coumadin. Monitor INR No further inpatient recommendations from a cardiac standpoint Patient may be discharged home from a cardiology perspective. We'll defer to internal medicine We will sign off. Please reconsult if needed. Nurse practitioner note has been reviewed by physician. Signing provider agrees with the documented findings, assessment, and plan of care. Objective - Vital Signs Vital signs: Vital Signs Temp 98.3 F 09/13/23 08:00 Pulse 68 09/13/23 09:00 Resp 16 09/13/23 08:00 BP 95/53 09/13/23 08:00 Pulse Ox 95 09/13/23 08:49 FiO2 Intake & Output 09/12/23 09/13/23 09/13/23 18:59 06:59 18:59 Intake Total 360 260 Output Total 500 1000 Balance -140 -1000 260 Intake: Intake, IV Titration 20 Amount Sodium Chloride 0.9% 1, 20 000 ml @ 130 mls/hr IV . Q7H42M [facility] Rx#:[id number] Oral 360 240 Output: Urine 500 1000 Other: Voiding Method External Catheter External Catheter External Catheter - Labs CBC & Chem 7: 09/13/23 09:39 09/13/23 09:32 Labs: Abnormal Lab Results - Last 24 Hours (Table) 09/13/23 09/13/23 09/13/23 Range/Units 09:32 09:39 09:39 Hgb 11.0 L (11.4-16.0) gm/dL MCHC 30.0 L (31.0-37.0) g/dL PT 13.1 H (10.0-12.5) sec INR 1.2 H (<1.2) BUN 20 H (7-17) mg/dL Total Bilirubin 1.8 H (0.2-1.3) mg/dL AST 37 H (14-36) U/L ALT 76 H (4-34) U/L Albumin 3.3 L (3.5-5.0) g/dL
--- NOTE | 2023-09-13 13:10 | P.PN ---
Subjective Progress Note Date: 09/13/23 This is an 78-year-old female patient was well-known to my services who presented with concerns of shortness of breath and racing heartbeat. Patient was recently hospitalized and was discharged. Patient reports that she does feel lightheaded and dizzy. EKG completed showing atrial flutter tachycardia with rapid ventricular response. Chest x-ray completed showing correlation for CHF with patchy interstitial pulmonary edema. Small left effusion with adjacent atelectasis and or consolidation. Troponin negative. Initial lactic acid 2.3. Patient has past medical history of A. fib maintained on Coumadin, heart failure, COPD, GERD, osteoarthritis, renal disease, rheumatoid arthritis, thyroid disorder, heart cath, ex-smoker. Patient is maintained on home O2 2 L. Patient is currently on Cardizem drip. Cardiology and pulmonary service is consulted. Current vital signs temp 98.1, heart rate 89, respiratory rate 16, blood pressure 114/83 with pulse ox 96% on 3 L. Patient denies chest pain. Patient denies nausea vomiting or diarrhea. Patient denies any urinary burning or frequency On 09/13/2023 patient was seen and examined on the telemetry floor, she is alert and oriented 3 in no apparent distress, she is complaining of mild palpitation and some shortness of breath with activity, otherwise she denies any complaints, there is no fever or chills no headache or dizziness no chest pain, no cough no nausea or vomiting no abdominal pain no diarrhea and no urinary symptoms. Heart rate is down to the 80s, Cardizem drip was discontinued today, INR is subtherapeutic at 1.2, patient will be given a dose of subcu Lovenox, will continue to monitor to tomorrow, possible discharge to home tomorrow if stable Objective - Vital Signs Vital signs: Vital Signs Temp 98.3 F 09/13/23 08:00 Pulse 65 09/13/23 12:00 Resp 16 09/13/23 08:00 BP 96/60 09/13/23 12:00 Pulse Ox 94 L 09/13/23 12:00 FiO2 Intake & Output 09/12/23 09/13/23 09/13/23 18:59 06:59 18:59 Intake Total 360 260 Output Total 500 1000 Balance -140 -1000 260 Intake: Intake, IV Titration 20 Amount Sodium Chloride 0.9% 1, 20 000 ml @ 130 mls/hr IV . Q7H42M [facility] LICENSE OF [facility] Rx#:[id number] Oral 360 240 Output: Urine 500 1000 Other: Voiding Method External Catheter External Catheter External Catheter - Exam In general patient is alert and oriented x 3 in no distress HEENT head normocephalic and atraumatic Neck is supple no JVD no goiter no lymphadenopathy no carotid bruit Chest examination is clear to auscultation no crackles no wheezing Cardiac exam reveals irregular heart sounds S1 and S2 no gallops no murmurs Abdomen is soft nontender no organomegaly with normal bowel sounds Extremity exam reveals no edema no cyanosis or clubbing Neurological examination reveals no gross focal deficits - Labs CBC & Chem 7: 09/13/23 09:39 09/13/23 09:32 Labs: Abnormal Lab Results - Last 24 Hours (Table) 09/13/23 09/13/23 09/13/23 Range/Units 09:32 09:39 09:39 Hgb 11.0 L (11.4-16.0) gm/dL MCHC 30.0 L (31.0-37.0) g/dL PT 13.1 H (10.0-12.5) sec INR 1.2 H (<1.2) BUN 20 H (7-17) mg/dL Total Bilirubin 1.8 H (0.2-1.3) mg/dL AST 37 H (14-36) U/L ALT 76 H (4-34) U/L Albumin 3.3 L (3.5-5.0) g/dL Assessment and Plan Assessment: 1. A. fib with RVR 2. Acute on chronic systolic congestive heart failure 3. History of paroxysmal atrial fibrillation maintained on Coumadin 4. History of valvular heart disease history of aortic valve replacement and mitral valve repair 5. History of pulmonary hypertension 6. History of COPD 7. History of hypothyroidism. TSH level elevated. Patient's recent level 2.670 on 09/04/2023 dose also recently adjusted in August will continue current dose at this time 8. History of rheumatoid arthritis 9. History of chronic kidney disease DVT prophylaxis Coumadin. GI prophylaxis Protonix Patient started on IV Cardizem Cardiology and pulmonary service is consulted Home meds resumed Repeat labs ordered
--- NOTE | 2023-09-13 13:38 | P.CNPUL ---
History of Present Illness Consult date: 09/13/23 Requesting physician: Olya Olson Reason for consult: dyspnea, hypoxemia, pleural effusion, abnormal CXR/CT Chief complaint: Shortness of breath. History of present illness: Pulmonary consult dated 09/13/2023. 78-year-old female who was seen in the emergency department on 09/11/2023, at about 3 PM. She comes into the ER, brought in by EMS, because of shortness of breath, and a racing heart rate. The patient is seen today in room 373. Currently, the patient is on 2 L of oxygen. She's not receiving any IV fluids. This patient, has a history of multiple medical problems including congestive heart failure, atrial fibrillation, COPD, GERD, degenerative joint disease, rheumatoid arthritis, SVT, previous aortic valve replacement and mitral valve repair, and chronic hypoxemic respiratory failure. The patient has had recent admission, for shortness of breath, relating to atrial fibrillation and RVR, and congestive heart failure. Currently, she is resting comfortably, in room 373. White count is 6.8, hemoglobin 11, hematocrit 36.6, and platelet count 202,000. PT/INR were 13.1 and 1.2 respectively. Sodium 138, potassium 4.3, chlorides 98, CO2 27, BUN 20, creatinine 0.6. Her TSH was elevated at 9.5, and her N-terminal proBNP was elevated at 5050. Her chest x-ray, and my opinion was consistent with fluid overload/CHF. Review of Systems REVIEW OF SYSTEMS: CONSTITUTIONAL: [Negative.] NEUROLOGIC: [ Negative.] HEENT: [ Negative.] CARDIAC: Racing heart rate, palpitations, chest fluttering. PULMONARY: Shortness of breath, on exertion and at rest. GI: [Negative.] : [Negative.] RHEUMATOLOGIC: [ Negative.] IMMUNOLOGIC: [ Negative.] ENDOCRINE: [Negative. ] DERMATOLOGIC: [Negative.] Past Medical History Past Medical History: Atrial Fibrillation, Heart Failure, COPD, GERD/Reflux, Osteoarthritis (OA), Renal Disease, Rheumatoid Arthritis (RA), Supraventricular Tachycardia (SVT), Thyroid Disorder Additional Past Medical History / Comment(s): Valvular heart disease with previous aortic valve replacement and a mitral valve repair, congestion heart failure, Paroxysmal Afib, history of SVT, history of nonsustained VT, SOB with exertion, home O2 at 2L/NC usually prn but lately ATC, arthritis, RA several joints, current L elbow pain/swelling-had "injection", nephrolithiasis, hypothyroid, diverticular dx, UTI, iron deficiency anemia. PAST [employer] HISTORY: She has no history of STDs. History of Any Multi-Drug Resistant Organisms: None Reported Past Surgical History: Coronary Bypass/CABG, Heart Catheterization, Hysterec latoya, Joint Replacement, Orthopedic Surgery Additional Past Surgical History / Comment(s): Geoff total knees arthroplasty,lt hip arthroplasty, goiter removed 1962, partial thyroidectomy, cataracts removed with lens implants, REVERSE TOTAL RIGHT SHOULDER; Rotator cuff R shoulder, cervical fusion/injections, colonoscopy 2017(next after 5yr), MATTHEW, valve surgery at [facility] 10/13/17 Prosthetic Aortic valve and mitral valve repair. Total abdominal hysterectomy in the 1980s. Past Anesthesia/Blood Transfusion Reactions: Postoperative Nausea & Vomiting (PONV) Past Psychological History: No Psychological Hx Reported Smoking Status: Former smoker Past Alcohol Use History: None Reported Past Drug Use History: None Reported - Past Family History Father Family Medical History: Cancer, Myocardial Infarction ([place]) Additional Family Medical History / Comment(s): in his 80's of a mi. Colon cancer. Mother Family Medical History: No Reported History Additional Family Medical History / Comment(s): age 88 . hx smoking. Daughter(s) Family Medical History: Cancer Additional Family Medical History / Comment(s): from vulvar cancer. Medications and Allergies Home Medications Medication Instructions Recorded Confirmed Type Albuterol Sulfate [Proair Hfa] 2 puff INHALATION RT-Q6H PRN 07/28/19 09/11/23 Hi story Ascorbic Acid [Vitamin C] 500 mg PO DAILY 05/08/21 09/11/23 History Cholecalciferol (Vitamin D3) 125 mcg PO DAILY 06/06/22 09/11/23 History [Vitamin D3 (125 MCG = 5,000 IU)] Ipratropium-Albuterol Nebulize 3 ml INHALATION RT-Q6H PRN 06/06/22 09/11/23 History [Duoneb 0.5 mg-3 mg/3 ml Soln] Fluticasone Propion/Salmeterol 1 puff INHALATION RT-BID 06/07/23 09/11/23 History [Advair 100-50 Diskus] HYDROcodone/APAP 10-325MG [[place] 1 tab PO Q8H PRN 06/28/23 09/11/23 History 10-325] Sildenafil [Revatio] 20 mg PO TID 90 Days #30 tab 07/02/23 09/11/23 Rx Levothyroxine Sodium [Synthroid] 150 mcg PO AC-BRKFST 30 Days #30 08/27/23 09/11/23 Rx tablet Metoprolol Tartrate [Lopressor] 50 mg PO BID 30 Days #60 tab 08/27/23 09/11/23 Rx Furosemide [Lasix] 40 mg PO DAILY 09/04/23 09/11/23 History Warfarin [Coumadin] 2.5 mg PO HS 09/11/23 09/11/23 History Allergies Allergy/AdvReac Type Severity Reaction Status Date / Time lisinopril Allergy Unknown Verified 09/11/23 17:53 Physical Exam Osteopathic Statement: *. No significant issues noted on an osteopathic structural exam other than those noted in the History and Physical/Consult. Vitals: Vital Signs Temp Pulse Pulse Resp BP BP Pulse Ox 09/13/23 12:00 65 96/60 94 L 09/13/23 09:00 68 09/13/23 08:49 64 95 09/13/23 08:00 98.3 F 65 16 95/53 98 09/13/23 04:00 64 16 103/53 100 09/13/23 01:34 66 14 09/13/23 00:00 66 14 101/53 97 09/12/23 20:00 97.9 F 112 H 18 112/69 95 09/12/23 16:00 85 18 144/64 96 09/12/23 15:43 98.0 F 89 18 122/91 98 09/12/23 14:00 90 18 129/98 97 Intake and Output 09/12/23 09/13/23 09/13/23 22:59 06:59 14:59 Intake Total 360 260 Output Total 500 1000 Balance -140 -1000 260 Intake: Intake, IV Titration 20 Amount Sodium Chloride 0.9% 1, 20 000 ml @ 130 mls/hr IV . [facility]M [facility] Rx#:[id number] Oral 360 240 Output: Urine 500 1000 Other: Voiding Method External Catheter External Catheter External Catheter No acute distress, oriented 3. No conversational dyspnea or use of accessory muscles. Currently on 2 L of oxygen. HEENT examination is grossly unremarkable. Mucous membranes are moist. No oral lesions. Neck supple. Full range of motion. No adenopathy thyromegaly or neck vein distention. Cardiovascular examination reveals an irregular rhythm and rate. Heart rate is 90 bpm. S1-S2 normal. No S3 or S4. No discernible murmur noted. Lungs reveal bilateral basilar crackles. Minimal rhonchi. No wheezes. Breath sounds equal bilaterally. Saturations are in the mid 90s on 2 L. Abdomen soft bowel sounds are heard. No masses or tenderness. Extremities are intact. No cyanosis clubbing or edema. Skin is without rash or lesion. Neurologic examination is brief but nonfocal. Results - Laboratory Findings CBC and BMP: 09/13/23 09:39 09/13/23 09:32 PT/INR, D-dimer PT 13.1 sec (10.0-12.5) H 09/13/23 09:39 INR 1.2 (<1.2) H 09/13/23 09:39 Abnormal lab findings: Abnormal Labs 09/11/23 09/11/23 09/11/23 15:22 15:22 15:22 Hgb 11.3 L MCHC PT 13.3 H INR 1.3 H Carbon Dioxide 31 H BUN 18 H Glucose 149 H Plasma Lactic Acid Wilfred Total Bilirubin AST 45 H ALT 126 H Alkaline Phosphatase 163 H Albumin TSH 9.500 H 09/11/23 09/11/23 09/12/23 15:22 18:15 10:17 Hgb MCHC PT 13.5 H INR 1.3 H Carbon Dioxide BUN Glucose Plasma Lactic Acid Wilfred 2.2 H* 2.3 H* Total Bilirubin AST ALT Alkaline Phosphatase Albumin TSH 09/13/23 09/13/23 09/13/23 09:32 09:39 09:39 Hgb 11.0 L MCHC 30.0 L PT 13.1 H INR 1.2 H Carbon Dioxide BUN 20 H Glucose Plasma Lactic Acid Wilfred Total Bilirubin 1.8 H AST 37 H ALT 76 H Alkaline Phosphatase Albumin 3.3 L TSH - Diagnostic Findings Chest x-ray: image reviewed Assessment and Plan Assessment: Acute hypoxemic respiratory failure, secondary to atrial fibrillation/RVR, and acute congestive heart failure. History of chronic atrial fibrillation and SVT. Prior history of aortic valve replacement and mitral valve repair. History of CHF. History of COPD. History of gastroesophageal reflux disease. History of rheumatoid arthritis. History of DJD. Chronic hypoxemic respiratory failure, on home O2. Plan: Plan dated 09/13/2023. The patient's on appropriate medications including Symbicort, updrafts, Lasix, Coumadin, etc. We will continue to follow the patient, make recommendations along the way. Prognosis is certainly guarded. The patient has had recent admissions to the hospital for a similar scenario of shortness of breath, secondary to atrial fibrillation and CHF. Patient's prognosis is guarded. Labs, x-rays, and medications are all reviewed. Time with Patient: Greater than 30
[2023-09-13] MEDS: ENOXAPARIN 40 MG/0.4 ML SYRINGE SQ SCH ×2 (17:55→19:32)
[2023-09-13] MEDS ORDERED: WARFARIN 3 MG TAB PO ONE (18:00)
[2023-09-13] MEDS: SILDENAFIL 20 MG TAB PO SCH ×2 (18:32→19:41)
[2023-09-13] MEDS: METOPROLOL TARTRATE 50 MG TAB PO SCH (19:41)
[2023-09-14 04:04] VITALS: RESP 18
[2023-09-14] MEDS: SODIUM CHLORIDE 0.9% 1,000 ML IV SCH (04:05)
[2023-09-14] MEDS: PANTOPRAZOLE 40 MG TABLET PO SCH (05:34)
[2023-09-14] MEDS: LEVOTHYROXINE 75 MCG TAB PO SCH (05:34)
[2023-09-14] MEDS: SYMBICORT 80-4.5 MCG INHALER INHALATION SCH (09:06)
[2023-09-14] MEDS: METOPROLOL TARTRATE 50 MG TAB PO SCH (09:24)
[2023-09-14] MEDS: ENOXAPARIN 40 MG/0.4 ML SYRINGE SQ SCH (09:24)
[2023-09-14] MEDS: FUROSEMIDE 40 MG TAB PO SCH (09:24)
[2023-09-14] MEDS: ASCORBIC ACID 500 MG TAB PO SCH (09:24)
[2023-09-14] MEDS: CHOLECALCIFEROL 125 MCG (5000 IU) TABLET PO SCH (09:24)
[2023-09-14] MEDS ORDERED: SENNOSIDES-DOCUSATE SODIUM 1 EACH TAB PO STA (09:44)
--- NOTE | 2023-09-14 10:42 | P.DS ---
Providers Date of admission: 09/11/23 17:54 Expected date of discharge: 09/14/23 Attending physician: Olya Olson Consults: 09/12/23 08:56 Consult Physician Routine Consulting Provider: Milton Doyle Consult Reason/Comments: CoPD Do you want consulting provider notified?: Yes Primary care physician: Olya Olson [place] [facility] Course: Discharge diagnosis 1. A. fib with RVR 2. Acute on chronic systolic congestive heart failure 3. History of paroxysmal atrial fibrillation maintained on Coumadin 4. History of valvular heart disease history of aortic valve replacement and mi tral valve repair 5. History of pulmonary hypertension 6. History of COPD 7. History of hypothyroidism. TSH level elevated. Patient's recent level 2.670 on 09/04/2023 dose also recently adjusted in August will continue current dose at this time 8. History of rheumatoid arthritis 9. History of chronic kidney disease Hospital course This is an 78-year-old female patient was well-known to my services who presented with concerns of shortness of breath and racing heartbeat. Patient was recently hospitalized and was discharged. Patient reports that she does feel lightheaded and dizzy. EKG completed showing atrial flutter tachycardia with rapid ventricular response. Chest x-ray completed showing correlation for CHF with patchy interstitial pulmonary edema. Small left effusion with adjacent atelectasis and or consolidation. Troponin negative. Initial lactic acid 2.3. Patient has past medical history of A. fib maintained on Coumadin, heart failur e, COPD, GERD, osteoarthritis, renal disease, rheumatoid arthritis, thyroid disorder, heart cath, ex-smoker. Patient is maintained on home O2 2 L. Patient is currently on Cardizem drip. Cardiology and pulmonary service is consulted. Current vital signs temp 98.1, heart rate 89, respiratory rate 16, blood pressure 114/83 with pulse ox 96% on 3 L. Patient denies chest pain. Patient denies nausea vomiting or diarrhea. Patient denies any urinary burning or frequency On 09/13/2023 patient was seen and examined on the telemetry floor, she is alert and oriented 3 in no apparent distress, she is complaining of mild palpitation and some shortness of breath with activity, otherwise she denies any complaints, there is no fever or chills no headache or dizziness no chest pain, no cough no nausea or vomiting no abdominal pain no diarrhea and no urinary symptoms. Heart rate is down to the 80s, Cardizem drip was discontinued today, INR is subtherapeutic at 1.2, patient will be given a dose of subcu Lovenox, will continue to monitor to tomorrow, possible discharge to home tomorrow if stable On 09/14/2023 patient alert and oriented 3. Patient ordered we know exactly Patient will be DC'd on Coumadin 3 mg daily. Patient copmlining of constipation. Patient to follow-up with PCP and cardiology services for further management. Patient denies chest pain or shortness breath. Patient denies nausea vomiting or diarrhea. Patient denies any urinary burning or frequency Patient Condition at Discharge: Stable Plan - Discharge Summary New Discharge Prescriptions: New Warfarin [Coumadin] 3 mg PO DAILY 30 Days #30 tab Continue Albuterol Sulfate [Proair Hfa] 2 puff INHALATION RT-Q6H PRN PRN Reason: Shortness Of Breath Ascorbic Acid [Vitamin C] 500 mg PO DAILY Cholecalciferol (Vitamin D3) [Vitamin D3 (125 MCG = 5,000 IU)] 125 mcg PO DAILY Ipratropium-Albuterol Nebulize [Duoneb 0.5 mg-3 mg/3 ml Soln] 3 ml INHALATION RT-Q6H PRN PRN Reason: Shortness Of Breath Fluticasone Propion/Salmeterol [Advair 100-50 Diskus] 1 puff INHALATION RT- BID Levothyroxine Sodium [Synthroid] 150 mcg PO AC-BRKFST 30 Days #30 tablet Sildenafil [Revatio] 20 mg PO TID 90 Days #30 tab Metoprolol Tartrate [Lopressor] 50 mg PO BID 30 Days #60 tab Furosemide [Lasix] 40 mg PO DAILY HYDROcodone/APAP 10-325MG [[place] 10-325] 1 tab PO Q8H PRN 3 Days #12 tab PRN Reason: Pain Discontinued Warfarin [Coumadin] 2.5 mg PO HS Discharge Medication List Albuterol Sulfate [Proair Hfa] 2 puff INHALATION RT-Q6H PRN 07/28/19 [History] Ascorbic Acid [Vitamin C] 500 mg PO DAILY 05/08/21 [History] Cholecalciferol (Vitamin D3) [Vitamin D3 (125 MCG = 5,000 IU)] 125 mcg PO DAILY 06/06/22 [History] Ipratropium-Albuterol Nebulize [Duoneb 0.5 mg-3 mg/3 ml Soln] 3 ml INHALATION RT-Q6H PRN 06/06/22 [History] Fluticasone Propion/Salmeterol [Advair 100-50 Diskus] 1 puff INHALATION RT-BID 06/07/23 [History] Sildenafil [Revatio] 20 mg PO TID 90 Days #30 tab 07/02/23 [Rx] Levothyroxine Sodium [Synthroid] 150 mcg PO AC-BRKFST 30 Days #30 tablet 08/27/23 [Rx] Metoprolol Tartrate [Lopressor] 50 mg PO BID 30 Days #60 tab 08/27/23 [Rx] Furosemide [Lasix] 40 mg PO DAILY 09/04/23 [History] HYDROcodone/APAP 10-325MG [[place] 10-325] 1 tab PO Q8H PRN 3 Days #12 tab 09/14/23 [Rx] Warfarin [Coumadin] 3 mg PO DAILY 30 Days #30 tab 09/14/23 [Rx] Follow up Appointment(s)/Referral(s): Olya Olson MD [Primary Care Provider] - 1-2 days
[2023-09-14 11:34] VITALS: TEMP 97.7
[2023-09-14 12:47] LABS: Basophils % (A) 1 %; Eosinophils # (A) 0.2 k/uL (0-0.7); Eosinophils % (A) 3 %; HGB 10.4 gm/dL (11.4-16.0); Hypochromasia Marked; Lymphocytes # (A) 1.1 k/uL (1.0-4.8); Lymphocytes % (A) 18 %; MCH 28.9 pg (25.0-35.0); MCHC 30.6 g/dL (31.0-37.0); MCV 94.5 fL (80.0-100.0); Mean Platelet Volume 9.1; Monocytes # (A) 0.4 k/uL (0-1.0); Monocytes % (A) 6 %; Neutrophils # (A) 4.2 k/uL (1.3-7.7); Neutrophils % (A) 69 %; Platelet Count 241 k/uL (150-450); RDW 15.3 % (11.5-15.5); WBC 6.2 k/uL (3.8-10.6)
[2023-09-14 12:56] LABS: ALT 58 U/L (4-34); AST 26 U/L (14-36); African American GFR (CKD) >90 (>60 ml/min/1.73 sqM); Albumin 3.3 g/dL (3.5-5.0); Alkaline Phosphatase 127 U/L (38-126); Anion Gap 10 mmol/L; Blood Urea Nitrogen 22 mg/dL (7-17); Calcium 8.5 mg/dL (8.4-10.2); Carbon Dioxide 29 mmol/L (22-30); Chloride 98 mmol/L (98-107); Glucose 113 mg/dL (74-99); Non-African American GFR(CKD) 83 (>60 ml/min/1.73 sqM); Potassium 3.7 mmol/L (3.5-5.1); Sodium 137 mmol/L (137-145); Total Protein 6.4 g/dL (6.3-8.2)
[2023-09-14 13:06] VITALS: BP 97/56; PULSE 69
[2023-09-14 13:07] LABS: INR 1.4 (<1.2); Prothrombin Time 14.1 sec (10.0-12.5)
[2023-09-14] MEDS: SILDENAFIL 20 MG TAB PO SCH (13:31)
--- NOTE | 2023-09-14 14:54 | P.PN ---
Subjective Progress Note Date: 09/14/23 Principal diagnosis: Shortness of breath. Pulmonary consult dated 09/13/2023. 78-year-old female who was seen in the emergency department on 09/11/2023, at about 3 PM. She comes into the ER, brought in by EMS, because of shortness of breath, and a racing heart rate. The patient is seen today in room 373. Currently, the patient is on 2 L of oxygen. She's not receiving any IV fluids. This patient, has a history of multiple medical problems including congestive heart failure, atrial fibrillation, COPD, GERD, degenerative joint disease, rheumatoid arthritis, SVT, previous aortic valve replacement and mitral valve repair, and chronic hypoxemic respiratory failure. The patient has had recent admission, for shortness of breath, relating to atrial fibrillation and RVR, and congestive heart failure. Currently, she is resting comfortably, in room 373. White count is 6.8, hemoglobin 11, hematocrit 36.6, and platelet count 202,000. PT/INR were 13.1 and 1.2 respectively. Sodium 138, potassium 4.3, chlorides 98, CO2 27, BUN 20, creatinine 0.6. Her TSH was elevated at 9.5, and her N-terminal proBNP was elevated at 5050. Her chest x-ray, and my opinion was consistent with fluid overload/CHF. Progress note dated 09/14/2023. The patient is seen today in room 373. She was minute with a diagnosis of atrial fibrillation/RVR, and congestive heart failure. The patient's currently on 2 L of oxygen. No IV fluids. She sitting in a chair, next to her hospital bed. Her breathing is much improved, and she feels much better. Currently laboratory data includes a white count of 6.2, he will attempt 0.4, hematocrit 34, and platelet count 241,000. Sodium 137, potassium 3.7, chlorides 98, CO2 29, BUN 22, creatinine 0.67. Pro-calcitonin level is 0.06. Objective - Vital Signs Vital signs: Vital Signs Temp 97.7 F 09/14/23 08:00 Pulse 69 09/14/23 14:00 Resp 18 09/14/23 14:00 BP 97/56 09/14/23 12:00 Pulse Ox 99 09/14/23 12:00 FiO2 Intake & Output 09/13/23 09/14/23 09/14/23 18:59 06:59 18:59 Intake Total 500 480 Output Total 400 500 0 Balance 100 -500 480 Intake: Intake, IV Titration 20 Amount Sodium Chloride 0.9% 1, 20 000 ml @ 130 mls/hr IV . Q7H42M [facility] Rx#:[id number] Oral 480 480 Output: Urine 400 500 0 Stool 0 Other: Voiding Method External Catheter External Catheter External Catheter # Voids 0 # Bowel Movements 1 1 - Exam No acute distress, oriented 3. No conversational dyspnea or use of accessory m uscles. Currently on 2 L of oxygen. HEENT examination is grossly unremarkable. Mucous membranes are moist. No oral lesions. Neck supple. Full range of motion. No adenopathy thyromegaly or neck vein distention. Cardiovascular examination reveals an irregular rhythm and rate. Heart rate is 69 bpm. S1-S2 normal. No S3 or S4. No discernible murmur noted. Lungs reveal bilateral basilar crackles. Minimal rhonchi. No wheezes. Breath sounds equal bilaterally. Saturations are 99% on 2 L. Abdomen soft bowel sounds are heard. No masses or tenderness. Extremities are intact. No cyanosis clubbing or edema. Skin is without rash or lesion. Neurologic examination is brief but nonfocal. - Labs CBC & Chem 7: 09/14/23 11:03 09/14/23 11:03 Labs: Abnormal Lab Results - Last 24 Hours (Table) 09/14/23 09/14/23 09/14/23 Range/Units 11:03 11:03 11:03 RBC 3.60 L (3.80-5.40) m/uL Hgb 10.4 L (11.4-16.0) gm/dL MCHC 30.6 L (31.0-37.0) g/dL PT 14.1 H (10.0-12.5) sec INR 1.4 H (<1.2) BUN 22 H (7-17) mg/dL Glucose 113 H (74-99) mg/dL ALT 58 H (4-34) U/L Alkaline Phosphatase 127 H (38-126) U/L Albumin 3.3 L (3.5-5.0) g/dL Assessment and Plan Assessment: Acute hypoxemic respiratory failure, secondary to atrial fibrillation/RVR, and acute congestive heart failure. History of chronic atrial fibrillation and SVT. Prior history of aortic valve replacement and mitral valve repair. History of CHF. History of COPD. History of gastroesophageal reflux disease. History of rheumatoid arthritis. History of DJD. Chronic hypoxemic respiratory failure, on home O2. Plan: Plan dated 09/13/2023. The patient's on appropriate medications including Symbicort, updrafts, Lasix, Coumadin, etc. We will continue to follow the patient, make recommendations along the way. Prognosis is certainly guarded. The patient has had recent admissions to the hospital for a similar scenario of shortness of breath, secondary to atrial fibrillation and CHF. Patient's prognosis is guarded. Labs, x-rays, and medications are all reviewed. Plan dated 09/14/2023. The patient is feeling much better today. She is much less short of breath. She denies any cough, wheezing, chest tightness, or phlegm production. She also denies any chest pain or pressure. She also denies any palpitations. Labs, x- rays, medications are reviewed. She continues on 2 L of oxygen. We will continue to follow make recommendations along the way. Time with Patient: Less than 30
[2023-09-14] MEDS ORDERED: bisacodyL 10 MG SUPP RECTAL STA (16:02)
[2023-09-14] MEDS ORDERED: WARFARIN 5 MG TAB PO ONE (18:00)
== END 2023-09-14 17:38 | disposition home health service (06) | DRG 291 ==
LOC: EC 15:06 → 2CATHESU 17:54 → 3SCARD 18:06
PROVIDERS: ADMIT Internal Medicine; ATTEND Internal Medicine
DX: I13.0 Hypertensive heart and chronic kidney disease with heart failure and stage 1 through stage 4 chronic kidney disease, or unspecified chronic kidney disease (principal); I50.23 Acute on chronic systolic (congestive) heart failure; J96.21 Acute and chronic respiratory failure with hypoxia; I48.19 Other persistent atrial fibrillation; I48.3 Typical atrial flutter; J98.11 Atelectasis; R79.1 Abnormal coagulation profile; N18.9 Chronic kidney disease, unspecified; M06.9 Rheumatoid arthritis, unspecified; K59.00 Constipation, unspecified; Z91.128 Patient's intentional underdosing of medication regimen for other reason; J44.9 Chronic obstructive pulmonary disease, unspecified; T44.7X6A Underdosing of beta-adrenoreceptor antagonists, initial encounter; T45.516A Underdosing of anticoagulants, initial encounter; I27.20 Pulmonary hypertension, unspecified; F41.9 Anxiety disorder, unspecified; E03.9 Hypothyroidism, unspecified; Z96.653 Presence of artificial knee joint, bilateral; Z96.642 Presence of left artificial hip joint; Z99.81 Dependence on supplemental oxygen; Z95.3 Presence of xenogenic heart valve; Z95.1 Presence of aortocoronary bypass graft; Z79.01 Long term (current) use of anticoagulants; Z87.891 Personal history of nicotine dependence; Z79.899 Other long term (current) drug therapy; Z79.890 Hormone replacement therapy; Z88.8 Allergy status to other drugs, medicaments and biological substances
CPT/HCPCS: 36415; 71045; 80053; 83605; 83735; 83880; 84100; 84145; 84443; 84484; 85025; 85610; 85730; 93005; 94640; 94760; 96360; 96361; 99291

== ENCOUNTER 2023-09-18 19:28 | Observation (INO) | payer MEDICARE, OTHER ==
[2023-09-18 20:31] LABS: Basophils # (A) 0.1 k/uL (0-0.2); Basophils % (A) 1 %; Eosinophils # (A) 0.2 k/uL (0-0.7); Eosinophils % (A) 3 %; HCT 35.9 % (34.0-46.0); HGB 11.3 gm/dL (11.4-16.0); Hypochromasia Marked; Lymphocytes # (A) 1.3 k/uL (1.0-4.8); Lymphocytes % (A) 15 %; MCH 29.2 pg (25.0-35.0); MCHC 31.4 g/dL (31.0-37.0); Mean Platelet Volume 8.1; Monocytes # (A) 0.5 k/uL (0-1.0); Monocytes % (A) 6 %; Neutrophils # (A) 6.3 k/uL (1.3-7.7); Neutrophils % (A) 73 %; Platelet Count 264 k/uL (150-450); RBC 3.86 m/uL (3.80-5.40); RDW 15.1 % (11.5-15.5); WBC 8.7 k/uL (3.8-10.6)
[2023-09-18 20:40] LABS: INR 2.3 (<1.2); Partial Thromboplastin Time 31.8 sec (22.0-30.0); Prothrombin Time 22.7 sec (10.0-12.5)
--- NOTE | 2023-09-18 20:47 | XR ---
EXAMINATION TYPE: XR chest 2V DATE OF EXAM: 09/18/2023 8:44 PM CLINICAL INDICATION:Female, 78 years old with history of difficulty breathing; [facility] COMPARISON: Chest 11 2023. TECHNIQUE: XR chest 2V Frontal and lateral views of the chest. FINDINGS: Lungs/Pleura: There is increased bilateral hazy opacities throughout the lungs. Trace left pleural ef fusion is again identified. No evidence of pneumothorax. Heart/mediastinum: Cardiomediastinal silhouette is enlarged and stable. Musculoskeletal: No acute osseous pathology. Midline sternotomy wires and surgical clips project over the mediastinum. Right shoulder prosthesis identified. IMPRESSION: Mild interval progression of a constellation of findings concerning for underlying acute heart failur e.
[2023-09-18 21:09] LABS: ALT 34 U/L (4-34); AST 34 U/L (14-36); African American GFR (CKD) >90 (>60 ml/min/1.73 sqM); Albumin 3.6 g/dL (3.5-5.0); Alkaline Phosphatase 120 U/L (38-126); Anion Gap 7 mmol/L; Blood Urea Nitrogen 22 mg/dL (7-17); Calcium 9.1 mg/dL (8.4-10.2); Carbon Dioxide 29 mmol/L (22-30); Chloride 102 mmol/L (98-107); Glucose 109 mg/dL (74-99); Magnesium 2.1 mg/dL (1.6-2.3); Non-African American GFR(CKD) 89 (>60 ml/min/1.73 sqM); Potassium 4.6 mmol/L (3.5-5.1); Sodium 138 mmol/L (137-145); Total Bilirubin 1.1 mg/dL (0.2-1.3)
[2023-09-18 21:18] LABS: NT-Pro-B-Type Natriuretic Pept 3520 pg/mL
[2023-09-18] MEDS ORDERED: FUROSEMIDE 10 MG/ML 2 ML VIAL IV STA (21:20)
--- NOTE | 2023-09-18 21:42 | ED ---
SOB HPI - General Chief Complaint: Shortness of Breath Stated Complaint: Shortness of Breath Time Seen by Provider: 09/18/23 19:37 Source: patient, EMS Mode of arrival: EMS Limitations: no limitations - History of Present Illness Initial Comments: 78 year-old female with a history of oxygen-dependent COPD, CHF and recent frequent hospitalizations due to exacerbations. Patient states that today she had her oxygen off for a short period of time to bathe. Ports that after that despite putting her oxygen back on she hasn't been able to catch her breath. Patient states she feels really unwell. She feels like when she stands up she's got a pass out. Patient states she is not comfortable being at home feeling like this, she feels like she might . - Related Data Home Medications Medication Instructions Recorded Confirmed Albuterol Sulfate [Proair Hfa] 2 puff INHALATION RT-Q6H PRN 07/28/19 09/11/23 Ascorbic Acid [Vitamin C] 500 mg PO DAILY 05/08/21 09/11/23 Cholecalciferol (Vitamin D3) 125 mcg PO DAILY 06/06/22 09/11/23 [Vitamin D3 (125 MCG = 5,000 IU)] Ipratropium-Albuterol Nebulize 3 ml INHALATION RT-Q6H PRN 06/06/22 09/11/23 [Duoneb 0.5 mg-3 mg/3 ml Soln] Fluticasone Propion/Salmeterol 1 puff INHALATION RT-BID 06/07/23 09/11/23 [Advair 100-50 Diskus] Furosemide [Lasix] 40 mg PO DAILY 09/04/23 09/11/23 Previous Rx's Medication Instructions Recorded Sildenafil [Revatio] 20 mg PO TID 90 Days #30 tab 07/02/23 Levothyroxine Sodium [Synthroid] 150 mcg PO AC-BRKFST 30 Days #30 08/27/23 tablet Metoprolol Tartrate [Lopressor] 50 mg PO BID 30 Days #60 tab 08/27/23 HYDROcodone/APAP 10-325MG [[place] 1 tab PO Q8H PRN 3 Days #12 tab 09/14/23 10-325] Warfarin [Coumadin] 3 mg PO DAILY 30 Days #30 tab 09/14/23 Allergies Allergy/AdvReac Type Severity Reaction Status Date / Time lisinopril Allergy Unknown Verified 09/18/23 19:40 Review of Systems ROS Statement: Those systems with pertinent positive or pertinent negative responses have been documented in the HPI. ROS Other: All systems not noted in ROS Statement are negative. Past Medical History Past Medical History: Atrial Fibrillation, Heart Failure, COPD, GERD/Reflux, Osteoarthritis (OA), Renal Disease, Rheumatoid Arthritis (RA), Supraventricular Tachycardia (SVT), Thyroid Disorder Additional Past Medical History / Comment(s): Valvular heart disease with previous aortic valve replacement and a mitral valve repair, congestion heart failure, Paroxysmal Afib, history of SVT, history of nonsustained VT, SOB with exertion, home O2 at 2L/NC usually prn but lately ATC, arthritis, RA several joints, current L elbow pain/swelling-had "injection", nephrolithiasis, hypothyroid, diverticular dx, UTI, iron deficiency anemia. 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 History of Any Multi-Drug Resistant Organisms: None Reported Past Surgical History: Coronary Bypass/CABG, Heart Catheterization, Hysterectomy, Joint Replacement, Orthopedic Surgery Additional Past Surgical History / Comment(s): Geoff total knees arthroplasty,lt hip arthroplasty, goiter removed 1962, partial thyroidectomy, cataracts removed with lens implants, REVERSE TOTAL RIGHT SHOULDER; Rotator cuff R shoulder, cervical fusion/injections, colonoscopy 2016(next after 5yr), MATTHEW, valve surgery at [facility] 10/13/17 Prosthetic Aortic valve and mitral valve repair. Total abdominal hysterectomy in the 1980s. Past Anesthesia/Blood Transfusion Reactions: Postoperative Nausea & Vomiting (PONV) Past Psychological History: No Psychological Hx Reported Smoking Status: Former smoker Past Alcohol Use History: None Reported Past Drug Use History: None Reported - Past Family History Father Family Medical History: Cancer, Myocardial Infarction (CT) Additional Family Medical History / Comment(s): in his 80's of a mi. Colon cancer. Mother Family Medical History: No Reported History Additional Family Medical History / Comment(s): age 88 . hx smoking. Daughter(s) Family Medical History: Cancer Additional Family Medical History / Comment(s): from vulvar cancer. General Exam Limitations: no limitations General appearance: alert Head exam: Present: atraumatic Eye exam: Present: PERRL Respiratory exam: Present: other (crackles at bilateral bases) Cardiovascular Exam: Present: regular rate, irregular rhythm GI/Abdominal exam: Present: soft Rectal exam: Present: deferred Extremities exam: Present: pedal edema Neurological exam: Present: alert, oriented X3 Psychiatric exam: Present: anxious Skin exam: Present: warm, dry, intact Course Vital Signs 09/18/23 09/18/23 19:33 20:39 Temperature 97.8 F Pulse Rate 68 62 Respiratory 18 18 Rate Blood Pressure 108/55 107/73 O2 Sat by Pulse 100 100 Oximetry Medical Decision Making - Medical Decision Making Was pt. sent in by a medical professional or institution (, PA, FINAL APPLICATION REVIEWER, urgent care, hospital, or half-way...) When possible be specific @ -No Did you speak to anyone other than the patient for history (EMS, parent, family, police, friend...)? What history was obtained from this source @ - Did you review nursing and triage notes (agree or disagree)? Why? @ -I reviewed and agree with nursing and triage notes Were old charts reviewed (outside hosp., previous admission, EMS record, old EKG, old radiological studies, urgent care reports/EKG's, half-way records)? Report findings @ -Previous admissions reviewed Differential Diagnosis (chest pain, altered mental status, abdominal pain women, abdominal pain men, vaginal bleeding, weakness, fever, dyspnea, syncope, headache, dizziness, GI bleed, back pain, seizure, CVA, palpatations, mental health)? @ -Differential Dyspnea: Coronary syndrome, arrhythmia, tamponade, asthma, COPD, pulmonary embolism, pneumonia, pneumothorax, pulmonary effusion, anaphylaxis, diabetic ketoacidosis, flailed chest, pulmonary contusion, diaphragmatic rupture, anemia, neuromuscular, this is not meant to be an all-inclusive list. EKG interpreted by me (3pts min.). @ -As above X-rays interpreted by me (1pt min.). @ -Cardiomegaly and pleural effusions CT interpreted by me (1pt min.). @ -None done U/S interpreted by me (1pt. min.). @ -None done What testing was considered but not performed or refused? (CT, X-rays, U/S, labs)? Why? @ -None What meds were considered but not given or refused? Why? @ -None Did you discuss the management of the patient with other professionals (professionals i.e. , PA, FINAL APPLICATION REVIEWER, lab, RT, psych nurse, social science research assistant, it professional, teacher, chief environmental commitment officer, welfare case worker)? Give summary @ -Any physician Dr. Olson Was smoking cessation discussed for >3mins.? @ -No Was critical care preformed (if so, how long)? @ -No Were there social determinants of health that impacted care today? How? (Homelessness, low income, unemployed, alcoholism, drug addiction, transportation, low edu. Level, literacy, decrease access to med. care, long term, rehab)? @ -No Was there de-escalation of care discussed even if they declined (Discuss DNR or withdrawal of care, Hospice)? DNR status @ -No What co-morbidities impacted this encounter? (DM, HTN, Smoking, COPD, CAD, Cancer, CVA, ARF, Chemo, Hep., AIDS, mental health diagnosis, sleep apnea, morbid obesity)? @ -[COPD, CH F Was patient admitted / discharged? Hospital course, mention meds given and route, prescriptions, significant lab abnormalities, going to OR and other [facility] [place] info. @ -Admitted for observation Patient was seen and evaluated immediately upon arrival to the emergency department history is obtained from the patient and review of medical record. Patient CHF and COPD frequent hospitalizations recently. On arrival patient is in atrial flutter with a 4-1 block she's not having any chest pain. Developed during bathing today after not wearing her oxygen. Correction was increased to 4 L on arrival her vital signs are within normal limits. Labs are obtained and are at baseline for the patient. CHF on chest x-ray was noted. Patient was treated with Lasix. I discussed with patient if she would like to be discharged home however she is not comfortable being discharged she doesn't feel comfortable trying to ambulate. She feels too lightheaded when she stands. Patient was discussed with her primary care physician Dr. Olson who agrees with plan for observation with consult to cardiology. Undiagnosed new problem with uncertain prognosis? @ -No Drug Therapy requiring intensive monitoring for toxicity (Heparin, Nitro, Insulin, Cardizem)? @ -No Were any procedures done? @ -No Diagnosis/symptom? @ CHF Acute, or Chronic, or Acute on Chronic? @ Chronic Uncomplicated (without systemic symptoms) or Complicated (systemic symptoms)? @ -default Side effects of treatment? @ -No Exacerbation, Progression, or Severe Exacerbation? @ -No Poses a threat to life or bodily function? How? (Chest pain, USA, CT, pneumonia, PE, COPD, DKA, ARF, appy, cholecystitis, CVA, Diverticulitis, Homicidal, Suicidal, threat to staff... and all critical care pts) @ -Yes - Lab Data Result diagrams: 09/18/23 19:43 09/18/23 19:43 Lab Results 09/18/23 09/18/23 09/18/23 Range/Units 19:40 19:43 19:43 WBC 8.7 (3.8-10.6) k/uL RBC 3.86 (3.80-5.40) m/uL Hgb 11.3 L (11.4-16.0) gm/dL Hct 35.9 (34.0-46.0) % MCV 93.0 (80.0-100.0) fL MCH 29.2 (25.0-35.0) pg MCHC 31.4 (31.0-37.0) g/dL RDW 15.1 (11.5-15.5) % Plt Count 264 (150-450) k/uL MPV 8.1 Neutrophils % 73 % Lymphocytes % 15 % Monocytes % 6 % Eosinophils % 3 % Basophils % 1 % Neutrophils # 6.3 (1.3-7.7) k/uL Lymphocytes # 1.3 (1.0-4.8) k/uL Monocytes # 0.5 (0-1.0) k/uL Eosinophils # 0.2 (0-0.7) k/uL Basophils # 0.1 (0-0.2) k/uL Hypochromasia Marked PT 22.7 H (10.0-12.5) sec INR 2.3 H (<1.2) APTT 31.8 H (22.0-30.0) sec Sodium (137-145) mmol/L Potassium (3.5-5.1) mmol/L Chloride (98-107) mmol/L Carbon Dioxide (22-30) mmol/L Anion Gap mmol/L BUN (7-17) mg/dL Creatinine (0.52-1.04) mg/dL Est GFR (CKD-EPI)AfAm (>60 ml/min/1.73 sqM) Est GFR (CKD-EPI)NonAf (>60 ml/min/1.73 sqM) Glucose (74-99) mg/dL Plasma Lactic Acid Wilfred (0.7-2.0) mmol/L Calcium (8.4-10.2) mg/dL Magnesium (1.6-2.3) mg/dL Total Bilirubin (0.2-1.3) mg/dL AST (14-36) U/L ALT (4-34) U/L Alkaline Phosphatase (38-126) U/L Troponin I (0.000-0.034) ng/mL NT-Pro-B Natriuret Pep pg/mL Total Protein (6.3-8.2) g/dL Albumin (3.5-5.0) g/dL Influenza Type A (PCR) Not Detected (Not Detectd) Influenza Type B (PCR) Not Detected (Not Detectd) RSV (PCR) Not Detected (Not Detectd) SARS-CoV-2 (PCR) Not Detected (Not Detectd) 09/18/23 09/18/23 09/18/23 Range/Units 19:43 19:43 19:43 WBC (3.8-10.6) k/uL RBC (3.80-5.40) m/uL Hgb (11.4-16.0) gm/dL Hct (34.0-46.0) % MCV (80.0-100.0) fL MCH (25.0-35.0) pg MCHC (31.0-37.0) g/dL RDW (11.5-15.5) % Plt Count (150-450) k/uL MPV Neutrophils % % Lymphocytes % % Monocytes % % Eosinophils % % Basophils % % Neutrophils # (1.3-7.7) k/uL Lymphocytes # (1.0-4.8) k/uL Monocytes # (0-1.0) k/uL Eosinophils # (0-0.7) k/uL Basophils # (0-0.2) k/uL Hypochromasia PT (10.0-12.5) sec INR (<1.2) APTT (22.0-30.0) sec Sodium 138 (137-145) mmol/L Potassium 4.6 (3.5-5.1) mmol/L Chloride 102 (98-107) mmol/L Carbon Dioxide 29 (22-30) mmol/L Anion Gap 7 mmol/L BUN 22 H (7-17) mg/dL Creatinine 0.54 (0.52-1.04) mg/dL Est GFR (CKD-EPI)AfAm >90 (>60 ml/min/1.73 sqM) Est GFR (CKD-EPI)NonAf 89 (>60 ml/min/1.73 sqM) Glucose 109 H (74-99) mg/dL Plasma Lactic Acid Wilfred 1.5 (0.7-2.0) mmol/L Calcium 9.1 (8.4-10.2) mg/dL Magnesium 2.1 (1.6-2.3) mg/dL Total Bilirubin 1.1 (0.2-1.3) mg/dL AST 34 (14-36) U/L ALT 34 (4-34) U/L Alkaline Phosphatase 120 (38-126) U/L Troponin I <0.012 (0.000-0.034) ng/mL NT-Pro-B Natriuret Pep 3520 pg/mL Total Protein 7.0 (6.3-8.2) g/dL Albumin 3.6 (3.5-5.0) g/dL Influenza Type A (PCR) (Not Detectd) Influenza Type B (PCR) (Not Detectd) RSV (PCR) (Not Detectd) SARS-CoV-2 (PCR) (Not Detectd) - EKG Data -: EKG Interpreted by Me EKG Comments: EKG interpreted by me, EKG obtained due to complaint of shortness of breath, EKG obtained at 1948, rate is approximately 75 rhythm is in atrial flutter with a 4-1 block. There is no significant ST elevations or depressions there is no evidence of acute ischemia or infarction. Patient has history of atrial flutter. Disposition Clinical Impression: Acute exacerbation of chronic obstructive airways disease, Acute on chronic systolic (congestive) heart failure Disposition: ADMITTED IP TO THIS HOSP Condition: Serious Is patient prescribed a controlled substance at d/c from ED?: No Referrals: Olya Olson MD [Primary Care Provider] - 1-2 days
[2023-09-19] MEDS ORDERED: ALBUTEROL HFA INHALER INHALATION PRN (09:02)
[2023-09-19] MEDS ORDERED: IPRATROPIUM-ALBUTEROL 3 ML NEB INHALATION PRN (09:02)
[2023-09-19 09:54] LABS: Basophils % (A) 1 %; Eosinophils # (A) 0.1 k/uL (0-0.7); Eosinophils % (A) 2 %; HCT 33.6 % (34.0-46.0); HGB 10.3 gm/dL (11.4-16.0); Hypochromasia Marked; Lymphocytes # (A) 1.3 k/uL (1.0-4.8); Lymphocytes % (A) 22 %; MCH 28.6 pg (25.0-35.0); MCHC 30.6 g/dL (31.0-37.0); MCV 93.4 fL (80.0-100.0); Monocytes # (A) 0.3 k/uL (0-1.0); Monocytes % (A) 6 %; Neutrophils # (A) 3.9 k/uL (1.3-7.7); Neutrophils % (A) 66 %; Platelet Count 234 k/uL (150-450); RDW 15.2 % (11.5-15.5); WBC 5.9 k/uL (3.8-10.6)
--- NOTE | 2023-09-19 10:03 | P.HPIM ---
History of Present Illness H&P Date: 09/19/23 This is an 78-year-old female patient well-known to my services presented with complaints of increased shortness of breath. Patient has extensive medical history of oxygen dependent COPD, CHF, CHF the patient maintained on Coumadin, which would arthritis, thyroid disorder, associated arthritis, GERD. Patient reports she was getting out of the bath when she became increasingly short of breath. Upon arrival chest x-ray completed showing mild interval progression of consolation findings concerning for underlying acute heart failure. BNP 3520 troponin negative. Patient negative for influenza, RSV and COVID-19. Patient was given 1 dose of IV Lasix. Pharmacy to dose Coumadin ordered. Cardiology service is consulted. Repeat labs ordered. At this time patient reports improvement. Patient denies chest pain or shortness breath. Patient denies nausea vomiting or diarrhea. Patient denies any urinary burning or frequency. Temp 97.8, heart rate 69, respiratory 16, blood pressure 115/74 with pulse ox 96% on 3 L Review of Systems Please refer to HPI otherwise unremarkable Past Medical History Past Medical History: Atrial Fibrillation, Heart Failure, COPD, GERD/Reflux, Osteoarthritis (OA), Renal Disease, Rheumatoid Arthritis (RA), Supraventricular Tachycardia (SVT), Thyroid Disorder Additional Past Medical History / Comment(s): Valvular heart disease with previous aortic valve replacement and a mitral valve repair, congestion heart failure, Paroxysmal Afib, history of SVT, history of nonsustained VT, SOB with exertion, home O2 at 2L/NC usually prn but lately ATC, arthritis, RA several joints, current L elbow pain/swelling-had "injection", nephrolithiasis, hypothyroid, diverticular dx, UTI, iron deficiency anemia. 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 History of Any Multi-Drug Resistant Organisms: None Reported Past Surgical History: Coronary Bypass/CABG, Heart Catheterization, Hysterectomy, Joint Replacement, Orthopedic Surgery Additional Past Surgical History / Comment(s): Geoff total knees arthroplasty,lt hip arthroplasty, goiter removed 1962, partial thyroidectomy, cataracts removed with lens implants, REVERSE TOTAL RIGHT SHOULDER; Rotator cuff R shoulder, cervical fusion/injections, colonoscopy 2016(next after 5yr), MATTHEW, valve surgery at [facility] 10/13/17 Prosthetic Aortic valve and mitral valve repair. Total abdominal hysterectomy in the . Past Anesthesia/Blood Transfusion Reactions: Postoperative Nausea & Vomiting (PONV) Past Psychological History: No Psychological Hx Reported Smoking Status: Former smoker Past Alcohol Use History: None Reported Past Drug Use History: None Reported - Past Family History Father Family Medical History: Cancer, Myocardial Infarction ([place]) Additional Family Medical History / Comment(s): in his 80's of a mi. Colon cancer. Mother Family Medical History: No Reported History Additional Family Medical History / Comment(s): age 88 . hx smoking. Daughter(s) Family Medical History: Cancer Additional Family Medical History / Comment(s): from vulvar cancer. Medications and Allergies Home Medications Medication Instructions Recorded Confirmed Type Albuterol Sulfate [Proair Hfa] 2 puff INHALATION RT-Q6H PRN 07/28/19 09/18/23 History Ascorbic Acid [Vitamin C] 500 mg PO DAILY 05/08/21 09/18/23 History Cholecalciferol (Vitamin D3) 125 mcg PO DAILY 06/06/22 09/18/23 History [Vitamin D3 (125 MCG = 5,000 IU)] Ipratropium-Albuterol Nebulize 3 ml INHALATION RT-Q6H PRN 06/06/22 09/18/23 History [Duoneb 0.5 mg-3 mg/3 ml Soln] Fluticasone Propion/Salmeterol 1 puff INHALATION RT-BID 06/07/23 09/18/23 History [Advair 100-50 Diskus] Sildenafil [Revatio] 20 mg PO TID 90 Days #30 tab 07/02/23 09/18/23 Rx Levothyroxine Sodium [Synthroid] 150 mcg PO AC-BRKFST 30 Days #30 08/27/23 09/18/23 Rx tablet Metoprolol Tartrate [Lopressor] 50 mg PO BID 30 Days #60 tab 08/27/23 09/18/23 Rx Furosemide [Lasix] 40 mg PO DAILY 09/04/23 09/18/23 History HYDROcodone/APAP 10-325MG [[place] 1 tab PO Q8H PRN 3 Days #12 tab 09/14/23 09/18/23 Rx 10-325] Warfarin [Coumadin] 3 mg PO DAILY 30 Days #30 tab 09/14/23 09/18/23 Rx Allergies Allergy/AdvReac Type Severity Reaction Status Date / Time lisinopril Allergy Unknown Verified 09/18/23 21:56 Physical Exam Vitals: Vital Signs Temp Pulse Resp BP Pulse Ox 09/19/23 07:28 69 16 115/74 96 09/19/23 05:00 61 16 108/68 100 09/19/23 03:40 61 16 91/68 100 09/19/23 01:00 67 16 108/57 100 09/18/23 23:00 72 16 107/78 99 09/18/23 20:39 62 18 107/73 100 09/18/23 19:33 97.8 F 68 18 108/55 100 Intake and Output 09/18/23 09/19/23 09/19/23 22:59 06:59 14:59 Other: Weight 46.72 kg Head normocephalic Neck supple Lungs clear to auscultation bilaterally no wheezing or crackles Heart regular rate and rhythm S1-S2, no rub or gallop Abdomen is soft nontender nondistended positive bowel sounds no hepatosplenomegaly Extremities no edema Neuro alert and orientated to 3 Results CBC & Chem 7: 09/19/23 09:20 09/18/23 19:43 Labs: Abnormal Lab Results - Last 24 Hours (Table) 09/18/23 09/18/23 09/18/23 Range/Units 19:43 19:43 19:43 RBC (3.80-5.40) m/uL Hgb 11.3 L (11.4-16.0) gm/dL Hct (34.0-46.0) % MCHC (31.0-37.0) g/dL PT 22.7 H (10.0-12.5) sec INR 2.3 H (<1.2) APTT 31.8 H (22.0-30.0) sec BUN 22 H (7-17) mg/dL Glucose 109 H (74-99) mg/dL 09/19/23 Range/Units 09:20 RBC 3.60 L (3.80-5.40) m/uL Hgb 10.3 L (11.4-16.0) gm/dL Hct 33.6 L (34.0-46.0) % MCHC 30.6 L (31.0-37.0) g/dL PT (10.0-12.5) sec INR (<1.2) APTT (22.0-30.0) sec BUN (7-17) mg/dL Glucose (74-99) mg/dL Assessment and Plan Assessment: 1. Shortness breath secondary to acute exacerbation of CHF 2. History of chronic systolic congestive heart failure 3. History of paroxysmal atrial fibrillation maintained on Coumadin 4. 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 History of pulmonary hypertension 6. History of COPD 7. History of hypothyroidism 8. History of rheumatoid arthritis 9. History of chronic kidney disease DVT prophylaxis pharmacy to dose Coumadin. GI prophylaxis Protonix Cardiology services consulted Repeat labs ordered home meds resumed Time with Patient: Greater than 30 (Greater than 60% of the total time spent in counseling and coordination of care)
[2023-09-19 10:33] LABS: ALT 29 U/L (4-34); AST 24 U/L (14-36); African American GFR (CKD) >90 (>60 ml/min/1.73 sqM); Albumin 3.1 g/dL (3.5-5.0); Alkaline Phosphatase 110 U/L (38-126); Anion Gap 3 mmol/L; Blood Urea Nitrogen 18 mg/dL (7-17); Calcium 8.7 mg/dL (8.4-10.2); Carbon Dioxide 32 mmol/L (22-30); Chloride 103 mmol/L (98-107); Glucose 93 mg/dL (74-99); Non-African American GFR(CKD) 86 (>60 ml/min/1.73 sqM); Potassium 4.4 mmol/L (3.5-5.1); Sodium 138 mmol/L (137-145); Total Bilirubin 0.8 mg/dL (0.2-1.3); Total Protein 6.1 g/dL (6.3-8.2)
[2023-09-19 10:35] LABS: INR 2.7 (<1.2)
--- NOTE | 2023-09-19 13:12 | P.CRDCN ---
History of Present Illness Consult date: 09/19/23 Consult reason: atrial flutter, congestive heart failure History of present illness: History of present illness: This is an 78-year-old female patient of Dr. Flores with past medical history of persistent atrial fibrillation/flutter on Coumadin, known EF of 37%, history of mitral valve repair, nonischemic cardiomyopathy, pulmonary hypertension, hypothyroidism, patient was recently hospitalized last week for A-fib with RVR was maintained on her normal cardiac medications and discharged home with rate control. We have been asked to evaluate the patient for atrial flutter and CHF. Patient seen today in the emergency center. Her rate is currently controlled at 61, blood pressure 105/66. EKG atrial flutter at a controlled rate Chest x-ray: Mild interval progression of a constellation of findings concerning for underlying acute heart failure. WBC 5.9, hemoglobin 10.3, platelet count 234. INR 2.7. Sodium 138, potassium 4.4, BUN 18 creatinine 0.61. Influenza A, influenza B, RSV, COVID-19 not detected.. Home cardiac medications: Lasix 40 mg daily, Lopressor 50 mg twice daily, Revatio 20 mg 3 times daily, Coumadin 3 mg daily, also on levothyroxine 150 g daily Echocardiogram in June 2023 revealed ejection fraction 30-35%, severe pulmonary hypertension, bioprosthetic aortic valve, and mitral valve repair with mild MR Cardiac catheterization history: October 2017 revealing normal coronary arteries Cardioversion 07/05/2022 for atrial flutter with jainism of sinus rhythm Aortic valve replacement 10/13/2017 with Magna Ease bioprosthetic aortic valve, mitral valve repair with [employer] annular flex band, clip ligation of the left atrial appendage. MATTHEW performed 01/30/2018 revealed sutured left atrial appendage, bioprosthetic aortic valve with normal functioning, mitral annuloplasty with mitral valve repair and mild mitral regurgitation. Moderate tricuspid regurgitation. No evidence of shunting across the intra-atrial septum. Review Of Systems: At the time of my exam: CONSTITUTIONAL: Denies fever or chills. CARDIOVASCULAR: Denies chest pain, no shortness of breath, no orthopnea, no PND or reports palpitations. RESPIRATORY: Denies cough. GASTROINTESTINAL: Denies abdominal pain, diarrhea, constipation, nausea or vomiting. MUSCULOSKELETAL: Denies myalgias. NEUROLOGIC: Denies numbness, tingling or weakness. ENDOCRINE: Denies fatigue, weight change, polydipsia or polyurina. GENITOURINARY: Denies burning, hematuria or urgency with micturation. HEMATOLOGIC: Denies history of anemia or bleeding. Physical examination: Gen: This is an 78-year-old female resting in appears to be in no acute distress. VS: reviewed HEENT: Head is atraumatic, normocephalic. Pupils equal, round. Sclerae is anicteric. NECK: Supple. No JVD. LUNGS: Clear to auscultation. No wheezes or rhonchi. No intercostal retractions. HEART: Irregular rate and rhythm. 2/6 systolic murmur. ABDOMEN: Soft No tenderness. EXTREMITIES: No pedal edema. No calf tenderness. NEUROLOGICAL: Patient is awake, alert and oriented x3. Assessment: Persistent atrial fibrillation presenting with typical atrial flutter with RVR Mitral valve repair Nonischemic cardiomyopathy Pulmonary hypertension Hypothyroidism I have this feeling that Ramandeep is getting in trouble because this patient is 1 and so she had this she had a Plan: Resume patient's home cardiac medications Continue Cardizem drip and increase to 10 mg per hour Increase metoprolol to 50 mg 3 times daily Start patient on amiodarone 200 mg twice daily Discontinue Coumadin per Dr. Brown Start patient on aspirin 81 mg daily Discontinue Revatio No need to repeat echocardiogram Patient is cleared from cardiology for discharge home and discussed with patient's nurse practitioner Thank you kindly for this consultation. Nurse practitioner note has been reviewed, I agree with documented findings and plan of care. Patient was seen and examined. Past Medical History Past Medical History: Atrial Fibrillation, Heart Failure, COPD, GERD/Reflux, Osteoarthritis (OA), Renal Disease, Rheumatoid Arthritis (RA), Supraventricular Tachycardia (SVT), Thyroid Disorder Additional Past Medical History / Comment(s): Valvular heart disease with previous aortic valve replacement and a mitral valve repair, congestion heart failure, Paroxysmal Afib, history of SVT, history of nonsustained VT, SOB with exertion, home O2 at 2L/NC usually prn but lately ATC, arthritis, RA several joints, current L elbow pain/swelling-had "injection", nephrolithiasis, hypothyroid, diverticular dx, UTI, iron deficiency anemia. 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 History of Any Multi-Drug Resistant Organisms: None Reported Past Surgical History: Coronary Bypass/CABG, Heart Catheterization, Hysterectomy, Joint Replacement, Orthopedic Surgery Additional Past Surgical History / Comment(s): Geoff total knees arthroplasty,lt hip arthroplasty, goiter removed 1962, partial thyroidectomy, cataracts removed with lens implants, REVERSE TOTAL RIGHT SHOULDER; Rotator cuff R shoulder, cervical fusion/injections, colonoscopy 2017(next after 5yr), MATTHEW, valve surgery at [facility] 10/13/17 Prosthetic Aortic valve and mitral valve repair. Total abdominal hysterectomy in the 1980s. Past Anesthesia/Blood Transfusion Reactions: Postoperative Nausea & Vomiting (PONV) Past Psychological History: No Psychological Hx Reported Smoking Status: Former smoker Past Alcohol Use History: None Reported Past Drug Use History: None Reported - Past Family History Father Family Medical History: Cancer, Myocardial Infarction (ND) Additional Family Medical History / Comment(s): in his 80's of a mi. Colon cancer. Mother Family Medical History: No Reported History Additional Family Medical History / Comment(s): age 88 . hx smoking. Daughter(s) Family Medical History: Cancer Additional Family Medical History / Comment(s): from vulvar cancer. Medications and Allergies Home Medications Medication Instructions Recorded Confirmed Type Albuterol Sulfate [Proair Hfa] 2 puff INHALATION RT-Q6H PRN 07/28/19 09/18/23 History Ascorbic Acid [Vitamin C] 500 mg PO DAILY 05/08/21 09/18/23 History Cholecalciferol (Vitamin D3) 125 mcg PO DAILY 06/06/22 09/18/23 History [Vitamin D3 (125 MCG = 5,000 IU)] Ipratropium-Albuterol Nebulize 3 ml INHALATION RT-Q6H PRN 06/06/22 09/18/23 History [Duoneb 0.5 mg-3 mg/3 ml Soln] Fluticasone Propion/Salmeterol 1 puff INHALATION RT-BID 06/07/23 09/18/23 History [Advair 100-50 Diskus] Sildenafil [Revatio] 20 mg PO TID 90 Days #30 tab 07/02/23 09/18/23 Rx Levothyroxine Sodium [Synthroid] 150 mcg PO AC-BRKFST 30 Days #30 08/27/23 09/18/23 Rx tablet Metoprolol Tartrate [Lopressor] 50 mg PO BID 30 Days #60 tab 08/27/23 09/18/23 Rx Furosemide [Lasix] 40 mg PO DAILY 09/04/23 09/18/23 History HYDROcodone/APAP 10-325MG [[place] 1 tab PO Q8H PRN 3 Days #12 tab 09/14/23 09/18/23 Rx 10-325] Warfarin [Coumadin] 3 mg PO DAILY 30 Days #30 tab 09/14/23 09/18/23 Rx Allergies Allergy/AdvReac Type Severity Reaction Status Date / Time lisinopril Allergy Unknown Verified 09/18/23 21:56 Physical Exam Vitals: Vital Signs Temp Pulse Resp BP Pulse Ox 09/19/23 07:28 69 16 115/74 96 09/19/23 05:00 61 16 108/68 100 09/19/23 03:40 61 16 91/68 100 09/19/23 01:00 67 16 108/57 100 09/18/23 23:00 72 16 107/78 99 09/18/23 20:39 62 18 107/73 100 09/18/23 19:33 97.8 F 68 18 108/55 100 Intake and Output 09/18/23 09/19/23 09/19/23 22:59 06:59 14:59 Other: Weight 46.72 kg Results 09/19/23 09:20 09/19/23 09:20 Cardiac Enzymes 09/18/23 09/18/23 Range/Units 19:43 19:43 AST 34 (14-36) U/L Troponin I <0.012 (0.000-0.034) ng/mL Coagulation 09/18/23 Range/Units 19:43 PT 22.7 H (10.0-12.5) sec APTT 31.8 H (22.0-30.0) sec CBC 09/18/23 Range/Units 19:43 WBC 8.7 (3.8-10.6) k/uL RBC 3.86 (3.80-5.40) m/uL Hgb 11.3 L (11.4-16.0) gm/dL Hct 35.9 (34.0-46.0) % Plt Count 264 (150-450) k/uL Comprehensive Metabolic Panel 09/18/23 Range/Units 19:43 Sodium 138 (137-145) mmol/L Potassium 4.6 (3.5-5.1) mmol/L Chloride 102 (98-107) mmol/L Carbon Dioxide 29 (22-30) mmol/L BUN 22 H (7-17) mg/dL Creatinine 0.54 (0.52-1.04) mg/dL Glucose 109 H (74-99) mg/dL Calcium 9.1 (8.4-10.2) mg/dL AST 34 (14-36) U/L ALT 34 (4-34) U/L Alkaline Phosphatase 120 (38-126) U/L Total Protein 7.0 (6.3-8.2) g/dL Albumin 3.6 (3.5-5.0) g/dL Current Medications Generic Name Dose Route Start Last Admin Trade Name Freq PRN Reason Stop Dose Admin Hydrocodone Bitart/Acetaminophen 1 each 09/19/23 09:02 Hydrocodone/Apap 10-325mg 1 Each Tab PO Q8H PRN Pain Albuterol/Ipratropium 3 ml 09/19/23 09:02 Ipratropium-Albuterol 3 Ml Neb INHALATION RT-Q6H PRN Shortness Of Breath Ascorbic Acid 500 mg 09/20/23 09:00 Ascorbic Acid 500 Mg Tab PO DAILY [facility] Budesonide/Formoterol Fumarate 1 puff 09/19/23 20:00 Symbicort 80-4.5 Mcg Inhaler INHALATION RT-BID [facility] Cholecalciferol 125 mcg 09/20/23 09:00 Cholecalciferol 125 Mcg (5000 Iu) Tablet PO DAILY [facility] Furosemide 40 mg 09/20/23 09:00 Furosemide 40 Mg Tab PO DAILY [facility] Levothyroxine Sodium 150 mcg 09/20/23 07:30 Levothyroxine 75 Mcg Tab PO AC-BRKFST [facility] Metoprolol Tartrate 50 mg 09/19/23 21:00 Metoprolol Tartrate 50 Mg Tab PO BID [facility] Miscellaneous Information 1 each 09/19/23 09:03 Warfarin Per Pharmacy MISCELLANE DIRECTED PRN Per Protocol Protocol Sildenafil Citrate 20 mg 09/19/23 16:00 Sildenafil 20 Mg Tab PO TID CARLOS Intake and Output 09/18/23 09/19/23 09/19/23 22:59 06:59 14:59 Other: Weight 46.72 kg 09/18/23 19:43 09/18/23 19:43
[2023-09-19] MEDS ORDERED: SILDENAFIL 20 MG TAB PO SCH (16:00)
[2023-09-19] MEDS: METOPROLOL TARTRATE 50 MG TAB PO SCH (20:13)
[2023-09-19] MEDS: SYMBICORT 80-4.5 MCG INHALER INHALATION SCH (21:32)
[2023-09-19] MEDS: HYDROcodone/APAP 10-325MG 1 EACH TAB PO PRN (22:46)
[2023-09-20] MEDS: LEVOTHYROXINE 75 MCG TAB PO SCH (06:31)
[2023-09-20] MEDS: PANTOPRAZOLE 40 MG TABLET PO SCH (06:31)
[2023-09-20 08:12] LABS: Basophils # (A) 0.1 k/uL (0-0.2); Basophils % (A) 1 %; Eosinophils # (A) 0.1 k/uL (0-0.7); Eosinophils % (A) 2 %; HCT 33.4 % (34.0-46.0); HGB 10.2 gm/dL (11.4-16.0); Hypochromasia Marked; Lymphocytes # (A) 1.4 k/uL (1.0-4.8); Lymphocytes % (A) 19 %; MCH 28.7 pg (25.0-35.0); MCHC 30.6 g/dL (31.0-37.0); MCV 93.9 fL (80.0-100.0); Monocytes # (A) 0.4 k/uL (0-1.0); Monocytes % (A) 6 %; Neutrophils # (A) 5.2 k/uL (1.3-7.7); Neutrophils % (A) 70 %; Platelet Count 236 k/uL (150-450); RBC 3.55 m/uL (3.80-5.40); WBC 7.4 k/uL (3.8-10.6)
[2023-09-20 08:28] LABS: ALT 29 U/L (4-34); AST 26 U/L (14-36); African American GFR (CKD) >90 (>60 ml/min/1.73 sqM); Albumin 3.2 g/dL (3.5-5.0); Alkaline Phosphatase 118 U/L (38-126); Anion Gap 4 mmol/L; Blood Urea Nitrogen 21 mg/dL (7-17); Calcium 8.7 mg/dL (8.4-10.2); Carbon Dioxide 33 mmol/L (22-30); Chloride 100 mmol/L (98-107); Glucose 99 mg/dL (74-99); Non-African American GFR(CKD) 83 (>60 ml/min/1.73 sqM); Potassium 4.2 mmol/L (3.5-5.1); Sodium 137 mmol/L (137-145); Total Bilirubin 0.8 mg/dL (0.2-1.3); Total Protein 6.3 g/dL (6.3-8.2)
[2023-09-20 08:30] LABS: INR 2.3 (<1.2); Prothrombin Time 22.6 sec (10.0-12.5)
[2023-09-20] MEDS: SYMBICORT 80-4.5 MCG INHALER INHALATION SCH ×2 (09:00→20:37)
[2023-09-20] MEDS: CHOLECALCIFEROL 125 MCG (5000 IU) TABLET PO SCH (09:31)
[2023-09-20] MEDS: ASPIRIN 81 MG PO SCH (09:31)
[2023-09-20] MEDS: METOPROLOL TARTRATE 50 MG TAB PO SCH ×2 (09:31→20:15)
[2023-09-20] MEDS: FUROSEMIDE 40 MG TAB PO SCH (09:32)
[2023-09-20] MEDS: ASCORBIC ACID 500 MG TAB PO SCH (09:32)
--- NOTE | 2023-09-20 10:05 | P.PN ---
Subjective Progress Note Date: 09/20/23 This is an 78-year-old female patient well-known to my services presented with complaints of increased shortness of breath. Patient has extensive medical history of oxygen dependent COPD, CHF, CHF the patient maintained on Coumadin, which would arthritis, thyroid disorder, associated arthritis, GERD. Patient reports she was getting out of the bath when she became increasingly short of breath. Upon arrival chest x-ray completed showing mild interval progression of consolation findings concerning for underlying acute heart failure. BNP 3520 troponin negative. Patient negative for influenza, RSV and COVID-19. Patient was given 1 dose of IV Lasix. Pharmacy to dose Coumadin ordered. Cardiology service is consulted. Repeat labs ordered. At this time patient reports improvement. Patient denies chest pain or shortness breath. Patient denies nausea vomiting or diarrhea. Patient denies any urinary burning or frequency. Temp 97.8, heart rate 69, respiratory 16, blood pressure 115/74 with pulse ox 96% on 3 L On 09/20/2023 patient alert and oriented 3. Patient still having occasional e pisodes of shortness breath. Cardiology services have following. Coumadin DC'd per cardiology. Current vital signs temp 97.4, height 61, respiratory rate 16, blood pressure 120/61 with pulse ox 99% on 3 L. Patient denies nausea vomiting or diarrhea. Patient denies any urinary burning or frequency Objective - Vital Signs Vital signs: Vital Signs Temp 97.4 F L 09/20/23 09:24 Pulse 61 09/20/23 09:44 Resp 16 09/20/23 09:44 BP 120/61 09/20/23 09:24 Pulse Ox 99 09/20/23 09:24 FiO2 Intake & Output 09/19/23 09/20/23 09/20/23 18:59 06:59 18:59 Intake Total 0 Output Total 150 Balance -150 0 Weight 46.72 kg 56 kg Intake: Oral 0 Output: Urine 150 Other: Voiding Method External Catheter External Catheter # Bowel Movements 0 - Exam Head normocephalic Neck supple Lungs clear to auscultation bilaterally no wheezing or crackles Heart irregular known atrial fibrillation Abdomen is soft nontender nondistended positive bowel sounds no hepatosplenomegaly Extremities no edema Neuro alert and orientated to 3 - Labs CBC & Chem 7: 09/20/23 07:58 09/20/23 07:58 Labs: Abnormal Lab Results - Last 24 Hours (Table) 09/19/23 09/19/23 09/20/23 Range/Units 09:20 09:58 07:58 RBC (3.80-5.40) m/uL Hgb (11.4-16.0) gm/dL Hct (34.0-46.0) % MCHC (31.0-37.0) g/dL PT 27.0 H 22.6 H (10.0-12.5) sec INR 2.7 H 2.3 H (<1.2) Carbon Dioxide 32 H (22-30) mmol/L BUN 18 H (7-17) mg/dL Total Protein 6.1 L (6.3-8.2) g/dL Albumin 3.1 L (3.5-5.0) g/dL 09/20/23 09/20/23 Range/Units 07:58 07:58 RBC 3.55 L (3.80-5.40) m/uL Hgb 10.2 L (11.4-16.0) gm/dL Hct 33.4 L (34.0-46.0) % MCHC 30.6 L (31.0-37.0) g/dL PT (10.0-12.5) sec INR (<1.2) Carbon Dioxide 33 H (22-30) mmol/L BUN 21 H (7-17) mg/dL Total Protein (6.3-8.2) g/dL Albumin 3.2 L (3.5-5.0) g/dL Assessment and Plan Assessment: 1. Shortness breath secondary to acute exacerbation of CHF 2. History of chronic systolic congestive heart failure 3. History of paroxysmal atrial fibrillation maintained on Coumadin 4. 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 History of pulmonary hypertension 6. History of COPD 7. History of hypothyroidism 8. History of rheumatoid arthritis 9. History of chronic kidney disease DVT prophylaxis Lovenox . GI prophylaxis Protonix Cardiology services consulted Coumadin DC'd per cardiology Repeat labs ordered home meds resumed
[2023-09-20 14:17] VITALS: BMI 24.0
[2023-09-20] MEDS: ALPRAZolam 0.25 MG TAB PO PRN (20:15)
[2023-09-20] MEDS: HYDROcodone/APAP 10-325MG 1 EACH TAB PO PRN (20:15)
[2023-09-21] MEDS: LEVOTHYROXINE 75 MCG TAB PO SCH (06:29)
[2023-09-21] MEDS: PANTOPRAZOLE 40 MG TABLET PO SCH (06:29)
[2023-09-21] MEDS: SYMBICORT 80-4.5 MCG INHALER INHALATION SCH ×2 (08:53→21:24)
[2023-09-21] MEDS: ASCORBIC ACID 500 MG TAB PO SCH (09:02)
[2023-09-21] MEDS: ASPIRIN 81 MG PO SCH (09:02)
[2023-09-21] MEDS: METOPROLOL TARTRATE 50 MG TAB PO SCH ×2 (09:03→20:27)
[2023-09-21] MEDS: CHOLECALCIFEROL 125 MCG (5000 IU) TABLET PO SCH (09:03)
[2023-09-21] MEDS: ENOXAPARIN 40 MG/0.4 ML SYRINGE SQ SCH (09:03)
[2023-09-21] MEDS: FUROSEMIDE 40 MG TAB PO SCH (09:03)
[2023-09-21 09:52] LABS: Basophils % (A) 1 %; Eosinophils # (A) 0.2 k/uL (0-0.7); Eosinophils % (A) 3 %; HCT 35.2 % (34.0-46.0); HGB 10.7 gm/dL (11.4-16.0); Hypochromasia Marked; Lymphocytes # (A) 1.4 k/uL (1.0-4.8); Lymphocytes % (A) 23 %; MCH 28.7 pg (25.0-35.0); MCHC 30.3 g/dL (31.0-37.0); MCV 94.5 fL (80.0-100.0); Mean Platelet Volume 8.3; Monocytes # (A) 0.3 k/uL (0-1.0); Monocytes % (A) 5 %; Neutrophils % (A) 66 %; Platelet Count 226 k/uL (150-450); RBC 3.73 m/uL (3.80-5.40); RDW 15.1 % (11.5-15.5); WBC 6.1 k/uL (3.8-10.6)
[2023-09-21 10:23] LABS: ALT 26 U/L (4-34); AST 27 U/L (14-36); African American GFR (CKD) >90 (>60 ml/min/1.73 sqM); Albumin 3.3 g/dL (3.5-5.0); Alkaline Phosphatase 113 U/L (38-126); Anion Gap 9 mmol/L; Blood Urea Nitrogen 21 mg/dL (7-17); Calcium 8.7 mg/dL (8.4-10.2); Carbon Dioxide 30 mmol/L (22-30); Chloride 101 mmol/L (98-107); Glucose 97 mg/dL (74-99); Non-African American GFR(CKD) 80 (>60 ml/min/1.73 sqM); Potassium 3.8 mmol/L (3.5-5.1); Sodium 140 mmol/L (137-145); Total Bilirubin 0.8 mg/dL (0.2-1.3); Total Protein 6.4 g/dL (6.3-8.2)
[2023-09-21] MEDS: ALPRAZolam 0.25 MG TAB PO PRN ×2 (15:57→21:50)
[2023-09-22] MEDS: LEVOTHYROXINE 75 MCG TAB PO SCH (06:28)
[2023-09-22] MEDS: PANTOPRAZOLE 40 MG TABLET PO SCH (06:28)
[2023-09-22 08:31] LABS: Basophils # (A) 0.1 k/uL (0-0.2); Basophils % (A) 1 %; Eosinophils # (A) 0.3 k/uL (0-0.7); Eosinophils % (A) 4 %; HCT 32.7 % (34.0-46.0); Hypochromasia Marked; Lymphocytes # (A) 1.5 k/uL (1.0-4.8); Lymphocytes % (A) 24 %; MCH 28.6 pg (25.0-35.0); MCHC 30.5 g/dL (31.0-37.0); MCV 93.7 fL (80.0-100.0); Mean Platelet Volume 8.8; Monocytes # (A) 0.3 k/uL (0-1.0); Monocytes % (A) 5 %; Neutrophils # (A) 3.9 k/uL (1.3-7.7); Neutrophils % (A) 61 %; Platelet Count 208 k/uL (150-450); RBC 3.49 m/uL (3.80-5.40); RDW 15.1 % (11.5-15.5); WBC 6.3 k/uL (3.8-10.6)
[2023-09-22 08:44] LABS: INR 1.4 (<1.2)
[2023-09-22 09:03] LABS: ALT 24 U/L (4-34); AST 23 U/L (14-36); African American GFR (CKD) 76 (>60 ml/min/1.73 sqM); Alkaline Phosphatase 122 U/L (38-126); Anion Gap 4 mmol/L; Blood Urea Nitrogen 22 mg/dL (7-17); Calcium 8.4 mg/dL (8.4-10.2); Carbon Dioxide 35 mmol/L (22-30); Chloride 99 mmol/L (98-107); Glucose 84 mg/dL (74-99); Non-African American GFR(CKD) 66 (>60 ml/min/1.73 sqM); Sodium 138 mmol/L (137-145); Total Bilirubin 0.7 mg/dL (0.2-1.3); Total Protein 6.1 g/dL (6.3-8.2)
[2023-09-22] MEDS: SYMBICORT 80-4.5 MCG INHALER INHALATION SCH ×2 (09:47→20:39)
[2023-09-22] MEDS: CHOLECALCIFEROL 125 MCG (5000 IU) TABLET PO SCH (09:53)
[2023-09-22] MEDS: METOPROLOL TARTRATE 50 MG TAB PO SCH (09:53)
[2023-09-22] MEDS: ENOXAPARIN 40 MG/0.4 ML SYRINGE SQ SCH (09:53)
[2023-09-22] MEDS: FUROSEMIDE 40 MG TAB PO SCH (09:53)
[2023-09-22] MEDS: ASCORBIC ACID 500 MG TAB PO SCH (09:53)
[2023-09-22] MEDS: ASPIRIN 81 MG PO SCH (09:54)
[2023-09-22] MEDS: DAPAGLIFLOZIN PROPANEDIOL 10 MG TABLET PO SCH (12:11)
--- NOTE | 2023-09-22 13:52 | P.PN ---
Subjective HISTORY OF PRESENT ILLNESS: 09/19/2023 This is an 78-year-old female patient of Dr. Flores with past medical history of persistent atrial fibrillation/flutter on Coumadin, known EF of 37%, history of mitral valve repair, nonischemic cardiomyopathy, pulmonary hypertension, hypothyroidism, patient was recently hospitalized last week for A-fib with RVR was maintained on her normal cardiac medications and discharged home with rate control. We have been asked to evaluate the patient for atrial flutter and CHF. EKG atrial flutter at a controlled rate Chest x-ray: Mild interval progression of a constellation of findings concerning for underlying acute heart failure. WBC 5.9, hemoglobin 10.3, platelet count 234. INR 2.7. Sodium 138, potassium 4.4, BUN 18 creatinine 0.61. Influenza A, influenza B, RSV, COVID-19 not d etected.. Home cardiac medications: Lasix 40 mg daily, Lopressor 50 mg twice daily, Revatio 20 mg 3 times daily, Coumadin 3 mg daily, also on levothyroxine 150 g daily Echocardiogram in June 2023 revealed ejection fraction 30-35%, severe pulmonary hypertension, bioprosthetic aortic valve, and mitral valve repair with mild MR Cardiac catheterization history: October 2017 revealing normal coronary arteries Cardioversion 07/05/2022 for atrial flutter with cheondoism of sinus rhythm Aortic valve replacement 10/13/2017 with Magna Ease bioprosthetic aortic valve, mitral valve repair with [employer] annular flex band, clip ligation of the left atrial appendage. MATTHEW performed 01/30/2018 revealed sutured left atrial appendage, bioprosthetic aortic valve with normal functioning, mitral annuloplasty with mitral valve repair and mild mitral regurgitation. Moderate tricuspid regurgitation. No e vidence of shunting across the intra-atrial septum. 09/22/2023 Patient examined this morning at the bedside. Patient denies chest pain or pressure. She currently denies shortness of breath. She states that wearing oxygen has helped her breathing. Bedside telemetry reveals atrial flutter/fibrillation with controlled ventricular rate. Blood pressures are soft with a systolic in the 90s. She remains on 3 L nasal cannula. PHYSICAL EXAM: VITAL SIGNS: Reviewed. GENERAL: Well-developed in no acute distress. NECK: Supple. No JVD or thyromegaly LUNGS: Respirations even and unlabored. Lungs essentially clear to auscultation bilaterally. HEART: Regular rate and rhythm. S1 and S2 heard. EXTREMITIES: Normal range of motion. No clubbing or cyanosis. Peripheral pulses intact. No lower extremity edema ASSESSMENT: Persistent atrial fibrillation/typical atrial flutter with RVR, currently rate controlled Mitral valve repair Nonischemic cardiomyopathy Pulmonary hypertension Hypothyroidism History of sutured left atrial appendage History of bioprosthetic aortic valve replacement PLAN: Continue current cardiac medications Begin Farxiga [address] Flores discussed anticoagulation with patient. Coumadin has been discontinued. Patient agreeable. Patient is currently stable from a cardiac perspective Nurse practitioner note has been reviewed by physician. Signing provider agrees with the documented findings, assessment, and plan of care. Objective - Vital Signs Vital signs: Vital Signs Temp 98.1 F 09/22/23 08:30 Pulse 61 09/22/23 08:30 Resp 17 09/22/23 08:30 BP 93/51 09/22/23 08:30 Pulse Ox 98 09/22/23 08:30 FiO2 Intake & Output 09/21/23 09/22/23 09/22/23 18:59 06:59 18:59 Intake Total 898 200 420 Output Total 900 Balance 898 -700 420 Weight 54 kg Intake: IV 20 Invasive Line 1 20 Oral 898 180 420 Output: Urine 900 Other: Voiding Method External Catheter External Catheter External Catheter # Voids 1 - Labs CBC & Chem 7: 09/22/23 07:27 09/22/23 07:27 Labs: Abnormal Lab Results - Last 24 Hours (Table) 09/22/23 09/22/23 09/22/23 Range/Units 07:27 07:27 07:54 RBC 3.49 L (3.80-5.40) m/uL Hgb 10.0 L (11.4-16.0) gm/dL Hct 32.7 L (34.0-46.0) % MCHC 30.5 L (31.0-37.0) g/dL PT 15.0 H (10.0-12.5) sec INR 1.4 H (<1.2) Carbon Dioxide 35 H (22-30) mmol/L BUN 22 H (7-17) mg/dL Total Protein 6.1 L (6.3-8.2) g/dL Albumin 3.0 L (3.5-5.0) g/dL
--- NOTE | 2023-09-22 14:05 | P.PN ---
Subjective Progress Note Date: 09/21/23 This is an 78-year-old female patient well-known to my services presented with complaints of increased shortness of breath. Patient has extensive medical history of oxygen dependent COPD, CHF, CHF the patient maintained on Coumadin, which would arthritis, thyroid disorder, associated arthritis, GERD. Patient reports she was getting out of the bath when she became increasingly short of breath. Upon arrival chest x-ray completed showing mild interval progression of consolation findings concerning for underlying acute heart failure. BNP 3520 troponin negative. Patient negative for influenza, RSV and COVID-19. Patient was given 1 dose of IV Lasix. Pharmacy to dose Coumadin ordered. Cardiology service is consulted. Repeat labs ordered. At this time patient reports improvement. Patient denies chest pain or shortness breath. Patient denies nausea vomiting or diarrhea. Patient denies any urinary burning or frequency. Temp 97.8, heart rate 69, respiratory 16, blood pressure 115/74 with pulse ox 96% on 3 L On 09/20/2023 patient alert and oriented 3. Patient still having occasional e pisodes of shortness breath. Cardiology services have following. Coumadin DC'd per cardiology. Current vital signs temp 97.4, height 61, respiratory rate 16, blood pressure 120/61 with pulse ox 99% on 3 L. Patient denies nausea vomiting or diarrhea. Patient denies any urinary burning or frequency On 09/21/2023 patient was seen and examined on the telemetry floor, she is alert and oriented 3. She is still havingl episodes of shortness breath, otherwise she denies any complaints there is no fever or chills no headache or dizziness no chest pain no nausea or vomiting no abdominal pain no diarrhea and no urinary symptoms. Objective - Vital Signs Vital signs: Vital Signs Temp 98.0 F 09/21/23 08:54 Pulse 70 09/21/23 08:54 Resp 16 09/21/23 08:54 BP 92/55 09/21/23 08:54 Pulse Ox 100 09/21/23 08:54 FiO2 Intake & Output 09/20/23 09/21/23 09/21/23 18:59 06:59 18:59 Intake Total 360 Output Total 1050 200 Balance -690 -200 Weight 56 kg 54.5 kg Intake: Oral 360 Output: Urine 1050 200 Other: Voiding Method External Catheter External Catheter - Exam Head normocephalic Neck supple Lungs clear to auscultation bilaterally no wheezing or crackles Heart irregular known atrial fibrillation Abdomen is soft nontender nondistended positive bowel sounds no hepatosplenomegaly Extremities no edema Neuro alert and orientated to 3 - Labs CBC & Chem 7: 09/22/23 07:27 09/22/23 07:27 Assessment and Plan Assessment: 1. Shortness breath secondary to acute exacerbation of CHF 2. History of chronic systolic congestive heart failure 3. History of paroxysmal atrial fibrillation maintained on Coumadin 4. 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 History of pulmonary hypertension 6. History of COPD 7. History of hypothyroidism 8. History of rheumatoid arthritis 9. History of chronic kidney disease DVT prophylaxis Lovenox . GI prophylaxis Protonix Cardiology services consulted Coumadin DC'd per cardiology Repeat labs ordered home meds resumed
[2023-09-23] MEDS: METOPROLOL TARTRATE 50 MG TAB PO SCH ×2 (06:39→08:26)
[2023-09-23] MEDS: LEVOTHYROXINE 75 MCG TAB PO SCH (06:40)
[2023-09-23] MEDS: PANTOPRAZOLE 40 MG TABLET PO SCH (06:40)
[2023-09-23] MEDS: ASPIRIN 81 MG PO SCH (08:26)
[2023-09-23] MEDS: FUROSEMIDE 40 MG TAB PO SCH (08:26)
[2023-09-23] MEDS: ENOXAPARIN 40 MG/0.4 ML SYRINGE SQ SCH (08:26)
[2023-09-23] MEDS: ASCORBIC ACID 500 MG TAB PO SCH (08:26)
[2023-09-23] MEDS: CHOLECALCIFEROL 125 MCG (5000 IU) TABLET PO SCH (08:26)
[2023-09-23] MEDS: DAPAGLIFLOZIN PROPANEDIOL 10 MG TABLET PO SCH (08:26)
[2023-09-23 08:42] VITALS: BP 97/61; PULSE 72; RESP 18; TEMP 97.5
[2023-09-23] MEDS: SYMBICORT 80-4.5 MCG INHALER INHALATION SCH (09:44)
--- NOTE | 2023-09-23 10:14 | P.DS ---
Providers Date of admission: 09/18/23 21:33 Expected date of discharge: 09/23/23 Attending physician: Olya Olson Consults: 09/18/23 21:26 Consult Physician Routine Consulting Provider: [facility] Consult Reason/Comments: a flutter, chf Do you want consulting provider notified?: Yes Primary care physician: Olya [facility] Course: Diagnosis on discharge: 1. Shortness breath secondary to acute exacerbation of CHF 2. History of chronic systolic congestive heart failure 3. History of paroxysmal atrial fibrillation maintained on Coumadin 4. 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 History of pulmonary hypertension 6. History of COPD 7. History of hypothyroidism 8. History of rheumatoid arthritis 9. History of chronic kidney disease Hospital course: This is an 78-year-old female patient well-known to my services presented with complaints of increased shortness of breath. Patient has extensive medical history of oxygen dependent COPD, CHF, CHF the patient maintained on Coumadin, which would arthritis, thyroid disorder, associated arthritis, GERD. Patient reports she was getting out of the bath when she became increasingly short of breath. Upon arrival chest x-ray completed showing mild interval progression of consolation findings concerning for underlying acute heart failure. BNP 3520 troponin negative. Patient negative for influenza, RSV and COVID-19. Patient was given 1 dose of IV Lasix. Pharmacy to dose Coumadin ordered. Cardiology service is consulted. Repeat labs ordered. At this time patient reports improvement. Patient denies chest pain or shortness breath. Patient denies nausea vomiting or diarrhea. Patient denies any urinary burning or frequency. Temp 97.8, heart rate 69, respiratory 16, blood pressure 115/74 with pulse ox 96% on 3 L On 09/20/2023 patient alert and oriented 3. Patient still having occasional episodes of shortness breath. Cardiology services have following. Coumadin DC'd per cardiology. Current vital signs temp 97.4, height 61, respiratory rate 16, blood pressure 120/61 with pulse ox 99% on 3 L. Patient denies nausea vomiting or diarrhea. Patient denies any urinary burning or frequency On 09/21/2023 patient was seen and examined on the telemetry floor, she is alert and oriented 3. She is still havingl episodes of shortness breath, otherwise she denies any complaints there is no fever or chills no headache or dizziness no chest pain no nausea or vomiting no abdominal pain no diarrhea and no urinary symptoms. On 09/23/2023 patient is alert and oriented 3. Discussed case with case management patient will be arranged with wheelchair van. Patient to follow-up with PCP for further management. Coumadin DC'd per cardiology services. At this time patient denies chest pain or shortness breath. Patient denies nausea vomiting or diarrhea. Patient denies any urinary burning or frequency Patient Condition at Discharge: Stable Plan - Discharge Summary Discharge Rx Participant: Yes New Discharge Prescriptions: New Aspirin 81 mg PO DAILY tab Dapagliflozin Propanediol [Farxiga] 10 mg PO DAILY 30 Days #30 tab Continue Albuterol Sulfate [Proair Hfa] 2 puff INHALATION RT-Q6H PRN PRN Reason: Shortness Of Breath Ascorbic Acid [Vitamin C] 500 mg PO DAILY Cholecalciferol (Vitamin D3) [Vitamin D3 (125 MCG = 5,000 IU)] 125 mcg PO DAILY Ipratropium-Albuterol Nebulize [Duoneb 0.5 mg-3 mg/3 ml Soln] 3 ml INHALATION RT-Q6H PRN PRN Reason: Shortness Of Breath Fluticasone Propion/Salmeterol [Advair 100-50 Diskus] 1 puff INHALATION RT- BID Levothyroxine Sodium [Synthroid] 150 mcg PO AC-BRKFST 30 Days #30 tablet Metoprolol Tartrate [Lopressor] 50 mg PO BID 30 Days #60 tab Furosemide [Lasix] 40 mg PO DAILY HYDROcodone/APAP 10-325MG [[place] 10-325] 1 tab PO Q8H PRN 3 Days #12 tab PRN Reason: Pain Discontinued Sildenafil [Revatio] 20 mg PO TID 90 Days #30 tab Warfarin [Coumadin] 3 mg PO DAILY 30 Days #30 tab Discharge Medication List Albuterol Sulfate [Proair Hfa] 2 puff INHALATION RT-Q6H PRN 07/28/19 [History] Ascorbic Acid [Vitamin C] 500 mg PO DAILY 05/08/21 [History] Cholecalciferol (Vitamin D3) [Vitamin D3 (125 MCG = 5,000 IU)] 125 mcg PO DAILY 06/06/22 [History] Ipratropium-Albuterol Nebulize [Duoneb 0.5 mg-3 mg/3 ml Soln] 3 ml INHALATION RT-Q6H PRN 06/06/22 [History] Fluticasone Propion/Salmeterol [Advair 100-50 Diskus] 1 puff INHALATION RT-BID 06/07/23 [History] Levothyroxine Sodium [Synthroid] 150 mcg PO AC-BRKFST 30 Days #30 tablet 08/27/23 [Rx] Metoprolol Tartrate [Lopressor] 50 mg PO BID 30 Days #60 tab 08/27/23 [Rx] Furosemide [Lasix] 40 mg PO DAILY 09/04/23 [History] HYDROcodone/APAP 10-325MG [[place] 10-325] 1 tab PO Q8H PRN 3 Days #12 tab 09/14/23 [Rx] Aspirin 81 mg PO DAILY tab 09/22/23 [Rx] Dapagliflozin Propanediol [Farxiga] 10 mg PO DAILY 30 Days #30 tab 09/22/23 [Rx] Follow up Appointment(s)/Referral(s): Olya Olson MD [Primary Care Provider] - 1-2 days Discharge Disposition: HOME SELF-CARE
--- NOTE | 2023-09-23 11:27 | P.PN ---
Subjective HISTORY OF PRESENT ILLNESS: 09/19/2023 This is an 78-year-old female patient of Dr. Flores with past medical history of persistent atrial fibrillation/flutter on Coumadin, known EF of 37%, history of mitral valve repair, nonischemic cardiomyopathy, pulmonary hypertension, hypothyroidism, patient was recently hospitalized last week for A-fib with RVR was maintained on her normal cardiac medications and discharged home with rate control. We have been asked to evaluate the patient for atrial flutter and CHF. EKG atrial flutter at a controlled rate Chest x-ray: Mild interval progression of a constellation of findings concerning for underlying acute heart failure. WBC 5.9, hemoglobin 10.3, platelet count 234. INR 2.7. Sodium 138, potassium 4.4, BUN 18 creatinine 0.61. Influenza A, influenza B, RSV, COVID-19 not d etected.. Home cardiac medications: Lasix 40 mg daily, Lopressor 50 mg twice daily, Revatio 20 mg 3 times daily, Coumadin 3 mg daily, also on levothyroxine 150 g daily Echocardiogram in June 2023 revealed ejection fraction 30-35%, severe pulmonary hypertension, bioprosthetic aortic valve, and mitral valve repair with mild MR Cardiac catheterization history: October 2017 revealing normal coronary arteries Cardioversion 07/05/2022 for atrial flutter with temple of sinus rhythm Aortic valve replacement 10/13/2017 with [employer] bioprosthetic aortic valve, mitral valve repair with [employer] annular flex band, clip ligation of the left atrial appendage. MATTHEW performed 01/30/2018 revealed sutured left atrial appendage, bioprosthetic aortic valve with normal functioning, mitral annuloplasty with mitral valve repair and mild mitral regurgitation. Moderate tricuspid regurgitation. No e vidence of shunting across the intra-atrial septum. 09/22/2023 Patient examined this morning at the bedside. Patient denies chest pain or pressure. She currently denies shortness of breath. She states that wearing oxygen has helped her breathing. Bedside telemetry reveals atrial flutter/fibrillation with controlled ventricular rate. Blood pressures are soft with a systolic in the 90s. She remains on 3 L nasal cannula. September 23, 2023 Patient examined this morning at the bedside. Patient currently denies chest pain or pressure. She denies shortness of breath. Vital signs are stable. She is hoping to be discharged today. PHYSICAL EXAM: VITAL SIGNS: Reviewed. GENERAL: Well-developed in no acute distress. NECK: Supple. No JVD or thyromegaly LUNGS: Respirations even and unlabored. Lungs essentially clear to auscultation bilaterally. HEART: Regular rate and rhythm. S1 and S2 heard. Systolic murmur noted EXTREMITIES: Normal range of motion. No clubbing or cyanosis. Peripheral pulses intact. No lower extremity edema ASSESSMENT: Persistent atrial fibrillation/typical atrial flutter with RVR, currently rate controlled Mitral valve repair Nonischemic cardiomyopathy Pulmonary hypertension Hypothyroidism History of sutured left atrial appendage History of bioprosthetic aortic valve replacement PLAN: Continue current cardiac medications Dr. Flores discussed anticoagulation with patient. Coumadin has been discontinued. Patient agreeable. Patient is stable for discharge home today from a cardiac standpoint She has to follow-up in the office postdischarge with Dr. Flores Nurse practitioner note has been reviewed by physician. Signing provider agrees with the documented findings, assessment, and plan of care. Objective - Vital Signs Vital signs: Vital Signs Temp 97.5 F L 09/23/23 08:00 Pulse 72 09/23/23 08:00 Resp 18 09/23/23 08:00 BP 97/61 09/23/23 08:00 Pulse Ox 97 09/23/23 09:45 FiO2 Intake & Output 09/22/23 09/23/23 09/23/23 18:59 06:59 18:59 Intake Total 1080 240 240 Output Total 1200 Balance -120 240 240 Intake: Oral 1080 240 240 Output: Urine 1200 Other: Voiding Method External Catheter External Catheter External Catheter # Voids 1 # Bowel Movements 0 - Labs CBC & Chem 7: 09/22/23 07:27 09/22/23 07:27
== END 2023-09-23 11:55 | disposition home or self-care (01) ==
LOC: EC 19:28 → 6NMEDSUR 21:33 → 3SCARD 09-19 06:10
PROVIDERS: ADMIT Internal Medicine; ATTEND Internal Medicine
DX: I13.0 Hypertensive heart and chronic kidney disease with heart failure and stage 1 through stage 4 chronic kidney disease, or unspecified chronic kidney disease (principal); I50.23 Acute on chronic systolic (congestive) heart failure; N18.9 Chronic kidney disease, unspecified; J44.9 Chronic obstructive pulmonary disease, unspecified; K21.9 Gastro-esophageal reflux disease without esophagitis; I48.0 Paroxysmal atrial fibrillation; E89.0 Postprocedural hypothyroidism; I42.8 Other cardiomyopathies; I27.20 Pulmonary hypertension, unspecified; M06.9 Rheumatoid arthritis, unspecified; Z20.822 Contact with and (suspected) exposure to COVID-19; Z87.891 Personal history of nicotine dependence; Z95.1 Presence of aortocoronary bypass graft; Z95.3 Presence of xenogenic heart valve; Z99.81 Dependence on supplemental oxygen; Z79.01 Long term (current) use of anticoagulants; Z79.51 Long term (current) use of inhaled steroids; Z79.890 Hormone replacement therapy; Z79.899 Other long term (current) drug therapy
CPT/HCPCS: 96372 ×3; 96374; 99285; 36415; 94640 ×8; 94760 ×4; 93005; 83880; 80053 ×5; 83605; 83735; 84484; 85025 ×5; 85610 ×4; 85730; 87636; 71046; G0378 ×6; J1940; J1650 ×3

== ENCOUNTER 2023-09-30 05:23 | Inpatient (IN) | payer MEDICARE, OTHER ==
--- NOTE | 2023-09-30 06:08 | ED ---
SOB HPI - General Chief Complaint: Shortness of Breath Stated Complaint: SOB Time Seen by Provider: 09/30/23 06:02 Source: EMS Mode of arrival: EMS Limitations: no limitations - Related Data Home Medications Medication Instructions Recorded Confirmed Albuterol Sulfate [Proair Hfa] 2 puff INHALATION RT-Q6H PRN 07/28/19 09/18/23 Ascorbic Acid [Vitamin C] 500 mg PO DAILY 05/08/21 09/18/23 Cholecalciferol (Vitamin D3) 125 mcg PO DAILY 06/06/22 09/18/23 [Vitamin D3 (125 MCG = 5,000 IU)] Ipratropium-Albuterol Nebulize 3 ml INHALATION RT-Q6H PRN 06/06/22 09/18/23 [Duoneb 0.5 mg-3 mg/3 ml Soln] Fluticasone Propion/Salmeterol 1 puff INHALATION RT-BID 06/07/23 09/18/23 [Advair 100-50 Diskus] Furosemide [Lasix] 40 mg PO DAILY 09/04/23 09/18/23 Previous Rx's Medication Instructions Recorded Levothyroxine Sodium [Synthroid] 150 mcg PO AC-BRKFST 30 Days #30 08/27/23 tablet Metoprolol Tartrate [Lopressor] 50 mg PO BID 30 Days #60 tab 08/27/23 HYDROcodone/APAP 10-325MG [[place] 1 tab PO Q8H PRN 3 Days #12 tab 09/14/23 10-325] Aspirin 81 mg PO DAILY tab 09/22/23 Dapagliflozin Propanediol [Farxiga] 10 mg PO DAILY 30 Days #30 tab 09/22/23 Allergies Allergy/AdvReac Type Severity Reaction Status Date / Time lisinopril Allergy Unknown Verified 09/18/23 21:56 Review of Systems ROS Statement: Those systems with pertinent positive or pertinent negative responses have been documented in the HPI. ROS Other: All systems not noted in ROS Statement are negative. Past Medical History Past Medical History: Atrial Fibrillation, Heart Failure, COPD, GERD/Reflux, Osteoarthritis (OA), Renal Disease, Rheumatoid Arthritis (RA), Supraventricular Tachycardia (SVT), Thyroid Disorder Additional Past Medical History / Comment(s): Valvular heart disease with previous aortic valve replacement and a mitral valve repair, congestion heart failure, Paroxysmal Afib, history of SVT, history of nonsustained VT, SOB with exertion, home O2 at 2L/NC usually prn but lately ATC, arthritis, RA several joints, current L elbow pain/swelling-had "injection", nephrolithiasis, hypothyroid, diverticular dx, UTI, iron deficiency anemia. 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 History of Any Multi-Drug Resistant Organisms: None Reported Past Surgical History: Coronary Bypass/CABG, Heart Catheterization, Hysterectomy, Joint Replacement, Orthopedic Surgery Additional Past Surgical History / Comment(s): Geoff total knees arthroplasty,lt hip arthroplasty, goiter removed 1962, partial thyroidectomy, cataracts removed with lens implants, REVERSE TOTAL RIGHT SHOULDER; Rotator cuff R shoulder, cervical fusion/injections, colonoscopy 2016(next after 5yr), MATTHEW, valve surgery at [facility] 10/13/17 Prosthetic Aortic valve and mitral valve repair. Total abdominal hysterectomy in the . Past Anesthesia/Blood Transfusion Reactions: Postoperative Nausea & Vomiting (PONV) Past Psychological History: No Psychological Hx Reported Smoking Status: Former smoker Past Alcohol Use History: None Reported Past Drug Use History: None Reported - Past Family History Father Family Medical History: Cancer, Myocardial Infarction ([place]) Additional Family Medical History / Comment(s): in his 80's of a mi. Colon cancer. Mother Family Medical History: No Reported History Additional Family Medical History / Comment(s): age 88 . hx smoking. Daughter(s) Family Medical History: Cancer Additional Family Medical History / Comment(s): from vulvar cancer. General Exam Limitations: no limitations Course Vital Signs 09/30/23 09/30/23 05:24 05:32 Temperature 97.3 F L Pulse Rate 134 H Respiratory 22 22 Rate Blood Pressure 142/98 O2 Sat by Pulse 97 Oximetry Disposition Referrals: Olya Olson MD [Primary Care Provider] - 1-2 days
[2023-09-30 06:10] LABS: Basophils # (A) 0.1 k/uL (0-0.2); Basophils % (A) 1 %; Eosinophils # (A) 0.2 k/uL (0-0.7); Eosinophils % (A) 3 %; HCT 34.5 % (34.0-46.0); Hypochromasia Marked; Lymphocytes # (A) 1.2 k/uL (1.0-4.8); Lymphocytes % (A) 16 %; MCH 29.3 pg (25.0-35.0); MCHC 31.9 g/dL (31.0-37.0); MCV 91.7 fL (80.0-100.0); Mean Platelet Volume 7.9; Monocytes # (A) 0.3 k/uL (0-1.0); Monocytes % (A) 4 %; Neutrophils # (A) 5.9 k/uL (1.3-7.7); Neutrophils % (A) 75 %; Platelet Count 222 k/uL (150-450); RBC 3.77 m/uL (3.80-5.40); RDW 15.7 % (11.5-15.5); WBC 7.8 k/uL (3.8-10.6)
--- NOTE | 2023-09-30 06:11 | ED ---
SOB HPI - General Chief Complaint: Shortness of Breath Stated Complaint: SOB Time Seen by Provider: 09/30/23 06:02 Source: EMS Mode of arrival: EMS Limitations: no limitations - History of Present Illness Initial Comments: The is an 78-year-old female well known to our emergency department for frequent visits due to dyspnea secondary to CHF, A. fib with RVR and COPD. Patient is brought in today by EMS for similar complaints. He was discharged from our hospital 7 days ago after a 5 day hospitalization, questionable compliance with her home medications. EMS was called this morning due to difficulty breathing found the patient to be wheezing and hypoxic and tachycardic with EKG concerning for A. fib with RVR heart rate in the 130s. Patient received breathing treatment and steroids and route. - Related Data Home Medications Medication Instructions Recorded Confirmed Albuterol Sulfate [Proair Hfa] 2 puff INHALATION RT-Q6H PRN 07/28/19 09/18/23 Ascorbic Acid [Vitamin C] 500 mg PO DAILY 05/08/21 09/18/23 Cholecalciferol (Vitamin D3) 125 mcg PO DAILY 06/06/22 09/18/23 [Vitamin D3 (125 MCG = 5,000 IU)] Ipratropium-Albuterol Nebulize 3 ml INHALATION RT-Q6H PRN 06/06/22 09/18/23 [Duoneb 0.5 mg-3 mg/3 ml Soln] Fluticasone Propion/Salmeterol 1 puff INHALATION RT-BID 06/07/23 09/18/23 [Advair 100-50 Diskus] Furosemide [Lasix] 40 mg PO DAILY 09/04/23 09/18/23 Previous Rx's Medication Instructions Recorded Levothyroxine Sodium [Synthroid] 150 mcg PO AC-BRKFST 30 Days #30 08/27/23 tablet Metoprolol Tartrate [Lopressor] 50 mg PO BID 30 Days #60 tab 08/27/23 HYDROcodone/APAP 10-325MG [[place] 1 tab PO Q8H PRN 3 Days #12 tab 09/14/23 10-325] Aspirin 81 mg PO DAILY tab 09/22/23 Dapagliflozin Propanediol [Farxiga] 10 mg PO DAILY 30 Days #30 tab 09/22/23 Allergies Allergy/AdvReac Type Severity Reaction Status Date / Time lisinopril Allergy Unknown Verified 09/18/23 21:56 Review of Systems ROS Statement: Those systems with pertinent positive or pertinent negative responses have been documented in the HPI. ROS Other: All systems not noted in ROS Statement are negative. Past Medical History Past Medical History: Atrial Fibrillation, Heart Failure, COPD, GERD/Reflux, Osteoarthritis (OA), Renal Disease, Rheumatoid Arthritis (RA), Supraventricular Tachycardia (SVT), Thyroid Disorder Additional Past Medical History / Comment(s): Valvular heart disease with previ ous aortic valve replacement and a mitral valve repair, congestion heart failure, Paroxysmal Afib, history of SVT, history of nonsustained VT, SOB with exertion, home O2 at 2L/NC usually prn but lately ATC, arthritis, RA several joints, current L elbow pain/swelling-had "injection", nephrolithiasis, hypothyroid, diverticular dx, UTI, iron deficiency anemia. 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 History of Any Multi-Drug Resistant Organisms: None Reported Past Surgical History: Coronary Bypass/CABG, Heart Catheterization, Hysterectomy, Joint Replacement, Orthopedic Surgery Additional Past Surgical History / Comment(s): Geoff total knees arthroplasty,lt hip arthroplasty, goiter removed 1962, partial thyroidectomy, cataracts removed with lens implants, REVERSE TOTAL RIGHT SHOULDER; Rotator cuff R shoulder, cer vical fusion/injections, colonoscopy 2017(next after 5yr), MATTHEW, valve surgery at [facility] 10/13/17 Prosthetic Aortic valve and mitral valve repair. Total abdominal hysterectomy in the . Past Anesthesia/Blood Transfusion Reactions: Postoperative Nausea & Vomiting (PONV) Past Psychological History: No Psychological Hx Reported Smoking Status: Former smoker Past Alcohol Use History: None Reported Past Drug Use History: None Reported - Past Family History Father Family Medical History: Cancer, Myocardial Infarction ([place]) Additional Family Medical History / Comment(s): in his 80's of a mi. Colon cancer. Mother Family Medical History: No Reported History Additional Family Medical History / Comment(s): age 88 . hx smoking. Daughter(s) Family Medical History: Cancer Additional Family Medical History / Comment(s): from vulvar cancer. General Exam Limitations: no limitations General appearance: alert, other (Mild respiratory distress) Head exam: Present: atraumatic, normocephalic Eye exam: Present: PERRL Respiratory exam: Present: wheezes Cardiovascular Exam: Present: tachycardia, irregular rhythm, systolic murmur GI/Abdominal exam: Present: soft Neurological exam: Present: alert Skin exam: Present: warm, dry Course Vital Signs 09/30/23 09/30/23 05:24 05:32 Temperature 97.3 F L Pulse Rate 134 H Respiratory 22 22 Rate Blood Pressure 142/98 O2 Sat by Pulse 97 Oximetry Medical Decision Making - Medical Decision Making Was pt. sent in by a medical professional or institution (DOC [facility]pa, TITLE DEPARTMENT MANAGER, urgent care, hospital, or usp...) When possible be specific @ -No Did you speak to anyone other than the patient for history (EMS, parent, family, police, friend...)? What history was obtained from this source @ -No Did you review nursing and triage notes (agree or disagree)? Why? @ -I reviewed and agree with nursing and triage notes Were old charts reviewed (outside hosp., previous admission, EMS record, old EKG, old radiological studies, urgent care reports/EKG's, usp records)? Report findings @ -No old charts were reviewed Differential Diagnosis (chest pain, altered mental status, abdominal pain women, abdominal pain men, vaginal bleeding, weakness, fever, dyspnea, syncope, headache, dizziness, GI bleed, back pain, seizure, CVA, palpatations, mental health)? @ -not applicable EKG interpreted by me (3pts min.). @ -As above X-rays interpreted by me (1pt min.). @ -Left pleural effusion no pneumothorax CT interpreted by me (1pt min.). @ -None done U/S interpreted by me (1pt. min.). @ -None done What testing was considered but not performed or refused? (CT, X-rays, U/S, labs)? Why? @ -None What meds were considered but not given or refused? Why? @ -None Did you discuss the management of the patient with other professionals (professionals i.e. DOC [place]pa, TITLE DEPARTMENT MANAGER, lab, RT, psych nurse, drug abuse social worker, leasing agent, teacher, commanding officer homicide squad, briefcase sewer)? Give summary @ -No Was smoking cessation discussed for >3mins.? @ -No Was critical care preformed (if so, how long)? @ -No Were there social determinants of health that impacted care today? How? (Homelessness, low income, unemployed, alcoholism, drug addiction, transportation, low edu. Level, literacy, decrease access to med. care, mcc, rehab)? @ -No Was there de-escalation of care discussed even if they declined (Discuss DNR or withdrawal of care, Hospice)? DNR status @ -No What co-morbidities impacted this encounter? (DM, HTN, Smoking, COPD, CAD, Cancer, CVA, ARF, Chemo, Hep., AIDS, mental health diagnosis, sleep apnea, morbid obesity)? @ -None Was patient admitted / discharged? Hospital course, mention meds given and route, prescriptions, significant lab abnormalities, going to OR and other pertinent info. @ -Admit Patient was seen and evaluated immediately upon arrival the emergency department, patient received a breathing treatment prior to arrival she is tachycardic but in no respiratory distress. Workup was initiated. Previous notes were reviewed patient was started on Cardizem in the ER. Cardizem was started here. The consistent with CHF patient's A. fib RVR improving with Cardizem. We'll plan to admit to Dr. Olson with cardiology on consult. At this time this will be the patient's fourth admission this month for A. fib RVR CHF and COPD exacerbation I do not feel the patient is safe at home and likely needs placement Undiagnosed new problem with uncertain prognosis? @ -No Drug Therapy requiring intensive monitoring for toxicity (Heparin, Nitro, In sulin, Cardizem)? @ Cardizem Were any procedures done? @ -No Diagnosis/symptom? @ -CHF, Afib RVR, COPD Acute, or Chronic, or Acute on Chronic? @ -Acue on Chronic Uncomplicated (without systemic symptoms) or Complicated (systemic symptoms)? @ -default Side effects of treatment? @ -No Exacerbation, Progression, or Severe Exacerbation? @ -No Poses a threat to life or bodily function? How? (Chest pain, [place], [place], pneumonia, PE, COPD, DKA, ARF, appy, cholecystitis, CVA, Diverticulitis, Homicidal, Suicidal, threat to staff... and all critical care pts) @ Yes - Lab Data Result diagrams: 09/30/23 06:02 09/30/23 06:02 Lab Results 09/30/23 09/30/23 09/30/23 Range/Units 06:02 06:02 06:02 WBC 7.8 (3.8-10.6) k/uL RBC 3.77 L (3.80-5.40) m/uL Hgb 11.0 L (11.4-16.0) gm/dL Hct 34.5 (34.0-46.0) % MCV 91.7 (80.0-100.0) fL MCH 29.3 (25.0-35.0) pg MCHC 31.9 (31.0-37.0) g/dL RDW 15.7 H (11.5-15.5) % Plt Count 222 (150-450) k/uL MPV 7.9 Neutrophils % 75 % Lymphocytes % 16 % Monocytes % 4 % Eosinophils % 3 % Basophils % 1 % Neutrophils # 5.9 (1.3-7.7) k/uL Lymphocytes # 1.2 (1.0-4.8) k/uL Monocytes # 0.3 (0-1.0) k/uL Eosinophils # 0.2 (0-0.7) k/uL Basophils # 0.1 (0-0.2) k/uL Hypochromasia Marked PT 11.5 (10.0-12.5) sec INR 1.1 (<1.2) APTT 24.3 (22.0-30.0) sec Sodium 141 (137-145) mmol/L Potassium 4.1 (3.5-5.1) mmol/L Chloride 106 (98-107) mmol/L Carbon Dioxide 23 (22-30) mmol/L Anion Gap 12 mmol/L BUN 15 (7-17) mg/dL Creatinine 0.64 (0.52-1.04) mg/dL Est GFR (CKD-EPI)AfAm >90 (>60 ml/min/1.73 sqM) Est GFR (CKD-EPI)NonAf 85 (>60 ml/min/1.73 sqM) Glucose 173 H (74-99) mg/dL Plasma Lactic Acid Wilfred (0.7-2.0) mmol/L Calcium 9.2 (8.4-10.2) mg/dL Total Bilirubin 1.4 H (0.2-1.3) mg/dL AST 23 (14-36) U/L ALT 16 (4-34) U/L Alkaline Phosphatase 135 H (38-126) U/L Troponin I (0.000-0.034) ng/mL NT-Pro-B Natriuret Pep 5740 pg/mL Total Protein 7.2 (6.3-8.2) g/dL Albumin 3.8 (3.5-5.0) g/dL 09/30/23 09/30/23 Range/Units 06:02 06:02 WBC (3.8-10.6) k/uL RBC (3.80-5.40) m/uL Hgb (11.4-16.0) gm/dL Hct (34.0-46.0) % MCV (80.0-100.0) fL MCH (25.0-35.0) pg MCHC (31.0-37.0) g/dL RDW (11.5-15.5) % Plt Count (150-450) k/uL MPV Neutrophils % % Lymphocytes % % Monocytes % % Eosinophils % % Basophils % % Neutrophils # (1.3-7.7) k/uL Lymphocytes # (1.0-4.8) k/uL Monocytes # (0-1.0) k/uL Eosinophils # (0-0.7) k/uL Basophils # (0-0.2) k/uL Hypochromasia PT (10.0-12.5) sec INR (<1.2) APTT (22.0-30.0) sec Sodium (137-145) mmol/L Potassium (3.5-5.1) mmol/L Chloride (98-107) mmol/L Carbon Dioxide (22-30) mmol/L Anion Gap mmol/L BUN (7-17) mg/dL Creatinine (0.52-1.04) mg/dL Est GFR (CKD-EPI)AfAm (>60 ml/min/1.73 sqM) Est GFR (CKD-EPI)NonAf (>60 ml/min/1.73 sqM) Glucose (74-99) mg/dL Plasma Lactic Acid Wilfred 1.8 (0.7-2.0) mmol/L Calcium (8.4-10.2) mg/dL Total Bilirubin (0.2-1.3) mg/dL AST (14-36) U/L ALT (4-34) U/L Alkaline Phosphatase (38-126) U/L Troponin I <0.012 (0.000-0.034) ng/mL NT-Pro-B Natriuret Pep pg/mL Total Protein (6.3-8.2) g/dL Albumin (3.5-5.0) g/dL - EKG Data -: EKG Interpreted by Me EKG Comments: EKG interpreted by me, EKG obtained at tachycardia from EKG obtained at 5:54 AM, rate is 126 rhythm is narcotics irregularly irregular tachycardia consistent with a patient's history of atrial fibrillation, PVCs noted PACs noted. No evidence of acute ischemia or infarction. Disposition Clinical Impression: Acute exacerbation of chronic obstructive airways disease, Atrial flutter with rapid ventricular response, Congestive heart failure, Medication noncompliance due to cognitive impairment Disposition: ADMITTED IP TO THIS HOSP Condition: Serious Referrals: Olya Olson MD [Primary Care Provider] - 1-2 days
[2023-09-30 06:21] LABS: ALT 16 U/L (4-34); AST 23 U/L (14-36); African American GFR (CKD) >90 (>60 ml/min/1.73 sqM); Albumin 3.8 g/dL (3.5-5.0); Alkaline Phosphatase 135 U/L (38-126); Anion Gap 12 mmol/L; Blood Urea Nitrogen 15 mg/dL (7-17); Calcium 9.2 mg/dL (8.4-10.2); Carbon Dioxide 23 mmol/L (22-30); Chloride 106 mmol/L (98-107); Glucose 173 mg/dL (74-99); Non-African American GFR(CKD) 85 (>60 ml/min/1.73 sqM); Potassium 4.1 mmol/L (3.5-5.1); Sodium 141 mmol/L (137-145); Total Bilirubin 1.4 mg/dL (0.2-1.3); Total Protein 7.2 g/dL (6.3-8.2)
[2023-09-30 06:25] LABS: INR 1.1 (<1.2); Partial Thromboplastin Time 24.3 sec (22.0-30.0); Prothrombin Time 11.5 sec (10.0-12.5)
[2023-09-30 06:30] LABS: NT-Pro-B-Type Natriuretic Pept 5740 pg/mL
[2023-09-30] MEDS: DILTIAZEM DRIP BOLUS FROM BAG 1 MG SOLN IV ONE (06:30)
[2023-09-30] MEDS: DILTIAZEM 125 MG in SODIUM CHLORIDE 0.9% 100 ML IV SCH (06:38)
--- NOTE | 2023-09-30 07:22 | XR ---
EXAMINATION TYPE: XR chest 1V portable DATE OF EXAM: 09/30/2023 HISTORY: Shortness of breath. COMPARISON: 09/18/2023 TECHNIQUE: Single view of the chest is submitted. FINDINGS: Demonstrated are scattered senescent parenchymal change. Cardiomegaly with pulmonary venous congestion and interstitial edema. Small effusions. Hilar and medi astinal structures are within normal limits. Degenerative changes are seen of the dorsal spine. IMPRESSION: 1. Findings suggest congestive failure. Infiltrates of other etiology not excluded. Correlate clinic ally.
[2023-09-30] MEDS: LEVOTHYROXINE 75 MCG TAB PO SCH (08:57)
[2023-09-30] MEDS: ASCORBIC ACID 500 MG TAB PO SCH (08:57)
[2023-09-30] MEDS: CHOLECALCIFEROL 125 MCG (5000 IU) TABLET PO SCH (08:57)
[2023-09-30] MEDS: METOPROLOL TARTRATE 50 MG TAB PO SCH (08:57)
[2023-09-30] MEDS: ASPIRIN 81 MG PO SCH (08:57)
[2023-09-30] MEDS: FUROSEMIDE 10 MG/ML 4 ML VIAL IV SCH (08:57)
[2023-09-30] MEDS: ENOXAPARIN 40 MG/0.4 ML SYRINGE SQ SCH (09:48)
[2023-09-30] MEDS: DAPAGLIFLOZIN PROPANEDIOL 10 MG TABLET PO SCH (09:48)
[2023-09-30] MEDS: PANTOPRAZOLE 40 MG TABLET PO SCH (09:48)
[2023-09-30] MEDS: ALBUTEROL NEBULIZED 2.5 MG/3 ML INHALATION PRN (10:51)
--- NOTE | 2023-09-30 12:19 | P.CRDCN ---
History of Present Illness Consult date: 09/30/23 History of present illness: History of present illness: This is an 78-year-old female patient of Dr. Flores with past medical history of persistent atrial fibrillation/flutter recently taken off Coumadin, known EF of 37%, history of mitral valve repair, nonischemic cardiomyopathy, pulmonary hypertension, hypothyroidism, chronic hypoxic respiratory failure on home O2. Patient was recently hospitalized last week for A-fib atrial flutter with RVR. Dr. Flores discussed anticoagulation with the patient at that time and Coumadin was discontinued and patient was discharged home on September 23. We have been asked to evaluate the patient for heart failure and A-fib with RVR. Patient presented to the emergency center due to shortness of breath wheezing hypoxia and tachycardia. Patient expresses that she cannot remember to take her medications but her is now at bedside and states that she has been taking her medications as directed. Her initial heart rate was in the 130s. Patient has been started on a Cardizem drip and home medications have been resum ed. Patient had a nebulizer treatment this morning with improvement of her shortness of breath. Patient is seen today in the emergency center waiting for a bed on the cardiac stepdown unit. EKG atrial fibrillation 126 bpm Chest x-ray: Findings suggest congestive heart failure. Infiltrates of other etiology not excluded. WBC 7.8, hemoglobin 11, platelet count 222. INR 1.1. Electrolytes and renal function normal. Blood sugar 173. Troponin negative x 1. proBNP 5740. Home cardiac medications: Aspirin 81 mg daily, Bumex 1 mg daily, Farxiga 10 mg daily, Lasix 40 mg daily, Lopressor 50 mg twice daily, patient also on levothyroxine 150 mcg daily. Echocardiogram in June 2023 revealed ejection fraction 30-35%, severe pulmonary hypertension, bioprosthetic aortic valve, and mitral valve repair with mild MR Cardiac catheterization history: October 2017 revealing normal coronary arterie s Cardioversion 07/05/2022 for atrial flutter with restorationism of sinus rhythm Aortic valve replacement 10/13/2017 with Magna Ease bioprosthetic aortic valve, mitral valve repair with [employer]bo[employer] annular flex band, clip ligation of the left atrial appendage. MATTHEW performed 01/30/2018 revealed sutured left atrial appendage, bioprosthetic aortic valve with normal functioning, mitral annuloplasty with mitral valve repair and mild mitral regurgitation. Moderate tricuspid regurgitation. No evidence of shunting across the intra-atrial septum. Review Of Systems: At the time of my exam: CONSTITUTIONAL: Denies fever or chills. CARDIOVASCULAR: Denies chest pain, + shortness of breath, no orthopnea, no PND or reports palpitations. RESPIRATORY: Denies cough. GASTROINTESTINAL: Denies abdominal pain, diarrhea, constipation, nausea or vomiting. MUSCULOSKELETAL: Denies myalgias. NEUROLOGIC: Denies numbness, tingling or weakness. ENDOCRINE: Denies fatigue, weight change, polydipsia or polyurina. GENITOURINARY: Denies burning, hematuria or urgency with micturation. HEMATOLOGIC: Denies history of anemia or bleeding. Physical examination: Gen: This is an 78-year-old female resting in appears to be in no acute distress. VS: reviewed HEENT: Head is atraumatic, normocephalic. Pupils equal, round. Sclerae is anicteric. NECK: Supple. No JVD. LUNGS: Diminished with scattered wheeze. No intercostal retractions. HEART: Irregular rate and rhythm. 2/6 systolic murmur. ABDOMEN: Soft No tenderness. EXTREMITIES: No pedal edema. No calf tenderness. NEUROLOGICAL: Patient is awake, alert. Assessment: Persistent atrial fibrillation presenting with with RVR Mitral valve repair Nonischemic cardiomyopathy Pulmonary hypertension Hypothyroidism Plan: Resume patient's home cardiac medications Discontinue Cardizem drip No need to repeat echocardiogram Further recommendations as patient progresses. Thank you kindly for this consultation. Nurse practitioner note has been reviewed, I agree with documented findings and plan of care. Patient was seen and examined. Past Medical History Past Medical History: Atrial Fibrillation, Heart Failure, COPD, GERD/Reflux, Osteoarthritis (OA), Renal Disease, Rheumatoid Arthritis (RA), Supraventricular Tachycardia (SVT), Thyroid Disorder Additional Past Medical History / Comment(s): Valvular heart disease with previous aortic valve replacement and a mitral valve repair, congestion heart failure, Paroxysmal Afib, history of SVT, history of nonsustained VT, SOB with exertion, home O2 at 2L/NC usually prn but lately ATC, arthritis, RA several joints, current L elbow pain/swelling-had "injection", nephrolithiasis, hypothyroid, diverticular dx, UTI, iron deficiency anemia. 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 History of Any Multi-Drug Resistant Organisms: None Reported Past Surgical History: Coronary Bypass/CABG, Heart Catheterization, Hysterectomy, Joint Replacement, Orthopedic Surgery Additional Past Surgical History / Comment(s): Geoff total knees arthroplasty,lt hip arthroplasty, goiter removed 1962, partial thyroidectomy, cataracts removed with lens implants, REVERSE TOTAL RIGHT SHOULDER; Rotator cuff R shoulder, cervical fusion/injections, colonoscopy 2017(next after 5yr), MATTHEW, valve surge ry at [facility] 10/13/17 Prosthetic Aortic valve and mitral valve repair. Total abdominal hysterectomy in the 1980s. Past Anesthesia/Blood Transfusion Reactions: Postoperative Nausea & Vomiting (PONV) Past Psychological History: No Psychological Hx Reported Smoking Status: Former smoker Past Alcohol Use History: None Reported Past Drug Use History: None Reported - Past Family History Father Family Medical History: Cancer, Myocardial Infarction ([place]) Additional Family Medical History / Comment(s): in his 80's of a mi. Colon cancer. Mother Family Medical History: No Reported History Additional Family Medical History / Comment(s): age 88 . hx smoking. Daughter(s) Family Medical History: Cancer Additional Family Medical History / Comment(s): from vulvar cancer. Medications and Allergies Home Medications Medication Instructions Recorded Confirmed Type Albuterol Sulfate [Proair Hfa] 2 puff INHALATION RT-Q6H PRN 07/28/19 09/30/23 History Ascorbic Acid [Vitamin C] 500 mg PO DAILY 05/08/21 09/30/23 History Cholecalciferol (Vitamin D3) 125 mcg PO DAILY 06/06/22 09/30/23 History [Vitamin D3 (125 MCG = 5,000 IU)] Ipratropium-Albuterol Nebulize 3 ml INHALATION RT-Q6H PRN 06/06/22 09/30/23 History [Duoneb 0.5 mg-3 mg/3 ml Soln] Levothyroxine Sodium [Synthroid] 150 mcg PO AC-BRKFST 30 Days #30 08/27/23 09/30/23 Rx tablet Metoprolol Tartrate [Lopressor] 50 mg PO BID 30 Days #60 tab 08/27/23 09/30/23 Rx Furosemide [Lasix] 40 mg PO DAILY 09/04/23 09/30/23 History HYDROcodone/APAP 10-325MG [[place] 1 tab PO Q8H PRN 3 Days #12 tab 09/14/23 09/30/23 Rx 10-325] Aspirin 81 mg PO DAILY tab 09/22/23 09/30/23 Rx Dapagliflozin Propanediol [Farxiga] 10 mg PO DAILY 30 Days #30 tab 09/22/23 09/30/23 Rx Bumetanide [Bumex] 1 mg PO DAILY 09/30/23 09/30/23 History Allergies Allergy/AdvReac Type Severity Reaction Status Date / Time lisinopril AdvReac Cough Verified 09/30/23 08:02 Physical Exam Vitals: Vital Signs Temp Pulse Resp BP Pulse Ox 09/30/23 07:47 110 H 20 112/83 98 09/30/23 05:32 22 09/30/23 05:24 97.3 F L 134 H 22 142/98 97 Intake and Output 09/29/23 09/30/23 09/30/23 22:59 06:59 14:59 Other: Weight 46.72 kg Results 09/30/23 06:02 09/30/23 06:02 Cardiac Enzymes 09/30/23 09/30/23 Range/Units 06:02 06:02 AST 23 (14-36) U/L Troponin I <0.012 (0.000-0.034) ng/mL Coagulation 09/30/23 Range/Units 06:02 PT 11.5 (10.0-12.5) sec APTT 24.3 (22.0-30.0) sec CBC 09/30/23 Range/Units 06:02 WBC 7.8 (3.8-10.6) k/uL RBC 3.77 L (3.80-5.40) m/uL Hgb 11.0 L (11.4-16.0) gm/dL Hct 34.5 (34.0-46.0) % Plt Count 222 (150-450) k/uL Comprehensive Metabolic Panel 09/30/23 Range/Units 06:02 Sodium 141 (137-145) mmol/L Potassium 4.1 (3.5-5.1) mmol/L Chloride 106 (98-107) mmol/L Carbon Dioxide 23 (22-30) mmol/L BUN 15 (7-17) mg/dL Creatinine 0.64 (0.52-1.04) mg/dL Glucose 173 H (74-99) mg/dL Calcium 9.2 (8.4-10.2) mg/dL AST 23 (14-36) U/L ALT 16 (4-34) U/L Alkaline Phosphatase 135 H (38-126) U/L Total Protein 7.2 (6.3-8.2) g/dL Albumin 3.8 (3.5-5.0) g/dL Current Medications Generic Name Dose Route Start Last Admin Trade Name Freq PRN Reason Stop Dose Admin Hydrocodone Bitart/Acetaminophen 1 each 09/30/23 08:07 Hydrocodone/Apap 10-325mg 1 Each Tab PO Q8H PRN Pain Albuterol Sulfate 2.5 mg 09/30/23 08:07 Albuterol Nebulized 2.5 Mg/3 Ml INHALATION RT-Q6H PRN Shortness Of Breath Albuterol/Ipratropium 3 ml 09/30/23 08:07 Ipratropium-Albuterol 3 Ml Neb INHALATION RT-Q6H PRN Shortness Of Breath Ascorbic Acid 500 mg 09/30/23 09:00 Ascorbic Acid 500 Mg Tab PO DAILY CARLOS Aspirin 81 mg 09/30/23 09:00 Aspirin 81 Mg PO DAILY CARLOS Cholecalciferol 125 mcg 09/30/23 09:00 Cholecalciferol 125 Mcg (5000 Iu) Tablet PO DAILY CARLOS Dapagliflozin 10 mg 09/30/23 09:00 Dapagliflozin Propanediol 10 Mg Tablet PO DAILY CARLOS Furosemide 40 mg 09/30/23 08:00 Furosemide 10 Mg/Ml 4 Ml Vial IV Q8HR CARLOS Diltiazem HCl 125 mg/ Sodium 125 mls @ 0 mls/hr 09/30/23 06:15 09/30/23 06:38 Chloride IV 5 mls/hr .Q0M CARLOS 5 mls/hr Administration Protocol Per Protocol Levothyroxine Sodium 150 mcg 09/30/23 08:30 Levothyroxine [address] [place] 0630 CARLOS Intake and Output 09/29/23 09/30/23 09/30/23 22:59 06:59 14:59 Other: Weight 46.72 kg 09/30/23 06:02 09/30/23 06:02
--- NOTE | 2023-09-30 15:44 | P.HPIM ---
History of Present Illness H&P Date: 09/30/23 This is an 78 -year-old female patient who presented with concerns of increased shortness of breath. Concerns of medical compliance. Patient appears to be a poor historian at this time drifting off to sleep quite quickly. Patient has had multiple admissions in the past few months. Patient has past medical history of CHF, paroxysmal atrial fibrillation, valvular heart disease with a ordered valve replacement and mitral valve repair, pulmonary hypertension, COPD, hypothyroidism, rheumatoid arthritis and chronic disease. EKG completed showing ectopic atrial tachycardia with short [place] interval with occasional ectopic premature complexes with a rate of 126. Chest x-ray completed showing findings suggestive of congestive heart failure. Infiltrates of other etiology not excluded. Troponin negative. BPH elevated 5740. Creatinine 0.64 and 15. White blood cell 7.8. Vital signs 97.3, heart rate 110, respiratory rate 20, blood pressure 112/83 and a pulse ox of 98% on 2 L. At this time patient will be started on IV Cardizem and IV Lasix cardiology service is consulted. Patient is resting currently in bed patient is sleepy but does wake up to questions but quickly falls back to sleep. Patient denies chest pain or shortness of breath. Patient denies nausea vomiting or diarrhea. Patient denies any urinary burning or frequency Review of Systems Please refer to HPI otherwise unremarkable Past Medical History Past Medical History: Atrial Fibrillation, Heart Failure, COPD, GERD/Reflux, Osteoarthritis (OA), Renal Disease, Rheumatoid Arthritis (RA), Supraventricular Tachycardia (SVT), Thyroid Disorder Additional Past Medical History / Comment(s): Valvular heart disease with previous aortic valve replacement and a mitral valve repair, congestion heart failure, Paroxysmal Afib, history of SVT, history of nonsustained VT, SOB with exertion, home O2 at 2L/NC usually prn but lately ATC, arthritis, RA several joints, current L elbow pain/swelling-had "injection", nephrolithiasis, hyp othyroid, diverticular dx, UTI, iron deficiency anemia. PAST DIRECTOR FAMILY HISTORY: She has no history of STDs. History of Any Multi-Drug Resistant Organisms: None Reported Past Surgical History: Coronary Bypass/CABG, Heart Catheterization, Hysterectomy, Joint Replacement, Orthopedic Surgery Additional Past Surgical History / Comment(s): Geoff total knees arthroplasty,lt hip arthroplasty, goiter removed 1962, partial thyroidectomy, cataracts removed with lens implants, REVERSE TOTAL RIGHT SHOULDER; Rotator cuff R shoulder, cervical fusion/injections, colonoscopy 2017(next after 5yr), MATTHEW, valve surgery at [facility] 10/13/17 Prosthetic Aortic valve and mitral valve repair. Total abdominal hysterectomy in the 1980s. Past Anesthesia/Blood Transfusion Reactions: Postoperative Nausea & Vomiting (PONV) Past Psychological History: No Psychological Hx Reported Smoking Status: Former smoker Past Alcohol Use History: None Reported Past Drug Use History: None Reported - Past Family History Father Family Medical History: Cancer, Myocardial Infarction (NM) Additional Family Medical History / Comment(s): in his 80's of a mi. Colon cancer. Mother Family Medical History: No Reported History Additional Family Medical History / Comment(s): age 88 . hx smoking. Daughter(s) Family Medical History: Cancer Additional Family Medical History / Comment(s): from vulvar cancer. Medications and Allergies Home Medications Medication Instructions Recorded Confirmed Type Albuterol Sulfate [Proair Hfa] 2 puff INHALATION RT-Q6H PRN 07/28/19 09/30/23 History Ascorbic Acid [Vitamin C] 500 mg PO DAILY 05/08/21 09/30/23 History Cholecalciferol (Vitamin D3) 125 mcg PO DAILY 06/06/22 09/30/23 History [Vitamin D3 (125 MCG = 5,000 IU)] Ipratropium-Albuterol Nebulize 3 ml INHALATION RT-Q6H PRN 06/06/22 09/30/23 History [Duoneb 0.5 mg-3 mg/3 ml Soln] Levothyroxine Sodium [Synthroid] 150 mcg PO AC-BRKFST 30 Days #30 08/27/23 09/30/23 Rx tablet Metoprolol Tartrate [Lopressor] 50 mg PO BID 30 Days #60 tab 08/27/23 09/30/23 Rx Furosemide [Lasix] 40 mg PO DAILY 09/04/23 09/30/23 History HYDROcodone/APAP 10-325MG [[place] 1 tab PO Q8H PRN 3 Days #12 tab 09/14/23 09/30/23 Rx 10-325] Aspirin 81 mg PO DAILY tab 09/22/23 09/30/23 Rx Dapagliflozin Propanediol [Farxiga] 10 mg PO DAILY 30 Days #30 tab 09/22/23 09/30/23 Rx Bumetanide [Bumex] 1 mg PO DAILY 09/30/23 09/30/23 History Allergies Allergy/AdvReac Type Severity Reaction Status Date / Time lisinopril AdvReac Cough Verified 09/30/23 08:02 Physical Exam Vitals: Vital Signs Temp Pulse Resp BP Pulse Ox 09/30/23 07:47 110 H 20 112/83 98 09/30/23 05:32 22 09/30/23 05:24 97.3 F L 134 H 22 142/98 97 Intake and Output 09/29/23 09/30/23 09/30/23 22:59 06:59 14:59 Other: Weight 46.72 kg Head normocephalic Neck supple Lungs diminished bilaterally Heart regular rate and rhythm S1-S2, no rub or gallop Abdomen is soft nontender nondistended positive bowel sounds no hepatosplenomegaly Extremities no edema Neuro alert and orientated to 3 Results CBC & Chem 7: 09/30/23 06:02 09/30/23 06:02 Labs: Abnormal Lab Results - Last 24 Hours (Table) 09/30/23 09/30/23 Range/Units 06:02 06:02 RBC 3.77 L (3.80-5.40) m/uL Hgb 11.0 L (11.4-16.0) gm/dL RDW 15.7 H (11.5-15.5) % Glucose 173 H (74-99) mg/dL Total Bilirubin 1.4 H (0.2-1.3) mg/dL Alkaline Phosphatase 135 H (38-126) U/L Assessment and Plan Assessment: 1. Shortness of breath secondary to acute exacerbation of CHF 2. Questionable medical compliance 3. History of chronic systolic congestive heart failure 4. History of paroxysmal atrial fibrillation. Coumadin was previously DC'd per cardiology during previous admission 5. 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 History of pulmonary hypertension 7. History of COPD 8. History of hypothyroidism 9. History of rheumatoid arthritis 10. History of chronic kidney disease DVT prophylaxis Lovenox. GI prophylaxis Protonix Patient started IV Cardizem and IV Lasix Cardiology service consulted We'll consult social work services for discharge planning Time with Patient: Greater than 30 (Greater than 60% of the total time spent in counseling and coordination of care)
[2023-09-30] MEDS: IPRATROPIUM-ALBUTEROL 3 ML NEB INHALATION PRN (21:02)
[2023-10-01] MEDS: DILTIAZEM 125 MG in SODIUM CHLORIDE 0.9% 100 ML IV SCH (02:41)
[2023-10-01 10:06] LABS: Basophils % (A) 1 %; Eosinophils # (A) 0.3 k/uL (0-0.7); Eosinophils % (A) 4 %; HCT 31.4 % (34.0-46.0); HGB 9.8 gm/dL (11.4-16.0); Hypochromasia Marked; Lymphocytes # (A) 1.6 k/uL (1.0-4.8); Lymphocytes % (A) 28 %; MCH 28.8 pg (25.0-35.0); MCHC 31.3 g/dL (31.0-37.0); MCV 91.9 fL (80.0-100.0); Mean Platelet Volume 8.5; Monocytes # (A) 0.5 k/uL (0-1.0); Monocytes % (A) 8 %; Neutrophils # (A) 3.3 k/uL (1.3-7.7); Neutrophils % (A) 56 %; Platelet Count 208 k/uL (150-450); RBC 3.41 m/uL (3.80-5.40); RDW 15.7 % (11.5-15.5); WBC 5.9 k/uL (3.8-10.6)
[2023-10-01 10:13] LABS: ALT 17 U/L (4-34); AST 37 U/L (14-36); Albumin 3.5 g/dL (3.5-5.0); Blood Urea Nitrogen 20 mg/dL (7-17); Calcium 8.7 mg/dL (8.4-10.2); Carbon Dioxide 28 mmol/L (22-30); Chloride 103 mmol/L (98-107); Total Bilirubin 1.2 mg/dL (0.2-1.3)
[2023-10-01 10:35] LABS: African American GFR (CKD) 71 (>60 ml/min/1.73 sqM); Alkaline Phosphatase 117 U/L (38-126); Anion Gap 7 mmol/L; Glucose 89 mg/dL (74-99); Non-African American GFR(CKD) 61 (>60 ml/min/1.73 sqM); Sodium 138 mmol/L (137-145); Total Protein 6.9 g/dL (6.3-8.2)
[2023-10-01 10:36] LABS: Potassium 4.2 mmol/L (3.5-5.1)
--- NOTE | 2023-10-01 12:43 | P.PN ---
Subjective Progress Note Date: 10/01/23 History of present illness: History of present illness: This is an 78-year-old female patient of Dr. Flores with past medical history of persistent atrial fibrillation/flutter recently taken off Coumadin, known EF of 37%, history of mitral valve repair, nonischemic cardiomyopathy, pulmonary hypertension, hypothyroidism, chronic hypoxic respiratory failure on home O2. Patient was recently hospitalized last week for A-fib atrial flutter with RVR. Dr. Flores discussed anticoagulation with the patient at that time and Coumadin was discontinued and patient was discharged home on September 23. We have been asked to evaluate the patient for heart failure and A-fib with RVR. Patient presented to the emergency center due to shortness of breath wheezing hypoxia and tachycardia. Patient expresses that she cannot remember to take her medications but her is now at bedside and states that she has been taking her medications as directed. Her initial heart rate was in the 130s. Patient has been started on a Cardizem drip and home medications have been resumed. Patient had a nebulizer treatment this morning with improvement of her shortness of breath. Patient is seen today in the emergency center waiting for a bed on the cardiac stepdown unit. EKG atrial fibrillation 126 bpm Chest x-ray: Findings suggest congestive heart failure. Infiltrates of other etiology not excluded. WBC 7.8, hemoglobin 11, platelet count 222. INR 1.1. Electrolytes and renal function normal. Blood sugar 173. Troponin negative x 1. proBNP 5740. Home cardiac medications: Aspirin 81 mg daily, Bumex 1 mg daily, Farxiga 10 mg daily, Lasix 40 mg daily, Lopressor 50 mg twice daily, patient also on levothyroxine 150 mcg daily. Echocardiogram in June 2023 revealed ejection fraction 30-35%, severe pulmonary hypertension, bioprosthetic aortic valve, and mitral valve repair with mild MR Cardiac catheterization history: October 2017 revealing normal coronary arteries Cardioversion 07/05/2022 for atrial flutter with adventist of sinus rhythm Aortic valve replacement 10/13/2017 with [employer] bioprosthetic aortic valve, mitral valve repair with [employer] annular flex band, clip ligation of the left atrial appendage. MATTHEW performed 01/30/2018 revealed sutured left atrial appendage, bioprosthetic aortic valve with normal functioning, mitral annuloplasty with mitral valve repair and mild mitral regurgitation. Moderate tricuspid regurgitation. No evidence of shunting across the intra-atrial septum. 10/01 Patient is seen again today in the emergency center waiting for a bed on the cardiac stepdown unit. She states she is feeling a little bit better. Patient has been maintained on IV Lasix 40 mg every [address] It appears that Dr. Styles was contacted during the night and Cardizem drip was resumed. Cardizem drip is currently paused. Reviewed telemetry and no significant spikes in heart rate could be identified. Heart rate is in the 70s, blood pressure 82/57. Repeat blood work reveals hemoglobin of 9.8, sodium 130, potassium 4.2, BUN 20 creatinine 0.89. Physical examination: Gen: This is an 78-year-old female resting in appears to be in no acute dist ress. VS: reviewed HEENT: Head is atraumatic, normocephalic. Pupils equal, round. Sclerae is anicteric. NECK: Supple. No JVD. LUNGS: Diminished with scattered wheeze. No intercostal retractions. HEART: Irregular rate and rhythm. 2/6 systolic murmur. ABDOMEN: Soft No tenderness. EXTREMITIES: No pedal edema. No calf tenderness. NEUROLOGICAL: Patient is awake, alert. Assessment: Persistent atrial fibrillation presenting with with RVR Mitral valve repair Nonischemic cardiomyopathy Pulmonary hypertension Hypothyroidism Plan: Resume patient's home cardiac medications Discontinue Cardizem drip Continue IV Lasix 40 mg every 8 hours Monitor JASVIR, daily weights, electrolytes and renal function No need to repeat echocardiogram Further recommendations as patient progresses. Nurse practitioner note has been reviewed, I agree with documented findings and plan of care. Patient was seen and examined. Objective - Vital Signs Vital signs: Vital Signs Temp 97.3 F L 09/30/23 05:24 Pulse 67 10/01/23 08:44 Resp 16 10/01/23 06:05 BP 97/63 10/01/23 07:34 Pulse Ox 100 10/01/23 08:31 FiO2 Intake & Output 09/30/23 10/01/23 10/01/23 18:59 06:59 18:59 Intake Total 13.333 10.25 Output Total 800 250 Balance -786.667 10.25 -250 Intake: Intake, IV Titration 13.333 10.25 Amount Diltiazem 125 mg In 10.25 Sodium Chloride 0.9% 100 ml @ 5 MG/HR 5 mls/hr IV .Q24H [facility] Rx#:[id number] Diltiazem 125 mg In 13.333 Sodium Chloride 0.9% 100 ml @ Per Protocol IV .Q0M [facility] Rx#:[id number] Output: Urine 800 250 Uretheral ([place]) 250 - Labs CBC & Chem 7: 10/01/23 09:13 10/01/23 09:13
[2023-10-02 10:59] LABS: Basophils % (A) 1 %; Eosinophils # (A) 0.4 k/uL (0-0.7); Eosinophils % (A) 6 %; HCT 32.3 % (34.0-46.0); Hypochromasia Marked; Lymphocytes # (A) 1.3 k/uL (1.0-4.8); Lymphocytes % (A) 19 %; MCH 28.5 pg (25.0-35.0); MCHC 30.9 g/dL (31.0-37.0); MCV 92.1 fL (80.0-100.0); Mean Platelet Volume 9.1; Monocytes # (A) 0.5 k/uL (0-1.0); Monocytes % (A) 7 %; Neutrophils # (A) 4.6 k/uL (1.3-7.7); Neutrophils % (A) 64 %; Platelet Count 250 k/uL (150-450); RBC 3.51 m/uL (3.80-5.40); RDW 15.6 % (11.5-15.5); WBC 7.2 k/uL (3.8-10.6)
[2023-10-02 11:07] LABS: ALT 16 U/L (4-34); AST 23 U/L (14-36); African American GFR (CKD) 68 (>60 ml/min/1.73 sqM); Albumin 3.4 g/dL (3.5-5.0); Alkaline Phosphatase 132 U/L (38-126); Anion Gap 8 mmol/L; Blood Urea Nitrogen 23 mg/dL (7-17); Calcium 8.6 mg/dL (8.4-10.2); Carbon Dioxide 31 mmol/L (22-30); Chloride 101 mmol/L (98-107); Glucose 92 mg/dL (74-99); Non-African American GFR(CKD) 59 (>60 ml/min/1.73 sqM); Potassium 3.8 mmol/L (3.5-5.1); Sodium 140 mmol/L (137-145); Total Bilirubin 0.9 mg/dL (0.2-1.3); Total Protein 6.7 g/dL (6.3-8.2)
[2023-10-02 11:53] VITALS: BMI 20.4
--- NOTE | 2023-10-02 15:06 | P.PN ---
Subjective Progress Note Date: 10/01/23 This is an 78 -year-old female patient who presented with concerns of increased shortness of breath. Concerns of medical compliance. Patient appears to be a poor historian at this time drifting off to sleep quite quickly. Patient has had multiple admissions in the past few months. Patient has past medical history of CHF, paroxysmal atrial fibrillation, valvular heart disease with a ordered valve replacement and mitral valve repair, pulmonary hypertension, COPD, hypothyroidism, rheumatoid arthritis and chronic disease. EKG completed showing ectopic atrial tachycardia with short [place] interval with occasional ectopic premature complexes with a rate of 126. Chest x-ray completed showing findings suggestive of congestive heart failure. Infiltrates of other etiology not excluded. Troponin negative. BPH elevated 5740. Creatinine 0.64 and 15. White blood cell 7.8. Vital signs 97.3, heart rate 110, respiratory rate 20, blood pressure 112/83 and a pulse ox of 98% on 2 L. At this time patient will be started on IV Cardizem and IV Lasix cardiology service is consulted. Patient is resting currently in bed patient is sleepy but does wake up to questions but quickly falls back to sleep. Patient denies chest pain or shortness of breath. Patient denies nausea vomiting or diarrhea. Patient denies any urinary burning or frequency on 10/01/2023 patient was seen and examined on the telemetry floor, she is alert and oriented 3 in no apparent distress, she is still complaining of generalized weakness and shortness of breath, otherwise she denies any complaints there is no fever or chills no headache or dizziness no chest pain no nausea or vomiting no abdominal pain no diarrhea and no urinary symptoms Objective - Vital Signs Vital signs: Vital Signs Temp 97.3 F L 09/30/23 05:24 Pulse 75 10/01/23 11:00 Resp 18 10/01/23 11:00 BP 106/74 10/01/23 11:36 Pulse Ox 99 10/01/23 11:36 FiO2 Intake & Output 09/30/23 10/01/23 10/01/23 18:59 06:59 18:59 Intake Total 13.333 10.25 Output Total 800 250 Balance -786.667 10.25 -250 Intake: Intake, IV Titration 13.333 10.25 Amount Diltiazem 125 mg In 10.25 Sodium Chloride 0.9% 100 ml @ 5 MG/HR 5 mls/hr IV .Q24H [facility] Rx#:[id number] Diltiazem 125 mg In 13.333 Sodium Chloride 0.9% 100 ml @ Per Protocol IV .Q0M [facility] Rx#:[id number] Output: Urine 800 250 Uretheral ([place]) 250 - Exam In general patient is alert and oriented x 3 in no distress HEENT head normocephalic and atraumatic Neck is supple no JVD no goiter no lymphadenopathy no carotid bruit Chest examination reveals a few scattered crackles no wheezing Cardiac exam reveals regular heart sounds S1 and S2 no gallops no murmurs Abdomen is soft nontender no organomegaly with normal bowel sounds Extremity exam reveals no edema no cyanosis or clubbing Neurological examination reveals no gross focal deficits - Labs CBC & Chem 7: 10/02/23 10:15 10/02/23 10:15 Labs: Abnormal Lab Results - Last 24 Hours (Table) 10/01/23 10/01/23 Range/Units 09:13 09:13 RBC 3.41 L (3.80-5.40) m/uL Hgb 9.8 L (11.4-16.0) gm/dL Hct 31.4 L (34.0-46.0) % RDW 15.7 H (11.5-15.5) % BUN 20 H (7-17) mg/dL AST 37 H (14-36) U/L Assessment and Plan Assessment: 1. Shortness of breath secondary to acute exacerbation of CHF 2. Questionable medical compliance 3. History of chronic systolic congestive heart failure 4. History of paroxysmal atrial fibrillation. Coumadin was previously DC'd per cardiology during previous admission 5. 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 History of pulmonary hypertension 7. History of COPD 8. History of hypothyroidism 9. History of rheumatoid arthritis 10. History of chronic kidney disease DVT prophylaxis Lovenox. GI prophylaxis Protonix Patient started IV Cardizem and IV Lasix Cardiology service consulted We'll consult social work services for discharge planning
--- NOTE | 2023-10-02 16:55 | P.PN ---
Subjective Progress Note Date: 10/02/23 This is an 78 -year-old female patient who presented with concerns of increased shortness of breath. Concerns of medical compliance. Patient appears to be a poor historian at this time drifting off to sleep quite quickly. Patient has had multiple admissions in the past few months. Patient has past medical history of CHF, paroxysmal atrial fibrillation, valvular heart disease with a ordered valve replacement and mitral valve repair, pulmonary hypertension, COPD, hypothyroidism, rheumatoid arthritis and chronic disease. EKG completed showing ectopic atrial tachycardia with short [place] interval with occasional ectopic premature complexes with a rate of 126. Chest x-ray completed showing findings suggestive of congestive heart failure. Infiltrates of other etiology not excluded. Troponin negative. BPH elevated 5740. Creatinine 0.64 and 15. White blood cell 7.8. Vital signs 97.3, heart rate 110, respiratory rate 20, blood pressure 112/83 and a pulse ox of 98% on 2 L. At this time patient will be started on IV Cardizem and IV Lasix cardiology service is consulted. Patient is resting currently in bed patient is sleepy but does wake up to questions but quickly falls back to sleep. Patient denies chest pain or shortness of breath. Patient denies nausea vomiting or diarrhea. Patient denies any urinary burning or frequency on 10/01/2023 patient was seen and examined on the telemetry floor, she is alert and oriented 3 in no apparent distress, she is still complaining of generalized weakness and shortness of breath, otherwise she denies any complaints there is no fever or chills no headache or dizziness no chest pain no nausea or vomiting no abdominal pain no diarrhea and no urinary symptoms. On 10/02/2023 patient was seen and examined on the medical floor she is alert and oriented 3 in no distress she is still complaining of weakness and shortness of breath otherwise she denies any complaints there is no fever or chills no headache or dizziness no chest pain, no cough no nausea or vomiting no abdominal pain no diarrhea and no urinary symptoms, patient is also complaining of bilateral eye burning and erythema. Blood pressure is on the low side, at this time will discontinue IV Lasix, will start Bumex 2 mg daily in a.m. starting tomorrow. Possible discharge to home in the next 1-2 days Objective - Vital Signs Vital signs: Vital Signs Temp 97.8 F 10/02/23 11:25 Pulse 64 10/02/23 11:55 Resp 16 10/02/23 11:25 BP 100/54 10/02/23 11:46 Pulse Ox 96 10/02/23 11:25 FiO2 Intake & Output 10/01/23 10/02/23 10/02/23 18:59 06:59 18:59 Intake Total 225 210 Output Total 2300 950 Balance -2075 -950 210 Weight 46.72 kg 47.5 kg 47.5 kg Intake: IV 10 Invasive Line 2 10 Oral 225 200 Output: Urine 2300 950 Uretheral ([place]) 1700 Other: Voiding Method Indwelling Catheter Indwelling Catheter # Bowel Movements 1 - Exam In general patient is alert and oriented x 3 in no distress HEENT head normocephalic and atraumatic Neck is supple no JVD no goiter no lymphadenopathy no carotid bruit Chest examination reveals a few scattered crackles no wheezing Cardiac exam reveals regular heart sounds S1 and S2 no gallops no murmurs Abdomen is soft nontender no organomegaly with normal bowel sounds Extremity exam reveals no edema no cyanosis or clubbing Neurological examination reveals no gross focal deficits - Labs CBC & Chem 7: 10/02/23 10:15 10/02/23 10:15 Labs: Abnormal Lab Results - Last 24 Hours (Table) 10/02/23 10/02/23 Range/Units 10:15 10:15 RBC 3.51 L (3.80-5.40) m/uL Hgb 10.0 L (11.4-16.0) gm/dL Hct 32.3 L (34.0-46.0) % MCHC 30.9 L (31.0-37.0) g/dL RDW 15.6 H (11.5-15.5) % Carbon Dioxide 31 H (22-30) mmol/L BUN 23 H (7-17) mg/dL Alkaline Phosphatase 132 H (38-126) U/L Albumin 3.4 L (3.5-5.0) g/dL Microbiology - Last 24 Hours (Table) 09/30/23 06:00 Blood Culture - Preliminary Blood Assessment and Plan Assessment: 1. Shortness of breath secondary to acute exacerbation of CHF 2. Questionable medical compliance 3. History of chronic systolic congestive heart failure 4. History of paroxysmal atrial fibrillation. Coumadin was previously DC'd per cardiology during previous admission 5. 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 History of pulmonary hypertension 7. History of COPD 8. History of hypothyroidism 9. History of rheumatoid arthritis 10. History of chronic kidney disease DVT prophylaxis Lovenox. GI prophylaxis Protonix Patient started IV Cardizem and IV Lasix Cardiology service consulted We'll consult social work services for discharge planning
--- NOTE | 2023-10-02 17:00 | P.PN ---
Subjective History of present illness: This is an 78-year-old female patient of Dr. Flores with past medical history of persistent atrial fibrillation/flutter recently taken off Coumadin, known EF of 37%, history of mitral valve repair, nonischemic cardiomyopathy, pulmonary hypertension, hypothyroidism, chronic hypoxic respiratory failure on home O2. Patient was recently hospitalized last week for A-fib atrial flutter with RVR. Dr. Flores discussed anticoagulation with the patient at that time and Coumadin was discontinued and patient was discharged home on September 23. We have been asked to evaluate the patient for heart failure and A-fib with RVR. Patient presented to the emergency center due to shortness of breath wheezing hypoxia and tachycardia. Patient expresses that she cannot remember to take her medications but her is now at bedside and states that she has been taking her medications as directed. Her initial heart rate was in the 130s. Patient has been started on a Cardizem drip and home medications have been resumed. Patient had a nebulizer treatment this morning with improvement of her shortness of breath. Patient is seen today in the emergency center waiting for a bed on the cardiac stepdown unit. EKG atrial fibrillation 126 bpm Chest x-ray: Findings suggest congestive heart failure. Infiltrates of other et iology not excluded. WBC 7.8, hemoglobin 11, platelet count 222. INR 1.1. Electrolytes and renal f unction normal. Blood sugar 173. Troponin negative x 1. proBNP 5740. Home cardiac medications: Aspirin 81 mg daily, Bumex 1 mg daily, Farxiga 10 mg daily, Lasix 40 mg daily, Lopressor 50 mg twice daily, patient also on levothyroxine 150 mcg daily. Echocardiogram in June 2023 revealed ejection fraction 30-35%, severe pulmonary hypertension, bioprosthetic aortic valve, and mitral valve repair with mild MR Cardiac catheterization history: October 2017 revealing normal coronary arteries Cardioversion 07/05/2022 for atrial flutter with synagogue of sinus rhythm Aortic valve replacement 10/13/2017 with Magna Ease bioprosthetic aortic valve, mitral valve repair with [employer] annular flex band, clip ligation of the left atrial appendage. MATTHEW performed 01/30/2018 revealed sutured left atrial appendage, bioprosthetic aortic valve with normal functioning, mitral annuloplasty with mitral valve repair and mild mitral regurgitation. Moderate tricuspid regurgitation. No evidence of shunting across the intra-atrial septum. 10/02 Patient seen and examined. Patient denies any chest pain or pressure. She does continue to have significant shortness breath however may be mildly improved. H eart rates controlled. Creatinine stable Physical examination: Gen: This is an 78-year-old female resting in appears to be in no acute distress. VS: reviewed HEENT: Head is atraumatic, normocephalic. Pupils equal, round. Sclerae is anicteric. NECK: Supple. No JVD. LUNGS: Diminished with scattered wheeze. No intercostal retractions. HEART: Irregular rate and rhythm. 2/6 systolic murmur. ABDOMEN: Soft No tenderness. EXTREMITIES: No pedal edema. No calf tenderness. NEUROLOGICAL: Patient is awake, alert. Assessment: Persistent atrial fibrillation presenting with with RVR Mitral valve repair Nonischemic cardiomyopathy Pulmonary hypertension Hypothyroidism Plan: Continue current cardiac medications No need to repeat echocardiogram Continue with IV diuresis, appears to be slowly improving Further recommendations as patient progresses. Thank you kindly for this consultation. Objective - Vital Signs Vital signs: Vital Signs Temp 97.8 F 10/02/23 11:25 Pulse 86 10/02/23 16:00 Resp 18 10/02/23 16:00 BP 103/59 10/02/23 16:00 Pulse Ox 95 10/02/23 16:00 FiO2 Intake & Output 10/01/23 10/02/23 10/02/23 18:59 06:59 18:59 Intake Total 225 210 Output Total 2300 950 450 Balance -2075 -950 -240 Weight 46.72 kg 47.5 kg 47.5 kg Intake: IV 10 Invasive Line 2 10 Oral 225 200 Output: Urine 2300 950 450 Uretheral (Villegas) 1700 Other: Voiding Method Indwelling Catheter Indwelling Catheter # Bowel Movements 1 - Labs CBC & Chem 7: 10/02/23 10:15 10/02/23 10:15 Labs: Abnormal Lab Results - Last 24 Hours (Table) 10/02/23 10/02/23 Range/Units 10:15 10:15 RBC 3.51 L (3.80-5.40) m/uL Hgb 10.0 L (11.4-16.0) gm/dL Hct 32.3 L (34.0-46.0) % MCHC 30.9 L (31.0-37.0) g/dL RDW 15.6 H (11.5-15.5) % Carbon Dioxide 31 H (22-30) mmol/L BUN 23 H (7-17) mg/dL Alkaline Phosphatase 132 H (38-126) U/L Albumin 3.4 L (3.5-5.0) g/dL Microbiology - Last 24 Hours (Table) 09/30/23 06:00 Blood Culture - Preliminary Blood
[2023-10-02] MEDS: GENTAMICIN 0.3% OPHTH DROPS 5 ML BTL BOTH EYES SCH (18:08)
[2023-10-02] MEDS: HYDROcodone/APAP 10-325MG 1 EACH TAB PO PRN (22:36)
[2023-10-03] MEDS: ALPRAZolam 0.25 MG TAB PO PRN (00:19)
[2023-10-03 08:50] LABS: Basophils # (A) 0.1 k/uL (0-0.2); Basophils % (A) 1 %; Eosinophils # (A) 0.3 k/uL (0-0.7); Eosinophils % (A) 6 %; HCT 33.9 % (34.0-46.0); HGB 10.5 gm/dL (11.4-16.0); Hypochromasia Marked; Lymphocytes # (A) 1.6 k/uL (1.0-4.8); Lymphocytes % (A) 27 %; MCH 28.7 pg (25.0-35.0); MCV 92.6 fL (80.0-100.0); Mean Platelet Volume 8.5; Monocytes # (A) 0.3 k/uL (0-1.0); Monocytes % (A) 6 %; Neutrophils # (A) 3.4 k/uL (1.3-7.7); Neutrophils % (A) 57 %; Platelet Count 261 k/uL (150-450); RBC 3.67 m/uL (3.80-5.40); RDW 15.7 % (11.5-15.5); WBC 5.9 k/uL (3.8-10.6)
[2023-10-03 09:05] LABS: ALT 15 U/L (4-34); AST 21 U/L (14-36); African American GFR (CKD) 68 (>60 ml/min/1.73 sqM); Albumin 3.7 g/dL (3.5-5.0); Alkaline Phosphatase 125 U/L (38-126); Anion Gap 7 mmol/L; Blood Urea Nitrogen 24 mg/dL (7-17); Calcium 8.7 mg/dL (8.4-10.2); Carbon Dioxide 34 mmol/L (22-30); Chloride 97 mmol/L (98-107); Glucose 100 mg/dL (74-99); Non-African American GFR(CKD) 59 (>60 ml/min/1.73 sqM); Potassium 3.9 mmol/L (3.5-5.1); Sodium 138 mmol/L (137-145); Total Bilirubin 0.9 mg/dL (0.2-1.3); Total Protein 6.9 g/dL (6.3-8.2)
[2023-10-03] MEDS: BUMETANIDE 1 MG TAB PO SCH (09:07)
--- NOTE | 2023-10-03 11:19 | P.PN ---
Subjective Progress Note Date: 10/03/23 This is an 78 -year-old female patient who presented with concerns of increased shortness of breath. Concerns of medical compliance. Patient appears to be a poor historian at this time drifting off to sleep quite quickly. Patient has had multiple admissions in the past few months. Patient has past medical history of CHF, paroxysmal atrial fibrillation, valvular heart disease with a ordered valve replacement and mitral valve repair, pulmonary hypertension, COPD, hypothyroidism, rheumatoid arthritis and chronic disease. EKG completed showing ectopic atrial tachycardia with short AR interval with occasional ectopic premature complexes with a rate of 126. Chest x-ray completed showing findings suggestive of congestive heart failure. Infiltrates of other etiology not excluded. Troponin negative. BPH elevated 5740. Creatinine 0.64 and 15. White blood cell 7.8. Vital signs 97.3, heart rate 110, respiratory rate 20, blood pressure 112/83 and a pulse ox of 98% on 2 L. At this time patient will be started on IV Cardizem and IV Lasix cardiology service is consulted. Patient is resting currently in bed patient is sleepy but does wake up to questions but quickly falls back to sleep. Patient denies chest pain or shortness of breath. Patient denies nausea vomiting or diarrhea. Patient denies any urinary burning or frequency on 10/01/2023 patient was seen and examined on the telemetry floor, she is alert and oriented 3 in no apparent distress, she is still complaining of generalized weakness and shortness of breath, otherwise she denies any complaints there is no fever or chills no headache or dizziness no chest pain no nausea or vomiting no abdominal pain no diarrhea and no urinary symptoms. On 10/02/2023 patient was seen and examined on the medical floor she is alert and oriented 3 in no distress she is still complaining of weakness and shortness of breath otherwise she denies any complaints there is no fever or chills no headache or dizziness no chest pain, no cough no nausea or vomiting no abdominal pain no diarrhea and no urinary symptoms, patient is also complaining of bilateral eye burning and erythema. Blood pressure is on the low side, at this time will discontinue IV Lasix, will start Bumex 2 mg daily in a.m. starting tomorrow. Possible discharge to home in the next 1-2 days On 10/03/2023 patient was seen and examined on the medical floor she is alert and oriented 3 in no distress she is still complaining of weakness and shortness of breath otherwise she denies any complaints there is no fever or chills no headache or dizziness no chest pain, no cough no nausea or vomiting no abdominal pain no diarrhea and no urinary symptoms, patient is also complaining of bilateral eye burning and erythema. At this time will continue with same medications, recheck chest x-ray, recheck labs in a.m.. Objective - Vital Signs Vital signs: Vital Signs Temp 97.5 F L 10/03/23 07:39 Pulse 72 10/03/23 07:39 Resp 16 10/03/23 07:39 BP 91/53 10/03/23 07:39 Pulse Ox 98 10/03/23 07:39 FiO2 Intake & Output 10/02/23 10/03/23 10/03/23 18:59 06:59 18:59 Intake Total 435 320 Output Total 1150 700 Balance -715 -700 320 Weight 47.5 kg 48 kg Intake: IV 10 10 Invasive Line 2 10 10 Oral 425 310 Output: Urine 1150 700 Other: Voiding Method Indwelling Catheter Indwelling Catheter Indwelling Catheter # Bowel Movements 1 - Exam In general patient is alert and oriented x 3 in no distress HEENT head normocephalic and atraumatic Neck is supple no JVD no goiter no lymphadenopathy no carotid bruit Chest examination reveals a few scattered crackles no wheezing Cardiac exam reveals regular heart sounds S1 and S2 no gallops no murmurs Abdomen is soft nontender no organomegaly with normal bowel sounds Extremity exam reveals no edema no cyanosis or clubbing Neurological examination reveals no gross focal deficits - Labs CBC & Chem 7: 10/03/23 08:05 10/03/23 08:05 Labs: Abnormal Lab Results - Last 24 Hours (Table) 10/03/23 10/03/23 Range/Units 08:05 08:05 RBC 3.67 L (3.80-5.40) m/uL Hgb 10.5 L (11.4-16.0) gm/dL Hct 33.9 L (34.0-46.0) % RDW 15.7 H (11.5-15.5) % Chloride 97 L (98-107) mmol/L Carbon Dioxide 34 H (22-30) mmol/L BUN 24 H (7-17) mg/dL Glucose 100 H (74-99) mg/dL Microbiology - Last 24 Hours (Table) 09/30/23 06:00 Blood Culture - Preliminary Blood Assessment and Plan Assessment: 1. Shortness of breath secondary to acute exacerbation of CHF 2. Questionable medical compliance 3. History of chronic systolic congestive heart failure 4. History of paroxysmal atrial fibrillation. Coumadin was previously DC'd per cardiology during previous admission 5. 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 History of pulmonary hypertension 7. History of COPD 8. History of hypothyroidism 9. History of rheumatoid arthritis 10. History of chronic kidney disease DVT prophylaxis Lovenox. GI prophylaxis Protonix Patient started IV Cardizem and IV Lasix Cardiology service consulted We'll consult social work services for discharge planning
--- NOTE | 2023-10-03 12:41 | P.PN ---
Subjective Progress Note Date: 10/03/23 History of present illness: This is an 78-year-old female patient of Dr. Flores with past medical history of persistent atrial fibrillation/flutter recently taken off Coumadin, known EF of 37%, history of mitral valve repair, nonischemic cardiomyopathy, pulmonary hypertension, hypothyroidism, chronic hypoxic respiratory failure on home O2. Patient was recently hospitalized last week for A-fib atrial flutter with RVR. Dr. Flores discussed anticoagulation with the patient at that time and Coumadin was discontinued and patient was discharged home on September 23. We have been asked to evaluate the patient for heart failure and A-fib with RVR. Patient presented to the emergency center due to shortness of breath wheezing hypoxia and tachycardia. Patient expresses that she cannot remember to take her medications but her is now at bedside and states that she has been taking her medications as directed. Her initial heart rate was in the 130s. Patient has been started on a Cardizem drip and home medications have been resumed. Patient had a nebulizer treatment this morning with improvement of her shortness of breath. Patient is seen today in the emergency center waiting for a bed on the cardiac stepdown unit. EKG atrial fibrillation 126 bpm Chest x-ray: Findings suggest congestive heart failure. Infiltrates of other etiology not excluded. WBC 7.8, hemoglobin 11, platelet count 222. INR 1.1. Electrolytes and renal function normal. Blood sugar 173. Troponin negative x 1. proBNP 5740. Home cardiac medications: Aspirin 81 mg daily, Bumex 1 mg daily, Farxiga 10 mg daily, Lasix 40 mg daily, Lopressor 50 mg twice daily, patient also on levothyroxine 150 mcg daily. Echocardiogram in June 2023 revealed ejection fraction 30-35%, severe pulmonary hypertension, bioprosthetic aortic valve, and mitral valve repair with mild MR Cardiac catheterization history: October 2017 revealing normal coronary arteries Cardioversion 07/05/2022 for atrial flutter with rastafari of sinus rhythm Aortic valve replacement 10/13/2017 with Magna Ease bioprosthetic aortic valve, mitral valve repair with [employer] annular flex band, clip ligation of the left atrial appendage. MATTHEW performed 01/30/2018 revealed sutured left atrial appendage, bioprosthetic aortic valve with normal functioning, mitral annuloplasty with mitral valve repair and mild mitral regurgitation. Moderate tricuspid regurgitation. No evidence of shunting across the intra-atrial septum. 10/02 Patient seen and examined. Patient denies any chest pain or pressure. She does continue to have significant shortness breath however may be mildly improved. Heart rates controlled. Creatinine stable 10/03 Repeat blood work reveals hemoglobin 10.5, potassium 3.9, BUN 29 creatinine 0.93. Blood sugar 104/66. Heart rate is controlled in the 60s to 80s. Pulse ox 99% on 2 L nasal cannula. Continue patient has been transition to IV Lasix to Bumex 2 mg daily oral. Echocardiogram from 06/28/2023 in more detail revealed right ventricular EF 30 to 35%. Severe right ventricular dilation. RVSP 50 may be undetermined secondary to low output state. Severe right atrial dilatation, severe left atrial dilatation. Status post mitral valve repair with moderate mitral calcification mild mitral regurgitation. Bioprosthetic aortic valve with no significant aortic regurgitation. Severe torrential tricuspid regurgitation. No pericardial effusion. Patient was previously on Revatio and this was discontinued on her hospitalization September 19 by cardiology. Reviewed with the patient the findings on the echocardiogram. Physical examination: Gen: This is an 78-year-old female resting in appears to be in no acute distress. VS: reviewed HEENT: Head is atraumatic, normocephalic. Pupils equal, round. Sclerae is anicteric. LUNGS: Diminished with scattered wheeze. No intercostal retractions. HEART: Irregular rate and rhythm. 2/6 systolic murmur. ABDOMEN: Soft No tenderness. EXTREMITIES: No pedal edema. No calf tenderness. NEUROLOGICAL: Patient is awake, alert. Assessment: Persistent atrial fibrillation presenting with with RVR, currently rate controlled Mitral valve repair Nonischemic cardiomyopathy Pulmonary hypertension Hypothyroidism Severe tricuspid regurgitation, severe right atrial dilatation Plan: Continue current cardiac medications No need to repeat echocardiogram Continue Bumex 2 mg daily per attending Further recommendations as patient progresses. Nurse practitioner note has been reviewed, I agree with documented findings and plan of care. Patient was seen and examined. Objective - Vital Signs Vital signs: Vital Signs Temp 97.5 F L 10/03/23 11:42 Pulse 80 10/03/23 11:42 Resp 18 10/03/23 11:42 BP 104/66 10/03/23 11:42 Pulse Ox 99 10/03/23 11:42 FiO2 Intake & Output 10/02/23 10/03/23 10/03/23 18:59 06:59 18:59 Intake Total 435 320 Output Total 1150 700 Balance -715 -700 320 Weight 47.5 kg 48 kg Intake: IV 10 10 Invasive Line 2 10 10 Oral 425 310 Output: Urine 1150 700 Other: Voiding Method Indwelling Catheter Indwelling Catheter Indwelling Catheter # Bowel Movements 1 - Labs CBC & Chem 7: 10/03/23 08:05 10/03/23 08:05 Labs: Abnormal Lab Results - Last 24 Hours (Table) 10/03/23 10/03/23 Range/Units 08:05 08:05 RBC 3.67 L (3.80-5.40) m/uL Hgb 10.5 L (11.4-16.0) gm/dL Hct 33.9 L (34.0-46.0) % RDW 15.7 H (11.5-15.5) % Chloride 97 L (98-107) mmol/L Carbon Dioxide 34 H (22-30) mmol/L BUN 24 H (7-17) mg/dL Glucose 100 H (74-99) mg/dL Microbiology - Last 24 Hours (Table) 09/30/23 06:00 Blood Culture - Preliminary Blood
--- NOTE | 2023-10-03 16:26 | XR ---
EXAMINATION TYPE: XR chest 1V portable DATE OF EXAM: 10/03/2023 Comparison: 09/30/2023 Clinical History: 78-year-old female with CHF Findings: Reverse right shoulder arthroplasty noted. Heart mildly enlarged. Diffuse interstitial density. Kerle y B lines mid and lower lungs. Small effusions particularly on the left. Prosthetic aortic valve. Med meghna sternotomy wires. Impression: CHF with mild interstitial pulmonary edema. Small effusions left greater than right. Overall findings appear slightly improved from 09/30/2023.
[2023-10-04 10:18] LABS: Basophils # (A) 0.1 k/uL (0-0.2); Basophils % (A) 1 %; Eosinophils # (A) 0.3 k/uL (0-0.7); Eosinophils % (A) 5 %; HCT 35.3 % (34.0-46.0); HGB 11.1 gm/dL (11.4-16.0); Hypochromasia Marked; Lymphocytes # (A) 1.3 k/uL (1.0-4.8); Lymphocytes % (A) 22 %; MCH 28.9 pg (25.0-35.0); MCHC 31.4 g/dL (31.0-37.0); MCV 91.9 fL (80.0-100.0); Mean Platelet Volume 8.3; Monocytes # (A) 0.4 k/uL (0-1.0); Monocytes % (A) 6 %; Neutrophils # (A) 3.8 k/uL (1.3-7.7); Neutrophils % (A) 62 %; Platelet Count 269 k/uL (150-450); RBC 3.85 m/uL (3.80-5.40); RDW 15.5 % (11.5-15.5); WBC 6.1 k/uL (3.8-10.6)
[2023-10-04 10:53] LABS: ALT 14 U/L (4-34); AST 20 U/L (14-36); African American GFR (CKD) 73 (>60 ml/min/1.73 sqM); Albumin 3.6 g/dL (3.5-5.0); Alkaline Phosphatase 138 U/L (38-126); Anion Gap 8 mmol/L; Blood Urea Nitrogen 25 mg/dL (7-17); Calcium 8.9 mg/dL (8.4-10.2); Carbon Dioxide 34 mmol/L (22-30); Chloride 97 mmol/L (98-107); Glucose 104 mg/dL (74-99); Non-African American GFR(CKD) 63 (>60 ml/min/1.73 sqM); Potassium 3.8 mmol/L (3.5-5.1); Sodium 139 mmol/L (137-145); Total Bilirubin 0.8 mg/dL (0.2-1.3); Total Protein 6.9 g/dL (6.3-8.2)
--- NOTE | 2023-10-04 10:53 | P.PN ---
Subjective Progress Note Date: 10/04/23 History of present illness: This is an 78-year-old female patient of Dr. Flores with past medical history of persistent atrial fibrillation/flutter recently taken off Coumadin, known EF of 37%, history of mitral valve repair, nonischemic cardiomyopathy, pulmonary hypertension, hypothyroidism, chronic hypoxic respiratory failure on home O2. Patient was recently hospitalized last week for A-fib atrial flutter with RVR. Dr. Flores discussed anticoagulation with the patient at that time and Coumadin was discontinued and patient was discharged home on September 23. We have been asked to evaluate the patient for heart failure and A-fib with RVR. Patient presented to the emergency center due to shortness of breath wheezing hypoxia and tachycardia. Patient expresses that she cannot remember to take her medications but her is now at bedside and states that she has been taking her medications as directed. Her initial heart rate was in the 130s. Patient has been started on a Cardizem drip and home medications have been resumed. Patient had a nebulizer treatment this morning with improvement of her shortness of breath. Patient is seen today in the emergency center waiting for a bed on the cardiac stepdown unit. EKG atrial fibrillation 126 bpm Chest x-ray: Findings suggest congestive heart failure. Infiltrates of other etiology not excluded. WBC 7.8, hemoglobin 11, platelet count 222. INR 1.1. Electrolytes and renal function normal. Blood sugar 173. Troponin negative x 1. proBNP 5740. Home cardiac medications: Aspirin 81 mg daily, Bumex 1 mg daily, Farxiga 10 mg daily, Lasix 40 mg daily, Lopressor 50 mg twice daily, patient also on levothyroxine 150 mcg daily. Echocardiogram in June 2023 revealed ejection fraction 30-35%, severe pulmonary hypertension, bioprosthetic aortic valve, and mitral valve repair with mild MR Cardiac catheterization history: October 2017 revealing normal coronary arteries Cardioversion 07/05/2022 for atrial flutter with worship of sinus rhythm Aortic valve replacement 10/13/2017 with Magna Ease bioprosthetic aortic valve, mitral valve repair with [employer] annular flex band, clip ligation of the left atrial appendage. MATTHEW performed 01/30/2018 revealed sutured left atrial appendage, bioprosthetic aortic valve with normal functioning, mitral annuloplasty with mitral valve repair and mild mitral regurgitation. Moderate tricuspid regurgitation. No evidence of shunting across the intra-atrial septum. 10/02 Patient seen and examined. Patient denies any chest pain or pressure. She does continue to have significant shortness breath however may be mildly improved. Heart rates controlled. Creatinine stable 10/03 Repeat blood work reveals hemoglobin 10.5, potassium 3.9, BUN 29 creatinine 0.93. Blood sugar 104/66. Heart rate is controlled in the 60s to 80s. Pulse ox 99% on 2 L nasal cannula. Continue patient has been transition to IV Lasix to Bumex 2 mg daily oral. Echocardiogram from 06/28/2023 in more detail revealed right ventricular EF 30 to 35%. Severe right ventricular dilation. RVSP 50 may be undetermined secondary to low output state. Severe right atrial dilatation, severe left atrial dilatation. Status post mitral valve repair with moderate mitral calcification mild mitral regurgitation. Bioprosthetic aortic valve with no significant aortic regurgitation. Severe torrential tricuspid regurgitation. No pericardial effusion. Patient was previously on Revatio and this was discontinued on her hospitalization September 19 by cardiology. Reviewed with the patient the findings on the echocardiogram. 10/04 Patient has no new concerns today. Her blood pressure was low this morning 85/48 and attending was contacted, Bumex and Lopressor placed on hold. Chemistry panel has not been reported. Physical examination: Gen: This is an 78-year-old female resting in appears to be in no acute distress. VS: reviewed HEENT: Head is atraumatic, normocephalic. Pupils equal, round. Sclerae is anicteric. LUNGS: Diminished with scattered wheeze. No intercostal retractions. HEART: Irregular rate and rhythm. 2/6 systolic murmur. ABDOMEN: Soft No tenderness. EXTREMITIES: No pedal edema. No calf tenderness. NEUROLOGICAL: Patient is awake, alert. Assessment: Persistent atrial fibrillation presenting with with RVR, currently rate controlled Mitral valve repair Nonischemic cardiomyopathy Pulmonary hypertension Hypothyroidism Severe tricuspid regurgitation, severe right atrial dilatation Plan: Continue current cardiac medications No need to repeat echocardiogram Continue Bumex 2 mg daily per attending--agree with holding today due to hypotension along with Lopressor Monitor blood pressure Further recommendations as patient progresses. Nurse practitioner note has been reviewed, I agree with documented findings and plan of care. Patient was seen and examined. Objective - Vital Signs Vital signs: Vital Signs Temp 97.5 F L 10/04/23 08:20 Pulse 55 L 10/04/23 08:20 Resp 18 10/04/23 08:20 BP 85/48 10/04/23 08:20 Pulse Ox 97 10/04/23 08:20 FiO2 Intake & Output 10/03/23 10/04/23 10/04/23 18:59 06:59 18:59 Intake Total 560 240 Output Total 1275 280 300 Balance -715 -280 -60 Weight 51.5 kg Intake: IV 10 Invasive Line 2 10 Oral 550 240 Output: Urine 1275 280 300 Other: Voiding Method Indwelling Catheter Indwelling Catheter Indwelling Catheter - Labs CBC & Chem 7: 10/04/23 09:00 10/03/23 08:05 Labs: Abnormal Lab Results - Last 24 Hours (Table) 10/04/23 Range/Units 09:00 Hgb 11.1 L (11.4-16.0) gm/dL Microbiology - Last 24 Hours (Table) 09/30/23 06:00 Blood Culture - Preliminary Blood
--- NOTE | 2023-10-04 11:35 | P.PN ---
Subjective Progress Note Date: 10/04/23 This is an 78 -year-old female patient who presented with concerns of increased shortness of breath. Concerns of medical compliance. Patient appears to be a poor historian at this time drifting off to sleep quite quickly. Patient has had multiple admissions in the past few months. Patient has past medical history of CHF, paroxysmal atrial fibrillation, valvular heart disease with a ordered valve replacement and mitral valve repair, pulmonary hypertension, COPD, hypothyroidism, rheumatoid arthritis and chronic disease. EKG completed showing ectopic atrial tachycardia with short MA interval with occasional ectopic premature complexes with a rate of 126. Chest x-ray completed showing findings suggestive of congestive heart failure. Infiltrates of other etiology not excluded. Troponin negative. BPH elevated 5740. Creatinine 0.64 and 15. White blood cell 7.8. Vital signs 97.3, heart rate 110, respiratory rate 20, blood pressure 112/83 and a pulse ox of 98% on 2 L. At this time patient will be started on IV Cardizem and IV Lasix cardiology service is consulted. Patient is resting currently in bed patient is sleepy but does wake up to questions but quickly falls back to sleep. Patient denies chest pain or shortness of breath. Patient denies nausea vomiting or diarrhea. Patient denies any urinary burning or frequency on 10/01/2023 patient was seen and examined on the telemetry floor, she is alert and oriented 3 in no apparent distress, she is still complaining of generalized weakness and shortness of breath, otherwise she denies any complaints there is no fever or chills no headache or dizziness no chest pain no nausea or vomiting no abdominal pain no diarrhea and no urinary symptoms. On 10/02/2023 patient was seen and examined on the medical floor she is alert and oriented 3 in no distress she is still complaining of weakness and shortness of breath otherwise she denies any complaints there is no fever or chills no headache or dizziness no chest pain, no cough no nausea or vomiting no abdominal pain no diarrhea and no urinary symptoms, patient is also complaining of bilateral eye burning and erythema. Blood pressure is on the low side, at this time will discontinue IV Lasix, will start Bumex 2 mg daily in a.m. starting tomorrow. Possible discharge to home in the next 1-2 days On 10/03/2023 patient was seen and examined on the medical floor she is alert and oriented 3 in no distress she is still complaining of weakness and shortness of breath otherwise she denies any complaints there is no fever or chills no headache or dizziness no chest pain, no cough no nausea or vomiting no abdominal pain no diarrhea and no urinary symptoms, patient is also complaining of bilateral eye burning and erythema. At this time will continue with same medications, recheck chest x-ray, recheck labs in a.m.. On 10/04/2023 patient is alert and oriented 3 in no distress she is still complaining of weakness and shortness of breath otherwise she denies any complaints there is no fever or chills no headache or dizziness no chest pain, no cough no nausea or vomiting no abdominal pain no diarrhea and no urinary symptoms, patient is also complaining of bilateral eye burning and erythema. BP was low this am, will hold Metoprolol and Bumex and monitor closely. Objective - Vital Signs Vital signs: Vital Signs Temp 97.5 F L 10/04/23 08:20 Pulse 55 L 10/04/23 08:20 Resp 18 10/04/23 08:20 BP 85/48 10/04/23 08:20 Pulse Ox 97 10/04/23 08:20 FiO2 Intake & Output 10/03/23 10/04/23 10/04/23 18:59 06:59 18:59 Intake Total 560 240 Output Total 1275 280 300 Balance -715 -280 -60 Weight 51.5 kg Intake: IV 10 Invasive Line 2 10 Oral 550 240 Output: Urine 1275 280 300 Other: Voiding Method Indwelling Catheter Indwelling Catheter Indwelling Catheter - Exam In general patient is alert and oriented x 3 in no distress HEENT head normocephalic and atraumatic Neck is supple no JVD no goiter no lymphadenopathy no carotid bruit Chest examination reveals a few scattered crackles no wheezing Cardiac exam reveals regular heart sounds S1 and S2 no gallops no murmurs Abdomen is soft nontender no organomegaly with normal bowel sounds Extremity exam reveals no edema no cyanosis or clubbing Neurological examination reveals no gross focal deficits - Labs CBC & Chem 7: 10/04/23 09:00 10/04/23 09:00 Labs: Abnormal Lab Results - Last 24 Hours (Table) 10/04/23 10/04/23 Range/Units 09:00 09:00 Hgb 11.1 L (11.4-16.0) gm/dL Chloride 97 L (98-107) mmol/L Carbon Dioxide 34 H (22-30) mmol/L BUN 25 H (7-17) mg/dL Glucose 104 H (74-99) mg/dL Alkaline Phosphatase 138 H (38-126) U/L Microbiology - Last 24 Hours (Table) 09/30/23 06:00 Blood Culture - Preliminary Blood Assessment and Plan Assessment: 1. Shortness of breath secondary to acute exacerbation of CHF 2. Questionable medical compliance 3. History of chronic systolic congestive heart failure 4. History of paroxysmal atrial fibrillation. Coumadin was previously DC'd per cardiology during previous admission 5. 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 History of pulmonary hypertension 7. History of COPD 8. History of hypothyroidism 9. History of rheumatoid arthritis 10. History of chronic kidney disease DVT prophylaxis Lovenox. GI prophylaxis Protonix Patient started IV Cardizem and IV Lasix Cardiology service consulted We'll consult social work services for discharge planning
--- NOTE | 2023-10-05 09:35 | P.PN ---
Subjective Progress Note Date: 10/05/23 This is an 78 -year-old female patient who presented with concerns of increased shortness of breath. Concerns of medical compliance. Patient appears to be a poor historian at this time drifting off to sleep quite quickly. Patient has had multiple admissions in the past few months. Patient has past medical history of CHF, paroxysmal atrial fibrillation, valvular heart disease with a ordered valve replacement and mitral valve repair, pulmonary hypertension, COPD, hypothyroidism, rheumatoid arthritis and chronic disease. EKG completed showing ectopic atrial tachycardia with short DE interval with occasional ectopic premature complexes with a rate of 126. Chest x-ray completed showing findings suggestive of congestive heart failure. Infiltrates of other etiology not excluded. Troponin negative. BPH elevated 5740. Creatinine 0.64 and 15. White blood cell 7.8. Vital signs 97.3, heart rate 110, respiratory rate 20, blood pressure 112/83 and a pulse ox of 98% on 2 L. At this time patient will be started on IV Cardizem and IV Lasix cardiology service is consulted. Patient is resting currently in bed patient is sleepy but does wake up to questions but quickly falls back to sleep. Patient denies chest pain or shortness of breath. Patient denies nausea vomiting or diarrhea. Patient denies any urinary burning or frequency on 10/01/2023 patient was seen and examined on the telemetry floor, she is alert and oriented 3 in no apparent distress, she is still complaining of generalized weakness and shortness of breath, otherwise she denies any complaints there is no fever or chills no headache or dizziness no chest pain no nausea or vomiting no abdominal pain no diarrhea and no urinary symptoms. On 10/02/2023 patient was seen and examined on the medical floor she is alert an d oriented 3 in no distress she is still complaining of weakness and shortness of breath otherwise she denies any complaints there is no fever or chills no headache or dizziness no chest pain, no cough no nausea or vomiting no abdominal pain no diarrhea and no urinary symptoms, patient is also complaining of bilateral eye burning and erythema. Blood pressure is on the low side, at this time will discontinue IV Lasix, will start Bumex 2 mg daily in a.m. starting tomorrow. Possible discharge to home in the next 1-2 days On 10/03/2023 patient was seen and examined on the medical floor she is alert and oriented 3 in no distress she is still complaining of weakness and shortness of breath otherwise she denies any complaints there is no fever or chills no headache or dizziness no chest pain, no cough no nausea or vomiting no abdominal pain no diarrhea and no urinary symptoms, patient is also complaining of bilateral eye burning and erythema. At this time will continue with same medications, recheck chest x-ray, recheck labs in a.m.. On 10/04/2023 patient is alert and oriented 3 in no distress she is still complaining of weakness and shortness of breath otherwise she denies any co mplaints there is no fever or chills no headache or dizziness no chest pain, no cough no nausea or vomiting no abdominal pain no diarrhea and no urinary symptoms, patient is also complaining of bilateral eye burning and erythema. BP was low this am, will hold Metoprolol and Bumex and monitor closely. On 10/05/2023 patient is alert and oriented x 3. Vital signs this a.m. showing temp 98.1, heart rate 124, respiratory rate 18, blood pressure 108/57 with a pulse ox of 97% on 3 L. Awaiting cardiology input in regards to episodes of low blood pressure plus elevated heart rate. At this time patient denies chest pain or shortness breath. Patient denies nausea vomiting or diarrhea. Patient denie s any urinary burning or frequency Objective - Vital Signs Vital signs: Vital Signs Temp 98.1 F 10/05/23 08:00 Pulse 124 H 10/05/23 08:00 Resp 18 10/05/23 08:00 BP 108/57 10/05/23 08:00 Pulse Ox 97 10/05/23 08:00 FiO2 Intake & Output 10/04/23 10/05/23 10/05/23 18:59 06:59 18:59 Intake Total 600 10 180 Output Total 800 300 Balance -200 -290 180 Weight 49 kg Intake: IV 10 Invasive Line 2 10 Oral 600 180 Output: Urine 800 300 Other: Voiding Method Indwelling Catheter Indwelling Catheter # Bowel Movements 1 - Exam In general patient is alert and oriented x 3 in no distress HEENT head normocephalic and atraumatic Neck is supple no JVD no goiter no lymphadenopathy no carotid bruit Chest examination reveals a few scattered crackles no wheezing Cardiac exam reveals regular heart sounds S1 and S2 no gallops no murmurs Abdomen is soft nontender no organomegaly with normal bowel sounds Extremity exam reveals no edema no cyanosis or clubbing Neurological examination reveals no gross focal deficits - Labs CBC & Chem 7: 10/04/23 09:00 10/04/23 09:00 Labs: Abnormal Lab Results - Last 24 Hours (Table) 10/04/23 10/04/23 Range/Units 09:00 09:00 Hgb 11.1 L (11.4-16.0) gm/dL Chloride 97 L (98-107) mmol/L Carbon Dioxide 34 H (22-30) mmol/L BUN 25 H (7-17) mg/dL Glucose 104 H (74-99) mg/dL Alkaline Phosphatase 138 H (38-126) U/L Assessment and Plan Assessment: 1. Shortness of breath secondary to acute exacerbation of CHF 2. Questionable medical compliance 3. History of chronic systolic congestive heart failure 4. History of paroxysmal atrial fibrillation. Coumadin was previously DC'd per cardiology during previous admission 5. 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 History of pulmonary hypertension 7. History of COPD 8. History of hypothyroidism 9. History of rheumatoid arthritis 10. History of chronic kidney disease DVT prophylaxis Lovenox. GI prophylaxis Protonix Cardiology service consulted Patient maintained on by mouth Bumex and Lopressor We'll consult social work services for discharge planning
[2023-10-05 10:58] LABS: Basophils % (A) 1 %; Eosinophils # (A) 0.3 k/uL (0-0.7); Eosinophils % (A) 4 %; HCT 32.5 % (34.0-46.0); HGB 10.1 gm/dL (11.4-16.0); Hypochromasia Marked; Lymphocytes # (A) 1.1 k/uL (1.0-4.8); Lymphocytes % (A) 15 %; MCH 28.6 pg (25.0-35.0); MCHC 31.1 g/dL (31.0-37.0); MCV 91.8 fL (80.0-100.0); Mean Platelet Volume 8.5; Monocytes # (A) 0.5 k/uL (0-1.0); Monocytes % (A) 6 %; Neutrophils # (A) 4.9 k/uL (1.3-7.7); Neutrophils % (A) 70 %; Platelet Count 247 k/uL (150-450); RBC 3.54 m/uL (3.80-5.40); RDW 15.5 % (11.5-15.5)
[2023-10-05 11:09] LABS: ALT 12 U/L (4-34); AST 18 U/L (14-36); African American GFR (CKD) >90 (>60 ml/min/1.73 sqM); Albumin 3.4 g/dL (3.5-5.0); Alkaline Phosphatase 116 U/L (38-126); Anion Gap 4 mmol/L; Blood Urea Nitrogen 18 mg/dL (7-17); Calcium 8.7 mg/dL (8.4-10.2); Carbon Dioxide 34 mmol/L (22-30); Chloride 101 mmol/L (98-107); Glucose 106 mg/dL (74-99); Non-African American GFR(CKD) 78 (>60 ml/min/1.73 sqM); Potassium 3.5 mmol/L (3.5-5.1); Sodium 139 mmol/L (137-145); Total Bilirubin 0.8 mg/dL (0.2-1.3); Total Protein 6.6 g/dL (6.3-8.2)
--- NOTE | 2023-10-05 13:09 | P.PN ---
Subjective Progress Note Date: 10/05/23 History of present illness: This is an 78-year-old female patient of Dr. Flores with past medical history of persistent atrial fibrillation/flutter recently taken off Coumadin, known EF of 37%, history of mitral valve repair, nonischemic cardiomyopathy, pulmonary hypertension, hypothyroidism, chronic hypoxic respiratory failure on home O2. Patient was recently hospitalized last week for A-fib atrial flutter with RVR. Dr. Flores discussed anticoagulation with the patient at that time and Coumadin was discontinued and patient was discharged home on September 23. We have been asked to evaluate the patient for heart failure and A-fib with RVR. Patient presented to the emergency center due to shortness of breath wheezing hypoxia and tachycardia. Patient expresses that she cannot remember to take her medications but her is now at bedside and states that she has been taking her medications as directed. Her initial heart rate was in the 130s. Patient has been started on a Cardizem drip and home medications have been resumed. Patient had a nebulizer treatment this morning with improvement of her shortness of breath. Patient is seen today in the emergency center waiting for a bed on the cardiac stepdown unit. EKG atrial fibrillation 126 bpm Chest x-ray: Findings suggest congestive heart failure. Infiltrates of other etiology not excluded. WBC 7.8, hemoglobin 11, platelet count 222. INR 1.1. Electrolytes and renal function normal. Blood sugar 173. Troponin negative x 1. proBNP 5740. Home cardiac medications: Aspirin 81 mg daily, Bumex 1 mg daily, Farxiga 10 mg daily, Lasix 40 mg daily, Lopressor 50 mg twice daily, patient also on levothyroxine 150 mcg daily. Echocardiogram in June 2023 revealed ejection fraction 30-35%, severe pulmonary hypertension, bioprosthetic aortic valve, and mitral valve repair with mild MR Cardiac catheterization history: October 2017 revealing normal coronary arteries Cardioversion 07/05/2022 for atrial flutter with yazidi of sinus rhythm Aortic valve replacement 10/13/2017 with [employer] bioprosthetic aortic valve, mitral valve repair with [employer] annular flex band, clip ligation of the left atrial appendage. MATTHEW performed 01/30/2018 revealed sutured left atrial appendage, bioprosthetic aortic valve with normal functioning, mitral annuloplasty with mitral valve repair and mild mitral regurgitation. Moderate tricuspid regurgitation. No evidence of shunting across the intra-atrial septum. 10/02 Patient seen and examined. Patient denies any chest pain or pressure. She does continue to have significant shortness breath however may be mildly improved. Heart rates controlled. Creatinine stable 10/03 Repeat blood work reveals hemoglobin 10.5, potassium 3.9, BUN 29 creatinine 0.93. Blood sugar 104/66. Heart rate is controlled in the 60s to 80s. Pulse ox 99% on 2 L nasal cannula. Continue patient has been transition to IV Lasix to Bumex 2 mg daily oral. Echocardiogram from 06/28/2023 in more detail revealed right ventricular EF 30 to 35%. Severe right ventricular dilation. RVSP 50 may be undetermined secondary to low output state. Severe right atrial dilatation, severe left atrial dilatation. Status post mitral valve repair with moderate mitral calcification mild mitral regurgitation. Bioprosthetic aortic valve with no significant aortic regurgitation. Severe torrential tricuspid regurgitation. No pericardial effusion. Patient was previously on Revatio and this was discontinued on her hospitalization September 19 by cardiology. Reviewed with the patient the findings on the echocardiogram. 10/04 Patient has no new concerns today. Her blood pressure was low this morning 85/48 and attending was contacted, Bumex and Lopressor placed on hold. Chemistry panel has not been reported. 10/05 Patient's blood pressure is improved today 108/57, heart rate 88- 124. Patient did receive Lopressor this morning. Patient's nurse plans to give her Bumex shortly. Blood work from yesterday revealed sodium 139, potassium 3.8, BUN 25 creatinine 0.87. Physical examination: Gen: This is an 78-year-old female resting in appears to be in no acute distress. VS: reviewed HEENT: Head is atraumatic, normocephalic. Pupils equal, round. Sclerae is anicteric. LUNGS: Diminished with scattered wheeze. No intercostal retractions. HEART: Irregular rate and rhythm. 2/6 systolic murmur. ABDOMEN: Soft No tenderness. EXTREMITIES: No pedal edema. No calf tenderness. NEUROLOGICAL: Patient is awake, alert. Assessment: Persistent atrial fibrillation presenting with with RVR, currently rate controlled Mitral valve repair Nonischemic cardiomyopathy Pulmonary hypertension Hypothyroidism Severe tricuspid regurgitation, severe right atrial dilatation Plan: Continue current cardiac medications No need to repeat echocardiogram Continue Bumex 2 mg daily per attending Monitor blood pressure Prognosis guarded. Further recommendations as patient progresses. Nurse practitioner note has been reviewed, I agree with documented findings and plan of care. Patient was seen and examined. Objective - Vital Signs Vital signs: Vital Signs Temp 98.1 F 10/05/23 08:00 Pulse 124 H 10/05/23 08:00 Resp 18 10/05/23 08:00 BP 108/57 10/05/23 08:00 Pulse Ox 97 10/05/23 08:00 FiO2 Intake & Output 10/04/23 10/05/23 10/05/23 18:59 06:59 18:59 Intake Total 600 10 180 Output Total 800 300 Balance -200 -290 180 Weight 49 kg Intake: IV 10 Invasive Line 2 10 Oral 600 180 Output: Urine 800 300 Other: Voiding Method Indwelling Catheter Indwelling Catheter # Bowel Movements 1 - Labs CBC & Chem 7: 10/05/23 09:53 10/05/23 09:53 Labs: Abnormal Lab Results - Last 24 Hours (Table) 10/04/23 10/04/23 Range/Units 09:00 09:00 Hgb 11.1 L (11.4-16.0) gm/dL Chloride 97 L (98-107) mmol/L Carbon Dioxide 34 H (22-30) mmol/L BUN 25 H (7-17) mg/dL Glucose 104 H (74-99) mg/dL Alkaline Phosphatase 138 H (38-126) U/L
[2023-10-06 08:52] LABS: ALT 12 U/L (4-34); AST 20 U/L (14-36); African American GFR (CKD) 80 (>60 ml/min/1.73 sqM); Albumin 3.6 g/dL (3.5-5.0); Alkaline Phosphatase 122 U/L (38-126); Anion Gap 6 mmol/L; Blood Urea Nitrogen 20 mg/dL (7-17); Calcium 8.9 mg/dL (8.4-10.2); Carbon Dioxide 36 mmol/L (22-30); Chloride 96 mmol/L (98-107); Glucose 89 mg/dL (74-99); Non-African American GFR(CKD) 69 (>60 ml/min/1.73 sqM); Potassium 3.8 mmol/L (3.5-5.1); Sodium 138 mmol/L (137-145); Total Protein 6.9 g/dL (6.3-8.2)
[2023-10-06 08:57] LABS: Basophils % (A) 1 %; Eosinophils # (A) 0.3 k/uL (0-0.7); Eosinophils % (A) 5 %; HCT 34.4 % (34.0-46.0); HGB 10.9 gm/dL (11.4-16.0); Hypochromasia Marked; Lymphocytes # (A) 1.2 k/uL (1.0-4.8); Lymphocytes % (A) 19 %; MCH 28.9 pg (25.0-35.0); MCHC 31.6 g/dL (31.0-37.0); MCV 91.4 fL (80.0-100.0); Mean Platelet Volume 7.7; Monocytes # (A) 0.3 k/uL (0-1.0); Monocytes % (A) 5 %; Neutrophils # (A) 4.4 k/uL (1.3-7.7); Neutrophils % (A) 67 %; Platelet Count 251 k/uL (150-450); RBC 3.76 m/uL (3.80-5.40); RDW 15.7 % (11.5-15.5); WBC 6.5 k/uL (3.8-10.6)
[2023-10-06 10:46] VITALS: TEMP 98
--- NOTE | 2023-10-06 12:17 | P.DS ---
Providers Date of admission: 09/30/23 07:19 Expected date of discharge: 10/06/23 Attending physician: Olya Olson Consults: 09/30/23 08:07 Consult Physician Routine Consulting Provider: Alexx Flores Consult Reason/Comments: CHF, Afib RVR Do you want consulting provider notified?: Yes Primary care physician: Olya Whitney [facility] Course: Diagnosis on discharge: 1. Shortness of breath secondary to acute exacerbation of CHF 2. Questionable medical compliance 3. History of chronic systolic congestive heart failure 4. History of paroxysmal atrial fibrillation. Coumadin was previously DC'd per cardiology during previous admission 5. 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 History of pulmonary hypertension 7. History of COPD 8. History of hypothyroidism 9. History of rheumatoid arthritis 10. History of chronic kidney disease Hospital course: This is an 78 -year-old female patient who presented with concerns of increased shortness of breath. Concerns of medical compliance. Patient appears to be a poor historian at this time drifting off to sleep quite quickly. Patient has had multiple admissions in the past few months. Patient has past medical history of CHF, paroxysmal atrial fibrillation, valvular heart disease with a ordered valve replacement and mitral valve repair, pulmonary hypertension, COPD, hypothyroidism, rheumatoid arthritis and chronic disease. EKG completed showing ectopic atrial tachycardia with short [place] interval with occasional ectopic premature complexes with a rate of 126. Chest x-ray completed showing findings suggestive of congestive heart failure. Infiltrates of other etiology not excluded. Troponin negative. BPH elevated 5740. Creatinine 0.64 and 15. White blood cell 7.8. Vital signs 97.3, heart rate 110, respiratory rate 20, blood pressure 112/83 and a pulse ox of 98% on 2 L. At this time patient will be started on IV Cardizem and IV Lasix cardiology service is consulted. Patient is resting currently in bed patient is sleepy but does wake up to questions but quickly falls back to sleep. Patient denies chest pain or shortness of breath. Patient denies nausea vomiting or diarrhea. Patient denies any urinary burning or frequency on 10/01/2023 patient was seen and examined on the telemetry floor, she is alert and oriented 3 in no apparent distress, she is still complaining of generalized weakness and shortness of breath, otherwise she denies any complaints there is no fever or chills no headache or dizziness no chest pain no nausea or vomiting no abdominal pain no diarrhea and no urinary symptoms. On 10/02/2023 patient was seen and examined on the medical floor she is alert and oriented 3 in no distress she is still complaining of weakness and shortness of breath otherwise she denies any complaints there is no fever or chills no headache or dizziness no chest pain, no cough no nausea or vomiting no abdominal pain no diarrhea and no urinary symptoms, patient is also complaining of bilateral eye burning and erythema. Blood pressure is on the low side, at this time will discontinue IV Lasix, will start Bumex 2 mg daily in a.m. starting tomorrow. Possible discharge to home in the next 1-2 days On 10/03/2023 patient was seen and examined on the medical floor she is alert and oriented 3 in no distress she is still complaining of weakness and shortness of breath otherwise she denies any complaints there is no fever or chills no headache or dizziness no chest pain, no cough no nausea or vomiting no abdominal pain no diarrhea and no urinary symptoms, patient is also complaining of bilateral eye burning and erythema. At this time will continue with same medications, recheck chest x-ray, recheck labs in a.m.. On 10/04/2023 patient is alert and oriented 3 in no distress she is still complaining of weakness and shortness of breath otherwise she denies any comp laints there is no fever or chills no headache or dizziness no chest pain, no cough no nausea or vomiting no abdominal pain no diarrhea and no urinary symptoms, patient is also complaining of bilateral eye burning and erythema. BP was low this am, will hold Metoprolol and Bumex and monitor closely. On 10/05/2023 patient is alert and oriented 3 in no distress she is still complaining of weakness and shortness of breath otherwise she denies any complaints there is no fever or chills no headache or dizziness no chest pain, no cough no nausea or vomiting no abdominal pain no diarrhea and no urinary symptoms, patient is also complaining of bilateral eye burning and erythema. Patient was evaluated by cardiology again today and was cleared for discharge, she will be discharged to home today, will follow in the office in 2-3 days. Patient Condition at Discharge: Serious Plan - Discharge Summary Discharge Rx Participant: No New Discharge Prescriptions: New Gentamicin 0.3% Ophth Soln [Garamycin 0.3% Ophth Soln] 1 drops BOTH EYES Q4HR 5 Days #3 ml Continue Albuterol Sulfate [Proair Hfa] 2 puff INHALATION RT-Q6H PRN PRN Reason: Shortness Of Breath Ascorbic Acid [Vitamin C] 500 mg PO DAILY Cholecalciferol (Vitamin D3) [Vitamin D3 (125 MCG = 5,000 IU)] 125 mcg PO DAILY Ipratropium-Albuterol Nebulize [Duoneb 0.5 mg-3 mg/3 ml Soln] 3 ml INHALATION RT-Q6H PRN PRN Reason: Shortness Of Breath Levothyroxine Sodium [Synthroid] 150 mcg PO AC-BRKFST 30 Days #30 tablet Aspirin 81 mg PO DAILY tab Dapagliflozin Propanediol [Farxiga] 10 mg PO DAILY 30 Days #30 tab Metoprolol Tartrate [Lopressor] 50 mg PO BID 30 Days #60 tab HYDROcodone/APAP 10-325MG [Gorin 10-325] 1 tab PO Q8H PRN 3 Days #12 tab PRN Reason: Pain Bumetanide [BUMEX] 1 mg PO DAILY Discontinued Furosemide [Lasix] 40 mg PO DAILY Discharge Medication List Albuterol Sulfate [Proair Hfa] 2 puff INHALATION RT-Q6H PRN 07/28/19 [History] Ascorbic Acid [Vitamin C] 500 mg PO DAILY 05/08/21 [History] Cholecalciferol (Vitamin D3) [Vitamin D3 (125 MCG = 5,000 IU)] 125 mcg PO DAILY 06/06/22 [History] Ipratropium-Albuterol Nebulize [Duoneb 0.5 mg-3 mg/3 ml Soln] 3 ml INHALATION RT-Q6H PRN 06/06/22 [History] Levothyroxine Sodium [Synthroid] 150 mcg PO AC-BRKFST 30 Days #30 tablet 08/27/23 [Rx] Metoprolol Tartrate [Lopressor] 50 mg PO BID 30 Days #60 tab 08/27/23 [Rx] HYDROcodone/APAP 10-325MG [[place] 10-325] 1 tab PO Q8H PRN 3 Days #12 tab 09/14/23 [Rx] Aspirin 81 mg PO DAILY tab 09/22/23 [Rx] Dapagliflozin Propanediol [Farxiga] 10 mg PO DAILY 30 Days #30 tab 09/22/23 [Rx] Bumetanide [BUMEX] 1 mg PO DAILY 09/30/23 [History] Gentamicin 0.3% Ophth Soln [Garamycin 0.3% Ophth Soln] 1 drops BOTH EYES Q4HR 5 Days #3 ml 10/06/23 [Rx] Follow up Appointment(s)/Referral(s): Milton Doyle DO [Doctor of Osteopathic Medicine] - 2 Weeks Olya Olson MD [Primary Care Provider] - 1-2 days [facility] Visiting Nurse, [NON-STAFF] -
[2023-10-06 12:42] VITALS: BP 110/64; PULSE 90; RESP 17
--- NOTE | 2023-10-06 13:03 | P.PN ---
Subjective HISTORY OF PRESENT ILLNESS: This is an 78-year-old female patient of Dr. Flores with past medical history of persistent atrial fibrillation/flutter recently taken off Coumadin, known EF of 37%, history of mitral valve repair, nonischemic cardiomyopathy, pulmonary hypertension, hypothyroidism, chronic hypoxic respiratory failure on home O2. Patient was recently hospitalized last week for A-fib atrial flutter with RVR. Dr. Flores discussed anticoagulation with the patient at that time and Coumadin was discontinued and patient was discharged home on September 23. We have been asked to evaluate the patient for heart failure and A-fib with RVR. Patient presented to the emergency center due to shortness of breath wheezing hypoxia and tachycardia. Patient expresses that she cannot remember to take her medications but her is now at bedside and states that she has been taking her medications as directed. Her initial heart rate was in the 130s. Patient has been started on a Cardizem drip and home medications have been resumed. Patient had a nebulizer treatment this morning with improvement of her shortness of breath. Patient is seen today in the emergency center waiting for a bed on the cardiac stepdown unit. EKG atrial fibrillation 126 bpm Chest x-ray: Findings suggest congestive heart failure. Infiltrates of other etiology not excluded. WBC 7.8, hemoglobin 11, platelet count 222. INR 1.1. Electrolytes and renal function normal. Blood sugar 173. Troponin negative x 1. proBNP 5740. Home cardiac medications: Aspirin 81 mg daily, Bumex 1 mg daily, Farxiga 10 mg daily, Lasix 40 mg daily, Lopressor 50 mg twice daily, patient also on levothyroxine 150 mcg daily. Echocardiogram in June 2023 revealed ejection fraction 30-35%, severe pulmonary hypertension, bioprosthetic aortic valve, and mitral valve repair with mild MR Cardiac catheterization history: October 2017 revealing normal coronary arteries Cardioversion 07/05/2022 for atrial flutter with muslim of sinus rhythm Aortic valve replacement 10/13/2017 with Magna Ease bioprosthetic aortic valve, mitral valve repair with [employer] annular flex band, clip ligation of the left atrial appendage. MATTHEW performed 01/30/2018 revealed sutured left atrial appendage, bioprosthetic aortic valve with normal functioning, mitral annuloplasty with mitral valve repair and mild mitral regurgitation. Moderate tricuspid regurgitation. No evidence of shunting across the intra-atrial septum. 10/02 Patient seen and examined. Patient denies any chest pain or pressure. She does continue to have significant shortness breath however may be mildly improved. Heart rates controlled. Creatinine stable 10/03 Repeat blood work reveals hemoglobin 10.5, potassium 3.9, BUN 29 creatinine 0.93. Blood sugar 104/66. Heart rate is controlled in the 60s to 80s. Pulse ox 99% on 2 L nasal cannula. Continue patient has been transition to IV Lasix to Bumex 2 mg daily oral. Echocardiogram from 06/28/2023 in more detail revealed right ventricular EF 30 to 35%. Severe right ventricular dilation. RVSP 50 may be undetermined secondary to low output state. Severe right atrial dilatation, severe left atrial dilatation. Status post mitral valve repair with moderate mitral calcification mild mitral regurgitation. Bioprosthetic aortic valve with no significant aortic regurgitation. Severe torrential tricuspid regurgitation. No pericardial effusion. Patient was previously on Revatio and this was discontinued on her hospitalization September 19 by cardiology. Reviewed with the patient the findings on the echocardiogram. 10/04 Patient has no new concerns today. Her blood pressure was low this morning 85/48 and attending was contacted, Bumex and Lopressor placed on hold. Chemistry panel has not been reported. 10/05 Patient's blood pressure is improved today 108/57, heart rate 88- 124. Patient did receive Lopressor this morning. Patient's nurse plans to give her Bumex shortly. Blood work from yesterday revealed sodium 139, potassium 3.8, BUN 25 creatinine 0.87. 10/06/2023 Patient examined this morning at the bedside. Patient currently denies chest pain or pressure. She denies shortness of breath. Patient's blood pressures are on the lower side with a systolic between 8090. Telemetry reveals atrial fibrillation with controlled ventricular rate. PHYSICAL EXAM: VITAL SIGNS: Reviewed. GENERAL: Well-developed in no acute distress. NECK: Supple. No JVD or thyromegaly LUNGS: Respirations even and unlabored. Lungs essentially clear to auscultation bilaterally. HEART: Irregular rate and rhythm. S1 and S2 heard. Systolic murmur noted EXTREMITIES: Normal range of motion. No clubbing or cyanosis. Peripheral pulse s intact. No lower extremity edema ASSESSMENT: Persistent atrial fibrillation presenting with with RVR, currently rate controlled, not on anticoagulation due to left atrial appendage clipping History of mitral valve repair Nonischemic cardiomyopathy Pulmonary hypertension Hypothyroidism Severe tricuspid regurgitation, severe right atrial dilatation PLAN: Continue current cardiac medications Decrease Bumex to 1 mg daily Continue to monitor blood pressure Patient is stable for discharge home today from a cardiac standpoint Nurse practitioner note has been reviewed by physician. Signing provider agrees with the documented findings, assessment, and plan of care documented by BOOK TRIMMER as a scribe. Objective - Vital Signs Vital signs: Vital Signs Temp 98 F 10/06/23 08:20 Pulse 82 10/06/23 12:03 Resp 17 10/06/23 12:00 BP 110/64 10/06/23 12:00 Pulse Ox 96 10/06/23 12:00 FiO2 Intake & Output 10/05/23 10/06/23 10/06/23 18:59 06:59 18:59 Intake Total 360 180 Output Total 1100 1080 950 Balance -740 -0444 -770 Weight 50.5 kg Intake: Oral 360 180 Output: Urine 1100 1080 950 Other: Voiding Method Indwelling Catheter Indwelling Catheter Indwelling Catheter - Labs CBC & Chem 7: 10/06/23 07:43 10/06/23 07:43 Labs: Abnormal Lab Results - Last 24 Hours (Table) 10/06/23 10/06/23 Range/Units 07:43 07:43 RBC 3.76 L (3.80-5.40) m/uL Hgb 10.9 L (11.4-16.0) gm/dL RDW 15.7 H (11.5-15.5) % Chloride 96 L (98-107) mmol/L Carbon Dioxide 36 H (22-30) mmol/L BUN 20 H (7-17) mg/dL Microbiology - Last 24 Hours (Table) 09/30/23 06:00 Blood Culture - Final Blood
[2023-10-07] MEDS ORDERED: BUMETANIDE 1 MG TAB PO SCH (09:00)
== END 2023-10-06 15:46 | disposition home or self-care (01) | DRG 291 ==
LOC: EC 05:23 → 3SCARD 07:19
PROVIDERS: ADMIT Internal Medicine; ATTEND Internal Medicine
DX: I13.0 Hypertensive heart and chronic kidney disease with heart failure and stage 1 through stage 4 chronic kidney disease, or unspecified chronic kidney disease (principal); I50.23 Acute on chronic systolic (congestive) heart failure; I47.19 Other supraventricular tachycardia; I48.19 Other persistent atrial fibrillation; J96.11 Chronic respiratory failure with hypoxia; I48.92 Unspecified atrial flutter; J44.1 Chronic obstructive pulmonary disease with (acute) exacerbation; N18.9 Chronic kidney disease, unspecified; M06.9 Rheumatoid arthritis, unspecified; K21.9 Gastro-esophageal reflux disease without esophagitis; I42.8 Other cardiomyopathies; I07.1 Rheumatic tricuspid insufficiency; I27.20 Pulmonary hypertension, unspecified; E03.9 Hypothyroidism, unspecified; Z96.642 Presence of left artificial hip joint; Z96.653 Presence of artificial knee joint, bilateral; Z88.8 Allergy status to other drugs, medicaments and biological substances; Z99.81 Dependence on supplemental oxygen; Z95.3 Presence of xenogenic heart valve; Z95.1 Presence of aortocoronary bypass graft; Z91.148 Patient's other noncompliance with medication regimen for other reason; Z87.891 Personal history of nicotine dependence; Z79.899 Other long term (current) drug therapy; Z79.890 Hormone replacement therapy; Z79.84 Long term (current) use of oral hypoglycemic drugs; Z79.82 Long term (current) use of aspirin
CPT/HCPCS: 36415; 71045; 80053; 83605; 83880; 84484; 85025; 85610; 85730; 87040; 93005; 94640; 94760; 96365; 96366; 96372; 96375; 96376; 99285

== ENCOUNTER 2023-10-16 08:20 | Emergency (ER) | payer MEDICARE, OTHER ==
--- NOTE | 2023-10-16 08:37 | ED ---
General Adult HPI - General Chief complaint: Fall Stated complaint: Fall Time Seen by Provider: 10/16/23 08:20 Source: patient, EMS, RN notes reviewed, old records reviewed Mode of arrival: EMS - History of Present Illness Initial comments: This is an 78-year-old female who presents to the emergency department stating that she was on the toilet and she fell asleep and then fell over to her left. Patient states she has had chronic neck pain but the pain is continuing now she is not sure if she reinjured it. Patient states she did hit the side of her head but she does not have a headache and the side of her head is not tender. Patient states she is on warfarin however. Patient also complains of some midthoracic back pain. Patient denies any chest pain or palpitations. Patient denies any symptoms prior to the event. Patient denies any symptoms systemically after the event. Patient denies any abdominal pain. Patient denies any extremity pain. - Related Data Home Medications Medication Instructions Recorded Confirmed Albuterol Sulfate [Proair Hfa] 2 puff INHALATION RT-Q6H PRN 07/28/19 09/30/23 Ascorbic Acid [Vitamin C] 500 mg PO DAILY 05/08/21 09/30/23 Cholecalciferol (Vitamin D3) 125 mcg PO DAILY 06/06/22 09/30/23 [Vitamin D3 (125 MCG = 5,000 IU)] Ipratropium-Albuterol Nebulize 3 ml INHALATION RT-Q6H PRN 06/06/22 09/30/23 [Duoneb 0.5 mg-3 mg/3 ml Soln] Bumetanide [BUMEX] 1 mg PO DAILY 09/30/23 09/30/23 Previous Rx's Medication Instructions Recorded Levothyroxine Sodium [Synthroid] 150 mcg PO AC-BRKFST 30 Days #30 08/27/23 tablet Metoprolol Tartrate [Lopressor] 50 mg PO BID 30 Days #60 tab 08/27/23 HYDROcodone/APAP 10-325MG [[place] 1 tab PO Q8H PRN 3 Days #12 tab 09/14/23 10-325] Aspirin 81 mg PO DAILY tab 09/22/23 Dapagliflozin Propanediol [Farxiga] 10 mg PO DAILY 30 Days #30 tab 09/22/23 Gentamicin 0.3% Ophth Soln 1 drops BOTH EYES Q4HR 5 Days #3 ml 10/06/23 [Garamycin 0.3% Ophth Soln] Allergies Allergy/AdvReac Type Severity Reaction Status Date / Time lisinopril AdvReac Cough Verified 09/30/23 08:02 Review of Systems ROS Statement: Those systems with pertinent positive or pertinent negative responses have been documented in the HPI. ROS Other: All systems not noted in ROS Statement are negative. Past Medical History Past Medical History: Atrial Fibrillation, Heart Failure, COPD, GERD/Reflux, Osteoarthritis (OA), Renal Disease, Rheumatoid Arthritis (RA), Supraventricular Tachycardia (SVT), Thyroid Disorder Additional Past Medical History / Comment(s): Valvular heart disease with previous aortic valve replacement and a mitral valve repair, congestion heart failure, Paroxysmal Afib, history of SVT, history of nonsustained VT, SOB with exertion, home O2 at 2L/NC usually prn but lately ATC, arthritis, RA several joints, current L elbow pain/swelling-had "injection", nephrolithiasis, hypothyroid, diverticular dx, UTI, iron deficiency anemia. 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 History of Any Multi-Drug Resistant Organisms: None Reported Past Surgical History: Coronary Bypass/CABG, Heart Catheterization, Hysterectomy, Joint Replacement, Orthopedic Surgery Additional Past Surgical History / Comment(s): Geoff total knees arthroplasty,lt hip arthroplasty, goiter removed 1962, partial thyroidectomy, cataracts removed with lens implants, REVERSE TOTAL RIGHT SHOULDER; Rotator cuff R shoulder, cervical fusion/injections, colonoscopy 2016(next after 5yr), MATTHEW, valve surgery at [facility] 10/13/17 Prosthetic Aortic valve and mitral valve repair. Total abdominal hysterectomy in the 1980s. Past Anesthesia/Blood Transfusion Reactions: Postoperative Nausea & Vomiting (PONV) Past Psychological History: No Psychological Hx Reported Smoking Status: Former smoker - Past Family History Father Family Medical History: Cancer, Myocardial Infarction (PA) Additional Family Medical History / Comment(s): in his 80's of a mi. Colon cancer. Mother Family Medical History: No Reported History Additional Family Medical History / Comment(s): age 88 . hx smoking. Daughter(s) Family Medical History: Cancer Additional Family Medical History / Comment(s): from vulvar cancer. General Exam - General Exam Comments Initial Comments: GENERAL: Patient is well-developed and well-nourished. Patient is nontoxic and well- hydrated and is in mild distress. ENT: Neck is soft and supple. No significant lymphadenopathy is noted. Oropharynx is clear. Moist mucous membranes. Neck has full range of motion without eliciting any pain. Patient has very minimal tenderness in the left temporal region of the scalp EYES: The sclera were anicteric and conjunctiva were pink and moist. Extraocular movements were intact and pupils were equal round and reactive to light. Eyelids were unremarkable. PULMONARY: Unlabored respirations. Good breath sounds bilaterally. No audible rales rhonchi or wheezing was noted. CARDIOVASCULAR: There is a regular rate and rhythm without any murmurs gallops or rubs. ABDOMEN: Soft and nontender with normal bowel sounds. SKIN: Skin is clear with no lesions or rashes and otherwise unremarkable. NEUROLOGIC: Patient is alert and oriented x3. Cranial nerves II through XII are grossly intact. Motor and sensory are also intact. Normal speech, volume and content. Symmetrical smile. MUSCULOSKELETAL: Normal extremities with adequate strength and full range of motion. No lower extremity swelling or edema. No calf tenderness. LYMPHATICS: No significant lymphadenopathy is noted PSYCHIATRIC: Normal psychiatric evaluation. Course Vital Signs 10/16/23 08:22 Temperature 97.7 F Pulse Rate 111 H Respiratory 20 Rate Blood Pressure 105/78 O2 Sat by Pulse 100 Oximetry Medical Decision Making - Medical Decision Making Was pt. sent in by a medical professional or institution ([facility] [place], [employer], urgent care, hospital, or assisted...) When possible be specific @ -No Did you speak to anyone other than the patient for history (EMS, parent, family, police, friend...)? What history was obtained from this source @ -No Did you review nursing and triage notes (agree or disagree)? Why? @ -I reviewed and agree with nursing and triage notes Were old charts reviewed (outside hosp., previous admission, EMS record, old EKG, old radiological studies, urgent care reports/EKG's, assisted records)? Report findings @ -No old charts were reviewed Differential Diagnosis (chest pain, altered mental status, abdominal pain women, abdominal pain men, vaginal bleeding, weakness, fever, dyspnea, syncope, headache, dizziness, GI bleed, back pain, seizure, CVA, palpatations, mental health, musculoskeletal)? @ -Cervical spine fracture, skull fracture, intraparenchymal hemorrhage, subdural hemorrhage subarachnoid hemorrhage and this is not an all-inclusive list EKG interpreted by me (3pts min.). @ -As above X-rays interpreted by me (1pt min.). @ -X-ray of the thoracic spine shows no acute abnormality CT interpreted by me (1pt min.). @ -CT of the brain shows no acute abnormality CT of the C-spine shows no acute abnormality U/S interpreted by me (1pt. min.). @ -None done What testing was considered but not performed or refused? (CT, X-rays, U/S, labs)? Why? @ -None What meds were considered but not given or refused? Why? @ -None Did you discuss the management of the patient with other professionals (professionals i.e. , PA, [employer], lab, RT, psych nurse, clinical social work therapist, coagulator, teacher, chairman president and chief executive officer, nurse outreach case manager)? Give summary @ -No Was smoking cessation discussed for >3mins.? @ -No Was critical care preformed (if so, how long)? @ -No Were there social determinants of health that impacted care today? How? (Homelessness, low income, unemployed, alcoholism, drug addiction, transportation, low edu. Level, literacy, decrease access to med. care, penitentiary, rehab)? @ -No Was there de-escalation of care discussed even if they declined (Discuss DNR or withdrawal of care, Hospice)? DNR status @ -No What co-morbidities impacted this encounter? (DM, HTN, Smoking, COPD, CAD, Cancer, CVA, ARF, Chemo, Hep., AIDS, mental health diagnosis, sleep apnea, morbid obesity)? @ -None Was patient admitted / discharged? Hospital course, mention meds given and route, prescriptions, significant lab abnormalities, going to OR and other pertinent info. @ -Patient was given Toradol in the emergency department and was feeling better. Patient had a CT of the head and neck and x-ray of the thoracic spine all of which were negative. Undiagnosed new problem with uncertain prognosis? @ -No Drug Therapy requiring intensive monitoring for toxicity (Heparin, Nitro, Insulin, Cardizem)? @ -No Were any procedures done? @ -No Diagnosis/symptom? @ -Cervical strain Acute, or Chronic, or Acute on Chronic? @ -Acute Uncomplicated (without systemic symptoms) or Complicated (systemic symptoms)? @ -Uncomplicated Side effects of treatment? @ -No Exacerbation, Progression, or Severe Exacerbation? @ -No Poses a threat to life or bodily function? How? (Chest pain, [place], PA, pneumonia, PE, COPD, DKA, ARF, appy, cholecystitis, CVA, Diverticulitis, Homicidal, Suicidal, threat to staff... and all critical care pts) @ -No Diagnosis/symptom? @ -Thoracic strain Acute, or Chronic, or Acute on Chronic? @ -Acute Uncomplicated (without systemic symptoms) or Complicated (systemic symptoms)? @ -Uncomplicated Side effects of treatment? @ -None Exacerbation, Progression, or Severe Exacerbation] @ -No Poses a threat to life or bodily function? @ -No Diagnosis/symptom? @ -Minor blunt head trauma on thinners Acute, or Chronic, or Acute on Chronic? @ -Acute Uncomplicated (without systemic symptoms) or Complicated (systemic symptoms)? @ -Complicated Side effects of treatment? @ -None Exacerbation, Progression, or Severe Exacerbation] @ -No Poses a threat to life or bodily function? @ -No Disposition Clinical Impression: Fall, Blunt head trauma, Cervical strain, Thoracic myofascial strain Disposition: HOME SELF-CARE Condition: Good Instructions (If sedation given, give patient instructions): Cervical Strain (ED), Head Injury (ED), Thoracic Back Strain (ED) Is patient prescribed a controlled substance at d/c from ED?: No Referrals: Olya Olson MD [Primary Care Provider] - 1-2 days Time of Disposition: 10:12
--- NOTE | 2023-10-16 09:11 | XR ---
EXAMINATION TYPE: XR thoracic spine complete DATE OF EXAM: 10/16/2023 8:54 AM CLINICAL INDICATION:Female, 78 years old with history of Trauma; COMPARISON: TECHNIQUE: XR thoracic spine complete views of the spine in Frontal and lateral projections. FINDINGS: Atherosclerosis of the arterial vasculature. Aortic valve repair changes. Left atrial appen dage occlusion device. Sternotomy wires are present. Multilevel degeneration changes throughout the s pine with osteophyte formation, disc space narrowing, facet joint arthropathy. No obvious acute fract ure visualized. Surgical changes to the spine and shoulder noted on lateral view. IMPRESSION: 1. No obvious acute process. 2. Severe multilevel degeneration changes of the spine.
[2023-10-16 09:21] VITALS: RESP 20
--- NOTE | 2023-10-16 09:39 | CT ---
EXAMINATION TYPE: CT brain cspine wo con CT DLP: 1282.5 mGycm, Automated exposure control for dose reduction was used. DATE OF EXAM: 10/16/2023 8:55 AM COMPARISON: 06/17/2023. CLINICAL INDICATION:Female, 78 years old with history of Trauma; Trauma, Fall TECHNIQUE: Brain: Multiple axial CT images of the brain were obtained without IV contrast. Cspine: Axial CT images from the skull base to the inferior aspect of T2 we obtained without intraven ous contrast. Coronal and sagittal reformatted images were also reviewed. FINDINGS: Brain: Extra-axial spaces: No abnormal extra-axial fluid collections. Ventricular system: Dilatation in proportion to cerebral atrophy. Cerebral parenchyma: Cerebral atrophy. No acute intraparenchymal hemorrhage or mass effect. The abrams -white junction is well differentiated. Scattered hypoattenuating areas are seen within the white mat ter. Cerebellum: Unremarkable. Mass effect: No evidence of midline shift. Intracranial vasculature: Atherosclerotic calcifications of the intracranial vessels. Soft tissues: Normal. Calvarium/osseous structures: No depressed skull fracture. Paranasal sinuses and mastoid air cells: Clear. Visualized orbits: Bilaterally aphakia. Cervical spine: Fracture: None. Osseous structures: Fixation hardware in the spine appears intact. Multilevel degenerative disc disea se changes with endplate spurring and disc osteophyte complex's. Vertebral alignment: C 67. Spinal canal/Neural Foramina: No evidence of significant spinal canal narrowing. No evidence for sign ificant neural foraminal stenosis. Neck soft tissues: Prevertebral soft tissues are within normal limits. Other: The airway is patent. The lung apices are clear. IMPRESSION: 1. No acute intracranial process. 2. Nonspecific white matter changes, likely secondary to chronic small vessel ischemic disease. 3. No evidence of cervical spine fracture. 4. Moderate to severe multilevel degenerative disc disease. Postsurgical changes to the occiput and posterior upper cervical spine appear intact.
[2023-10-16 10:23] VITALS: BP 125/87; PULSE 53
[2023-10-16] MEDS: KETOROLAC 15 MG/ML 1 ML VIAL IM STA (10:28)
[2023-10-16] MEDS: KETOROLAC 15 MG/ML 1 ML VIAL IVP STA (10:36)
[2023-10-16 10:53] VITALS: TEMP 97.6
== END 2023-10-16 10:53 | disposition home or self-care (01) ==
LOC: EC 08:20
DX: S16.1XXA Strain of muscle, fascia and tendon at neck level, initial encounter (principal); S29.012A Strain of muscle and tendon of back wall of thorax, initial encounter; S09.90XA Unspecified injury of head, initial encounter; I50.9 Heart failure, unspecified; J44.9 Chronic obstructive pulmonary disease, unspecified; I48.91 Unspecified atrial fibrillation; Z79.899 Other long term (current) drug therapy; Z87.891 Personal history of nicotine dependence; Z88.8 Allergy status to other drugs, medicaments and biological substances; Z95.2 Presence of prosthetic heart valve; Z95.1 Presence of aortocoronary bypass graft; W18.30XA Fall on same level, unspecified, initial encounter; Y92.002 Bathroom of unspecified non-institutional (private) residence as the place of occurrence of the external cause
CPT/HCPCS: 72072; 72125; 70450; 99284; 96372; J1885

== ENCOUNTER 2023-10-18 05:59 | Inpatient (IN) | payer MEDICARE, OTHER ==
[2023-10-18] MEDS: ATROPINE SULFATE 0.1 MG/ML 10ML SYRINGE IV STA (06:33)
[2023-10-18 06:50] LABS: Basophils # (A) 0.1 k/uL (0-0.2); Basophils % (A) 1 %; Eosinophils # (A) 0.2 k/uL (0-0.7); Eosinophils % (A) 2 %; HCT 36.4 % (34.0-46.0); Hypochromasia Marked; Lymphocytes # (A) 1.8 k/uL (1.0-4.8); Lymphocytes % (A) 18 %; MCH 27.8 pg (25.0-35.0); MCHC 30.3 g/dL (31.0-37.0); MCV 91.6 fL (80.0-100.0); Mean Platelet Volume 8.8; Monocytes # (A) 0.4 k/uL (0-1.0); Monocytes % (A) 4 %; Neutrophils # (A) 7.5 k/uL (1.3-7.7); Neutrophils % (A) 72 %; Platelet Count 280 k/uL (150-450); RBC 3.98 m/uL (3.80-5.40); RDW 15.7 % (11.5-15.5); WBC 10.5 k/uL (3.8-10.6)
[2023-10-18] MEDS: IPRATROPIUM-ALBUTEROL 3 ML NEB INHALATION STA (06:52)
--- NOTE | 2023-10-18 06:52 | XR ---
EXAMINATION TYPE: XR chest 1V portable DATE OF EXAM: 10/18/2023 COMPARISON: Prior chest x-ray October 03, 2023 HISTORY: Difficulty in breathing. TECHNIQUE: Single frontal view of the chest is obtained. FINDINGS: Osseous structures are demineralized. Surgical change to right shoulder is partially image d similar to prior. Overlying sternal wires along with left atrial appendage clip are redemonstrated. Persistent cardiomegaly with increasing central vascular congestion and worsening bibasilar opacitie s. IMPRESSION: Findings consistent with CHF exacerbation/fluid overload state are redemonstrated and mo re prominent from most recent study.
[2023-10-18 07:01] LABS: ALT 18 U/L (4-34); AST 34 U/L (14-36); African American GFR (CKD) 87 (>60 ml/min/1.73 sqM); Albumin 3.6 g/dL (3.5-5.0); Alkaline Phosphatase 130 U/L (38-126); Anion Gap 12 mmol/L; Blood Urea Nitrogen 19 mg/dL (7-17); Calcium 8.6 mg/dL (8.4-10.2); Carbon Dioxide 20 mmol/L (22-30); Chloride 106 mmol/L (98-107); Glucose 210 mg/dL (74-99); INR 1.1 (<1.2); Non-African American GFR(CKD) 76 (>60 ml/min/1.73 sqM); Partial Thromboplastin Time 23.1 sec (22.0-30.0); Potassium 4.5 mmol/L (3.5-5.1); Prothrombin Time 11.8 sec (10.0-12.5); Sodium 138 mmol/L (137-145); Total Bilirubin 1.1 mg/dL (0.2-1.3); Total Protein 6.8 g/dL (6.3-8.2)
[2023-10-18 07:09] LABS: NT-Pro-B-Type Natriuretic Pept 5680 pg/mL
--- NOTE | 2023-10-18 07:13 | ED ---
General Adult HPI - General Source: patient, EMS, RN notes reviewed, old records reviewed Mode of arrival: EMS Limitations: no limitations <Bebeto Castro - Last Filed: 10/18/23 07:09> <Adam Freire - Last Filed: 10/18/23 09:04> - General Chief complaint: Shortness of Breath Stated complaint: DANIEL Time Seen by Provider: 10/18/23 06:21 - History of Present Illness Initial comments: Patient is an 78-year-old female who presents emergency department complaining of shortness of breath. Presents to the emergency department complaining of dyspnea. Is a chronic issue for her. Is at baseline 3 L nasal cannula at home and is known to be noncompliant with medications. She denies any chest pain. Denies any abdominal pain, nausea, vomiting. Has a history of A-fib. Has no other acute complaints at this time. Endorses lower extremity edema. Denies any fevers, chills. Presents for further evaluation. (Bebeto Castro) - Related Data Home Medications Medication Instructions Recorded Confirmed Albuterol Sulfate [Proair Hfa] 2 puff INHALATION RT-Q6H PRN 07/28/19 09/30/23 Ascorbic Acid [Vitamin C] 500 mg PO DAILY 05/08/21 09/30/23 Cholecalciferol (Vitamin D3) 125 mcg PO DAILY 06/06/22 09/30/23 [Vitamin D3 (125 MCG = 5,000 IU)] Ipratropium-Albuterol Nebulize 3 ml INHALATION RT-Q6H PRN 06/06/22 09/30/23 [Duoneb 0.5 mg-3 mg/3 ml Soln] Bumetanide [BUMEX] 1 mg PO DAILY 09/30/23 09/30/23 Previous Rx's Medication Instructions Recorded Levothyroxine Sodium [Synthroid] 150 mcg PO AC-BRKFST 30 Days #30 08/27/23 tablet Metoprolol Tartrate [Lopressor] 50 mg PO BID 30 Days #60 tab 08/27/23 HYDROcodone/APAP 10-325MG [Bomoseen 1 tab PO Q8H PRN 3 Days #12 tab 09/14/23 10-325] Aspirin 81 mg PO DAILY tab 09/22/23 Dapagliflozin Propanediol [Farxiga] 10 mg PO DAILY 30 Days #30 tab 09/22/23 Gentamicin 0.3% Ophth Soln 1 drops BOTH EYES Q4HR 5 Days #3 ml 10/06/23 [Garamycin 0.3% Ophth Soln] Allergies Allergy/AdvReac Type Severity Reaction Status Date / Time lisinopril AdvReac Cough Verified 09/30/23 08:02 Review of Systems ROS Other: All systems not noted in ROS Statement are negative. <Bebeto Castro - Last Filed: 10/18/23 07:09> ROS Other: All systems not noted in ROS Statement are negative. <Adam Freire - Last Filed: 10/18/23 09:04> ROS Statement: Those systems with pertinent positive or pertinent negative responses have been documented in the HPI. Review of Systems: CONST: Denies fever EYES: Denies blurry vision ENT: Denies nasal congestion C/V: Denies Chest pain RESP: Endorses shortness of breath GI: Denies abdominal pain : Denies dysuria SKIN: Denies rash. MSK: Denies joint pain. NEURO: Denies headache (Bebeto Castro) Past Medical History Past Medical History: Atrial Fibrillation, Heart Failure, COPD, GERD/Reflux, Osteoarthritis (OA), Renal Disease, Rheumatoid Arthritis (RA), Supraventricular Tachycardia (SVT), Thyroid Disorder Additional Past Medical History / Comment(s): Valvular heart disease with prev ious aortic valve replacement and a mitral valve repair, congestion heart failure, Paroxysmal Afib, history of SVT, history of nonsustained VT, SOB with exertion, home O2 at 2L/NC usually prn but lately ATC, arthritis, RA several joints, current L elbow pain/swelling-had "injection", nephrolithiasis, hypothyroid, diverticular dx, UTI, iron deficiency anemia. 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 History of Any Multi-Drug Resistant Organisms: None Reported Past Surgical History: Coronary Bypass/CABG, Heart Catheterization, Hysterectomy, Joint Replacement, Orthopedic Surgery Additional Past Surgical History / Comment(s): Geoff total knees arthroplasty,lt hip arthroplasty, goiter removed 1962, partial thyroidectomy, cataracts removed with lens implants, REVERSE TOTAL RIGHT SHOULDER; Rotator cuff R shoulder, ce rvical fusion/injections, colonoscopy 2017(next after 5yr), MATTHEW, valve surgery at [facility] 10/13/17 Prosthetic Aortic valve and mitral valve repair. Total abdominal hysterectomy in the 1980s. Past Anesthesia/Blood Transfusion Reactions: Postoperative Nausea & Vomiting (PONV) Past Psychological History: No Psychological Hx Reported Smoking Status: Former smoker - Past Family History Father Family Medical History: Cancer, Myocardial Infarction ([place]) Additional Family Medical History / Comment(s): in his 80's of a mi. Colon cancer. Mother Family Medical History: No Reported History Additional Family Medical History / Comment(s): age 88 . hx smoking. Daughter(s) Family Medical History: Cancer Additional Family Medical History / Comment(s): from vulvar cancer. <Bebeto Castro - Last Filed: 10/18/23 07:09> General Exam Limitations: no limitations <Bebeto Castro - Last Filed: 10/18/23 07:09> - General Exam Comments Initial Comments: General: Appears in no acute distress. HEAD: Normal with no signs of head trauma. EYES: PERRLA, EOMI, conjunctiva normal, no discharge. ENT: Hearing grossly intact, normal oropharynx. RESPIRATORY: Coarse breath sounds bilaterally. C/V: Regular rate and rhythm. S1 and S2 auscultated, bilateral lower extremity peripheral edema., peripheral pulses 2+ and intact throughout ABD: Abd is soft, nontender, nondistended EXT: Normal range of motion, no obvious deformity SKIN: No rashes or lesions observed on exposed skin. NEURO: Alert and oriented x 4. (Bebeto Castro) Course Vital Signs 10/18/23 10/18/23 10/18/23 06:02 06:08 06:11 Pulse Rate 86 86 Respiratory 24 31 H Rate Blood Pressure 130/95 O2 Sat by Pulse 100 100 Oximetry 10/18/23 10/18/23 10/18/23 06:49 06:53 07:03 Pulse Rate 98 82 89 Respiratory 18 Rate Blood Pressure 104/78 O2 Sat by Pulse 93 L Oximetry 10/18/23 10/18/23 07:56 08:44 Pulse Rate 91 97 Respiratory 18 34 H Rate Blood Pressure 104/63 86/63 O2 Sat by Pulse 99 100 Oximetry Medical Decision Making - Lab Data Result diagrams: 10/18/23 06:30 10/18/23 06:30 - EKG Data -: EKG Interpreted by Ms <Bebeto Castro - Last Filed: 10/18/23 07:09> - Lab Data Result diagrams: 10/18/23 06:30 10/18/23 06:30 <Adam Freire - Last Filed: 10/18/23 09:04> - Medical Decision Making Was pt. sent in by a medical professional or institution (, DOC, DIAGNOSTICS SALES DEVELOPER, urgent care, hospital, or retirement...) When possible be specific @ -No Did you speak to anyone other than the patient for history (EMS, parent, family, police, friend...)? What history was obtained from this source @ -No Did you review nursing and triage notes (agree or disagree)? Why? @ -I reviewed and agree with nursing and triage notes Were old charts reviewed (outside hosp., previous admission, EMS record, old EKG, old radiological studies, urgent care reports/EKG's, retirement records)? Report findings @ -Old charts reviewed Differential Diagnosis (chest pain, altered mental status, abdominal pain women, abdominal pain men, vaginal bleeding, weakness, fever, dyspnea, syncope, headache, dizziness, GI bleed, back pain, seizure, CVA, palpatations, mental health, musculoskeletal)? @ -Differential Dyspnea: Coronary syndrome, arrhythmia, tamponade, asthma, COPD, pulmonary embolism, pneumonia, pneumothorax, pulmonary effusion, anaphylaxis, diabetic ketoacidosis, flailed chest, pulmonary contusion, diaphragmatic rupture, anemia, neuromuscular, this is not meant to be an all-inclusive list. EKG interpreted by me (3pts min.). @ -As above X-rays interpreted by me (1pt min.). @ -Chest x-ray shows bilateral pulmonary vascular congestion. CT interpreted by me (1pt min.). @ -None done U/S interpreted by me (1pt. min.). @ -None done What testing was considered but not performed or refused? (CT, X-rays, U/S, labs)? Why? @ -None What meds were considered but not given or refused? Why? @ -None Did you discuss the management of the patient with other professionals (professionals i.e. DOC [place], DIAGNOSTICS SALES DEVELOPER, lab, RT, psych nurse, social media assistant, hide or skin buffer, teacher, u.s. revenue officer, senior case manager)? Give summary @ -No Was smoking cessation discussed for >3mins.? @ -No Was critical care preformed (if so, how long)? @ -No Were there social determinants of health that impacted care today? How? (Homelessness, low income, unemployed, alcoholism, drug addiction, tra nsportation, low edu. Level, literacy, decrease access to med. care, nursing home, rehab)? @ -No Was there de-escalation of care discussed even if they declined (Discuss DNR or withdrawal of care, Hospice)? DNR status @ -No What co-morbidities impacted this encounter? (DM, HTN, Smoking, COPD, CAD, Cancer, CVA, ARF, Chemo, Hep., AIDS, mental health diagnosis, sleep apnea, morbid obesity)? @ -A-fib, COPD, CHF Was patient admitted / discharged? Hospital course, mention meds given and route, prescriptions, significant lab abnormalities, going to OR and other pertinent info. @ -Based on the patient's presentation and physical exam, presents with acute on chronic dyspnea. Vital vital signs initially within acceptable limits except for intermittent RVR with her A-fib. She was placed in room 24. However patient did have 2 episodes of bradycardia into the 20s. I gave her a dose of atropine and she was placed in trauma bay 1. Apparently this has happened in the past per patient. Patient did not have further episodes while I was here. Vital signs are within acceptable limits. EKG showed A-fib with RVR. Chest x-ray shows bilateral pulmonary vascular congestion. Workup is still pending at this time. Patient signed out to Dr. Freire pending results of workup. Undiagnosed new problem with uncertain prognosis? @ -No Drug Therapy requiring intensive monitoring for toxicity (Heparin, Nitro, Insulin, Cardizem)? @ -No Were any procedures done? @ -No (Bebeto Castro) Chest x-ray shows CHF. Previous chest x-ray reviewed showing CHF as well however not as severe Case was discussed in detail with Dr. Olson who is familiar with this patient and will admit. Patient will be admitted. Cardiology will be placed on consult. Patient did have an episode of bradycardia into the 20s lasting at least 12 seconds. Rhythm strip placed on the chart. Diagnosis: CHF Acute (Adam Freire) - Lab Data Lab Results 10/18/23 10/18/23 10/18/23 Range/Units 06:30 06:30 06:30 WBC 10.5 (3.8-10.6) k/uL RBC 3.98 (3.80-5.40) m/uL Hgb 11.0 L (11.4-16.0) gm/dL Hct 36.4 (34.0-46.0) % MCV 91.6 (80.0-100.0) fL MCH 27.8 (25.0-35.0) pg MCHC 30.3 L (31.0-37.0) g/dL RDW 15.7 H (11.5-15.5) % Plt Count 280 (150-450) k/uL MPV 8.8 Neutrophils % 72 % Lymphocytes % 18 % Monocytes % 4 % Eosinophils % 2 % Basophils % 1 % Neutrophils # 7.5 (1.3-7.7) k/uL Lymphocytes # 1.8 (1.0-4.8) k/uL Monocytes # 0.4 (0-1.0) k/uL Eosinophils # 0.2 (0-0.7) k/uL Basophils # 0.1 (0-0.2) k/uL Hypochromasia Marked PT 11.8 (10.0-12.5) sec INR 1.1 (<1.2) APTT 23.1 (22.0-30.0) sec Sodium 138 (137-145) mmol/L Potassium 4.5 (3.5-5.1) mmol/L Chloride 106 (98-107) mmol/L Carbon Dioxide 20 L (22-30) mmol/L Anion Gap 12 mmol/L BUN 19 H (7-17) mg/dL Creatinine 0.75 (0.52-1.04) mg/dL Est GFR (CKD-EPI)AfAm 87 (>60 ml/min/1.73 sqM) Est GFR (CKD-EPI)NonAf 76 (>60 ml/min/1.73 sqM) Glucose 210 H (74-99) mg/dL Calcium 8.6 (8.4-10.2) mg/dL Magnesium 2.0 (1.6-2.3) mg/dL Total Bilirubin 1.1 (0.2-1.3) mg/dL AST 34 (14-36) U/L ALT 18 (4-34) U/L Alkaline Phosphatase 130 H (38-126) U/L Troponin I (0.000-0.034) ng/mL NT-Pro-B Natriuret Pep 5680 pg/mL Total Protein 6.8 (6.3-8.2) g/dL Albumin 3.6 (3.5-5.0) g/dL 10/18/23 Range/Units 06:30 WBC (3.8-10.6) k/uL RBC (3.80-5.40) m/uL Hgb (11.4-16.0) gm/dL Hct (34.0-46.0) % MCV (80.0-100.0) fL MCH (25.0-35.0) pg MCHC (31.0-37.0) g/dL RDW (11.5-15.5) % Plt Count (150-450) k/uL MPV Neutrophils % % Lymphocytes % % Monocytes % % Eosinophils % % Basophils % % Neutrophils # (1.3-7.7) k/uL Lymphocytes # (1.0-4.8) k/uL Monocytes # (0-1.0) k/uL Eosinophils # (0-0.7) k/uL Basophils # (0-0.2) k/uL Hypochromasia PT (10.0-12.5) sec INR (<1.2) APTT (22.0-30.0) sec Sodium (137-145) mmol/L Potassium (3.5-5.1) mmol/L Chloride (98-107) mmol/L Carbon Dioxide (22-30) mmol/L Anion Gap mmol/L BUN (7-17) mg/dL Creatinine (0.52-1.04) mg/dL Est GFR (CKD-EPI)AfAm (>60 ml/min/1.73 sqM) Est GFR (CKD-EPI)NonAf (>60 ml/min/1.73 sqM) Glucose (74-99) mg/dL Calcium (8.4-10.2) mg/dL Magnesium (1.6-2.3) mg/dL Total Bilirubin (0.2-1.3) mg/dL AST (14-36) U/L ALT (4-34) U/L Alkaline Phosphatase (38-126) U/L Troponin I <0.012 (0.000-0.034) ng/mL NT-Pro-B Natriuret Pep pg/mL Total Protein (6.3-8.2) g/dL Albumin (3.5-5.0) g/dL - EKG Data EKG Comments: 12-lead Electrocardiogram Interpretation Note EKG was reviewed and interpreted by myself. 12-lead ECG performed at 0551 is interpreted by me as revealing A-fib with RVR at a rate of 119 beats per minute. Robards is normal. QRS duration is 112 ms, QTc is 402 ms.. There were no ST or T wave abnormalities to suggest myocardial ischemia or injury. R wave progression across the precordium was satisfactory. By my interpretation this EKG is non- diagnostic for acute ischemia. (Bebeto Castro) Disposition <Bebeto Castro - Last Filed: 10/18/23 07:09> Is patient prescribed a controlled substance at d/c from ED?: No Time of Disposition: 09:04 <Adam Freire - Last Filed: 10/18/23 09:04> Clinical Impression: CHF (congestive heart failure), Bradycardia Disposition: ADMITTED IP TO THIS HOSP Referrals: Olya Olson MD [Primary Care Provider] - 1-2 days
[2023-10-18] MEDS: NITROGLYCERIN OINT 1 INCH/GM PACKET TOPICAL SCH (09:39)
[2023-10-18] MEDS: ASPIRIN 325 MG TAB PO STA (09:40)
[2023-10-18] MEDS: FUROSEMIDE 10 MG/ML 4 ML VIAL IV SCH (09:41)
[2023-10-18] MEDS ORDERED: HYDROcodone/APAP 10-325MG 1 EACH TAB PO PRN (13:15)
[2023-10-18] MEDS ORDERED: ALBUTEROL HFA INHALER INHALATION PRN (13:15)
--- NOTE | 2023-10-18 13:25 | P.HPIM ---
History of Present Illness H&P Date: 10/18/23 Mirella San, is an 78-year-old female who presented to [facility] emergency room with a chief complaint of worsening shortness of breath She was evaluated in the emergency room vital examination on presentation revealed temperature of 98 pulse 86 respiration 24 blood pressure 130/95 pulse ox 100% on 5 L nasal cannula Laboratory data revealed a white blood count of 10.5 hemoglobin 11.0 platelet count 280 BUN 19 creatinine 0.75 troponin 0.012 BNP 5680 Testing in the emergency room revealed chest x-ray done in the emergency room revealed findings consistent with congestive heart failure exacerbation with fluid overload, EKG done in the emergency room revealed atrial flutter with rapid ventricular response with a heart rate of 119 Patient was admitted to medical floor for further evaluation and treatment, cardiology consultation was requested Past Medical History Past Medical History: Atrial Fibrillation, Heart Failure, COPD, GERD/Reflux, Osteoarthritis (OA), Renal Disease, Rheumatoid Arthritis (RA), Supraventricular Tachycardia (SVT), Thyroid Disorder Additional Past Medical History / Comment(s): Valvular heart disease with previous aortic valve replacement and a mitral valve repair, congestion heart failure, Paroxysmal Afib, history of SVT, history of nonsustained VT, SOB with exertion, home O2 at 2L/NC usually prn but lately ATC, arthritis, RA several joints, current L elbow pain/swelling-had "injection", nephrolithiasis, hypothyroid, diverticular dx, UTI, iron deficiency anemia. 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 History of Any Multi-Drug Resistant Organisms: None Reported Past Surgical History: Coronary Bypass/CABG, Heart Catheterization, Hysterectomy, Joint Replacement, Orthopedic Surgery Additional Past Surgical History / Comment(s): Geoff total knees arthroplasty,lt hip arthroplasty, goiter removed 1962, partial thyroidectomy, cataracts removed with lens implants, REVERSE TOTAL RIGHT SHOULDER; Rotator cuff R shoulder, cervical fusion/injections, colonoscopy 2016(next after 5yr), MATTHEW, valve surgery at [facility] 10/13/17 Prosthetic Aortic valve and mitral valve repair. Total abdominal hysterectomy in the 1980s. Past Anesthesia/Blood Transfusion Reactions: Postoperative Nausea & Vomiting (PONV) Past Psychological History: No Psychological Hx Reported Smoking Status: Former smoker - Past Family History Father Family Medical History: Cancer, Myocardial Infarction ([place]) Additional Family Medical History / Comment(s): in his 80's of a mi. Colon cancer. Mother Family Medical History: No Reported History Additional Family Medical History / Comment(s): age 88 . hx smoking. Daughter(s) Family Medical History: Cancer Additional Family Medical History / Comment(s): from vulvar cancer. Medications and Allergies Home Medications Medication Instructions Recorded Confirmed Type Albuterol Sulfate [Proair Hfa] 2 puff INHALATION RT-Q6H PRN 07/28/19 10/18/23 History Ascorbic Acid [Vitamin C] 500 mg PO DAILY 05/08/21 10/18/23 History Cholecalciferol (Vitamin D3) 125 mcg PO DAILY 06/06/22 10/18/23 History [Vitamin D3 (125 MCG = 5,000 IU)] Ipratropium-Albuterol Nebulize 3 ml INHALATION RT-Q6H PRN 06/06/22 10/18/23 History [Duoneb 0.5 mg-3 mg/3 ml Soln] Levothyroxine Sodium [Synthroid] 150 mcg PO AC-BRKFST 30 Days #30 08/27/23 10/18/23 Rx tablet Metoprolol Tartrate [Lopressor] 50 mg PO BID 30 Days #60 tab 08/27/23 10/18/23 Rx HYDROcodone/APAP 10-325MG [Hertel 1 tab PO Q8H PRN 3 Days #12 tab 09/14/23 10/18/23 Rx 10-325] Aspirin 81 mg PO DAILY tab 09/22/23 10/18/23 Rx Dapagliflozin Propanediol [Farxiga] 10 mg PO DAILY 30 Days #30 tab 09/22/23 10/18/23 Rx Bumetanide [BUMEX] 1 mg PO DAILY 09/30/23 10/18/23 History Gentamicin 0.3% Ophth Soln 1 drops BOTH EYES Q4HR 5 Days #3 ml 10/06/23 10/18/23 Rx [Garamycin 0.3% Ophth Soln] Allergies Allergy/AdvReac Type Severity Reaction Status Date / Time lisinopril AdvReac Cough Verified 09/30/23 08:02 Physical Exam Vitals: Vital Signs Pulse Resp BP Pulse Ox 10/18/23 10:12 84 20 97 10/18/23 08:44 97 34 H 86/63 100 10/18/23 07:56 91 18 104/63 99 10/18/23 07:03 89 10/18/23 06:53 82 10/18/23 06:49 98 18 104/78 93 L 10/18/23 06:11 86 100 10/18/23 06:08 31 H 10/18/23 06:02 86 24 130/95 100 Intake and Output 10/17/23 10/18/23 10/18/23 22:59 06:59 14:59 Other: Weight 46.72 kg In general patient is alert and oriented x 3 in no distress HEENT head normocephalic and atraumatic Neck is supple no JVD no goiter no lymphadenopathy no carotid bruit Chest examination reveals a scattered crackles bilaterally no wheezing Cardiac exam reveals irregular heart sounds S1 and S2 no gallops with 3/6 systolic murmur in the left sternal border Abdomen is soft nontender no organomegaly with normal bowel sounds Extremity exam reveals no edema no cyanosis or clubbing Neurological examination reveals no gross focal deficits Results CBC & Chem 7: 10/18/23 06:30 10/18/23 06:30 Labs: Abnormal Lab Results - Last 24 Hours (Table) 10/18/23 10/18/23 Range/Units 06:30 06:30 Hgb 11.0 L (11.4-16.0) gm/dL MCHC 30.3 L (31.0-37.0) g/dL RDW 15.7 H (11.5-15.5) % Carbon Dioxide 20 L (22-30) mmol/L BUN 19 H (7-17) mg/dL Glucose 210 H (74-99) mg/dL Alkaline Phosphatase 130 H (38-126) U/L Assessment and Plan Plan: Acute due to exacerbation of systolic congestive heart failure Atrial flutter with rapid ventricular response, heart rate came down without requiring Cardizem drip will monitor closely, anticoagulation was discontinued by cardiology on previous admission. Underlying history of nonischemic cardiomyopathy Underlying history of valvular heart disease with previous history of mitral valve repair, and history of aortic valve replacement Underlying history of pulmonary hypertension Underlying history of hypothyroidism Underlying history of chronic persistent atrial fibrillation Underlying history of coronary artery disease with previous history of coronary artery bypass graft surgery Underlying history of osteoarthritis with history of bilateral knee arthroplasty and left hip arthroplasty Previous history of goiter with history of partial thyroidectomy At this time patient was seen and examined in the emergency room She will be admitted to telemetry floor She was started on IV Lasix Home medications reviewed and reordered Cardiology consultation was requested Will follow closely
[2023-10-18 16:07] LABS: Appearance,Urine Cloudy (Clear); Bacteria,Urine Moderate /hpf; Bilirubin,Urine Negative (Negative); Blood,Urine Negative (Negative); Color,Urine Colorless; Glucose,Urine (UA) Negative (Negative); Ketones,Urine Negative (Negative); Leukocyte Esterase,Urine Negative (Negative); Nitrite,Urine Positive (Negative); PH, Urine 6.5 (5.0-8.0); Protein,Urine Negative (Negative); RBC,Urine 1 /hpf (0-5); Specific Gravity,Urine 1.008 (1.001-1.035); Squamous Epithelial Cell,Urine 7 /hpf (0-4); Urobilinogen,Urine <2.0 mg/dL (<2.0); WBC,Urine 2 /hpf (0-5)
[2023-10-18] MEDS: ENOXAPARIN 40 MG/0.4 ML SYRINGE SQ SCH (16:50)
[2023-10-18] MEDS: ASPIRIN 81 MG PO SCH (16:50)
[2023-10-18] MEDS: METOPROLOL TARTRATE 50 MG TAB PO SCH (20:00)
[2023-10-19] MEDS: LEVOTHYROXINE 75 MCG TAB PO SCH (06:45)
[2023-10-19] MEDS: ASPIRIN 325 MG TAB PO SCH (09:39)
[2023-10-19] MEDS: CHOLECALCIFEROL 125 MCG (5000 IU) TABLET PO SCH (09:52)
[2023-10-19] MEDS: DAPAGLIFLOZIN PROPANEDIOL 10 MG TABLET PO SCH (09:52)
[2023-10-19] MEDS: ASCORBIC ACID 500 MG TAB PO SCH (09:52)
--- NOTE | 2023-10-19 11:27 | P.CRDCN ---
History of Present Illness Consult date: 10/19/23 History of present illness: Consult date: 09/30/23 History of present illness: History of present illness: This is an 78-year-old female patient of Dr. Flores with past medical history of persistent atrial fibrillation/flutter recently taken off Coumadin, known EF of 37%, history of mitral valve repair, nonischemic cardiomyopathy, pulmonary hypertension, hypothyroidism, chronic hypoxic respiratory failure on home O2. Patient has had multiple hospitalizations for A-fib with RVR. She was recently discharged from the hospital on October 06 and has not had follow-up in the office with Dr. Flores yet. We have been asked to evaluate the patient for CHF and bradycardia. Patient apparently had a heart rate in the 40s while in the emergency center received atropine x 1. Heart rate is now running in the 80s. Patient denies any new concerns today. EKG atrial fibrillation 119 bpm Chest x-ray: Findings consistent with congestive heart failure exacerbation or fluid overload state. WBC 10.5, hemoglobin 11, platelet count 280. Sodium 138, potassium 4.5, BUN 19 creatinine 0.75. Blood sugar 210. Troponin negative x 3. Alkaline phosphatase 130 otherwise all liver function tests are within normal limits. Magnesium 2. proBNP 5680. Home cardiac medications: Aspirin 81 mg daily, Bumex 1 mg daily, Farxiga 10 mg daily, Lopressor 50 mg twice daily, patient also on levothyroxine 150 mcg daily. Echocardiogram in June 2023 revealed ejection fraction 30-35%, severe pulmonary hypertension, bioprosthetic aortic valve, and mitral valve repair with mild MR Cardiac catheterization history: October 2017 revealing normal coronary arteries Cardioversion 07/05/2022 for atrial flutter with yazidi of sinus rhythm Aortic valve replacement 10/13/2017 with Magna Ease bioprosthetic aortic valve, mitral valve repair with [employer] annular flex band, clip ligation of the left atrial appendage. MATTHEW performed 01/30/2018 revealed sutured left atrial appendage, bioprosthetic aortic valve with normal functioning, mitral annuloplasty with mitral valve repair and mild mitral regurgitation. Moderate tricuspid regurgitation. No evidence of shunting across the intra-atrial septum. Review Of Systems: At the time of my exam: CONSTITUTIONAL: Denies fever or chills. CARDIOVASCULAR: Denies chest pain, denies shortness of breath, no orthopnea, no PND or reports palpitations. RESPIRATORY: Denies cough. GASTROINTESTINAL: Denies abdominal pain, diarrhea, constipation, nausea or vomiting. MUSCULOSKELETAL: Denies myalgias. NEUROLOGIC: Denies numbness, tingling or weakness. ENDOCRINE: Denies fatigue, weight change, polydipsia or polyurina. GENITOURINARY: Denies burning, hematuria or urgency with micturation. HEMATOLOGIC: Denies history of anemia or bleeding. Physical examination: Gen: This is an 78-year-old female resting in bed and appears to be in no acute distress. VS: reviewed HEENT: Head is atraumatic, normocephalic. Pupils equal, round. Sclerae is anicteric. NECK: Supple. No JVD. LUNGS: Bilateral wheezing and crackles. No intercostal retractions. HEART: Irregular rate and rhythm. No murmur. ABDOMEN: Soft No tenderness. EXTREMITIES: Mild pedal edema. No calf tenderness. NEUROLOGICAL: Patient is awake, alert. Assessment: Persistent atrial fibrillation presenting with bradycardia status post 1 dose of atropine Acute systolic heart failure Mitral valve repair Nonischemic cardiomyopathy Pulmonary hypertension Hypothyroidism Chronic hypoxic respiratory failure on home O2 Plan: Resume patient's home cardiac medications Continue IV Lasix 40 mg every 8 hours Monitor JASVIR, daily weights, electrolytes and renal function No need to repeat echocardiogram Further recommendations as patient progresses. Thank you kindly for this consultation. Nurse practitioner note has been reviewed, I agree with documented findings and plan of care. Patient was seen and examined. Past Medical History Past Medical History: Atrial Fibrillation, Heart Failure, COPD, GERD/Reflux, Osteoarthritis (OA), Renal Disease, Rheumatoid Arthritis (RA), Supraventricular Tachycardia (SVT), Thyroid Disorder Additional Past Medical History / Comment(s): Valvular heart disease with previous aortic valve replacement and a mitral valve repair, congestion heart failure, Paroxysmal Afib, history of SVT, history of nonsustained VT, SOB with exertion, home O2 at 2L/NC usually prn but lately ATC, arthritis, RA several joints, current L elbow pain/swelling-had "injection", nephrolithiasis, hypothyroid, diverticular dx, UTI, iron deficiency anemia. 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 History of Any Multi-Drug Resistant Organisms: None Reported Past Surgical History: Coronary Bypass/CABG, Heart Catheterization, Hysterectomy, Joint Replacement, Orthopedic Surgery Additional Past Surgical History / Comment(s): Geoff total knees arthroplasty,lt hip arthroplasty, goiter removed 1962, partial thyroidectomy, cataracts removed with lens implants, REVERSE TOTAL RIGHT SHOULDER; Rotator cuff R shoulder, cervical fusion/injections, colonoscopy 2017(next after 5yr), MATTHEW, valve surgery at [facility] 10/13/17 Prosthetic Aortic valve and mitral valve repair. Total abdominal hysterectomy in the 1980s. Past Anesthesia/Blood Transfusion Reactions: Postoperative Nausea & Vomiting (PONV) Past Psychological History: No Psychological Hx Reported Smoking Status: Former smoker - Past Family History Father Family Medical History: Cancer, Myocardial Infarction ([place]) Additional Family Medical History / Comment(s): in his 80's of a mi. Colon cancer. Mother Family Medical History: No Reported History Additional Family Medical History / Comment(s): age 88 . hx smoking. Daughter(s) Family Medical History: Cancer Additional Family Medical History / Comment(s): from vulvar cancer. Medications and Allergies Home Medications Medication Instructions Recorded Confirmed Type Albuterol Sulfate [Proair Hfa] 2 puff INHALATION RT-Q6H PRN 07/28/19 10/18/23 History Ascorbic Acid [Vitamin C] 500 mg PO DAILY 05/08/21 10/18/23 History Cholecalciferol (Vitamin D3) 125 mcg PO DAILY 06/06/22 10/18/23 History [Vitamin D3 (125 MCG = 5,000 IU)] Ipratropium-Albuterol Nebulize 3 ml INHALATION RT-Q6H PRN 06/06/22 10/18/23 History [Duoneb 0.5 mg-3 mg/3 ml Soln] Levothyroxine Sodium [Synthroid] 150 mcg PO AC-BRKFST 30 Days #30 08/27/2310/18 Rx tablet Metoprolol Tartrate [Lopressor] 50 mg PO BID 30 Days #60 tab 08/27/23 10/18/23 Rx HYDROcodone/APAP 10-325MG [[place] 1 tab PO Q8H PRN 3 Days #12 tab 09/14/23 10/18/23 Rx 10-325] Aspirin 81 mg PO DAILY tab 09/22/23 10/18/23 Rx Dapagliflozin Propanediol [Farxiga] 10 mg PO DAILY 30 Days #30 tab 09/22/23 10/18/23 Rx Bumetanide [BUMEX] 1 mg PO DAILY 09/30/23 10/18/23 History Gentamicin 0.3% Ophth Soln 1 drops BOTH EYES Q4HR 5 Days #3 ml 10/06/23 10/18/23 Rx [Garamycin 0.3% Ophth Soln] Allergies Allergy/AdvReac Type Severity Reaction Status Date / Time lisinopril AdvReac Cough Verified 09/30/23 08:02 Physical Exam Vitals: Vital Signs Temp Pulse Pulse Resp BP BP Pulse Ox 10/19/23 04:00 97.9 F 77 16 126/65 96 10/19/23 02:00 18 10/19/23 00:00 63 18 92/57 98 10/18/23 20:00 18 10/18/23 19:58 98 F 81 18 94/64 95 10/18/23 16:00 98.2 F 95 19 116/50 96 10/18/23 14:00 95 19 10/18/23 12:15 97.2 F L 104 H 20 112/63 97 10/18/23 11:39 92 18 96/61 96 10/18/23 10:12 84 20 97 Intake and Output 10/18/23 10/19/23 10/19/23 22:59 06:59 14:59 Intake Total 240 240 Output Total 800 700 Balance -560 -700 240 Intake: Oral 240 240 Output: Urine 800 700 Other: Voiding Method External Catheter External Catheter Results 10/18/23 06:30 10/18/23 06:30 Cardiac Enzymes 10/18/23 10/18/23 Range/Units 10:22 12:44 Troponin I <0.012 <0.012 (0.000-0.034) ng/mL Current Medications Generic Name Dose Route Start Last Admin Trade Name Freq PRN Reason Stop Dose Admin Hydrocodone Bitart/Acetaminophen 1 each 10/18/23 13:15 Hydrocodone/Apap 10-325mg 1 Each Tab PO Q8H PRN Pain Albuterol Sulfate 2 puff 10/18/23 13:15 Albuterol Hfa Inhaler INHALATION RT-Q6H PRN Shortness Of Breath Albuterol/Ipratropium 3 ml 10/18/23 13:15 Ipratropium-Albuterol 3 Ml Neb INHALATION RT-Q6H PRN Shortness Of Breath Ascorbic Acid 500 mg 10/19/23 09:00 10/19/23 09:52 Ascorbic Acid 500 Mg Tab PO 500 mg DAILY [facility] Administration Aspirin 325 mg 10/19/23 09:00 10/19/23 09:39 Aspirin 325 Mg Tab PO Not Given DAILY [facility] Aspirin 81 mg 10/18/23 13:15 10/19/23 09:52 Aspirin 81 Mg PO 81 mg DAILY [facility] Administration Cholecalciferol 125 mcg 10/19/23 09:00 10/19/23 09:52 Cholecalciferol 125 Mcg (5000 Iu) Tablet PO 125 mcg DAILY [facility] Administration Dapagliflozin 10 mg 10/19/23 09:00 10/19/23 09:52 Dapagliflozin Propanediol 10 Mg Tablet PO 10 mg DAILY [facility] Administration Enoxaparin Sodium 40 mg 10/18/23 13:30 10/19/23 09:52 Enoxaparin 40 Mg/0.4 Ml Syringe SQ 40 mg DAILY [facility] Administration Furosemide 40 mg 10/18/23 09:15 10/19/23 09:52 Furosemide 10 Mg/Ml 4 Ml Vial IV 40 mg Q8HR [facility] Administration Levothyroxine Sodium 150 mcg 10/19/23 07:30 10/19/23 06:45 Levothyroxine 75 Mcg Tab PO 150 mcg AC-BRKFST [facility] Administration Metoprolol Tartrate 50 mg 10/18/23 21:00 10/19/23 09:52 Metoprolol Tartrate 50 Mg Tab PO 50 mg BID [facility] Administration Nitroglycerin 1 inch 10/18/23 09:15 10/19/23 09:38 Nitroglycerin Oint 1 Inch/Gm Packet TOPICAL Not Given QID [facility] Intake and Output 10/18/23 10/19/23 10/19/23 22:59 06:59 14:59 Intake Total 240 240 Output Total 800 700 Balance -560 -700 240 Intake: Oral 240 240 Output: Urine 800 700 Other: Voiding Method External Catheter External Catheter 10/18/23 06:30 10/18/23 06:30
[2023-10-19] MEDS: ALPRAZolam 0.25 MG TAB PO PRN (12:59)
[2023-10-19] MEDS ORDERED: ALPRAZolam 0.25 MG TAB PO SCH (13:00)
[2023-10-19] MEDS: FUROSEMIDE 10 MG/ML 2 ML VIAL ONE (13:18)
--- NOTE | 2023-10-19 14:04 | XR ---
EXAMINATION TYPE: XR chest 1V portable DATE OF EXAM: 10/19/2023 1:53 PM CLINICAL INDICATION:Female, 78 years old with history of respiratory distress; COMPARISON: Chest radiographs from 10/18/2023. TECHNIQUE: XR chest 1V portable Frontal view of the chest. FINDINGS: Lungs/Pleura: There is no evidence of pleural effusion, focal consolidation, or pneumothorax. Pulmonary vascularity: Unremarkable. Heart/mediastinum: Cardiomediastinal silhouette is enlarged and stable. Post aortic valve repair patrica nges. Left atrial appendage occlusion device is present.Atherosclerotic calcifications are seen in th e aorta. Musculoskeletal: No acute osseous pathology. Midline sternotomy wires are noted. Right shoulder arthr oplasty changes. Other findings: None IMPRESSION: Stable exam with cardiomegaly and mild pulmonary vascular congestion.
[2023-10-19 14:45] LABS: Basophils # (A) 0.1 k/uL (0-0.2); Basophils % (A) 1 %; Eosinophils # (A) 0.2 k/uL (0-0.7); Eosinophils % (A) 2 %; HGB 10.6 gm/dL (11.4-16.0); Hypochromasia Marked; Lymphocytes # (A) 1.3 k/uL (1.0-4.8); Lymphocytes % (A) 17 %; MCH 28.1 pg (25.0-35.0); MCHC 31.2 g/dL (31.0-37.0); MCV 90.2 fL (80.0-100.0); Mean Platelet Volume 8.4; Monocytes # (A) 0.4 k/uL (0-1.0); Monocytes % (A) 5 %; Neutrophils # (A) 5.9 k/uL (1.3-7.7); Neutrophils % (A) 73 %; Platelet Count 269 k/uL (150-450); RBC 3.76 m/uL (3.80-5.40); RDW 15.7 % (11.5-15.5)
[2023-10-19 14:53] LABS: African American GFR (CKD) 68 (>60 ml/min/1.73 sqM); Anion Gap 10 mmol/L; Blood Urea Nitrogen 22 mg/dL (7-17); Calcium 8.6 mg/dL (8.4-10.2); Carbon Dioxide 27 mmol/L (22-30); Chloride 103 mmol/L (98-107); Glucose 118 mg/dL (74-99); Magnesium 1.8 mg/dL (1.6-2.3); Non-African American GFR(CKD) 59 (>60 ml/min/1.73 sqM); Potassium 3.7 mmol/L (3.5-5.1); Sodium 140 mmol/L (137-145)
[2023-10-19] MEDS ORDERED: HEPARIN SODIUM 1,000 UN/ML (10ML VL) IV PRN (16:12)
[2023-10-19] MEDS: HEPARIN SODIUM 1,000 UN/ML (10ML VL) IV ONE (16:55)
[2023-10-19] MEDS: FUROSEMIDE 10 MG/ML 2 ML VIAL IV ONE (16:55)
[2023-10-19] MEDS: HEPARIN SOD,PORK IN 0.45% NACL 25,000 UNIT in 0.45% NACL 1 250ML.BAG IV SCH (16:56)
--- NOTE | 2023-10-20 03:00 | P.CNPUL ---
History of Present Illness Consult date: 10/20/23 Requesting physician: Olya Olson Reason for consult: dyspnea Chief complaint: shortness of breath History of present illness: I am seeing this patient in consultation today October 20, 2023 for acute on chronic dyspnea. Patient is a 78-year-old white female with past medical history significant for COPD, chronic hypoxemic respiratory failure maintained on 3 L/min nasal cannula at home, systolic congestive heart failure, paroxysmal atrial fibrillation, aortic stenosis with previous aortic valve replacement and mitral valve repair, hypothyroidism, and remote tobacco use. Patient's primary care provider is Dr. Olson. Patient does intermittently follow in the pulmonary office with Dr. Doyle for patient's COPD. She is chronically oxygen dependent on 3 L/min nasal cannula. She is a poor historian. She had a recent hospitalization at the beginning of the month for similar symptoms. She has chronic systolic heart failure with an estimated left ventricular ejection fraction of 30 to 35%. She also has a bioprosthetic aortic valve and previous mitral valve repair. Patient presented to emergency room two days ago on October 18, and her chief complaint on arrival was shortness of breath. Shortness of breath is mostly on exertion. she does have chronic dyspnea. Denies any infectious symptoms such as fever, cough, sputum production. She is also complaining of left-sided chest pain. The symptoms have been intermittent over the last 2 days. Left-sided chest pain is nonradiating. Last approximately 3 minutes at a time. Occurs at rest. Troponins less than 0.012 x 3. ECG on arrival shows atrial fibrillation with rapid ventricular response, but otherwise no acute ischemic changes. Denies any heart palpitations, lightheadedness, or syncopal events. No significant lower extremity edema. Endorses orthopnea. Chest x-ray on arrival shows cardiomegaly and pulmonary vascular congestion, more prominent than recent study. Patient is currently lying with the head of the bed elevated, 4 L/min nasal cannula, in no acute distress at rest. There is IV heparin infusing per protocol. APTT is therapeutic. D-dimer is elevated at 3.94. CBC from yesterday: WBC count 8, hemoglobin 10.6, hematocrit 34, platelets 269. BMP from yesterday: Sodium 140, potassium 3.7, chloride 103, serum bicarb 27, BUN 22, creatinine 0.92, glucose 118. Patient is afebrile. Vital signs are stable. Review of Systems REVIEW OF SYSTEMS: CONSTITUTIONAL: Denies any recent significant weight loss or weight gain. Denies fevers EYES: Denies change in vision. EARS, NOSE, MOUTH, THROAT: Denies headaches, denies sore throat. CARDIOVASCULAR: See HPI RESPIRATORY: See HPI GASTROINTESTINAL: Denies change in appetite, abdominal pain, nausea and vomiting, or diarrhea GENITOURINARY: Denies hematuria, denies infections. MUSKULOSKELETAL: Denies pain, denies swelling. INTEGUMENTARY: Denies rash, denies eczema. NEUROLOGICAL: Denies recent memory loss, no recent seizure activity. PSYCHIATRIC: Denies anxiety, denies depression. HEMATOLOGIC/LYMPHATIC: Denies anemia, denies enlarged lymph node Past Medical History Past Medical History: Atrial Fibrillation, Heart Failure, COPD, GERD/Reflux, Osteoarthritis (OA), Renal Disease, Rheumatoid Arthritis (RA), Supraventricular Tachycardia (SVT), Thyroid Disorder Additional Past Medical History / Comment(s): Valvular heart disease with previous aortic valve replacement and a mitral valve repair, congestion heart failure, Paroxysmal Afib, history of SVT, history of nonsustained VT, SOB with exertion, home O2 at 2L/NC usually prn but lately ATC, arthritis, RA several joints, current L elbow pain/swelling-had "injection", nephrolithiasis, hypothyroid, diverticular dx, UTI, iron deficiency anemia. 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 History of Any Multi-Drug Resistant Organisms: None Reported Past Surgical History: Coronary Bypass/CABG, Heart Catheterization, Hysterectomy, Joint Replacement, Orthopedic Surgery Additional Past Surgical History / Comment(s): Geoff total knees arthroplasty,lt hip arthroplasty, goiter removed 1962, partial thyroidectomy, cataracts removed with lens implants, REVERSE TOTAL RIGHT SHOULDER; Rotator cuff R shoulder, cervical fusion/injections, colonoscopy 2017(next after 5yr), MATTHEW, valve surgery at [facility] 10/13/17 Prosthetic Aortic valve and mitral valve repair. Total abdominal hysterectomy in the 1980s. Past Anesthesia/Blood Transfusion Reactions: Postoperative Nausea & Vomiting (PONV) Past Psychological History: No Psychological Hx Reported Smoking Status: Former smoker - Past Family History Father Family Medical History: Cancer, Myocardial Infarction ([place]) Additional Family Medical History / Comment(s): in his 80's of a mi. Colon cancer. Mother Family Medical History: No Reported History Additional Family Medical History / Comment(s): age 88 . hx smoking. Daughter(s) Family Medical History: Cancer Additional Family Medical History / Comment(s): from vulvar cancer. Medications and Allergies Home Medications Medication Instructions Recorded Confirmed Type Albuterol Sulfate [Proair Hfa] 2 puff INHALATION RT-Q6H PRN 07/28/19 10/18/23 History Ascorbic Acid [Vitamin C] 500 mg PO DAILY 05/08/21 10/18/23 History Cholecalciferol (Vitamin D3) 125 mcg PO DAILY 06/06/22 10/18/23 History [Vitamin D3 (125 MCG = 5,000 IU)] Ipratropium-Albuterol Nebulize 3 ml INHALATION RT-Q6H PRN 06/06/22 10/18/23 History [Duoneb 0.5 mg-3 mg/3 ml Soln] Levothyroxine Sodium [Synthroid] 150 mcg PO AC-BRKFST 30 Days #30 08/27/23 10/18/23 Rx tablet Metoprolol Tartrate [Lopressor] 50 mg PO BID 30 Days #60 tab 08/27/23 10/18/23 Rx HYDROcodone/APAP 10-325MG [[place] 1 tab PO Q8H PRN 3 Days #12 tab 09/14/23 10/18/23 Rx 10-325] Aspirin 81 mg PO DAILY tab 09/22/23 10/18/23 Rx Dapagliflozin Propanediol [Farxiga] 10 mg PO DAILY 30 Days #30 tab 09/22/23 10/18/23 Rx Bumetanide [BUMEX] 1 mg PO DAILY 09/30/23 10/18/23 History Gentamicin 0.3% Ophth Soln 1 drops BOTH EYES Q4HR 5 Days #3 ml 10/06/23 10/18/23 Rx [Garamycin 0.3% Ophth Soln] Allergies Allergy/AdvReac Type Severity Reaction Status Date / Time lisinopril AdvReac Cough Verified 09/30/23 08:02 Physical Exam Vitals: Vital Signs Temp Pulse Pulse Resp BP Pulse Ox 10/20/23 00:00 97.6 F 63 18 101/66 98 10/19/23 20:00 97.7 F 67 20 106/54 97 10/19/23 16:00 98.2 F 84 19 82/49 95 10/19/23 14:46 98.4 F 70 22 103/68 97 10/19/23 14:00 89 20 10/19/23 13:20 115 H 26 H 111/75 93 L 10/19/23 11:50 97.9 F 65 21 101/65 98 10/19/23 08:00 98.2 F 89 20 95/62 93 L 10/19/23 04:00 97.9 F 77 16 126/65 96 Intake and Output 10/19/23 10/19/23 10/20/23 14:59 22:59 06:59 Intake Total 480 250 58.45 Balance 480 250 58.45 Intake: IV 10 Invasive Line 3 10 Intake, IV Titration 58.45 Amount Heparin Sod,Pork in 0.45% 58.45 NaCl 25,000 unit In 0.45 % NaCl 1 250ml.bag @ 18 UNITS/KG/HR 8.41 mls/hr IV .Q24H [facility] Rx#: [id number] Oral 480 240 Other: Voiding Method External Catheter External Catheter # Voids 1 GENERAL EXAM: Alert, 78-year-old white female, comfortable in no apparent distress. HEAD: Normocephalic and atraumatic EYES: Normal reaction of pupils, equal size. NOSE: Clear with pink turbinates. THROAT: No erythema or exudates. NECK: No masses, no JVD. CHEST: No chest wall deformity. LUNGS: Equal air entry with bibasilar rales, on 4 L/min nasal cannula, no conversational dyspnea or accessory muscle use while at rest.. CVS: S1 and S2 normal with grade 2 systolic murmur, regular rhythm. No other extra heart sounds ABDOMEN: No hepatosplenomegaly, active bowel sounds, no guarding or rigidity. SPINE: No scoliosis or deformity SKIN: No rashes CENTRAL NERVOUS SYSTEM: No focal deficits, tone is normal in all 4 extremities. EXTREMITIES: There is no peripheral edema, clubbing, or cyanosis. Peripheral pulses are intact. Results - Laboratory Findings CBC and BMP: 10/19/23 13:58 10/19/23 13:58 PT/INR, D-dimer PT 11.8 sec (10.0-12.5) 10/18/23 06:30 INR 1.1 (<1.2) 10/18/23 06:30 D-Dimer 3.94 mg/L FEU (<0.60) H 10/19/23 13:58 Abnormal lab findings: Abnormal Labs 10/18/23 10/18/23 10/18/23 06:30 06:30 15:20 RBC Hgb 11.0 L MCHC 30.3 L RDW 15.7 H APTT D-Dimer Carbon Dioxide 20 L BUN 19 H Glucose 210 H Alkaline Phosphatase 130 H Urine Appearance Cloudy H Urine Nitrite Positive H Ur Squamous Epith Cells 7 H Urine Bacteria Moderate H 10/19/23 10/19/23 10/19/23 13:58 13:58 13:58 RBC 3.76 L Hgb 10.6 L MCHC RDW 15.7 H APTT D-Dimer 3.94 H Carbon Dioxide BUN 22 H Glucose 118 H Alkaline Phosphatase Urine Appearance Urine Nitrite Ur Squamous Epith Cells Urine Bacteria 10/19/23 23:13 RBC Hgb MCHC RDW APTT 55.0 H D-Dimer Carbon Dioxide BUN Glucose Alkaline Phosphatase Urine Appearance Urine Nitrite Ur Squamous Epith Cells Urine Bacteria - Diagnostic Findings Chest x-ray: image reviewed Assessment and Plan Assessment: Acute on chronic hypoxemic respiratory failure, likely secondary to an exacerbation of systolic congestive heart failure and atrial fibrillation with rapid ventricular response. Chest x-ray on arrival shows cardiomegaly and pulmonary vascular congestion, more prominent than recent study. NT proBNP 5680. Atypical chest pain Elevated D-dimer History of paroxysmal atrial fibrillation, not on anticoagulation History of aortic valve replacement with bioprosthetic and mitral valve repair History of nonischemic cardiomyopathy Chronic obstructive pulmonary disease, appears stable on my examination Chronic hypoxemic respiratory failure, secondary to above Remote history of tobacco use Hypothyroidism Plan: Patient's medications, labs, chest x-ray reviewed Continue supplemental oxygen, and wean as tolerated to maintain oxygen saturati on 92% or greater Agree with diuretics in the form of Lasix 40 mg 3 times daily. Farxiga and beta-dion were resumed IV heparin is infusing per protocol. aPTT therapeutic. D-dimer was elevated, rule out PE with chest CTA protocol, however, this is felt to be less likely. Continue DuoNebs and will add Symbicort inhaler. Prognosis is guarded related to above-mentioned comorbidities. She has had multiple similar hospitalizations so far this year. We will continue to follow, and further recommendations are forthcoming I have personally seen and examined the patient, performed the documentation and the assessment and plan as written. Number of minutes spent on the visit: 20 Time with Patient: Greater than 30
--- NOTE | 2023-10-20 03:14 | CT ---
EXAM: CT Angiography Chest With Intravenous Contrast CLINICAL HISTORY: ITS.REASON CT Reason: rule out pulmonary embolism TECHNIQUE: Axial computed tomographic angiography images of the chest with intravenous contrast. CTDI is 28 mGy and DLP is 269.7 mGy-cm. This CT exam was performed using one or more of the following dose reduction techniques: automated exposure control, adjustment of the mA and/or kV according to patient size, and/or use of iterative reconstruction technique. MIP reconstructed images were created and reviewed. COMPARISON: 08/23/2023 FINDINGS: Pulmonary arteries: No filling defects. Aorta: No thoracic aortic aneurysm. Lungs: Moderate pulmonary edema. 2.3 cm opacity in the right lower lobe adjacent to the fissure. Pleural space: No pneumothorax. Chronic moderate left loculated pleural effusion. Mild right pleural effusion. Heart: cardiomegaly. No pericardial effusion. Bones/joints: No acute fracture or dislocation. Soft tissues: Unremarkable. Lymph nodes: No enlarged lymph nodes. IMPRESSION: 1. Evidence of right heart failure. Cardiomegaly with bilateral pleural effusions and pulmonary edema. 2. No PE. 3. 2.3 cm opacity in the right lower lobe adjacent to the fissure. Likely atelectasis. Attention on follow-up.
[2023-10-20] MEDS: SYMBICORT 160-4.5 MCG INHALER INHALATION SCH (08:29)
[2023-10-20 11:45] VITALS: BMI 21.4
--- NOTE | 2023-10-20 12:10 | P.PN ---
Subjective HISTORY OF PRESENT ILLNESS: This is an 78-year-old female patient of Dr. Flores with past medical history of persistent atrial fibrillation/flutter recently taken off Coumadin, known EF of 37%, history of mitral valve repair, nonischemic cardiomyopathy, pulmonary hypertension, hypothyroidism, chronic hypoxic respiratory failure on home O2. Patient has had multiple hospitalizations for A-fib with RVR. She was recently discharged from the hospital on October 06 and has not had follow-up in the office with Dr. Flores yet. We have been asked to evaluate the patient for CHF and bradycardia. Patient apparently had a heart rate in the 40s while in the emergency center received atropine x 1. Heart rate is now running in the 80s. Patient denies any new concerns today. EKG atrial fibrillation 119 bpm Chest x-ray: Findings consistent with congestive heart failure exacerbation or fluid overload state. WBC 10.5, hemoglobin 11, platelet count 280. Sodium 138, potassium 4.5, BUN 19 creatinine 0.75. Blood sugar 210. Troponin negative x 3. Alkaline phosphatase 130 otherwise all liver function tests are within normal limits. Magnesium 2. proBNP 5680. Home cardiac medications: Aspirin 81 mg daily, Bumex 1 mg daily, Farxiga 10 mg daily, Lopressor 50 mg twice daily, patient also on levothyroxine 150 mcg daily. Echocardiogram in June 2023 revealed ejection fraction 30-35%, severe pulmonary hypertension, bioprosthetic aortic valve, and mitral valve repair with mild MR Cardiac catheterization history: October 2017 revealing normal coronary arteries Cardioversion 07/05/2022 for atrial flutter with sikh of sinus rhythm Aortic valve replacement 10/13/2017 with [employer] bioprosthetic aortic valve, mitral valve repair with [employer] annular flex band, clip ligation of the left atrial appendage. MATTHEW performed 01/30/2018 revealed sutured left atrial appendage, bioprosthetic aortic valve with normal functioning, mitral annuloplasty with mitral valve repair and mild mitral regurgitation. Moderate tricuspid regurgitation. No evidence of shunting across the intra-atrial septum. 10/20/2023 Patient examined this morning at the bedside. Patient is lethargic this morning. She denies chest pain or pressure. Denies shortness of breath. She remains on supplemental oxygen with oxygen saturations greater than 92%. P atient's blood pressures are low this morning with a systolic in the 80s. She remains on IV heparin. PHYSICAL EXAM: VITAL SIGNS: Reviewed. GENERAL: Well-developed in no acute distress. NECK: Supple. No JVD or thyromegaly LUNGS: Respirations even and unlabored. Lungs essentially clear to auscultation bilaterally. HEART: Regular rate and rhythm. S1 and S2 heard. EXTREMITIES: Normal range of motion. No clubbing or cyanosis. Peripheral pulses intact. No lower extremity edema ASSESSMENT: Persistent atrial fibrillation presenting with bradycardia status post 1 dose of atropine Acute systolic heart failure Mitral valve repair Nonischemic cardiomyopathy Pulmonary hypertension Hypothyroidism Chronic hypoxic respiratory failure on home O2 PLAN: Decrease Lasix to 40 mg every 12 hours Daily weights, accurate intake and output, and monitoring of kidney function Hold blood pressure medications for systolic blood pressure less than [address] Styles, continue IV heparin at this time Further recommendations pending patient course Nurse practitioner note has been reviewed by physician. Signing provider agrees with the documented findings, assessment, and plan of care documented by WOOL PRESSER as a scribe. Objective - Vital Signs Vital signs: Vital Signs Temp 98.1 F 10/20/23 11:30 Pulse 65 10/20/23 11:30 Resp 19 10/20/23 11:30 BP 88/60 10/20/23 11:30 Pulse Ox 98 10/20/23 11:30 FiO2 Intake & Output 10/19/23 10/20/23 10/20/23 18:59 06:59 18:59 Intake Total 720 78.45 10 Output Total 350 Balance 720 -271.55 10 Weight 49.67 kg 49.67 kg Intake: IV 20 10 Invasive Line 3 20 10 Intake, IV Titration 58.45 Amount Heparin Sod,Pork in 0.45% 58.45 NaCl 25,000 unit In 0.45 % NaCl 1 250ml.bag @ 18 UNITS/KG/HR 8.41 mls/hr IV .Q24H [facility] Rx#: [id number] Oral 720 Output: Urine 350 Other: Voiding Method External Catheter External Catheter # Voids 1 4 - Labs CBC & Chem 7: 10/19/23 13:58 10/19/23 13:58 Labs: Abnormal Lab Results - Last 24 Hours (Table) 10/19/23 10/19/23 10/19/23 Range/Units 13:58 13:58 13:58 RBC 3.76 L (3.80-5.40) m/uL Hgb 10.6 L (11.4-16.0) gm/dL RDW 15.7 H (11.5-15.5) % APTT (22.0-30.0) sec D-Dimer 3.94 H (<0.60) mg/L FEU BUN 22 H (7-17) mg/dL Glucose 118 H (74-99) mg/dL 10/19/23 10/20/23 Range/Units 23:13 06:50 RBC (3.80-5.40) m/uL Hgb (11.4-16.0) gm/dL RDW (11.5-15.5) % APTT 55.0 H 54.0 H (22.0-30.0) sec D-Dimer (<0.60) mg/L FEU BUN (7-17) mg/dL Glucose (74-99) mg/dL
--- NOTE | 2023-10-20 17:13 | P.PN ---
Subjective Progress Note Date: 10/20/23 Mirella San, is an 78-year-old female who presented to [facility] emergency room with a chief complaint of worsening shortness of breath She was evaluated in the emergency room vital examination on presentation revealed temperature of 98 pulse 86 respiration 24 blood pressure 130/95 pulse ox 100% on 5 L nasal cannula Laboratory data revealed a white blood count of 10.5 hemoglobin 11.0 platelet count 280 BUN 19 creatinine 0.75 troponin 0.012 BNP 5680 Testing in the emergency room revealed chest x-ray done in the emergency room revealed findings consistent with congestive heart failure exacerbation with fluid overload, EKG done in the emergency room revealed atrial flutter with r apid ventricular response with a heart rate of 119 Patient was admitted to medical floor for further evaluation and treatment, cardiology consultation was requested On 10/19/2023 patient was seen and examined on the medical floor she is alert and oriented 3 in no apparent distress she is still complaining of significant shortness of breath otherwise she denies any complaints d-dimer is elevated patient was started on IV heparin cardiology consultation and pulmonary consultation are following patient denies any chest pain Will follow closely Objective - Vital Signs Vital signs: Vital Signs Temp 97.7 F 10/20/23 03:15 Pulse 62 10/20/23 03:15 Resp 18 10/20/23 03:15 BP 104/67 10/20/23 03:15 Pulse Ox 97 10/20/23 03:15 FiO2 Intake & Output 10/19/23 10/20/23 10/20/23 18:59 06:59 18:59 Intake Total 720 78.45 Output Total 350 Balance 720 -271.55 Weight 49.67 kg Intake: IV 20 Invasive Line 3 20 Intake, IV Titration 58.45 Amount Heparin Sod,Pork in 0.45% 58.45 NaCl 25,000 unit In 0.45 % NaCl 1 250ml.bag @ 18 UNITS/KG/HR 8.41 mls/hr IV .Q24H [facility] Rx#: [id number] Oral 720 Output: Urine 350 Other: Voiding Method External Catheter External Catheter # Voids 1 4 - Exam In general patient is alert and oriented x 3 in no distress HEENT head normocephalic and atraumatic Neck is supple no JVD no goiter no lymphadenopathy no carotid bruit Chest examination is clear to auscultation no crackles no wheezing Cardiac exam reveals regular heart sounds S1 and S2 no gallops no murmurs Abdomen is soft nontender no organomegaly with normal bowel sounds Extremity exam reveals no edema no cyanosis or clubbing Neurological examination reveals no gross focal deficits - Labs CBC & Chem 7: 10/19/23 13:58 10/19/23 13:58 Labs: Abnormal Lab Results - Last 24 Hours (Table) 10/19/23 10/19/23 10/19/23 Range/Units 13:58 13:58 13:58 RBC 3.76 L (3.80-5.40) m/uL Hgb 10.6 L (11.4-16.0) gm/dL RDW 15.7 H (11.5-15.5) % APTT (22.0-30.0) sec D-Dimer 3.94 H (<0.60) mg/L FEU BUN 22 H (7-17) mg/dL Glucose 118 H (74-99) mg/dL 10/19/23 Range/Units 23:13 RBC (3.80-5.40) m/uL Hgb (11.4-16.0) gm/dL RDW (11.5-15.5) % APTT 55.0 H (22.0-30.0) sec D-Dimer (<0.60) mg/L FEU BUN (7-17) mg/dL Glucose (74-99) mg/dL Assessment and Plan Plan: Acute due to exacerbation of systolic congestive heart failure Atrial flutter with rapid ventricular response, heart rate came down without requiring Cardizem drip will monitor closely, anticoagulation was discontinued by cardiology on previous admission. Underlying history of nonischemic cardiomyopathy. Elevated D Dimer Underlying history of valvular heart disease with previous history of mitral valve repair, and history of aortic valve replacement Underlying history of pulmonary hypertension Underlying history of hypothyroidism Underlying history of chronic persistent atrial fibrillation Underlying history of coronary artery disease with previous history of coronary artery bypass graft surgery Underlying history of osteoarthritis with history of bilateral knee arthroplasty and left hip arthroplasty Previous history of goiter with history of partial thyroidectomy At this time patient was seen and examined in the emergency room She will be admitted to telemetry floor She was started on IV Lasix Home medications reviewed and reordered Cardiology consultation was requested Will follow closely
--- NOTE | 2023-10-20 17:15 | P.PN ---
Subjective Progress Note Date: 10/20/23 Mirella San, is an 78-year-old female who presented to [facility] emergency room with a chief complaint of worsening shortness of breath She was evaluated in the emergency room vital examination on presentation revealed temperature of 98 pulse 86 respiration 24 blood pressure 130/95 pulse ox 100% on 5 L nasal cannula Laboratory data revealed a white blood count of 10.5 hemoglobin 11.0 platelet count 280 BUN 19 creatinine 0.75 troponin 0.012 BNP 5680 Testing in the emergency room revealed chest x-ray done in the emergency room revealed findings consistent with congestive heart failure exacerbation with fluid overload, EKG done in the emergency room revealed atrial flutter with r apid ventricular response with a heart rate of 119 Patient was admitted to medical floor for further evaluation and treatment, cardiology consultation was requested On 10/19/2023 patient was seen and examined on the medical floor she is alert and oriented 3 in no apparent distress she is still complaining of significant shortness of breath otherwise she denies any complaints d-dimer is elevated patient was started on IV heparin cardiology consultation and pulmonary consultation are following patient denies any chest pain Will follow closely. On 10/20/2023 patient was seen and examined on the telemetry floor she is alert and oriented 3 in no apparent distress, there is no fever or chills no headache or dizziness she is still complaining of shortness of breath no cough no chest pain no nausea or vomiting no abdominal pain no diarrhea and no urinary symptoms Objective - Vital Signs Vital signs: Vital Signs Temp 98.1 F 10/20/23 11:30 Pulse 65 10/20/23 13:13 Resp 19 10/20/23 13:13 BP 88/60 10/20/23 11:30 Pulse Ox 98 10/20/23 11:30 FiO2 Intake & Output 10/19/23 10/20/23 10/20/23 18:59 06:59 18:59 Intake Total 720 78.45 20 Output Total 350 Balance 720 -271.55 20 Weight 49.67 kg 49.67 kg Intake: IV 20 20 Invasive Line 3 20 20 Intake, IV Titration 58.45 Amount Heparin Sod,Pork in 0.45% 58.45 NaCl 25,000 unit In 0.45 % NaCl 1 250ml.bag @ 18 UNITS/KG/HR 8.41 mls/hr IV .Q24H [facility] Rx#: [id number] Oral 720 Output: Urine 350 Other: Voiding Method External Catheter External Catheter External Catheter # Voids 1 4 - Exam In general patient is alert and oriented x 3 in no distress HEENT head normocephalic and atraumatic Neck is supple no JVD no goiter no lymphadenopathy no carotid bruit Chest examination is clear to auscultation no crackles no wheezing Cardiac exam reveals regular heart sounds S1 and S2 no gallops no murmurs Abdomen is soft nontender no organomegaly with normal bowel sounds Extremity exam reveals no edema no cyanosis or clubbing Neurological examination reveals no gross focal deficits - Labs CBC & Chem 7: 10/19/23 13:58 10/19/23 13:58 Labs: Abnormal Lab Results - Last 24 Hours (Table) 10/19/23 10/20/23 Range/Units 23:13 06:50 APTT 55.0 H 54.0 H (22.0-30.0) sec Assessment and Plan Plan: Acute due to exacerbation of systolic congestive heart failure Atrial flutter with rapid ventricular response, heart rate came down without requiring Cardizem drip will monitor closely, anticoagulation was discontinued by cardiology on previous admission. Underlying history of nonischemic cardiomyopathy. Elevated D Dimer Underlying history of valvular heart disease with previous history of mitral valve repair, and history of aortic valve replacement Underlying history of pulmonary hypertension Underlying history of hypothyroidism Underlying history of chronic persistent atrial fibrillation Underlying history of coronary artery disease with previous history of coronary artery bypass graft surgery Underlying history of osteoarthritis with history of bilateral knee arthroplasty and left hip arthroplasty Previous history of goiter with history of partial thyroidectomy At this time patient was seen and examined in the emergency room She will be admitted to telemetry floor She was started on IV Lasix Home medications reviewed and reordered Cardiology consultation was requested Will follow closely
[2023-10-20] MEDS: FUROSEMIDE 10 MG/ML 4 ML VIAL IV SCH (19:52)
--- NOTE | 2023-10-21 09:16 | P.PN ---
Subjective Progress Note Date: 10/21/23 Mirella San, is an 78-year-old female who presented to [facility] emergency room with a chief complaint of worsening shortness of breath She was evaluated in the emergency room vital examination on presentation revealed temperature of 98 pulse 86 respiration 24 blood pressure 130/95 pulse ox 100% on 5 L nasal cannula Laboratory data revealed a white blood count of 10.5 hemoglobin 11.0 platelet count 280 BUN 19 creatinine 0.75 troponin 0.012 BNP 5680 Testing in the emergency room revealed chest x-ray done in the emergency room revealed findings consistent with congestive heart failure exacerbation with fluid overload, EKG done in the emergency room revealed atrial flutter with r apid ventricular response with a heart rate of 119 Patient was admitted to medical floor for further evaluation and treatment, cardiology consultation was requested On 10/19/2023 patient was seen and examined on the medical floor she is alert and oriented 3 in no apparent distress she is still complaining of significant shortness of breath otherwise she denies any complaints d-dimer is elevated patient was started on IV heparin cardiology consultation and pulmonary consultation are following patient denies any chest pain Will follow closely. On 10/20/2023 patient was seen and examined on the telemetry floor she is alert and oriented 3 in no apparent distress, there is no fever or chills no headache or dizziness she is still complaining of shortness of breath no cough no chest pain no nausea or vomiting no abdominal pain no diarrhea and no urinary symptoms and 10/21/2023 for patients alert and oriented 3. Current vital signs of 97.8, heart rate 64, respiratory rate 18, blood pressure 102/64 with a pulse ox of 100% on 4 L. Patient remains on IV heparin. Cardiology services following. Patient denies chest pain or shortness breath. Patient denies nausea vomiting or diarrhea. Patient denies any urinary burning or frequency Objective - Vital Signs Vital signs: Vital Signs Temp 97.8 F 10/21/23 08:49 Pulse 64 10/21/23 08:49 Resp 18 10/21/23 08:49 BP 92/53 10/21/23 08:49 Pulse Ox 98 10/21/23 08:49 FiO2 Intake & Output 10/20/23 10/21/23 10/21/23 18:59 06:59 18:59 Intake Total 550 201.55 Output Total 320 Balance 550 -118.45 Weight 49.67 kg 46.14 kg Intake: IV 20 10 Invasive Line 3 20 10 Intake, IV Titration 50 191.55 Amount Heparin Sod,Pork in 0.45% 191.55 NaCl 25,000 unit In 0.45 % NaCl 1 250ml.bag @ 18 UNITS/KG/HR 8.41 mls/hr IV .Q24H [facility] Rx#: [id number] cefTRIAXone 1 gm In 50 Sodium Chloride 0.9% 50 ml @ 100 mls/hr IVPB Q24HR [facility] Rx#:[id number] Oral 480 Output: Urine 320 Other: Voiding Method External Catheter External Catheter # Voids 6 3 - Exam In general patient is alert and oriented x 3 in no distress HEENT head normocephalic and atraumatic Neck is supple no JVD no goiter no lymphadenopathy no carotid bruit Chest examination is clear to auscultation no crackles no wheezing Cardiac exam reveals regular heart sounds S1 and S2 no gallops no murmurs Abdomen is soft nontender no organomegaly with normal bowel sounds Extremity exam reveals no edema no cyanosis or clubbing Neurological examination reveals no gross focal deficits - Labs CBC & Chem 7: 10/19/23 13:58 10/19/23 13:58 Assessment and Plan Plan: Acute due to exacerbation of systolic congestive heart failure Atrial flutter with rapid ventricular response, heart rate came down without requiring Cardizem drip will monitor closely, anticoagulation was discontinued by cardiology on previous admission. Underlying history of nonischemic cardiomyopathy. Elevated D Dimer Underlying history of valvular heart disease with previous history of mitral valve repair, and history of aortic valve replacement Underlying history of pulmonary hypertension Underlying history of hypothyroidism Underlying history of chronic persistent atrial fibrillation Underlying history of coronary artery disease with previous history of coronary artery bypass graft surgery Underlying history of osteoarthritis with history of bilateral knee arthroplasty and left hip arthroplasty Previous history of goiter with history of partial thyroidectomy At this time patient was seen and examined in the emergency room She will be admitted to telemetry floor She was started on IV Lasix Patient currently on IV heparin Home medications reviewed and reordered Cardiology consultation was requested Will follow closely
--- NOTE | 2023-10-21 11:22 | P.PN ---
Subjective Progress Note Date: 10/21/23 Principal diagnosis: Shortness of breath. I am seeing this patient in consultation today October 20, 2023 for acute on chronic dyspnea. Patient is a 78-year-old white female with past medical history significant for COPD, chronic hypoxemic respiratory failure maintained on 3 L/min nasal cannula at home, systolic congestive heart failure, paroxysmal atrial fibrillation, aortic stenosis with previous aortic valve replacement and mitral valve repair, hypothyroidism, and remote tobacco use. Patient's primary care provider is Dr. Olson. Patient does intermittently follow in the pulmonary office with Dr. Doyle for patient's COPD. She is chronically oxygen dependent on 3 L/min nasal cannula. She is a poor historian. She had a recent hospitalization at the beginning of the month for similar symptoms. She has chronic systolic heart failure with an estimated left ventricular ejection fraction of 30 to 35%. She also has a bioprosthetic aortic valve and previous mitral valve repair. Patient presented to emergency room two days ago on October 18, and her chief complaint on arrival was shortness of breath. Shortness of breath is mostly on exertion. she does have chronic dyspnea. Denies any infectious symptoms such as fever, cough, sputum production. She is also complaining of left-sided chest pain. The symptoms have been intermittent over the last 2 days. Left-sided chest pain is nonradiating. Last approximately 3 minutes at a time. Occurs at rest. Troponins less than 0.012 x 3. ECG on arrival shows atrial fibrillation with rapid ventricular response, but otherwise no acute ischemic changes. Denies any heart palpitations, lightheadedness, or syncopal events. No significant lower extremity edema. Endorses orthopnea. Chest x-ray on arrival shows cardiomegaly and pulmonary vascular congestion, more prominent than recent study. Patient is currently lying with the head of the bed elevated, 4 L/min nasal cannula, in no acute distress at rest. There is IV heparin infusing per protocol. APTT is therapeutic. D-dimer is elevated at 3.94. CBC from yesterday: WBC count 8, hemoglobin 10.6, hematocrit 34, platelets 269. BMP from yesterday: Sodium 140, potassium 3.7, chloride 103, serum bicarb 27, BUN 22, creatinine 0.92, glucose 118. Patient is afebrile. Vital signs are stable. Progress note dated October 29, 2023. This is an 78-year-old female well-known to my service. I see her in the office for her underlying COPD. The patient is seen today in room 385. She was actually admitted with a diagnosis of increasing and progressive shortness of breath, secondary to CHF, and atrial fibrillation with RVR. Currently, the patient is on oxygen, at 4 L. She is receiving IV heparin. She was given IV Rocephin as well. We will check a procalcitonin level. The patient may have a urinary tract infection. She seems to be resting comfortably, and not having much shortness of breath. No new labs today. Labs from yesterday and the day before have been reviewed. Currently, microbiologic sampling is pending are negative. Procalcitonin level is pending. N-terminal proBNP on admission was 5680. Objective - Vital Signs Vital signs: Vital Signs Temp 97.8 F 10/21/23 08:49 Pulse 64 10/21/23 08:49 Resp 18 10/21/23 08:49 BP 92/53 10/21/23 08:49 Pulse Ox 98 10/21/23 08:49 FiO2 Intake & Output 10/20/23 10/21/23 10/21/23 18:59 06:59 18:59 Intake Total 550 201.55 240 Output Total 320 Balance 550 -118.45 240 Weight 49.67 kg 46.14 kg Intake: IV 20 10 Invasive Line 3 20 10 Intake, IV Titration 50 191.55 Amount Heparin Sod,Pork in 0.45% 191.55 NaCl 25,000 unit In 0.45 % NaCl 1 250ml.bag @ 18 UNITS/KG/HR 8.41 mls/hr IV .Q24H [facility] Rx#: [id number] cefTRIAXone 1 gm In 50 Sodium Chloride 0.9% 50 ml @ 100 mls/hr IVPB Q24HR [facility] Rx#:[id number] Oral 480 240 Output: Urine 320 Other: Voiding Method External Catheter External Catheter External Catheter # Voids 6 3 - Exam No acute distress, oriented 3. Currently on 4 L of oxygen by nasal cannula. No conversational dyspnea, or use of accessory muscles. HEENT examination is grossly unremarkable. Mucous membranes are moist. No oral lesions. Neck supple. Full range of motion. No adenopathy thyromegaly or neck vein distention. Cardiovascular examination reveals regular rhythm rate. S1-S2 normal. No S3 or S4. No discernible murmur noted. Heart rate 64 bpm. Heart sounds are distant. Lungs reveal mild bibasilar crackles. No wheezes or rhonchi. Breath sounds equal. Saturations are 98% on 4 L of oxygen. Abdomen soft bowel sounds are heard. No masses or tenderness. Extremities are intact. No cyanosis clubbing or edema. Skin is without rash or lesion. Neurologic examination is brief but nonfocal. - Labs CBC & Chem 7: 10/19/23 13:58 10/19/23 13:58 Assessment and Plan Assessment: Acute on chronic hypoxemic respiratory failure, likely secondary to an exacerbation of systolic congestive heart failure and atrial fibrillation with rapid ventricular response. Chest x-ray on arrival shows cardiomegaly and pulmonary vascular congestion, more prominent than recent study. NT proBNP 5680. Atypical chest pain. Elevated D-dimer. History of paroxysmal atrial fibrillation, not on anticoagulation. History of aortic valve replacement with bioprosthetic and mitral valve repair. History of nonischemic cardiomyopathy. Chronic obstructive pulmonary disease, appears stable. Chronic hypoxemic respiratory failure, secondary to above. Remote history of tobacco use. Hypothyroidism. Plan: Plan dated October 21, 2023. The patient is seen today in room 385. The patient continues on IV heparin. The patient is getting oxygen at 4 L. Will check a procalcitonin level, to determine if she has a urinary tract infection. The patient is on Rocephin. Labs, x-rays, and medications are reviewed. We will continue to follow the patient, and make recommendations along the way. Overall, the patient's prognosis is guarded. The patient will follow-up with me in the office, to better assess her COPD. I do not believe I have seen her for some time in the office. Time with Patient: Less than 30
--- NOTE | 2023-10-21 11:23 | P.PN ---
Subjective HISTORY OF PRESENT ILLNESS: This is an 78-year-old female patient of Dr. Flores with past medical history of persistent atrial fibrillation/flutter recently taken off Coumadin, known EF of 37%, history of mitral valve repair, nonischemic cardiomyopathy, pulmonary hypertension, hypothyroidism, chronic hypoxic respiratory failure on home O2. Patient has had multiple hospitalizations for A-fib with RVR. She was recently discharged from the hospital on October 06 and has not had follow-up in the office with Dr. Flores yet. We have been asked to evaluate the patient for CHF and bradycardia. Patient apparently had a heart rate in the 40s while in the emergency center received atropine x 1. Heart rate is now running in the 80s. Patient denies any new concerns today. EKG atrial fibrillation 119 bpm Chest x-ray: Findings consistent with congestive heart failure exacerbation or fluid overload state. WBC 10.5, hemoglobin 11, platelet count 280. Sodium 138, potassium 4.5, BUN 19 creatinine 0.75. Blood sugar 210. Troponin negative x 3. Alkaline phosphatase 130 otherwise all liver function tests are within normal limits. Magnesium 2. proBNP 5680. Home cardiac medications: Aspirin 81 mg daily, Bumex 1 mg daily, Farxiga 10 mg daily, Lopressor 50 mg twice daily, patient also on levothyroxine 150 mcg daily. Echocardiogram in June 2023 revealed ejection fraction 30-35%, severe pulmonary hypertension, bioprosthetic aortic valve, and mitral valve repair with mild MR Cardiac catheterization history: October 2017 revealing normal coronary arteries Cardioversion 07/05/2022 for atrial flutter with pentecostalism of sinus rhythm Aortic valve replacement 10/13/2017 with Magna Ease bioprosthetic aortic valve, mitral valve repair with CarboMedics annular flex band, clip ligation of the left atrial appendage. MATTHEW performed 01/30/2018 revealed sutured left atrial appendage, bioprosthetic aortic valve with normal functioning, mitral annuloplasty with mitral valve repair and mild mitral regurgitation. Moderate tricuspid regurgitation. No evidence of shunting across the intra-atrial septum. 10/20/2023 Patient examined this morning at the bedside. Patient is lethargic this morning. She denies chest pain or pressure. Denies shortness of breath. She remains on supplemental oxygen with oxygen saturations greater than 92%. P atient's blood pressures are low this morning with a systolic in the 80s. She remains on IV heparin. 10/21/2023 Patient examined this morning at the bedside. Patient denies chest pain or pressure. She denies shortness of breath. Vital signs are stable. She remains on IV Lasix 40 mg every 12 hours. Kidney function from this morning remains pending. PHYSICAL EXAM: VITAL SIGNS: Reviewed. GENERAL: Well-developed in no acute distress. NECK: Supple. No JVD or thyromegaly LUNGS: Respirations even and unlabored. Lungs essentially clear to auscultation bilaterally. HEART: Regular rate and rhythm. S1 and S2 heard. EXTREMITIES: Normal range of motion. No clubbing or cyanosis. Peripheral pul ses intact. No lower extremity edema ASSESSMENT: Persistent atrial fibrillation presenting with bradycardia status post 1 dose of atropine Acute systolic heart failure Mitral valve repair Nonischemic cardiomyopathy Pulmonary hypertension Hypothyroidism Chronic hypoxic respiratory failure on home O2 PLAN: Continue IV Lasix. Anticipate transitioning to oral Bumex tomorrow Daily weights, accurate intake and output, and monitoring of kidney function Hold blood pressure medications for systolic blood pressure less than 90 Discontinue IV heparin. Patient not anticoagulated on an outpatient basis secondary to history of sutured left atrial appendage. Further recommendations pending patient course Nurse practitioner note has been reviewed by physician. Signing provider agrees with the documented findings, assessment, and plan of care documented by PLASTICS FABRICATOR OR WELDER as a scribe. Objective - Vital Signs Vital signs: Vital Signs Temp 97.8 F 10/21/23 08:49 Pulse 64 10/21/23 08:49 Resp 18 10/21/23 08:49 BP 92/53 10/21/23 08:49 Pulse Ox 98 10/21/23 08:49 FiO2 Intake & Output 10/20/23 10/21/23 10/21/23 18:59 06:59 18:59 Intake Total 550 201.55 240 Output Total 320 Balance 550 -118.45 240 Weight 49.67 kg 46.14 kg Intake: IV 20 10 Invasive Line 3 20 10 Intake, IV Titration 50 191.55 Amount Heparin Sod,Pork in 0.45% 191.55 NaCl 25,000 unit In 0.45 % NaCl 1 250ml.bag @ 18 UNITS/KG/HR 8.41 mls/hr IV .Q24H CARLOS Rx#: [id number] cefTRIAXone 1 gm In 50 Sodium Chloride 0.9% 50 ml @ 100 mls/hr IVPB Q24HR CARLOS Rx#:[id number] Oral 480 240 Output: Urine 320 Other: Voiding Method External Catheter External Catheter External Catheter # Voids 6 3 - Labs CBC & Chem 7: 10/19/23 13:58 10/19/23 13:58
[2023-10-21 11:52] LABS: Basophils # (A) 0.1 k/uL (0-0.2); Basophils % (A) 1 %; Eosinophils # (A) 0.3 k/uL (0-0.7); Eosinophils % (A) 4 %; HCT 36.3 % (34.0-46.0); HGB 11.1 gm/dL (11.4-16.0); Hypochromasia Marked; Lymphocytes # (A) 1.8 k/uL (1.0-4.8); Lymphocytes % (A) 25 %; MCHC 30.5 g/dL (31.0-37.0); MCV 91.7 fL (80.0-100.0); Mean Platelet Volume 9.1; Monocytes # (A) 0.4 k/uL (0-1.0); Monocytes % (A) 6 %; Neutrophils # (A) 4.2 k/uL (1.3-7.7); Neutrophils % (A) 60 %; Platelet Count 265 k/uL (150-450); RBC 3.96 m/uL (3.80-5.40); RDW 15.7 % (11.5-15.5); WBC 6.9 k/uL (3.8-10.6)
[2023-10-21 12:24] LABS: Chloride 97 mmol/L (98-107)
[2023-10-21 12:25] LABS: ALT 22 U/L (4-34); AST 33 U/L (14-36); African American GFR (CKD) 71 (>60 ml/min/1.73 sqM); Albumin 3.7 g/dL (3.5-5.0); Alkaline Phosphatase 133 U/L (38-126); Anion Gap 12 mmol/L; Blood Urea Nitrogen 20 mg/dL (7-17); Calcium 8.5 mg/dL (8.4-10.2); Carbon Dioxide 31 mmol/L (22-30); Glucose 88 mg/dL (74-99); Non-African American GFR(CKD) 61 (>60 ml/min/1.73 sqM); Potassium 3.2 mmol/L (3.5-5.1); Sodium 140 mmol/L (137-145); Total Bilirubin 0.9 mg/dL (0.2-1.3); Total Protein 7.1 g/dL (6.3-8.2)
[2023-10-22] MEDS ORDERED: ZINC OXIDE PASTE (Z-GUARD) 1 APPLIC TOPICAL PRN (00:40)
[2023-10-22] MEDS: BUMETANIDE 1 MG TAB PO SCH (08:19)
[2023-10-22 08:55] VITALS: RESP 18
--- NOTE | 2023-10-22 10:48 | P.DS ---
Providers Date of admission: 10/20/23 08:49 Expected date of discharge: 10/22/23 Attending physician: Olya Olson Consults: 10/18/23 09:04 Consult Physician Routine Consulting Provider: Klaus Dove Consult Reason/Comments: chf, shirley episode Do you want consulting provider notified?: Yes 10/19/23 16:11 Consult Physician Routine Consulting Provider: Abel Man Consult Reason/Comments: shortness of breath Do you want consulting provider notified?: Yes Primary care physician: Olya Whitney [facility] Course: Discharge diagnosis Acute due to exacerbation of systolic congestive heart failure Atrial flutter with rapid ventricular response, heart rate came down without requiring Cardizem drip will monitor closely, anticoagulation was discontinued b y cardiology on previous admission. Underlying history of nonischemic cardiomyopathy. Elevated D Dimer Underlying history of valvular heart disease with previous history of mitral valve repair, and history of aortic valve replacement Underlying history of pulmonary hypertension Underlying history of hypothyroidism Underlying history of chronic persistent atrial fibrillation Underlying history of coronary artery disease with previous history of coronary artery bypass graft surgery Underlying history of osteoarthritis with history of bilateral knee arthroplasty and left hip arthroplasty Previous history of goiter with history of partial thyroidectomy Hospital course Mirella San, is an 78-year-old female who presented to [facility] emergency room with a chief complaint of worsening shortness of breath She was evaluated in the emergency room vital examination on presentation revealed temperature of 98 pulse 86 respiration 24 blood pressure 130/95 pulse ox 100% on 5 L nasal cannula Laboratory data revealed a white blood count of 10.5 hemoglobin 11.0 platelet count 280 BUN 19 creatinine 0.75 troponin 0.012 BNP 5680 Testing in the emergency room revealed chest x-ray done in the emergency room revealed findings consistent with congestive heart failure exacerbation with fluid overload, EKG done in the emergency room revealed atrial flutter with rapid ventricular response with a heart rate of 119 Patient was admitted to medical floor for further evaluation and treatment, cardiology consultation was requested On 10/19/2023 patient was seen and examined on the medical floor she is alert and oriented 3 in no apparent distress she is still complaining of significant shortness of breath otherwise she denies any complaints d-dimer is elevated patient was started on IV heparin cardiology consultation and pulmonary consultation are following patient denies any chest pain Will follow closely. On 10/20/2023 patient was seen and examined on the telemetry floor she is alert and oriented 3 in no apparent distress, there is no fever or chills no headache or dizziness she is still complaining of shortness of breath no cough no chest pain no nausea or vomiting no abdominal pain no diarrhea and no urinary symptoms and 10/21/2023 for patients alert and oriented 3. Current vital signs of 97.8, heart rate 64, respiratory rate 18, blood pressure 102/64 with a pulse ox of 100% on 4 L. Patient remains on IV heparin. Cardiology services following. Patient denies chest pain or shortness breath. Patient denies nausea vomiting or diarrhea. Patient denies any urinary burning or frequency On 10/22/2023 patient is alert and oriented x 3. Patient has been cleared for discharge from cardiology and pulmonary services. Patient has been transitioned to p.o. Bumex on increased dose. Per cardiology patient not anticoagulated on an outpatient basis secondary history of suture and left atrial appendage. Patient will be DC'd on p.o. Ceftin for urinary tract infection Plan - Discharge Summary Discharge Rx Participant: No New Discharge Prescriptions: New Bumetanide [BUMEX] 1 mg PO BID@0900,1600 30 Days #60 tab cefUROXime axetiL [Ceftin] 500 mg PO BID 5 Days #10 tab Continue Albuterol Sulfate [Proair Hfa] 2 puff INHALATION RT-Q6H PRN PRN Reason: Shortness Of Breath Ascorbic Acid [Vitamin C] 500 mg PO DAILY Cholecalciferol (Vitamin D3) [Vitamin D3 (125 MCG = 5,000 IU)] 125 mcg PO DAILY Ipratropium-Albuterol Nebulize [Duoneb 0.5 mg-3 mg/3 ml Soln] 3 ml INHALATION RT-Q6H PRN PRN Reason: Shortness Of Breath Levothyroxine Sodium [Synthroid] 150 mcg PO AC-BRKFST 30 Days #30 tablet Aspirin 81 mg PO DAILY tab Dapagliflozin Propanediol [Farxiga] 10 mg PO DAILY 30 Days #30 tab Gentamicin 0.3% Ophth Soln [Garamycin 0.3% Ophth Soln] 1 drops BOTH EYES Q4HR 5 Days #3 ml Metoprolol Tartrate [Lopressor] 50 mg PO BID 30 Days #60 tab HYDROcodone/APAP 10-325MG [[place] 10-325] 1 tab PO Q8H PRN 3 Days #12 tab PRN Reason: Pain Discontinued Bumetanide [BUMEX] 1 mg PO DAILY Discharge Medication List Albuterol Sulfate [Proair Hfa] 2 puff INHALATION RT-Q6H PRN 07/28/19 [History] Ascorbic Acid [Vitamin C] 500 mg PO DAILY 05/08/21 [History] Cholecalciferol (Vitamin D3) [Vitamin D3 (125 MCG = 5,000 IU)] 125 mcg PO DAILY 06/06/22 [History] Ipratropium-Albuterol Nebulize [Duoneb 0.5 mg-3 mg/3 ml Soln] 3 ml INHALATION RT-Q6H PRN 06/06/22 [History] Levothyroxine Sodium [Synthroid] 150 mcg PO AC-BRKFST 30 Days #30 tablet 08/27/23 [Rx] Metoprolol Tartrate [Lopressor] 50 mg PO BID 30 Days #60 tab 08/27/23 [Rx] HYDROcodone/APAP 10-325MG [[place] 10-325] 1 tab PO Q8H PRN 3 Days #12 tab 09/14/23 [Rx] Aspirin 81 mg PO DAILY tab 09/22/23 [Rx] Dapagliflozin Propanediol [Farxiga] 10 mg PO DAILY 30 Days #30 tab 09/22/23 [Rx] Gentamicin 0.3% Ophth Soln [Garamycin 0.3% Ophth Soln] 1 drops BOTH EYES Q4HR 5 Days #3 ml 10/06/23 [Rx] Bumetanide [BUMEX] 1 mg PO BID@0900,1600 30 Days #60 tab 10/22/23 [Rx] cefUROXime axetiL [Ceftin] 500 mg PO BID 5 Days #10 tab 10/22/23 [Rx] Follow up Appointment(s)/Referral(s): Alexx Flores MD [STAFF PHYSICIAN] - 1 Week Olya Olson MD [Primary Care Provider] - 1-2 days Activity/Diet/Wound Care/Special Instructions: Activity as tolerated Diet heart healthy
[2023-10-22 11:45] LABS: ALT 19 U/L (4-34); AST 27 U/L (14-36); African American GFR (CKD) 86 (>60 ml/min/1.73 sqM); Albumin 3.6 g/dL (3.5-5.0); Alkaline Phosphatase 121 U/L (38-126); Anion Gap 11 mmol/L; Blood Urea Nitrogen 19 mg/dL (7-17); Calcium 8.7 mg/dL (8.4-10.2); Carbon Dioxide 31 mmol/L (22-30); Chloride 97 mmol/L (98-107); Glucose 188 mg/dL (74-99); Non-African American GFR(CKD) 75 (>60 ml/min/1.73 sqM); Potassium 2.9 mmol/L (3.5-5.1); Sodium 139 mmol/L (137-145); Total Bilirubin 0.7 mg/dL (0.2-1.3)
[2023-10-22 11:50] LABS: Basophils % (A) 1 %; Eosinophils # (A) 0.2 k/uL (0-0.7); Eosinophils % (A) 3 %; HCT 34.6 % (34.0-46.0); HGB 10.7 gm/dL (11.4-16.0); Hypochromasia Marked; Lymphocytes # (A) 1.2 k/uL (1.0-4.8); Lymphocytes % (A) 17 %; MCH 27.8 pg (25.0-35.0); MCHC 30.9 g/dL (31.0-37.0); MCV 90.2 fL (80.0-100.0); Monocytes # (A) 0.3 k/uL (0-1.0); Monocytes % (A) 4 %; Neutrophils # (A) 5.4 k/uL (1.3-7.7); Neutrophils % (A) 73 %; Platelet Count 226 k/uL (150-450); RBC 3.83 m/uL (3.80-5.40); RDW 15.7 % (11.5-15.5); WBC 7.3 k/uL (3.8-10.6)
--- NOTE | 2023-10-22 12:18 | P.PN ---
Subjective Progress Note Date: 10/22/23 Principal diagnosis: Shortness of breath. I am seeing this patient in consultation today October 20, 2023 for acute on chronic dyspnea. Patient is a 78-year-old white female with past medical history significant for COPD, chronic hypoxemic respiratory failure maintained on 3 L/min nasal cannula at home, systolic congestive heart failure, paroxysmal atrial fibrillation, aortic stenosis with previous aortic valve replacement and mitral valve repair, hypothyroidism, and remote tobacco use. Patient's primary care provider is Dr. Olson. Patient does intermittently follow in the pulmonary office with Dr. Doyle for patient's COPD. She is chronically oxygen dependent on 3 L/min nasal cannula. She is a poor historian. She had a recent hospitalization at the beginning of the month for similar symptoms. She has chronic systolic heart failure with an estimated left ventricular ejection fraction of 30 to 35%. She also has a bioprosthetic aortic valve and previous mitral valve repair. Patient presented to emergency room two days ago on October 18, and her chief complaint on arrival was shortness of breath. Shortness of breath is mostly on exertion. she does have chronic dyspnea. Denies any infectious symptoms such as fever, cough, sputum production. She is also complaining of left-sided chest pain. The symptoms have been intermittent over the last 2 days. Left-sided chest pain is nonradiating. Last approximately 3 minutes at a time. Occurs at rest. Troponins less than 0.012 x 3. ECG on arrival shows atrial fibrillation with rapid ventricular response, but otherwise no acute ischemic changes. Denies any heart palpitations, lightheadedness, or syncopal events. No significant lower extremity edema. Endorses orthopnea. Chest x-ray on arrival shows cardiomegaly and pulmonary vascular congestion, more prominent than recent study. Patient is currently lying with the head of the bed elevated, 4 L/min nasal cannula, in no acute distress at rest. There is IV heparin infusing per protocol. APTT is therapeutic. D-dimer is elevated at 3.94. CBC from yesterday: WBC count 8, hemoglobin 10.6, hematocrit 34, platelets 269. BMP from yesterday: Sodium 140, potassium 3.7, chloride 103, serum bicarb 27, BUN 22, creatinine 0.92, glucose 118. Patient is afebrile. Vital signs are stable. Progress note dated October 21, 2023. This is an 78-year-old female well-known to my service. I see her in the office for her underlying COPD. The patient is seen today in room 385. She was actually admitted with a diagnosis of increasing and progressive shortness of breath, secondary to CHF, and atrial fibrillation with RVR. Currently, the patient is on oxygen, at 4 L. She is receiving IV heparin. She was given IV Rocephin as well. We will check a procalcitonin level. The patient may have a urinary tract infection. She seems to be resting comfortably, and not having much shortness of breath. No new labs today. Labs from yesterday and the day before have been reviewed. Currently, microbiologic sampling is pending are negative. Procalcitonin level is pending. N-terminal proBNP on admission was 5680. Progress note dated October 22, 2023. 78-year-old female seen today in room 385. Currently, the patient is on 3 L of oxygen. Saturations are 95%. The patient is not receiving any IV fluids. Labs, x-rays, and medications are all reviewed. Today's labs include a white count of 7.3, hemoglobin 10.7, hematocrit 34.6, and a platelet count of 226,000. Sodium 139, potassium 2.9, chloride 97, CO2 31, BUN 19, creatinine 0.76. P rocalcitonin level is 0.06. Glucose is 188. Objective - Vital Signs Vital signs: Vital Signs Temp 97.8 F 10/22/23 08:15 Pulse 88 10/22/23 08:15 Resp 18 10/22/23 08:15 BP 102/65 10/22/23 08:15 Pulse Ox 95 10/22/23 08:15 FiO2 Intake & Output 10/21/23 10/22/23 10/22/23 18:59 06:59 18:59 Intake Total 720 118 Balance 720 118 Weight 38 kg Intake: Oral 720 118 Other: Voiding Method External Catheter External Catheter External Catheter # Voids 3 3 1 - Exam No acute distress, oriented 3. Currently on 3 L of oxygen by nasal cannula. No conversational dyspnea, or use of accessory muscles. HEENT examination is grossly unremarkable. Mucous membranes are moist. No oral lesions. Neck supple. Full range of motion. No adenopathy thyromegaly or neck vein distention. Cardiovascular examination reveals regular rhythm rate. S1-S2 normal. No S3 or S4. No discernible murmur noted. Heart rate 88 bpm. Heart sounds are distant. Lungs reveal mild bibasilar crackles. No wheezes or rhonchi. Breath sounds equ al. Saturations are 95% on 3 L. Abdomen soft bowel sounds are heard. No masses or tenderness. Extremities are intact. No cyanosis clubbing or edema. Skin is without rash or lesion. Neurologic examination is brief but nonfocal. - Labs CBC & Chem 7: 10/22/23 11:01 10/22/23 11:01 Labs: Abnormal Lab Results - Last 24 Hours (Table) 10/21/23 10/21/23 10/22/23 Range/Units 10:07 10:07 11:01 Hgb 10.7 L (11.4-16.0) gm/dL MCHC 30.9 L (31.0-37.0) g/dL RDW 15.7 H (11.5-15.5) % APTT 63.5 H (22.0-30.0) sec Potassium 3.2 L (3.5-5.1) mmol/L Chloride 97 L (98-107) mmol/L Carbon Dioxide 31 H (22-30) mmol/L BUN 20 H (7-17) mg/dL Glucose (74-99) mg/dL Alkaline Phosphatase 133 H (38-126) U/L 10/22/23 Range/Units 11:01 Hgb (11.4-16.0) gm/dL MCHC (31.0-37.0) g/dL RDW (11.5-15.5) % APTT (22.0-30.0) sec Potassium 2.9 L (3.5-5.1) mmol/L Chloride 97 L (98-107) mmol/L Carbon Dioxide 31 H (22-30) mmol/L BUN 19 H (7-17) mg/dL Glucose 188 H (74-99) mg/dL Alkaline Phosphatase (38-126) U/L Assessment and Plan Assessment: Acute on chronic hypoxemic respiratory failure, likely secondary to an exacerbation of systolic congestive heart failure and atrial fibrillation with rapid ventricular response. Chest x-ray on arrival shows cardiomegaly and pulmonary vascular congestion, more prominent than recent study. NT proBNP 5680. Atypical chest pain. Elevated D-dimer. History of paroxysmal atrial fibrillation, not on anticoagulation. History of aortic valve replacement with bioprosthetic and mitral valve repair. History of nonischemic cardiomyopathy. Chronic obstructive pulmonary disease, appears stable. Chronic hypoxemic respiratory failure, secondary to above. Remote history of tobacco use. Hypothyroidism. Plan: Plan dated October 21, 2023. The patient is seen today in room 385. The patient continues on IV heparin. The patient is getting oxygen at 4 L. Will check a procalcitonin level, to determine if she has a urinary tract infection. The patient is on Rocephin. Labs, x-rays, and medications are reviewed. We will continue to follow the patient, and make recommendations along the way. Overall, the patient's prognosis is guarded. The patient will follow-up with me in the office, to be tter assess her COPD. I do not believe I have seen her for some time in the office. Plan dated October 22, 2023. The patient is stable from the pulmonary standpoint. She has been weaned down to 3 L of oxygen. Her saturations are in the mid 90s. The patient's not receiving any IV fluids. Labs, x-rays, and medications are reviewed. The patient is stable from the pulmonary standpoint. Discharge planning is underway. The patient should see me in the office, sometime after discharge, so that we can reevaluate her COPD. We have not seen her in the office, for some time. Time with Patient: Less than 30
--- NOTE | 2023-10-22 12:44 | P.PN ---
Subjective HISTORY OF PRESENT ILLNESS: This is an 78-year-old female patient of Dr. Folres with past medical history of persistent atrial fibrillation/flutter recently taken off Coumadin, known EF of 37%, history of mitral valve repair, nonischemic cardiomyopathy, pulmonary hypertension, hypothyroidism, chronic hypoxic respiratory failure on home O2. Patient has had multiple hospitalizations for A-fib with RVR. She was recently discharged from the hospital on October 06 and has not had follow-up in the office with Dr. Flores yet. We have been asked to evaluate the patient for CHF and bradycardia. Patient apparently had a heart rate in the 40s while in the emergency center received atropine x 1. Heart rate is now running in the 80s. Patient denies any new concerns today. EKG atrial fibrillation 119 bpm Chest x-ray: Findings consistent with congestive heart failure exacerbation or fluid overload state. WBC 10.5, hemoglobin 11, platelet count 280. Sodium 138, potassium 4.5, BUN 19 creatinine 0.75. Blood sugar 210. Troponin negative x 3. Alkaline phosphatase 130 otherwise all liver function tests are within normal limits. Magnesium 2. proBNP 5680. Home cardiac medications: Aspirin 81 mg daily, Bumex 1 mg daily, Farxiga 10 mg daily, Lopressor 50 mg twice daily, patient also on levothyroxine 150 mcg daily. Echocardiogram in June 2023 revealed ejection fraction 30-35%, severe pulmonary hypertension, bioprosthetic aortic valve, and mitral valve repair with mild MR Cardiac catheterization history: October 2017 revealing normal coronary arteries Cardioversion 07/05/2022 for atrial flutter with restorationism of sinus rhythm Aortic valve replacement 10/13/2017 with Magna Ease bioprosthetic aortic valve, mitral valve repair with CarboMedics annular flex band, clip ligation of the left atrial appendage. MATTHEW performed 01/30/2018 revealed sutured left atrial appendage, bioprosthetic aortic valve with normal functioning, mitral annuloplasty with mitral valve repair and mild mitral regurgitation. Moderate tricuspid regurgitation. No evidence of shunting across the intra-atrial septum. 10/20/2023 Patient examined this morning at the bedside. Patient is lethargic this morning. She denies chest pain or pressure. Denies shortness of breath. She remains on supplemental oxygen with oxygen saturations greater than 92%. P atient's blood pressures are low this morning with a systolic in the 80s. She remains on IV heparin. 10/21/2023 Patient examined this morning at the bedside. Patient denies chest pain or pressure. She denies shortness of breath. Vital signs are stable. She remains on IV Lasix 40 mg every 12 hours. Kidney function from this morning remains pending. 10/22/2023 Patient examined this morning the bedside. Patient denies chest pain or pressure. She denies shortness of breath. She remains on IV Lasix 40 mg every 12 hours. Vital signs are stable. PHYSICAL EXAM: VITAL SIGNS: Reviewed. GENERAL: Well-developed in no acute distress. NECK: Supple. No JVD or thyromegaly LUNGS: Respirations even and unlabored. Lungs essentially clear to auscultation bilaterally. HEART: Regular rate and rhythm. S1 and S2 heard. EXTREMITIES: Normal range of motion. No clubbing or cyanosis. Peripheral puls es intact. No lower extremity edema ASSESSMENT: Persistent atrial fibrillation presenting with bradycardia status post 1 dose of atropine Acute systolic heart failure Mitral valve repair Nonischemic cardiomyopathy Pulmonary hypertension Hypothyroidism Chronic hypoxic respiratory failure on home O2 PLAN: Discontinue IV Lasix. Begin oral Bumex 1 mg twice a day Daily weights, accurate intake and output, and monitoring of kidney function Hold blood pressure medications for systolic blood pressure less than 90 Patient not anticoagulated on an outpatient basis secondary to history of sutured left atrial appendage. Stable from a cardiac perspective for discharge Further recommendations pending patient course Nurse practitioner note has been reviewed by physician. Signing provider agrees with the documented findings, assessment, and plan of care documented by CHOCOLATE MAKER as a scribe. Objective - Vital Signs Vital signs: Vital Signs Temp 97.8 F 10/22/23 08:15 Pulse 88 10/22/23 08:15 Resp 18 10/22/23 08:15 BP 102/65 10/22/23 08:15 Pulse Ox 95 10/22/23 08:15 FiO2 Intake & Output 10/21/23 10/22/23 10/22/23 18:59 06:59 18:59 Intake Total 720 118 Balance 720 118 Weight 38 kg Intake: Oral 720 118 Other: Voiding Method External Catheter External Catheter External Catheter # Voids 3 3 1 - Labs CBC & Chem 7: 10/22/23 11:01 10/22/23 11:01 Labs: Abnormal Lab Results - Last 24 Hours (Table) 10/22/23 10/22/23 Range/Units 11:01 11:01 Hgb 10.7 L (11.4-16.0) gm/dL MCHC 30.9 L (31.0-37.0) g/dL RDW 15.7 H (11.5-15.5) % Potassium 2.9 L (3.5-5.1) mmol/L Chloride 97 L (98-107) mmol/L Carbon Dioxide 31 H (22-30) mmol/L BUN 19 H (7-17) mg/dL Glucose 188 H (74-99) mg/dL
[2023-10-22] MEDS ORDERED: Potassium Replacement Protocol 1 EACH MISC MISCELLANE PRN (13:30)
[2023-10-22] MEDS: IPRATROPIUM-ALBUTEROL 3 ML NEB INHALATION PRN (15:57)
[2023-10-22] MEDS: POTASSIUM CHLORIDE ER 20 MEQ TAB.ER PO SCH (16:47)
[2023-10-23 10:04] VITALS: TEMP 97.6
--- NOTE | 2023-10-23 11:52 | P.PN ---
Subjective HISTORY OF PRESENT ILLNESS: This is an 78-year-old female patient of Dr. Flores with past medical history of persistent atrial fibrillation/flutter recently taken off Coumadin, known EF of 37%, history of mitral valve repair, nonischemic cardiomyopathy, pulmonary hypertension, hypothyroidism, chronic hypoxic respiratory failure on home O2. Patient has had multiple hospitalizations for A-fib with RVR. She was recently discharged from the hospital on October 06 and has not had follow-up in the office with Dr. Flores yet. We have been asked to evaluate the patient for CHF and bradycardia. Patient apparently had a heart rate in the 40s while in the emergency center received atropine x 1. Heart rate is now running in the 80s. Patient denies any new concerns today. EKG atrial fibrillation 119 bpm Chest x-ray: Findings consistent with congestive heart failure exacerbation or fluid overload state. WBC 10.5, hemoglobin 11, platelet count 280. Sodium 138, potassium 4.5, BUN 19 creatinine 0.75. Blood sugar 210. Troponin negative x 3. Alkaline phosphatase 130 otherwise all liver function tests are within normal limits. Magnesium 2. proBNP 5680. Home cardiac medications: Aspirin 81 mg daily, Bumex 1 mg daily, Farxiga 10 mg daily, Lopressor 50 mg twice daily, patient also on levothyroxine 150 mcg daily. Echocardiogram in June 2023 revealed ejection fraction 30-35%, severe pulmonary hypertension, bioprosthetic aortic valve, and mitral valve repair with mild MR Cardiac catheterization history: October 2017 revealing normal coronary arteries Cardioversion 07/05/2022 for atrial flutter with holiness of sinus rhythm Aortic valve replacement 10/13/2017 with [employer] bioprosthetic aortic valve, mitral valve repair with [employer] annular flex band, clip ligation of the left atrial appendage. MATTHEW performed 01/30/2018 revealed sutured left atrial appendage, bioprosthetic aortic valve with normal functioning, mitral annuloplasty with mitral valve repair and mild mitral regurgitation. Moderate tricuspid regurgitation. No evidence of shunting across the intra-atrial septum. 10/20/2023 Patient examined this morning at the bedside. Patient is lethargic this morning. She denies chest pain or pressure. Denies shortness of breath. She remains on supplemental oxygen with oxygen saturations greater than 92%. P atient's blood pressures are low this morning with a systolic in the 80s. She remains on IV heparin. 10/21/2023 Patient examined this morning at the bedside. Patient denies chest pain or pressure. She denies shortness of breath. Vital signs are stable. She remains on IV Lasix 40 mg every 12 hours. Kidney function from this morning remains pending. 10/22/2023 Patient examined this morning the bedside. Patient denies chest pain or pressure. She denies shortness of breath. She remains on IV Lasix 40 mg every 12 hours. Vital signs are stable. 10/23/2023 Patient examined this morning at the bedside. Patient denies chest pain or pressure. She denies shortness of breath. Vital signs are stable. PHYSICAL EXAM: VITAL SIGNS: Reviewed. GENERAL: Well-developed in no acute distress. NECK: Supple. No JVD or thyromegaly LUNGS: Respirations even and unlabored. Lungs essentially clear to auscultation bilaterally. HEART: Regular rate and rhythm. S1 and S2 heard. EXTREMITIES: Normal range of motion. No clubbing or cyanosis. Peripheral pulses intact. No lower extremity edema ASSESSMENT: Persistent atrial fibrillation presenting with bradycardia status post 1 dose of atropine Acute systolic heart failure Mitral valve repair Nonischemic cardiomyopathy Pulmonary hypertension Hypothyroidism Chronic hypoxic respiratory failure on home O2 PLAN: Continue current cardiac medications Patient not anticoagulated on an outpatient basis secondary to history of sutured left atrial appendage. Stable from a cardiac perspective for discharge Nurse practitioner note has been reviewed by physician. Signing provider agrees with the documented findings, assessment, and plan of care documented by CATTERY OPERATOR as a scribe. Objective - Vital Signs Vital signs: Vital Signs Temp 97.6 F 10/23/23 08:00 Pulse 83 10/23/23 11:42 Resp 18 10/23/23 11:42 BP 107/68 10/23/23 11:42 Pulse Ox 94 L 10/23/23 11:42 FiO2 Intake & Output 10/22/23 10/23/23 10/23/23 18:59 06:59 18:59 Intake Total 476 240 Balance 476 240 Weight 40.8 kg Intake: Oral 476 240 Other: Voiding Method External Catheter Diaper Bedside Commode Diaper # Voids 3 1 - Labs CBC & Chem 7: 10/22/23 11:01 10/22/23 11:01 Labs: Abnormal Lab Results - Last 24 Hours (Table) 10/22/23 10/22/23 Range/Units 11:01 11:01 Hgb 10.7 L (11.4-16.0) gm/dL MCHC 30.9 L (31.0-37.0) g/dL RDW 15.7 H (11.5-15.5) % Potassium 2.9 L (3.5-5.1) mmol/L Chloride 97 L (98-107) mmol/L Carbon Dioxide 31 H (22-30) mmol/L BUN 19 H (7-17) mg/dL Glucose 188 H (74-99) mg/dL
[2023-10-23 12:11] VITALS: BP 107/68; PULSE 83
--- NOTE | 2023-10-23 13:25 | P.PN ---
Subjective Progress Note Date: 10/23/23 Principal diagnosis: Shortness of breath. I am seeing this patient in consultation today October 20, 2023 for acute on chronic dyspnea. Patient is a 78-year-old white female with past medical history significant for COPD, chronic hypoxemic respiratory failure maintained on 3 L/min nasal cannula at home, systolic congestive heart failure, paroxysmal atrial fibrillation, aortic stenosis with previous aortic valve replacement and mitral valve repair, hypothyroidism, and remote tobacco use. Patient's primary care provider is Dr. Olson. Patient does intermittently follow in the pulmonary office with Dr. Doyle for patient's COPD. She is chronically oxygen dependent on 3 L/min nasal cannula. She is a poor historian. She had a recent hospitalization at the beginning of the month for similar symptoms. She has chronic systolic heart failure with an estimated left ventricular ejection fraction of 30 to 35%. She also has a bioprosthetic aortic valve and previous mitral valve repair. Patient presented to emergency room two days ago on October 18, and her chief complaint on arrival was shortness of breath. Shortness of breath is mostly on exertion. she does have chronic dyspnea. Denies any infectious symptoms such as fever, cough, sputum production. She is also complaining of left-sided chest pain. The symptoms have been intermittent over the last 2 days. Left-sided chest pain is nonradiating. Last approximately 3 minutes at a time. Occurs at rest. Troponins less than 0.012 x 3. ECG on arrival shows atrial fibrillation with rapid ventricular response, but otherwise no acute ischemic changes. Denies any heart palpitations, lightheadedness, or syncopal events. No significant lower extremity edema. Endorses orthopnea. Chest x-ray on arrival shows cardiomegaly and pulmonary vascular congestion, more prominent than recent study. Patient is currently lying with the head of the bed elevated, 4 L/min nasal cannula, in no acute distress at rest. There is IV heparin infusing per protocol. APTT is therapeutic. D-dimer is elevated at 3.94. CBC from yesterday: WBC count 8, hemoglobin 10.6, hematocrit 34, platelets 269. BMP from yesterday: Sodium 140, potassium 3.7, chloride 103, serum bicarb 27, BUN 22, creatinine 0.92, glucose 118. Patient is afebrile. Vital signs are stable. Progress note dated October 21, 2023. This is an 78-year-old female well-known to my service. I see her in the office for her underlying COPD. The patient is seen today in room 385. She was actually admitted with a diagnosis of increasing and progressive shortness of breath, secondary to CHF, and atrial fibrillation with RVR. Currently, the patient is on oxygen, at 4 L. She is receiving IV heparin. She was given IV Rocephin as well. We will check a procalcitonin level. The patient may have a urinary tract infection. She seems to be resting comfortably, and not having much shortness of breath. No new labs today. Labs from yesterday and the day before have been reviewed. Currently, microbiologic sampling is pending are negative. Procalcitonin level is pending. N-terminal proBNP on admission was 5680. Progress note dated October 22, 2023. 78-year-old female seen today in room 385. Currently, the patient is on 3 L of oxygen. Saturations are 95%. The patient is not receiving any IV fluids. Labs, x-rays, and medications are all reviewed. Today's labs include a white count of 7.3, hemoglobin 10.7, hematocrit 34.6, and a platelet count of 226,000. Sodium 139, potassium 2.9, chloride 97, CO2 31, BUN 19, creatinine 0.76. P rocalcitonin level is 0.06. Glucose is 188. Progress note dated October 23, 2023. 78-year-old female seen today in room 385. The patient continues on oxygen at 2 L. She is getting saline at 10 cc an hour. Discharge planning is underway. The patient feels like she is improved. She is much less short of breath. Laboratory data, from today, is not noted. The laboratory data from yesterday has been reviewed. White count 7.3, hemoglobin 10.7, potassium is low at 2.9 but has been replaced. BUN and creatinine were 19 and 0.76. Procalcitonin level was 0.06. Objective - Vital Signs Vital signs: Vital Signs Temp 97.6 F 10/23/23 08:00 Pulse 83 10/23/23 11:42 Resp 18 10/23/23 11:42 BP 107/68 10/23/23 11:42 Pulse Ox 94 L 10/23/23 11:42 FiO2 Intake & Output 10/22/23 10/23/23 10/23/23 18:59 06:59 18:59 Intake Total 476 240 Balance 476 240 Weight 40.8 kg Intake: Oral 476 240 Other: Voiding Method External Catheter Diaper Bedside Commode Diaper # Voids 3 1 - Exam No acute distress, oriented 3. Currently on 2 L of oxygen by nasal cannula. No conversational dyspnea, or use of accessory muscles. HEENT examination is grossly unremarkable. Mucous membranes are moist. No oral lesions. Neck supple. Full range of motion. No adenopathy thyromegaly or neck vein distention. Cardiovascular examination reveals regular rhythm rate. S1-S2 normal. No S3 or S4. No discernible murmur noted. Heart rate 83 bpm. Heart sounds are distant. Lungs reveal mild bibasilar crackles. No wheezes or rhonchi. Breath sounds equal. Saturations are 94% on 2 L. Abdomen soft bowel sounds are heard. No masses or tenderness. Extremities are intact. No cyanosis clubbing or edema. Skin is without rash or lesion. Neurologic examination is brief but nonfocal. - Labs CBC & Chem 7: 10/22/23 11:01 10/22/23 11:01 Assessment and Plan Assessment: Acute on chronic hypoxemic respiratory failure, likely secondary to an exacerbation of systolic congestive heart failure and atrial fibrillation with rapid ventricular response. Chest x-ray on arrival shows cardiomegaly and pulmonary vascular congestion, more prominent than recent study. NT proBNP 5680. Atypical chest pain. Elevated D-dimer. History of paroxysmal atrial fibrillation, not on anticoagulation. History of aortic valve replacement with bioprosthetic and mitral valve repair. History of nonischemic cardiomyopathy. Chronic obstructive pulmonary disease, appears stable. Chronic hypoxemic respiratory failure, secondary to above. Remote history of tobacco use. Hypothyroidism. Plan: Plan dated October 21, 2023. The patient is seen today in room 385. The patient continues on IV heparin. The patient is getting oxygen at 4 L. Will check a procalcitonin level, to determine if she has a urinary tract infection. The patient is on Rocephin. Labs, x-rays, and medications are reviewed. We will continue to follow the patient, and make recommendations along the way. Overall, the patient's prognosis is guarded. The patient will follow-up with me in the office, to better assess her COPD. I do not believe I have seen her for some time in the office. Plan dated October 22, 2023. The patient is stable from the pulmonary standpoint. She has been weaned down to 3 L of oxygen. Her saturations are in the mid 90s. The patient's not receiving any IV fluids. Labs, x-rays, and medications are reviewed. The patient is stable from the pulmonary standpoint. Discharge planning is underway. The patient should see me in the office, sometime after discharge, so that we can reevaluate her COPD. We have not seen her in the office, for some time. Plan dated October 23, 2023. The patient appears to be doing relatively well. The patient is stable from the pulmonary standpoint, and could be considered for possible discharge. She has been weaned down to 2 L. She denies shortness of breath, cough, wheezing, chest tightness, and phlegm production. Labs, x-rays, and medications are reviewed. Discharge planning is underway. Should she not be discharged, will continue to see her on a daily basis, and make recommendations where appropriate. Time with Patient: Less than 30
--- NOTE | 2023-10-23 13:36 | P.PN ---
Subjective Progress Note Date: 10/23/23 Mirella San, is an 78-year-old female who presented to [facility] emergency room with a chief complaint of worsening shortness of breath She was evaluated in the emergency room vital examination on presentation revealed temperature of 98 pulse 86 respiration 24 blood pressure 130/95 pulse ox 100% on 5 L nasal cannula Laboratory data revealed a white blood count of 10.5 hemoglobin 11.0 platelet count 280 BUN 19 creatinine 0.75 troponin 0.012 BNP 5680 Testing in the emergency room revealed chest x-ray done in the emergency room revealed findings consistent with congestive heart failure exacerbation with fluid overload, EKG done in the emergency room revealed atrial flutter with r apid ventricular response with a heart rate of 119 Patient was admitted to medical floor for further evaluation and treatment, cardiology consultation was requested On 10/19/2023 patient was seen and examined on the medical floor she is alert and oriented 3 in no apparent distress she is still complaining of significant shortness of breath otherwise she denies any complaints d-dimer is elevated patient was started on IV heparin cardiology consultation and pulmonary consultation are following patient denies any chest pain Will follow closely. On 10/20/2023 patient was seen and examined on the telemetry floor she is alert and oriented 3 in no apparent distress, there is no fever or chills no headache or dizziness she is still complaining of shortness of breath no cough no chest pain no nausea or vomiting no abdominal pain no diarrhea and no urinary symptoms and 10/21/2023 for patients alert and oriented 3. Current vital signs of 97.8, heart rate 64, respiratory rate 18, blood pressure 102/64 with a pulse ox of 100% on 4 L. Patient remains on IV heparin. Cardiology services following. Patient denies chest pain or shortness breath. Patient denies nausea vomiting or diarrhea. Patient denies any urinary burning or frequency On 10/23/2023 patient was seen and examined on the medical floor, she is alert and oriented 3 in no apparent distress there is no fever or chills no headache or dizziness no chest pain no shortness of breath no cough no nausea or vomiting no abdominal pain no diarrhea and no urinary symptoms. Patient was evaluated by cardiology and pulmonary and was cleared for discharge, she will be discharged to home today follow up in the office in 1-2 days. Objective - Vital Signs Vital signs: Vital Signs Temp 97.6 F 10/23/23 08:00 Pulse 83 10/23/23 11:42 Resp 18 10/23/23 11:42 BP 107/68 10/23/23 11:42 Pulse Ox 94 L 10/23/23 11:42 FiO2 Intake & Output 10/22/23 10/23/23 10/23/23 18:59 06:59 18:59 Intake Total 476 240 Balance 476 240 Weight 40.8 kg Intake: Oral 476 240 Other: Voiding Method External Catheter Diaper Bedside Commode Diaper # Voids 3 1 - Exam In general patient is alert and oriented x 3 in no distress HEENT head normocephalic and atraumatic Neck is supple no JVD no goiter no lymphadenopathy no carotid bruit Chest examination is clear to auscultation no crackles no wheezing Cardiac exam reveals regular heart sounds S1 and S2 no gallops no murmurs Abdomen is soft nontender no organomegaly with normal bowel sounds Extremity exam reveals no edema no cyanosis or clubbing Neurological examination reveals no gross focal deficits - Labs CBC & Chem 7: 10/22/23 11:01 10/22/23 11:01 Assessment and Plan Plan: Acute due to exacerbation of systolic congestive heart failure Atrial flutter with rapid ventricular response, heart rate came down without requiring Cardizem drip will monitor closely, anticoagulation was discontinued by cardiology on previous admission. Underlying history of nonischemic cardiomyopathy. Elevated D Dimer Underlying history of valvular heart disease with previous history of mitral valve repair, and history of aortic valve replacement Underlying history of pulmonary hypertension Underlying history of hypothyroidism Underlying history of chronic persistent atrial fibrillation Underlying history of coronary artery disease with previous history of coronary artery bypass graft surgery Underlying history of osteoarthritis with history of bilateral knee arthroplasty and left hip arthroplasty Previous history of goiter with history of partial thyroidectomy At this time patient was seen and examined in the emergency room She will be admitted to telemetry floor She was started on IV Lasix Patient currently on IV heparin Home medications reviewed and reordered Cardiology consultation was requested Will follow closely
== END 2023-10-23 15:19 | disposition home health service (06) | DRG 291 ==
LOC: EC 05:59 → 3SCARD 09:06 → OBSVTOIN 10-20 08:49
PROVIDERS: ADMIT Internal Medicine; ATTEND Internal Medicine
DX: I11.0 Hypertensive heart disease with heart failure (principal); I50.23 Acute on chronic systolic (congestive) heart failure; J96.21 Acute and chronic respiratory failure with hypoxia; I48.19 Other persistent atrial fibrillation; I48.92 Unspecified atrial flutter; I25.10 Atherosclerotic heart disease of native coronary artery without angina pectoris; I27.20 Pulmonary hypertension, unspecified; Z99.81 Dependence on supplemental oxygen; E03.9 Hypothyroidism, unspecified; Z79.890 Hormone replacement therapy; R00.1 Bradycardia, unspecified; I07.1 Rheumatic tricuspid insufficiency; I42.8 Other cardiomyopathies; M06.9 Rheumatoid arthritis, unspecified; Z79.82 Long term (current) use of aspirin; Z79.84 Long term (current) use of oral hypoglycemic drugs; Z79.899 Other long term (current) drug therapy; Z87.442 Personal history of urinary calculi; Z82.49 Family history of ischemic heart disease and other diseases of the circulatory system; Z90.710 Acquired absence of both cervix and uterus; Z87.891 Personal history of nicotine dependence; Z95.1 Presence of aortocoronary bypass graft; Z91.148 Patient's other noncompliance with medication regimen for other reason; D50.9 Iron deficiency anemia, unspecified; Z95.3 Presence of xenogenic heart valve; Z96.1 Presence of intraocular lens; Z96.642 Presence of left artificial hip joint; Z96.653 Presence of artificial knee joint, bilateral; Z98.42 Cataract extraction status, left eye; Z98.41 Cataract extraction status, right eye; Z88.8 Allergy status to other drugs, medicaments and biological substances
CPT/HCPCS: 36415; 71045; 71275; 80048; 80053; 81001; 83735; 83880; 84145; 84484; 85025; 85379; 85610; 85730; 93005; 94640; 94760; 96374; 96375; 99285

== ENCOUNTER 2023-11-01 08:59 | Observation (INO) | payer MEDICARE, OTHER ==
--- NOTE | 2023-11-01 09:11 | ED ---
General Adult HPI - General Chief complaint: Shortness of Breath Stated complaint: sob Time Seen by Provider: 11/01/23 09:02 Source: patient, EMS, RN notes reviewed Mode of arrival: EMS Limitations: no limitations - History of Present Illness Initial comments: Patient is a pleasant 78-year-old female present to the emergency department shortness of breath. Patient is somewhat a poor historian. Symptoms have been worse over the past month, worse again over the past few days. Patient does have leg swelling which she feels is somewhat chronic. No cough. No fever. Patient does have history of similar symptoms previously associated with CHF. - Related Data Home Medications Medication Instructions Recorded Confirmed Albuterol Sulfate [Proair Hfa] 2 puff INHALATION RT-Q6H PRN 07/28/19 10/18/23 Ascorbic Acid [Vitamin C] 500 mg PO DAILY 05/08/21 10/18/23 Cholecalciferol (Vitamin D3) 125 mcg PO DAILY 06/06/22 10/18/23 [Vitamin D3 (125 MCG = 5,000 IU)] Ipratropium-Albuterol Nebulize 3 ml INHALATION RT-Q6H PRN 06/06/22 10/18/23 [Duoneb 0.5 mg-3 mg/3 ml Soln] Previous Rx's Medication Instructions Recorded Levothyroxine Sodium [Synthroid] 150 mcg PO AC-BRKFST 30 Days #30 08/27/23 tablet Metoprolol Tartrate [Lopressor] 50 mg PO BID 30 Days #60 tab 08/27/23 HYDROcodone/APAP 10-325MG [[place] 1 tab PO Q8H PRN 3 Days #12 tab 09/14/23 10-325] Aspirin 81 mg PO DAILY tab 09/22/23 Dapagliflozin Propanediol [Farxiga] 10 mg PO DAILY 30 Days #30 tab 09/22/23 Gentamicin 0.3% Ophth Soln 1 drops BOTH EYES Q4HR 5 Days #3 ml 10/06/23 [Garamycin 0.3% Ophth Soln] Bumetanide [BUMEX] 1 mg PO BID@0900,1600 30 Days #60 10/22/23 tab cefUROXime axetiL [Ceftin] 500 mg PO BID 5 Days #10 tab 10/22/23 Allergies Allergy/AdvReac Type Severity Reaction Status Date / Time lisinopril AdvReac Cough Verified 09/30/23 08:02 Review of Systems ROS Statement: Those systems with pertinent positive or pertinent negative responses have been documented in the HPI. ROS Other: All systems not noted in ROS Statement are negative. Constitutional: Denies: fever Eyes: Denies: eye pain ENT: Denies: ear pain Respiratory: Reports: as per HPI, dyspnea Cardiovascular: Reports: edema. Denies: chest pain Past Medical History Past Medical History: Atrial Fibrillation, Heart Failure, COPD, GERD/Reflux, Osteoarthritis (OA), Renal Disease, Rheumatoid Arthritis (RA), Supraventricular Tachycardia (SVT), Thyroid Disorder Additional Past Medical History / Comment(s): Valvular heart disease with previous aortic valve replacement and a mitral valve repair, congestion heart fa ilure, Paroxysmal Afib, history of SVT, history of nonsustained VT, SOB with exertion, home O2 at 2L/NC usually prn but lately ATC, arthritis, RA several joints, current L elbow pain/swelling-had "injection", nephrolithiasis, hypothyroid, diverticular dx, UTI, iron deficiency anemia. 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 History of Any Multi-Drug Resistant Organisms: None Reported Past Surgical History: Coronary Bypass/CABG, Heart Catheterization, Hysterectomy, Joint Replacement, Orthopedic Surgery Additional Past Surgical History / Comment(s): Geoff total knees arthroplasty,lt hip arthroplasty, goiter removed 1962, partial thyroidectomy, cataracts removed with lens implants, REVERSE TOTAL RIGHT SHOULDER; Rotator cuff R shoulder, cervical fusion/injections, colonoscopy 2016(next after 5yr), MATTHEW, valve surg bill at [facility] 10/13/17 Prosthetic Aortic valve and mitral valve repair. Total abdominal hysterectomy in the 1980s. Past Anesthesia/Blood Transfusion Reactions: Postoperative Nausea & Vomiting (PONV) Past Psychological History: No Psychological Hx Reported Smoking Status: Former smoker - Past Family History Father Family Medical History: Cancer, Myocardial Infarction ([place]) Additional Family Medical History / Comment(s): in his 80's of a mi. Colon cancer. Mother Family Medical History: No Reported History Additional Family Medical History / Comment(s): age 88 . hx smoking. Daughter(s) Family Medical History: Cancer Additional Family Medical History / Comment(s): from vulvar cancer. General Exam Limitations: no limitations General appearance: alert, in no apparent distress Head exam: Present: normocephalic Eye exam: Present: normal appearance Neck exam: Present: normal inspection Respiratory exam: Present: decreased breath sounds Cardiovascular Exam: Present: regular rate, normal rhythm GI/Abdominal exam: Present: soft. Absent: tenderness Extremities exam: Present: pedal edema. Absent: calf tenderness Neurological exam: Present: alert Psychiatric exam: Present: normal affect, normal mood Skin exam: Present: normal color Course Vital Signs 11/01/23 11/01/23 11/01/23 09:03 09:05 09:30 Temperature 97.8 F Pulse Rate 69 64 Respiratory 22 18 18 Rate Blood Pressure 105/94 105/94 O2 Sat by Pulse 99 Oximetry 11/01/23 11/01/23 10:00 11:00 Temperature Pulse Rate 63 Respiratory 18 18 Rate Blood Pressure 106/74 108/79 O2 Sat by Pulse 98 Oximetry EKG Findings - EKG Results: EKG: interpreted by FABIOLAD (Nonspecific ST-T. Right axis.), normal QRS EKG shows: atrial fibrillation Medical Decision Making - Medical Decision Making Was pt. sent in by a medical professional or institution (, PA, MAORI PHYSIOTHERAPIST, urgent care, hospital, or [facility]...) When possible be specific @ -No Did you speak to anyone other than the patient for history (EMS, parent, family, police, friend...)? What history was obtained from this source @ -No Did you review nursing and triage notes (agree or disagree)? Why? @ -I reviewed and agree with nursing and triage notes Were old charts reviewed (outside hosp., previous admission, EMS record, old EKG, old radiological studies, urgent care reports/EKG's, [facility] records)? Report findings @ -Previous x-ray and blood work and admission reviewed Differential Diagnosis (chest pain, altered mental status, abdominal pain women, abdominal pain men, vaginal bleeding, weakness, fever, dyspnea, syncope, headache, dizziness, GI bleed, back pain, seizure, CVA, palpatations, mental health, musculoskeletal)? @ -Differential Dyspnea: Coronary syndrome, arrhythmia, tamponade, asthma, COPD, pulmonary embolism, pne umonia, pneumothorax, pulmonary effusion, anaphylaxis, diabetic ketoacidosis, flailed chest, pulmonary contusion, diaphragmatic rupture, anemia, neuromuscular, this is not meant to be an all-inclusive list. EKG interpreted by me (3pts min.). @ -As above X-rays interpreted by me (1pt min.). @ -Chest x-ray shows CHF CT interpreted by me (1pt min.). @ -None done U/S interpreted by me (1pt. min.). @ -None done What testing was considered but not performed or refused? (CT, X-rays, U/S, labs)? Why? @ -None What meds were considered but not given or refused? Why? @ -None Did you discuss the management of the patient with other professionals (professionals i.e. DrPal, PA, MAORI PHYSIOTHERAPIST, lab, RT, psych nurse, clinical social work therapist, community living instructor, teacher, state highway police officer, case mgr)? Give summary @ -Case discussed with Dr. Olson who will admit his Was smoking cessation discussed for >3mins.? @ -No Was critical care preformed (if so, how long)? @ -No Were there social determinants of health that impacted care today? How? (Homelessness, low income, unemployed, alcoholism, drug addiction, transportation, low edu. Level, literacy, decrease access to med. care, senior living, rehab)? @ -No Was there de-escalation of care discussed even if they declined (Discuss DNR or withdrawal of care, Hospice)? DNR status @ -No What co-morbidities impacted this encounter? (DM, HTN, Smoking, COPD, CAD, Cancer, CVA, ARF, Chemo, Hep., AIDS, mental health diagnosis, sleep apnea, morbid obesity)? @ -None Was patient admitted / discharged? Hospital course, mention meds given and route, prescriptions, significant lab abnormalities, going to OR and other pertinent info. @ -Patient reevaluated and feels a little bit better but still having shortness of breath. Patient would like to stay in the hospital. Case discussed with Dr. Olson who will admit his patient. Admission orders written. Undiagnosed new problem with uncertain prognosis? @ -No Drug Therapy requiring intensive monitoring for toxicity (Heparin, Nitro, In sulin, Cardizem)? @ -No Were any procedures done? @ -No Diagnosis/symptom? @ -CHF Acute, or Chronic, or Acute on Chronic? @ -Acute on chronic Uncomplicated (without systemic symptoms) or Complicated (systemic symptoms)? @ -Default Side effects of treatment? @ -No Exacerbation, Progression, or Severe Exacerbation? @ -Exacerbation Poses a threat to life or bodily function? How? (Chest pain, USA, CT, pneumonia, PE, COPD, DKA, ARF, appy, cholecystitis, CVA, Diverticulitis, Homicidal, Suicidal, threat to staff... and all critical care pts) @ -No - Lab Data Result diagrams: 11/01/23 09:19 11/01/23 09:19 Lab Results 11/01/23 11/01/23 11/01/23 Range/Units 09:19 09:19 09:19 WBC 7.5 (3.8-10.6) k/uL RBC 3.63 L (3.80-5.40) m/uL Hgb 10.0 L (11.4-16.0) gm/dL Hct 32.5 L (34.0-46.0) % MCV 89.4 (80.0-100.0) fL MCH 27.4 (25.0-35.0) pg MCHC 30.7 L (31.0-37.0) g/dL RDW 16.0 H (11.5-15.5) % Plt Count 240 (150-450) k/uL MPV 8.9 Neutrophils % 69 % Lymphocytes % 17 % Monocytes % 8 % Eosinophils % 2 % Basophils % 1 % Neutrophils # 5.2 (1.3-7.7) k/uL Lymphocytes # 1.3 (1.0-4.8) k/uL Monocytes # 0.6 (0-1.0) k/uL Eosinophils # 0.2 (0-0.7) k/uL Basophils # 0.1 (0-0.2) k/uL Hypochromasia Marked PT 11.3 (10.0-12.5) sec INR 1.0 (<1.2) APTT 25.8 (22.0-30.0) sec Sodium 139 (137-145) mmol/L Potassium 4.2 (3.5-5.1) mmol/L Chloride 105 (98-107) mmol/L Carbon Dioxide 25 (22-30) mmol/L Anion Gap 9 mmol/L BUN 23 H (7-17) mg/dL Creatinine 0.64 (0.52-1.04) mg/dL Est GFR (CKD-EPI)AfAm >90 (>60 ml/min/1.73 sqM) Est GFR (CKD-EPI)NonAf 85 (>60 ml/min/1.73 sqM) Glucose 105 H (74-99) mg/dL Plasma Lactic Acid Wilfred (0.7-2.0) mmol/L Calcium 9.0 (8.4-10.2) mg/dL Magnesium 2.0 (1.6-2.3) mg/dL Total Bilirubin 0.9 (0.2-1.3) mg/dL AST 35 (14-36) U/L ALT 22 (4-34) U/L Alkaline Phosphatase 145 H (38-126) U/L Troponin I (0.000-0.034) ng/mL NT-Pro-B Natriuret Pep 5430 pg/mL Total Protein 6.8 (6.3-8.2) g/dL Albumin 3.6 (3.5-5.0) g/dL 11/01/23 11/01/23 Range/Units 09:19 09:19 WBC (3.8-10.6) k/uL RBC (3.80-5.40) m/uL Hgb (11.4-16.0) gm/dL Hct (34.0-46.0) % MCV (80.0-100.0) fL MCH (25.0-35.0) pg MCHC (31.0-37.0) g/dL RDW (11.5-15.5) % Plt Count (150-450) k/uL MPV Neutrophils % % Lymphocytes % % Monocytes % % Eosinophils % % Basophils % % Neutrophils # (1.3-7.7) k/uL Lymphocytes # (1.0-4.8) k/uL Monocytes # (0-1.0) k/uL Eosinophils # (0-0.7) k/uL Basophils # (0-0.2) k/uL Hypochromasia PT (10.0-12.5) sec INR (<1.2) APTT (22.0-30.0) sec Sodium (137-145) mmol/L Potassium (3.5-5.1) mmol/L Chloride (98-107) mmol/L Carbon Dioxide (22-30) mmol/L Anion Gap mmol/L BUN (7-17) mg/dL Creatinine (0.52-1.04) mg/dL Est GFR (CKD-EPI)AfAm (>60 ml/min/1.73 sqM) Est GFR (CKD-EPI)NonAf (>60 ml/min/1.73 sqM) Glucose (74-99) mg/dL Plasma Lactic Acid Wilfred 1.5 (0.7-2.0) mmol/L Calcium (8.4-10.2) mg/dL Magnesium (1.6-2.3) mg/dL Total Bilirubin (0.2-1.3) mg/dL AST (14-36) U/L ALT (4-34) U/L Alkaline Phosphatase (38-126) U/L Troponin I <0.012 (0.000-0.034) ng/mL NT-Pro-B Natriuret Pep pg/mL Total Protein (6.3-8.2) g/dL Albumin (3.5-5.0) g/dL Disposition Clinical Impression: CHF exacerbation Disposition: ADMITTED IP TO THIS HOSP Is patient prescribed a controlled substance at d/c from ED?: No Referrals: Olya Olson MD [Primary Care Provider] - 1-2 days Time of Disposition: 12:25
[2023-11-01 09:46] LABS: ALT 22 U/L (4-34); AST 35 U/L (14-36); African American GFR (CKD) >90 (>60 ml/min/1.73 sqM); Albumin 3.6 g/dL (3.5-5.0); Alkaline Phosphatase 145 U/L (38-126); Anion Gap 9 mmol/L; Basophils # (A) 0.1 k/uL (0-0.2); Basophils % (A) 1 %; Blood Urea Nitrogen 23 mg/dL (7-17); Carbon Dioxide 25 mmol/L (22-30); Chloride 105 mmol/L (98-107); Eosinophils # (A) 0.2 k/uL (0-0.7); Eosinophils % (A) 2 %; Glucose 105 mg/dL (74-99); HCT 32.5 % (34.0-46.0); Hypochromasia Marked; Lymphocytes # (A) 1.3 k/uL (1.0-4.8); Lymphocytes % (A) 17 %; MCH 27.4 pg (25.0-35.0); MCHC 30.7 g/dL (31.0-37.0); MCV 89.4 fL (80.0-100.0); Mean Platelet Volume 8.9; Monocytes # (A) 0.6 k/uL (0-1.0); Monocytes % (A) 8 %; Neutrophils # (A) 5.2 k/uL (1.3-7.7); Neutrophils % (A) 69 %; Non-African American GFR(CKD) 85 (>60 ml/min/1.73 sqM); Platelet Count 240 k/uL (150-450); Potassium 4.2 mmol/L (3.5-5.1); RBC 3.63 m/uL (3.80-5.40); Sodium 139 mmol/L (137-145); Total Bilirubin 0.9 mg/dL (0.2-1.3); Total Protein 6.8 g/dL (6.3-8.2); WBC 7.5 k/uL (3.8-10.6)
[2023-11-01 09:54] LABS: NT-Pro-B-Type Natriuretic Pept 5430 pg/mL
[2023-11-01 09:55] LABS: Partial Thromboplastin Time 25.8 sec (22.0-30.0); Prothrombin Time 11.3 sec (10.0-12.5)
[2023-11-01] MEDS: FUROSEMIDE 10 MG/ML 4 ML VIAL IV STA (10:06)
--- NOTE | 2023-11-01 10:08 | XR ---
EXAMINATION TYPE: XR chest 2V DATE OF EXAM: 11/01/2023 COMPARISON: Chest x-ray October 19, 2023 HISTORY: Difficulty in breathing. TECHNIQUE: Frontal and lateral views of the chest are obtained. FINDINGS: Overlying sternal wires are redemonstrated. There is cardiomegaly again seen. Left atrial appendage clip and metallic aortic valve redemonstrated. There is mild to moderate central vascular c ongestion and likely small left pleural effusion redemonstrated. Surgical changes right shoulder is r edemonstrated. IMPRESSION: Suspect CHF exacerbation/fluid overload state similar to prior.
[2023-11-01] MEDS: NITROGLYCERIN OINT 1 INCH/GM PACKET TOPICAL SCH (13:21)
[2023-11-01] MEDS: FUROSEMIDE 10 MG/ML 4 ML VIAL IV SCH (13:22)
[2023-11-01] MEDS: ASPIRIN 325 MG TAB PO STA (13:22)
[2023-11-01] MEDS ORDERED: ALBUTEROL HFA INHALER INHALATION PRN (15:55)
[2023-11-01] MEDS ORDERED: BUMETANIDE 1 MG TAB PO SCH (16:00)
[2023-11-01] MEDS: METOPROLOL TARTRATE 50 MG TAB PO SCH (21:19)
[2023-11-02] MEDS: HYDROcodone/APAP 10-325MG 1 EACH TAB PO PRN (01:10)
[2023-11-02] MEDS ORDERED: ASPIRIN 325 MG TAB PO SCH (09:00)
[2023-11-02] MEDS: LEVOTHYROXINE 75 MCG TAB PO SCH (09:41)
[2023-11-02] MEDS: CHOLECALCIFEROL 125 MCG (5000 IU) TABLET PO SCH (09:41)
[2023-11-02] MEDS: ASCORBIC ACID 500 MG TAB PO SCH (09:41)
[2023-11-02] MEDS: ASPIRIN 81 MG PO SCH (09:41)
--- NOTE | 2023-11-02 10:06 | P.HPIM ---
History of Present Illness H&P Date: 11/01/23 Mirella San, she is an 78-year-old female who presented to [facility] emergency room with a chief complaint of worsening shortness of breath She was evaluated in the emergency room vital examination on presentation revealed a temperature of 97.8 pulse 69 respiration 22 blood pressure 105/94 pulse ox 99% on 3 L nasal cannula Laboratory data reveals a white blood count of 7.5 hemoglobin 10 platelet count 240 BUN 23 creatinine 0.64 BNP 5430 troponin 0.012 Testing in the emergency room revealed chest x-ray revealed CHF exacerbation with fluid overload EKG revealed atrial flutter Patient was admitted to medical floor for further evaluation and treatment Past Medical History Past Medical History: Atrial Fibrillation, Heart Failure, COPD, GERD/Reflux, Osteoarthritis (OA), Renal Disease, Rheumatoid Arthritis (RA), Supraventricular Tachycardia (SVT), Thyroid Disorder Additional Past Medical History / Comment(s): Valvular heart disease with previous aortic valve replacement and a mitral valve repair, congestion heart failure, Paroxysmal Afib, history of SVT, history of nonsustained VT, SOB with exertion, home O2 at 2L/NC usually prn but lately ATC, arthritis, RA several joints, current L elbow pain/swelling-had "injection", nephrolithiasis, hypothyroid, diverticular dx, UTI, iron deficiency anemia. 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 History of Any Multi-Drug Resistant Organisms: None Reported Past Surgical History: Coronary Bypass/CABG, Heart Catheterization, Hysterectomy, Joint Replacement, Orthopedic Surgery Additional Past Surgical History / Comment(s): Geoff total knees arthroplasty,lt hip arthroplasty, goiter removed 1962, partial thyroidectomy, cataracts removed with lens implants, REVERSE TOTAL RIGHT SHOULDER; Rotator cuff R shoulder, cervical fusion/injections, colonoscopy 2016(next after 5yr), MATTHEW, valve surgery at [facility] 10/13/17 Prosthetic Aortic valve and mitral valve repair. Total abdominal hysterectomy in the 1980s. Past Anesthesia/Blood Transfusion Reactions: Postoperative Nausea & Vomiting (PONV) Past Psychological History: No Psychological Hx Reported Smoking Status: Former smoker - Past Family History Father Family Medical History: Cancer, Myocardial Infarction ([place]) Additional Family Medical History / Comment(s): in his 80's of a mi. Colon cancer. Mother Family Medical History: No Reported History Additional Family Medical History / Comment(s): age 88 . hx smoking. Daughter(s) Family Medical History: Cancer Additional Family Medical History / Comment(s): from vulvar cancer. Medications and Allergies Home Medications Medication Instructions Recorded Confirmed Type Albuterol Sulfate [Proair Hfa] 2 puff INHALATION RT-Q6H PRN 07/28/19 11/01/23 History Ascorbic Acid [Vitamin C] 500 mg PO DAILY 05/08/21 11/01/23 History Cholecalciferol (Vitamin D3) 125 mcg PO DAILY 06/06/22 11/01/23 History [Vitamin D3 (125 MCG = 5,000 IU)] Ipratropium-Albuterol Nebulize 3 ml INHALATION RT-Q6H PRN 06/06/22 11/01/23 History [Duoneb 0.5 mg-3 mg/3 ml Soln] Levothyroxine Sodium [Synthroid] 150 mcg PO AC-BRKFST 30 Days #30 08/27/23 11/01/23 Rx tablet Metoprolol Tartrate [Lopressor] 50 mg PO BID 30 Days #60 tab 08/27/23 11/01/23 Rx HYDROcodone/APAP 10-325MG [[place] 1 tab PO Q8H PRN 3 Days #12 tab 09/14/23 11/01/23 Rx 10-325] Aspirin 81 mg PO DAILY tab 09/22/23 11/01/23 Rx Bumetanide [BUMEX] 1 mg PO BID@0900,1600 30 Days #60 10/22/23 11/01/23 Rx tab Allergies Allergy/AdvReac Type Severity Reaction Status Date / Time lisinopril AdvReac Cough Verified 11/01/23 14:51 Physical Exam Vitals: Vital Signs Temp Pulse Resp BP Pulse Ox 11/01/23 11:00 63 18 108/79 98 11/01/23 10:00 18 106/74 11/01/23 09:30 64 18 105/94 11/01/23 09:05 18 11/01/23 09:03 97.8 F 69 22 105/94 99 Intake and Output 10/31/23 11/01/23 11/01/23 22:59 06:59 14:59 Other: Weight 46.72 kg In general patient is alert and oriented x 3 in no distress HEENT head normocephalic and atraumatic Neck is supple no JVD no goiter no lymphadenopathy no carotid bruit Chest examination reveals a scattered crackles bilaterally no wheezing Cardiac exam reveals irregular heart sounds S1 and S2 no gallops with 2/6 systolic murmur in the left sternal border Abdomen is soft nontender no organomegaly with normal bowel sounds Extremity exam reveals no edema no cyanosis or clubbing Neurological examination reveals no gross focal deficits Results CBC & Chem 7: 11/01/23 09:19 11/01/23 09:19 Labs: Abnormal Lab Results - Last 24 Hours (Table) 11/01/23 11/01/23 Range/Units 09:19 09:19 RBC 3.63 L (3.80-5.40) m/uL Hgb 10.0 L (11.4-16.0) gm/dL Hct 32.5 L (34.0-46.0) % MCHC 30.7 L (31.0-37.0) g/dL RDW 16.0 H (11.5-15.5) % BUN 23 H (7-17) mg/dL Glucose 105 H (74-99) mg/dL Alkaline Phosphatase 145 H (38-126) U/L Assessment and Plan Plan: Acute exacerbation of systolic congestive heart failure Underlying history of nonischemic cardiomyopathy Underlying history of hypertension Underlying history of COPD Underlying history of hypothyroidism Underlying history of valvular heart disease with previous valve surgery, patient had history of mitral valve repair and history of aortic valve replacement Underlying history of atrial fibrillation Underlying history of pulmonary hypertension Underlying history of coronary artery disease with history of coronary artery bypass graft surgery Underlying history of osteoarthritis Underlying history of goiter with history of partial thyroidectomy At this time patient is admitted to telemetry floor She was started on IV Lasix Cardiology consultation was requested
--- NOTE | 2023-11-02 10:09 | P.PN ---
Subjective Progress Note Date: 11/02/23 Mirella San, she is an 78-year-old female who presented to [facility] emergency room with a chief complaint of worsening shortness of breath She was evaluated in the emergency room vital examination on presentation revealed a temperature of 97.8 pulse 69 respiration 22 blood pressure 105/94 pulse ox 99% on 3 L nasal cannula Laboratory data reveals a white blood count of 7.5 hemoglobin 10 platelet count 240 BUN 23 creatinine 0.64 BNP 5430 troponin 0.012 Testing in the emergency room revealed chest x-ray revealed CHF exacerbation with fluid overload EKG revealed atrial flutter Patient was admitted to medical floor for further evaluation and treatment On 11/02/2023 patient was seen and examined in the emergency room she is still awaiting bed on telemetry floor she is alert and oriented 3 in no apparent distress she states that her shortness of breath has mildly improved otherwise she denies any complaints there is no fever or chills no headache or dizziness no chest pain no cough no nausea or vomiting no abdominal pain no diarrhea and no urinary symptoms. Patient remains on IV Lasix 40 mg every 12 hours. Her vital examination reveals a temperature of 97.4 pulse 70 respirations 16 blood pressure 93/60 pulse ox 95% on 2 L nasal cannula Objective - Vital Signs Vital signs: Vital Signs Temp 97.4 F L 11/02/23 09:15 Pulse 70 11/02/23 09:15 Resp 16 11/02/23 09:15 BP 93/60 11/02/23 09:15 Pulse Ox 95 11/02/23 09:15 FiO2 Intake & Output 11/01/23 11/02/23 11/02/23 18:59 06:59 18:59 Intake Total 50 Output Total 350 Balance -300 Weight 46.72 kg Intake: Oral 50 Output: Urine 350 Other: Voiding Method External Catheter External Catheter - Exam In general patient is alert and oriented x 3 in no distress HEENT head normocephalic and atraumatic Neck is supple no JVD no goiter no lymphadenopathy no carotid bruit Chest examination reveals a scattered crackles bilaterally no wheezing Cardiac exam reveals irregular heart sounds S1 and S2 no gallops with 2/6 systolic murmur in the left sternal border Abdomen is soft nontender no organomegaly with normal bowel sounds Extremity exam reveals no edema no cyanosis or clubbing Neurological examination reveals no gross focal deficits - Labs CBC & Chem 7: 11/01/23 09:19 11/01/23 09:19 Assessment and Plan Plan: Acute exacerbation of systolic congestive heart failure Underlying history of nonischemic cardiomyopathy Underlying history of hypertension Underlying history of COPD Underlying history of hypothyroidism Underlying history of valvular heart disease with previous valve surgery, patient had history of mitral valve repair and history of aortic valve replacement Underlying history of atrial fibrillation Underlying history of pulmonary hypertension Underlying history of coronary artery disease with history of coronary artery bypass graft surgery Underlying history of osteoarthritis Underlying history of goiter with history of partial thyroidectomy At this time patient is admitted to telemetry floor She was started on IV Lasix Cardiology consultation was requested
--- NOTE | 2023-11-02 14:24 | P.CRDCN ---
History of Present Illness Consult date: 11/02/23 Chief complaint: SOB History of present illness: This is a very pleasant 78-year-old female patient with a past medical history significant for permanent atrial fibrillation/flutter currently she is maintaining on oral anticoagulation with Coumadin as well as cardiomyopathy with EF around 35% based on echo from 2022 and also valvular heart disease status post mitral valve repair and aortic valve replacement and also heart failure. The patient is a somewhat poor historian. She was admitted to the hospital with increasing shortness of breath within the last few weeks with no associated pain in the chest and no lower extremities edema and no dizziness or lightheadedness and no feeling of heart racing or fluttering and no presyncope or syncope. No change in her weight. She is on Bumex as an outpatient and she stated that she has been compliant with her medications. The patient was diagnosed with heart failure and she was started on Lasix IV. She underwent further investigation in the hospital including an EKG and that showed atrial fibrillation/flutter with controlled heart rate. The chest x-ray showed finding consistent with heart failure with pulmonary vascular congestions. NT proBNP came in to be elevated. Troponin came in to be unremarkable. The GFR was above 60. Her hemoglobin was stable as well. The patient was on Coumadin as an outpatient. The patient is known to have chronic hypoxic respiratory failure on oxygen at home at 2 L and she has been requiring 2 L here in the hospital as well. The examination is remarkable for bilateral rhonchi with irregular rhythm and systolic murmur at the right and left upper sternal border with no edema was noted in the lower extremities. Assessment Heart failure related to systolic dysfunction Valvular heart disease as described above Severe pulmonary hypertension Atrial fibrillation which is permanent with controlled heart rate Cardiomyopathy as described above Plan Restart the patient back on Coumadin Agree about keeping the patient on the current dose of Lasix IV Monitor her kidney function and electrolytes No need to repeat the echocardiogram from August 2023 Follow-up with the patient Past Medical History Past Medical History: Atrial Fibrillation, Heart Failure, COPD, GERD/Reflux, Osteoarthritis (OA), Renal Disease, Rheumatoid Arthritis (RA), Supraventricular Tachycardia (SVT), Thyroid Disorder Additional Past Medical History / Comment(s): Valvular heart disease with pr evious aortic valve replacement and a mitral valve repair, congestion heart failure, Paroxysmal Afib, history of SVT, history of nonsustained VT, SOB with exertion, home O2 at 2L/NC usually prn but lately ATC, arthritis, RA several joints, current L elbow pain/swelling-had "injection", nephrolithiasis, hypothyroid, diverticular dx, UTI, iron deficiency anemia. PAST [employer] HISTORY: She has no history of STDs. History of Any Multi-Drug Resistant Organisms: None Reported Past Surgical History: Coronary Bypass/CABG, Heart Catheterization, Hysterectom y, Joint Replacement, Orthopedic Surgery Additional Past Surgical History / Comment(s): Geoff total knees arthroplasty,lt hip arthroplasty, goiter removed 1962, partial thyroidectomy, cataracts removed with lens implants, REVERSE TOTAL RIGHT SHOULDER; Rotator cuff R shoulder, cervical fusion/injections, colonoscopy 2017(next after 5yr), MATTHEW, valve surgery at [facility] 10/13/17 Prosthetic Aortic valve and mitral valve repair. Total abdominal hysterectomy in the 1980s. Past Anesthesia/Blood Transfusion Reactions: Postoperative Nausea & Vomiting (PONV) Past Psychological History: No Psychological Hx Reported Smoking Status: Former smoker - Past Family History Father Family Medical History: Cancer, Myocardial Infarction ([place]) Additional Family Medical History / Comment(s): in his 80's of a mi. Colon cancer. Mother Family Medical History: No Reported History Additional Family Medical History / Comment(s): age 88 . hx smoking. Daughter(s) Family Medical History: Cancer Additional Family Medical History / Comment(s): from vulvar cancer. Medications and Allergies Home Medications Medication Instructions Recorded Confirmed Type Albuterol Sulfate [Proair Hfa] 2 puff INHALATION RT-Q6H PRN 07/28/19 11/01/23 History Ascorbic Acid [Vitamin C] 500 mg PO DAILY 05/08/21 11/01/23 History Cholecalciferol (Vitamin D3) 125 mcg PO DAILY 06/06/22 11/01/23 History [Vitamin D3 (125 MCG = 5,000 IU)] Ipratropium-Albuterol Nebulize 3 ml INHALATION RT-Q6H PRN 06/06/22 11/01/23 History [Duoneb 0.5 mg-3 mg/3 ml Soln] Levothyroxine Sodium [Synthroid] 150 mcg PO AC-BRKFST 30 Days #30 08/27/23 11/01/23 Rx tablet Metoprolol Tartrate [Lopressor] 50 mg PO BID 30 Days #60 tab 08/27/23 11/01/23 Rx HYDROcodone/APAP 10-325MG [[place] 1 tab PO Q8H PRN 3 Days #12 tab 09/14/23 11/01/23 Rx 10-325] Aspirin 81 mg PO DAILY tab 09/22/23 11/01/23 Rx Bumetanide [BUMEX] 1 mg PO BID@0900,1600 30 Days #60 10/22/23 11/01/23 Rx tab Warfarin [Coumadin] 2.5 mg PO DAILY 11/02/23 11/02/23 History Allergies Allergy/AdvReac Type Severity Reaction Status Date / Time lisinopril AdvReac Cough Verified 11/01/23 14:51 Physical Exam Vitals: Vital Signs Temp Pulse Pulse Pulse Resp BP BP 11/02/23 12:56 97.7 F 86 14 104/67 11/02/23 09:15 97.4 F L 70 16 93/60 11/02/23 08:51 11/02/23 06:20 11/02/23 01:49 97.3 F L 61 16 11/01/23 20:00 97.7 F 67 18 11/01/23 17:30 97.9 F 69 69 16 11/01/23 16:00 84 21 100/70 11/01/23 15:00 77 18 104/76 BP Pulse Ox 11/02/23 12:56 97 11/02/23 09:15 95 11/02/23 08:51 96 11/02/23 06:20 90/57 11/02/23 01:49 98/56 99 11/01/23 20:00 103/61 97 11/01/23 17:30 103/66 99 11/01/23 16:00 100 11/01/23 15:00 98 Intake and Output 11/01/23 11/02/23 11/02/23 22:59 06:59 14:59 Intake Total 50 Output Total 250 100 Balance -250 -50 Intake: Oral 50 Output: Urine 250 100 Other: Voiding Method External Catheter External Catheter Results 11/01/23 09:19 11/01/23 09:19 Current Medications Generic Name Dose Route Start Last Admin Trade Name Freq PRN Reason Stop Dose Admin Hydrocodone Bitart/Acetaminophen 1 each 11/01/23 15:55 11/02/23 09:40 Hydrocodone/Apap 10-325mg 1 Each Tab PO 1 each Q8H PRN Administration Pain Albuterol/Ipratropium 3 ml 11/01/23 15:55 Ipratropium-Albuterol 3 Ml Neb INHALATION RT-Q6H PRN Shortness Of Breath Ascorbic Acid 500 mg 11/02/23 09:00 11/02/23 09:41 Ascorbic Acid 500 Mg Tab PO 500 mg DAILY CARLOS Administration Aspirin 81 mg 11/02/23 09:00 11/02/23 09:41 Aspirin 81 Mg PO 81 mg DAILY CARLOS Administration Cholecalciferol 125 mcg 11/02/23 09:00 11/02/23 09:41 Cholecalciferol 125 Mcg (5000 Iu) Tablet PO 125 mcg DAILY CARLOS Administration Furosemide 40 mg 11/01/23 12:30 11/02/23 13:24 Furosemide 10 Mg/Ml 4 Ml Vial IV 40 mg Q12H CARLOS Administration Levothyroxine Sodium 150 mcg 11/02/23 07:30 11/02/23 09:41 Levothyroxine 75 Mcg Tab PO 150 mcg AC-BRKFST CARLOS Administration Metoprolol Tartrate 50 mg 11/01/23 21:00 11/02/23 09:41 Metoprolol Tartrate 50 Mg Tab PO 50 mg BID CARLOS Administration Intake and Output 11/01/23 11/02/23 11/02/23 22:59 06:59 14:59 Intake Total 50 Output Total 250 100 Balance -250 -50 Intake: Oral 50 Output: Urine 250 100 Other: Voiding Method External Catheter External Catheter 11/01/23 09:19 11/01/23 09:19
[2023-11-02] MEDS: ONDANSETRON 4 MG/2 ML VIAL IVP PRN (15:11)
[2023-11-02 15:27] LABS: INR 1.2 (<1.2); Prothrombin Time 12.3 sec (10.0-12.5)
[2023-11-02] MEDS: WARFARIN 2.5 MG TAB PO SCH (18:13)
[2023-11-03] MEDS: IPRATROPIUM-ALBUTEROL 3 ML NEB INHALATION PRN (09:00)
[2023-11-03 09:30] LABS: INR 1.1 (<1.2); Prothrombin Time 11.4 sec (10.0-12.5)
[2023-11-03 09:32] LABS: Anisocytosis Slight; HCT 33.9 % (34.0-46.0); HGB 10.4 gm/dL (11.4-16.0); Hypochromasia Marked; MCH 27.6 pg (25.0-35.0); MCHC 30.7 g/dL (31.0-37.0); MCV 89.7 fL (80.0-100.0); Platelet Count 247 k/uL (150-450); RBC 3.78 m/uL (3.80-5.40); WBC 5.8 k/uL (3.8-10.6)
[2023-11-03 09:34] LABS: ALT 17 U/L (4-34); AST 26 U/L (14-36); African American GFR (CKD) 83 (>60 ml/min/1.73 sqM); Albumin 3.4 g/dL (3.5-5.0); Alkaline Phosphatase 123 U/L (38-126); Anion Gap 6 mmol/L; Blood Urea Nitrogen 20 mg/dL (7-17); Calcium 8.4 mg/dL (8.4-10.2); Carbon Dioxide 37 mmol/L (22-30); Chloride 96 mmol/L (98-107); Glucose 83 mg/dL (74-99); Non-African American GFR(CKD) 72 (>60 ml/min/1.73 sqM); Potassium 3.5 mmol/L (3.5-5.1); Sodium 139 mmol/L (137-145); Total Bilirubin 0.8 mg/dL (0.2-1.3); Total Protein 6.6 g/dL (6.3-8.2)
--- NOTE | 2023-11-03 09:37 | P.PN ---
Subjective Progress Note Date: 11/03/23 Mirella San, she is an 78-year-old female who presented to [facility] emergency room with a chief complaint of worsening shortness of breath She was evaluated in the emergency room vital examination on presentation revealed a temperature of 97.8 pulse 69 respiration 22 blood pressure 105/94 pulse ox 99% on 3 L nasal cannula Laboratory data reveals a white blood count of 7.5 hemoglobin 10 platelet count 240 BUN 23 creatinine 0.64 BNP 5430 troponin 0.012 Testing in the emergency room revealed chest x-ray revealed CHF exacerbation with fluid overload EKG revealed atrial flutter Patient was admitted to medical floor for further evaluation and treatment On 11/02/2023 patient was seen and examined in the emergency room she is still awaiting bed on telemetry floor she is alert and oriented 3 in no apparent distress she states that her shortness of breath has mildly improved otherwise she denies any complaints there is no fever or chills no headache or dizziness no chest pain no cough no nausea or vomiting no abdominal pain no diarrhea and no urinary symptoms. Patient remains on IV Lasix 40 mg every 12 hours. Her vital examination reveals a temperature of 97.4 pulse 70 respirations 16 blood pressure 93/60 pulse ox 95% on 2 L nasal cannula On 11/03/2023 patient was seen and examined, on the medical floor, she is alert and oriented 3 in no apparent distress, she is still complaining of shortness of breath, she is also complaining of bilateral feet pain, otherwise she denies any complaints there is no fever or chills no headache or dizziness no chest pain, m no palpitation no cough no nausea or vomiting no diarrhea and no urinary symptoms. At this time will consult podiatry for toenail management, as patient has severe onychomycosis time is 10 with a very long toenails on top of severe toe deformity due to arthritis. Objective - Vital Signs Vital signs: Vital Signs Temp 97.4 F L 11/03/23 02:00 Pulse 79 11/03/23 02:00 Resp 16 11/03/23 02:00 BP 94/59 11/03/23 06:30 Pulse Ox 97 11/03/23 02:00 FiO2 Intake & Output 11/02/23 11/03/23 11/03/23 18:59 06:59 18:59 Intake Total 250 Output Total 1100 Balance -850 Intake: Oral 250 Output: Urine 1100 Other: Voiding Method External Catheter External Catheter # Voids 1 1 - Exam In general patient is alert and oriented x 3 in no distress HEENT head normocephalic and atraumatic Neck is supple no JVD no goiter no lymphadenopathy no carotid bruit Chest examination reveals a scattered crackles bilaterally no wheezing Cardiac exam reveals irregular heart sounds S1 and S2 no gallops with 2/6 systolic murmur in the left sternal border Abdomen is soft nontender no organomegaly with normal bowel sounds Extremity exam reveals no edema no cyanosis or clubbing Neurological examination reveals no gross focal deficits - Labs CBC & Chem 7: 11/03/23 08:10 11/03/23 08:10 Labs: Abnormal Lab Results - Last 24 Hours (Table) 11/02/23 Range/Units 14:49 INR 1.2 H (<1.2) Assessment and Plan Plan: Acute exacerbation of systolic congestive heart failure Underlying history of nonischemic cardiomyopathy Underlying history of hypertension Underlying history of COPD Underlying history of hypothyroidism Underlying history of valvular heart disease with previous valve surgery, patient had history of mitral valve repair and history of aortic valve replacement Underlying history of atrial fibrillation Underlying history of pulmonary hypertension Underlying history of coronary artery disease with history of coronary artery bypass graft surgery Underlying history of osteoarthritis Underlying history of goiter with history of partial thyroidectomy At this time patient is admitted to telemetry floor She was started on IV Lasix Cardiology consultation was requested
[2023-11-03] MEDS: MIDODRINE 5 MG TAB PO SCH (09:39)
[2023-11-03] MEDS: METOPROLOL TARTRATE 25 MG TAB PO SCH (10:45)
--- NOTE | 2023-11-03 11:14 | XR ---
EXAMINATION TYPE: XR chest 1V DATE OF EXAM: 11/03/2023 COMPARISON: 11/01/2023 HISTORY: 78-year-old female CHF TECHNIQUE: Single frontal view of the chest is obtained. FINDINGS: Reverse right shoulder blastic. Median sternotomy wires are present with prosthetic aortic valve. Atherosclerotic calcifications throughout the aorta. Moderate cardiomegaly. Diffuse interstit ial densities and patchy bibasilar opacities persist. IMPRESSION: Similar interstitial lung disease, likely interstitial pulmonary edema. Similar retrocar diac opacity probably combination of pleural effusion with adjacent atelectasis and/or consolidation.
[2023-11-03 11:54] LABS: Band Neutrophils % 1 %; Basophils # (M) 0.06 k/uL (0-0.2); Eosinophils # (M) 0.23 k/uL (0-0.7); Lymphocytes # (M) 1.57 k/uL (1.0-4.8); Monocytes # (M) 0.58 k/uL (0-1.0); Myelocytes # (M) 0.06 k/uL (0); Myelocytes % 1 %; Neutrophils % (M) 58 %; Nucleated Red Blood Cells 0 /100 WBC (0-0); Total Cells Counted 200
--- NOTE | 2023-11-03 14:03 | P.PN ---
Subjective Progress Note Date: 11/03/23 Chief complaint: SOB History of present illness: This is a very pleasant 78-year-old female patient with a past medical history significant for permanent atrial fibrillation/flutter currently she is maintaining on oral anticoagulation with Coumadin as well as cardiomyopathy with EF around 35% based on echo from 2022 and also valvular heart disease status post mitral valve repair and aortic valve replacement and also heart failure. The patient is a somewhat poor historian. She was admitted to the hospital with increasing shortness of breath within the last few weeks with no associated pain in the chest and no lower extremities edema and no dizziness or lightheadedness and no feeling of heart racing or fluttering and no presyncope or syncope. No change in her weight. She is on Bumex as an outpatient and she stated that she has been compliant with her medications. The patient was diagnosed with heart failure and she was started on Lasix IV. She underwent further investigation in the hospital including an EKG and that showed atrial fibrillation/flutter with controlled heart rate. The chest x-ray showed finding consistent with heart failure with pulmonary vascular congestions. NT proBNP came in to be elevated. Troponin came in to be unremarkable. The GFR was above 60. Her hemoglobin was stable as well. The patient was on Coumadin as an outpatient. The patient is known to have chronic hypoxic respiratory failure on oxygen at home at 2 L and she has been requiring 2 L here in the hospital as well. The examination is remarkable for bilateral rhonchi with irregular rhythm and systolic murmur at the right and left upper sternal border with no edema was noted in the lower extremities. 3/4 Patient has been maintained on IV Lasix 40 mg every 12 hours. Blood pressures are soft this morning and Lopressor will be decreased she is also bradycardic and midodrine added. Blood pressure 86/51, heart rate 62, pulse ox 98% on 3 L nasal cannula. Repeat blood work reveals WBC 5.8, hemoglobin 10.4. Sodium 139, potassium 3.5, CO2 37, BUN 20 creatinine 0.79. Patient is a negative fluid balance of 850 mL. The examination is remarkable for bilateral rhonchi with irregular rhythm and systolic murmur at the right and left upper sternal border with no edema was noted in the lower extremities. 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 Nurse practitioner note has been reviewed, I agree with documented findings and plan of care. Patient was seen and examined. Objective - Vital Signs Vital signs: Vital Signs Temp 97.9 F 11/03/23 07:40 Pulse 62 11/03/23 07:40 Resp 14 11/03/23 07:40 BP 86/51 11/03/23 07:40 Pulse Ox 98 11/03/23 07:40 FiO2 Intake & Output 11/02/23 11/03/23 11/03/23 18:59 06:59 18:59 Intake Total 250 Output Total 1100 Balance -850 Intake: Oral 250 Output: Urine 1100 Other: Voiding Method External Catheter External Catheter Toilet Bedside Commode Diaper Incontinent External Catheter # Voids 1 1 - Labs CBC & Chem 7: 11/03/23 08:10 11/03/23 08:10 Labs: Abnormal Lab Results - Last 24 Hours (Table) 11/02/23 Range/Units 14:49 INR 1.2 H (<1.2)
[2023-11-03 14:52] VITALS: BMI 20.1
[2023-11-03] MEDS: WARFARIN 3 MG TAB PO ONE (17:40)
--- NOTE | 2023-11-04 09:38 | P.PN ---
Subjective Progress Note Date: 11/04/23 Mirella San, she is an 78-year-old female who presented to [facility] emergency room with a chief complaint of worsening shortness of breath She was evaluated in the emergency room vital examination on presentation revealed a temperature of 97.8 pulse 69 respiration 22 blood pressure 105/94 pulse ox 99% on 3 L nasal cannula Laboratory data reveals a white blood count of 7.5 hemoglobin 10 platelet count 240 BUN 23 creatinine 0.64 BNP 5430 troponin 0.012 Testing in the emergency room revealed chest x-ray revealed CHF exacerbation with fluid overload EKG revealed atrial flutter Patient was admitted to medical floor for further evaluation and treatment On 11/02/2023 patient was seen and examined in the emergency room she is still awaiting bed on telemetry floor she is alert and oriented 3 in no apparent distress she states that her shortness of breath has mildly improved otherwise she denies any complaints there is no fever or chills no headache or dizziness no chest pain no cough no nausea or vomiting no abdominal pain no diarrhea and no urinary symptoms. Patient remains on IV Lasix 40 mg every 12 hours. Her vital examination reveals a temperature of 97.4 pulse 70 respirations 16 blood pressure 93/60 pulse ox 95% on 2 L nasal cannula On 11/03/2023 patient was seen and examined, on the medical floor, she is alert and oriented 3 in no apparent distress, she is still complaining of shortness of breath, she is also complaining of bilateral feet pain, otherwise she denies any complaints there is no fever or chills no headache or dizziness no chest pain, m no palpitation no cough no nausea or vomiting no diarrhea and no urinary symptoms. At this time will consult podiatry for toenail management, as patient has severe onychomycosis time is 10 with a very long toenails on top of severe toe deformity due to arthritis. On 11/04/2023 patient's alert and oriented 3. Patient maintained on IV Lasix. Ever currently pending patient maintained on Coumadin. Awaiting podiatry input. Current vital signs temp 98.4, heart rate 77, respiratory rate 17, blood pres sure 90/52 with pulse ox of 97% on 3 L. Patient denies chest pain. Patient reports minimum shortness breath. Patient denies nausea vomiting or diarrhea. Patient denies any urinary burning or frequency Objective - Vital Signs Vital signs: Vital Signs Temp 98.4 F 11/04/23 07:00 Pulse 77 11/04/23 07:00 Resp 17 11/04/23 07:00 BP 90/52 11/04/23 07:00 Pulse Ox 97 11/04/23 07:57 FiO2 Intake & Output 11/03/23 11/04/23 11/04/23 18:59 06:59 18:59 Intake Total 590 120 Output Total 350 900 Balance 240 -900 120 Weight 46.72 kg 47.899 kg Intake: Oral 590 120 Output: Urine 350 900 Other: Voiding Method Toilet External Catheter Bedside Commode Diaper Incontinent External Catheter - Exam In general patient is alert and oriented x 3 in no distress HEENT head normocephalic and atraumatic Neck is supple no JVD no goiter no lymphadenopathy no carotid bruit Chest examination reveals a scattered crackles bilaterally no wheezing Cardiac exam reveals irregular heart sounds S1 and S2 no gallops with 2/6 sys tolic murmur in the left sternal border Abdomen is soft nontender no organomegaly with normal bowel sounds Extremity exam reveals no edema no cyanosis or clubbing Neurological examination reveals no gross focal deficits - Labs CBC & Chem 7: 11/03/23 08:10 11/03/23 08:10 Labs: Abnormal Lab Results - Last 24 Hours (Table) 11/03/23 Range/Units 08:10 Myelocytes # (Manual) 0.06 H (0) k/uL Assessment and Plan Plan: Acute exacerbation of systolic congestive heart failure Underlying history of nonischemic cardiomyopathy Underlying history of hypertension Underlying history of COPD Underlying history of hypothyroidism Underlying history of valvular heart disease with previous valve surgery, patient had history of mitral valve repair and history of aortic valve replace ment Underlying history of atrial fibrillation Underlying history of pulmonary hypertension Underlying history of coronary artery disease with history of coronary artery bypass graft surgery Underlying history of osteoarthritis Underlying history of goiter with history of partial thyroidectomy At this time patient is admitted to telemetry floor She was started on IV Lasix Cardiology consultation was requested Podiatry service is consulted
[2023-11-04 11:19] LABS: Anisocytosis Slight; Basophils # (A) 0.1 k/uL (0-0.2); Basophils % (A) 1 %; Eosinophils # (A) 0.3 k/uL (0-0.7); Eosinophils % (A) 4 %; HCT 32.7 % (34.0-46.0); Hypochromasia Marked; Lymphocytes # (A) 1.2 k/uL (1.0-4.8); Lymphocytes % (A) 15 %; MCH 27.6 pg (25.0-35.0); MCHC 30.7 g/dL (31.0-37.0); Mean Platelet Volume 7.9; Monocytes # (A) 0.5 k/uL (0-1.0); Monocytes % (A) 6 %; Neutrophils # (A) 5.6 k/uL (1.3-7.7); Neutrophils % (A) 72 %; Platelet Count 245 k/uL (150-450); RBC 3.64 m/uL (3.80-5.40); RDW 16.1 % (11.5-15.5); WBC 7.8 k/uL (3.8-10.6)
[2023-11-04 11:24] LABS: INR 1.1 (<1.2); Prothrombin Time 12.3 sec (10.0-12.5)
[2023-11-04 11:32] LABS: ALT 16 U/L (4-34); AST 24 U/L (14-36); African American GFR (CKD) 78 (>60 ml/min/1.73 sqM); Albumin 3.4 g/dL (3.5-5.0); Alkaline Phosphatase 136 U/L (38-126); Blood Urea Nitrogen 19 mg/dL (7-17); Calcium 8.5 mg/dL (8.4-10.2); Chloride 93 mmol/L (98-107); Glucose 120 mg/dL (74-99); Non-African American GFR(CKD) 68 (>60 ml/min/1.73 sqM); Potassium 3.3 mmol/L (3.5-5.1); Sodium 138 mmol/L (137-145); Total Bilirubin 0.8 mg/dL (0.2-1.3); Total Protein 6.6 g/dL (6.3-8.2)
[2023-11-04 11:37] LABS: Anion Gap 10 mmol/L
[2023-11-04 11:43] LABS: Carbon Dioxide 35 mmol/L (22-30)
--- NOTE | 2023-11-04 11:57 | P.PN ---
Subjective Progress Note Date: 11/04/23 Chief complaint: SOB History of present illness: This is a very pleasant 78-year-old female patient with a past medical history significant for permanent atrial fibrillation/flutter currently she is maintaining on oral anticoagulation with Coumadin as well as cardiomyopathy with EF around 35% based on echo from 2022 and also valvular heart disease status post mitral valve repair and aortic valve replacement and also heart failure. The patient is a somewhat poor historian. She was admitted to the hospital with increasing shortness of breath within the last few weeks with no associated pain in the chest and no lower extremities edema and no dizziness or lightheadedness and no feeling of heart racing or fluttering and no presyncope or syncope. No change in her weight. She is on Bumex as an outpatient and she stated that she has been compliant with her medications. The patient was diagnosed with heart failure and she was started on Lasix IV. She underwent further investigation in the hospital including an EKG and that showed atrial fibrillation/flutter with controlled heart rate. The chest x-ray showed finding consistent with heart failure with pulmonary vascular congestions. NT proBNP came in to be elevated. Troponin came in to be unremarkable. The GFR was above 60. Her hemoglobin was stable as well. The patient was on Coumadin as an outpatient. The patient is known to have chronic hypoxic respiratory failure on oxygen at home at 2 L and she has been requiring 2 L here in the hospital as well. The examination is remarkable for bilateral rhonchi with irregular rhythm and systolic murmur at the right and left upper sternal border with no edema was noted in the lower extremities. 3/ Patient has been maintained on IV Lasix 40 mg every 12 hours. Blood pressures are soft this morning and Lopressor will be decreased she is also bradycardic and midodrine added. Blood pressure 86/51, heart rate 62, pulse ox 98% on 3 L nasal cannula. Repeat blood work reveals WBC 5.8, hemoglobin 10.4. Sodium 139, potassium 3.5, CO2 37, BUN 20 creatinine 0.79. Patient is a negative fluid balance of 850 mL. The examination is remarkable for bilateral rhonchi with irregular rhythm and systolic murmur at the right and left upper sternal border with no edema was noted in the lower extremities. 11/03 Patient has been maintained on IV Lasix 40 mg every 12 hours. Blood pressure 90/52, heart rate 77, pulse ox 97% on 3 L nasal cannula. Chest x-ray performed yesterday revealed similar interstitial lung disease likely interstitial pulmonary edema. Physical Examination Gen: This is a frail-appearing 78-year-old female in no acute distress LUNGS: Clear to auscultation. No wheezes or rhonchi. No intercostal retraction s. HEART: Regular rate and rhythm. Systolic murmur at the apex EXTREMITIES: No pedal edema. No calf tenderness. NEUROLOGICAL: Patient is awake, alert Assessment Acute on chronic heart failure related to systolic dysfunction Valvular heart disease as described above Severe pulmonary hypertension Atrial fibrillation which is permanent with controlled heart rate Cardiomyopathy as described above Plan Continue the patient back on Coumadin, pharmacy is dosing Transition IV Lasix to oral Bumex 1 mg twice daily which she takes at home Monitor her kidney function and electrolytes No need to repeat the echocardiogram from August 2023 Continue other cardiac medications Patient is cleared from cardiology for discharge and may follow-up with Dr. Flores in 1 week. Nurse practitioner note has been reviewed, I agree with documented findings and plan of care. Patient was seen and examined. Objective - Vital Signs Vital signs: Vital Signs Temp 98.4 F 11/04/23 07:00 Pulse 77 11/04/23 07:00 Resp 17 11/04/23 07:00 BP 90/52 11/04/23 07:00 Pulse Ox 97 11/04/23 07:57 FiO2 Intake & Output 11/03/23 11/04/23 11/04/23 18:59 06:59 18:59 Intake Total 590 120 Output Total 350 900 Balance 240 -900 120 Weight 46.72 kg 47.899 kg Intake: Oral 590 120 Output: Urine 350 900 Other: Voiding Method Toilet External Catheter External Catheter Bedside Commode Diaper Incontinent External Catheter - Labs CBC & Chem 7: 11/04/23 10:08 11/04/23 10:08 Labs: Abnormal Lab Results - Last 24 Hours (Table) 11/03/23 Range/Units 08:10 Myelocytes # (Manual) 0.06 H (0) k/uL
[2023-11-04] MEDS ORDERED: Potassium Replacement Protocol 1 EACH MISC MISCELLANE PRN (12:36)
[2023-11-04] MEDS: POTASSIUM CHLORIDE ER 20 MEQ TAB.ER PO SCH (13:17)
[2023-11-04] MEDS: BUMETANIDE 1 MG TAB PO SCH (16:34)
[2023-11-04] MEDS: WARFARIN 5 MG TAB PO ONE (17:17)
[2023-11-04] MEDS ORDERED: WARFARIN 2.5 MG TAB PO SCH (18:00)
[2023-11-04] MEDS: VITS A & D-WHITE PET-LANOLIN TUBE TOPICAL SCH (18:52)
[2023-11-05 07:36] LABS: Basophils # (A) 0.1 k/uL (0-0.2); Basophils % (A) 1 %; Eosinophils # (A) 0.3 k/uL (0-0.7); Eosinophils % (A) 4 %; HCT 31.9 % (34.0-46.0); Hypochromasia Marked; Lymphocytes # (A) 1.5 k/uL (1.0-4.8); Lymphocytes % (A) 22 %; MCH 27.8 pg (25.0-35.0); MCHC 31.3 g/dL (31.0-37.0); Monocytes # (A) 0.3 k/uL (0-1.0); Monocytes % (A) 5 %; Neutrophils # (A) 4.1 k/uL (1.3-7.7); Neutrophils % (A) 64 %; Platelet Count 229 k/uL (150-450); RBC 3.58 m/uL (3.80-5.40); WBC 6.5 k/uL (3.8-10.6)
[2023-11-05 07:42] LABS: INR 1.2 (<1.2); Prothrombin Time 12.6 sec (10.0-12.5)
[2023-11-05 07:48] LABS: ALT 14 U/L (4-34); AST 22 U/L (14-36); African American GFR (CKD) 80 (>60 ml/min/1.73 sqM); Albumin 3.3 g/dL (3.5-5.0); Alkaline Phosphatase 132 U/L (38-126); Blood Urea Nitrogen 19 mg/dL (7-17); Calcium 8.8 mg/dL (8.4-10.2); Chloride 94 mmol/L (98-107); Glucose 88 mg/dL (74-99); Non-African American GFR(CKD) 69 (>60 ml/min/1.73 sqM); Sodium 138 mmol/L (137-145); Total Bilirubin 0.9 mg/dL (0.2-1.3); Total Protein 6.5 g/dL (6.3-8.2)
[2023-11-05 07:54] LABS: Anion Gap 5 mmol/L; Carbon Dioxide 39 mmol/L (22-30)
[2023-11-05 08:03] VITALS: RESP 17
--- NOTE | 2023-11-05 11:12 | P.DS ---
Providers Date of admission: 11/01/23 12:25 Expected date of discharge: 11/05/23 Attending physician: Olya Olson Consults: 11/01/23 14:45 Consult Physician Routine Consulting Provider: Klaus Dove Consult Reason/Comments: CHF, a flutter Do you want consulting provider notified?: Yes 11/03/23 09:37 Consult Physician Routine Consulting Provider: Vidal Eastman Consult Reason/Comments: onychomycosis, toe nail cut Do you want consulting provider notified?: Yes Primary care physician: Olya Whitney [facility] Course: Discharge diagnosis Acute exacerbation of systolic congestive heart failure Underlying history of nonischemic cardiomyopathy Underlying history of hypertension Underlying history of COPD Underlying history of hypothyroidism Underlying history of valvular heart disease with previous valve surgery, patient had history of mitral valve repair and history of aortic valve replacement Underlying history of atrial fibrillation Underlying history of pulmonary hypertension Underlying history of coronary artery disease with history of coronary artery bypass graft surgery Underlying history of osteoarthritis Underlying history of goiter with history of partial thyroidectomy Hospital course Mirella San, she is an 78-year-old female who presented to [facility] emergency room with a chief complaint of worsening shortness of breath She was evaluated in the emergency room vital examination on presentation revealed a temperature of 97.8 pulse 69 respiration 22 blood pressure 105/94 pulse ox 99% on 3 L nasal cannula Laboratory data reveals a white blood count of 7.5 hemoglobin 10 platelet count 240 BUN 23 creatinine 0.64 BNP 5430 troponin 0.012 Testing in the emergency room revealed chest x-ray revealed CHF exacerbation with fluid overload EKG revealed atrial flutter Patient was admitted to medical floor for further evaluation and treatment On 11/02/2023 patient was seen and examined in the emergency room she is still awaiting bed on telemetry floor she is alert and oriented 3 in no apparent distress she states that her shortness of breath has mildly improved otherwise she denies any complaints there is no fever or chills no headache or dizziness no chest pain no cough no nausea or vomiting no abdominal pain no diarrhea and no urinary symptoms. Patient remains on IV Lasix 40 mg every 12 hours. Her vital examination reveals a temperature of 97.4 pulse 70 respirations 16 blood pressure 93/60 pulse ox 95% on 2 L nasal cannula On 11/03/2023 patient was seen and examined, on the medical floor, she is alert and oriented 3 in no apparent distress, she is still complaining of shortness of breath, she is also complaining of bilateral feet pain, otherwise she denies any complaints there is no fever or chills no headache or dizziness no chest pain, m no palpitation no cough no nausea or vomiting no diarrhea and no urinary symptoms. At this time will consult podiatry for toenail management, as patient has severe onychomycosis time is 10 with a very long toenails on top of severe toe deformity due to arthritis. On 11/04/2023 patient's alert and oriented 3. Patient maintained on IV Lasix. Ever currently pending patient maintained on Coumadin. Awaiting podiatry input. Current vital signs temp 98.4, heart rate 77, respiratory rate 17, blood pressure 90/52 with pulse ox of 97% on 3 L. Patient denies chest pain. Patient reports minimum shortness breath. Patient denies nausea vomiting or diarrhea. Patient denies any urinary burning or frequency On 11/05/2023 patient's alert and oriented 3. Patient cleared for discharge from cardiology standpoint. Coumadin was discontinued during previous admission. Discussed with cardiology services no need for Coumadin upon discharge. Also set all patient prescriptions to pharmacy at [facility] clinic patient that she is to have pick them up prior to discharge so that she has all medications at home and to take as prescribed. Also left message for case management to arrange home nursing to help prevent readmission to hospital. At this time patient denies chest pain or shortness of breath. Patient denies nausea vomiting or diarrhea. Patient denies any urinary burning or frequency Patient Condition at Discharge: Stable Plan - Discharge Summary New Discharge Prescriptions: New Bumetanide [BUMEX] 1 mg PO BID@0900,1600 30 Days #60 tab Metoprolol Tartrate [Lopressor] 25 mg PO BID 30 Days #60 tab Midodrine [ProAmatine] 5 mg PO AC-TID 30 Days #90 tab Continue Aspirin 81 mg PO DAILY 30 Days #30 tab Ascorbic Acid [Vitamin C] 500 mg PO DAILY 30 Days #30 tab Cholecalciferol (Vitamin D3) [Vitamin D3 (125 MCG = 5,000 IU)] 125 mcg PO DAILY 30 Days #30 cap HYDROcodone/APAP 10-325MG [[place] 10-325] 1 tab PO Q8H PRN 3 Days #12 tab PRN Reason: Pain Levothyroxine Sodium [Synthroid] 150 mcg PO AC-BRKFST 30 Days #30 tablet Changed Ipratropium-Albuterol Nebulize [Duoneb 0.5 mg-3 mg/3 ml Soln] 3 ml INHALATION Q6H PRN 30 Days #120 each PRN Reason: Shortness Of Breath Discontinued Albuterol Sulfate [Proair Hfa] 2 puff INHALATION RT-Q6H PRN PRN Reason: Shortness Of Breath Warfarin [Coumadin] 2.5 mg PO DAILY Metoprolol Tartrate [Lopressor] 50 mg PO BID 30 Days #60 tab Bumetanide [BUMEX] 1 mg PO BID@0900,1600 30 Days #60 tab Discharge Medication List HYDROcodone/APAP 10-325MG [[place] 10-325] 1 tab PO Q8H PRN 3 Days #12 tab 09/14/23 [Rx] Ascorbic Acid [Vitamin C] 500 mg PO DAILY 30 Days #30 tab 11/05/23 [Rx] Aspirin 81 mg PO DAILY 30 Days #30 tab 11/05/23 [Rx] Bumetanide [BUMEX] 1 mg PO BID@0900,1600 30 Days #60 tab 11/05/23 [Rx] Cholecalciferol (Vitamin D3) [Vitamin D3 (125 MCG = 5,000 IU)] 125 mcg PO DAILY 30 Days #30 cap 11/05/23 [Rx] Ipratropium-Albuterol Nebulize [Duoneb 0.5 mg-3 mg/3 ml Soln] 3 ml INHALATION Q6H PRN 30 Days #120 each 11/05/23 [Rx] Levothyroxine Sodium [Synthroid] 150 mcg PO AC-BRKFST 30 Days #30 tablet 11/05/23 [Rx] Metoprolol Tartrate [Lopressor] 25 mg PO BID 30 Days #60 tab 11/05/23 [Rx] Midodrine [ProAmatine] 5 mg PO AC-TID 30 Days #90 tab 11/05/23 [Rx] Follow up Appointment(s)/Referral(s): Alexx Flores MD [STAFF PHYSICIAN] - 1 Week Olya Olson MD [Primary Care Provider] - 1-2 days Activity/Diet/Wound Care/Special Instructions: Activity as tolerated Diet heart healthy All prescriptions were sent to pharmacy [facility] patient that she must brain picker prescriptions prior to discharge and take medications as prescribed Discharge Disposition: HOME WITH HOME HEALTH SERVICES
--- NOTE | 2023-11-05 13:13 | P.PN ---
Subjective Progress Note Date: 11/05/23 Chief complaint: SOB History of present illness: This is a very pleasant 78-year-old female patient with a past medical history significant for permanent atrial fibrillation/flutter currently she is maintaining on oral anticoagulation with Coumadin as well as cardiomyopathy with EF around 35% based on echo from 2022 and also valvular heart disease status post mitral valve repair and aortic valve replacement and also heart failure. The patient is a somewhat poor historian. She was admitted to the hospital with increasing shortness of breath within the last few weeks with no associated pain in the chest and no lower extremities edema and no dizziness or lightheadedness and no feeling of heart racing or fluttering and no presyncope or syncope. No change in her weight. She is on Bumex as an outpatient and she stated that she has been compliant with her medications. The patient was diagnosed with heart failure and she was started on Lasix IV. She underwent further investigation in the hospital including an EKG and that showed atrial fibrillation/flutter with controlled heart rate. The chest x-ray showed finding consistent with heart failure with pulmonary vascular congestions. NT proBNP came in to be elevated. Troponin came in to be unremarkable. The GFR was above 60. Her hemoglobin was stable as well. The patient was on Coumadin as an outpatient. The patient is known to have chronic hypoxic respiratory failure on oxygen at home at 2 L and she has been requiring 2 L here in the hospital as well. The examination is remarkable for bilateral rhonchi with irregular rhythm and systolic murmur at the right and left upper sternal border with no edema was noted in the lower extremities. 3/ Patient has been maintained on IV Lasix 40 mg every 12 hours. Blood pressures are soft this morning and Lopressor will be decreased she is also bradycardic and midodrine added. Blood pressure 86/51, heart rate 62, pulse ox 98% on 3 L nasal cannula. Repeat blood work reveals WBC 5.8, hemoglobin 10.4. Sodium 139, potassium 3.5, CO2 37, BUN 20 creatinine 0.79. Patient is a negative fluid balance of 850 mL. The examination is remarkable for bilateral rhonchi with irregular rhythm and systolic murmur at the right and left upper sternal border with no edema was noted in the lower extremities. 11/03 Patient has been maintained on IV Lasix 40 mg every 12 hours. Blood pressure 90/52, heart rate 77, pulse ox 97% on 3 L nasal cannula. Chest x-ray performed yesterday revealed similar interstitial lung disease likely interstitial pulmonary edema. 11/04 Blood pressure 93/53, heart rate in the 60s, pulse ox 100% on 3 L nasal cannula. Yesterday we transition IV Lasix to her home dose of Bumex. Patient was also started on midodrine 5 mg 3 times daily scheduled. Repeat blood work reveals hemoglobin of 10, creatinine 0.81, potassium 4, INR 1.2. Physical Examination Gen: This is a frail-appearing 78-year-old female in no acute distress LUNGS: Clear to auscultation. No wheezes or rhonchi. No intercostal retraction s. HEART: Regular rate and rhythm. Systolic murmur at the apex EXTREMITIES: No pedal edema. No calf tenderness. NEUROLOGICAL: Patient is awake, alert Assessment Acute on chronic heart failure related to systolic dysfunction Valvular heart disease as described above Severe pulmonary hypertension Atrial fibrillation which is permanent with controlled heart rate Cardiomyopathy as described above Plan Coumadin was discontinued during last hospitalization as patient has a history of sutured LA appendage Continue oral Bumex 1 mg twice daily which she takes at home Continue midodrine 5 mg 3 times daily Patient is cleared from cardiology for discharge and may follow-up with Dr. Flores in 1 week. Nurse practitioner note has been reviewed, I agree with documented findings and plan of care. Patient was seen and examined. Objective - Vital Signs Vital signs: Vital Signs Temp 97.7 F 11/05/23 07:00 Pulse 68 11/05/23 08:04 Resp 17 11/05/23 07:00 BP 93/53 11/05/23 07:00 Pulse Ox 100 11/05/23 07:56 FiO2 Intake & Output 11/04/23 11/05/23 11/05/23 18:59 06:59 18:59 Intake Total 1040 Output Total 1000 450 Balance 40 -450 Intake: Oral 1040 Output: Urine 1000 450 Other: Voiding Method External Catheter External Catheter External Catheter - Labs CBC & Chem 7: 11/05/23 07:09 11/05/23 07:09 Labs: Abnormal Lab Results - Last 24 Hours (Table) 11/04/23 11/04/23 11/05/23 Range/Units 10:08 10:08 07:09 RBC 3.64 L 3.58 L (3.80-5.40) m/uL Hgb 10.0 L 10.0 L (11.4-16.0) gm/dL Hct 32.7 L 31.9 L (34.0-46.0) % MCHC 30.7 L (31.0-37.0) g/dL RDW 16.1 H 16.0 H (11.5-15.5) % PT (10.0-12.5) sec INR (<1.2) Potassium 3.3 L (3.5-5.1) mmol/L Chloride 93 L (98-107) mmol/L Carbon Dioxide 35 H (22-30) mmol/L BUN 19 H (7-17) mg/dL Glucose 120 H (74-99) mg/dL Alkaline Phosphatase 136 H (38-126) U/L Albumin 3.4 L (3.5-5.0) g/dL 11/05/23 11/05/23 Range/Units 07:09 07:09 RBC (3.80-5.40) m/uL Hgb (11.4-16.0) gm/dL Hct (34.0-46.0) % MCHC (31.0-37.0) g/dL RDW (11.5-15.5) % PT 12.6 H (10.0-12.5) sec INR 1.2 H (<1.2) Potassium (3.5-5.1) mmol/L Chloride 94 L (98-107) mmol/L Carbon Dioxide 39 H (22-30) mmol/L BUN 19 H (7-17) mg/dL Glucose (74-99) mg/dL Alkaline Phosphatase 132 H (38-126) U/L Albumin 3.3 L (3.5-5.0) g/dL
[2023-11-05 15:39] VITALS: BP 91/57; PULSE 90; TEMP 97.5
[2023-11-05] MEDS ORDERED: WARFARIN 5 MG TAB PO ONE (18:00)
== END 2023-11-05 15:45 | disposition home health service (06) ==
LOC: EC 08:59 → 6NMEDSUR 12:25 → 1SOBS 11-02 13:32
PROVIDERS: ADMIT Internal Medicine; ATTEND Internal Medicine
DX: I11.0 Hypertensive heart disease with heart failure (principal); I50.21 Acute systolic (congestive) heart failure; E89.0 Postprocedural hypothyroidism; J44.9 Chronic obstructive pulmonary disease, unspecified; K21.9 Gastro-esophageal reflux disease without esophagitis; J96.11 Chronic respiratory failure with hypoxia; I27.20 Pulmonary hypertension, unspecified; I42.8 Other cardiomyopathies; I48.21 Permanent atrial fibrillation; I25.10 Atherosclerotic heart disease of native coronary artery without angina pectoris; M19.90 Unspecified osteoarthritis, unspecified site; E04.9 Nontoxic goiter, unspecified; Z87.891 Personal history of nicotine dependence; Z95.1 Presence of aortocoronary bypass graft; Z95.2 Presence of prosthetic heart valve; Z99.81 Dependence on supplemental oxygen; Z79.899 Other long term (current) drug therapy; Z79.890 Hormone replacement therapy; Z79.82 Long term (current) use of aspirin; Z79.84 Long term (current) use of oral hypoglycemic drugs; Z79.01 Long term (current) use of anticoagulants
CPT/HCPCS: 96376 ×4; 96374; 96375; 99285; 36415; 94640 ×3; 94760 ×3; 93005; 83880; 80053 ×4; 83605; 83735; 84484; 85025 ×4; 85610 ×5; 85730; 71045; 71046; G0378 ×6; J1940 ×4; J2405

== ENCOUNTER 2023-11-20 12:43 | Inpatient (IN) | payer MEDICARE, OTHER ==
--- NOTE | 2023-11-20 13:05 | ED ---
General Adult HPI - General Chief complaint: Shortness of Breath Stated complaint: DANIEL Time Seen by Provider: 11/20/23 12:55 Source: patient, EMS, RN notes reviewed, old records reviewed Mode of arrival: EMS Limitations: no limitations - History of Present Illness Initial comments: This is an 78-year-old female with a past medical history significant for COPD. Patient states she has had some intermittent episodes of difficulty breathing over the last couple weeks she states. Patient states she thought was a little worse states that she called the ambulance. According to EMS the patient had no wheezing but they did give her treatment and she stated she was feeling better. Patient was oxygenating at 95% on her normal 2 L when she arrived at the emergency department. Patient states she has had no fever chills or cough or patient denies chest pain or palpitations. Patient has abdominal pain patient has nausea vomiting diarrhea. - Related Data Home Medications Medication Instructions Recorded Confirmed Ipratropium-Albuterol Nebulize 3 ml INHALATION RT-Q6H PRN 11/20/23 11/20/23 [Duoneb 0.5 mg-3 mg/3 ml Soln] Levothyroxine Sodium [Synthroid] 150 mcg PO DAILY 11/20/23 11/20/23 Previous Rx's Medication Instructions Recorded HYDROcodone/APAP 10-325MG [[place] 1 tab PO Q8H PRN 3 Days #12 tab 09/14/23 10-325] Ascorbic Acid [Vitamin C] 500 mg PO DAILY 30 Days #30 tab 11/05/23 Aspirin 81 mg PO DAILY 30 Days #30 tab 11/05/23 Bumetanide [BUMEX] 1 mg PO BID@0900,1600 30 Days #60 11/05/23 tab Cholecalciferol (Vitamin D3) 125 mcg PO DAILY 30 Days #30 cap 11/05/23 [Vitamin D3 (125 MCG = 5,000 IU)] Metoprolol Tartrate [Lopressor] 25 mg PO BID 30 Days #60 tab 11/05/23 Midodrine [ProAmatine] 5 mg PO AC-TID 30 Days #90 tab 11/05/23 Allergies Allergy/AdvReac Type Severity Reaction Status Date / Time lisinopril AdvReac Cough Verified 11/20/23 14:27 Review of Systems ROS Statement: Those systems with pertinent positive or pertinent negative responses have been documented in the HPI. ROS Other: All systems not noted in ROS Statement are negative. Past Medical History Past Medical History: Atrial Fibrillation, Heart Failure, COPD, GERD/Reflux, Osteoarthritis (OA), Renal Disease, Rheumatoid Arthritis (RA), Supraventricular Tachycardia (SVT), Thyroid Disorder Additional Past Medical History / Comment(s): Valvular heart disease with previous aortic valve replacement and a mitral valve repair, congestion heart failure, Paroxysmal Afib, history of SVT, history of nonsustained VT, SOB with exertion, home O2 at 2L/NC usually prn but lately ATC, arthritis, RA several joints, current L elbow pain/swelling-had "injection", nephrolithiasis, hypothyroid, diverticular dx, UTI, iron deficiency anemia. 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 History of Any Multi-Drug Resistant Organisms: None Reported Past Surgical History: Coronary Bypass/CABG, Heart Catheterization, Hysterectomy, Joint Replacement, Orthopedic Surgery Additional Past Surgical History / Comment(s): Geoff total knees arthroplasty,lt hip arthroplasty, goiter removed 1962, partial thyroidectomy, cataracts removed with lens implants, REVERSE TOTAL RIGHT SHOULDER; Rotator cuff R shoulder, cervical fusion/injections, colonoscopy 2016(next after 5yr), MATTHEW, valve surgery at [facility] 10/13/17 Prosthetic Aortic valve and mitral valve repair. Total abdominal hysterectomy in the 1980s. Past Anesthesia/Blood Transfusion Reactions: Postoperative Nausea & Vomiting (PONV) Past Psychological History: No Psychological Hx Reported Smoking Status: Former smoker Past Alcohol Use History: None Reported Past Drug Use History: None Reported - Past Family History Father Family Medical History: Cancer, Myocardial Infarction ([place]) Additional Family Medical History / Comment(s): in his 80's of a mi. Colon cancer. Mother Family Medical History: No Reported History Additional Family Medical History / Comment(s): age 88 . hx smoking. Daughter(s) Family Medical History: Cancer Additional Family Medical History / Comment(s): from vulvar cancer. General Exam - General Exam Comments Initial Comments: GENERAL: Patient is well-developed and well-nourished. Patient is nontoxic and well- hydrated and is in no acute distress. ENT: Neck is soft and supple. No significant lymphadenopathy is noted. Oropharynx is clear. Moist mucous membranes. Neck has full range of motion without eliciting any pain. EYES: The sclera were anicteric and conjunctiva were pink and moist. Extraocular movements were intact and pupils were equal round and reactive to light. Eyelids were unremarkable. PULMONARY: Unlabored respirations. Good breath sounds bilaterally. Patient has some crackles in the bilateral bases CARDIOVASCULAR: There is a regular rate and rhythm without any murmurs gallops or rubs. ABDOMEN: Soft and nontender with normal bowel sounds. SKIN: Skin is clear with no lesions or rashes and otherwise unremarkable. NEUROLOGIC: Patient is alert and oriented x3. Cranial nerves II through XII are grossly intact. Motor and sensory are also intact. Normal speech, volume and content. Symmetrical smile. MUSCULOSKELETAL: Normal extremities with adequate strength and full range of motion. No lower extremity swelling or edema. No calf tenderness. LYMPHATICS: No significant lymphadenopathy is noted PSYCHIATRIC: Normal psychiatric evaluation. Limitations: no limitations Course Vital Signs 11/20/23 11/20/23 11/20/23 12:46 14:56 16:26 Temperature 97.5 F L 97.8 F Pulse Rate 77 73 64 Respiratory 20 20 18 Rate Blood Pressure 108/77 92/64 99/77 O2 Sat by Pulse 94 L 99 98 Oximetry Medical Decision Making - Medical Decision Making EKG is interpreted by myself EKG shows atrial flutter at about 95 bpm QRS is 93 QT interval is 167 QTc is 253. Patient's EKG shows no ST segment ovation or depression. Was pt. sent in by a medical professional or institution ([facility] [place], [facility] PROSTHODONTIST, urgent care, hospital, or shelter...) When possible be specific @ -No Did you speak to anyone other than the patient for history (EMS, parent, family, police, friend...)? What history was obtained from this source @ -No Did you review nursing and triage notes (agree or disagree)? Why? @ -I reviewed and agree with nursing and triage notes Were old charts reviewed (outside hosp., previous admission, EMS record, old EKG, old radiological studies, urgent care reports/EKG's, shelter records)? Report findings @ -I reviewed prior charts and prior lab work Differential Diagnosis (chest pain, altered mental status, abdominal pain women, abdominal pain men, vaginal bleeding, weakness, fever, dyspnea, syncope, headache, dizziness, GI bleed, back pain, seizure, CVA, palpatations, mental health, musculoskeletal)? @ -Differential Dyspnea: Coronary syndrome, arrhythmia, tamponade, asthma, COPD, pulmonary embolism, pneumonia, pneumothorax, pulmonary effusion, anaphylaxis, diabetic ketoacidosis, flailed chest, pulmonary contusion, diaphragmatic rupture, anemia, neuromuscular, this is not meant to be an all-inclusive list. EKG interpreted by me (3pts min.). @ -As above X-rays interpreted by me (1pt min.). @ -Chest x-ray shows mild pulmonary edema CT interpreted by me (1pt min.). @ -None done U/S interpreted by me (1pt. min.). @ -None done What testing was considered but not performed or refused? (CT, X-rays, U/S, labs)? Why? @ -None What meds were considered but not given or refused? Why? @ -None Did you discuss the management of the patient with other professionals (luigi michel i.e. , PA, MAXILLOFACIAL PROSTHODONTIST, lab, RT, psych nurse, social group worker, special education teaching assistant, teacher, health officer, caser in)? Give summary @ -I spoke with Dr. Olson he agreed to admit the patient I admitted the patient wrote admitting orders Was smoking cessation discussed for >3mins.? @ -No Was critical care preformed (if so, how long)? @ -No Were there social determinants of health that impacted care today? How? (Homelessness, low income, unemployed, alcoholism, drug addiction, transportation, low edu. Level, literacy, decrease access to med. care, custodial, rehab)? @ -No Was there de-escalation of care discussed even if they declined (Discuss DNR or withdrawal of care, Hospice)? DNR status @ -No What co-morbidities impacted this encounter? (DM, HTN, Smoking, COPD, CAD, Cancer, CVA, ARF, Chemo, Hep., AIDS, mental health diagnosis, sleep apnea, morbid obesity)? @ -None Was patient admitted / discharged? Hospital course, mention meds given and route, prescriptions, significant lab abnormalities, going to OR and other pertinent info. @ -Patient shows mild pulmonary edema and did not feel comfortable going home so spoke with Dr. Olson he agreed to admit the patient. Undiagnosed new problem with uncertain prognosis? @ -No Drug Therapy requiring intensive monitoring for toxicity (Heparin, Nitro, Insul in, Cardizem)? @ -No Were any procedures done? @ -No Diagnosis/symptom? @ -Mild pulmonary edema Acute, or Chronic, or Acute on Chronic? @ -Acute Uncomplicated (without systemic symptoms) or Complicated (systemic symptoms)? @ -Complicated Side effects of treatment? @ -No Exacerbation, Progression, or Severe Exacerbation? @ -No Poses a threat to life or bodily function? How? (Chest pain, [place], [place], pneumonia, PE, COPD, DKA, ARF, appy, cholecystitis, CVA, Diverticulitis, Homicidal, Suicidal, threat to staff... and all critical care pts) @ -No - Lab Data Result diagrams: 11/20/23 13:15 11/20/23 13:15 Lab Results 11/20/23 11/20/23 11/20/23 Range/Units 13:15 13:15 13:15 WBC 7.0 (3.8-10.6) k/uL RBC 3.57 L (3.80-5.40) m/uL Hgb 9.7 L (11.4-16.0) gm/dL Hct 32.3 L (34.0-46.0) % MCV 90.4 (80.0-100.0) fL MCH 27.2 (25.0-35.0) pg MCHC 30.0 L (31.0-37.0) g/dL RDW 16.4 H (11.5-15.5) % Plt Count 244 (150-450) k/uL MPV 8.1 Neutrophils % 66 % Lymphocytes % 22 % Monocytes % 5 % Eosinophils % 4 % Basophils % 1 % Neutrophils # 4.6 (1.3-7.7) k/uL Lymphocytes # 1.5 (1.0-4.8) k/uL Monocytes # 0.3 (0-1.0) k/uL Eosinophils # 0.3 (0-0.7) k/uL Basophils # 0.1 (0-0.2) k/uL Hypochromasia Marked Anisocytosis Slight PT 11.4 (10.0-12.5) sec INR 1.0 (<1.2) APTT 22.2 (22.0-30.0) sec Sodium (137-145) mmol/L Potassium (3.5-5.1) mmol/L Chloride (98-107) mmol/L Carbon Dioxide (22-30) mmol/L Anion Gap mmol/L BUN (7-17) mg/dL Creatinine (0.52-1.04) mg/dL Est GFR (CKD-EPI)AfAm (>60 ml/min/1.73 sqM) Est GFR (CKD-EPI)NonAf (>60 ml/min/1.73 sqM) Glucose (74-99) mg/dL Plasma Lactic Acid Wilfred (0.7-2.0) mmol/L Calcium (8.4-10.2) mg/dL Magnesium (1.6-2.3) mg/dL Total Bilirubin (0.2-1.3) mg/dL AST (14-36) U/L ALT (4-34) U/L Alkaline Phosphatase (38-126) U/L Troponin I (0.000-0.034) ng/mL NT-Pro-B Natriuret Pep pg/mL Total Protein (6.3-8.2) g/dL Albumin (3.5-5.0) g/dL Influenza Type A (PCR) Not Detected (Not Detectd) Influenza Type B (PCR) Not Detected (Not Detectd) RSV (PCR) Not Detected (Not Detectd) SARS-CoV-2 (PCR) Not Detected (Not Detectd) 11/20/23 11/20/23 11/20/23 Range/Units 13:15 13:15 13:15 WBC (3.8-10.6) k/uL RBC (3.80-5.40) m/uL Hgb (11.4-16.0) gm/dL Hct (34.0-46.0) % MCV (80.0-100.0) fL MCH (25.0-35.0) pg MCHC (31.0-37.0) g/dL RDW (11.5-15.5) % Plt Count (150-450) k/uL MPV Neutrophils % % Lymphocytes % % Monocytes % % Eosinophils % % Basophils % % Neutrophils # (1.3-7.7) k/uL Lymphocytes # (1.0-4.8) k/uL Monocytes # (0-1.0) k/uL Eosinophils # (0-0.7) k/uL Basophils # (0-0.2) k/uL Hypochromasia Anisocytosis PT (10.0-12.5) sec INR (<1.2) APTT (22.0-30.0) sec Sodium 138 (137-145) mmol/L Potassium 4.7 (3.5-5.1) mmol/L Chloride 106 (98-107) mmol/L Carbon Dioxide 24 (22-30) mmol/L Anion Gap 8 mmol/L BUN 19 H (7-17) mg/dL Creatinine 0.66 (0.52-1.04) mg/dL Est GFR (CKD-EPI)AfAm >90 (>60 ml/min/1.73 sqM) Est GFR (CKD-EPI)NonAf 84 (>60 ml/min/1.73 sqM) Glucose 93 (74-99) mg/dL Plasma Lactic Acid Wilfred 1.7 (0.7-2.0) mmol/L Calcium 8.9 (8.4-10.2) mg/dL Magnesium 1.8 (1.6-2.3) mg/dL Total Bilirubin 0.9 (0.2-1.3) mg/dL AST 30 (14-36) U/L ALT 15 (4-34) U/L Alkaline Phosphatase 122 (38-126) U/L Troponin I <0.012 (0.000-0.034) ng/mL NT-Pro-B Natriuret Pep pg/mL Total Protein 6.9 (6.3-8.2) g/dL Albumin 3.5 (3.5-5.0) g/dL Influenza Type A (PCR) (Not Detectd) Influenza Type B (PCR) (Not Detectd) RSV (PCR) (Not Detectd) SARS-CoV-2 (PCR) (Not Detectd) 11/20/23 Range/Units 13:15 WBC (3.8-10.6) k/uL RBC (3.80-5.40) m/uL Hgb (11.4-16.0) gm/dL Hct (34.0-46.0) % MCV (80.0-100.0) fL MCH (25.0-35.0) pg MCHC (31.0-37.0) g/dL RDW (11.5-15.5) % Plt Count (150-450) k/uL MPV Neutrophils % % Lymphocytes % % Monocytes % % Eosinophils % % Basophils % % Neutrophils # (1.3-7.7) k/uL Lymphocytes # (1.0-4.8) k/uL Monocytes # (0-1.0) k/uL Eosinophils # (0-0.7) k/uL Basophils # (0-0.2) k/uL Hypochromasia Anisocytosis PT (10.0-12.5) sec INR (<1.2) APTT (22.0-30.0) sec Sodium (137-145) mmol/L Potassium (3.5-5.1) mmol/L Chloride (98-107) mmol/L Carbon Dioxide (22-30) mmol/L Anion Gap mmol/L BUN (7-17) mg/dL Creatinine (0.52-1.04) mg/dL Est GFR (CKD-EPI)AfAm (>60 ml/min/1.73 sqM) Est GFR (CKD-EPI)NonAf (>60 ml/min/1.73 sqM) Glucose (74-99) mg/dL Plasma Lactic Acid Wilfred (0.7-2.0) mmol/L Calcium (8.4-10.2) mg/dL Magnesium (1.6-2.3) mg/dL Total Bilirubin (0.2-1.3) mg/dL AST (14-36) U/L ALT (4-34) U/L Alkaline Phosphatase (38-126) U/L Troponin I (0.000-0.034) ng/mL NT-Pro-B Natriuret Pep 4070 pg/mL Total Protein (6.3-8.2) g/dL Albumin (3.5-5.0) g/dL Influenza Type A (PCR) (Not Detectd) Influenza Type B (PCR) (Not Detectd) RSV (PCR) (Not Detectd) SARS-CoV-2 (PCR) (Not Detectd) Disposition Clinical Impression: Pulmonary edema Disposition: ADMITTED IP TO THIS HOSP Referrals: None,Stated [REFERRING] - 1-2 days Time of Disposition: 18:00
[2023-11-20 13:56] LABS: Anisocytosis Slight; Basophils # (A) 0.1 k/uL (0-0.2); Basophils % (A) 1 %; Eosinophils # (A) 0.3 k/uL (0-0.7); Eosinophils % (A) 4 %; HCT 32.3 % (34.0-46.0); HGB 9.7 gm/dL (11.4-16.0); Hypochromasia Marked; Lymphocytes # (A) 1.5 k/uL (1.0-4.8); Lymphocytes % (A) 22 %; MCH 27.2 pg (25.0-35.0); MCV 90.4 fL (80.0-100.0); Mean Platelet Volume 8.1; Monocytes # (A) 0.3 k/uL (0-1.0); Monocytes % (A) 5 %; Neutrophils # (A) 4.6 k/uL (1.3-7.7); Neutrophils % (A) 66 %; Platelet Count 244 k/uL (150-450); RBC 3.57 m/uL (3.80-5.40); RDW 16.4 % (11.5-15.5)
[2023-11-20 14:12] LABS: ALT 15 U/L (4-34); AST 30 U/L (14-36); African American GFR (CKD) >90 (>60 ml/min/1.73 sqM); Albumin 3.5 g/dL (3.5-5.0); Alkaline Phosphatase 122 U/L (38-126); Anion Gap 8 mmol/L; Blood Urea Nitrogen 19 mg/dL (7-17); Calcium 8.9 mg/dL (8.4-10.2); Carbon Dioxide 24 mmol/L (22-30); Chloride 106 mmol/L (98-107); Glucose 93 mg/dL (74-99); Magnesium 1.8 mg/dL (1.6-2.3); Non-African American GFR(CKD) 84 (>60 ml/min/1.73 sqM); Potassium 4.7 mmol/L (3.5-5.1); Sodium 138 mmol/L (137-145); Total Bilirubin 0.9 mg/dL (0.2-1.3); Total Protein 6.9 g/dL (6.3-8.2)
[2023-11-20 15:37] LABS: Partial Thromboplastin Time 22.2 sec (22.0-30.0); Prothrombin Time 11.4 sec (10.0-12.5)
--- NOTE | 2023-11-20 16:15 | XR ---
EXAMINATION TYPE: XR chest 2V DATE OF EXAM: 11/20/2023 4:02 PM CLINICAL INDICATION:Female, 78 years old with history of difficulty breathing; COMPARISON: Chest radiographs from 11/03/2023 TECHNIQUE: XR chest 2V Frontal and lateral views of the chest. FINDINGS: Lungs/Pleura: Increased airspace opacities project over the heart on the lateral view. There is no ev idence of pleural effusion, focal consolidation, or pneumothorax. Pulmonary vascularity: Unremarkable. Heart/mediastinum: Cardiomediastinal silhouette is unremarkable. Post aortic valve repair changes. L eft atrial appendage occlusion device is present. Musculoskeletal: No acute osseous pathology. Midline sternotomy wires are noted. Other findings: None IMPRESSION: Consolidation changes over the heart on the lateral view correlate for pneumonia.e Cardiomegaly and mild pulmonary vascular congestion. Correlate with BNP for congestive heart failure.
[2023-11-20] MEDS ORDERED: HYDROcodone/APAP 10-325MG 1 EACH TAB PO PRN (18:01)
[2023-11-20] MEDS: FUROSEMIDE 10 MG/ML 2 ML VIAL IV SCH (18:50)
[2023-11-21] MEDS: LEVOTHYROXINE 75 MCG TAB PO SCH (05:34)
[2023-11-21] MEDS: IPRATROPIUM-ALBUTEROL 3 ML NEB INHALATION PRN (05:39)
[2023-11-21] MEDS: MIDODRINE 5 MG TAB PO SCH (07:56)
[2023-11-21] MEDS ORDERED: BUMETANIDE 1 MG TAB PO SCH (09:00)
[2023-11-21] MEDS: ASPIRIN 81 MG PO SCH (09:13)
--- NOTE | 2023-11-21 12:34 | P.HPIM ---
History of Present Illness H&P Date: 11/21/23 Mirella San, is an 78-year-old female who presented to [facility] emergency room with a chief complaint of worsening shortness of breath She was evaluated in the emergency room vital examination on presentation revealed a temperature of 97.5 pulse 77 respiration 20 blood pressure 108/77 pulse ox 94% on room air 99% on 2 L nasal cannula Laboratory data revealed a white blood count of 7.0 hemoglobin 9.7 platelet count 244 BUN 19 creatinine 0.66 BNP 4070 troponin 0.012 Testing in the emergency room revealed chest x-ray done in the emergency room revealed consult radiation changes over the heart on the lateral view correlate for pneumonia and cardiomegaly with mild pulmonary vascular congestion Patient was admitted to medical floor for further evaluation and treatment Past Medical History Past Medical History: Atrial Fibrillation, Heart Failure, COPD, GERD/Reflux, Osteoarthritis (OA), Renal Disease, Rheumatoid Arthritis (RA), Supraventricular Tachycardia (SVT), Thyroid Disorder Additional Past Medical History / Comment(s): Valvular heart disease with previous aortic valve replacement and a mitral valve repair, congestion heart failure, Paroxysmal Afib, history of SVT, history of nonsustained VT, SOB with exertion, home O2 at 2L/NC usually prn but lately ATC, arthritis, RA several joints, current L elbow pain/swelling-had "injection", nephrolithiasis, hypothyroid, diverticular dx, UTI, iron deficiency anemia. 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 History of Any Multi-Drug Resistant Organisms: None Reported Past Surgical History: Coronary Bypass/CABG, Heart Catheterization, Hysterectomy, Joint Replacement, Orthopedic Surgery Additional Past Surgical History / Comment(s): Geoff total knees arthroplasty,lt hip arthroplasty, goiter removed 1962, partial thyroidectomy, cataracts removed with lens implants, REVERSE TOTAL RIGHT SHOULDER; Rotator cuff R shoulder, cervical fusion/injections, colonoscopy 2016(next after 5yr), MATTHEW, valve surgery at [facility] 10/13/17 Prosthetic Aortic valve and mitral valve repair. Total abdominal hysterectomy in the 1980s. Past Anesthesia/Blood Transfusion Reactions: Postoperative Nausea & Vomiting (PONV) Past Psychological History: No Psychological Hx Reported Additional Psychological History / Comment(s): Pt resides with her spouse in an apartment with no stairs. She used to drive but not since valve surgery. Her spouse is helpful and [place] She has home oxygen. She uses a walker to ambulate and has a cane. She also has a scale and B/P monitor. She has used VMA in the recent past. Smoking Status: Former smoker Past Alcohol Use History: None Reported Additional Past Alcohol Use History / Comment(s): She used to drink 2 glasses of wine per week but hasn't for months, quit smoking @age of 43, smoked 1ppd for 30 yrs. Past Drug Use History: None Reported - Past Family History Father Family Medical History: Cancer, Myocardial Infarction ([place]) Additional Family Medical History / Comment(s): in his 80's of a mi. Colon cancer. Mother Family Medical History: No Reported History Additional Family Medical History / Comment(s): age 88 . hx smoking. Daughter(s) Family Medical History: Cancer Additional Family Medical History / Comment(s): from vulvar cancer. Medications and Allergies Home Medications Medication Instructions Recorded Confirmed Type HYDROcodone/APAP 10-325MG [[place] 1 tab PO Q8H PRN 3 Days #12 tab 09/14/23 11/20/23 Rx 10-325] Ascorbic Acid [Vitamin C] 500 mg PO DAILY 30 Days #30 tab 11/05/23 11/20/23 Rx Aspirin 81 mg PO DAILY 30 Days #30 tab 11/05/23 11/20/23 Rx Bumetanide [BUMEX] 1 mg PO BID@0900,1600 30 Days #60 11/05/23 11/20/23 Rx tab Cholecalciferol (Vitamin D3) 125 mcg PO DAILY 30 Days #30 cap 11/05/23 11/20/23 Rx [Vitamin D3 (125 MCG = 5,000 IU)] Metoprolol Tartrate [Lopressor] 25 mg PO BID 30 Days #60 tab 11/05/23 11/20/23 Rx Midodrine [ProAmatine] 5 mg PO AC-TID 30 Days #90 tab 11/05/23 11/20/23 Rx Ipratropium-Albuterol Nebulize 3 ml INHALATION RT-Q6H PRN 11/20/23 11/20/23 History [Duoneb 0.5 mg-3 mg/3 ml Soln] Levothyroxine Sodium [Synthroid] 150 mcg PO DAILY 11/20/23 11/20/23 History Allergies Allergy/AdvReac Type Severity Reaction Status Date / Time lisinopril AdvReac Cough Verified 11/20/23 14:27 Physical Exam Vitals: Vital Signs Temp Pulse Pulse Pulse Resp BP BP 11/21/23 08:15 97.5 F L 61 16 102/64 11/21/23 05:45 88 11/21/23 05:42 85 11/21/23 01:55 97.7 F 85 16 99/64 11/20/23 23:00 105/69 11/20/23 22:43 98.0 F 90 18 87/62 11/20/23 22:30 90 18 11/20/23 22:16 97.7 F 82 22 105/70 11/20/23 20:20 80 16 103/91 11/20/23 18:55 84 20 105/70 11/20/23 17:30 97.7 F 82 18 105/72 11/20/23 16:26 97.8 F 64 18 99/77 11/20/23 14:56 73 20 92/64 11/20/23 12:46 97.5 F L 77 20 108/77 Pulse Ox 11/21/23 08:15 99 11/21/23 05:45 11/21/23 05:42 11/21/23 01:55 99 11/20/23 23:00 11/20/23 22:43 95 11/20/23 22:30 11/20/23 22:16 100 11/20/23 20:20 98 11/20/23 18:55 97 11/20/23 17:30 98 11/20/23 16:26 98 11/20/23 14:56 99 11/20/23 12:46 94 L Intake and Output 11/20/23 11/21/23 11/21/23 22:59 06:59 14:59 Output Total 200 600 Balance -200 -600 Output: Urine 200 600 Other: Voiding Method External Catheter Weight 46.72 kg 46.72 kg In general patient is alert and oriented x 3 in no distress HEENT head normocephalic and atraumatic Neck is supple no JVD no goiter no lymphadenopathy no carotid bruit Chest examination reveals a scattered crackles bilaterally no wheezing Cardiac exam reveals irregular heart sounds S1 and S2 no gallops no murmurs Abdomen is soft nontender no organomegaly with normal bowel sounds Extremity exam reveals no edema no cyanosis or clubbing Neurological examination reveals no gross focal deficits Results CBC & Chem 7: 11/20/23 13:15 11/20/23 13:15 Labs: Abnormal Lab Results - Last 24 Hours (Table) 11/20/23 11/20/23 Range/Units 13:15 13:15 RBC 3.57 L (3.80-5.40) m/uL Hgb 9.7 L (11.4-16.0) gm/dL Hct 32.3 L (34.0-46.0) % MCHC 30.0 L (31.0-37.0) g/dL RDW 16.4 H (11.5-15.5) % BUN 19 H (7-17) mg/dL Thrombosis Risk Factor Assmnt - Choose All That Apply Any of the Below Risk Factors Present?: No Other Risk Factors: Yes Each Risk Factor Represents 3 Points: Age 75 years or older Other congenital or acquired thrombophilia - If yes, enter type in comment: No Thrombosis Risk Factor Assessment Total Risk Factor Score: 3 Thrombosis Risk Factor Assessment Level: Moderate Risk Assessment and Plan Plan: Acute systolic congestive heart failure exacerbation Underlying history of valvular heart disease, with previous history of mitral valve repair and aortic valve replacement Underlying history of atrial fibrillation Underlying history of coronary artery disease with history of coronary artery bypass graft surgery Underlying history of nonischemic cardiomyopathy Underlying history of COPD Consult radiation on chest x-ray was possible pneumonia Underlying history of hypertension Underlying history of hyperlipidemia Underlying history of hypothyroidism Underlying history of osteoarthritis At this time patient is admitted to telemetry floor Home medications reviewed and reordered Patient was started on IV Lasix in the emergency room will continue Possible pulmonary consultation suggestive of pneumonia although no evidence of pneumonia clinically, no antibiotic were started at this time will monitor closely pulmonary consultation was requested For DVT prophylaxis subcu Lovenox For GI prophylaxis Protonix Will follow closely
[2023-11-21] MEDS: METOPROLOL TARTRATE 25 MG TAB PO SCH (20:09)
[2023-11-22] MEDS: ENOXAPARIN 40 MG/0.4 ML SYRINGE SQ SCH (09:11)
[2023-11-22] MEDS: CHOLECALCIFEROL 125 MCG (5000 IU) TABLET PO SCH (09:11)
[2023-11-22] MEDS: ASCORBIC ACID 500 MG TAB PO SCH (09:11)
[2023-11-22 09:46] LABS: Basophils # (A) 0.06 X 10*3/uL (0.00-0.10); Basophils % (A) 0.9 %; Eosinophils # (A) 0.39 X 10*3/uL (0.04-0.35); Eosinophils % (A) 5.8 %; HCT 32.5 % (37.2-46.3); HGB 9.4 g/dL (12.0-15.0); Lymphocytes # (A) 1.62 X 10*3/uL (0.90-5.00); Lymphocytes % (A) 24.2 %; MCH 26.4 pg (27.0-32.0); MCHC 28.9 g/dL (32.0-37.0); MCV 91.3 FL (80.0-97.0); Mean Platelet Volume 10.1 FL (9.5-12.2); Monocytes # (A) 0.47 X 10*3/uL (0.20-1.00); NRBC Per 100 WBC 0 X 10*3/uL (0.00-0.01); Neutrophils # (A) 3.93 X 10*3/uL (1.80-7.70); Neutrophils % (A) 58.7 %; Platelet Count 223 X 10*3/uL (140-440); RBC 3.56 X 10*6/uL (4.10-5.20); RDW 16.6 % (11.5-14.5)
[2023-11-22 10:00] LABS: ALT 11 U/L (8-44); AST 21 U/L (13-35); Albumin 3.4 g/dL (3.8-4.9); Albumin/Globulin Ratio 1.21 Ratio (1.60-3.17); Alkaline Phosphatase 119 U/L (41-126); BUN/Creat Ratio 20.88 Ratio (12.00-20.00); Blood Urea Nitrogen 16.7 mg/dL (9.0-27.0); Calcium 8.5 mg/dL (8.7-10.3); Carbon Dioxide 30.8 mmol/L (21.6-31.8); Chloride 99 mmol/L (96-109); Globulin 2.8 g/dL (1.6-3.3); Glucose 93 mg/dL (70-110); Potassium 4.4 mmol/L (3.5-5.5); Sodium 138 mmol/L (135-145); Total Bilirubin 0.5 mg/dL (0.3-1.2); Total Protein 6.2 g/dL (6.2-8.2)
--- NOTE | 2023-11-22 12:08 | P.PN ---
Subjective Progress Note Date: 11/22/23 Mirella San, is an 78-year-old female who presented to [facility] emergency room with a chief complaint of worsening shortness of breath She was evaluated in the emergency room vital examination on presentation revealed a temperature of 97.5 pulse 77 respiration 20 blood pressure 108/77 pulse ox 94% on room air 99% on 2 L nasal cannula Laboratory data revealed a white blood count of 7.0 hemoglobin 9.7 platelet count 244 BUN 19 creatinine 0.66 BNP 4070 troponin 0.012 Testing in the emergency room revealed chest x-ray done in the emergency room revealed consult radiation changes over the heart on the lateral view correlate for pneumonia and cardiomegaly with mild pulmonary vascular congestion Patient was admitted to medical floor for further evaluation and treatment On 11/22/2023 patient was seen and examined on the medical floor she is alert and oriented 3 in no apparent distress she is still complaining of shortness of breath and minimal cough otherwise she denies any complaints there is no fever or chills no headache or dizziness no chest pain no palpitation no nausea or vomiting no abdominal pain no diarrhea no blood in the stools no burning with urination no frequency or urgency no hematuria. Chest x-ray on presentation was suspicious for a consolidation, however no clinical evidence of pneumonia, no fever no elevation in white blood count, patient has minimal cough, at this time plan is to continue to was hold antibiotics, repeat chest x-ray, check pro- calcitonin, awaiting further input from pulmonary and cardiology, continue with IV Lasix at this time. Objective - Vital Signs Vital signs: Vital Signs Temp 97.8 F 11/22/23 08:12 Pulse 82 11/22/23 11:18 Resp 18 11/22/23 08:12 BP 95/52 11/22/23 08:12 Pulse Ox 100 11/22/23 08:12 FiO2 Intake & Output 11/21/23 11/22/23 11/22/23 18:59 06:59 18:59 Output Total 750 250 Balance -750 -250 Weight 46.72 kg Output: Urine 750 250 Other: Voiding Method External Catheter External Catheter - Exam In general patient is alert and oriented x 3 in no distress HEENT head normocephalic and atraumatic Neck is supple no JVD no goiter no lymphadenopathy no carotid bruit Chest examination reveals a scattered crackles bilaterally no wheezing Cardiac exam reveals irregular heart sounds S1 and S2 no gallops no murmurs Abdomen is soft nontender no organomegaly with normal bowel sounds Extremity exam reveals no edema no cyanosis or clubbing Neurological examination reveals no gross focal deficits - Labs CBC & Chem 7: 11/22/23 05:54 11/22/23 05:54 Labs: Abnormal Lab Results - Last 24 Hours (Table) 11/22/23 11/22/23 Range/Units 05:54 05:54 RBC 3.56 L (4.10-5.20) X 10*6/uL Hgb 9.4 L (12.0-15.0) g/dL Hct 32.5 L (37.2-46.3) % MCH 26.4 L (27.0-32.0) pg MCHC 28.9 L (32.0-37.0) g/dL RDW 16.6 H (11.5-14.5) % Immature Gran # 0.23 H (0.00-0.04) X 10*3/uL Eosinophils # 0.39 H (0.04-0.35) X 10*3/uL BUN/Creatinine Ratio 20.88 H (12.00-20.00) Ratio Calcium 8.5 L (8.7-10.3) mg/dL Albumin 3.4 L (3.8-4.9) g/dL Albumin/Globulin Ratio 1.21 L (1.60-3.17) Ratio Microbiology - Last 24 Hours (Table) 11/20/23 15:04 Blood Culture - Preliminary Blood 11/20/23 13:15 Blood Culture - Preliminary Blood Assessment and Plan Plan: Acute systolic congestive heart failure exacerbation Underlying history of valvular heart disease, with previous history of mitral valve repair and aortic valve replacement Underlying history of atrial fibrillation Underlying history of coronary artery disease with history of coronary artery bypass graft surgery Underlying history of nonischemic cardiomyopathy Underlying history of COPD Consult radiation on chest x-ray was possible pneumonia Underlying history of hypertension Underlying history of hyperlipidemia Underlying history of hypothyroidism Underlying history of osteoarthritis At this time patient is admitted to telemetry floor Home medications reviewed and reordered Patient was started on IV Lasix in the emergency room will continue Possible pulmonary consultation suggestive of pneumonia although no evidence of pneumonia clinically, no antibiotic were started at this time will monitor closely pulmonary consultation was requested For DVT prophylaxis subcu Lovenox For GI prophylaxis Protonix Will follow closely
--- NOTE | 2023-11-22 14:23 | P.CNPUL ---
History of Present Illness Consult date: 11/22/23 Reason for consult: dyspnea, hypoxemia History of present illness: This is a 78-year-old female patient was having increased shortness of breath. The patient was hospitalized for worsening shortness of breath mainly exertional without any significant edema lower extremities. The patient has been maintained on O2 at 2 L on outpatient basis and she was provided O2 approximately 4 weeks ago. She has history of congestion heart failure and va lvular heart disease and she has undergone previous aortic valve replacement and mitral valve repair and the patient has chronic atrial fibrillation and previous history of SVTs and nonsustained V. tach's. She has as such an extensive cardiac history. She has a ex-smoker. She has history of rheumatoid arthritis and degenerative arthritis along with diverticular disease, hypothyroidism, kidney stones and iron deficiency anemia. The patient has maintained on Bumex 1 mg p.o. twice daily on an outpatient basis. Currently she is on 2 L of O2 nasal cannula. Reviewed the chest x-ray from this current admission and the patient has cardiomegaly and some increased interstitial markings bilaterally along with some consolidative changes on the lateral views specially on the left. Based on all this, pulmonary consultation was requested. Previous echocardiogram from 06/28/2023 showed impaired LV function with an EF of around 30 to 35%, severe RV dilatation and severe pulmonary hypertension and severe atrial dilatation. Right ventricular systolic pressure was around 50. The patient had mitral valve repair with mild regurgitation and the bioprosthetic aortic valve showed no significant regurgitation. A CTA of the chest was done on 10/20/2023 showed cardiomegaly with bilateral pleural effusion pulmonary edema without evidence of any pulmonary embolism. Similar findings were seen on earlier CT scan of the chest that was done on 08/23/2023. Review of Systems Constitutional: Reports fatigue, Reports weakness Eyes: denies as per HPI, denies blurred vision, denies bulging eye, denies decreased vision, denies diplopia, denies discharge, denies dry eye, denies irritation, denies itching, denies pain, denies photophobia, denies loss of peripheral vision, denies loss of vision, denies tunnel vision/blind spots Ears: deny: decreased hearing, ear discharge, earache, tinnitus Ears, nose, mouth and throat: Reports as per HPI Breasts: Reports as per HPI Cardiovascular: Reports decreased exercise tolerance, Reports dyspnea on exertion, Reports irregular heart beat, Reports palpitations, Reports rapid heart beat, Reports shortness of breath Respiratory: Reports cough, Reports dyspnea, Reports home oxygen Gastrointestinal: Reports as per HPI Genitourinary: Reports as per HPI Menstruation: Reports as per HPI Musculoskeletal: bilateral: ankle swelling, absent: ankle pain, ankle stiffness Integumentary: Reports as per HPI Neurological: Reports as per HPI Psychiatric: Reports as per HPI Endocrine: Reports as per HPI Hematologic/Lymphatic: Reports as per HPI Allergic/Immunologic: Reports as per HPI Past Medical History Past Medical History: Atrial Fibrillation, Heart Failure, COPD, GERD/Reflux, Osteoarthritis (OA), Renal Disease, Rheumatoid Arthritis (RA), Supraventricular Tachycardia (SVT), Thyroid Disorder Additional Past Medical History / Comment(s): Valvular heart disease with previous aortic valve replacement and a mitral valve repair, congestion heart failure, Paroxysmal Afib, history of SVT, history of nonsustained VT, SOB with exertion, home O2 at 2L/NC usually prn but lately ATC, arthritis, RA several joints, current L elbow pain/swelling-had "injection", nephrolithiasis, hypothyroid, diverticular dx, UTI, iron deficiency anemia. 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 History of Any Multi-Drug Resistant Organisms: None Reported Past Surgical History: Coronary Bypass/CABG, Heart Catheterization, Hysterectomy, Joint Replacement, Orthopedic Surgery Additional Past Surgical History / Comment(s): Geoff total knees arthroplasty,lt hip arthroplasty, goiter removed 1962, partial thyroidectomy, cataracts removed with lens implants, REVERSE TOTAL RIGHT SHOULDER; Rotator cuff R shoulder, cervical fusion/injections, colonoscopy 2016(next after 5yr), MATTHEW, valve surgery at [facility] 10/13/17 Prosthetic Aortic valve and mitral valve repair. Total abdominal hysterectomy in the 1980s. Past Anesthesia/Blood Transfusion Reactions: Postoperative Nausea & Vomiting (PONV) Past Psychological History: No Psychological Hx Reported Additional Psychological History / Comment(s): Pt resides with her spouse in an apartment with no stairs. She used to drive but not since valve surgery. Her spouse is helpful and able to drive her to appts. She has home oxygen. She uses a walker to ambulate and has a cane. She also has a scale and B/P monitor. She has used VMA in the recent past. Smoking Status: Former smoker Past Alcohol Use History: None Reported Additional Past Alcohol Use History / Comment(s): She used to drink 2 glasses of wine per week but hasn't for months, quit smoking @age of 43, smoked 1ppd for 30 yrs. Past Drug Use History: None Reported - Past Family History Father Family Medical History: Cancer, Myocardial Infarction (LA) Additional Family Medical History / Comment(s): in his 80's of a mi. Colon cancer. Mother Family Medical History: No Reported History Additional Family Medical History / Comment(s): age 88 . hx smoking. Daughter(s) Family Medical History: Cancer Additional Family Medical History / Comment(s): from vulvar cancer. Medications and Allergies Home Medications Medication Instructions Recorded Confirmed Type HYDROcodone/APAP 10-325MG [Mobile 1 tab PO Q8H PRN 3 Days #12 tab 09/14/23 11/20/23 Rx 10-325] Ascorbic Acid [Vitamin C] 500 mg PO DAILY 30 Days #30 tab 11/05/23 11/20/23 Rx Aspirin 81 mg PO DAILY 30 Days #30 tab 11/05/23 11/20/23 Rx Bumetanide [BUMEX] 1 mg PO BID@0900,1600 30 Days #60 11/05/23 11/20/23 Rx tab Cholecalciferol (Vitamin D3) 125 mcg PO DAILY 30 Days #30 cap 11/05/23 11/20/23 Rx [Vitamin D3 (125 MCG = 5,000 IU)] Metoprolol Tartrate [Lopressor] 25 mg PO BID 30 Days #60 tab 11/05/23 11/20/23 Rx Midodrine [ProAmatine] 5 mg PO AC-TID 30 Days #90 tab 11/05/23 11/20/23 Rx Ipratropium-Albuterol Nebulize 3 ml INHALATION RT-Q6H PRN 11/20/23 11/20/23 History [Duoneb 0.5 mg-3 mg/3 ml Soln] Levothyroxine Sodium [Synthroid] 150 mcg PO DAILY 11/20/23 11/20/23 History Allergies Allergy/AdvReac Type Severity Reaction Status Date / Time lisinopril AdvReac Cough Verified 11/20/23 14:27 Physical Exam Vitals: Vital Signs Temp Pulse Pulse Resp BP Pulse Ox 11/22/23 13:09 97.9 F 80 16 88/50 95 11/22/23 11:18 82 11/22/23 11:06 80 11/22/23 08:12 97.8 F 64 18 95/52 100 11/22/23 07:33 96 11/22/23 04:16 87 11/22/23 04:07 85 11/22/23 01:48 97.4 F L 68 16 97/66 97 11/21/23 19:15 97.0 F L 64 18 102/61 96 11/21/23 18:34 62 88/52 Intake and Output 11/21/23 11/22/23 11/22/23 22:59 06:59 14:59 Output Total 150 250 Balance -150 -250 Output: Urine 150 250 Other: Voiding Method External Catheter External Catheter GENERAL EXAM: Alert, 78-year-old white female, comfortable in no apparent distress. The patient is currently, nasal cannula. HEAD: Normocephalic and atraumatic EYES: Normal reaction of pupils, equal size. NOSE: Clear with pink turbinates. THROAT: No erythema or exudates. NECK: No masses, no JVD. CHEST: No chest wall deformity. LUNGS: Equal air entry with bibasilar rales, and the crackles are more extensive in the mid and lower lung rios bilaterally and somewhat coarse. No conversational dyspnea or accessory muscle use while at rest.. CVS: S1 and S2 normal with grade 2 systolic murmur, regular rhythm. No other extra heart sounds ABDOMEN: No hepatosplenomegaly, active bowel sounds, no guarding or rigidity. SPINE: No scoliosis or deformity SKIN: No rashes CENTRAL NERVOUS SYSTEM: No focal deficits, tone is normal in all 4 extremities. EXTREMITIES: There is no peripheral edema, clubbing, or cyanosis. Peripheral pulses are intact. Results - Laboratory Findings CBC and BMP: 11/22/23 05:54 11/22/23 05:54 PT/INR, D-dimer PT 11.4 sec (10.0-12.5) 11/20/23 13:15 INR 1.0 (<1.2) 11/20/23 13:15 Abnormal lab findings: Abnormal Labs 11/20/23 11/20/23 11/22/23 13:15 13:15 05:54 RBC 3.57 L 3.56 L Hgb 9.7 L 9.4 L Hct 32.3 L 32.5 L MCH 26.4 L MCHC 30.0 L 28.9 L RDW 16.4 H 16.6 H Immature Gran # 0.23 H Eosinophils # 0.39 H BUN 19 H BUN/Creatinine Ratio Calcium Albumin Albumin/Globulin Ratio 11/22/23 05:54 RBC Hgb Hct MCH MCHC RDW Immature Gran # Eosinophils # BUN BUN/Creatinine Ratio 20.88 H Calcium 8.5 L Albumin 3.4 L Albumin/Globulin Ratio 1.21 L - Diagnostic Findings Chest x-ray: image reviewed Assessment and Plan Plan: Acute on chronic hypoxemic respiratory failure, likely secondary to an exacerbation of systolic congestive heart failure and atrial fibrillation with rapid ventricular response. Chest x-ray on arrival shows cardiomegaly and pulmonary vascular congestion, more prominent than recent study. The patient's presentation remains consistent with CHF. I reviewed the previous CAT scan of the chest that was done October 2023 and August 2023 in both instances, there is interstitial edema and bilateral pleural effusions and there is no indication for an underlying interstitial lung disease. I favor CHF as the patient's main complicating factor for your ongoing shortness of breath. CHF with impaired LV function and ejection fraction of 30 to 35% along with chronic pulm hypertension and right-sided cardiac structure enlargement. No evidence of any mitral valve leak. No evidence of any aortic valve leak. History of valvular heart disease with previous aortic valve replacement with a bioprosthetic aortic valve and mitral valve repair Chronic atrial fibrillation History of nonischemic cardiomyopathy Chronic hypoxemic respiratory failure, secondary to above, maintained on O2 at 2 L/min nasal cannula Remote history of tobacco use Hypothyroidism Reviewed arthritis Degenerative arthritis Diverticular disease Hypothyroidism Nephrolithiasis Anemia of chronic disease Previous history of nonsustained VT Plan Oxygen requirements are essentially at baseline 2 L/min nasal cannula and there is no interval worsening in the patient's oxygenation in general. Agree on the current management Continue diuresis Patient is currently on IV Lasix and the patient remains on a Bumex on outpatient basis Cardiology reevaluation to optimize CHF Will continue to follow
[2023-11-22 15:01] LABS: % Iron Saturation 5.91 (12.00-45.00)
--- NOTE | 2023-11-22 15:44 | P.CRDCN ---
History of Present Illness Consult date: 11/22/23 Consult reason: shortness of breath Chief complaint: Shortness of breath History of present illness: History of present illness: Patient is a pleasant 78-year-old female with significant past medical history of persistent A-fib/flutter on Coumadin, cardiomyopathy with EF around 35%, valvular heart disease status post mitral valve repair and aortic valve replacement who presented to the hospital with worsening shortness of breath. Patient does follow-up with Dr. Flores in the office. She reports that her breathing has been getting progressively worse over the past 1 month. She does wear home O2 3 L nasal cannula. She denies any recent fevers. She does have occasional cough. She states she has been off of her Coumadin for the past 7 days per her primary doctor however she is unsure why this is being held. She denies any chest pain or pressure. Denies any dizziness or syncope. She had a prior echocardiogram 06/28/2023 with a EF 30-35%, RVSP 50, severe tricuspid regurgitation. She was recently admitted 11/02/2023 with similar complaints. Her blood pressure has been low with systolic BP [id number], she is on midodrine at home. Labs reviewed: Hemoglobin 9.7, potassium 4.7, creatinine 0.66, troponin negative, BNP 4070. Chest x-ray shows consolidation changes over the heart on the lateral view correlate for pneumonia, cardiomegaly and mild pulmonary vascular congestion.She does report feeling a little better today. REVIEW OF SYSTEMS: No fever or chills. No diaphoresis. Patient denies headache, dizziness, blurred vision, double vision. Patient denies any stomach discomfort. No nausea, vomiting. No hematochezia. No hematemesis. Denies any black stools or blood in his stools. Denies dysuria or hematuria. No muscle weakness or numbness. No chest pain or pressure. Reports shortness of breath and mild cough. PHYSICAL EXAMINATION: This is a 78-year-old female in no apparent distress at the time of my examination. HEENT: Head is atraumatic, normocephalic. Pupils are equal, round. Sclerae anicteric. Conjunctivae are clear. Mucous membranes of the mouth are moist. Neck is supple. There is no jugular venous distention. No carotid bruit is heard. CHEST EXAMINATION: Lungs are diminished with slight crackles. No chest wall tenderness is noted on palpation or with deep breathing. HEART EXAMINATION: Heart regular rate and rhythm. S1, S2 heard. No gallops or rub. Systolic murmur 2/6. ABDOMEN: Soft, nontender. Bowel sounds are heard. EXTREMITIES: 2+ peripheral pulses with no evidence of peripheral edema and no calf tenderness noted. NEUROLOGIC EXAMINATION: Patient is awake, alert and oriented x3. IMPRESSION AND PLAN: Persistent A-fib/flutter Cardiomyopathy, prior EF 35% from June 2023 Valvular heart disease status post mitral valve repair and aortic valve replacement Acute on chronic systolic heart failure Dyspnea Severe tricuspid regurgitation Pulmonary hypertension PLAN: We will continue with IV diuretics, okay to give the Lasix even with lower blood pressure. Continue with heart failure regimen. We will continue to follow. I am dictating on behalf of Dr. Jesus Jordan's history/physical and assessment/plan. Past Medical History Past Medical History: Atrial Fibrillation, Heart Failure, COPD, GERD/Reflux, Osteoarthritis (OA), Renal Disease, Rheumatoid Arthritis (RA), Supraventricular Tachycardia (SVT), Thyroid Disorder Additional Past Medical History / Comment(s): Valvular heart disease with previous aortic valve replacement and a mitral valve repair, congestion heart failure, Paroxysmal Afib, history of SVT, history of nonsustained VT, SOB with exertion, home O2 at 2L/NC usually prn but lately ATC, arthritis, RA several joints, current L elbow pain/swelling-had "injection", nephrolithiasis, hypothyroid, diverticular dx, UTI, iron deficiency anemia. 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 History of Any Multi-Drug Resistant Organisms: None Reported Past Surgical History: Coronary Bypass/CABG, Heart Catheterization, Hysterectomy, Joint Replacement, Orthopedic Surgery Additional Past Surgical History / Comment(s): Geoff total knees arthroplasty,lt hip arthroplasty, goiter removed 1962, partial thyroidectomy, cataracts removed with lens implants, REVERSE TOTAL RIGHT SHOULDER; Rotator cuff R shoulder, cervical fusion/injections, colonoscopy 2016(next after 5yr), MATTHEW, valve surgery at [facility] 10/13/17 Prosthetic Aortic valve and mitral valve repair. Total abdominal hysterectomy in the . Past Anesthesia/Blood Transfusion Reactions: Postoperative Nausea & Vomiting (PONV) Past Psychological History: No Psychological Hx Reported Additional Psychological History / Comment(s): Pt resides with her spouse in an apartment with no stairs. She used to drive but not since valve surgery. Her spouse is helpful and able to drive her to appts. She has home oxygen. She uses a walker to ambulate and has a cane. She also has a scale and B/P monitor. She has used VMA in the recent past. Smoking Status: Former smoker Past Alcohol Use History: None Reported Additional Past Alcohol Use History / Comment(s): She used to drink 2 glasses of wine per week but hasn't for months, quit smoking @age of 43, smoked 1ppd for 30 yrs. Past Drug Use History: None Reported - Past Family History Father Family Medical History: Cancer, Myocardial Infarction (HI) Additional Family Medical History / Comment(s): in his 80's of a mi. Colon cancer. Mother Family Medical History: No Reported History Additional Family Medical History / Comment(s): age 88 . hx smoking. Daughter(s) Family Medical History: Cancer Additional Family Medical History / Comment(s): from vulvar cancer. Medications and Allergies Home Medications Medication Instructions Recorded Confirmed Type HYDROcodone/APAP 10-325MG [[place] 1 tab PO Q8H PRN 3 Days #12 tab 09/14/23 11/20/23 Rx 10-325] Ascorbic Acid [Vitamin C] 500 mg PO DAILY 30 Days #30 tab 11/05/23 11/20/23 Rx Aspirin 81 mg PO DAILY 30 Days #30 tab 11/05/23 11/20/23 Rx Bumetanide [BUMEX] 1 mg PO BID@0900,1600 30 Days #60 11/05/23 11/20/23 Rx tab Cholecalciferol (Vitamin D3) 125 mcg PO DAILY 30 Days #30 cap 11/05/23 11/20/23 Rx [Vitamin D3 (125 MCG = 5,000 IU)] Metoprolol Tartrate [Lopressor] 25 mg PO BID 30 Days #60 tab 11/05/23 11/20/23 Rx Midodrine [ProAmatine] 5 mg PO AC-TID 30 Days #90 tab 11/05/23 11/20/23 Rx Ipratropium-Albuterol Nebulize 3 ml INHALATION RT-Q6H PRN 11/20/23 11/20/23 History [Duoneb 0.5 mg-3 mg/3 ml Soln] Levothyroxine Sodium [Synthroid] 150 mcg PO DAILY 11/20/23 11/20/23 History Allergies Allergy/AdvReac Type Severity Reaction Status Date / Time lisinopril AdvReac Cough Verified 11/20/23 14:27 Physical Exam Vitals: Vital Signs Temp Pulse Pulse Resp BP Pulse Ox 11/22/23 08:12 97.8 F 64 18 95/52 100 11/22/23 07:33 96 11/22/23 04:16 87 11/22/23 04:07 85 11/22/23 01:48 97.4 F L 68 16 97/66 97 11/21/23 19:15 97.0 F L 64 18 102/61 96 11/21/23 18:34 62 88/52 11/21/23 13:11 97.9 F 65 17 92/56 99 Intake and Output 11/21/23 11/22/23 11/22/23 22:59 06:59 14:59 Output Total 150 250 Balance -150 -250 Output: Urine 150 250 Other: Voiding Method External Catheter External Catheter Results 11/22/23 05:54 11/22/23 05:54 Cardiac Enzymes 11/22/23 Range/Units 05:54 AST 21 (13-35) U/L CBC 11/22/23 Range/Units 05:54 WBC 6.70 (4.50-10.00) X 10*3/uL RBC 3.56 L (4.10-5.20) X 10*6/uL Hgb 9.4 L (12.0-15.0) g/dL Hct 32.5 L (37.2-46.3) % Plt Count 223 (140-440) X 10*3/uL Comprehensive Metabolic Panel 11/22/23 Range/Units 05:54 Sodium 138 (135-145) mmol/L Potassium 4.4 (3.5-5.5) mmol/L Chloride 99 (96-109) mmol/L Carbon Dioxide 30.8 (21.6-31.8) mmol/L BUN 16.7 (9.0-27.0) mg/dL Creatinine 0.8 (0.6-1.5) mg/dL Glucose 93 (70-110) mg/dL Calcium 8.5 L (8.7-10.3) mg/dL AST 21 (13-35) U/L ALT 11 (8-44) U/L Alkaline Phosphatase 119 (41-126) U/L Total Protein 6.2 (6.2-8.2) g/dL Albumin 3.4 L (3.8-4.9) g/dL Current Medications Generic Name Dose Route Start Last Admin Trade Name Freq PRN Reason Stop Dose Admin Hydrocodone Bitart/Acetaminophen 1 each 11/20/23 18:01 Hydrocodone/Apap 10-325mg 1 Each Tab PO Q8H PRN Pain Albuterol/Ipratropium 3 ml 11/20/23 18:01 11/22/23 04:06 Ipratropium-Albuterol 3 Ml Neb INHALATION 3 ml RT-Q6H PRN Administration Shortness Of Breath Ascorbic Acid 500 mg 11/22/23 09:00 11/22/23 09:11 Ascorbic Acid 500 Mg Tab PO 500 mg DAILY CARLOS Administration Aspirin 81 mg 11/21/23 09:00 11/22/23 09:11 Aspirin 81 Mg PO 81 mg DAILY CARLOS Administration Cholecalciferol 125 mcg 11/22/23 09:00 11/22/23 09:11 Cholecalciferol 125 Mcg (5000 Iu) Tablet PO 125 mcg DAILY CARLOS Administration Enoxaparin Sodium 40 mg 11/22/23 09:00 11/22/23 09:11 Enoxaparin 40 Mg/0.4 Ml Syringe SQ 40 mg DAILY CARLOS Administration Furosemide 20 mg 11/20/23 18:00 11/22/23 05:35 Furosemide 10 Mg/Ml 2 Ml Vial IV Not Given Q12H CARLOS Levothyroxine Sodium 150 mcg 11/21/23 06:30 11/22/23 05:35 Levothyroxine 75 Mcg Tab PO 150 mcg DAILY@0630 CARLSO Administration Metoprolol Tartrate 25 mg 11/21/23 21:00 11/22/23 09:11 Metoprolol Tartrate 25 Mg Tab PO 25 mg BID CARLOS Administration Midodrine 5 mg 11/21/23 07:30 11/22/23 09:11 Midodrine 5 Mg Tab PO 5 mg AC-TID CARLOS Administration Intake and Output 11/21/23 11/22/23 11/22/23 22:59 06:59 14:59 Output Total 150 250 Balance -150 -250 Output: Urine 150 250 Other: Voiding Method External Catheter External Catheter 11/22/23 05:54 11/22/23 05:54
--- NOTE | 2023-11-23 07:02 | XR ---
EXAMINATION TYPE: XR chest 1V portable DATE OF EXAM: 11/23/2023 COMPARISON: 10/19/2023 HISTORY: Follow-up lung infiltrates TECHNIQUE: Single frontal view of the chest is obtained. FINDINGS: There is an prior CABG surgery and aortic valve replacement surgery. Stable moderate cardiomegaly but no definite pulmonary vascular congestion. There has been interval clearing of the infiltrates in the right lung base. There is increasing conso lidation involving the left lower lobe likely a combination of pleural effusion and atelectasis/pneum onic infiltrate There is reverse right shoulder surgery otherwise the osseous structures are intact IMPRESSION: 1. Interval clearing of the right lower lobe infiltrate. 2. Moderate interval worsening of the left lower lobe opacity as described above.
[2023-11-23 08:09] LABS: Anisocytosis Slight; Basophils # (A) 0.1 k/uL (0-0.2); Basophils % (A) 1 %; Eosinophils # (A) 0.4 k/uL (0-0.7); Eosinophils % (A) 5 %; HCT 35.5 % (34.0-46.0); HGB 10.2 gm/dL (11.4-16.0); Hypochromasia Marked; Lymphocytes # (A) 1.5 k/uL (1.0-4.8); Lymphocytes % (A) 22 %; MCH 25.9 pg (25.0-35.0); MCHC 28.8 g/dL (31.0-37.0); MCV 89.7 fL (80.0-100.0); Mean Platelet Volume 8.4; Monocytes # (A) 0.5 k/uL (0-1.0); Monocytes % (A) 8 %; Neutrophils # (A) 4.1 k/uL (1.3-7.7); Neutrophils % (A) 61 %; Platelet Count 239 k/uL (150-450); RBC 3.95 m/uL (3.80-5.40); RDW 16.4 % (11.5-15.5); WBC 6.7 k/uL (3.8-10.6)
[2023-11-23 08:10] LABS: ALT 15 U/L (4-34); AST 27 U/L (14-36); African American GFR (CKD) 81 (>60 ml/min/1.73 sqM); Albumin 3.3 g/dL (3.5-5.0); Alkaline Phosphatase 130 U/L (38-126); Anion Gap 9 mmol/L; Blood Urea Nitrogen 17 mg/dL (7-17); Calcium 8.6 mg/dL (8.4-10.2); Carbon Dioxide 28 mmol/L (22-30); Chloride 101 mmol/L (98-107); Globulin 3.4 g/dL; Glucose 92 mg/dL (74-99); Non-African American GFR(CKD) 70 (>60 ml/min/1.73 sqM); Potassium 3.8 mmol/L (3.5-5.1); Sodium 138 mmol/L (137-145); Total Bilirubin 0.7 mg/dL (0.2-1.3); Total Protein 6.7 g/dL (6.3-8.2)
--- NOTE | 2023-11-23 09:34 | P.PN ---
Subjective Progress Note Date: 11/23/23 Mirella San, is an 78-year-old female who presented to [facility] emergency room with a chief complaint of worsening shortness of breath She was evaluated in the emergency room vital examination on presentation revealed a temperature of 97.5 pulse 77 respiration 20 blood pressure 108/77 pulse ox 94% on room air 99% on 2 L nasal cannula Laboratory data revealed a white blood count of 7.0 hemoglobin 9.7 platelet count 244 BUN 19 creatinine 0.66 BNP 4070 troponin 0.012 Testing in the emergency room revealed chest x-ray done in the emergency room revealed consult radiation changes over the heart on the lateral view correlate for pneumonia and cardiomegaly with mild pulmonary vascular congestion Patient was admitted to medical floor for further evaluation and treatment On 11/22/2023 patient was seen and examined on the medical floor she is alert and oriented 3 in no apparent distress she is still complaining of shortness of breath and minimal cough otherwise she denies any complaints there is no fever or chills no headache or dizziness no chest pain no palpitation no nausea or vomiting no abdominal pain no diarrhea no blood in the stools no burning with urination no frequency or urgency no hematuria. Chest x-ray on presentation was suspicious for a consolidation, however no clinical evidence of pneumonia, no fever no elevation in white blood count, patient has minimal cough, at this time plan is to continue to was hold antibiotics, repeat chest x-ray, check pro- calcitonin, awaiting further input from pulmonary and cardiology, continue with IV Lasix at this time. On 11/22/2022 for patients alert and oriented 3. Patient reports some improvement with shortness of breath. Patient remains on IV Lasix. Pro- calcitonin 0.04. Chest x-ray completed showing interval clearing of the right lower lobe infiltrate and moderate interval worsening of left lower pleural E as described above. Pulmonary and cardiology services are following. Current vital signs temp 98.2, height 76, respiratory rate 16, blood pressure 93/56 with a pulse ox of 96% on 2 L Objective - Vital Signs Vital signs: Vital Signs Temp 98.2 F 11/23/23 07:08 Pulse 74 11/23/23 08:00 Resp 16 11/23/23 07:08 BP 93/56 11/23/23 07:08 Pulse Ox 95 11/23/23 07:50 FiO2 Intake & Output 11/22/23 11/23/23 11/23/23 18:59 06:59 18:59 Output Total 400 500 Balance -400 -500 Output: Urine 400 500 Other: Voiding Method External Catheter External Catheter - Exam In general patient is alert and oriented x 3 in no distress HEENT head normocephalic and atraumatic Neck is supple no JVD no goiter no lymphadenopathy no carotid bruit Chest examination reveals a scattered crackles bilaterally no wheezing Cardiac exam reveals irregular heart sounds S1 and S2 no gallops no murmurs Abdomen is soft nontender no organomegaly with normal bowel sounds Extremity exam reveals no edema no cyanosis or clubbing Neurological examination reveals no gross focal deficits - Labs CBC & Chem 7: 11/23/23 06:57 11/23/23 06:57 Labs: Abnormal Lab Results - Last 24 Hours (Table) 11/22/23 11/22/23 11/22/23 Range/Units 05:54 05:54 05:54 RBC 3.56 L (4.10-5.20) X 10*6/uL Hgb 9.4 L (12.0-15.0) g/dL Hct 32.5 L (37.2-46.3) % MCH 26.4 L (27.0-32.0) pg MCHC 28.9 L (32.0-37.0) g/dL RDW 16.6 H (11.5-14.5) % Immature Gran # 0.23 H (0.00-0.04) X 10*3/uL Eosinophils # 0.39 H (0.04-0.35) X 10*3/uL BUN/Creatinine Ratio 20.88 H (12.00-20.00) Ratio Calcium 8.5 L (8.7-10.3) mg/dL Iron 24 L (50-170) UG/DL % Saturation 5.91 L (12.00-45.00) Alkaline Phosphatase (38-126) U/L Albumin 3.4 L (3.8-4.9) g/dL Albumin/Globulin Ratio 1.21 L (1.60-3.17) Ratio 11/23/23 11/23/23 Range/Units 06:57 06:57 RBC (4.10-5.20) X 10*6/uL Hgb 10.2 L (12.0-15.0) g/dL Hct (37.2-46.3) % MCH (27.0-32.0) pg MCHC 28.8 L (32.0-37.0) g/dL RDW 16.4 H (11.5-14.5) % Immature Gran # (0.00-0.04) X 10*3/uL Eosinophils # (0.04-0.35) X 10*3/uL BUN/Creatinine Ratio (12.00-20.00) Ratio Calcium (8.7-10.3) mg/dL Iron (50-170) UG/DL % Saturation (12.00-45.00) Alkaline Phosphatase 130 H (38-126) U/L Albumin 3.3 L (3.8-4.9) g/dL Albumin/Globulin Ratio (1.60-3.17) Ratio Microbiology - Last 24 Hours (Table) 11/20/23 15:04 Blood Culture - Preliminary Blood 11/20/23 13:15 Blood Culture - Preliminary Blood Assessment and Plan Plan: Acute systolic congestive heart failure exacerbation Underlying history of valvular heart disease, with previous history of mitral valve repair and aortic valve replacement Underlying history of atrial fibrillation Underlying history of coronary artery disease with history of coronary artery by pass graft surgery Underlying history of nonischemic cardiomyopathy Underlying history of COPD Consult radiation on chest x-ray was possible pneumonia Underlying history of hypertension Underlying history of hyperlipidemia Underlying history of hypothyroidism Underlying history of osteoarthritis At this time patient is admitted to telemetry floor Home medications reviewed and reordered Patient was started on IV Lasix in the emergency room will continue Possible pulmonary consultation suggestive of pneumonia although no evidence of pneumonia clinically, no antibiotic were started at this time will monitor closely pulmonary consultation was requested For DVT prophylaxis subcu Lovenox For GI prophylaxis Protonix Will follow closely
--- NOTE | 2023-11-23 11:14 | P.PN ---
Subjective Progress Note Date: 11/23/23 History of present illness: Patient is a pleasant 78-year-old female with significant past medical history of persistent A-fib/flutter on Coumadin, cardiomyopathy with EF around 35%, valvular heart disease status post mitral valve repair and aortic valve replacement who presented to the hospital with worsening shortness of breath. Patient does follow-up with Dr. Flores in the office. She reports that her breathing has been getting progressively worse over the past 1 month. She does wear home O2 3 L nasal cannula. She denies any recent fevers. She does have occasional cough. She states she has been off of her Coumadin for the past 7 days per her primary doctor however she is unsure why this is being held. She denies any chest pain or pressure. Denies any dizziness or syncope. She had a prior echocardiogram 06/28/2023 with a EF 30-35%, RVSP 50, severe tricuspid regurgitation. She was recently admitted 11/02/2023 with similar complaints. Her blood pressure has been low with systolic BP [id number], she is on midodrine at home. Labs reviewed: Hemoglobin 9.7, potassium 4.7, creatinine 0.66, troponin negative, BNP 4070. Chest x-ray shows consolidation changes over the heart on the lateral view correlate for pneumonia, cardiomegaly and mild pulmonary vascular congestion.She does report feeling a little better today. 11/23/23 Pt reports her breathing feels slightly better today, no chest pain. Chest x-ray with clearing of RLL but worsening of opacity of LLL. Blood pressure stable in 80-100's. Creat stable 0.8, K+ 3.8. PHYSICAL EXAMINATION: This is a 78-year-old female in no apparent distress at the time of my examination. HEENT: Head is atraumatic, normocephalic. Pupils are equal, round. Sclerae anicteric. Conjunctivae are clear. Mucous membranes of the mouth are moist. Neck is supple. There is no jugular venous distention. No carotid bruit is heard. CHEST EXAMINATION: Lungs are diminished bilat with slight crackles. No chest wall tenderness is noted on palpation or with deep breathing. HEART EXAMINATION: Heart irregular rate and rhythm. S1, S2 heard. No gallops or rub. Systolic murmur 2/6. ABDOMEN: Soft, nontender. EXTREMITIES: 2+ peripheral pulses with no evidence of peripheral edema and no calf tenderness noted. NEUROLOGIC EXAMINATION: Patient is awake, alert and oriented x3. IMPRESSION AND PLAN: Persistent A-fib/flutter Cardiomyopathy, prior EF 35% from June 2023 Valvular heart disease status post mitral valve repair and aortic valve replacement Acute on chronic systolic heart failure Dyspnea Severe tricuspid regurgitation Pulmonary hypertension PLAN: We will continue with IV diuretics, increase to 40mg IV BID. Continue with heart failure regimen. Monitor I/O's and kidney function. We will continue to follow. I am dictating on behalf of Dr. Jesus Jordan's history/physical and assessment/plan. Objective - Vital Signs Vital signs: Vital Signs Temp 98.2 F 11/23/23 07:08 Pulse 74 11/23/23 08:00 Resp 16 11/23/23 07:08 BP 93/56 11/23/23 07:08 Pulse Ox 95 11/23/23 07:50 FiO2 Intake & Output 11/22/23 11/23/23 11/23/23 18:59 06:59 18:59 Output Total 400 500 Balance -400 -500 Output: Urine 400 500 Other: Voiding Method External Catheter External Catheter - Labs CBC & Chem 7: 11/23/23 06:57 11/23/23 06:57 Labs: Abnormal Lab Results - Last 24 Hours (Table) 11/22/23 11/22/23 11/22/23 Range/Units 05:54 05:54 05:54 RBC 3.56 L (4.10-5.20) X 10*6/uL Hgb 9.4 L (12.0-15.0) g/dL Hct 32.5 L (37.2-46.3) % MCH 26.4 L (27.0-32.0) pg MCHC 28.9 L (32.0-37.0) g/dL RDW 16.6 H (11.5-14.5) % Immature Gran # 0.23 H (0.00-0.04) X 10*3/uL Eosinophils # 0.39 H (0.04-0.35) X 10*3/uL BUN/Creatinine Ratio 20.88 H (12.00-20.00) Ratio Calcium 8.5 L (8.7-10.3) mg/dL Iron 24 L (50-170) UG/DL % Saturation 5.91 L (12.00-45.00) Alkaline Phosphatase (38-126) U/L Albumin 3.4 L (3.8-4.9) g/dL Albumin/Globulin Ratio 1.21 L (1.60-3.17) Ratio 11/23/23 11/23/23 Range/Units 06:57 06:57 RBC (4.10-5.20) X 10*6/uL Hgb 10.2 L (12.0-15.0) g/dL Hct (37.2-46.3) % MCH (27.0-32.0) pg MCHC 28.8 L (32.0-37.0) g/dL RDW 16.4 H (11.5-14.5) % Immature Gran # (0.00-0.04) X 10*3/uL Eosinophils # (0.04-0.35) X 10*3/uL BUN/Creatinine Ratio (12.00-20.00) Ratio Calcium (8.7-10.3) mg/dL Iron (50-170) UG/DL % Saturation (12.00-45.00) Alkaline Phosphatase 130 H (38-126) U/L Albumin 3.3 L (3.8-4.9) g/dL Albumin/Globulin Ratio (1.60-3.17) Ratio Microbiology - Last 24 Hours (Table) 11/20/23 15:04 Blood Culture - Preliminary Blood 11/20/23 13:15 Blood Culture - Preliminary Blood
[2023-11-23] MEDS: FUROSEMIDE 10 MG/ML 2 ML VIAL IV ONE (11:57)
--- NOTE | 2023-11-23 13:08 | P.PN ---
Subjective Progress Note Date: 11/23/23 This is a 78-year-old female patient was having increased shortness of breath. The patient was hospitalized for worsening shortness of breath mainly exertional without any significant edema lower extremities. The patient has been maintained on O2 at 2 L on outpatient basis and she was provided O2 appro ximately 4 weeks ago. She has history of congestion heart failure and valvular heart disease and she has undergone previous aortic valve replacement and mitral valve repair and the patient has chronic atrial fibrillation and previous history of SVTs and nonsustained V. tach's. She has as such an extensive cardiac history. She has a ex-smoker. She has history of rheumatoid arthritis and degenerative arthritis along with diverticular disease, hypothyroidism, kidney stones and iron deficiency anemia. The patient has maintained on Bumex 1 mg p.o. twice daily on an outpatient basis. Currently she is on 2 L of O2 nasal cannula. Reviewed the chest x-ray from this current admission and the patient has cardiomegaly and some increased interstitial markings bilaterally along with some consolidative changes on the lateral views specially on the left. Based on all this, pulmonary consultation was requested. Previous echocardiogram from 06/28/2023 showed impaired LV function with an EF of around 30 to 35%, severe RV dilatation and severe pulmonary hypertension and severe atrial dilatation. Right ventricular systolic pressure was around 50. The patient had mitral valve repair with mild regurgitation and the bioprosthetic aortic valve showed no significant regurgitation. A CTA of the chest was done on 10/20/2023 showed cardiomegaly with bilateral pleural effusion pulmonary edema without evidence of any pulmonary embolism. Similar findings were seen on earlier CT scan of the chest that was done on 08/23/2023. On today's evaluation of 11/23/2023, the patient is feeling better, less short of breath patient is awake and alert and oriented x 3. Procalcitonin level is at 0.04. Remains on IV Lasix. Remains on 2 L of oxygen by nasal cannula. White cell count at 6.7 with a hemoglobin 10.2. BUN is at 17 with a creatinine of 0.8. Fluid balance over the past 24 hours -1.9 L. Objective - Vital Signs Vital signs: Vital Signs Temp 98.2 F 11/23/23 07:08 Pulse 74 11/23/23 08:00 Resp 16 11/23/23 07:08 BP 93/56 11/23/23 07:08 Pulse Ox 95 11/23/23 07:50 FiO2 Intake & Output 11/22/23 11/23/23 11/23/23 18:59 06:59 18:59 Output Total 400 500 Balance -400 -500 Output: Urine 400 500 Other: Voiding Method External Catheter External Catheter External Catheter - Exam GENERAL EXAM: Alert, 78-year-old white female, comfortable in no apparent distress. The patient is currently, nasal cannula. HEAD: Normocephalic and atraumatic EYES: Normal reaction of pupils, equal size. NOSE: Clear with pink turbinates. THROAT: No erythema or exudates. NECK: No masses, no JVD. CHEST: No chest wall deformity. LUNGS: Equal air entry with bibasilar rales, and the crackles are more extensive in the mid and lower lung rios bilaterally and somewhat coarse. No conversational dyspnea or accessory muscle use while at rest.. CVS: S1 and S2 normal with grade 2 systolic murmur, regular rhythm. No other extra heart sounds ABDOMEN: No hepatosplenomegaly, active bowel sounds, no guarding or rigidity. SPINE: No scoliosis or deformity SKIN: No rashes CENTRAL NERVOUS SYSTEM: No focal deficits, tone is normal in all 4 extremities. EXTREMITIES: There is no peripheral edema, clubbing, or cyanosis. Peripheral pulses are intact. - Labs CBC & Chem 7: 11/23/23 06:57 11/23/23 06:57 Labs: Abnormal Lab Results - Last 24 Hours (Table) 11/22/23 11/23/23 11/23/23 Range/Units 05:54 06:57 06:57 Hgb 10.2 L (11.4-16.0) gm/dL MCHC 28.8 L (31.0-37.0) g/dL RDW 16.4 H (11.5-15.5) % Iron 24 L (50-170) UG/DL % Saturation 5.91 L (12.00-45.00) Alkaline Phosphatase 130 H (38-126) U/L Albumin 3.3 L (3.5-5.0) g/dL Microbiology - Last 24 Hours (Table) 11/20/23 15:04 Blood Culture - Preliminary Blood 11/20/23 13:15 Blood Culture - Preliminary Blood Assessment and Plan Plan: Acute on chronic hypoxemic respiratory failure, likely secondary to an exacerbation of systolic congestive heart failure and atrial fibrillation with rapid ventricular response. Chest x-ray on arrival shows cardiomegaly and pulmonary vascular congestion, more prominent than recent study. The patient's presentation remains consistent with CHF. I reviewed the previous CAT scan of the chest that was done October 2023 and August 2023 in both instances, there is interstitial edema and bilateral pleural effusions and there is no indication for an underlying interstitial lung disease. I favor CHF as the patient's main complicating factor for your ongoing shortness of breath. CHF with impaired LV function and ejection fraction of 30 to 35% along with chronic pulm hypertension and right-sided cardiac structure enlargement. No evidence of any mitral valve leak. No evidence of any aortic valve leak. History of valvular heart disease with previous aortic valve replacement with a bioprosthetic aortic valve and mitral valve repair Chronic atrial fibrillation History of nonischemic cardiomyopathy Chronic hypoxemic respiratory failure, secondary to above, maintained on O2 at 2 L/min nasal cannula Remote history of tobacco use Hypothyroidism Reviewed arthritis Degenerative arthritis Diverticular disease Hypothyroidism Nephrolithiasis Anemia of chronic disease Previous history of nonsustained VT Plan Clinically improving and stable at this point in time. Continues to diurese. Continue IV Lasix. Fluid balance has been negative at least 1.9 L over the past 24 hours. Oxygen requirements are essentially at baseline 2 L/min nasal cannula and there is no interval worsening in the patient's oxygenation in general. Agree on the current management Continue diuresis Patient is currently on IV Lasix and the patient remains on a Bumex on outpatient basis Cardiology reevaluation to optimize CHF Will continue to follow
[2023-11-23] MEDS: FUROSEMIDE 10 MG/ML 4 ML VIAL IV SCH (21:32)
[2023-11-24] MEDS: DAPAGLIFLOZIN PROPANEDIOL 10 MG TABLET PO SCH (08:54)
--- NOTE | 2023-11-24 09:53 | P.PN ---
Subjective HISTORY OF PRESENT ILLNESS: This is an 78-year-old female patient of Dr. Flores with a past medical history of persistent atrial fibrillation/flutter recently taken off of Coumadin, nonischemic cardiomyopathy, history of mitral valve repair, pulm hypertension, hypothyroidism, and chronic hypoxic respiratory failure on home oxygen. The patient is admitted to the hospital secondary to congestive heart failure. She is currently on IV Lasix. She denies any chest pain or pressure. She reports improvement in her shortness of breath but states she does not feel like she is back to her baseline. Vital signs are stable. Kidney function from this morning is pending. Echocardiogram in June 2023 revealed ejection fraction 30-35%, severe p ulmonary hypertension, bioprosthetic aortic valve, and mitral valve repair with mild MR Cardiac catheterization history: October 2017 revealing normal coronary arteries Cardioversion 07/05/2022 for atrial flutter with voodoo of sinus rhythm Aortic valve replacement 10/13/2017 with [employer] bioprosthetic aortic valve, mitral valve repair with [employer] annular flex band, clip ligation of the left atrial appendage. MATTHEW performed 01/30/2018 revealed sutured left atrial appendage, bioprosthetic aortic valve with normal functioning, mitral annuloplasty with mitral valve repair and mild mitral regurgitation. Moderate tricuspid regurgitation. No evidence of shunting across the intra-atrial septum. PHYSICAL EXAM: VITAL SIGNS: Reviewed. GENERAL: Well-developed in no acute distress. NECK: Supple. No JVD or thyromegaly LUNGS: Respirations even and unlabored. Lungs diminished with bibasilar crackles HEART: Irregular rate and rhythm. S1 and S2 heard. Systolic murmur noted EXTREMITIES: Normal range of motion. No clubbing or cyanosis. Peripheral pulses intact. No lower extremity edema ASSESSMENT: Shortness of breath Acute on chronic heart failure with reduced EF Persistent atrial fibrillation/flutter, not anticoagulated on an outpatient basis secondary to history of sutured left atrial appendage Nonischemic cardiomyopathy, ejection fraction 30 to 35% Normal coronary arteries, per cardiac catheterization 2018 Chronic hypoxic respiratory failure on home O2 History of bioprosthetic aortic valve replacement History of mitral valve repair Pulmonary hypertension Hypothyroidism PLAN: Continue IV Lasix 40 mg twice a day Daily weights, accurate intake and output, and monitoring of kidney function Patient was previously on Farxiga although she is no longer taking this for an unknown reason. Suspect patient's co-pay may have been too expensive. We will ask case management to check co-pay and will begin Farxiga 10 mg daily while inpatient Patient is not anticoagulated on an outpatient basis secondary to history of sutured left atrial appendage Continue additional cardiac medications Further recommendations pending patient course Nurse practitioner note has been reviewed by physician. Signing provider agrees with the documented findings, assessment, and plan of care documented by JEWEL CUPPING MACHINE OPERATOR as a scribe. Objective - Vital Signs Vital signs: Vital Signs Temp 97.8 F 11/24/23 08:00 Pulse 54 L 11/24/23 08:00 Resp 16 11/24/23 08:00 BP 86/59 11/24/23 08:00 Pulse Ox 98 11/24/23 08:00 FiO2 Intake & Output 11/23/23 11/24/23 11/24/23 18:59 06:59 18:59 Output Total 900 1400 Balance -900 -1400 Weight 43 kg Output: Urine 900 1400 Other: Voiding Method External Catheter External Catheter External Catheter - Labs CBC & Chem 7: 11/23/23 06:57 11/23/23 06:57 Labs: Microbiology - Last 24 Hours (Table) 11/20/23 15:04 Blood Culture - Preliminary Blood 11/20/23 13:15 Blood Culture - Preliminary Blood
[2023-11-24 11:22] LABS: Basophils # (A) 0.07 X 10*3/uL (0.00-0.10); Basophils % (A) 1.1 %; Eosinophils # (A) 0.37 X 10*3/uL (0.04-0.35); Eosinophils % (A) 5.6 %; HGB 9.9 g/dL (12.0-15.0); Lymphocytes % (A) 27.5 %; MCH 25.8 pg (27.0-32.0); MCHC 29.1 g/dL (32.0-37.0); MCV 88.8 FL (80.0-97.0); Mean Platelet Volume 11.9 FL (9.5-12.2); Monocytes # (A) 0.54 X 10*3/uL (0.20-1.00); Monocytes % (A) 8.2 %; NRBC Per 100 WBC 0 X 10*3/uL (0.00-0.01); Neutrophils # (A) 3.55 X 10*3/uL (1.80-7.70); Neutrophils % (A) 54.2 %; Platelet Count 235 X 10*3/uL (140-440); RBC 3.83 X 10*6/uL (4.10-5.20); RDW 16.6 % (11.5-14.5); WBC 6.55 X 10*3/uL (4.50-10.00)
[2023-11-24 11:55] LABS: ALT 11 U/L (8-44); AST 18 U/L (13-35); Albumin 3.4 g/dL (3.8-4.9); Albumin/Globulin Ratio 1.17 Ratio (1.60-3.17); Alkaline Phosphatase 121 U/L (41-126); BUN/Creat Ratio 14.22 Ratio (12.00-20.00); Blood Urea Nitrogen 12.8 mg/dL (9.0-27.0); Calcium 8.6 mg/dL (8.7-10.3); Carbon Dioxide 33.1 mmol/L (21.6-31.8); Chloride 96 mmol/L (96-109); Globulin 2.9 g/dL (1.6-3.3); Glucose 76 mg/dL (70-110); Potassium 3.7 mmol/L (3.5-5.5); Sodium 139 mmol/L (135-145); Total Bilirubin 0.6 mg/dL (0.3-1.2); Total Protein 6.3 g/dL (6.2-8.2)
--- NOTE | 2023-11-24 14:39 | P.PN ---
Subjective Progress Note Date: 11/24/23 Mirella San, is an 78-year-old female who presented to [facility] emergency room with a chief complaint of worsening shortness of breath She was evaluated in the emergency room vital examination on presentation revealed a temperature of 97.5 pulse 77 respiration 20 blood pressure 108/77 pulse ox 94% on room air 99% on 2 L nasal cannula Laboratory data revealed a white blood count of 7.0 hemoglobin 9.7 platelet count 244 BUN 19 creatinine 0.66 BNP 4070 troponin 0.012 Testing in the emergency room revealed chest x-ray done in the emergency room revealed consult radiation changes over the heart on the lateral view correlate for pneumonia and cardiomegaly with mild pulmonary vascular congestion Patient was admitted to medical floor for further evaluation and treatment On 11/22/2023 patient was seen and examined on the medical floor she is alert and oriented 3 in no apparent distress she is still complaining of shortness of breath and minimal cough otherwise she denies any complaints there is no fever or chills no headache or dizziness no chest pain no palpitation no nausea or vomiting no abdominal pain no diarrhea no blood in the stools no burning with urination no frequency or urgency no hematuria. Chest x-ray on presentation was suspicious for a consolidation, however no clinical evidence of pneumonia, no fever no elevation in white blood count, patient has minimal cough, at this time plan is to continue to was hold antibiotics, repeat chest x-ray, check pro- calcitonin, awaiting further input from pulmonary and cardiology, continue with IV Lasix at this time. On 11/22/2022 for patients alert and oriented 3. Patient reports some improvement with shortness of breath. Patient remains on IV Lasix. Pro- calcitonin 0.04. Chest x-ray completed showing interval clearing of the right lower lobe infiltrate and moderate interval worsening of left lower pleural E as described above. Pulmonary and cardiology services are following. Current vital signs temp 98.2, height 76, respiratory rate 16, blood pressure 93/56 with a pulse ox of 96% on 2 L On 11/24/2023 patient was seen and examined on the medical floor she is alert and oriented in no apparent distress she is still complaining of shortness of breath and minimal cough otherwise she denies any complaints there is no fever or chills no headache or dizziness no chest pain no palpitation no nausea or vomiting no abdominal pain no diarrhea no blood in the stools, and no urinary symptoms. Chest x-ray on presentation was suspicious for a consolidation, however no clinical evidence of pneumonia, no fever no elevation in white blood count, patient has minimal cough, at this time plan is to continue to was hold antibiotics, repeat chest x-ray, pro-calcitonin level is low at 0.04 no need for antibiotic continue with current management patient is improving gradually Objective - Vital Signs Vital signs: Vital Signs Temp 97.8 F 11/24/23 08:00 Pulse 54 L 11/24/23 08:00 Resp 16 11/24/23 08:00 BP 86/59 11/24/23 08:00 Pulse Ox 98 11/24/23 08:00 FiO2 Intake & Output 11/23/23 11/24/23 11/24/23 18:59 06:59 18:59 Output Total 900 1400 Balance -900 -1400 Weight 43 kg Output: Urine 900 1400 Other: Voiding Method External Catheter External Catheter External Catheter - Exam In general patient is alert and oriented x 3 in no distress HEENT head normocephalic and atraumatic Neck is supple no JVD no goiter no lymphadenopathy no carotid bruit Chest examination reveals a scattered crackles bilaterally no wheezing Cardiac exam reveals irregular heart sounds S1 and S2 no gallops no murmurs Abdomen is soft nontender no organomegaly with normal bowel sounds Extremity exam reveals no edema no cyanosis or clubbing Neurological examination reveals no gross focal deficits - Labs CBC & Chem 7: 11/24/23 06:09 11/24/23 06:09 Labs: Abnormal Lab Results - Last 24 Hours (Table) 11/24/23 Range/Units 06:09 RBC 3.83 L (4.10-5.20) X 10*6/uL Hgb 9.9 L (12.0-15.0) g/dL Hct 34.0 L (37.2-46.3) % MCH 25.8 L (27.0-32.0) pg MCHC 29.1 L (32.0-37.0) g/dL RDW 16.6 H (11.5-14.5) % Immature Gran # 0.22 H (0.00-0.04) X 10*3/uL Eosinophils # 0.37 H (0.04-0.35) X 10*3/uL Microbiology - Last 24 Hours (Table) 03/21/24 15:04 Blood Culture - Preliminary Blood 11/20/23 13:15 Blood Culture - Preliminary Blood Assessment and Plan Plan: Acute systolic congestive heart failure exacerbation Underlying history of valvular heart disease, with previous history of mitral valve repair and aortic valve replacement Underlying history of atrial fibrillation Underlying history of coronary artery disease with history of coronary artery bypass graft surgery Underlying history of nonischemic cardiomyopathy Underlying history of COPD Consult radiation on chest x-ray was possible pneumonia Underlying history of hypertension Underlying history of hyperlipidemia Underlying history of hypothyroidism Underlying history of osteoarthritis At this time patient is admitted to telemetry floor Home medications reviewed and reordered Patient was started on IV Lasix in the emergency room will continue Possible pulmonary consultation suggestive of pneumonia although no evidence of pneumonia clinically, no antibiotic were started at this time will monitor closely pulmonary consultation was requested For DVT prophylaxis subcu Lovenox For GI prophylaxis Protonix Will follow closely
--- NOTE | 2023-11-24 15:19 | P.PN ---
Subjective Progress Note Date: 11/24/23 This is a 78-year-old female patient was having increased shortness of breath. The patient was hospitalized for worsening shortness of breath mainly exertional without any significant edema lower extremities. The patient has been maintained on O2 at 2 L on outpatient basis and she was provided O2 approx imately 4 weeks ago. She has history of congestion heart failure and valvular heart disease and she has undergone previous aortic valve replacement and mitral valve repair and the patient has chronic atrial fibrillation and previous history of SVTs and nonsustained V. tach's. She has as such an extensive cardiac history. She has a ex-smoker. She has history of rheumatoid arthritis and degenerative arthritis along with diverticular disease, hypothyroidism, kidney stones and iron deficiency anemia. The patient has maintained on Bumex 1 mg p.o. twice daily on an outpatient basis. Currently she is on 2 L of O2 nasal cannula. Reviewed the chest x-ray from this current admission and the patient has cardiomegaly and some increased interstitial markings bilaterally along with some consolidative changes on the lateral views specially on the left. Based on all this, pulmonary consultation was requested. Previous echocardiogram from 06/28/2023 showed impaired LV function with an EF of around 30 to 35%, severe RV dilatation and severe pulmonary hypertension and severe atrial dilatation. Right ventricular systolic pressure was around 50. The patient had mitral valve repair with mild regurgitation and the bioprosthetic aortic valve showed no significant regurgitation. A CTA of the chest was done on 10/20/2023 showed cardiomegaly with bilateral pleural effusion pulmonary edema without evidence of any pulmonary embolism. Similar findings were seen on earlier CT scan of the chest that was done on 08/23/2023. On today's evaluation of 11/23/2023, the patient is feeling better, less short of breath patient is awake and alert and oriented x 3. Procalcitonin level is at 0.04. Remains on IV Lasix. Remains on 2 L of oxygen by nasal cannula. White cell count at 6.7 with a hemoglobin 10.2. BUN is at 17 with a creatinine of 0.8. Fluid balance over the past 24 hours -1.9 L. The patient is seen today November 24, 2023 in follow-up on the regular medical floor. She is currently resting comfortably in bed. Awake and alert in no acute distress. Maintaining good O2 saturations in the 90s on 2 L/min per nasal cannula. She is continued on diuretics. Diuresing well. Currently -2.3 L. White count 6.5. Hemoglobin 9.9. Platelets 235. Sodium 139. Potassium 3.7. Bicarb 13. BUN 0.9. Glucose 76. Calcitonin was negative. Lovenox for DVT prophylaxis. Objective - Vital Signs Vital signs: Vital Signs Temp 97.9 F 11/24/23 14:00 Pulse 57 L 11/24/23 14:00 Resp 16 11/24/23 14:00 BP 102/50 11/24/23 14:00 Pulse Ox 95 11/24/23 14:00 FiO2 Intake & Output 11/23/23 11/24/23 11/24/23 18:59 06:59 18:59 Output Total 900 1400 Balance -900 -1400 Weight 43 kg Output: Urine 900 1400 Other: Voiding Method External Catheter External Catheter External Catheter - Exam GENERAL EXAM: Alert, pleasant frail 78-year-old female, on 2 L nasal cannula, comfortable in no apparent distress. HEAD: Normocephalic. EYES: Normal reaction of pupils, equal size. NOSE: Clear with pink turbinates. THROAT: No erythema or exudates. NECK: No masses, no JVD. CHEST: No chest wall deformity. LUNGS: Equal air entry with faint crackles in the bilateral bases. CVS: S1 and S2 normal with no audible murmur, regular rhythm. ABDOMEN: No hepatosplenomegaly, normal bowel sounds, no guarding or rigidity. SPINE: No scoliosis or deformity SKIN: No rashes CENTRAL NERVOUS SYSTEM: No focal deficits, tone is normal in all 4 extremities. EXTREMITIES: There is no peripheral edema. No clubbing, no cyanosis. Peripheral pulses are intact. - Labs CBC & Chem 7: 11/24/23 06:09 11/24/23 06:09 Labs: Abnormal Lab Results - Last 24 Hours (Table) 11/24/23 11/24/23 Range/Units 06:09 06:09 RBC 3.83 L (4.10-5.20) X 10*6/uL Hgb 9.9 L (12.0-15.0) g/dL Hct 34.0 L (37.2-46.3) % MCH 25.8 L (27.0-32.0) pg MCHC 29.1 L (32.0-37.0) g/dL RDW 16.6 H (11.5-14.5) % Immature Gran # 0.22 H (0.00-0.04) X 10*3/uL Eosinophils # 0.37 H (0.04-0.35) X 10*3/uL Carbon Dioxide 33.1 H (21.6-31.8) mmol/L Calcium 8.6 L (8.7-10.3) mg/dL Albumin 3.4 L (3.8-4.9) g/dL Albumin/Globulin Ratio 1.17 L (1.60-3.17) Ratio Microbiology - Last 24 Hours (Table) 11/20/23 15:04 Blood Culture - Preliminary Blood 11/20/23 13:15 Blood Culture - Preliminary Blood Assessment and Plan Assessment: Acute on chronic hypoxemic respiratory failure secondary to an exacerbation of systolic congestive heart failure and atrial fibrillation with rapid ventricular response. Chest x-ray on arrival shows cardiomegaly and pulmonary vascular congestion, more prominent than recent study. The patient's presentation remains consistent with CHF. The previous CAT scan of the chest that was done October 2023 and August 2023 in both instances, there is interstitial edema and bilateral pleural effusions and there is no indication for an underlying interstitial lung disease. CHF with impaired LV function and ejection fraction of 30 to 35% along with chronic pulmonary hypertension and right-sided cardiac structure enlargement. History of valvular heart disease with previous aortic valve replacement with a bioprosthetic aortic valve and mitral valve repair Chronic atrial fibrillation History of nonischemic cardiomyopathy Chronic hypoxemic respiratory failure, secondary to above, maintained on O2 at 2 L/min nasal cannula Remote history of tobacco use Hypothyroidism Reviewed arthritis Degenerative arthritis Diverticular disease Hypothyroidism Nephrolithiasis Anemia of chronic disease Previous history of nonsustained VT Plan: The patient was seen and evaluated Labs and medications reviewed Currently stable and on 2 L nasal cannula Continued on diuretics Diuresing well Continue the current treatment plan We will continue to follow I have personally seen and examined the patient, performed the documentation and the assessment and plan as written. Number of minutes spent on the visit: 10.
[2023-11-25 09:23] VITALS: BMI 21.1
--- NOTE | 2023-11-25 10:07 | P.PN ---
Subjective HISTORY OF PRESENT ILLNESS: This is an 78-year-old female patient of Dr. Flores with a past medical history of persistent atrial fibrillation/flutter recently taken off of Coumadin, nonischemic cardiomyopathy, history of mitral valve repair, pulm hypertension, hypothyroidism, and chronic hypoxic respiratory failure on home oxygen. The patient is admitted to the hospital secondary to congestive heart failure. She is currently on IV Lasix. She denies any chest pain or pressure. She reports improvement in her shortness of breath but states she does not feel like she is back to her baseline. Vital signs are stable. Kidney function from this morning is pending. Echocardiogram in June 2023 revealed ejection fraction 30-35%, severe p ulmonary hypertension, bioprosthetic aortic valve, and mitral valve repair with mild MR Cardiac catheterization history: October 2017 revealing normal coronary arteries Cardioversion 07/05/2022 for atrial flutter with hoahaoism of sinus rhythm Aortic valve replacement 10/13/2017 with Magna E[employer] bioprosthetic aortic valve, mitral valve repair with [employer] annular flex band, clip ligation of the left atrial appendage. MATTHEW performed 01/30/2018 revealed sutured left atrial appendage, bioprosthetic aortic valve with normal functioning, mitral annuloplasty with mitral valve repair and mild mitral regurgitation. Moderate tricuspid regurgitation. No evidence of shunting across the intra-atrial septum. Addendum entered and electronically signed by Perla Zuniga NP-C 11/24/23 11:23: Per case management, Farxiga is not covered by patients insurance and requires prior authorization. Prescription for Jardiance sent to the pharmacy. Jardiance co-pay is $43/month. Will prescribe Jardiance at discharge instead of Farixga. 11/25/2023 Patient examined this morning at the bedside. Patient denies chest pain or pressure. She reports improvement in her shortness of breath although she states she is not back to her baseline. She remains on IV diuretics. Kidney function from this morning remains pending. Discussed Jardiance co-pay with patient. Patient states she is able to afford $43 co-pay per month. PHYSICAL EXAM: VITAL SIGNS: Reviewed. GENERAL: Well-developed in no acute distress. NECK: Supple. No JVD or thyromegaly LUNGS: Respirations even and unlabored. Lungs diminished with a few crackles at the bases HEART: Irregular rate and rhythm. S1 and S2 heard. Systolic murmur noted EXTREMITIES: Normal range of motion. No clubbing or cyanosis. Peripheral pulses intact. No lower extremity edema ASSESSMENT: Shortness of breath Acute on chronic heart failure with reduced EF Persistent atrial fibrillation/flutter, not anticoagulated on an outpatient basis secondary to history of sutured left atrial appendage Nonischemic cardiomyopathy, ejection fraction 30 to 35% Normal coronary arteries, per cardiac catheterization 2017 Chronic hypoxic respiratory failure on home O2 History of bioprosthetic aortic valve replacement History of mitral valve repair Pulmonary hypertension Hypothyroidism PLAN: Continue IV Lasix 40 mg twice a day. Anticipate transitioning to oral diuretics tomorrow Daily weights, accurate intake and output, and monitoring of kidney function [facility]. Patient will be discharged home on Jardiance. Co-pay is $43 a month which patient states she is able to afford. Patient is not anticoagulated on an outpatient basis secondary to history of sutured left atrial appendage Continue additional cardiac medications Further recommendations pending patient course Nurse practitioner note has been reviewed by physician. Signing provider agrees with the documented findings, assessment, and plan of care documented by [employer] as a scribe. Objective - Vital Signs Vital signs: Vital Signs Temp 97.4 F L 11/25/23 07:44 Pulse 74 11/25/23 07:44 Resp 17 11/25/23 07:44 BP 91/53 11/25/23 07:44 Pulse Ox 96 11/25/23 07:44 FiO2 Intake & Output 11/24/23 11/25/23 11/25/23 18:59 06:59 18:59 Intake Total 240 Balance 240 Weight 49 kg 49.1 kg Intake: Oral 240 Other: Voiding Method External Catheter External Catheter - Labs CBC & Chem 7: 11/24/23 06:09 11/24/23 06:09 Labs: Abnormal Lab Results - Last 24 Hours (Table) 11/24/23 11/24/23 Range/Units 06:09 06:09 RBC 3.83 L (4.10-5.20) X 10*6/uL Hgb 9.9 L (12.0-15.0) g/dL Hct 34.0 L (37.2-46.3) % MCH 25.8 L (27.0-32.0) pg MCHC 29.1 L (32.0-37.0) g/dL RDW 16.6 H (11.5-14.5) % Immature Gran # 0.22 H (0.00-0.04) X 10*3/uL Eosinophils # 0.37 H (0.04-0.35) X 10*3/uL Carbon Dioxide 33.1 H (21.6-31.8) mmol/L Calcium 8.6 L (8.7-10.3) mg/dL Albumin 3.4 L (3.8-4.9) g/dL Albumin/Globulin Ratio 1.17 L (1.60-3.17) Ratio
--- NOTE | 2023-11-25 10:41 | P.PN ---
Subjective Progress Note Date: 11/25/23 Mirella San, is an 78-year-old female who presented to [facility] emergency room with a chief complaint of worsening shortness of breath She was evaluated in the emergency room vital examination on presentation revealed a temperature of 97.5 pulse 77 respiration 20 blood pressure 108/77 pulse ox 94% on room air 99% on 2 L nasal cannula Laboratory data revealed a white blood count of 7.0 hemoglobin 9.7 platelet count 244 BUN 19 creatinine 0.66 BNP 4070 troponin 0.012 Testing in the emergency room revealed chest x-ray done in the emergency room revealed consult radiation changes over the heart on the lateral view correlate for pneumonia and cardiomegaly with mild pulmonary vascular congestion Patient was admitted to medical floor for further evaluation and treatment On 11/22/2023 patient was seen and examined on the medical floor she is alert and oriented 3 in no apparent distress she is still complaining of shortness of breath and minimal cough otherwise she denies any complaints there is no fever or chills no headache or dizziness no chest pain no palpitation no nausea or vomiting no abdominal pain no diarrhea no blood in the stools no burning with urination no frequency or urgency no hematuria. Chest x-ray on presentation was suspicious for a consolidation, however no clinical evidence of pneumonia, no fever no elevation in white blood count, patient has minimal cough, at this time plan is to continue to was hold antibiotics, repeat chest x-ray, check pro- calcitonin, awaiting further input from pulmonary and cardiology, continue with IV Lasix at this time. On 11/22/2022 for patients alert and oriented 3. Patient reports some improvement with shortness of breath. Patient remains on IV Lasix. Pro- calcitonin 0.04. Chest x-ray completed showing interval clearing of the right lower lobe infiltrate and moderate interval worsening of left lower pleural E as described above. Pulmonary and cardiology services are following. Current vital signs temp 98.2, height 76, respiratory rate 16, blood pressure 93/56 with a pulse ox of 96% on 2 L On 11/24/2023 patient was seen and examined on the medical floor she is alert and oriented in no apparent distress she is still complaining of shortness of breath and minimal cough otherwise she denies any complaints there is no fever or chills no headache or dizziness no chest pain no palpitation no nausea or vomiting no abdominal pain no diarrhea no blood in the stools, and no urinary symptoms. Chest x-ray on presentation was suspicious for a consolidation, however no clinical evidence of pneumonia, no fever no elevation in white blood count, patient has minimal cough, at this time plan is to continue to was hold antibiotics, repeat chest x-ray, pro-calcitonin level is low at 0.04 no need for antibiotic continue with current management patient is improving gradually On 11/25/2019 for patients alert and oriented 3 patient remains on IV Lasix patient reports she feels slightly improved. Current vital signs temp 97.4, heart rate 74, respiratory rate 17, blood pressure 9153 with a pulse ox of 96% on 2 L. patient denies chest pain. Patient denies nausea vomiting or diarrhea. Patient denies any urinary burning or frequency Objective - Vital Signs Vital signs: Vital Signs Temp 97.4 F L 11/25/23 07:44 Pulse 74 11/25/23 07:44 Resp 17 11/25/23 07:44 BP 91/53 11/25/23 07:44 Pulse Ox 96 11/25/23 07:44 FiO2 Intake & Output 11/24/23 11/25/23 11/25/23 18:59 06:59 18:59 Intake Total 240 Balance 240 Weight 49 kg 49.1 kg Intake: Oral 240 Other: Voiding Method External Catheter External Catheter - Exam In general patient is alert and oriented x 3 in no distress HEENT head normocephalic and atraumatic Neck is supple no JVD no goiter no lymphadenopathy no carotid bruit Chest examination reveals a scattered crackles bilaterally no wheezing Cardiac exam reveals irregular heart sounds S1 and S2 no gallops no murmurs Abdomen is soft nontender no organomegaly with normal bowel sounds Extremity exam reveals no edema no cyanosis or clubbing Neurological examination reveals no gross focal deficits - Labs CBC & Chem 7: 11/24/23 06:09 11/24/23 06:09 Labs: Abnormal Lab Results - Last 24 Hours (Table) 11/24/23 11/24/23 Range/Units 06:09 06:09 RBC 3.83 L (4.10-5.20) X 10*6/uL Hgb 9.9 L (12.0-15.0) g/dL Hct 34.0 L (37.2-46.3) % MCH 25.8 L (27.0-32.0) pg MCHC 29.1 L (32.0-37.0) g/dL RDW 16.6 H (11.5-14.5) % Immature Gran # 0.22 H (0.00-0.04) X 10*3/uL Eosinophils # 0.37 H (0.04-0.35) X 10*3/uL Carbon Dioxide 33.1 H (21.6-31.8) mmol/L Calcium 8.6 L (8.7-10.3) mg/dL Albumin 3.4 L (3.8-4.9) g/dL Albumin/Globulin Ratio 1.17 L (1.60-3.17) Ratio Assessment and Plan Plan: Acute systolic congestive heart failure exacerbation Underlying history of valvular heart disease, with previous history of mitral valve repair and aortic valve replacement Underlying history of atrial fibrillation Underlying history of coronary artery disease with history of coronary artery bypass graft surgery Underlying history of nonischemic cardiomyopathy Underlying history of COPD Consult radiation on chest x-ray was possible pneumonia Underlying history of hypertension Underlying history of hyperlipidemia Underlying history of hypothyroidism Underlying history of osteoarthritis At this time patient is admitted to telemetry floor Home medications reviewed and reordered Patient was started on IV Lasix in the emergency room will continue Possible pulmonary consultation suggestive of pneumonia although no evidence of pneumonia clinically, no antibiotic were started at this time will monitor closely pulmonary consultation was requested For DVT prophylaxis subcu Lovenox For GI prophylaxis Protonix Will follow closely
[2023-11-25 11:40] LABS: ALT 9 U/L (8-44); AST 20 U/L (13-35); Albumin 3.6 g/dL (3.8-4.9); Albumin/Globulin Ratio 1.12 Ratio (1.60-3.17); Alkaline Phosphatase 127 U/L (41-126); BUN/Creat Ratio 17.22 Ratio (12.00-20.00); Blood Urea Nitrogen 15.5 mg/dL (9.0-27.0); Calcium 8.8 mg/dL (8.7-10.3); Carbon Dioxide 35.6 mmol/L (21.6-31.8); Chloride 96 mmol/L (96-109); Globulin 3.2 g/dL (1.6-3.3); Glucose 108 mg/dL (70-110); Sodium 141 mmol/L (135-145); Total Bilirubin 0.7 mg/dL (0.3-1.2); Total Protein 6.8 g/dL (6.2-8.2)
[2023-11-25 12:07] LABS: HCT 34.9 % (37.2-46.3); HGB 10.2 g/dL (12.0-15.0); MCH 25.6 pg (27.0-32.0); MCHC 29.2 g/dL (32.0-37.0); MCV 87.7 FL (80.0-97.0); Mean Platelet Volume 10.5 FL (9.5-12.2); NRBC Per 100 WBC 0 X 10*3/uL (0.00-0.01); Platelet Count 247 X 10*3/uL (140-440); RBC 3.98 X 10*6/uL (4.10-5.20); RDW 16.4 % (11.5-14.5); WBC 7.74 X 10*3/uL (4.50-10.00)
[2023-11-25 12:08] LABS: Basophils # (A) 0.08 X 10*3/uL (0.00-0.10); Eosinophils # (A) 0.36 X 10*3/uL (0.04-0.35); Eosinophils % (A) 4.7 %; Lymphocytes # (A) 1.72 X 10*3/uL (0.90-5.00); Lymphocytes % (A) 22.2 %; Monocytes # (A) 0.73 X 10*3/uL (0.20-1.00); Monocytes % (A) 9.4 %; Neutrophils # (A) 4.64 X 10*3/uL (1.80-7.70)
--- NOTE | 2023-11-25 13:05 | XR ---
EXAMINATION TYPE: XR chest 1V portable DATE OF EXAM: 11/25/2023 COMPARISON: 11/23/2023 HISTORY: Shortness of breath TECHNIQUE: Single frontal view of the chest is obtained. FINDINGS: Heart is enlarged and there is a median sternotomy, atrial appendage, and prosthetic heart valve. Underlying COPD with bilateral consolidation and small effusion. Diffuse osteopenia with arth ropathy of the left shoulder and postsurgical change right shoulder. Degenerative change of the spine IMPRESSION: 1. Persistent pleural parenchymal changes most typical of mild CHF with small bilateral effusion and basilar infiltrate.
--- NOTE | 2023-11-25 13:59 | P.PN ---
Subjective Progress Note Date: 11/25/23 This is a 78-year-old female patient was having increased shortness of breath. The patient was hospitalized for worsening shortness of breath mainly exertional without any significant edema lower extremities. The patient has been maintained on O2 at 2 L on outpatient basis and she was provided O2 approx imately 4 weeks ago. She has history of congestion heart failure and valvular heart disease and she has undergone previous aortic valve replacement and mitral valve repair and the patient has chronic atrial fibrillation and previous history of SVTs and nonsustained V. tach's. She has as such an extensive cardiac history. She has a ex-smoker. She has history of rheumatoid arthritis and degenerative arthritis along with diverticular disease, hypothyroidism, kidney stones and iron deficiency anemia. The patient has maintained on Bumex 1 mg p.o. twice daily on an outpatient basis. Currently she is on 2 L of O2 nasal cannula. Reviewed the chest x-ray from this current admission and the patient has cardiomegaly and some increased interstitial markings bilaterally along with some consolidative changes on the lateral views specially on the left. Based on all this, pulmonary consultation was requested. Previous echocardiogram from 06/28/2023 showed impaired LV function with an EF of around 30 to 35%, severe RV dilatation and severe pulmonary hypertension and severe atrial dilatation. Right ventricular systolic pressure was around 50. The patient had mitral valve repair with mild regurgitation and the bioprosthetic aortic valve showed no significant regurgitation. A CTA of the chest was done on 10/20/2023 showed cardiomegaly with bilateral pleural effusion pulmonary edema without evidence of any pulmonary embolism. Similar findings were seen on earlier CT scan of the chest that was done on 08/23/2023. On today's evaluation of 11/23/2023, the patient is feeling better, less short of breath patient is awake and alert and oriented x 3. Procalcitonin level is at 0.04. Remains on IV Lasix. Remains on 2 L of oxygen by nasal cannula. White cell count at 6.7 with a hemoglobin 10.2. BUN is at 17 with a creatinine of 0.8. Fluid balance over the past 24 hours -1.9 L. The patient is seen today November 24, 2023 in follow-up on the regular medical floor. She is currently resting comfortably in bed. Awake and alert in no acute distress. Maintaining good O2 saturations in the 90s on 2 L/min per nasal cannula. She is continued on diuretics. Diuresing well. Currently -2.3 L. White count 6.5. Hemoglobin 9.9. Platelets 235. Sodium 139. Potassium 3.7. Bicarb 13. BUN 0.9. Glucose 76. Calcitonin was negative. Lovenox for DVT prophylaxis. The patient is seen today November 25, 2023 in follow-up on the regular medical floor. She is awake and alert in no acute distress. Sitting up in bed. Having breakfast. Maintaining good O2 saturations in the upper 90s on 2 L/min per nasal cannula. She is afebrile. Hemodynamically stable. Chest x-ray continues to show persistent pleural-parenchymal changes most typical of mild congestive heart failure and small bilateral effusions with basilar infiltrates. Blood cultures revealed no growth. White count 7.7. Hemoglobin 10.2. Platelets 247. Sodium 141. Potassium 3.0. Bicarb 36. BUN 16. Creatinine 0.9. Glucose 108. Remains on IV diuretics. Objective - Vital Signs Vital signs: Vital Signs Temp 97.8 F 11/25/23 13:00 Pulse 64 11/25/23 13:00 Resp 16 11/25/23 13:00 BP 95/56 11/25/23 13:00 Pulse Ox 98 11/25/23 13:00 FiO2 Intake & Output 11/24/23 11/25/23 11/25/23 18:59 06:59 18:59 Intake Total 240 Balance 240 Weight 49 kg 49.1 kg Intake: Oral 240 Other: Voiding Method External Catheter External Catheter - Exam GENERAL EXAM: Alert, 78-year-old female, resting in bed, on 2 L nasal cannula, in no apparent distress. HEAD: Normocephalic. EYES: Normal reaction of pupils, equal size. NOSE: Clear with pink turbinates. THROAT: No erythema or exudates. NECK: No masses, no JVD. CHEST: No chest wall deformity. LUNGS: Equal air entry with faint crackles in the bilateral bases. CVS: S1 and S2 normal with no audible murmur, regular rhythm. ABDOMEN: No hepatosplenomegaly, normal bowel sounds, no guarding or rigidity. SPINE: No scoliosis or deformity SKIN: No rashes CENTRAL NERVOUS SYSTEM: No focal deficits, tone is normal in all 4 extremities. EXTREMITIES: There is no peripheral edema. No clubbing, no cyanosis. Peripheral pulses are intact. - Labs CBC & Chem 7: 11/25/23 06:25 11/25/23 06:25 Labs: Abnormal Lab Results - Last 24 Hours (Table) 11/25/23 11/25/23 Range/Units 06:25 06:25 RBC 3.98 L (4.10-5.20) X 10*6/uL Hgb 10.2 L (12.0-15.0) g/dL Hct 34.9 L (37.2-46.3) % MCH 25.6 L (27.0-32.0) pg MCHC 29.2 L (32.0-37.0) g/dL RDW 16.4 H (11.5-14.5) % Immature Gran # 0.21 H (0.00-0.04) X 10*3/uL Eosinophils # 0.36 H (0.04-0.35) X 10*3/uL Potassium 3.0 L (3.5-5.5) mmol/L Carbon Dioxide 35.6 H (21.6-31.8) mmol/L Alkaline Phosphatase 127 H (41-126) U/L Albumin 3.6 L (3.8-4.9) g/dL Albumin/Globulin Ratio 1.12 L (1.60-3.17) Ratio Assessment and Plan Assessment: Acute on chronic hypoxemic respiratory failure secondary to an exacerbation of systolic congestive heart failure and atrial fibrillation with rapid ventricular response. Chest x-ray on arrival shows cardiomegaly and pulmonary vascular congestion, more prominent than recent study. The patient's presentation remains consistent with CHF. The previous CAT scan of the chest that was done October 2023 and August 2023 in both instances, there is interstitial edema and bilateral pleural effusions and there is no indication for an underlying interstitial lung disease. CHF with impaired LV function and ejection fraction of 30 to 35% along with chronic pulmonary hypertension and right-sided cardiac structure enlargement. History of valvular heart disease with previous aortic valve replacement with a bioprosthetic aortic valve and mitral valve repair Chronic atrial fibrillation History of nonischemic cardiomyopathy Chronic hypoxemic respiratory failure, secondary to above, maintained on O2 at 2 L/min nasal cannula Remote history of tobacco use Hypothyroidism Reviewed arthritis Degenerative arthritis Diverticular disease Hypothyroidism Nephrolithiasis Anemia of chronic disease Previous history of nonsustained VT Plan: The patient was seen and evaluated Labs and medications reviewed Currently stable and on 2 L nasal cannula Continue the current treatment plan Home once cleared by cardiology We will continue to follow I have personally seen and examined the patient, performed the documentation and the assessment and plan as written. Number of minutes spent on the visit: 10.
[2023-11-26 08:26] LABS: Basophils # (A) 0.05 X 10*3/uL (0.00-0.10); Basophils % (A) 0.8 %; Eosinophils # (A) 0.23 X 10*3/uL (0.04-0.35); Eosinophils % (A) 3.7 %; HCT 37.1 % (37.2-46.3); HGB 10.9 g/dL (12.0-15.0); Lymphocytes # (A) 1.37 X 10*3/uL (0.90-5.00); MCH 26.3 pg (27.0-32.0); MCHC 29.4 g/dL (32.0-37.0); MCV 89.4 FL (80.0-97.0); Mean Platelet Volume 9.9 FL (9.5-12.2); Monocytes # (A) 0.59 X 10*3/uL (0.20-1.00); Monocytes % (A) 9.5 %; NRBC Per 100 WBC 0 X 10*3/uL (0.00-0.01); Neutrophils # (A) 3.88 X 10*3/uL (1.80-7.70); Neutrophils % (A) 62.1 %; Platelet Count 231 X 10*3/uL (140-440); RBC 4.15 X 10*6/uL (4.10-5.20); RDW 16.4 % (11.5-14.5); WBC 6.24 X 10*3/uL (4.50-10.00)
[2023-11-26 09:04] LABS: NT-Pro-B-Type Natriuretic Pept 2063 pg/mL (0-450)
[2023-11-26 09:05] LABS: ALT 11 U/L (8-44); AST 14 U/L (13-35); Albumin 3.8 g/dL (3.8-4.9); Albumin/Globulin Ratio 1.23 Ratio (1.60-3.17); Alkaline Phosphatase 121 U/L (41-126); BUN/Creat Ratio 17.67 Ratio (12.00-20.00); Blood Urea Nitrogen 15.9 mg/dL (9.0-27.0); Calcium 9.2 mg/dL (8.7-10.3); Chloride 94 mmol/L (96-109); Globulin 3.1 g/dL (1.6-3.3); Glucose 113 mg/dL (70-110); Potassium 3.2 mmol/L (3.5-5.5); Sodium 141 mmol/L (135-145); Total Bilirubin 0.9 mg/dL (0.3-1.2); Total Protein 6.9 g/dL (6.2-8.2)
[2023-11-26] MEDS ORDERED: Potassium Replacement Protocol 1 EACH MISC MISCELLANE PRN (09:34)
--- NOTE | 2023-11-26 11:06 | P.DS ---
Providers Date of admission: 11/24/23 12:37 Expected date of discharge: 11/26/23 Attending physician: Olya Olson Consults: 11/21/23 12:20 Consult Physician Routine Consulting Provider: Alexx Flores Consult Reason/Comments: dyspnea Do you want consulting provider notified?: Yes 11/21/23 12:21 Consult Physician Routine Consulting Provider: Liv Peralta Consult Reason/Comments: dyspnea Do you want consulting provider notified?: Yes Primary care physician: Olya Olson [facility] Course: discharge diagnosis Acute systolic congestive heart failure exacerbation Underlying history of valvular heart disease, with previous history of mitral valve repair and aortic valve replacement Underlying history of atrial fibrillation Underlying history of coronary artery disease with history of coronary artery bypass graft surgery Underlying history of nonischemic cardiomyopathy Underlying history of COPD Consult radiation on chest x-ray was possible pneumonia Underlying history of hypertension Underlying history of hyperlipidemia Underlying history of hypothyroidism Underlying history of osteoarthritis Hospital course Mirella San, is an 78-year-old female who presented to [facility] emergency room with a chief complaint of worsening shortness of breath She was evaluated in the emergency room vital examination on presentation revealed a temperature of 97.5 pulse 77 respiration 20 blood pressure 108/77 pulse ox 94% on room air 99% on 2 L nasal cannula Laboratory data revealed a white blood count of 7.0 hemoglobin 9.7 platelet count 244 BUN 19 creatinine 0.66 BNP 4070 troponin 0.012 Testing in the emergency room revealed chest x-ray done in the emergency room revealed consult radiation changes over the heart on the lateral view correlate for pneumonia and cardiomegaly with mild pulmonary vascular congestion Patient was admitted to medical floor for further evaluation and treatment On 11/22/2023 patient was seen and examined on the medical floor she is alert and oriented 3 in no apparent distress she is still complaining of shortness of breath and minimal cough otherwise she denies any complaints there is no fever or chills no headache or dizziness no chest pain no palpitation no nausea or vomiting no abdominal pain no diarrhea no blood in the stools no burning with urination no frequency or urgency no hematuria. Chest x-ray on presentation was suspicious for a consolidation, however no clinical evidence of pneumonia, no fever no elevation in white blood count, patient has minimal cough, at this time plan is to continue to was hold antibiotics, repeat chest x-ray, check pro- calcitonin, awaiting further input from pulmonary and cardiology, continue with IV Lasix at this time. On 11/22/2022 for patients alert and oriented 3. Patient reports some improvement with shortness of breath. Patient remains on IV Lasix. Pro- calcitonin 0.04. Chest x-ray completed showing interval clearing of the right lower lobe infiltrate and moderate interval worsening of left lower pleural E as described above. Pulmonary and cardiology services are following. Current vital signs temp 98.2, height 76, respiratory rate 16, blood pressure 93/56 with a pulse ox of 96% on 2 L On 11/24/2023 patient was seen and examined on the medical floor she is alert and oriented in no apparent distress she is still complaining of shortness of breath and minimal cough otherwise she denies any complaints there is no fever or chills no headache or dizziness no chest pain no palpitation no nausea or vomiting no abdominal pain no diarrhea no blood in the stools, and no urinary symptoms. Chest x-ray on presentation was suspicious for a consolidation, however no clinical evidence of pneumonia, no fever no elevation in white blood count, patient has minimal cough, at this time plan is to continue to was hold antibiotics, repeat chest x-ray, pro-calcitonin level is low at 0.04 no need for antibiotic continue with current management patient is improving gradually On 11/25/2019 for patients alert and oriented 3 patient remains on IV Lasix patient reports she feels slightly improved. Current vital signs temp 97.4, heart rate 74, respiratory rate 17, blood pressure 9153 with a pulse ox of 96% on 2 L. patient denies chest pain. Patient denies nausea vomiting or diarrhea. Patient denies any urinary burning or frequency On 11/26/2023 patient's alert and oriented 3 discussed case with cardiology services patient cleared for discharge Bumex increased to 2 mg in the morning a nd 1 in the afternoon scripts were sent. Patient denies chest pain or shortness of breath. Patient denies nausea vomiting or diarrhea. Patient denies any urinary burning or frequency. Current vital signs temp 98.6, heart rate 70, respiratory rate 20, blood pressure 9457 with a pulse ox 100% on 2 L Patient Condition at Discharge: Stable Plan - Discharge Summary Discharge Rx Participant: No New Discharge Prescriptions: New Empagliflozin [Jardiance] 10 mg PO DAILY #30 tablet Bumetanide [BUMEX] 2 mg PO DAILY #30 tablet Continue Aspirin 81 mg PO DAILY 30 Days #30 tab Ascorbic Acid [Vitamin C] 500 mg PO DAILY 30 Days #30 tab Cholecalciferol (Vitamin D3) [Vitamin D3 (125 MCG = 5,000 IU)] 125 mcg PO DAILY 30 Days #30 cap HYDROcodone/APAP 10-325MG [Barnhart 10-325] 1 tab PO Q8H PRN 3 Days #12 tab PRN Reason: Pain Metoprolol Tartrate [Lopressor] 25 mg PO BID 30 Days #60 tab Midodrine [ProAmatine] 5 mg PO AC-TID 30 Days #90 tab Ipratropium-Albuterol Nebulize [Duoneb 0.5 mg-3 mg/3 ml Soln] 3 ml INHALATION RT-Q6H PRN PRN Reason: Shortness Of Breath Levothyroxine Sodium [Synthroid] 150 mcg PO DAILY Changed Bumetanide [BUMEX] 1 mg PO DAILY 30 Days #30 tab Discharge Medication List HYDROcodone/APAP 10-325MG [Barnhart 10-325] 1 tab PO Q8H PRN 3 Days #12 tab 09/14/23 [Rx] Ascorbic Acid [Vitamin C] 500 mg PO DAILY 30 Days #30 tab 11/05/23 [Rx] Aspirin 81 mg PO DAILY 30 Days #30 tab 11/05/23 [Rx] Cholecalciferol (Vitamin D3) [Vitamin D3 (125 MCG = 5,000 IU)] 125 mcg PO DAILY 30 Days #30 cap 11/05/23 [Rx] Metoprolol Tartrate [Lopressor] 25 mg PO BID 30 Days #60 tab 11/05/23 [Rx] Midodrine [ProAmatine] 5 mg PO AC-TID 30 Days #90 tab 11/05/23 [Rx] Ipratropium-Albuterol Nebulize [Duoneb 0.5 mg-3 mg/3 ml Soln] 3 ml INHALATION RT-Q6H PRN 11/20/23 [History] Levothyroxine Sodium [Synthroid] 150 mcg PO DAILY 11/20/23 [History] Empagliflozin [Jardiance] 10 mg PO DAILY #30 tablet 11/24/23 [Rx] Bumetanide [BUMEX] 1 mg PO DAILY 30 Days #30 tab 11/26/23 [Rx] Bumetanide [BUMEX] 2 mg PO DAILY #30 tablet 11/26/23 [Rx] Follow up Appointment(s)/Referral(s): Alexx Flores MD [STAFF PHYSICIAN] - 1 Week None,Stated [REFERRING] - 1-2 days Olya Olson MD [Primary Care Provider] - 1 Week Activity/Diet/Wound Care/Special Instructions: Activity as tolerated Diet heart healthy Discharge Disposition: HOME WITH HOME HEALTH SERVICES
--- NOTE | 2023-11-26 11:08 | P.PN ---
Subjective HISTORY OF PRESENT ILLNESS: This is an 78-year-old female patient of Dr. Flores with a past medical history of persistent atrial fibrillation/flutter recently taken off of Coumadin, nonischemic cardiomyopathy, history of mitral valve repair, pulm hypertension, hypothyroidism, and chronic hypoxic respiratory failure on home oxygen. The patient is admitted to the hospital secondary to congestive heart failure. She is currently on IV Lasix. She denies any chest pain or pressure. She reports improvement in her shortness of breath but states she does not feel like she is back to her baseline. Vital signs are stable. Kidney function from this morning is pending. Echocardiogram in June 2023 revealed ejection fraction 30-35%, severe p ulmonary hypertension, bioprosthetic aortic valve, and mitral valve repair with mild MR Cardiac catheterization history: October 2017 revealing normal coronary arteries Cardioversion 07/05/2022 for atrial flutter with mandaen of sinus rhythm Aortic valve replacement 10/13/2017 with [employer]a [employer] bioprosthetic aortic valve, mitral valve repair with [employer] annular flex band, clip ligation of the left atrial appendage. MATTHEW performed 01/30/2018 revealed sutured left atrial appendage, bioprosthetic aortic valve with normal functioning, mitral annuloplasty with mitral valve repair and mild mitral regurgitation. Moderate tricuspid regurgitation. No evidence of shunting across the intra-atrial septum. Addendum entered and electronically signed by Perla Zuniga NP-C 11/24/23 11:23: Per case management, Farxiga is not covered by patients insurance and requires prior authorization. Prescription for Jardiance sent to the pharmacy. Jardiance co-pay is $43/month. Will prescribe Jardiance at discharge instead of Farixga. 11/25/2023 Patient examined this morning at the bedside. Patient denies chest pain or pressure. She reports improvement in her shortness of breath although she states she is not back to her baseline. She remains on IV diuretics. Kidney function from this morning remains pending. Discussed Jardiance co-pay with patient. Patient states she is able to afford $43 co-pay per month. 11/26/2023 Patient examined this morning at the bedside. Patient denies chest pain or pressure. She denies any shortness of breath. Vital signs are stable. She remains on IV diuretics. Kidney function from this morning is pending. PHYSICAL EXAM: VITAL SIGNS: Reviewed. GENERAL: Well-developed in no acute distress. NECK: Supple. No JVD or thyromegaly LUNGS: Respirations even and unlabored. Lungs diminished with a few crackles at the bases HEART: Irregular rate and rhythm. S1 and S2 heard. Systolic murmur noted EXTREMITIES: Normal range of motion. No clubbing or cyanosis. Peripheral pulses intact. No lower extremity edema ASSESSMENT: Shortness of breath Acute on chronic heart failure with reduced EF Persistent atrial fibrillation/flutter, not anticoagulated on an outpatient basis secondary to history of sutured left atrial appendage Nonischemic cardiomyopathy, ejection fraction 30 to 35% Normal coronary arteries, per cardiac catheterization 2018 Chronic hypoxic respiratory failure on home O2 History of bioprosthetic aortic valve replacement History of mitral valve repair Pulmonary hypertension Hypothyroidism PLAN: Discontinue IV Lasix. Upon discharge patient to take Bumex 2 mg in the morning and 1 mg in the afternoon Daily weights, accurate intake and output, and monitoring of kidney function [facility] while inpatient. Patient will be discharged home on Jardiance. Co-pay is $43 a month which patient states she is able to afford. Patient is not anticoagulated on an outpatient basis secondary to history of sutured left atrial appendage Continue additional cardiac medications Patient is stable for discharge home today from a cardiac standpoint She is to follow-up on an outpatient basis Nurse practitioner note has been reviewed by physician. Signing provider agrees with the documented findings, assessment, and plan of care documented by HOME MANAGER as a scribe. Objective - Vital Signs Vital signs: Vital Signs Temp 98.6 F 11/26/23 08:10 Pulse 70 11/26/23 08:10 Resp 20 11/26/23 08:10 BP 94/57 11/26/23 08:10 Pulse Ox 97 11/26/23 08:15 FiO2 Intake & Output 11/25/23 11/26/23 11/26/23 18:59 06:59 18:59 Intake Total 820 200 Output Total 1000 Balance -180 200 Weight 49.1 kg 49 kg Intake: Oral 820 200 Output: Urine 1000 Other: Voiding Method External Catheter External Catheter External Catheter - Labs CBC & Chem 7: 11/26/23 05:52 11/26/23 05:52 Labs: Abnormal Lab Results - Last 24 Hours (Table) 11/25/23 11/25/23 11/26/23 Range/Units 06:25 06:25 05:52 RBC 3.98 L (4.10-5.20) X 10*6/uL Hgb 10.2 L 10.9 L (12.0-15.0) g/dL Hct 34.9 L 37.1 L (37.2-46.3) % MCH 25.6 L 26.3 L (27.0-32.0) pg MCHC 29.2 L 29.4 L (32.0-37.0) g/dL RDW 16.4 H 16.4 H (11.5-14.5) % Immature Gran # 0.21 H 0.12 H (0.00-0.04) X 10*3/uL Eosinophils # 0.36 H (0.04-0.35) X 10*3/uL Potassium 3.0 L (3.5-5.5) mmol/L Chloride (96-109) mmol/L Carbon Dioxide 35.6 H (21.6-31.8) mmol/L Glucose (70-110) mg/dL Alkaline Phosphatase 127 H (41-126) U/L NT-Pro-B Natriuret Pep (0-450) pg/mL Albumin 3.6 L (3.8-4.9) g/dL Albumin/Globulin Ratio 1.12 L (1.60-3.17) Ratio 11/26/23 Range/Units 05:52 RBC (4.10-5.20) X 10*6/uL Hgb (12.0-15.0) g/dL Hct (37.2-46.3) % MCH (27.0-32.0) pg MCHC (32.0-37.0) g/dL RDW (11.5-14.5) % Immature Gran # (0.00-0.04) X 10*3/uL Eosinophils # (0.04-0.35) X 10*3/uL Potassium 3.2 L (3.5-5.5) mmol/L Chloride 94 L (96-109) mmol/L Carbon Dioxide 35.0 H (21.6-31.8) mmol/L Glucose 113 H (70-110) mg/dL Alkaline Phosphatase (41-126) U/L NT-Pro-B Natriuret Pep 2063 H (0-450) pg/mL Albumin (3.8-4.9) g/dL Albumin/Globulin Ratio 1.23 L (1.60-3.17) Ratio Microbiology - Last 24 Hours (Table) 11/20/23 15:04 Blood Culture - Final Blood 11/20/23 13:15 Blood Culture - Final Blood
[2023-11-26] MEDS: POTASSIUM CHLORIDE ER 20 MEQ TAB.ER PO STA (12:51)
[2023-11-26 13:24] VITALS: BP 117/57; PULSE 52; RESP 16; TEMP 97.6
--- NOTE | 2023-11-26 13:50 | P.PN ---
Subjective Progress Note Date: 11/26/23 This is a 78-year-old female patient was having increased shortness of breath. The patient was hospitalized for worsening shortness of breath mainly exertional without any significant edema lower extremities. The patient has been maintained on O2 at 2 L on outpatient basis and she was provided O2 approx imately 4 weeks ago. She has history of congestion heart failure and valvular heart disease and she has undergone previous aortic valve replacement and mitral valve repair and the patient has chronic atrial fibrillation and previous history of SVTs and nonsustained V. tach's. She has as such an extensive cardiac history. She has a ex-smoker. She has history of rheumatoid arthritis and degenerative arthritis along with diverticular disease, hypothyroidism, kidney stones and iron deficiency anemia. The patient has maintained on Bumex 1 mg p.o. twice daily on an outpatient basis. Currently she is on 2 L of O2 nasal cannula. Reviewed the chest x-ray from this current admission and the patient has cardiomegaly and some increased interstitial markings bilaterally along with some consolidative changes on the lateral views specially on the left. Based on all this, pulmonary consultation was requested. Previous echocardiogram from 06/28/2023 showed impaired LV function with an EF of around 30 to 35%, severe RV dilatation and severe pulmonary hypertension and severe atrial dilatation. Right ventricular systolic pressure was around 50. The patient had mitral valve repair with mild regurgitation and the bioprosthetic aortic valve showed no significant regurgitation. A CTA of the chest was done on 10/20/2023 showed cardiomegaly with bilateral pleural effusion pulmonary edema without evidence of any pulmonary embolism. Similar findings were seen on earlier CT scan of the chest that was done on 08/23/2023. On today's evaluation of 11/23/2023, the patient is feeling better, less short of breath patient is awake and alert and oriented x 3. Procalcitonin level is at 0.04. Remains on IV Lasix. Remains on 2 L of oxygen by nasal cannula. White cell count at 6.7 with a hemoglobin 10.2. BUN is at 17 with a creatinine of 0.8. Fluid balance over the past 24 hours -1.9 L. The patient is seen today November 24, 2023 in follow-up on the regular medical floor. She is currently resting comfortably in bed. Awake and alert in no acute distress. Maintaining good O2 saturations in the 90s on 2 L/min per nasal cannula. She is continued on diuretics. Diuresing well. Currently -2.3 L. White count 6.5. Hemoglobin 9.9. Platelets 235. Sodium 139. Potassium 3.7. Bicarb 13. BUN 0.9. Glucose 76. Calcitonin was negative. Lovenox for DVT prophylaxis. The patient is seen today November 25, 2023 in follow-up on the regular medical floor. She is awake and alert in no acute distress. Sitting up in bed. Having breakfast. Maintaining good O2 saturations in the upper 90s on 2 L/min per nasal cannula. She is afebrile. Hemodynamically stable. Chest x-ray continues to show persistent pleural-parenchymal changes most typical of mild congestive heart failure and small bilateral effusions with basilar infiltrates. Blood cultures revealed no growth. White count 7.7. Hemoglobin 10.2. Platelets 247. Sodium 141. Potassium 3.0. Bicarb 36. BUN 16. Creatinine 0.9. Glucose 108. Remains on IV diuretics. The patient is seen today November 26, 2023 in follow-up on the regular medical floor. She is resting comfortably in bed. Awake and alert in no acute distress. She remains quite weak and debilitated. She is maintaining O2 saturations in the 90s on 2 L/min per nasal cannula she is afebrile. Hemodynamically stable blood culture revealed no growth. White count 6.2. Hemoglobin 10.9. Platelets 231. Sodium 141. Potassium 3.2. Bicarb 35. BUN 16. Creatinine 0.9. Glucose 113. proBNP 2062. She is continued on bronchodilators. Remains on IV diuretics. Lovenox for DVT prophylaxis. Objective - Vital Signs Vital signs: Vital Signs Temp 97.6 F 11/26/23 12:50 Pulse 52 L 11/26/23 12:50 Resp 16 11/26/23 12:50 BP 117/57 11/26/23 12:50 Pulse Ox 98 11/26/23 12:50 FiO2 Intake & Output 11/25/23 11/26/23 11/26/23 18:59 06:59 18:59 Intake Total 820 200 Output Total 1000 Balance -180 200 Weight 49.1 kg 49 kg Intake: Oral 820 200 Output: Urine 1000 Other: Voiding Method External Catheter External Catheter External Catheter - Exam GENERAL EXAM: Alert, weak, frail 78-year-old female, on 2 L nasal cannula, in no apparent distress. HEAD: Normocephalic. EYES: Normal reaction of pupils, equal size. NOSE: Clear with pink turbinates. THROAT: No erythema or exudates. NECK: No masses, no JVD. CHEST: No chest wall deformity. LUNGS: Equal air entry with faint crackles in the bilateral bases. CVS: S1 and S2 normal with no audible murmur, regular rhythm. ABDOMEN: No hepatosplenomegaly, normal bowel sounds, no guarding or rigidity. SPINE: No scoliosis or deformity SKIN: No rashes CENTRAL NERVOUS SYSTEM: No focal deficits, tone is normal in all 4 extremities. EXTREMITIES: There is no peripheral edema. No clubbing, no cyanosis. Peripheral pulses are intact. - Labs CBC & Chem 7: 11/26/23 05:52 11/26/23 05:52 Labs: Abnormal Lab Results - Last 24 Hours (Table) 11/26/23 11/26/23 Range/Units 05:52 05:52 Hgb 10.9 L (12.0-15.0) g/dL Hct 37.1 L (37.2-46.3) % MCH 26.3 L (27.0-32.0) pg MCHC 29.4 L (32.0-37.0) g/dL RDW 16.4 H (11.5-14.5) % Immature Gran # 0.12 H (0.00-0.04) X 10*3/uL Potassium 3.2 L (3.5-5.5) mmol/L Chloride 94 L (96-109) mmol/L Carbon Dioxide 35.0 H (21.6-31.8) mmol/L Glucose 113 H (70-110) mg/dL NT-Pro-B Natriuret Pep 2063 H (0-450) pg/mL Albumin/Globulin Ratio 1.23 L (1.60-3.17) Ratio Microbiology - Last 24 Hours (Table) 11/20/23 15:04 Blood Culture - Final Blood 11/20/23 13:15 Blood Culture - Final Blood Assessment and Plan Assessment: Acute on chronic hypoxemic respiratory failure secondary to an exacerbation of systolic congestive heart failure and atrial fibrillation with rapid ventricular response. Chest x-ray on arrival shows cardiomegaly and pulmonary vascular congestion, more prominent than recent study. The patient's presentation remains consistent with CHF. The previous CAT scan of the chest that was done October 2023 and August 2023 in both instances, there is interstitial edema and bilateral pleural effusions and there is no indication for an underlying interstitial lung disease. CHF with impaired LV function and ejection fraction of 30 to 35% along with chronic pulmonary hypertension and right-sided cardiac structure enlargement History of valvular heart disease with previous aortic valve replacement with a bioprosthetic aortic valve and mitral valve repair Chronic atrial fibrillation History of nonischemic cardiomyopathy Chronic hypoxemic respiratory failure, secondary to above, maintained on O2 at 2 L/min nasal cannula Remote history of tobacco use Hypothyroidism Reviewed arthritis Degenerative arthritis Diverticular disease Hypothyroidism Nephrolithiasis Anemia of chronic disease Previous history of nonsustained VT Plan: The patient was seen and evaluated Labs and medications reviewed Currently stable and on 2 L nasal cannula Continue the current treatment plan Would benefit from subacute rehab The patient is requesting to go home with her at discharge I have personally seen and examined the patient, performed the documentation and the assessment and plan as written. Number of minutes spent on the visit: 10.
== END 2023-11-26 16:00 | disposition home health service (06) | DRG 291 ==
LOC: EC 12:43 → 5NMEDONC 18:02 → OBSVTOIN 11-24 12:37
PROVIDERS: ADMIT Internal Medicine; ATTEND Internal Medicine
DX: I11.0 Hypertensive heart disease with heart failure (principal); I50.23 Acute on chronic systolic (congestive) heart failure; J96.21 Acute and chronic respiratory failure with hypoxia; J44.0 Chronic obstructive pulmonary disease with (acute) lower respiratory infection; I48.19 Other persistent atrial fibrillation; K57.92 Diverticulitis of intestine, part unspecified, without perforation or abscess without bleeding; I48.92 Unspecified atrial flutter; I10 Essential (primary) hypertension; Z95.3 Presence of xenogenic heart valve; Z95.1 Presence of aortocoronary bypass graft; I25.10 Atherosclerotic heart disease of native coronary artery without angina pectoris; I42.8 Other cardiomyopathies; M19.90 Unspecified osteoarthritis, unspecified site; E78.5 Hyperlipidemia, unspecified; Z99.81 Dependence on supplemental oxygen; D63.8 Anemia in other chronic diseases classified elsewhere; I27.20 Pulmonary hypertension, unspecified; I07.1 Rheumatic tricuspid insufficiency; F17.210 Nicotine dependence, cigarettes, uncomplicated; E03.9 Hypothyroidism, unspecified; Z79.890 Hormone replacement therapy; M06.9 Rheumatoid arthritis, unspecified; D50.9 Iron deficiency anemia, unspecified; Z79.82 Long term (current) use of aspirin; Z79.899 Other long term (current) drug therapy; Z82.49 Family history of ischemic heart disease and other diseases of the circulatory system; Z90.710 Acquired absence of both cervix and uterus; Z96.642 Presence of left artificial hip joint; Z87.442 Personal history of urinary calculi; Z98.42 Cataract extraction status, left eye; Z98.41 Cataract extraction status, right eye; Z96.1 Presence of intraocular lens; Z88.8 Allergy status to other drugs, medicaments and biological substances
CPT/HCPCS: 36415; 71045; 71046; 80053; 82607; 82746; 83540; 83550; 83605; 83735; 83880; 84145; 84484; 85025; 85610; 85730; 87040; 87636; 93005; 94640; 94760; 96374; 99285

== ENCOUNTER 2023-12-19 14:45 | Emergency (ER) | payer MEDICARE, OTHER ==
[2023-12-19 15:03] VITALS: TEMP 97
[2023-12-19 15:56] LABS: Anisocytosis Slight; Basophils # (A) 0.1 k/uL (0-0.2); Basophils % (A) 1 %; Eosinophils # (A) 0.3 k/uL (0-0.7); Eosinophils % (A) 5 %; HCT 33.2 % (34.0-46.0); HGB 10.1 gm/dL (11.4-16.0); Hypochromasia Moderate; Lymphocytes # (A) 1.5 k/uL (1.0-4.8); Lymphocytes % (A) 22 %; MCH 26.4 pg (25.0-35.0); MCHC 30.3 g/dL (31.0-37.0); MCV 87.2 fL (80.0-100.0); Mean Platelet Volume 8.3; Monocytes # (A) 0.3 k/uL (0-1.0); Monocytes % (A) 5 %; Neutrophils # (A) 4.5 k/uL (1.3-7.7); Neutrophils % (A) 65 %; Platelet Count 231 k/uL (150-450); RBC 3.81 m/uL (3.80-5.40); RDW 16.8 % (11.5-15.5); WBC 6.9 k/uL (3.8-10.6)
[2023-12-19 16:12] LABS: INR 1.1 (<1.2); Partial Thromboplastin Time 26.8 sec (22.0-30.0); Prothrombin Time 12.1 sec (10.0-12.5)
--- NOTE | 2023-12-19 16:29 | XR ---
EXAMINATION TYPE: XR chest 2V DATE OF EXAM: 12/19/2023 COMPARISON: 11/25/2023 HISTORY: 78 year-old female shortness of breath, difficulty breathing TECHNIQUE: AP and lateral views FINDINGS: Median sternotomy wires and prosthetic aortic valve. Heart mildly enlarged. Diffuse interstitial opac ities. Blunted left costophrenic angle and retrocardiac opacity. Aeration has worsened from prior exa m. Reverse right shoulder arthroplasty. IMPRESSION: Correlate for CHF with interstitial pulmonary edema. Small left pleural effusion with prominent adjac ent atelectasis and/or consolidation.
--- NOTE | 2023-12-19 16:36 | ED ---
SOB HPI - General Chief Complaint: Shortness of Breath Stated Complaint: SOB Time Seen by Provider: 12/19/23 14:57 Source: patient, EMS Mode of arrival: EMS Limitations: no limitations - History of Present Illness Initial Comments: This patient is an 78-year-old woman sent from her long-term care facility to have evaluation for dyspnea and for pulse oximetry reading. She is post to be using nasal cannula oxygen, but at her facility, she took the oxygen off and did not want to wear it. She states that she was short of breath until the oxygen was put back on by EMS. She states that now she feels okay. Patient denies chest pain. No fever or chills. No productive cough. MD Complaint: shortness of breath -: hour(s) Severity scale (1-10): 0 Consistency: constant Improves With: oxygen Worsens With: nothing Known History Of: COPD, congestive heart failure Context: other (Not wearing oxygen) Treatments Prior to Arrival: oxygen - Related Data Home Oxygen Therapy: Yes Home Medications Medication Instructions Recorded Confirmed Ipratropium-Albuterol Nebulize 3 ml INHALATION RT-Q6H PRN 11/20/23 12/22/23 [Duoneb 0.5 mg-3 mg/3 ml Soln] Levothyroxine Sodium [Synthroid] 150 mcg PO DAILY 11/20/23 12/22/23 Bumetanide [BUMEX] 1 mg PO DAILY@1600 12/22/23 12/22/23 Bumetanide [BUMEX] 2 mg PO DAILY@0900 12/22/23 12/22/23 Previous Rx's Medication Instructions Recorded HYDROcodone/APAP 10-325MG [[place] 1 tab PO Q8H PRN 3 Days #12 tab 09/14/23 10-325] Ascorbic Acid [Vitamin C] 500 mg PO DAILY 30 Days #30 tab 11/05/23 Aspirin 81 mg PO DAILY 30 Days #30 tab 11/05/23 Cholecalciferol (Vitamin D3) 125 mcg PO DAILY 30 Days #30 cap 11/05/23 [Vitamin D3 (125 MCG = 5,000 IU)] Metoprolol Tartrate [Lopressor] 25 mg PO BID 30 Days #60 tab 11/05/23 Midodrine [ProAmatine] 5 mg PO AC-TID 30 Days #90 tab 11/05/23 Empagliflozin [Jardiance] 10 mg PO DAILY #30 tablet 11/24/23 Allergies Allergy/AdvReac Type Severity Reaction Status Date / Time lisinopril AdvReac Cough Verified 12/22/23 16:18 Review of Systems ROS Statement: Those systems with pertinent positive or pertinent negative responses have been documented in the HPI. ROS Other: All systems not noted in ROS Statement are negative. Constitutional: Denies: fever, chills Respiratory: Reports: dyspnea. Denies: cough Cardiovascular: Reports: orthopnea. Denies: chest pain, palpitations, edema, syncope Gastrointestinal: Denies: abdominal pain, vomiting, diarrhea Genitourinary: Denies: dysuria, hematuria Musculoskeletal: Denies: back pain Skin: Denies: rash Neurological: Denies: headache, weakness Past Medical History Past Medical History: Atrial Fibrillation, Heart Failure, COPD, GERD/Reflux, Osteoarthritis (OA), Renal Disease, Rheumatoid Arthritis (RA), Supraventricular Tachycardia (SVT), Thyroid Disorder Additional Past Medical History / Comment(s): Valvular heart disease with previo us aortic valve replacement and a mitral valve repair, congestion heart failure, Paroxysmal Afib, history of SVT, history of nonsustained VT, SOB with exertion, home O2 at 2L/NC usually prn but lately ATC, arthritis, RA several joints, current L elbow pain/swelling-had "injection", nephrolithiasis, hypothyroid, diverticular dx, UTI, iron deficiency anemia. 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 History of Any Multi-Drug Resistant Organisms: None Reported Past Surgical History: Coronary Bypass/CABG, Heart Catheterization, Hysterectomy, Joint Replacement, Orthopedic Surgery Additional Past Surgical History / Comment(s): Geoff total knees arthroplasty,lt hip arthroplasty, goiter removed 1962, partial thyroidectomy, cataracts removed with lens implants, REVERSE TOTAL RIGHT SHOULDER; Rotator cuff R shoulder, cerv ical fusion/injections, colonoscopy 2017(next after 5yr), MATTHEW, valve surgery at [facility] 10/13/17 Prosthetic Aortic valve and mitral valve repair. Total abdominal hysterectomy in the 1980s. Past Anesthesia/Blood Transfusion Reactions: Postoperative Nausea & Vomiting (PONV) Past Psychological History: No Psychological Hx Reported Smoking Status: Former smoker Past Alcohol Use History: None Reported Past Drug Use History: None Reported - Past Family History Father Family Medical History: Cancer, Myocardial Infarction ([place]) Additional Family Medical History / Comment(s): in his 80's of a mi. Colon cancer. Mother Family Medical History: No Reported History Additional Family Medical History / Comment(s): age 88 . hx smoking. Daughter(s) Family Medical History: Cancer Additional Family Medical History / Comment(s): from vulvar cancer. General Exam Limitations: no limitations General appearance: alert, in no apparent distress Head exam: Present: atraumatic, normocephalic Eye exam: Present: normal appearance. Absent: scleral icterus, conjunctival injection Neck exam: Present: normal inspection Respiratory exam: Present: normal lung sounds bilaterally, rales. Absent: respiratory distress, wheezes, rhonchi, stridor, accessory muscle use Cardiovascular Exam: Present: regular rate, normal rhythm, normal heart sounds. Absent: systolic murmur, diastolic murmur, rubs, gallop GI/Abdominal exam: Present: soft. Absent: distended, tenderness, guarding, rebound, rigid, mass Extremities exam: Present: normal inspection, normal capillary refill, pedal edema. Absent: joint swelling, calf tenderness Back exam: Present: normal inspection. Absent: CVA tenderness (R), CVA tenderness (L) Neurological exam: Present: alert Skin exam: Present: warm, dry, intact, normal color. Absent: rash Course Vital Signs 12/19/23 12/19/23 12/19/23 14:47 14:49 14:53 Temperature 97.0 F L Pulse Rate 77 80 Respiratory 18 20 18 Rate Blood Pressure 88/65 102/63 O2 Sat by Pulse 97 94 L Oximetry 12/19/23 12/19/23 12/19/23 16:49 18:09 20:50 Temperature Pulse Rate 87 84 85 Respiratory 20 20 18 Rate Blood Pressure 104/60 98/60 101/73 O2 Sat by Pulse 95 94 L 99 Oximetry Medical Decision Making - Medical Decision Making The patient had chest x-ray which I interpreted as showing evidence of congestive heart failure. No acute infiltrate or pneumothorax. Was pt. sent in by a medical professional or institution (, PA, GARNETT [employer]ER, urgent care, hospital, or group home...) When possible be specific @ -[No] Did you speak to anyone other than the patient for history (EMS, parent, family, police, friend...)? What history was obtained from this source @ -[No] Did you review nursing and triage notes (agree or disagree)? Why? @ -[I reviewed and agree with nursing and triage notes] Were old charts reviewed (outside hosp., previous admission, EMS record, old EKG, old radiological studies, urgent care reports/EKG's, group home records)? Report findings @ -[No old charts were reviewed] Differential Diagnosis (chest pain, altered mental status, abdominal pain women, abdominal pain men, vaginal bleeding, weakness, fever, dyspnea, syncope, headache, dizziness, GI bleed, back pain, seizure, CVA, palpatations, mental health, musculoskeletal)? @ -[Differential Dyspnea: Coronary syndrome, arrhythmia, tamponade, asthma, COPD, pulmonary embolism, pneumonia, pneumothorax, pulmonary effusion, anaphylaxis, diabetic ketoacidosis, flailed chest, pulmonary contusion, diaphragmatic rupture, anemia, nicolas romuscular, this is not meant to be an all-inclusive list. ] EKG interpreted by me (3pts min.). @ -[I interpreted as above] X-rays interpreted by me (1pt min.). @ -[I interpreted as above CT interpreted by me (1pt min.). @ -[None done] U/S interpreted by me (1pt. min.). @ -[None done] What testing was considered but not performed or refused? (CT, X-rays, U/S, labs)? Why? @ -[None] What meds were considered but not given or refused? Why? @ -[None] Did you discuss the management of the patient with other professionals (professionals i.e. , PA, G[employer], lab, RT, psych nurse, health care social worker, speech therapy assistant, teacher, jailer/training officer, field nurse case manager)? Give summary @ -[No] Was smoking cessation discussed for >3mins.? @ -[No] Was critical care preformed (if so, how long)? @ -[No] Were there social determinants of health that impacted care today? How? (Homelessness, low income, unemployed, alcoholism, drug addiction, transportation, low edu. Level, literacy, decrease access to med. care, penitentiary, rehab)? @ -[No] Was there de-escalation of care discussed even if they declined (Discuss DNR or withdrawal of care, Hospice)? DNR status @ -[No] What co-morbidities impacted this encounter? (DM, HTN, Smoking, COPD, CAD, Cancer, CVA, ARF, Chemo, Hep., AIDS, mental health diagnosis, sleep apnea, morbid obesity)? @ -[History of CHF. COPD. Atrial fibrillation. Was patient admitted / discharged? Hospital course, mention meds given and route, prescriptions, significant lab abnormalities, going to OR and other pertinent info. @ -[Patient is an 78-year-old woman presenting to have evaluation of dyspnea. She does appear to have mild CHF exacerbation. Discussed admission for further treatment but at this point she would rather go home. We discussed the appropriate further care and follow-up as well as return parameters. Undiagnosed new problem with uncertain prognosis? @ -[No] Drug Therapy requiring intensive monitoring for toxicity (Heparin, Nitro, Insulin, Cardizem)? @ -[No] Were any procedures done? @ -[No] Diagnosis/symptom? @ -[Acute exacerbation of congestive heart failure Acute, or Chronic, or Acute on Chronic? @ -[Acute on chronic Uncomplicated (without systemic symptoms) or Complicated (systemic symptoms)? @ -[default] Side effects of treatment? @ -[No] Exacerbation, Progression, or Severe Exacerbation? @ -[Exacerbation Poses a threat to life or bodily function? How? (Chest pain, [place], [place], pneumonia, PE, COPD, DKA, ARF, appy, cholecystitis, CVA, Diverticulitis, Homicidal, Suicidal, threat to staff... and all critical care pts) @ -[Low likelihood - Lab Data Result diagrams: 12/19/23 15:45 12/19/23 15:45 Lab Results 12/19/23 12/19/23 12/19/23 Range/Units 15:45 15:45 15:45 WBC 6.9 (3.8-10.6) k/uL RBC 3.81 (3.80-5.40) m/uL Hgb 10.1 L (11.4-16.0) gm/dL Hct 33.2 L (34.0-46.0) % MCV 87.2 (80.0-100.0) fL MCH 26.4 (25.0-35.0) pg MCHC 30.3 L (31.0-37.0) g/dL RDW 16.8 H (11.5-15.5) % Plt Count 231 (150-450) k/uL MPV 8.3 Neutrophils % 65 % Lymphocytes % 22 % Monocytes % 5 % Eosinophils % 5 % Basophils % 1 % Neutrophils # 4.5 (1.3-7.7) k/uL Lymphocytes # 1.5 (1.0-4.8) k/uL Monocytes # 0.3 (0-1.0) k/uL Eosinophils # 0.3 (0-0.7) k/uL Basophils # 0.1 (0-0.2) k/uL Hypochromasia Moderate Anisocytosis Slight PT 12.1 (10.0-12.5) sec INR 1.1 (<1.2) APTT 26.8 (22.0-30.0) sec D-Dimer 2.63 H (<0.60) mg/L FEU Sodium 138 (137-145) mmol/L Potassium 3.5 (3.5-5.1) mmol/L Chloride 100 (98-107) mmol/L Carbon Dioxide 32 H (22-30) mmol/L Anion Gap 6 mmol/L BUN 15 (7-17) mg/dL Creatinine 0.76 (0.52-1.04) mg/dL Est GFR (CKD-EPI)AfAm 86 (>60 ml/min/1.73 sqM) Est GFR (CKD-EPI)NonAf 75 (>60 ml/min/1.73 sqM) Glucose 98 (74-99) mg/dL Plasma Lactic Acid Wilfred (0.7-2.0) mmol/L Calcium 9.0 (8.4-10.2) mg/dL Magnesium 1.9 (1.6-2.3) mg/dL Total Bilirubin 0.8 (0.2-1.3) mg/dL AST 26 (14-36) U/L ALT 12 (4-34) U/L Alkaline Phosphatase 132 H (38-126) U/L Troponin I (0.000-0.034) ng/mL NT-Pro-B Natriuret Pep 1520 pg/mL Total Protein 6.9 (6.3-8.2) g/dL Albumin 3.5 (3.5-5.0) g/dL Urine Color Urine Appearance (Clear) Urine pH (5.0-8.0) Ur Specific [place] (1.001-1.035) Urine Protein (Negative) Urine Glucose (UA) (Negative) Urine Ketones (Negative) Urine Blood (Negative) Urine Nitrite (Negative) Urine Bilirubin (Negative) Urine Urobilinogen (<2.0) mg/dL Ur Leukocyte Esterase (Negative) Urine RBC (0-5) /hpf Urine WBC (0-5) /hpf Ur Squamous Epith Cells (0-4) /hpf Urine Bacteria (None) /hpf Hyaline Casts (0-2) /lpf 12/19/23 12/19/23 12/19/23 Range/Units 15:45 15:45 19:15 WBC (3.8-10.6) k/uL RBC (3.80-5.40) m/uL Hgb (11.4-16.0) gm/dL Hct (34.0-46.0) % MCV (80.0-100.0) fL MCH (25.0-35.0) pg MCHC (31.0-37.0) g/dL RDW (11.5-15.5) % Plt Count (150-450) k/uL MPV Neutrophils % % Lymphocytes % % Monocytes % % Eosinophils % % Basophils % % Neutrophils # (1.3-7.7) k/uL Lymphocytes # (1.0-4.8) k/uL Monocytes # (0-1.0) k/uL Eosinophils # (0-0.7) k/uL Basophils # (0-0.2) k/uL Hypochromasia Anisocytosis PT (10.0-12.5) sec INR (<1.2) APTT (22.0-30.0) sec D-Dimer (<0.60) mg/L FEU Sodium (137-145) mmol/L Potassium (3.5-5.1) mmol/L Chloride (98-107) mmol/L Carbon Dioxide (22-30) mmol/L Anion Gap mmol/L BUN (7-17) mg/dL Creatinine (0.52-1.04) mg/dL Est GFR (CKD-EPI)AfAm (>60 ml/min/1.73 sqM) Est GFR (CKD-EPI)NonAf (>60 ml/min/1.73 sqM) Glucose (74-99) mg/dL Plasma Lactic Acid Wilfred 1.7 (0.7-2.0) mmol/L Calcium (8.4-10.2) mg/dL Magnesium (1.6-2.3) mg/dL Total Bilirubin (0.2-1.3) mg/dL AST (14-36) U/L ALT (4-34) U/L Alkaline Phosphatase (38-126) U/L Troponin I <0.012 (0.000-0.034) ng/mL NT-Pro-B Natriuret Pep pg/mL Total Protein (6.3-8.2) g/dL Albumin (3.5-5.0) g/dL Urine Color Yellow Urine Appearance Cloudy H (Clear) Urine pH 6.5 (5.0-8.0) Ur Specific [place] 1.022 (1.001-1.035) Urine Protein 1+ H (Negative) Urine Glucose (UA) Negative (Negative) Urine Ketones Negative (Negative) Urine Blood Small H (Negative) Urine Nitrite Positive H (Negative) Urine Bilirubin Negative (Negative) Urine Urobilinogen <2.0 (<2.0) mg/dL Ur Leukocyte Esterase Small H (Negative) Urine RBC 8 H (0-5) /hpf Urine WBC 18 H (0-5) /hpf Ur Squamous Epith Cells 1 (0-4) /hpf Urine Bacteria Moderate H (None) /hpf Hyaline Casts 2 (0-2) /lpf - EKG Data -: EKG Interpreted by [facility] EKG shows normal: axis (Normal), intervals (Normal) Rate: normal Interpretation: other (Rhythm appears to be atrial flutter with rate approximately 95 bpm) Disposition Clinical Impression: CHF exacerbation Disposition: HOME SELF-CARE Condition: Fair Instructions (If sedation given, give patient instructions): Heart Failure (DC) Is patient prescribed a controlled substance at d/c from ED?: No Referrals: Olya Olson MD [Primary Care Provider] - 1-2 days
[2023-12-19 16:43] LABS: ALT 12 U/L (4-34); AST 26 U/L (14-36); African American GFR (CKD) 86 (>60 ml/min/1.73 sqM); Albumin 3.5 g/dL (3.5-5.0); Alkaline Phosphatase 132 U/L (38-126); Anion Gap 6 mmol/L; Blood Urea Nitrogen 15 mg/dL (7-17); Carbon Dioxide 32 mmol/L (22-30); Chloride 100 mmol/L (98-107); Glucose 98 mg/dL (74-99); Magnesium 1.9 mg/dL (1.6-2.3); Non-African American GFR(CKD) 75 (>60 ml/min/1.73 sqM); Potassium 3.5 mmol/L (3.5-5.1); Sodium 138 mmol/L (137-145); Total Bilirubin 0.8 mg/dL (0.2-1.3); Total Protein 6.9 g/dL (6.3-8.2)
[2023-12-19] MEDS: FUROSEMIDE 10 MG/ML 2 ML VIAL IV ONE (16:43)
[2023-12-19 16:52] LABS: NT-Pro-B-Type Natriuretic Pept 1520 pg/mL
[2023-12-19 20:02] LABS: Appearance,Urine Cloudy (Clear); Bacteria,Urine Moderate /hpf; Bilirubin,Urine Negative (Negative); Blood,Urine Small (Negative); Color,Urine Yellow; Glucose,Urine (UA) Negative (Negative); Hyaline Casts,Urine 2 /lpf (0-2); Ketones,Urine Negative (Negative); Leukocyte Esterase,Urine Small (Negative); Nitrite,Urine Positive (Negative); PH, Urine 6.5 (5.0-8.0); Protein,Urine 1+ (Negative); RBC,Urine 8 /hpf (0-5); Specific Gravity,Urine 1.022 (1.001-1.035); Squamous Epithelial Cell,Urine 1 /hpf (0-4); Urobilinogen,Urine <2.0 mg/dL (<2.0); WBC,Urine 18 /hpf (0-5)
[2023-12-19 21:33] VITALS: BP 101/73; PULSE 85; RESP 18
== END 2023-12-19 21:00 | disposition home or self-care (01) ==
LOC: EC 14:45
DX: I50.9 Heart failure, unspecified (principal); J44.1 Chronic obstructive pulmonary disease with (acute) exacerbation; I48.0 Paroxysmal atrial fibrillation; Z87.891 Personal history of nicotine dependence; Z88.8 Allergy status to other drugs, medicaments and biological substances; Z79.899 Other long term (current) drug therapy; Z95.1 Presence of aortocoronary bypass graft; Z95.2 Presence of prosthetic heart valve
CPT/HCPCS: 36415; 93005; 85379; 83880; 80053; 83605; 83735; 84484; 85025; 85610; 85730; 81001; 71046; 99285; 96374; J1940

== ENCOUNTER 2023-12-22 13:24 | Inpatient (IN) | payer MEDICARE, OTHER ==
--- NOTE | 2023-12-22 13:41 | ED ---
General Adult HPI - General Stated complaint: DANIEL Time Seen by Provider: 12/22/23 13:25 Source: patient, EMS, RN notes reviewed, old records reviewed Mode of arrival: EMS - History of Present Illness Initial comments: This is an 78-year-old female who presents to the emergency department complaining of difficulty breathing. Patient states she woke up this morning and she was short of breath and it has not improved. Patient denies any chest pain palpitations. Patient denies any abdominal pain patient has nausea vomit diarrhea. Patient denies lightheadedness or dizziness. Patient denies any rece nt trauma. Patient denies any fever chills or cough. Patient states she just feels short of breath. - Related Data Home Medications Medication Instructions Recorded Confirmed Ipratropium-Albuterol Nebulize 3 ml INHALATION RT-Q6H PRN 11/20/23 12/22/23 [Duoneb 0.5 mg-3 mg/3 ml Soln] Levothyroxine Sodium [Synthroid] 150 mcg PO DAILY 11/20/23 12/22/23 Bumetanide [BUMEX] 1 mg PO DAILY@1600 12/22/23 12/22/23 Bumetanide [BUMEX] 2 mg PO DAILY@0900 12/22/23 12/22/23 Previous Rx's Medication Instructions Recorded HYDROcodone/APAP 10-325MG [[place] 1 tab PO Q8H PRN 3 Days #12 tab 09/14/23 10-325] Ascorbic Acid [Vitamin C] 500 mg PO DAILY 30 Days #30 tab 11/05/23 Aspirin 81 mg PO DAILY 30 Days #30 tab 11/05/23 Cholecalciferol (Vitamin D3) 125 mcg PO DAILY 30 Days #30 cap 11/05/23 [Vitamin D3 (125 MCG = 5,000 IU)] Metoprolol Tartrate [Lopressor] 25 mg PO BID 30 Days #60 tab 11/05/23 Midodrine [ProAmatine] 5 mg PO AC-TID 30 Days #90 tab 11/05/23 Empagliflozin [Jardiance] 10 mg PO DAILY #30 tablet 11/24/23 Allergies Allergy/AdvReac Type Severity Reaction Status Date / Time lisinopril AdvReac Cough Verified 12/22/23 16:18 Review of Systems ROS Statement: Those systems with pertinent positive or pertinent negative responses have been documented in the HPI. ROS Other: All systems not noted in ROS Statement are negative. Past Medical History Past Medical History: Atrial Fibrillation, Heart Failure, COPD, GERD/Reflux, Osteoarthritis (OA), Renal Disease, Rheumatoid Arthritis (RA), Supraventricular Tachycardia (SVT), Thyroid Disorder Additional Past Medical History / Comment(s): Valvular heart disease with previous aortic valve replacement and a mitral valve repair, congestion heart failure, Paroxysmal Afib, history of SVT, history of nonsustained VT, SOB with exertion, home O2 at 2L/NC usually prn but lately ATC, arthritis, RA several joints, current L elbow pain/swelling-had "injection", nephrolithiasis, hypothyroid, diverticular dx, UTI, iron deficiency anemia. PAST VP PURCHASING HISTORY: She has no history of STDs. History of Any Multi-Drug Resistant Organisms: None Reported Past Surgical History: Coronary Bypass/CABG, Heart Catheterization, Hysterectomy, Joint Replacement, Orthopedic Surgery Additional Past Surgical History / Comment(s): Geoff total knees arthroplasty,lt hip arthroplasty, goiter removed 1962, partial thyroidectomy, cataracts removed with lens implants, REVERSE TOTAL RIGHT SHOULDER; Rotator cuff R shoulder, cervical fusion/injections, colonoscopy 2016(next after 5yr), MATTHEW, valve surgery at [facility] 10/13/17 Prosthetic Aortic valve and mitral valve repair. Total abdominal hysterectomy in the 1980s. Past Anesthesia/Blood Transfusion Reactions: Postoperative Nausea & Vomiting (PONV) Past Psychological History: No Psychological Hx Reported Smoking Status: Former smoker Past Alcohol Use History: None Reported Past Drug Use History: None Reported - Past Family History Father Family Medical History: Cancer, Myocardial Infarction ([place]) Additional Family Medical History / Comment(s): in his 80's of a mi. Colon cancer. Mother Family Medical History: No Reported History Additional Family Medical History / Comment(s): age 88 . hx smoking. Daughter(s) Family Medical History: Cancer Additional Family Medical History / Comment(s): from vulvar cancer. General Exam - General Exam Comments Initial Comments: GENERAL: Patient is well-developed and well-nourished. Patient is nontoxic and well- hydrated and is in mild distress. ENT: Neck is soft and supple. No significant lymphadenopathy is noted. Oropharynx is clear. Moist mucous membranes. Neck has full range of motion without eliciting any pain. EYES: The sclera were anicteric and conjunctiva were pink and moist. Extraocular movements were intact and pupils were equal round and reactive to light. Eyelids were unremarkable. PULMONARY: Unlabored respirations. Good breath sounds bilaterally. Patient has crackles bilateral bases CARDIOVASCULAR: There is a regular rate and rhythm without any murmurs gallops or rubs. ABDOMEN: Soft and nontender with normal bowel sounds. SKIN: Skin is clear with no lesions or rashes and otherwise unremarkable. NEUROLOGIC: Patient is alert and oriented x3. Cranial nerves II through XII are grossly intact. Motor and sensory are also intact. Normal speech, volume and content. Symmetrical smile. MUSCULOSKELETAL: Normal extremities with adequate strength and full range of motion. No lower extremity swelling or edema. No calf tenderness. LYMPHATICS: No significant lymphadenopathy is noted PSYCHIATRIC: Normal psychiatric evaluation. Course Vital Signs 12/22/23 12/22/23 12/22/23 13:25 15:19 18:47 Temperature 97.8 F 97.9 F Pulse Rate 71 69 87 Respiratory 18 16 20 Rate Blood Pressure 105/75 96/71 123/63 O2 Sat by Pulse 97 98 100 Oximetry Medical Decision Making - Medical Decision Making EKG is interpreted by myself EKG shows atrial flutter at 82 bpm QRS is 72 QT interval 370 QTc is 408. EKG shows no obvious ST segment elevation Was pt. sent in by a medical professional or institution ([facility], NURSE, urgent care, hospital, or custodial...) When possible be specific @ -No Did you speak to anyone other than the patient for history (EMS, parent, family, police, friend...)? What history was obtained from this source @ -No Did you review nursing and triage notes (agree or disagree)? Why? @ -I reviewed and agree with nursing and triage notes Were old charts reviewed (outside hosp., previous admission, EMS record, old EKG, old radiological studies, urgent care reports/EKG's, custodial records)? Report findings @ -I compared this x-ray with the previous x-ray and it showed pulmonary edema similar to what it showed before. Differential Diagnosis (chest pain, altered mental status, abdominal pain women, abdominal pain men, vaginal bleeding, weakness, fever, dyspnea, syncope, headache, dizziness, GI bleed, back pain, seizure, CVA, palpatations, mental health, musculoskeletal)? @ -Differential Dyspnea: Coronary syndrome, arrhythmia, tamponade, asthma, COPD, pulmonary embolism, pneumonia, pneumothorax, pulmonary effusion, anaphylaxis, diabetic ketoacidosis, flailed chest, pulmonary contusion, diaphragmatic rupture, anemia, neuromuscular, this is not meant to be an all-inclusive list. EKG interpreted by me (3pts min.). @ -As above X-rays interpreted by me (1pt min.). @ -Chest x-ray shows pulmonary edema CT interpreted by me (1pt min.). @ -None done U/S interpreted by me (1pt. min.). @ -None done What testing was considered but not performed or refused? (CT, X-rays, U/S, labs)? Why? @ -None What meds were considered but not given or refused? Why? @ -None Did you discuss the management of the patient with other professionals (professionals i.e. , PA, NURSE, lab, RT, psych nurse, social sciences professor, quality assurance tech, teacher, workplace rehabilitation officer, rn case manager hospice)? Give summary @ -Spoke with Dr. Olson he agreed admit the patient admit the patient wrote admitting orders Was smoking cessation discussed for >3mins.? @ -No Was critical care preformed (if so, how long)? @ -No Were there social determinants of health that impacted care today? How? (Homelessness, low income, unemployed, alcoholism, drug addiction, transportation, low edu. Level, literacy, decrease access to med. care, halfway, rehab)? @ -No Was there de-escalation of care discussed even if they declined (Discuss DNR or withdrawal of care, Hospice)? DNR status @ -No What co-morbidities impacted this encounter? (DM, HTN, Smoking, COPD, CAD, Cancer, CVA, ARF, Chemo, Hep., AIDS, mental health diagnosis, sleep apnea, morbid obesity)? @ -None Was patient admitted / discharged? Hospital course, mention meds given and route, prescriptions, significant lab abnormalities, going to OR and other pertinent info. @ -Patient had mild pulmonary edema she received Lasix in the emergency department I spoke with Dr. Olson he agreed to admit or admit the patient and wrote admitting orders Undiagnosed new problem with uncertain prognosis? @ -No Drug Therapy requiring intensive monitoring for toxicity (Heparin, Nitro, Insulin, Cardizem)? @ -No Were any procedures done? @ -No Diagnosis/symptom? @ -Pulmonary Acute, or Chronic, or Acute on Chronic? @ -Acute Uncomplicated (without systemic symptoms) or Complicated (systemic symptoms)? @ -Comp Side effects of treatment? @ -No Exacerbation, Progression, or Severe Exacerbation? @ -No Poses a threat to life or bodily function? How? (Chest pain, USA, MS, pneumonia, PE, COPD, DKA, ARF, appy, cholecystitis, CVA, Diverticulitis, Homicidal, Suicidal, threat to staff... and all critical care pts) @ -Yes patient could become hypoxic this could lead to endorgan dysfunction - Lab Data Result diagrams: 12/22/23 13:42 12/22/23 13:42 Lab Results 12/22/23 12/22/23 12/22/23 Range/Units 13:42 13:42 13:42 WBC 8.8 (3.8-10.6) k/uL RBC 3.88 (3.80-5.40) m/uL Hgb 10.1 L (11.4-16.0) gm/dL Hct 33.9 L (34.0-46.0) % MCV 87.5 (80.0-100.0) fL MCH 26.0 (25.0-35.0) pg MCHC 29.8 L (31.0-37.0) g/dL RDW 16.7 H (11.5-15.5) % Plt Count 220 (150-450) k/uL MPV 8.9 Neutrophils % 73 % Lymphocytes % 14 % Monocytes % 6 % Eosinophils % 3 % Basophils % 1 % Neutrophils # 6.4 (1.3-7.7) k/uL Lymphocytes # 1.3 (1.0-4.8) k/uL Monocytes # 0.5 (0-1.0) k/uL Eosinophils # 0.3 (0-0.7) k/uL Basophils # 0.1 (0-0.2) k/uL Hypochromasia Marked Anisocytosis Slight PT 11.0 (10.0-12.5) sec INR 1.0 (<1.2) APTT 24.6 (22.0-30.0) sec Sodium 140 (137-145) mmol/L Potassium 3.6 (3.5-5.1) mmol/L Chloride 104 (98-107) mmol/L Carbon Dioxide 28 (22-30) mmol/L Anion Gap 8 mmol/L BUN 13 (7-17) mg/dL Creatinine 0.75 (0.52-1.04) mg/dL Est GFR (CKD-EPI)AfAm 87 (>60 ml/min/1.73 sqM) Est GFR (CKD-EPI)NonAf 76 (>60 ml/min/1.73 sqM) Glucose 117 H (74-99) mg/dL Lactic Ac Sepsis Rflx Plasma Lactic Acid Wilfred (0.7-2.0) mmol/L Calcium 8.9 (8.4-10.2) mg/dL Magnesium 1.9 (1.6-2.3) mg/dL Total Bilirubin 1.0 (0.2-1.3) mg/dL AST 24 (14-36) U/L ALT 12 (4-34) U/L Alkaline Phosphatase 131 H (38-126) U/L Troponin I (0.000-0.034) ng/mL NT-Pro-B Natriuret Pep 1880 pg/mL Total Protein 7.2 (6.3-8.2) g/dL Albumin 3.7 (3.5-5.0) g/dL 12/22/23 12/22/23 12/22/23 Range/Units 13:42 13:42 14:18 WBC (3.8-10.6) k/uL RBC (3.80-5.40) m/uL Hgb (11.4-16.0) gm/dL Hct (34.0-46.0) % MCV (80.0-100.0) fL MCH (25.0-35.0) pg MCHC (31.0-37.0) g/dL RDW (11.5-15.5) % Plt Count (150-450) k/uL MPV Neutrophils % % Lymphocytes % % Monocytes % % Eosinophils % % Basophils % % Neutrophils # (1.3-7.7) k/uL Lymphocytes # (1.0-4.8) k/uL Monocytes # (0-1.0) k/uL Eosinophils # (0-0.7) k/uL Basophils # (0-0.2) k/uL Hypochromasia Anisocytosis PT (10.0-12.5) sec INR (<1.2) APTT (22.0-30.0) sec Sodium (137-145) mmol/L Potassium (3.5-5.1) mmol/L Chloride (98-107) mmol/L Carbon Dioxide (22-30) mmol/L Anion Gap mmol/L BUN (7-17) mg/dL Creatinine (0.52-1.04) mg/dL Est GFR (CKD-EPI)AfAm (>60 ml/min/1.73 sqM) Est GFR (CKD-EPI)NonAf (>60 ml/min/1.73 sqM) Glucose (74-99) mg/dL Lactic Ac Sepsis Rflx Y Plasma Lactic Acid Wilfred 2.1 H* (0.7-2.0) mmol/L Calcium (8.4-10.2) mg/dL Magnesium (1.6-2.3) mg/dL Total Bilirubin (0.2-1.3) mg/dL AST (14-36) U/L ALT (4-34) U/L Alkaline Phosphatase (38-126) U/L Troponin I <0.012 (0.000-0.034) ng/mL NT-Pro-B Natriuret Pep pg/mL Total Protein (6.3-8.2) g/dL Albumin (3.5-5.0) g/dL Disposition Clinical Impression: Acute pulmonary edema Disposition: ADMITTED IP TO THIS HOSP Referrals: Olya Olson MD [Primary Care Provider] - 1-2 days Time of Disposition: 19:56
[2023-12-22 14:06] LABS: Anisocytosis Slight; Basophils # (A) 0.1 k/uL (0-0.2); Basophils % (A) 1 %; Eosinophils # (A) 0.3 k/uL (0-0.7); Eosinophils % (A) 3 %; HCT 33.9 % (34.0-46.0); HGB 10.1 gm/dL (11.4-16.0); Hypochromasia Marked; Lymphocytes # (A) 1.3 k/uL (1.0-4.8); Lymphocytes % (A) 14 %; MCHC 29.8 g/dL (31.0-37.0); MCV 87.5 fL (80.0-100.0); Mean Platelet Volume 8.9; Monocytes # (A) 0.5 k/uL (0-1.0); Monocytes % (A) 6 %; Neutrophils # (A) 6.4 k/uL (1.3-7.7); Neutrophils % (A) 73 %; Platelet Count 220 k/uL (150-450); RBC 3.88 m/uL (3.80-5.40); RDW 16.7 % (11.5-15.5); WBC 8.8 k/uL (3.8-10.6)
[2023-12-22 14:21] LABS: ALT 12 U/L (4-34); AST 24 U/L (14-36); African American GFR (CKD) 87 (>60 ml/min/1.73 sqM); Albumin 3.7 g/dL (3.5-5.0); Alkaline Phosphatase 131 U/L (38-126); Anion Gap 8 mmol/L; Blood Urea Nitrogen 13 mg/dL (7-17); Calcium 8.9 mg/dL (8.4-10.2); Carbon Dioxide 28 mmol/L (22-30); Chloride 104 mmol/L (98-107); Glucose 117 mg/dL (74-99); Magnesium 1.9 mg/dL (1.6-2.3); Non-African American GFR(CKD) 76 (>60 ml/min/1.73 sqM); Potassium 3.6 mmol/L (3.5-5.1); Sodium 140 mmol/L (137-145); Total Protein 7.2 g/dL (6.3-8.2)
[2023-12-22 14:24] LABS: NT-Pro-B-Type Natriuretic Pept 1880 pg/mL
[2023-12-22 14:28] LABS: Partial Thromboplastin Time 24.6 sec (22.0-30.0)
--- NOTE | 2023-12-22 14:37 | XR ---
EXAMINATION TYPE: XR chest 2V DATE OF EXAM: 12/22/2023 COMPARISON: 12/19/2023 HISTORY: 78 year-old female shortness of breath, difficulty breathing TECHNIQUE: AP and lateral views FINDINGS: Median sternotomy wires are present. A prosthetic aortic valve. Heart mildly enlarged. Diffuse inters titial opacities and patchy bibasilar opacities. Possible small left pleural effusion. Partially visu alized reverse right shoulder arthroplasty. IMPRESSION: Overall similar cardiomegaly with interstitial pulmonary edema. Small left pleural effusion with reuben cent atelectasis and/or consolidation.
[2023-12-22] MEDS: FUROSEMIDE 10 MG/ML 4 ML VIAL IV STA (20:57)
[2023-12-22] MEDS: IPRATROPIUM-ALBUTEROL 3 ML NEB INHALATION PRN (22:00)
[2023-12-23] MEDS: NITROGLYCERIN OINT 1 INCH/GM PACKET TOPICAL SCH (01:51)
[2023-12-23] MEDS: LEVOTHYROXINE 75 MCG TAB PO SCH (06:18)
[2023-12-23] MEDS: MIDODRINE 5 MG TAB PO SCH (06:18)
--- NOTE | 2023-12-23 09:38 | P.HPIM ---
History of Present Illness H&P Date: 12/23/23 this is an 78-year-old female patient who presented to the emergency room complaining of difficulty breathingthat had been increasing over the past few days. Patient has an extensive medical history and frequent admissions. History includes history of fibrillation, heart failure, COPD, GERD, osteoa rthritis, rheumatoid arthritis, supraventricular tachycardia, coronary artery is past graft surgery.chest x-ray completed showing overall similar cardiomegaly with interstitial pulmonary edema small left pleural effusion with adjacent atelectasis and/or consolidation. Patient's BNP elevated 1180, troponin negative. White blood cell 8.8. Patient was started on IV Lasix and cardiology service is consulted. current vital signs temp 97.9, heart rate 67, respiratory rate 20, blood pressure 109/61 with a pulse ox 92% on 3 L Review of Systems please refer to HPI otherwise unremarkable Past Medical History Past Medical History: Atrial Fibrillation, Heart Failure, COPD, GERD/Reflux, Osteoarthritis (OA), Renal Disease, Rheumatoid Arthritis (RA), Supraventricular Tachycardia (SVT), Thyroid Disorder Additional Past Medical History / Comment(s): Valvular heart disease with previous aortic valve replacement and a mitral valve repair, congestion heart failure, Paroxysmal Afib, history of SVT, history of nonsustained VT, SOB with exertion, home O2 at 2L/NC usually prn but lately ATC, arthritis, RA several joints, current L elbow pain/swelling-had "injection", nephrolithiasis, hypothyroid, diverticular dx, UTI, iron deficiency anemia. 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 History of Any Multi-Drug Resistant Organisms: None Reported Past Surgical History: Coronary Bypass/CABG, Heart Catheterization, Hysterectomy, Joint Replacement, Orthopedic Surgery Additional Past Surgical History / Comment(s): Geoff total knees arthroplasty,lt hip arthroplasty, goiter removed 1962, partial thyroidectomy, cataracts removed with lens implants, REVERSE TOTAL RIGHT SHOULDER; Rotator cuff R shoulder, cervical fusion/injections, colonoscopy 2016(next after 5yr), MATTHEW, valve surgery at [facility] 10/13/17 Prosthetic Aortic valve and mitral valve repair. Total abdominal hysterectomy in the . Past Anesthesia/Blood Transfusion Reactions: Postoperative Nausea & Vomiting (PONV) Past Psychological History: No Psychological Hx Reported Additional Psychological History / Comment(s): Pt resides with her spouse in an apartment with no stairs. She used to drive but not since valve surgery. Her spouse is helpful and able to drive her to appts. She has home oxygen. She uses a walker to ambulate and has a cane. She also has a scale and B/P monitor. She has used VMA in the recent past. Smoking Status: Never smoker Past Alcohol Use History: None Reported Additional Past Alcohol Use History / Comment(s): She used to drink 2 glasses of wine per week but hasn't for months, quit smoking @age of 43, smoked 1ppd for 30 yrs. Past Drug Use History: None Reported - Past Family History Father Family Medical History: Cancer, Myocardial Infarction ([place]) Additional Family Medical History / Comment(s): in his 80's of a mi. Colon cancer. Mother Family Medical History: No Reported History Additional Family Medical History / Comment(s): age 88 . hx smoking. Daughter(s) Family Medical History: Cancer Additional Family Medical History / Comment(s): from vulvar cancer. Medications and Allergies Home Medications Medication Instructions Recorded Confirmed Type HYDROcodone/APAP 10-325MG [[place] 1 tab PO Q8H PRN 3 Days #12 tab 09/14/23 12/22/23 Rx 10-325] Ascorbic Acid [Vitamin C] 500 mg PO DAILY 30 Days #30 tab 11/05/23 12/22/23 Rx Aspirin 81 mg PO DAILY 30 Days #30 tab 11/05/23 12/22/23 Rx Cholecalciferol (Vitamin D3) 125 mcg PO DAILY 30 Days #30 cap 11/05/23 12/22/23 Rx [Vitamin D3 (125 MCG = 5,000 IU)] Metoprolol Tartrate [Lopressor] 25 mg PO BID 30 Days #60 tab 11/05/23 12/22/23 Rx Midodrine [ProAmatine] 5 mg PO AC-TID 30 Days #90 tab 11/05/23 12/22/23 Rx Ipratropium-Albuterol Nebulize 3 ml INHALATION RT-Q6H PRN 11/20/23 12/22/23 History [Duoneb 0.5 mg-3 mg/3 ml Soln] Levothyroxine Sodium [Synthroid] 150 mcg PO DAILY 11/20/23 12/22/23 History Empagliflozin [Jardiance] 10 mg PO DAILY #30 tablet 11/24/23 12/22/23 Rx Bumetanide [BUMEX] 1 mg PO DAILY@1600 12/22/23 12/22/23 History Bumetanide [BUMEX] 2 mg PO DAILY@0900 12/22/23 12/22/23 History Allergies Allergy/AdvReac Type Severity Reaction Status Date / Time lisinopril AdvReac Cough Verified 12/22/23 16:18 Physical Exam Vitals: Vital Signs Temp Pulse Pulse Resp BP BP Pulse Ox 12/23/23 04:00 64 18 113/75 99 12/22/23 23:21 97.9 F 76 20 109/61 92 L 12/22/23 22:10 67 12/22/23 22:00 78 12/22/23 21:43 67 18 121/87 12/22/23 19:52 74 18 98 12/22/23 18:47 97.9 F 87 20 123/63 100 12/22/23 15:19 69 16 96/71 98 12/22/23 13:25 97.8 F 71 18 105/75 97 Intake and Output 12/22/23 12/23/23 12/23/23 22:59 06:59 14:59 Output Total 975 Balance -975 Output: Urine 975 Other: Voiding Method External Catheter Weight 47.627 kg Head normocephalic Neck supple Lungs clear to auscultation bilaterally no wheezing or crackles Heart regular rate and rhythm S1-S2, no rub or gallop Abdomen is soft nontender nondistended positive bowel sounds no hepatosplenomegaly Extremities no edema Neuro alert and orientated to 3 Results CBC & Chem 7: 12/22/23 13:42 12/22/23 13:42 Labs: Abnormal Lab Results - Last 24 Hours (Table) 12/22/23 12/22/23 12/22/23 Range/Units 13:42 13:42 13:42 Hgb 10.1 L (11.4-16.0) gm/dL Hct 33.9 L (34.0-46.0) % MCHC 29.8 L (31.0-37.0) g/dL RDW 16.7 H (11.5-15.5) % Glucose 117 H (74-99) mg/dL Plasma Lactic Acid Wilfred 2.1 H* (0.7-2.0) mmol/L Alkaline Phosphatase 131 H (38-126) U/L Thrombosis Risk Factor Assmnt - Choose All That Apply Any of the Below Risk Factors Present?: Yes Each Factor Represents 1 point: Abnormal pulmonary function (COPD) Other Risk Factors: Yes Each Risk Factor Represents 3 Points: Age 75 years or older Other congenital or acquired thrombophilia - If yes, enter type in comment: No Thrombosis Risk Factor Assessment Total Risk Factor Score: 4 Thrombosis Risk Factor Assessment Level: Moderate Risk Assessment and Plan Assessment: 1. Increased shortness breath secondary to acute exacerbation of CHF 2. History of systolic congestive heart failure 3. History of valvular heart disease with previous history of mitral valve repair and aortic valve replacement 4. History of nonischemic cardiomyopathy 5. History of COPD 6. History of atrial fibrillation 7. History of coronary artery disease with history of coronary artery bypass graft surgery 8. History of partial thyroidectomy 9. History of essential hypertension 10. History of pulmonary hypertension 11. History of osteoarthritis At this time patient will be admitted Patient started on IV Lasix Cardiology services consulted DVT prophylaxisHeparin. GI prophylaxis Protonix Time with Patient: Greater than 30 (Greater than 60% of the total time spent in counseling and coordination of care)
[2023-12-23] MEDS: DAPAGLIFLOZIN PROPANEDIOL 5 MG TABLET PO SCH (10:19)
[2023-12-23] MEDS: METOPROLOL TARTRATE 25 MG TAB PO SCH (10:19)
[2023-12-23] MEDS: BUMETANIDE 1 MG TAB PO SCH ×2 (10:20→17:09)
[2023-12-23] MEDS: FUROSEMIDE 10 MG/ML 4 ML VIAL IV SCH (10:20)
[2023-12-23 12:44] VITALS: BMI 20.5
[2023-12-23 17:23] LABS: Glucose,Whole Blood 175 mg/dL (70-110)
[2023-12-23] MEDS: HEPARIN SODIUM,PORCINE 5,000 UNIT/ML 1 ML VIAL SQ SCH (20:01)
[2023-12-24] MEDS: PANTOPRAZOLE 40 MG TABLET PO SCH (06:35)
[2023-12-24 08:44] LABS: ALT 10 U/L (4-34); AST 21 U/L (14-36); African American GFR (CKD) 64 (>60 ml/min/1.73 sqM); Albumin 3.3 g/dL (3.5-5.0); Alkaline Phosphatase 127 U/L (38-126); Anion Gap 9 mmol/L; Blood Urea Nitrogen 18 mg/dL (7-17); Calcium 8.4 mg/dL (8.4-10.2); Carbon Dioxide 33 mmol/L (22-30); Chloride 96 mmol/L (98-107); Glucose 75 mg/dL (74-99); Non-African American GFR(CKD) 56 (>60 ml/min/1.73 sqM); Potassium 3.4 mmol/L (3.5-5.1); Sodium 138 mmol/L (137-145); Total Bilirubin 1.1 mg/dL (0.2-1.3); Total Protein 6.7 g/dL (6.3-8.2)
[2023-12-24 08:45] LABS: Anisocytosis Slight; Basophils # (A) 0.1 k/uL (0-0.2); Basophils % (A) 1 %; Eosinophils # (A) 0.4 k/uL (0-0.7); Eosinophils % (A) 6 %; HCT 34.4 % (34.0-46.0); HGB 10.5 gm/dL (11.4-16.0); Hypochromasia Moderate; Lymphocytes # (A) 1.7 k/uL (1.0-4.8); Lymphocytes % (A) 30 %; MCH 26.2 pg (25.0-35.0); MCHC 30.4 g/dL (31.0-37.0); MCV 86.2 fL (80.0-100.0); Monocytes # (A) 0.3 k/uL (0-1.0); Monocytes % (A) 6 %; Neutrophils # (A) 3.2 k/uL (1.3-7.7); Neutrophils % (A) 55 %; Platelet Count 231 k/uL (150-450); RBC 3.99 m/uL (3.80-5.40); RDW 16.9 % (11.5-15.5); WBC 5.8 k/uL (3.8-10.6)
[2023-12-24] MEDS ORDERED: Potassium Replacement Protocol 1 EACH MISC MISCELLANE PRN (11:58)
--- NOTE | 2023-12-24 12:00 | P.PN ---
Subjective Progress Note Date: 12/24/23 this is an 78-year-old female patient who presented to the emergency room complaining of difficulty breathingthat had been increasing over the past few days. Patient has an extensive medical history and frequent admissions. History includes history of fibrillation, heart failure, COPD, GERD, osteoarthri tis, rheumatoid arthritis, supraventricular tachycardia, coronary artery is past graft surgery.chest x-ray completed showing overall similar cardiomegaly with interstitial pulmonary edema small left pleural effusion with adjacent atelectasis and/or consolidation. Patient's BNP elevated 1180, troponin negative. White blood cell 8.8. Patient was started on IV Lasix and cardiology service is consulted. current vital signs temp 97.9, heart rate 67, respiratory rate 20, blood pressure 109/61 with a pulse ox 92% on 3 L On 12/24/2023 patient's alert and oriented 3.Patient remains on IV Lasix. P otassium low at 3.4 placed per protocol. Current vital signs temp 97.6, respiratory rate 16 553 with pulse ox 97% on 2 L. Patient denies chest pain or shortness breath. Patient denies nausea vomiting diarrhea. Patient denies any urinary burning or frequency Objective - Vital Signs Vital signs: Vital Signs Temp 97.6 F 12/24/23 08:10 Pulse 61 12/24/23 11:13 Resp 16 12/24/23 11:13 BP 95/53 12/24/23 11:13 Pulse Ox 97 12/24/23 11:13 FiO2 Intake & Output 12/23/23 12/24/23 12/24/23 18:59 06:59 18:59 Intake Total 118 200 118 Output Total 1300 800 Balance -1182 -600 118 Weight 47.627 kg Intake: Oral 118 200 118 Output: Urine 1300 800 Other: Voiding Method External Catheter External Catheter External Catheter # Bowel Movements 1 - Exam Head normocephalic Neck supple Lungs clear to auscultation bilaterally no wheezing or crackles Heart regular rate and rhythm S1-S2, no rub or gallop Abdomen is soft nontender nondistended positive bowel sounds no hepatosplenomegaly Extremities no edema Neuro alert and orientated to 3 - Labs CBC & Chem 7: 12/24/23 07:55 12/24/23 07:55 Labs: Abnormal Lab Results - Last 24 Hours (Table) 0412/24/23 12/24/23 Range/Units 17:21 07:55 07:55 Hgb 10.5 L (11.4-16.0) gm/dL MCHC 30.4 L (31.0-37.0) g/dL RDW 16.9 H (11.5-15.5) % Potassium 3.4 L (3.5-5.1) mmol/L Chloride 96 L (98-107) mmol/L Carbon Dioxide 33 H (22-30) mmol/L BUN 18 H (7-17) mg/dL POC Glucose (mg/dL) 175 H (70-110) mg/dL Alkaline Phosphatase 127 H (38-126) U/L Albumin 3.3 L (3.5-5.0) g/dL Assessment and Plan Assessment: 1. Increased shortness breath secondary to acute exacerbation of CHF 2. History of systolic congestive heart failure 3. History of valvular heart disease with previous history of mitral valve repair and aortic valve replacement 4. History of nonischemic cardiomyopathy 5. History of COPD 6. History of atrial fibrillation 7. History of coronary artery disease with history of coronary artery bypass graft surgery 8. History of partial thyroidectomy 9. History of essential hypertension 10. History of pulmonary hypertension 11. History of osteoarthritis At this time patient will be admitted Patient started on IV Lasix Cardiology services consulted DVT prophylaxisHeparin. GI prophylaxis Protonix
[2023-12-24] MEDS: POTASSIUM CHLORIDE ER 20 MEQ TAB.ER PO SCH (12:19)
--- NOTE | 2023-12-24 14:47 | P.CRDCN ---
History of Present Illness Consult date: 12/24/23 Consult reason: congestive heart failure History of present illness: This is an 78-year-old female patient of Dr. Flores with past medical history of persistent atrial fibrillation/flutter recently taken off Coumadin, known EF of 37%, history of mitral valve repair, nonischemic cardiomyopathy, pulmonary hypertension, hypothyroidism, chronic hypoxic respiratory failure on home O2. Patient has had multiple hospitalizations for A-fib with RVR and congestive heart failure and has not been seen in the office since 02/20/2023. Patient presented to the hospital due to shortness of breath. Patient woke up with difficulty in breathing. No chest pain. No lightheadedness or dizziness. Patient has been started on her home medications including Bumex oral and potassium has been replaced. Patient can planes of dysuria. EKG atrial fibrillation 82 bpm Chest x-ray: Similar cardiomegaly with interstitial pulmonary edema. Small left pleural effusion with adjacent atelectasis and/or consolidation. WBC 5.8, hemoglobin 10.5. Sodium 138, potassium 3.4, BUN 18 creatinine 0.97. Alkaline phosphatase 127. Home cardiac medications: Aspirin 81 mg daily, Bumex 1 mg daily, Farxiga 10 mg daily, Lopressor 50 mg twice daily, patient also on levothyroxine 150 mcg daily. Echocardiogram in June 2023 revealed ejection fraction 30-35%, severe pulmon chichi hypertension, bioprosthetic aortic valve, and mitral valve repair with mild MR Cardiac catheterization history: October 2017 revealing normal coronary arteries Cardioversion 07/05/2022 for atrial flutter with quaker of sinus rhythm Aortic valve replacement 10/13/2017 with Magna Ease bioprosthetic aortic valve, mitral valve repair with CarboMedics annular flex band, clip ligation of the le ft atrial appendage. MATTHEW performed 01/30/2018 revealed sutured left atrial appendage, bioprosthetic ao rtic valve with normal functioning, mitral annuloplasty with mitral valve repair and mild mitral regurgitation. Moderate tricuspid regurgitation. No evidence of shunting across the intra-atrial septum. Review Of Systems: At the time of my exam: CONSTITUTIONAL: Denies fever or chills. CARDIOVASCULAR: Denies chest pain, denies shortness of breath, no orthopnea, no PND or reports palpitations. RESPIRATORY: Denies cough. Reports shortness of breath but improving GASTROINTESTINAL: Denies abdominal pain, diarrhea, constipation, nausea or vomiting. MUSCULOSKELETAL: Denies myalgias. NEUROLOGIC: Denies numbness, tingling or weakness. ENDOCRINE: Denies fatigue, weight change, polydipsia or polyurina. GENITOURINARY: Denies burning, hematuria or urgency with micturation. HEMATOLOGIC: Denies history of anemia or bleeding. Physical examination: Gen: This is an 78-year-old female resting in bed and appears to be in no acute distress. VS: reviewed, blood pressure 95/53, heart rate 61, pulse ox 97% on 3 L nasal cannula. HEENT: Head is atraumatic, normocephalic. Pupils equal, round. Sclerae is a nicteric. NECK: Supple. No JVD. LUNGS: Diminished breath sounds bilaterally. No intercostal retractions. HEART: Irregular rate and rhythm. 2/6 systolic murmur. ABDOMEN: Soft No tenderness. EXTREMITIES: Mild pedal edema. No calf tenderness. NEUROLOGICAL: Patient is awake, alert. Assessment: Persistent A-fib atrial flutter Cardiomyopathy with EF 35% June 2023 Valvular heart disease s/p mitral valve repair and aortic valve replacement Acute on chronic systolic heart failure Severe tricuspid regurgitation Pulmonary hypertension Hypothyroidism Chronic hypoxic respiratory failure on home O2 Plan: Resume patient's home cardiac medications Continue IV Lasix 40 mg every 12 hours and discontinue oral Bumex Monitor JASVIR, daily weights, electrolytes and renal function No need to repeat echocardiogram Attending to address complaints of dysuria Further recommendations as patient progresses. Thank you kindly for this consultation. Nurse practitioner note has been reviewed, I agree with documented findings and plan of care. Patient was seen and examined. Past Medical History Past Medical History: Atrial Fibrillation, Heart Failure, COPD, GERD/Reflux, Osteoarthritis (OA), Renal Disease, Rheumatoid Arthritis (RA), Supraventricular Tachycardia (SVT), Thyroid Disorder Additional Past Medical History / Comment(s): Valvular heart disease with previous aortic valve replacement and a mitral valve repair, congestion heart failure, Paroxysmal Afib, history of SVT, history of nonsustained VT, SOB with exertion, home O2 at 2L/NC usually prn but lately ATC, arthritis, RA several joints, current L elbow pain/swelling-had "injection", nephrolithiasis, hypothyroid, diverticular dx, UTI, iron deficiency anemia. 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 History of Any Multi-Drug Resistant Organisms: None Reported Past Surgical History: Coronary Bypass/CABG, Heart Catheterization, Hysterectomy, Joint Replacement, Orthopedic Surgery Additional Past Surgical History / Comment(s): Geoff total knees arthroplasty,lt hip arthroplasty, goiter removed 1962, partial thyroidectomy, cataracts removed with lens implants, REVERSE TOTAL RIGHT SHOULDER; Rotator cuff R shoulder, cervical fusion/injections, colonoscopy 2017(next after 5yr), MATTHEW, valve s urgery at [facility] 10/13/17 Prosthetic Aortic valve and mitral valve repair. Total abdominal hysterectomy in the 1980s. Past Anesthesia/Blood Transfusion Reactions: Postoperative Nausea & Vomiting (PONV) Past Psychological History: No Psychological Hx Reported Additional Psychological History / Comment(s): Pt resides with her spouse in an apartment with no stairs. She used to drive but not since valve surgery. Her spouse is helpful and able to drive her to appts. She has home oxygen. She uses a walker to ambulate and has a cane. She also has a scale and B/P monitor. She has used VMA in the recent past. Smoking Status: Never smoker Past Alcohol Use History: None Reported Additional Past Alcohol Use History / Comment(s): She used to drink 2 glasses of wine per week but hasn't for months, quit smoking @age of 43, smoked 1ppd for 30 yrs. Past Drug Use History: None Reported - Past Family History Father Family Medical History: Cancer, Myocardial Infarction (HI) Additional Family Medical History / Comment(s): in his 80's of a mi. Colon cancer. Mother Family Medical History: No Reported History Additional Family Medical History / Comment(s): age 88 . hx smoking. Daughter(s) Family Medical History: Cancer Additional Family Medical History / Comment(s): from vulvar cancer. Medications and Allergies Home Medications Medication Instructions Recorded Confirmed Type HYDROcodone/APAP 10-325MG [[place] 1 tab PO Q8H PRN 3 Days #12 tab 09/14/23 12/22/23 Rx 10-325] Ascorbic Acid [Vitamin C] 500 mg PO DAILY 30 Days #30 tab 11/05/23 12/22/23 Rx Aspirin 81 mg PO DAILY 30 Days #30 tab 11/05/23 12/22/23 Rx Cholecalciferol (Vitamin D3) 125 mcg PO DAILY 30 Days #30 cap 11/05/23 12/22/23 Rx [Vitamin D3 (125 MCG = 5,000 IU)] Metoprolol Tartrate [Lopressor] 25 mg PO BID 30 Days #60 tab 11/05/23 12/22/23 Rx Midodrine [ProAmatine] 5 mg PO AC-TID 30 Days #90 tab 11/05/23 12/22/23 Rx Ipratropium-Albuterol Nebulize 3 ml INHALATION RT-Q6H PRN 11/20/23 12/22/23 History [Duoneb 0.5 mg-3 mg/3 ml Soln] Levothyroxine Sodium [Synthroid] 150 mcg PO DAILY 11/20/23 12/22/23 History Empagliflozin [Jardiance] 10 mg PO DAILY #30 tablet 11/24/23 12/22/23 Rx Bumetanide [BUMEX] 1 mg PO DAILY@1600 12/22/23 12/22/23 History Bumetanide [BUMEX] 2 mg PO DAILY@0900 12/22/23 12/22/23 History Allergies Allergy/AdvReac Type Severity Reaction Status Date / Time lisinopril AdvReac Cough Verified 12/22/23 16:18 Physical Exam Vitals: Vital Signs Temp Pulse Pulse Resp BP Pulse Ox 12/24/23 11:13 61 16 95/53 97 12/24/23 08:16 98 12/24/23 08:10 97.6 F 67 18 89/55 99 12/24/23 04:00 98.1 F 62 16 93/54 96 12/24/23 00:28 71 16 101/61 98 12/23/23 22:00 76 12/23/23 21:50 75 12/23/23 20:22 98.1 F 76 17 93/54 98 12/23/23 17:08 74 18 107/67 96 12/23/23 15:23 84 12/23/23 15:12 84 Intake and Output 12/23/23 12/24/23 12/24/23 22:59 06:59 14:59 Intake Total 200 118 Output Total 1700 400 Balance -1500 -400 118 Intake: Oral 200 118 Output: Urine 1700 400 Other: Voiding Method External Catheter External Catheter External Catheter # Bowel Movements 1 Results 12/24/23 07:55 04/24/24 07:55 Cardiac Enzymes 12/24/23 Range/Units 07:55 AST 21 (14-36) U/L CBC 12/24/23 Range/Units 07:55 WBC 5.8 (3.8-10.6) k/uL RBC 3.99 (3.80-5.40) m/uL Hgb 10.5 L (11.4-16.0) gm/dL Hct 34.4 (34.0-46.0) % Plt Count 231 (150-450) k/uL Comprehensive Metabolic Panel 12/24/23 Range/Units 07:55 Sodium 138 (137-145) mmol/L Potassium 3.4 L (3.5-5.1) mmol/L Chloride 96 L (98-107) mmol/L Carbon Dioxide 33 H (22-30) mmol/L BUN 18 H (7-17) mg/dL Creatinine 0.97 (0.52-1.04) mg/dL Glucose 75 (74-99) mg/dL Calcium 8.4 (8.4-10.2) mg/dL AST 21 (14-36) U/L ALT 10 (4-34) U/L Alkaline Phosphatase 127 H (38-126) U/L Total Protein 6.7 (6.3-8.2) g/dL Albumin 3.3 L (3.5-5.0) g/dL Current Medications Generic Name Dose Route Start Last Admin Trade Name Freq PRN Reason Stop Dose Admin Hydrocodone Bitart/Acetaminophen 1 each 12/22/23 21:21 Hydrocodone/Apap 10-325mg 1 Each Tab PO Q8H PRN Pain Albuterol/Ipratropium 3 ml 12/22/23 21:21 12/23/23 21:52 Ipratropium-Albuterol 3 Ml Neb INHALATION 3 ml RT-Q6H PRN Administration Shortness Of Breath Bumetanide 1 mg 12/23/23 16:00 12/23/23 17:09 Bumetanide 1 Mg Tab PO 1 mg DAILY@1600 CARLOS Administration Bumetanide 2 mg 12/23/23 09:00 12/24/23 08:22 Bumetanide 1 Mg Tab PO 2 mg DAILY@0900 CARLOS Administration Dapagliflozin 5 mg 12/23/23 09:00 12/24/23 08:21 Dapagliflozin Propanediol 5 Mg Tablet PO 5 mg DAILY CARLOS Administration Furosemide 40 mg 12/23/23 08:00 12/24/23 08:22 Furosemide 10 Mg/Ml 4 Ml Vial IV 40 mg Q12H CARLOS Administration Heparin Sodium (Porcine) 5,000 unit 12/23/23 21:00 12/24/23 08:22 Heparin Sodium,Porcine 5,000 Unit/Ml 1 Ml Vial SQ 5,000 unit Q12HR CARLOS Administration Levothyroxine Sodium 150 mcg 12/23/23 06:30 12/24/23 06:35 Levothyroxine 75 Mcg Tab PO 150 mcg DAILY@0630 CARLOS Administration Metoprolol Tartrate 25 mg 12/23/23 09:00 12/24/23 08:21 Metoprolol Tartrate 25 Mg Tab PO 25 mg BID CARLOS Administration Midodrine 5 mg 12/23/23 07:30 12/24/23 11:51 Midodrine 5 Mg Tab PO 5 mg AC-TID CARLOS Administration Miscellaneous Information 1 each 12/24/23 11:58 Potassium Replacement Protocol 1 Each Misc MISCELLANE DAILY PRN Per Protocol Protocol Nitroglycerin 0.5 inch 12/23/23 00:00 12/24/23 11:12 Nitroglycerin Oint 1 Inch/Gm Packet TOPICAL Not Given Q6HR [facility] Pantoprazole Sodium 40 mg 12/24/23 07:30 12/24/23 06:35 Pantoprazole 40 Mg Tablet PO 40 mg AC-[id number] CARLOS Administration Intake and Output 12/23/23 12/24/23 12/24/23 22:59 06:59 14:59 Intake Total 200 118 Output Total 1700 400 Balance -1500 -400 118 Intake: Oral 200 118 Output: Urine 1700 400 Other: Voiding Method External Catheter External Catheter External Catheter # Bowel Movements 1 12/24/23 07:55 12/24/23 07:55
[2023-12-24 15:09] LABS: Appearance,Urine Clear (Clear); Bacteria,Urine Rare /hpf; Bilirubin,Urine Negative (Negative); Blood,Urine Negative (Negative); Color,Urine Colorless; Glucose,Urine (UA) 4+ (Negative); Ketones,Urine Negative (Negative); Leukocyte Esterase,Urine Negative (Negative); Nitrite,Urine Positive (Negative); Protein,Urine Negative (Negative); RBC,Urine 2 /hpf (0-5); Specific Gravity,Urine 1.005 (1.001-1.035); Squamous Epithelial Cell,Urine <1 /hpf (0-4); Urobilinogen,Urine <2.0 mg/dL (<2.0); WBC,Urine 1 /hpf (0-5)
--- NOTE | 2023-12-25 14:44 | P.PN ---
Subjective This is an 78-year-old female patient of Dr. Flores with past medical history of persistent atrial fibrillation/flutter recently taken off Coumadin, known EF of 37%, history of mitral valve repair, nonischemic cardiomyopathy, pulmonary hypertension, hypothyroidism, chronic hypoxic respiratory failure on home O2. Patient has had multiple hospitalizations for A-fib with RVR and congestive heart failure and has not been seen in the office since 02/20/2023. Patient presented to the hospital due to shortness of breath. Patient woke up with difficulty in breathing. No chest pain. No lightheadedness or dizziness. Patient has been started on her home medications including Bumex oral and potassium has been replaced. Patient can planes of dysuria. EKG atrial fibrillation 82 bpm Chest x-ray: Similar cardiomegaly with interstitial pulmonary edema. Small left pleural effusion with adjacent atelectasis and/or consolidation. WBC 5.8, hemoglobin 10.5. Sodium 138, potassium 3.4, BUN 18 creatinine 0.97. Alkaline phosphatase 127. Home cardiac medications: Aspirin 81 mg daily, Bumex 1 mg daily, Farxiga 10 mg daily, Lopressor 50 mg twice daily, patient also on levothyroxine 150 mcg daily. Echocardiogram in June 2023 revealed ejection fraction 30-35%, severe pulmonary hypertension, bioprosthetic aortic valve, and mitral valve repair with mild MR Cardiac catheterization history: October 2017 revealing normal coronary arteries Cardioversion 07/05/2022 for atrial flutter with druze of sinus rhythm Aortic valve replacement 10/13/2017 with Magna Ease bioprosthetic aortic valve, mitral valve repair with CarboMedics annular flex band, clip ligation of the left atrial appendage. MATTHEW performed 01/30/2018 revealed sutured left atrial appendage, bioprosthetic aortic valve with normal functioning, mitral annuloplasty with mitral valve repair and mild mitral regurgitation. Moderate tricuspid regurgitation. No evidence of shunting across the intra-atrial septum. 12/24 patient seen and examined. Patient still with similar shortness breath. Has been on Lasix 40 mg IV twice a day and states has been having good urine output. Denies any chest pain or pressure. Physical examination: Gen: This is an 78-year-old female resting in bed and appears to be in no acute distress. VS: reviewed, blood pressure 95/53, heart rate 61, pulse ox 97% on 3 L nasal cannula. HEENT: Head is atraumatic, normocephalic. Pupils equal, round. Sclerae is anicteric. NECK: Supple. No JVD. LUNGS: Diminished breath sounds bilaterally. No intercostal retractions. HEART: Irregular rate and rhythm. 2/6 systolic murmur. ABDOMEN: Soft No tenderness. EXTREMITIES: Mild pedal edema. No calf tenderness. NEUROLOGICAL: Patient is awake, alert. Assessment: Persistent A-fib atrial flutter Cardiomyopathy with EF 35% June 2023 Valvular heart disease s/p mitral valve repair and aortic valve replacement Acute on chronic systolic heart failure Severe tricuspid regurgitation Pulmonary hypertension Hypothyroidism Chronic hypoxic respiratory failure on home O2 Plan: Resume patient's home cardiac medications Continue IV Lasix 40 mg every 12 hours and discontinue oral Bumex Monitor JASVIR, daily weights, electrolytes and renal function No need to repeat echocardiogram Patient with some dysuria previously however urinalysis not consistent with urinary tract infection. Continue to monitor however if has more urinary tract infection issues may need to discontinue SGLT2 inhibitor. Continue with diuretics. Objective - Vital Signs Vital signs: Vital Signs Temp 98.4 F 12/25/23 12:00 Pulse 83 12/25/23 12:00 Resp 16 12/25/23 12:00 BP 101/65 12/25/23 12:00 Pulse Ox 100 12/25/23 12:00 FiO2 Intake & Output 12/24/23 12/25/23 12/25/23 18:59 06:59 18:59 Intake Total 598 240 Output Total 500 1000 Balance 98 -1000 240 Weight 47.7 kg Intake: Oral 598 240 Output: Urine 500 1000 Other: Voiding Method External Catheter External Catheter External Catheter # Bowel Movements 1 - Labs CBC & Chem 7: 12/24/23 07:55 12/24/23 07:55 Labs: Abnormal Lab Results - Last 24 Hours (Table) 12/24/23 Range/Units 14:56 Urine Glucose (UA) 4+ H (Negative) Urine Nitrite Positive H (Negative) Urine Bacteria Rare H (None) /hpf
--- NOTE | 2023-12-25 17:31 | P.PN ---
Subjective Progress Note Date: 12/25/23 this is an 78-year-old female patient who presented to the emergency room complaining of difficulty breathing that had been increasing over the past few days. Patient has an extensive medical history and frequent admissions. History includes history of fibrillation, heart failure, COPD, GERD, osteoart hritis, rheumatoid arthritis, supraventricular tachycardia, coronary artery is past graft surgery.chest x-ray completed showing overall similar cardiomegaly with interstitial pulmonary edema small left pleural effusion with adjacent atelectasis and/or consolidation. Patient's BNP elevated 1180, troponin negative. White blood cell 8.8. Patient was started on IV Lasix and cardiology service is consulted. current vital signs temp 97.9, heart rate 67, respiratory rate 20, blood pressure 109/61 with a pulse ox 92% on 3 L On 12/24/2023 patient's alert and oriented 3.Patient remains on IV Lasix. Potassium low at 3.4 placed per protocol. Current vital signs temp 97.6, respiratory rate 16 553 with pulse ox 97% on 2 L. Patient denies chest pain or shortness breath. Patient denies nausea vomiting diarrhea. Patient denies any urinary burning or frequency On 12/25/2023 patient was seen and examined on the medical floor, she is alert and oriented 3 in no apparent distress, she is still complaining of shortness of breath with any activity, Otherwise she denies any complaints there is no fever or chills no headache or dizziness no chest pain no cough no nausea or vomiting no abdominal pain no diarrhea and no urinary symptoms, she remains on IV Lasix, cardiology are following Objective - Vital Signs Vital signs: Vital Signs Temp 98.4 F 12/25/23 12:00 Pulse 83 12/25/23 12:00 Resp 16 12/25/23 12:00 BP 101/65 12/25/23 12:00 Pulse Ox 100 12/25/23 12:00 FiO2 Intake & Output 12/24/23 12/25/23 12/25/23 18:59 06:59 18:59 Intake Total 598 240 Output Total 500 1000 Balance 98 -1000 240 Weight 47.7 kg Intake: Oral 598 240 Output: Urine 500 1000 Other: Voiding Method External Catheter External Catheter External Catheter # Bowel Movements 1 - Exam Head normocephalic Neck supple Lungs clear to auscultation bilaterally no wheezing or crackles Heart regular rate and rhythm S1-S2, no rub or gallop Abdomen is soft nontender nondistended positive bowel sounds no hepatosplenomegaly Extremities no edema Neuro alert and orientated to 3 - Labs CBC & Chem 7: 12/24/23 07:55 12/24/23 07:55 Labs: Abnormal Lab Results - Last 24 Hours (Table) 12/24/23 Range/Units 14:56 Urine Glucose (UA) 4+ H (Negative) Urine Nitrite Positive H (Negative) Urine Bacteria Rare H (None) /hpf Assessment and Plan Assessment: 1. Increased shortness breath secondary to acute exacerbation of CHF 2. History of systolic congestive heart failure 3. History of valvular heart disease with previous history of mitral valve repair and aortic valve replacement 4. History of nonischemic cardiomyopathy 5. History of COPD 6. History of atrial fibrillation 7. History of coronary artery disease with history of coronary artery bypass graft surgery 8. History of partial thyroidectomy 9. History of essential hypertension 10. History of pulmonary hypertension 11. History of osteoarthritis At this time patient will be admitted Patient started on IV Lasix Cardiology services consulted DVT prophylaxisHeparin. GI prophylaxis Protonix
--- NOTE | 2023-12-26 10:20 | P.PN ---
Subjective Progress Note Date: 12/26/23 this is an 78-year-old female patient who presented to the emergency room complaining of difficulty breathing that had been increasing over the past few days. Patient has an extensive medical history and frequent admissions. History includes history of fibrillation, heart failure, COPD, GERD, osteoart hritis, rheumatoid arthritis, supraventricular tachycardia, coronary artery is past graft surgery.chest x-ray completed showing overall similar cardiomegaly with interstitial pulmonary edema small left pleural effusion with adjacent atelectasis and/or consolidation. Patient's BNP elevated 1180, troponin negative. White blood cell 8.8. Patient was started on IV Lasix and cardiology service is consulted. current vital signs temp 97.9, heart rate 67, respiratory rate 20, blood pressure 109/61 with a pulse ox 92% on 3 L On 12/24/2023 patient's alert and oriented 3.Patient remains on IV Lasix. Potassium low at 3.4 placed per protocol. Current vital signs temp 97.6, respiratory rate 16 553 with pulse ox 97% on 2 L. Patient denies chest pain or shortness breath. Patient denies nausea vomiting diarrhea. Patient denies any urinary burning or frequency On 12/25/2023 patient was seen and examined on the medical floor, she is alert and oriented 3 in no apparent distress, she is still complaining of shortness of breath with any activity, Otherwise she denies any complaints there is no fever or chills no headache or dizziness no chest pain no cough no nausea or vomiting no abdominal pain no diarrhea and no urinary symptoms, she remains on IV Lasix, cardiology are following On 12/26/2023 patient's alert and oriented 3. Patient resting comfortably in bed. Patient to maintained on IV Lasix per cardiology. Urine culture currently growing gram-negative bacilli will start patient on IV antibiotic. Patient denies chest pain. Patient denies nausea vomiting or diarrhea. Patient denies any urinary burning or frequency Objective - Vital Signs Vital signs: Vital Signs Temp 97.5 F L 12/26/23 08:00 Pulse 71 12/26/23 08:00 Resp 18 12/26/23 08:00 BP 94/50 12/26/23 08:00 Pulse Ox 99 12/26/23 08:00 FiO2 Intake & Output 12/25/23 12/26/23 12/26/23 18:59 06:59 18:59 Intake Total 780 10 240 Output Total 400 300 Balance 780 -390 -60 Intake: IV 10 Invasive Line 2 10 Oral 780 240 Output: Urine 400 300 Other: Voiding Method External Catheter External Catheter External Catheter - Exam Head normocephalic Neck supple Lungs clear to auscultation bilaterally no wheezing or crackles Heart regular rate and rhythm S1-S2, no rub or gallop Abdomen is soft nontender nondistended positive bowel sounds no hepatosplenomegaly Extremities no edema Neuro alert and orientated to 3 - Labs CBC & Chem 7: 12/24/23 07:55 12/24/23 07:55 Labs: Microbiology - Last 24 Hours (Table) 12/24/23 14:56 Urine Culture - Preliminary Urine,Voided Gram Neg Bacilli Assessment and Plan Assessment: 1. Increased shortness breath secondary to acute exacerbation of CHF 2. History of systolic congestive heart failure 3. History of valvular heart disease with previous history of mitral valve r epair and aortic valve replacement 4. History of nonischemic cardiomyopathy 5. History of COPD 6. History of atrial fibrillation 7. History of coronary artery disease with history of coronary artery bypass graft surgery 8. History of partial thyroidectomy 9. History of essential hypertension 10. History of pulmonary hypertension 11. History of osteoarthritis 12. Urinary tract infection. Patient started on IV antibiotic urine culture At this time patient will be admitted Patient started on IV Lasix Cardiology services consulted DVT prophylaxisHeparin. GI prophylaxis Protonix
--- NOTE | 2023-12-26 22:01 | PN ---
PROGRESS NOTE SUBJECTIVE: Mirella is an 78-year-old lady who is admitted to hospital with congestive heart failure exacerbation, is being treated with IV diuretics with some improvement in her symptoms. She has history of atrial fibrillation and cardiomyopathy with nonischemic cardiomyopathy and prior history of mitral valve repair. At the time of my evaluation, the patient does not seem short of breath. She is on IV Lasix and making good urine. OBJECTIVE: GENERAL: She seems sleepy on exam. VITAL SIGNS: Heart rate is 70 beats per minute, blood pressure is 94/50, respiratory rate is 18. CHEST: Reveals diminished air entry at the bases. HEART: Reveals first and second heart sounds. Systolic murmur at the apex. ABDOMEN: Soft. EXTREMITIES: Reveal 1+ pitting edema bilaterally. LABS: Show that the hemoglobin is 10.5, Potassium is 3.4, creatinine is 0.97. ASSESSMENT: Acute exacerbation of chronic systolic heart failure. PLAN: I will continue the patient on IV diuretics. MMODL / IJN: [id number] /
[2023-12-27 08:11] LABS: ALT 9 U/L (4-34); AST 19 U/L (14-36); African American GFR (CKD) 66 (>60 ml/min/1.73 sqM); Albumin 3.6 g/dL (3.5-5.0); Alkaline Phosphatase 130 U/L (38-126); Anion Gap 8 mmol/L; Blood Urea Nitrogen 19 mg/dL (7-17); Calcium 8.6 mg/dL (8.4-10.2); Carbon Dioxide 35 mmol/L (22-30); Chloride 96 mmol/L (98-107); Glucose 86 mg/dL (74-99); Non-African American GFR(CKD) 57 (>60 ml/min/1.73 sqM); Potassium 3.3 mmol/L (3.5-5.1); Sodium 139 mmol/L (137-145); Total Bilirubin 0.8 mg/dL (0.2-1.3); Total Protein 7.2 g/dL (6.3-8.2)
[2023-12-27 09:13] LABS: Anisocytosis Slight; HCT 35.2 % (34.0-46.0); HGB 10.6 gm/dL (11.4-16.0); Hypochromasia Marked; MCH 26.3 pg (25.0-35.0); MCV 87.6 fL (80.0-100.0); Mean Platelet Volume 8.7; Platelet Count 189 k/uL (150-450); RBC 4.01 m/uL (3.80-5.40); RDW 16.7 % (11.5-15.5); WBC 5.6 k/uL (3.8-10.6)
[2023-12-27] MEDS: BUMETANIDE 1 MG TAB PO SCH (09:36)
[2023-12-27 10:29] LABS: Eosinophils # (M) 0.28 k/uL (0-0.7); Monocytes # (M) 0.56 k/uL (0-1.0); Nucleated Red Blood Cells 0 /100 WBC (0-0)
[2023-12-27 10:33] LABS: Band Neutrophils % 1 %; Lymphocytes # (M) 1.01 k/uL (1.0-4.8); Neutrophils % (M) 67 %; Total Cells Counted 200
--- NOTE | 2023-12-27 10:41 | P.PN ---
Subjective Progress Note Date: 12/27/23 This is an 78-year-old female patient of Dr. Flores with past medical history of persistent atrial fibrillation/flutter recently taken off Coumadin, known EF of 37%, history of mitral valve repair, nonischemic cardiomyopathy, pulmonary hypertension, hypothyroidism, chronic hypoxic respiratory failure on home O2. Patient has had multiple hospitalizations for A-fib with RVR and congestive heart failure and has not been seen in the office since 02/20/2023. Patient presented to the hospital due to shortness of breath. Patient woke up with difficulty in breathing. No chest pain. No lightheadedness or dizziness. Patient has been started on her home medications including Bumex oral and potassium has been replaced. Patient can planes of dysuria. EKG atrial fibrillation 82 bpm Chest x-ray: Similar cardiomegaly with interstitial pulmonary edema. Small left pleural effusion with adjacent atelectasis and/or consolidation. WBC 5.8, hemoglobin 10.5. Sodium 138, potassium 3.4, BUN 18 creatinine 0.97. Alkaline phosphatase 127. Home cardiac medications: Aspirin 81 mg daily, Bumex 1 mg daily, Farxiga 10 mg daily, Lopressor 50 mg twice daily, patient also on levothyroxine 150 mcg daily. Echocardiogram in June 2023 revealed ejection fraction 30-35%, severe pulmonary hypertension, bioprosthetic aortic valve, and mitral valve repair with mild MR Cardiac catheterization history: October 2017 revealing normal coronary arteries Cardioversion 07/05/2022 for atrial flutter with moravian of sinus rhythm Aortic valve replacement 10/13/2017 with Magna Ease bioprosthetic aortic valve, mitral valve repair with [employer] annular flex band, clip ligation of the left atrial appendage. MATTHEW performed 01/30/2018 revealed sutured left atrial appendage, bioprosthetic aortic valve with normal functioning, mitral annuloplasty with mitral valve repair and mild mitral regurgitation. Moderate tricuspid regurgitation. No evidence of shunting across the intra-atrial septum. 12/24 patient seen and examined. Patient still with similar shortness breath. Has been on Lasix 40 mg IV twice a day and states has been having good urine output. Denies any chest pain or pressure. 12/26 Patient has been maintained on IV Lasix 40 mg twice daily. Blood pressure 95/63, heart rates in the 70s and 80s, pulse ox 100% on 3 L nasal cannula. Repeat blood work reveals a hemoglobin 10.6, BUN 19 creatinine 0.95, potassium 3.3 Physical examination: Gen: This is an 78-year-old female resting in bed and appears to be in no acute distress. VS: reviewed, blood pressure 95/53, heart rate 61, pulse ox 97% on 3 L nasal cannula. HEENT: Head is atraumatic, normocephalic. Pupils equal, round. Sclerae is anicteric. NECK: Supple. No JVD. LUNGS: Diminished breath sounds bilaterally. No intercostal retractions. HEART: Irregular rate and rhythm. 2/6 systolic murmur. ABDOMEN: Soft No tenderness. EXTREMITIES: Mild pedal edema. No calf tenderness. NEUROLOGICAL: Patient is awake, alert. Assessment: Persistent A-fib atrial flutter Cardiomyopathy with EF 35% June 2023 Valvular heart disease s/p mitral valve repair and aortic valve replacement Acute on chronic systolic heart failure Severe tricuspid regurgitation Pulmonary hypertension Hypothyroidism Chronic hypoxic respiratory failure on home O2 Plan: Continue patient's home cardiac medications Transition IV Lasix to oral Bumex 2 mg twice daily Monitor JASVIR, daily weights, electrolytes and renal function No need to repeat echocardiogram Patient with some dysuria previously however urinalysis not consistent with urinary tract infection. Continue to monitor however if has more urinary tract infection issues may need to discontinue SGLT2 inhibitor. Replace potassium Nurse practitioner note has been reviewed, I agree with documented findings and plan of care. Patient was seen and examined. Objective - Vital Signs Vital signs: Vital Signs Temp 97.7 F 12/27/23 03:23 Pulse 79 12/27/23 03:23 Resp 20 12/27/23 03:23 BP 95/63 12/27/23 03:23 Pulse Ox 100 12/27/23 03:23 FiO2 Intake & Output 12/26/23 12/27/23 12/27/23 18:59 06:59 18:59 Intake Total 720 Output Total 1300 1100 Balance -580 -1100 Intake: Oral 720 Output: Urine 1300 1100 Other: Voiding Method External Catheter External Catheter # Voids 0 # Bowel Movements 0 - Labs CBC & Chem 7: 12/27/23 06:54 12/27/23 06:54 Labs: Abnormal Lab Results - Last 24 Hours (Table) 12/27/23 Range/Units 06:54 Potassium 3.3 L (3.5-5.1) mmol/L Chloride 96 L (98-107) mmol/L Carbon Dioxide 35 H (22-30) mmol/L BUN 19 H (7-17) mg/dL Alkaline Phosphatase 130 H (38-126) U/L Microbiology - Last 24 Hours (Table) 12/24/23 14:56 Urine Culture - Final Urine,Voided Escherichia coli
[2023-12-27] MEDS: POTASSIUM CHLORIDE ER 20 MEQ TAB.ER PO STA (12:13)
--- NOTE | 2023-12-27 13:26 | P.PN ---
Subjective Progress Note Date: 12/27/23 this is an 78-year-old female patient who presented to the emergency room complaining of difficulty breathing that had been increasing over the past few days. Patient has an extensive medical history and frequent admissions. History includes history of fibrillation, heart failure, COPD, GERD, osteoart hritis, rheumatoid arthritis, supraventricular tachycardia, coronary artery is past graft surgery.chest x-ray completed showing overall similar cardiomegaly with interstitial pulmonary edema small left pleural effusion with adjacent atelectasis and/or consolidation. Patient's BNP elevated 1180, troponin negative. White blood cell 8.8. Patient was started on IV Lasix and cardiology service is consulted. current vital signs temp 97.9, heart rate 67, respiratory rate 20, blood pressure 109/61 with a pulse ox 92% on 3 L On 12/24/2023 patient's alert and oriented 3.Patient remains on IV Lasix. Potassium low at 3.4 placed per protocol. Current vital signs temp 97.6, respiratory rate 16 553 with pulse ox 97% on 2 L. Patient denies chest pain or shortness breath. Patient denies nausea vomiting diarrhea. Patient denies any urinary burning or frequency On 12/25/2023 patient was seen and examined on the medical floor, she is alert and oriented 3 in no apparent distress, she is still complaining of shortness of breath with any activity, Otherwise she denies any complaints there is no fever or chills no headache or dizziness no chest pain no cough no nausea or vomiting no abdominal pain no diarrhea and no urinary symptoms, she remains on IV Lasix, cardiology are following On 12/26/2023 patient's alert and oriented 3. Patient resting comfortably in bed. Patient to maintained on IV Lasix per cardiology. Urine culture currently growing gram-negative bacilli will start patient on IV antibiotic. Patient denies chest pain. Patient denies nausea vomiting or diarrhea. Patient denies any urinary burning or frequency on 12/27/2023 patient was seen and examined on the medical floor she is alert and oriented in no apparent distress, she is complaining of shortness of breath with activity otherwise she denies any complaints, there is no fever or chills no headache or dizziness no chest pain no cough, no nausea or vomiting no abdominal pain no diarrhea and no urinary symptoms. patient will be transitioned from IV Lasix to Bumex 2 mg by mouth twice a day, will monitor kidney function closely will follow in a.m.. Objective - Vital Signs Vital signs: Vital Signs Temp 97.7 F 12/27/23 03:23 Pulse 79 12/27/23 03:23 Resp 20 12/27/23 03:23 BP 95/63 12/27/23 03:23 Pulse Ox 100 12/27/23 03:23 FiO2 Intake & Output 12/26/23 12/27/23 12/27/23 18:59 06:59 18:59 Intake Total 720 Output Total 1300 1100 450 Balance -580 -1100 -450 Intake: Oral 720 Output: Urine 1300 1100 450 Other: Voiding Method External Catheter External Catheter # Voids 0 # Bowel Movements 0 - Exam Head normocephalic Neck supple Lungs clear to auscultation bilaterally no wheezing or crackles Heart regular rate and rhythm S1-S2, no rub or gallop Abdomen is soft nontender nondistended positive bowel sounds no hep atosplenomegaly Extremities no edema Neuro alert and orientated to 3 - Labs CBC & Chem 7: 12/27/23 06:54 12/27/23 06:54 Labs: Abnormal Lab Results - Last 24 Hours (Table) 12/27/23 12/27/23 Range/Units 06:54 06:54 Hgb 10.6 L (11.4-16.0) gm/dL MCHC 30.0 L (31.0-37.0) g/dL RDW 16.7 H (11.5-15.5) % Potassium 3.3 L (3.5-5.1) mmol/L Chloride 96 L (98-107) mmol/L Carbon Dioxide 35 H (22-30) mmol/L BUN 19 H (7-17) mg/dL Alkaline Phosphatase 130 H (38-126) U/L Microbiology - Last 24 Hours (Table) 12/24/23 14:56 Urine Culture - Final Urine,Voided Escherichia coli Assessment and Plan Assessment: 1. Increased shortness breath secondary to acute exacerbation of CHF 2. History of systolic congestive heart failure 3. History of valvular heart disease with previous history of mitral valve repair and aortic valve replacement 4. History of nonischemic cardiomyopathy 5. History of COPD 6. History of atrial fibrillation 7. History of coronary artery disease with history of coronary artery bypass graft surgery 8. History of partial thyroidectomy 9. History of essential hypertension 10. History of pulmonary hypertension 11. History of osteoarthritis 12. Urinary tract infection. Patient started on IV antibiotic urine culture At this time patient will be admitted Patient started on IV Lasix Cardiology services consulted DVT prophylaxisHeparin. GI prophylaxis Protonix
[2023-12-28 07:26] LABS: ALT 11 U/L (4-34); AST 21 U/L (14-36); African American GFR (CKD) 68 (>60 ml/min/1.73 sqM); Albumin 3.8 g/dL (3.5-5.0); Alkaline Phosphatase 131 U/L (38-126); Anion Gap 11 mmol/L; Blood Urea Nitrogen 21 mg/dL (7-17); Calcium 8.7 mg/dL (8.4-10.2); Carbon Dioxide 37 mmol/L (22-30); Chloride 92 mmol/L (98-107); Glucose 102 mg/dL (74-99); Non-African American GFR(CKD) 59 (>60 ml/min/1.73 sqM); Potassium 3.4 mmol/L (3.5-5.1); Sodium 140 mmol/L (137-145); Total Bilirubin 0.9 mg/dL (0.2-1.3); Total Protein 7.5 g/dL (6.3-8.2)
[2023-12-28 08:23] LABS: Anisocytosis Slight; HCT 34.2 % (34.0-46.0); HGB 10.4 gm/dL (11.4-16.0); Hypochromasia Moderate; MCH 26.6 pg (25.0-35.0); MCHC 30.6 g/dL (31.0-37.0); MCV 86.9 fL (80.0-100.0); Mean Platelet Volume 8.8; Platelet Count 195 k/uL (150-450); RBC 3.93 m/uL (3.80-5.40); RDW 16.7 % (11.5-15.5); WBC 6.2 k/uL (3.8-10.6)
[2023-12-28] MEDS ORDERED: POTASSIUM CHLORIDE ER 20 MEQ TAB.ER PO SCH (09:00)
[2023-12-28 09:27] LABS: Band Neutrophils % 1 %; Eosinophils # (M) 0.43 k/uL (0-0.7); Lymphocytes # (M) 1.43 k/uL (1.0-4.8); Metamyelocytes # (M) 0.06 k/uL (0); Metamyelocytes % 1 %; Neutrophils % (M) 62 %; Nucleated Red Blood Cells 0 /100 WBC (0-0); Total Cells Counted 200
[2023-12-28] MEDS: POTASSIUM CHLORIDE ER 20 MEQ TAB.ER PO SCH (09:52)
[2023-12-28] MEDS: HYDROcodone/APAP 10-325MG 1 EACH TAB PO PRN (10:10)
--- NOTE | 2023-12-28 10:26 | P.PN ---
Subjective Progress Note Date: 12/28/23 this is an 78-year-old female patient who presented to the emergency room complaining of difficulty breathing that had been increasing over the past few days. Patient has an extensive medical history and frequent admissions. History includes history of fibrillation, heart failure, COPD, GERD, osteoarthr itis, rheumatoid arthritis, supraventricular tachycardia, coronary artery is past graft surgery.chest x-ray completed showing overall similar cardiomegaly with interstitial pulmonary edema small left pleural effusion with adjacent atelectasis and/or consolidation. Patient's BNP elevated 1180, troponin negative. White blood cell 8.8. Patient was started on IV Lasix and cardiology service is consulted. current vital signs temp 97.9, heart rate 67, respiratory rate 20, blood pressure 109/61 with a pulse ox 92% on 3 L On 12/24/2023 patient's alert and oriented 3.Patient remains on IV Lasix. Potassium low at 3.4 placed per protocol. Current vital signs temp 97.6, respiratory rate 16 553 with pulse ox 97% on 2 L. Patient denies chest pain or shortness breath. Patient denies nausea vomiting diarrhea. Patient denies any urinary burning or frequency On 12/25/2023 patient was seen and examined on the medical floor, she is alert and oriented 3 in no apparent distress, she is still complaining of shortness of breath with any activity, Otherwise she denies any complaints there is no f ever or chills no headache or dizziness no chest pain no cough no nausea or vomiting no abdominal pain no diarrhea and no urinary symptoms, she remains on IV Lasix, cardiology are following On 12/26/2023 patient's alert and oriented 3. Patient resting comfortably in bed. Patient to maintained on IV Lasix per cardiology. Urine culture currently growing gram-negative bacilli will start patient on IV antibiotic. Patient denies chest pain. Patient denies nausea vomiting or diarrhea. Patient denies any urinary burning or frequency on 12/27/2023 patient was seen and examined on the medical floor she is alert and oriented in no apparent distress, she is complaining of shortness of breath with activity otherwise she denies any complaints, there is no fever or chills no headache or dizziness no chest pain no cough, no nausea or vomiting no abdominal pain no diarrhea and no urinary symptoms. patient will be transitioned from IV Lasix to Bumex 2 mg by mouth twice a day, will monitor kidney function closely will follow in a.m.. on 12/27/2022 4 patient's alert and oriented 3.current vital signs temp 97.9, heart rate 60, respiratory rate 20, blood pressure 100/66 with pulse ox 98% on 3 L. At this time patient denies chest pain. Patient denies nausea vomiting or diarrhea. Patient denies any urinary burning or frequency Objective - Vital Signs Vital signs: Vital Signs Temp 97.9 F 12/28/23 03:31 Pulse 68 12/28/23 03:31 Resp 20 12/28/23 03:31 BP 100/66 12/28/23 03:31 Pulse Ox 98 12/28/23 03:31 FiO2 Intake & Output 12/27/23 12/28/23 12/28/23 18:59 06:59 18:59 Intake Total 118 Output Total 850 900 Balance -732 900 Intake: Oral 118 Output: Urine 850 900 Other: Voiding Method External Catheter External Catheter # Voids 1 # Bowel Movements 1 - Exam Head normocephalic Neck supple Lungs clear to auscultation bilaterally no wheezing or crackles Heart regular rate and rhythm S1-S2, no rub or gallop Abdomen is soft nontender nondistended positive bowel sounds no hepatosplenomegaly Extremities no edema Neuro alert and orientated to 3 - Labs CBC & Chem 7: 12/28/23 06:36 12/28/23 06:36 Labs: Abnormal Lab Results - Last 24 Hours (Table) 12/28/23 12/28/23 Range/Units 06:36 06:36 Hgb 10.4 L (11.4-16.0) gm/dL MCHC 30.6 L (31.0-37.0) g/dL RDW 16.7 H (11.5-15.5) % Metamyelocytes # (Man) 0.06 H (0) k/uL Potassium 3.4 L (3.5-5.1) mmol/L Chloride 92 L (98-107) mmol/L Carbon Dioxide 37 H (22-30) mmol/L BUN 21 H (7-17) mg/dL Glucose 102 H (74-99) mg/dL Alkaline Phosphatase 131 H (38-126) U/L Assessment and Plan Assessment: 1. Increased shortness breath secondary to acute exacerbation of CHF 2. History of systolic congestive heart failure 3. History of valvular heart disease with previous history of mitral valve repair and aortic valve replacement 4. History of nonischemic cardiomyopathy 5. History of COPD 6. History of atrial fibrillation 7. History of coronary artery disease with history of coronary artery bypass graft surgery 8. History of partial thyroidectomy 9. History of essential hypertension 10. History of pulmonary hypertension 11. History of osteoarthritis 12. Urinary tract infection. Patient started on IV antibiotic urine culture At this time patient will be admitted Cardiology services consulted DVT prophylaxisHeparin. GI prophylaxis Protonix
--- NOTE | 2023-12-28 10:39 | P.PN ---
Subjective Progress Note Date: 12/28/23 This is an 78-year-old female patient of Dr. Flores with past medical history of persistent atrial fibrillation/flutter recently taken off Coumadin, known EF of 37%, history of mitral valve repair, nonischemic cardiomyopathy, pulmonary hypertension, hypothyroidism, chronic hypoxic respiratory failure on home O2. Patient has had multiple hospitalizations for A-fib with RVR and congestive heart failure and has not been seen in the office since 02/20/2023. Patient presented to the hospital due to shortness of breath. Patient woke up with difficulty in breathing. No chest pain. No lightheadedness or dizziness. Patient has been started on her home medications including Bumex oral and potassium has been replaced. Patient can planes of dysuria. EKG atrial fibrillation 82 bpm Chest x-ray: Similar cardiomegaly with interstitial pulmonary edema. Small left pleural effusion with adjacent atelectasis and/or consolidation. WBC 5.8, hemoglobin 10.5. Sodium 138, potassium 3.4, BUN 18 creatinine 0.97. Alkaline phosphatase 127. Home cardiac medications: Aspirin 81 mg daily, Bumex 1 mg daily, Farxiga 10 mg daily, Lopressor 50 mg twice daily, patient also on levothyroxine 150 mcg daily. Echocardiogram in June 2023 revealed ejection fraction 30-35%, severe pulmonary hypertension, bioprosthetic aortic valve, and mitral valve repair with mild MR Cardiac catheterization history: October 2017 revealing normal coronary arteries Cardioversion 07/05/2022 for atrial flutter with anglican of sinus rhythm Aortic valve replacement 10/13/2017 with Magna E[employer] bioprosthetic aortic valve, mitral valve repair with [employer] annular flex band, clip ligation of the left atrial appendage. MATTHEW performed 01/30/2018 revealed sutured left atrial appendage, bioprosthetic aortic valve with normal functioning, mitral annuloplasty with mitral valve repair and mild mitral regurgitation. Moderate tricuspid regurgitation. No evidence of shunting across the intra-atrial septum. 12/24 patient seen and examined. Patient still with similar shortness breath. Has been on Lasix 40 mg IV twice a day and states has been having good urine output. Denies any chest pain or pressure. 12/26 Patient has been maintained on IV Lasix 40 mg twice daily. Blood pressure 95/63, heart rates in the 70s and 80s, pulse ox 100% on 3 L nasal cannula. Repeat blood work reveals a hemoglobin 10.6, BUN 19 creatinine 0.95, potassium 3.3 12/27 Patient denies any new complaints. She denies shortness of breath today. Yest erday we transition IV Lasix to Bumex oral 2 mg twice daily. Patient has a negative fluid bolus this morning. Blood pressure 100/66, heart rate in the 60s, pulse ox 98% on 3 L nasal cannula. Repeat blood work reveals hemoglobin of 10.4 which is stable. Potassium 3.4 and has been replaced, BUN 21 creatinine 0.92. Physical examination: Gen: This is an 78-year-old female resting in bed and appears to be in no acute distress. VS: reviewed, blood pressure 95/53, heart rate 61, pulse ox 97% on 3 L nasal cannula. HEENT: Head is atraumatic, normocephalic. Pupils equal, round. Sclerae is anicteric. NECK: Supple. No JVD. LUNGS: Diminished breath sounds bilaterally. No intercostal retractions. HEART: Irregular rate and rhythm. 2/6 systolic murmur. ABDOMEN: Soft No tenderness. EXTREMITIES: Mild pedal edema. No calf tenderness. NEUROLOGICAL: Patient is awake, alert. Assessment: Persistent A-fib atrial flutter Cardiomyopathy with EF 35% June 2023 Valvular heart disease s/p mitral valve repair and aortic valve replacement Acute on chronic systolic heart failure Severe tricuspid regurgitation Pulmonary hypertension Hypothyroidism Chronic hypoxic respiratory failure on home O2 Plan: Continue patient's home cardiac medications Continue oral Bumex 2 mg twice daily Monitor JASVIR, daily weights, electrolytes and renal function No need to repeat echocardiogram Patient with some dysuria previously however urinalysis not consistent with urinary tract infection. Continue to monitor however if has more urinary tract infection issues may need to discontinue SGLT2 inhibitor. Replace potassium Nurse practitioner note has been reviewed, I agree with documented findings and plan of care. Patient was seen and examined. Objective - Vital Signs Vital signs: Vital Signs Temp 97.9 F 12/28/23 03:31 Pulse 68 12/28/23 03:31 Resp 20 12/28/23 03:31 BP 100/66 12/28/23 03:31 Pulse Ox 98 12/28/23 03:31 FiO2 Intake & Output 12/27/23 12/28/23 12/28/23 18:59 06:59 18:59 Intake Total 118 Output Total 850 900 Balance -712 900 Intake: Oral 118 Output: Urine 850 900 Other: Voiding Method External Catheter External Catheter # Voids 1 # Bowel Movements 1 - Labs CBC & Chem 7: 12/28/23 06:36 12/28/23 06:36 Labs: Abnormal Lab Results - Last 24 Hours (Table) 12/27/23 12/28/23 Range/Units 06:54 06:36 Hgb 10.6 L (11.4-16.0) gm/dL MCHC 30.0 L (31.0-37.0) g/dL RDW 16.7 H (11.5-15.5) % Potassium 3.4 L (3.5-5.1) mmol/L Chloride 92 L (98-107) mmol/L Carbon Dioxide 37 H (22-30) mmol/L BUN 21 H (7-17) mg/dL Glucose 102 H (74-99) mg/dL Alkaline Phosphatase 131 H (38-126) U/L
[2023-12-29 11:06] LABS: Anisocytosis Slight; Basophils # (A) 0.1 k/uL (0-0.2); Basophils % (A) 1 %; Eosinophils # (A) 0.3 k/uL (0-0.7); Eosinophils % (A) 5 %; HCT 35.6 % (34.0-46.0); HGB 10.7 gm/dL (11.4-16.0); Hypochromasia Marked; Lymphocytes # (A) 1.5 k/uL (1.0-4.8); Lymphocytes % (A) 26 %; MCH 26.6 pg (25.0-35.0); MCHC 29.9 g/dL (31.0-37.0); MCV 89.2 fL (80.0-100.0); Mean Platelet Volume 8.7; Monocytes # (A) 0.3 k/uL (0-1.0); Monocytes % (A) 5 %; Neutrophils # (A) 3.4 k/uL (1.3-7.7); Neutrophils % (A) 59 %; Platelet Count 205 k/uL (150-450); RDW 16.8 % (11.5-15.5); WBC 5.8 k/uL (3.8-10.6)
[2023-12-29 11:08] LABS: ALT 11 U/L (4-34); AST 21 U/L (14-36); African American GFR (CKD) 58 (>60 ml/min/1.73 sqM); Albumin 3.7 g/dL (3.5-5.0); Alkaline Phosphatase 134 U/L (38-126); Anion Gap 5 mmol/L; Blood Urea Nitrogen 22 mg/dL (7-17); Carbon Dioxide 40 mmol/L (22-30); Chloride 95 mmol/L (98-107); Glucose 91 mg/dL (74-99); Non-African American GFR(CKD) 50 (>60 ml/min/1.73 sqM); Potassium 3.9 mmol/L (3.5-5.1); Sodium 140 mmol/L (137-145); Total Bilirubin 0.8 mg/dL (0.2-1.3); Total Protein 7.5 g/dL (6.3-8.2)
--- NOTE | 2023-12-29 13:47 | P.PN ---
Subjective HISTORY OF PRESENT ILLNESS: This is an 78-year-old female patient of Dr. Flores with past medical history of persistent atrial fibrillation/flutter recently taken off Coumadin, known EF of 37%, history of mitral valve repair, nonischemic cardiomyopathy, pulmonary hypertension, hypothyroidism, chronic hypoxic respiratory failure on home O2. Patient has had multiple hospitalizations for A-fib with RVR and congestive heart failure and has not been seen in the office since 02/20/2023. Patient presented to the hospital due to shortness of breath. Patient woke up with difficulty in breathing. No chest pain. No lightheadedness or dizziness. Patient has been started on her home medications including Bumex oral and potassium has been replaced. Patient can planes of dysuria. EKG atrial fibrillation 82 bpm Chest x-ray: Similar cardiomegaly with interstitial pulmonary edema. Small left pleural effusion with adjacent atelectasis and/or consolidation. WBC 5.8, hemoglobin 10.5. Sodium 138, potassium 3.4, BUN 18 creatinine 0.97. Alkaline phosphatase 127. Home cardiac medications: Aspirin 81 mg daily, Bumex 1 mg daily, Farxiga 10 mg daily, Lopressor 50 mg twice daily, patient also on levothyroxine 150 mcg daily. Echocardiogram in June 2023 revealed ejection fraction 30-35%, severe pulmonary hypertension, bioprosthetic aortic valve, and mitral valve repair with mild MR Cardiac catheterization history: October 2017 revealing normal coronary arteries Cardioversion 07/05/2022 for atrial flutter with mosque of sinus rhythm Aortic valve replacement 10/13/2017 with Magna Ease bioprosthetic aortic valve, mitral valve repair with [employer] annular flex band, clip ligation of the left atrial appendage. MATTHEW performed 01/30/2018 revealed sutured left atrial appendage, bioprosthetic aortic valve with normal functioning, mitral annuloplasty with mitral valve repair and mild mitral regurgitation. Moderate tricuspid regurgitation. No evidence of shunting across the intra-atrial septum. 12/24 patient seen and examined. Patient still with similar shortness breath. Has been on Lasix 40 mg IV twice a day and states has been having good urine output. Denies any chest pain or pressure. 12/26 Patient has been maintained on IV Lasix 40 mg twice daily. Blood pressure 95/63, heart rates in the 70s and 80s, pulse ox 100% on 3 L nasal cannula. Repeat blood work reveals a hemoglobin 10.6, BUN 19 creatinine 0.95, potassium 3 .3 12/27 Patient denies any new complaints. She denies shortness of breath today. Yesterday we transition IV Lasix to Bumex oral 2 mg twice daily. Patient has a negative fluid bolus this morning. Blood pressure 100/66, heart rate in the 60s, pulse ox 98% on 3 L nasal cannula. Repeat blood work reveals hemoglobin of 10.4 which is stable. Potassium 3.4 and has been replaced, BUN 21 creatinine 0.92. 12/29/2023 Patient examined this morning at the bedside. Patient currently denies any chest pain or pressure. She reports shortness of breath, although improved from admission. She remains on oral Bumex 2 mg twice a day. Creatinine today 1.06. Telemetry reveals atrial fibrillation with controlled ventricular rate. PHYSICAL EXAM: VITAL SIGNS: Reviewed. GENERAL: Well-developed in no acute distress. NECK: Supple. No JVD or thyromegaly LUNGS: Respirations even and unlabored. Lungs diminished with a few crackles bilaterally HEART: Irregular rate and rhythm. S1 and S2 heard. Systolic murmur noted. EXTREMITIES: Normal range of motion. No clubbing or cyanosis. Peripheral pulses intact. No lower extremity edema ASSESSMENT: Acute on chronic heart failure with reduced EF Persistent atrial fibrillation, not anticoagulated on an outpatient basis secondary to sutured left atrial appendage Nonischemic cardiomyopathy Valvular heart disease s/p mitral valve repair and aortic valve replacement Severe tricuspid regurgitation Pulmonary hypertension Hypothyroidism Chronic hypoxic respiratory failure on home O2 PLAN: Continue current cardiac medications Continue oral Bumex 2 mg twice a day Daily weights, accurate intake and output, and monitoring of kidney function. Repeat BMP in AM. Repeat BNP in a.m. Continue telemetry monitoring Further recommendations pending patient course Nurse practitioner note has been reviewed by physician. Signing provider agrees with the documented findings, assessment, and plan of care documented by [facility] MANAGER as a scribe. Objective - Vital Signs Vital signs: Vital Signs Temp 98.0 F 12/29/23 11:40 Pulse 83 12/29/23 11:40 Resp 20 12/29/23 11:40 BP 100/61 12/29/23 11:40 Pulse Ox 100 12/29/23 11:40 FiO2 Intake & Output 12/28/23 12/29/23 12/29/23 18:59 06:59 18:59 Intake Total 240 128 Output Total 720 650 Balance -480 -650 128 Intake: IV 10 Invasive Line 4 10 Oral 240 118 Output: Urine 720 650 Other: Voiding Method External Catheter External Catheter External Catheter # Bowel Movements 0 - Labs CBC & Chem 7: 12/29/23 09:36 12/29/23 09:36 Labs: Abnormal Lab Results - Last 24 Hours (Table) 12/29/23 12/29/23 Range/Units 09:36 09:36 Hgb 10.7 L (11.4-16.0) gm/dL MCHC 29.9 L (31.0-37.0) g/dL RDW 16.8 H (11.5-15.5) % Chloride 95 L (98-107) mmol/L Carbon Dioxide 40 H (22-30) mmol/L BUN 22 H (7-17) mg/dL Creatinine 1.06 H (0.52-1.04) mg/dL Alkaline Phosphatase 134 H (38-126) U/L
--- NOTE | 2023-12-29 17:28 | P.PN ---
Subjective Progress Note Date: 12/29/23 this is an 78-year-old female patient who presented to the emergency room complaining of difficulty breathing that had been increasing over the past few days. Patient has an extensive medical history and frequent admissions. History includes history of fibrillation, heart failure, COPD, GERD, osteoart hritis, rheumatoid arthritis, supraventricular tachycardia, coronary artery is past graft surgery.chest x-ray completed showing overall similar cardiomegaly with interstitial pulmonary edema small left pleural effusion with adjacent atelectasis and/or consolidation. Patient's BNP elevated 1180, troponin negative. White blood cell 8.8. Patient was started on IV Lasix and cardiology service is consulted. current vital signs temp 97.9, heart rate 67, respiratory rate 20, blood pressure 109/61 with a pulse ox 92% on 3 L On 12/24/2023 patient's alert and oriented 3.Patient remains on IV Lasix. Potassium low at 3.4 placed per protocol. Current vital signs temp 97.6, respiratory rate 16 553 with pulse ox 97% on 2 L. Patient denies chest pain or shortness breath. Patient denies nausea vomiting diarrhea. Patient denies any urinary burning or frequency On 12/25/2023 patient was seen and examined on the medical floor, she is alert and oriented 3 in no apparent distress, she is still complaining of shortness of breath with any activity, Otherwise she denies any complaints there is no fever or chills no headache or dizziness no chest pain no cough no nausea or vomiting no abdominal pain no diarrhea and no urinary symptoms, she remains on IV Lasix, cardiology are following On 12/26/2023 patient's alert and oriented 3. Patient resting comfortably in bed. Patient to maintained on IV Lasix per cardiology. Urine culture currently growing gram-negative bacilli will start patient on IV antibiotic. Patient denies chest pain. Patient denies nausea vomiting or diarrhea. Patient denies any urinary burning or frequency on 12/27/2023 patient was seen and examined on the medical floor she is alert and oriented in no apparent distress, she is complaining of shortness of breath with activity otherwise she denies any complaints, there is no fever or chills no headache or dizziness no chest pain no cough, no nausea or vomiting no abdominal pain no diarrhea and no urinary symptoms. patient will be transitioned from IV Lasix to Bumex 2 mg by mouth twice a day, will monitor kidney function closely will follow in a.m.. on 12/29/2023 patient was seen and examined on the medical floor she is alert and oriented 3 in no apparent distress she is resting comfortably in bed she is complaining of shortness of breath with any activity otherwise she denies any complaints there is no fever or chills no headache or dizziness no chest pain no no palpitation no cough no nausea or vomiting no abdominal pain no diarrhea and no urinary symptoms. patient was switched to Bumex 2 milligrams by mouth twice daily, will continue to monitor closely. Objective - Vital Signs Vital signs: Vital Signs Temp 97.7 F 12/29/23 09:07 Pulse 89 12/29/23 09:07 Resp 20 12/29/23 09:07 BP 98/64 12/29/23 09:07 Pulse Ox 100 12/29/23 09:07 FiO2 Intake & Output 12/28/23 12/29/23 12/29/23 18:59 06:59 18:59 Intake Total 240 Output Total 720 650 Balance -480 -650 Intake: Oral 240 Output: Urine 720 650 Other: Voiding Method External Catheter External Catheter # Bowel Movements 0 - Exam Head normocephalic Neck supple Lungs clear to auscultation bilaterally no wheezing or crackles Heart regular rate and rhythm S1-S2, no rub or gallop Abdomen is soft nontender nondistended positive bowel sounds no hepatosplenomeg oksana Extremities no edema Neuro alert and orientated to 3 - Labs CBC & Chem 7: 12/29/23 09:36 12/29/23 09:36 Labs: Abnormal Lab Results - Last 24 Hours (Table) 12/28/23 Range/Units 06:36 Metamyelocytes # (Man) 0.06 H (0) k/uL Assessment and Plan Assessment: 1. Increased shortness breath secondary to acute exacerbation of CHF 2. History of systolic congestive heart failure 3. History of valvular heart disease with previous history of mitral valve repair and aortic valve replacement 4. History of nonischemic cardiomyopathy 5. History of COPD 6. History of atrial fibrillation 7. History of coronary artery disease with history of coronary artery bypass graft surgery 8. History of partial thyroidectomy 9. History of essential hypertension 10. History of pulmonary hypertension 11. History of osteoarthritis 12. Urinary tract infection. Patient started on IV antibiotic urine culture At this time patient will be admitted Patient started on IV Lasix Cardiology services consulted DVT prophylaxisHeparin. GI prophylaxis Protonix
--- NOTE | 2023-12-30 09:23 | P.PN ---
Subjective Progress Note Date: 12/30/23 this is an 78-year-old female patient who presented to the emergency room complaining of difficulty breathing that had been increasing over the past few days. Patient has an extensive medical history and frequent admissions. History includes history of fibrillation, heart failure, COPD, GERD, osteoarthr itis, rheumatoid arthritis, supraventricular tachycardia, coronary artery is past graft surgery.chest x-ray completed showing overall similar cardiomegaly with interstitial pulmonary edema small left pleural effusion with adjacent atelectasis and/or consolidation. Patient's BNP elevated 1180, troponin negative. White blood cell 8.8. Patient was started on IV Lasix and cardiology service is consulted. current vital signs temp 97.9, heart rate 67, respiratory rate 20, blood pressure 109/61 with a pulse ox 92% on 3 L On 12/24/2023 patient's alert and oriented 3.Patient remains on IV Lasix. Potassium low at 3.4 placed per protocol. Current vital signs temp 97.6, respiratory rate 16 553 with pulse ox 97% on 2 L. Patient denies chest pain or shortness breath. Patient denies nausea vomiting diarrhea. Patient denies any urinary burning or frequency On 12/25/2023 patient was seen and examined on the medical floor, she is alert and oriented 3 in no apparent distress, she is still complaining of shortness of breath with any activity, Otherwise she denies any complaints there is no f ever or chills no headache or dizziness no chest pain no cough no nausea or vomiting no abdominal pain no diarrhea and no urinary symptoms, she remains on IV Lasix, cardiology are following On 12/26/2023 patient's alert and oriented 3. Patient resting comfortably in bed. Patient to maintained on IV Lasix per cardiology. Urine culture currently growing gram-negative bacilli will start patient on IV antibiotic. Patient denies chest pain. Patient denies nausea vomiting or diarrhea. Patient denies any urinary burning or frequency on 12/27/2023 patient was seen and examined on the medical floor she is alert and oriented in no apparent distress, she is complaining of shortness of breath with activity otherwise she denies any complaints, there is no fever or chills no headache or dizziness no chest pain no cough, no nausea or vomiting no abdominal pain no diarrhea and no urinary symptoms. patient will be transitioned from IV Lasix to Bumex 2 mg by mouth twice a day, will monitor kidney function closely will follow in a.m.. on 12/29/2023 patient was seen and examined on the medical floor she is alert and oriented 3 in no apparent distress she is resting comfortably in bed she is complaining of shortness of breath with any activity otherwise she denies any complaints there is no fever or chills no headache or dizziness no chest pain no no palpitation no cough no nausea or vomiting no abdominal pain no diarrhea and no urinary symptoms. patient was switched to Bumex 2 milligrams by mouth twice daily, will continue to monitor closely. On 12/29/2022 for patient's alert and oriented 3.PT OT services consulted. Current vital signs HR 80, respiratory rate 20 blood pressure 100/60. 100% on 3 L. patient denies chest pain. Patient denies chest pain. Patient denies nausea vomiting or diarrhea. Patient denies any urinary burning or frequency. Objective - Vital Signs Vital signs: Vital Signs Temp 97.6 F 12/30/23 07:57 Pulse 80 12/30/23 07:57 Resp 20 12/30/23 07:57 BP 100/63 12/30/23 07:57 Pulse Ox 100 12/30/23 07:57 FiO2 Intake & Output 12/29/23 12/30/23 12/30/23 18:59 06:59 18:59 Intake Total 608 10 Output Total 850 650 Balance -242 -650 10 Intake: IV 10 10 Invasive Line 4 10 10 Oral 598 Output: Urine 850 650 Other: Voiding Method External Catheter External Catheter - Exam Head normocephalic Neck supple Lungs clear to auscultation bilaterally no wheezing or crackles Heart regular rate and rhythm S1-S2, no rub or gallop Abdomen is soft nontender nondistended positive bowel sounds no hepatosplenomegaly Extremities no edema Neuro alert and orientated to 3 - Labs CBC & Chem 7: 12/29/23 09:36 12/29/23 09:36 Labs: Abnormal Lab Results - Last 24 Hours (Table) 12/29/23 12/29/23 Range/Units 09:36 09:36 Hgb 10.7 L (11.4-16.0) gm/dL MCHC 29.9 L (31.0-37.0) g/dL RDW 16.8 H (11.5-15.5) % Chloride 95 L (98-107) mmol/L Carbon Dioxide 40 H (22-30) mmol/L BUN 22 H (7-17) mg/dL Creatinine 1.06 H (0.52-1.04) mg/dL Alkaline Phosphatase 134 H (38-126) U/L Assessment and Plan Assessment: 1. Increased shortness breath secondary to acute exacerbation of CHF 2. History of systolic congestive heart failure 3. History of valvular heart disease with previous history of mitral valve repair and aortic valve replacement 4. History of nonischemic cardiomyopathy 5. History of COPD 6. History of atrial fibrillation 7. History of coronary artery disease with history of coronary artery bypass graft surgery 8. History of partial thyroidectomy 9. History of essential hypertension 10. History of pulmonary hypertension 11. History of osteoarthritis 12. Urinary tract infection. Patient started on IV antibiotic urine culture At this time patient will be admitted Patient started on IV Lasix Cardiology services consulted DVT prophylaxisHeparin. GI prophylaxis Protonix
[2023-12-30 09:34] LABS: Anisocytosis Slight; Basophils # (A) 0.1 k/uL (0-0.2); Basophils % (A) 1 %; Eosinophils # (A) 0.3 k/uL (0-0.7); Eosinophils % (A) 5 %; HCT 33.5 % (34.0-46.0); HGB 9.9 gm/dL (11.4-16.0); Hypochromasia Marked; Lymphocytes # (A) 1.5 k/uL (1.0-4.8); Lymphocytes % (A) 23 %; MCH 25.9 pg (25.0-35.0); MCHC 29.4 g/dL (31.0-37.0); MCV 88.1 fL (80.0-100.0); Mean Platelet Volume 8.6; Monocytes # (A) 0.5 k/uL (0-1.0); Monocytes % (A) 7 %; Neutrophils % (A) 60 %; Platelet Count 234 k/uL (150-450); RDW 16.7 % (11.5-15.5); WBC 6.6 k/uL (3.8-10.6)
[2023-12-30 10:23] LABS: ALT 13 U/L (4-34); AST 24 U/L (14-36); African American GFR (CKD) 65 (>60 ml/min/1.73 sqM); Albumin 3.7 g/dL (3.5-5.0); Alkaline Phosphatase 126 U/L (38-126); Anion Gap 8 mmol/L; Blood Urea Nitrogen 23 mg/dL (7-17); Calcium 8.9 mg/dL (8.4-10.2); Carbon Dioxide 39 mmol/L (22-30); Chloride 93 mmol/L (98-107); Glucose 120 mg/dL (74-99); Non-African American GFR(CKD) 56 (>60 ml/min/1.73 sqM); Potassium 3.6 mmol/L (3.5-5.1); Sodium 140 mmol/L (137-145); Total Bilirubin 0.6 mg/dL (0.2-1.3); Total Protein 7.5 g/dL (6.3-8.2)
[2023-12-30 10:26] LABS: NT-Pro-B-Type Natriuretic Pept 4940 pg/mL
--- NOTE | 2023-12-30 13:15 | P.PN ---
Subjective HISTORY OF PRESENT ILLNESS: This is an 78-year-old female patient of Dr. Flores with past medical history of persistent atrial fibrillation/flutter recently taken off Coumadin, known EF of 37%, history of mitral valve repair, nonischemic cardiomyopathy, pulmonary hypertension, hypothyroidism, chronic hypoxic respiratory failure on home O2. Patient has had multiple hospitalizations for A-fib with RVR and congestive heart failure and has not been seen in the office since 02/20/2023. Patient presented to the hospital due to shortness of breath. Patient woke up with difficulty in breathing. No chest pain. No lightheadedness or dizziness. Patient has been started on her home medications including Bumex oral and potassium has been replaced. Patient can planes of dysuria. EKG atrial fibrillation 82 bpm Chest x-ray: Similar cardiomegaly with interstitial pulmonary edema. Small left pleural effusion with adjacent atelectasis and/or consolidation. WBC 5.8, hemoglobin 10.5. Sodium 138, potassium 3.4, BUN 18 creatinine 0.97. Alkaline phosphatase 127. Home cardiac medications: Aspirin 81 mg daily, Bumex 1 mg daily, Farxiga 10 mg daily, Lopressor 50 mg twice daily, patient also on levothyroxine 150 mcg daily. Echocardiogram in June 2023 revealed ejection fraction 30-35%, severe pulmonary hypertension, bioprosthetic aortic valve, and mitral valve repair with mild MR Cardiac catheterization history: October 2017 revealing normal coronary arteries Cardioversion 07/05/2022 for atrial flutter with confucianist of sinus rhythm Aortic valve replacement 10/13/2017 with Magna Ease bioprosthetic aortic valve, mitral valve repair with [employer] annular flex band, clip ligation of the left atrial appendage. MATTHEW performed 01/30/2018 revealed sutured left atrial appendage, bioprosthetic aortic valve with normal functioning, mitral annuloplasty with mitral valve repair and mild mitral regurgitation. Moderate tricuspid regurgitation. No evidence of shunting across the intra-atrial septum. 12/24 patient seen and examined. Patient still with similar shortness breath. Has been on Lasix 40 mg IV twice a day and states has been having good urine output. Denies any chest pain or pressure. 12/26 Patient has been maintained on IV Lasix 40 mg twice daily. Blood pressure 95/63, heart rates in the 70s and 80s, pulse ox 100% on 3 L nasal cannula. Repeat blood work reveals a hemoglobin 10.6, BUN 19 creatinine 0.95, potassium 3 .3 12/27 Patient denies any new complaints. She denies shortness of breath today. Yesterday we transition IV Lasix to Bumex oral 2 mg twice daily. Patient has a negative fluid bolus this morning. Blood pressure 100/66, heart rate in the 60s, pulse ox 98% on 3 L nasal cannula. Repeat blood work reveals hemoglobin of 10.4 which is stable. Potassium 3.4 and has been replaced, BUN 21 creatinine 0.92. 12/29/2023 Patient examined this morning at the bedside. Patient currently denies any chest pain or pressure. She reports shortness of breath, although improved from admission. She remains on oral Bumex 2 mg twice a day. Creatinine today 1.06. Telemetry reveals atrial fibrillation with controlled ventricular rate. 12/30/2023 Patient examined this morning at the bedside. Patient denies chest pain or pressure. She continues to report improvement in her shortness of breath. BUN 23. Creatinine 0.96. Repeat proBNP today 4940, which is increased from admission proBNP of 1880. PHYSICAL EXAM: VITAL SIGNS: Reviewed. GENERAL: Well-developed in no acute distress. NECK: Supple. No JVD or thyromegaly LUNGS: Respirations even and unlabored. Lungs diminished. HEART: Irregular rate and rhythm. S1 and S2 heard. Systolic murmur noted. EXTREMITIES: Normal range of motion. No clubbing or cyanosis. Peripheral pulses intact. No lower extremity edema ASSESSMENT: Acute on chronic heart failure with reduced EF Persistent atrial fibrillation, not anticoagulated on an outpatient basis secondary to sutured left atrial appendage Nonischemic cardiomyopathy Valvular heart disease s/p mitral valve repair and aortic valve replacement Severe tricuspid regurgitation Pulmonary hypertension Hypothyroidism Chronic hypoxic respiratory failure on home O2 PLAN: Continue current cardiac medications Continue oral Bumex 2 mg twice a day Daily weights, accurate intake and output, and monitoring of kidney function. Repeat BMP in AM. Increase Farxiga to 10mg daily Increase activity as tolerated. Patient to get up into chair this afternoon. Continue telemetry monitoring Further recommendations pending patient course Nurse practitioner note has been reviewed by physician. Signing provider agrees with the documented findings, assessment, and plan of care documented by ASSOCIATION EXECUTIVE as a scribe. Objective - Vital Signs Vital signs: Vital Signs Temp 97.6 F 12/30/23 07:57 Pulse 80 12/30/23 07:57 Resp 20 12/30/23 07:57 BP 100/63 12/30/23 07:57 Pulse Ox 100 12/30/23 07:57 FiO2 Intake & Output 12/29/23 12/30/23 12/30/23 18:59 06:59 18:59 Intake Total 608 10 Output Total 850 650 Balance -242 -650 10 Intake: IV 10 10 Invasive Line 4 10 10 Oral 598 Output: Urine 850 650 Other: Voiding Method External Catheter External Catheter External Catheter - Labs CBC & Chem 7: 12/30/23 08:45 12/30/23 08:45 Labs: Abnormal Lab Results - Last 24 Hours (Table) 12/29/23 12/29/23 12/30/23 Range/Units 09:36 09:36 08:45 Hgb 10.7 L (11.4-16.0) gm/dL Hct (34.0-46.0) % MCHC 29.9 L (31.0-37.0) g/dL RDW 16.8 H (11.5-15.5) % Chloride 95 L 93 L (98-107) mmol/L Carbon Dioxide 40 H 39 H (22-30) mmol/L BUN 22 H 23 H (7-17) mg/dL Creatinine 1.06 H (0.52-1.04) mg/dL Glucose 120 H (74-99) mg/dL Alkaline Phosphatase 134 H (38-126) U/L 12/30/23 Range/Units 08:45 Hgb 9.9 L (11.4-16.0) gm/dL Hct 33.5 L (34.0-46.0) % MCHC 29.4 L (31.0-37.0) g/dL RDW 16.7 H (11.5-15.5) % Chloride (98-107) mmol/L Carbon Dioxide (22-30) mmol/L BUN (7-17) mg/dL Creatinine (0.52-1.04) mg/dL Glucose (74-99) mg/dL Alkaline Phosphatase (38-126) U/L
[2023-12-31] MEDS: DAPAGLIFLOZIN PROPANEDIOL 10 MG TABLET PO SCH (07:52)
[2023-12-31 09:56] LABS: Anisocytosis Slight; Basophils # (A) 0.1 k/uL (0-0.2); Basophils % (A) 1 %; Eosinophils # (A) 0.4 k/uL (0-0.7); Eosinophils % (A) 6 %; HCT 37.6 % (34.0-46.0); Hypochromasia Marked; Lymphocytes # (A) 1.5 k/uL (1.0-4.8); Lymphocytes % (A) 22 %; MCH 25.9 pg (25.0-35.0); MCHC 29.3 g/dL (31.0-37.0); MCV 88.4 fL (80.0-100.0); Mean Platelet Volume 8.1; Monocytes # (A) 0.4 k/uL (0-1.0); Monocytes % (A) 5 %; Neutrophils # (A) 4.3 k/uL (1.3-7.7); Neutrophils % (A) 62 %; Platelet Count 244 k/uL (150-450); RBC 4.26 m/uL (3.80-5.40); RDW 16.9 % (11.5-15.5); WBC 6.9 k/uL (3.8-10.6)
[2023-12-31 10:18] LABS: ALT 13 U/L (4-34); AST 24 U/L (14-36); African American GFR (CKD) 65 (>60 ml/min/1.73 sqM); Alkaline Phosphatase 143 U/L (38-126); Anion Gap 10 mmol/L; Blood Urea Nitrogen 23 mg/dL (7-17); Calcium 9.1 mg/dL (8.4-10.2); Carbon Dioxide 37 mmol/L (22-30); Chloride 91 mmol/L (98-107); Glucose 142 mg/dL (74-99); Non-African American GFR(CKD) 56 (>60 ml/min/1.73 sqM); Sodium 138 mmol/L (137-145); Total Bilirubin 0.6 mg/dL (0.2-1.3); Total Protein 8.1 g/dL (6.3-8.2)
--- NOTE | 2023-12-31 11:24 | P.DS ---
Providers Date of admission: 12/25/23 10:04 Expected date of discharge: 12/31/23 Attending physician: Olya Olson Consults: 12/24/23 08:57 Consult Physician Routine Consulting Provider: Alexx Flores Consult Reason/Comments: chf Do you want consulting provider notified?: Yes Primary care physician: Olya Whitney [facility] Course: discharge diagnosis 1. Increased shortness breath secondary to acute exacerbation of CHF 2. History of systolic congestive heart failure 3. History of valvular heart disease with previous history of mitral valve repa ir and aortic valve replacement 4. History of nonischemic cardiomyopathy 5. History of COPD 6. History of atrial fibrillation 7. History of coronary artery disease with history of coronary artery bypass graft surgery 8. History of partial thyroidectomy 9. History of essential hypertension 10. History of pulmonary hypertension 11. History of osteoarthritis 12. Urinary tract infection. Patient started on IV antibiotic urine culture Hospital course this is an 78-year-old female patient who presented to the emergency room complaining of difficulty breathing that had been increasing over the past few days. Patient has an extensive medical history and frequent admissions. History includes history of fibrillation, heart failure, COPD, GERD, osteoart hritis, rheumatoid arthritis, supraventricular tachycardia, coronary artery is past graft surgery.chest x-ray completed showing overall similar cardiomegaly with interstitial pulmonary edema small left pleural effusion with adjacent atelectasis and/or consolidation. Patient's BNP elevated 1180, troponin negative. White blood cell 8.8. Patient was started on IV Lasix and cardiology service is consulted. current vital signs temp 97.9, heart rate 67, respiratory rate 20, blood pressure 109/61 with a pulse ox 92% on 3 L On 12/24/2023 patient's alert and oriented 3.Patient remains on IV Lasix. Potassium low at 3.4 placed per protocol. Current vital signs temp 97.6, respiratory rate 16 553 with pulse ox 97% on 2 L. Patient denies chest pain or shortness breath. Patient denies nausea vomiting diarrhea. Patient denies any urinary burning or frequency On 12/25/2023 patient was seen and examined on the medical floor, she is alert and oriented 3 in no apparent distress, she is still complaining of shortness of breath with any activity, Otherwise she denies any complaints there is no fever or chills no headache or dizziness no chest pain no cough no nausea or vomiting no abdominal pain no diarrhea and no urinary symptoms, she remains on IV Lasix, cardiology are following On 12/26/2023 patient's alert and oriented 3. Patient resting comfortably in bed. Patient to maintained on IV Lasix per cardiology. Urine culture currently growing gram-negative bacilli will start patient on IV antibiotic. Patient denies chest pain. Patient denies nausea vomiting or diarrhea. Patient denies any urinary burning or frequency on 12/27/2023 patient was seen and examined on the medical floor she is alert and oriented in no apparent distress, she is complaining of shortness of breath with activity otherwise she denies any complaints, there is no fever or chills no headache or dizziness no chest pain no cough, no nausea or vomiting no abdominal pain no diarrhea and no urinary symptoms. patient will be transitioned from IV Lasix to Bumex 2 mg by mouth twice a day, will monitor kidney function closely will follow in a.m.. on 12/29/2023 patient was seen and examined on the medical floor she is alert and oriented 3 in no apparent distress she is resting comfortably in bed she is complaining of shortness of breath with any activity otherwise she denies any complaints there is no fever or chills no headache or dizziness no chest pain no no palpitation no cough no nausea or vomiting no abdominal pain no diarrhea and no urinary symptoms. patient was switched to Bumex 2 milligrams by mouth twice daily, will continue to monitor closely. On 12/29/2022 for patient's alert and oriented 3.PT OT services consulted. Current vital signs HR 80, respiratory rate 20 blood pressure 100/60. 100% on 3 L. patient denies chest pain. Patient denies chest pain. Patient denies nausea vomiting or diarrhea. Patient denies any urinary burning or frequency. on 12/31/2023 patient is alert and oriented 3. Discussed case with cardiology services patient has been cleared for discharge discussed with case management patient to be DC'd to [facility]. Patient will be DC'd on increased dose of Bumex and Giardia. Patient also be DC'd on Ceftin for 3 more days. Patient denies chest pain or shortness of breath. Patient denies nausea vomiting or diarrhea. Patient denies any urinary burning or frequency Patient Condition at Discharge: Stable Plan - Discharge Summary Discharge Rx Participant: No New Discharge Prescriptions: New Bumetanide [BUMEX] 2 mg PO BID 30 Days #120 tab Cefuroxime [Ceftin] 250 mg PO BID 3 Days #6 tab Continue Aspirin 81 mg PO DAILY 30 Days #30 tab Ascorbic Acid [Vitamin C] 500 mg PO DAILY 30 Days #30 tab Cholecalciferol (Vitamin D3) [Vitamin D3 (125 MCG = 5,000 IU)] 125 mcg PO DAILY 30 Days #30 cap Empagliflozin [Jardiance] 10 mg PO DAILY 30 Days #30 tablet HYDROcodone/APAP 10-325MG [[place] 10-325] 1 tab PO Q8H PRN 3 Days #12 tab PRN Reason: Pain Metoprolol Tartrate [Lopressor] 25 mg PO BID 30 Days #60 tab Midodrine [ProAmatine] 5 mg PO AC-TID 30 Days #90 tab Ipratropium-Albuterol Nebulize [Duoneb 0.5 mg-3 mg/3 ml Soln] 3 ml INHALATION RT-Q6H PRN PRN Reason: Shortness Of Breath Levothyroxine Sodium [Synthroid] 150 mcg PO DAILY Discontinued Bumetanide [BUMEX] 1 mg PO DAILY@1600 Bumetanide [BUMEX] 2 mg PO DAILY@0900 Discharge Medication List HYDROcodone/APAP 10-325MG [[place] 10-325] 1 tab PO Q8H PRN 3 Days #12 tab 09/14/23 [Rx] Ascorbic Acid [Vitamin C] 500 mg PO DAILY 30 Days #30 tab 11/05/23 [Rx] Aspirin 81 mg PO DAILY 30 Days #30 tab 11/05/23 [Rx] Cholecalciferol (Vitamin D3) [Vitamin D3 (125 MCG = 5,000 IU)] 125 mcg PO DAILY 30 Days #30 cap 11/05/23 [Rx] Metoprolol Tartrate [Lopressor] 25 mg PO BID 30 Days #60 tab 11/05/23 [Rx] Midodrine [ProAmatine] 5 mg PO AC-TID 30 Days #90 tab 11/05/23 [Rx] Ipratropium-Albuterol Nebulize [Duoneb 0.5 mg-3 mg/3 ml Soln] 3 ml INHALATION RT-Q6H PRN 11/20/23 [History] Levothyroxine Sodium [Synthroid] 150 mcg PO DAILY 11/20/23 [History] Bumetanide [BUMEX] 2 mg PO BID 30 Days #120 tab 12/31/23 [Rx] Cefuroxime [Ceftin] 250 mg PO BID 3 Days #6 tab 12/31/23 [Rx] Empagliflozin [Jardiance] 10 mg PO DAILY 30 Days #30 tablet 12/31/23 [Rx] Follow up Appointment(s)/Referral(s): Olya Olosn MD [Primary Care Provider] - 1-2 days Alexx Flores MD [STAFF PHYSICIAN] - 1 Week Activity/Diet/Wound Care/Special Instructions: Activity as tolerated Diet heart healthy Discharge Disposition: TRANSFER TO SNF/ECF
--- NOTE | 2023-12-31 12:54 | P.PN ---
Subjective HISTORY OF PRESENT ILLNESS: This is an 78-year-old female patient of Dr. Flores with past medical history of persistent atrial fibrillation/flutter recently taken off Coumadin, known EF of 37%, history of mitral valve repair, nonischemic cardiomyopathy, pulmonary hypertension, hypothyroidism, chronic hypoxic respiratory failure on home O2. Patient has had multiple hospitalizations for A-fib with RVR and congestive heart failure and has not been seen in the office since 02/20/2023. Patient presented to the hospital due to shortness of breath. Patient woke up with difficulty in breathing. No chest pain. No lightheadedness or dizziness. Patient has been started on her home medications including Bumex oral and potassium has been replaced. Patient can planes of dysuria. EKG atrial fibrillation 82 bpm Chest x-ray: Similar cardiomegaly with interstitial pulmonary edema. Small left pleural effusion with adjacent atelectasis and/or consolidation. WBC 5.8, hemoglobin 10.5. Sodium 138, potassium 3.4, BUN 18 creatinine 0.97. Alkaline phosphatase 127. Home cardiac medications: Aspirin 81 mg daily, Bumex 1 mg daily, Farxiga 10 mg daily, Lopressor 50 mg twice daily, patient also on levothyroxine 150 mcg daily. Echocardiogram in June 2023 revealed ejection fraction 30-35%, severe pulmonary hypertension, bioprosthetic aortic valve, and mitral valve repair with mild MR Cardiac catheterization history: October 2017 revealing normal coronary arteries Cardioversion 07/05/2022 for atrial flutter with restorationist of sinus rhythm Aortic valve replacement 10/13/2017 with Magna Ease bioprosthetic aortic valve, mitral valve repair with [employer] annular flex band, clip ligation of the left atrial appendage. MATTHEW performed 01/30/2018 revealed sutured left atrial appendage, bioprosthetic aortic valve with normal functioning, mitral annuloplasty with mitral valve repair and mild mitral regurgitation. Moderate tricuspid regurgitation. No evidence of shunting across the intra-atrial septum. 12/24 patient seen and examined. Patient still with similar shortness breath. Has been on Lasix 40 mg IV twice a day and states has been having good urine output. Denies any chest pain or pressure. 12/26 Patient has been maintained on IV Lasix 40 mg twice daily. Blood pressure 95/63, heart rates in the 70s and 80s, pulse ox 100% on 3 L nasal cannula. Repeat blood work reveals a hemoglobin 10.6, BUN 19 creatinine 0.95, potassium 3 .3 12/27 Patient denies any new complaints. She denies shortness of breath today. Yesterday we transition IV Lasix to Bumex oral 2 mg twice daily. Patient has a negative fluid bolus this morning. Blood pressure 100/66, heart rate in the 60s, pulse ox 98% on 3 L nasal cannula. Repeat blood work reveals hemoglobin of 10.4 which is stable. Potassium 3.4 and has been replaced, BUN 21 creatinine 0.92. 12/29/2023 Patient examined this morning at the bedside. Patient currently denies any chest pain or pressure. She reports shortness of breath, although improved from admission. She remains on oral Bumex 2 mg twice a day. Creatinine today 1.06. Telemetry reveals atrial fibrillation with controlled ventricular rate. 12/30/2023 Patient examined this morning at the bedside. Patient denies chest pain or pressure. She continues to report improvement in her shortness of breath. BUN 23. Creatinine 0.96. Repeat proBNP today 4940, which is increased from admission proBNP of 1880. 12/31/2023 Patient examined this morning at the bedside. Patient denies chest pain or pressure. She denies shortness of breath. She remains on oral Bumex. Vital signs are stable. PHYSICAL EXAM: VITAL SIGNS: Reviewed. GENERAL: Well-developed in no acute distress. NECK: Supple. No JVD or thyromegaly LUNGS: Respirations even and unlabored. Lungs diminished. HEART: Irregular rate and rhythm. S1 and S2 heard. Systolic murmur noted. EXTREMITIES: Normal range of motion. No clubbing or cyanosis. Peripheral pulses intact. No lower extremity edema ASSESSMENT: Acute on chronic heart failure with reduced EF Persistent atrial fibrillation, not anticoagulated on an outpatient basis secondary to sutured left atrial appendage Nonischemic cardiomyopathy Valvular heart disease s/p mitral valve repair and aortic valve replacement Severe tricuspid regurgitation Pulmonary hypertension Hypothyroidism Chronic hypoxic respiratory failure on home O2 PLAN: Continue current cardiac medications Continue oral Bumex 2 mg twice a day Patient should be discharged on Jardiance 10mg daily as her insurance does not cover [facility] Patient to be discharged today from a cardiac standpoint Further recommendations pending patient course Nurse practitioner note has been reviewed by physician. Signing provider agrees with the documented findings, assessment, and plan of care documented by GOLD STAMPER as a scribe. Objective - Vital Signs Vital signs: Vital Signs Temp 97.6 F 12/31/23 11:06 Pulse 88 12/31/23 11:06 Resp 16 12/31/23 11:06 BP 103/68 12/31/23 11:06 Pulse Ox 100 12/31/23 11:06 FiO2 Intake & Output 12/30/23 12/31/23 12/31/23 18:59 06:59 18:59 Intake Total 20 236 356 Output Total 750 1000 400 Balance -730 -764 -44 Intake: IV 20 Invasive Line 4 20 Oral 236 356 Output: Urine 750 1000 400 Other: Voiding Method External Catheter External Catheter External Catheter # Bowel Movements 1 - Labs CBC & Chem 7: 12/31/23 09:08 12/31/23 09:08 Labs: Abnormal Lab Results - Last 24 Hours (Table) 12/31/23 12/31/23 Range/Units 09:08 09:08 Hgb 11.0 L (11.4-16.0) gm/dL MCHC 29.3 L (31.0-37.0) g/dL RDW 16.9 H (11.5-15.5) % Chloride 91 L (98-107) mmol/L Carbon Dioxide 37 H (22-30) mmol/L BUN 23 H (7-17) mg/dL Glucose 142 H (74-99) mg/dL Alkaline Phosphatase 143 H (38-126) U/L
[2024-01-01 04:22] VITALS: RESP 16
[2024-01-01 08:38] VITALS: TEMP 98.2
--- NOTE | 2024-01-01 11:20 | P.PN ---
Subjective HISTORY OF PRESENT ILLNESS: This is an 78-year-old female patient of Dr. Flores with past medical history of persistent atrial fibrillation/flutter recently taken off Coumadin, known EF of 37%, history of mitral valve repair, nonischemic cardiomyopathy, pulmonary hypertension, hypothyroidism, chronic hypoxic respiratory failure on home O2. Patient has had multiple hospitalizations for A-fib with RVR and congestive heart failure and has not been seen in the office since 02/20/2023. Patient presented to the hospital due to shortness of breath. Patient woke up with difficulty in breathing. No chest pain. No lightheadedness or dizziness. Patient has been started on her home medications including Bumex oral and potassium has been replaced. Patient can planes of dysuria. EKG atrial fibrillation 82 bpm Chest x-ray: Similar cardiomegaly with interstitial pulmonary edema. Small left pleural effusion with adjacent atelectasis and/or consolidation. WBC 5.8, hemoglobin 10.5. Sodium 138, potassium 3.4, BUN 18 creatinine 0.97. Alkaline phosphatase 127. Home cardiac medications: Aspirin 81 mg daily, Bumex 1 mg daily, Farxiga 10 mg daily, Lopressor 50 mg twice daily, patient also on levothyroxine 150 mcg daily. Echocardiogram in June 2023 revealed ejection fraction 30-35%, severe pulmonary hypertension, bioprosthetic aortic valve, and mitral valve repair with mild MR Cardiac catheterization history: October 2017 revealing normal coronary arteries Cardioversion 07/05/2022 for atrial flutter with zoroastrianism of sinus rhythm Aortic valve replacement 10/13/2017 with Magna Ease bioprosthetic aortic valve, mitral valve repair with [employer] annular flex band, clip ligation of the left atrial appendage. MATTHEW performed 01/30/2018 revealed sutured left atrial appendage, bioprosthetic aortic valve with normal functioning, mitral annuloplasty with mitral valve repair and mild mitral regurgitation. Moderate tricuspid regurgitation. No evidence of shunting across the intra-atrial septum. 12/24 patient seen and examined. Patient still with similar shortness breath. Has been on Lasix 40 mg IV twice a day and states has been having good urine output. Denies any chest pain or pressure. 12/26 Patient has been maintained on IV Lasix 40 mg twice daily. Blood pressure 95/63, heart rates in the 70s and 80s, pulse ox 100% on 3 L nasal cannula. Repeat blood work reveals a hemoglobin 10.6, BUN 19 creatinine 0.95, potassium 3 .3 12/27 Patient denies any new complaints. She denies shortness of breath today. Yesterday we transition IV Lasix to Bumex oral 2 mg twice daily. Patient has a negative fluid bolus this morning. Blood pressure 100/66, heart rate in the 60s, pulse ox 98% on 3 L nasal cannula. Repeat blood work reveals hemoglobin of 10.4 which is stable. Potassium 3.4 and has been replaced, BUN 21 creatinine 0.92. 12/29/2023 Patient examined this morning at the bedside. Patient currently denies any chest pain or pressure. She reports shortness of breath, although improved from admission. She remains on oral Bumex 2 mg twice a day. Creatinine today 1.06. Telemetry reveals atrial fibrillation with controlled ventricular rate. 12/30/2023 Patient examined this morning at the bedside. Patient denies chest pain or pressure. She continues to report improvement in her shortness of breath. BUN 23. Creatinine 0.96. Repeat proBNP today 4940, which is increased from admission proBNP of 1880. 12/31/2023 Patient examined this morning at the bedside. Patient denies chest pain or pressure. She denies shortness of breath. She remains on oral Bumex. Vital signs are stable. 01/01/2024 Patient examined this morning the bedside. Patient denies chest pain or pressure. Patient denies shortness of breath. She remains on oral diuretics. Vital signs are stable. PHYSICAL EXAM: VITAL SIGNS: Reviewed. GENERAL: Well-developed in no acute distress. NECK: Supple. No JVD or thyromegaly LUNGS: Respirations even and unlabored. Lungs diminished. HEART: Irregular rate and rhythm. S1 and S2 heard. Systolic murmur noted. EXTREMITIES: Normal range of motion. No clubbing or cyanosis. Peripheral pulses intact. No lower extremity edema ASSESSMENT: Acute on chronic heart failure with reduced EF Persistent atrial fibrillation, not anticoagulated on an outpatient basis secondary to sutured left atrial appendage Nonischemic cardiomyopathy Valvular heart disease s/p mitral valve repair and aortic valve replacement Severe tricuspid regurgitation Pulmonary hypertension Hypothyroidism Chronic hypoxic respiratory failure on home O2 PLAN: Continue current cardiac medications Continue oral Bumex 2 mg twice a day Patient should be discharged on Jardiance 10mg daily as her insurance does not cover [facility] Patient may be discharged today from a cardiac standpoint Further recommendations pending patient course Nurse practitioner note has been reviewed by physician. Signing provider agrees with the documented findings, assessment, and plan of care documented by WAREHOUSE TECHNICIAN as a scribe. Objective - Vital Signs Vital signs: Vital Signs Temp 98.2 F 01/01/24 08:16 Pulse 84 01/01/24 08:17 Resp 16 01/01/24 08:16 BP 98/67 01/01/24 08:16 Pulse Ox 95 01/01/24 08:53 FiO2 Intake & Output 12/31/23 01/01/24 01/01/24 18:59 06:59 18:59 Intake Total 696 520 Output Total 400 1200 Balance 296 -1200 520 Intake: Oral 696 520 Output: Urine 400 1200 Other: Voiding Method External Catheter External Catheter External Catheter # Bowel Movements 1 - Labs CBC & Chem 7: 12/31/23 09:08 12/31/23 09:08
[2024-01-01 17:18] VITALS: BP 100/54; PULSE 92
--- NOTE | 2024-01-01 18:14 | P.PN ---
Subjective Progress Note Date: 01/01/24 this is an 78-year-old female patient who presented to the emergency room complaining of difficulty breathing that had been increasing over the past few days. Patient has an extensive medical history and frequent admissions. History includes history of fibrillation, heart failure, COPD, GERD, osteoart hritis, rheumatoid arthritis, supraventricular tachycardia, coronary artery is past graft surgery.chest x-ray completed showing overall similar cardiomegaly with interstitial pulmonary edema small left pleural effusion with adjacent atelectasis and/or consolidation. Patient's BNP elevated 1180, troponin negative. White blood cell 8.8. Patient was started on IV Lasix and cardiology service is consulted. current vital signs temp 97.9, heart rate 67, respiratory rate 20, blood pressure 109/61 with a pulse ox 92% on 3 L On 12/24/2023 patient's alert and oriented 3.Patient remains on IV Lasix. Potassium low at 3.4 placed per protocol. Current vital signs temp 97.6, respiratory rate 16 553 with pulse ox 97% on 2 L. Patient denies chest pain or shortness breath. Patient denies nausea vomiting diarrhea. Patient denies any urinary burning or frequency On 12/25/2023 patient was seen and examined on the medical floor, she is alert and oriented 3 in no apparent distress, she is still complaining of shortness of breath with any activity, Otherwise she denies any complaints there is no fever or chills no headache or dizziness no chest pain no cough no nausea or vomiting no abdominal pain no diarrhea and no urinary symptoms, she remains on IV Lasix, cardiology are following On 12/26/2023 patient's alert and oriented 3. Patient resting comfortably in bed. Patient to maintained on IV Lasix per cardiology. Urine culture currently growing gram-negative bacilli will start patient on IV antibiotic. Patient denies chest pain. Patient denies nausea vomiting or diarrhea. Patient denies any urinary burning or frequency on 12/27/2023 patient was seen and examined on the medical floor she is alert and oriented in no apparent distress, she is complaining of shortness of breath with activity otherwise she denies any complaints, there is no fever or chills no headache or dizziness no chest pain no cough, no nausea or vomiting no abdominal pain no diarrhea and no urinary symptoms. patient will be transitioned from IV Lasix to Bumex 2 mg by mouth twice a day, will monitor kidney function closely will follow in a.m.. on 12/27/2022 4 patient's alert and oriented 3.current vital signs temp 97.9, heart rate 60, respiratory rate 20, blood pressure 100/66 with pulse ox 98% on 3 L. At this time patient denies chest pain. Patient denies nausea vomiting or diarrhea. Patient denies any urinary burning or frequency on 12/29/2023 patient was seen and examined on the medical floor she is alert and oriented 3 in no apparent distress she is resting comfortably in bed she is complaining of shortness of breath with any activity otherwise she denies any complaints there is no fever or chills no headache or dizziness no chest pain no no palpitation no cough no nausea or vomiting no abdominal pain no diarrhea and no urinary symptoms. patient was switched to Bumex 2 milligrams by mouth twice daily, will continue to monitor closely. On 12/29/2022 for patient's alert and oriented 3.PT OT services consulted. Current vital signs HR 80, respiratory rate 20 blood pressure 100/60. 100% on 3 L. patient denies chest pain. Patient denies chest pain. Patient denies nausea vomiting or diarrhea. Patient denies any urinary burning or frequency. on 12/31/2023 patient is alert and oriented 3. Discussed case with cardiology services patient has been cleared for discharge discussed with case management patient to be DC'd to [facility]. Patient will be DC'd on increased dose of Bumex. Patient also be DC'd on Ceftin for 3 more days. Patient denies chest pain or shortness of breath. Patient denies nausea vomiting or diarrhea. Patient denies any urinary burning or frequency . on 01/01/2024 patient was seen and examined on the medical floor she is alert and oriented in no apparent distress, she is complaining of shortness of breath with activity otherwise she denies any complaints, there is no fever or chills no headache or dizziness no chest pain no cough, no nausea or vomiting no abdominal pain no diarrhea and no urinary symptoms. patient he is maintained Bumex 2 mg by mouth twice a day, patient has been discharged, awaiting transfer to rehab Objective - Vital Signs Vital signs: Vital Signs Temp 98.2 F 01/01/24 08:16 Pulse 84 01/01/24 08:17 Resp 16 05/02/24 08:16 BP 98/67 01/01/24 08:16 Pulse Ox 95 01/01/24 08:53 FiO2 Intake & Output 12/31/23 01/01/24 01/01/24 18:59 06:59 18:59 Intake Total 696 520 Output Total 400 1200 Balance 296 -1200 520 Intake: Oral 696 520 Output: Urine 400 1200 Other: Voiding Method External Catheter External Catheter External Catheter # Bowel Movements 1 - Exam Head normocephalic Neck supple Lungs clear to auscultation bilaterally no wheezing or crackles Heart regular rate and rhythm S1-S2, no rub or gallop Abdomen is soft nontender nondistended positive bowel sounds no hepatosplenomegaly Extremities no edema Neuro alert and orientated to 3 - Labs CBC & Chem 7: 12/31/23 09:08 12/31/23 09:08 Assessment and Plan Assessment: 1. Increased shortness breath secondary to acute exacerbation of CHF 2. History of systolic congestive heart failure 3. History of valvular heart disease with previous history of mitral valve repair and aortic valve replacement 4. History of nonischemic cardiomyopathy 5. History of COPD 6. History of atrial fibrillation 7. History of coronary artery disease with history of coronary artery bypass graft surgery 8. History of partial thyroidectomy 9. History of essential hypertension 10. History of pulmonary hypertension 11. History of osteoarthritis 12. Urinary tract infection. Patient started on IV antibiotic urine culture At this time patient will be admitted Patient started on IV Lasix Cardiology services consulted DVT prophylaxisHeparin. GI prophylaxis Protonix
== END 2024-01-01 19:20 | DRG 291 ==
LOC: EC 13:24 → 3SCARD 19:58 → OBSVTOIN 12-25 10:04
PROVIDERS: ADMIT Internal Medicine; ATTEND Internal Medicine
DX: I11.0 Hypertensive heart disease with heart failure (principal); I50.23 Acute on chronic systolic (congestive) heart failure; J96.11 Chronic respiratory failure with hypoxia; I48.19 Other persistent atrial fibrillation; I48.92 Unspecified atrial flutter; N39.0 Urinary tract infection, site not specified; I27.20 Pulmonary hypertension, unspecified; I42.8 Other cardiomyopathies; Z99.81 Dependence on supplemental oxygen; J44.9 Chronic obstructive pulmonary disease, unspecified; M06.9 Rheumatoid arthritis, unspecified; I25.10 Atherosclerotic heart disease of native coronary artery without angina pectoris; M19.90 Unspecified osteoarthritis, unspecified site; I07.1 Rheumatic tricuspid insufficiency; E03.9 Hypothyroidism, unspecified; Z96.642 Presence of left artificial hip joint; Z87.891 Personal history of nicotine dependence; Z95.3 Presence of xenogenic heart valve; Z95.1 Presence of aortocoronary bypass graft; Z90.89 Acquired absence of other organs; Z79.890 Hormone replacement therapy; Z79.899 Other long term (current) drug therapy; Z82.49 Family history of ischemic heart disease and other diseases of the circulatory system; Z79.82 Long term (current) use of aspirin; Z79.84 Long term (current) use of oral hypoglycemic drugs; Z88.8 Allergy status to other drugs, medicaments and biological substances
CPT/HCPCS: 36415; 71046; 80053; 81001; 83605; 83735; 83880; 84484; 85025; 85610; 85730; 87077; 87086; 87186; 93005; 94640; 94760; 96374; 99285

== ENCOUNTER 2024-02-03 21:05 | Emergency (ER) | payer MEDICARE, OTHER ==
--- NOTE | 2024-02-03 21:30 | ED ---
Fall HPI - General Chief Complaint: Fall Stated Complaint: Fall Source: EMS Mode of arrival: EMS - History of Present Illness Initial Comments: Mirella is a pleasant 78-year-old female presents ER today via ambulance for evaluation of laceration to the left arm and head injury. Patient states she was walking into her den when the dogs must of knocked over the dog gate in front of her causing her to fall. Patient tripped over the gate hit her left arm on something and hit the back of her head on the ground. She did not lose consciousness. Patient has a laceration to the left forearm and a mild head ache. - Related Data Home Medications Medication Instructions Recorded Confirmed Ipratropium-Albuterol Nebulize 3 ml INHALATION RT-Q6H PRN 11/20/23 12/22/23 [Duoneb 0.5 mg-3 mg/3 ml Soln] Levothyroxine Sodium [Synthroid] 150 mcg PO DAILY 11/20/23 12/22/23 Previous Rx's Medication Instructions Recorded Ascorbic Acid [Vitamin C] 500 mg PO DAILY 30 Days #30 tab 11/05/23 Aspirin 81 mg PO DAILY 30 Days #30 tab 11/05/23 Cholecalciferol (Vitamin D3) 125 mcg PO DAILY 30 Days #30 cap 11/05/23 [Vitamin D3 (125 MCG = 5,000 IU)] Metoprolol Tartrate [Lopressor] 25 mg PO BID 30 Days #60 tab 11/05/23 Midodrine [ProAmatine] 5 mg PO AC-TID 30 Days #90 tab 11/05/23 Bumetanide [BUMEX] 2 mg PO BID 30 Days #120 tab 12/31/23 Cefuroxime [Ceftin] 250 mg PO BID 3 Days #6 tab 12/31/23 Empagliflozin [Jardiance] 10 mg PO DAILY 30 Days #30 tablet 12/31/23 HYDROcodone/APAP 10-325MG [[place] 1 tab PO Q8H PRN 3 Days #12 tab 12/31/23 10-325] Allergies Allergy/AdvReac Type Severity Reaction Status Date / Time lisinopril AdvReac Cough Verified 12/22/23 16:18 Review of Systems ROS Statement: Those systems with pertinent positive or pertinent negative responses have been documented in the HPI. ROS Other: All systems not noted in ROS Statement are negative. Past Medical History Past Medical History: Atrial Fibrillation, Heart Failure, COPD, GERD/Reflux, Osteoarthritis (OA), Renal Disease, Rheumatoid Arthritis (RA), Supraventricular Tachycardia (SVT), Thyroid Disorder Additional Past Medical History / Comment(s): Valvular heart disease with pre vious aortic valve replacement and a mitral valve repair, congestion heart failure, Paroxysmal Afib, history of SVT, history of nonsustained VT, SOB with exertion, home O2 at 2L/NC usually prn but lately ATC, arthritis, RA several joints, current L elbow pain/swelling-had "injection", nephrolithiasis, hypothyroid, diverticular dx, UTI, iron deficiency anemia. 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 History of Any Multi-Drug Resistant Organisms: None Reported Past Surgical History: Coronary Bypass/CABG, Heart Catheterization, Hysterectomy , Joint Replacement, Orthopedic Surgery Additional Past Surgical History / Comment(s): Geoff total knees arthroplasty,lt hip arthroplasty, goiter removed 1962, partial thyroidectomy, cataracts removed with lens implants, REVERSE TOTAL RIGHT SHOULDER; Rotator cuff R shoulder, c ervical fusion/injections, colonoscopy 2016(next after 5yr), MATTHEW, valve surgery at [facility] 10/13/17 Prosthetic Aortic valve and mitral valve repair. Total abdominal hysterectomy in the 1980s. Past Anesthesia/Blood Transfusion Reactions: Postoperative Nausea & Vomiting (PONV) Past Psychological History: No Psychological Hx Reported Smoking Status: Never smoker - Past Family History Father Family Medical History: Cancer, Myocardial Infarction ([place]) Additional Family Medical History / Comment(s): in his 80's of a mi. Colon cancer. Mother Family Medical History: No Reported History Additional Family Medical History / Comment(s): age 88 . hx smoking. Daughter(s) Family Medical History: Cancer Additional Family Medical History / Comment(s): from vulvar cancer. General Exam - General Exam Comments Initial Comments: Physical Exam GENERAL: Elderly chronically ill-appearing, oxygen dependent female no acute distress HENT: Normocephalic No obvious signs of head injury EYES: PERRL, EOMI PULMONARY: Unlabored respirations. CARDIOVASCULAR: RRR ABDOMEN: Non-distended SKIN: Laceration in the left forearm, no active bleeding : Deferred NEUROLOGIC: Alert and oriented MUSCULOSKELETAL: Moving all extremities with no apparent injury PSYCHIATRIC: No SI/HI Course Vital Signs 02/03/24 02/03/24 02/04/24 21:09 23:26 01:05 Temperature 98.3 F Pulse Rate 96 90 88 Respiratory 18 20 20 Rate Blood Pressure 94/75 102/86 103/72 O2 Sat by Pulse 98 97 98 Oximetry Procedures - Laceration Laceration #1 Consent Obtained: verbal consent Indication: laceration Description: flap Depth: simple, single layer Pre-repair: wound explored, irrigated extensively Type of Sutures: nylon Size of Sutures: 4-0 Number of Sutures: 3 Technique: simple, interrupted Complications: pain Patient Tolerated Procedure: well Medical Decision Making - Medical Decision Making Was pt. sent in by a medical professional or institution (, PA, RETURNED GOODS INSPECTOR, urgent care, hospital, or fci...) When possible be specific @ -No Did you speak to anyone other than the patient for history (EMS, parent, family, police, friend...)? What history was obtained from this source @ -EMS Did you review nursing and triage notes (agree or disagree)? Why? @ -I reviewed and agree with nursing and triage notes Were old charts reviewed (outside hosp., previous admission, EMS record, old EKG, old radiological studies, urgent care reports/EKG's, fci records)? Report findings @ -No old charts were reviewed Differential Diagnosis (chest pain, altered mental status, abdominal pain women, abdominal pain men, vaginal bleeding, weakness, fever, dyspnea, syncope, headache, dizziness, GI bleed, back pain, seizure, CVA, palpatations, mental health)? @ -Not applicable EKG interpreted by me (3pts min.). @ -As above X-rays interpreted by me (1pt min.). @ -None done CT interpreted by me (1pt min.). @ -None done U/S interpreted by me (1pt. min.). @ -None done What testing was considered but not performed or refused? (CT, X-rays, U/S, labs)? Why? @ -None What meds were considered but not given or refused? Why? @ -None Did you discuss the management of the patient with other professionals (professionals i.e. , PA, RETURNED GOODS INSPECTOR, lab, RT, psych nurse, executive secretary social welfare, material hauler, teacher, accounting officer, mattress spring encaser)? Give summary @ -No Was smoking cessation discussed for >3mins.? @ -No Was critical care preformed (if so, how long)? @ -No Were there social determinants of health that impacted care today? How? (Homelessness, low income, unemployed, alcoholism, drug addiction, transportation, low edu. Level, literacy, decrease access to med. care, fdc, rehab)? @ -No Was there de-escalation of care discussed even if they declined (Discuss DNR or withdrawal of care, Hospice)? DNR status @ -No What co-morbidities impacted this encounter? (DM, HTN, Smoking, COPD, CAD, Cancer, CVA, ARF, Chemo, Hep., AIDS, mental health diagnosis, sleep apnea, morbid obesity)? @ -None Was patient admitted / discharged? Hospital course, mention meds given and route, prescriptions, significant lab abnormalities, going to OR and other pertinent info. @ -Discharged The patient was seen and evaluated, history was obtained from the patient. Physical exam is remarkable first skin tear to the left forearm that is deep i nvolving the subcutaneous fat. No other obvious injuries. Trauma workup was initiated imaging was obtained there is no cervical spine or intracranial injuries. X-rays were otherwise negative. Patient's tetanus was updated and patient's laceration was repaired. At this time patient is stable for discharge home, patient currently does not have a ride home but will contact her in the morning. Undiagnosed new problem with uncertain prognosis? @ -No Drug Therapy requiring intensive monitoring for toxicity (Heparin, Nitro, Insulin, Cardizem)? @ -No Were any procedures done? @ -Laceration repair Diagnosis/symptom? @ -Fall at home, laceration to forearm Acute, or Chronic, or Acute on Chronic? @ -Acute Uncomplicated (without systemic symptoms) or Complicated (systemic symptoms)? @ -Default Side effects of treatment? @ -No Exacerbation, Progression, or Severe Exacerbation? @ -No Poses a threat to life or bodily function? How? (Chest pain, [place], [place], pneumonia, PE, COPD, DKA, ARF, appy, cholecystitis, CVA, Diverticulitis, Homicidal, Suicidal, threat to staff... and all critical care pts) @ -Unlikely - Lab Data Result diagrams: 02/03/24 22:33 02/03/24 22:33 Lab Results 02/03/24 02/03/24 02/03/24 Range/Units 22:33 22:33 22:33 WBC 9.3 (3.8-10.6) k/uL RBC 4.35 (3.80-5.40) m/uL Hgb 11.7 (11.4-16.0) gm/dL Hct 38.0 (34.0-46.0) % MCV 87.5 (80.0-100.0) fL MCH 26.9 (25.0-35.0) pg MCHC 30.7 L (31.0-37.0) g/dL RDW 16.5 H (11.5-15.5) % Plt Count 234 (150-450) k/uL MPV 7.8 Neutrophils % 74 % Lymphocytes % 16 % Monocytes % 5 % Eosinophils % 3 % Basophils % 1 % Neutrophils # 6.8 (1.3-7.7) k/uL Lymphocytes # 1.4 (1.0-4.8) k/uL Monocytes # 0.5 (0-1.0) k/uL Eosinophils # 0.3 (0-0.7) k/uL Basophils # 0.1 (0-0.2) k/uL Hypochromasia Moderate Anisocytosis Slight PT 11.2 (10.0-12.5) sec INR 1.0 (<1.2) APTT 22.0 (22.0-30.0) sec Sodium 141 (137-145) mmol/L Potassium 3.5 (3.5-5.1) mmol/L Chloride 101 (98-107) mmol/L Carbon Dioxide 33 H (22-30) mmol/L Anion Gap 7 mmol/L BUN 15 (7-17) mg/dL Creatinine 0.68 (0.52-1.04) mg/dL Est GFR (CKD-EPI)AfAm >90 (>60 ml/min/1.73 sqM) Est GFR (CKD-EPI)NonAf 83 (>60 ml/min/1.73 sqM) Glucose 107 H (74-99) mg/dL Calcium 9.3 (8.4-10.2) mg/dL Total Bilirubin 1.1 (0.2-1.3) mg/dL AST 44 H (14-36) U/L ALT 18 (4-34) U/L Alkaline Phosphatase 143 H (38-126) U/L Total Protein 8.0 (6.3-8.2) g/dL Albumin 4.2 (3.5-5.0) g/dL Disposition Clinical Impression: Fall, Forearm laceration Disposition: HOME SELF-CARE Condition: Stable Instructions (If sedation given, give patient instructions): Fall Prevention for Older Adults (ED) Is patient prescribed a controlled substance at d/c from ED?: No Referrals: Olya Olson MD [Primary Care Provider] - 1-2 days
--- NOTE | 2024-02-03 22:30 | XR ---
EXAMINATION TYPE: XR pelvis AP view DATE OF EXAM: 02/03/2024 CLINICAL HISTORY: Trauma. Fall. TECHNIQUE: A single AP view of the pelvis is obtained. COMPARISON: CT abdomen and pelvis 2014. FINDINGS: Surgical change of bilateral hips is present. Evaluation is suboptimal due to lucency from overlying bowel gas and demineralization of osseous structures along with overlying catheter. No acut e displaced fracture in the pelvis. Pubic symphysis is intact. IMPRESSION: There is no acute displaced fracture in the pelvis.
--- NOTE | 2024-02-03 22:31 | XR ---
EXAMINATION TYPE: XR chest 1V portable DATE OF EXAM: 02/03/2024 COMPARISON: Prior chest x-ray December 22, 2023 HISTORY: Trauma. Fall. TECHNIQUE: Single frontal view of the chest is obtained. FINDINGS: Persistent cardiomegaly with metallic aortic valve and left atrial appendage clip. Overlyi ng sternal wires are present. Persistent central vascular congestion along with small left pleural ef fusion and bibasilar opacities. Surgical change right shoulder is redemonstrated. IMPRESSION: Cardiomegaly with central vascular congestion and small left greater than right bilatera l pleural effusions. Findings suggest CHF exacerbation/fluid overload state. Correlate clinically. Ad ditional left basilar opacity could reflect acute infiltrate and/or atelectasis.
[2024-02-03] MEDS: DIPH,PERTUS(ACELL)TETVAC-LF 0.5 ML VIAL IM ONE (22:33)
[2024-02-03] MEDS: LIDOCAINE 1% INJ 10MG/ML (20 ML MDV) SQ ONE (22:34)
[2024-02-03 22:40] LABS: Anisocytosis Slight; Basophils # (A) 0.1 k/uL (0-0.2); Basophils % (A) 1 %; Eosinophils # (A) 0.3 k/uL (0-0.7); Eosinophils % (A) 3 %; HGB 11.7 gm/dL (11.4-16.0); Hypochromasia Moderate; Lymphocytes # (A) 1.4 k/uL (1.0-4.8); Lymphocytes % (A) 16 %; MCH 26.9 pg (25.0-35.0); MCHC 30.7 g/dL (31.0-37.0); MCV 87.5 fL (80.0-100.0); Mean Platelet Volume 7.8; Monocytes # (A) 0.5 k/uL (0-1.0); Monocytes % (A) 5 %; Neutrophils # (A) 6.8 k/uL (1.3-7.7); Neutrophils % (A) 74 %; Platelet Count 234 k/uL (150-450); RBC 4.35 m/uL (3.80-5.40); RDW 16.5 % (11.5-15.5); WBC 9.3 k/uL (3.8-10.6)
[2024-02-03 22:49] LABS: ALT 18 U/L (4-34); AST 44 U/L (14-36); African American GFR (CKD) >90 (>60 ml/min/1.73 sqM); Albumin 4.2 g/dL (3.5-5.0); Alkaline Phosphatase 143 U/L (38-126); Anion Gap 7 mmol/L; Blood Urea Nitrogen 15 mg/dL (7-17); Calcium 9.3 mg/dL (8.4-10.2); Carbon Dioxide 33 mmol/L (22-30); Chloride 101 mmol/L (98-107); Glucose 107 mg/dL (74-99); Non-African American GFR(CKD) 83 (>60 ml/min/1.73 sqM); Sodium 141 mmol/L (137-145); Total Bilirubin 1.1 mg/dL (0.2-1.3)
[2024-02-03 22:58] LABS: Potassium 3.5 mmol/L (3.5-5.1)
[2024-02-03 22:59] LABS: Prothrombin Time 11.2 sec (10.0-12.5)
--- NOTE | 2024-02-03 23:27 | CT ---
EXAMINATION TYPE: CT brain cspine wo con DATE OF EXAM: 02/03/2024 COMPARISON: Trauma CT Trauma very 15 2023 HISTORY: Pt from home. Pt fell to knee and a gate fell on pt. Pt has skin tear on L elbow. Pt hit jenelle k of head on floor. Pt is on thinners. No LOC. CT DLP: 1308.5 mGycm. Automated Exposure Control for Dose Reduction was Utilized. TECHNIQUE: CT scan of the head and cervical spine are performed without contrast. FINDINGS: There is no acute intracranial hemorrhage or midline shift identified. Moderate ventricul ar and sulcal prominence redemonstrated. Mild to moderate low attenuation in the periventricular whit e matter again seen. The calvarium is intact. Cervical spine is visualized in its entirety from C1 through upper thoracic levels and redemonstrates surgical change at the skull base extending into the posterior elements of the upper to mid cervical spine. Posterior decompression changes upper cervical spine redemonstrated. Loss of normal cervical curvature is present. Grade 1 retrolisthesis C4 on C5 and C5 on C6 is again seen. Grade 1 anterolist hesis C6 on C7. No acute displaced fracture. Multilevel uncovertebral facet degenerative changes are redemonstrated. Lung apices show emphysematous change without pneumothorax. IMPRESSION: 1. There is no acute fracture or dislocation evident in the cervical spine. 2. No acute intracranial hemorrhage or midline shift is seen.
[2024-02-04 12:03] VITALS: BP 104/68; PULSE 74; RESP 18; TEMP 98.2
== END 2024-02-04 12:03 | disposition home or self-care (01) ==
LOC: EC 21:05
DX: S51.812A Laceration without foreign body of left forearm, initial encounter (principal); S51.012A Laceration without foreign body of left elbow, initial encounter; Z88.8 Allergy status to other drugs, medicaments and biological substances; Z95.1 Presence of aortocoronary bypass graft; Z95.2 Presence of prosthetic heart valve; Z23 Encounter for immunization; W01.0XXA Fall on same level from slipping, tripping and stumbling without subsequent striking against object, initial encounter; Y93.01 Activity, walking, marching and hiking
CPT/HCPCS: 36415; 80053; 85025; 85610; 85730; 72170; 71045; 72125; 70450; 90715; 99285; 90471; 12001; J2001

== ENCOUNTER 2024-02-11 03:45 | Inpatient (IN) | payer MEDICARE, OTHER ==
--- NOTE | 2024-02-11 04:28 | ED ---
General Adult HPI - General Chief complaint: Fall Stated complaint: Back pain Time Seen by Provider: 02/11/24 03:47 Source: EMS Mode of arrival: EMS - History of Present Illness Initial comments: Dictation was produced using Delectable dictation software. please excuse any grammatical, word or spelling errors. Chief Complaint: 78-year-old female presents to the emergency department with back pain History of Present Illness: Patient is an 78-year-old female has multiple comorbidities including A-fib, heart failure COPD. Patient states that she fell hurting her back 2 days ago. She denies any head injury or loss of consciousness. 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 She does not really remember how she fell. Patient states that her whole back hurts. Denies any saddle anesthesia. Pain is nonradiating. The ROS documented in this emergency department record has been reviewed and confirmed by me. Those systems with pertinent positive or negative responses have been documented in the HPI. All other systems are other negative and/or noncontributory. - Related Data Home Medications Medication Instructions Recorded Confirmed Ipratropium-Albuterol Nebulize 3 ml INHALATION RT-Q6H PRN 11/20/23 12/22/23 [Duoneb 0.5 mg-3 mg/3 ml Soln] Levothyroxine Sodium [Synthroid] 150 mcg PO DAILY 11/20/23 12/22/23 Previous Rx's Medication Instructions Recorded Ascorbic Acid [Vitamin C] 500 mg PO DAILY 30 Days #30 tab 11/05/23 Aspirin 81 mg PO DAILY 30 Days #30 tab 11/05/23 Cholecalciferol (Vitamin D3) 125 mcg PO DAILY 30 Days #30 cap 11/05/23 [Vitamin D3 (125 MCG = 5,000 IU)] Metoprolol Tartrate [Lopressor] 25 mg PO BID 30 Days #60 tab 11/05/23 Midodrine [ProAmatine] 5 mg PO AC-TID 30 Days #90 tab 11/05/23 Bumetanide [BUMEX] 2 mg PO BID 30 Days #120 tab 12/31/23 Cefuroxime [Ceftin] 250 mg PO BID 3 Days #6 tab 12/31/23 Empagliflozin [Jardiance] 10 mg PO DAILY 30 Days #30 tablet 12/31/23 HYDROcodone/APAP 10-325MG [Daphne 1 tab PO Q8H PRN 3 Days #12 tab 12/31/23 10-325] Allergies Allergy/AdvReac Type Severity Reaction Status Date / Time lisinopril AdvReac Cough Verified 02/11/24 03:57 Review of Systems ROS Statement: Those systems with pertinent positive or pertinent negative responses have been documented in the HPI. ROS Other: All systems not noted in ROS Statement are negative. Past Medical History Past Medical History: Atrial Fibrillation, Heart Failure, COPD, GERD/Reflux, Osteoarthritis (OA), Renal Disease, Rheumatoid Arthritis (RA), Supraventricular Tachycardia (SVT), Thyroid Disorder Additional Past Medical History / Comment(s): Valvular heart disease with previous aortic valve replacement and a mitral valve repair, congestion heart failure, Paroxysmal Afib, history of SVT, history of nonsustained VT, SOB with exertion, home O2 at 2L/NC usually prn but lately ATC, arthritis, RA several joints, current L elbow pain/swelling-had "injection", nephrolithiasis, hypothyroid, diverticular dx, UTI, iron deficiency anemia. 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 History of Any Multi-Drug Resistant Organisms: None Reported Past Surgical History: Coronary Bypass/CABG, Heart Catheterization, Hysterectomy, Joint Replacement, Orthopedic Surgery Additional Past Surgical History / Comment(s): Geoff total knees arthroplasty,lt hip arthroplasty, goiter removed 1962, partial thyroidectomy, cataracts removed with lens implants, REVERSE TOTAL RIGHT SHOULDER; Rotator cuff R shoulder, cervical fusion/injections, colonoscopy 2016(next after 5yr), MATTHEW, valve surgery at [facility] 10/13/17 Prosthetic Aortic valve and mitral valve repair. Total abdominal hysterectomy in the 1980s. Past Anesthesia/Blood Transfusion Reactions: Postoperative Nausea & Vomiting (PONV) Past Psychological History: No Psychological Hx Reported Smoking Status: Never smoker Past Alcohol Use History: Rare Past Drug Use History: None Reported - Past Family History Father Family Medical History: Cancer, Myocardial Infarction ([place]) Additional Family Medical History / Comment(s): in his 80's of a mi. Colon cancer. Mother Family Medical History: No Reported History Additional Family Medical History / Comment(s): age 88 . hx smoking. Daughter(s) Family Medical History: Cancer Additional Family Medical History / Comment(s): from vulvar cancer. General Exam - General Exam Comments Initial Comments: PHYSICAL EXAM: General Impression: Alert and oriented x3, not in acute distress, smells of urine HEENT: Normocephalic atraumatic, extra-ocular movements intact, pupils equal and reactive to light bilaterally, mucous membranes moist. Cardiovascular: Heart regular rate and rhythm Chest: Able to complete full sentences, no retractions, no tachypnea Abdomen: abdomen soft, non-tender, non-distended, no organomegaly Musculoskeletal: Pulses present and equal in all extremities, no peripheral edema, palpatory tenderness along the lower thoracic and lumbar spine Motor: no focal deficits noted Neurological: CN II-XII grossly intact, no focal motor or sensory deficits noted Skin: Intact with no visualized rashes Psych: Normal affect and mood Course Vital Signs 02/11/24 02/11/24 02/11/24 03:47 04:15 05:30 Temperature 97.8 F Pulse Rate 131 H 126 H 108 H Respiratory 18 18 18 Rate Blood Pressure 113/82 83/47 97/62 O2 Sat by Pulse 97 97 97 Oximetry 02/11/24 06:00 Temperature Pulse Rate 104 H Respiratory 18 Rate Blood Pressure 97/60 O2 Sat by Pulse 99 Oximetry EKG Findings - EKG Comments: EKG Findings:: My EKG interpretation: Ventricular rate 118, A-fib with RVR, QRS 71, QTc 420. No AL prolongation, no QTC prolongation, no ST or T-wave changes noted. Overall, this EKG is unremarkable Medical Decision Making - Medical Decision Making Was pt. sent in by a medical professional or institution (, PA, OCCUPATIONAL THERAPY SUPERVISOR, urgent care, hospital, or [facility]...) When possible be specific @ -No Did you speak to anyone other than the patient for history (EMS, parent, family, police, friend...)? What history was obtained from this source @ -No Did you review nursing and triage notes (agree or disagree)? Why? @ -I reviewed and agree with nursing and triage notes Were old charts reviewed (outside hosp., previous admission, EMS record, old EKG, old radiological studies, urgent care reports/EKG's, [facility] records)? Report findings @ -No old charts were reviewed Differential Diagnosis (chest pain, altered mental status, abdominal pain women, abdominal pain men, vaginal bleeding, musculoskeletal, weakness, fever, dyspnea, syncope, headache, dizziness, GI bleed, back pain, seizure, CVA, palpatations, mental health)? @ -Differential Back Pain: Strain, zoster, cauda equina syndrome, epidural abscess, vertebral osteomyelitis, discitis, fracture, subluxation, disc herniation, DJD, spinal stenosis, dissection, AAA, pancreatitis, peptic ulcer disease, pyelonephritis, kidney stone, this is not meant to be an all-inclusive list. EKG interpreted by me (3pts min.). @ -See above X-rays interpreted by me (1pt min.). @ -Chest x-ray is nonacute CT interpreted by me (1pt min.). @ -None done U/S interpreted by me (1pt. min.). @ -None done What testing was considered but not performed or refused? (CT, X-rays, U/S, labs)? Why? @ -None What meds were considered but not given or refused? Why? @ -None Did you discuss the management of the patient with other professionals (professionals i.e. , PA, OCCUPATIONAL THERAPY SUPERVISOR, lab, RT, psych nurse, manager social responsibility, roving marker, teacher, retail loss prevention officer, case management specialist)? Give summary @ -Case discussed with hospitalist for admission Was smoking cessation discussed for >3mins.? @ -No Was critical care preformed (if so, how long)? @ -No Were there social determinants of health that impacted care today? How? (Homelessness, low income, unemployed, alcoholism, drug addiction, transportation, low edu. Level, literacy, decrease access to med. care, senior care, rehab)? @ -No Was there de-escalation of care discussed even if they declined (Discuss DNR or withdrawal of care, Hospice)? DNR status @ -No What co-morbidities impacted this encounter? (DM, HTN, Smoking, COPD, CAD, Cancer, CVA, ARF, Chemo, Hep., AIDS, mental health diagnosis, sleep apnea, morbid obesity)? @ -None Was patient admitted / discharged? Hospital course, mention meds given and route, prescriptions, significant lab abnormalities, going to OR and other pertinent info. @ -78-year-old female presents emergency department for fall. Patient not a gr eat historian. She however appears to have worsening debility. She lives at home with her . She does not know how she fell. Patient has soft blood pressure and tachycardic upon arrival she has history of A-fib. Patient's primary complaint is back pain. CT imaging is negative. Laboratory evaluation obtained. CBC, metabolic panel within acceptable limits. Urinalysis positive for urinary tract infection. Patient will be admitted given Rocephin. Undiagnosed new problem with uncertain prognosis? @ -No Drug Therapy requiring intensive monitoring for toxicity (Heparin, Nitro, Insuli n, Cardizem)? @ -No Were any procedures done? @ -No Diagnosis/symptom? Acute, or Chronic, or Acute on Chronic? Uncomplicated (without systemic symptoms) or Complicated (systemic symptoms)? @ -Urinary tract infection Side effects of treatment? @ -No Exacerbation, Progression, or Severe Exacerbation? @ -No Poses a threat to life or bodily function? How? (Chest pain, [place], [place], pneumonia, PE, COPD, DKA, ARF, appy, cholecystitis, CVA, Diverticulitis, Homicidal, Suicidal, threat to staff... and all critical care pts) @ -yes - Lab Data Result diagrams: 02/11/24 04:21 02/11/24 04:21 Lab Results 02/11/24 02/11/24 02/11/24 Range/Units 04:21 04:21 04:21 WBC 7.4 (3.8-10.6) k/uL RBC 4.28 (3.80-5.40) m/uL Hgb 11.6 (11.4-16.0) gm/dL Hct 36.1 (34.0-46.0) % MCV 84.4 (80.0-100.0) fL MCH 27.1 (25.0-35.0) pg MCHC 32.1 (31.0-37.0) g/dL RDW 16.4 H (11.5-15.5) % Plt Count 258 (150-450) k/uL MPV 8.4 Neutrophils % 65 % Lymphocytes % 20 % Monocytes % 7 % Eosinophils % 4 % Basophils % 1 % Neutrophils # 4.8 (1.3-7.7) k/uL Lymphocytes # 1.5 (1.0-4.8) k/uL Monocytes # 0.5 (0-1.0) k/uL Eosinophils # 0.3 (0-0.7) k/uL Basophils # 0.0 (0-0.2) k/uL Hypochromasia Slight Anisocytosis Slight PT 11.2 (10.0-12.5) sec INR 1.0 (<1.2) APTT 24.8 (22.0-30.0) sec Sodium 135 L (137-145) mmol/L Potassium 3.7 (3.5-5.1) mmol/L Chloride 100 (98-107) mmol/L Carbon Dioxide 29 (22-30) mmol/L Anion Gap 6 mmol/L BUN 13 (7-17) mg/dL Creatinine 0.64 (0.52-1.04) mg/dL Est GFR (CKD-EPI)AfAm >90 (>60 ml/min/1.73 sqM) Est GFR (CKD-EPI)NonAf 85 (>60 ml/min/1.73 sqM) Glucose 108 H (74-99) mg/dL Calcium 8.9 (8.4-10.2) mg/dL Magnesium 1.9 (1.6-2.3) mg/dL Troponin I (0.000-0.034) ng/mL Urine Color Urine Appearance (Clear) Urine pH (5.0-8.0) Ur Specific [place] (1.001-1.035) Urine Protein (Negative) Urine Glucose (UA) (Negative) Urine Ketones (Negative) Urine Blood (Negative) Urine Nitrite (Negative) Urine Bilirubin (Negative) Urine Urobilinogen (<2.0) mg/dL Ur Leukocyte Esterase (Negative) Urine WBC (0-5) /hpf Ur Squamous Epith Cells (0-4) /hpf Amorphous Sediment (None) /hpf Urine Bacteria (None) /hpf Urine Mucus (None) /hpf 02/11/24 02/11/24 Range/Units 04:21 06:30 WBC (3.8-10.6) k/uL RBC (3.80-5.40) m/uL Hgb (11.4-16.0) gm/dL Hct (34.0-46.0) % MCV (80.0-100.0) fL MCH (25.0-35.0) pg MCHC (31.0-37.0) g/dL RDW (11.5-15.5) % Plt Count (150-450) k/uL MPV Neutrophils % % Lymphocytes % % Monocytes % % Eosinophils % % Basophils % % Neutrophils # (1.3-7.7) k/uL Lymphocytes # (1.0-4.8) k/uL Monocytes # (0-1.0) k/uL Eosinophils # (0-0.7) k/uL Basophils # (0-0.2) k/uL Hypochromasia Anisocytosis PT (10.0-12.5) sec INR (<1.2) APTT (22.0-30.0) sec Sodium (137-145) mmol/L Potassium (3.5-5.1) mmol/L Chloride (98-107) mmol/L Carbon Dioxide (22-30) mmol/L Anion Gap mmol/L BUN (7-17) mg/dL Creatinine (0.52-1.04) mg/dL Est GFR (CKD-EPI)AfAm (>60 ml/min/1.73 sqM) Est GFR (CKD-EPI)NonAf (>60 ml/min/1.73 sqM) Glucose (74-99) mg/dL Calcium (8.4-10.2) mg/dL Magnesium (1.6-2.3) mg/dL Troponin I <0.012 (0.000-0.034) ng/mL Urine Color Yellow Urine Appearance Cloudy H (Clear) Urine pH 6.5 (5.0-8.0) Ur Specific [place] 1.015 (1.001-1.035) Urine Protein 1+ H (Negative) Urine Glucose (UA) Negative (Negative) Urine Ketones Negative (Negative) Urine Blood Moderate H (Negative) Urine Nitrite Negative (Negative) Urine Bilirubin Negative (Negative) Urine Urobilinogen 4.0 (<2.0) mg/dL Ur Leukocyte Esterase Moderate H (Negative) Urine WBC 61 H (0-5) /hpf Ur Squamous Epith Cells 4 (0-4) /hpf Amorphous Sediment Rare H (None) /hpf Urine Bacteria Many H (None) /hpf Urine Mucus Occasional H (None) /hpf Disposition Clinical Impression: UTI (urinary tract infection) Disposition: ADMITTED IP TO THIS [facility] Condition: Fair Referrals: Olya Olson MD [Primary Care Provider] - 1-2 days Decision Time: 06:59
[2024-02-11] MEDS: SODIUM CHLORIDE 0.9% 1,000 ML IV STA (04:39)
[2024-02-11 04:43] LABS: African American GFR (CKD) >90 (>60 ml/min/1.73 sqM); Anion Gap 6 mmol/L; Blood Urea Nitrogen 13 mg/dL (7-17); Calcium 8.9 mg/dL (8.4-10.2); Carbon Dioxide 29 mmol/L (22-30); Chloride 100 mmol/L (98-107); Glucose 108 mg/dL (74-99); Magnesium 1.9 mg/dL (1.6-2.3); Non-African American GFR(CKD) 85 (>60 ml/min/1.73 sqM); Potassium 3.7 mmol/L (3.5-5.1); Sodium 135 mmol/L (137-145)
[2024-02-11 04:53] LABS: Anisocytosis Slight; Basophils % (A) 1 %; Eosinophils # (A) 0.3 k/uL (0-0.7); Eosinophils % (A) 4 %; HCT 36.1 % (34.0-46.0); HGB 11.6 gm/dL (11.4-16.0); Hypochromasia Slight; Lymphocytes # (A) 1.5 k/uL (1.0-4.8); Lymphocytes % (A) 20 %; MCH 27.1 pg (25.0-35.0); MCHC 32.1 g/dL (31.0-37.0); MCV 84.4 fL (80.0-100.0); Mean Platelet Volume 8.4; Monocytes # (A) 0.5 k/uL (0-1.0); Monocytes % (A) 7 %; Neutrophils # (A) 4.8 k/uL (1.3-7.7); Neutrophils % (A) 65 %; Platelet Count 258 k/uL (150-450); RBC 4.28 m/uL (3.80-5.40); RDW 16.4 % (11.5-15.5); WBC 7.4 k/uL (3.8-10.6)
[2024-02-11 04:58] LABS: Partial Thromboplastin Time 24.8 sec (22.0-30.0); Prothrombin Time 11.2 sec (10.0-12.5)
--- NOTE | 2024-02-11 05:52 | XR ---
EXAMINATION TYPE: XR chest 1V portable DATE OF EXAM: 02/11/2024 COMPARISON: Chest x-ray February 03, 2024 HISTORY: Fall TECHNIQUE: Single frontal view of the chest is obtained. FINDINGS: Osseous structures are demineralized. Surgical change to right shoulder redemonstrated. Ov erlying sternal wires and left atrial appendage clip are redemonstrated. Persistent cardiomegaly with chronic parenchymal changes bilaterally and perhaps mild central vascular congestion. IMPRESSION: Cardiomegaly with perhaps mild central vascular congestion redemonstrated. Correlate for continued CHF exacerbation.
--- NOTE | 2024-02-11 05:56 | CT ---
EXAMINATION TYPE: CT brain bertrand hendricks con DATE OF EXAM: 02/11/2024 COMPARISON: Prior trauma CT 8 days earlier HISTORY: Patient is coming to facility with complaints of lower back pain. Patient had a fall 2 days ago, no LOC, no head injury. CT DLP: 1230.4 mGycm. Automated Exposure Control for Dose Reduction was Utilized. TECHNIQUE: CT scan of the head and cervical spine are performed without contrast. FINDINGS: There is no acute intracranial hemorrhage or midline shift identified. Moderate ventricul ar and sulcal prominence redemonstrated. Ventricular dilatation remains slightly out of proportion to degree of sulcal effacement raising concern for underlying normal pressure hydrocephalus. Mild to mo derate low attenuation in the periventricular white matter again seen. The calvarium is intact. Opaci fied right mastoid air cells redemonstrated. Cervical spine is visualized in its entirety from C1 through upper thoracic levels and redemonstrates surgical change at the skull base extending into the posterior elements of the upper to mid cervical spine. Posterior decompression changes upper cervical spine are redemonstrated. Loss of normal cervi karla curvature is redemonstrated. Grade 1 retrolisthesis C4 on C5 and C5 on C6 is again seen. Grade 1 anterolisthesis C6 on C7 is redemonstrated. No acute displaced fracture. Multilevel uncovertebral fa cet degenerative changes are redemonstrated. Lung apices redemonstrate emphysematous change without p neumothorax. Moderate to severe calcified plaque bilateral carotid bulb level is redemonstrated IMPRESSION: 1. There is no acute fracture or dislocation evident in the cervical spine. 2. No acute intracranial hemorrhage or midline shift is seen. No significant change from most recent prior CT.
--- NOTE | 2024-02-11 06:01 | CT ---
EXAMINATION TYPE: CT thor lumbar spine wo con DATE OF EXAM: 02/11/2024 COMPARISON: None. HISTORY: Patient is coming to facility with complaints of lower back pain. Patient had a fall 2 days ago, no LOC, no head injury. CT DLP: 757.6 mGycm Automated exposure control for dose reduction was used. FINDINGS: Osseous structures are demineralized. There are 5 lumbar type vertebra. There is scoliotic curvature in the lumbar spine. Thoracic spine shows exaggerated kyphosis. No acute displaced fracture in the th oracolumbar spine is present. Vertebral body heights are maintained. There is fairly moderate to adva nced disc space narrowing at T8-T9 and T11-T12 levels. There is moderate multilevel disc space narrow ing in the lumbar spine with relative sparing of L4-L5 level. Multilevel facet arthropathy in the lum bar spine is present greatest in lower lumbar levels. Visualized ribs are grossly intact. There is small left-sided pleural fluid collection that does not completely layer dependently. Some diverticula in the sigmoid colon are partially imaged. Prominent c alcification in the mitral and aortic valve is incidentally noted. IMPRESSION: No acute fracture or dislocation is seen in the thoracic or lumbar spine.
[2024-02-11 06:48] LABS: Amorphous Sediment,Urine Rare /hpf; Appearance,Urine Cloudy (Clear); Bacteria,Urine Many /hpf; Bilirubin,Urine Negative (Negative); Blood,Urine Moderate (Negative); Color,Urine Yellow; Glucose,Urine (UA) Negative (Negative); Ketones,Urine Negative (Negative); Leukocyte Esterase,Urine Moderate (Negative); Mucus,Urine Occasional /hpf; Nitrite,Urine Negative (Negative); PH, Urine 6.5 (5.0-8.0); Protein,Urine 1+ (Negative); Specific Gravity,Urine 1.015 (1.001-1.035); Squamous Epithelial Cell,Urine 4 /hpf (0-4); WBC,Urine 61 /hpf (0-5)
[2024-02-11] MEDS ORDERED: NALOXONE 0.4 MG/ML 1 ML VIAL IV PRN (06:55)
[2024-02-11] MEDS: SODIUM CHLORIDE 0.9% 1,000 ML IV SCH (07:02)
[2024-02-11] MEDS: cefTRIAXone IN SWFI 1,000 MG/10 ML SYRINGE IVP SCH (07:58)
[2024-02-11] MEDS: BUMETANIDE 1 MG TAB PO SCH ×2 (09:52→10:08)
[2024-02-11] MEDS: ASPIRIN 81 MG PO SCH (09:54)
[2024-02-11] MEDS: ACETAMINOPHEN TAB 325 MG TAB PO PRN (10:08)
--- NOTE | 2024-02-11 11:15 | P.PN ---
Subjective Progress Note Date: 02/11/24 This is an 78-year-old female patient well-known to my services are presented to the ER with concerns of Back pain. Patient reports that she fell 2 days ago landing on her back denies loss of consciousness.Patient has a past medical history of CHF, A. fib, GERD, OA, RA, thyroid disorder, home O2, previous heart cath.Chest x-ray completed showing cardiomegaly with perhaps mild central vascular congestion redemonstrated. Correlate for continued CHF exacerbation.CT of brain and cervical spine completed showing no acute fracture or dislocation evident in cervical spine no acute intracranial hemorrhage or midline shift seen. Thoracic spine CT completed showing no acute fracture or dislocation. Positive for UA. Troponin negative. Creatinine 0.64 bun 13. White blood cell 7.4 hemoglobin 11.6.SN patient has been started on IV antibiotic. Urine culture ordered. Will consult cardiology services. Patient also complaining of left leg and hip pain will order x-ray to rule out fracture. Patient denies chest pain or shortness breath. Patient denies nausea vomiting or diarrhea. Patient denies any urinary burning or frequency. Current vital signs temp 97.4, heart rate 110, respiratory rate 18, blood pressure 102/79 with pulse ox of 91% on 3 L Objective - Vital Signs Vital signs: Vital Signs Temp 97.4 F L 02/11/24 07:49 Pulse 134 H 02/11/24 10:07 Resp 18 02/11/24 10:07 BP 102/79 02/11/24 10:07 Pulse Ox 91 L 02/11/24 08:50 FiO2 Intake & Output 02/10/24 02/11/24 02/11/24 18:59 06:59 18:59 Weight 48.534 kg - Exam Head normocephalic Neck supple Lungs clear to auscultation bilaterally no wheezing or crackles Heart regular rate and rhythm S1-S2, no rub or gallop Abdomen is soft nontender nondistended positive bowel sounds no hepatosplenomegaly Extremities no edema Neuro alert and orientated to 3 - Labs CBC & Chem 7: 02/11/24 04:21 02/11/24 04:21 Labs: Abnormal Lab Results - Last 24 Hours (Table) 02/11/24 02/11/24 02/11/24 Range/Units 04:21 04:21 06:30 RDW 16.4 H (11.5-15.5) % Sodium 135 L (137-145) mmol/L Glucose 108 H (74-99) mg/dL Urine Appearance Cloudy H (Clear) Urine Protein 1+ H (Negative) Urine Blood Moderate H (Negative) Ur Leukocyte Esterase Moderate H (Negative) Urine WBC 61 H (0-5) /hpf Amorphous Sediment Rare H (None) /hpf Urine Bacteria Many H (None) /hpf Urine Mucus Occasional H (None) /hpf Assessment and Plan Assessment: 1. Generalized weakness with fall 2. Positive urinary tract infection 3. Left hip pain. X-ray ordered 4. Chronic systolic congestive heart failure maintained on home O2 5. History of valvular heart disease with previous history of mitral valve repair and aortic valve replacement 6. History of nonischemic cardiomyopathy 7. History of COPD 8. History of A. fib 9. History of coronary artery disease with history of coronary artery bypass graft surgery 10. History of partial thyroidectomy 11. History of pulmonary hypertension 12 history of osteoarthritis DVT prophylaxis Lovenox. GI prophylaxis Protonix Cardiology service is consulted Patient started on IV antibiotics Urine and blood culture ordered Hip x-ray ordered PT OT service is consulted Time with Patient: Greater than 30 (Greater than 60% of the total time spent in counseling and coordination of care)
--- NOTE | 2024-02-11 14:03 | XR ---
EXAMINATION TYPE: XR Hip Complete LT DATE OF EXAM: 02/11/2024 COMPARISON: NONE HISTORY: Pain TECHNIQUE: 2 views submitted FINDINGS: There is diffuse osteopenia. This limits sensitivity for fracture. There is a left prostheses. Hetero topic disease is unchanged. IMPRESSION: 1. No definite acute fracture although exam is limited due to severe osteopenia. If there is high cli nical concern or difficulty with weightbearing than would recommend CT scan..
[2024-02-11] MEDS: AMIODARONE 360 MG in DEXTROSE 5% IN WATER 200 ML IV ONE (15:52)
[2024-02-11] MEDS: METOPROLOL TARTRATE 25 MG TAB PO SCH (17:11)
[2024-02-11] MEDS: METOPROLOL TARTRATE 50 MG TAB PO SCH (19:21)
[2024-02-11] MEDS: IPRATROPIUM-ALBUTEROL 3 ML NEB INHALATION PRN (21:03)
[2024-02-11] MEDS: AMIODARONE 450 MG in DEXTROSE 5% IN WATER 250 ML IV SCH (22:29)
[2024-02-12] MEDS: LEVOTHYROXINE 75 MCG TAB PO SCH (05:38)
[2024-02-12 09:18] LABS: ALT 12 U/L (4-34); AST 24 U/L (14-36); African American GFR (CKD) >90 (>60 ml/min/1.73 sqM); Albumin 3.2 g/dL (3.5-5.0); Alkaline Phosphatase 113 U/L (38-126); Anion Gap 5 mmol/L; Blood Urea Nitrogen 12 mg/dL (7-17); Calcium 8.3 mg/dL (8.4-10.2); Carbon Dioxide 29 mmol/L (22-30); Chloride 102 mmol/L (98-107); Glucose 101 mg/dL (74-99); Non-African American GFR(CKD) 84 (>60 ml/min/1.73 sqM); Potassium 3.3 mmol/L (3.5-5.1); Sodium 136 mmol/L (137-145); Total Bilirubin 0.6 mg/dL (0.2-1.3); Total Protein 6.4 g/dL (6.3-8.2)
[2024-02-12 09:36] LABS: Anisocytosis Slight; Basophils % (A) 1 %; Eosinophils # (A) 0.2 k/uL (0-0.7); Eosinophils % (A) 3 %; HCT 36.9 % (34.0-46.0); HGB 11.1 gm/dL (11.4-16.0); Hypochromasia Moderate; Lymphocytes # (A) 1.2 k/uL (1.0-4.8); Lymphocytes % (A) 19 %; MCH 26.4 pg (25.0-35.0); MCHC 30.1 g/dL (31.0-37.0); MCV 87.5 fL (80.0-100.0); Mean Platelet Volume 8.6; Monocytes # (A) 0.4 k/uL (0-1.0); Monocytes % (A) 6 %; Neutrophils # (A) 4.5 k/uL (1.3-7.7); Neutrophils % (A) 70 %; Platelet Count 245 k/uL (150-450); RBC 4.22 m/uL (3.80-5.40); RDW 16.7 % (11.5-15.5); WBC 6.3 k/uL (3.8-10.6)
[2024-02-12] MEDS: DAPAGLIFLOZIN PROPANEDIOL 5 MG TABLET PO SCH (09:46)
[2024-02-12] MEDS: ASCORBIC ACID 500 MG TAB PO SCH (09:46)
[2024-02-12] MEDS: ENOXAPARIN 40 MG/0.4 ML SYRINGE SQ SCH (09:46)
[2024-02-12] MEDS: PANTOPRAZOLE 40 MG TABLET PO SCH (09:47)
[2024-02-12] MEDS: CHOLECALCIFEROL 125 MCG (5000 IU) TABLET PO SCH (09:47)
--- NOTE | 2024-02-12 17:35 | P.HPIM ---
History of Present Illness H&P Date: 02/12/24 Mirella San, is an 78 year old female who presented to [facility] emergency room with a chief complaint of generalized weakness, fall with low back pain She was evaluated in the emergency room vital examination on presentation revealed a temperature of 97.8 pulse 131 respiration 18 blood pressure 113/82 pulse ox 97% on 3 L nasal cannula Laboratory data revealed a white blood count of 7.4 hemoglobin 11.6 platelet count 258 BUN 13 creatinine 0.64 urine analysis was positive for leukocyte esterase and 61 white blood cells in high-power field Testing in the emergency room revealed chest x-ray revealed cardiomegaly with central vascular congestion, CT scan of the head and cervical spine revealed no acute fracture or dislocation in the cervical spine and no acute intracranial hemorrhage or midline shift, CT scan of the thoracic and lumbar spine revealed no acute fracture or dislocation, left hip x-ray revealed no definite acute fracture. Patient was admitted to medical floor for further evaluation and treatment Past Medical History Past Medical History: Atrial Fibrillation, Heart Failure, COPD, GERD/Reflux, Osteoarthritis (OA), Renal Disease, Rheumatoid Arthritis (RA), Supraventricular Tachycardia (SVT), Thyroid Disorder Additional Past Medical History / Comment(s): Valvular heart disease with previ ous aortic valve replacement and a mitral valve repair, congestion heart failure, Paroxysmal Afib, history of SVT, history of nonsustained VT, SOB with exertion, home O2 at 2L/NC usually prn but lately ATC, arthritis, RA several joints, current L elbow pain/swelling-had "injection", nephrolithiasis, hypothyroid, diverticular dx, UTI, iron deficiency anemia. 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 History of Any Multi-Drug Resistant Organisms: None Reported Past Surgical History: Coronary Bypass/CABG, Heart Catheterization, Hysterectomy, Joint Replacement, Orthopedic Surgery Additional Past Surgical History / Comment(s): Geoff total knees arthroplasty,lt hip arthroplasty, goiter removed 1962, partial thyroidectomy, cataracts removed with lens implants, REVERSE TOTAL RIGHT SHOULDER; Rotator cuff R shoulder, cer vical fusion/injections, colonoscopy 2016(next after 5yr), MATTHEW, valve surgery at [facility] 10/13/17 Prosthetic Aortic valve and mitral valve repair. Total abdominal hysterectomy in the . Past Anesthesia/Blood Transfusion Reactions: Postoperative Nausea & Vomiting (PONV) Past Psychological History: No Psychological Hx Reported Additional Psychological History / Comment(s): Pt resides with her spouse in an apartment with no stairs. She used to drive but not since valve surgery. Her spouse is helpful and able to drive her to appts. She has home oxygen. She uses a walker to ambulate and has a cane. She also has a scale and B/P monitor. She has used VMA in the recent past. Smoking Status: Former smoker Past Alcohol Use History: Rare Additional Past Alcohol Use History / Comment(s): She used to drink 2 glasses of wine per week but hasn't for months, quit smoking @age of 43, smoked 1ppd for 30 yrs. Past Drug Use History: None Reported - Past Family History Father Family Medical History: Cancer, Myocardial Infarction ([place]) Additional Family Medical History / Comment(s): in his 80's of a mi. Colon cancer. Mother Family Medical History: No Reported History Additional Family Medical History / Comment(s): age 88 . hx smoking. Daughter(s) Family Medical History: Cancer Additional Family Medical History / Comment(s): from vulvar cancer. Medications and Allergies Home Medications Medication Instructions Recorded Confirmed Type Ascorbic Acid [Vitamin C] 500 mg PO DAILY 30 Days #30 tab 11/05/23 02/11/24 Rx Aspirin 81 mg PO DAILY 30 Days #30 tab 11/05/23 02/11/24 Rx Cholecalciferol (Vitamin D3) 125 mcg PO DAILY 30 Days #30 cap 11/05/23 02/11/24 Rx [Vitamin D3 (125 MCG = 5,000 IU)] Ipratropium-Albuterol Nebulize 3 ml INHALATION RT-Q6H PRN 11/20/23 02/11/24 History [Duoneb 0.5 mg-3 mg/3 ml Soln] Levothyroxine Sodium [Synthroid] 150 mcg PO DAILY 11/20/23 02/11/24 History Empagliflozin [Jardiance] 10 mg PO DAILY 30 Days #30 tablet 12/31/23 02/11/24 Rx HYDROcodone/APAP 10-325MG [[place] 1 tab PO Q8H PRN 3 Days #12 tab 12/31/23 02/11/24 Rx 10-325] Bumetanide [BUMEX] 1 mg PO DAILY@1600 02/11/24 02/11/24 History Bumetanide [BUMEX] 2 mg PO DAILY@0900 02/11/24 02/11/24 History Allergies Allergy/AdvReac Type Severity Reaction Status Date / Time lisinopril AdvReac Cough Verified 02/11/24 07:57 Physical Exam Vitals: Vital Signs Temp Pulse Pulse Resp BP BP Pulse Ox 02/12/24 15:42 98.3 F 67 18 103/63 98 02/12/24 12:00 66 97/76 100 02/12/24 08:37 99 02/12/24 08:00 64 16 126/85 100 02/12/24 06:00 68 16 120/73 99 02/12/24 04:00 70 20 104/81 99 02/12/24 03:00 61 17 102/66 100 02/12/24 02:00 67 16 101/89 100 02/12/24 01:00 62 20 110/80 100 02/11/24 22:00 60 20 102/59 96 02/11/24 21:13 62 02/11/24 21:03 62 02/11/24 20:00 66 20 113/71 100 02/11/24 19:40 63 19 113/71 97 Intake and Output 02/12/24 02/12/24 02/12/24 06:59 14:59 22:59 Output Total 950 450 Balance -950 -450 Output: Urine 950 450 Other: Voiding Method External Catheter # Voids 1 In general patient is alert and oriented x 3 in no distress HEENT head normocephalic and atraumatic Neck is supple no JVD no goiter no lymphadenopathy no carotid bruit Chest examination is clear to auscultation no crackles no wheezing Cardiac exam reveals regular heart sounds S1 and S2 no gallops no murmurs Abdomen is soft nontender no organomegaly with normal bowel sounds Extremity exam reveals no edema no cyanosis or clubbing Neurological examination reveals no gross focal deficits Results CBC & Chem 7: 02/12/24 08:39 02/12/24 08:39 Labs: Abnormal Lab Results - Last 24 Hours (Table) 02/12/24 02/12/24 Range/Units 08:39 08:39 Hgb 11.1 L (11.4-16.0) gm/dL MCHC 30.1 L (31.0-37.0) g/dL RDW 16.7 H (11.5-15.5) % Sodium 136 L (137-145) mmol/L Potassium 3.3 L (3.5-5.1) mmol/L Glucose 101 H (74-99) mg/dL Calcium 8.3 L (8.4-10.2) mg/dL Albumin 3.2 L (3.5-5.0) g/dL Microbiology - Last 24 Hours (Table) 02/11/24 07:20 Blood Culture - Preliminary Blood 02/11/24 07:30 Blood Culture - Preliminary Blood Thrombosis Risk Factor Assmnt - Choose All That Apply Each Factor Represents 1 point: Medical pt on bed rest Each Risk Factor Represents 3 Points: Age 75 years or older Thrombosis Risk Factor Assessment Total Risk Factor Score: 4 Thrombosis Risk Factor Assessment Level: Moderate Risk Assessment and Plan Assessment: 1. Generalized weakness with fall 2. Positive urinary tract infection 3. Left hip pain. X-ray ordered 4. Chronic systolic congestive heart failure maintained on home O2 5. History of valvular heart disease with previous history of mitral valve repair and aortic valve replacement 6. History of nonischemic cardiomyopathy 7. History of COPD 8. History of A. fib 9. History of coronary artery disease with history of coronary artery bypass graft surgery 10. History of partial thyroidectomy 11. History of pulmonary hypertension 12 history of osteoarthritis DVT prophylaxis Lovenox. GI prophylaxis Protonix Cardiology service is consulted Patient started on IV antibiotics Urine and blood culture ordered Hip x-ray ordered PT OT service is consulted
[2024-02-12] MEDS: METOPROLOL TARTRATE 50 MG TAB PO SCH (21:22)
[2024-02-13 10:32] LABS: Anisocytosis Slight; Basophils # (A) 0.1 k/uL (0-0.2); Basophils % (A) 1 %; Eosinophils # (A) 0.3 k/uL (0-0.7); Eosinophils % (A) 4 %; HCT 36.6 % (34.0-46.0); HGB 10.7 gm/dL (11.4-16.0); Hypochromasia Marked; Lymphocytes # (A) 1.2 k/uL (1.0-4.8); Lymphocytes % (A) 15 %; MCH 26.1 pg (25.0-35.0); MCHC 29.2 g/dL (31.0-37.0); MCV 89.4 fL (80.0-100.0); Mean Platelet Volume 8.8; Monocytes # (A) 0.5 k/uL (0-1.0); Monocytes % (A) 6 %; Neutrophils # (A) 5.5 k/uL (1.3-7.7); Neutrophils % (A) 72 %; Platelet Count 262 k/uL (150-450); RDW 16.4 % (11.5-15.5); WBC 7.7 k/uL (3.8-10.6)
--- NOTE | 2024-02-13 10:38 | P.PN ---
Subjective Progress Note Date: 02/13/24 Mirella San, is an 78 year old female who presented to [facility] emergency room with a chief complaint of generalized weakness, fall with low back pain She was evaluated in the emergency room vital examination on presentation revealed a temperature of 97.8 pulse 131 respiration 18 blood pressure 113/82 pulse ox 97% on 3 L nasal cannula Laboratory data revealed a white blood count of 7.4 hemoglobin 11.6 platelet count 258 BUN 13 creatinine 0.64 urine analysis was positive for leukocyte esterase and 61 white blood cells in high-power field Testing in the emergency room revealed chest x-ray revealed cardiomegaly with central vascular congestion, CT scan of the head and cervical spine revealed no acute fracture or dislocation in the cervical spine and no acute intracranial hemorrhage or midline shift, CT scan of the thoracic and lumbar spine revealed no acute fracture or dislocation, left hip x-ray revealed no definite acute fracture. Patient was admitted to medical floor for further evaluation and treatment On 02/13/2024 for patient's alert and oriented times 3. Patient remains on IV antibiotics. Cardiology services consulted.Current vital signs temp 97.9, heart rate 92, respiratory rate 18, blood pressure 106/61 with pulse ox 100% on 3 L. PT OT services consulted. Patient reports some shortness of breath with activity. Patient denies chest pain. Patient denies nausea vomiting or diarrhea. Patient denies any urinary burning or frequency Objective - Vital Signs Vital signs: Vital Signs Temp 97.9 F 02/13/24 08:05 Pulse 90 02/13/24 10:30 Resp 18 02/13/24 08:05 BP 106/61 02/13/24 08:05 Pulse Ox 100 02/13/24 08:05 FiO2 Intake & Output 02/12/24 02/13/24 02/13/24 18:59 06:59 18:59 Intake Total 120 118 Output Total 1400 400 Balance -1280 -400 118 Intake: Oral 120 118 Output: Urine 1400 400 Other: Voiding Method External Catheter External Catheter # Voids 1 1 # Bowel Movements 1 - Exam Head normocephalic Neck supple Lungs clear to auscultation bilaterally no wheezing or crackles Heart regular rate and rhythm S1-S2, no rub or gallop Abdomen is soft nontender nondistended positive bowel sounds no hepatosplenomegaly Extremities no edema Neuro alert and orientated to 3 - Labs CBC & Chem 7: 06/14/24 09:02 02/12/24 08:39 Labs: Abnormal Lab Results - Last 24 Hours (Table) 02/13/24 Range/Units 09:02 Hgb 10.7 L (11.4-16.0) gm/dL MCHC 29.2 L (31.0-37.0) g/dL RDW 16.4 H (11.5-15.5) % Microbiology - Last 24 Hours (Table) 02/11/24 06:30 Urine Culture - Preliminary Urine,Clean Catch 02/11/24 07:20 Blood Culture - Preliminary Blood 02/11/24 07:30 Blood Culture - Preliminary Blood Assessment and Plan Assessment: 1. Generalized weakness with fall 2. Positive urinary tract infection 3. Left hip pain. X-ray ordered 4. Chronic systolic congestive heart failure maintained on home O2 5. History of valvular heart disease with previous history of mitral valve repair and aortic valve replacement 6. History of nonischemic cardiomyopathy 7. History of COPD 8. History of A. fib 9. History of coronary artery disease with history of coronary artery bypass graft surgery 10. History of partial thyroidectomy 11. History of pulmonary hypertension 12 history of osteoarthritis DVT prophylaxis Lovenox. GI prophylaxis Protonix Cardiology service is consulted Patient started on IV antibiotics Urine and blood culture ordered Hip x-ray ordered Cardiology services consulted PT OT service is consulted
[2024-02-13 11:01] LABS: ALT 11 U/L (4-34); AST 24 U/L (14-36); African American GFR (CKD) 84 (>60 ml/min/1.73 sqM); Albumin 3.2 g/dL (3.5-5.0); Alkaline Phosphatase 119 U/L (38-126); Anion Gap 9 mmol/L; Blood Urea Nitrogen 14 mg/dL (7-17); Calcium 8.5 mg/dL (8.4-10.2); Carbon Dioxide 25 mmol/L (22-30); Chloride 103 mmol/L (98-107); Glucose 130 mg/dL (74-99); Non-African American GFR(CKD) 73 (>60 ml/min/1.73 sqM); Potassium 3.4 mmol/L (3.5-5.1); Sodium 137 mmol/L (137-145); Total Bilirubin 0.6 mg/dL (0.2-1.3); Total Protein 6.4 g/dL (6.3-8.2)
--- NOTE | 2024-02-13 12:12 | CDI ---
Documentation Clarification Form Date: 02/12/2024 11:43:08 AM From: Mercedes Soto RN, CCDS Phone: [phone] Admit Date: 02/11/2024 06:55:00 AM Patient Name: Mirella San Visit Number: [id number] Discharge Date: ATTENTION: The Clinical Documentation Specialists (CDI) and [facility] Coding Staff appreciate your assistance in clarifying documentation. Please respond to the clarification below the line at the bottom and electronically sign. The CDI & [facility] Coding staff will review the response and follow-up if needed. Please note: Queries are made part of the Legal Health Record. If you have any questions, please contact the author of this message via ITS. Dr. Olya Olson Your patient has documentation of home O2 3/L nasal cannula. Based on this information and the findings below, is there an additional diagnosis that is clinically appropriate for this patient? History/Risk Factors: Atrial Fibrillation, Heart Failure, COPD, GERD/Reflux, Osteoarthritis, Renal Disease, Rheumatoid Arthritis Tobacco use: Former smoker Home oxygen: 3/L [place] Clinical Indicators: 78-year-old female with a chief complaint of generalized weakness, fall with low back pain. Vital signs: 02/10) 113/82 131 18 97.8 97% 3/L NC Lung/Breathing assessment: Lungs clear to auscultation bilaterally no wheezing or crackles Treatment: air sampling and monitoring /[employer] Se[employer] O2 Sat's (titrate DuoNeb per RT Q 6 [RM SOB Bumex 2 MG PO Daily 02/10-02/12 Is there an additional diagnosis that is clinically appropriate for this patient? [ ] Acute Hypoxic Respiratory Failure [ ] Acute Hypercapnic Respiratory Failure [ x] Acute on Chronic Respiratory Failure [ ] Other Diagnosis, please specify [ ] Unable to determine (Template Last Revised: September 2023) MTDD
[2024-02-13 12:54] VITALS: BMI 21.6
--- NOTE | 2024-02-13 18:17 | P.CRDCN ---
History of Present Illness Consult date: 02/13/24 History of present illness: HISTORY OF PRESENTING ILLNESS Patient is a 78-year-old female who presented to the hospital because of generalized weakness, mechanical fall and lower back pain. Patient has a past medical history of chronic atrial fibrillation, heart failure with reduced ejection fraction, supplementary tachycardia, valvular heart disease with mitral valve repair and aortic valve placement, COPD, nonischemic cardiomyopathy. She is known to Dr. Leal. On admission she was in rate controlled atrial fibrillation. REVIEW OF SYSTEMS 14 point review of system is negative except what is mentioned above in HPI. PHYSICAL EXAMINATION Vital signs reviewed. Head: Normocephalic. Eyes: Sclerae nonicteric. Neck: Brisk carotid upstroke, no jugular venous distention. Lungs: Clear to auscultation. Heart: Irregularly irregular, S1-S2, systolic murmur Abdomen: Soft nontender, positive bowel sounds. Extremities: No edema, intact distal pulses. Neuro: Alert, oritented, no focal deficits. Detailed neuro exam was not performed. ASSESSMENT Chronic atrial fibrillation, rate controlled Nonischemic cardiomyopathy Chronic systolic CHF. Currently euvolemic, on home oxygen History of valvular heart disease with mitral valve repair and aortic valve replacement, stable CAD status post CABG Pulmonary hypertension Debility and frailty Generalized weakness and fall UTI PLAN Continue current cardiac medications without any changes. Patient is at present optimized from cardiovascular standpoint. Cardiology team will sign off. Primary team to manage UTI and generalized weakness Young Brown MD, FACC, RPVI Thank you for allowing [facility] to participate in this patient's care. Feel free to reach out in case of any followup questions. Past Medical History Past Medical History: Atrial Fibrillation, Heart Failure, COPD, GERD/Reflux, Osteoarthritis (OA), Renal Disease, Rheumatoid Arthritis (RA), Supraventricular Tachycardia (SVT), Thyroid Disorder Additional Past Medical History / Comment(s): Valvular heart disease with previous aortic valve replacement and a mitral valve repair, congestion heart failure, Paroxysmal Afib, history of SVT, history of nonsustained VT, SOB with exertion, home O2 at 2L/NC usually prn but lately ATC, arthritis, RA several karla ints, current L elbow pain/swelling-had "injection", nephrolithiasis, hypothyroid, diverticular dx, UTI, iron deficiency anemia. 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 History of Any Multi-Drug Resistant Organisms: None Reported Past Surgical History: Coronary Bypass/CABG, Heart Catheterization, Hysterectomy, Joint Replacement, Orthopedic Surgery Additional Past Surgical History / Comment(s): Geoff total knees arthroplasty,lt hip arthroplasty, goiter removed 1962, partial thyroidectomy, cataracts removed with lens implants, REVERSE TOTAL RIGHT SHOULDER; Rotator cuff R shoulder, cervical fusion/injections, colonoscopy 2017(next after 5yr), MATTHEW, valve surgery at [facility] 10/13/17 Prosthetic Aortic valve and mitral valve repair. Total abdominal hysterectomy in the 1980s. Past Anesthesia/Blood Transfusion Reactions: Postoperative Nausea & Vomiting (PONV) Past Psychological History: No Psychological Hx Reported Additional Psychological History / Comment(s): Pt resides with her spouse in an apartment with no stairs. She used to drive but not since valve surgery. Her spouse is helpful and able to drive her to appts. She has home oxygen. She uses a walker to ambulate and has a cane. She also has a scale and B/P monitor. She has used VMA in the recent past. Smoking Status: Former smoker Past Alcohol Use History: Rare Additional Past Alcohol Use History / Comment(s): She used to drink 2 glasses of wine per week but hasn't for months, quit smoking @age of 43, smoked 1ppd for 30 yrs. Past Drug Use History: None Reported - Past Family History Father Family Medical History: Cancer, Myocardial Infarction ([place]) Additional Family Medical History / Comment(s): in his 80's of a mi. Colon cancer. Mother Family Medical History: No Reported History Additional Family Medical History / Comment(s): age 88 . hx smoking. Daughter(s) Family Medical History: Cancer Additional Family Medical History / Comment(s): from vulvar cancer. Medications and Allergies Home Medications Medication Instructions Recorded Confirmed Type Ascorbic Acid [Vitamin C] 500 mg PO DAILY 30 Days #30 tab 11/05/23 02/11/24 Rx Aspirin 81 mg PO DAILY 30 Days #30 tab 11/05/23 02/11/24 Rx Cholecalciferol (Vitamin D3) 125 mcg PO DAILY 30 Days #30 cap 11/05/23 02/11/24 Rx [Vitamin D3 (125 MCG = 5,000 IU)] Ipratropium-Albuterol Nebulize 3 ml INHALATION RT-Q6H PRN 11/20/23 02/11/24 History [Duoneb 0.5 mg-3 mg/3 ml Soln] Levothyroxine Sodium [Synthroid] 150 mcg PO DAILY 11/20/23 02/11/24 History Empagliflozin [Jardiance] 10 mg PO DAILY 30 Days #30 tablet 12/31/23 02/11/24 Rx HYDROcodone/APAP 10-325MG [[place] 1 tab PO Q8H PRN 3 Days #12 tab 12/31/23 02/11/24 Rx 10-325] Bumetanide [BUMEX] 1 mg PO DAILY@1600 02/11/24 02/11/24 History Bumetanide [BUMEX] 2 mg PO DAILY@0900 02/11/24 02/11/24 History Allergies Allergy/AdvReac Type Severity Reaction Status Date / Time lisinopril AdvReac Cough Verified 02/11/24 07:57 Physical Exam Vitals: Vital Signs Temp Pulse Pulse Resp BP Pulse Ox 02/13/24 16:00 98 F 84 18 90/55 99 02/13/24 12:20 97.8 F 53 L 18 95/50 100 02/13/24 10:30 90 02/13/24 10:18 88 02/13/24 08:05 97.9 F 92 18 106/61 100 02/13/24 04:00 97.1 F L 77 16 96/58 97 02/13/24 02:00 77 16 02/12/24 23:43 98.3 F 74 16 126/72 98 02/12/24 20:00 98.1 F 77 16 110/77 98 Intake and Output 02/13/24 02/13/24 02/13/24 06:59 14:59 22:59 Intake Total 361 Output Total 400 900 Balance -400 -539 Intake: Intake, IV Titration 125 Amount Sodium Chloride 0.9% 1, 75 000 ml @ 75 mls/hr IV . [id number] [facility] Rx#:[id number] cefTRIAXone 1 gm In 50 Sodium Chloride 0.9% 50 ml @ 100 mls/hr IVPB Q24H [facility] Rx#:[id number] Oral 236 Output: Urine 400 900 Other: Voiding Method External Catheter # Voids 1 # Bowel Movements 1 Weight 48.534 kg Results 02/13/24 09:02 02/13/24 09:02 Cardiac Enzymes 02/13/24 Range/Units 09:02 AST 24 (14-36) U/L CBC 02/13/24 Range/Units 09:02 WBC 7.7 (3.8-10.6) k/uL RBC 4.10 (3.80-5.40) m/uL Hgb 10.7 L (11.4-16.0) gm/dL Hct 36.6 (34.0-46.0) % Plt Count 262 (150-450) k/uL Comprehensive Metabolic Panel 02/13/24 Range/Units 09:02 Sodium 137 (137-145) mmol/L Potassium 3.4 L (3.5-5.1) mmol/L Chloride 103 (98-107) mmol/L Carbon Dioxide 25 (22-30) mmol/L BUN 14 (7-17) mg/dL Creatinine 0.77 (0.52-1.04) mg/dL Glucose 130 H (74-99) mg/dL Calcium 8.5 (8.4-10.2) mg/dL AST 24 (14-36) U/L ALT 11 (4-34) U/L Alkaline Phosphatase 119 (38-126) U/L Total Protein 6.4 (6.3-8.2) g/dL Albumin 3.2 L (3.5-5.0) g/dL Current Medications Generic Name Dose Route Start Last Admin Trade Name Freq PRN Reason Stop Dose Admin Acetaminophen 650 mg 02/11/24 06:55 02/11/24 17:09 Acetaminophen Tab 325 Mg Tab PO 650 mg Q6HR PRN Administration Mild Pain or Fever > 100.5 Hydrocodone Bitart/Acetaminophen 1 each 02/11/24 09:25 Hydrocodone/Apap 10-325mg 1 Each Tab PO Q8H PRN Pain Albuterol/Ipratropium 3 ml 02/11/24 09:25 02/13/24 10:18 Ipratropium-Albuterol 3 Ml Neb INHALATION 3 ml RT-Q6H PRN Administration Shortness Of Breath Ascorbic Acid 500 mg 02/12/24 09:00 02/13/24 08:51 Ascorbic Acid 500 Mg Tab PO 500 mg DAILY [facility] Administration Aspirin 81 mg 02/11/24 09:30 02/13/24 08:51 Aspirin 81 Mg PO 81 mg DAILY [facility]OS Administration Bumetanide 2 mg 02/11/24 10:00 02/13/24 08:51 Bumetanide 1 Mg Tab PO 2 mg DAILY@0900 [facility] Administration Cholecalciferol 125 mcg 02/12/24 09:00 02/13/24 08:51 Cholecalciferol 125 Mcg (5000 Iu) Tablet PO 125 mcg DAILY [facility] Administration Dapagliflozin 5 mg 02/12/24 09:00 02/13/24 08:51 Dapagliflozin Propanediol 5 Mg Tablet PO 5 mg DAILY [facility] Administration Enoxaparin Sodium 40 mg 02/12/24 09:00 02/13/24 08:51 Enoxaparin 40 Mg/0.4 Ml Syringe SQ 40 mg DAILY [facility]OS Administration Sodium Chloride 1,000 mls @ 75 mls/hr 02/11/24 07:00 02/13/24 12:18 Saline 0.9% IV Not Given .[id number] [facility] Ceftriaxone Sodium 1 gm/ 50 mls @ 100 mls/hr 02/13/24 07:00 02/13/24 12:00 Sodium Chloride IVPB 100 mls/hr Q24H [facility] Administration Levothyroxine Sodium 150 mcg 02/12/24 06:30 02/13/24 05:19 Levothyroxine 75 Mcg Tab PO 150 mcg 0630 [facility] Administration Metoprolol Tartrate 50 mg 02/12/24 21:00 02/13/24 08:51 Metoprolol Tartrate 50 Mg Tab PO 50 mg BID CARLOS Administration Naloxone HCl 0.2 mg 02/11/24 06:55 Naloxone 0.4 Mg/Ml 1 Ml Vial IV Q2M PRN Opioid Reversal Pantoprazole Sodium 40 mg 02/12/24 07:30 02/13/24 05:22 Pantoprazole 40 Mg Tablet PO 40 mg [id number] CARLOS Administration Intake and Output 02/13/24 02/13/24 02/13/24 06:59 14:59 22:59 Intake Total 361 Output Total 400 900 Balance -400 -539 Intake: Intake, IV Titration 125 Amount Sodium Chloride 0.9% 1, 75 000 ml @ 75 mls/hr IV . [id number] [facility] Rx#:[id number] cefTRIAXone 1 gm In 50 Sodium Chloride 0.9% 50 ml @ 100 mls/hr IVPB Q24H [facility] Rx#:[id number] Oral 236 Output: Urine 400 900 Other: Voiding Method External Catheter # Voids 1 # Bowel Movements 1 Weight 48.534 kg Patient Weight 02/14/24 06:59 Weight 48.534 kg 02/13/24 09:02 02/13/24 09:02
[2024-02-13] MEDS: HYDROcodone/APAP 10-325MG 1 EACH TAB PO PRN (20:26)
[2024-02-14 07:03] LABS: Anisocytosis Slight; Basophils % (A) 1 %; Eosinophils # (A) 0.3 k/uL (0-0.7); Eosinophils % (A) 4 %; HGB 10.2 gm/dL (11.4-16.0); Hypochromasia Marked; Lymphocytes # (A) 1.4 k/uL (1.0-4.8); Lymphocytes % (A) 22 %; MCH 26.8 pg (25.0-35.0); MCHC 29.9 g/dL (31.0-37.0); MCV 89.4 fL (80.0-100.0); Mean Platelet Volume 8.3; Monocytes # (A) 0.5 k/uL (0-1.0); Monocytes % (A) 8 %; Neutrophils % (A) 61 %; Platelet Count 246 k/uL (150-450); RBC 3.81 m/uL (3.80-5.40); RDW 16.6 % (11.5-15.5); WBC 6.5 k/uL (3.8-10.6)
[2024-02-14 07:15] LABS: ALT 10 U/L (4-34); AST 21 U/L (14-36); African American GFR (CKD) 84 (>60 ml/min/1.73 sqM); Albumin 3.2 g/dL (3.5-5.0); Alkaline Phosphatase 123 U/L (38-126); Anion Gap 5 mmol/L; Blood Urea Nitrogen 17 mg/dL (7-17); Calcium 8.4 mg/dL (8.4-10.2); Carbon Dioxide 30 mmol/L (22-30); Chloride 103 mmol/L (98-107); Glucose 96 mg/dL (74-99); Non-African American GFR(CKD) 73 (>60 ml/min/1.73 sqM); Potassium 3.2 mmol/L (3.5-5.1); Sodium 138 mmol/L (137-145); Total Bilirubin 0.5 mg/dL (0.2-1.3); Total Protein 6.3 g/dL (6.3-8.2)
--- NOTE | 2024-02-14 10:12 | P.PN ---
Subjective Progress Note Date: 02/14/24 Mirella San, is an 78 year old female who presented to [facility] emergency room with a chief complaint of generalized weakness, fall with low back pain She was evaluated in the emergency room vital examination on presentation revealed a temperature of 97.8 pulse 131 respiration 18 blood pressure 113/82 pulse ox 97% on 3 L nasal cannula Laboratory data revealed a white blood count of 7.4 hemoglobin 11.6 platelet count 258 BUN 13 creatinine 0.64 urine analysis was positive for leukocyte esterase and 61 white blood cells in high-power field Testing in the emergency room revealed chest x-ray revealed cardiomegaly with central vascular congestion, CT scan of the head and cervical spine revealed no acute fracture or dislocation in the cervical spine and no acute intracranial hemorrhage or midline shift, CT scan of the thoracic and lumbar spine revealed no acute fracture or dislocation, left hip x-ray revealed no definite acute fracture. Patient was admitted to medical floor for further evaluation and treatment On 02/13/2024 for patient's alert and oriented times 3. Patient remains on IV antibiotics. Cardiology services consulted.Current vital signs temp 97.9, heart rate 92, respiratory rate 18, blood pressure 106/61 with pulse ox 100% on 3 L. PT OT services consulted. Patient reports some shortness of breath with activity. Patient denies chest pain. Patient denies nausea vomiting or diarrhea. Patient denies any urinary burning or frequency On 02/14/2024 patient's alert and oriented 3. Antibiotics adjusted to Levaquin based of micro-culture. Patient denies chest pain or shortness of breath. Patient denies nausea vomiting or diarrhea. Patient denies any urinary burning or frequency. Current vital signs temp 97.8, heart rate 57, respiratory rate 15 , blood pressure 98/51 with pulse ox 100% on 2 L Objective - Vital Signs Vital signs: Vital Signs Temp 97.8 F 02/14/24 02:03 Pulse 60 02/14/24 06:12 Resp 15 02/14/24 02:03 BP 98/51 02/14/24 02:03 Pulse Ox 100 02/14/24 02:03 FiO2 Intake & Output 02/13/24 02/14/24 02/14/24 18:59 06:59 18:59 Intake Total 361 Output Total 1400 Balance -1039 Weight 48.534 kg 48.534 kg Intake: Intake, IV Titration 125 Amount Sodium Chloride 0.9% 1, 75 000 ml @ 75 mls/hr IV . [id number] [facility] Rx#:[id number] cefTRIAXone 1 gm In 50 Sodium Chloride 0.9% 50 ml @ 100 mls/hr IVPB Q24H [facility] Rx#:[id number] Oral 236 Output: Urine 1400 Other: Voiding Method External Catheter # Voids 300 - Exam Head normocephalic Neck supple Lungs clear to auscultation bilaterally no wheezing or crackles Heart regular rate and rhythm S1-S2, no rub or gallop Abdomen is soft nontender nondistended positive bowel sounds no hepatosplenomegaly Extremities no edema Neuro alert and orientated to 3 - Labs CBC & Chem 7: 02/14/24 06:41 02/14/24 06:41 Labs: Abnormal Lab Results - Last 24 Hours (Table) 02/13/24 02/13/24 02/14/24 Range/Units 09:02 09:02 06:41 Hgb 10.7 L 10.2 L (11.4-16.0) gm/dL MCHC 29.2 L 29.9 L (31.0-37.0) g/dL RDW 16.4 H 16.6 H (11.5-15.5) % Potassium 3.4 L (3.5-5.1) mmol/L Glucose 130 H (74-99) mg/dL Albumin 3.2 L (3.5-5.0) g/dL 02/14/24 Range/Units 06:41 Hgb (11.4-16.0) gm/dL MCHC (31.0-37.0) g/dL RDW (11.5-15.5) % Potassium 3.2 L (3.5-5.1) mmol/L Glucose (74-99) mg/dL Albumin 3.2 L (3.5-5.0) g/dL Microbiology - Last 24 Hours (Table) 02/11/24 06:30 Urine Culture - Final Urine,Clean Catch Aerococcus urinae Proteus vulgaris 02/11/24 07:20 Blood Culture - Preliminary Blood 02/11/24 07:30 Blood Culture - Preliminary Blood Assessment and Plan Assessment: 1. Generalized weakness with fall 2. Positive urinary tract infection 3. Left hip pain. X-ray ordered 4. Chronic systolic congestive heart failure maintained on home O2 5. History of valvular heart disease with previous history of mitral valve repair and aortic valve replacement 6. History of nonischemic cardiomyopathy 7. History of COPD 8. History of A. fib 9. History of coronary artery disease with history of coronary artery bypass graft surgery 10. History of partial thyroidectomy 11. History of pulmonary hypertension 12 history of osteoarthritis DVT prophylaxis Lovenox. GI prophylaxis Protonix Cardiology service is consulted Patient started on IV antibiotics Urine and blood culture ordered Hip x-ray ordered Cardiology services consulted PT OT service is consulted
[2024-02-14] MEDS: LEVOFLOXACIN 500MG-D5W PMX 500 MG in DEXTROSE/WATER 1 100ML.BAG IVPB SCH (12:01)
[2024-02-15 06:29] LABS: Anisocytosis Slight; Basophils % (A) 0 %; Eosinophils # (A) 0.2 k/uL (0-0.7); Eosinophils % (A) 3 %; HCT 32.5 % (34.0-46.0); HGB 9.7 gm/dL (11.4-16.0); Hypochromasia Marked; Lymphocytes # (A) 1.1 k/uL (1.0-4.8); Lymphocytes % (A) 16 %; MCH 26.6 pg (25.0-35.0); MCHC 29.9 g/dL (31.0-37.0); MCV 88.9 fL (80.0-100.0); Mean Platelet Volume 9.6; Monocytes # (A) 0.4 k/uL (0-1.0); Monocytes % (A) 6 %; Neutrophils # (A) 4.9 k/uL (1.3-7.7); Neutrophils % (A) 73 %; RBC 3.65 m/uL (3.80-5.40); RDW 16.8 % (11.5-15.5); WBC 6.7 k/uL (3.8-10.6)
[2024-02-15 06:30] LABS: Platelet Count 90 k/uL (150-450)
[2024-02-15 06:44] LABS: ALT 11 U/L (4-34); AST 28 U/L (14-36); African American GFR (CKD) >90 (>60 ml/min/1.73 sqM); Alkaline Phosphatase 128 U/L (38-126); Anion Gap 4 mmol/L; Blood Urea Nitrogen 18 mg/dL (7-17); Calcium 8.5 mg/dL (8.4-10.2); Carbon Dioxide 26 mmol/L (22-30); Chloride 108 mmol/L (98-107); Globulin 3.1 g/dL; Glucose 101 mg/dL (74-99); Non-African American GFR(CKD) 88 (>60 ml/min/1.73 sqM); Sodium 138 mmol/L (137-145); Total Bilirubin 0.6 mg/dL (0.2-1.3); Total Protein 6.1 g/dL (6.3-8.2)
[2024-02-15] MEDS: LEVOFLOXACIN 250MG-D5W PMX 250 MG in DEXTROSE/WATER 1 50ML.BAG IVPB SCH (12:00)
--- NOTE | 2024-02-15 12:15 | P.PN ---
Subjective Progress Note Date: 02/15/24 Mirella San, is an 78 year old female who presented to [facility] emergency room with a chief complaint of generalized weakness, fall with low back pain She was evaluated in the emergency room vital examination on presentation revealed a temperature of 97.8 pulse 131 respiration 18 blood pressure 113/82 pulse ox 97% on 3 L nasal cannula Laboratory data revealed a white blood count of 7.4 hemoglobin 11.6 platelet count 258 BUN 13 creatinine 0.64 urine analysis was positive for leukocyte esterase and 61 white blood cells in high-power field Testing in the emergency room revealed chest x-ray revealed cardiomegaly with central vascular congestion, CT scan of the head and cervical spine revealed no acute fracture or dislocation in the cervical spine and no acute intracranial hemorrhage or midline shift, CT scan of the thoracic and lumbar spine revealed no acute fracture or dislocation, left hip x-ray revealed no definite acute fracture. Patient was admitted to medical floor for further evaluation and treatment On 02/13/2024 for patient's alert and oriented times 3. Patient remains on IV antibiotics. Cardiology services consulted.Current vital signs temp 97.9, heart rate 92, respiratory rate 18, blood pressure 106/61 with pulse ox 100% on 3 L. PT OT services consulted. Patient reports some shortness of breath with activity. Patient denies chest pain. Patient denies nausea vomiting or diarrhea. Patient denies any urinary burning or frequency On 02/14/2024 patient's alert and oriented 3. Antibiotics adjusted to Levaquin based of micro-culture. Patient denies chest pain or shortness of breath. Patient denies nausea vomiting or diarrhea. Patient denies any urinary burning or frequency. Current vital signs temp 97.8, heart rate 57, respiratory rate 15 , blood pressure 98/51 with pulse ox 100% on 2 L On 02/15/2024 patient was seen and examined on the medical floor, she is alert and oriented x 3 in no apparent distress, there is no fever or chills no headache or dizziness no chest pain, she is still having shortness of breath with any activity, occasional cough, no nausea or vomiting no abdominal pain no diarrhea no urinary symptoms. Objective - Vital Signs Vital signs: Vital Signs Temp 98.0 F 02/15/24 07:16 Pulse 70 02/15/24 09:21 Resp 17 06/16/24 07:16 BP 116/71 02/15/24 07:16 Pulse Ox 100 02/15/24 07:46 FiO2 Intake & Output 02/14/24 02/15/24 02/15/24 18:59 06:59 18:59 Output Total 300 300 Balance -300 -300 Output: Urine 300 300 Other: Voiding Method External Catheter External Catheter External Catheter - Exam Head normocephalic Neck supple Lungs clear to auscultation bilaterally no wheezing or crackles Heart regular rate and rhythm S1-S2, no rub or gallop Abdomen is soft nontender nondistended positive bowel sounds no hepatosplenomegaly Extremities no edema Neuro alert and orientated to 3 - Labs CBC & Chem 7: 02/15/24 05:55 02/15/24 05:55 Labs: Abnormal Lab Results - Last 24 Hours (Table) 02/15/24 02/15/24 Range/Units 05:55 05:55 RBC 3.65 L (3.80-5.40) m/uL Hgb 9.7 L (11.4-16.0) gm/dL Hct 32.5 L (34.0-46.0) % MCHC 29.9 L (31.0-37.0) g/dL RDW 16.8 H (11.5-15.5) % Plt Count 90 L D (150-450) k/uL Chloride 108 H (98-107) mmol/L BUN 18 H (7-17) mg/dL Glucose 101 H (74-99) mg/dL Alkaline Phosphatase 128 H (38-126) U/L Total Protein 6.1 L (6.3-8.2) g/dL Albumin 3.0 L (3.5-5.0) g/dL Microbiology - Last 24 Hours (Table) 02/11/24 07:20 Blood Culture - Preliminary Blood 02/11/24 07:30 Blood Culture - Preliminary Blood Assessment and Plan Assessment: 1. Generalized weakness with fall 2. Positive urinary tract infection 3. Left hip pain. X-ray ordered 4. Chronic systolic congestive heart failure maintained on home O2 5. History of valvular heart disease with previous history of mitral valve repair and aortic valve replacement 6. History of nonischemic cardiomyopathy 7. History of COPD 8. History of A. fib 9. History of coronary artery disease with history of coronary artery bypass graft surgery 10. History of partial thyroidectomy 11. History of pulmonary hypertension 12 history of osteoarthritis DVT prophylaxis Lovenox. GI prophylaxis Protonix Cardiology service is consulted Patient started on IV antibiotics Urine and blood culture ordered Hip x-ray ordered Cardiology services consulted PT OT service is consulted
[2024-02-15] MEDS: ALPRAZolam 0.25 MG TAB PO PRN (21:16)
[2024-02-16 06:06] LABS: ALT 11 U/L (4-34); AST 21 U/L (14-36); African American GFR (CKD) >90 (>60 ml/min/1.73 sqM); Albumin 2.8 g/dL (3.5-5.0); Albumin/Globulin Ratio 0.9; Alkaline Phosphatase 130 U/L (38-126); Anion Gap 6 mmol/L; Blood Urea Nitrogen 20 mg/dL (7-17); Calcium 8.1 mg/dL (8.4-10.2); Carbon Dioxide 29 mmol/L (22-30); Chloride 104 mmol/L (98-107); Glucose 104 mg/dL (74-99); Non-African American GFR(CKD) 86 (>60 ml/min/1.73 sqM); Sodium 139 mmol/L (137-145); Total Bilirubin 0.5 mg/dL (0.2-1.3); Total Protein 5.8 g/dL (6.3-8.2)
[2024-02-16 06:54] LABS: Anisocytosis Slight; Basophils % (A) 0 %; Eosinophils # (A) 0.2 k/uL (0-0.7); Eosinophils % (A) 3 %; HCT 34.3 % (34.0-46.0); HGB 10.4 gm/dL (11.4-16.0); Hypochromasia Marked; Lymphocytes # (A) 1.6 k/uL (1.0-4.8); Lymphocytes % (A) 21 %; MCH 26.8 pg (25.0-35.0); MCHC 30.2 g/dL (31.0-37.0); MCV 88.9 fL (80.0-100.0); Mean Platelet Volume 8.8; Monocytes # (A) 0.4 k/uL (0-1.0); Monocytes % (A) 5 %; Neutrophils # (A) 5.2 k/uL (1.3-7.7); Neutrophils % (A) 67 %; RBC 3.86 m/uL (3.80-5.40); RDW 16.6 % (11.5-15.5); WBC 7.7 k/uL (3.8-10.6)
[2024-02-16 07:02] LABS: Platelet Count 236 k/uL (150-450)
--- NOTE | 2024-02-16 17:35 | CDI ---
Documentation Clarification Form Date: 02/16/2024 05:33:59 PM From: Mercedes Soto RN, CCDS Phone: [phone] Admit Date: 02/11/2024 06:55:00 AM Patient Name: Mirella San Visit Number: [id number] Discharge Date: ATTENTION: The Clinical Documentation Specialists (CDI) and [facility] Coding Staff appreciate your assistance in clarifying documentation. Please respond to the clarification below the line at the bottom and electronically sign. The CDI & [facility] Coding staff will review the response and follow-up if needed. Please note: Queries are made part of the Legal Health Record. If you have any questions, please contact the author of this message via ITS. Dr. Olya Olson The Registered Dietitian assessment starting on 02/13/24 indicates this patient meets criteria for malnutrition severe, chronic. Based on this information and the findings below, is there an additional diagnosis that is clinically appropriate for this patient? Clinical Indicators: 78-year-old female present complaint of generalized weakness, fall with low back pain. She was ruled in for acute urinary tract infection. She had a nutrition assessment complete on 02/13/24. Current BMI: 21.6 PMH: CHF, COPD, Diverticular disease, UTI Poor oral intake 0-25% Xm=793, K=3.3, Tvewtso=155 RD Consult Assessment: Underweight, 4 ft 11 in BMI 21.6 involuntary weight loss > 10% of UBW in 6 months Malnutrition, severe chronic Treatment: General/healthful diet Chocolate Ensure Plus High Protein TID Monitor PO and supplement intake. Is there an additional diagnosis that is clinically appropriate for this patient? [ ] Mild Protein-Calorie Malnutrition [ x] Moderate Protein-Calorie Malnutrition [ ] Severe Protein-Calorie Malnutrition [ ] No additional diagnosis/Not clinically significant [ ] Other condition, please specify [ ] Unable to Determine (Template Last Revised: March 2023) MTDD
--- NOTE | 2024-02-16 18:19 | P.PN ---
Subjective Progress Note Date: 02/16/24 Mirella San, is an 78 year old female who presented to [facility] emergency room with a chief complaint of generalized weakness, fall with low back pain She was evaluated in the emergency room vital examination on presentation revealed a temperature of 97.8 pulse 131 respiration 18 blood pressure 113/82 pulse ox 97% on 3 L nasal cannula Laboratory data revealed a white blood count of 7.4 hemoglobin 11.6 platelet count 258 BUN 13 creatinine 0.64 urine analysis was positive for leukocyte esterase and 61 white blood cells in high-power field Testing in the emergency room revealed chest x-ray revealed cardiomegaly with central vascular congestion, CT scan of the head and cervical spine revealed no acute fracture or dislocation in the cervical spine and no acute intracranial hemorrhage or midline shift, CT scan of the thoracic and lumbar spine revealed no acute fracture or dislocation, left hip x-ray revealed no definite acute fracture. Patient was admitted to medical floor for further evaluation and treatment On 02/13/2024 for patient's alert and oriented times 3. Patient remains on IV antibiotics. Cardiology services consulted.Current vital signs temp 97.9, heart rate 92, respiratory rate 18, blood pressure 106/61 with pulse ox 100% on 3 L. PT OT services consulted. Patient reports some shortness of breath with activity. Patient denies chest pain. Patient denies nausea vomiting or diarrhea. Patient denies any urinary burning or frequency On 02/14/2024 patient's alert and oriented 3. Antibiotics adjusted to Levaquin based of micro-culture. Patient denies chest pain or shortness of breath. Patient denies nausea vomiting or diarrhea. Patient denies any urinary burning or frequency. Current vital signs temp 97.8, heart rate 57, respiratory rate 15 , blood pressure 98/51 with pulse ox 100% on 2 L On 02/15/2024 patient was seen and examined on the medical floor, she is alert and oriented x 3 in no apparent distress, there is no fever or chills no headache or dizziness no chest pain, she is still having shortness of breath with any activity, occasional cough, no nausea or vomiting no abdominal pain no diarrhea no urinary symptoms. On 02/16/2024 patient was seen and examined on the medical floor, she is alert and oriented x 3 in no apparent distress, she is complaining of severe generalized weakness otherwise she denies any complaints there is no fever or chills no headache or dizziness no chest pain no shortness of breath no cough, no nausea or vomiting no abdominal pain no diarrhea no urinary symptoms. Objective - Vital Signs Vital signs: Vital Signs Temp 97.4 F L 02/16/24 07:22 Pulse 76 02/16/24 11:56 Resp 18 02/16/24 07:22 BP 124/73 02/16/24 07:22 Pulse Ox 93 L 02/16/24 07:22 FiO2 Intake & Output 02/15/24 02/16/24 02/16/24 18:59 06:59 18:59 Output Total 2550 600 Balance -2550 -600 Output: Urine 2550 600 Other: Voiding Method External Catheter External Catheter External Catheter # Bowel Movements 1 - Exam Head normocephalic Neck supple Lungs clear to auscultation bilaterally no wheezing or crackles Heart regular rate and rhythm S1-S2, no rub or gallop Abdomen is soft nontender nondistended positive bowel sounds no hepatosplenomegaly Extremities no edema Neuro alert and orientated to 3 - Labs CBC & Chem 7: 02/16/24 04:33 02/16/24 04:33 Labs: Abnormal Lab Results - Last 24 Hours (Table) 02/16/24 02/16/24 Range/Units 04:33 04:33 Hgb 10.4 L (11.4-16.0) gm/dL MCHC 30.2 L (31.0-37.0) g/dL RDW 16.6 H (11.5-15.5) % Potassium 3.0 L (3.5-5.1) mmol/L BUN 20 H (7-17) mg/dL Glucose 104 H (74-99) mg/dL Calcium 8.1 L (8.4-10.2) mg/dL Alkaline Phosphatase 130 H (38-126) U/L Total Protein 5.8 L (6.3-8.2) g/dL Albumin 2.8 L (3.5-5.0) g/dL Microbiology - Last 24 Hours (Table) 02/11/24 07:20 Blood Culture - Final Blood 02/11/24 07:30 Blood Culture - Final Blood Assessment and Plan Assessment: 1. Generalized weakness with fall 2. Positive urinary tract infection 3. Left hip pain. X-ray ordered 4. Chronic systolic congestive heart failure maintained on home O2 5. History of valvular heart disease with previous history of mitral valve repair and aortic valve replacement 6. History of nonischemic cardiomyopathy 7. History of COPD 8. History of A. fib 9. History of coronary artery disease with history of coronary artery bypass graft surgery 10. History of partial thyroidectomy 11. History of pulmonary hypertension 12 history of osteoarthritis DVT prophylaxis Lovenox. GI prophylaxis Protonix Cardiology service is consulted Patient started on IV antibiotics Urine and blood culture ordered Hip x-ray ordered Cardiology services consulted PT OT service is consulted
[2024-02-17 08:26] LABS: Basophils # (A) 0.06 X 10*3/uL (0.00-0.10); Basophils % (A) 0.8 %; Eosinophils # (A) 0.44 X 10*3/uL (0.04-0.35); Eosinophils % (A) 5.6 %; HCT 34.3 % (37.2-46.3); HGB 9.7 g/dL (12.0-15.0); Lymphocytes # (A) 1.39 X 10*3/uL (0.90-5.00); Lymphocytes % (A) 17.7 %; MCH 25.5 pg (27.0-32.0); MCHC 28.3 g/dL (32.0-37.0); MCV 90.3 FL (80.0-97.0); Mean Platelet Volume 10.2 FL (9.5-12.2); Monocytes # (A) 0.62 X 10*3/uL (0.20-1.00); Monocytes % (A) 7.9 %; NRBC Per 100 WBC 0 X 10*3/uL (0.00-0.01); Neutrophils # (A) 5.21 X 10*3/uL (1.80-7.70); Neutrophils % (A) 66.1 %; Platelet Count 262 X 10*3/uL (140-440); WBC 7.87 X 10*3/uL (4.50-10.00)
[2024-02-17 08:42] LABS: ALT 12 U/L (8-44); AST 18 U/L (13-35); Albumin 3.5 g/dL (3.8-4.9); Albumin/Globulin Ratio 1.25 Ratio (1.60-3.17); Alkaline Phosphatase 142 U/L (41-126); BUN/Creat Ratio 28.86 Ratio (12.00-20.00); Blood Urea Nitrogen 20.2 mg/dL (9.0-27.0); Calcium 8.9 mg/dL (8.7-10.3); Carbon Dioxide 31.5 mmol/L (21.6-31.8); Chloride 101 mmol/L (96-109); Globulin 2.8 g/dL (1.6-3.3); Glucose 106 mg/dL (70-110); Potassium 3.2 mmol/L (3.5-5.5); Sodium 143 mmol/L (135-145); Total Bilirubin 0.5 mg/dL (0.3-1.2); Total Protein 6.3 g/dL (6.2-8.2)
--- NOTE | 2024-02-17 11:14 | P.PN ---
Subjective Progress Note Date: 02/17/24 Mirella San, is an 78 year old female who presented to [facility] emergency room with a chief complaint of generalized weakness, fall with low back pain She was evaluated in the emergency room vital examination on presentation revealed a temperature of 97.8 pulse 131 respiration 18 blood pressure 113/82 pulse ox 97% on 3 L nasal cannula Laboratory data revealed a white blood count of 7.4 hemoglobin 11.6 platelet count 258 BUN 13 creatinine 0.64 urine analysis was positive for leukocyte esterase and 61 white blood cells in high-power field Testing in the emergency room revealed chest x-ray revealed cardiomegaly with central vascular congestion, CT scan of the head and cervical spine revealed no acute fracture or dislocation in the cervical spine and no acute intracranial hemorrhage or midline shift, CT scan of the thoracic and lumbar spine revealed no acute fracture or dislocation, left hip x-ray revealed no definite acute fracture. Patient was admitted to medical floor for further evaluation and treatment On 02/13/2024 for patient's alert and oriented times 3. Patient remains on IV antibiotics. Cardiology services consulted.Current vital signs temp 97.9, heart rate 92, respiratory rate 18, blood pressure 106/61 with pulse ox 100% on 3 L. PT OT services consulted. Patient reports some shortness of breath with activity. Patient denies chest pain. Patient denies nausea vomiting or diarrhea. Patient denies any urinary burning or frequency On 02/14/2024 patient's alert and oriented 3. Antibiotics adjusted to Levaquin based of micro-culture. Patient denies chest pain or shortness of breath. Patient denies nausea vomiting or diarrhea. Patient denies any urinary burning or frequency. Current vital signs temp 97.8, heart rate 57, respiratory rate 15 , blood pressure 98/51 with pulse ox 100% on 2 L On 02/15/2024 patient was seen and examined on the medical floor, she is alert and oriented x 3 in no apparent distress, there is no fever or chills no headache or dizziness no chest pain, she is still having shortness of breath with any activity, occasional cough, no nausea or vomiting no abdominal pain no diarrhea no urinary symptoms. On 02/16/2024 patient was seen and examined on the medical floor, she is alert and oriented x 3 in no apparent distress, she is complaining of severe generalized weakness otherwise she denies any complaints there is no fever or chills no headache or dizziness no chest pain no shortness of breath no cough, no nausea or vomiting no abdominal pain no diarrhea no urinary symptoms. on 02/17/2024 patient's alert and oriented 3. Patient remains on IV Levaquin. Discussed case with case management discharge planning to [facility]. Patient complain of generalized weakness. Patient denies chest pain or shortness breath. Patient denies nausea vomiting or diarrhea. Patient denies any urinary burning or frequency Objective - Vital Signs Vital signs: Vital Signs Temp 98.1 F 02/17/24 07:24 Pulse 106 H 02/17/24 09:13 Resp 17 02/17/24 07:24 BP 98/55 02/17/24 07:24 Pulse Ox 98 02/17/24 09:02 FiO2 Intake & Output 02/16/24 02/17/24 02/17/24 18:59 06:59 18:59 Output Total 200 300 Balance -200 -300 Weight 48.534 kg Output: Urine 200 300 Other: Voiding Method External Catheter Diaper Diaper # Voids 1 1 # Bowel Movements 1 - Exam Head normocephalic Neck supple Lungs clear to auscultation bilaterally no wheezing or crackles Heart regular rate and rhythm S1-S2, no rub or gallop Abdomen is soft nontender nondistended positive bowel sounds no hepatosplenomegaly Extremities no edema Neuro alert and orientated to 3 - Labs CBC & Chem 7: 02/17/24 04:30 02/17/24 04:30 Labs: Abnormal Lab Results - Last 24 Hours (Table) 02/17/24 02/17/24 Range/Units 04:30 04:30 RBC 3.80 L (4.10-5.20) X 10*6/uL Hgb 9.7 L (12.0-15.0) g/dL Hct 34.3 L (37.2-46.3) % MCH 25.5 L (27.0-32.0) pg MCHC 28.3 L (32.0-37.0) g/dL RDW 17.0 H (11.5-14.5) % Immature Gran # 0.15 H (0.00-0.04) X 10*3/uL Eosinophils # 0.44 H (0.04-0.35) X 10*3/uL Potassium 3.2 L (3.5-5.5) mmol/L BUN/Creatinine Ratio 28.86 H (12.00-20.00) Ratio Alkaline Phosphatase 142 H (41-126) U/L Albumin 3.5 L (3.8-4.9) g/dL Albumin/Globulin Ratio 1.25 L (1.60-3.17) Ratio Microbiology - Last 24 Hours (Table) 02/11/24 07:20 Blood Culture - Final Blood 02/11/24 07:30 Blood Culture - Final Blood Assessment and Plan Assessment: 1. Generalized weakness with fall 2. Positive urinary tract infection 3. Left hip pain. X-ray ordered 4. Chronic systolic congestive heart failure maintained on home O2 5. History of valvular heart disease with previous history of mitral valve repair and aortic valve replacement 6. History of nonischemic cardiomyopathy 7. History of COPD 8. History of A. fib 9. History of coronary artery disease with history of coronary artery bypass graft surgery 10. History of partial thyroidectomy 11. History of pulmonary hypertension 12 history of osteoarthritis DVT prophylaxis Lovenox. GI prophylaxis Protonix Cardiology service is consulted Patient started on IV antibiotics Urine and blood culture ordered Hip x-ray ordered Cardiology services consulted PT OT service is consulted
[2024-02-18 07:12] VITALS: RESP 17
--- NOTE | 2024-02-18 10:43 | P.DS ---
Providers Date of admission: 02/11/24 06:55 Expected date of discharge: 02/18/24 Attending physician: Olya Olson Primary care physician: Olya Olson [facility] Course: Discharge diagnosis 1. Generalized weakness with fall 2. Positive urinary tract infection 3. Left hip pain. X-ray ordered 4. Chronic systolic congestive heart failure maintained on home O2 5. History of valvular heart disease with previous history of mitral valve repair and aortic valve replacement 6. History of nonischemic cardiomyopathy 7. History of COPD 8. History of A. fib 9. History of coronary artery disease with history of coronary artery bypass graft surgery 10. History of partial thyroidectomy 11. History of pulmonary hypertension 12 history of osteoarthritis Hospital course Mirella San, is an 78 year old female who presented to [facility] emergency room with a chief complaint of generalized weakness, fall with low back pain She was evaluated in the emergency room vital examination on presentation revealed a temperature of 97.8 pulse 131 respiration 18 blood pressure 113/82 pulse ox 97% on 3 L nasal cannula Laboratory data revealed a white blood count of 7.4 hemoglobin 11.6 platelet count 258 BUN 13 creatinine 0.64 urine analysis was positive for leukocyte esterase and 61 white blood cells in high-power field Testing in the emergency room revealed chest x-ray revealed cardiomegaly with central vascular congestion, CT scan of the head and cervical spine revealed no acute fracture or dislocation in the cervical spine and no acute intracranial hemorrhage or midline shift, CT scan of the thoracic and lumbar spine revealed no acute fracture or dislocation, left hip x-ray revealed no definite acute fracture. Patient was admitted to medical floor for further evaluation and treatment On 02/13/2024 for patient's alert and oriented times 3. Patient remains on IV antibiotics. Cardiology services consulted.Current vital signs temp 97.9, heart rate 92, respiratory rate 18, blood pressure 106/61 with pulse ox 100% on 3 L. PT OT services consulted. Patient reports some shortness of breath with activity. Patient denies chest pain. Patient denies nausea vomiting or diarrhea. Patient denies any urinary burning or frequency On 02/14/2024 patient's alert and oriented 3. Antibiotics adjusted to Levaquin based of micro-culture. Patient denies chest pain or shortness of breath. Patient denies nausea vomiting or diarrhea. Patient denies any urinary burning or frequency. Current vital signs temp 97.8, heart rate 57, respiratory rate 15, blood pressure 98/51 with pulse ox 100% on 2 L On 02/15/2024 patient was seen and examined on the medical floor, she is alert and oriented x 3 in no apparent distress, there is no fever or chills no headache or dizziness no chest pain, she is still having shortness of breath with any activity, occasional cough, no nausea or vomiting no abdominal pain no diarrhea no urinary symptoms. On 02/16/2024 patient was seen and examined on the medical floor, she is alert and oriented x 3 in no apparent distress, she is complaining of severe generalized weakness otherwise she denies any complaints there is no fever or chills no headache or dizziness no chest pain no shortness of breath no cough, no nausea or vomiting no abdominal pain no diarrhea no urinary symptoms. on 02/17/2024 patient's alert and oriented 3. Patient remains on IV Levaquin. Discussed case with case management discharge planning to [facility]. Patient complain of generalized weakness. Patient denies chest pain or shortness b reath. Patient denies nausea vomiting or diarrhea. Patient denies any urinary burning or frequency On 02/18/2024 patient is alert and oriented 3. Patient will be DC'd to [facility]. Patient will be DC'd on by mouth Levaquin. Patient denies chest pain or shortness of breath. Patient denies nausea vomiting or diarrhea. Patient Condition at Discharge: Stable Plan - Discharge Summary Discharge Rx Participant: Yes New Discharge Prescriptions: No Action Aspirin 81 mg PO DAILY 30 Days #30 tab Ascorbic Acid [Vitamin C] 500 mg PO DAILY 30 Days #30 tab Cholecalciferol (Vitamin D3) [Vitamin D3 (125 MCG = 5,000 IU)] 125 mcg PO DAILY 30 Days #30 cap Empagliflozin [Jardiance] 10 mg PO DAILY 30 Days #30 tablet HYDROcodone/APAP 10-325MG [Laughlin 10-325] 1 tab PO Q8H PRN 3 Days #12 tab PRN Reason: Pain Bumetanide [BUMEX] 1 mg PO DAILY@1600 Ipratropium-Albuterol Nebulize [Duoneb 0.5 mg-3 mg/3 ml Soln] 3 ml INHALATION RT-Q6H PRN PRN Reason: Shortness Of Breath Levothyroxine Sodium [Synthroid] 150 mcg PO DAILY Bumetanide [BUMEX] 2 mg PO DAILY@0900 Discharge Medication List Ascorbic Acid [Vitamin C] 500 mg PO DAILY 30 Days #30 tab 11/05/23 [Rx] Aspirin 81 mg PO DAILY 30 Days #30 tab 11/05/23 [Rx] Cholecalciferol (Vitamin D3) [Vitamin D3 (125 MCG = 5,000 IU)] 125 mcg PO DAILY 30 Days #30 cap 11/05/23 [Rx] Ipratropium-Albuterol Nebulize [Duoneb 0.5 mg-3 mg/3 ml Soln] 3 ml INHALATION RT-Q6H PRN 11/20/23 [History] Levothyroxine Sodium [Synthroid] 150 mcg PO DAILY 11/20/23 [History] Empagliflozin [Jardiance] 10 mg PO DAILY 30 Days #30 tablet 12/31/23 [Rx] HYDROcodone/APAP 10-325MG [Laughlin 10-325] 1 tab PO Q8H PRN 3 Days #12 tab 12/31/23 [Rx] Bumetanide [BUMEX] 1 mg PO DAILY@1600 02/11/24 [History] Bumetanide [BUMEX] 2 mg PO DAILY@0900 02/11/24 [History] Follow up Appointment(s)/Referral(s): Olya Olson MD [Primary Care Provider] - 1-2 days
[2024-02-18 14:54] VITALS: BP 94/56; PULSE 101; TEMP 98.2
== END 2024-02-18 16:36 | DRG 689 ==
LOC: EC 03:45 → 4SSUR 06:55 → 3SCARD 15:26 → 4SSUR 02-13 22:35
PROVIDERS: ADMIT Internal Medicine; ATTEND Internal Medicine
DX: N39.0 Urinary tract infection, site not specified (principal); J96.20 Acute and chronic respiratory failure, unspecified whether with hypoxia or hypercapnia; E44.0 Moderate protein-calorie malnutrition; I42.8 Other cardiomyopathies; I50.22 Chronic systolic (congestive) heart failure; I27.20 Pulmonary hypertension, unspecified; I11.0 Hypertensive heart disease with heart failure; J44.9 Chronic obstructive pulmonary disease, unspecified; M06.89 Other specified rheumatoid arthritis, multiple sites; I48.0 Paroxysmal atrial fibrillation; Z99.81 Dependence on supplemental oxygen; R54 Age-related physical debility; E03.9 Hypothyroidism, unspecified; Z95.2 Presence of prosthetic heart valve; I25.10 Atherosclerotic heart disease of native coronary artery without angina pectoris; W18.30XA Fall on same level, unspecified, initial encounter; Z96.619 Presence of unspecified artificial shoulder joint; Z96.642 Presence of left artificial hip joint; Z95.1 Presence of aortocoronary bypass graft; Z90.89 Acquired absence of other organs; Z98.1 Arthrodesis status; Z87.891 Personal history of nicotine dependence; Z79.82 Long term (current) use of aspirin; Z79.890 Hormone replacement therapy; Z79.84 Long term (current) use of oral hypoglycemic drugs; Z68.21 Body mass index [BMI] 21.0-21.9, adult; Z79.899 Other long term (current) drug therapy; Z88.8 Allergy status to other drugs, medicaments and biological substances
CPT/HCPCS: 36410; 36415; 70450; 71045; 72125; 72128; 72131; 73502; 76937; 80048; 80053; 81001; 83605; 83735; 84439; 84443; 84484; 85025; 85610; 85730; 87040; 87077; 87086; 87186; 93005; 94640; 94760; 96361; 96365; 96366; 96375; 96376; 99285

== ENCOUNTER 2024-03-22 06:13 | Inpatient (IN) | payer MEDICARE, OTHER ==
[2024-03-22 06:43] LABS: Anisocytosis Slight; Basophils % (A) 0 %; Eosinophils # (A) 0.2 k/uL (0-0.7); Eosinophils % (A) 2 %; HCT 38.5 % (34.0-46.0); HGB 12.4 gm/dL (11.4-16.0); Hypochromasia Marked; Lymphocytes # (A) 1.2 k/uL (1.0-4.8); Lymphocytes % (A) 13 %; MCH 27.4 pg (25.0-35.0); MCHC 32.2 g/dL (31.0-37.0); MCV 85.2 fL (80.0-100.0); Mean Platelet Volume 7.8; Monocytes # (A) 0.6 k/uL (0-1.0); Monocytes % (A) 7 %; Neutrophils # (A) 6.7 k/uL (1.3-7.7); Neutrophils % (A) 74 %; Platelet Count 245 k/uL (150-450); RBC 4.53 m/uL (3.80-5.40); RDW 17.7 % (11.5-15.5)
[2024-03-22 07:03] LABS: INR 1.1 (<1.2); Prothrombin Time 11.8 sec (10.0-12.5)
--- NOTE | 2024-03-22 07:14 | ED ---
SOB HPI - General Chief Complaint: Shortness of Breath Stated Complaint: Difficulty Breathing Time Seen by Provider: 03/22/24 06:15 Source: patient, EMS, RN notes reviewed Mode of arrival: EMS Limitations: no limitations - History of Present Illness Initial Comments: 78-year-old female presents emergency department via EMS from home for complaint of shortness of breath. Patient had increasing shortness of breath last few days. Patient does have COPD oxygen dependent also CHF. States she is very shaky, history of atrial fibrillation. Patient denies abdominal pain she has noted some intermittent chest discomfort. Patient denies any significant leg pain or swelling out of the usual. No focal weakness - Related Data Home Medications Medication Instructions Recorded Confirmed Ipratropium-Albuterol Nebulize 3 ml INHALATION RT-Q6H PRN 11/20/23 02/11/24 [Duoneb 0.5 mg-3 mg/3 ml Soln] Levothyroxine Sodium [Synthroid] 150 mcg PO DAILY 11/20/23 02/11/24 Bumetanide [BUMEX] 1 mg PO DAILY@1600 02/11/24 02/11/24 Bumetanide [BUMEX] 2 mg PO DAILY@0900 02/11/24 02/11/24 Previous Rx's Medication Instructions Recorded Ascorbic Acid [Vitamin C] 500 mg PO DAILY 30 Days #30 tab 11/05/23 Aspirin 81 mg PO DAILY 30 Days #30 tab 11/05/23 Cholecalciferol (Vitamin D3) 125 mcg PO DAILY 30 Days #30 cap 11/05/23 [Vitamin D3 (125 MCG = 5,000 IU)] Empagliflozin [Jardiance] 10 mg PO DAILY 30 Days #30 tablet 12/31/23 ALPRAZolam [Xanax] 0.25 mg PO HS PRN 3 Days #3 tab 02/18/24 ALPRAZolam [Xanax] 0.25 mg PO HS PRN 3 Days #3 tab 02/18/24 HYDROcodone/APAP 10-325MG [Sparkill 1 each PO Q8H PRN 3 Days #9 tab 02/18/24 10-325] HYDROcodone/APAP 10-325MG [Sparkill 1 tab PO Q8H PRN 3 Days #12 tab 02/18/24 10-325] Levofloxacin [Levaquin] 250 mg PO DAILY 5 Days #5 tablet 02/18/24 Allergies Allergy/AdvReac Type Severity Reaction Status Date / Time lisinopril AdvReac Cough Verified 03/22/24 06:26 Review of Systems ROS Statement: Those systems with pertinent positive or pertinent negative responses have been documented in the HPI. ROS Other: All systems not noted in ROS Statement are negative. Past Medical History Past Medical History: Atrial Fibrillation, Heart Failure, COPD, GERD/Reflux, Osteoarthritis (OA), Renal Disease, Rheumatoid Arthritis (RA), Supraventricular Tachycardia (SVT), Thyroid Disorder Additional Past Medical History / Comment(s): Valvular heart disease with previous aortic valve replacement and a mitral valve repair, congestion heart failure, Paroxysmal Afib, history of SVT, history of nonsustained VT, SOB with exertion, home O2 at 2L/NC usually prn but lately ATC, arthritis, RA several joints, current L elbow pain/swelling-had "injection", nephrolithiasis, hypoth yroid, diverticular dx, UTI, iron deficiency anemia. 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 History of Any Multi-Drug Resistant Organisms: None Reported Past Surgical History: Coronary Bypass/CABG, Heart Catheterization, Hysterectomy, Joint Replacement, Orthopedic Surgery Additional Past Surgical History / Comment(s): Geoff total knees arthroplasty,lt hip arthroplasty, goiter removed 1962, partial thyroidectomy, cataracts removed with lens implants, REVERSE TOTAL RIGHT SHOULDER; Rotator cuff R shoulder, cervical fusion/injections, colonoscopy 2016(next after 5yr), MATTHEW, valve surgery at [facility] 10/13/17 Prosthetic Aortic valve and mitral valve repair. Total abdominal hysterectomy in the . Past Anesthesia/Blood Transfusion Reactions: Postoperative Nausea & Vomiting (PONV) Past Psychological History: No Psychological Hx Reported Smoking Status: Former smoker - Past Family History Father Family Medical History: Cancer, Myocardial Infarction (NM) Additional Family Medical History / Comment(s): in his 80's of a mi. Colon cancer. Mother Family Medical History: No Reported History Additional Family Medical History / Comment(s): age 88 . hx smoking. Daughter(s) Family Medical History: Cancer Additional Family Medical History / Comment(s): from vulvar cancer. General Exam Limitations: no limitations General appearance: alert, in no apparent distress Head exam: Present: atraumatic, normocephalic, normal inspection ENT exam: Present: normal exam, mucous membranes moist Neck exam: Present: normal inspection. Absent: tenderness, meningismus, lymphadenopathy Respiratory exam: Present: respiratory distress, wheezes, rales. Absent: normal lung sounds bilaterally, rhonchi, stridor Cardiovascular Exam: Present: normal rhythm, tachycardia, normal heart sounds. Absent: systolic murmur, diastolic murmur, rubs, gallop, clicks GI/Abdominal exam: Present: soft, normal bowel sounds. Absent: distended, tend erness, guarding, rebound, rigid Course Vital Signs 03/22/24 03/22/24 03/22/24 06:18 06:38 07:23 Temperature 97.2 F L Pulse Rate 126 H 129 H Respiratory 20 20 20 Rate Blood Pressure 120/69 92/68 O2 Sat by Pulse 97 100 Oximetry 03/22/24 03/22/24 03/22/24 07:30 08:00 08:30 Temperature Pulse Rate 129 H 101 H 124 H Respiratory 20 19 17 Rate Blood Pressure 92/68 112/61 101/71 O2 Sat by Pulse 100 100 100 Oximetry Medical Decision Making - Medical Decision Making Was pt. sent in by a medical professional or institution (, PA, BUSINESS TEST ANALYST, urgent care, hospital, or fdc...) When possible be specific @ -No Did you speak to anyone other than the patient for history (EMS, parent, family, police, friend...)? What history was obtained from this source @ -No Did you review nursing and triage notes (agree or disagree)? Why? @ -I reviewed and agree with nursing and triage notes Were old charts reviewed (outside hosp., previous admission, EMS record, old EKG, old radiological studies, urgent care reports/EKG's, fdc records)? Report findings @ -No old charts were reviewed Differential Diagnosis (chest pain, altered mental status, abdominal pain women, abdominal pain men, vaginal bleeding, weakness, fever, dyspnea, syncope, hea dache, dizziness, GI bleed, back pain, seizure, CVA, palpatations, mental health, musculoskeletal)? @ -Differential Dyspnea: Coronary syndrome, arrhythmia, tamponade, asthma, COPD, pulmonary embolism, pneumonia, pneumothorax, pulmonary effusion, anaphylaxis, diabetic ketoacidosis, flailed chest, pulmonary contusion, diaphragmatic rupture, anemia, neuromuscular, this is not meant to be an all-inclusive list. EKG interpreted by me (3pts min.). @ -As above X-rays interpreted by me (1pt min.). @Chest x-ray shows chronic changes, mild pulmonary edema CT interpreted by me (1pt min.). @ -None done U/S interpreted by me (1pt. min.). @ -None done What testing was considered but not performed or refused? (CT, X-rays, U/S, labs)? Why? @ -None What meds were considered but not given or refused? Why? @ -None Did you discuss the management of the patient with other professionals (professionals i.e. , PA, BUSINESS TEST ANALYST, lab, RT, psych nurse, social media marketer, dba, teacher, fiscal officer, casey saw operator)? Give summary @ -Dr. tate for admission Was smoking cessation discussed for >3mins.? @ -No Was critical care preformed (if so, how long)? @ -No Were there social determinants of health that impacted care today? How? (Homelessness, low income, unemployed, alcoholism, drug addiction, transportation, low edu. Level, literacy, decrease access to med. care, intermediate, rehab)? @ -No Was there de-escalation of care discussed even if they declined (Discuss DNR or withdrawal of care, Hospice)? DNR status @ -No What co-morbidities impacted this encounter? (DM, HTN, Smoking, COPD, CAD, Cancer, CVA, ARF, Chemo, Hep., AIDS, mental health diagnosis, sleep apnea, morbid obesity)? @ -COPD, CHF Was patient admitted / discharged? Hospital course, mention meds given and route, prescriptions, significant lab abnormalities, going to OR and other pertinent info. @ -Admitted patient presented to the emergency department for increasing dyspnea, weakness patient has atrial flutter, CHF, COPD exacerbation patient was given treatments, steroids, we continued on diuresis, monitoring and further treatment Undiagnosed new problem with uncertain prognosis? @ -No Drug Therapy requiring intensive monitoring for toxicity (Heparin, Nitro, Insulin, Cardizem)? @ -No Were any procedures done? @ -No Diagnosis/symptom? @ -COPD with CHF, atrial flutter Acute, or Chronic, or Acute on Chronic? @ -Acute Uncomplicated (without systemic symptoms) or Complicated (systemic symptoms)? @ -Complicated Side effects of treatment? @ -No Exacerbation, Progression, or Severe Exacerbation? @ -Exacerbation Poses a threat to life or bodily function? How? (Chest pain, USA, NM, pneumonia, PE, COPD, DKA, ARF, appy, cholecystitis, CVA, Diverticulitis, Homicidal, Suicidal, threat to staff... and all critical care pts) @ -Yes cardiac, respiratory failure - Lab Data Result diagrams: 03/22/24 06:16 03/22/24 06:16 Lab Results 03/22/24 03/22/24 03/22/24 Range/Units 06:16 06:16 06:16 WBC 9.0 (3.8-10.6) k/uL RBC 4.53 (3.80-5.40) m/uL Hgb 12.4 (11.4-16.0) gm/dL Hct 38.5 (34.0-46.0) % MCV 85.2 (80.0-100.0) fL MCH 27.4 (25.0-35.0) pg MCHC 32.2 (31.0-37.0) g/dL RDW 17.7 H (11.5-15.5) % Plt Count 245 (150-450) k/uL MPV 7.8 Neutrophils % 74 % Lymphocytes % 13 % Monocytes % 7 % Eosinophils % 2 % Basophils % 0 % Neutrophils # 6.7 (1.3-7.7) k/uL Lymphocytes # 1.2 (1.0-4.8) k/uL Monocytes # 0.6 (0-1.0) k/uL Eosinophils # 0.2 (0-0.7) k/uL Basophils # 0.0 (0-0.2) k/uL Hypochromasia Marked Anisocytosis Slight PT 11.8 (10.0-12.5) sec INR 1.1 (<1.2) APTT 21.4 L (22.0-30.0) sec Sodium 135 L (137-145) mmol/L Potassium 3.2 L (3.5-5.1) mmol/L Chloride 94 L (98-107) mmol/L Carbon Dioxide 29 (22-30) mmol/L Anion Gap 12 mmol/L BUN 28 H (7-17) mg/dL Creatinine 0.72 (0.52-1.04) mg/dL Est GFR (CKD-EPI)AfAm >90 (>60 ml/min/1.73 sqM) Est GFR (CKD-EPI)NonAf 80 (>60 ml/min/1.73 sqM) Glucose 129 H (74-99) mg/dL Plasma Lactic Acid Wilfred (0.7-2.0) mmol/L Calcium 9.3 (8.4-10.2) mg/dL Magnesium 2.1 (1.6-2.3) mg/dL Total Bilirubin 2.4 H (0.2-1.3) mg/dL AST 57 H (14-36) U/L ALT 24 (4-34) U/L Alkaline Phosphatase 118 (38-126) U/L Troponin I (0.000-0.034) ng/mL NT-Pro-B Natriuret Pep 3610 pg/mL Total Protein 7.9 (6.3-8.2) g/dL Albumin 4.2 (3.5-5.0) g/dL 03/22/24 03/22/24 Range/Units 06:16 06:16 WBC (3.8-10.6) k/uL RBC (3.80-5.40) m/uL Hgb (11.4-16.0) gm/dL Hct (34.0-46.0) % MCV (80.0-100.0) fL MCH (25.0-35.0) pg MCHC (31.0-37.0) g/dL RDW (11.5-15.5) % Plt Count (150-450) k/uL MPV Neutrophils % % Lymphocytes % % Monocytes % % Eosinophils % % Basophils % % Neutrophils # (1.3-7.7) k/uL Lymphocytes # (1.0-4.8) k/uL Monocytes # (0-1.0) k/uL Eosinophils # (0-0.7) k/uL Basophils # (0-0.2) k/uL Hypochromasia Anisocytosis PT (10.0-12.5) sec INR (<1.2) APTT (22.0-30.0) sec Sodium (137-145) mmol/L Potassium (3.5-5.1) mmol/L Chloride (98-107) mmol/L Carbon Dioxide (22-30) mmol/L Anion Gap mmol/L BUN (7-17) mg/dL Creatinine (0.52-1.04) mg/dL Est GFR (CKD-EPI)AfAm (>60 ml/min/1.73 sqM) Est GFR (CKD-EPI)NonAf (>60 ml/min/1.73 sqM) Glucose (74-99) mg/dL Plasma Lactic Acid Wilfred 3.1 H* (0.7-2.0) mmol/L Calcium (8.4-10.2) mg/dL Magnesium (1.6-2.3) mg/dL Total Bilirubin (0.2-1.3) mg/dL AST (14-36) U/L ALT (4-34) U/L Alkaline Phosphatase (38-126) U/L Troponin I 0.026 (0.000-0.034) ng/mL NT-Pro-B Natriuret Pep pg/mL Total Protein (6.3-8.2) g/dL Albumin (3.5-5.0) g/dL - EKG Data -: EKG Interpreted by In EKG Comments: EKG performed at 6: 16 sinus tachycardia rate of 129 IA 182 QRS 96 QT/QTc 378/454 EKG performed at 7: 54 atrial flutter with a rate of 108 QRS 94 QT/QTc 272/336 Disposition Clinical Impression: COPD (chronic obstructive pulmonary disease), CHF (congestive heart failure), Atrial flutter Disposition: ADMITTED IP TO THIS HOSP Condition: Fair Time of Disposition: 08:14
[2024-03-22 07:29] LABS: ALT 24 U/L (4-34); AST 57 U/L (14-36); African American GFR (CKD) >90 (>60 ml/min/1.73 sqM); Albumin 4.2 g/dL (3.5-5.0); Alkaline Phosphatase 118 U/L (38-126); Anion Gap 12 mmol/L; Blood Urea Nitrogen 28 mg/dL (7-17); Calcium 9.3 mg/dL (8.4-10.2); Carbon Dioxide 29 mmol/L (22-30); Chloride 94 mmol/L (98-107); Glucose 129 mg/dL (74-99); Magnesium 2.1 mg/dL (1.6-2.3); Non-African American GFR(CKD) 80 (>60 ml/min/1.73 sqM); Potassium 3.2 mmol/L (3.5-5.1); Sodium 135 mmol/L (137-145); Total Bilirubin 2.4 mg/dL (0.2-1.3); Total Protein 7.9 g/dL (6.3-8.2)
[2024-03-22 07:36] LABS: NT-Pro-B-Type Natriuretic Pept 3610 pg/mL
[2024-03-22 07:37] LABS: Partial Thromboplastin Time 21.4 sec (22.0-30.0)
--- NOTE | 2024-03-22 07:38 | XR ---
EXAMINATION TYPE: XR chest 2V DATE OF EXAM: 03/22/2024 COMPARISON: 02/11/2024 HISTORY: Shortness of breath TECHNIQUE: Frontal and lateral views of the chest are obtained. FINDINGS: Scattered senescent parenchymal changes noted. Hyperinflation compatible with COPD. No evidence for infiltrate. No evidence for atelectasis. Continued cardiomegaly with pulmonary venous congestion much improved from prior examination however. No overt failure at this time. Mild blunting left costophrenic angle could reflect pleural thickenin g versus small effusion. Mediastinal structures are stable and grossly unremarkable. No evidence for hilar prominence. Degenerative changes dorsal spine. IMPRESSION: 1. Continued cardiomegaly with pulmonary venous congestion much improved from prior examination [facility] er. No overt failure at this time. Mild blunting left costophrenic angle could reflect pleural thicke stefan versus small effusion.
[2024-03-22] MEDS ORDERED: NALOXONE 0.4 MG/ML 1 ML VIAL IVP PRN (08:14)
[2024-03-22] MEDS ORDERED: IPRATROPIUM-ALBUTEROL 3 ML NEB INHALATION PRN (08:14)
[2024-03-22] MEDS: methylPREDNISolone SOD SUCCI 125 MG/2 ML VIAL IV STA (08:32)
[2024-03-22] MEDS: ASCORBIC ACID 500 MG TAB PO SCH (09:56)
[2024-03-22] MEDS: LEVOTHYROXINE 75 MCG TAB PO SCH (09:56)
[2024-03-22] MEDS: BUMETANIDE 1 MG TAB PO SCH ×2 (09:57→16:45)
[2024-03-22] MEDS: ASPIRIN 81 MG PO SCH (09:57)
[2024-03-22] MEDS: DAPAGLIFLOZIN PROPANEDIOL 5 MG TABLET PO SCH (09:57)
[2024-03-22] MEDS: CHOLECALCIFEROL 125 MCG (5000 IU) TABLET PO SCH (09:57)
[2024-03-22] MEDS: ENOXAPARIN 40 MG/0.4 ML SYRINGE SQ SCH (10:36)
[2024-03-22] MEDS: IPRATROPIUM-ALBUTEROL 3 ML NEB INHALATION SCH (11:36)
[2024-03-22] MEDS: METOPROLOL TARTRATE 25 MG TAB PO SCH (12:16)
--- NOTE | 2024-03-22 12:23 | P.CRDCN ---
History of Present Illness Consult date: 03/22/24 Consult reason: congestive heart failure History of present illness: This is an 78-year-old female patient of Dr. Flores with past medical history of persistent atrial fibrillation/flutter recently taken off Coumadin, known EF of 37%, history of mitral valve repair, nonischemic cardiomyopathy, pulmonary hypertension, hypothyroidism, chronic hypoxic respiratory failure on home O2. Patient has had multiple hospitalizations for A-fib with RVR and congestive heart failure and has not been seen in the office since 02/20/2023. Patient presented to the hospital due to shortness of breath and mental status changes. Patient is seen in the emergency center and unable to give any information. Patient's is at the bedside. He is states that her mental status is worse now than when he brought her into the hospital. Patient is seen today in the emergency center waiting for bed. Patient is noted to be tachycardic and initially oral metoprolol ordered which was switched to IV as patient is unable to take oral medications. Blood pressure 93/60, heart rate 131, pulse ox 98% on 2 L nasal cannula. Patient is status post IV Solu-Medrol. EKG typical atrial flutter 129 bpm, #2 typical a flutter 108 bpm Chest x-ray: Cardiomegaly with pulmonary venous congestion much improved from prior examination. No overt failure. Laboratory studies: WBC 9, hemoglobin 12.4. Sodium 135, potassium 3.2, chloride 94, BUN 28 creatinine 0.72. Initial lactic acid 3.1 and repeat 1.8. Total bilirubin 2.4, AST 57. Magnesium 2.1. Troponin 0.026. proBNP 3610. Home cardiac medications: Aspirin 81 mg daily, Bumex 2 mg daily and 1 mg in the afternoon, Jardiance 10 mg daily, patient also on levothyroxine 150 mcg daily. Echocardiogram in June 2023 revealed ejection fraction 30-35%, severe pulmonary hypertension, bioprosthetic aortic valve, and mitral valve repair with mild MR Cardiac catheterization history: October 2017 revealing normal coronary arteries Cardioversion 07/05/2022 for atrial flutter with anabaptism of sinus rhythm Aortic valve replacement 10/13/2017 with Magna Ease bioprosthetic aortic valve, mitral valve repair with [employer]bo[employer] annular flex band, clip ligation of the left atrial appendage. MATTHEW performed 01/30/2018 revealed sutured left atrial appendage, bioprosthetic aortic valve with normal functioning, mitral annuloplasty with mitral valve repair and mild mitral regurgitation. Moderate tricuspid regurgitation. No evidence of shunting across the intra-atrial septum. Review Of Systems: At the time of my exam: Patient is unable to provide any information due to mental status changes Physical examination: Gen: This is an 78-year-old female resting in bed and appears to be in no acute distress. VS: reviewed, blood pressure 102/79, heart rate 134, pulse ox 91% on 3 L nasal cannula. HEENT: Head is atraumatic, normocephalic. Pupils equal, round. Sclerae is anicteric. NECK: Supple. No JVD. LUNGS: Lung sounds are clear bilaterally. No intercostal retractions. HEART: Irregular rate and rhythm. 2/6 systolic murmur. ABDOMEN: Soft No tenderness. EXTREMITIES: No pedal edema. No calf tenderness. NEUROLOGICAL: Patient is lethargic. Assessment: Mental status changes Typical atrial flutter with poor rate control Chronic systolic heart failure Cardiomyopathy with EF 35% June 2023 Valvular heart disease s/p mitral valve repair and aortic valve replacement Severe tricuspid regurgitation Pulmonary hypertension Hypothyroidism Chronic hypoxic respiratory failure on home O2 Plan: Resume patient's home cardiac medications Start patient on Lopressor IV push 5 mg every 8 hours until able to take oral Echocardiogram Further recommendations as patient progresses. Thank you kindly for this consultation. Nurse practitioner note has been reviewed, I agree with documented findings and plan of care. Patient was seen and examined. Past Medical History Past Medical History: Atrial Fibrillation, Heart Failure, COPD, GERD/Reflux, Osteoarthritis (OA), Renal Disease, Rheumatoid Arthritis (RA), Supraventricular Tachycardia (SVT), Thyroid Disorder Additional Past Medical History / Comment(s): Valvular heart disease with previous aortic valve replacement and a mitral valve repair, congestion heart failure, Paroxysmal Afib, history of SVT, history of nonsustained VT, SOB with exertion, home O2 at 2L/NC usually prn but lately ATC, arthritis, RA several joints, current L elbow pain/swelling-had "injection", nephrolithiasis, hypothyroid, diverticular dx, UTI, iron deficiency anemia. 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 History of Any Multi-Drug Resistant Organisms: None Reported Past Surgical History: Coronary Bypass/CABG, Heart Catheterization, Hysterectomy, Joint Replacement, Orthopedic Surgery Additional Past Surgical History / Comment(s): Geoff total knees arthroplasty,lt hip arthroplasty, goiter removed 1962, partial thyroidectomy, cataracts removed with lens implants, REVERSE TOTAL RIGHT SHOULDER; Rotator cuff R shoulder, cervical fusion/injections, colonoscopy 2016(next after 5yr), MATTHEW, valve surgery at [facility] 10/13/17 Prosthetic Aortic valve and mitral valve repair. Total abdominal hysterectomy in the 1980s. Past Anesthesia/Blood Transfusion Reactions: Postoperative Nausea & Vomiting (PONV) Past Psychological History: No Psychological Hx Reported Smoking Status: Former smoker - Past Family History Father Family Medical History: Cancer, Myocardial Infarction ([place]) Additional Family Medical History / Comment(s): in his 80's of a mi. Colon cancer. Mother Family Medical History: No Reported History Additional Family Medical History / Comment(s): age 88 . hx smoking. Daughter(s) Family Medical History: Cancer Additional Family Medical History / Comment(s): from vulvar cancer. Medications and Allergies Home Medications Medication Instructions Recorded Confirmed Type Ascorbic Acid [Vitamin C] 500 mg PO DAILY 30 Days #30 tab 11/05/23 03/22/24 Rx Aspirin 81 mg PO DAILY 30 Days #30 tab 11/05/23 03/22/24 Rx Cholecalciferol (Vitamin D3) 125 mcg PO DAILY 30 Days #30 cap 11/05/23 03/22/24 Rx [Vitamin D3 (125 MCG = 5,000 IU)] Ipratropium-Albuterol Nebulize 3 ml INHALATION RT-Q6H PRN 11/20/23 03/22/24 History [Duoneb 0.5 mg-3 mg/3 ml Soln] Levothyroxine Sodium [Synthroid] 150 mcg PO DAILY 11/20/23 03/22/24 History Empagliflozin [Jardiance] 10 mg PO DAILY 30 Days #30 tablet 12/31/23 03/22/24 Rx Bumetanide [BUMEX] 1 mg PO DAILY@1600 02/11/24 03/22/24 History Bumetanide [BUMEX] 2 mg PO DAILY@0900 02/11/24 03/22/24 History ALPRAZolam [Xanax] 0.25 mg PO HS PRN 3 Days #3 tab 02/18/24 03/22/24 Rx HYDROcodone/APAP 10-325MG [[place] 1 tab PO Q8H PRN 3 Days #12 tab 02/18/24 03/22/24 Rx 10-325] Allergies Allergy/AdvReac Type Severity Reaction Status Date / Time lisinopril AdvReac Cough Verified 03/22/24 10:11 Physical Exam Vitals: Vital Signs Temp Pulse Resp BP Pulse Ox 03/22/24 11:00 115 H 19 104/65 100 03/22/24 10:30 131 H 20 99/57 98 03/22/24 10:00 130 H 16 100/67 100 03/22/24 09:00 126 H 20 106/64 97 03/22/24 08:30 124 H 17 101/71 100 03/22/24 08:00 101 H 19 112/61 100 03/22/24 07:30 129 H 20 92/68 100 03/22/24 07:23 129 H 20 92/68 100 03/22/24 06:38 20 03/22/24 06:18 97.2 F L 126 H 20 120/69 97 Intake and Output 03/21/24 03/22/24 03/22/24 22:59 06:59 14:59 Other: Weight 48.534 kg Results 03/22/24 06:16 03/22/24 06:16 Cardiac Enzymes 03/22/24 03/22/24 Range/Units 06:16 06:16 AST 57 H (14-36) U/L Troponin I 0.026 (0.000-0.034) ng/mL Coagulation 03/22/24 Range/Units 06:16 PT 11.8 (10.0-12.5) sec APTT 21.4 L (22.0-30.0) sec CBC 03/22/24 Range/Units 06:16 WBC 9.0 (3.8-10.6) k/uL RBC 4.53 (3.80-5.40) m/uL Hgb 12.4 (11.4-16.0) gm/dL Hct 38.5 (34.0-46.0) % Plt Count 245 (150-450) k/uL Comprehensive Metabolic Panel 03/22/24 Range/Units 06:16 Sodium 135 L (137-145) mmol/L Potassium 3.2 L (3.5-5.1) mmol/L Chloride 94 L (98-107) mmol/L Carbon Dioxide 29 (22-30) mmol/L BUN 28 H (7-17) mg/dL Creatinine 0.72 (0.52-1.04) mg/dL Glucose 129 H (74-99) mg/dL Calcium 9.3 (8.4-10.2) mg/dL AST 57 H (14-36) U/L ALT 24 (4-34) U/L Alkaline Phosphatase 118 (38-126) U/L Total Protein 7.9 (6.3-8.2) g/dL Albumin 4.2 (3.5-5.0) g/dL Current Medications Generic Name Dose Route Start Last Admin Trade Name Freq PRN Reason Stop Dose Admin Acetaminophen 650 mg 03/22/24 08:14 Acetaminophen Tab 325 Mg Tab PO Q4HR PRN Mild Pain or Fever > 100.5 Hydrocodone Bitart/Acetaminophen 1 each 03/22/24 08:15 Hydrocodone/Apap 10-325mg 1 Each Tab PO Q8H PRN Pain Albuterol/Ipratropium 3 ml 03/22/24 12:00 Ipratropium-Albuterol 3 Ml Neb INHALATION RT-QID CARLOS Albuterol/Ipratropium 3 ml 03/22/24 08:14 Ipratropium-Albuterol 3 Ml Neb INHALATION RT-Q2H PRN Shortness Of Breath Or Wheezing Alprazolam 0.25 mg 03/22/24 08:15 Alprazolam 0.25 Mg Tab PO HS PRN Anxiety Ascorbic Acid 500 mg 03/22/24 09:00 03/22/24 09:56 Ascorbic Acid 500 Mg Tab PO 500 mg DAILY CARLOS Administration Aspirin 81 mg 03/22/24 09:00 03/22/24 09:57 Aspirin 81 Mg PO 81 mg DAILY CARLOS Administration Bumetanide 1 mg 03/22/24 16:00 Bumetanide 1 Mg Tab PO DAILY@1600 COUNTS INCLUDE 234 BEDS AT THE [facility] Bumetanide 2 mg 03/22/24 09:00 03/22/24 09:57 Bumetanide 1 Mg Tab PO 2 mg DAILY@0900 COUNTS INCLUDE 234 BEDS AT THE [facility] Administration Cholecalciferol 125 mcg 03/22/24 09:00 03/22/24 09:57 Cholecalciferol 125 Mcg (5000 Iu) Tablet PO 125 mcg DAILY CARLOS Administration Dapagliflozin 5 mg 03/22/24 09:00 03/22/24 09:57 Dapagliflozin Propanediol 5 Mg Tablet PO 5 mg DAILY CARLOS Administration Enoxaparin Sodium 40 mg 03/22/24 10:30 03/22/24 10:36 Enoxaparin 40 Mg/0.4 Ml Syringe SQ 40 mg BID CARLOS Administration Levothyroxine Sodium 150 mcg 03/22/24 09:00 03/22/24 09:56 Levothyroxine 75 Mcg Tab PO 150 mcg DAILY@0630 CARLOS Administration Naloxone HCl 0.2 mg 03/22/24 08:14 Naloxone 0.4 Mg/Ml 1 Ml Vial IVP Q2M PRN Opioid Reversal Intake and Output 03/21/24 03/22/24 03/22/24 22:59 06:59 14:59 Other: Weight 48.534 kg 03/22/24 06:16 03/22/24 06:16
[2024-03-22] MEDS: METOPROLOL TARTRATE 5 MG/5 ML VIAL IVP SCH (12:42)
--- NOTE | 2024-03-22 12:44 | P.CNPUL ---
History of Present Illness Consult date: 03/22/24 Requesting physician: Olya Olson Reason for consult: dyspnea Chief complaint: Shortness of breath, fatigue and weakness History of present illness: This is a 78-year-old female patient with a known history of valvular heart disease with previous aortic valve replacement and mitral valve repair, congestive heart failure, paroxysmal atrial fibrillation, chronic hypoxemic respiratory failure on home oxygen at 2 L/min, chronic obstructive pulmonary disease, coronary artery disease with previous bypass surgery. She presented here to the emergency room early this morning after a 2-week history of progressive shortness of breath, weakness and intermittent chest discomfort. Chest x-ray shows cardiomegaly with pulmonary venous congestion. No overt heart failure. Count 9.0. Hemoglobin 12.4. Platelets 245. INR 1.1. Sodium 135. Potassium 3.2. Bicarb 29. BUN 28. Creatinine 0.72. Glucose 129. proBNP 3610. Troponin 0.026. She has been initiated on DuoNeb inhalations, Bumex, Lovenox. She is seen in consultation in the emergency department. She is currently obtunded and difficult to arouse. She is maintaining O2 saturations up to 100% on 2 L nasal cannula. She is tachycardic. Mean arterial pressure 71. She is afebrile. EKG reveals atrial flutter. Review of Systems ROS unobtainable: due to mental status Past Medical History Past Medical History: Atrial Fibrillation, Heart Failure, COPD, GERD/Reflux, Osteoarthritis (OA), Renal Disease, Rheumatoid Arthritis (RA), Supraventricular Tachycardia (SVT), Thyroid Disorder Additional Past Medical History / Comment(s): Valvular heart disease with previous aortic valve replacement and a mitral valve repair, congestion heart failure, Paroxysmal Afib, history of SVT, history of nonsustained VT, SOB with exertion, home O2 at 2L/NC usually prn but lately ATC, arthritis, RA several joints, current L elbow pain/swelling-had "injection", nephrolithiasis, hypothyroid, diverticular dx, UTI, iron deficiency anemia. 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 History of Any Multi-Drug Resistant Organisms: None Reported Past Surgical History: Coronary Bypass/CABG, Heart Catheterization, Hysterectomy, Joint Replacement, Orthopedic Surgery Additional Past Surgical History / Comment(s): Geoff total knees arthroplasty,lt hip arthroplasty, goiter removed 1962, partial thyroidectomy, cataracts removed with lens implants, REVERSE TOTAL RIGHT SHOULDER; Rotator cuff R shoulder, cervical fusion/injections, colonoscopy 2017(next after 5yr), MATTHEW, valve surgery at [facility] 10/13/17 Prosthetic Aortic valve and mitral valve repair. Total abdominal hysterectomy in the 1980s. Past Anesthesia/Blood Transfusion Reactions: Postoperative Nausea & Vomiting (PONV) Past Psychological History: No Psychological Hx Reported Smoking Status: Former smoker - Past Family History Father Family Medical History: Cancer, Myocardial Infarction ([place]) Additional Family Medical History / Comment(s): in his 80's of a mi. Colon cancer. Mother Family Medical History: No Reported History Additional Family Medical History / Comment(s): age 88 . hx smoking. Daughter(s) Family Medical History: Cancer Additional Family Medical History / Comment(s): from vulvar cancer. Medications and Allergies Home Medications Medication Instructions Recorded Confirmed Type Ascorbic Acid [Vitamin C] 500 mg PO DAILY 30 Days #30 tab 11/05/23 03/22/24 Rx Aspirin 81 mg PO DAILY 30 Days #30 tab 11/05/23 03/22/24 Rx Cholecalciferol (Vitamin D3) 125 mcg PO DAILY 30 Days #30 cap 11/05/23 03/22/24 Rx [Vitamin D3 (125 MCG = 5,000 IU)] Ipratropium-Albuterol Nebulize 3 ml INHALATION RT-Q6H PRN 11/20/23 03/22/24 History [Duoneb 0.5 mg-3 mg/3 ml Soln] Levothyroxine Sodium [Synthroid] 150 mcg PO DAILY 11/20/23 03/22/24 History Empagliflozin [Jardiance] 10 mg PO DAILY 30 Days #30 tablet 12/31/23 03/22/24 Rx Bumetanide [BUMEX] 1 mg PO DAILY@1600 02/11/24 03/22/24 History Bumetanide [BUMEX] 2 mg PO DAILY@0900 02/11/24 03/22/24 History ALPRAZolam [Xanax] 0.25 mg PO HS PRN 3 Days #3 tab 02/18/24 03/22/24 Rx HYDROcodone/APAP 10-325MG [[place] 1 tab PO Q8H PRN 3 Days #12 tab 02/18/24 03/22/24 Rx 10-325] Allergies Allergy/AdvReac Type Severity Reaction Status Date / Time lisinopril AdvReac Cough Verified 03/22/24 10:11 Physical Exam Vitals: Vital Signs Temp Pulse Resp BP Pulse Ox 03/22/24 11:50 131 H 18 93/60 98 03/22/24 11:49 113 H 03/22/24 11:36 106 H 03/22/24 11:30 105 H 21 106/62 100 03/22/24 11:00 115 H 19 104/65 100 03/22/24 10:30 131 H 20 99/57 98 03/22/24 10:00 130 H 16 100/67 100 03/22/24 09:00 126 H 20 106/64 97 03/22/24 08:30 124 H 17 101/71 100 03/22/24 08:00 101 H 19 112/61 100 03/22/24 07:30 129 H 20 92/68 100 03/22/24 07:23 129 H 20 92/68 100 03/22/24 06:38 20 03/22/24 06:18 97.2 F L 126 H 20 120/69 97 Intake and Output 03/21/24 03/22/24 03/22/24 22:59 06:59 14:59 Other: Weight 48.534 kg GENERAL EXAM: Obtunded, frail, 78-year-old female, on 2 L nasal cannula. HEAD: Normocephalic. EYES: Normal reaction of pupils, equal size. NOSE: Clear with pink turbinates. THROAT: No erythema or exudates. NECK: No masses, no JVD. CHEST: No chest wall deformity. LUNGS: Equal air entry with crackles in the bilateral bases. CVS: S1 and S2 normal with no audible murmur, regular rhythm, tachycardic. ABDOMEN: No hepatosplenomegaly, normal bowel sounds, no guarding or rigidity. SPINE: No scoliosis or deformity SKIN: No rashes CENTRAL NERVOUS SYSTEM: No focal deficits, tone is normal in all 4 extremities. EXTREMITIES: There is 1+ peripheral edema. No clubbing, no cyanosis. Peripheral pulses are intact. Results - Laboratory Findings CBC and BMP: 03/22/24 06:16 03/22/24 06:16 PT/INR, D-dimer PT 11.8 sec (10.0-12.5) 07/22/24 06:16 INR 1.1 (<1.2) 03/22/24 06:16 Abnormal lab findings: Abnormal Labs 03/22/24 03/22/24 03/22/24 06:16 06:16 06:16 RDW 17.7 H APTT 21.4 L Sodium 135 L Potassium 3.2 L Chloride 94 L BUN 28 H Glucose 129 H Plasma Lactic Acid Wilfred Total Bilirubin 2.4 H AST 57 H 03/22/24 06:16 RDW APTT Sodium Potassium Chloride BUN Glucose Plasma Lactic Acid Wilfred 3.1 H* Total Bilirubin AST - Diagnostic Findings Chest x-ray: image reviewed Assessment and Plan Assessment: Shortness of breath with altered mental status over the past 2 weeks Atrial flutter with rapid ventricular response Acute on chronic hypoxemic respiratory failure secondary to chronic systolic congestive heart failure History of cardiomyopathy with ejection fraction of 37%. History of atrial aortic valve replacement and mitral valve repair History of coronary disease with previous coronary bypass grafting Chronic obstructive pulmonary disease Chronic hypoxemic respiratory failure secondary to above Rheumatoid arthritis Hypothyroidism Plan: The patient was seen and evaluated Chest x-ray, labs and medications reviewed The patient is currently quite obtunded Obtain stat ABGs Continue therapeutic Lovenox Continue diuretics Continue bronchodilators Spoke with her at the bedside She is to be a DNR/DNI CODE STATUS We will continue to follow and make further recommendations based on her clinical status I have personally seen and examined the patient, performed the documentation and the assessment and plan as written. Number of minutes spent on the visit: 20.
[2024-03-22 13:33] LABS: ABG Base Excess 7.2 mmol/L; ABG HCO3 31 mmol/L (21-25); ABG Oxygen Saturation 99.7 % (94-97); ABG PCO2 42 mmHg (35-45); ABG PH 7.49 (7.35-7.45); ABG PO2 127 mmHg (83-108); ABG TCO2 33 mmol/L (19-24); Allen Test Performed? Yes
[2024-03-22 14:02] LABS: Appearance,Urine Cloudy (Clear); Bacteria,Urine Many /hpf; Bilirubin,Urine Negative (Negative); Blood,Urine Small (Negative); Budding Yeast,Urine Moderate /hpf; Color,Urine Yellow; Glucose,Urine (UA) Trace (Negative); Hyaline Casts,Urine 2 /lpf (0-2); Ketones,Urine Negative (Negative); Leukocyte Esterase,Urine Moderate (Negative); Mucus,Urine Rare /hpf; Nitrite,Urine Negative (Negative); Protein,Urine 1+ (Negative); RBC,Urine 3 /hpf (0-5); Specific Gravity,Urine 1.018 (1.001-1.035); Squamous Epithelial Cell,Urine 4 /hpf (0-4); Urobilinogen,Urine <2.0 mg/dL (<2.0); WBC,Urine 16 /hpf (0-5)
[2024-03-22] MEDS ORDERED: METOPROLOL TARTRATE 5 MG/5 ML VIAL IVP SCH (16:00)
--- NOTE | 2024-03-22 17:24 | P.HPIM ---
History of Present Illness H&P Date: 03/22/24 Mirella San, is an 78-year-old female who presented to [facility] emergency room with a chief complaint of worsening shortness of breath She was evaluated in the emergency room vital examination on presentation revealed a temperature of 97.2 pulse 126 respiration 20 blood pressure 120/69 pulse ox 97% on 2 L nasal cannula Laboratory data reveals a white blood count of 9.0 hemoglobin 12.4 platelet count 245 BUN 28 creatinine 0.72 potassium 3.2 lactic acid 3.1 Testing in the emergency room revealed chest x-ray revealed evidence of cardiomegaly with pulmonary venous congestion, EKG revealed atrial flutter with rapid ventricular response Patient was admitted to medical floor for further evaluation and treatment, cardiology and pulmonary consultation was requested Past Medical History Past Medical History: Atrial Fibrillation, Heart Failure, COPD, GERD/Reflux, Osteoarthritis (OA), Renal Disease, Rheumatoid Arthritis (RA), Supraventricular Tachycardia (SVT), Thyroid Disorder Additional Past Medical History / Comment(s): Valvular heart disease with previous aortic valve replacement and a mitral valve repair, congestion heart failure, Paroxysmal Afib, history of SVT, history of nonsustained VT, SOB with exertion, home O2 at 2L/NC usually prn but lately ATC, arthritis, RA several joints, current L elbow pain/swelling-had "injection", nephrolithiasis, hypothyroid, diverticular dx, UTI, iron deficiency anemia. 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 History of Any Multi-Drug Resistant Organisms: None Reported Past Surgical History: Coronary Bypass/CABG, Heart Catheterization, Hysterectomy, Joint Replacement, Orthopedic Surgery Additional Past Surgical History / Comment(s): Geoff total knees arthroplasty,lt hip arthroplasty, goiter removed 1962, partial thyroidectomy, cataracts removed with lens implants, REVERSE TOTAL RIGHT SHOULDER; Rotator cuff R shoulder, cervical fusion/injections, colonoscopy 2016(next after 5yr), MATTHEW, valve surgery at [facility] 10/13/17 Prosthetic Aortic valve and mitral valve repair. Total abdominal hysterectomy in the 1980s. Past Anesthesia/Blood Transfusion Reactions: Postoperative Nausea & Vomiting (PONV) Past Psychological History: No Psychological Hx Reported Smoking Status: Former smoker - Past Family History Father Family Medical History: Cancer, Myocardial Infarction ([place]) Additional Family Medical History / Comment(s): in his 80's of a mi. Colon cancer. Mother Family Medical History: No Reported History Additional Family Medical History / Comment(s): age 88 . hx smoking. Daughter(s) Family Medical History: Cancer Additional Family Medical History / Comment(s): from vulvar cancer. Medications and Allergies Home Medications Medication Instructions Recorded Confirmed Type Ascorbic Acid [Vitamin C] 500 mg PO DAILY 30 Days #30 tab 11/05/23 03/22/24 Rx Aspirin 81 mg PO DAILY 30 Days #30 tab 11/05/23 03/22/24 Rx Cholecalciferol (Vitamin D3) 125 mcg PO DAILY 30 Days #30 cap 11/05/23 03/22/24 Rx [Vitamin D3 (125 MCG = 5,000 IU)] Ipratropium-Albuterol Nebulize 3 ml INHALATION RT-Q6H PRN 11/20/23 03/22/24 History [Duoneb 0.5 mg-3 mg/3 ml Soln] Levothyroxine Sodium [Synthroid] 150 mcg PO DAILY 11/20/23 03/22/24 History Empagliflozin [Jardiance] 10 mg PO DAILY 30 Days #30 tablet 12/31/23 03/22/24 Rx Bumetanide [BUMEX] 1 mg PO DAILY@1600 02/11/24 03/22/24 History Bumetanide [BUMEX] 2 mg PO DAILY@0900 02/11/24 03/22/24 History ALPRAZolam [Xanax] 0.25 mg PO HS PRN 3 Days #3 tab 02/18/24 03/22/24 Rx HYDROcodone/APAP 10-325MG [[place] 1 tab PO Q8H PRN 3 Days #12 tab 02/18/24 03/22/24 Rx 10-325] Allergies Allergy/AdvReac Type Severity Reaction Status Date / Time lisinopril AdvReac Cough Verified 03/22/24 10:11 Physical Exam Vitals: Vital Signs Temp Pulse Resp BP Pulse Ox 03/22/24 09:00 126 H 20 106/64 97 03/22/24 08:30 124 H 17 101/71 100 03/22/24 08:00 101 H 19 112/61 100 03/22/24 07:30 129 H 20 92/68 100 03/22/24 07:23 129 H 20 92/68 100 03/22/24 06:38 20 07/22/24 06:18 97.2 F L 126 H 20 120/69 97 Intake and Output 03/21/24 03/22/24 03/22/24 22:59 06:59 14:59 Other: Weight 48.534 kg In general patient is alert and oriented x 3 in no distress HEENT head normocephalic and atraumatic Neck is supple no JVD no goiter no lymphadenopathy no carotid bruit Chest examination reveals a scattered crackles bilaterally no wheezing Cardiac exam reveals irregular heart sounds S1 and S2 with a 3/6 systolic murmur in the left sternal border Abdomen is soft nontender no organomegaly with normal bowel sounds Extremity exam reveals no edema no cyanosis or clubbing Neurological examination reveals no gross focal deficits Results CBC & Chem 7: 03/22/24 06:16 03/22/24 06:16 Labs: Abnormal Lab Results - Last 24 Hours (Table) 03/22/24 03/22/24 03/22/24 Range/Units 06:16 06:16 06:16 RDW 17.7 H (11.5-15.5) % APTT 21.4 L (22.0-30.0) sec Sodium 135 L (137-145) mmol/L Potassium 3.2 L (3.5-5.1) mmol/L Chloride 94 L (98-107) mmol/L BUN 28 H (7-17) mg/dL Glucose 129 H (74-99) mg/dL Plasma Lactic Acid Wilfred (0.7-2.0) mmol/L Total Bilirubin 2.4 H (0.2-1.3) mg/dL AST 57 H (14-36) U/L 03/22/24 Range/Units 06:16 RDW (11.5-15.5) % APTT (22.0-30.0) sec Sodium (137-145) mmol/L Potassium (3.5-5.1) mmol/L Chloride (98-107) mmol/L BUN (7-17) mg/dL Glucose (74-99) mg/dL Plasma Lactic Acid Wilfred 3.1 H* (0.7-2.0) mmol/L Total Bilirubin (0.2-1.3) mg/dL AST (14-36) U/L Assessment and Plan Plan: Atrial flutter with rapid ventricular response Acute exacerbation of congestive heart failure Underlying history of chronic hypoxic respiratory failure requiring home oxygen use Underlying history of chronic obstructive pulmonary disease Underlying history of valvular heart disease with previous history of aortic valve replacement and mitral valve repair Underlying history of paroxysmal atrial fibrillation Previous history of nonsustained V. tach Previous history of supraventricular tachycardia Underlying history of rheumatoid arthritis Underlying history of hypothyroidism Underlying history of osteoarthritis At this time patient will be admitted to telemetry floor Home medications reviewed and reordered She was started on full therapeutic dose of Lovenox subcutaneously Cardiology consultation and pulmonary consultation were requested For DVT prophylaxis subcu heparin Cardiology to decide regarding need for anticoagulation Will follow closely
[2024-03-23 07:55] LABS: Anisocytosis Slight; Basophils % (A) 0 %; Eosinophils % (A) 0 %; HCT 34.8 % (34.0-46.0); HGB 11.1 gm/dL (11.4-16.0); Hypochromasia Moderate; Lymphocytes % (A) 11 %; MCH 27.4 pg (25.0-35.0); MCV 85.7 fL (80.0-100.0); Mean Platelet Volume 8.4; Monocytes # (A) 0.6 k/uL (0-1.0); Monocytes % (A) 6 %; Neutrophils # (A) 7.1 k/uL (1.3-7.7); Neutrophils % (A) 80 %; Platelet Count 246 k/uL (150-450); RBC 4.06 m/uL (3.80-5.40); RDW 17.7 % (11.5-15.5)
[2024-03-23 08:16] LABS: ALT 17 U/L (4-34); AST 49 U/L (14-36); African American GFR (CKD) 77 (>60 ml/min/1.73 sqM); Albumin 3.5 g/dL (3.5-5.0); Alkaline Phosphatase 91 U/L (38-126); Anion Gap 10 mmol/L; Blood Urea Nitrogen 36 mg/dL (7-17); Calcium 8.4 mg/dL (8.4-10.2); Carbon Dioxide 29 mmol/L (22-30); Chloride 93 mmol/L (98-107); Glucose 123 mg/dL (74-99); Non-African American GFR(CKD) 67 (>60 ml/min/1.73 sqM); Sodium 132 mmol/L (137-145); Total Bilirubin 1.3 mg/dL (0.2-1.3); Total Protein 6.8 g/dL (6.3-8.2)
[2024-03-23 08:35] LABS: Potassium 3.1 mmol/L (3.5-5.1)
[2024-03-23] MEDS: SYMBICORT 160-4.5 MCG INHALER INHALATION SCH (09:50)
--- NOTE | 2024-03-23 11:39 | P.PN ---
Subjective Progress Note Date: 03/23/24 This is a 78-year-old female patient with a known history of valvular heart disease with previous aortic valve replacement and mitral valve repair, congestive heart failure, paroxysmal atrial fibrillation, chronic hypoxemic respiratory failure on home oxygen at 2 L/min, chronic obstructive pulmonary disease, coronary artery disease with previous bypass surgery. She presented here to the emergency room early this morning after a 2-week history of progressive shortness of breath, weakness and intermittent chest discomfort. Chest x-ray shows cardiomegaly with pulmonary venous congestion. No overt heart failure. Count 9.0. Hemoglobin 12.4. Platelets 245. INR 1.1. Sodium 135. Potassium 3.2. Bicarb 29. BUN 28. Creatinine 0.72. Glucose 129. proBNP 3610. Troponin 0.026. She has been initiated on DuoNeb inhalations, Bumex, Lovenox. She is seen in consultation in the emergency department. She is currently obtunded and difficult to arouse. She is maintaining O2 saturations up to 100% on 2 L nasal cannula. She is tachycardic. Mean arterial pressure 71. She is afebrile. EKG reveals atrial flutter. The patient is seen today March 23, 2024 in follow-up on the regular medical floo r. More awake and alert today. Sitting up in bed. Continue good O2 saturations in the high 90s on 2 L/min per nasal cannula. No IV fluids. White count 9.0. Hemoglobin 11.1. Platelets 246. Sodium 132. Potassium 3.1. Bicarb 29. BUN 36. Creatinine 0.83. Glucose 123. Continued on DuoNeb in halations, Symbicort. Remains on oral diuretics. Lovenox for anticoagulation. Urinalysis cloudy with many bacteria. Culture pending. Objective - Vital Signs Vital signs: Vital Signs Temp 98.3 F 03/23/24 03:55 Pulse 84 03/23/24 10:24 Resp 18 03/23/24 10:24 BP 112/41 03/23/24 08:05 Pulse Ox 98 03/23/24 08:05 FiO2 Intake & Output 03/22/24 03/23/24 03/23/24 18:59 06:59 18:59 Weight 48.534 kg Other: Voiding Method Diaper Diaper Diaper Incontinent Incontinent Incontinent - Exam GENERAL EXAM: Awake, alert frail, 78-year-old female, on 2 L nasal cannula, in no acute distress. HEAD: Normocephalic. EYES: Normal reaction of pupils, equal size. NOSE: Clear with pink turbinates. THROAT: No erythema or exudates. NECK: No masses, no JVD. CHEST: No chest wall deformity. LUNGS: Equal air entry with crackles in the bilateral bases. CVS: S1 and S2 normal with no audible murmur, regular rhythm, tachycardic. ABDOMEN: No hepatosplenomegaly, normal bowel sounds, no guarding or rigidity. SPINE: No scoliosis or deformity SKIN: No rashes CENTRAL NERVOUS SYSTEM: No focal deficits, tone is normal in all 4 extremities. EXTREMITIES: There is 1+ peripheral edema. No clubbing, no cyanosis. Peripheral pulses are intact. - Labs CBC & Chem 7: 03/23/24 06:31 03/23/24 06:31 Labs: Abnormal Lab Results - Last 24 Hours (Table) 03/22/24 03/22/24 03/23/24 Range/Units 13:29 13:35 06:31 Hgb 11.1 L (11.4-16.0) gm/dL RDW 17.7 H (11.5-15.5) % ABG pH 7.49 H (7.35-7.45) ABG pO2 127 H (83-108) mmHg ABG HCO3 31 H (21-25) mmol/L ABG Total CO2 33 H (19-24) mmol/L ABG O2 Saturation 99.7 H (94-97) % Sodium (137-145) mmol/L Potassium (3.5-5.1) mmol/L Chloride (98-107) mmol/L BUN (7-17) mg/dL Glucose (74-99) mg/dL AST (14-36) U/L Urine Appearance Cloudy H (Clear) Urine Protein 1+ H (Negative) Urine Glucose (UA) Trace H (Negative) Urine Blood Small H (Negative) Ur Leukocyte Esterase Moderate H (Negative) Urine WBC 16 H (0-5) /hpf Urine Bacteria Many H (None) /hpf Urine Mucus Rare H (None) /hpf Urine Yeast (Budding) Moderate H (None) /hpf 03/23/24 Range/Units 06:31 Hgb (11.4-16.0) gm/dL RDW (11.5-15.5) % ABG pH (7.35-7.45) ABG pO2 (83-108) mmHg ABG HCO3 (21-25) mmol/L ABG Total CO2 (19-24) mmol/L ABG O2 Saturation (94-97) % Sodium 132 L (137-145) mmol/L Potassium 3.1 L (3.5-5.1) mmol/L Chloride 93 L (98-107) mmol/L BUN 36 H (7-17) mg/dL Glucose 123 H (74-99) mg/dL AST 49 H (14-36) U/L Urine Appearance (Clear) Urine Protein (Negative) Urine Glucose (UA) (Negative) Urine Blood (Negative) Ur Leukocyte Esterase (Negative) Urine WBC (0-5) /hpf Urine Bacteria (None) /hpf Urine Mucus (None) /hpf Urine Yeast (Budding) (None) /hpf Assessment and Plan Assessment: Altered mental status suspect secondary to urinary tract infection. Awake and alert today Atrial flutter with rapid ventricular response currently on therapeutic Lovenox Acute on chronic hypoxemic respiratory failure secondary to chronic systolic congestive heart failure History of cardiomyopathy with ejection fraction of 37%. History of atrial aortic valve replacement and mitral valve repair History of coronary disease with previous coronary bypass grafting Chronic obstructive pulmonary disease Chronic hypoxemic respiratory failure secondary to above Rheumatoid arthritis Hypothyroidism Plan: The patient was seen and evaluated Labs and medications reviewed Suspect urinary tract infection Continue therapeutic Lovenox Continue diuretics Continue bronchodilators Titrate the FiO2 as tolerated We will continue to follow I have personally seen and examined the patient, performed the documentation and the assessment and plan as written. Number of minutes spent on the visit: 10.
--- NOTE | 2024-03-23 12:13 | P.PN ---
Subjective HISTORY OF PRESENT ILLNESS: This is an 78-year-old female patient of Dr. Flores with past medical history of persistent atrial fibrillation/flutter recently taken off Coumadin, known EF of 37%, history of mitral valve repair, nonischemic cardiomyopathy, pulmonary hypertension, hypothyroidism, chronic hypoxic respiratory failure on home O2. Patient has had multiple hospitalizations for A-fib with RVR and congestive heart failure and has not been seen in the office since 02/20/2023. Patient presented to the hospital due to shortness of breath and mental status changes. Patient is seen in the emergency center and unable to give any information. Patient's is at the bedside. He is states that her mental status is worse now than when he brought her into the hospital. Patient is seen today in the emergency center waiting for bed. Patient is noted to be tachycardic and initially oral metoprolol ordered which was switched to IV as patient is unable to take oral medications. Blood pressure 93/60, heart rate 131, pulse ox 98% on 2 L nasal cannula. Patient is status post IV Solu-Medrol. EKG typical atrial flutter 129 bpm, #2 typical a flutter 108 bpm Chest x-ray: Cardiomegaly with pulmonary venous congestion much improved from prior examination. No overt failure. Laboratory studies: WBC 9, hemoglobin 12.4. Sodium 135, potassium 3.2, chloride 94, BUN 28 creatinine 0.72. Initial lactic acid 3.1 and repeat 1.8. Total bilirubin 2.4, AST 57. Magnesium 2.1. Troponin 0.026. proBNP 3610. Home cardiac medications: Aspirin 81 mg daily, Bumex 2 mg daily and 1 mg in the afternoon, Jardiance 10 mg daily, patient also on levothyroxine 150 mcg daily. Echocardiogram in June 2023 revealed ejection fraction 30-35%, severe pulmonary hypertension, bioprosthetic aortic valve, and mitral valve repair with mild MR Cardiac catheterization history: October 2017 revealing normal coronary arteries Cardioversion 07/05/2022 for atrial flutter with yarsanism of sinus rhythm Aortic valve replacement 10/13/2017 with Magna E[employer] bioprosthetic aortic valve, mitral valve repair with [employer] annular flex band, clip ligation of the left atrial appendage. MATTHEW performed 01/30/2018 revealed sutured left atrial appendage, bioprosthetic aortic valve with normal functioning, mitral annuloplasty with mitral valve repair and mild mitral regurgitation. Moderate tricuspid regurgitation. No evidence of shunting across the intra-atrial septum. 03/23/2024 Patient examined this morning the bedside. Patient currently denies chest pain or pressure. She denies shortness of breath. Telemetry reveals atrial fibrillation with controlled ventricular rate. Per nursing, patient is able to swallow pills this morning. PHYSICAL EXAM: VITAL SIGNS: Reviewed. GENERAL: Well-developed in no acute distress. NECK: Supple. No JVD or thyromegaly LUNGS: Respirations even and unlabored. Lungs essentially clear to auscultation bilaterally. HEART: Irregular rate and rhythm. S1 and S2 heard. Systolic murmur noted.. EXTREMITIES: Normal range of motion. No clubbing or cyanosis. Peripheral pulses intact. No lower extremity edema ASSESSMENT: Altered mental status Persistent atrial fibrillation, not anticoagulated on an outpatient basis secondary to sutured left atrial appendage Nonischemic cardiomyopathy, EF 30 to 35% Chronic heart failure with reduced EF, 35%, currently euvolemic Valvular heart disease s/p mitral valve repair and bioprosthetic aortic valve replacement Severe tricuspid regurgitation Pulmonary hypertension Hypothyroidism Chronic hypoxic respiratory failure on home O2 PLAN: Continue current cardiac medications Discontinue IV metoprolol Add oral metoprolol 25 mg twice a day Continue telemetry monitoring No further inpatient recommendations from a cardiac standpoint We will sign off. Please reconsult if needed. Nurse practitioner note has been reviewed by physician. Signing provider agrees with the documented findings, assessment, and plan of care documented by [employer]PRENT[employer] as a scribe. Objective - Vital Signs Vital signs: Vital Signs Temp 98.3 F 03/23/24 03:55 Pulse 64 03/23/24 12:00 Resp 18 03/23/24 12:00 BP 102/62 03/23/24 12:00 Pulse Ox 97 03/23/24 12:00 FiO2 Intake & Output 03/22/24 03/23/24 03/23/24 18:59 06:59 18:59 Weight 48.534 kg Other: Voiding Method Diaper Diaper Diaper Incontinent Incontinent Incontinent - Labs CBC & Chem 7: 03/23/24 06:31 03/23/24 06:31 Labs: Abnormal Lab Results - Last 24 Hours (Table) 03/22/24 03/22/24 03/23/24 Range/Units 13:29 13:35 06:31 Hgb 11.1 L (11.4-16.0) gm/dL RDW 17.7 H (11.5-15.5) % ABG pH 7.49 H (7.35-7.45) ABG pO2 127 H (83-108) mmHg ABG HCO3 31 H (21-25) mmol/L ABG Total CO2 33 H (19-24) mmol/L ABG O2 Saturation 99.7 H (94-97) % Sodium (137-145) mmol/L Potassium (3.5-5.1) mmol/L Chloride (98-107) mmol/L BUN (7-17) mg/dL Glucose (74-99) mg/dL AST (14-36) U/L Urine Appearance Cloudy H (Clear) Urine Protein 1+ H (Negative) Urine Glucose (UA) Trace H (Negative) Urine Blood Small H (Negative) Ur Leukocyte Esterase Moderate H (Negative) Urine WBC 16 H (0-5) /hpf Urine Bacteria Many H (None) /hpf Urine Mucus Rare H (None) /hpf Urine Yeast (Budding) Moderate H (None) /hpf 03/23/24 Range/Units 06:31 Hgb (11.4-16.0) gm/dL RDW (11.5-15.5) % ABG pH (7.35-7.45) ABG pO2 (83-108) mmHg ABG HCO3 (21-25) mmol/L ABG Total CO2 (19-24) mmol/L ABG O2 Saturation (94-97) % Sodium 132 L (137-145) mmol/L Potassium 3.1 L (3.5-5.1) mmol/L Chloride 93 L (98-107) mmol/L BUN 36 H (7-17) mg/dL Glucose 123 H (74-99) mg/dL AST 49 H (14-36) U/L Urine Appearance (Clear) Urine Protein (Negative) Urine Glucose (UA) (Negative) Urine Blood (Negative) Ur Leukocyte Esterase (Negative) Urine WBC (0-5) /hpf Urine Bacteria (None) /hpf Urine Mucus (None) /hpf Urine Yeast (Budding) (None) /hpf
[2024-03-23] MEDS: METOPROLOL TARTRATE 25 MG TAB PO SCH (12:47)
[2024-03-23] MEDS ORDERED: Potassium Replacement Protocol 1 EACH MISC MISCELLANE PRN (14:02)
[2024-03-23] MEDS: POTASSIUM CHLORIDE ER 20 MEQ TAB.ER PO SCH (16:06)
--- NOTE | 2024-03-23 16:44 | P.PN ---
Subjective Progress Note Date: 03/23/24 Mirella San, is an 78-year-old female who presented to [facility] emergency room with a chief complaint of worsening shortness of breath She was evaluated in the emergency room vital examination on presentation revealed a temperature of 97.2 pulse 126 respiration 20 blood pressure 120/69 pulse ox 97% on 2 L nasal cannula Laboratory data reveals a white blood count of 9.0 hemoglobin 12.4 platelet count 245 BUN 28 creatinine 0.72 potassium 3.2 lactic acid 3.1 Testing in the emergency room revealed chest x-ray revealed evidence of cardiomegaly with pulmonary venous congestion, EKG revealed atrial flutter with rapid ventricular response Patient was admitted to medical floor for further evaluation and treatment, cardiology and pulmonary consultation was requested On 03/23/2024 patient was seen and examined on the medical floor she is alert and oriented x 3 in no apparent distress, she reports some improvement in her shortness of breath otherwise she denies any complaints there is no fever or chills no headache or dizziness no chest pain no cough no nausea or vomiting no abdominal pain no diarrhea and no urinary symptoms Objective - Vital Signs Vital signs: Vital Signs Temp 98.3 F 03/23/24 03:55 Pulse 65 03/23/24 12:49 Resp 18 03/23/24 12:00 BP 102/62 03/23/24 12:00 Pulse Ox 97 03/23/24 12:00 FiO2 Intake & Output 03/22/24 03/23/24 03/23/24 18:59 06:59 18:59 Intake Total 358 Balance 358 Weight 48.534 kg Intake: Oral 358 Other: Voiding Method Diaper Diaper Diaper Incontinent Incontinent Incontinent # Voids 2 - Exam In general patient is alert and oriented x 3 in no distress HEENT head normocephalic and atraumatic Neck is supple no JVD no goiter no lymphadenopathy no carotid bruit Chest examination reveals a scattered crackles bilaterally no wheezing Cardiac exam reveals irregular heart sounds S1 and S2 with a 3/6 systolic murmur in the left sternal border Abdomen is soft nontender no organomegaly with normal bowel sounds Extremity exam reveals no edema no cyanosis or clubbing Neurological examination reveals no gross focal deficits - Labs CBC & Chem 7: 03/23/24 06:31 03/23/24 06:31 Labs: Abnormal Lab Results - Last 24 Hours (Table) 07/22/24 07/23/24 07/23/24 Range/Units 13:35 06:31 06:31 Hgb 11.1 L (11.4-16.0) gm/dL RDW 17.7 H (11.5-15.5) % Sodium 132 L (137-145) mmol/L Potassium 3.1 L (3.5-5.1) mmol/L Chloride 93 L (98-107) mmol/L BUN 36 H (7-17) mg/dL Glucose 123 H (74-99) mg/dL AST 49 H (14-36) U/L Urine Appearance Cloudy H (Clear) Urine Protein 1+ H (Negative) Urine Glucose (UA) Trace H (Negative) Urine Blood Small H (Negative) Ur Leukocyte Esterase Moderate H (Negative) Urine WBC 16 H (0-5) /hpf Urine Bacteria Many H (None) /hpf Urine Mucus Rare H (None) /hpf Urine Yeast (Budding) Moderate H (None) /hpf Assessment and Plan Plan: Atrial flutter with rapid ventricular response Acute exacerbation of congestive heart failure Underlying history of chronic hypoxic respiratory failure requiring home oxygen use Underlying history of chronic obstructive pulmonary disease Underlying history of valvular heart disease with previous history of aortic valve replacement and mitral valve repair Underlying history of paroxysmal atrial fibrillation Previous history of nonsustained V. tach Previous history of supraventricular tachycardia Underlying history of rheumatoid arthritis Underlying history of hypothyroidism Underlying history of osteoarthritis At this time patient will be admitted to telemetry floor Home medications reviewed and reordered She was started on full therapeutic dose of Lovenox subcutaneously Cardiology consultation and pulmonary consultation were requested For DVT prophylaxis subcu heparin Cardiology to decide regarding need for anticoagulation Will follow closely
[2024-03-23] MEDS: ACETAMINOPHEN TAB 325 MG TAB PO PRN (21:27)
--- NOTE | 2024-03-24 10:59 | P.PN ---
Subjective Progress Note Date: 03/24/24 Mirella San, is an 78-year-old female who presented to [facility] emergency room with a chief complaint of worsening shortness of breath She was evaluated in the emergency room vital examination on presentation revealed a temperature of 97.2 pulse 126 respiration 20 blood pressure 120/69 pulse ox 97% on 2 L nasal cannula Laboratory data reveals a white blood count of 9.0 hemoglobin 12.4 platelet count 245 BUN 28 creatinine 0.72 potassium 3.2 lactic acid 3.1 Testing in the emergency room revealed chest x-ray revealed evidence of cardiomegaly with pulmonary venous congestion, EKG revealed atrial flutter with rapid ventricular response Patient was admitted to medical floor for further evaluation and treatment, cardiology and pulmonary consultation was requested On 03/23/2024 patient was seen and examined on the medical floor she is alert and oriented x 3 in no apparent distress, she reports some improvement in her shortness of breath otherwise she denies any complaints there is no fever or chills no headache or dizziness no chest pain no cough no nausea or vomiting no abdominal pain no diarrhea and no urinary symptoms on 03/24/2024 patient is alert and oriented 3.Patient was started on Rocephin for urinary tract infection. Concerns per social work about compliance and living conditions.current vital signs temp 98.3, heart rate 81, respiratory rate 18, blood pressure 88/56 with pulse ox 95% on 2 L. Patient denies chest pain or shortness breath. Patient denies nausea vomiting or diarrhea. Denies any urinary burning or frequency Objective - Vital Signs Vital signs: Vital Signs Temp 98.3 F 03/24/24 03:37 Pulse 100 03/24/24 08:40 Resp 16 03/24/24 08:40 BP 88/56 03/24/24 03:37 Pulse Ox 97 03/24/24 08:30 FiO2 Intake & Output 03/23/24 03/24/24 03/24/24 18:59 06:59 18:59 Intake Total 476 240 Balance 476 240 Weight 48.534 kg 73 kg Intake: Oral 476 240 Other: Voiding Method Diaper Diaper Incontinent Incontinent # Voids 2 2 - Exam In general patient is alert and oriented x 3 in no distress HEENT head normocephalic and atraumatic Neck is supple no JVD no goiter no lymphadenopathy no carotid bruit Chest examination reveals a scattered crackles bilaterally no wheezing Cardiac exam reveals irregular heart sounds S1 and S2 with a 3/6 systolic murmur in the left sternal border Abdomen is soft nontender no organomegaly with normal bowel sounds Extremity exam reveals no edema no cyanosis or clubbing Neurological examination reveals no gross focal deficits - Labs CBC & Chem 7: 03/23/24 06:31 03/23/24 06:31 Labs: Microbiology - Last 24 Hours (Table) 03/22/24 13:35 Urine Culture - Final Urine,Voided Assessment and Plan Plan: Atrial flutter with rapid ventricular response Acute exacerbation of congestive heart failure Underlying history of chronic hypoxic respiratory failure requiring home oxygen use urinary tract infection. Patient started on Rocephin Underlying history of chronic obstructive pulmonary disease Underlying history of valvular heart disease with previous history of aortic valve replacement and mitral valve repair Underlying history of paroxysmal atrial fibrillation Previous history of nonsustained V. tach Previous history of supraventricular tachycardia Underlying history of rheumatoid arthritis Underlying history of hypothyroidism Underlying history of osteoarthritis At this time patient will be admitted to telemetry floor Home medications reviewed and reordered She was started on full therapeutic dose of Lovenox subcutaneously Cardiology consultation and pulmonary consultation were requested For DVT prophylaxis subcu heparin Cardiology to decide regarding need for anticoagulation Will follow closely
--- NOTE | 2024-03-24 11:12 | P.PN ---
Subjective Progress Note Date: 03/24/24 This is a 78-year-old female patient with a known history of valvular heart disease with previous aortic valve replacement and mitral valve repair, congestive heart failure, paroxysmal atrial fibrillation, chronic hypoxemic respiratory failure on home oxygen at 2 L/min, chronic obstructive pulmonary disease, coronary artery disease with previous bypass surgery. She presented here to the emergency room early this morning after a 2-week history of progressive shortness of breath, weakness and intermittent chest discomfort. Chest x-ray shows cardiomegaly with pulmonary venous congestion. No overt heart failure. Count 9.0. Hemoglobin 12.4. Platelets 245. INR 1.1. Sodium 135. Potassium 3.2. Bicarb 29. BUN 28. Creatinine 0.72. Glucose 129. proBNP 3610. Troponin 0.026. She has been initiated on DuoNeb inhalations, Bumex, Lovenox. She is seen in consultation in the emergency department. She is currently obtunded and difficult to arouse. She is maintaining O2 saturations up to 100% on 2 L nasal cannula. She is tachycardic. Mean arterial pressure 71. She is afebrile. EKG reveals atrial flutter. The patient is seen today March 23, 2024 in follow-up on the regular medical floo r. More awake and alert today. Sitting up in bed. Continue good O2 saturations in the high 90s on 2 L/min per nasal cannula. No IV fluids. White count 9.0. Hemoglobin 11.1. Platelets 246. Sodium 132. Potassium 3.1. Bicarb 29. BUN 36. Creatinine 0.83. Glucose 123. Continued on DuoNeb in halations, Symbicort. Remains on oral diuretics. Lovenox for anticoagulation. Urinalysis cloudy with many bacteria. Culture pending. The patient is seen today March 24, 2024 in follow-up on the regular medical floor. She is sitting up in bed. Awake and alert in no acute distress. She is maintaining good O2 saturations in the 90s on 2 L/min per nasal cannula. She denies any worsening shortness of breath, cough or congestion. She is complaining of constipation. She remains on DuoNeb inhalations, Symbicort, Lovenox. She remains on oral diuretics. Antibiotics in the form of ceftriaxone . Urine culture revealed no growth. Objective - Vital Signs Vital signs: Vital Signs Temp 98.3 F 03/24/24 03:37 Pulse 100 03/24/24 08:40 Resp 16 03/24/24 08:40 BP 88/54 03/24/24 08:30 Pulse Ox 95 03/24/24 08:30 FiO2 Intake & Output 03/23/24 03/24/24 03/24/24 18:59 06:59 18:59 Intake Total 476 240 Balance 476 240 Weight 48.534 kg 73 kg Intake: Oral 476 240 Other: Voiding Method Diaper Diaper Diaper Incontinent Incontinent Incontinent # Voids 2 2 # Bowel Movements 1 - Exam GENERAL EXAM: Awake, frail, cachectic 78-year-old female, on 2 L nasal cannula, in no acute distress. HEAD: Normocephalic. EYES: Normal reaction of pupils, equal size. NOSE: Clear with pink turbinates. THROAT: No erythema or exudates. NECK: No masses, no JVD. CHEST: No chest wall deformity. LUNGS: Equal air entry with crackles in the bilateral bases. CVS: S1 and S2 normal with no audible murmur, regular rhythm, tachycardic. ABDOMEN: No hepatosplenomegaly, normal bowel sounds, no guarding or rigidity. SPINE: No scoliosis or deformity SKIN: No rashes CENTRAL NERVOUS SYSTEM: No focal deficits, tone is normal in all 4 extremities. EXTREMITIES: There is 1+ peripheral edema. No clubbing, no cyanosis. Peripheral pulses are intact. - Labs CBC & Chem 7: 03/23/24 06:31 03/23/24 06:31 Labs: Microbiology - Last 24 Hours (Table) 03/22/24 13:35 Urine Culture - Final Urine,Voided Assessment and Plan Assessment: Altered mental status suspect secondary to urinary tract infection. Awake and alert today. Urine culture revealed no growth Atrial flutter with rapid ventricular response currently on therapeutic Lovenox Acute on chronic hypoxemic respiratory failure secondary to chronic systolic congestive heart failure History of cardiomyopathy with ejection fraction of 37%. History of atrial aortic valve replacement and mitral valve repair History of coronary disease with previous coronary bypass grafting Chronic obstructive pulmonary disease Chronic hypoxemic respiratory failure secondary to above Rheumatoid arthritis Hypothyroidism Plan: The patient was seen and evaluated Labs and medications reviewed Continue therapeutic Lovenox Continue diuretics Continue bronchodilators Titrate the FiO2 as tolerated Plan is for home with home care at discharge I have personally seen and examined the patient, performed the documentation and the assessment and plan as written. Number of minutes spent on the visit: 10.
[2024-03-24] MEDS ORDERED: ZINC OXIDE PASTE (Z-GUARD) 1 APPLIC TOPICAL PRN (16:29)
[2024-03-24] MEDS: polyethylene glycoL 3350 17 GM POWD.PACK PO SCH (20:38)
[2024-03-25 07:40] LABS: ALT 16 U/L (4-34); AST 31 U/L (14-36); African American GFR (CKD) >90 (>60 ml/min/1.73 sqM); Albumin 3.4 g/dL (3.5-5.0); Alkaline Phosphatase 95 U/L (38-126); Anion Gap 4 mmol/L; Blood Urea Nitrogen 30 mg/dL (7-17); Calcium 8.6 mg/dL (8.4-10.2); Carbon Dioxide 39 mmol/L (22-30); Chloride 94 mmol/L (98-107); Glucose 86 mg/dL (74-99); Non-African American GFR(CKD) 83 (>60 ml/min/1.73 sqM); Potassium 3.2 mmol/L (3.5-5.1); Sodium 137 mmol/L (137-145); Total Bilirubin 0.8 mg/dL (0.2-1.3); Total Protein 6.7 g/dL (6.3-8.2)
[2024-03-25 07:44] LABS: Anisocytosis Slight; Basophils % (A) 0 %; Eosinophils # (A) 0.3 k/uL (0-0.7); Eosinophils % (A) 5 %; HCT 37.7 % (34.0-46.0); HGB 11.4 gm/dL (11.4-16.0); Hypochromasia Marked; Lymphocytes # (A) 1.6 k/uL (1.0-4.8); Lymphocytes % (A) 23 %; MCH 26.6 pg (25.0-35.0); MCHC 30.3 g/dL (31.0-37.0); MCV 87.8 fL (80.0-100.0); Mean Platelet Volume 8.2; Monocytes # (A) 0.6 k/uL (0-1.0); Monocytes % (A) 8 %; Neutrophils # (A) 4.2 k/uL (1.3-7.7); Neutrophils % (A) 60 %; Platelet Count 249 k/uL (150-450); RDW 17.2 % (11.5-15.5)
--- NOTE | 2024-03-25 10:50 | P.PN ---
Subjective Progress Note Date: 03/25/24 Mirella San, is an 78-year-old female who presented to [facility] emergency room with a chief complaint of worsening shortness of breath She was evaluated in the emergency room vital examination on presentation revealed a temperature of 97.2 pulse 126 respiration 20 blood pressure 120/69 pulse ox 97% on 2 L nasal cannula Laboratory data reveals a white blood count of 9.0 hemoglobin 12.4 platelet count 245 BUN 28 creatinine 0.72 potassium 3.2 lactic acid 3.1 Testing in the emergency room revealed chest x-ray revealed evidence of cardiomegaly with pulmonary venous congestion, EKG revealed atrial flutter with rapid ventricular response Patient was admitted to medical floor for further evaluation and treatment, cardiology and pulmonary consultation was requested On 03/23/2024 patient was seen and examined on the medical floor she is alert and oriented x 3 in no apparent distress, she reports some improvement in her shortness of breath otherwise she denies any complaints there is no fever or chills no headache or dizziness no chest pain no cough no nausea or vomiting no abdominal pain no diarrhea and no urinary symptoms on 03/24/2024 patient is alert and oriented 3.Patient was started on Rocephin for urinary tract infection. Concerns per social work about compliance and living conditions.current vital signs temp 98.3, heart rate 81, respiratory rate 18, blood pressure 88/56 with pulse ox 95% on 2 L. Patient denies chest pain or shortness breath. Patient denies nausea vomiting or diarrhea. Denies any urinary burning or frequency On 05/26/2024 patient is alert and oriented 3. Discussed case with case management discharge planning to [facility]. Patient is agreeable at this time. Patient remains on IV Rocephin for urinary tract infection. Current vital signs temp 98.3, heart rate 95, respiratory rate 19, blood pressure any 7/62 with pulse ox 99% on 2 L. Patient denies chest pain or shortness breath. Patient denies nausea vomiting or diarrhea. Patient denies any urinary burning or frequency. Objective - Vital Signs Vital signs: Vital Signs Temp 98.3 F 03/25/24 04:00 Pulse 95 03/25/24 08:00 Resp 19 03/25/24 08:00 BP 97/62 03/25/24 04:00 Pulse Ox 99 07/25/24 04:00 FiO2 Intake & Output 03/24/24 03/25/24 03/25/24 18:59 06:59 18:59 Intake Total 354 338 Output Total 900 1200 Balance -546 -1200 338 Weight 65.5 kg Intake: Oral 354 338 Output: Urine 900 1200 Other: Voiding Method Diaper Diaper Diaper Incontinent Incontinent Incontinent # Bowel Movements 1 - Exam In general patient is alert and oriented x 3 in no distress HEENT head normocephalic and atraumatic Neck is supple no JVD no goiter no lymphadenopathy no carotid bruit Chest examination reveals a scattered crackles bilaterally no wheezing Cardiac exam reveals irregular heart sounds S1 and S2 with a 3/6 systolic murmur in the left sternal border Abdomen is soft nontender no organomegaly with normal bowel sounds Extremity exam reveals no edema no cyanosis or clubbing Neurological examination reveals no gross focal deficits - Labs CBC & Chem 7: 03/25/24 06:41 03/25/24 06:41 Labs: Abnormal Lab Results - Last 24 Hours (Table) 03/25/24 03/25/24 Range/Units 06:41 06:41 MCHC 30.3 L (31.0-37.0) g/dL RDW 17.2 H (11.5-15.5) % Potassium 3.2 L (3.5-5.1) mmol/L Chloride 94 L (98-107) mmol/L Carbon Dioxide 39 H (22-30) mmol/L BUN 30 H (7-17) mg/dL Albumin 3.4 L (3.5-5.0) g/dL Assessment and Plan Plan: Atrial flutter with rapid ventricular response Acute exacerbation of congestive heart failure Underlying history of chronic hypoxic respiratory failure requiring home oxygen use urinary tract infection. Patient started on Rocephin Underlying history of chronic obstructive pulmonary disease Underlying history of valvular heart disease with previous history of aortic valve replacement and mitral valve repair Underlying history of paroxysmal atrial fibrillation Previous history of nonsustained V. tach Previous history of supraventricular tachycardia Underlying history of rheumatoid arthritis Underlying history of hypothyroidism Underlying history of osteoarthritis At this time patient will be admitted to telemetry floor Home medications reviewed and reordered She was started on full therapeutic dose of Lovenox subcutaneously Cardiology consultation and pulmonary consultation were requested For DVT prophylaxis subcu heparin Cardiology to decide regarding need for anticoagulation Will follow closely
[2024-03-25 12:02] VITALS: BMI 28.2
[2024-03-25 12:13] VITALS: RESP 18
--- NOTE | 2024-03-25 13:22 | P.PN ---
Subjective Progress Note Date: 03/25/24 This is a 78-year-old female patient with a known history of valvular heart disease with previous aortic valve replacement and mitral valve repair, congestive heart failure, paroxysmal atrial fibrillation, chronic hypoxemic respiratory failure on home oxygen at 2 L/min, chronic obstructive pulmonary disease, coronary artery disease with previous bypass surgery. She presented here to the emergency room early this morning after a 2-week history of progressive shortness of breath, weakness and intermittent chest discomfort. Chest x-ray shows cardiomegaly with pulmonary venous congestion. No overt heart failure. Count 9.0. Hemoglobin 12.4. Platelets 245. INR 1.1. Sodium 135. Potassium 3.2. Bicarb 29. BUN 28. Creatinine 0.72. Glucose 129. proBNP 3610. Troponin 0.026. She has been initiated on DuoNeb inhalations, Bumex, Lovenox. She is seen in consultation in the emergency department. She is currently obtunded and difficult to arouse. She is maintaining O2 saturations up to 100% on 2 L nasal cannula. She is tachycardic. Mean arterial pressure 71. She is afebrile. EKG reveals atrial flutter. The patient is seen today March 23, 2024 in follow-up on the regular medical floo r. More awake and alert today. Sitting up in bed. Continue good O2 saturations in the high 90s on 2 L/min per nasal cannula. No IV fluids. White count 9.0. Hemoglobin 11.1. Platelets 246. Sodium 132. Potassium 3.1. Bicarb 29. BUN 36. Creatinine 0.83. Glucose 123. Continued on DuoNeb in halations, Symbicort. Remains on oral diuretics. Lovenox for anticoagulation. Urinalysis cloudy with many bacteria. Culture pending. The patient is seen today March 24, 2024 in follow-up on the regular medical floor. She is sitting up in bed. Awake and alert in no acute distress. She is maintaining good O2 saturations in the 90s on 2 L/min per nasal cannula. She denies any worsening shortness of breath, cough or congestion. She is complaining of constipation. She remains on DuoNeb inhalations, Symbicort, Lovenox. She remains on oral diuretics. Antibiotics in the form of ceftriaxone . Urine culture revealed no growth. The patient is seen today March 25, 2024 in follow-up on the regular medical floor. She is currently sitting up in a chair at the bedside. Awake and alert in no acute distress. Maintaining O2 saturations in the high 90s on 2 L/min per nasal cannula. She has been afebrile. Hemodynamically stable. Urine culture revealed no growth. She remains on DuoNeb inhalations, Symbicort. Remains on ceftriaxone. Continued on oral diuretics. Therapeutic Lovenox. Objective - Vital Signs Vital signs: Vital Signs Temp 96.4 F L 03/25/24 08:00 Pulse 111 H 03/25/24 12:00 Resp 18 03/25/24 12:00 BP 101/59 03/25/24 12:00 Pulse Ox 97 03/25/24 12:00 FiO2 Intake & Output 03/24/24 03/25/24 03/25/24 18:59 06:59 18:59 Intake Total 354 338 Output Total 900 1200 Balance -546 -1200 338 Weight 65.5 kg 65.5 kg Intake: Oral 354 338 Output: Urine 900 1200 Other: Voiding Method Diaper Diaper Diaper Incontinent Incontinent Incontinent # Bowel Movements 1 - Exam GENERAL EXAM: Awake, frail, cachectic 78-year-old female, up in a chair, on 2 L nasal cannula, in no acute distress. HEAD: Normocephalic. EYES: Normal reaction of pupils, equal size. NOSE: Clear with pink turbinates. THROAT: No erythema or exudates. NECK: No masses, no JVD. CHEST: No chest wall deformity. LUNGS: Equal air entry with crackles in the bilateral bases. CVS: S1 and S2 normal with no audible murmur, regular rhythm, tachycardic. ABDOMEN: No hepatosplenomegaly, normal bowel sounds, no guarding or rigidity. SPINE: No scoliosis or deformity SKIN: No rashes CENTRAL NERVOUS SYSTEM: No focal deficits, tone is normal in all 4 extremities. EXTREMITIES: There is 1+ peripheral edema. No clubbing, no cyanosis. Periphera l pulses are intact. - Labs CBC & Chem 7: 03/25/24 06:41 03/25/24 06:41 Labs: Abnormal Lab Results - Last 24 Hours (Table) 03/25/24 03/25/24 Range/Units 06:41 06:41 MCHC 30.3 L (31.0-37.0) g/dL RDW 17.2 H (11.5-15.5) % Potassium 3.2 L (3.5-5.1) mmol/L Chloride 94 L (98-107) mmol/L Carbon Dioxide 39 H (22-30) mmol/L BUN 30 H (7-17) mg/dL Albumin 3.4 L (3.5-5.0) g/dL Assessment and Plan Assessment: Altered mental status suspect secondary to urinary tract infection. Awake and alert today. Urine culture revealed no growth Atrial flutter with rapid ventricular response currently on therapeutic Lovenox Acute on chronic hypoxemic respiratory failure secondary to chronic systolic congestive heart failure History of cardiomyopathy with ejection fraction of 37%. History of atrial aortic valve replacement and mitral valve repair History of coronary disease with previous coronary bypass grafting Chronic obstructive pulmonary disease Chronic hypoxemic respiratory failure secondary to above Rheumatoid arthritis Hypothyroidism Plan: The patient was seen and evaluated Labs and medications reviewed Continue the current treatment plan Titrate the FiO2 as tolerated Plan is for ECF at discharge I have personally seen and examined the patient, performed the documentation and the assessment and plan as written. Number of minutes spent on the visit: 10.
[2024-03-26 06:36] LABS: Anisocytosis Slight; Basophils % (A) 1 %; Eosinophils # (A) 0.5 k/uL (0-0.7); Eosinophils % (A) 6 %; HCT 38.4 % (34.0-46.0); HGB 11.3 gm/dL (11.4-16.0); Hypochromasia Marked; Lymphocytes # (A) 1.7 k/uL (1.0-4.8); Lymphocytes % (A) 23 %; MCH 26.2 pg (25.0-35.0); MCHC 29.5 g/dL (31.0-37.0); MCV 88.7 fL (80.0-100.0); Mean Platelet Volume 8.3; Monocytes # (A) 0.7 k/uL (0-1.0); Monocytes % (A) 9 %; Neutrophils # (A) 4.4 k/uL (1.3-7.7); Neutrophils % (A) 58 %; Platelet Count 221 k/uL (150-450); RBC 4.33 m/uL (3.80-5.40); RDW 17.4 % (11.5-15.5); WBC 7.7 k/uL (3.8-10.6)
[2024-03-26 06:52] LABS: ALT 18 U/L (4-34); AST 32 U/L (14-36); African American GFR (CKD) >90 (>60 ml/min/1.73 sqM); Albumin 3.4 g/dL (3.5-5.0); Alkaline Phosphatase 104 U/L (38-126); Anion Gap 6 mmol/L; Blood Urea Nitrogen 31 mg/dL (7-17); Calcium 8.3 mg/dL (8.4-10.2); Carbon Dioxide 36 mmol/L (22-30); Chloride 92 mmol/L (98-107); Glucose 85 mg/dL (74-99); Non-African American GFR(CKD) 86 (>60 ml/min/1.73 sqM); Potassium 3.4 mmol/L (3.5-5.1); Sodium 134 mmol/L (137-145); Total Bilirubin 0.7 mg/dL (0.2-1.3); Total Protein 6.3 g/dL (6.3-8.2)
--- NOTE | 2024-03-26 09:29 | CDI ---
Documentation Clarification Form Date: 03/26/2024 From: Laverne Abad Phone: [phone] Admit Date: 03/25/2024 03:01:00 PM Patient Name: Mirella San Visit Number: [id number] Discharge Date: ATTENTION: The Clinical Documentation Specialists (CDI) and [facility] Coding Staff appreciate your assistance in clarifying documentation. Please respond to the clarification below the line at the bottom and electronically sign. The CDI & [facility] Coding staff will review the response and follow-up if needed. Please note: Queries are made part of the Legal Health Record. If you have any questions, please contact the author of this message via ITS. Doctor/Provider: Olya Olson MD: Your patient has the documented symptom of Altered Mental Status in the Pulmonology note 03/23. Additional clarification regarding the etiology/cause of this symptom is requested. History/Risk Factors: 78-year-old female with a history of COPD, AFib, CHF and renal disease who presents with worsening shortness of breath Clinical Indicators: 03/22 Cardiology Consult, HPI: "Patient presented to the hospital due to shortness of breath and mental status changes." 03/23 Pulmonology PN, Assessment: "Altered mental status suspect secondary to urinary tract infection. Awake and alert today." 03/23 IMPN, HPI: "03/23 she is alert and oriented x 3 in no apparent distress" 03/22, 03/23, 03/25, 03/26 Sodium: 135, 132, 137, 134 Potassium: 3.2, 3.1, 3.2, 3.4 BUN: 28, 36, 30, 31 03/22 ABGs: pH: 7.49, pO2: 127, HCO3: 31, Total CO2: 33, Base Excess: 7.2 03/22 Urinalysis: Appearance: Cloudy, Blood: Small, Leukocyte Esterase: Moderate, WBC: 16, Mucus: Rare, Yeast(budding): Moderate 03/22 Urine Culture: Apparent skin and/or genital komal Treatment: Rocephin 1gram [id number] start 03/24 Please clarify the etiology of the symptom of Altered Mental Status: [ x] Metabolic Encephalopathy due to UTI, abnormal sodium and potassium, abnormal ABG [ ] Other condition (please specify) [ ] Unable to determine MTDD
[2024-03-26] MEDS ORDERED: Potassium Replacement Protocol 1 EACH MISC MISCELLANE PRN (11:03)
--- NOTE | 2024-03-26 11:04 | P.DS ---
Providers Date of admission: 03/25/24 15:01 Expected date of discharge: 03/26/24 Attending physician: Olya Olson Consults: 03/22/24 10:17 Consult Physician Routine Consulting Provider: Liv Peralta Consult Reason/Comments: COPD Do you want consulting provider notified?: Yes Primary care physician: Olya Olson [facility] Course: discharge diagnosis Atrial flutter with rapid ventricular response Acute exacerbation of congestive heart failure Underlying history of chronic hypoxic respiratory failure requiring home oxygen use urinary tract infection. Patient started on Rocephin Underlying history of chronic obstructive pulmonary disease Underlying history of valvular heart disease with previous history of aortic valve replacement and mitral valve repair Underlying history of paroxysmal atrial fibrillation Previous history of nonsustained V. tach Previous history of supraventricular tachycardia Underlying history of rheumatoid arthritis Underlying history of hypothyroidism Underlying history of osteoarthritis Hospital course Mirella San, is an 78-year-old female who presented to [facility] emergency room with a chief complaint of worsening shortness of breath She was evaluated in the emergency room vital examination on presentation revealed a temperature of 97.2 pulse 126 respiration 20 blood pressure 120/69 pulse ox 97% on 2 L nasal cannula Laboratory data reveals a white blood count of 9.0 hemoglobin 12.4 platelet count 245 BUN 28 creatinine 0.72 potassium 3.2 lactic acid 3.1 Testing in the emergency room revealed chest x-ray revealed evidence of cardiomegaly with pulmonary venous congestion, EKG revealed atrial flutter with rapid ventricular response Patient was admitted to medical floor for further evaluation and treatment, cardiology and pulmonary consultation was requested On 03/23/2024 patient was seen and examined on the medical floor she is alert and oriented x 3 in no apparent distress, she reports some improvement in her shortness of breath otherwise she denies any complaints there is no fever or chills no headache or dizziness no chest pain no cough no nausea or vomiting no abdominal pain no diarrhea and no urinary symptoms on 03/24/2024 patient is alert and oriented 3.Patient was started on Rocephin for urinary tract infection. Concerns per social work about compliance and living conditions.current vital signs temp 98.3, heart rate 81, respiratory rate 18, blood pressure 88/56 with pulse ox 95% on 2 L. Patient denies chest pain or shortness breath. Patient denies nausea vomiting or diarrhea. Denies any urinary burning or frequency On 05/26/2024 patient is alert and oriented 3. Discussed case with case management discharge planning to [facility]. Patient is agreeable at this time. Patient remains on IV Rocephin for urinary tract infection. Current vital signs temp 98.3, heart rate 95, respiratory rate 19, blood pressure any 7/62 with pulse ox 99% on 2 L. Patient denies chest pain or shortness breath. Patient denies nausea vomiting or diarrhea. Patient denies any urinary burning or frequency. on 03/26/2024 patient's alert and oriented 3. Patient has been cleared for discharge from cardiology and pulmonary services. Per case management patient discharge plan to [facility]. Per cardiology no need for antic oagulation secondary to left atrial appendage. Patient was started on by mouth metoprolol twice daily. This time patient denies chest pain or shortness of breath. Patient denies nausea vomiting or diarrhea. Patient denies any urinary burning or frequency Patient Condition at Discharge: Stable Plan - Discharge Summary Discharge Rx Participant: Yes New Discharge Prescriptions: No Action Aspirin 81 mg PO DAILY 30 Days #30 tab Ascorbic Acid [Vitamin C] 500 mg PO DAILY 30 Days #30 tab Cholecalciferol (Vitamin D3) [Vitamin D3 (125 MCG = 5,000 IU)] 125 mcg PO DAILY 30 Days #30 cap Empagliflozin [Jardiance] 10 mg PO DAILY 30 Days #30 tablet Bumetanide [BUMEX] 1 mg PO DAILY@1600 Ipratropium-Albuterol Nebulize [Duoneb 0.5 mg-3 mg/3 ml Soln] 3 ml INHALATION RT-Q6H PRN PRN Reason: Shortness Of Breath Levothyroxine Sodium [Synthroid] 150 mcg PO DAILY Bumetanide [BUMEX] 2 mg PO DAILY@0900 HYDROcodone/APAP 10-325MG [[place] 10-325] 1 tab PO Q8H PRN 3 Days #12 tab PRN Reason: Pain ALPRAZolam [Xanax] 0.25 mg PO HS PRN 3 Days #3 tab PRN Reason: Anxiety Discharge Medication List Ascorbic Acid [Vitamin C] 500 mg PO DAILY 30 Days #30 tab 11/05/23 [Rx] Aspirin 81 mg PO DAILY 30 Days #30 tab 11/05/23 [Rx] Cholecalciferol (Vitamin D3) [Vitamin D3 (125 MCG = 5,000 IU)] 125 mcg PO DAILY 30 Days #30 cap 11/05/23 [Rx] Ipratropium-Albuterol Nebulize [Duoneb 0.5 mg-3 mg/3 ml Soln] 3 ml INHALATION RT-Q6H PRN 11/20/23 [History] Levothyroxine Sodium [Synthroid] 150 mcg PO DAILY 11/20/23 [History] Empagliflozin [Jardiance] 10 mg PO DAILY 30 Days #30 tablet 12/31/23 [Rx] Bumetanide [BUMEX] 1 mg PO DAILY@1600 02/11/24 [History] Bumetanide [BUMEX] 2 mg PO DAILY@0900 02/11/24 [History] ALPRAZolam [Xanax] 0.25 mg PO HS PRN 3 Days #3 tab 02/18/24 [Rx] HYDROcodone/APAP 10-325MG [[place] 10-325] 1 tab PO Q8H PRN 3 Days #12 tab 02/18/24 [Rx] Follow up Appointment(s)/Referral(s): [facility] [[facility]] - Olya Olson MD [Primary Care Provider] - 1-2 days Activity/Diet/Wound Care/Special Instructions: Make sure you answer your phone when [facility] calls.
[2024-03-26] MEDS: POTASSIUM CHLORIDE ER 20 MEQ TAB.ER PO SCH (11:17)
--- NOTE | 2024-03-26 12:12 | P.PN ---
Subjective Progress Note Date: 03/26/24 Principal diagnosis: Shortness of breath. This is a 78-year-old female patient with a known history of valvular heart disease with previous aortic valve replacement and mitral valve repair, congestive heart failure, paroxysmal atrial fibrillation, chronic hypoxemic respiratory failure on home oxygen at 2 L/min, chronic obstructive pulmonary disease, coronary artery disease with previous bypass surgery. She presented here to the emergency room early this morning after a 2-week history of progressive shortness of breath, weakness and intermittent chest discomfort. Chest x-ray shows cardiomegaly with pulmonary venous congestion. No overt heart failure. Count 9.0. Hemoglobin 12.4. Platelets 245. INR 1.1. Sodium 135. Potassium 3.2. Bicarb 29. BUN 28. Creatinine 0.72. Glucose 129. proBNP 3610. Troponin 0.026. She has been initiated on DuoNeb inhalations, Bumex, Lovenox. She is seen in consultation in the emergency department. She is currently obtunded and difficult to arouse. She is maintaining O2 saturations up to 100% on 2 L nasal cannula. She is tachycardic. Mean arterial pressure 71. She is afebrile. EKG reveals atrial flutter. The patient is seen today March 23, 2024 in follow-up on the regular medical floor. More awake and alert today. Sitting up in bed. Continue good O2 saturations in the high 90s on 2 L/min per nasal cannula. No IV fluids. White count 9.0. Hemoglobin 11.1. Platelets 246. Sodium 132. Potassium 3.1. Bicarb 29. BUN 36. Creatinine 0.83. Glucose 123. Continued on DuoNeb inhalations, Symbicort. Remains on oral diuretics. Lovenox for anticoagulation. Urinalysis cloudy with many bacteria. Culture pending. The patient is seen today March 24, 2024 in follow-up on the regular medical floor. She is sitting up in bed. Awake and alert in no acute distress. She is maintaining good O2 saturations in the 90s on 2 L/min per nasal cannula. She denies any worsening shortness of breath, cough or congestion. She is complaining of constipation. She remains on DuoNeb inhalations, Symbicort, Lovenox. She remains on oral diuretics. Antibiotics in the form of ceftriaxone. Urine culture revealed no growth. The patient is seen today March 25, 2024 in follow-up on the regular medical floor. She is currently sitting up in a chair at the bedside. Awake and alert in no acute distress. Maintaining O2 saturations in the high 90s on 2 L/min per nasal cannula. She has been afebrile. Hemodynamically stable. Urine culture revealed no growth. She remains on DuoNeb inhalations, Symbicort. Remains on ceftriaxone. Continued on oral diuretics. Therapeutic Lovenox. Progress note dated March 26, 2024. The patient was seen today in room 377. The patient will likely be discharged home in the next 24 hours or so. The patient will be likely be discharged to a local fci. The patient was at [facility], but apparently left, without telling anybody, leaving all of her close, another possessions at [facility]. She apparently has not allowed back on [facility] according to the shoe planner. Currently, she is on 2 L. She looks really stable. Her breathing is much improved. Current labs include a white count 7.7, hemoglobin 9.3, hematocrit 38.4, and a normal platelet count. Sodium 134, potassium 3.4, chlorides 92, CO2 36, BUN 31, and creatinine 0.62. Glucose is 85. Albumin is 3.4. Objective - Vital Signs Vital signs: Vital Signs Temp 98.2 F 03/26/24 11:15 Pulse 53 L 03/26/24 11:15 Resp 18 03/26/24 11:15 BP 88/55 03/26/24 11:15 Pulse Ox 100 03/26/24 11:15 FiO2 Intake & Output 03/25/24 03/26/24 03/26/24 18:59 06:59 18:59 Intake Total 810 480 358 Output Total 700 600 175 Balance 110 -120 183 Weight 65.5 kg 46.6 kg Intake: Oral 810 480 358 Output: Urine 700 600 175 Other: Voiding Method Diaper Diaper Diaper Incontinent Incontinent Incontinent External Catheter External Catheter - Exam No acute distress, oriented 3. Currently on 2 L. No conversational dyspnea or use of accessory muscles. HEENT examination is grossly unremarkable. Mucous membranes are moist. No oral lesions. Neck supple. Full range of motion. No adenopathy thyromegaly or neck vein distention. Cardiovascular examination reveals regular rhythm rate. S1-S2 normal. No S3 or S4. No discernible murmur noted. Heart rate 53 bpm. Heart sounds are distant. Lungs reveal mostly clear breath sounds. Minimal rhonchi. No wheezes. No crackles. Breath sounds equal bilaterally. 2 L saturation is 100%. Abdomen soft bowel sounds are heard. No masses or tenderness. Extremities are intact. No cyanosis clubbing or edema. Skin is without rash or lesion. Neurologic examination is brief but nonfocal. - Labs CBC & Chem 7: 03/26/24 05:54 03/26/24 05:54 Labs: Abnormal Lab Results - Last 24 Hours (Table) 03/26/24 03/26/24 Range/Units 05:54 05:54 Hgb 11.3 L (11.4-16.0) gm/dL MCHC 29.5 L (31.0-37.0) g/dL RDW 17.4 H (11.5-15.5) % Sodium 134 L (137-145) mmol/L Potassium 3.4 L (3.5-5.1) mmol/L Chloride 92 L (98-107) mmol/L Carbon Dioxide 36 H (22-30) mmol/L BUN 31 H (7-17) mg/dL Calcium 8.3 L (8.4-10.2) mg/dL Albumin 3.4 L (3.5-5.0) g/dL Assessment and Plan Assessment: Altered mental status, suspect secondary to urinary tract infection. Atrial flutter with rapid ventricular response. Acute on chronic hypoxemic respiratory failure secondary to chronic systolic congestive heart failure. History of cardiomyopathy with ejection fraction of 37%.. History of atrial aortic valve replacement and mitral valve repair. History of coronary disease with previous coronary bypass grafting. Chronic obstructive pulmonary disease. Chronic hypoxemic respiratory failure secondary to above. Rheumatoid arthritis. Hypothyroidism. Plan: Plan dated March 26, 2024. The patient is doing well. She continues on 2 L of oxygen. Saturations are 100%. The patient is being evaluated for possible discharge. No additional recommendations are made. Labs, x-rays, and medications are reviewed. The patient will likely go to a local f[facility]. No additional recommendations are made at this time. Time with Patient: Less than 30
[2024-03-26] MEDS: ALPRAZolam 0.25 MG TAB PO PRN (20:27)
[2024-03-27] MEDS: HYDROcodone/APAP 10-325MG 1 EACH TAB PO PRN (00:35)
--- NOTE | 2024-03-27 10:50 | P.PN ---
Subjective Progress Note Date: 03/27/24 This is a 78-year-old female patient with a known history of valvular heart disease with previous aortic valve replacement and mitral valve repair, congestive heart failure, paroxysmal atrial fibrillation, chronic hypoxemic respiratory failure on home oxygen at 2 L/min, chronic obstructive pulmonary disease, coronary artery disease with previous bypass surgery. She presented here to the emergency room early this morning after a 2-week history of progressive shortness of breath, weakness and intermittent chest discomfort. Chest x-ray shows cardiomegaly with pulmonary venous congestion. No overt heart failure. Count 9.0. Hemoglobin 12.4. Platelets 245. INR 1.1. Sodium 135. Potassium 3.2. Bicarb 29. BUN 28. Creatinine 0.72. Glucose 129. proBNP 3610. Troponin 0.026. She has been initiated on DuoNeb inhalations, Bumex, Lovenox. She is seen in consultation in the emergency department. She is currently obtunded and difficult to arouse. She is maintaining O2 saturations up to 100% on 2 L nasal cannula. She is tachycardic. Mean arterial pressure 71. She is afebrile. EKG reveals atrial flutter. The patient is seen today March 23, 2024 in follow-up on the regular medical floo r. More awake and alert today. Sitting up in bed. Continue good O2 saturations in the high 90s on 2 L/min per nasal cannula. No IV fluids. White count 9.0. Hemoglobin 11.1. Platelets 246. Sodium 132. Potassium 3.1. Bicarb 29. BUN 36. Creatinine 0.83. Glucose 123. Continued on DuoNeb in halations, Symbicort. Remains on oral diuretics. Lovenox for anticoagulation. Urinalysis cloudy with many bacteria. Culture pending. The patient is seen today March 24, 2024 in follow-up on the regular medical floor. She is sitting up in bed. Awake and alert in no acute distress. She is maintaining good O2 saturations in the 90s on 2 L/min per nasal cannula. She denies any worsening shortness of breath, cough or congestion. She is complaining of constipation. She remains on DuoNeb inhalations, Symbicort, Lovenox. She remains on oral diuretics. Antibiotics in the form of ceftriaxone . Urine culture revealed no growth. The patient is seen today March 25, 2024 in follow-up on the regular medical floor. She is currently sitting up in a chair at the bedside. Awake and alert in no acute distress. Maintaining O2 saturations in the high 90s on 2 L/min per nasal cannula. She has been afebrile. Hemodynamically stable. Urine culture revealed no growth. She remains on DuoNeb inhalations, Symbicort. Remains on ceftriaxone. Continued on oral diuretics. Therapeutic Lovenox. The patient is seen today March 27, 2024 in follow-up on the regular medical floor. She is currently sitting up in bed. Awake and alert in no acute distress. Maintaining good O2 saturations in the 90s on 2 L/min per nasal cannula. No IV fluids. She remains on DuoNeb ventilations, Symbicort. Remains on oral diuretics. Remains on Lovenox. Antibiotics in the form of ceftriaxone. Urine culture revealed no growth. No new labs today. Objective - Vital Signs Vital signs: Vital Signs Temp 97.4 F L 03/27/24 09:17 Pulse 110 H 03/27/24 10:00 Resp 18 03/27/24 09:17 BP 95/53 03/27/24 09:17 Pulse Ox 99 03/27/24 09:17 FiO2 Intake & Output 03/26/24 03/27/24 03/27/24 18:59 06:59 18:59 Intake Total 716 110 Output Total 1150 700 Balance -434 -700 110 Weight 45.9 kg Intake: Oral 716 110 Output: Urine 1150 700 Other: Voiding Method Diaper Diaper Diaper Incontinent Incontinent Incontinent External Catheter External Catheter External Catheter # Voids 1 # Bowel Movements 1 - Exam GENERAL EXAM: Awake, frail, cachectic 78-year-old female, on 2 L nasal cannula, in no acute distress. HEAD: Normocephalic. EYES: Normal reaction of pupils, equal size. NOSE: Clear with pink turbinates. THROAT: No erythema or exudates. NECK: No masses, no JVD. CHEST: No chest wall deformity. LUNGS: Equal air entry with crackles in the bilateral bases. CVS: S1 and S2 normal with no audible murmur, regular rhythm, tachycardic. ABDOMEN: No hepatosplenomegaly, normal bowel sounds, no guarding or rigidity. SPINE: No scoliosis or deformity SKIN: No rashes CENTRAL NERVOUS SYSTEM: No focal deficits, tone is normal in all 4 extremities. EXTREMITIES: There is 1+ peripheral edema. No clubbing, no cyanosis. Peripheral pulses are intact. - Labs CBC & Chem 7: 03/26/24 05:54 03/26/24 05:54 Assessment and Plan Assessment: Altered mental status suspect secondary to urinary tract infection. Awake and alert today. Urine culture revealed no growth Atrial flutter with rapid ventricular response currently on therapeutic Lovenox Acute on chronic hypoxemic respiratory failure secondary to chronic systolic congestive heart failure History of cardiomyopathy with ejection fraction of 37%. History of atrial aortic valve replacement and mitral valve repair History of coronary disease with previous coronary bypass grafting Chronic obstructive pulmonary disease Chronic hypoxemic respiratory failure secondary to above Rheumatoid arthritis Hypothyroidism Plan: The patient was seen and evaluated Medications reviewed Continue the current treatment plan Titrate the FiO2 as tolerated Plan is for the Elaine possibly today I have personally seen and examined the patient, performed the documentation and the assessment and plan as written. Number of minutes spent on the visit: 10.
[2024-03-27 11:56] VITALS: BP 103/65; TEMP 97.3
--- NOTE | 2024-03-27 12:19 | P.PN ---
Subjective Progress Note Date: 03/27/24 Mirella San, is an 78-year-old female who presented to [facility] emergency room with a chief complaint of worsening shortness of breath She was evaluated in the emergency room vital examination on presentation revealed a temperature of 97.2 pulse 126 respiration 20 blood pressure 120/69 pulse ox 97% on 2 L nasal cannula Laboratory data reveals a white blood count of 9.0 hemoglobin 12.4 platelet count 245 BUN 28 creatinine 0.72 potassium 3.2 lactic acid 3.1 Testing in the emergency room revealed chest x-ray revealed evidence of cardiomegaly with pulmonary venous congestion, EKG revealed atrial flutter with rapid ventricular response Patient was admitted to medical floor for further evaluation and treatment, cardiology and pulmonary consultation was requested On 03/23/2024 patient was seen and examined on the medical floor she is alert and oriented x 3 in no apparent distress, she reports some improvement in her shortness of breath otherwise she denies any complaints there is no fever or chills no headache or dizziness no chest pain no cough no nausea or vomiting no abdominal pain no diarrhea and no urinary symptoms on 03/24/2024 patient is alert and oriented 3.Patient was started on Rocephin for urinary tract infection. Concerns per social work about compliance and living conditions.current vital signs temp 98.3, heart rate 81, respiratory rate 18, blood pressure 88/56 with pulse ox 95% on 2 L. Patient denies chest pain or shortness breath. Patient denies nausea vomiting or diarrhea. Denies any urinary burning or frequency On 03/25/2024 patient is alert and oriented 3. Discussed case with case management discharge planning to [facility]. Patient is agreeable at this time. Patient remains on IV Rocephin for urinary tract infection. Current vital signs temp 98.3, heart rate 95, respiratory rate 19, blood pressure any 7/62 with pulse ox 99% on 2 L. Patient denies chest pain or shortness breath. Patient denies nausea vomiting or diarrhea. Patient denies any urinary burning or frequency. On 03/27/2024 patient was seen and examined on the medical floor she is alert and oriented x 3 in no apparent distress there is no fever or chills no headache or dizziness no chest pain or shortness of breath is improving gradually no cough no nausea or vomiting no abdominal pain no diarrhea no urinary symptoms. Discharge was placed yesterday at this time we are awaiting case management for further arrangement to transfer patient to [facility] Objective - Vital Signs Vital signs: Vital Signs Temp 97.4 F L 03/27/24 09:17 Pulse 110 H 03/27/24 10:00 Resp 18 03/27/24 09:17 BP 95/53 03/27/24 09:17 Pulse Ox 99 03/27/24 09:17 FiO2 Intake & Output 03/26/24 03/27/24 03/27/24 18:59 06:59 18:59 Intake Total 716 110 Output Total 1150 700 Balance -434 -700 110 Weight 45.9 kg Intake: Oral 716 110 Output: Urine 1150 700 Other: Voiding Method Diaper Diaper Diaper Incontinent Incontinent Incontinent External Catheter External Catheter External Catheter # Voids 1 # Bowel Movements 1 - Exam In general patient is alert and oriented x 3 in no distress HEENT head normocephalic and atraumatic Neck is supple no JVD no goiter no lymphadenopathy no carotid bruit Chest examination reveals a scattered crackles bilaterally no wheezing Cardiac exam reveals irregular heart sounds S1 and S2 with a 3/6 systolic murmur in the left sternal border Abdomen is soft nontender no organomegaly with normal bowel sounds Extremity exam reveals no edema no cyanosis or clubbing Neurological examination reveals no gross focal deficits - Labs CBC & Chem 7: 03/26/24 05:54 03/26/24 05:54 Assessment and Plan Plan: Atrial flutter with rapid ventricular response Acute exacerbation of congestive heart failure Underlying history of chronic hypoxic respiratory failure requiring home oxygen use urinary tract infection. Patient started on Rocephin Underlying history of chronic obstructive pulmonary disease Underlying history of valvular heart disease with previous history of aortic valve replacement and mitral valve repair Underlying history of paroxysmal atrial fibrillation Previous history of nonsustained V. tach Previous history of supraventricular tachycardia Underlying history of rheumatoid arthritis Underlying history of hypothyroidism Underlying history of osteoarthritis At this time patient will be admitted to telemetry floor Home medications reviewed and reordered She was started on full therapeutic dose of Lovenox subcutaneously Cardiology consultation and pulmonary consultation were requested For DVT prophylaxis subcu heparin Cardiology to decide regarding need for anticoagulation Will follow closely
[2024-03-27 13:04] VITALS: PULSE 102
== END 2024-03-27 15:08 | DRG 291 ==
LOC: EC 06:13 → 6NMEDSUR 08:08 → 3SCARD 12:01 → OBSVTOIN 03-25 15:01 → 3SCARD 03-27 02:38
PROVIDERS: ADMIT Internal Medicine; ATTEND Internal Medicine
DX: I50.23 Acute on chronic systolic (congestive) heart failure (principal); G93.41 Metabolic encephalopathy; J96.21 Acute and chronic respiratory failure with hypoxia; I48.19 Other persistent atrial fibrillation; I42.8 Other cardiomyopathies; I48.3 Typical atrial flutter; N39.0 Urinary tract infection, site not specified; I47.10 Supraventricular tachycardia, unspecified; E89.0 Postprocedural hypothyroidism; I07.1 Rheumatic tricuspid insufficiency; M19.90 Unspecified osteoarthritis, unspecified site; I27.20 Pulmonary hypertension, unspecified; I25.10 Atherosclerotic heart disease of native coronary artery without angina pectoris; J44.9 Chronic obstructive pulmonary disease, unspecified; K21.9 Gastro-esophageal reflux disease without esophagitis; K59.00 Constipation, unspecified; M06.9 Rheumatoid arthritis, unspecified; Z95.1 Presence of aortocoronary bypass graft; Z99.81 Dependence on supplemental oxygen; Z95.3 Presence of xenogenic heart valve; Z79.82 Long term (current) use of aspirin; Z79.84 Long term (current) use of oral hypoglycemic drugs; Z79.890 Hormone replacement therapy; Z79.899 Other long term (current) drug therapy; Z87.442 Personal history of urinary calculi; Z87.891 Personal history of nicotine dependence; Z96.642 Presence of left artificial hip joint; Z96.653 Presence of artificial knee joint, bilateral; Z96.611 Presence of right artificial shoulder joint; Z71.3 Dietary counseling and surveillance
CPT/HCPCS: 36415; 36600; 71046; 80053; 81001; 82805; 83605; 83735; 83880; 84484; 85025; 85610; 85730; 87086; 93005; 94640; 94760; 96372; 96374; 96375; 99285